=== PATIENT | male | born 1945 | race Caucasian/White ===

== ENCOUNTER 2022-11-19 11:39 | Outpatient (OUT) | payer MEDICARE, SELFPAY ==
[2022-11-19 12:16] LABS: Basophils Absolute Auto 0.1 10^3/uL (0.0-0.1); Basophils Percent Auto 0.8 % (0.2-2.0); Eosinophils Absolute Auto 0.8 10^3/uL (0.0-0.7); Eosinophils Percent Auto 12.2 % (0.9-7.0); Hemoglobin 13.9 g/dL (14.0-18.0); Immature Granulocytes Abs Auto 0.03 10^3/uL (0.00-0.03); Immature Granulocytes Pct Auto 0.5 % (0.0-0.5); Lymphocytes Absolute Auto 1.7 10^3/uL (1.2-3.8); Lymphocytes Percent Auto 25.5 % (20.5-60.0); Mean Corpuscular HGB Conc 33.9 g/dL (29.9-35.2); Mean Corpuscular Hemoglobin 32.2 pg (25.9-34.0); Mean Corpuscular Volume 94.9 fL (80.0-94.0); Mean Platelet Volume 9.2 fL (9.5-13.5); Monocytes Absolute Auto 0.6 10^3/uL (0.3-0.8); Neutrophils Absolute Auto 3.5 10^3/uL (1.4-6.5); Platelet Count 194 10^3/uL (150-450); Red Blood Count 4.32 10^6/uL (4.70-6.10); White Blood Count 6.7 10^3/uL (4.0-11.0)
[2022-11-19 13:27] LABS: Estimated Average Glucose 103 mg/dL; Glycohemoglobin A1C 5.2 % (4.5-6.2)
[2022-11-19 13:34] LABS: Alanine Aminotransferase 17 U/L (16-63); Albumin Globulin Ratio 1.1; Albumin Level 3.7 g/dL (3.4-5.0); Alkaline Phosphatase 42 U/L (46-116); Anion Gap 8.2; Aspartate Amino Transferase 15 U/L (15-37); BUN Creatinine Ratio 18.3; Bilirubin Total 0.7 mg/dL (0.2-1.0); Calcium 9.9 mg/dL (8.5-10.1); Carbon Dioxide 32.7 mmol/L (21.0-32.0); Chloride 106 mmol/L (98-107); Chol HDL Ratio 3.3; Cholesterol 164 mg/dL (<=200); Estimated GFR (African America >60 (>=60); Estimated GFR (Non-African Ame >60 (>=60); Free T3 2.34 pg/mL (2.18-3.98); Globulin 3.3 g/dL; Glucose 100 mg/dL (74-106); HDL Cholesterol 50 mg/dL (40-60); Potassium 3.9 mmol/L (3.5-5.1); Sodium 143 mmol/L (136-145); Thyroid Stimulating Hormone 0.999 uIU/mL (0.358-3.740); Triglycerides 90 mg/dL (<=150)
== END 2022-11-19 11:40 | disposition home or self-care (01) ==
PROVIDERS: PCP Family Medicine; Visit Provider Family Medicine
DX: J44.9 Chronic obstructive pulmonary disease, unspecified (principal); I10 Essential (primary) hypertension; E78.00 Pure hypercholesterolemia, unspecified; E78.5 Hyperlipidemia, unspecified; R73.09 Other abnormal glucose
CPT/HCPCS: 36415; 80053; 80061; 83036; 84436; 84443; 84481; 85025

== ENCOUNTER 2023-03-24 08:38 | Outpatient (OUT) | payer MEDICARE, SELFPAY ==
--- NOTE | 2023-03-24 08:41 | CT_ITS ---
[address] [address] Patient Name: JM BARROW MRN: [id number] date: 1945 Sex: M Assigned Patient Location: CT Current Patient Location: CT Accession/Order Number: [id number] Exam Date: 03/24/2023 08:47 Report Date: 03/24/2023 10:02 At the request of: ARLINE OROSCO Procedure: CT chest wo con EXAMINATION: CT chest wo con HISTORY: Bronchiectasis With Exacerbation J47.1 COMPARISON: CT chest 03/18/2022 TECHNIQUE: Multi-planar CT images were obtained without and/or with IV contrast as indicated by examination type. Axial, Coronal, and Sagittal images. Dose reduction techniques were achieved by using automated exposure control and/or adjustment of mA and/or kV according to patient size and/or use of iterative reconstruction technique. FINDINGS: LUNGS: Mild to moderate emphysematous changes and borderline bronchiectasis. A few calcified nodules, largest is left upper lobe, 6 mm. No acute infiltrates. PLEURA: No mass, effusion, or pneumothorax. VASCULATURE: No abnormality. MARISA: No mass or adenopathy. MEDIASTINUM: No mass or adenopathy. CARDIAC: No enlargement, pericardial thickening, or significant calcification. AORTA: No aneurysm or dissection. CHEST WALL: No mass or axillary adenopathy. BONES: Stable kyphosis and mild anterior wedging of several midthoracic vertebral bodies. No acute fractures. LIMITED ABDOMEN: Stable small right hepatic lobe cyst. Limited images of the upper abdomen. OTHER: Negative. CT/CT chest wo con IMPRESSION: 1. Slight progression of chronic emphysematous changes. No acute infiltrates. 2. Stable nodules favoring chronic granulomatous disease. Electronically authenticated by: BANDAR CHAMBERS Date: 03/24/2023 10:02
--- NOTE | 2023-03-24 08:42 | US_ITS ---
The [address] [address] Patient Name: JM BARROW MRN: [id number] date: 1945 Sex: M Assigned Patient Location: CT Current Patient Location: CT Accession/Order Number: [id number] Exam Date: 03/24/2023 08:45 Report Date: 03/24/2023 10:08 At the request of: ARLINE OROSCO Procedure: US abdominal aortic aneurysm EXAM: US abdominal aortic aneurysm HISTORY: . Abdominal Aortic Aneurysm I71.40 . COMPARISON: None. TECHNIQUE: Bermudez scale and color imaging was performed FINDINGS: Scanning of the aorta demonstrates the proximal aorta to measure 1.4 x 1.6 cm, mid aorta 1.1 x 1.3 cm, and the distal aorta 3.5 x 3.5 cm. There is color flow throughout the aorta. Right iliac measures 1 cm and left iliac 0.8 cm. US/US abdominal aortic aneurysm IMPRESSION: 1. Slight dilatation of the distal abdominal aorta which measures 3.5 x 3.5 cm. 2. Early atherosclerotic changes of the abdominal aorta. Electronically authenticated by: SKINNY ELDER Date: 03/24/2023 10:08
== END 2023-03-24 08:39 | disposition home or self-care (01) ==
LOC: CT 08:39
PROVIDERS: PCP Family Medicine; Visit Provider Family Medicine
DX: J47.1 Bronchiectasis with (acute) exacerbation (principal); I71.40 Abdominal aortic aneurysm, without rupture, unspecified
CPT/HCPCS: 71250; 76775

== ENCOUNTER 2023-03-31 11:09 | Outpatient (REF) | payer MEDICARE, SELFPAY | END 2023-03-31 11:10 | disposition home or self-care (01) | LOC: LAB 11:09 | PROVIDERS: PCP Family Medicine; Visit Provider Family Medicine | DX: K62.5 Hemorrhage of anus and rectum (principal); Z12.12 Encounter for screening for malignant neoplasm of rectum | CPT/HCPCS: 87045; 87046; 87427; 87493 ==

== ENCOUNTER 2023-04-25 16:46 | Outpatient (OUT) | payer MEDICARE, SELFPAY ==
[2023-04-25 17:10] LABS: Anion Gap 13.8; BUN Creatinine Ratio 25.9; Calcium 9.5 mg/dL (8.5-10.1); Carbon Dioxide 30.2 mmol/L (21.0-32.0); Chloride 104 mmol/L (98-107); Estimated GFR (African America >60 (>=60); Estimated GFR (Non-African Ame >60 (>=60); Glucose 120 mg/dL (74-106); Magnesium 1.9 mg/dL (1.8-2.4); Sodium 144 mmol/L (136-145)
== END 2023-04-25 16:47 | disposition home or self-care (01) ==
LOC: LAB 16:48
PROVIDERS: PCP Family Medicine; Visit Provider Family Medicine
DX: R25.2 Cramp and spasm (principal); I10 Essential (primary) hypertension
CPT/HCPCS: 36415; 80048; 83735

== ENCOUNTER 2023-05-16 12:49 | Emergency (ER) | payer MEDICARE, SELFPAY ==
[2023-05-16 13:02] VITALS: BP 98/64; PULSE 81; RESP 24; TEMP 36.7; O2SAT 100; BMI 25.1
--- OUTSIDE RECORDS SUMMARY | 2023-05-16 13:06 | XMS_ITS | CCD ---
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 Name Role Phone PHYSICIAN, DEFAULT Unavailable Unavailable PHYSICIAN, DEFAULT Unavailable Unavailable Arline Orosco MD Primary Care Provider [phone] Dawna Patrick Unavailable [phone] Arline Orosco MD Primary Care Provider [phone] Dawna Patrick Unavailable Arline Orosco MD Primary Care Provider [phone] Dawna Patrick Unavailable Jose Francisco Broussard MD Unavailable [place] SOMMERSDRILL PRESS OPERATOR, Helen Unavailable Etta PROCTOR, Umer Unavailable Arline Orosco MD Primary Care Provider [phone] LEROY SHAW Admitting Unavailable YAMILALEROY VELIZ Consulting Unavailable LEROY SHAW Attending Unavailable KWESI ., DR NUNN Primary Care Unavailable HOY ., DR NUNN Consulting Unavailable HOY ., DR NUNN Attending Unavailable HOY ., DR NUNN Admitting Unavailable HOY ., DR NUNN Primary Care Unavailable JESSICA ., DR ACKERMAN Consulting Unavailable RICHY ROUSSEAU Consulting Unavailable KWESI ., DR NUNN Primary Care Unavailable MEGAN, DR DONTE Rocha Attending Unavailable ENGELER, DR DONTE Rocha Admitting Unavailable MEGAN, DR DONTE Rocha Consulting Unavailable KWESI ., DR NUNN Primary Care Unavailable TWANY ., DR NUNN Consulting Unavailable HOY ., DR NUNN Admitting Unavailable HOY ., DR NUNN Attending Unavailable HOY ., DR NUNN Primary Care Unavailable HOY ., DR NUNN Consulting Unavailable HOY ., DR NUNN Attending Unavailable HOY ., DR NUNN Admitting Unavailable YAMILA, LEROY Consulting Unavailable YAMILA, LEROY Attending Unavailable YAMILA, LEROY Admitting Unavailable HOY ., DR NUNN Primary Care Unavailable HOY ., DR NUNN Consulting Unavailable HOY ., DR NUNN Attending Unavailable HOY ., DR NUNN Primary Care Unavailable HOY ., DR NUNN Admitting Unavailable WEST, DR SKINNY Hoyt Consulting Unavailable HOY ., DR NUNN Consulting Unavailable HOY ., DR NUNN Attending Unavailable HOY ., DR NUNN Primary Care Unavailable HOY ., DR NUNN Admitting Unavailable WEST, DR SKINNY Hoyt Consulting Unavailable HOY ., DR NUNN Consulting Unavailable HOY ., DR NUNN Attending Unavailable HOY ., DR NUNN Primary Care Unavailable HOY ., DR NUNN Admitting Unavailable RYLEE LOPEZ Attending Unavailable JOHN, RYLEE Admitting Unavailable RYLEE LOPEZ Consulting Unavailable HOY ., DR NUNN Primary Care Unavailable JOHN, RYLEE Consulting Unavailable DIAB ., SAGE Attending Unavailable DIAB ., SAGE Admitting Unavailable HOY ., DR NUNN Primary Care Unavailable RONDA ALBRIGHT Consulting Unavailable DIAB ., SAGE Consulting Unavailable ARLINE OROSCO Primary Care Unavailable DONTE GUZMAN Referring Unavaila ble Arline Orosco Unavailable Unavailable Unavailable MD Arline Orosco Primary Care Provider [phone] MD Clarence Gregory Attending Provider Baldo Gifford Referring Unavailable Dr. Arline Orosco Primary Care Unavail able Baldo Gifford Attending Unavailable Baldo Gifford Referring Unavailable Dr. Arline Orosco Primary Care Unavail able Baldo Gifford Attending Unavailable Etta RN, Umer Unavailable Arline Orosco Primary Care Unavailable Clarence Gregory Admitting Unavailable Clarence Gregory Attending Unavailable Baldo Gifford Attending Unavail able Arline Orosco Primary Care Unavailable Baldo Gifford Admitting Unavail able BARB KIRAN Referring Unavailable ARLINE OROSCO Primary Care Unavailable Ace GUZMAN Attending Unavailable ARLINE OROSCO Primary Care Unavailable MANNY MEZA Attending Unavailable Ace GUZMAN Referring Unavailable HOY, ARLINE M Primary Care Unavailable HOY, ARLINE M Primary Care Unavailable HOY, ARLINE M Primary Care Unavailable JAMES ROBB Referring Unavailable HOY, ARLINE M Primary Care Unavailable HOY, ARLINE M Primary Care Unavailable JOSE FRANCISCO BROUSSARD Attending Unavailable HOY, ARLINE M Primary Care Unavailable JOSE FRANCISCO BROUSSARD Attending Unavailable HOY, ARLINE M Primary Care Unavailable Ace GUZMAN Referring Unavailable HOY, ARLINE M Primary Care Unavailable Ace GUZMAN Referring Unavailable HOY, ARLINE M Primary Care Unavailable Ace GUZMAN Attending Unavailable HOY, ARLINE M Primary Care Unavailable Ace GUZMAN Referring Unavailable HOY, ARLINE M Primary Care Unavailable JOSE FRANCISCO BROUSSARD Attending Unavailable HOY, ARLINE M Primary Care Unavailable HOY, ARLINE M Primary Care Unavailable BARB KIRAN Attending Unavailable Ace GUZMAN Referring Unavailable HOY, ARLINE M Primary Care Unavailable JOSE FRANCISCO BROUSSARD Referring Unavailable HOY, ARLINE M Primary Care Unavailable Ace GUZMAN Attending Unavailable HOY, ARLINE M Primary Care Unavailable HOY, ARLINE M Primary Care Unavailable LOLA ALLEN Attending Unavaila ble HOY, ARLINE M Primary Care Unavailable Ace GUZMAN Attending Unavailable HOY, ARLINE M Primary Care Unavailable JOSE FRANCISCO BROUSSARD Referring Unavailable HOY, ARLINE M Primary Care Unavailable JOSE FRANCISCO BROUSSARD Attending Unavailable HOY, ARLINE M Primary Care Unavailable JOSE FRANCISCO BROUSSARD Referring Unavailable HOY, ARLINE M Primary Care Unavailable HOY, ARLINE M Primary Care Unavailable MANNY MEZA Referring Unavailable HOY, ARLINE M Primary Care Unavailable JAMES ROBB Attending Unavailable HOY, ARLINE M Primary Care Unavailable HOY, ARLINE M Primary Care Unavailable JOSE FRANCISCO BROUSSARD Referring Unavailable HOY, ARLINE M Primary Care Unavailable JOSE FRANCISCO BROUSSARD Attending Unavailable Allergies Allergy Classification Reported Allergen(s) Allergy Type Date of Onset Reaction(s) Facility (20 sources) Chlorhexidine; Translations: [CHLORHEXIDINE] Drug Allergy 4 Rash [facility] (20 sources) hibaclens [Other] Propensity to adverse reactions 2 Rash [facility] Work Phone: (1 source) Chlorhexidine Drug Allergy 4 [facility] Repository (3 sources) OTHER; Translations: [OTHER] Propensity to adverse reactions (disorder) 2 [facility] Other [place] [facility] (1 source) Chlorhexidine Drug Allergy 3 [facility] Repository Medications Current Medications Medication Drug Class(es) Dates Sig (Normalized) Sig (Original) aspirin 81 mg delayed release oral tablet (20 sources) Platelet Aggregation Inhibitor, Nonsteroidal Anti-inflammatory Drug Start: 09-14-2018 Aspirin (Kimberly Low Dose Aspirin) 81 mg Tablet,Delayed Release (Dr/Ec) Active 81 MG PO Daily September 14, 2018 12:00am Comment on above: Take 81 mg by mouth once daily. Calcium Carb And Citrate-Vitd3 (1 source) Start: 09-14-2018 take 1 tablet by mouth once daily Calcium Carb And Citrate-Vitd3 Active 1 TAB PO Daily September 14, 2018 12:00am cetirizine hydrochloride 10 mg oral capsule (20 sources) Histamine-1 Receptor Antagonist Start: 09-14-2018 take 1 capsule by mouth once daily Cetirizine (Zyrtec) 10 mg Capsule Active 1 CAP PO Daily September 14, 2018 12:00am take 1 tablet by mouth at bedtim e ZyrTEC Allergy 10 MG Oral Tablet TAKE 1 TABLET AT BEDTIME. Quantity: 0 Refills: 0 Ordered: 01-Sep-2022 DO Active Comment on above: Take by mouth. cholecalciferol 0.05 mg oral capsule (10 sources) Vitamin D Start: 09-15-19 take 1 capsule by mouth once daily Cholecalciferol (Vitamin D3) (Vitamin D3) 2,000 unit Capsule Active 2000 UNIT PO Daily September 14, 2018 12:00am take 1 tablet by mouth once lenard y Vitamin D3 50 MCG (2000 UT) Oral Tablet Take 1 tablet daily Quantity: 0 Refills: 0 Ordered: 01-Sep-2022 DO Active 1 ml denosumab 60 mg/ml prefilled syringe (20 sources) RANK Ligand Inhibitor Start: 09-14-2018 Denosuma b (Prolia) 60 mg/mL Syringe Active 60 MG SUBCUT EVERY 6 MONTHS September 14, 2018 12:00am inject 60 mg by subc utaneous injection once denosumab (PROLIA) 60 mg/mL Inject 60 mg subcutaneously one time only. 0 Active Comment on above: Inject 60 mg subcuta neously one time only. docusate sodium 100 mg oral capsule (20 sources) Start: 09-14-2018 take 1 capsule by mouth twice daily Docusate Sodium (Colace) 100 mg Capsule Active 100 MG PO Twice daily September 14, 2018 12:00am Docusate Sodium 100 mg tab Take 2 tablets by mouth. 0 Active Docusate Sodium 100 MG TABS TAKE 1 TABLET DAILY DIRECTED AT BEDTIME Quantity: 0 Refills: 0 Ordered: 01-Sep-2022 DO Active Comment on above: Take 2 tablets by mo [facility]. doxazosin 2 mg oral tablet (20 sources) alpha-Adrenergic Gabi Start: 09-14-2018 take 1 tablet by mouth once daily Doxazosin (Cardura) 2 mg Tablet Active 2 MG PO Daily September 14, 2018 12:00am doxazosin mesyla te (CARDURA ORAL) Take 6 mg by mouth. 0 Active take 3 tablets by mouth once kandy ly Cardura 2 MG Oral Tablet TAKE 3 TABLET Daily Quantity: 0 Refills: 0 Ordered: 01-Sep-2022 DO Active doxazosin mesyla te (CARDURA ORAL) Take 0.5 mg by mouth. 0 Active Comment on above: Take 0.5 mg by mouth . Take 6 mg by mouth. escitalopram 20 mg oral tablet (20 sources) Serotonin Reuptake Inhibitor Start: 9 take 10 mg by mouth once daily Escitalopram Oxalate (Lexapro) 20 mg Tablet Active 10 MG PO Daily September 14, 2018 12:00am take 1 tablet by mouth once lenard y escitalopram oxalate (LEXAPRO) 20 mg tablet Take 20 mg by mouth once daily. 0 Active Comment on above: Take 20 mg by mouth once daily. 30 actuat fluticasone furoate 0.1 mg/actuat / vilanterol 0.025 mg/actuat dry powder inhaler (20 sources) Corticosteroid, beta2-Adrenergic Agonist Start: 2018 Fluticasone Furoate-Vilanterol (Breo Ellipta) 100-25 mcg/dose Blister With Device Active 1 INH INHALATION Daily September 14, 2018 12:00am Comment on above: Inhale 1 Inhalation as instructed once daily. hydroCHLOROthiazide 25 mg oral tablet (16 sources) Thiazide Diuretic Start: 2018 End: 2022 take 25 mg by mouth once daily Hydrochlorothiazide Active 25 MG PO Daily September 14, 2018 12:00am Comment on above: Take 25 mg by mouth once daily. 1.5 ml leuprolide acetate 30 mg/ml prefilled syringe (20 sources) Gonadotropin Releasing Hormone Receptor Agonist Start: 2018 Leuprolide Acetate (6 Month) (Lupron Depot (6 Month)) 45 mg Syringe Kit Active 45 MG IM EVERY 6 MONTHS September 14, 2018 12:00am inject 45 mg by intr amuscular injection once leuprolide, 6 month, (LUPRON DEPOT, 6 MONTH,) sykt IM syringe kit Inject 45 mg intramuscularly one time only. 0 Active Lupron SOLN 1 in jection every 6 months Quantity: 0 Refills: 0 Ordered: 01-Sep-2022 DO Active Comment on above: Inject 45 mg intramu scularly one time only. Multivitamin (Multiple Vitamins) Tablet (1 source) Start: 09-15-19 take 1 tablet by mouth once daily Multivitamin (Multiple Vitamins) Tablet Active 1 TAB PO Daily September 14, 2018 12:00am simethicone 125 mg oral tablet (20 sources) Start: 09-15-19 take 125 mg by mouth once daily Simethicone Active 125 MG PO Daily September 14, 2018 12:00am Simethicone 125 mg cap Take by mouth. 0 Active Comment on above: Take by mouth. tamsulosin hydrochloride 0.4 mg oral capsule (20 sources) alpha-Adrenergic Gabi Start: 09-14-2018 take 1 capsule by mouth once daily Tamsulosin (Flomax) 0.4 mg Capsule Active 0.4 MG PO Daily September 14, 2018 12:00am take 2 capsules by m outh once daily at bedtime Tamsulosin HCl - 0.4 MG Oral Capsule JAYCEE E 2 CAPSULE Daily At Bedtime Quantity: 180 Refills: 0 Ordered: 01-Sep-2022 DO Active Comment on above: Take 0.4 mg by mouth once daily. 2 daily traMADol hydrochloride 50 mg oral tablet (1 source) Opioid Agonist Start: 10-02-2018 Tramadol Active 50 MG PO every 6 to 8 hours 01 12October 02, 2018 12:00am traZODone hydrochloride 50 mg oral tablet (20 sources) Serotonin Reuptake Inhibitor Start: 09-14-2018 take 50 mg by mouth once daily Trazodone Active 50 MG PO Daily September 14, 2018 12:00am Comment on above: Take 50 mg by mouth daily at bedtime. vitamin e 90 mg oral capsule (20 sources) Start: 09-14-2018 take 200 [IU] by mouth once daily Vitamin E Active 200 UNIT PO Daily September 14, 2018 12:00am take 1 capsule by mouth once kandy ly Vitamin E, dl, acetate, (VITAMIN E) 400 unit capsule Take 400 Units by mouth once daily. 0 Active take 1 tablet by mouth once lenard y Vitamin E 400 UNIT Oral Tablet TAKE 1 TABLET DAILY. Quantity: 0 Refills: 0 Ordered: 01-Sep-2022 DO Active take 1 capsule by mouth once kandy ly Vitamin E, dl, acetate, (VITAMIN E) 400 unit capsule Take 400 Units by mouth once daily. 0 Active Comment on above: Take 400 Units by [facility] once daily. Completed/Discontinued Medications Medication Drug Class(es) Dates Sig (Normalized) Sig (Original) Acetaminophen / HYDROcodone (7 sources) Opioid Agonist Vicodin TABS JAYCEE E 1 TO 2 TABLETS EVERY 4 TO 6 HOURS NEEDED FOR PAIN. Quantity: 0 Refills: 0 Ordered: 01-Sep-2022 DO Active acetylcholine 10% solution - [facility] (1 source) Start: 03-27-2023 End: 03-27-2023 acetylcholine 10% solution - [facility] [id number] actuat albuterol 0.09 mg/actuat metered dose inhaler (9 sources) beta2-Adrenergi c Agonist take 2 puff(s) by mouth every four hours as needed Albuterol Sulfate HFA 108 (90 Base) MCG/ACT Inhalation Aerosol Solution INHALE 2 PUFFS BY MOUTH EVERY 4 HOURS NEEDED Quantity: 1 Refills: 0 Ordered: 01-Sep-2022 DO Active ascorbic acid 500 mg oral tablet (20 sources) Vitamin C take 1 tablet by mouth once daily ascorbic acid, vitamin C, (VITAMIN C) 500 mg tablet Take 500 mg by mouth once daily. 0 Active Comment on above: Take 500 mg by mouth once daily. bisacodyl 5 mg delayed release oral tablet (9 sources) Stimulant Laxative take 1 tablet by mouth once daily Dulcolax [place] Laxative 5 MG Oral Tablet Delayed Release TAKE 1-2 TABLET DAILY AT BEDTIME NEEDED. Quantity: 0 Refills: 0 Ordered: 01-Sep-2022 DO Active calcium carbonate 625 mg / cholecalciferol 125 unt oral tablet (20 sources) Vitamin D take 1 tablet by mouth once daily calcium-cholecalcife rol, D3, (OSCAL+D 250) 250 mg-3.125 mcg (125 unit) per tablet Take 1 tablet by mouth once daily. 0 Active Comment on above: Take 1 tablet by shon th once daily. Calcium Citrate (9 sources) Calcium Citrate + D TABS Take 1 tablet daily Quantity: 0 Refills: 0 Ordered: 01-Sep-2022 DO Active chlorthalidone 25 mg oral tablet (16 sources) Thiazide-like Diuretic Start: 10-11-2022 take 0.5 tablet by mouth once daily Chlorthalidone 25 MG Oral Tablet take 1/2 tablet daily Quantity: 45 Refills: 3 Ordered: 11-Oct-2022 Baldo Gifford MD Start : 11-Oct-2022 Active new dose Start: 09-01-2022 take 1 tablet by shon th once daily Chlorthalidone 25 MG Oral Tablet TAKE 1 TABLET DAILY. Quantity: 90 Refills: 3 Ordered: 01-Sep-2022 Baldo Gifford MD Start : 01-Sep-2022 Active Comment on above: Take 25 mg by mouth once daily. cholecalciferol 5000 unt / folic acid 1 mg oral tablet (14 sources) Vitamin D vitamin D3-folic acid 125 mcg (5,000 unit)-1 mg tab Take by mouth. 0 Active Comment on above: Take by mouth. cloNIDine hydrochloride 0.1 mg oral tablet (8 sources) Central alpha-2 Adrenergic Agonist End: 11-25-19 take 1 tablet by mouth twice daily as needed cloNIDine HCl (CATAPRES) 0.1 mg tablet Take 0.1 mg by mouth twice daily. Prn systolic >160 0 11/24/2022 Discontinued Comment on above: Take 0.1 mg by mouth twice daily. Prn systolic >160 enzalutamide 40 mg oral tablet (17 sources) Androgen Receptor Inhibitor Start: 06-22-19 23 take 4 tablets by mouth once daily enzalutamide (XTANDI) 40 mg tablet Take 4 tablets (160 mg) by mouth once daily. 60 tablet 0 06/22/2022 Active Start: 06-20-2022 End: 06-20-2022 take 2 tablets by mouth once daily enzalutamide (XTANDI) 80 mg tablet Take 2 tablets (160 mg) by mouth once daily. 60 tablet 3 06/20/2022 Active Comment on above: Take 2 tablets (160 mg) by mouth once daily. Take 4 tablets (160 mg) by mouth once daily. irbesartan 300 mg oral tablet (18 sources) Angiotensin 2 Receptor Gabi Start: 3 End: 3 take 1 tablet by mouth once daily irbesartan (AVAPRO) 300 mg tablet Take 300 mg by mouth once daily. 0 08/01/2022 11/24/2022 Discontinued take 1 tablet by shon th once daily at bedtime irbesartan (AVAPRO) 75 mg tablet Take 75 mg by mouth daily at bedtime. 0 Active Comment on above: Take 300 mg by mouth once daily. Take 75 mg by mouth daily at bedtime. iv contrast (will be provided with radiology test) (1 source) Start: 06-07-19 End: 06-08-19 iv contrast (will be provided with radiology test) MRI Prostate Inject, intravenously, once for 1 dose. No IV access, insert saline lock prior to the beginning of sedation, infusion, injection of imaging exam. Discontinue saline lock post exam. If Pt. has a central line or IVAD, may access for administration according to line specific nursing protocol. Once exam is complete flush line and de-access according to line specific nursing protocol in the MR contrast administration guidelines link. 1 Each 0 06/07/2022 06/08/2022 Comment on above: MRI Prostate Inject, intravenously, once for 1 dose. No IV access, insert saline lock prior to the beginning of sedation, infusion, injection of imaging exam. Discontinue saline lock post exam. If Pt. has a central line or IVAD, may access for administration according to line specific nursing protocol. Once exam is complete flush line and de-access according to line specific nursing protocol in the MR contrast administration guidelines link. levoFLOXacin 500 mg oral tablet (3 sources) Quinolone Antimicrobial Start: 05-24-19 take 1 tablet by mouth once daily levoFLOXacin (LEVAQUIN) 500 mg tablet Take 500 mg by mouth once daily. 0 05/24/2022 Active Comment on above: Take 500 mg by mouth once daily. 24 hr metoprolol succinate 25 mg extended release oral tablet (10 sources) beta-Adrenergic Gabi End: 09-24-19 23 take 1 tablet by mouth once daily metoprolol succinate ER (TOPROL XL) 25 mg 24 hr tablet Take 25 mg by mouth once daily. 0 Active Comment on above: Take 25 mg by mouth once daily. Multi Vitamin TABS (9 sources) Multi Vitamin TA BS TAKE 1 TABLET DAILY. Quantity: 0 Refills: 0 Ordered: 01-Sep-2022 DO Active MULTI-VITAMIN ORAL (20 sources) MULTI-VITAMIN OR AL Take by mouth. 0 Active Comment on above: Take by mouth. naproxen sodium 220 mg oral tablet (20 sources) Nonsteroidal Anti-inflammatory Drug End: 09-24-19 23 take 1 tablet by mouth twice daily as needed Aleve 220 MG Oral Tablet TAKE 1 TABLET TWICE DAILY NEEDED. Quantity: 0 Refills: 0 Ordered: 01-Sep-2022 DO Active Comment on above: Take 220 mg by mouth twice daily with meals. oxybutynin chloride 5 mg oral tablet (20 sources) Cholinergic Muscarinic Antagonist take 1 tablet by mouth twice daily oxybutynin (DITROPAN) 5 mg tablet Take 5 mg by mouth twice daily. 0 Active take 1 tablet by mouth twice kandy ly oxybutynin XL (DITROPAN XL) 5 mg 24 hr tablet Take 5 mg by mouth twice daily. 0 Active Comment on above: Take 5 mg by mouth t wice daily. pantoprazole 40 mg delayed release oral tablet (20 sources) Proton Pump Inhibitor Start: 2 take 1 tablet by mouth once daily pantoprazole DR (PROTONIX) 40 mg tablet Take 40 mg by mouth once daily. 0 04/30/2022 Active Comment on above: Take 40 mg by mouth once daily. simvastatin 10 mg oral tablet (5 sources) HMG-CoA Reductase Inhibitor take 1 tablet by mouth once daily at bedtime simvastatin (ZOCOR) 10 mg tablet Take 10 mg by mouth daily at bedtime. 0 Active Comment on above: Take 10 mg by mouth daily at bedtime. 24 hr tolterodine tartrate 4 mg extended release oral capsule (4 sources) Cholinergic Muscarinic Antagonist Start: 9 tolterodine ER (DETROL LA) 4 mg 24 hr capsule 4 mg. 0 09/14/2018 Active Start: 09-14-2018 take 1 capsule by [facility] once daily Tolterodine (Detrol La) 4 mg Capsule,Extended Release 24hr Active 4 MG PO Daily September 14, 2018 12:00am Comment on above: 4 mg. Problems Active Problems Problem Classification Problem Date Documented Da te Episodic/Chronic Blindness and vision defects (6 sources) Diplopia; Translations: [Diplopia] Onset: 07-31-2022 Episodic Calculus of urinary tract (1 source) Personal history of urinary calculi; Translations: [PERSONAL HISTORY OF URINARY CALCULI] Onset: 08-04-2022 Episodic Cancer of bladder (1 source) Personal history of malignant neoplasm of bladder; Translations: [PERSONAL HX MALIG NEOPLASM BLADDER] Onset: 08-04-2022 Episodic Cancer of prostate (20 sources) Malignant tumor of prostate; Translations: [Malignant neoplasm of prostate] Onset: 06-02-2011 06-02-2011 Chronic Cardiac dysrhythmias (1 source) Bradycardia, unspecified; Translations: [BRADYCARDIA UNSPECIFIED] Onset: 08-02-2022 Episodic Cataract (2 sources) Bilateral pseudophakia; Translations: [Presence of intraocular lens] Chronic Chronic obstructive pulmonary disease and bronchiectasis (20 sources) Chronic obstructive lung disease; Translations: [Chronic obstructive pulmonary disease, unspecified] Onset: 12-11-2017 06-23-2021 Chronic Disorders of lipid metabolism (20 sources) Mixed hyperlipidemia; Translations: [Mixed hyperlipidemia] Onset: 12-12-2019 06-23-2021 Chronic Essential hypertension (20 sources) Hypertensive disorder; Translations: [Essential (primary) hypertension] Onset: 03-28-2022 06-23-2021 Chronic Headache; including migraine (3 sources) Headache; including migraine; Translations: [HEADACHE UNSPECIFIED] Onset: 08-02-2022 Hypertension with complications and secondary hypertension (1 source) Hypertensive urgency; Translations: [HYPERTENSIVE URGENCY] Onset: 08-04-2022 Chronic Mood disorders (1 source) Mood disorders; Translations: [DEPRESSION UNSPECIFIED] Onset: 08-04-2022 Nutritional deficiencies (1 source) Vitamin D deficiency, unspecified; Translations: [VITAMIN D DEFICIENCY UNSPECIFIED] Onset: 03-28-2022 Chronic Other aftercare (1 source) residential (current) use of aspirin; Translations: [STRUCTURAL MANAGER CURRENT USE OF ASPIRIN] Onset: 08-04-2022 Episodic Other aftercare (1 source) Other [facility] (current[facility] drug therapy; Translations: [OTH STRUCTURAL MANAGER CURRENT DRUG THERAPY] Onset: 08-04-2022 Episodic Other bone disease and musculoskeletal deformities (5 sources) Other specified disorders of bone density and structure, unspecified site; Translations: [OT D/O BONE DEN STRUCT UNS SITE] Onset: 05-17-2022 Episodic Other circulatory disease (1 source) Orthostatic hypotension; Translations: [Orthostatic hypotension] Onset: 02-15-2023 Episodic Other circulatory disease (3 sources) Orthostatic hypotension; Translations: [Orthostatic hypotension] 03-27-2023 Episodic Other eye disorders (1 source) Bilateral posterior vitreous detachment; Translations: [Vitreous degeneration, bilateral] Chronic Other eye disorders (1 source) Tear film insufficiency; Translations: [Dry eye syndrome of bilateral lacrimal glands] Episodic Other screening for suspected conditions (not mental disorders or infectious disease) (1 source) Patient encounter status; Translations: [Encounter for screening for other disorder] 12-07-2022 Episodic Other upper respiratory disease (1 source) Nasal congestion; Translations: [NASAL CONGESTION] Onset: 05-20-2022 Episodic Residual codes; unclassified (9 sources) Body mass index 20-24 - normal; Translations: [Body Mass Index between 19-24, adult] Episodic Substance-related disorders (10 sources) Nicotine dependence, cigarettes, uncomplicated; Translations: [Smokes tobacco daily] Onset: 08-04-2022 Chronic Comment on above: 1 PPD; Transient cerebral ischemia (1 source) Transient cerebral ischemic attack, unspecified; Translations: [TRANS CERBRAL ISCHEMIC ATTACK UNS] Onset: 08-02-2022 Chronic Unclassified (4 sources) CONTACT W/AND (SUSP) EXPOS COVID-19; Translations: [CONTACT W/AND (SUSP) EXPOS COVID-19] Onset: 05-20-2022 Unclassified (4 sources) COUGH, UNSPECIFIED; Translations: [COUGH, UNSPECIFIED] Onset: 11-21-2021 Unclassified (1 source) Occlusion and stenosis of bilateral carotid arteries; Translations: [Occlusion and stenosis of bilateral carotid arteries] Onset: 09-02-2022 Past or Other Problems Problem Classification Problem Date Documented Da te Episodic/Chronic Cancer of prostate (20 sources) History of malignant neoplasm of prostate; Translations: [Personal history of malignant neoplasm of prostate] Onset: 12-27-2013 12-27-2013 Episodic Diabetes mellitus without complication (1 source) Other abnormal glucose; Translations: [OTHER ABNORMAL GLUCOSE] Onset: 03-28-2022 Episodic Genitourinary symptoms and ill-defined conditions (20 sources) Martinez hematuria; Translations: [Gross hematuria] Onset: 06-02-2011 06-02-2011 Episodic Nonspecific chest pain (4 sources) Chest pain, unspecified; Translations: [CHEST PAIN UNSPECIFIED] Onset: 03-24-2022 Episodic Other bone disease and musculoskeletal deformities (13 sources) Osteopenia; Translations: [Other specified disorders of bone density and structure, multiple sites] Onset: 09-22-2022 Episodic Other eye disorders (20 sources) Hypertropia of right eye; Translations: [Vertical strabismus, right eye] Onset: 06-23-2021 Episodic Other lower respiratory disease (1 source) Other nonspecific abnormal finding of lung field; Translations: [OTH NONSPECIFIC ABN FIND LNG FIELD] Onset: 03-24-2022 Episodic Unclassified (1 source) CONTACT W/AND (SUSP) EXPOS COVID-19; Translations: [CONTACT W/AND (SUSP) EXPOS COVID-19] Onset: 05-17-2022 Unclassified (1 source) COUGH, UNSPECIFIED; Translations: [COUGH, UNSPECIFIED] Onset: 11-17-2021 Results Test Name Value Interpretation Reference Range Facility NM PET/CT PROSTATE WBon 04-15 MI PET/CT PROSTATE WB * * *Final Report* * * DATE OF EXAM: May 12 2023 3:06PM NRN 0093 - MI PET/CT PROSTATE WB / PROCEDURE REASON: Malignant neoplasm of prostate (HCC) * * * * Physician Interpretation * * * * RESULT: Ga-[id number] PSMA WHOLE BODY PET/CT SCAN HISTORY: Prostate cancer recurrence PREVIOUS COMPARISON PET/CT STUDY: 06/02/2022 OTHER COMPARISON: MRI 08/15/2022, CT abdomen and pelvis 07/09/2013 TECHNIQUE: 10.8 mCi of [id number]. The PET imaging was obtained between skull base through proximal thigh approximately 60 minutes after injection. Non-contrast low-dose CT was also performed for attenuation correction and localization purposes. CT Dose-Length Product (DLP): 212mGy*cm. CT Dose Reduction Employed: Yes RESULTS: HEAD AND NECK: Lymph nodes: No lymphadenopathy with abnormal tracer uptake. Other: Physiologic activity in the salivary and lacrimal glands. No other lesions with abnormal tracer uptake. There is chronic opacification of the right sphenoid sinus, unchanged. CHEST: Lymph nodes: No lymph nodes with abnormal tracer uptake. Lungs and airways: No nodules or masses with abnormal tracer uptake. Centrilobular emphysematous changes are seen, particularly in the upper lung. Cardiovascular structures: No lesions with abnormal tracer uptake. 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 Pleura: No pleural effusion or lesions with abnormal tracer uptake. Other: None. ABDOMEN AND PELVIS: Hepatobiliary and pancreas: Physiologic uptake. No lesions with abnormal tracer uptake. Cholelithiasis is noted. Spleen: Physiologic uptake. No splenomegaly or lesions with abnormal tracer uptake. Adrenal Glands: No lesions with abnormal tracer uptake. Kidneys: Physiologic activity but no lesions with abnormal tracer uptake. There is an approximately 2.5 cm left renal cyst. Retroperitoneum: No lymph nodes or other lesions with abnormal tracer uptake. There is a 3.2 cm infrarenal abdominal aortic aneurysm. Mesentery: No lymph nodes or other lesions with abnormal tracer uptake. GI tract: Physiologic activity but no lesions with abnormal tracer uptake. There are scattered left colonic diverticula. The urinary bladder is somewhat limited in evaluation due to intense excreted tracer activity within the lumen and resultant blooming artifact. Prostate: Regional increased uptake(SUV 13.2; previously 8.8) measuring about 2 cm, slightly to the right of the midline is seen probably involving the central gland of the prostate, likely correlating with the right mid transition zone lesion described in the prior MRI study. Seminal Vesicles bed: No abnormal activity. Lymph nodes: No enlarged or tracer avid lymph node is seen in the retroperitoneal, iliac, obturator, or mesorectal regions. There are some scattered bilateral inguinal lymph nodes, mildly increased in number, maximum 1.2 cm in short axis diameter, but no significant tracer uptake is seen. These lymph nodes have been present since the prior 2014 CT, likely representing benign hyperplastic nodes. BONE AND OTHER FINDINGS: No osseous destructive lesions with abnormal tracer uptake. Scattered degenerative changes, particularly in the spine. IMPRESSION: PSMA positive lesion in the paramedian right central gland region of the prostate, approximately 2 cm in size, mildly increased in size and tracer avidity since the prior PET/CT (today's SUV 13.2; previously 8.8). But no suspicious tracer avid lymph nodes or osseous metastatic lesions are seen. Other stable findings include emphysema, cholelithiasis, colonic diverticulosis, and a 3.2 cm abdominal aortic aneurysm. Every 3 year imaging follow-up for AAA is advised. Transcribe Date/Time: May 13 2023 9:24P Dictated by: PIPO REAGLADO DO This examination was interpreted and the report reviewed and electronically signed by: PIPO REGALADO DO on May 13 2023 10:13PM EST Thank you for allowing us to participate in the care of your patient. Should there be any questions regarding this interpretation, please call [phone]. If you are unable to reach us at the number above, please feel free to contact [facility] at [phone]. [id number] Normal [facility] CNOVSPon 04-10-2023 CNOVSP Visit (SP) Office (H EMASA) JM BARROW ([id number]) 1945 M Date Time Provider Department 04/10/23 3:30 PM JOSE FRANCISCO BROUSSARD During your visit today, we recorded the following information about you: Temperature Pulse Respiration Blood pressure 97.1 degrees 67/minute 18/minute 118/62 Weight Height 81.5 kg 1.778 m Jose Francisco Broussard MD 04/10/2023 10:45 PM Signed PATIENT NAME: Jm Barrow DATE: 04/10/2023 PRIMARY CARE PHYSICIAN: Arline Orosco MD OTHER PHYSICIANS: Dr. Guzman, Dr. Leroy Shaw, Dr. Guzman, Dr. Webb Portions of this encounter note have been copied from my note from 12/26/2022 and has been updated where appropriate, and reflect my current medical decision making from today. CC: This is a 77 year old male with recurrent prostate cancer, seen for scheduled follow-up. INTERIM HISTORY: Since the patient's last visit here he was seen by Dr. Robb at [facility] to discuss possible brachytherapy for his localized prostate cancer recurrence. Prior to considering treatment a repeat PSMA PET scan was recommended, but the patient has not yet had the test. Clinically he feels well with no new complaints. However, his PSA continues to slowly increase. His chronic urinary symptoms are stable on current medications. MEDICATIONS: Current Outpatient Medications Medication Sig simvastatin (ZOCOR) 10 mg tablet Take 10 mg by mouth daily at bedtime. irbesartan (AVAPRO) 75 mg tablet Take 75 mg by mouth daily at bedtime. chlorthalidone (HYGROTON) 25 mg tablet Take 25 mg by mouth once daily. metoprolol succinate ER (TOPROL XL) 25 mg 24 hr tablet Take 25 mg by mouth once daily. pantoprazole DR (PROTONIX) 40 mg tablet Take 40 mg by mouth once daily. fluticasone-vilanterol (BREO ELLIPTA) 100-25 mcg/dose inhaler Inhale 1 Inhalation as instructed once daily. oxybutynin (DITROPAN) 5 mg tablet Take 5 mg by mouth twice daily. escitalopram oxalate (LEXAPRO) 20 mg tablet Take 20 mg by mouth once daily. doxazosin mesylate (CARDURA ORAL) Take 6 mg by mouth. calcium-cholecalciferol, D3, (OSCAL+D 250) 250 mg-3.125 mcg (125 unit) per tablet Take 1 tablet by mouth once daily. ascorbic acid, vitamin C, (VITAMIN C) 500 mg tablet Take 500 mg by mouth once daily. MULTI-VITAMIN ORAL Take by mouth. traZODone (DESYREL) 50 mg tablet Take 50 mg by mouth daily at bedtime. tamsulosin (FLOMAX) 0.4 mg Take 0.4 mg by mouth once daily. 2 daily Vitamin E, dl, acetate, (VITAMIN E) 400 unit capsule Take 400 Units by mouth once daily. Simethicone 125 mg cap Take by mouth. aspirin, enteric coated (ASPIRIN, ENTERIC COATED) 81 mg EC tablet Take 81 mg by mouth once daily. Docusate Sodium 100 mg tab Take 2 tablets by mouth. Cetirizine (ZYRTEC) 10 mg cap Take by mouth. denosumab (PROLIA) 60 mg/mL Inject 60 mg subcutaneously one time only. leuprolide, 6 month, (LUPRON DEPOT, 6 MONTH,) sykt IM syringe kit Inject 45 mg intramuscularly one time only. No current facility-administered medications for this visit. ALLERGIES: ALLERGIES Allergen Reactions Chlorhexidine Rash Hibaclens [Other] Rash PAST MEDICAL HISTORY: PAST MEDICAL HISTORY Diagnosis Date BPH (benign prostatic hyperplasia) Diplopia Hypertension Prostate cancer (HCC) Pseudophakia of both eyes Strabismus Wears glasses PAST SURGICAL HISTORY: PAST SURGICAL HISTORY Procedure Laterality Date APPENDECTOMY COLONOSCOPY 11/18/2019 EYE MUSCLE SURG PROC UNLISTED Right 07/05/2021 07/05/2021 - Lorenzo Archuleta MD - Recess right superior rectus by 4 mm HERNIA REPAIR HX REMOVE CATARACT, INSERT LENS,EX Bilateral 06/2019 Dr. Alfa [place], [place] TONSILLECTOMY HX FAMILY HISTORY: FAMILY HISTORY Problem Relation Age of Onset Colon Cancer Mother GI Mother Diabetes Mother Cancer Father Pancreatic or Liver Diabetes Father SOCIAL HISTORY: Social History Tobacco Use Smoking status: Every Day Packs/day: 1.00 Years: 40.00 Additional pack years: 0.00 Total pack years: 40.00 Types: Cigarettes Passive exposure: Current Smokeless tobacco: Never Vaping Use Vaping Use: Never used Substance Use Topics Alcohol use: No Drug use: Never Comment: not asked COMPLETE REVIEW OF SYSTEMS: CONSTITUTION: Negative for pain, fatigue, weight loss, or appetite loss. EENT: Negative for mouth soreness, antibiotics use, epistaxis, visual problems, neck or facial swelling, fever/chills, bleeding gums, or hearing loss. CV: Negative for edema, calf swelling, palpitations, or chest pain. RESPIRATORY: Negative for cough, SOB, hemoptysis, or wheezing. GI: Negative for nausea/vomiting, heartburn, vomiting blood, dysphasia, diarrhea, blood in stool, constipation, early satiety, PICA, vegetarian, poor nutrition, abdominal fullness, or abdominal pain. NEUROLOGICAL: Negative for numbness/tingling, dizziness, gait (more content not included)... Normal [facility] MICHELAANDRAJM GHOTRA ([id number]) 1945 M Date Time Provider Department 04/10/23 Ace GUZMAN During your visit today, we recorded the following information about you: Neil RomeroKiera 04/10/2023 3:28 PM Signed This form is used for MAIN CAMPUS APPOINTMENTS ONLY. Is this request for a [place] PET scan appointment? Yes: Geophysical Prospecting Surveyor: Kiera Romero Requesting Person Dr guzman: Area Code + Phone/Pager: [phone] Who do we call to schedule this appointment? Other Contact: PSMA pet please message anne browne in [place] Requesting Staff Dr guzman Area Code + Phone/Pager: [phone] PET Orders (A delay in scheduling will result if the orders are not present at time of review): Internal ADDITIONAL ACTION MAY BE REQUIRED IF PATIENTS OON INSURANCE OR SELF PAY COVERAGE HAS NOT BEEN CLEARED FOR REQUESTED APPOINTMENT. Scheduling: EL: As soon as insurance will allow What account will this PET appointment be linked to? P/F Type of PET: Oncology: Are there additional diagnostic CT scans required to be done at time of PET scan? No Is the request for a PET MR ? No What account will diagnostic testing appointment be linked to? P/F Will the patient need anesthesia? NO Send requests to P COORD REVIEW Brenda Hayden 04/11/2023 10:04 AM Signed Authorization number: [id number] Authorization date range: PSMA Primary Insurance: [employer] AND [employer] HMO Diagnosis: Prostate cancer (HCC) [C61] DX Imaging: PET Scan: 06/02/2022 PET Pathology: 02/14/2000 Pelvic lymph node biopsy [place]. Doug Regalado) Metastatic prostate adenocarcinoma involving 1 of 3 lymph nodes (right obturator LN) PROSTATE GLAND, LEFT, LEVELS 1-4 , NEEDLE BIOPSIES ([id number], A-D) - PROSTATIC ADENOCARCINOMA, KITA SCORE 7 (4+3). Comment: Adenocarcinoma involves 60% of the needle biopsy specimens. Perineural invasion is present. 2. PROSTATE GLAND, RIGHT, LEVELS 1-4, NEEDLE BIOPSIES ([id number]; E-H) - PROSTATIC ADENOCARCINOMA, KITA SCORE 7 (4+3) 01/20/2000 TRUS prostate biopsy ([facility]) Prostate adenocarcinoma, Kita composite score 8 Labs: PSA 06/02/2022 PSA 0.50 03/14/2022 PSA 0.48 12/14/2020 PSA 0.20 Clinical Notes Reviewed: 04/10/2023 [facility] Date of last: The patient received primary treatment with external beam radiation therapy which was completed 2000 Lupron (enzalutamide started 06/24/2022 ADT with Lupron started at the time of diagnosis and continued until July 2013. January 2017 the patient developed an increasing PSA and Lupron resumed, currently given every 6 months. 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 or P MI SPECIAL STUDIES Brenda Hayden 04/11/2023 10:04 AM Signed Auth#:[id number] Date Range: 04-11-23 to 07-09-2023 22556/PSMA- piflufolastat (Pylarify) F-18 Ace Montoya INS Contact Number: Intake: online Case/Ref#: [id number] Notes: 04/11/2023 Authorized online via Sherie/Abdi routed to [facility] for scheduling in Mobile per patient's request Allergies As of Date: 04/10/2023 Noted Allergy Reaction CHLORHEXIDINE 05/21/2013 2 - Rash hibaclens [Other] 06/02/2011 2 - Rash Date Reviewed: 04/10/2023 Reviewed by: Vidhi Rico - Fully Assessed Reason for Visit: Nm Pet Request [3590] Prescriptions as of 04/12/2023 - simvastatin (ZOCOR) 10 mg tablet Take 10 mg by mouth daily at bedtime. - irbesartan (AVAPRO) 75 mg tablet Take 75 mg by mouth daily at bedtime. - chlorthalidone (HYGROTON) 25 mg tablet Take 25 mg by mouth once daily. - metoprolol succinate ER (TOPROL XL) 25 mg 24 hr tablet Take 25 mg by mouth once daily. - pantoprazole DR (PROTONIX) 40 mg tablet Take 40 mg by mouth once daily. - fluticasone-vilanterol (BREO ELLIPTA) 100-25 mcg/dose inhaler Inhale 1 Inhalation as instructed once daily. - oxybutynin (DITROPAN) 5 mg tablet Take 5 mg by mouth twice daily. - escitalopram oxalate (LEXAPRO) 20 mg tablet Take 20 mg by mouth once daily. - doxazosin mesylate (CARDURA ORAL) Take 6 mg by mouth. - calcium-cholecalciferol, D3, (OSCAL+D 250) 250 mg-3.125 mcg (125 unit) per tablet Take 1 tablet by mouth once daily. - ascorbic acid, vitamin C, (VITAMIN C) 500 mg tablet Take 500 mg by mouth once daily. - MULTI-VITAMIN ORAL Take by mouth. - tamsulosin (FLOMAX) 0.4 mg Take 0.4 mg by mouth once daily. 2 daily - Vitamin E, (more content not included)... Normal [facility] 04-03-2023 Prostate specific Ag [Mass/Vol] 0.67 ng/mL Normal <2.60 [facility] Comment on above: Order Comment: Speci men Type: BLOOD SPECIMENOrdering Facility: [facility] Address: [address] [address] Result Comment: Anali barboza PSA test methodology used is the Electrochemiluminescence Immunoassay by [employer]. Total PSA values by differing methodologies cannot be interchanged. Performed By: #### 2 857-1 ####[facility] LABCLIA [id number] [place] [address] [place] CNOVon 02-23-2023 CNOV Office Visit (RADTSA ) JM BARROW ([id number]) 1945 M Date Time Provider Department 02/23/23 1:30 PM Ace GUZMAN During your visit today, we recorded the following information about you: Temperature Pulse Respiration Blood pressure 97.4 degrees 64/minute 16/minute 109/68 Weight 83.5 kg Mali Mora LPN 03/01/2023 12:41 PM Signed AUA= 12 Ace Guzman MD 03/01/2023 12:41 PM Signed Radiation Oncology - Follow Up Note PATIENT NAME: Jm Barrow PATIENT DIAGNOSIS: 1. Prostate cancer, node positive, prior pelvic and prostate radiation 2000. With PSA recurrence on ADT with recent rising PSA and PET positive finding of the prostate 2. Bladder cancer, carcinoma in situ diagnosed 2016 status post BCG with development of recurrent low-grade bladder cancer 2021 status post TUR undergoing surveillance. INTERVAL HISTORY: Patient underwent evaluation for possible brachytherapy salvage. Repeat PET was recommended which has not been done as of yet. Patient after considering options including other local ablative options does not want to pursue at this point. Prostate MRI 08/15/2022: IMPRESSION: Region of asymmetric, mildly restricted diffusion in the right mid transition zone, roughly corresponding to the area of abnormal PSMA uptake and possibly a site of recurrence. This was targeted for potential fusion biopsy. No pelvic lymphadenopathy or suspicious osseous lesion. PSMA prostate PET scan 06/02/2022: Head and neck: -No suspicious PSMA expressing neoplastic process. Chest: -No evidence of PSMA expressing neoplastic process Abdomens and Pelvis: - PSMA Avid focus in the prostatic region suspicious for neoplasm. Bones and soft tissues: - No evidence of PSMA expressing neoplastic process PSA HISTORY: PSA Date Value 02/21/2023 0.49 ng/mL 12/19/2022 0.48 ng/mL 11/17/2022 0.49 ng/mL 09/20/2022 0.38 ng/mL 02/03/2014 0.17 ng/mL 11/12/2013 <0.06 07/15/2013 0.23 ng/mL 06/24/2013 0.23 ng/mL PSA. (no units) Date Value 03/14/2022 0.48 12/14/2020 0.20 09/15/2017 0.15 11/10/2015 1.36 PSA 0.19 01/15/2020 PSA 0.16 11/12/2019 PSA 0.14 10/23/2018 PSA 0.18 04/20/2018 PSA 0.15 09/15/2017 Latest Reference Range AND Units 06/02/22 13:12 Testosterone 193 - 824 ng/dL <12 (L) (L): Data is abnormally low ALLERGIES: ALLERGIES Allergen Reactions Chlorhexidine Rash Hibaclens [Other] Rash MEDICATIONS: simvastatin (ZOCOR) 10 mg tablet Take 10 mg by mouth daily at bedtime. irbesartan (AVAPRO) 75 mg tablet Take 75 mg by mouth daily at bedtime. chlorthalidone (HYGROTON) 25 mg tablet Take 25 mg by mouth once daily. metoprolol succinate ER (TOPROL XL) 25 mg 24 hr tablet Take 25 mg by mouth once daily. pantoprazole DR (PROTONIX) 40 mg tablet Take 40 mg by mouth once daily. fluticasone-vilanterol (BREO ELLIPTA) 100-25 mcg/dose inhaler Inhale 1 Inhalation as instructed once daily. oxybutynin (DITROPAN) 5 mg tablet Take 5 mg by mouth twice daily. escitalopram oxalate (LEXAPRO) 20 mg tablet Take 20 mg by mouth once daily. doxazosin mesylate (CARDURA ORAL) Take 6 mg by mouth. calcium-cholecalciferol, D3, (OSCAL+D 250) 250 mg-3.125 mcg (125 unit) per tablet Take 1 tablet by mouth once daily. ascorbic acid, vitamin C, (VITAMIN C) 500 mg tablet Take 500 mg by mouth once daily. MULTI-VITAMIN ORAL Take by mouth. traZODone (DESYREL) 50 mg tablet Take 50 mg by mouth daily at bedtime. tamsulosin (FLOMAX) 0.4 mg Take 0.4 mg by mouth once daily. 2 daily Vitamin E, dl, acetate, (VITAMIN E) 400 unit capsule Take 400 Units by mouth once daily. Simethicone 125 mg cap Take by mouth. aspirin, enteric coated (ASPIRIN, ENTERIC COATED) 81 mg EC tablet Take 81 mg by mouth once daily. Docusate Sodium 100 mg tab Take 2 tablets by mouth. Cetirizine (ZYRTEC) 10 mg cap Take by mouth. denosumab (PROLIA) 60 mg/mL Inject 60 mg subcutaneously one time only. leuprolide, 6 month, (LUPRON DEPOT, 6 MONTH,) sykt IM syringe kit Inject 45 mg intramuscularly one time only. PERTINENT REVIEW OF SYSTEMS: Hematuria: none Dysuria: none Incontinence: none Urgency:mild Catheter use: none Medications to aid urination: Yes Bowel movement frequency: 1-3/day Bowel movement quality: normal Blood per rectum: none lupron restarted 01/29 PHYSICAL EXAM: 02/23/23 1323 BP: 109/68 Pulse: 64 Resp: 16 Temp: 36.3 ?C (97.4 ?F) SpO2: 95% Weight: 83.5 kg (184 lb) KPS: 100 General appearance: Alert and oriented. No acute distress. Skin: Skin color, texture, turgor normal, no suspicious rashes or lesions. ASSESSMENT/PLAN: 1. Bladder cancer. doing well without evidence of recurrence has continued follow-up with Dr. Shaw. 2 Prostate cancer Kita 8, node positive with prior treatment including pelvic radiation as well as androgen ablative therapy, rad (more content not included)... Normal [facility] PSA [facility] 02-21-2023 Prostate specific Ag [Mass/Vol] 0.49 ng/mL Normal <2.60 [facility] Comment on above: Order Comment: Speci men Type: BLOOD SPECIMENOrdering Facility: [facility] Address: [address] [place] [address] Result Comment: Tota l PSA test methodology used is the Electrochemiluminescence Immunoassay by [employer]. Total PSA values by differing methodologies cannot be interchanged. Performed By: #### 2 857-1 ####[facility] LABCLIA [id number] [place] [address] [place] 25([place])D3 [facility] 2022 25-hydroxyvitamin D3 [Mass/Vol] 63.9 ng/mL Normal 31.0-80.0 [facility] Comment on above: Order Comment: Speci men Type: BLOOD SPECIMEN Ordering Facility: [facility] Address: [address] [place] [address] Result Comment: Clas sification of 25 [place] Vitamin D status: Deficiency/Insufficiency: < or = 30 ng/ml. Sufficiency/Optimal Levels: 31-80 ng/mL Toxicity: > 100 ng/mL. Test performed by chemiluminescent immunoassay. Performed By: #### 1 989-3 #### [facility] LAB CLIA [id number] [address] [facility] [place] [id number] CNOVon 02-15-2023 CNOV Office Visit ([facility] ) PERCYJM Dean ([id number]) 1945 M Date Time Provider Department 02/15/23 9:00 AM BARB KIRAN [facility] During your visit today, we recorded the following information about you: Pulse Blood pressure 59/minute 102/59 Barb Kiran MD 02/15/2023 9:59 AM Signed [facility]rology Clinic - February 15, 2023 Reason for visit: Mr. Barrow is a self referral for my opinion regarding neuropathy. My final recommendation will be communicated back to the requesting physician by way of shared medical record or letter. HISTORY OF PRESENT ILLNESS: Patient is a 77 year old, right-handed, White, male with history of BPH, diplopia, HTN, prostate cancer s/p radiation(1999, recurrence in May 2022), pseudophakia, strabismus. History gathered from patient and electronic medical records. He has h/o prostate cancer s/p radiation in 1999(on lupron), found to have recurrence in may /jun 2022; started on xtandi(enzalutamide). He has h/o HTN, maintained on cardura and HCTZ which kept his BP controlled. BP started going up, when he started xtandi(known side effect), this was discontinued after a month. But despite discontinuation of xtandi, BP remain persistently high; cardura dose increased, HCTZ switched to chlorthalidone, added avapro and on PRN metoprolol. He saw cardiology, he is noted to have orthostasis, SBP may drop by 50 to 60 on standing and diastolic BP may drop by 10-15 points. His fire controlman was concerned about autonomic neuropathy; recommending to get autonomic testing and following up with him after. He then called for this appointment. When he looked into it, he reports to have other symptoms that may be related including: - intense 'cold' flashes - do not sweat - has '' bowels - can make bowel movement but feels there is something left - cannot pass completely Denies history of numbness, may have intermittent tingling in the fingers, no sharp or burning pain/nausea or vomiting, (+) sometimes diarrhea, no constipation, (+) bladder cancer with good bladder function, (+) lack or decrease in sweat production, (+) light-headedness, (-) passing out spells. Patient does not have a dietary preference, no EtOH; (+) supplements - vit E, vit D, B12, MVI. No known exposure to heavy metals or toxins, no chemotherapeutic agents; (+) radiation treatment in 1999 for prostate cancer. 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 PAST MEDICAL HISTORY Diagnosis Date BPH (benign prostatic hyperplasia) Diplopia Hypertension Prostate cancer (HCC) Pseudophakia of both eyes Strabismus Wears glasses PAST SURGICAL HISTORY Procedure Laterality Date APPENDECTOMY COLONOSCOPY 11/18/2019 EYE MUSCLE SURG PROC UNLISTED Right 07/05/2021 07/05/2021 - Lorenzo Archuleta MD - Recess right superior rectus by 4 mm HERNIA REPAIR HX REMOVE CATARACT, INSERT LENS,EX Bilateral 06/2019 Dr. Grimm - [place], [place] TONSILLECTOMY HX MEDICATIONS: Current Outpatient Medications Medication Sig Dispense Refill irbesartan (AVAPRO) 75 mg tablet Take 75 mg by mouth daily at bedtime. chlorthalidone (HYGROTON) 25 mg tablet Take 25 mg by mouth once daily. metoprolol succinate ER (TOPROL XL) 25 mg 24 hr tablet Take 25 mg by mouth once daily. pantoprazole DR (PROTONIX) 40 mg tablet Take 40 mg by mouth once daily. fluticasone-vilanterol (BREO ELLIPTA) 100-25 mcg/dose inhaler Inhale 1 Inhalation as instructed once daily. oxybutynin (DITROPAN) 5 mg tablet Take 5 mg by mouth twice daily. escitalopram oxalate (LEXAPRO) 20 mg tablet Take 20 mg by mouth once daily. doxazosin mesylate (CARDURA ORAL) Take 6 mg by mouth. calcium-cholecalciferol, D3, (OSCAL+D 250) 250 mg-3.125 mcg (125 unit) per tablet Take 1 tablet by mouth once daily. ascorbic acid, vitamin C, (VITAMIN C) 500 mg tablet Take 500 mg by mouth once daily. MULTI-VITAMIN ORAL Take by mouth. traZODone (DESYREL) 50 mg tablet Take 50 mg by mouth daily at bedtime. tamsulosin (FLOMAX) 0.4 mg Take 0.4 mg by mouth once daily. 2 daily Vitamin E, dl, acetate, (VITAMIN E) 400 unit capsule Take 400 Units by mouth once daily. Simethicone 125 mg cap Take by mouth. aspirin, enteric coated (ASPIRIN, ENTERIC COATED) 81 mg EC tablet Take 81 mg by mouth once daily. Docusate Sodium 100 mg tab Take 2 tablets by mouth. Cetirizine (ZYRTEC) 10 mg cap Take by mouth. denosumab (PROLIA) 60 mg/mL Inject 60 mg subcutaneously one time only. leuprolide, 6 month, (LUPRON DEPOT, 6 MONTH,) sykt IM syringe kit Inject 45 mg intramuscularly one time only. No current facility-administered medications for this visit. ALLERGY: ALLERGIES Allergen Reactions Chlorhexidine Rash Hibaclens [Other] Rash FAMILY HISTORY Problem Relation Age of Onset Colon Cancer Mother GI Mother Diabetes Mother Cancer Father Pancreatic or Liver Diabetes Father Social History Tobacco Use Smoking (more content not included)... Normal [facility] HbA1c (Bld)on 02-15-2023 Average glucose Estimated from glycated hemoglobin (Bld) [Mass/Vol] 105 mg/dL Normal [facility] Comment on above: Order Comment: Speci men Type: BLOOD SPECIMEN Ordering Facility: [facility] Address: [address] [place] [address] Result Comment: eAG: (Estimated average glucose) is a calculated value from HgbA1c and is patient support representative of the average blood glucose level in the last 2-3 month period. Performed By: #### 5 5454-3 #### [facility] CLIA [id number] [address] [id number] [place] HbA1c (Bld) [Mass fraction] 5.3 % Normal 4.3-5.6 [facility] Comment on above: Order Comment: Speci men Type: BLOOD SPECIMEN Ordering Facility: [facility] Address: [address] [place] [address] Result Comment: [place] Diabetes Association guidelines indicate that patients with HgbA1c in the range 5.7-6.4% are at increased risk for development of diabetes, and intervention by lifestyle modification may be beneficial. HgbA1c greater or equal to 6.5% is considered diagnostic of diabetes. Performed By: #### 5 5454-3 #### [facility] CLIA [id number] [address] [place] [address] IMMUNOFIXATION SCREEN, SERUM on 02-15-2023 MPA RESULT No M protein is identified. Normal No M protein is identified. [facility] Comment on above: Order Comment: Speci men Type: BLOOD SPECIMEN Ordering Facility: [facility] Address: [address] [place] [address] Performed By: #### I FESC #### [facility] CLIA [id number] [address] [place] [address] [place] STAFF REVIEW (MPA) Reviewed by Martin charles MD, Ph.D ([id number]) Normal [facility] Comment on above: Order Comment: Speci men Type: BLOOD SPECIMEN Ordering Facility: [facility] Address: [address] [place] [address] Performed By: #### I FESC #### [facility] CLIA [id number] [address] [place], [place] [id number] [place] IMMUNOGLOBULINS GAMon 2022 IgA [Mass/Vol] 281 mg/dL Normal 70-400 [facility] Comment on above: Order Comment: Speci men Type: BLOOD SPECIMEN Ordering Facility: [facility] Address: [address] [place] [address] Performed By: #### S ERIMM #### [facility] CLIA [id number] [address] [place] [address] [place] IgG [Mass/Vol] 955 mg/dL Normal 700-1600 [facility] Comment on above: Order Comment: Speci men Type: BLOOD SPECIMEN Ordering Facility: [facility] Address: [address] [place] [address] Performed By: #### S ERIMM #### [facility] CLIA [id number] [address] [place] [address] [place] IgM [Mass/Vol] 90 mg/dL Normal 40-230 [facility] Comment on above: Order Comment: Speci men Type: BLOOD SPECIMEN Ordering Facility: [facility] Address: [address] [place] [address] Performed By: #### S ERIMM #### [facility] CLIA [id number] [address] [place] [address] [place] KAPPA/AREVALO,FREE,SERon 2022 Immunoglobulin light chains.kappa.free (S) [Mass/Vol] 41.1 mg/L High 3.3-19.4 [facility] Comment on above: Order Comment: Speci men Type: BLOOD SPECIMEN Ordering Facility: [facility] Address: [address] [place] [address] Result Comment: Rare ly, increased serum free light chains levels may not be detected or accurately quantified due to prozone phenomenon or in high viscosity samples using this immunoturbidimetric assay. Correlation with other laboratory results and clinical findings is recommended. The Omro Free Light Chain was performed using the Binding Site Optilite immunoturbidimetric method. Result obtained with different assay methods or kits cannot be used interchangeably. Performed By: #### K LFRS #### [facility] CLIA [id number] [address] [place] [address] [place] Immunoglobulin light chains.kappa/Immun oglobulin light chains.lambda (S) [Mass ratio] 2.00 High 0.26-1.65 [facility] Comment on above: Order Comment: Speci men Type: BLOOD SPECIMEN Ordering Facility: [facility] Address: [address] [place] [address] Performed By: #### K LFRS #### [facility] CLIA [id number] [address] [place] [address] [place] Immunoglobulin light chains.lambda.free [Mass/Vol] 20.6 mg/L Normal 5.7-26.3 [facility] Comment on above: Order Comment: Speci men Type: BLOOD SPECIMEN Ordering Facility: [facility] Address: [address] [place] [address] Result Comment: Rare ly, increased serum free light chains levels may not be detected or accurately quantified due to prozone phenomenon or in high viscosity samples using this immunoturbidimetric assay. Correlation with other laboratory results and clinical findings is recommended. The Lambda Free Light Chain was performed using the Binding Site Optilite immunoturbidimetric method. Result obtained with different assay methods or kits cannot be used interchangeably. Performed By: #### K LFRS #### [facility] CLIA [id number] [facility] [place] [address] [place] MONOCLONAL PROT UR W/INTERPo n 02-15-2023 STAFF REVIEW ([facility]) Reviewed by Martin Rojo MD, Ph.D ([id number]) Normal [facility] Comment on above: Order Comment: Speci men Type: URINE SPECIMEN Ordering Facility: [facility] Address: [address] [place] [address] Performed By: #### U RMPA #### [facility] CLIA [id number] [address] [place] [address] [place] UMPA RESULT No M protein is identified. Normal No M protein is identified. [facility] Comment on above: Order Comment: Speci men Type: URINE SPECIMEN Ordering Facility: [facility] Address: [address] [place] [address] Performed By: #### U RMPA #### [facility] CLIA [id number] [address] [place] [address] [place] Methylmalonate SerPl-sCncon 02-15-2023 Methylmalonate [Moles/Vol] 0.14 umol/L Normal <=0.40 [facility] Comment on above: Order Comment: Aroldo rahman Type: BLOOD SPECIMEN Ordering Facility: [facility] Address: [address] [place] [address] Result Comment: This test was developed and its performance characteristics determined by [facility] Pathology [facility] Laboratory Medicine [place] ([facility] It has not been cleared or approved by the FDA. -[facility] is regulated under CLIA as qualified to perform high-complexity testing. This test is used for clinical purposes. It should not be regarded as investigational or for research. Performed By: #### 1 3964-2 #### [facility] CLIA [id number] [address] [place] [address] [place] Vit B12 SerPl-mCncon 023 Cobalamin (Vitamin B12) [Mass/Vol] 1889 pg/mL High 232-1245 [facility] Comment on above: Order Comment: Aroldo rahman Type: BLOOD SPECIMEN Ordering Facility: [facility] Address: [address] [place], [place] [address] Performed By: #### 2 132-9 #### [facility] CLIA [id number] [address] [facility] [place] [place] [address] [place] CNOVon 01-04-2023 CNOV Office Visit (GOOD ) JM BARROW ([id number]) 1945 M Date Time Provider Department 01/04/23 1:00 PM JAMES ROBB During your visit today, we recorded the following information about you: Pulse Blood pressure Weight Height 56/minute 168/72 81.6 kg 1.778 m James Robb MD 01/04/2023 1:08 PM Signed PROSTATE CANCER INITIAL VISIT SERVICE DATE: January 04, 2023 PRIMARY CARE PROVIDER: Arline Orosco MD REFERRING PROVIDER: Manny Meza [address] [facility] [address] [facility] [address] Consult requested for an opinion regarding the evaluation and treatment of prostate cancer. My final impression and recommendations will be communicated back to the requesting physician by way of the shared medical record or letter via US mail. I spent 60 minutes in the visit, with more than 50% of the total fjee-vs-tpms time of the visit in counseling / coordination of care. SUBJECTIVE HISTORY OF PRESENT ILLNESS: Mr. Barrow is a 77 year old and presents with spouse. CaP (iPSA = 14, bGS = 4+4=8, by patient's recollection), TxN1Mx s/p EBRT and ADT completed 2000. Multiple episodes of hematuria since and a biochemical recurrence treated with Lupron now wirh PSA elevation on Lupron. PSMA PET shows prostate-only recurrence. Consult re: salvage options. NCCN CRITERIA VALUES Clinical Stage (AJCC 7th Edition) Tx, N1, Mx = stage KHANG [any T, N1, M0, any PSA, any GG] (AJCC 8th ed.) Previous PSA Score(s) (PSA Should Be Within 3 Months of Biopsy) PSA Date Value 12/19/2022 0.48 ng/mL 11/17/2022 0.49 ng/mL 09/20/2022 0.38 ng/mL 07/07/2022 0.20 ng/mL 02/03/2014 0.17 ng/mL 11/12/2013 <0.06 07/15/2013 0.23 ng/mL 06/24/2013 0.23 ng/mL PSA. (no units) Date Value 03/14/2022 0.48 12/14/2020 0.20 09/15/2017 0.15 11/10/2015 1.36 PSA, Percent Free (%) Date Value 04/03/2012 Percent free not reported when Total and/or Free PSA value is below the Date of Biopsy Not Available Type of Biopsy TRUS Random Biopsy Kita/ISUP Group unkn Total # of Biopsy Cores unkn Total # of Positive Biopsy Cores unkn Greatest % Cancer in Any Single Core unkn PSA Density unkn 2017 NCCN Risk Group unkn PERTINENT HISTORY: Urinary frequency (D/N): 6-8/2 Dysuria: No Incontinence: Mild Hematuria: No Baseline Urinary Function: 1- No pads AUA QUESTIONNAIRE (Symptoms Prior to Biopsy): Incomplete Emptyin (less than half the time) Frequency (within 2 hours of previous void): 0 (not at all) Intermittency: 5 (almost always) Urgency (difficulty postponing urination): 0 (not at all) Weak Stream: 3 (about half the time) Strainin (less than 1 time in 5) Nocturia: 2x per night - Total AUA Score: 13 BASELINE ERECTILE FUNCTION: 5- No erections PREVIOUS TREATMENTS: IMRT: July, TESTING TO DATE: PET Scan Results: Head and neck: -No suspicious PSMA expressing neoplastic process. Chest: -No evidence of PSMA expressing neoplastic process Abdomens and Pelvis: - PSMA Avid focus in the prostatic region suspicious for neoplasm. Bones and soft tissues: - No evidence of PSMA expressing neoplastic process GENOMIC TESTING: None PAST MEDICAL HISTORY Diagnosis Date BPH (benign prostatic hyperplasia) Diplopia Hypertension Prostate cancer (HCC) Pseudophakia of both eyes Strabismus Wears glasses PAST SURGICAL HISTORY Procedure Laterality Date APPENDECTOMY COLONOSCOPY 11/18/2019 EYE MUSCLE SURG PROC UNLISTED Right 07/05/2021 07/05/2021 - Lorenzo Archuleta MD - Recess right superior rectus by 4 mm HERNIA REPAIR HX REMOVE CATARACT, INSERT LENS,EX Bilateral 06/2019 Dr. Grimm [place], [place] TONSILLECTOMY HX FAMILY HISTORY Problem Relation Age of Onset Colon Cancer Mother GI Mother Diabetes Mother Cancer Father Pancreatic or Liver Diabetes Father KNOWN FAMILIAL HISTORY: Prostate Cancer in maternal uncles Social History Tobacco Use Smoking status: Every Day Packs/day: 1.00 Years: 40.00 Additional pack years: 0.00 Total pack years: 40.00 Types: Cigarettes Passive exposure: Current Smokeless tobacco: Never Vaping Use Vaping Use: Never used Substance Use Topics Alcohol use: No Drug use: Never Comment: not asked ALLERGIES Allergen Reactions Chlorhexidine Rash Hibaclens [Other] Rash MEDICATIONS: irbesartan (AVAPRO) 75 mg tablet Take 75 mg by mouth daily at bedtime. chlorthalidone (HYGROTON) 25 mg tablet Take 25 mg by mouth once daily. metoprolol succinate ER (TOPROL XL) 25 mg 24 hr tablet Take 25 mg by mouth once daily. pantoprazole DR (PROTONIX) 40 mg tablet Take 40 mg by mouth once daily. fluticasone-vilanterol (BREO ELLIPTA) 100-25 mcg/dose inhaler Inhale 1 Inhalation as instructed once daily. oxybutynin (DITROPAN) 5 mg tablet Take 5 mg by mouth twice daily. escitalopram oxalate (LEXAPRO) 20 mg tablet Take 20 mg by mouth once daily. (more content not included)... Normal [facility] 12-28-2022 CNPN Telephone (HEMASA) JM BARROW ([id number]) 1945 M Date Time Provider Department 12/28/22 UMER DALE During your visit today, we recorded the following information about you: Umer Dale RN 12/28/2022 11:[address] Bobo trinidad w/ Dr Guzman regarding radiation seed implant for pt. Dr Guzman recommends pt see Dr Robb as scheduled. Pt notified and verbalizes understanding. Umer Dale RN Allergies As of Date: 12/28/2022 Noted Allergy Reaction CHLORHEXIDINE 05/21/2013 2 - Rash hibaclens [Other] 06/02/2011 2 - Rash Date Reviewed: 12/26/2022 Reviewed by: Vidhi Rico - Fully Assessed Reason for Visit: Care Coordination [[id number]] Cmt: Radiation Appointment Prescriptions as of 12/28/2022 - irbesartan (AVAPRO) 75 mg tablet Take 75 mg by mouth daily at bedtime. - chlorthalidone (HYGROTON) 25 mg tablet Take 25 mg by mouth once daily. - metoprolol succinate ER (TOPROL XL) 25 mg 24 hr tablet Take 25 mg by mouth once daily. - pantoprazole DR (PROTONIX) 40 mg tablet Take 40 mg by mouth once daily. - fluticasone-vilanterol (BREO ELLIPTA) 100-25 mcg/dose inhaler Inhale 1 Inhalation as instructed once daily. - oxybutynin (DITROPAN) 5 mg tablet Take 5 mg by mouth twice daily. - escitalopram oxalate (LEXAPRO) 20 mg tablet Take 20 mg by mouth once daily. - doxazosin mesylate (CARDURA ORAL) Take 6 mg by mouth. - calcium-cholecalciferol, D3, (OSCAL+D 250) 250 mg-3.125 mcg (125 unit) per tablet Take 1 tablet by mouth once daily. - ascorbic acid, vitamin C, (VITAMIN C) 500 mg tablet Take 500 mg by mouth once daily. - MULTI-VITAMIN ORAL Take by mouth. - traZODone (DESYREL) 50 mg tablet Take 50 mg by mouth daily at bedtime. - tamsulosin (FLOMAX) 0.4 mg Take 0.4 mg by mouth once daily. 2 daily - Vitamin E, dl, acetate, (VITAMIN E) 400 unit capsule Take 400 Units by mouth once daily. - Simethicone 125 mg cap Take by mouth. - aspirin, enteric coated (ASPIRIN, ENTERIC COATED) 81 mg EC tablet Take 81 mg by mouth once daily. - Docusate Sodium 100 mg tab Take 2 tablets by mouth. - Cetirizine (ZYRTEC) 10 mg cap Take by mouth. - denosumab (PROLIA) 60 mg/mL Inject 60 mg subcutaneously one time only. - leuprolide, 6 month, (LUPRON DEPOT, 6 MONTH,) sykt IM syringe kit Inject 45 mg intramuscularly one time only. 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] 06/23/2021 Osteopenia of multiple sites [M85.89] 09/22/2022 Encounter Status:Closed by UMER DALE on 12/28/22 [facility] CNOVSPon 12-26-2022 CNOVSP Visit (SP) Office (H EMASA) JM BARROW ([id number]) 1945 M Date Time Provider Department 12/26/22 3:30 PM JOSE FRANCISCO BROUSSARD During your visit today, we recorded the following information about you: Temperature Pulse Respiration Blood pressure 97.2 degrees 71/minute 16/minute 94/45 Weight Height 80 kg 1.829 m Jose Francisco Broussard MD 12/28/2022 6:06 AM Signed PATIENT NAME: Jm Barrow DATE: 12/26/2022 PRIMARY CARE PHYSICIAN: Arline Orosco MD OTHER PHYSICIANS: Dr. Guzman, Dr. Leroy Shaw, Dr. Guzman, Dr. Higgins Portions of this encounter note have been copied from my note from 09/22/2022 and has been updated where appropriate, and reflect my current medical decision making from today. CC: This is a 76 year old male with recurrent prostate cancer, seen for scheduled follow-up. INTERIM HISTORY: Since the patient's last visit here he was seen at [facility] [place] by Dr. 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 The patient is now considering brachytherapy and has been referred to Dr. Robb to discuss. Otherwise he has had no significant medical changes. His blood pressure remains quite labile, and he is symptomatic with intermittent fatigue and weakness. No unusual pain. No difficulties with urination. MEDICATIONS: Current Outpatient Medications Medication Sig pantoprazole DR (PROTONIX) 40 mg tablet Take 40 mg by mouth once daily. fluticasone-vilanterol (BREO ELLIPTA) 100-25 mcg/dose inhaler Inhale 1 Inhalation as instructed once daily. oxybutynin XL (DITROPAN XL) 5 mg 24 hr tablet Take 5 mg by mouth twice daily. escitalopram oxalate (LEXAPRO) 20 mg tablet Take 20 mg by mouth once daily. doxazosin mesylate (CARDURA ORAL) Take 6 mg by mouth. calcium-cholecalciferol, D3, (OSCAL+D 250) 250 mg-3.125 mcg (125 unit) per tablet Take 1 tablet by mouth once daily. ascorbic acid, vitamin C, (VITAMIN C) 500 mg tablet Take 500 mg by mouth once daily. MULTI-VITAMIN ORAL Take by mouth. traZODone (DESYREL) 50 mg tablet Take 50 mg by mouth daily at bedtime. tamsulosin (FLOMAX) 0.4 mg Take 0.4 mg by mouth once daily. 2 daily Vitamin E, dl, acetate, (VITAMIN E) 400 unit capsule Take 400 Units by mouth once daily. Simethicone 125 mg cap Take by mouth. aspirin, enteric coated (ASPIRIN, ENTERIC COATED) 81 mg EC tablet Take 81 mg by mouth once daily. Docusate Sodium 100 mg tab Take 2 tablets by mouth. Cetirizine (ZYRTEC) 10 mg cap Take by mouth. denosumab (PROLIA) 60 mg/mL Inject 60 mg subcutaneously one time only. leuprolide, 6 month, (LUPRON DEPOT, 6 MONTH,) sykt IM syringe kit Inject 45 mg intramuscularly one time only. No current facility-administered medications for this visit. ALLERGIES: ALLERGIES Allergen Reactions Chlorhexidine Rash Hibaclens [Other] Rash PAST MEDICAL HISTORY: PAST MEDICAL HISTORY Diagnosis Date BPH (benign prostatic hyperplasia) Diplopia Hypertension Prostate cancer (HCC) Pseudophakia of both eyes Strabismus Wears glasses PAST SURGICAL HISTORY: PAST SURGICAL HISTORY Procedure Laterality Date APPENDECTOMY COLONOSCOPY 11/18/2019 EYE MUSCLE SURG PROC UNLISTED Right 07/05/2021 07/05/2021 - Lorenzo Archuleta MD - Recess right superior rectus by 4 mm HERNIA REPAIR HX REMOVE CATARACT, INSERT LENS,EX Bilateral 06/2019 Dr. Grimm [place], [place] TONSILLECTOMY HX FAMILY HISTORY: FAMILY HISTORY Problem Relation Age of Onset Colon Cancer Mother GI Mother Diabetes Mother Cancer Father Pancreatic or Liver Diabetes Father SOCIAL HISTORY: Social History Tobacco Use Smoking status: Every Day Packs/day: 1.00 Years: 40.00 Additional pack years: 0.00 Total pack years: 40.00 Types: Cigarettes Passive exposure: Current Smokeless tobacco: Never Vaping Use Vaping Use: Never used Substance Use Topics Alcohol use: No Drug use: Never Comment: not asked COMPLETE REVIEW OF SYSTEMS: CONSTITUTION: Negative for pain, fatigue, weight loss, or appetite loss. EENT: Negative for mouth soreness, antibiotics use, epistaxis, visual problems, neck or facial swelling, fever/chills, bleeding gums, or hearing loss. CV: Negative for edema, calf swelling, palpitations, or chest pain. RESPIRATORY: Negative for cough, SOB, hemoptysis, or wheezing. GI: Negative for nausea/vomiting, heartburn, vomiting blood, dysphasia, diarrhea, blood in stool, constipation, early satiety, PICA, vegetarian, poor nutrition, abdominal fullness, or abdominal pain. NEUROLOGICAL: Negative for numbness/tingling, dizziness, gait disturbance, headache, speech disturbance, tremor, hemiparesis/sensory loss, or change in mental status. MUSCULOSKELETAL: Negative for joint pain, joint swelling, or proximal muscle weakness. SKIN: Negative for hair loss, bruising, nail changes, rash, itching, pallor, (more content not included)... Normal [facility] PSA SerPl-mCncon 12-19-2022 Prostate specific Ag [Mass/Vol] 0.48 ng/mL Normal <2.60 [facility] Comment on above: Order Comment: Speci men Type: BLOOD SPECIMENOrdering Facility: [facility] Address: [address] [place] [address] Result Comment: Tota l PSA test methodology used is the Electrochemiluminescence Immunoassay by [employer]. Total PSA values by differing methodologies cannot be interchanged. Performed By: #### 2 857-1 ####[facility] [id number] [place] [address] [place] CNOVon 12-07-2022 CNOV Office Visit (UROLMN ) JM BARROW ([id number]) 1945 M Date Time Provider Department 12/07/22 3:00 PM MANNY MEZA During your visit today, we recorded the following information about you: Pulse Blood pressure Weight Height 76/minute 108/63 79.8 kg 1.829 m Ina Christianson MA 12/07/2022 2:59 PM Signed PATIENT PVR READING 0mL Manny Meza MD 12/07/2022 3:33 PM Signed PATIENT: Jm Barrow [id number] REFERRING MD: Ace Guzman NEW PATIENT VISIT 12/06/2022 Chief Complaint HIFU Referral Consultation requested by Dr. Guzman for an opinion regarding eval for focal therapy. My final recommendations will be communicated back to the requesting physician by way of shared Medical record or letter to requesting physician via US mail. 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 To have cystolitholapaxy in December. Currently having obstructive urinary symptoms but at baseline without bothersome urinary symptoms. Per Dr. Guzman note: Prostate cancer Kita 8, node positive with prior treatment including pelvic radiation as well as androgen ablative therapy, radiation completed 2000. Lupron restarted January 2017 due to PSA relapse continues on ADT. Patient has apparent localized castrate resistant recurrence. He underwent trial of enzalutamide however intolerance due to development of hypotension. PSMA PET 06/02/2022 with expression in the prostate 08/15/2022 MRI prostate asymmetric, restrictued diffusion in right mid TZ corresponding to area of abnormality on PSMA PET. 11/17/2022 PSA 0.49 11/24/2022 Met with [facility] Dr. Guzman, discussed brachytherapy vs focal therapy Abdominal surgeries- inguinal hernia repair, benign testicular mass- removed. AUA 10 QOL 2 (at baseline) CARL - since starting lupron unable to maintain erection PVR 0 GUROS: Force of Stream:varies NOCTURIA: 1-2 Day Time Frequency: unsure Hesitancy: no Intermittency: no Incomplete Emptying: no Post void Dribbling: no Urinary Retention Hx: no Double Voiding: no Urgency: no Dysuria: no Hematuria history: no Erectile dysfunction: yes UTI Hx: no Stone Hx: bladder stone, kidney stone HISTORY OF FAMILY CANCER: master of ceremonies on mothers side Past Histories PAST MEDICAL HISTORY Diagnosis Date BPH (benign prostatic hyperplasia) Diplopia Hypertension Prostate cancer (HCC) Pseudophakia of both eyes Strabismus Wears glasses PAST SURGICAL HISTORY Procedure Laterality Date APPENDECTOMY COLONOSCOPY 11/18/2019 EYE MUSCLE SURG PROC UNLISTED Right 07/05/2021 07/05/2021 - Lorenzo Archuleta MD - Recess right superior rectus by 4 mm HERNIA REPAIR HX REMOVE CATARACT, INSERT LENS,EX Bilateral 06/2019 Dr. Grimm [place], [place] TONSILLECTOMY HX Medications Current Outpatient Medications Medication Instructions ascorbic acid (vitamin C) (VITAMIN C) 500 mg, ORAL, DAILY aspirin, enteric coated (ASPIRIN, ENTERIC COATED) 81 mg, ORAL, DAILY calcium-cholecalciferol, D3, (OSCAL+D 250) 250 mg-3.125 mcg (125 unit) per tablet 1 tablet, ORAL, DAILY Cetirizine (ZYRTEC) 10 mg cap ORAL denosumab (PROLIA) 60 mg, SUBCUTANEOUS, ONCE Docusate Sodium 100 mg tab 2 tablets, ORAL doxazosin mesylate (CARDURA ORAL) 6 mg, ORAL escitalopram oxalate (LEXAPRO) 20 mg, ORAL, DAILY fluticasone-vilanterol (BREO ELLIPTA) 100-25 mcg/dose inhaler 1 Inhalation , INHALATION, DAILY LUPRON DEPOT (6 MONTH) 45 mg, INTRAMUSCULAR, ONCE MULTI-VITAMIN ORAL ORAL oxybutynin XL (DITROPAN XL) 5 mg, ORAL, [address] (PROTONIX) 40 mg, ORAL, DAILY Simethicone 125 mg cap ORAL tamsulosin (FLOMAX) 0.4 mg, ORAL, DAILY, 2 daily traZODone (DESYREL) 50 mg, ORAL, AT BEDTIME Vitamin E (dl, acetate) (VITAMIN E) 400 Units, ORAL, DAILY Family History FAMILY HISTORY Problem Relation Age of Onset Colon Cancer Mother GI Mother Diabetes Mother Cancer Father Pancreatic or Liver Diabetes Father Social History Social History Tobacco Use Smoking status: Every Day Packs/day: 1.00 Years: 40.00 Total pack years: 40.00 Types: Cigarettes Passive exposure: Current Smokeless tobacco: Never Vaping Use Vaping Use: Never used Substance Use Topics Alcohol use: No Drug use: Never Comment: not asked Allergies Allergies: Chlorhexidine Rash Hibaclens [Other] Rash Review of Systems REVIEW OF SYSTEMS 1.GENERAL: No weight loss, malaise or fevers. 2.GI: No nausea, vomiting, or diarrhea 3.: See HPI Physical Exam There were no vitals taken for this visit. General: Alert, no acute distress, oriented Lungs: No respiratory di (more content not included)... Normal [facility] URINALYSIS, REFLEX MICROSCOP ICon 12-07-2022 Bacteria LM.HPF (Urine sed) [#/Area] Few Abnormal None Seen [facility] Comment on above: Order Comment: Speci men Type: URINE SPECIMENOrdering Facility: [facility] Address: [address] [place] [address] Performed By: #### L [id number] ####[facility] LABCLIA [id number] [place] [address] [place] Bilirubin Ql (U) Negative Normal Negative [facility] Comment on above: Order Comment: Speci men Type: URINE SPECIMENOrdering Facility: [facility] Address: [address] [address] Performed By: #### L [id number] ####[facility] LABCLIA [id number] [place] [address] [place] Clarity (Unsp spec) Cloudy Abnormal Clear [facility] Comment on above: Order Comment: Speci men Type: URINE SPECIMENOrdering Facility: [facility] Address: [address] [address] Performed By: #### L [id number] ####[facility] LABCLIA [id number] [place] [address] [place] Color (U) Yellow Normal Yellow [facility] Comment on above: Order Comment: Speci men Type: URINE SPECIMENOrdering Facility: [facility] Address: [address] [place] [address] Performed By: #### L [id number] ####[facility] LABCLIA [id number] [place] [address] [place] Epithelial cells LM.HPF (Urine sed) [#/Area] Few Normal [facility] Comment on above: Order Comment: Speci men Type: URINE SPECIMENOrdering Facility: [facility] Address: [address] [place] [address] Performed By: #### L [id number] ####[facility] LABIA [id number] [place] [address] [place] Glucose Test strip (U) [Mass/Vol] Negative Normal Trace, Negative [facility] Comment on above: Order Comment: Speci men Type: URINE SPECIMENOrdering Facility: [facility] Address: [address] [place] [address] Performed By: #### L [id number] ####[facility] LABIA [id number] [place] [address] [place] Hemoglobin Ql (U) Negative Normal Negative, Trace [facility] Comment on above: Order Comment: Speci men Type: URINE SPECIMENOrdering Facility: [facility] Address: [address] [place] [address] Performed By: #### L [id number] ####[facility] LABCLIA [id number] [place] [address] [place] Hyaline casts (Urine sed) [#/Area] 1-3 /LPF Abnormal 0 /LPF [facility] Comment on above: Order Comment: Speci men Type: URINE SPECIMENOrdering Facility: [facility] Address: [facility] [address] [address] Performed By: #### L [id number] ####[facility] LABCLIA [id number] [place] [address] [place] Ketones Ql (U) Negative Normal Negative, Trace [facility] Comment on above: Order Comment: Speci men Type: URINE SPECIMENOrdering Facility: [facility] Address: [address] [place] [address] Performed By: #### L [id number] ####[facility] LABCLIA [id number] [place] [address] [place] Leukocyte esterase Test strip Ql (U) 500 Akil/uL Abnormal Negative, 25 Akil/uL [facility] Comment on above: Order Comment: Speci men Type: URINE SPECIMENOrdering Facility: [facility] Address: [address] [place] [address] Performed By: #### L [id number] ####[facility] LABCLIA [id number] [place] [address] [place] Nitrite Ql (U) Negative Normal Negative [facility] Comment on above: Order Comment: Speci men Type: URINE SPECIMENOrdering Facility: [facility] Address: [address] [place] [address] Performed By: #### L [id number] ####[facility] LABCLIA [id number] [place] [address] [place] pH (U) 6.0 [pH] Normal 5.0-8.0 [facility] Comment on above: Order Comment: Speci men Type: URINE SPECIMENOrdering Facility: [facility] Address: [address] [place] [address] Performed By: #### L [id number] ####[facility] LABCLIA [id number] [place] [address] [place] Protein (U) [Mass/Vol] Trace Normal Trace, Negative [facility] Comment on above: Order Comment: Speci men Type: URINE SPECIMENOrdering Facility: [facility] Address: [address] [place], [place] [address] Performed By: #### L [id number] ####[facility] LABIA [id number] [place] [address] [place] RBC LM.HPF (Urine sed) [#/Area] 3-5 /HPF Abnormal 0-3 /HPF [facility] Comment on above: Order Comment: Speci men Type: URINE SPECIMENOrdering Facility: [facility] Address: [address] [place], [place] [address] Performed By: #### L [id number] ####[facility] [id number] [place] [address] [place] Specific gravity (U) [Rel density] 1.024 Normal 1.005-1.030 [facility] Comment on above: Order Comment: Speci men Type: URINE SPECIMENOrdering Facility: [facility] Address: [address] [place] [address] Performed By: #### L [id number] ####[facility] LABIA [id number] [address] [place] Urobilinogen Ql (U) Negative Normal Negative [facility] Comment on above: Order Comment: Speci men Type: URINE SPECIMENOrdering Facility: [facility] Address: [address] [place], [place] [address] Performed By: #### L [id number] ####[facility] LABIA [id number] [place] [address] [place] WBC LM.HPF (Urine sed) [#/Area] /[HPF] Abnormal 0-5 /HPF [facility] Comment on above: Order Comment: Speci men Type: URINE SPECIMENOrdering Facility: [facility] Address: [address] [place], [place] [address] Performed By: #### L [id number] ####[facility] LABCLIA [id number] [place] [address] [place] Bacteria LM.HPF (Urine sed) [#/Area] Few Abnormal None Seen /HPF [facility] Bilirubin Ql (U) Negative Negative [facility] Clarity (Unsp spec) Cloudy Abnormal Clear [facility] Color (U) Yellow Yellow [facility] Epithelial cells LM.HPF (Urine sed) [#/Area] Few [facility] Glucose Test strip (U) [Mass/Vol] Negative Trace, Negative [facility] Hemoglobin Ql (U) Negative Negative, Trace [facility] Hyaline casts (Urine sed) [#/Area] 1-3 /LPF Abnormal 0 /LPF [facility] Ketones Ql (U) Negative Negative, Trace [facility] Leukocyte esterase Test strip Ql (U) 500 Akil/uL Abnormal Negative, 25 Akil/uL [facility] Nitrite Ql (U) Negative Negative [facility] pH (U) 6.0 [pH] 5.0 - 8.0 [facility] Protein (U) [Mass/Vol] Trace Trace, Negative [facility] RBC LM.HPF (Urine sed) [#/Area] 3-5 /HPF Abnormal 0-3 /HPF [facility] Specific gravity (U) [Rel density] 1.024 1.005 - 1.030 [facility] Urobilinogen Ql (U) Negative Negative [facility] WBC LM.HPF (Urine sed) [#/Area] /[HPF] Abnormal 0-5 /HPF [facility] CNOVon 11-24-2022 CNOV Office Visit (NAVEEDA ) JM BARROW ([id number]) 1945 M Date Time Provider Department 11/24/22 1:30 PM Ace GUZMAN During your visit today, we recorded the following information about you: Temperature Pulse Respiration Blood pressure 97 degrees 63/minute 18/minute 111/70 Weight 80.2 kg G Fox Guzman MD 11/24/2022 2:52 PM Signed Radiation Oncology - Follow Up Note PATIENT NAME: Jm Barrow PATIENT DIAGNOSIS: 1. Prostate cancer, node positive, prior pelvic and prostate radiation 2000. With PSA recurrence on ADT with recent rising PSA and PET positive finding of the prostate 2. Bladder cancer, carcinoma in situ diagnosed 2016 status post BCG with development of recurrent low-grade bladder cancer 2021 status post TUR undergoing surveillance. INTERVAL HISTORY: Doing well. Recently found to have bladder stones and is due to undergo Cystoscopy and lithotripsy in December. Prostate MRI 08/15/2022: IMPRESSION: Region of asymmetric, mildly restricted diffusion in the right mid transition zone, roughly corresponding to the area of abnormal PSMA uptake and possibly a site of recurrence. This was targeted for potential fusion biopsy. No pelvic lymphadenopathy or suspicious osseous lesion. PSMA prostate PET scan 06/02/2022: Head and neck: -No suspicious PSMA expressing neoplastic process. Chest: -No evidence of PSMA expressing neoplastic process Abdomens and Pelvis: - PSMA Avid focus in the prostatic region suspicious for neoplasm. Bones and soft tissues: - No evidence of PSMA expressing neoplastic process PSA HISTORY: PSA Date Value 11/17/2022 0.49 ng/mL 09/20/2022 0.38 ng/mL 07/07/2022 0.20 ng/mL 06/02/2022 0.50 ng/mL 02/03/2014 0.17 ng/mL 11/12/2013 <0.06 07/15/2013 0.23 ng/mL 06/24/2013 0.23 ng/mL PSA. (no units) Date Value 03/14/2022 0.48 12/14/2020 0.20 09/15/2017 0.15 11/10/2015 1.36 PSA 0.19 01/15/2020 PSA 0.16 11/12/2019 PSA 0.14 10/23/2018 PSA 0.18 04/20/2018 PSA 0.15 09/15/2017 Latest Reference Range AND Units 06/02/22 13:12 Testosterone 193 - 824 ng/dL <12 (L) (L): Data is abnormally low ALLERGIES: ALLERGIES Allergen Reactions Chlorhexidine Rash Hibaclens [Other] Rash MEDICATIONS: pantoprazole DR (PROTONIX) 40 mg tablet Take 40 mg by mouth once daily. fluticasone-vilanterol (BREO ELLIPTA) 100-25 mcg/dose inhaler Inhale 1 Inhalation as instructed once daily. oxybutynin XL (DITROPAN XL) 5 mg 24 hr tablet Take 5 mg by mouth twice daily. escitalopram oxalate (LEXAPRO) 20 mg tablet Take 20 mg by mouth once daily. doxazosin mesylate (CARDURA ORAL) Take 6 mg by mouth. calcium-cholecalciferol, D3, (OSCAL+D 250) 250 mg-3.125 mcg (125 unit) per tablet Take 1 tablet by mouth once daily. ascorbic acid, vitamin C, (VITAMIN C) 500 mg tablet Take 500 mg by mouth once daily. MULTI-VITAMIN ORAL Take by mouth. traZODone (DESYREL) 50 mg tablet Take 50 mg by mouth daily at bedtime. tamsulosin (FLOMAX) 0.4 mg Take 0.4 mg by mouth once daily. 2 daily Vitamin E, dl, acetate, (VITAMIN E) 400 unit capsule Take 400 Units by mouth once daily. Simethicone 125 mg cap Take by mouth. aspirin, enteric coated (ASPIRIN, ENTERIC COATED) 81 mg EC tablet Take 81 mg by mouth once daily. Docusate Sodium 100 mg tab Take 2 tablets by mouth. Cetirizine (ZYRTEC) 10 mg cap Take by mouth. denosumab (PROLIA) 60 mg/mL Inject 60 mg subcutaneously one time only. leuprolide, 6 month, (LUPRON DEPOT, 6 MONTH,) sykt IM syringe kit Inject 45 mg intramuscularly one time only. PERTINENT REVIEW OF SYSTEMS: Hematuria: none Dysuria: none Incontinence: none Urgency:mild Catheter use: none Medications to aid urination: Yes Bowel movement frequency: 1-3/day Bowel movement quality: normal Blood per rectum: none lupron restarted 01/29 PHYSICAL EXAM: 11/24/22 1338 11/24/22 1339 BP: 127/71 111/70 BP Position: Sitting Standing Pulse: 69 63 Resp: 18 Temp: 36.1 ?C (97 ?F) TempSrc: Temporal SpO2: 97% Weight: 80.2 kg (176 lb 12.8 oz) KPS: 100 General appearance: Alert and oriented. No acute distress. Skin: Skin color, texture, turgor normal, no suspicious rashes or lesions. ASSESSMENT/PLAN: 1. Bladder cancer. doing well without evidence of recurrence has continued follow-up with Dr. Shaw. 2 Prostate cancer Kita 8, node positive with prior treatment including pelvic radiation as well as androgen ablative therapy, radiation completed 2000. Lupron restarted January 2017 due to PSA relapse continues on ADT Patient has apparent localized castrate resistant recurrence. He underwent trial of enzalutamide however intolerance due to development of hypotension. Currently off of antiandrogen. We discussed potential role of focal therapy given no other sites of disease on PET and rising PSA. Patient does want to pur (more content not included)... Normal [facility] PSA SerPl-ncon 11-17-2022 Prostate specific Ag [Mass/Vol] 0.49 ng/mL Normal <2.60 [facility] Comment on above: Order Comment: Speci men Type: BLOOD SPECIMENOrdering Facility: [facility] Address: [address] [place] [address] Result Comment: Tota l PSA test methodology used is the Electrochemiluminescence Immunoassay by [employer]. Total PSA values by differing methodologies cannot be interchanged. Performed By: #### 2 [id number] ####[facility] LABCLIA [id number] [place] [address] [place] Office Visit (Cardiology)on 10-18-2022 Follow-up visit Diagnoses/Problems Assessed Essential hypertension, benign (401.1) (I10) Current every day smoker (305.1) (F17.200) 1 PPD Chronic obstructive pulmonary disease, unspecified COPD type (496) (J44.9) Body mass index (BMI) of 24.0 to 24.9 in adult (V85.1) (Z68.24) Orders SocHx: Current every day smoker Tobacco Use Screening; Status:Complete; Done: 18Oct2022 You need to quit smoking.; Status:Complete - Retrospective Authorization; Done: 18Oct2022 Patient Instructions Please bring all medicines, vitamins, and herbal supplements with you when you come to the office. Prescriptions will not be filled unless you are compliant with your follow up appointments or have a follow up appointment scheduled as per instruction of your physician. Refills should be requested at the time of your visit. Follow up in 2-3 [facility] Chief Complaint JM BARROW is being seen for a 1 month follow-up of. History of Present Illness Patient returns in follow-up of problems as noted. In the interim his medical therapy was further reduced. Today in the office he has a low normal blood pressure. He insists, though, that he is having high readings at other times. Advised him that this is hard to explain. We performed orthostatics and blood pressure is even lower. Curiously he is not symptomatic. I proposed a further reduction in therapy but he is hesitant and/or reluctant to do so. I finally got him to agree to check his blood pressure only standing. I suggested to him and his that he may actually have autonomic insufficiency and have high readings in his seated and/or supine position but low or very low blood pressure standing. I pointed out to both of them that I am more concerned about the low readings in the high readings and the concept of falling with hip fracture skull fracture, etc. was explained in detail and they can occur. Encouraged him to call me regarding blood pressures extremely high or extremely low and we will provide guidance by phone but otherwise plan to see him in several months. Surgical History Problems History of Appendectomy History of Complete colonoscopy History of Hernia repair History of Prostate surgery History of Testicular surgery Current Meds Medication NameInstruction Albuterol Sulfate HFA 108 (90 Base) MCG/ACT Inhalation Aerosol SolutionINHALE 2 PUFFS BY MOUTH EVERY 4 HOURS NEEDED Aleve 220 MG Oral TabletTAKE 1 TABLET TWICE DAILY NEEDED. Aspirin EC 81 MG TBECTAKE 1 TABLET DAILY. Breo Ellipta 100-25 MCG/INH AEPBUSE 1 INHALATION ONCE DAILY. Calcium Citrate + D TABSTake 1 tablet daily Chlorthalidone 25 MG Oral Tablettake 1/2 tablet daily Ditropan 5 MG TABSTAKE 1 TABLET TWICE DAILY. Docusate Sodium 100 MG TABSTAKE 1 TABLET DAILY DIRECTED AT BEDTIME Dulcolax [place] Laxative 5 MG Oral Tablet Delayed ReleaseTAKE 1-2 TABLET DAILY AT BEDTIME NEEDED. Irbesartan 75 MG Oral TabletTAKE 1 TABLET ONCE DAILY. Lexapro 20 MG Oral TabletTAKE 1 TABLET DAILY. Lupron SOLN1 injection every 6 months Multi Vitamin TABSTAKE 1 TABLET DAILY. Prolia 60 MG/ML Subcutaneous Solution Prefilled Syringe1 injection every 6 months Protonix 40 MG Oral Tablet Delayed ReleaseTAKE 1 TABLET DAILY at bedtime Simethicone 125 MG Oral CapsuleTAKE 1 CAPSULE Daily Tamsulosin HCl - 0.4 MG Oral CapsuleTAKE 2 CAPSULE Daily At Bedtime traZODone HCl - 50 MG Oral TabletTAKE 1 TABLET AT BEDTIME. Vitamin D3 50 MCG (2000 UT) Oral TabletTake 1 tablet daily Vitamin E 400 UNIT Oral TabletTAKE 1 TABLET DAILY. ZyrTEC Allergy 10 MG Oral TabletTAKE 1 TABLET AT BEDTIME. Allergies Medication No Known Drug Allergies Recorded By: Angi Monreal; 09/01/2022 12:53:49 PM Social History Problems Current every day smoker (305.1) (F17.200) 1 PPD Daily caffeine consumption, 6-8 servings a day No alcohol use No illicit drug use Review of Systems Constitutional: not feeling tired. Eyes: no eyesight problems. ENT: no hearing loss and no nosebleeds. Cardiovascular: no intermittent leg claudication and as noted in HPI. Respiratory: no chronic cough and no shortness of breath. Gastrointestinal: no change in bowel habits and no blood in stools. Genitourinary: no urinary frequency and no hematuria. Skin: no skin rashes. Neurological: no seizures and no frequent falls. Psychiatric: no depression and not suicidal. All other systems have been reviewed and are negative for complaint. Vitals Vital Signs Recorded: 18Oct2022 10:13AMRecorded: 18Oct2022 09:54AM Systolic Yuyecak94, RUE, Sitting Diastolic Rnjjqoj78, RUE, Sitting Systolic Khvylkao11, RUE, Standing Diastolic Nlftuvzq75, RUE, Standing Heart Rate Trmqihg00, R Radial Heart Rate Nxcbuloo03, R Radial Heart Rate58, R Radial Yiandvdk95, LUE, Sitting Iifcxvdbo78, LUE, Sitting Height6 ft Jecrky424 lb BMI Nqjojcixyl31.82 kg/m2 BSA Calculated2.05 Tobacco Usea) Yes Patient encouraged to stop using tobacco productsYes Falls Screening (more content not included)... [facility] 023 Fall risk assessment a) No falls within the last year Located within [facility] [employer] [address] DO Work Phone: Tobacco use status [facility] a) Yes Located within [facility] k 600 DO Work Phone: Tobacco Screening. Yes -Russ [facility]-Patti dean 600 DO Work Phone: CNOVSPon 09-22-2022 CNOVSP Visit (SP) Office ( [place]) JM BARROW ([id number]) 1945 M Date Time Provider Department 09/22/22 1:30 PM JOSE FRANCISCO BROUSSARD During your visit today, we recorded the following information about you: Temperature Pulse Respiration Blood pressure 97.4 degrees 79/minute 16/minute 92/49 Weight Height 79 kg 1.829 m Jose Francisco Broussard MD 09/23/2022 7:25 AM Signed PATIENT NAME: Jm Barrow DATE: 09/22/2022 PRIMARY CARE PHYSICIAN: Arline Orosco MD OTHER PHYSICIANS: Dr. Guzman, Dr. Leroy Shaw, Dr. Guzman, Dr. Higgins Portions of this encounter note have been copied from my note from 07/07/2022 and has been updated where appropriate, and reflect my current medical decision making from today. CC: This is a 76 year old male with recurrent prostate cancer, seen for scheduled follow-up. INTERIM HISTORY: Since the patient's last visit here he developed labile hypertension and worsening fatigue, felt to be possible side effects of enzalutamide. The patient subsequently discontinued enzalutamide 07/13/2022. Since then he has felt somewhat better, but blood pressure continues to fluctuate. He currently is on multiple medications managed by Dr. Gifford. Ongoing weakness persists. He has had no other medical changes. He was recently seen by Dr. Guzman for local treatment recommendations, including brachytherapy, cryotherapy, and HIFU. The patient has not yet decided which treatment he prefers. MEDICATIONS: Current Outpatient Medications Medication Sig irbesartan (AVAPRO) 300 mg tablet Take 300 mg by mouth once daily. cloNIDine HCl (CATAPRES) 0.1 mg tablet Take 0.1 mg by mouth twice daily. Prn systolic >160 metoprolol succinate ER (TOPROL XL) 25 mg 24 hr tablet Take 25 mg by mouth once daily. pantoprazole DR (PROTONIX) 40 mg tablet Take 40 mg by mouth once daily. fluticasone-vilanterol (BREO ELLIPTA) 100-25 mcg/dose inhaler Inhale 1 Inhalation as instructed once daily. oxybutynin XL (DITROPAN XL) 5 mg 24 hr tablet Take 5 mg by mouth twice daily. escitalopram oxalate (LEXAPRO) 20 mg tablet Take 20 mg by mouth once daily. doxazosin mesylate (CARDURA ORAL) Take 6 mg by mouth. hydroCHLOROthiazide (HYDRODIURIL, ESIDRIX) 25 mg tablet Take 25 mg by mouth once daily. calcium-cholecalciferol, D3, (OSCAL+D 250) 250 mg-3.125 mcg (125 unit) per tablet Take 1 tablet by mouth once daily. ascorbic acid, vitamin C, (VITAMIN C) 500 mg tablet Take 500 mg by mouth once daily. MULTI-VITAMIN ORAL Take by mouth. traZODone (DESYREL) 50 mg tablet Take 50 mg by mouth daily at bedtime. tamsulosin (FLOMAX) 0.4 mg Take 0.4 mg by mouth once daily. 2 daily Vitamin E, dl, acetate, (VITAMIN E) 400 unit capsule Take 400 Units by mouth once daily. Simethicone 125 mg cap Take by mouth. aspirin, enteric coated (ASPIRIN, ENTERIC COATED) 81 mg EC tablet Take 81 mg by mouth once daily. naproxen sodium (ANAPROX) 220 mg tablet Take 220 mg by mouth twice daily with meals. Docusate Sodium 100 mg tab Take 2 tablets by mouth. Cetirizine (ZYRTEC) 10 mg cap Take by mouth. denosumab (PROLIA) 60 mg/mL Inject 60 mg subcutaneously one time only. leuprolide, 6 month, (LUPRON DEPOT, 6 MONTH,) sykt IM syringe kit Inject 45 mg intramuscularly one time only. No current facility-administered medications for this visit. ALLERGIES: ALLERGIES Allergen Reactions Chlorhexidine Rash Hibaclens [Other] Rash PAST MEDICAL HISTORY: PAST MEDICAL HISTORY Diagnosis Date BPH (benign prostatic hyperplasia) Diplopia Hypertension Prostate cancer (HCC) Pseudophakia of both eyes Strabismus Wears glasses PAST SURGICAL HISTORY: PAST SURGICAL HISTORY Procedure Laterality Date APPENDECTOMY COLONOSCOPY 11/18/2019 EYE MUSCLE SURG PROC UNLISTED Right 07/05/2021 07/05/2021 - Lorenzo Archuleta MD - Recess right superior rectus by 4 mm HERNIA REPAIR HX REMOVE CATARACT, INSERT LENS,EX Bilateral 06/2019 Dr. [place]fa [place], [place] TONSILLECTOMY HX FAMILY HISTORY: FAMILY HISTORY Problem Relation Age of Onset Colon Cancer Mother GI Mother Diabetes Mother Cancer Father Pancreatic or Liver Diabetes Father SOCIAL HISTORY: Social History Tobacco Use Smoking status: Every Day Packs/day: 1.00 Years: 40.00 Pack years: 40.00 Types: Cigarettes Passive exposure: Current Smokeless tobacco: Never Vaping Use Vaping Use: Never used Substance Use Topics Alcohol use: No Drug use: Never Comment: not asked COMPLETE REVIEW OF SYSTEMS: CONSTITUTION: Negative for pain, fatigue, weight loss, or appetite loss. EENT: Negative for mouth soreness, antibiotics use, epistaxis, visual problems, neck or facial swelling, fever/chills, bleeding gums, or hearing loss. CV: Negative for edema, calf swelling, palpitations, or chest pain. RESPIRATORY: Negative for cough, SOB, hemoptysis, or wheezing. GI: Negati (more content not included)... Normal [facility] CBC W Auto Differential pane l (Bld)on 09-20-2022 Basophils (Bld) [#/Vol] 0.06 10*3/uL Normal <0.11 [facility] Comment on above: Order Comment: Speci men Type: BLOOD SPECIMENOrdering Facility: [facility] Address: [address] [address] Performed By: #### 5 7021-8 ####[facility] LABCLIA [id number] [place] [address] Basophils/100 WBC (Bld) 0.9 % Normal [facility] Comment on above: Order Comment: Speci men Type: BLOOD SPECIMENOrdering Facility: [facility] Address: [address] [address] Performed By: #### 5 7021-8 ####[facility] LABCLIA [id number] [place] [address] Differential cell count method Nom (Bld) Auto Normal [facility] Comment on above: Order Comment: Speci men Type: BLOOD SPECIMENOrdering Facility: [facility] Address: [address] [place] [address] Performed By: #### 5 7021-8 ####[facility] LABCLIA [id number] [place] [address] Eosinophils (Bld) [#/Vol] 0.46 10*3/uL High <0.46 [facility] Comment on above: Order Comment: Speci men Type: BLOOD SPECIMENOrdering Facility: [facility] Address: [address] [place] [address] Performed By: #### 5 7021-8 ####[facility] LABCLIA [id number] [place] [address] Eosinophils/100 WBC (Bld) 6.9 % Normal [facility] Comment on above: Order Comment: Speci men Type: BLOOD SPECIMENOrdering Facility: [facility] Address: [address] [place] [address] Performed By: #### 5 7021-8 ####[facility] LABCLIA [id number] [place] [address] Erythrocyte distribution width (RBC) [Ratio] 12.3 % Normal 11.5-15.0 [facility] Comment on above: Order Comment: Speci men Type: BLOOD SPECIMENOrdering Facility: [facility] Address: [address] [place] [address] Performed By: #### 5 7021-8 ####[facility] LABCLIA [id number] [place] [address] Hematocrit (Bld) [Volume fraction] 42.2 % Normal 39.0-51.0 [facility] Comment on above: Order Comment: Speci men Type: BLOOD SPECIMENOrdering Facility: [facility] Address: [address] [place] [address] Performed By: #### 5 7021-8 ####[facility] LABIA [id number] [place] [address] Hemoglobin (Bld) [Mass/Vol] 14.4 g/dL Normal 13.0-17.0 [facility] Comment on above: Order Comment: Speci men Type: BLOOD SPECIMENOrdering Facility: [facility] Address: [address] [place] [address] Performed By: #### 5 7021-8 ####[facility] LABIA [id number] [place] [address] Immature granulocytes (Bld) [#/Vol] 10*3/uL Normal <0.10 [facility] Comment on above: Order Comment: Speci men Type: BLOOD SPECIMENOrdering Facility: [facility] Address: [address] [place] [address] Performed By: #### 5 7021-8 ####[facility] LABIA [id number] [place] [address] Immature granulocytes/100 WBC (Bld) 0.3 % Normal [facility] Comment on above: Order Comment: Speci men Type: BLOOD SPECIMENOrdering Facility: [facility] Address: [address] [place] [address] Performed By: #### 5 7021-8 ####[facility] LABCLIA [id number] [place] [address] Lymphocytes (Bld) [#/Vol] 1.95 10*3/uL Normal 1.00-4.00 [facility] Comment on above: Order Comment: Speci men Type: BLOOD SPECIMENOrdering Facility: [facility] Address: [address] [place] [address] Performed By: #### 5 7021-8 ####[facility] LABCLIA [id number] [place] [address] Lymphocytes/100 WBC (Bld) 29.2 % Normal [facility] Comment on above: Order Comment: Speci men Type: BLOOD SPECIMENOrdering Facility: [facility] Address: [address] [place] [address] Performed By: #### 5 7021-8 ####[facility] LABCLIA [id number] [place] [address] MCH (RBC) [Entitic mass] 31.7 pg Normal 26.0-34.0 [facility] Comment on above: Order Comment: Speci men Type: BLOOD SPECIMENOrdering Facility: [facility] Address: [address] [place] [address] Performed By: #### 5 7021-8 ####[facility] LABCLIA [id number] [place] [address] MCHC (RBC) [Mass/Vol] 34.1 g/dL Normal 30.5-36.0 [facility] Comment on above: Order Comment: Speci men Type: BLOOD SPECIMENOrdering Facility: [facility] Address: [address] [place] [address] Performed By: #### 5 7021-8 ####[facility] LABCLIA [id number] [place] [address] MCV (RBC) [Entitic vol] 93.0 fL Normal 80.0-100.0 [facility] Comment on above: Order Comment: Speci men Type: BLOOD SPECIMENOrdering Facility: [facility] Address: [address] [place] [address] Performed By: #### 5 7021-8 ####[facility] LABIA [id number] [place] [address] Monocytes (Bld) [#/Vol] 0.75 10*3/uL Normal <0.87 [facility] Comment on above: Order Comment: Speci men Type: BLOOD SPECIMENOrdering Facility: [facility] Address: [address] [address] Performed By: #### 5 7021-8 ####[facility] LABCLIA [id number] [place] [address] Monocytes/100 WBC (Bld) 11.2 % Normal [facility] Comment on above: Order Comment: Speci men Type: BLOOD SPECIMENOrdering Facility: [facility] Address: [address] [address] Performed By: #### 5 7021-8 ####[facility] LABCLIA [id number] [place] [address] Neutrophils (Bld) [#/Vol] 3.44 10*3/uL Normal 1.45-7.50 [facility] Comment on above: Order Comment: Speci men Type: BLOOD SPECIMENOrdering Facility: [facility] Address: [address] [address] Performed By: #### 5 7021-8 ####[facility] LABCLIA [id number] [place] [address] Neutrophils/100 WBC (Bld) 51.5 % Normal [facility] Comment on above: Order Comment: Speci men Type: BLOOD SPECIMENOrdering Facility: [facility] Address: [address] [address] Performed By: #### 5 7021-8 ####[facility] LABCLIA [id number] [place] [address] Nucleated RBC (Bld) [#/Vol] 10*3/uL Normal <0.01 [facility] Comment on above: Order Comment: Speci men Type: BLOOD SPECIMENOrdering Facility: [facility] Address: [address] [address] Performed By: #### 5 7021-8 ####[facility] LABCLIA [id number] [place] [address] Nucleated RBC/100 WBC (Bld) [Ratio] 0.0 /100 WBC Normal [facility] Comment on above: Order Comment: Speci men Type: BLOOD SPECIMENOrdering Facility: [facility] Address: [address] [place] [address] Performed By: #### 5 7021-8 ####[facility] LABCLIA [id number] [place] [address] Platelet mean volume (Bld) [Entitic vol] 9.4 fL Normal 9.0-12.7 [facility] Comment on above: Order Comment: Speci men Type: BLOOD SPECIMENOrdering Facility: [facility] Address: [address] [place] [address] Performed By: #### 5 7021-8 ####[facility] LABCLIA [id number] [place] [address] Platelets (Bld) [#/Vol] 236 10*3/uL Normal 150-400 [facility] Comment on above: Order Comment: Speci men Type: BLOOD SPECIMENOrdering Facility: [facility] Address: [address] [place] [address] Performed By: #### 5 7021-8 ####[facility] LABCLIA [id number] [place] [address] RBC (Bld) [#/Vol] 4.54 10*6/uL Normal 4.20-6.00 [facility] Comment on above: Order Comment: Speci men Type: BLOOD SPECIMENOrdering Facility: [facility] Address: [address] [place] [address] Performed By: #### 5 7021-8 ####[facility] LABCLIA [id number] [place] [address] WBC (Bld) [#/Vol] 6.68 10*3/uL Normal 3.70-11.00 [facility] Comment on above: Order Comment: Speci men Type: BLOOD SPECIMENOrdering Facility: [facility] Address: [address] [place] [address] Performed By: #### 5 7021-8 ####[facility] LABCLIA [id number] [place] [address] Comprehensive metabolic 2000 panelon 09-20-2022 Albumin [Mass/Vol] 4.4 g/dL Normal 3.9-4.9 [facility] Comment on above: Order Comment: Speci men Type: BLOOD SPECIMENOrdering Facility: [facility] Address: [address] [place] [address] Performed By: #### 2 4323-8 ####[facility] LABCLIA [id number] [place] [address] ALP [Catalytic activity/Vol] 59 U/L Normal 38-113 [facility] Comment on above: Order Comment: Speci men Type: BLOOD SPECIMENOrdering Facility: [facility] Address: [address] [place] [address] Performed By: #### 2 4323-8 ####[facility] LABCLIA [id number] [place] [address] ALT [Catalytic activity/Vol] 9 U/L Low 10-54 [facility] Comment on above: Order Comment: Speci men Type: BLOOD SPECIMENOrdering Facility: [facility] Address: [address] [place] [address] Performed By: #### 2 4323-8 ####[facility] LABCLIA [id number] [place] [address] Anion gap [Moles/Vol] 6 mmol/L Low 9-18 [facility] Comment on above: Order Comment: Speci men Type: BLOOD SPECIMENOrdering Facility: [facility] Address: [address] [place] [address] Performed By: #### 2 4323-8 ####[facility] LABCLIA [id number] [place] [address] AST [Catalytic activity/Vol] 15 U/L Normal 14-40 [facility] Comment on above: Order Comment: Speci men Type: BLOOD SPECIMENOrdering Facility: [facility] Address: [address] [address] Performed By: #### 2 4323-8 ####[facility] LABCLIA [id number] [place] [address] Bilirubin [Mass/Vol] 0.4 mg/dL Normal 0.2-1.3 [facility] Comment on above: Order Comment: Speci men Type: BLOOD SPECIMENOrdering Facility: [facility] Address: [address] [address] Performed By: #### 2 4323-8 ####[facility] LABCLIA [id number] [place] [address] Calcium [Mass/Vol] 11.0 mg/dL High 8.5-10.2 [facility] Comment on above: Order Comment: Speci men Type: BLOOD SPECIMENOrdering Facility: [facility] Address: [address] [address] Performed By: #### 2 4323-8 ####[facility] LABCLIA [id number] [place] [address] Chloride [Moles/Vol] 99 mmol/L Normal 97-105 [facility] Comment on above: Order Comment: Speci men Type: BLOOD SPECIMENOrdering Facility: [facility] Address: [address] [place] [address] Performed By: #### 2 4323-8 ####[facility] LABCLIA [id number] [place] [address] CO2 [Moles/Vol] 34 mmol/L High 22-30 [facility] Comment on above: Order Comment: Speci men Type: BLOOD SPECIMENOrdering Facility: [facility] Address: [address] [place] [address] Performed By: #### 2 4323-8 ####[facility] LABCLIA [id number] [place] [address] Creatinine [Mass/Vol] 0.94 mg/dL Normal 0.73-1.22 [facility] Comment on above: Order Comment: Aroldo rahman Type: BLOOD SPECIMENOrdering Facility: [facility] Address: [address] [address] Performed By: #### 2 4323-8 ####[facility] LABCLIA [id number] [place] [address] ESTIMATED GLOMERULAR FILTRATION RATE 85 mL/min/1.73m??? Normal >=60 [facility] Comment on above: Order Comment: Aroldo rahman Type: BLOOD SPECIMENOrdering Facility: [facility] Address: [address] [place] [address] Result Comment: Jessica mated Glomerular Filtration Rate (eGFR) is calculated using the 2020 CKD-EPI creatinine equation. This equation utilizes serum creatinine, sex, and age as parameters. The creatinine assay has traceable calibration to isotope dilution-mass spectrometry. Refer to KDIGO guidelines for clinical interpretation. In patients with unstable renal function, e.g. those with acute kidney injury, the eGFR may not accurately reflect actual GFR. Performed By: #### 2 4323-8 ####[facility] LABIA [id number] [place] [address] Glucose [Mass/Vol] 96 mg/dL Normal 74-99 [facility] Comment on above: Order Comment: Aroldo rahman Type: BLOOD SPECIMENOrdering Facility: [facility] Address: [address] [place] [address] Result Comment: The [place] Diabetes Association (ADA) provides guidance for cutoff values for fasting glucose and random glucose. The ADA defines fasting as no caloric intake for at least 8 hours. Fasting plasma glucose results between 100 to 125 mg/dL indicate increased risk for diabetes (prediabetes). Fasting plasma glucose results greater than or equal to 126 mg/dL meet the criteria for diagnosis of diabetes. In the absence of unequivocal hyperglycemia, results should be confirmed by repeat testing. In a patient with classic symptoms of hyperglycemia or hyperglycemic crisis, random plasma glucose results greater than or equal to 200 mg/dL meet the criteria for diagnosis of diabetes. Reference: Standards of Medical Care in Diabetes 2016, [place] [employer] Association. Diabetes Care. 2016.39(Suppl 1). Performed By: #### 2 4323-8 ####[facility] LABCLIA [id number] [place] [address] Potassium [Moles/Vol] 4.1 mmol/L Normal 3.7-5.1 [facility] Comment on above: Order Comment: Speci men Type: BLOOD SPECIMENOrdering Facility: [facility] Address: [address] [address] Performed By: #### 2 4323-8 ####[facility] LABCLIA [id number] [place] [address] Protein [Mass/Vol] 7.2 g/dL Normal 6.3-8.0 [facility] Comment on above: Order Comment: Speci men Type: BLOOD SPECIMENOrdering Facility: [facility] Address: [address] [address] Performed By: #### 2 4323-8 ####[facility] LABCLIA [id number] [place] [address] Sodium [Moles/Vol] 139 mmol/L Normal 136-144 [facility] Comment on above: Order Comment: Speci men Type: BLOOD SPECIMENOrdering Facility: [facility] Address: [address] [address] Performed By: #### 2 4323-8 ####[facility] LABCLIA [id number] [place] [address] Urea nitrogen [Mass/Vol] 26 mg/dL High 9-24 [facility] Comment on above: Order Comment: Speci men Type: BLOOD SPECIMENOrdering Facility: [facility] Address: [address] [address] Performed By: #### 2 4323-8 ####[facility] LABCLIA [id number] [place] [address] PSA SerPl-ncon 09-20-2022 Prostate specific Ag [Mass/Vol] 0.38 ng/mL Normal <2.60 [facility] Comment on above: Order Comment: Speci men Type: BLOOD SPECIMENOrdering Facility: [facility] Address: [address] [place] [address] Result Comment: Tota l PSA test methodology used is the Electrochemiluminescence Immunoassay by [employer]. Total PSA values by differing methodologies cannot be interchanged. Performed By: #### 2 857-1 ####[facility] LABCLIA [id number] [facility] [id number] [address] [place] ang[place] abdomenon CT angio abdomen [facility] [address] [place] [address] [place] [address] CT Scan Report Signed Patient: Jm Barrow JR MR#: [id number] : 1945 Acct:[id number] Age/Sex: 76 / M ADM Date: 09/13/22 Loc: CT Room: Type: [facility] Attending Dr: Baldo iGfford MD Copies to: Baldo Gifford MD Ordering Provider: Baldo Gifford MD Date of Service: 09/13/22 CT/CT angio abdomen: I10 CTA abdomen . CLINICAL DATA: Abdominal aortic aneurysm follow-up. TECHNIQUE: Initial imaging was performed without IV contrast. Intravenous contrast-enhanced CT angiography of the abdomen was then performed. Axial, sagittal, coronal and volume-rendered three- dimensional reconstructions were created and reviewed. This CT exam was performed using one or more of the following dose reduction techniques: Automated exposure control, adjustment of the mA and/or kV according to patient size, or use of iterative reconstruction technique. COMPARISON: None. FINDINGS: Lung Bases: Bilateral basilar atelectasis/scarring. Organs:Subcentimeter low attenuating lesions are seen within the liver, too small for accurate characterization.[Cholelith iasis. Spleen pancreas and adrenal glands all appear unremarkable. Cystic changes involving the kidneys. Abdominal aorta demonstrates fusiform type aneurysmal dilatation of the infrarenal abdominal aorta measuring 3.5 cm in greatest axial dimension with associated moderate calcification. No dissection or rupture is seen. This tapers to the level of the iliac bifurcation. No critical stenosis or occlusion is seen involving the major branch vessels of the abdominal aorta. GI: Stomach is grossly unremarkable. Visualized small bowel and colon demonstrate no acute findings. Partially visualized left colon diverticulosis.[ Peritoneum/Retroperitoneum: No free air, free fluid or lymphadenopathy.[ Abd wall/Bones:Abdominal wall demonstrates no acute findings. Osseous structures demonstrate degenerative change.[ CT/CT angio abdomen IMPRESSION: Fusiform type infrarenal abdominal aortic aneurysm measuring 3.5 cm. No prior imaging is available for direct comparison. No evidence of dissection or rupture. Cholelithiasis. Impression dictated by: Yoel Hagan Jr., D.OAgatha09/13/2022 3:38 PM Dictation Location: [id number] Transcribed By: [facility] 09/13/22 153 Dictated By: Yoel Hagan Jr, DO 09/13/22 153 Signed By: 09/13/22 1538 Normal [facility] Cortisolon 09-13-2022 Cortisol 7.9 ug/dL Normal [facility] Comment on above: Result Comment: Refe rence range: AM 6 - 24 ug/dl PM <10 ug/dl PERFORMED BY: [place] [address] PATHOLOGIST LONG DISTANCE OPERATOR GEORGINA XIAO M.D. Performed By: #### C ORT #### [place] [id number] [facility] No Panel Informationon 09-13 Normal Located within [facility] [address] DO Work Phone: 7.9\S\7.9 Normal Located within [facility] [address] DO Work Phone: Comment on above: Reference range: AM 6 - 24 ug/dl PM <10 ug/dlPERFORMED BY:[address] [place], [place] [id number] MEDICAL DIRECTORGEORGINA XIAO M.D. US carotid doppler BIon 04- US carotid doppler BI [facility] [address] [place] [address] [place], [place] [id number] Ultrasound Report Signed Patient: Jm Barrow JR MR#: [id number] : 1945 Acct:[id number] Age/Sex: 76 / M ADM Date: 09/02/22 Loc: Room: Type: [facility] Attending Dr: Clarence Gregory MD Ordering Provider: Clarence Gregory MD Date of Service: 09/02/22 US/US carotid doppler BI: I65.23 Copies to: Clarence Gregory MD CAROTID DUPLEX INDICATION: Known carotid occlusive disease PROCEDURE: Color-flow duplex scanning is used to interrogate the extracranial carotid arterial system, as well as both vertebral arteries. Both carotid bifurcations show some smooth homogeneous plaque formation. The proximal right internal carotid artery shows a highest peak systolic velocity of 93.2 cm/s with an end-diastolic velocity of 21.7 cm/s . The mid internal carotid artery measures 60 cm/s peak systolic with an end diastolic velocity of 15.7 cm/s . The distal segment measures 94.9 cm/s peak systolic with an end diastolic velocity of 31.8 cm/s . The velocities of the right common carotid artery are 97.5 cm/s peak systolic and 14.9 cm/s end-diastolic and 53 cm/s peak systolic and 10.3 cm/s end diastolic distally. The peak systolic velocity ratio of the internal to the common carotid artery is 0.97 . The external carotid artery measures 124 cm/s peak systolic. The right vertebral artery is patent at 94.4 cm/s peak systolic with antegrade flow. The proximal left internal carotid artery shows a highest peak systolic velocity of 91.1 cm/s with an end-diastolic velocity of 24.5 cm/s . The mid internal carotid artery measures 82.7 cm/s peak systolic with an end diastolic velocity of 23.8 cm/s . The distal segment measures 58 cm/s peak systolic with an end diastolic velocity of 17.2 cm/s . The velocities of the left common carotid artery are 84 cm/s peak systolic and 19.2 cm/s end-diastolic and 69.4 cm/s peak systolic and 13.3 cm/s end diastolic distally. The peak systolic velocity ratio of the internal to the common carotid artery is 1.08 . The external carotid artery measures 110 cm/s peak systolic. The left vertebral artery is patent at 57.6 cm/s peak systolic with antegrade flow. US/US carotid doppler BI IMPRESSION: MILD PLAQUE FORMATION IS NOTED BILATERALLY, WITH LESS THAN 50% STENOSIS OF BOTH EXTRACRANIAL INTERNAL CAROTID ARTERY. BOTH VERTEBRAL ARTERIES ARE PATENT WITH ANTEGRADE FLOW. Impression dictated by: Clarence Gregory M.D.09/03/2022 11:15 AM Dictation Location: [place] [address] Tech: Barb Wesley Transcribed By: KELLY 09/03/22 111 Dictated By: Clarence Gregory MD 09/03/22 1114 Signed By: 09/03/22 111 [facility] Office Visit (Cardiology)on 09-01-2022 Follow-up visit Diagnoses/Problems Assessed Essential hypertension, benign (401.1) (I10) Chronic obstructive pulmonary disease, unspecified COPD type (496) (J44.9) Current every day smoker (305.1) (F17.200) 1 PPD Body mass index (BMI) of 24.0 to 24.9 in adult (V85.1) (Z68.24) Orders Essential hypertension, benign Start: Chlorthalidone 25 MG Oral Tablet; TAKE 1 TABLET DAILY Cortisol-Free, Serum; Status:Active - Retrospective Authorization; Requested for:01Sep2022; CT Angio Abdomen; Status:Hold For - Scheduling,Retrospective Authorization; Requested for:01Sep2022; Patient taking Metformin or Derivatives? : No Radiologist to Determine Optimal Study : Y What are the patient's signs and symptoms? : htn CT Angio Pelvis; Status:Hold For - Scheduling,Retrospective Authorization; Requested for:01Sep2022; Patient taking Metformin or Derivatives? : No Radiologist to Determine Optimal Study : Y What are the patient's signs and symptoms? : htn IO EKG Electrocardiogram- 12 Lead; Status:Complete; Done: 01Sep2022 SocHx: Current every day smoker Stop: Metoprolol Succinate ER 25 MG Oral Tablet Extended Release 24 Hour You need to stop smoking. Though it is not easy, more than half of all adult smokers have quit. We encourage you to write down all the reasons you should quit smoking and set a quit date for yourself. Ask us how we can help. You may also call 3-351-NHFNNOW for free resources and assistance.; Status:Complete - Retrospective Authorization; Done: [id number] Tobacco Use Screening; Status:Complete; Done: [id number] Unlinked Stop: hydroCHLOROthiazide 25 MG Oral Tablet Patient Instructions Please bring all medicines, vitamins, and herbal supplements with you when you come to the office. Prescriptions will not be filled unless you are compliant with your follow up appointments or have a follow up appointment scheduled as per instruction of your physician. Refills should be requested at the time of your visit. Follow up in 1 month Chief Complaint JM BARROW is being seen for self referral for palps. History of Present Illness Patient is self-referred for management of hypertension. 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 He states that every time he is in the doctor's office or under the care of a healthcare provider he has normal readings but there are other times of the day where he has extremely high blood pressure readings. Advised him this is somewhat odd and problematic in regards to evaluation and management I do note, though that he is on an extremely aggressive treatment regimen including Avapro, Cardura, clonidine, metoprolol, tamsulosin, and hydrochlorothiazide. Despite this he claims control is suboptimal. I proposed him that he may actually be on pharmacologic regimen that predisposes him to swings in pressure. Specifically he is on a beta-gabi with obvious manifestations of sick sinus syndrome and bradycardia arrhythmia. It is possible that his low heart rate creates a compensatory vasoconstriction to maintain blood pressure. Additionally I note that he is on hydrochlorothiazide which is relatively ineffectual and I recommended we try something different like chlorthalidone. Advised him also that I am suspicious that his aggressive combination of vasodilators could also predispose him to significant swings in blood pressure with orthostatic blood pressure changes in posture. Because of this we may make additional changes in the future. Lastly educated him and his regarding my perspective on hypertension. Advised him that low blood pressure is an emergency but high blood pressure is something that requires attention to detail and slow eventual accomplishment of control. Timeline could be months or years. They initially are reluctant to accept that but begrudgingly agree In regards to his blood pressure is also worth noting that he has poor control on multiple agents. Secondary causes have never been evaluated. Because of this I will today evaluate his possibility of Rio's disease. In the future we may consider testing renin and/or aldosterone levels. Also the possibility of renal artery stenosis is entertained and a CT angiogram of the renal arteries is recommended. Current Meds Medication NameInstruction Albuterol Sulfate HFA 108 (90 Base) MCG/ACT Inhalation Aerosol SolutionINHALE 2 PUFFS BY MOUTH EVERY 4 HOURS NEEDED Aleve 220 MG Oral TabletTAKE 1 TABLET TWICE DAILY NEEDED. Aspirin EC 81 MG Oral Tablet Delayed ReleaseTAKE 1 TABLET DAILY. Avapro 300 MG Oral TabletTAKE 1 TABLET BY MOUTH EVERY DAY Breo Ellipta 100-25 MCG/INH AEPBUSE 1 INHALATION ONCE DAILY. Calcium Citrate + D TABSTake 1 tablet daily Cardura 2 MG Oral TabletTAKE 3 TABLET Daily cloNIDine HCl - 0.1 MG Oral TabletTAKE 1 TABLET BY MOUTH TWICE DAILY NEEDED FOR BP GREATER THAN systolic 160 Ditropan 5 MG TABSTAKE 1 TABLET TWICE (more content not included)... Normal I-Stand Tobacco Screening.on 023 Adult depression screening assessment No Located within [facility] [employer] [address] DO Work Phone: Fall risk assessment a) No falls within the last year Located within [facility] [employer] [address] DO Work Phone: Tobacco use status [facility] a) Yes Located within [facility] [employer] [address] DO Work Phone: Tobacco Screening. Yes [facility] [employer] [place] [address] DO Work Phone: Ravindra 08-18-2022 [facility] Office Visit (NAVEED[facility] ) JM BARROW ([id number]) 1945 M Date Time Provider Department 08/18/22 1:00 PM Ace GUZMAN During your visit today, we recorded the following information about you: Temperature Pulse Respiration Blood pressure 98 degrees 61/minute 16/minute 90/54 Weight 81.6 kg Mali Mora LPN 08/25/2022 1:52 PM Signed AUA=10 G Fox Guzman MD 08/25/2022 1:52 PM Signed Radiation Oncology - Follow Up Note PATIENT NAME: Jm Barrow PATIENT DIAGNOSIS: Prostate cancer, node positive, prior pelvic and prostate radiation 2000. INTERVAL HISTORY: Since last visit patient underwent prostate MRI. Prostate MRI 08/15/2022: IMPRESSION: Region of asymmetric, mildly restricted diffusion in the right mid transition zone, roughly corresponding to the area of abnormal PSMA uptake and possibly a site of recurrence. This was targeted for potential fusion biopsy. No pelvic lymphadenopathy or suspicious osseous lesion. PSMA prostate PET scan 06/02/2022: Head and neck: -No suspicious PSMA expressing neoplastic process. Chest: -No evidence of PSMA expressing neoplastic process Abdomens and Pelvis: - PSMA Avid focus in the prostatic region suspicious for neoplasm. Bones and soft tissues: - No evidence of PSMA expressing neoplastic process PSA HISTORY: PSA Date Value 07/07/2022 0.20 ng/mL 06/02/2022 0.50 ng/mL 02/03/2014 0.17 ng/mL 11/12/2013 <0.06 07/15/2013 0.23 ng/mL 06/24/2013 0.23 ng/mL PSA. (no units) Date Value 03/14/2022 0.48 12/14/2020 0.20 09/15/2017 0.15 11/10/2015 1.36 PSA 0.19 01/15/2020 PSA 0.16 11/12/2019 PSA 0.14 10/23/2018 PSA 0.18 04/20/2018 PSA 0.15 09/15/2017 Latest Reference Range AND Units 06/02/22 13:12 Testosterone 193 - 824 ng/dL <12 (L) (L): Data is abnormally low ALLERGIES: ALLERGIES Allergen Reactions Chlorhexidine Rash Hibaclens [Other] Rash MEDICATIONS: irbesartan (AVAPRO) 300 mg tablet Take 300 mg by mouth once daily. cloNIDine HCl (CATAPRES) 0.1 mg tablet Take 0.1 mg by mouth twice daily. Prn systolic >160 metoprolol succinate ER (TOPROL XL) 25 mg 24 hr tablet Take 25 mg by mouth once daily. pantoprazole DR (PROTONIX) 40 mg tablet Take 40 mg by mouth once daily. fluticasone-vilanterol (BREO ELLIPTA) 100-25 mcg/dose inhaler Inhale 1 Inhalation as instructed once daily. oxybutynin XL (DITROPAN XL) 5 mg 24 hr tablet Take 5 mg by mouth twice daily. escitalopram oxalate (LEXAPRO) 20 mg tablet Take 20 mg by mouth once daily. doxazosin mesylate (CARDURA ORAL) Take 6 mg by mouth. hydroCHLOROthiazide (HYDRODIURIL, ESIDRIX) 25 mg tablet Take 25 mg by mouth once daily. calcium-cholecalciferol, D3, (OSCAL+D 250) 250 mg-3.125 mcg (125 unit) per tablet Take 1 tablet by mouth once daily. ascorbic acid, vitamin C, (VITAMIN C) 500 mg tablet Take 500 mg by mouth once daily. MULTI-VITAMIN ORAL Take by mouth. traZODone (DESYREL) 50 mg tablet Take 50 mg by mouth daily at bedtime. tamsulosin (FLOMAX) 0.4 mg Take 0.4 mg by mouth once daily. 2 daily Vitamin E, dl, acetate, (VITAMIN E) 400 unit capsule Take 400 Units by mouth once daily. Simethicone 125 mg cap Take by mouth. aspirin, enteric coated (ASPIRIN, ENTERIC COATED) 81 mg EC tablet Take 81 mg by mouth once daily. naproxen sodium (ANAPROX) 220 mg tablet Take 220 mg by mouth twice daily with meals. Docusate Sodium 100 mg tab Take 2 tablets by mouth. Cetirizine (ZYRTEC) 10 mg cap Take by mouth. denosumab (PROLIA) 60 mg/mL Inject 60 mg subcutaneously one time only. leuprolide, 6 month, (LUPRON DEPOT, 6 MONTH,) sykt IM syringe kit Inject 45 mg intramuscularly one time only. tolterodine ER (DETROL LA) 4 mg 24 hr capsule 4 mg. levoFLOXacin (LEVAQUIN) 500 mg tablet Take 500 mg by mouth once daily. enzalutamide (XTANDI) 40 mg tablet Take 4 tablets (160 mg) by mouth once daily. enzalutamide (XTANDI) 80 mg tablet Take 2 tablets (160 mg) by mouth once daily. vitamin D3-folic acid 125 mcg (5,000 unit)-1 mg tab Take by mouth. PERTINENT REVIEW OF SYSTEMS: Hematuria: none Dysuria: none Incontinence: none Urgency:mild Catheter use: none Medications to aid urination: Yes - Total AUA Score: 11 Bowel movement frequency: 1-3/day Bowel movement quality: normal Blood per rectum: none lupron restarted 01/29 PHYSICAL EXAM: 08/18/22 1309 BP: 90/54 Pulse: 61 Resp: 16 Temp: 36.7 ?C (98 ?F) SpO2: 98% Weight: 81.6 kg (179 lb 12.8 oz) KPS: 100 General appearance: Alert and oriented. No acute distress. Skin: Skin color, texture, turgor normal, no suspicious rashes or lesions. ASSESSMENT/PLAN: 1. Bladder cancer. doing well without evidence of recurrence has continued follow-up with his urologist. 2 Prostate cancer Kita 8, node positive with prior treatment including pelvic radiation as well as androgen ablative therapy, (more content not included)... Normal [facility] HNO ID: [id number] Author: RT Alyssia(R) Service: Radiology Author Type: Technologist Type: Allied Health Filed: 08/15/2022 1:43 PM Note Text: Radiology Service Progress Note PATIENT NAME: Jm Barrow DATE OF SERVICE: August 15, 2022 TIME: 1:43 PM PATIENT IDENTITY VERIFICATION COMPLETED USING TWO (2) IDENTIFIERS: Name and Date of confirmed by patient verbally. FALL SCREENING: Has the patient had 2 falls in the last year or 1 fall with injury or currently using an Ambulatory Assistive Device (Walker, Cane, Wheelchair, Crutches, etc.)? No PATIENT GENDER DATA: Male PATIENT RELEVANT IMPLANT DATA REVIEWED: Yes RADIOLOGY DEPARTMENT: MR; Exam(s) Completed: Body: Prostate PERIPHERAL IV DATA: Inpatient: see LDA documentation SIGNED BY: RT Alyssia(R) August 15, 2022 1:43 PM [facility] MRI PROSTATE WO/W IVCONon MRI PROSTATE WO/W IVCON * * *Final Report* * * DATE OF EXAM: Aug 15 2022 1:44PM [facility] 0751 - MRI PROSTATE WO/W IVCON / PROCEDURE REASON: Cancer of prostate w/med recur risk (T2b-c or Kita 7 or PSA 10-20) ([facility]) * * * * Physician Interpretation * * * * EXAMINATION: MRI PELVIS WITHOUT AND WITH IV CONTRAST (MULTIPARAMETRIC PROSTATE MRI) CLINICAL HISTORY: 76 year old with history of prostate cancer biochemical recurrence. Previous biopsy: Positive, 01/20/2000 PSA: 0.2 ng/mL (07/07/2022); 0.5 ng/mL (06/02/2022) Prior therapy: Initial treatment external beam radiation, anti-androgen therapy, with biochemical recurrence TECHNIQUE: Multiparametric MRI of the prostate and pelvis performed on a 3T scanner utilizing phase pelvic coil. Sequences obtained: multiplanar T2-WI with small FOV; Axial DWI with multiple B-values and creation of ADC-maps; DCE T1-weighted images through the prostate obtained before, during and after the administration of intravenous gadolinium; prostate dimensions and volume were obtained using a semi-automated software ([employer]). CONTRAST: IV: 16 cc of Dotarem. COMPARISON: PSMA PET/CT 06/02/2022 RESULT: Prostate: Dimensions: 3.6 x 3.1 x 3.6 cm corresponding to a volume of approximately 16 cc. Post biopsy hemorrhage: Absent Peripheral zone: Diffuse T2/ADC map hypointensity (PI-RADS 2). No focal lesion present. Transition zone: Lesion #1: Location: right mid transition zone Greatest dimension: 1.5-cm (series:5; image:17) T2-WI: T2 hypointense DWI/ADC: 1.5 cm region of mild diffusion restriction in the right mid transition zone, roughly corresponding to the area of abnormal PSMA uptake DCE: Positive Extra-prostatic extension: Absent (no capsule/AFM contact) Neurovascular bundle: Unremarkable. Seminal vesicles: Unremarkable. Adjacent Organ Involvement: Not applicable. Lymph nodes: Stable prominent bilateral inguinal lymph nodes, not tracer avid on recent PSMA PET. Bladder: Unremarkable. Pelvic bones: No suspicious pelvic osseous lesions. Expanded sacral foramina with Tarlov cysts. Other Findings: None. IMPRESSION: Region of asymmetric, mildly restricted diffusion in the right mid transition zone, roughly corresponding to the area of abnormal PSMA uptake and possibly a site of recurrence. This was targeted for potential fusion biopsy. No pelvic lymphadenopathy or suspicious osseous lesion. Number of targets created for MR/US fusion biopsy: Peripheral zone: 0 Transition zone: 1 If present, targets were numbered in order of level of suspicion for clinically significant prostate cancer ([place] score 3 + 4 or higher). PI-RADS v2.1 Assessment Categories: PI-RADS 1: Clinically significant cancer is highly unlikely PI-RADS 2: Clinically significant cancer is unlikely PI-RADS 3: Clinically significant cancer is equivocal PI-RADS 4: Clinically significant cancer is likely PI-RADS 5: Clinically significant cancer is highly likely Programming Director: IVA Transcribe Date/Time: Aug 15 2022 2:35P Dictated by : SARAI AYERS, DO This examination was interpreted and the report reviewed and electronically signed by: CINTIA SOLORZANO MD on Aug 15 2022 5:43PM EST [id number] Normal [facility] NURSING PROGon 08-15-2022 NURSING PROG HNO ID: [id number] Author: Keila Hsu RN Service: PICC Team Author Type: Registered Nurse Type: Nursing Progress Note Filed: 08/15/2022 12:43 PM Note Text: Radiology Service Progress Note DATE OF SERVICE: August 15, 2022 TIME: 12:43 PM PATIENT WEIGHT: 144LBS PATIENT IDENTITY VERIFICATION COMPLETED USING TWO (2) STANDARD IDENTIFIERS: Name and Date of confirmed by patient verbally and Name and Date of confirmed by identification band. FALL SCREENING: Has the patient had 2 falls in the last year or 1 fall with injury or currently using an Ambulatory Assistive Device (Walker, Cane, Wheelchair, Crutches, etc.)? No PATIENT GENDER DATA: Male ALLERGIES: Reviewed and unchanged CONTRAST ALLERGY: No EXAM: MRI - CONTRAST TYPE: GROUP II IV SITE: Ambulatory: A peripheral IV was started in the Right with a Angio cath: 22 gauge. IV SITE APPEARANCE: Clean,Dry and Intact SIGNATURE: Keila Hsu RN PATIENT NAME: Jm Barrow DATE: August 15, 2022 TIME: 12:43 PM Normal [facility] CBC AUTO DIFFon 08-01-2022 BASO # 0.1 103/ul Normal 0.0-0.1 [facility] Comment on above: Performed By: #### C JEMIMA, SORAIDA #### [facility] [address] [place] [address] Dr. Samantha Samuels Basophils/100 WBC (Bld) 1.0 % Normal 0.2-2.0 [facility] Comment on above: Performed By: #### C JEMIMA, CMADM #### [facility] [address] [place] [address] Dr. Samantha Samuels EO # 0.5 103/ul Normal 0.0-0.7 [facility] Comment on above: Performed By: #### C JEMIMA, PHYLLISDM #### [facility] [address] [place] [address] Dr. Samantha Samuels Eosinophils/100 WBC (Bld) 7.9 % Critically high 0.9-7.0 [facility] Comment on above: Performed By: #### C JEMIMA, PHYLLISDM #### [facility] [address] [place] [address] Dr. Samantha Samuels Erythrocyte distribution width (RBC) [Ratio] 12.8 % Normal 11.0-15.0 [facility] Comment on above: Performed By: #### C SORAIDA ONOFRE #### [facility] [address] [place] [address] Dr. Samantha Samuels Hematocrit (Bld) [Volume fraction] 40.1 % Critically low 42.0-54.0 [facility] Comment on above: Performed By: #### C JEMIMA, CMADM #### [facility] [address] [place] [address] Dr. Samantha Samuels Hemoglobin (Bld) [Mass/Vol] 13.9 g/dL Critically low 14.0-18.0 [facility] Comment on above: Performed By: #### C JEMIMA, CMADM #### [facility] [address] [place] [address] Dr. Samantha Samuels IG # 0.01 10e3/ul Normal 0.00-0.03 [facility] Comment on above: Performed By: #### C JEMIMA, CMADM #### [facility] [address] [place] [address] [address] Samantha Samuels IG % 0.2 % Normal 0.0-0.5 [facility] Comment on above: Performed By: #### C MP, CMADM #### [facility] [address] [place] [address] [address] Samantha Samuels LYMPH # 1.8 103/ul Normal 1.2-3.8 [facility] Comment on above: Performed By: #### C JEMIMA, CMADM #### [facility] [address] [place] [address] [address] Samantha Samuels Lymphocytes/100 WBC (Bld) 28.8 % Normal 20.5-60.0 [facility] Comment on above: Performed By: #### C JEMIMA, CMADM #### [facility] [address] [place] [address] Dr. Samantha Samuels MANUAL DIFF REQ NO Normal [facility] Comment on above: Performed By: #### C JEMIMA, CMADM #### [facility] [address] [place] [address] Dr. Samantha Samuels MCH (RBC) [Entitic mass] 32.3 pg Normal 25.9-34.0 [facility] Comment on above: Performed By: #### C JEMIMA, CMADM #### [facility] [address] [place] [address] Dr. Samantha Samuels MCHC (RBC) [Mass/Vol] 34.7 g/dL Normal 29.9-35.2 [facility] Comment on above: Performed By: #### C MP, CMADM #### [facility] [address] [place] [address] [address] Samantha Samuels MCV (RBC) [Entitic vol] 93.0 fL Normal 80.0-94.0 [facility] Comment on above: Performed By: #### C JEMIMA, CMADM #### [facility] [address] [place] [address] [address] Samantha Samuels MONO # 0.6 103/ul Normal 0.3-0.8 [facility] Comment on above: Performed By: #### C JEMIMA, CMADM #### [facility] [address] [place] [address] [address] Samantha Samuels Monocytes/100 WBC (Bld) 9.7 % Normal 1.7-12.0 [facility] Comment on above: Performed By: #### C MP, CMADM #### [facility] [address] [place] [address] [address] Samantha Samuels NEUT # 3.3 103/ul Normal 1.4-6.5 [facility] Comment on above: Performed By: #### C MP, CMADM #### [facility] [address] [place] [address] [address] Samantha Samuels Neutrophils/100 WBC (Bld) 52.4 % Normal 43.0-75.0 [facility] Comment on above: Performed By: #### C MP, CMADM #### [facility] [address] [place] [address] Dr. Samantha Samuels Platelet mean volume (Bld) [Entitic vol] 9.4 fL Critically low 9.5-13.5 [facility] Comment on above: Performed By: #### C JEMIMA, CMADM #### [facility] [address] [place] [address] [address] Samantha Samuels PLT 227 103/ul Normal 150-450 [facility] Comment on above: Performed By: #### C MP, CMADM #### [facility] [address] [place] [address] [address] Samantha Samuels RBC 4.31 106/ul Critically low 4.70-6.10 [facility] Comment on above: Performed By: #### C MP, CMADM #### [facility] [address] [place] [address] [address] Samantha Samuels WBC 6.3 103/ul Normal 4.0-11.0 [facility] Comment on above: Performed By: #### C MP, CMADM #### [facility] [address] [place] [address] [address] Samantha Samuels Covid-19 PCR ([facility])on 07-14 SARS-CoV-2 (COVID-19) RNA DELIA+probe Ql (Unsp spec) Not detected Normal NOT DETECTED [facility] Comment on above: Result Comment: When diagnostic testing is negative, the possibility of a false negative should be considered in the context of a patient's recent exposures and the presence of clinical signs and symptoms consistent with SARS-CoV-2. This test is not yet approved or cleared by the [place] FDA. When there are no FDA-approved or cleared tests available, and other criteria are met, FDA can make tests available under an emergency access mechanism called an Emergency Use Authorization (EUA). The EUA for this test is supported by the [place] of Health and Human Service's declaration that circumstances exist to justify the emergency use of in vitro diagnostics for the detection and/or diagnosis of the virus that causes COVID-19. This EUA will remain in effect for the duration of the COVID-19 declaration justifying emergency of IVDs, unless it is terminated or revoked by the FDA (after which the test may no longer be used). Performed By: #### [facility] #### [facility] [address] [place] [address] Dr. Samantha Samuels PROF 14(COMP METB)on 023 Albumin [Mass/Vol] 3.8 g/dL Normal 3.4-5.0 [facility] Comment on above: Performed By: #### C SORAIDA ONOFRE #### [facility] [address] [place] [address] Dr. Samantha Samuels Albumin/Globulin [Mass ratio] 1.2 {ratio} Normal [facility] Comment on above: Performed By: #### C PHYLLIS ONOFREDM #### [facility] [address] [place] [address] Dr. Samantha Samuels ALP [Catalytic activity/Vol] 73 U/L Normal 46-116 [facility] Comment on above: Performed By: #### C SORAIDA ONOFRE #### [facility] [address] [place] [address] Dr. Samantha Samuels ALT [Catalytic activity/Vol] 16 U/L Normal 16-63 [facility] Comment on above: Performed By: #### C SORAIDA ONOFRE #### [facility] [address] [place] [address] [address] Samantha Samuels Anion gap [Moles/Vol] 9.0 mmol/L Normal [facility] Comment on above: Performed By: #### C JEMIMA, PHYLLISDM #### [facility] [address] [place] [address] [address] Samantha Samuels AST [Catalytic activity/Vol] 18 U/L Normal 15-37 [facility] Comment on above: Performed By: #### C JEMIMA, CMADM #### [facility] [address] [address] [address] Samantha Samuels Bilirubin [Mass/Vol] 0.4 mg/dL Normal 0.2-1.0 [facility] Comment on above: Performed By: #### C JEMIMA, CMADM #### [facility] [address] [place] [address] Dr. Samantha Samuels Calcium [Mass/Vol] 9.5 mg/dL Normal 8.5-10.1 [facility] [place] Comment on above: Performed By: #### C JEMIMA, CMADM #### [facility] [address] [address] [address] Samantha Samuels Chloride [Moles/Vol] 106 mmol/L Normal 98-107 [facility] Comment on above: Performed By: #### C JEMIMA, CMADM #### [facility] [address] [address] [address] Samantha Samuels CO2 [Moles/Vol] 31.1 mmol/L Normal 21.0-32.0 [facility] Comment on above: Performed By: #### C JEMIMA, CMADM #### [facility] [address] [address] [address] Samantha Samuels Creatinine [Mass/Vol] 0.83 mg/dL Normal 0.70-1.30 [facility] Comment on above: Performed By: #### C JEMIMA, CMADM #### [facility] [address] [address] [address] Samantha Samuels EGFR-AF BENINESE >60 Normal >=60 [facility] Comment on above: Performed By: #### C JEMIMA, CMADM #### [facility] [address] [address] [address] Samantha Samuels EGFR-NON AF BENINESE >60 Normal >=60 [facility] Comment on above: Performed By: #### C MP, CMADM #### [facility] [address] [address] [address] Samantha Samuels Globulin (S) [Mass/Vol] 3.2 g/dL Normal [facility] Comment on above: Performed By: #### C MP, CMADM #### [facility] [address] [address] [address] Samantha Samuels Glucose [Mass/Vol] 100 mg/dL Normal 74-106 [facility] [place] Comment on above: Performed By: #### C JEMIMA, CMADM #### [facility] [address] [place] [address] Dr. Samantha Samuels Potassium [Moles/Vol] 4.1 mmol/L Normal 3.5-5.1 [facility] Comment on above: Performed By: #### C JEMIMA, CMADM #### [facility] [address] [address] [address] Samantha Samuels Protein [Mass/Vol] 7.0 g/dL Normal 6.4-8.2 [facility] [place] Comment on above: Performed By: #### C JEMIMA, CMADM #### [facility] [address] [address] [address] Samantha Samuels Sodium [Moles/Vol] 142 mmol/L Normal 136-145 [facility] [place] Comment on above: Performed By: #### C JEMIMA, CMADM #### [facility] [address] [address] [address] Samantha Samuels Urea nitrogen [Mass/Vol] 21.0 mg/dL Critically high 7.0-18.0 [facility] Comment on above: Performed By: #### C JEMIMA, CMADM #### [facility] [address] [address] [address] Samantha Samuels Urea nitrogen/Creatinin e [Mass ratio] 25.3 mg/mg Normal [facility] Comment on above: Performed By: #### C JEMIMA, CMADM #### [facility] [address] [address] [address] Samantha Samuels CARDIAC DAWNA ADMITon 023 CK [Catalytic activity/Vol] 101 U/L Normal 39-308 [facility] Comment on above: Performed By: #### C MP, CMADM #### [facility] [address] [address] [address] Samantha Samuels CK.MB [Mass/Vol] 2.00 ng/mL Normal <=3.60 [facility] Comment on above: Performed By: #### C JEMIMA, CMADM #### [facility] [address] [address] [address] Samantha Samuels HSTROP 5.3 pg/mL Normal 4.0-76.1 [facility] Comment on above: Result Comment: CUT- OFF POINTS HAVE BEEN ESTABLISHED BASED ON THE FOURTH UNIVERSAL DEFINITIONS OF MYOCARDIAL INFARCTION. THE UPPER REFERENCE LIMIT (URL) OF TROPONIN, DEFINED THE 99TH PERCENTILE OF cTnI DISTRIBUTION IN A REFERENCE POPULATION, HAS BEEN CONFIRMED THE DECISION THRESHOLD FOR [place] DIAGNOSIS. Performed By: #### C JEMIMA, CMADM #### [facility] [address] [place] [address] Dr. Samantha Saumels JOSE 54 ng/mL Normal 16-96 [facility] Comment on above: Performed By: #### C JEMIMA, CMADM #### [facility] [address] [place] [address] Dr. Samantha Samuels CBC AUTO DIFFon 07-31-2022 BASO # 0.1 103/ul Normal 0.0-0.1 [facility] Comment on above: Performed By: #### C JEMIMA, CMADM #### [facility] [address] [place] [address] Dr. Samantha Samuels Basophils/100 WBC (Bld) 1.0 % Normal 0.2-2.0 [facility] Comment on above: Performed By: #### C MP, CMADM #### [facility] [address] [place] [address] Dr. Samantha Samuels EO # 0.6 103/ul Normal 0.0-0.7 [facility] Comment on above: Performed By: #### C JEMIMA, PHYLLISDM #### [facility] [address] [place] [address] Dr. Samantha Samuels Eosinophils/100 WBC (Bld) 9.4 % Critically high 0.9-7.0 [facility] Comment on above: Performed By: #### C JEMIMA, PHYLLISDM #### [facility] [address] [place] [address] Dr. Samantha Samuels Erythrocyte distribution width (RBC) [Ratio] 12.7 % Normal 11.0-15.0 [facility] Comment on above: Performed By: #### C JEMIMA, PHYLLISDM #### [facility] [address] [place] [address] Dr. Samantha Samuels Hematocrit (Bld) [Volume fraction] 39.7 % Critically low 42.0-54.0 [facility] Comment on above: Performed By: #### C PHYLLIS ONOFREDM #### [facility] [address] [place] [address] Dr. Samantha Samuels Hemoglobin (Bld) [Mass/Vol] 13.7 g/dL Critically low 14.0-18.0 [facility] Comment on above: Performed By: #### C PHYLLIS ONOFREDM #### [facility] [address] [place] [address] Dr. Samantha Samuels IG # 0.01 10e3/ul Normal 0.00-0.03 [facility] Comment on above: Performed By: #### C PHYLLIS ONOFREDM #### [facility] [address] [place] [address] Dr. Samantha Samuels IG % 0.2 % Normal 0.0-0.5 [facility] Comment on above: Performed By: #### C JEMIMA, PHYLLISDM #### [facility] [address] [place] [address] Dr. Samantha Samuels LYMPH # 2.2 103/ul Normal 1.2-3.8 [facility] Comment on above: Performed By: #### C JEMIMA, PHYLLISDM #### [facility] [address] [place] [address] Dr. Samantha Samuels Lymphocytes/100 WBC (Bld) 36.8 % Normal 20.5-60.0 [facility] Comment on above: Performed By: #### C JEMIMA, PHYLLISDM #### [facility] [address] [place] [address] Dr. Samantha Samuels MANUAL DIFF REQ NO Normal [facility] Comment on above: Performed By: #### C JEMIMA, CMADM #### [facility] [address] [place] [address] Dr. Samantha Samuels MCH (RBC) [Entitic mass] 32.2 pg Normal 25.9-34.0 [facility] Comment on above: Performed By: #### C JEMIMA, PHYLLISDM #### [facility] [address] [place] [address] Dr. Samantha Samuels MCHC (RBC) [Mass/Vol] 34.5 g/dL Normal 29.9-35.2 [facility] Comment on above: Performed By: #### C PHYLLIS ONOFREDM #### [facility] [address] [place] [address] Dr. Samantha Samuels MCV (RBC) [Entitic vol] 93.2 fL Normal 80.0-94.0 [facility] Comment on above: Performed By: #### C JEMIMA, PHYLLISDM #### [facility] [address] [place] [address] Dr. Samantha Samuels MONO # 0.6 103/ul Normal 0.3-0.8 [facility] Comment on above: Performed By: #### C JEMIMA, PHYLLISDM #### [facility] [address] [place] [address] Dr. Samantha Samuels Monocytes/100 WBC (Bld) 10.9 % Normal 1.7-12.0 [facility] Comment on above: Performed By: #### C JEMIMA, CMADM #### [facility] [address] [place] [address] Dr. Samantha Samuels NEUT # 2.5 103/ul Normal 1.4-6.5 [facility] Comment on above: Performed By: #### C JEMIMA, PHYLLISDM #### [facility] [address] [address] [address] Samantha Samuels Neutrophils/100 WBC (Bld) 41.7 % Critically low 43.0-75.0 [facility] Comment on above: Performed By: #### C JEMIMA, CMADM #### [facility] [address] [address] [address] Samantha Samuels Platelet mean volume (Bld) [Entitic vol] 9.3 fL Critically low 9.5-13.5 [facility] Comment on above: Performed By: #### C JEMIMA, CMADM #### [facility] [address] [address] [address] Samantha Samuels PLT 225 103/ul Normal 150-450 [facility] Comment on above: Performed By: #### C JEMIMA, CMADM #### [facility] [address] [place] [address] Dr. Samantha Samuels RBC 4.26 106/ul Critically low 4.70-6.10 [facility] Comment on above: Performed By: #### C JEMIMA, CMADM #### [facility] [address] [address] [address] Samantha Samuels WBC 5.9 103/ul Normal 4.0-11.0 [facility] Comment on above: Performed By: #### C JEMIMA, CMADM #### [facility] [address] [place] [address] HEAD WO CONon 07-31-2022 CT HEAD WO CON EXAM: CT HEAD WO CON COMPARISON: 07/27/2018. CLINICAL INFORMATION: Blurred vision, dizziness, hypertension. TECHNIQUE: Axial noncontrast images were obtained through the brain and reconstructed using brain and bone algorithms with sagittal and coronal reconstructions. Dose reduction techniques were achieved by using automated exposure control and/or adjustment of mA and/or kV according to patient size and/or use of iterative reconstruction technique. FINDINGS: BRAIN: No intracranial hemorrhage. No extra-axial collection. No mass or mass effect. No midline shift. Bermudez-white matter differentiation is preserved. Scattered age-related chronic microvascular ischemic change of the supratentorial white matter again seen. CSF: Ventricles and sulci appropriate for age. Basal cisterns are patent. ORBITS: Prior cataract surgery. No acute abnormality. 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 Paranasal sinuses otherwise clear. Mastoid air cells are clear. BONES: No acute osseous abnormality. SOFT TISSUES: Unremarkable. IMPRESSION: No acute intracranial abnormality. Electronically authenticated by: RONDA ALBRIGHT Date: 2022-07-31 20:08 Normal [facility] PROF 14(COMP METB)on 023 Albumin [Mass/Vol] 3.8 g/dL Normal 3.4-5.0 [facility] Comment on above: Performed By: #### C JEMIMA, CMADM #### [facility] [address] [address] [address] Samantha Samuels Albumin/Globulin [Mass ratio] 1.2 {ratio} Normal [facility] Comment on above: Performed By: #### C JEMIMA, CMADM #### [facility] [address] [address] [address] Samantha Samuels ALP [Catalytic activity/Vol] 61 U/L Normal 46-116 [facility] Comment on above: Performed By: #### C JEMIMA, CMADM #### [facility] [address] [address] [address] Samantha Samuels ALT [Catalytic activity/Vol] 18 U/L Normal 16-63 [facility] Comment on above: Performed By: #### C JEMIMA, CMADM #### [facility] [address] [address] [address] Samantha Samuels Anion gap [Moles/Vol] 8.0 mmol/L Normal [facility] Comment on above: Performed By: #### C JEMIMA, CMADM #### [facility] [address] [address] [address] Samantha Samuels AST [Catalytic activity/Vol] 18 U/L Normal 15-37 [facility] Comment on above: Performed By: #### C JEMIMA, CMADM #### [facility] [address] [address] [address] Samantha Samuels Bilirubin [Mass/Vol] 0.4 mg/dL Normal 0.2-1.0 [facility] Comment on above: Performed By: #### C MP, CMADM #### [facility] [address] [address] [address] Samantha Samuels Calcium [Mass/Vol] 9.3 mg/dL Normal 8.5-10.1 [facility] [place] Comment on above: Performed By: #### C MP, CMADM #### [facility] [address] [address] [address] Samantha Samuels Chloride [Moles/Vol] 105 mmol/L Normal 98-107 [facility] Comment on above: Performed By: #### C MP, CMADM #### [facility] [address] [address] [address] Samantha Samuels CO2 [Moles/Vol] 33.2 mmol/L Critically high 21.0-32.0 [facility] Comment on above: Performed By: #### C MP, CMADM #### [facility] [address] [address] [address] Samantha Samuels Creatinine [Mass/Vol] 0.74 mg/dL Normal 0.70-1.30 [facility] Comment on above: Performed By: #### C MP, CMADM #### [facility] [address] [address] [address] Samantha Samuels EGFR-AF BENINESE >60 Normal >=60 [facility] Comment on above: Performed By: #### C MP, CMADM #### [facility] [address] [address] [address] Samantha Samuels EGFR-NON AF BENINESE >60 Normal >=60 [facility] Comment on above: Performed By: #### C MP, CMADM #### [facility] [address] [address] [address] Samantha Samuels Globulin (S) [Mass/Vol] 3.2 g/dL Normal [facility] Comment on above: Performed By: #### C MP, CMADM #### [facility] [address] [address] [address] Samantha Samuels Glucose [Mass/Vol] 90 mg/dL Normal 74-106 [facility] [place] Comment on above: Performed By: #### C MP, CMADM #### [facility] [address] [place] [address] Dr. Samantha Samuels Potassium [Moles/Vol] 4.2 mmol/L Normal 3.5-5.1 [facility] Comment on above: Performed By: #### C MP, CMADM #### [facility] [address] [place] [address] Dr. Samantha Samuels Protein [Mass/Vol] 7.0 g/dL Normal 6.4-8.2 [facility] Comment on above: Performed By: #### C MP, CMADM #### [facility] [address] [place] [address] Dr. Samantha Samuels Sodium [Moles/Vol] 142 mmol/L Normal 136-145 [facility] Comment on above: Performed By: #### C MP, CMADM #### [facility] [address] [place] [address] Dr. Samantha Samuels Urea nitrogen [Mass/Vol] 18.0 mg/dL Normal 7.0-18.0 [facility] Comment on above: Performed By: #### C MP, CMADM #### [facility] [address] [place] [address] Dr. Samantha Samuels Urea nitrogen/Creatinin e [Mass ratio] 24.3 mg/mg Normal [facility] Comment on above: Performed By: #### C MP, CMADM #### [facility] [address] [place] [address] Dr. Samantha Spangler 07-25-2022 PRATIMA Telephone (HEMASA) JM BARROW ([id number]) 1945 M Date Time Provider Department 07/25/22 KIERA ANGELO During your visit today, we recorded the following information about you: Kiera Angelo RN 07/25/2022 2:05 PM Signed Pt calls stating he can't take the xtandi anymore. States his blood pressure has been elevated and he went to [facility] this past week for that. Pt states he was started on metoprolol and on other med that he can't remember the name of. . Barbara: please get records BRM: please advise HITESH Casillas MD 07/25/2022 2:42 PM Signed Okay to hold enzalutamide for now. When he returns we will discuss other options. Ema Meehan RN 07/25/2022 4:03 PM Signed Patient notified and agreeable to stop enzalutamide will have MRI on 08/15/22 and follow up with Dr. Guzman on 08/18/22. Patient does not follow up with Dr. Broussard until 09/22/22. Would you like to move that appointment up? HITESH Phelan MD 07/25/2022 4:24 PM Signed I will ask Dr. Guzman to touch base with me after the MRI and his appointment. My follow-up depends on scan results and radiation/cryoablation recommendations. Okay to leave my appointment as is for now, and we can change it later if necessary. Thanks, Ema Dale RN 07/28/2022 2:[address]'s recommendations left on pt's personalized voicemail. Advised he call w/ any further questions. Umer Dale RN Allergies As of Date: 07/25/2022 Noted Allergy Reaction CHLORHEXIDINE 05/21/2013 2 - Rash hibaclens [Other] 06/02/2011 2 - Rash Date Reviewed: 07/18/2022 Reviewed by: Lola Allen OD - Fully Assessed Reason for Visit: Care Coordination [4216] Cmt: Medication update Prescriptions as of 07/28/2022 - metoprolol succinate ER (TOPROL XL) 25 mg 24 hr tablet Take 25 mg by mouth once daily. - tolterodine ER (DETROL LA) 4 mg 24 hr capsule 4 mg. - levoFLOXacin (LEVAQUIN) 500 mg tablet Take 500 mg by mouth once daily. - enzalutamide (XTANDI) 40 mg tablet Take 4 tablets (160 mg) by mouth once daily. - pantoprazole DR (PROTONIX) 40 mg tablet Take 40 mg by mouth once daily. - enzalutamide (XTANDI) 80 mg tablet Take 2 tablets (160 mg) by mouth once daily. - fluticasone-vilanterol (BREO ELLIPTA) 100-25 mcg/dose inhaler Inhale 1 Inhalation as instructed once daily. - oxybutynin XL (DITROPAN XL) 5 mg 24 hr tablet Take 5 mg by mouth twice daily. - escitalopram oxalate (LEXAPRO) 20 mg tablet Take 20 mg by mouth once daily. - doxazosin mesylate (CARDURA ORAL) Take 0.5 mg by mouth. - hydroCHLOROthiazide (HYDRODIURIL, ESIDRIX) 25 mg tablet Take 25 mg by mouth once daily. - calcium-cholecalciferol, D3, (OSCAL+D 250) 250 mg-3.125 mcg (125 unit) per tablet Take 1 tablet by mouth once daily. - vitamin D3-folic acid 125 mcg (5,000 unit)-1 mg tab Take by mouth. - ascorbic acid, vitamin C, (VITAMIN C) 500 mg tablet Take 500 mg by mouth once daily. - MULTI-VITAMIN ORAL Take by mouth. - traZODone (DESYREL) 50 mg tablet Take 50 mg by mouth daily at bedtime. - tamsulosin (FLOMAX) 0.4 mg Take 0.4 mg by mouth once daily. 2 daily - Vitamin E, dl, acetate, (VITAMIN E) 400 unit capsule Take 400 Units by mouth once daily. - Simethicone 125 mg cap Take by mouth. - aspirin, enteric coated (ASPIRIN, ENTERIC COATED) 81 mg EC tablet Take 81 mg by mouth once daily. - naproxen sodium (ANAPROX) 220 mg tablet Take 220 mg by mouth twice daily with meals. - Docusate Sodium 100 mg tab Take 2 tablets by mouth. - Cetirizine (ZYRTEC) 10 mg cap Take by mouth. - denosumab (PROLIA) 60 mg/mL Inject 60 mg subcutaneously one time only. - leuprolide, 6 month, (LUPRON DEPOT, 6 MONTH,) sykt IM syringe kit Inject 45 mg intramuscularly one time only. 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 Jm let me know that he plans to stop taking the Xtandi due to a wide range of side effects including: blood pressure issues, aches and pains, bowel issues, and feeling like he is in a fog most of the time. He asked me to pass this information on to Dr. Broussard. Jose Francisco Broussard MD 07/13/2022 12:55 PM Signed Thanks for the update. If you have a chance to get back to him I definitely would recommend he cut the dose in half to see how the side effects are before he stops altogether. Thanks, BRM Umer Dale RN 07/13/2022 1:40 PM Signed Pt notified and verbalizes understanding. Will call us back if his symptoms persist despite reduced dose. Umer Dale RN Allergies As of Date: 07/13/2022 Noted Allergy Reaction CHLORHEXIDINE 05/21/2013 2 - Rash hibaclens [Other] 06/02/2011 2 - Rash Date Reviewed: 07/07/2022 Reviewed by: Deyanira Haskins MA - Fully Assessed Reason for Visit: Medication Problem [65] Prescriptions as of 07/13/2022 - enzalutamide (XTANDI) 40 mg tablet Take 4 tablets (160 mg) by mouth once daily. - pantoprazole DR (PROTONIX) 40 mg tablet Take 40 mg by mouth once daily. - enzalutamide (XTANDI) 80 mg tablet Take 2 tablets (160 mg) by mouth once daily. - fluticasone-vilanterol (BREO ELLIPTA) 100-25 mcg/dose inhaler Inhale 1 Inhalation as instructed once daily. - oxybutynin XL (DITROPAN XL) 5 mg 24 hr tablet Take 5 mg by mouth twice daily. - escitalopram oxalate (LEXAPRO) 20 mg tablet Take 20 mg by mouth once daily. - doxazosin mesylate (CARDURA ORAL) Take 0.5 mg by mouth. - hydroCHLOROthiazide (HYDRODIURIL, ESIDRIX) 25 mg tablet Take 25 mg by mouth once daily. - calcium-cholecalciferol, D3, (OSCAL+D 250) 250 mg-3.125 mcg (125 unit) per tablet Take 1 tablet by mouth once daily. - vitamin D3-folic acid 125 mcg (5,000 unit)-1 mg tab Take by mouth. - ascorbic acid, vitamin C, (VITAMIN C) 500 mg tablet Take 500 mg by mouth once daily. - MULTI-VITAMIN ORAL Take by mouth. - traZODone (DESYREL) 50 mg tablet Take 50 mg by mouth daily at bedtime. - tamsulosin (FLOMAX) 0.4 mg Take 0.4 mg by mouth once daily. 2 daily - Vitamin E, dl, acetate, (VITAMIN E) 400 unit capsule Take 400 Units by mouth once daily. - Simethicone 125 mg cap Take by mouth. - aspirin, enteric coated (ASPIRIN, ENTERIC COATED) 81 mg EC tablet Take 81 mg by mouth once daily. - naproxen sodium (ANAPROX) 220 mg tablet Take 220 mg by mouth twice daily with meals. - Docusate Sodium 100 mg tab Take 2 tablets by mouth. - Cetirizine (ZYRTEC) 10 mg cap Take by mouth. - denosumab (PROLIA) 60 mg/mL Inject 60 mg subcutaneously one time only. - leuprolide, 6 month, (LUPRON DEPOT, 6 MONTH,) sykt IM syringe kit Inject 45 mg intramuscularly one time only. 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] 06/23/2021 Encounter Status:Closed by UMER DALE on 07/13/22 Normal [facility] CBC W Auto Differential pane l (Bld)on 07-07-2022 Basophils (Bld) [#/Vol] 0.03 10*3/uL Normal <0.11 [facility] Comment on above: Order Comment: Speci men Type: BLOOD SPECIMENOrdering Facility: [facility] Address: [address] [place] [address] Performed By: #### 5 7021-8 ####[facility] LABCLIA [id number] [place] [address] Basophils/100 WBC (Bld) 0.4 % Normal [facility] Comment on above: Order Comment: Speci men Type: BLOOD SPECIMENOrdering Facility: [facility] Address: [address] [address] Performed By: #### 5 7021-8 ####[facility] LABCLIA [id number] [place] [address] Differential cell count method Nom (Bld) Auto Normal [facility] Comment on above: Order Comment: Speci men Type: BLOOD SPECIMENOrdering Facility: [facility] Address: [address] [place] [address] Performed By: #### 5 7021-8 ####[facility] LABCLIA [id number] [place] [address] Eosinophils (Bld) [#/Vol] 0.42 10*3/uL Normal <0.46 [facility] Comment on above: Order Comment: Speci men Type: BLOOD SPECIMENOrdering Facility: [facility] Address: [address] [address] Performed By: #### 5 7021-8 ####[facility] LABCLIA [id number] [place] [address] Eosinophils/100 WBC (Bld) 5.9 % Normal [facility] Comment on above: Order Comment: Speci men Type: BLOOD SPECIMENOrdering Facility: [facility] Address: [address] [address] Performed By: #### 5 7021-8 ####[facility] LABCLIA [id number] [place] [address] Erythrocyte distribution width (RBC) [Ratio] 12.8 % Normal 11.5-15.0 [facility] Comment on above: Order Comment: Speci men Type: BLOOD SPECIMENOrdering Facility: [facility] Address: [address] [address] Performed By: #### 5 7021-8 ####[facility] LABCLIA [id number] [place] [address] Hematocrit (Bld) [Volume fraction] 44.0 % Normal 39.0-51.0 [facility] Comment on above: Order Comment: Speci men Type: BLOOD SPECIMENOrdering Facility: [facility] Address: [address] [place] [address] Performed By: #### 5 7021-8 ####[facility] LABCLIA [id number] [place] [address] Hemoglobin (Bld) [Mass/Vol] 14.9 g/dL Normal 13.0-17.0 [facility] Comment on above: Order Comment: Speci men Type: BLOOD SPECIMENOrdering Facility: [facility] Address: [address] [place] [address] Performed By: #### 5 7021-8 ####[facility] LABIA [id number] [place] [address] Immature granulocytes (Bld) [#/Vol] 0.03 10*3/uL Normal <0.10 [facility] Comment on above: Order Comment: Speci men Type: BLOOD SPECIMENOrdering Facility: [facility] Address: [address] [place] [address] Performed By: #### 5 7021-8 ####SUNDAY [facility] LABIA [id number] [place] [address] Immature granulocytes/100 WBC (Bld) 0.4 % Normal [facility] Comment on above: Order Comment: Speci men Type: BLOOD SPECIMENOrdering Facility: [facility] Address: [address] [place] [address] Performed By: #### 5 7021-8 ####[facility] LABIA [id number] [place] [address] Lymphocytes (Bld) [#/Vol] 1.87 10*3/uL Normal 1.00-4.00 [facility] Comment on above: Order Comment: Speci men Type: BLOOD SPECIMENOrdering Facility: [facility] Address: [address] [address] Performed By: #### 5 7021-8 ####[facility] LABCLIA [id number] [place] [address] Lymphocytes/100 WBC (Bld) 26.1 % Normal [facility] Comment on above: Order Comment: Speci men Type: BLOOD SPECIMENOrdering Facility: [facility] Address: [address] [place] [address] Performed By: #### 5 7021-8 ####[facility] LABCLIA [id number] [place] [address] MCH (RBC) [Entitic mass] 31.6 pg Normal 26.0-34.0 [facility] Comment on above: Order Comment: Speci men Type: BLOOD SPECIMENOrdering Facility: [facility] Address: [address] [place] [address] Performed By: #### 5 7021-8 ####[facility] LABIA [id number] [place] [address] MCHC (RBC) [Mass/Vol] 33.9 g/dL Normal 30.5-36.0 [facility] Comment on above: Order Comment: Speci men Type: BLOOD SPECIMENOrdering Facility: [facility] Address: [address] [place] [address] Performed By: #### 5 7021-8 ####[facility] LABCLIA [id number] [place] [address] MCV (RBC) [Entitic vol] 93.4 fL Normal 80.0-100.0 [facility] Comment on above: Order Comment: Speci men Type: BLOOD SPECIMENOrdering Facility: [facility] Address: [address] [place] [address] Performed By: #### 5 7021-8 ####[facility] LABIA [id number] [place] [address] Monocytes (Bld) [#/Vol] 0.73 10*3/uL Normal <0.87 [facility] Comment on above: Order Comment: Speci men Type: BLOOD SPECIMENOrdering Facility: [facility] Address: [address] [address] Performed By: #### 5 7021-8 ####[facility] LABCLIA [id number] [place] [address] Monocytes/100 WBC (Bld) 10.2 % Normal [facility] Comment on above: Order Comment: Speci men Type: BLOOD SPECIMENOrdering Facility: [facility] Address: [address] [address] Performed By: #### 5 7021-8 ####[facility] LABCLIA [id number] [place] [address] Neutrophils (Bld) [#/Vol] 4.09 10*3/uL Normal 1.45-7.50 [facility] Comment on above: Order Comment: Speci men Type: BLOOD SPECIMENOrdering Facility: [facility] Address: [address] [address] Performed By: #### 5 7021-8 ####[facility] LABIA [id number] [place] [address] Neutrophils/100 WBC (Bld) 57.0 % Normal [facility] Comment on above: Order Comment: Speci men Type: BLOOD SPECIMENOrdering Facility: [facility] Address: [address] [address] Performed By: #### 5 7021-8 ####[facility] LABCLIA [id number] [place] [address] Nucleated RBC (Bld) [#/Vol] 10*3/uL Normal <0.01 [facility] Comment on above: Order Comment: Speci men Type: BLOOD SPECIMENOrdering Facility: [facility] Address: [address] [address] Performed By: #### 5 7021-8 ####[facility] LABCLIA [id number] [place] [address] Nucleated RBC/100 WBC (Bld) [Ratio] 0.0 /100 WBC Normal [facility] Comment on above: Order Comment: Speci men Type: BLOOD SPECIMENOrdering Facility: [facility] Address: [address] [place] [address] Performed By: #### 5 7021-8 ####[facility] LABCLIA [id number] [place] [address] Platelet mean volume (Bld) [Entitic vol] 9.3 fL Normal 9.0-12.7 [facility] Comment on above: Order Comment: Speci men Type: BLOOD SPECIMENOrdering Facility: [facility] Address: [address] [place] [address] Performed By: #### 5 7021-8 ####[facility] LABCLIA [id number] [place] [address] Platelets (Bld) [#/Vol] 230 10*3/uL Normal 150-400 [facility] Comment on above: Order Comment: Speci men Type: BLOOD SPECIMENOrdering Facility: [facility] Address: [address] [place] [address] Performed By: #### 5 7021-8 ####[facility] LABCLIA [id number] [place] [address] RBC (Bld) [#/Vol] 4.71 10*6/uL Normal 4.20-6.00 [facility] Comment on above: Order Comment: Speci men Type: BLOOD SPECIMENOrdering Facility: [facility] Address: [address] [place] [address] Performed By: #### 5 7021-8 ####[facility] LABCLIA [id number] [place] [address] WBC (Bld) [#/Vol] 7.17 10*3/uL Normal 3.70-11.00 [facility] Comment on above: Order Comment: Speci men Type: BLOOD SPECIMENOrdering Facility: [facility] Address: [place] [address] Performed By: #### 5 7021-8 ####SUNDAY [facility] LABIA [id number] [place] [address] CNOVSPon 07-07-2022 CNOVSP Visit (SP) Office (H EMASA) JM BARROW ([id number]) 1945 M Date Time Provider Department 07/07/22 3:30 PM JOSE FRANCISCO BROUSSARD During your visit today, we recorded the following information about you: Temperature Pulse Respiration Blood pressure 97 degrees 75/minute 16/minute 110/62 Weight Height 80.4 kg 1.829 m Jose Francisco Broussard MD 07/08/2022 8:58 AM Signed PATIENT NAME: Jm Barrow DATE: 07/07/2022 PRIMARY CARE PHYSICIAN: Arline Orosco MD OTHER PHYSICIANS: Dr. Guzman, Dr. Leroy Shaw, Dr. Guzman Portions of this encounter note have been copied from my note from 06/20/2022 and has been updated where appropriate, and reflect my current medical decision making from today. CC: This is a 76 year old male with recurrent prostate cancer, seen for scheduled follow-up. INTERIM HISTORY: At the patient's initial visit here it was elected to start antiandrogen therapy with enzalutamide. Starting 06/24/2022 the patient has been on enzalutamide 160 mg daily. Shortly after starting the medication his blood pressure increased somewhat, now normalized with BP medication adjustments. He had transient joint aches which have since resolved. On follow-up today he feels well with no particular complaints. No unusual pain or other systemic symptoms. No difficulties with urination. MEDICATIONS: Current Outpatient Medications Medication Sig enzalutamide (XTANDI) 40 mg tablet Take 4 tablets (160 mg) by mouth once daily. pantoprazole DR (PROTONIX) 40 mg tablet Take 40 mg by mouth once daily. enzalutamide (XTANDI) 80 mg tablet Take 2 tablets (160 mg) by mouth once daily. fluticasone-vilanterol (BREO ELLIPTA) 100-25 mcg/dose inhaler Inhale 1 Inhalation as instructed once daily. oxybutynin XL (DITROPAN XL) 5 mg 24 hr tablet Take 5 mg by mouth twice daily. escitalopram oxalate (LEXAPRO) 20 mg tablet Take 20 mg by mouth once daily. doxazosin mesylate (CARDURA ORAL) Take 0.5 mg by mouth. hydroCHLOROthiazide (HYDRODIURIL, ESIDRIX) 25 mg tablet Take 25 mg by mouth once daily. calcium-cholecalciferol, D3, (OSCAL+D 250) 250 mg-3.125 mcg (125 unit) per tablet Take 1 tablet by mouth once daily. vitamin D3-folic acid 125 mcg (5,000 unit)-1 mg tab Take by mouth. ascorbic acid, vitamin C, (VITAMIN C) 500 mg tablet Take 500 mg by mouth once daily. MULTI-VITAMIN ORAL Take by mouth. traZODone (DESYREL) 50 mg tablet Take 50 mg by mouth daily at bedtime. tamsulosin (FLOMAX) 0.4 mg Take 0.4 mg by mouth once daily. 2 daily Vitamin E, dl, acetate, (VITAMIN E) 400 unit capsule Take 400 Units by mouth once daily. Simethicone 125 mg cap Take by mouth. aspirin, enteric coated (ASPIRIN, ENTERIC COATED) 81 mg EC tablet Take 81 mg by mouth once daily. naproxen sodium (ANAPROX) 220 mg tablet Take 220 mg by mouth twice daily with meals. Docusate Sodium 100 mg tab Take 2 tablets by mouth. Cetirizine (ZYRTEC) 10 mg cap Take by mouth. denosumab (PROLIA) 60 mg/mL Inject 60 mg subcutaneously one time only. leuprolide, 6 month, (LUPRON DEPOT, 6 MONTH,) sykt IM syringe kit Inject 45 mg intramuscularly one time only. No current facility-administered medications for this visit. ALLERGIES: ALLERGIES Allergen Reactions Chlorhexidine Rash Hibaclens [Other] Rash PAST MEDICAL HISTORY: PAST MEDICAL HISTORY Diagnosis Date BPH (benign prostatic hyperplasia) Diplopia Hypertension Prostate cancer (HCC) Pseudophakia of both eyes Strabismus Wears glasses PAST SURGICAL HISTORY: PAST SURGICAL HISTORY Procedure Laterality Date APPENDECTOMY COLONOSCOPY 11/18/2019 EYE MUSCLE SURG PROC UNLISTED Right 07/05/2021 07/05/2021 - Lorenzo Archuleta MD - Recess right superior rectus by 4 mm HERNIA REPAIR HX REMOVE CATARACT, INSERT LENS,EX Bilateral 06/2019 Dr. Alfa [place], [place] TONSILLECTOMY HX FAMILY HISTORY: FAMILY HISTORY Problem Relation Age of Onset Colon Cancer Mother GI Mother Diabetes Mother Cancer Father Pancreatic or Liver Diabetes Father SOCIAL HISTORY: Social History Tobacco Use Smoking status: Every Day Packs/day: 1.00 Years: 40.00 Pack years: 40.00 Types: Cigarettes Smokeless tobacco: Never Vaping Use Vaping Use: Never used Substance Use Topics Alcohol use: No Drug use: Never Comment: not asked COMPLETE REVIEW OF SYSTEMS: CONSTITUTION: Negative for pain, fatigue, weight loss, or appetite loss. EENT: Negative for mouth soreness, antibiotics use, epistaxis, visual problems, neck or facial swelling, fever/chills, bleeding gums, or hearing loss. CV: Negative for edema, calf swelling, palpitations, or chest pain. RESPIRATORY: Negative for cough, SOB, hemoptysis, or wheezing. GI: Negative for nausea/vomiting, heartburn, vomiting blood, dysphasia, diarrhea, blood in stool, constipation, early satiety, PICA, vegetarian, poor nutrition, abdominal (more content not included)... Normal [facility] Comprehensive metabolic 2000 panelon 07-07-2022 Albumin [Mass/Vol] 4.4 g/dL Normal 3.9-4.9 [facility] Comment on above: Order Comment: Speci men Type: BLOOD SPECIMENOrdering Facility: [facility] Address: [address] [place] [address] Performed By: #### 2 4323-8 ####[facility] LABCLIA [id number] [place] [address] ALP [Catalytic activity/Vol] 69 U/L Normal 38-113 [facility] Comment on above: Order Comment: Speci men Type: BLOOD SPECIMENOrdering Facility: [facility] Address: [address] [address] Performed By: #### 2 4323-8 ####[facility] LABCLIA [id number] [place] [address] ALT [Catalytic activity/Vol] 13 U/L Normal 10-54 [facility] Comment on above: Order Comment: Speci men Type: BLOOD SPECIMENOrdering Facility: [facility] Address: [address] [address] Performed By: #### 2 4323-8 ####[facility] LABCLIA [id number] [place] [address] Anion gap [Moles/Vol] 7 mmol/L Low 9-18 [facility] Comment on above: Order Comment: Speci men Type: BLOOD SPECIMENOrdering Facility: [facility] Address: [address] [address] Performed By: #### 2 4323-8 ####[facility] LABCLIA [id number] [place] [address] AST [Catalytic activity/Vol] 22 U/L Normal 14-40 [facility] Comment on above: Order Comment: Speci men Type: BLOOD SPECIMENOrdering Facility: [facility] Address: [address] [address] Performed By: #### 2 4323-8 ####[facility] LABCLIA [id number] [place] [address] Bilirubin [Mass/Vol] 0.6 mg/dL Normal 0.2-1.3 [facility] Comment on above: Order Comment: Speci men Type: BLOOD SPECIMENOrdering Facility: [facility] Address: [address] [place] [address] Performed By: #### 2 4323-8 ####[facility] LABCLIA [id number] [place] [address] Calcium [Mass/Vol] 10.0 mg/dL Normal 8.5-10.2 [facility] Comment on above: Order Comment: Speci men Type: BLOOD SPECIMENOrdering Facility: [facility] Address: [address] [place] [address] Performed By: #### 2 4323-8 ####[facility] LABCLIA [id number] [place] [address] Chloride [Moles/Vol] 110 mmol/L High 97-105 [facility] Comment on above: Order Comment: Speci men Type: BLOOD SPECIMENOrdering Facility: [facility] Address: [address] [place] [address] Performed By: #### 2 4323-8 ####[facility] LABCLIA [id number] [place] [address] CO2 [Moles/Vol] 29 mmol/L Normal 22-30 [facility] Comment on above: Order Comment: Speci men Type: BLOOD SPECIMENOrdering Facility: [facility] Address: [address] [place] [address] Performed By: #### 2 4323-8 ####[facility] LABCLIA [id number] [place] [address] Creatinine [Mass/Vol] 1.00 mg/dL Normal 0.73-1.22 [facility] Comment on above: Order Comment: Speci men Type: BLOOD SPECIMENOrdering Facility: [facility] Address: [address] [place] [address] Performed By: #### 2 4323-8 ####[facility] LABCLIA [id number] [place] [address] ESTIMATED GLOMERULAR FILTRATION RATE 79 mL/min/1.73m??? Normal >=60 [facility] Comment on above: Order Comment: Speci men Type: BLOOD SPECIMENOrdering Facility: [facility] Address: [address] [place] [address] Result Comment: Jessica mated Glomerular Filtration Rate (eGFR) is calculated using the 2020 CKD-EPI creatinine equation. This equation utilizes serum creatinine, sex, and age as parameters. The creatinine assay has traceable calibration to isotope dilution-mass spectrometry. Refer to KDIGO guidelines for clinical interpretation. In patients with unstable renal function, e.g. those with acute kidney injury, the eGFR may not accurately reflect actual GFR. Performed By: #### 2 4323-8 ####[facility] LABCLIA [id number] [place] [address] Glucose [Mass/Vol] 125 mg/dL High 74-99 [facility] Comment on above: Order Comment: Speci josiah Type: BLOOD SPECIMENOrdering Facility: [facility] Address: [place] [address] Result Comment: The [place] Diabetes Association (ADA) provides guidance for cutoff values for fasting glucose and random glucose. The ADA defines fasting as no caloric intake for at least 8 hours. Fasting plasma glucose results between 100 to 125 mg/dL indicate increased risk for diabetes (prediabetes). Fasting plasma glucose results greater than or equal to 126 mg/dL meet the criteria for diagnosis of diabetes. In the absence of unequivocal hyperglycemia, results should be confirmed by repeat testing. In a patient with classic symptoms of hyperglycemia or hyperglycemic crisis, random plasma glucose results greater than or equal to 200 mg/dL meet the criteria for diagnosis of diabetes. Reference: Standards of Medical Care in Diabetes 2016, [place] Diabetes Association. Diabetes Care. 2016.39(Suppl 1). Performed By: #### 2 4323-8 ####[facility] LABCLIA [id number] [place] [address] Potassium [Moles/Vol] 4.5 mmol/L Normal 3.7-5.1 [facility] Comment on above: Order Comment: Specvineet rahman Type: BLOOD SPECIMENOrdering Facility: [facility] Address: [place] [address] Performed By: #### 2 4323-8 ####[facility] LABCLIA [id number] [place] [address] Protein [Mass/Vol] 7.2 g/dL Normal 6.3-8.0 [facility] Comment on above: Order Comment: Speci men Type: BLOOD SPECIMENOrdering Facility: [facility] Address: [address] [address] Performed By: #### 2 4323-8 ####[facility] LABCLIA [id number] [place] [address] Sodium [Moles/Vol] 146 mmol/L High 136-144 [facility] Comment on above: Order Comment: Speci men Type: BLOOD SPECIMENOrdering Facility: [facility] Address: [address] [address] Performed By: #### 2 4323-8 ####[facility] LABCLIA [id number] [place] [address] Urea nitrogen [Mass/Vol] 24 mg/dL Normal 9-24 [facility] Comment on above: Order Comment: Speci men Type: BLOOD SPECIMENOrdering Facility: [facility] Address: [address] [address] Performed By: #### 2 4323-8 ####[facility] LABIA [id number] [place] [address] [facility] Prostate specific Ag [Mass/Vol] 0.20 ng/mL Normal <2.60 [facility] Comment on above: Order Comment: Speci men Type: BLOOD SPECIMENOrdering Facility: [facility] Address: [address] [place] [address] Result Comment: Tota l PSA test methodology used is the Electrochemiluminescence Immunoassay by [employer]. Total PSA values by differing methodologies cannot be interchanged. Performed By: #### 2 857-1 ####[facility] LABCLIA [id number] [place] [address] [place] Crys 07-01-2022 PRATIMA Telephone (HEMASA) PUSHPAJM ([id number]) 1945 M Date Time Provider Department 07/01/22 UMER DALE During your visit today, we recorded the following information about you: Umer Dale RN 07/01/2022 10:26 AM Signed ORAL ANTI-CANCER AGENTS FOLLOW-UP PHONE CALL/VISIT Patient identified by name and date of . YES Patient is on cycle 1, week 2, day 1 of Xtandi (enzalutamide) for Prostate Cancer. SYMPTOM ASSESSMENT Headache: Yes x 1. Resolved after taking Tylenol. Visual Changes: No Dizziness: Yes , occasional. Do you have any periods of confusion? No Mood changes: No Mouth or throat pain: No Appetite: Pt describes as decent . Taste changes: No Nausea: No Vomiting: No Heartburn: No. Weight gain/loss: No Episodes of palpitations/chest discomfort/pressure/pain No Shortness of breath: No Cough: Yes; Normal for pt. Reports that he is a smoker. Diarrhea: no Constipation: no Bladder/Urinary Changes: None Pain: No=0 (pain 0 on a scale of 0-10). Fever: No Chills: No Cold sensitivity: No Numbness/weakness: No Edema: No Skin changes: No Itching: No Yellowing of skin or eyes: No Musculoskeletal/joint changes/issues No Bleeding issues: No Activity Level (0-100%): Notes an increase in fatigue. Rates today's fatigue 6-7/10. Do you need to take naps? Yes; Do you wake up feeling rested? Yes Pt verbalizes correct dose and frequency of the above medication. Does the patient need interventions or same day appointment:No ADDITIONAL FOLLOW UP: The next outreach call is due on: Advised pt to call w/ any questions or concerns and was scheduled NA The following lab tests are due: NA Verified patient is aware of next appointment in the cancer center: Yes. Verified patient verbalized how to correctly refill the oral agent prescription. Yes Does the patient have any financial difficulties affording this medication? No Patient verbalizes understanding of when to seek Medical Attention? YES Patient verbalizes understanding of after-hours and weekend phone number? YES Patient verbalized importance of medication compliance in taking the oral agent as prescribed. Patient instructed to call if unable to comply. Umer Dale RN Allergies As of Date: 07/01/2022 Noted Allergy Reaction CHLORHEXIDINE 05/21/2013 2 - Rash hibaclens [Other] 06/02/2011 2 - Rash Date Reviewed: 06/20/2022 Reviewed by: Vidhi Rico - Fully Assessed Reason for Visit: Care Coordination [3491] Cmt: Oral Anti-Cancer Agent Follow Up Prescriptions as of 07/01/2022 - enzalutamide (XTANDI) 40 mg tablet Take 4 tablets (160 mg) by mouth once daily. - pantoprazole DR (PROTONIX) 40 mg tablet Take 40 mg by mouth once daily. - enzalutamide (XTANDI) 80 mg tablet Take 2 tablets (160 mg) by mouth once daily. - fluticasone-vilanterol (BREO ELLIPTA) 100-25 mcg/dose inhaler Inhale 1 Inhalation as instructed once daily. - oxybutynin XL (DITROPAN XL) 5 mg 24 hr tablet Take 5 mg by mouth twice daily. - escitalopram oxalate (LEXAPRO) 20 mg tablet Take 20 mg by mouth once daily. - doxazosin mesylate (CARDURA ORAL) Take 0.5 mg by mouth. - hydroCHLOROthiazide (HYDRODIURIL, ESIDRIX) 25 mg tablet Take 25 mg by mouth once daily. - calcium-cholecalciferol, D3, (OSCAL+D 250) 250 mg-3.125 mcg (125 unit) per tablet Take 1 tablet by mouth once daily. - vitamin D3-folic acid 125 mcg (5,000 unit)-1 mg tab Take by mouth. - ascorbic acid, vitamin C, (VITAMIN C) 500 mg tablet Take 500 mg by mouth once daily. - MULTI-VITAMIN ORAL Take by mouth. - traZODone (DESYREL) 50 mg tablet Take 50 mg by mouth daily at bedtime. - tamsulosin (FLOMAX) 0.4 mg Take 0.4 mg by mouth once daily. 2 daily - Vitamin E, dl, acetate, (VITAMIN E) 400 unit capsule Take 400 Units by mouth once daily. - Simethicone 125 mg cap Take by mouth. - aspirin, enteric coated (ASPIRIN, ENTERIC COATED) 81 mg EC tablet Take 81 mg by mouth once daily. - naproxen sodium (ANAPROX) 220 mg tablet Take 220 mg by mouth twice daily with meals. - Docusate Sodium 100 mg tab Take 2 tablets by mouth. - Cetirizine (ZYRTEC) 10 mg cap Take by mouth. - denosumab (PROLIA) 60 mg/mL Inject 60 mg subcutaneously one time only. - leuprolide, 6 month, (LUPRON DEPOT, 6 MONTH,) sykt IM syringe kit Inject 45 mg intramuscularly one time only. Meds Comments as of 07/06/2021: Patient claims he began eye ointment and oral meds today Problem List As Of Date 07/01/2022 Noted Resolved Gross hematuria [R31.0] 06/02/2011 Prostate cancer [C61] 06/02/2011 History of prostate cancer [Z85.46] 12/27/2013 Hypertension [I10] Pre-operative examination [Z01.818] 06/23/2021 COPD (chronic obstructive pulmonary disease) (H*12/11/2017 Mixed hyperlipidemia [E78.2] 12/12/2019 BPH (benign prostatic hyperplasia) [N40.0] 06/23/2021 Hypertropia of right (more content not included)... Normal [facility] ([id number]) 1945 M Date Time Provider Department 06/27/22 HIEN PATEL During your visit today, we recorded the following information about you: Ondina Patel [facility] 06/27/2022 10:14 AM Signed Jm has decided to move forward with the [facility], he received his 14 day free trial on 06/24/22. I was able to secure a ronda that will cover next month and we will pursue free drug following that. He will complete the application when he comes in for his 07/07/22 appt. Matthias Patel, [facility] Jose Francisco Broussard MD 06/27/2022 11:41 AM Signed Thanks. BRM Allergies As of Date: 06/27/2022 Noted Allergy Reaction CHLORHEXIDINE 05/21/2013 2 - Rash hibaclens [Other] 06/02/2011 2 - Rash Date Reviewed: 06/20/2022 Reviewed by: Vidhi Rico - Fully Assessed Reason for Visit: Medication Update [4636] Cmt: FYI patient deciding to move forward with Xtandi beyond 14 day free trial. Prescriptions as of 06/27/2022 - enzalutamide (XTANDI) 40 mg tablet Take 4 tablets (160 mg) by mouth once daily. - pantoprazole DR (PROTONIX) 40 mg tablet Take 40 mg by mouth once daily. - enzalutamide (XTANDI) 80 mg tablet Take 2 tablets (160 mg) by mouth once daily. - fluticasone-vilanterol (BREO ELLIPTA) 100-25 mcg/dose inhaler Inhale 1 Inhalation as instructed once daily. - oxybutynin XL (DITROPAN XL) 5 mg 24 hr tablet Take 5 mg by mouth twice daily. - escitalopram oxalate (LEXAPRO) 20 mg tablet Take 20 mg by mouth once daily. - doxazosin mesylate (CARDURA ORAL) Take 0.5 mg by mouth. - hydroCHLOROthiazide (HYDRODIURIL, ESIDRIX) 25 mg tablet Take 25 mg by mouth once daily. - calcium-cholecalciferol, D3, (OSCAL+D 250) 250 mg-3.125 mcg (125 unit) per tablet Take 1 tablet by mouth once daily. - vitamin D3-folic acid 125 mcg (5,000 unit)-1 mg tab Take by mouth. - ascorbic acid, vitamin C, (VITAMIN C) 500 mg tablet Take 500 mg by mouth once daily. - MULTI-VITAMIN ORAL Take by mouth. - traZODone (DESYREL) 50 mg tablet Take 50 mg by mouth daily at bedtime. - tamsulosin (FLOMAX) 0.4 mg Take 0.4 mg by mouth once daily. 2 daily - Vitamin E, dl, acetate, (VITAMIN E) 400 unit capsule Take 400 Units by mouth once daily. - Simethicone 125 mg cap Take by mouth. - aspirin, enteric coated (ASPIRIN, ENTERIC COATED) 81 mg EC tablet Take 81 mg by mouth once daily. - naproxen sodium (ANAPROX) 220 mg tablet Take 220 mg by mouth twice daily with meals. - Docusate Sodium 100 mg tab Take 2 tablets by mouth. - Cetirizine (ZYRTEC) 10 mg cap Take by mouth. - denosumab (PROLIA) 60 mg/mL Inject 60 mg subcutaneously one time only. - leuprolide, 6 month, (LUPRON DEPOT, 6 MONTH,) sykt IM syringe kit Inject 45 mg intramuscularly one time only. 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] 06/23/2021 Encounter Status:Closed by HIEN PATEL on 06/27/22 [facility] 06-22-2022 [facility] Telephone ([facility]) JM BARROW ([id number]) 1945 M Date Time Provider Department 06/22/22 HIEN PATEL During your visit today, we recorded the following information about you: Ondina Patel [facility] 06/22/2022 2:53 PM Signed Call placed to Jm to let him know that the prior authorization for his Xtandi 80 mg tablets was approved, but the cost is still over $3000.00 for the first fill and it would go down to apx $600.00 per month there after. I offered to apply for a ronda for coverage, but Jm said based on discussion with Dr Broussard that he was not certain that the addition of Xtandi would make that much of a difference with his numbers. He did not want to take a ronda away from a patient that could possibly benefit more from the medication. I offered him a 15 day free trial and he is agreeable to this and then we can go from there after seeing how he tolerates the Xtandi. I am pending a 15 day script to be sent to the providing pharmacy, if you agreeable with this plan. 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 Can be in person or over the phone. Umer Dale RN Kiera Jimenezkins [facility] 06/22/2022 3:04 PM Signed Patient does not want educatuion on drug he did this for a living he said. Jose Francisco Broussard MD 06/22/2022 3:12 PM Signed Thanks, order signed. BRM Allergies As of Date: 06/22/2022 Noted Allergy Reaction CHLORHEXIDINE 05/21/2013 2 - Rash hibaclens [Other] 06/02/2011 2 - Rash Date Reviewed: 06/20/2022 Reviewed by: Vidhi Rico - Fully Assessed Reason for Visit: Medication Update [1676] Cmt: Xtandi Order(s):Order #: [id number] Prescriptions as of 06/22/2022 - enzalutamide (XTANDI) 40 mg tablet Take 4 tablets (160 mg) by mouth once daily. - pantoprazole DR (PROTONIX) 40 mg tablet Take 40 mg by mouth once daily. - enzalutamide (XTANDI) 80 mg tablet Take 2 tablets (160 mg) by mouth once daily. - fluticasone-vilanterol (BREO ELLIPTA) 100-25 mcg/dose inhaler Inhale 1 Inhalation as instructed once daily. - oxybutynin XL (DITROPAN XL) 5 mg 24 hr tablet Take 5 mg by mouth twice daily. - escitalopram oxalate (LEXAPRO) 20 mg tablet Take 20 mg by mouth once daily. - doxazosin mesylate (CARDURA ORAL) Take 0.5 mg by mouth. - hydroCHLOROthiazide (HYDRODIURIL, ESIDRIX) 25 mg tablet Take 25 mg by mouth once daily. - calcium-cholecalciferol, D3, (OSCAL+D 250) 250 mg-3.125 mcg (125 unit) per tablet Take 1 tablet by mouth once daily. - vitamin D3-folic acid 125 mcg (5,000 unit)-1 mg tab Take by mouth. - ascorbic acid, vitamin C, (VITAMIN C) 500 mg tablet Take 500 mg by mouth once daily. - MULTI-VITAMIN ORAL Take by mouth. - traZODone (DESYREL) 50 mg tablet Take 50 mg by mouth daily at bedtime. - tamsulosin (FLOMAX) 0.4 mg Take 0.4 mg by mouth once daily. 2 daily - Vitamin E, dl, acetate, (VITAMIN E) 400 unit capsule Take 400 Units by mouth once daily. - Simethicone 125 mg cap Take by mouth. - aspirin, enteric coated (ASPIRIN, ENTERIC COATED) 81 mg EC tablet Take 81 mg by mouth once daily. - naproxen sodium (ANAPROX) 220 mg tablet Take 220 mg by mouth twice daily with meals. - Docusate Sodium 100 mg tab Take 2 tablets by mouth. - Cetirizine (ZYRTEC) 10 mg cap Take by mouth. - denosumab (PROLIA) 60 mg/mL Inject 60 mg subcutaneously one time only. - leuprolide, 6 month, (LUPRON DEPOT, 6 MONTH,) sykt IM syringe kit Inject 45 mg intramuscularly one time only. 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 Encounter Status:Closed by HIEN PATEL on 06/22/22 [facility] 06-21-2022 CNP[facility] Telephone ([facility]) JM BARROW ([id number]) 1945 M Date Time Provider Department 06/21/22 NADIRA RIOS [facility] During your visit today, we recorded the following information about you: Nadira Rios [facility] 06/21/2022 1:44 PM Signed Ambulatory Pharmacy Prior Authorization Note Provider Intervention Required?: No- Pharmacy completed on your behalf. Rx Plan: Other: [place] [facility]: Xtandi Cover My Meds Torres: [id number] Determination: Approved Prior Authorization/Case #: [id number] Prior Authorization Expiration: 06/21/2023 Time to PA Submission in CMM: 15 min Time to PA Determination in CMM: Same day Additional Information: $3,107.12 - will need to reach out to patient For questions relating to this submission, please contact [facility] at [phone] Allergies As of Date: 06/21/2022 Noted Allergy Reaction CHLORHEXIDINE 05/21/2013 2 - Rash hibaclens [Other] 06/02/2011 2 - Rash Date Reviewed: 06/20/2022 Reviewed by: Vidhi Rico - Fully Assessed Reason for Visit: Medication Authorization [6729] Cmt: Xtandi Prescriptions as of 06/23/2022 - enzalutamide (XTANDI) 40 mg tablet Take 4 tablets (160 mg) by mouth once daily. - pantoprazole DR (PROTONIX) 40 mg tablet Take 40 mg by mouth once daily. - enzalutamide (XTANDI) 80 mg tablet Take 2 tablets (160 mg) by mouth once daily. - fluticasone-vilanterol (BREO ELLIPTA) 100-25 mcg/dose inhaler Inhale 1 Inhalation as instructed once daily. - oxybutynin XL (DITROPAN XL) 5 mg 24 hr tablet Take 5 mg by mouth twice daily. - escitalopram oxalate (LEXAPRO) 20 mg tablet Take 20 mg by mouth once daily. - doxazosin mesylate (CARDURA ORAL) Take 0.5 mg by mouth. - hydroCHLOROthiazide (HYDRODIURIL, ESIDRIX) 25 mg tablet Take 25 mg by mouth once daily. - calcium-cholecalciferol, D3, (OSCAL+D 250) 250 mg-3.125 mcg (125 unit) per tablet Take 1 tablet by mouth once daily. - vitamin D3-folic acid 125 mcg (5,000 unit)-1 mg tab Take by mouth. - ascorbic acid, vitamin C, (VITAMIN C) 500 mg tablet Take 500 mg by mouth once daily. - MULTI-VITAMIN ORAL Take by mouth. - traZODone (DESYREL) 50 mg tablet Take 50 mg by mouth daily at bedtime. - tamsulosin (FLOMAX) 0.4 mg Take 0.4 mg by mouth once daily. 2 daily - Vitamin E, dl, acetate, (VITAMIN E) 400 unit capsule Take 400 Units by mouth once daily. - Simethicone 125 mg cap Take by mouth. - aspirin, enteric coated (ASPIRIN, ENTERIC COATED) 81 mg EC tablet Take 81 mg by mouth once daily. - naproxen sodium (ANAPROX) 220 mg tablet Take 220 mg by mouth twice daily with meals. - Docusate Sodium 100 mg tab Take 2 tablets by mouth. - Cetirizine (ZYRTEC) 10 mg cap Take by mouth. - denosumab (PROLIA) 60 mg/mL Inject 60 mg subcutaneously one time only. - leuprolide, 6 month, (LUPRON DEPOT, 6 MONTH,) sykt IM syringe kit Inject 45 mg intramuscularly one time only. 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 Guzman, Dr. Leroy Shaw, Dr. Gumzan HPI: This is a 76 year old male referred for evaluation and treatment of recently diagnosed recurrent prostate cancer. Fatigue LUTS beter eith Ditopan and Flomax Hip pain MEDICATIONS: Current Outpatient Medications Medication Sig fluticasone-vilanterol (BREO ELLIPTA) 100-25 mcg/dose inhaler Inhale 1 Inhalation as instructed once daily. oxybutynin XL (DITROPAN XL) 5 mg 24 hr tablet Take 5 mg by mouth twice daily. escitalopram oxalate (LEXAPRO) 20 mg tablet Take 20 mg by mouth once daily. doxazosin mesylate (CARDURA ORAL) Take 0.5 mg by mouth. hydroCHLOROthiazide (HYDRODIURIL, ESIDRIX) 25 mg tablet Take 25 mg by mouth once daily. calcium-cholecalciferol, D3, (OSCAL+D 250) 250 mg-3.125 mcg (125 unit) per tablet Take 1 tablet by mouth once daily. vitamin D3-folic acid 125 mcg (5,000 unit)-1 mg tab Take by mouth. ascorbic acid, vitamin C, (VITAMIN C) 500 mg tablet Take 500 mg by mouth once daily. MULTI-VITAMIN ORAL Take by mouth. traZODone (DESYREL) 50 mg tablet Take 50 mg by mouth daily at bedtime. tamsulosin (FLOMAX) 0.4 mg Take 0.4 mg by mouth once daily. 2 daily Vitamin E, dl, acetate, (VITAMIN E) 400 unit capsule Take 400 Units by mouth once daily. Simethicone 125 mg cap Take by mouth. aspirin, enteric coated (ASPIRIN, ENTERIC COATED) 81 mg EC tablet Take 81 mg by mouth once daily. naproxen sodium (ANAPROX) 220 mg tablet Take 220 mg by mouth twice daily with meals. Docusate Sodium 100 mg tab Take 2 tablets by mouth. Cetirizine (ZYRTEC) 10 mg cap Take by mouth. denosumab (PROLIA) 60 mg/mL Inject 60 mg subcutaneously one time only. leuprolide, 6 month, (LUPRON DEPOT, 6 MONTH,) sykt IM syringe kit Inject 45 mg intramuscularly one time only. No current facility-administered medications for this visit. ALLERGIES: ALLERGIES Allergen Reactions Chlorhexidine Rash Hibaclens [Other] Rash PAST MEDICAL HISTORY: PAST MEDICAL HISTORY Diagnosis Date BPH (benign prostatic hyperplasia) Diplopia Hypertension Prostate cancer (HCC) Pseudophakia of both eyes Strabismus Wears glasses PAST SURGICAL HISTORY: PAST SURGICAL HISTORY Procedure Laterality Date APPENDECTOMY COLONOSCOPY 11/18/2019 EYE MUSCLE SURG PROC UNLISTED Right 07/05/2021 07/05/2021 - Lorenzo Archuleta MD - Recess right superior rectus by 4 mm HERNIA REPAIR HX REMOVE CATARACT, INSERT LENS,EX Bilateral 06/2019 Dr. Grimm - [place], [place] TONSILLECTOMY HX FAMILY HISTORY: FAMILY HISTORY Problem Relation Age of Onset Colon Cancer Mother GI Mother Diabetes Mother Cancer Father Pancreatic or Liver Diabetes Father SOCIAL HISTORY: Social History Tobacco Use Smoking status: Every Day Packs/day: 1.00 Years: 40.00 Pack years: 40.00 Types: Cigarettes Smokeless tobacco: Never Vaping Use Vaping Use: Never used Substance Use Topics Alcohol use: No Drug use: Never Comment: not asked COMPLETE REVIEW OF SYSTEMS: CONSTITUTION: Negative for pain, fatigue, weight loss, or appetite loss. EENT: Negative for mouth soreness, antibiotics use, epistaxis, visual problems, neck or facial swelling, fever/chills, bleeding gums, or hearing loss. CV: Negative for edema, calf swelling, palpitations, or chest pain. RESPIRATORY: Negative for cough, SOB, hemoptysis, or wheezing. GI: Negative for nausea/vomiting, heartburn, vomiting blood, dysphasia, diarrhea, blood in stool, constipation, early satiety, PICA, vegetarian, poor nutrition, abdominal fullness, or abdominal pain. NEUROLOGICAL: Negative for numbness/tingling, dizziness, gait disturbance, headache, speech disturbance, tremor, hemiparesis/sensory loss, or change in mental status. MUSCULOSKELETAL: Negative for joint pain, joint swelling, or proximal muscle weakness. SKIN: Negative for hair loss, bruising, nail changes, rash, itching, pallor, or jaundice. ENDO/URO: Negative for hot flashes, cold or heat intolerance, urinary frequency, urinary hesitancy, menorrhagia, or hematuria. PSYCH: Negative for anxiety, depression, or other. PHYSICAL EXAM: BP 143/88 Pulse 70 Temp 36.1 ?C (97 ?F) (Temporal) Resp 16 Wt 80.9 kg (178 lb 6.4 oz) SpO2 98% BMI 24.20 kg/m? GENERAL EXAM: Well developed/well nourished; in no acute distress. SKIN: Negative for lesions, rashes, or ulcers on the upper and lower extremities and face. N (more content not included)... Normal [facility] CNOVon 06-07-2022 CNOV Office Visit (RADTSA ) JM BARROW ([id number]) 1945 M Date Time Provider Department 06/07/22 1:30 PM Ace UGZMAN During your visit today, we recorded the following information about you: Temperature Pulse Respiration Blood pressure 97.6 degrees 57/minute 18/minute 169/89 Weight 82.1 kg G Fox Guzman MD 06/10/2022 10:00 AM Signed Radiation Oncology - Follow Up Note PATIENT NAME: Jm Barrow PATIENT DIAGNOSIS: Prostate cancer, node positive, prior pelvic and prostate radiation 2000. INTERVAL HISTORY: Patient is here today after further work-up including PSMA prostate PET scan. PSMA prostate PET scan 06/02/2022: Head and neck: -No suspicious PSMA expressing neoplastic process. Chest: -No evidence of PSMA expressing neoplastic process Abdomens and Pelvis: - PSMA Avid focus in the prostatic region suspicious for neoplasm. Bones and soft tissues: - No evidence of PSMA expressing neoplastic process PSA HISTORY: PSA Date Value 06/02/2022 0.50 ng/mL 02/03/2014 0.17 ng/mL 11/12/2013 <0.06 07/15/2013 0.23 ng/mL 06/24/2013 0.23 ng/mL PSA. (no units) Date Value 03/14/2022 0.48 12/14/2020 0.20 09/15/2017 0.15 11/10/2015 1.36 PSA 0.19 01/15/2020 PSA 0.16 11/12/2019 PSA 0.14 10/23/2018 PSA 0.18 04/20/2018 PSA 0.15 09/15/2017 Latest Reference Range AND Units 06/02/22 13:12 Testosterone 193 - 824 ng/dL <12 (L) (L): Data is abnormally low ALLERGIES: ALLERGIES Allergen Reactions Chlorhexidine Rash Hibaclens [Other] Rash MEDICATIONS: fluticasone-vilanterol (BREO ELLIPTA) 100-25 mcg/dose inhaler Inhale 1 Inhalation as instructed once daily. oxybutynin XL (DITROPAN XL) 5 mg 24 hr tablet Take 5 mg by mouth twice daily. escitalopram oxalate (LEXAPRO) 20 mg tablet Take 20 mg by mouth once daily. doxazosin mesylate (CARDURA ORAL) Take 0.5 mg by mouth. hydroCHLOROthiazide (HYDRODIURIL, ESIDRIX) 25 mg tablet Take 25 mg by mouth once daily. calcium-cholecalciferol, D3, (OSCAL+D 250) 250 mg-3.125 mcg (125 unit) per tablet Take 1 tablet by mouth once daily. vitamin D3-folic acid 125 mcg (5,000 unit)-1 mg tab Take by mouth. ascorbic acid, vitamin C, (VITAMIN C) 500 mg tablet Take 500 mg by mouth once daily. MULTI-VITAMIN ORAL Take by mouth. traZODone (DESYREL) 50 mg tablet Take 50 mg by mouth daily at bedtime. tamsulosin (FLOMAX) 0.4 mg Take 0.4 mg by mouth once daily. 2 daily Vitamin E, dl, acetate, (VITAMIN E) 400 unit capsule Take 400 Units by mouth once daily. Simethicone 125 mg cap Take by mouth. aspirin, enteric coated (ASPIRIN, ENTERIC COATED) 81 mg EC tablet Take 81 mg by mouth once daily. naproxen sodium (ANAPROX) 220 mg tablet Take 220 mg by mouth twice daily with meals. Docusate Sodium 100 mg tab Take 2 tablets by mouth. Cetirizine (ZYRTEC) 10 mg cap Take by mouth. denosumab (PROLIA) 60 mg/mL Inject 60 mg subcutaneously one time only. leuprolide, 6 month, (LUPRON DEPOT, 6 MONTH,) sykt IM syringe kit Inject 45 mg intramuscularly one time only. PERTINENT REVIEW OF SYSTEMS: Hematuria: none Dysuria: none Incontinence: none Urgency:mild Catheter use: none Medications to aid urination: Yes - Total AUA Score: 11 Bowel movement frequency: 1-3/day Bowel movement quality: normal Blood per rectum: none lupron restarted 01/29 PHYSICAL EXAM: 06/07/22 1321 BP: 169/89 Pulse: (!) 57 Resp: 18 Temp: 36.4 ?C (97.6 ?F) SpO2: 99% Weight: 82.1 kg (181 lb) KPS: 100 General appearance: Alert and oriented. No acute distress. Skin: Skin color, texture, turgor normal, no suspicious rashes or lesions. ASSESSMENT/PLAN: 1. Bladder cancer. doing well without evidence of recurrence has continued follow-up with his urologist. 2 Prostate cancer [place] 8, node positive with prior treatment including pelvic radiation as well as androgen ablative therapy, radiation completed 2000. Lupron restarted January 2017 due to PSA relapse continues on ADT PSA increasing. Restaging with PSMA PET shows no evidence of metastatic disease. Abnormal area of uptake within the prostate was described. I reviewed this is fairly midline, raising the question of potential misregistration/urethral uptake. Recommend further characterization with MRI. 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 See after MRI. Signed by: Ace Guzman MD cc: Arline Orosco MD [address] [place] [phone] Portions of the above note extracted and edited from previous visit as well as active information included in the EMR. Allergies As of Date: 06/07/2022 Noted Allergy Reaction CHLORHEXIDINE 05/21/2013 2 - Rash hibaclens [Other] 06/02/2011 2 - Rash Date Reviewed: 03/22/2022 Reviewed by: Mali Mora LPN - (more content not included)... Normal [facility] NM PET/CT PROSTATE WBon 05-15 NM PET/CT PROSTATE WB * * *Final Report* * * DATE OF EXAM: Jun 02 2022 3:09PM NRN 0093 - NM PET/CT PROSTATE WB / PROCEDURE REASON: multiple diagnoses * * * * Physician Interpretation * * * * RESULT: [id number] WHOLE BODY PET/CT SCAN HISTORY: 76-year-old man prostate cancer, rising PSA COMPARISON: CT 09/11/2015 TECHNIQUE: 10.8 mCi of [id number]. The PET imaging was obtained between SKULL BASE THRU PROXIMAL THIGHS approximately 60 minutes after injection. Non-contrast spiral CT was also performed for attenuation correction. CT Dose-Length Product (DLP): 218mGy*cm CT Dose Reduction Employed: Yes RESULTS: HEAD AND NECK: Lymph nodes: No avid, PSMA expressing lymph nodes. Other: Physiologic uptake in the salivary glands, lacrimal glands, tonsillar tissues, larynx. CHEST: Lymphnodes: No suspicious avid PSMA expressing lymph nodes. Lungs and airways: No avid lung nodules. Cardiovascular structures: No lesions with abnormal tracer uptake. Pleura: No pleural effusion or lesions with abnormal tracer uptake. ABDOMEN AND PELVIS: Physiologic uptake in the liver, spleen, stomach, loops of bowel, GI tract, kidneys, urinary bladder. Hepatobiliary and pancreas: Physiologic uptake. No PSMA-avid lesions. No PSMA-avid lesions. Spleen: Physiologic uptake. No splenomegaly or PSMA-avid lesions. Adrenal Glands: No PSMA-avid lesions. Kidneys: Physiologic activity but no PSMA-avid lesions. Mesentery and retroperitoneum: No PSMA-avid lymph nodes or other lesions. GI tract: Physiologic activity but no PSMA-avid abnormalities. Pelvis: Prostate bed: Focal uptake slightly to the right of midline (max SUV 8.8). Seminal Vesicles bed: No avid focus Lymph nodes: No avid PSMA expressing lymph nodes, in the iliac, presacral, perirectal or inguinal regions. Right: * Common iliac: No PSMA-avid nodes. * External iliac: No PSMA-avid nodes. * Internal iliac: No PSMA-avid nodes. * Obturator: No PSMA-avid nodes. Left: * Common iliac: No PSMA-avid nodes. * External iliac: No PSMA-avid nodes. * Internal iliac: No PSMA-avid nodes. * Obturator: No PSMA-avid nodes. Pre-sacral: No PSMA-avid nodes. Jo Ann-rectal: No PSMA-avid nodes. Other findings: Mildly aneurysmal abdominal aorta measuring about 3.4 cm. Bladder calcifications. BONE AND OTHER FINDINGS: No PSMA-avid osseous destructive lesions. , likely related to degenerative changes. IMPRESSION: Head and neck: -No suspicious PSMA expressing neoplastic process. Chest: -No evidence of PSMA expressing neoplastic process Abdomens and Pelvis: - PSMA Avid focus in the prostatic region suspicious for neoplasm. Bones and soft tissues: - No evidence of PSMA expressing neoplastic process Transcribe Date/Time: Jun 02 2022 6:08P Dictated by: TOMY SMILEY MD This examination was interpreted and the report reviewed and electronically signed by: TOMY SMILEY MD on Jun 03 2022 8:05AM EST Thank you for allowing us to participate in the care of your patient. Should there be any questions regarding this interpretation, please call [phone]. If you are unable to reach us at the number above, please feel free to contact [facility] at [phone]. [id number] Normal [facility] PSA SerPl-ncon 06-02-2022 Prostate specific Ag [Mass/Vol] 0.50 ng/mL Normal <2.60 [facility] Comment on above: Order Comment: Speci men Type: BLOOD SPECIMENOrdering Facility: [facility] Address: [address] [place] [address] Result Comment: Tota l PSA test methodology used is the Electrochemiluminescence Immunoassay by [employer]. Total PSA values by differing methodologies cannot be interchanged. Performed By: #### 2 [id number] ####[facility] LABIA [id number] [address] [place] [facility] Testost SerPl-mCncon 023 Testosterone [Mass/Vol] ng/dL Low [id number] [facility] Comment on above: Order Comment: Speci men Type: BLOOD SPECIMENOrdering Facility: [facility] Address: [address] [place] [address] Result Comment: A te stosterone level in the 193-320 ng/dL range with associated clinical symptoms is considered low and may indicate hypogonadism (from NEJM 2010 363:123-135). Results >320 ng/dL are considered normal. Result rechecked. Performed By: #### 2 986-8 ####[facility] LABCLIA [id number] [place] [address] [place] CALCIUMon 05-17-2022 Calcium [Mass/Vol] 9.4 mg/dL Normal 8.5-10.1 [facility] Comment on above: Performed By: #### C JEMIMA, SORAIDA #### [facility] [address] [place] [address] Dr. Samantha Samuels [facility]on SARS-CoV-2 (COVID-19) RNA DELIA+probe Ql (Unsp spec) Not detected Normal NOT DETECTED [facility] Comment on above: Result Comment: This test is not yet approved or cleared by the [place] FDA. When there are no FDA-approved or cleared tests available, and other criteria are met, FDA can make tests available under an emergency access mechanism called an Emergency Use Authorization (EUA). The EUA for this test is supported by the [place] of Health and Human Service's (HHS's) declaration that circumstances exist to justify the emergency use of in vitro diagnostics for the detection and/or diagnosis of the virus that causes COVID-19. This EUA will remain in effect (meaning this test can be used) for the duration of the COVID-19 declaration justifying emergency of IVDs, unless it is terminated or revoked by FDA (after which the test may no longer be used). When diagnostic testing is negative, the possibility of a false negative should be considered in the context of a patient's recent exposures and the presence of clinical signs and symptoms consistent with SARS-CoV-2. Performed By: #### C SORAIDA ONOFRE #### [facility] [address] [place] [address] Dr. Samantha Samuels INFLUENZA A AND B AGon 05-17 INFLUANEGH SEE BELOW Normal [facility] Comment on above: Result Comment: Nega tive for Flu A protein angiten. Infection due to Flu A cannot be ruled out. Flu A angiten in the sample may be below the detection limit of the test. Performed By: #### C JEMIMA, SORAIDA #### [facility] [address] [place] [id number] [address] Samantha Samuels INFLUBNEGH SEE BELOW Normal [facility] Comment on above: Result Comment: Nega tive for Flu B protein antigen. Infection due to Flu B cannot be ruled out. Flu B antigen in the sample may be below the detection limit of the test. Performed By: #### C MP, CMADM #### [facility] [address] [place] [address] Dr. Samantha Samuels INFLUENZA A AG Negative Normal NEGATIVE SEE COMMENT [facility] Comment on above: Performed By: #### C MP, CMADM #### [facility] [address] [place] [address] Dr. Samantha Samuels INFLUENZA B AG Negative Normal NEGATIVE SEE COMMENT [facility] Comment on above: Performed By: #### C MP, CMADM #### [facility] [address] [place] [address] Dr. Samantha Samuels NM STRESS/REST MULTIon 03-24 NM STRESS/REST MULTI Patient: JM BARROW Exam Date: 03/24/2022 : 1945 Gender:M Ordering : DR ARLINE OROSCO . Admission #: [id number] Family : Order #: [id number] CLICK HERE TO VIEW EXAM RADIOLOGY REPORT PROCEDURE: RADIONUCLIDE IMAGING STRESS/REST MULTI COMPARISON: NM STRESS/REST MULTI, 08/03/2016. INDICATIONS: Chest pain TECHNIQUE: Exam Description: Stress/Rest one day protocol gated SPECT Rest Imagin.0 mCi Tc-99m Cardiolite IV on 03/24/2022 Stress Imaging 31.3 mCi Tc-99m Cardiolite IV on 03/24/2022 Exercise Protocol: Ar Heart Rate (bpm): Rest: 62 Max: 125 PMHR: 85 Blood Pressure: Rest: 166/84 Max: 212/100 Exercise Time: Minutes: 7 Seconds: 30 Stage Reached: Stage: 2 Mets 7.1 Symptoms: Rest and peak stress ECG findings were normal and the exercise portion of the study was normal per attending physician Dr. Olivera . For more details please see separate cardiac stress test report. FINDINGS: QUALITY OF STUDY: Good. PERFUSION DEFECT: LOCATION: Basal inferoseptal. Mid-anterior. Mid-inferoseptal. Apical anterior. [place]. SIZE: Large (5 or more segments). SEVERITY: Moderate. TYPE: Persistent. WALL MOTION: Normal. LV SIZE: Normal. 111 mL. TID / TCD: None; 0.9 LVEF: Normal. Calculated EF 62%. SUMMARY: Myocardial perfusion imaging study is NORMAL. CONCLUSION: 1. Moderate fixed defect anterior wall, apex and inferior wall 2. No reversible ischemia Dictated by: Skinny Villar MD on 03/24/2022 at 12:42 Approved by: Skinny Villar MD on 03/24/2022 at 13:00 Normal [facility] [address] LUNG CANCER SCREENINGon 1 05-21-2021 CT LUNG CANCER SCREENING EXAMINATION: CT LUNG CANCER SCREENING HISTORY: Tobacco dependence caused by cigarettes COMPARISON: 01/29/2020 TECHNIQUE: Axial, Coronal, and Sagittal images were created without the administration of IV contrast material. Dose reduction techniques were achieved by using automated exposure control and/or adjustment of mA and/or kV according to patient size and/or use of iterative reconstruction technique. FINDINGS: LUNGS: Mild diffuse centrilobular emphysema with an upper lobe predominance. Moderate diffuse peribronchial thickening with mild bronchiectasis. Scattered subcentimeter noncalcified solid and semisolid nodules the largest solid nodule measures 6 mm in the left upper lobe axial image 24, stable from the prior exam no new significant pulmonary nodule or mass PLEURA: No mass, effusion, or pneumothorax. VASCULATURE: No abnormality. MARISA: No mass or pathologic adenopathy. MEDIASTINUM: No mass or pathologic adenopathy. CARDIAC: No enlargement, pericardial thickening, or significant calcification. AORTA: No aortic aneurysm. Moderate atherosclerosis. CHEST WALL: No mass or axillary adenopathy BONES: No bone lesion or fracture. LIMITED ABDOMEN: Mild colonic diverticulosis. 9 mm hypodensity right hepatic lobe, nonspecific OTHER: Negative. IMPRESSION: LUNG SCREENING: Lung-RADS Category 2- Benign Appearance or Behavior. Nodules with a very low likelihood of becoming a clinically active cancer due to size or lack of growth. 2. Continue annual screening with LDCT in 12 months. Electronically authenticated by: SKINYN VILLAR Date: 2022-03-21 07:45 Normal [facility] INSULINon 03-19-2022 Insulin 5.9 uIU/mL Normal 2.6-24.9 [facility] Comment on above: Performed By: #### C MP, CMADM #### [facility] [address] [place] [address] Dr. Samantha Samuels CBC AUTO DIFFon 03-18-2022 BASO # 0.1 103/ul Normal 0.0-0.1 [facility] Comment on above: Performed By: #### C JEMIMA, SORAIDA #### [facility] [address] [place] [address] Dr. Samantha Samuels Basophils/100 WBC (Bld) 1.0 % Normal 0.2-2.0 [facility] Comment on above: Performed By: #### C JEMIMA, CMADM #### [facility] [address] [place] [address] Dr. Samantha Samuels EO # 0.7 103/ul Normal 0.0-0.7 [facility] Comment on above: Performed By: #### C JEMIMA, PHYLLISDM #### [facility] [address] [place] [address] Dr. Samantha Samuels Eosinophils/100 WBC (Bld) 9.8 % Critically high 0.9-7.0 [facility] Comment on above: Performed By: #### C JEMIMA, PHYLLISDM #### [facility] [address] [place] [address] Dr. Samantha Samuels Erythrocyte distribution width (RBC) [Ratio] 12.7 % Normal 11.0-15.0 [facility] Comment on above: Performed By: #### C SORAIDA ONOFRE #### [facility] [address] [place] [address] Dr. Samantha Samuels Hematocrit (Bld) [Volume fraction] 41.7 % Critically low 42.0-54.0 [facility] Comment on above: Performed By: #### C JEMIMA, CMADM #### [facility] [address] [place] [address] Dr. Samantha Samuels Hemoglobin (Bld) [Mass/Vol] 14.2 g/dL Normal 14.0-18.0 [facility] Comment on above: Performed By: #### C JEMIMA, CMADM #### [facility] [address] [place] [address] Dr. Samantha Samuels IG # 0.01 10e3/ul Normal 0.00-0.03 [facility] Comment on above: Performed By: #### C JEMIMA, CMADM #### [facility] [address] [address] [address] Samantha Samuels IG % 0.1 % Normal 0.0-0.5 [facility] Comment on above: Performed By: #### C JEMIMA, PHYLLISDM #### [facility] [address] [address] [address] Samantha Samuels LYMPH # 1.7 103/ul Normal 1.2-3.8 [facility] Comment on above: Performed By: #### C JEMIMA, PHYLLISDM #### [facility] [address] [address] [address] Samantha Samuels Lymphocytes/100 WBC (Bld) 24.7 % Normal 20.5-60.0 [facility] Comment on above: Performed By: #### C JEMIMA, PHYLLISDM #### [facility] [address] [place] [address] Dr. Samantha Samuels MANUAL DIFF REQ NO Normal [facility] Comment on above: Performed By: #### C JEMIMA, PHYLLISDM #### [facility] [address] [place] [address] Dr. Samantha Samuels MCH (RBC) [Entitic mass] 31.7 pg Normal 25.9-34.0 [facility] Comment on above: Performed By: #### C JEMIMA, PHYLLISDM #### [facility] [address] [address] [address] Samantha Samuels MCHC (RBC) [Mass/Vol] 34.1 g/dL Normal 29.9-35.2 [facility] Comment on above: Performed By: #### C JEMIMA, CMADM #### [facility] [address] [address] [address] Samantha Samuels MCV (RBC) [Entitic vol] 93.1 fL Normal 80.0-94.0 [facility] Comment on above: Performed By: #### C JEMIMA, CMADM #### [facility] [address] [address] [address] Samantha Samuels MONO # 0.6 103/ul Normal 0.3-0.8 [facility] Comment on above: Performed By: #### C JEMIMA, PHYLLISDM #### [facility] [address] [address] [address] Samantha Samuels Monocytes/100 WBC (Bld) 8.6 % Normal 1.7-12.0 [facility] Comment on above: Performed By: #### C MP, CMADM #### [facility] [address] [address] [address] Samantha Samuels NEUT # 3.7 103/ul Normal 1.4-6.5 [facility] Comment on above: Performed By: #### C MP, CMADM #### [facility] [address] [address] [address] Samantha Samuels Neutrophils/100 WBC (Bld) 55.8 % Normal 43.0-75.0 [facility] Comment on above: Performed By: #### C MP, CMADM #### [facility] [address] [address] [address] Samantha Samuels Platelet mean volume (Bld) [Entitic vol] 8.8 fL Critically low 9.5-13.5 [facility] Comment on above: Performed By: #### C MP, CMADM #### [facility] [address] [address] [address] Samantha Samuels PLT 228 103/ul Normal 150-450 [facility] Comment on above: Performed By: #### C MP, CMADM #### [facility] [address] [address] [address] Samantha Samuels RBC 4.48 106/ul Critically low 4.70-6.10 [facility] Comment on above: Performed By: #### C MP, CMADM #### [facility] [address] [address] [address] Samantha Samuels WBC 6.7 103/ul Normal 4.0-11.0 [facility] Comment on above: Performed By: #### C MP, CMADM #### [facility] [address] [address] [address] Samantha Samuels GLYCOHEMOGLOBIN A1Con 2021 ADA RECOMMENDATION SEE BELOW Normal [facility] Comment on above: Result Comment: ADA RECOMMENDED LIMIT 4.0 - 6.0 ADA THERAPEUTIC TARGET < 7.0 ACTION SUGGESTED > 7.0 Performed By: #### A 1C #### [facility] [address] [address] [address] Samantha Samuels Glucose [Mass/Vol] 103 mg/dL Normal [facility] Comment on above: Performed By: #### A 1C #### [facility] [address] [address] [address] Samantha Samuels HbA1c (Bld) [Mass fraction] 5.2 % Normal 4.5-6.2 [facility] Comment on above: Performed By: #### A 1C #### [facility] [address] [place] [address] Dr. Samantha Samuels LIPID PROFILEon 03-18-2022 CHOL-HDL RATIO NORM SEE BELOW Normal [facility] Comment on above: Result Comment: 3.3 - 4.4 LOW RISK 4.4 - 7.1 AVERAGE RISK 7.1 - 11.0 MODERATE RISK >11.0 HIGH RISK Performed By: #### L IPID, URIC, CMP #### [facility] [address] [place] [address] Dr. Samantha Samuels Cholesterol [Mass/Vol] 189 mg/dL Normal <=200 [facility] Comment on above: Performed By: #### L IPID, URIC, CMP #### [facility] [address] [place] [address] Dr. Samantha Samuels Cholesterol in HDL [Mass/Vol] 54 mg/dL Normal 40-60 [facility] Comment on above: Performed By: #### L IPID, URIC, CMP #### [facility] [address] [place] [address] Dr. Samantha Samuels Cholesterol in LDL [Mass/Vol] 121.2 mg/dL Normal [facility] Comment on above: Performed By: #### L IPID, URIC, CMP #### [facility] [address] [place] [address] Dr. Samantha Samuels Cholesterol.total/ Cholesterol in HDL [Mass ratio] 3.5 {ratio} Normal [facility] Comment on above: Performed By: #### L IPID, URIC, CMP #### [facility] [address] [address] [address] Samantha Samuels HDL NORMAL > or = 60 mg/dl - LO W CARDIOVASCULAR RISK <40 mg/dl - HIGH CARDIOVASCULAR RISK Normal [facility] Comment on above: Performed By: #### L IPID, URIC, CMP #### [facility] [address] [address] [address] Samantha Samuels LDL CALC NORMAL SEE BELOW Normal [facility] Comment on above: Result Comment: <100 mg/dl OPTIMAL 100 - 129 mg/dl NEAR OR ABOVE OPTIMAL 130 - 159 mg/dl BORDERLINE HIGH 160 - 189 mg/dl HIGH >190 mg/dl VERY HIGH Performed By: #### L IPID, URIC, CMP #### [facility] [address] [address] [address] Samantha Samuels Triglyceride [Mass/Vol] 69 mg/dL Normal <=150 [facility] Comment on above: Performed By: #### L IPID, URIC, CMP #### [facility] [address] [address] [address] Samantha Samuels VLDL CALC 13.8 mg/dL Normal [facility] Comment on above: Performed By: #### L IPID, URIC, CMP #### [facility] [address] [address] [address] Samantha Samuels PROF 14(COMP METB)on 022 Albumin [Mass/Vol] 3.9 g/dL Normal 3.4-5.0 [facility] Comment on above: Performed By: #### L IPID, URIC, CMP #### [facility] [address] [address] [address] Samantha Samuels Albumin/Globulin [Mass ratio] 1.0 {ratio} Normal [facility] Comment on above: Performed By: #### L IPID, URIC, CMP #### [facility] [address] [address] [address] Samantha Samuels ALP [Catalytic activity/Vol] 45 U/L Critically low 46-116 [facility] Comment on above: Performed By: #### L IPID, URIC, CMP #### [facility] [address] [address] [address] Samantha Samuels ALT [Catalytic activity/Vol] 16 U/L Normal 16-63 [facility] Comment on above: Performed By: #### L IPID, URIC, CMP #### [facility] [address] [address] [address] Samantha Samuels Anion gap [Moles/Vol] 6.2 mmol/L Normal [facility] Comment on above: Performed By: #### L IPID, URIC, CMP #### [facility] [address] [address] [address] Samantha Samuels AST [Catalytic activity/Vol] 16 U/L Normal 15-37 [facility] Comment on above: Performed By: #### L IPID, URIC, CMP #### [facility] [address] [place] [address] Dr. Samantha Samuels Bilirubin [Mass/Vol] 0.5 mg/dL Normal 0.2-1.0 [facility] Comment on above: Performed By: #### L IPID, URIC, CMP #### [facility] [address] [address] [address] Samantha Samuels Calcium [Mass/Vol] 9.4 mg/dL Normal 8.5-10.1 [facility] Comment on above: Performed By: #### L IPID, URIC, CMP #### [facility] [address] [address] [address] Samantha Samuels Chloride [Moles/Vol] 106 mmol/L Normal 98-107 [facility] Comment on above: Performed By: #### L IPID, URIC, CMP #### [facility] [address] [address] [address] Samantha Samuels CO2 [Moles/Vol] 32.2 mmol/L Critically high 21.0-32.0 [facility] Comment on above: Performed By: #### L IPID, URIC, CMP #### [facility] [address] [address] [address] Samantha Samuels Creatinine [Mass/Vol] 0.82 mg/dL Normal 0.70-1.30 [facility] Comment on above: Performed By: #### L IPID, URIC, CMP #### [facility] [address] [address] [address] Samantha Samuels EGFR-AF BENINESE >60 Normal >=60 [facility] Comment on above: Result Comment: Prev iously reported as: (blank) On 03/18/2022 10:54 By KD3 Performed By: #### L IPID, URIC, CMP #### [facility] [address] [place] [address] Dr. Samantha Samuels EGFR-NON AF BENINESE >60 Normal >=60 [facility] Comment on above: Result Comment: Prev iously reported as: (blank) On 03/18/2022 10:54 By KD3 Performed By: #### L IPID, URIC, CMP #### [facility] [address] [place] [address] Dr. Samantha Samuels Globulin (S) [Mass/Vol] 3.8 g/dL Normal [facility] Comment on above: Performed By: #### L IPID, URIC, CMP #### [facility] [address] [address] [address] Samantha Samuels Glucose [Mass/Vol] 101 mg/dL Normal 74-106 [facility] Comment on above: Performed By: #### L IPID, URIC, CMP #### [facility] [address] [address] [address] Samantha Samuels Potassium [Moles/Vol] 4.4 mmol/L Normal 3.5-5.1 [facility] Comment on above: Performed By: #### L IPID, URIC, CMP #### [facility] [address] [address] [address] Samantha Samuels Protein [Mass/Vol] 7.7 g/dL Normal 6.4-8.2 [facility] Comment on above: Performed By: #### L IPID, URIC, CMP #### [facility] [address] [address] [address] Samantha Samuels Sodium [Moles/Vol] 140 mmol/L Normal 136-145 [facility] Comment on above: Performed By: #### L IPID, URIC, CMP #### [facility] [address] [place] [address] Dr. Samantha Samuels Urea nitrogen [Mass/Vol] 17.0 mg/dL Normal 7.0-18.0 [facility] Comment on above: Performed By: #### L IPID, URIC, CMP #### [facility] [address] [place] [address] Dr. Samantha Samuels Urea nitrogen/Creatinin e [Mass ratio] 20.7 mg/mg Normal [facility] Comment on above: Performed By: #### L IPID, URIC, CMP #### [facility] [address] [place] [address] Dr. Samantha Samuels URIC ACID SERUMon 03-18-2022 Urate [Mass/Vol] 4.5 mg/dL Normal 3.5-7.2 [facility] Comment on above: Performed By: #### L IPID, URIC, CMP #### [facility] [address] [place] [address] Dr. Samantha Samuels VITAMIN D 25 OHon 03-18-2022 VIT D 25-OH 73.5 ng/mL Normal [facility] Comment on above: Performed By: #### C SORAIDA ONOFRE #### [facility] [address] [place] [address] Dr. Samantha Samuels VIT D RANGES SEE BELOW Normal [facility] Comment on above: Result Comment: <20 ng/mL Vit D deficient 20 - <30 ng/mL Vit D insufficient 30 - 100 ng/mL Vit D sufficient >100 ng/mL Potential Toxicity Performed By: #### C SORAIDA ONOFRE #### [facility] [address] [place] [address] Dr. Samantha Samuels CALCIUMon 11-18-2021 Calcium [Mass/Vol] 10.3 mg/dL Critically high 8.5-10.1 [facility] Comment on above: Performed By: #### C A #### [facility] [address] [place] [address] Dr. Samantha Samuels Covid-19 PCR ([facility])on SARS-CoV-2 (COVID-19) RNA DELIA+probe Ql (Unsp spec) Not detected Normal NOT DETECTED [facility] Comment on above: Result Comment: This test is not yet approved or cleared by the [place] FDA. When there are no FDA-approved or cleared tests available, and other criteria are met, FDA can make tests available under an emergency access mechanism called an Emergency Use Authorization (EUA). The EUA for this test is supported by the [place] of Health and Human Service's (HHS's) declaration that circumstances exist to justify the emergency use of in vitro diagnostics for the detection and/or diagnosis of the virus that causes COVID-19. This EUA will remain in effect (meaning this test can be used) for the duration of the COVID-19 declaration justifying emergency of IVDs, unless it is terminated or revoked by FDA (after which the test may no longer be used). When diagnostic testing is negative, the possibility of a false negative should be considered in the context of a patient's recent exposures and the presence of clinical signs and symptoms consistent with SARS-CoV-2. Performed By: #### C VDTB #### [facility] [address] [place] [address] Dr. Samantha Samuels SYMPTOMATIC COVID-19 ANTIGEN on 11-17-2021 EUA Statement SEE BELOW Normal [facility] Comment on above: Result Comment: This test has not been FDA cleared or approved, but has been authorized by the FDA under an Emergency Use Authorization (EUA) for use by authorized laboratories certified under CLIA that meet the requirements to perform moderate or high complexity testing. This test has been authorized only for the detection of proteins from SARS-CoV-2, not for any other viruses or pathogens. The emergency use of this test is authorized for the duration of the declaration that circumstances exist justifying the authorization of emergency use of in vitro diagnostic tests for detection and/or diagnosis of Covid-19 under section 564(b)(1) of the Act, 21 U.S.C. 360bbb-3(b)(1), unless the declaration is terminated or authorization is revoked sooner. Performed By: #### C VDAGS #### [facility] [address] [place] [address] Dr. Samantha Samuels SARS-CoV-2 (COVID-19) RNA DELIA+probe Ql (Unsp spec) Negative Normal NEGATIVE [facility] Comment on above: Performed By: #### C VDAGS #### [facility] [address] [address] [address] Samantha Samuels Covid-19 PCR ([facility])on 08-14 SARS-CoV-2 (COVID-19) RNA DELIA+probe Ql (Unsp spec) Not detected Normal NOT DETECTED [facility] Comment on above: Result Comment: This test is not yet approved or cleared by the [place] FDA. When there are no FDA-approved or cleared tests available, and other criteria are met, FDA can make tests available under an emergency access mechanism called an Emergency Use Authorization (EUA). The EUA for this test is supported by the [place] of Health and Human Service's (HHS's) declaration that circumstances exist to justify the emergency use of in vitro diagnostics for the detection and/or diagnosis of the virus that causes COVID-19. This EUA will remain in effect (meaning this test can be used) for the duration of the COVID-19 declaration justifying emergency of IVDs, unless it is terminated or revoked by FDA (after which the test may no longer be used). When diagnostic testing is negative, the possibility of a false negative should be considered in the context of a patient's recent exposures and the presence of clinical signs and symptoms consistent with SARS-CoV-2. Performed By: #### C JEMIMA, CMADM #### [facility] [address] [place] [address] Dr. Samantha Samuels INFLUENZA A AND B AGon 09-07 INFLUANEGH SEE BELOW Normal [facility] Comment on above: Result Comment: Nega tive for Flu A protein angiten. Infection due to Flu A cannot be ruled out. Flu A angiten in the sample may be below the detection limit of the test. Performed By: #### C JEMIMA, CMADM #### [facility] [address] [place] [address] Dr. Samantha Samuels INFLUBNEG SEE BELOW Normal [facility] Comment on above: Result Comment: Nega tive for Flu B protein antigen. Infection due to Flu B cannot be ruled out. Flu B antigen in the sample may be below the detection limit of the test. Performed By: #### C MP, CMADM #### [facility] [address] [id number] Dr. Samantha Samuels INFLUENZA A AG Negative Normal NEGATIVE SEE COMMENT [facility] Comment on above: Performed By: #### C MP, CMADM #### [facility] [address] [address] [address] Samantha Samuels INFLUENZA B AG Negative Normal NEGATIVE SEE COMMENT [facility] Comment on above: Performed By: #### C MP, CMADM #### [facility] [address] [address] [address] Samantha Samuels INTERNAL CONTROLS Within Normal Limits Normal Wi thin Normal Limits [facility] Comment on above: Performed By: #### C MP, CMADM #### [facility] [address] [address] [address] Samantha Samuels Vital Signs Date Time Vital Sign Value Performing Clinician Facility 02-23-2023 13:23-0400 Body temperature 97.39 [degF] CALVIN Guzman MD Work Phone: [facility] 02-23-2023 13:23-0400 Body weight 83.46 kg CALVIN Guzman MD Work Phone: [facility] 02-23-2023 13:23-0400 Diastolic blood pressure 68 mm[Hg] CALVIN Guzman MD Work Phone: [facility] 02-23-2023 13:23-0400 Heart rate 64 /min CALVIN Guzman MD Work Phone: [facility] 02-23-2023 13:23-0400 Respiratory rate 16 /min CALVIN Guzman MD Work Phone: [facility] 02-23-2023 13:23-0400 SaO2% (BldA) [Mass fraction] 95 % CALVIN Guzman MD Work Phone: [facility] 02-23-2023 13:23-0400 Systolic blood pressure 109 mm[Hg] CALVIN Guzman MD Work Phone: [facility] 12-07-2022 14:01-0400 Body height 182.9 cm Manny Meza MD Work Phone: [facility] 12-07-2022 14:01-0400 Body weight 79.83 kg Manny Meza MD Work Phone: [facility] 12-07-2022 14:01-0400 Diastolic blood pressure 63 mm[Hg] Manny Meza MD Work Phone: [facility] 12-07-2022 14:01-0400 Heart rate 76 /min Manny Meza MD Work Phone: [facility] 12-07-2022 14:01-0400 Systolic blood pressure 108 mm[Hg] Manny Meza MD Work Phone: [facility] 11-24-2022 13:39-0400 Diastolic blood pressure 70 mm[Hg] CALVIN Guzman MD Work Phone: [facility] 11-24-2022 13:39-0400 Heart rate 63 /min CALVIN Guzman MD Work Phone: [facility] 11-24-2022 13:39-0400 Systolic blood pressure 111 mm[Hg] CALVIN Guzman MD Work Phone: [facility] 11-24-2022 13:38-0400 Body temperature 97 [degF] CALVIN Guzman MD Work Phone: [facility] 11-24-2022 13:38-0400 Body weight 80.2 kg CALVIN Guzman MD Work Phone: [facility] 11-24-2022 13:38-0400 Respiratory rate 18 /min CALVIN Guzman MD Work Phone: [facility] 11-24-2022 13:38-0400 SaO2% (BldA) [Mass fraction] 97 % CALVIN Guzman MD Work Phone: [facility] 10-18-2022 10:13-0400 Diastolic blood pressure 50 mm[Hg] Arline M Hoy Work Phone: Located within [facility] 600 DO Work Phone: 10-18-2022 10:13-0400 Diastolic blood pressure 48 mm[Hg] Arline M Hoy Work Phone: Located within [facility] 600 DO Work Phone: 10-18-2022 10:13-0400 Systolic blood pressure 82 mm[Hg] Arline M Hoy Work Phone: Located within [facility] 600 DO Work Phone: 10-18-2022 10:13-0400 Systolic blood pressure 72 mm[Hg] Arline M Hoy Work Phone: Located within [facility] 600 DO Work Phone: 10-18-2022 [id number] 58 1 Arline M Hoy Work Phone: Located within [facility] 600 DO Work Phone: Comment on above: [employer] 10-18-2022 [id number] 56 1 Arline M Hoy Work Phone: Located within [facility] 600 DO Work Phone: Comment on above: [facility] 10-18-2022 09:54-0400 Body height 182.88 cm Arline M Hoy Work Phone: Located within [facility] 600 DO Work Phone: 10-18-2022 09:54-0400 Body mass index (BMI) [Ratio] 24.82 kg/m2 Arline M Hoy Work Phone: Located within [facility] 600 DO Work Phone: 10-18-2022 09:54-0400 Body surface area Derived from formula 2.05 m2 Arline M Hoy Work Phone: Located within [facility] 600 DO Work Phone: 10-18-2022 09:54-0400 Body weight 83.01 kg Arline Nj Hoy Work Phone: Located within [facility] 600 DO Work Phone: 10-18-2022 09:54-0400 Diastolic blood pressure 60 mm[Hg] Arline Nj Hoy Work Phone: Located within [facility] 600 DO Work Phone: 10-18-2022 09:54-0400 Heart rate 58 /min Arline Celm Hoy Work Phone: Located within [facility] 600 DO Work Phone: 10-18-2022 09:54-0400 Systolic blood pressure 90 mm[Hg] Arline Clem Hoy Work Phone: [facility] [place] 600 DO Work Phone: 09-22-2022 12:52-0400 Body height 182.9 cm Jose Francisco Broussard MD Work Phone: [facility] 09-22-2022 12:52-0400 Body temperature 97.39 [degF] Jose Francisco Broussard MD Work Phone: [facility] 09-22-2022 12:52-0400 Body weight 79.02 kg Jose Francisco Broussard MD Work Phone: [facility] 09-22-2022 12:52-0400 Diastolic blood pressure 49 mm[Hg] Jose Francisco Broussard MD Work Phone: [facility] 09-22-2022 12:52-0400 Heart rate 79 /min Jose Francisco Broussard MD Work Phone: [facility] 09-22-2022 12:52-0400 Respiratory rate 16 /min Jose Francisco Broussard MD Work Phone: [facility] 09-22-2022 12:52-0400 SaO2% (BldA) [Mass fraction] 94 % Jose Francisco Broussard MD Work Phone: [facility] 09-22-2022 12:52-0400 Systolic blood pressure 92 mm[Hg] Jose Francisco Broussard MD Work Phone: [facility] 09-01-2022 12:55-0400 Body height 182.88 cm Arline M Hoy Work Phone: Located within [facility] 250 DO Work Phone: 09-01-2022 12:55-0400 Body mass index (BMI) [Ratio] 24.82 kg/m2 Arline M Hoy Work Phone: Located within [facility] 250 DO Work Phone: 09-01-2022 12:55-0400 Body surface area Derived from formula 2.05 m2 Arline M Hoy Work Phone: Located within [facility] 250 DO Work Phone: 09-01-2022 12:55-0400 Body weight 83.01 kg Arline M Hoy Work Phone: Located within [facility] 250 DO Work Phone: 09-01-2022 12:55-0400 Diastolic blood pressure 62 mm[Hg] Arline M Hoy Work Phone: Located within [facility] 250 DO Work Phone: 09-01-2022 12:55-0400 Heart rate 42 /min Arline M Hoy Work Phone: Located within [facility] 250 DO Work Phone: 09-01-2022 12:55-0400 Systolic blood pressure 108 mm[Hg] Arline M Hoy Work Phone: Located within [facility] 250 DO Work Phone: 06-20-2022 16:04-0500 Body temperature 97 [degF] Jose Francisco Broussard MD Work Phone: [facility] 06-20-2022 16:04-0500 Body weight 80.92 kg Jose Francisco Broussard MD Work Phone: [facility] 06-20-2022 16:04-0500 Diastolic blood pressure 88 mm[Hg] Jose Francisco Broussard MD Work Phone: [facility] 06-20-2022 16:04-0500 Heart rate 70 /min Jose Francisco Broussard MD Work Phone: [facility] 06-20-2022 16:04-0500 Respiratory rate 16 /min Jose Francisco Broussard MD Work Phone: [facility] 06-20-2022 16:04-0500 SaO2% (BldA) [Mass fraction] 98 % Jose Francisco Broussard MD Work Phone: [facility] 06-20-2022 16:04-0500 Systolic blood pressure 143 mm[Hg] Jose Francisco Broussard MD Work Phone: [facility] 06-07-2022 13:21-0500 Body temperature 97.59 [degF] CALVIN Guzman MD Work Phone: [facility] 06-07-2022 13:21-0500 Body weight 82.1 kg CALVIN Guzman MD Work Phone: [facility] 06-07-2022 13:21-0500 Diastolic blood pressure 89 mm[Hg] CALVIN Guzman MD Work Phone: [facility] 06-07-2022 13:21-0500 Heart rate 57 /min CALVIN Guzman MD Work Phone: [facility] 06-07-2022 13:21-0500 Respiratory rate 18 /min CALVIN Guzman MD Work Phone: [facility] 06-07-2022 13:21-0500 SaO2% (BldA) [Mass fraction] 99 % CALVIN Guzman MD Work Phone: [facility] 06-07-2022 13:21-0500 Systolic blood pressure 169 mm[Hg] CALVIN Guzman MD Work Phone: [facility] 03-22-2022 13:09-0500 Body temperature 97.39 [degF] CALVIN Guzman MD Work Phone: [facility] 03-22-2022 13:09-0500 Body weight 81.65 kg CALVIN Guzman MD Work Phone: [facility] 03-22-2022 13:09-0500 Diastolic blood pressure 64 mm[Hg] CALVIN Guzman MD Work Phone: [facility] 03-22-2022 13:09-0500 Heart rate 56 /min CALVIN Guzman MD Work Phone: [facility] 03-22-2022 13:09-0500 Respiratory rate 18 /min CALVIN Guzman MD Work Phone: [facility] 03-22-2022 13:09-0500 SaO2% (BldA) [Mass fraction] 97 % CALVIN Guzman MD Work Phone: [facility] 03-22-2022 13:09-0500 Systolic blood pressure 125 mm[Hg] CALVIN Guzman MD Work Phone: [facility] Encounters Encounter Date Encounter Type Care Provider Facility Start: 05-12-2023 End: 05-12-2023 ambulatory JAMES ROBB Facility:[facility] Start: 04-10-2023 End: 04-10-2023 ambulatory JOSE FRANCISCO BROUSSARD Facility:[facility] Start: 04-10-2023 Telephone encounter Ace Guzman MD Work Phone: [facility] Comment on above: Nm Pet Request Start: 04-03-2023 End: 04-03-2023 ambulatory JOSE FRANCISCO BROUSSARD Facility:[facility] Start: 03-27-2023 End: 03-27-2023 ambulatory Skin Biopsy Work Phone: Neurology Start: 03-27-2023 End: 03-27-2023 Patient encounter procedure Skin Biopsy Work Phone: [facility] Start: 03-27-2023 End: 03-27-2023 ambulatory ARLINE OROSCO Neurology Start: 03-27-2023 End: 03-27-2023 Patient encounter procedure Autonomic 1 Neur Main Work Phone: [facility] Start: 02-23-2023 End: 02-24-2023 ambulatory Ace FOX GUZMAN Facility:[facility] Start: 02-23-2023 End: 02-24-2023 Patient encounter procedure Ace Guzman MD Work Phone: Radiation Oncology Comment on above: History of prostate cancer (Primary Dx); Prostate cancer (HCC) Start: 02-21-2023 End: 02-21-2023 ambulatory Ace GUZMAN Facility:[facility] Start: 02-15-2023 End: 02-16-2023 ambulatory BARB KIRAN Facility:[facility] Start: 01-04-2023 End: 01-05-2023 ambulatory ARLINE OROSCO Facility:[facility] Start: 12-28-2022 Telephone encounter Umer gentile RN Work Phone: Hematology/Oncology Comment on above: Care Coordination (R adiation Appointment) Start: 12-26-2022 End: 12-27-2022 ambulatory ARLINE OROSCO Facility:[facility] Start: 12-26-2022 End: 12-27-2022 ambulatory [facility] [facility] Work Phone: Hematology/Oncology Comment on above: Osteopenia of multip le sites (Primary Dx); Prostate cancer (HCC) Start: 12-19-2022 End: 12-19-2022 ambulatory ARLINE OROSCO Facility:[facility] Start: 12-07-2022 End: 12-07-2022 Patient encounter procedure Manny Meza MD Work Phone: Urology Comment on above: Malignant neoplasm o f prostate (HCC) Start: 12-07-2022 End: 12-08-2022 ambulatory Manny Meza MD Work Phone: Urology Start: 11-24-2022 End: 11-24-2022 ambulatory Ace GUZMAN Facility:[facility] Start: 11-24-2022 End: 11-24-2022 Patient encounter procedure Ace Guzman MD Work Phone: Radiation Oncology Comment on above: Malignant neoplasm o f prostate (HCC) (Primary Dx) Start: 11-17-2022 End: 11-17-2022 ambulatory Ace GUZMAN Facility:[facility] Start: 10-18-2022 Office outpatient vi sit 25 minutes Arline Orosco Work Phone: [facility] 600 DO Work Phone: Start: 10-18-2022 ambulatory Baldo Gifford Facilit y: Start: 10-11-2022 AUDIT Arline Orosco Work Phone: [facility] 250 DO Work Phone: Start: 09-22-2022 End: 09-22-2022 ambulatory JOSE FRANCISCO BROUSSARD Facility:[facility] Start: 09-22-2022 End: 09-22-2022 ambulatory Jose Francisco Broussard MD Work Phone: Hematology/Oncology Comment on above: Prostate cancer (HCC ) (Primary Dx); Osteopenia of multiple sites; Primary hypertension Start: 09-22-2022 End: 09-22-2022 Patient encounter procedure Jose Francisco Broussard MD Work Phone: [facility] Start: 09-20-2022 End: 09-20-2022 ambulatory ARLINE OROSCO Facility:[facility] Start: 09-19-2022 Chart Update Arline Orosco Work Phone: Located within [facility] 250 DO Work Phone: Start: 09-13-2022 End: 09-13-2022 ambulatory Baldo Gifford Facility:[facility] Start: 09-02-2022 End: 09-02-2022 ambulatory Arline Orosco Facility:[facility] Start: 09-02-2022 End: 09-02-2022 ambulatory MD Arline Orosco Work Phone: [facility] Work Phone: Start: 09-02-2022 End: 09-02-2022 Patient encounter procedure MD Arline Orosco Work Phone: [facility] [place] Work Phone: Start: 09-01-2022 Office consultation new/estab patient 80 min Arline Orosco Work Phone: -[facility] 250 DO Work Phone: Start: 09-01-2022 ambulatory Baldo Gifford Facilit y: Start: 08-18-2022 End: 08-18-2022 ambulatory ARLINE OROSCO Facility:[facility] Start: 08-15-2022 ambulatory ARLINE OROSCO Facility: [facility] Start: 08-15-2022 End: 08-15-2022 Subsequent hospital visit by physician [address] [place] [id number] (I-Stat/3t) Work Phone: Radiology Comment on above: Cancer of prostate w /med recur risk (T2b-c or [place] 7 or PSA 10-20) (HCC) [C61] Start: 08-02-2022 End: 08-02-[address] ARLINE OROSCO . Facility:[facility] Start: 07-31-2022 End: 08-01-2022 ambulatory RYLEE LOPEZ Facility:[facility] Start: 07-25-2022 Telephone encounter Kiera Angelo RN Work Phone: Hematology/Oncology Comment on above: Care Coordination (M edication update) Start: 07-21-2022 End: 07-22-2022 ambulatory RYLEE LOPEZ Facility:[facility] Start: 07-18-2022 End: 07-18-2022 ambulatory ARLINE OROSCO Facility:[facility] Start: 07-18-2022 End: 07-18-2022 Patient encounter procedure Lola Allen OD Work Phone: Ophthalmology Comment on above: Hypertropia of right eye (Primary Dx); Pseudophakia of both eyes; Myopia with astigmatism and presbyopia, bilateral; PVD (posterior vitreous detachment), both eyes; Dry eye syndrome, bilateral Start: 07-13-2022 Telephone encounter Darlene Young [facility] Comment on above: Medication Problem Start: 07-07-2022 End: 07-08-2022 ambulatory JOSE FRANCISCO BROUSSARD Facility:[facility] Start: 07-07-2022 End: 07-07-2022 ambulatory Lab/[place] Work Phone: Hematology/Oncology Comment on above: Prostate cancer (HCC ) (Primary Dx) Start: 06-27-2022 Telephone encounter Hien Beny Riley [facility] Work Phone: Hematology/Oncology Comment on above: Medication Update (F HUNGARIAN patient deciding to move forward with Xtandi beyond 14 day free trial.) Start: 06-22-2022 Telephone encounter Hien Beny Perezmario [facility] Work Phone: [facility] Comment on above: Medication Update (X tandi) Start: 06-21-2022 Telephone encounter Nadira chapa [facility] Work Phone: [facility] Comment on above: Medication Authoriza tion (Xtandi) Start: 06-20-2022 End: 06-20-2022 ambulatory Jose Francisco Broussard MD Work Phone: Hematology/Oncology Comment on above: Prostate cancer (HCC ) (Primary Dx) Start: 06-20-2022 End: 06-20-2022 Patient encounter procedure Jose Francisco Broussard MD Work Phone: [facility] Start: 06-16-2022 Chart abstracting Jose Francisco lynne MD Work Phone: Hematology/Oncology Start: 06-07-2022 End: 06-07-2022 ambulatory Ace GUZMAN Facility:[facility] Start: 06-07-2022 End: 06-07-2022 Patient encounter procedure Ace Guzman MD Work Phone: Radiation Oncology Comment on above: Cancer of prostate w /med recur risk (T2b-c or [place] 7 or PSA 10-20) (HCC) (Primary Dx) Start: 06-02-2022 End: 06-02-2022 ambulatory Ace GUZMAN Facility:[facility] Start: 05-17-2022 End: 05-18-[address] ARLINE OROSCO . Facility:[facility] Start: 04-19-2022 Telephone encounter Ace Guzman MD Work Phone: [facility] Comment on above: Nm Pet Request Start: 03-24-2022 End: 03-25-[address] ARLINE OROSCO . Facility:[facility] Start: 03-22-2022 End: 03-22-2022 Patient encounter procedure Ace Guzman MD Work Phone: Radiation Oncology Comment on above: History of prostate cancer (Primary Dx); Cancer of prostate w/med recur risk (T2b-c or [place] 7 or PSA 10-20) ([facility]) Start: 03-18-2022 End: 03-19-[address] ARLINE OROSCO . Facility:[facility] Start: 03-14-2022 End: 03-15-[address] ARLINE OROSCO . Facility:[facility] Start: 11-18-2021 End: 11-19-2021 ambulatory LEROY SHAW Facility:[facility] Start: 11-17-2021 End: 11-17-[address] ARLINE OROSCO . Facility:[facility] Start: 09-07-2021 End: 09-07-[address] ARLINE OROSCO . Facility:[facility] Start: 08-23-2021 End: 08-23-2021 Patient encounter procedure Lola Faulkner Tiffany OD Work Phone: Ophthalmology Comment on above: Hypertropia of right eye (Primary Dx); Diplopia; Pseudophakia of both eyes; Monocular diplopia of right eye Start: 06-23-2021 Preprocedural examination done Lola Allen OD Work Phone: [facility] Work Phone: Start: 02-28-2017 End: 03-01-2017 Ambulatory DEFAULT PHYSICIAN Facility:[facility] Procedures Date Procedure Procedure Detail Performing Clinician Start: 12-07-2022 Urnls dip stick/tabl et reagent auto microscopy Bulk Order Provider Start: 08-15-2022 Mri pelvis w/o & w/contrast material Ace Guzman MD Work Phone: Start: 03-14-2022 PSA screening LEROY CORRIGAN Comment on above: Performed By: #### C MP, CMADM #### [facility] [address] [place] [address] Dr. Samantha Samuels Start: 11-18-2021 PSA screening LEROY CORRIGAN Comment on above: Performed By: #### C MP, CMADM #### [facility] [address] [place] [address] Dr. Samantha Samuels Start: 03-15-2021 Adult depression screening assessment Lolayuri Allen OD Work Phone: Start: 11-18-2019 Colonoscopy Lola Tamia goodman OD Work Phone: Start: 08-27-2018 Lipid 1996 panel - S beverly or Plasma NA Megan GUTIERREZ Work Phone: Appendectomy Arline Orosco Work Phone: Hernia repair Arline Orosco Work Phone: Procedure on prostate Alejandro Orosco Work Phone: Scrotum and testicle operation Arline M Kwesi Work Phone: Total colonoscopy Arline Orosco Work Phone: Plan of Treatment Date Care Activity Detail Author Start: 02-15-2026 Diabetes Screening Diabetes Screenin g [facility] Start: 02-06-2026 Urine microalbumin profile [facility] Start: 09-20-2025 DIABETES SCREEN DIABETES SCREEN [facility] Start: 07-07-2025 DIABETES SCREEN DIABETES SCREEN [facility] Start: 06-23-2024 DIABETES SCREEN DIABETES SCREEN [facility] Start: 04-10-2024 BP Controlled (<130/80) BP Controlle d (<130/80) [facility] Start: 02-24-2024 BP Controlled (<130/80) BP Controlle d (<130/80) [facility] Start: 12-27-2023 BP CONTROLLED (<130/80) BP CONTROLLE D (<130/80) [facility] Start: 12-08-2023 BP CONTROLLED (<130/80) BP CONTROLLE D (<130/80) [facility] Start: 11-25-2023 BP CONTROLLED (<130/80) BP CONTROLLE D (<130/80) [facility] Start: 09-23-2023 BP CONTROLLED (<130/80) BP CONTROLLE D (<130/80) [facility] Start: 08-28-2023 Lipid 1996 panel - S beverly or Plasma Lipid Screening [facility] Start: 08-28-2023 LIPID SCREEN LIPID SCREEN [facility] Start: 07-07-2023 BP CONTROLLED (<130/80) BP CONTROLLE D (<130/80) [facility] Start: 05-26-2023 End: 03-24-2024 NM PET/CT PROSTATE WHOLE BODY IMAGING NM PET/CT PROSTATE WHOLE BODY IMAGING Radiology Routine Prostate cancer (HCC) Expected: 05/26/2023, Expires: 03/24/2024 [facility] Work Phone: Comment on above: Expected: 05/26/2023 , Expires: 03/24/2024 Start: 03-22-2023 BP CONTROLLED (<130/80) BP CONTROLLE D (<130/80) [facility] Start: 03-22-2023 End: 05-22-2023 Prostate specific Ag [Mass/volume] in Serum or Plasma PSA/PROSTSPECAG DIAG Lab Routine History of prostate cancer Expected: 03/22/2023, Expires: 05/22/2023 [facility] Work Phone: Comment on above: Expected: 03/22/2023 , Expires: 05/22/2023 Start: 02-08-2023 FUV, Provider: Baldo Gifford, Status: Pen, Time: 9:30 AM FUV, Provider: Baldo Gifford, Status: Terry, Time: 9:30 AM -[facility] DO Work Phone: Start: 01-13-2023 Influenza vaccination C [facility] Start: 12-28-2022 End: 02-27-2023 CBC W Auto Differential panel - Blood CBC + DIFF Lab Routine Osteopenia of multiple sites Prostate cancer (HCC) Expected: 12/28/2022 (Approximate), Expires: 02/27/2023 [facility] Work Phone: Comment on above: Expected: 12/28/2022 (Approximate), Expires: 02/27/2023 Start: 12-28-2022 End: 02-27-2023 Comprehensive metabolic 2000 panel - Serum or Plasma COMP METABOLIC PANEL Lab Routine Osteopenia of multiple sites Prostate cancer (HCC) Expected: 12/28/2022 (Approximate), Expires: 02/27/2023 [facility] Work Phone: Comment on above: Expected: 12/28/2022 (Approximate), Expires: 02/27/2023 Start: 12-28-2022 End: 02-27-2023 Prostate specific Ag [Mass/volume] in Serum or Plasma PSA/PROSTSPECAG DIAG Lab Routine Osteopenia of multiple sites Prostate cancer (HCC) Expected: 12/28/2022 (Approximate), Expires: 02/27/2023 [facility] Work Phone: Comment on above: Expected: 12/28/2022 (Approximate), Expires: 02/27/2023 Start: 10-18-2022 FUV, Provider: Baldo Gifford, Status: Pen, Time: 9:20 AM FUV, Provider: Baldo Gifford, Status: Terry, Time: 9:20 AM Located within [facility] 250 DO Work Phone: Start: 10-06-2022 FUV, Provider: Baldo Gifford, Status: Terry, Time: 3:10 PM FUV, Provider: Baldo Gifford, Status: Pen, Time: 3:10 PM Located within [facility] 250 DO Work Phone: Start: 09-02-2022 Doppler ultrasonogra phy of bilateral carotid arteries US carotid doppler BI [facility] Start: 09-02-2022 US.doppler Carotid arteries - bilateral [facility] Start: 06-23-2022 BP CONTROLLED (<130/80) BP CONTROLLE D (<130/80) [facility] Start: 05-22-2022 End: 04-21-2023 NM PET/CT PROSTATE WHOLE BODY IMAGING NM PET/CT PROSTATE WHOLE BODY IMAGING Radiology Routine History of prostate cancer Cancer of prostate w/med recur risk (T2b-c or [place] 7 or PSA 10-20) ([facility]) Expected: 05/22/2022, Expires: 04/21/2023 [facility] Work Phone: Comment on above: Expected: 05/22/2022 , Expires: 04/21/2023 Start: 05-22-2022 End: 07-22-2022 Prostate specific Ag [Mass/volume] in Serum or Plasma PSA/PROSTSPECAG DIAG Lab Routine Cancer of prostate w/med recur risk (T2b-c or [place] 7 or PSA 10-20) ([facility]) Expected: 05/22/2022, Expires: 07/22/2022 [facility] Work Phone: Comment on above: Expected: 05/22/2022 , Expires: 07/22/2022 Start: 05-22-2022 End: 07-22-2022 Testosterone [Mass/volume] in Serum or Plasma TESTOSTERONE TOTAL Lab Routine Cancer of prostate w/med recur risk (T2b-c or [place] 7 or PSA 10-20) ([facility]) Expected: 05/22/2022, Expires: 07/22/2022 [facility] Work Phone: Comment on above: Expected: 05/22/2022 , Expires: 07/22/2022 Start: 05-15-2022 ADVANCE DIRECTIVE DISCUSSION ADVANCE DIRECTIVE DISCUSSION [facility] Start: 05-15-2022 DEPRESSION ASSESSMENT DEPRESSION ASS ESSMENT [facility] Start: 03-15-2022 Adult depression screening assessment DEPRESSION SCREENING [facility] Start: 05-15-2021 ADVANCE DIRECTIVE DISCUSSION ADVANCE DIRECTIVE DISCUSSION [facility] Start: 05-15-2021 DEPRESSION ASSESSMENT DEPRESSION ASS ESSMENT [facility] Start: 11-17-2020 Colonoscopy COLONOSCOPY [facility] Start: 11-17-2020 COLORECTAL CANCER SCREENING COLORECTAL CANCER SCREENING [facility] Start: 2007 RSV Vaccine (1 - 1-d ose 60+ series) RSV Vaccine (1 - 1-dose 60+ series) [facility] Start: 12-29-2002 Influenza vaccination LUNG CANCER SC REENING [facility] Start: 12-29-1997 Influenza vaccination LUNG CANCER [facility] Start: 12-29-1992 COLOGUARD (FIT-DNA) COLOGUARD (FIT-D NA) [facility] Start: 12-29-[address] COLONOGRAPHY [facility] Start: 12-29-1992 FECAL OCCULT BLOOD FECAL OCCULT BLOO D [facility] Start: 12-29-1992 [facility] Start: 12-29-1977 Zoledronic acid therapy ALPHA- 1 ANTITRYPSIN DEFICIENCY SCREENING [facility] Start: 12-29-1965 ANNUAL PCP TEAM FABRIC INSPECTOR AZAR DISEASE VISIT ANNUAL PCP TEAM CHRONIC DISEASE VISIT [facility] Start: 12-29-1965 BP CONTROLLED (<130/80) BP CONTROLLE D (<130/80) [facility] Start: 12-29-1965 HEPATITIS C SCREENING HEPATITIS C [facility] Start: 12-29-1965 SPIROMETRY SPIROMETRY [facility] Start: 12-29-1952 COVID-19 VACCINE (1) COVID-19 VACCIN E (1) [facility] Start: 07-01-1948 COVID-19 VACCINE (#1) COVID-19 VACCI NE (#1) [facility] Start: 1947 ABDOMINAL AORTIC ANE URYSM SCREENING ABDOMINAL AORTIC ANEURYSM SCREENING [facility] End: 07-07-2023 Mri pelvis w/o & w/contrast material MRI PROSTATE WO/W IVCON Radiology Routine Cancer of prostate w/med recur risk (T2b-c or Kita 7 or PSA 10-20) (HCC) 1 Occurrences starting 06/07/2022 until 07/07/2023 [facility] Work Phone: Comment on above: 1 Occurrences starti ng 06/07/2022 until 07/07/2023 [facility] Immunizations Immunization Date Immunization Notes Care Provider Roque colon 02-12-2022 influenza nasal, unspecified formulation CALVIN Guzman MD Work Phone: [facility] 02-12-2022 influenza virus vaccine, unspecified formulation Arline Orosco Work Phone: [facility] 250 DO Work Phone: 02-18-2021 Fluzone High-Dose Quadrivalent 0.7 ML Intramuscular Suspension Prefilled Syringe Arline Orosco Work Phone: [facility] 02-12-2021 seasonal influenza, intradermal, preservative free CALVIN Guzman MD Work Phone: [facility] 02-04-2020 influenza nasal, unspecified formulation CALVIN Guzman MD Work Phone: [facility] 02-04-2020 influenza virus vaccine, unspecified formulation Arline Orosco Work Phone: [facility] 250 DO Work Phone: 01-26-2020 influenza, high-dose , quadrivalent vaccine (FLUZONE HIGH DOSE QUADRIVALENT) Lola Loudenslager OD Work Phone: [facility] 01-14-2020 influenza, high dose seasonal, preservative-free Arline Orosco Work Phone: [facility] 02-01-2019 AS03 adjuvant CALVIN Guzman MD Work Phone: [facility] 02-01-2019 Seasonal trivalent influenza vaccine, adjuvanted, preservative free Lola Loudenslager OD Work Phone: [facility] 01-10-2019 zoster vaccine recombinant Lola Loudenslager OD Work Phone: [facility] 10-14-2018 zoster vaccine recombinant Lola Loudenslager OD Work Phone: [facility] 01-29-2018 AS03 adjuvant CALVIN Guzman MD Work Phone: [facility] 01-29-2018 Seasonal trivalent influenza vaccine, adjuvanted, preservative free Lola Loudenslager OD Work Phone: [facility] 02-10-2017 influenza, high dose seasonal, preservative-free Lola Loudenslager OD Work Phone: [facility] 02-10-2017 pneumococcal conjuga te vaccine, 13 valent Lola Loudenslager OD Work Phone: [facility] 03-04-2016 influenza, seasonal, injectable, preservative free CALVIN Guzman MD Work Phone: [facility] 03-04-2016 seasonal influenza, intradermal, preservative free Lola Loudenslager OD Work Phone: [facility] 02-07-2016 influenza, high dose seasonal, preservative-free Lola Loudenslager OD Work Phone: [facility] 02-07-2016 tetanus toxoid, redu mara diphtheria toxoid, and acellular pertussis vaccine, adsorbed Lola Loudenslager OD Work Phone: [facility] 04-16-2014 influenza, high dose seasonal, preservative-free Lola Loudenslager OD Work Phone: [facility] 04-16-2014 pneumococcal polysaccharide vaccine, 23 valent Lola Loudenslager OD Work Phone: [facility] 03-07-2014 pneumococcal polysaccharide vaccine, 23 valent Lola Loudenslager OD Work Phone: [facility] 02-27-2014 influenza, seasonal, injectable, preservative free CALVIN Guzman MD Work Phone: [facility] 02-27-2014 seasonal influenza, intradermal, preservative free Lola Loudenslager OD Work Phone: [facility] 02-20-2013 pneumococcal polysaccharide vaccine, 23 valent Lola Loudenslager OD Work Phone: [facility] Payers Date Payer Category Payer Self-pay [id number] 2018 Unknown 2018 Unknown [employer] S [employer] BLUE SHIELD AN[employer]M MEDIBLUE HMO [id number] 2018-Present [phone] [address] [place] [address] O [id number] 1959 Unknown [id number] 1947 Unknown [id number] 1947 Unknown [id number] [id number] 1947 Unknown [id number] [id number] 1947 Unknown [id number] [id number] 1947 Unknown [id number] [id number] 1947 Unknown [id number] [id number] 1947 Unknown [id number] [id number] 1947 Unknown [id number] [id number] 1947 Unknown [id number] [id number] 1947 Unknown [id number] [id number] 1947 Unknown [id number] [id number] 1947 Unknown [id number] [id number] 1947 Unknown [id number] [id number] Medicare Medicare-OP No Part B [id number] Unknown Abdi BC/BS [id number] Unknown [id number] Unknown [id number] Unknown [id number] Social History Date Type Detail Facility Start: 04-03-2012 End: 07-07-2022 Tobacco smoking status TNIS Smokes tobacco daily [facility] History of tobacco use Cigarette Smoker C [facility] Start: 04-03-2012 End: 09-22-2022 Cigarettes smoked current (pack per day) - Reported 1 [facility] Comment on above: 1 PPD; Start: 04-03-2012 End: 07-07-2022 Tobacco use and exposure Smokeless tobacco non-user [facility] Start: 08-23-2021 End: 04-10-2023 Alcohol intake Current non-drinker of alcohol (finding) [facility] Start: 1945 Sex Assigned At Male C [facility] Start: 03-12-2022 End: 03-22-2022 Exposure to SARS-CoV-2 (event) Not sure [facility] History of tobacco use Passive smoker [facility] Start: 10-01-2018 Tobacco smoking stat us NHIS Smoker (finding) [facility] Start: 09-22-2022 End: 11-24-2022 Tobacco use panel [facility] Adult Depression Screening Assessment 1 [facility] Start: 06-10-2019 Gender identity Identifies as male gender (finding) [facility] Start: 06-10-2019 Sexual orientation Heterosexual (ravinder aguilar) [facility] Clinical Notes 06-23-2021 to 05-12-2023 Telephone Encounter - Brenda Hayden - 04/11/2023 9:47 AM ESTTelephone Encounter - Brenda Hayden - 04/11/2023 9:34 AM ESTTelephone Encounter - Kiera Williamson - 04/10/2023 3:27 PM EST Note Date & Type Note Facility 05-12-2023 Note HNO ID: [id number] Author: Umer Browne RT(R) Service: ? Author Type: Technologist Type: Progress Notes Filed: 05/12/2023 2:47 PM Note Text: RADIOLOGY SERVICE PROGRESS NOTE SERVICE DATE: 05/12/2023 SERVICE TIME: 2:47 PM PATIENT IDENTITY VERIFICATION COMPLETED USING TWO (2) STANDARD IDENTIFIERS: Name and Date of confirmed by patient verbally POST EXAM PIV STATUS: Discontinued PROCEDURE TYPE: NM INJECT: PET/CT BODY SCAN. 10.8 mCi [id number]. No other medications given.. ADMINISTRATION TIME: 1321 PATIENT DISCHARGED TO: Ambulatory patient, left [place] department area. A Diagnostic radioactive procedure has taken place, with no further precautions necessary other than routine body substance precautions. More information regarding radiation safety can be found using this link: [email or web address] SIGNATURE: RT Radha(R) PATIENT NAME: Jm Barrow DATE: May 12, 2023 TIME: 2:47 PM PAGER/CONTACT #: [facility] 05-12-2023 Note HNO ID: [id number] Author: Tiffany Riddle RN Service: ? Author Type: Registered Nurse Type: Progress Notes Filed: 05/12/2023 1:22 PM Note Text: Radiology Service Progress Note DATE OF SERVICE: May 12, 2023 TIME: 1:21 PM PATIENT IDENTITY VERIFICATION COMPLETED USING TWO (2) STANDARD IDENTIFIERS: Name and Date of confirmed by patient verbally. FALL SCREENING: Has the patient had 2 falls in the last year or 1 fall with injury or currently using an Ambulatory Assistive Device (Walker, Cane, Wheelchair, Crutches, etc.)? No PATIENT GENDER DATA: Male EXAM: CT -CONTRAST INDUCED NEPHROPATHY RISK FACTORS: Not applicable CREATININE: Creatinine Date Value Ref Range Status 09/20/2022 0.94 0.73 - 1.22 mg/dL Final 07/07/2022 1.00 0.73 - 1.22 mg/dL Final 06/23/2021 0.85 0.73 - 1.22 mg/dL Final Estimated Glomerular Filtration Rate Date Value Ref Range Status 09/20/2022 85 >=60 mL/min/1.73m? Final Comment: Estimated Glomerular Filtration Rate (eGFR) is calculated using the 2020 CKD-EPI creatinine equation. This equation utilizes serum creatinine, sex, and age as parameters. The creatinine assay has traceable calibration to isotope dilution-mass spectrometry. Refer to KDIGO guidelines for clinical interpretation. In patients with unstable renal function, e.g. those with acute kidney injury, the eGFR may not accurately reflect actual GFR. eGFR- Date Value Ref Range Status 06/23/2021 >60 Final P.O.C.T. RESULTS: N/A May 12, 2023 TREATMENT: N/A IV SITE: Ambulatory: A peripheral IV was started in the Right antecubital site with a Angio cath: 22 gauge. IV SITE APPEARANCE: Clean,Dry and Intact SIGNATURE: Tiffany Riddle RN PATIENT NAME: Jm Barrow DATE: May 12, 2023 TIME: 1:21 PM [facility] 04-11-2023 Miscellaneous Notes Auth#:[id number] Date Range: 04-11-23 to 07-09-2023 22252/PSMA- piflufolastat (Pylarify) F-18 Ace Montoya INS Contact Number: Intake: online Case/Ref#: [id number] Notes: 04/11/2023 Authorized online via Sherie/Abdi routed to Stephany for scheduling in Mobile per patient's request Authorization number: PSMA Authorization date range: PSMA Primary Insurance: [employer] CROSS [employer] BLUE SHIELD/[employer] HMO Diagnosis: Prostate cancer (HCC) [C61] DX Imaging: PET Scan: 06/02/2022 PET Pathology: 02/14/2000 Pelvic lymph node biopsy [place], [place]. Doug Regalado) Metastatic prostate adenocarcinoma involving 1 of 3 lymph nodes (right obturator LN) PROSTATE GLAND, LEFT, LEVELS 1-4 , NEEDLE BIOPSIES ([id number], A-D) - PROSTATIC ADENOCARCINOMA, KITA SCORE 7 (4+3). Comment: Adenocarcinoma involves 60% of the needle biopsy specimens. Perineural invasion is present. 2. PROSTATE GLAND, RIGHT, LEVELS 1-4, NEEDLE BIOPSIES ([id number]; E-H) - PROSTATIC ADENOCARCINOMA, KITA SCORE 7 (4+3) 01/20/2000 TRUS prostate biopsy ([facility]) Prostate adenocarcinoma, Kita composite score 8 Labs: PSA 06/02/2022 PSA 0.50 03/14/2022 PSA 0.48 12/14/2020 PSA 0.20 Clinical Notes Reviewed: 04/10/2023 [facility] Date of last: The patient received primary treatment with external beam radiation therapy which was completed 2000 Lupron (enzalutamide started 06/24/2022 ADT with Lupron started at the time of diagnosis and continued until July 2013. January 2017 the patient developed an increasing PSA and Lupron resumed, currently given every 6 months. 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: EL: As soon as insurance will allow ROUTE TO SCHEDULERS POOL P PET CAR SHAKEOUT OPERATOR or P [place] SPECIAL STUDIES This form is used for MAIN CAMPUS APPOINTMENTS ONLY. Is this request for a [place] PET scan appointment? Yes: Geophysical Prospecting Surveyor: Kiera Trejo [facility] Requesting Person Dr guzman: Area Code + Phone/Pager: [phone] Who do we call to schedule this appointment? Other Contact: PSMA pet please message anne browne in [place] Requesting Staff Dr guzman Area Code + Phone/Pager: [phone] PET Orders (A delay in scheduling will result if the orders are not present at time of review): Internal ADDITIONAL ACTION MAY BE REQUIRED IF PATIENTS OON INSURANCE OR SELF PAY COVERAGE HAS NOT BEEN CLEARED FOR REQUESTED APPOINTMENT. Scheduling: EL: As soon as insurance will allow What account will this PET appointment be linked to? P/F Type of PET: Oncology: Are there additional diagnostic CT scans required to be done at time of PET scan? No Is the request for a PET MR ? No What account will diagnostic testing appointment be linked to? P/F Will the patient need anesthesia? NO Send requests to P COORD REVIEW MC documented in this encounter [facility] 04-10-2023 Note HNO ID: [id number] Author: Jose Francisco Broussard MD Service: ? Author Type: Physician Type: Progress Notes Filed: 04/10/2023 10:45 PM Note Text: PATIENT NAME: Jm Barrow DATE: 04/10/2023 PRIMARY CARE PHYSICIAN: Arline Orosco MD OTHER PHYSICIANS: Dr. Guzman, Dr. Leroy Shaw, Dr. Guzman, Dr. Webb Portions of this encounter note have been copied from my note from 12/26/2022 and has been updated where appropriate, and reflect my current medical decision making from today. CC: This is a 77 year old male with recurrent prostate cancer, seen for scheduled follow-up. INTERIM HISTORY: Since the patient's last visit here he was seen by Dr. Robb at [facility] to discuss possible brachytherapy for his localized prostate cancer recurrence. Prior to considering treatment a repeat PSMA PET scan was recommended, but the patient has not yet had the test. Clinically he feels well with no new complaints. However, his PSA continues to slowly increase. His chronic urinary symptoms are stable on current medications. MEDICATIONS: Current Outpatient Medications Medication Sig simvastatin (ZOCOR) 10 mg tablet Take 10 mg by mouth daily at bedtime. irbesartan (AVAPRO) 75 mg tablet Take 75 mg by mouth daily at bedtime. chlorthalidone (HYGROTON) 25 mg tablet Take 25 mg by mouth once daily. metoprolol succinate ER (TOPROL XL) 25 mg 24 hr tablet Take 25 mg by mouth once daily. pantoprazole DR (PROTONIX) 40 mg tablet Take 40 mg by mouth once daily. fluticasone-vilanterol (BREO ELLIPTA) 100-25 mcg/dose inhaler Inhale 1 Inhalation as instructed once daily. oxybutynin (DITROPAN) 5 mg tablet Take 5 mg by mouth twice daily. escitalopram oxalate (LEXAPRO) 20 mg tablet Take 20 mg by mouth once daily. doxazosin mesylate (CARDURA ORAL) Take 6 mg by mouth. calcium-cholecalciferol, D3, (OSCAL+D 250) 250 mg-3.125 mcg (125 unit) per tablet Take 1 tablet by mouth once daily. ascorbic acid, vitamin C, (VITAMIN C) 500 mg tablet Take 500 mg by mouth once daily. MULTI-VITAMIN ORAL Take by mouth. traZODone (DESYREL) 50 mg tablet Take 50 mg by mouth daily at bedtime. tamsulosin (FLOMAX) 0.4 mg Take 0.4 mg by mouth once daily. 2 daily Vitamin E, dl, acetate, (VITAMIN E) 400 unit capsule Take 400 Units by mouth once daily. Simethicone 125 mg cap Take by mouth. aspirin, enteric coated (ASPIRIN, ENTERIC COATED) 81 mg EC tablet Take 81 mg by mouth once daily. Docusate Sodium 100 mg tab Take 2 tablets by mouth. Cetirizine (ZYRTEC) 10 mg cap Take by mouth. denosumab (PROLIA) 60 mg/mL Inject 60 mg subcutaneously one time only. leuprolide, 6 month, (LUPRON DEPOT, 6 MONTH,) sykt IM syringe kit Inject 45 mg intramuscularly one time only. No current facility-administered medications for this visit. ALLERGIES: ALLERGIES Allergen Reactions Chlorhexidine Rash Hibaclens [Other] Rash PAST MEDICAL HISTORY: PAST MEDICAL HISTORY Diagnosis Date BPH (benign prostatic hyperplasia) Diplopia Hypertension Prostate cancer (HCC) Pseudophakia of both eyes Strabismus Wears glasses PAST SURGICAL HISTORY: PAST SURGICAL HISTORY Procedure Laterality Date APPENDECTOMY COLONOSCOPY 11/18/2019 EYE MUSCLE SURG PROC UNLISTED Right 07/05/2021 07/05/2021 - Lorenzo Archuleta MD - Recess right superior rectus by 4 mm HERNIA REPAIR HX REMOVE CATARACT, INSERT LENS,EX Bilateral 06/2019 Dr. [place], [place] TONSILLECTOMY HX FAMILY HISTORY: FAMILY HISTORY Problem Relation Age of Onset Colon Cancer Mother GI Mother Diabetes Mother Cancer Father Pancreatic or Liver Diabetes Father SOCIAL HISTORY: Social History Tobacco Use Smoking status: Every Day Packs/day: 1.00 Years: 40.00 Additional pack years: 0.00 Total pack years: 40.00 Types: Cigarettes Passive exposure: Current Smokeless tobacco: Never Vaping Use Vaping Use: Never used Substance Use Topics Alcohol use: No Drug use: Never Comment: not asked COMPLETE REVIEW OF SYSTEMS: CONSTITUTION: Negative for pain, fatigue, weight loss, or appetite loss. EENT: Negative for mouth soreness, antibiotics use, epistaxis, visual problems, neck or facial swelling, fever/chills, bleeding gums, or hearing loss. CV: Negative for edema, calf swelling, palpitations, or chest pain. RESPIRATORY: Negative for cough, SOB, hemoptysis, or wheezing. GI: Negative for nausea/vomiting, heartburn, vomiting blood, dysphasia, diarrhea, blood in stool, constipation, early satiety, PICA, vegetarian, poor nutrition, abdominal fullness, or abdominal pain. NEUROLOGICAL: Negative for numbness/tingling, dizziness, gait disturbance, headache, speech disturbance, tremor, hemiparesis/sensory loss, or change in mental status. MUSCULOSKELETAL: Negative for joint pain, joint swelling, or proximal muscle weakness. SKIN: Negative for hair loss, bruising, nail changes, rash, itching, pallor, or jaundice. ENDO/URO: Negati (more content not included)... [facility] 03-27-2023 Note HNO ID: [id number] Author: Skye Murphy PA-C Service: ? Author Type: Physician Cloth Cutting Inspector Type: Progress Notes Filed: 03/27/2023 3:12 PM Note Text: Skin Biopsy Procedure Note Skin Biopsy Accession Number: [id number] Biopsy Date: 03/27/2023 Referring physician: Barb Kiran MD UNIVERSAL PROTOCOL / SAFETY CHECKLIST Procedure to be Performed: skin biopsy Sign In: A Moment of CARE was completed. Personnel directly involved with the procedure wore the appropriate PPE (Personal Protective Equipment). Patient/Surrogate Stated/Verified: PATIENT VERIFIED(optional for EMERGENT procedures): Patient name, Date of , Relevant allergies, and The intended procedure Time Out Communication: Intended patient and procedure match the source documents. Consent documented and matches the intended procedure. Sign Out: SIGN OUT (optional for EMERGENT procedures): All specimen containers correctly labeled. JUSTINO Mosley PA-C Sign in Pt ID verified with patient. Yes, by name and date. Is patient allergic to lidocaine, epinephrine, or bandage adhesive: No Is patient on anticoagulant medicine or blood thinners: No Does patient have a history of surgery on legs or feet: No Procedure verified with the patient: Yes, left leg biopsies, 2 sites. History 77 year old male with symptoms of high blood pressure for 8 months is referred for skin biopsy to evaluate for possible small fiber neuropathy. Written aftercare was given and explained: Yes Patient verbally agrees to proceed with the procedure. Sign in completed: Yes Procedure Note Procedure confirmed with provider and product support engineer. Yes, left leg 2 skin biopsies. The procedure was discussed with the patient, including the risks, benefits, instruments and personnel involved in this procedure. All of the patient?s questions were answered. Informed consent discussed and signed: Yes Audible time-out documented: Yes Procedure Start Time: 15:03 Procedure: After the patient was placed in a lateral position the following biopsy sites were identified: left distal leg and left distal thigh. These sites were cleansed with Chloroprep and injected with 0.5cc 1% Lidocaine. Two skin biopsies were obtained using a 3mm biopsy punch and removed with the forceps and surgical blade technique. Bleeding was minimal and hemostasis was obtained by pressure. Sterile dressing was applied to each biopsy site. Audible sign out completed: All specimens labeled, no equipment issues. Procedure End Time: 15:10 Patient tolerated procedure well, without complications. Patient was discharged home. Specimens were labeled and sent to [facility] Cutaneous Nerve Laboratory. Procedure was performed by: Skye Murphy PA-C Assistance in supply/equipment preparation performed by: JUSTINO Mosley Sign out is complete. [facility] 03-27-2023 Note HNO ID: [id number] Author: Martha White Service: ? Author Type: ? Type: Progress Notes Filed: 03/27/2023 3:01 PM Note Text: UNIVERSAL PROTOCOL / SAFETY CHECKLIST Procedure to be Performed: ANS with TILT Sign In: A Moment of CARE was completed. Personnel directly involved with the procedure wore the appropriate PPE (Personal Protective Equipment). Patient/Surrogate Stated/Verified: PATIENT VERIFIED(optional for EMERGENT procedures): Patient name, Date of , Relevant allergies, and The intended procedure Time Out Communication: Intended patient and procedure match the source documents. Consent documented and matches the intended procedure. No medications required for procedure. Sign Out: SIGN OUT (optional for EMERGENT procedures): Post-procedure follow-up management communicated and Plan of Care Visit completed when applicable. Martha Betancurchuyitatianbunny [facility] 03-27-2023 Note HNO ID: [id number] Author: Martha White Service: ? Author Type: ? Type: Progress Notes Filed: 03/27/2023 3:00 PM Note Text: UNIVERSAL PROTOCOL / SAFETY CHECKLIST Procedure to be Performed: QSART Sign In: A Moment of CARE was completed. Personnel directly involved with the procedure wore the appropriate PPE (Personal Protective Equipment). Patient/Surrogate Stated/Verified: PATIENT VERIFIED(optional for EMERGENT procedures): Patient name, Date of , Relevant allergies, and The intended procedure Time Out Communication: Intended patient and procedure match the source documents. Consent documented and matches the intended procedure. Medications required for procedure verified. Sign Out: SIGN OUT (optional for EMERGENT procedures): Post-procedure follow-up management communicated and Plan of Care Visit completed when applicable. [facility] 03-27-2023 History of Presen t illness Narrative Skin Biopsy Procedure Note Skin Biopsy Accession Number: [id number] Biopsy Date: 03/27/2023 Referring physician: Barb Kiran MD UNIVERSAL PROTOCOL / SAFETY CHECKLIST Procedure to be Performed: skin biopsy Sign In: A Moment of CARE was completed. Personnel directly involved with the procedure wore the appropriate PPE (Personal Protective Equipment). Patient/Surrogate Stated/Verified: PATIENT VERIFIED(optional for EMERGENT procedures): Patient name, Date of , Relevant allergies, and The intended procedure Time Out Communication: Intended patient and procedure match the source documents. Consent documented and matches the intended procedure. Sign Out: SIGN OUT (optional for EMERGENT procedures): All specimen containers correctly labeled. JUSTINO Mosley PA-C Sign in Pt ID verified with patient. Yes, by name and date. Is patient allergic to lidocaine, epinephrine, or bandage adhesive: No Is patient on anticoagulant medicine or blood thinners: No Does patient have a history of surgery on legs or feet: No Procedure verified with the patient: Yes, left leg biopsies, 2 sites. History 77 year old male with symptoms of high blood pressure for 8 months is referred for skin biopsy to evaluate for possible small fiber neuropathy. Written aftercare was given and explained: Yes Patient verbally agrees to proceed with the procedure. Sign in completed: Yes Procedure Note Procedure confirmed with provider and product support engineer. Yes, left leg 2 skin biopsies. The procedure was discussed with the patient, including the risks, benefits, instruments and personnel involved in this procedure. All of the patient s questions were answered. Informed consent discussed and signed: Yes Audible time-out documented: Yes Procedure Start Time: 15:03 Procedure: After the patient was placed in a lateral position the following biopsy sites were identified: left distal leg and left distal thigh. These sites were cleansed with Chloroprep and injected with 0.5cc 1% Lidocaine. Two skin biopsies were obtained using a 3mm biopsy punch and removed with the forceps and surgical blade technique. Bleeding was minimal and hemostasis was obtained by pressure. Sterile dressing was applied to each biopsy site. Audible sign out completed: All specimens labeled, no equipment issues. Procedure End Time: 15:10 Patient tolerated procedure well, without complications. Patient was discharged home. Specimens were labeled and sent to [facility] Cutaneous Nerve Laboratory. Procedure was performed by: Skye Murphy PA-C Assistance in supply/equipment preparation performed by: JUSTINO Mosley Sign out is complete. documented in this encounter [facility] 03-27-2023 History of Presen t illness Narrative UNIVERSAL PROTOCOL / SAFETY CHECKLIST Procedure to be Performed: ANS with TILT Sign In: A Moment of CARE was completed. Personnel directly involved with the procedure wore the appropriate PPE (Personal Protective Equipment). Patient/Surrogate Stated/Verified: PATIENT VERIFIED(optional for EMERGENT procedures): Patient name, Date of , Relevant allergies, and The intended procedure Time Out Communication: Intended patient and procedure match the source documents. Consent documented and matches the intended procedure. No medications required for procedure. Sign Out: SIGN OUT (optional for EMERGENT procedures): Post-procedure follow-up management communicated and Plan of Care Visit completed when applicable. Martha White documented in this encounter [facility] 03-27-2023 History of Presen t illness Narrative UNIVERSAL PROTOCOL / SAFETY CHECKLIST Procedure to be Performed: QSART Sign In: A Moment of CARE was completed. Personnel directly involved with the procedure wore the appropriate PPE (Personal Protective Equipment). Patient/Surrogate Stated/Verified: PATIENT VERIFIED(optional for EMERGENT procedures): Patient name, Date of , Relevant allergies, and The intended procedure Time Out Communication: Intended patient and procedure match the source documents. Consent documented and matches the intended procedure. Medications required for procedure verified. Sign Out: SIGN OUT (optional for EMERGENT procedures): Post-procedure follow-up management communicated and Plan of Care Visit completed when applicable. Martha White documented in this encounter [facility] 02-23-2023 Note HNO ID: [id number] Author: Ace Guzman MD Service: ? Author Type: Physician Type: Progress Notes Filed: 03/01/2023 12:41 PM Note Text: Radiation Oncology - Follow Up Note PATIENT NAME: Jm Barrow PATIENT DIAGNOSIS: 1. Prostate cancer, node positive, prior pelvic and prostate radiation 2000. With PSA recurrence on ADT with recent rising PSA and PET positive finding of the prostate 2. Bladder cancer, carcinoma in situ diagnosed 2016 status post BCG with development of recurrent low-grade bladder cancer 2021 status post TUR undergoing surveillance. INTERVAL HISTORY: Patient underwent evaluation for possible brachytherapy salvage. Repeat PET was recommended which has not been done as of yet. Patient after considering options including other local ablative options does not want to pursue at this point. Prostate MRI 08/15/2022: IMPRESSION: Region of asymmetric, mildly restricted diffusion in the right mid transition zone, roughly corresponding to the area of abnormal PSMA uptake and possibly a site of recurrence. This was targeted for potential fusion biopsy. No pelvic lymphadenopathy or suspicious osseous lesion. PSMA prostate PET scan 06/02/2022: Head and neck: -No suspicious PSMA expressing neoplastic process. Chest: -No evidence of PSMA expressing neoplastic process Abdomens and Pelvis: - PSMA Avid focus in the prostatic region suspicious for neoplasm. Bones and soft tissues: - No evidence of PSMA expressing neoplastic process PSA HISTORY: PSA Date Value 02/21/2023 0.49 ng/mL 12/19/2022 0.48 ng/mL 11/17/2022 0.49 ng/mL 09/20/2022 0.38 ng/mL 02/03/2014 0.17 ng/mL 11/12/2013 <0.06 07/15/2013 0.23 ng/mL 06/24/2013 0.23 ng/mL PSA. (no units) Date Value 03/14/2022 0.48 12/14/2020 0.20 09/15/2017 0.15 11/10/2015 1.36 PSA 0.19 01/15/2020 PSA 0.16 11/12/2019 PSA 0.14 10/23/2018 PSA 0.18 04/20/2018 PSA 0.15 09/15/2017 Latest Reference Range AND Units 06/02/22 13:12 Testosterone 193 - 824 ng/dL <12 (L) (L): Data is abnormally low ALLERGIES: ALLERGIES Allergen Reactions Chlorhexidine Rash Hibaclens [Other] Rash MEDICATIONS: simvastatin (ZOCOR) 10 mg tablet Take 10 mg by mouth daily at bedtime. irbesartan (AVAPRO) 75 mg tablet Take 75 mg by mouth daily at bedtime. chlorthalidone (HYGROTON) 25 mg tablet Take 25 mg by mouth once daily. metoprolol succinate ER (TOPROL XL) 25 mg 24 hr tablet Take 25 mg by mouth once daily. pantoprazole DR (PROTONIX) 40 mg tablet Take 40 mg by mouth once daily. fluticasone-vilanterol (BREO ELLIPTA) 100-25 mcg/dose inhaler Inhale 1 Inhalation as instructed once daily. oxybutynin (DITROPAN) 5 mg tablet Take 5 mg by mouth twice daily. escitalopram oxalate (LEXAPRO) 20 mg tablet Take 20 mg by mouth once daily. doxazosin mesylate (CARDURA ORAL) Take 6 mg by mouth. calcium-cholecalciferol, D3, (OSCAL+D 250) 250 mg-3.125 mcg (125 unit) per tablet Take 1 tablet by mouth once daily. ascorbic acid, vitamin C, (VITAMIN C) 500 mg tablet Take 500 mg by mouth once daily. MULTI-VITAMIN ORAL Take by mouth. traZODone (DESYREL) 50 mg tablet Take 50 mg by mouth daily at bedtime. tamsulosin (FLOMAX) 0.4 mg Take 0.4 mg by mouth once daily. 2 daily Vitamin E, dl, acetate, (VITAMIN E) 400 unit capsule Take 400 Units by mouth once daily. Simethicone 125 mg cap Take by mouth. aspirin, enteric coated (ASPIRIN, ENTERIC COATED) 81 mg EC tablet Take 81 mg by mouth once daily. Docusate Sodium 100 mg tab Take 2 tablets by mouth. Cetirizine (ZYRTEC) 10 mg cap Take by mouth. denosumab (PROLIA) 60 mg/mL Inject 60 mg subcutaneously one time only. leuprolide, 6 month, (LUPRON DEPOT, 6 MONTH,) sykt IM syringe kit Inject 45 mg intramuscularly one time only. PERTINENT REVIEW OF SYSTEMS: Hematuria: none Dysuria: none Incontinence: none Urgency:mild Catheter use: none Medications to aid urination: Yes Bowel movement frequency: 1-3/day Bowel movement quality: normal Blood per rectum: none lupron restarted 01/29 PHYSICAL EXAM: 02/23/23 1323 BP: 109/68 Pulse: 64 Resp: 16 Temp: 36.3 ?C (97.4 ?F) SpO2: 95% Weight: 83.5 kg (184 lb) KPS: 100 General appearance: Alert and oriented. No acute distress. Skin: Skin color, texture, turgor normal, no suspicious rashes or lesions. ASSESSMENT/PLAN: 1. Bladder cancer. doing well without evidence of recurrence has continued follow-up with Dr. Shaw. 2 Prostate cancer [place] 8, node positive with prior treatment including pelvic radiation as well as androgen ablative therapy, radiation completed 2000. Lupron restarted January 2017 due to PSA relapse continues on ADT Patient has apparent localized castrate resistant recurrence. He underwent trial of enzalutamide however intolerance due to development of hypotension. Currently off of antiandrogen. Patient at this point does not want to pursue local ablative salvage yuri (more content not included)... [facility] 02-23-2023 History of Presen t illness Narrative Images from the original note were not included. Radiation Oncology - Follow Up Note PATIENT NAME: Jm Barrow PATIENT DIAGNOSIS: 1. Prostate cancer, node positive, prior pelvic and prostate radiation 2000. With PSA recurrence on ADT with recent rising PSA and PET positive finding of the prostate 2. Bladder cancer, carcinoma in situ diagnosed 2016 status post BCG with development of recurrent low-grade bladder cancer 2021 status post TUR undergoing surveillance. INTERVAL HISTORY: Patient underwent evaluation for possible brachytherapy salvage. Repeat PET was recommended which has not been done as of yet. Patient after considering options including other local ablative options does not want to pursue at this point. Prostate MRI 08/15/2022: IMPRESSION: Region of asymmetric, mildly restricted diffusion in the right mid transition zone, roughly corresponding to the area of abnormal PSMA uptake and possibly a site of recurrence. This was targeted for potential fusion biopsy. No pelvic lymphadenopathy or suspicious osseous lesion. PSMA prostate PET scan 06/02/2022: Head and neck: -No suspicious PSMA expressing neoplastic process. Chest: -No evidence of PSMA expressing neoplastic process Abdomens and Pelvis: - PSMA Avid focus in the prostatic region suspicious for neoplasm. Bones and soft tissues: - No evidence of PSMA expressing neoplastic process PSA HISTORY: PSA Date Value 02/21/2023 0.49 ng/mL 12/19/2022 0.48 ng/mL 11/17/2022 0.49 ng/mL 09/20/2022 0.38 ng/mL 02/03/2014 0.17 ng/mL 11/12/2013 <0.06 07/15/2013 0.23 ng/mL 06/24/2013 0.23 ng/mL PSA. (no units) Date Value 03/14/2022 0.48 12/14/2020 0.20 09/15/2017 0.15 11/10/2015 1.36 PSA 0.19 01/15/2020 PSA 0.16 11/12/2019 PSA 0.14 10/23/2018 PSA 0.18 04/20/2018 PSA 0.15 09/15/2017 Latest Reference Range & Units 06/02/22 13:12 Testosterone 193 - 824 ng/dL <12 (L) (L): Data is abnormally low ALLERGIES: ALLERGIES Allergen Reactions Chlorhexidine Rash Hibaclens [Other] Rash MEDICATIONS: simvastatin (ZOCOR) 10 mg tablet Take 10 mg by mouth daily at bedtime. irbesartan (AVAPRO) 75 mg tablet Take 75 mg by mouth daily at bedtime. chlorthalidone (HYGROTON) 25 mg tablet Take 25 mg by mouth once daily. metoprolol succinate ER (TOPROL XL) 25 mg 24 hr tablet Take 25 mg by mouth once daily. pantoprazole DR (PROTONIX) 40 mg tablet Take 40 mg by mouth once daily. fluticasone-vilanterol (BREO ELLIPTA) 100-25 mcg/dose inhaler Inhale 1 Inhalation as instructed once daily. oxybutynin (DITROPAN) 5 mg tablet Take 5 mg by mouth twice daily. escitalopram oxalate (LEXAPRO) 20 mg tablet Take 20 mg by mouth once daily. doxazosin mesylate (CARDURA ORAL) Take 6 mg by mouth. calcium-cholecalciferol, D3, (OSCAL+D 250) 250 mg-3.125 mcg (125 unit) per tablet Take 1 tablet by mouth once daily. ascorbic acid, vitamin C, (VITAMIN C) 500 mg tablet Take 500 mg by mouth once daily. MULTI-VITAMIN ORAL Take by mouth. traZODone (DESYREL) 50 mg tablet Take 50 mg by mouth daily at bedtime. tamsulosin (FLOMAX) 0.4 mg Take 0.4 mg by mouth once daily. 2 daily Vitamin E, dl, acetate, (VITAMIN E) 400 unit capsule Take 400 Units by mouth once daily. Simethicone 125 mg cap Take by mouth. aspirin, enteric coated (ASPIRIN, ENTERIC COATED) 81 mg EC tablet Take 81 mg by mouth once daily. Docusate Sodium 100 mg tab Take 2 tablets by mouth. Cetirizine (ZYRTEC) 10 mg cap Take by mouth. denosumab (PROLIA) 60 mg/mL Inject 60 mg subcutaneously one time only. leuprolide, 6 month, (LUPRON DEPOT, 6 MONTH,) sykt IM syringe kit Inject 45 mg intramuscularly one time only. PERTINENT REVIEW OF SYSTEMS: Hematuria: none Dysuria: none Incontinence: none Urgency:mild Catheter use: none Medications to aid urination: Yes Bowel movement frequency: 1-3/day Bowel movement quality: normal Blood per rectum: none lupron restarted 01/29 PHYSICAL EXAM: 02/23/23 1323 BP: 109/68 Pulse: 64 Resp: 16 Temp: 36.3 C (97.4 F) SpO2: 95% Weight: 83.5 kg (184 lb) KPS: 100 General appearance: Alert and oriented. No acute distress. Skin: Skin color, texture, turgor normal, no suspicious rashes or lesions. ASSESSMENT/PLAN: 1. Bladder cancer. doing well without evidence of recurrence has continued follow-up with Dr. Shaw. 2 Prostate cancer [place] 8, node positive with prior treatment including pelvic radiation as well as androgen ablative therapy, radiation completed 2000. Lupron restarted January 2017 due to PSA relapse continues on ADT Patient has apparent localized castrate resistant recurrence. He underwent trial of enzalutamide however intolerance due to development of hypotension. Currently off of antiandrogen. Patient at this point does not want to pursue local ablative salvage treatment. I did discuss with him and would be reasonable to repeat his PSMA PET which has been ordered. This may give us further insight. Fortunately his PSA has been fairly slow spreading to rise. We will plan to see patient back after his PET scan for further discussion. Signed by: Ace Guzman MD cc: Arline Orosco MD [address] [place] [phone] [address] Broussard. Portions of the above note extracted and edited from previous visit as well as active information included in the EMR. documented in this encounter [facility] 02-23-2023 Nurse Note AUA= 12 documented in this encounter [facility] 02-15-2023 Note HNO ID: [id number] Author: Barb Kiran MD Service: ? Author Type: Physician Type: Progress Notes Filed: 02/15/2023 9:59 AM Note Text: Neurology Clinic - February 15, 2023 Reason for visit: Mr. Barrow is a self referral for my opinion regarding neuropathy. My final recommendation will be communicated back to the requesting physician by way of shared medical record or letter. HISTORY OF PRESENT ILLNESS: Patient is a 77 year old, right-handed, White, male with history of BPH, diplopia, HTN, prostate cancer s/p radiation(1999, recurrence in May 2022), pseudophakia, strabismus. History gathered from patient and electronic medical records. He has h/o prostate cancer s/p radiation in 1999(on lupron), found to have recurrence in may /jun 2022; started on xtandi(enzalutamide). He has h/o HTN, maintained on cardura and HCTZ which kept his BP controlled. BP started going up, when he started xtandi(known side effect), this was discontinued after a month. But despite discontinuation of xtandi, BP remain persistently high; cardura dose increased, HCTZ switched to chlorthalidone, added avapro and on PRN metoprolol. He saw cardiology, he is noted to have orthostasis, SBP may drop by 50 to 60 on standing and diastolic BP may drop by 10-15 points. His fire controlman was concerned about autonomic neuropathy; recommending to get autonomic testing and following up with him after. He then called for this appointment. When he looked into it, he reports to have other symptoms that may be related including: - intense 'cold' flashes - do not sweat - has '' bowels - can make bowel movement but feels there is something left - cannot pass completely Denies history of numbness, may have intermittent tingling in the fingers, no sharp or burning pain/nausea or vomiting, (+) sometimes diarrhea, no constipation, (+) bladder cancer with good bladder function, (+) lack or decrease in sweat production, (+) light-headedness, (-) passing out spells. Patient does not have a dietary preference, no EtOH; (+) supplements - vit E, vit D, B12, MVI. No known exposure to heavy metals or toxins, no chemotherapeutic agents; (+) radiation treatment in 1999 for prostate cancer. 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 PAST MEDICAL HISTORY Diagnosis Date BPH (benign prostatic hyperplasia) Diplopia Hypertension Prostate cancer (HCC) Pseudophakia of both eyes Strabismus Wears glasses PAST SURGICAL HISTORY Procedure Laterality Date APPENDECTOMY COLONOSCOPY 11/18/2019 EYE MUSCLE SURG PROC UNLISTED Right 07/05/2021 07/05/2021 - Lorenzo Archuleta MD - Recess right superior rectus by 4 mm HERNIA REPAIR HX REMOVE CATARACT, INSERT LENS,EX Bilateral 06/2019 Dr. Grimm - [place], [place] TONSILLECTOMY HX MEDICATIONS: Current Outpatient Medications Medication Sig Dispense Refill irbesartan (AVAPRO) 75 mg tablet Take 75 mg by mouth daily at bedtime. chlorthalidone (HYGROTON) 25 mg tablet Take 25 mg by mouth once daily. metoprolol succinate ER (TOPROL XL) 25 mg 24 hr tablet Take 25 mg by mouth once daily. pantoprazole DR (PROTONIX) 40 mg tablet Take 40 mg by mouth once daily. fluticasone-vilanterol (BREO ELLIPTA) 100-25 mcg/dose inhaler Inhale 1 Inhalation as instructed once daily. oxybutynin (DITROPAN) 5 mg tablet Take 5 mg by mouth twice daily. escitalopram oxalate (LEXAPRO) 20 mg tablet Take 20 mg by mouth once daily. doxazosin mesylate (CARDURA ORAL) Take 6 mg by mouth. calcium-cholecalciferol, D3, (OSCAL+D 250) 250 mg-3.125 mcg (125 unit) per tablet Take 1 tablet by mouth once daily. ascorbic acid, vitamin C, (VITAMIN C) 500 mg tablet Take 500 mg by mouth once daily. MULTI-VITAMIN ORAL Take by mouth. traZODone (DESYREL) 50 mg tablet Take 50 mg by mouth daily at bedtime. tamsulosin (FLOMAX) 0.4 mg Take 0.4 mg by mouth once daily. 2 daily Vitamin E, dl, acetate, (VITAMIN E) 400 unit capsule Take 400 Units by mouth once daily. Simethicone 125 mg cap Take by mouth. aspirin, enteric coated (ASPIRIN, ENTERIC COATED) 81 mg EC tablet Take 81 mg by mouth once daily. Docusate Sodium 100 mg tab Take 2 tablets by mouth. Cetirizine (ZYRTEC) 10 mg cap Take by mouth. denosumab (PROLIA) 60 mg/mL Inject 60 mg subcutaneously one time only. leuprolide, 6 month, (LUPRON DEPOT, 6 MONTH,) sykt IM syringe kit Inject 45 mg intramuscularly one time only. No current facility-administered medications for this visit. ALLERGY: ALLERGIES Allergen Reactions Chlorhexidine Rash Hibaclens [Other] Rash FAMILY HISTORY Problem Relation Age of Onset Colon Cancer Mother GI Mother Diabetes Mother Cancer Father Pancreatic or Liver Diabetes Father Social History Tobacco Use Smoking status: Every Day Packs/day: 1.00 Years: 40.00 Additional pack years: 0.00 Total pack years: 40.00 Types: Cigarettes Passive exposure: Current Smokeless tobacco: Never Vaping Use Vaping Use: Never used Substa (more content not included)... [facility] 01-04-2023 Note HNO ID: [id number] Author: James Robb MD Service: ? Author Type: Physician Type: Progress Notes Filed: 01/04/2023 1:08 PM Note Text: PROSTATE CANCER INITIAL VISIT SERVICE DATE: January 04, 2023 PRIMARY CARE PROVIDER: Arline Orosco MD REFERRING PROVIDER: Manny Meza [id number] [facility] [address] [facility] [id number] Consult requested for an opinion regarding the evaluation and treatment of prostate cancer. My final impression and recommendations will be communicated back to the requesting physician by way of the shared medical record or letter via US mail. I spent 60 minutes in the visit, with more than 50% of the total [id number] time of the visit in counseling / coordination of care. SUBJECTIVE HISTORY OF PRESENT ILLNESS: Mr. Barrow is a 77 year old and presents with spouse. CaP (iPSA = 14, bGS = 4+4=8, by patient's recollection), [id number] s/p EBRT and ADT completed 2000. Multiple episodes of hematuria since and a biochemical recurrence treated with Lupron now wirh PSA elevation on Lupron. PSMA PET shows prostate-only recurrence. Consult re: salvage options. NCCN CRITERIA VALUES Clinical Stage (AJCC 7th Edition) Tx, N1, Mx = stage KHANG [any T, N1, M0, any PSA, any GG] (AJCC 8th ed.) Previous PSA Score(s) (PSA Should Be Within 3 Months of Biopsy) PSA Date Value 12/19/2022 0.48 ng/mL 11/17/2022 0.49 ng/mL 09/20/2022 0.38 ng/mL 07/07/2022 0.20 ng/mL 02/03/2014 0.17 ng/mL 11/12/2013 <0.06 07/15/2013 0.23 ng/mL 06/24/2013 0.23 ng/mL PSA. (no units) Date Value 03/14/2022 0.48 12/14/2020 0.20 09/15/2017 0.15 11/10/2015 1.36 PSA, Percent Free (%) Date Value 04/03/2012 Percent free not reported when Total and/or Free PSA value is below the Date of Biopsy Not Available Type of Biopsy TRUS Random Biopsy [place]/ISUP Group unkn Total # of Biopsy Cores unkn Total # of Positive Biopsy Cores unkn Greatest % Cancer in Any Single Core unkn PSA Density unkn 2017 NCCN Risk Group unkn PERTINENT HISTORY: Urinary frequency (D/N): 6-8/2 Dysuria: No Incontinence: Mild Hematuria: No Baseline Urinary Function: 1- No pads AUA QUESTIONNAIRE (Symptoms Prior to Biopsy): Incomplete Emptyin (less than half the time) Frequency (within 2 hours of previous void): 0 (not at all) Intermittency: 5 (almost always) Urgency (difficulty postponing urination): 0 (not at all) Weak Stream: 3 (about half the time) Strainin (less than 1 time in 5) Nocturia: 2x per night - Total AUA Score: 13 BASELINE ERECTILE FUNCTION: 5- No erections PREVIOUS TREATMENTS: IMRT: July, TESTING TO DATE: PET Scan Results: Head and neck: -No suspicious PSMA expressing neoplastic process. Chest: -No evidence of PSMA expressing neoplastic process Abdomens and Pelvis: - PSMA Avid focus in the prostatic region suspicious for neoplasm. Bones and soft tissues: - No evidence of PSMA expressing neoplastic process GENOMIC TESTING: None PAST MEDICAL HISTORY Diagnosis Date BPH (benign prostatic hyperplasia) Diplopia Hypertension Prostate cancer (HCC) Pseudophakia of both eyes Strabismus Wears glasses PAST SURGICAL HISTORY Procedure Laterality Date APPENDECTOMY COLONOSCOPY 11/18/2019 EYE MUSCLE SURG PROC UNLISTED Right 07/05/2021 07/05/2021 - Lorenzo Archuleta MD - Recess right superior rectus by 4 mm HERNIA REPAIR HX REMOVE CATARACT, INSERT LENS,EX Bilateral 06/2019 Dr. Grimm - [place], [place] TONSILLECTOMY HX FAMILY HISTORY Problem Relation Age of Onset Colon Cancer Mother GI Mother Diabetes Mother Cancer Father Pancreatic or Liver Diabetes Father KNOWN FAMILIAL HISTORY: Prostate Cancer in maternal uncles Social History Tobacco Use Smoking status: Every Day Packs/day: 1.00 Years: 40.00 Additional pack years: 0.00 Total pack years: 40.00 Types: Cigarettes Passive exposure: Current Smokeless tobacco: Never Vaping Use Vaping Use: Never used Substance Use Topics Alcohol use: No Drug use: Never Comment: not asked ALLERGIES Allergen Reactions Chlorhexidine Rash Hibaclens [Other] Rash MEDICATIONS: irbesartan (AVAPRO) 75 mg tablet Take 75 mg by mouth daily at bedtime. chlorthalidone (HYGROTON) 25 mg tablet Take 25 mg by mouth once daily. metoprolol succinate ER (TOPROL XL) 25 mg 24 hr tablet Take 25 mg by mouth once daily. pantoprazole DR (PROTONIX) 40 mg tablet Take 40 mg by mouth once daily. fluticasone-vilanterol (BREO ELLIPTA) 100-25 mcg/dose inhaler Inhale 1 Inhalation as instructed once daily. oxybutynin (DITROPAN) 5 mg tablet Take 5 mg by mouth twice daily. escitalopram oxalate (LEXAPRO) 20 mg tablet Take 20 mg by mouth once daily. doxazosin mesylate (CARDURA ORAL) Take 6 mg by mouth. calcium-cholecalciferol, D3, (OSCAL+D 250) 250 mg-3.125 mcg (125 unit) per tablet Take 1 tablet by mouth once daily. ascorbic acid, vitamin C, (VITAMIN C) 500 mg tablet Take 500 mg by mouth once d (more content not included)... [facility] 12-28-[address] Broussard spoke w/ Dr Guzman regarding radiation seed implant for pt. Dr Guzman recommends pt see Dr Robb as scheduled. Pt notified and verbalizes understanding. Umer Dale RN documented in this encounter [facility] 12-26-2022 Note HNO ID: [id number] Author: Jose Francisco Broussard MD Service: ? Author Type: Physician Type: Progress Notes Filed: 12/28/2022 6:06 AM Note Text: PATIENT NAME: Jm Barrow DATE: 12/26/2022 PRIMARY CARE PHYSICIAN: Arline Orosco MD OTHER PHYSICIANS: Dr. Guzman, Dr. Leroy Shaw, Dr. Guzman, Dr. Higgins Portions of this encounter note have been copied from my note from 09/22/2022 and has been updated where appropriate, and reflect my current medical decision making from today. CC: This is a 76 year old male with recurrent prostate cancer, seen for scheduled follow-up. INTERIM HISTORY: Since the patient's last visit here he was seen at [facility] by Dr. 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 The patient is now considering brachytherapy and has been referred to Dr. Robb to discuss. Otherwise he has had no significant medical changes. His blood pressure remains quite labile, and he is symptomatic with intermittent fatigue and weakness. No unusual pain. No difficulties with urination. MEDICATIONS: Current Outpatient Medications Medication Sig pantoprazole DR (PROTONIX) 40 mg tablet Take 40 mg by mouth once daily. fluticasone-vilanterol (BREO ELLIPTA) 100-25 mcg/dose inhaler Inhale 1 Inhalation as instructed once daily. oxybutynin XL (DITROPAN XL) 5 mg 24 hr tablet Take 5 mg by mouth twice daily. escitalopram oxalate (LEXAPRO) 20 mg tablet Take 20 mg by mouth once daily. doxazosin mesylate (CARDURA ORAL) Take 6 mg by mouth. calcium-cholecalciferol, D3, (OSCAL+D 250) 250 mg-3.125 mcg (125 unit) per tablet Take 1 tablet by mouth once daily. ascorbic acid, vitamin C, (VITAMIN C) 500 mg tablet Take 500 mg by mouth once daily. MULTI-VITAMIN ORAL Take by mouth. traZODone (DESYREL) 50 mg tablet Take 50 mg by mouth daily at bedtime. tamsulosin (FLOMAX) 0.4 mg Take 0.4 mg by mouth once daily. 2 daily Vitamin E, dl, acetate, (VITAMIN E) 400 unit capsule Take 400 Units by mouth once daily. Simethicone 125 mg cap Take by mouth. aspirin, enteric coated (ASPIRIN, ENTERIC COATED) 81 mg EC tablet Take 81 mg by mouth once daily. Docusate Sodium 100 mg tab Take 2 tablets by mouth. Cetirizine (ZYRTEC) 10 mg cap Take by mouth. denosumab (PROLIA) 60 mg/mL Inject 60 mg subcutaneously one time only. leuprolide, 6 month, (LUPRON DEPOT, 6 MONTH,) sykt IM syringe kit Inject 45 mg intramuscularly one time only. No current facility-administered medications for this visit. ALLERGIES: ALLERGIES Allergen Reactions Chlorhexidine Rash Hibaclens [Other] Rash PAST MEDICAL HISTORY: PAST MEDICAL HISTORY Diagnosis Date BPH (benign prostatic hyperplasia) Diplopia Hypertension Prostate cancer (HCC) Pseudophakia of both eyes Strabismus Wears glasses PAST SURGICAL HISTORY: PAST SURGICAL HISTORY Procedure Laterality Date APPENDECTOMY COLONOSCOPY 11/18/2019 EYE MUSCLE SURG PROC UNLISTED Right 07/05/2021 07/05/2021 - Lorenzo Archuleta MD - Recess right superior rectus by 4 mm HERNIA REPAIR HX REMOVE CATARACT, INSERT LENS,EX Bilateral 06/2019 Dr. Grimm [place], [place] TONSILLECTOMY HX FAMILY HISTORY: FAMILY HISTORY Problem Relation Age of Onset Colon Cancer Mother GI Mother Diabetes Mother Cancer Father Pancreatic or Liver Diabetes Father SOCIAL HISTORY: Social History Tobacco Use Smoking status: Every Day Packs/day: 1.00 Years: 40.00 Additional pack years: 0.00 Total pack years: 40.00 Types: Cigarettes Passive exposure: Current Smokeless tobacco: Never Vaping Use Vaping Use: Never used Substance Use Topics Alcohol use: No Drug use: Never Comment: not asked COMPLETE REVIEW OF SYSTEMS: CONSTITUTION: Negative for pain, fatigue, weight loss, or appetite loss. EENT: Negative for mouth soreness, antibiotics use, epistaxis, visual problems, neck or facial swelling, fever/chills, bleeding gums, or hearing loss. CV: Negative for edema, calf swelling, palpitations, or chest pain. RESPIRATORY: Negative for cough, SOB, hemoptysis, or wheezing. GI: Negative for nausea/vomiting, heartburn, vomiting blood, dysphasia, diarrhea, blood in stool, constipation, early satiety, PICA, vegetarian, poor nutrition, abdominal fullness, or abdominal pain. NEUROLOGICAL: Negative for numbness/tingling, dizziness, gait disturbance, headache, speech disturbance, tremor, hemiparesis/sensory loss, or change in mental status. MUSCULOSKELETAL: Negative for joint pain, joint swelling, or proximal muscle weakness. SKIN: Negative for hair loss, bruising, nail changes, rash, itching, pallor, or jaundice. ENDO/URO: Negative for hot flashes, cold or heat intolerance, urinary frequency, urinary hesitancy, menorrhagia, or hematuria. PSYCH: Negative for anxiety, depression, or other. PHYSICAL EXAM: BP (!) 94/45 Pulse 71 Temp 36.2 ?C (97.2 ?F) (Temporal) Resp 16 Ht 182.9 cm (6' 0 (more content not included)... [facility] 12-07-2022 Note HNO ID: [id number] Author: Manny Meza MD Service: ? Author Type: Physician Type: Progress Notes Filed: 12/07/2022 3:33 PM Note Text: PATIENT: Jm Barrow [id number] REFERRING MD: Ace Guzamn NEW PATIENT VISIT 12/06/2022 Chief Complaint HIFU Referral Consultation requested by Dr. Guzman for an opinion regarding eval for focal therapy. My final recommendations will be communicated back to the requesting physician by way of shared Medical record or letter to requesting physician via US mail. 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 To have cystolitholapaxy in December. Currently having obstructive urinary symptoms but at baseline without bothersome urinary symptoms. Per Dr. Guzman note: Prostate cancer [place] 8, node positive with prior treatment including pelvic radiation as well as androgen ablative therapy, radiation completed 2000. Lupron restarted January 2017 due to PSA relapse continues on ADT. Patient has apparent localized castrate resistant recurrence. He underwent trial of enzalutamide however intolerance due to development of hypotension. PSMA PET 06/02/2022 with expression in the prostate 08/15/2022 MRI prostate asymmetric, restrictued diffusion in right mid TZ corresponding to area of abnormality on PSMA PET. 11/17/2022 PSA 0.49 11/24/2022 Met with [facility] Dr. Guzman, discussed brachytherapy vs focal therapy Abdominal surgeries- inguinal hernia repair, benign testicular mass- removed. AUA 10 QOL 2 (at baseline) CARL - since starting lupron unable to maintain erection PVR 0 GUROS: Force of Stream:varies NOCTURIA: 1-2 Day Time Frequency: unsure Hesitancy: no Intermittency: no Incomplete Emptying: no Post void Dribbling: no Urinary Retention Hx: no Double Voiding: no Urgency: no Dysuria: no Hematuria history: no Erectile dysfunction: yes UTI Hx: no Stone Hx: bladder stone, kidney stone HISTORY OF FAMILY CANCER: master of ceremonies on mothers side Past Histories PAST MEDICAL HISTORY Diagnosis Date BPH (benign prostatic hyperplasia) Diplopia Hypertension Prostate cancer (HCC) Pseudophakia of both eyes Strabismus Wears glasses PAST SURGICAL HISTORY Procedure Laterality Date APPENDECTOMY COLONOSCOPY 11/18/2019 EYE MUSCLE SURG PROC UNLISTED Right 07/05/2021 07/05/2021 - Lorenzo Archuleta MD - Recess right superior rectus by 4 mm HERNIA REPAIR HX REMOVE CATARACT, INSERT LENS,EX Bilateral 06/2019 Dr. Grimm - [place], [place] TONSILLECTOMY HX Medications Current Outpatient Medications Medication Instructions ascorbic acid (vitamin C) (VITAMIN C) 500 mg, ORAL, DAILY aspirin, enteric coated (ASPIRIN, ENTERIC COATED) 81 mg, ORAL, DAILY calcium-cholecalciferol, D3, (OSCAL+D 250) 250 mg-3.125 mcg (125 unit) per tablet 1 tablet, ORAL, DAILY Cetirizine (ZYRTEC) 10 mg cap ORAL denosumab (PROLIA) 60 mg, SUBCUTANEOUS, ONCE Docusate Sodium 100 mg tab 2 tablets, ORAL doxazosin mesylate (CARDURA ORAL) 6 mg, ORAL escitalopram oxalate (LEXAPRO) 20 mg, ORAL, DAILY fluticasone-vilanterol (BREO ELLIPTA) 100-25 mcg/dose inhaler 1 Inhalation , INHALATION, DAILY LUPRON DEPOT (6 MONTH) 45 mg, INTRAMUSCULAR, ONCE MULTI-VITAMIN ORAL ORAL oxybutynin XL (DITROPAN XL) 5 mg, ORAL, [address] (PROTONIX) 40 mg, ORAL, DAILY Simethicone 125 mg cap ORAL tamsulosin (FLOMAX) 0.4 mg, ORAL, DAILY, 2 daily traZODone (DESYREL) 50 mg, ORAL, AT BEDTIME Vitamin E (dl, acetate) (VITAMIN E) 400 Units, ORAL, DAILY Family History FAMILY HISTORY Problem Relation Age of Onset Colon Cancer Mother GI Mother Diabetes Mother Cancer Father Pancreatic or Liver Diabetes Father Social History Social History Tobacco Use Smoking status: Every Day Packs/day: 1.00 Years: 40.00 Total pack years: 40.00 Types: Cigarettes Passive exposure: Current Smokeless tobacco: Never Vaping Use Vaping Use: Never used Substance Use Topics Alcohol use: No Drug use: Never Comment: not asked Allergies Allergies: Chlorhexidine Rash Hibaclens [Other] Rash Review of Systems REVIEW OF SYSTEMS 1.GENERAL: No weight loss, malaise or fevers. 2.GI: No nausea, vomiting, or diarrhea 3.: See HPI Physical Exam There were no vitals taken for this visit. General: Alert, no acute distress, oriented Lungs: No respiratory distress or pursed lip breathing Psych: Affect and mood normal Abdomen: Estimated body mass index is 23.97 kg/m? as calculated from the following: Height as of 09/22/22: 182.9 cm (6' 0.01 ). Weight as of 11/24/22: 80.2 kg (176 lb 12.8 oz). Labs and Pathology PSA Date Value 11/17/2022 0.49 ng/mL 09/20/2022 0.38 ng/ (more content not included)... [facility] 12-07-2022 History of Presen t illness Narrative PATIENT: Jm Barrow [id number] REFERRING MD: Ace Guzman NEW PATIENT VISIT 12/06/2022 Chief Complaint HIFU Referral Consultation requested by Dr. Guzman for an opinion regarding eval for focal therapy. My final recommendations will be communicated back to the requesting physician by way of shared Medical record or letter to requesting physician via US mail. History of Present Illness Jm Barrow is a very pleasant 76 year old male who presents with a history of [place] 8 prostate cancer, node positive- s/p abdominal exploration, pelvic and prostate radiation 2000, CIS bladder cancer 2017 s/p BCG and 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 To have cystolitholapaxy in December. Currently having obstructive urinary symptoms but at baseline without bothersome urinary symptoms. Per Dr. Guzman note: Prostate cancer [place] 8, node positive with prior treatment including pelvic radiation as well as androgen ablative therapy, radiation completed 2000. Lupron restarted January 2017 due to PSA relapse continues on ADT. Patient has apparent localized castrate resistant recurrence. He underwent trial of enzalutamide however intolerance due to development of hypotension. PSMA PET 06/02/2022 with expression in the prostate 08/15/2022 MRI prostate asymmetric, restrictued diffusion in right mid TZ corresponding to area of abnormality on PSMA PET. 11/17/2022 PSA 0.49 11/24/2022 Met with [facility] Dr. Guzman, discussed brachytherapy vs focal therapy Abdominal surgeries- inguinal hernia repair, benign testicular mass- removed. AUA 10 QOL 2 (at baseline) CARL - since starting lupron unable to maintain erection PVR 0 GUROS: Force of Stream:varies NOCTURIA: 1-2 Day Time Frequency: unsure Hesitancy: no Intermittency: no Incomplete Emptying: no Post void Dribbling: no Urinary Retention Hx: no Double Voiding: no Urgency: no Dysuria: no Hematuria history: no Erectile dysfunction: yes UTI Hx: no Stone Hx: bladder stone, kidney stone HISTORY OF FAMILY CANCER: master of ceremonies on mothers side Past Histories PAST MEDICAL HISTORY Diagnosis Date BPH (benign prostatic hyperplasia) Diplopia Hypertension Prostate cancer (HCC) Pseudophakia of both eyes Strabismus Wears glasses PAST SURGICAL HISTORY Procedure Laterality Date APPENDECTOMY COLONOSCOPY 11/18/2019 EYE MUSCLE SURG PROC UNLISTED Right 07/05/2021 07/05/2021 - Lorenzo Archuleta MD - Recess right superior rectus by 4 mm HERNIA REPAIR HX REMOVE CATARACT, INSERT LENS,EX Bilateral 06/2019 Dr. Grimm - [place], [place] TONSILLECTOMY HX Medications Current Outpatient Medications Medication Instructions ascorbic acid (vitamin C) (VITAMIN C) 500 mg, ORAL, DAILY aspirin, enteric coated (ASPIRIN, ENTERIC COATED) 81 mg, ORAL, DAILY calcium-cholecalciferol, D3, (OSCAL+D 250) 250 mg-3.125 mcg (125 unit) per tablet 1 tablet, ORAL, DAILY Cetirizine (ZYRTEC) 10 mg cap ORAL denosumab (PROLIA) 60 mg, SUBCUTANEOUS, ONCE Docusate Sodium 100 mg tab 2 tablets, ORAL doxazosin mesylate (CARDURA ORAL) 6 mg, ORAL escitalopram oxalate (LEXAPRO) 20 mg, ORAL, DAILY fluticasone-vilanterol (BREO ELLIPTA) 100-25 mcg/dose inhaler 1 Inhalation , INHALATION, DAILY LUPRON DEPOT (6 MONTH) 45 mg, INTRAMUSCULAR, ONCE MULTI-VITAMIN ORAL ORAL oxybutynin XL (DITROPAN XL) 5 mg, ORAL, [address] (PROTONIX) 40 mg, ORAL, DAILY Simethicone 125 mg cap ORAL tamsulosin (FLOMAX) 0.4 mg, ORAL, DAILY, 2 daily traZODone (DESYREL) 50 mg, ORAL, AT BEDTIME Vitamin E (dl, acetate) (VITAMIN E) 400 Units, ORAL, DAILY Family History FAMILY HISTORY Problem Relation Age of Onset Colon Cancer Mother GI Mother Diabetes Mother Cancer Father Pancreatic or Liver Diabetes Father Social History Social History Tobacco Use Smoking status: Every Day Packs/day: 1.00 Years: 40.00 Total pack years: 40.00 Types: Cigarettes Passive exposure: Current Smokeless tobacco: Never Vaping Use Vaping Use: Never used Substance Use Topics Alcohol use: No Drug use: Never Comment: not asked Allergies Allergies: Chlorhexidine Rash Hibaclens [Other] Rash Review of Systems REVIEW OF SYSTEMS 1.GENERAL: No weight loss, malaise or fevers. 2.GI: No nausea, vomiting, or diarrhea 3.: See HPI Physical Exam There were no vitals taken for this visit. General: Alert, no acute distress, oriented Lungs: No respiratory distress or pursed lip breathing Psych: Affect and mood normal Abdomen: Estimated body mass index is 23.97 kg/m as calculated from the following: Height as of 09/22/22: 182.9 cm (6' 0.01 ). Weight as of 11/24/22: 80.2 kg (176 lb 12.8 oz). Labs and Pathology PSA Date Value 11/17/2022 0.49 ng/mL 09/20/2022 0.38 ng/mL 07/07/2022 0.20 ng/mL 06/02/2022 0.50 ng/mL 02/03/2014 0.17 ng/mL 11/12/2013 <0.06 07/15/2013 0.23 ng/mL 06/24/2013 0.23 ng/mL 03/28/2013 0.08 ng/mL 11/27/2012 <0.03 ng/mL 07/24/2012 <0.03 ng/mL 04/03/2012 <0.03 ng/mL PSA. (no units) Date Value 03/14/2022 0.48 12/14/2020 0.20 09/15/2017 0.15 11/10/2015 1.36 PSA, Percent Free (%) Date Value 04/03/2012 Percent free not reported when Total and/or Free PSA value is below the Imaging: MRI Prosate 08/15/22: 16cc IMPRESSION: Region of asymmetric, mildly restricted diffusion in the right mid transition zone, roughly corresponding to the area of abnormal PSMA uptake and possibly a site of recurrence. This was targeted for potential fusion biopsy. No pelvic lymphadenopathy or suspicious osseous lesion. PSMA prostate PET scan 06/02/2022: Head and neck: -No suspicious PSMA expressing neoplastic process. Chest: -No evidence of PSMA expressing neoplastic process Abdomens and Pelvis: - PSMA Avid focus in the prostatic region suspicious for neoplasm. 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 With rising PSA, PET PSMA shows evidence of local recurrence, no biopsy. Currently we are not offering HIFU as salvage treatment after EBRT. The patient would be interested in explore the option of brachytherapy. Plan: I recommend a consultation with Dr King. Manny Meza MD Urolog[facility] Staff [facility] Manny Meza MD Urologic Staff [facility] Medical Decision Making: Problems: Moderate: New problem with uncertain prognosis Data: Unique test result(s) reviewed: 1 Unique test(s) ordered: 1 Risk: Moderate: Moderate risk from testing/treatment Medical Decision Making Level: 4 - Moderate documented in this encounter [facility] 12-07-2022 Nurse Note Summary: BLADDER S CAN PATIENT PVR READING 0mL documented in this encounter [facility] 12-07-2022 Note Patient Outreach (UR OLMN) JM BARROW ([id number]) 1945 M Date Time Provider Department 12/07/22 MANNY MEZA UROARLENEN During your visit today, we recorded the following information about you: Allergies As of Date: 12/07/2022 Noted Allergy Reaction CHLORHEXIDINE 05/21/2013 2 - Rash hibaclens [Other] 06/02/2011 2 - Rash Date Reviewed: 12/07/2022 Reviewed by: Ina Christianson MA - Fully Assessed Visit Diagnosis:Screening for genitourinary condition [Z13.89] Order(s):URINALYSIS, REFLEX MICROSCOPIC [[id number]] Order #: [id number]. #:[id number] Prescriptions as of 12/12/2022 - pantoprazole DR (PROTONIX) 40 mg tablet Take 40 mg by mouth once daily. - fluticasone-vilanterol (BREO ELLIPTA) 100-25 mcg/dose inhaler Inhale 1 Inhalation as instructed once daily. - oxybutynin XL (DITROPAN XL) 5 mg 24 hr tablet Take 5 mg by mouth twice daily. - escitalopram oxalate (LEXAPRO) 20 mg tablet Take 20 mg by mouth once daily. - doxazosin mesylate (CARDURA ORAL) Take 6 mg by mouth. - calcium-cholecalciferol, D3, (OSCAL+D 250) 250 mg-3.125 mcg (125 unit) per tablet Take 1 tablet by mouth once daily. - ascorbic acid, vitamin C, (VITAMIN C) 500 mg tablet Take 500 mg by mouth once daily. - MULTI-VITAMIN ORAL Take by mouth. - traZODone (DESYREL) 50 mg tablet Take 50 mg by mouth daily at bedtime. - tamsulosin (FLOMAX) 0.4 mg Take 0.4 mg by mouth once daily. 2 daily - Vitamin E, dl, acetate, (VITAMIN E) 400 unit capsule Take 400 Units by mouth once daily. - Simethicone 125 mg cap Take by mouth. - aspirin, enteric coated (ASPIRIN, ENTERIC COATED) 81 mg EC tablet Take 81 mg by mouth once daily. - Docusate Sodium 100 mg tab Take 2 tablets by mouth. - Cetirizine (ZYRTEC) 10 mg cap Take by mouth. - denosumab (PROLIA) 60 mg/mL Inject 60 mg subcutaneously one time only. - leuprolide, 6 month, (LUPRON DEPOT, 6 MONTH,) sykt IM syringe kit Inject 45 mg intramuscularly one time only. 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 Author Type: Physician Type: Progress Notes Filed: 11/24/2022 2:52 PM Note Text: Radiation Oncology - Follow Up Note PATIENT NAME: Jm Barrow PATIENT DIAGNOSIS: 1. Prostate cancer, node positive, prior pelvic and prostate radiation 2000. With PSA recurrence on ADT with recent rising PSA and PET positive finding of the prostate 2. Bladder cancer, carcinoma in situ diagnosed 2016 status post BCG with development of recurrent low-grade bladder cancer 2021 status post TUR undergoing surveillance. INTERVAL HISTORY: Doing well. Recently found to have bladder stones and is due to undergo Cystoscopy and lithotripsy in December. Prostate MRI 08/15/2022: IMPRESSION: Region of asymmetric, mildly restricted diffusion in the right mid transition zone, roughly corresponding to the area of abnormal PSMA uptake and possibly a site of recurrence. This was targeted for potential fusion biopsy. No pelvic lymphadenopathy or suspicious osseous lesion. PSMA prostate PET scan 06/02/2022: Head and neck: -No suspicious PSMA expressing neoplastic process. Chest: -No evidence of PSMA expressing neoplastic process Abdomens and Pelvis: - PSMA Avid focus in the prostatic region suspicious for neoplasm. Bones and soft tissues: - No evidence of PSMA expressing neoplastic process PSA HISTORY: PSA Date Value 11/17/2022 0.49 ng/mL 09/20/2022 0.38 ng/mL 07/07/2022 0.20 ng/mL 06/02/2022 0.50 ng/mL 02/03/2014 0.17 ng/mL 11/12/2013 <0.06 07/15/2013 0.23 ng/mL 06/24/2013 0.23 ng/mL PSA. (no units) Date Value 03/14/2022 0.48 12/14/2020 0.20 09/15/2017 0.15 11/10/2015 1.36 PSA 0.19 01/15/2020 PSA 0.16 11/12/2019 PSA 0.14 10/23/2018 PSA 0.18 04/20/2018 PSA 0.15 09/15/2017 Latest Reference Range AND Units 06/02/22 13:12 Testosterone 193 - 824 ng/dL <12 (L) (L): Data is abnormally low ALLERGIES: ALLERGIES Allergen Reactions Chlorhexidine Rash Hibaclens [Other] Rash MEDICATIONS: pantoprazole DR (PROTONIX) 40 mg tablet Take 40 mg by mouth once daily. fluticasone-vilanterol (BREO ELLIPTA) 100-25 mcg/dose inhaler Inhale 1 Inhalation as instructed once daily. oxybutynin XL (DITROPAN XL) 5 mg 24 hr tablet Take 5 mg by mouth twice daily. escitalopram oxalate (LEXAPRO) 20 mg tablet Take 20 mg by mouth once daily. doxazosin mesylate (CARDURA ORAL) Take 6 mg by mouth. calcium-cholecalciferol, D3, (OSCAL+D 250) 250 mg-3.125 mcg (125 unit) per tablet Take 1 tablet by mouth once daily. ascorbic acid, vitamin C, (VITAMIN C) 500 mg tablet Take 500 mg by mouth once daily. MULTI-VITAMIN ORAL Take by mouth. traZODone (DESYREL) 50 mg tablet Take 50 mg by mouth daily at bedtime. tamsulosin (FLOMAX) 0.4 mg Take 0.4 mg by mouth once daily. 2 daily Vitamin E, dl, acetate, (VITAMIN E) 400 unit capsule Take 400 Units by mouth once daily. Simethicone 125 mg cap Take by mouth. aspirin, enteric coated (ASPIRIN, ENTERIC COATED) 81 mg EC tablet Take 81 mg by mouth once daily. Docusate Sodium 100 mg tab Take 2 tablets by mouth. Cetirizine (ZYRTEC) 10 mg cap Take by mouth. denosumab (PROLIA) 60 mg/mL Inject 60 mg subcutaneously one time only. leuprolide, 6 month, (LUPRON DEPOT, 6 MONTH,) sykt IM syringe kit Inject 45 mg intramuscularly one time only. PERTINENT REVIEW OF SYSTEMS: Hematuria: none Dysuria: none Incontinence: none Urgency:mild Catheter use: none Medications to aid urination: Yes Bowel movement frequency: 1-3/day Bowel movement quality: normal Blood per rectum: none lupron restarted 01/29 PHYSICAL EXAM: 11/24/22 1338 11/24/22 1339 BP: 127/71 111/70 BP Position: Sitting Standing Pulse: 69 63 Resp: 18 Temp: 36.1 ?C (97 ?F) TempSrc: Temporal SpO2: 97% Weight: 80.2 kg (176 lb 12.8 oz) KPS: 100 General appearance: Alert and oriented. No acute distress. Skin: Skin color, texture, turgor normal, no suspicious rashes or lesions. ASSESSMENT/PLAN: 1. Bladder cancer. doing well without evidence of recurrence has continued follow-up with Dr. Shaw. 2 Prostate cancer [place] 8, node positive with prior treatment including pelvic radiation as well as androgen ablative therapy, radiation completed 2000. Lupron restarted January 2017 due to PSA relapse continues on ADT Patient has apparent localized castrate resistant recurrence. He underwent trial of enzalutamide however intolerance due to development of hypotension. Currently off of antiandrogen. We discussed potential role of focal therapy given no other sites of disease on PET and rising PSA. Patient does want to pursue opinion we discussed both brachytherapy and brachytherapy options. He wants to pursue brachytherapy options to see if this is feasible for him. We will set him up for consult regarding this. I am not sure how well he is a candidate for HIFU it is likely he would be candidate for br (more content not included)... [facility] 11-24-2022 History of Presen t illness Narrative Images from the original note were not included. Radiation Oncology - Follow Up Note PATIENT NAME: Jm Barrow PATIENT DIAGNOSIS: 1. Prostate cancer, node positive, prior pelvic and prostate radiation 2000. With PSA recurrence on ADT with recent rising PSA and PET positive finding of the prostate 2. Bladder cancer, carcinoma in situ diagnosed 2016 status post BCG with development of recurrent low-grade bladder cancer 2021 status post TUR undergoing surveillance. INTERVAL HISTORY: Doing well. Recently found to have bladder stones and is due to undergo Cystoscopy and lithotripsy in December. Prostate MRI 08/15/2022: IMPRESSION: Region of asymmetric, mildly restricted diffusion in the right mid transition zone, roughly corresponding to the area of abnormal PSMA uptake and possibly a site of recurrence. This was targeted for potential fusion biopsy. No pelvic lymphadenopathy or suspicious osseous lesion. PSMA prostate PET scan 06/02/2022: Head and neck: -No suspicious PSMA expressing neoplastic process. Chest: -No evidence of PSMA expressing neoplastic process Abdomens and Pelvis: - PSMA Avid focus in the prostatic region suspicious for neoplasm. Bones and soft tissues: - No evidence of PSMA expressing neoplastic process PSA HISTORY: PSA Date Value 11/17/2022 0.49 ng/mL 09/20/2022 0.38 ng/mL 07/07/2022 0.20 ng/mL 06/02/2022 0.50 ng/mL 02/03/2014 0.17 ng/mL 11/12/2013 <0.06 07/15/2013 0.23 ng/mL 06/24/2013 0.23 ng/mL PSA. (no units) Date Value 03/14/2022 0.48 12/14/2020 0.20 09/15/2017 0.15 11/10/2015 1.36 PSA 0.19 01/15/2020 PSA 0.16 11/12/2019 PSA 0.14 10/23/2018 PSA 0.18 04/20/2018 PSA 0.15 09/15/2017 Latest Reference Range & Units 06/02/22 13:12 Testosterone 193 - 824 ng/dL <12 (L) (L): Data is abnormally low ALLERGIES: ALLERGIES Allergen Reactions Chlorhexidine Rash Hibaclens [Other] Rash MEDICATIONS: pantoprazole DR (PROTONIX) 40 mg tablet Take 40 mg by mouth once daily. fluticasone-vilanterol (BREO ELLIPTA) 100-25 mcg/dose inhaler Inhale 1 Inhalation as instructed once daily. oxybutynin XL (DITROPAN XL) 5 mg 24 hr tablet Take 5 mg by mouth twice daily. escitalopram oxalate (LEXAPRO) 20 mg tablet Take 20 mg by mouth once daily. doxazosin mesylate (CARDURA ORAL) Take 6 mg by mouth. calcium-cholecalciferol, D3, (OSCAL+D 250) 250 mg-3.125 mcg (125 unit) per tablet Take 1 tablet by mouth once daily. ascorbic acid, vitamin C, (VITAMIN C) 500 mg tablet Take 500 mg by mouth once daily. MULTI-VITAMIN ORAL Take by mouth. traZODone (DESYREL) 50 mg tablet Take 50 mg by mouth daily at bedtime. tamsulosin (FLOMAX) 0.4 mg Take 0.4 mg by mouth once daily. 2 daily Vitamin E, dl, acetate, (VITAMIN E) 400 unit capsule Take 400 Units by mouth once daily. Simethicone 125 mg cap Take by mouth. aspirin, enteric coated (ASPIRIN, ENTERIC COATED) 81 mg EC tablet Take 81 mg by mouth once daily. Docusate Sodium 100 mg tab Take 2 tablets by mouth. Cetirizine (ZYRTEC) 10 mg cap Take by mouth. denosumab (PROLIA) 60 mg/mL Inject 60 mg subcutaneously one time only. leuprolide, 6 month, (LUPRON DEPOT, 6 MONTH,) sykt IM syringe kit Inject 45 mg intramuscularly one time only. PERTINENT REVIEW OF SYSTEMS: Hematuria: none Dysuria: none Incontinence: none Urgency:mild Catheter use: none Medications to aid urination: Yes Bowel movement frequency: 1-3/day Bowel movement quality: normal Blood per rectum: none lupron restarted 01/29 PHYSICAL EXAM: 11/24/22 1338 11/24/22 1339 BP: 127/71 111/70 BP Position: Sitting Standing Pulse: 69 63 Resp: 18 Temp: 36.1 C (97 F) TempSrc: Temporal SpO2: 97% Weight: 80.2 kg (176 lb 12.8 oz) KPS: 100 General appearance: Alert and oriented. No acute distress. Skin: Skin color, texture, turgor normal, no suspicious rashes or lesions. ASSESSMENT/PLAN: 1. Bladder cancer. doing well without evidence of recurrence has continued follow-up with Dr. Shaw. 2 Prostate cancer Kita 8, node positive with prior treatment including pelvic radiation as well as androgen ablative therapy, radiation completed 2000. Lupron restarted January 2017 due to PSA relapse continues on ADT Patient has apparent localized castrate resistant recurrence. He underwent trial of enzalutamide however intolerance due to development of hypotension. Currently off of antiandrogen. We discussed potential role of focal therapy given no other sites of disease on PET and rising PSA. Patient does want to pursue opinion we discussed both brachytherapy and brachytherapy options. He wants to pursue brachytherapy options to see if this is feasible for him. We will set him up for consult regarding this. I am not sure how well he is a candidate for HIFU it is likely he would be candidate for brachytherapy. Signed by: Ace Guzman MD cc: Arline Orosco MD [address] [place] [id number] [address] Broussard. Portions of the above note extracted and edited from previous visit as well as active information included in the EMR. documented in this encounter [facility] 09-22-2022 Note HNO ID: [id number] Author: Jose Francisco Broussard MD Service: ? Author Type: Physician Type: Progress Notes Filed: 09/23/2022 7:25 AM Note Text: PATIENT NAME: Jm Barrow DATE: 09/22/2022 PRIMARY CARE PHYSICIAN: Arline Orosco MD OTHER PHYSICIANS: Dr. Guzman, Dr. Leroy Shaw, Dr. Guzman, Dr. Higgins Portions of this encounter note have been copied from my note from 07/07/2022 and has been updated where appropriate, and reflect my current medical decision making from today. CC: This is a 76 year old male with recurrent prostate cancer, seen for scheduled follow-up. INTERIM HISTORY: Since the patient's last visit here he developed labile hypertension and worsening fatigue, felt to be possible side effects of enzalutamide. The patient subsequently discontinued enzalutamide 07/13/2022. Since then he has felt somewhat better, but blood pressure continues to fluctuate. He currently is on multiple medications managed by Dr. Gifford. Ongoing weakness persists. He has had no other medical changes. He was recently seen by Dr. Guzman for local treatment recommendations, including brachytherapy, cryotherapy, and HIFU. The patient has not yet decided which treatment he prefers. MEDICATIONS: Current Outpatient Medications Medication Sig irbesartan (AVAPRO) 300 mg tablet Take 300 mg by mouth once daily. cloNIDine HCl (CATAPRES) 0.1 mg tablet Take 0.1 mg by mouth twice daily. Prn systolic >160 metoprolol succinate ER (TOPROL XL) 25 mg 24 hr tablet Take 25 mg by mouth once daily. pantoprazole DR (PROTONIX) 40 mg tablet Take 40 mg by mouth once daily. fluticasone-vilanterol (BREO ELLIPTA) 100-25 mcg/dose inhaler Inhale 1 Inhalation as instructed once daily. oxybutynin XL (DITROPAN XL) 5 mg 24 hr tablet Take 5 mg by mouth twice daily. escitalopram oxalate (LEXAPRO) 20 mg tablet Take 20 mg by mouth once daily. doxazosin mesylate (CARDURA ORAL) Take 6 mg by mouth. hydroCHLOROthiazide (HYDRODIURIL, ESIDRIX) 25 mg tablet Take 25 mg by mouth once daily. calcium-cholecalciferol, D3, (OSCAL+D 250) 250 mg-3.125 mcg (125 unit) per tablet Take 1 tablet by mouth once daily. ascorbic acid, vitamin C, (VITAMIN C) 500 mg tablet Take 500 mg by mouth once daily. MULTI-VITAMIN ORAL Take by mouth. traZODone (DESYREL) 50 mg tablet Take 50 mg by mouth daily at bedtime. tamsulosin (FLOMAX) 0.4 mg Take 0.4 mg by mouth once daily. 2 daily Vitamin E, dl, acetate, (VITAMIN E) 400 unit capsule Take 400 Units by mouth once daily. Simethicone 125 mg cap Take by mouth. aspirin, enteric coated (ASPIRIN, ENTERIC COATED) 81 mg EC tablet Take 81 mg by mouth once daily. naproxen sodium (ANAPROX) 220 mg tablet Take 220 mg by mouth twice daily with meals. Docusate Sodium 100 mg tab Take 2 tablets by mouth. Cetirizine (ZYRTEC) 10 mg cap Take by mouth. denosumab (PROLIA) 60 mg/mL Inject 60 mg subcutaneously one time only. leuprolide, 6 month, (LUPRON DEPOT, 6 MONTH,) sykt IM syringe kit Inject 45 mg intramuscularly one time only. No current facility-administered medications for this visit. ALLERGIES: ALLERGIES Allergen Reactions Chlorhexidine Rash Hibaclens [Other] Rash PAST MEDICAL HISTORY: PAST MEDICAL HISTORY Diagnosis Date BPH (benign prostatic hyperplasia) Diplopia Hypertension Prostate cancer (HCC) Pseudophakia of both eyes Strabismus Wears glasses PAST SURGICAL HISTORY: PAST SURGICAL HISTORY Procedure Laterality Date APPENDECTOMY COLONOSCOPY 11/18/2019 EYE MUSCLE SURG PROC UNLISTED Right 07/05/2021 07/05/2021 - Lorenzo Archuleta MD - Recess right superior rectus by 4 mm HERNIA REPAIR HX REMOVE CATARACT, INSERT LENS,EX Bilateral 06/2019 Dr. Grimm [facility], [place] TONSILLECTOMY HX FAMILY HISTORY: FAMILY HISTORY Problem Relation Age of Onset Colon Cancer Mother GI Mother Diabetes Mother Cancer Father Pancreatic or Liver Diabetes Father SOCIAL HISTORY: Social History Tobacco Use Smoking status: Every Day Packs/day: 1.00 Years: 40.00 Pack years: 40.00 Types: Cigarettes Passive exposure: Current Smokeless tobacco: Never Vaping Use Vaping Use: Never used Substance Use Topics Alcohol use: No Drug use: Never Comment: not asked COMPLETE REVIEW OF SYSTEMS: CONSTITUTION: Negative for pain, fatigue, weight loss, or appetite loss. EENT: Negative for mouth soreness, antibiotics use, epistaxis, visual problems, neck or facial swelling, fever/chills, bleeding gums, or hearing loss. CV: Negative for edema, calf swelling, palpitations, or chest pain. RESPIRATORY: Negative for cough, SOB, hemoptysis, or wheezing. GI: Negative for nausea/vomiting, heartburn, vomiting blood, dysphasia, diarrhea, blood in stool, constipation, early satiety, PICA, vegetarian, poor nutrition, abdominal fullness, or abdominal pain. NEUROLOGICAL: Negative for numbness/tingling, dizziness, gait disturbance, headache, speech disturbance, tremo (more content not included)... [facility] 09-22-2022 History of Presen t illness Narrative PATIENT NAME: Jm Barrow DATE: 09/22/2022 PRIMARY CARE PHYSICIAN: Arline Orosco MD OTHER PHYSICIANS: Dr. Guzman, Dr. Leroy Shaw, Dr. Guzman, Dr. Higgins Portions of this encounter note have been copied from my note from 07/07/2022 and has been updated where appropriate, and reflect my current medical decision making from today. CC: This is a 76 year old male with recurrent prostate cancer, seen for scheduled follow-up. INTERIM HISTORY: Since the patient's last visit here he developed labile hypertension and worsening fatigue, felt to be possible side effects of enzalutamide. The patient subsequently discontinued enzalutamide 07/13/2022. Since then he has felt somewhat better, but blood pressure continues to fluctuate. He currently is on multiple medications managed by Dr. Gifford. Ongoing weakness persists. He has had no other medical changes. He was recently seen by Dr. Guzman for local treatment recommendations, including brachytherapy, cryotherapy, and HIFU. The patient has not yet decided which treatment he prefers. MEDICATIONS: Current Outpatient Medications Medication Sig irbesartan (AVAPRO) 300 mg tablet Take 300 mg by mouth once daily. cloNIDine HCl (CATAPRES) 0.1 mg tablet Take 0.1 mg by mouth twice daily. Prn systolic >160 metoprolol succinate ER (TOPROL XL) 25 mg 24 hr tablet Take 25 mg by mouth once daily. pantoprazole DR (PROTONIX) 40 mg tablet Take 40 mg by mouth once daily. fluticasone-vilanterol (BREO ELLIPTA) 100-25 mcg/dose inhaler Inhale 1 Inhalation as instructed once daily. oxybutynin XL (DITROPAN XL) 5 mg 24 hr tablet Take 5 mg by mouth twice daily. escitalopram oxalate (LEXAPRO) 20 mg tablet Take 20 mg by mouth once daily. doxazosin mesylate (CARDURA ORAL) Take 6 mg by mouth. hydroCHLOROthiazide (HYDRODIURIL, ESIDRIX) 25 mg tablet Take 25 mg by mouth once daily. calcium-cholecalciferol, D3, (OSCAL+D 250) 250 mg-3.125 mcg (125 unit) per tablet Take 1 tablet by mouth once daily. ascorbic acid, vitamin C, (VITAMIN C) 500 mg tablet Take 500 mg by mouth once daily. MULTI-VITAMIN ORAL Take by mouth. traZODone (DESYREL) 50 mg tablet Take 50 mg by mouth daily at bedtime. tamsulosin (FLOMAX) 0.4 mg Take 0.4 mg by mouth once daily. 2 daily Vitamin E, dl, acetate, (VITAMIN E) 400 unit capsule Take 400 Units by mouth once daily. Simethicone 125 mg cap Take by mouth. aspirin, enteric coated (ASPIRIN, ENTERIC COATED) 81 mg EC tablet Take 81 mg by mouth once daily. naproxen sodium (ANAPROX) 220 mg tablet Take 220 mg by mouth twice daily with meals. Docusate Sodium 100 mg tab Take 2 tablets by mouth. Cetirizine (ZYRTEC) 10 mg cap Take by mouth. denosumab (PROLIA) 60 mg/mL Inject 60 mg subcutaneously one time only. leuprolide, 6 month, (LUPRON DEPOT, 6 MONTH,) sykt IM syringe kit Inject 45 mg intramuscularly one time only. No current facility-administered medications for this visit. ALLERGIES: ALLERGIES Allergen Reactions Chlorhexidine Rash Hibaclens [Other] Rash PAST MEDICAL HISTORY: PAST MEDICAL HISTORY Diagnosis Date BPH (benign prostatic hyperplasia) Diplopia Hypertension Prostate cancer (HCC) Pseudophakia of both eyes Strabismus Wears glasses PAST SURGICAL HISTORY: PAST SURGICAL HISTORY Procedure Laterality Date APPENDECTOMY COLONOSCOPY 11/18/2019 EYE MUSCLE SURG PROC UNLISTED Right 07/05/2021 07/05/2021 - Lorenzo Archuleta MD - Recess right superior rectus by 4 mm HERNIA REPAIR HX REMOVE CATARACT, INSERT LENS,EX Bilateral 06/2019 Dr. Grimm [place], [place] TONSILLECTOMY HX FAMILY HISTORY: FAMILY HISTORY Problem Relation Age of Onset Colon Cancer Mother GI Mother Diabetes Mother Cancer Father Pancreatic or Liver Diabetes Father SOCIAL HISTORY: Social History Tobacco Use Smoking status: Every Day Packs/day: 1.00 Years: 40.00 Pack years: 40.00 Types: Cigarettes Passive exposure: Current Smokeless tobacco: Never Vaping Use Vaping Use: Never used Substance Use Topics Alcohol use: No Drug use: Never Comment: not asked COMPLETE REVIEW OF SYSTEMS: CONSTITUTION: Negative for pain, fatigue, weight loss, or appetite loss. EENT: Negative for mouth soreness, antibiotics use, epistaxis, visual problems, neck or facial swelling, fever/chills, bleeding gums, or hearing loss. CV: Negative for edema, calf swelling, palpitations, or chest pain. RESPIRATORY: Negative for cough, SOB, hemoptysis, or wheezing. GI: Negative for nausea/vomiting, heartburn, vomiting blood, dysphasia, diarrhea, blood in stool, constipation, early satiety, PICA, vegetarian, poor nutrition, abdominal fullness, or abdominal pain. NEUROLOGICAL: Negative for numbness/tingling, dizziness, gait disturbance, headache, speech disturbance, tremor, hemiparesis/sensory loss, or change in mental status. MUSCULOSKELETAL: Negative for joint pain, joint swelling, or proximal muscle weakness. SKIN: Negative for hair loss, bruising, nail changes, rash, itching, pallor, or jaundice. ENDO/URO: Negative for hot flashes, cold or heat intolerance, urinary frequency, urinary hesitancy, menorrhagia, or hematuria. PSYCH: Negative for anxiety, depression, or other. PHYSICAL EXAM: BP (!) 92/49 Pulse 79 Temp 36.3 C (97.4 F) (Temporal) Resp 16 Ht 182.9 cm (6' 0.01 ) Wt 79 kg (174 lb 3.2 oz) SpO2 94% BMI 23.62 kg/m GENERAL EXAM: Well developed/well nourished; in no acute distress. SKIN: Negative for lesions, rashes, or ulcers on the upper and lower extremities and face. Negative for palpations/nodules, purpura, and ecchymosis. EENT: Negative for conjunctiva, mucosal pallor, JVD, LAP, thyromegaly, and glossitis. Supple & PERRL. EXTREMITIES: Negative for cyanosis, clubbing, and crepitus. LUNGS: Negative to auscultation, respiratory effort, and percussion. CARDIOVASCULAR: Regular rate. Negative for murmurs/S3S4/abnormal sounds, edema, and carotid bruits. ABDOMEN: Negative for masses, hernia, and spleen/liver abnormalities. RECTAL: Not done PSYCHIATRIC: Negative for mood/affect changes, recent & remote memory changes, and judgement and insight. NEUROLOGICAL: Alert, oriented x person, place, time. Cranial nerves 2-12 intact. Sensory for pain, light touch, vibration intact on all 4 extremities. Reflexes symmetric for biceps/brachioradial/patella/ach illes. MUSCULOSKELETAL: Negative examination of joints, bones, muscles/tendons of all four extremities for inspection, percussion, and palpation. Negative for misallignment, asymmetry, crepitation, tenderness, mass, effusions. Range of motion normal. Negative for joint instability, laxity, dislocation. Gait steady. Negative for swelling, erythema, tenderness, soft tissue swelling, and atrophy. PATHOLOGY: 02/14/2000 Pelvic [place] node [place] Doug Regalado) Metastatic prostate adenocarcinoma involving 1 of 3 lymph nodes (right obturator LN) 01/20/2000 TRUS prostate biopsy ([facility]) Prostate adenocarcinoma, Kita composite score 8 LABS: Hemoglobin (g/dL) Date Value 09/20/2022 14.4 06/24/2013 14.1 Hematocrit (%) Date Value 09/20/2022 42.2 06/24/2013 39.9 WBC (k/uL) Date Value 09/20/2022 6.68 06/24/2013 7.37 Platelet Count (k/uL) Date Value 09/20/2022 236 06/24/2013 226 PSA 12/14/2020 0.20 03/14/2022 0.48 06/02/2022 0.50 07/07/2022 0.20 09/20/2022 0.38 RADIOLOGY/OTHER STUDIES: 08/15/2022 MRI prostate IMPRESSION: Region of asymmetric, mildly restricted diffusion in the right mid transition zone, roughly corresponding to the area of abnormal PSMA uptake and possibly a site of recurrence. This was targeted for potential fusion biopsy. No pelvic lymphadenopathy or suspicious osseous lesion. 06/02/2022 PSMA PET scan IMPRESSION: Head and neck: -No suspicious PSMA expressing neoplastic process. Chest: -No evidence of PSMA expressing neoplastic process Abdomens and Pelvis: - PSMA Avid focus in the prostatic region suspicious for neoplasm. Bones and soft tissues: - No evidence of PSMA expressing neoplastic process 01/15/2022 Bone density DEXA ([facility]) Osteopenia in bilateral femoral necks ASSESSMENT/PLAN: 1. Prostate cancer (HCC) - ICD9: 185, ICD10: C61 Prostate cancer diagnosed January 2000 (prostate biopsy 01/20/2000). Initial staging revealed evidence of lymph node involvement (pelvic lymph node biopsy 02/14/2000). Initial stage T3b, N1, M0; Kita 8. The patient received primary treatment with external beam radiation therapy which was completed 2000. ADT with Lupron started at the time of diagnosis and continued until July 2013. January 2017 the patient developed an increasing PSA and Lupron resumed, currently given every 6 months. Due to continued PSA increase the patient underwent a PSMA PET scan on 06/02/2022, which revealed uptake in the prostatic region, otherwise no evidence of metastases. When seen 06/20/2022 it was elected to add enzalutamide to the Lupron (enzalutamide started 06/24/2022). However, enzalutamide was poorly tolerated (hypertension, arthralgias, change in bowel habits) and was discontinued 07/13/2022. Prostate MRI 08/15/2022 revealed uptake in the right mid transition zone suspicious for recurrence. The patient was seen by Dr. Guzman 08/18/2022 to discuss local treatment options (brachytherapy, cryotherapy, HIFU) but he is undecided as to whether to proceed. Currently the patient still does not feel well (weakness, labile hypertension) which he assumes are ongoing side effects of enzalutamide. Options for management were discussed at length with the patient and his . I encouraged him to decide on which local treatment he is comfortable with, and follow-up with Dr. Guzman as scheduled. We discussed adding a different antiandrogen (e.g. Casodex) but for fear of side effects the patient elected to hold off. I will see him back in 3 months at which time he will receive his next Lupron injection. If the PSA continues to increase we will then discuss other systemic therapy options. 2. History of bladder cancer Superficial bladder cancer diagnosed Jun 2016. Status post TURBT. Status post intravesicular BCG and intravesicular gemcitabine. Most recent cystoscopy 04/19/2022 negative. Continue management per urology (Dr. Shaw). 3. 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 On Prolia 60 mg SQ every 6 months since 2019, last given May 2022 ([facility]). At the patient's request we will give Prolia at our center. Next injection on return visit in December when the patient is scheduled to receive Lupron. Will monitor bone density DEXA every 2 to 3 years. Jose Francisco Broussard MD CC: Dr. Leroy Shaw, [facility] documented in this encounter [facility] 08-25-2022 Nurse Note AUA=21 documented in this encounter [facility] 08-18-2022 Note HNO ID: [id number] Author: Ace Guzman MD Service: ? Author Type: Physician Type: Progress Notes Filed: 08/25/2022 1:52 PM Note Text: Radiation Oncology - Follow Up Note PATIENT NAME: Jm Barrow PATIENT DIAGNOSIS: Prostate cancer, node positive, prior pelvic and prostate radiation 2000. INTERVAL HISTORY: Since last visit patient underwent prostate MRI. Prostate MRI 08/15/2022: IMPRESSION: Region of asymmetric, mildly restricted diffusion in the right mid transition zone, roughly corresponding to the area of abnormal PSMA uptake and possibly a site of recurrence. This was targeted for potential fusion biopsy. No pelvic lymphadenopathy or suspicious osseous lesion. PSMA prostate PET scan 06/02/2022: Head and neck: -No suspicious PSMA expressing neoplastic process. Chest: -No evidence of PSMA expressing neoplastic process Abdomens and Pelvis: - PSMA Avid focus in the prostatic region suspicious for neoplasm. Bones and soft tissues: - No evidence of PSMA expressing neoplastic process PSA HISTORY: PSA Date Value 07/07/2022 0.20 ng/mL 06/02/2022 0.50 ng/mL 02/03/2014 0.17 ng/mL 11/12/2013 <0.06 07/15/2013 0.23 ng/mL 06/24/2013 0.23 ng/mL PSA. (no units) Date Value 03/14/2022 0.48 12/14/2020 0.20 09/15/2017 0.15 11/10/2015 1.36 PSA 0.19 01/15/2020 PSA 0.16 11/12/2019 PSA 0.14 10/23/2018 PSA 0.18 04/20/2018 PSA 0.15 09/15/2017 Latest Reference Range AND Units 06/02/22 13:12 Testosterone 193 - 824 ng/dL <12 (L) (L): Data is abnormally low ALLERGIES: ALLERGIES Allergen Reactions Chlorhexidine Rash Hibaclens [Other] Rash MEDICATIONS: irbesartan (AVAPRO) 300 mg tablet Take 300 mg by mouth once daily. cloNIDine HCl (CATAPRES) 0.1 mg tablet Take 0.1 mg by mouth twice daily. Prn systolic >160 metoprolol succinate ER (TOPROL XL) 25 mg 24 hr tablet Take 25 mg by mouth once daily. pantoprazole DR (PROTONIX) 40 mg tablet Take 40 mg by mouth once daily. fluticasone-vilanterol (BREO ELLIPTA) 100-25 mcg/dose inhaler Inhale 1 Inhalation as instructed once daily. oxybutynin XL (DITROPAN XL) 5 mg 24 hr tablet Take 5 mg by mouth twice daily. escitalopram oxalate (LEXAPRO) 20 mg tablet Take 20 mg by mouth once daily. doxazosin mesylate (CARDURA ORAL) Take 6 mg by mouth. hydroCHLOROthiazide (HYDRODIURIL, ESIDRIX) 25 mg tablet Take 25 mg by mouth once daily. calcium-cholecalciferol, D3, (OSCAL+D 250) 250 mg-3.125 mcg (125 unit) per tablet Take 1 tablet by mouth once daily. ascorbic acid, vitamin C, (VITAMIN C) 500 mg tablet Take 500 mg by mouth once daily. MULTI-VITAMIN ORAL Take by mouth. traZODone (DESYREL) 50 mg tablet Take 50 mg by mouth daily at bedtime. tamsulosin (FLOMAX) 0.4 mg Take 0.4 mg by mouth once daily. 2 daily Vitamin E, dl, acetate, (VITAMIN E) 400 unit capsule Take 400 Units by mouth once daily. Simethicone 125 mg cap Take by mouth. aspirin, enteric coated (ASPIRIN, ENTERIC COATED) 81 mg EC tablet Take 81 mg by mouth once daily. naproxen sodium (ANAPROX) 220 mg tablet Take 220 mg by mouth twice daily with meals. Docusate Sodium 100 mg tab Take 2 tablets by mouth. Cetirizine (ZYRTEC) 10 mg cap Take by mouth. denosumab (PROLIA) 60 mg/mL Inject 60 mg subcutaneously one time only. leuprolide, 6 month, (LUPRON DEPOT, 6 MONTH,) sykt IM syringe kit Inject 45 mg intramuscularly one time only. tolterodine ER (DETROL LA) 4 mg 24 hr capsule 4 mg. levoFLOXacin (LEVAQUIN) 500 mg tablet Take 500 mg by mouth once daily. enzalutamide (XTANDI) 40 mg tablet Take 4 tablets (160 mg) by mouth once daily. enzalutamide (XTANDI) 80 mg tablet Take 2 tablets (160 mg) by mouth once daily. vitamin D3-folic acid 125 mcg (5,000 unit)-1 mg tab Take by mouth. PERTINENT REVIEW OF SYSTEMS: Hematuria: none Dysuria: none Incontinence: none Urgency:mild Catheter use: none Medications to aid urination: Yes - Total AUA Score: 11 Bowel movement frequency: 1-3/day Bowel movement quality: normal Blood per rectum: none lupron restarted 01/29 PHYSICAL EXAM: 08/18/22 1309 BP: 90/54 Pulse: 61 Resp: 16 Temp: 36.7 ?C (98 ?F) SpO2: 98% Weight: 81.6 kg (179 lb 12.8 oz) KPS: 100 General appearance: Alert and oriented. No acute distress. Skin: Skin color, texture, turgor normal, no suspicious rashes or lesions. ASSESSMENT/PLAN: 1. Bladder cancer. doing well without evidence of recurrence has continued follow-up with his urologist. 2 Prostate cancer Kita 8, node positive with prior treatment including pelvic radiation as well as androgen ablative therapy, radiation completed 2000. Lupron restarted January 2017 due to PSA relapse continues on ADT Patient has an apparent localized castrate resistant recurrence. Discussed consideration of repeat biopsy of the area identified by MRI and PET. Discussed with patient options of management including continued ADT and surveillance versus addin (more content not included)... [facility] 08-15-2022 Miscellaneous Notes Radiology Service Progress Note PATIENT NAME: Jm Barrow DATE OF SERVICE: August 15, 2022 TIME: 1:43 PM PATIENT IDENTITY VERIFICATION COMPLETED USING TWO (2) IDENTIFIERS: Name and Date of confirmed by patient verbally. FALL SCREENING: Has the patient had 2 falls in the last year or 1 fall with injury or currently using an Ambulatory Assistive Device (Walker, Cane, Wheelchair, Crutches, etc.)? No PATIENT GENDER DATA: Male PATIENT RELEVANT IMPLANT DATA REVIEWED: Yes RADIOLOGY DEPARTMENT: MR; Exam(s) Completed: Body: Prostate PERIPHERAL IV DATA: Inpatient: see LDA documentation SIGNED BY: RT Alyssia(Jose) August 15, 2022 1:43 PM documented in this encounter [facility] 08-15-2022 Nurse Note Radiology Service Progress Note DATE OF SERVICE: August 15, 2022 TIME: 12:43 PM PATIENT WEIGHT: 144LBS PATIENT IDENTITY VERIFICATION COMPLETED USING TWO (2) STANDARD IDENTIFIERS: Name and Date of confirmed by patient verbally and Name and Date of confirmed by identification band. FALL SCREENING: Has the patient had 2 falls in the last year or 1 fall with injury or currently using an Ambulatory Assistive Device (Walker, Cane, Wheelchair, Crutches, etc.)? No PATIENT GENDER DATA: Male ALLERGIES: Reviewed and unchanged CONTRAST ALLERGY: No EXAM: MRI - CONTRAST TYPE: GROUP II IV SITE: Ambulatory: A peripheral IV was started in the Right with a Angio cath: 22 gauge. IV SITE APPEARANCE: Clean,Dry and Intact SIGNATURE: Keila Hsu RN PATIENT NAME: Jm Barrow DATE: August 15, 2022 TIME: 12:43 PM documented in this encounter [facility] 07-25-2022 Miscellaneous Notes I will ask Dr. Guzman to touch base with me after the MRI and his appointment. My follow-up depends on scan results and radiation/cryoablation recommendations. Okay to leave my appointment as is for now, and we can change it later if necessary. Ema Meehan Patient notified and agreeable to stop enzalutamide will have MRI on 08/15/22 and follow up with Dr. Guzman on 08/18/22. Patient does not follow up with Dr. Broussard until 09/22/22. Would you like to move that appointment up? Ronny Grimm RN Okay to hold enzalutamide for now. When he returns we will discuss other options. Ema Meehan Pt calls stating he can't take the xtandi anymore. States his blood pressure has been elevated and he went to [place] [facility] this past week for that. Pt states he was started on metoprolol and on other med that he can't remember the name of. . Barbara: please get records BRM: please advise Kiera Angelo RN documented in this encounter [facility] 07-18-2022 Note HNO ID: [id number] Author: Lola Allen OD Service: ? Author Type: DIESEL TRAILER MECHANIC Type: Progress Notes Filed: 07/18/2022 1:52 PM Note Text: ASSESSMENT/PLAN: 1. 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 Pseudophakia of both eyes - ICD9: V43.1, ICD10: Z96.1 Rx spec refinement to facilitate near Maintain habitual prism, 3. PVD (posterior vitreous detachment), both eyes - ICD9: 379.21, ICD10: H43.813 Not acute Monitor 4. Dry eye syndrome, bilateral - ICD9: 375.15, ICD10: H04.123 Artificial tears frequently Both eyes I have confirmed and edited as necessary the relevant ophthalmic history, ROS, and the exam findings as obtained by others. I have seen and examined this patient. I also have reviewed and agree with the assessment and plan as stated above and agree with all of its relevant components. Lola Allen, OD July 18, 2022 1:49 PM [facility] 07-18-2022 History of Presen t illness Narrative ASSESSMENT/PLAN: 1. 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 Pseudophakia of both eyes - ICD9: V43.1, ICD10: Z96.1 Rx spec refinement to facilitate near Maintain habitual prism, 3. PVD (posterior vitreous detachment), both eyes - ICD9: 379.21, ICD10: H43.813 Not acute Monitor 4. Dry eye syndrome, bilateral - ICD9: 375.15, ICD10: H04.123 Artificial tears frequently Both eyes I have confirmed and edited as necessary the relevant ophthalmic history, ROS, and the exam findings as obtained by others. I have seen and examined this patient. I also have reviewed and agree with the assessment and plan as stated above and agree with all of its relevant components. Lola Allen, OD July 18, 2022 1:49 PM documented in this encounter [facility] 07-13-2022 Miscellaneous Notes Pt notified and verbalizes understanding. Will call us back if his symptoms persist despite reduced dose. Umer Dale RN Thanks for the update. If you have a chance to get back to him I definitely would recommend he cut the dose in half to see how the side effects are before he stops altogether. Thanks, BRM I spoke with Jm today with the goal of obtaining some financial info for the Xtandi Free Drug program. Jm let me know that he plans to stop taking the Xtandi due to a wide range of side effects including: blood pressure issues, aches and pains, bowel issues, and feeling like he is in a fog most of the time. He asked me to pass this information on to Dr. Broussard. documented in this encounter [facility] 07-07-2022 Note HNO ID: [id number] Author: Jose Francisco Broussard MD Service: ? Author Type: Physician Type: Progress Notes Filed: 07/08/2022 8:58 AM Note Text: PATIENT NAME: Jm Barrow DATE: 07/07/2022 PRIMARY CARE PHYSICIAN: Arline Orosco MD OTHER PHYSICIANS: Dr. Guzman, Dr. Leroy Shaw, Dr. Guzman Portions of this encounter note have been copied from my note from 06/20/2022 and has been updated where appropriate, and reflect my current medical decision making from today. CC: This is a 76 year old male with recurrent prostate cancer, seen for scheduled follow-up. INTERIM HISTORY: At the patient's initial visit here it was elected to start antiandrogen therapy with enzalutamide. Starting 06/24/2022 the patient has been on enzalutamide 160 mg daily. Shortly after starting the medication his blood pressure increased somewhat, now normalized with BP medication adjustments. He had transient joint aches which have since resolved. On follow-up today he feels well with no particular complaints. No unusual pain or other systemic symptoms. No difficulties with urination. MEDICATIONS: Current Outpatient Medications Medication Sig enzalutamide (XTANDI) 40 mg tablet Take 4 tablets (160 mg) by mouth once daily. pantoprazole DR (PROTONIX) 40 mg tablet Take 40 mg by mouth once daily. enzalutamide (XTANDI) 80 mg tablet Take 2 tablets (160 mg) by mouth once daily. fluticasone-vilanterol (BREO ELLIPTA) 100-25 mcg/dose inhaler Inhale 1 Inhalation as instructed once daily. oxybutynin XL (DITROPAN XL) 5 mg 24 hr tablet Take 5 mg by mouth twice daily. escitalopram oxalate (LEXAPRO) 20 mg tablet Take 20 mg by mouth once daily. doxazosin mesylate (CARDURA ORAL) Take 0.5 mg by mouth. hydroCHLOROthiazide (HYDRODIURIL, ESIDRIX) 25 mg tablet Take 25 mg by mouth once daily. calcium-cholecalciferol, D3, (OSCAL+D 250) 250 mg-3.125 mcg (125 unit) per tablet Take 1 tablet by mouth once daily. vitamin D3-folic acid 125 mcg (5,000 unit)-1 mg tab Take by mouth. ascorbic acid, vitamin C, (VITAMIN C) 500 mg tablet Take 500 mg by mouth once daily. MULTI-VITAMIN ORAL Take by mouth. traZODone (DESYREL) 50 mg tablet Take 50 mg by mouth daily at bedtime. tamsulosin (FLOMAX) 0.4 mg Take 0.4 mg by mouth once daily. 2 daily Vitamin E, dl, acetate, (VITAMIN E) 400 unit capsule Take 400 Units by mouth once daily. Simethicone 125 mg cap Take by mouth. aspirin, enteric coated (ASPIRIN, ENTERIC COATED) 81 mg EC tablet Take 81 mg by mouth once daily. naproxen sodium (ANAPROX) 220 mg tablet Take 220 mg by mouth twice daily with meals. Docusate Sodium 100 mg tab Take 2 tablets by mouth. Cetirizine (ZYRTEC) 10 mg cap Take by mouth. denosumab (PROLIA) 60 mg/mL Inject 60 mg subcutaneously one time only. leuprolide, 6 month, (LUPRON DEPOT, 6 MONTH,) sykt IM syringe kit Inject 45 mg intramuscularly one time only. No current facility-administered medications for this visit. ALLERGIES: ALLERGIES Allergen Reactions Chlorhexidine Rash Hibaclens [Other] Rash PAST MEDICAL HISTORY: PAST MEDICAL HISTORY Diagnosis Date BPH (benign prostatic hyperplasia) Diplopia Hypertension Prostate cancer (HCC) Pseudophakia of both eyes Strabismus Wears glasses PAST SURGICAL HISTORY: PAST SURGICAL HISTORY Procedure Laterality Date APPENDECTOMY COLONOSCOPY 11/18/2019 EYE MUSCLE SURG PROC UNLISTED Right 07/05/2021 07/05/2021 - Lorenzo Archuleta MD - Recess right superior rectus by 4 mm HERNIA REPAIR HX REMOVE CATARACT, INSERT LENS,EX Bilateral 06/2019 Dr. Grimm [place], [place] TONSILLECTOMY HX FAMILY HISTORY: FAMILY HISTORY Problem Relation Age of Onset Colon Cancer Mother GI Mother Diabetes Mother Cancer Father Pancreatic or Liver Diabetes Father SOCIAL HISTORY: Social History Tobacco Use Smoking status: Every Day Packs/day: 1.00 Years: 40.00 Pack years: 40.00 Types: Cigarettes Smokeless tobacco: Never Vaping Use Vaping Use: Never used Substance Use Topics Alcohol use: No Drug use: Never Comment: not asked COMPLETE REVIEW OF SYSTEMS: CONSTITUTION: Negative for pain, fatigue, weight loss, or appetite loss. EENT: Negative for mouth soreness, antibiotics use, epistaxis, visual problems, neck or facial swelling, fever/chills, bleeding gums, or hearing loss. CV: Negative for edema, calf swelling, palpitations, or chest pain. RESPIRATORY: Negative for cough, SOB, hemoptysis, or wheezing. GI: Negative for nausea/vomiting, heartburn, vomiting blood, dysphasia, diarrhea, blood in stool, constipation, early satiety, PICA, vegetarian, poor nutrition, abdominal fullness, or abdominal pain. NEUROLOGICAL: Negative for numbness/tingling, dizziness, gait disturbance, headache, speech disturbance, tremor, hemiparesis/sensory loss, or change in mental status. MUSCULOSKELETAL: Negative for joint pain, joint swelling, or proximal muscle weakness. SKIN: Negative (more content not included)... [facility] 06-27-2022 Miscellaneous Notes Thanks. GARRETT Jm has decided to move forward with the Xtandi, he received his 14 day free trial on 06/24/22. I was able to secure a ronda that will cover next month and we will pursue free drug following that. He will complete the application when he comes in for his 07/07/22 appt. Matthias Patel rPh documented in this encounter [facility] 06-22-2022 Miscellaneous Notes Thanks, order signed. 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 Clerical: Please call and offer pt an education appointment. Can be in person or over the phone. Umer Dale RN Call placed to Jm to let him know that the prior authorization for his Xtandi 80 mg tablets was approved, but the cost is still over $3000.00 for the first fill and it would go down to apx $600.00 per month there after. I offered to apply for a ronda for coverage, but Jm said based on discussion with Dr Broussard that he was not certain that the addition of Xtandi would make that much of a difference with his numbers. He did not want to take a ronda away from a patient that could possibly benefit more from the medication. I offered him a 15 day free trial and he is agreeable to this and then we can go from there after seeing how he tolerates the Xtandi. I am pending a 15 day script to be sent to the providing pharmacy, if you agreeable with this plan. 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 Rx Plan: Other: [facility]: Xtandi Cover My Meds Torres: [id number] Determination: Approved Prior Authorization/Case #: [id number] Prior Authorization Expiration: 06/21/2023 Time to PA Submission in CMM: 15 min Time to PA Determination in CMM: Same day Additional Information: $3,107.12 - will need to reach out to patient For questions relating to this submission, please contact [facility] at [phone] documented in this encounter [facility] 06-20-2022 Note HNO ID: [id number] Author: Jose Francisco Broussard MD Service: ? Author Type: Physician Type: Progress Notes Filed: 06/22/2022 8:03 AM Note Text: PATIENT NAME: Jm Barrow DATE: 06/20/2022 PRIMARY CARE PHYSICIAN: Arline Orosco MD OTHER PHYSICIANS: Dr. Guzman, Dr. Leroy Shaw, Dr. Guzman HPI: This is a 76 year old male referred for evaluation and treatment of recently diagnosed recurrent prostate cancer. Fatigue LUTS beter eith Ditopan and Flomax Hip pain MEDICATIONS: Current Outpatient Medications Medication Sig fluticasone-vilanterol (BREO ELLIPTA) 100-25 mcg/dose inhaler Inhale 1 Inhalation as instructed once daily. oxybutynin XL (DITROPAN XL) 5 mg 24 hr tablet Take 5 mg by mouth twice daily. escitalopram oxalate (LEXAPRO) 20 mg tablet Take 20 mg by mouth once daily. doxazosin mesylate (CARDURA ORAL) Take 0.5 mg by mouth. hydroCHLOROthiazide (HYDRODIURIL, ESIDRIX) 25 mg tablet Take 25 mg by mouth once daily. calcium-cholecalciferol, D3, (OSCAL+D 250) 250 mg-3.125 mcg (125 unit) per tablet Take 1 tablet by mouth once daily. vitamin D3-folic acid 125 mcg (5,000 unit)-1 mg tab Take by mouth. ascorbic acid, vitamin C, (VITAMIN C) 500 mg tablet Take 500 mg by mouth once daily. MULTI-VITAMIN ORAL Take by mouth. traZODone (DESYREL) 50 mg tablet Take 50 mg by mouth daily at bedtime. tamsulosin (FLOMAX) 0.4 mg Take 0.4 mg by mouth once daily. 2 daily Vitamin E, dl, acetate, (VITAMIN E) 400 unit capsule Take 400 Units by mouth once daily. Simethicone 125 mg cap Take by mouth. aspirin, enteric coated (ASPIRIN, ENTERIC COATED) 81 mg EC tablet Take 81 mg by mouth once daily. naproxen sodium (ANAPROX) 220 mg tablet Take 220 mg by mouth twice daily with meals. Docusate Sodium 100 mg tab Take 2 tablets by mouth. Cetirizine (ZYRTEC) 10 mg cap Take by mouth. denosumab (PROLIA) 60 mg/mL Inject 60 mg subcutaneously one time only. leuprolide, 6 month, (LUPRON DEPOT, 6 MONTH,) sykt IM syringe kit Inject 45 mg intramuscularly one time only. No current facility-administered medications for this visit. ALLERGIES: ALLERGIES Allergen Reactions Chlorhexidine Rash Hibaclens [Other] Rash PAST MEDICAL HISTORY: PAST MEDICAL HISTORY Diagnosis Date BPH (benign prostatic hyperplasia) Diplopia Hypertension Prostate cancer (HCC) Pseudophakia of both eyes Strabismus Wears glasses PAST SURGICAL HISTORY: PAST SURGICAL HISTORY Procedure Laterality Date APPENDECTOMY COLONOSCOPY 11/18/2019 EYE MUSCLE SURG PROC UNLISTED Right 07/05/2021 07/05/2021 - Lorenzo Archuleta MD - Recess right superior rectus by 4 mm HERNIA REPAIR HX REMOVE CATARACT, INSERT LENS,EX Bilateral 06/2019 Dr. Grimm [facility], [place] TONSILLECTOMY HX FAMILY HISTORY: FAMILY HISTORY Problem Relation Age of Onset Colon Cancer Mother GI Mother Diabetes Mother Cancer Father Pancreatic or Liver Diabetes Father SOCIAL HISTORY: Social History Tobacco Use Smoking status: Every Day Packs/day: 1.00 Years: 40.00 Pack years: 40.00 Types: Cigarettes Smokeless tobacco: Never Vaping Use Vaping Use: Never used Substance Use Topics Alcohol use: No Drug use: Never Comment: not asked COMPLETE REVIEW OF SYSTEMS: CONSTITUTION: Negative for pain, fatigue, weight loss, or appetite loss. EENT: Negative for mouth soreness, antibiotics use, epistaxis, visual problems, neck or facial swelling, fever/chills, bleeding gums, or hearing loss. CV: Negative for edema, calf swelling, palpitations, or chest pain. RESPIRATORY: Negative for cough, SOB, hemoptysis, or wheezing. GI: Negative for nausea/vomiting, heartburn, vomiting blood, dysphasia, diarrhea, blood in stool, constipation, early satiety, PICA, vegetarian, poor nutrition, abdominal fullness, or abdominal pain. NEUROLOGICAL: Negative for numbness/tingling, dizziness, gait disturbance, headache, speech disturbance, tremor, hemiparesis/sensory loss, or change in mental status. MUSCULOSKELETAL: Negative for joint pain, joint swelling, or proximal muscle weakness. SKIN: Negative for hair loss, bruising, nail changes, rash, itching, pallor, or jaundice. ENDO/URO: Negative for hot flashes, cold or heat intolerance, urinary frequency, urinary hesitancy, menorrhagia, or hematuria. PSYCH: Negative for anxiety, depression, or other. PHYSICAL EXAM: BP 143/88 Pulse 70 Temp 36.1 ?C (97 ?F) (Temporal) Resp 16 Wt 80.9 kg (178 lb 6.4 oz) SpO2 98% BMI 24.20 kg/m? GENERAL EXAM: Well developed/well nourished; in no acute distress. SKIN: Negative for lesions, rashes, or ulcers on the upper and lower extremities and face. Negative for palpations/nodules, purpura, and ecchymosis. EENT: Negative for conjunctiva, mucosal pallor, JVD, LAP, thyromegaly, and glossitis. Supple AND PERRL. EXTREMITIES: Negative for cyanosis, clubbing, and crepitus. LUNGS: Negative to auscultation, respiratory effort, and percussi (more content not included)... [facility] 06-20-2022 History of Presen t illness Narrative PATIENT NAME: Jm Barrow DATE: 06/20/2022 PRIMARY CARE PHYSICIAN: Arline Orosco MD OTHER PHYSICIANS: Dr. Guzman, Dr. Leroy Shaw, Dr. Guzman HPI: This is a 76 year old male referred for evaluation and treatment of recently diagnosed recurrent prostate cancer. Fatigue LUTS beter eith Ditopan and Flomax Hip pain MEDICATIONS: Current Outpatient Medications Medication Sig fluticasone-vilanterol (BREO ELLIPTA) 100-25 mcg/dose inhaler Inhale 1 Inhalation as instructed once daily. oxybutynin XL (DITROPAN XL) 5 mg 24 hr tablet Take 5 mg by mouth twice daily. escitalopram oxalate (LEXAPRO) 20 mg tablet Take 20 mg by mouth once daily. doxazosin mesylate (CARDURA ORAL) Take 0.5 mg by mouth. hydroCHLOROthiazide (HYDRODIURIL, ESIDRIX) 25 mg tablet Take 25 mg by mouth once daily. calcium-cholecalciferol, D3, (OSCAL+D 250) 250 mg-3.125 mcg (125 unit) per tablet Take 1 tablet by mouth once daily. vitamin D3-folic acid 125 mcg (5,000 unit)-1 mg tab Take by mouth. ascorbic acid, vitamin C, (VITAMIN C) 500 mg tablet Take 500 mg by mouth once daily. MULTI-VITAMIN ORAL Take by mouth. traZODone (DESYREL) 50 mg tablet Take 50 mg by mouth daily at bedtime. tamsulosin (FLOMAX) 0.4 mg Take 0.4 mg by mouth once daily. 2 daily Vitamin E, dl, acetate, (VITAMIN E) 400 unit capsule Take 400 Units by mouth once daily. Simethicone 125 mg cap Take by mouth. aspirin, enteric coated (ASPIRIN, ENTERIC COATED) 81 mg EC tablet Take 81 mg by mouth once daily. naproxen sodium (ANAPROX) 220 mg tablet Take 220 mg by mouth twice daily with meals. Docusate Sodium 100 mg tab Take 2 tablets by mouth. Cetirizine (ZYRTEC) 10 mg cap Take by mouth. denosumab (PROLIA) 60 mg/mL Inject 60 mg subcutaneously one time only. leuprolide, 6 month, (LUPRON DEPOT, 6 MONTH,) sykt IM syringe kit Inject 45 mg intramuscularly one time only. No current facility-administered medications for this visit. ALLERGIES: ALLERGIES Allergen Reactions Chlorhexidine Rash Hibaclens [Other] Rash PAST MEDICAL HISTORY: PAST MEDICAL HISTORY Diagnosis Date BPH (benign prostatic hyperplasia) Diplopia Hypertension Prostate cancer (HCC) Pseudophakia of both eyes Strabismus Wears glasses PAST SURGICAL HISTORY: PAST SURGICAL HISTORY Procedure Laterality Date APPENDECTOMY COLONOSCOPY 11/18/2019 EYE MUSCLE SURG PROC UNLISTED Right 07/05/2021 07/05/2021 - Lorenzo Archuleta MD - Recess right superior rectus by 4 mm HERNIA REPAIR HX REMOVE CATARACT, INSERT LENS,EX Bilateral 06/2019 Dr. Grimm [place], [place] TONSILLECTOMY HX FAMILY HISTORY: FAMILY HISTORY Problem Relation Age of Onset Colon Cancer Mother GI Mother Diabetes Mother Cancer Father Pancreatic or Liver Diabetes Father SOCIAL HISTORY: Social History Tobacco Use Smoking status: Every Day Packs/day: 1.00 Years: 40.00 Pack years: 40.00 Types: Cigarettes Smokeless tobacco: Never Vaping Use Vaping Use: Never used Substance Use Topics Alcohol use: No Drug use: Never Comment: not asked COMPLETE REVIEW OF SYSTEMS: CONSTITUTION: Negative for pain, fatigue, weight loss, or appetite loss. EENT: Negative for mouth soreness, antibiotics use, epistaxis, visual problems, neck or facial swelling, fever/chills, bleeding gums, or hearing loss. CV: Negative for edema, calf swelling, palpitations, or chest pain. RESPIRATORY: Negative for cough, SOB, hemoptysis, or wheezing. GI: Negative for nausea/vomiting, heartburn, vomiting blood, dysphasia, diarrhea, blood in stool, constipation, early satiety, PICA, vegetarian, poor nutrition, abdominal fullness, or abdominal pain. NEUROLOGICAL: Negative for numbness/tingling, dizziness, gait disturbance, headache, speech disturbance, tremor, hemiparesis/sensory loss, or change in mental status. MUSCULOSKELETAL: Negative for joint pain, joint swelling, or proximal muscle weakness. SKIN: Negative for hair loss, bruising, nail changes, rash, itching, pallor, or jaundice. ENDO/URO: Negative for hot flashes, cold or heat intolerance, urinary frequency, urinary hesitancy, menorrhagia, or hematuria. PSYCH: Negative for anxiety, depression, or other. PHYSICAL EXAM: BP 143/88 Pulse 70 Temp 36.1 C (97 F) (Temporal) Resp 16 Wt 80.9 kg (178 lb 6.4 oz) SpO2 98% BMI 24.20 kg/m GENERAL EXAM: Well developed/well nourished; in no acute distress. SKIN: Negative for lesions, rashes, or ulcers on the upper and lower extremities and face. Negative for palpations/nodules, purpura, and ecchymosis. EENT: Negative for conjunctiva, mucosal pallor, JVD, LAP, thyromegaly, and glossitis. Supple & PERRL. EXTREMITIES: Negative for cyanosis, clubbing, and crepitus. LUNGS: Negative to auscultation, respiratory effort, and percussion. CARDIOVASCULAR: Regular rate. Negative for murmurs/S3S4/abnormal sounds, edema, and carotid bruits. ABDOMEN: Negative for masses, hernia, and spleen/liver abnormalities. RECTAL: Not done PSYCHIATRIC: Negative for mood/affect changes, recent & remote memory changes, and judgement and insight. NEUROLOGICAL: Alert, oriented x person, place, time. Cranial nerves 2-12 intact. Sensory for pain, light touch, vibration intact on all 4 extremities. Reflexes symmetric for biceps/brachioradial/patella/ach illes. MUSCULOSKELETAL: Negative examination of joints, bones, muscles/tendons of all four extremities for inspection, percussion, and palpation. Negative for misallignment, asymmetry, crepitation, tenderness, mass, effusions. Range of motion normal. Negative for joint instability, laxity, dislocation. Gait steady. Negative for swelling, erythema, tenderness, soft tissue swelling, and atrophy. PATHOLOGY: 02/14/2000 Pelvic [place] node biopsy [place] Doug Regalado) Metastatic prostate adenocarcinoma involving 1 of 3 lymph nodes (right obturator LN) 01/20/2000 TRUS prostate biopsy ([facility]) Prostate adenocarcinoma, [place] composite score 8 LABS: Hemoglobin (g/dL) Date Value 06/24/2013 14.1 Hematocrit (%) Date Value 06/24/2013 39.9 WBC (k/uL) Date Value 06/24/2013 7.37 Platelet Count (k/uL) Date Value 06/24/2013 226 PSA 12/14/2020 0.20 03/14/2022 0.48 06/02/2022 0.50 RADIOLOGY/OTHER STUDIES: 06/02/2022 PSMA PET scan IMPRESSION: Head and neck: -No suspicious PSMA expressing neoplastic process. Chest: -No evidence of PSMA expressing neoplastic process Abdomens and Pelvis: - PSMA Avid focus in the prostatic region suspicious for neoplasm. Bones and soft tissues: - No evidence of PSMA expressing neoplastic process 01/15/2022 Bone density DEXA ([facility]) Osteopenia in bilateral femoral necks ASSESSMENT/PLAN: 1. Prostate cancer (HCC) - ICD9: 185, ICD10: C61 Prostate cancer diagnosed January 2000 (prostate biopsy 01/20/2000). Initial staging revealed evidence of lymph node involvement (pelvic lymph node biopsy 02/14/2000). Initial stage T3b, N1, M0; [place] 8. The patient received primary treatment with external beam radiation therapy which was completed 2000. ADT with Lupron started at the time of diagnosis and continued until July 2013. January 2017 the patient developed an increasing PSA and Lupron resumed, currently given every 6 months (last given October 2021 at [facility]). Due to an increasing PSA the patient underwent a PSMA PET scan on 06/02/2022, which revealed uptake in the prostatic region, otherwise no evidence of metastases. Options for further management were discussed at length with the patient and his . Currently he is scheduled to undergo further evaluation with an MRI of the prostate (scheduled for 08/15/2022). Based on these results local therapy options will be discussed. In the meantime the patient will continue as is with Lupron every 6 months. At his request we will arrange to have his injections given at our facility. He will return in 2 weeks to receive his next injection. The role of antiandrogen therapy was discussed, we have elected to start enzalutamide in addition to the Lupron. 2. History of bladder cancer Superficial bladder cancer diagnosed Jun 2016. Status post TURBT. Status post intravesicular BCG and intravesicular gemcitabine. Most recent cystoscopy 04/19/2022 negative. Continue management per urology (Dr. Shaw). 3. Osteopenia History of diminished bone density secondary to androgen deprivation. On Prolia 60 mg SQ every 6 months since 2019, last given May 2022 ([facility]). Will continue as planned. Would monitor bone density DEXA every 2 to 3 years. Jose Francicso Broussard MD CC: Dr. Leroy Shaw documented in this encounter [facility] 06[facility]10-[facility] Evaluation note Diagnosis Cancer of prostate w/med recur risk (T2b-c or Kita 7 or PSA 10-20) (HCC)- Primary Malignant neoplasm of prostate documented in this encounter [facility]01-24-2023 NoteHNO ID: [id number] Author: Ace Guzman MD Service: ? Author Type: Physician Type: Progress Notes Filed: 06/10/2022 10:00 AM Note Text: Radiation Oncology - Follow Up Note PATIENT NAME: Jm Barrow PATIENT DIAGNOSIS: Prostate cancer, node positive, prior pelvic and prostate radiation 2000. INTERVAL HISTORY: Patient is here today after further work-up including PSMA prostate PET scan. PSMA prostate PET scan 06/02/2022: Head and neck: -No suspicious PSMA expressing neoplastic process. Chest: -No evidence of PSMA expressing neoplastic process Abdomens and Pelvis: - PSMA Avid focus in the prostatic region suspicious for neoplasm. Bones and soft tissues: - No evidence of PSMA expressing neoplastic process PSA HISTORY: PSA Date Value 06/02/2022 0.50 ng/mL 02/03/2014 0.17 ng/mL 11/12/2013 <0.06 07/15/2013 0.23 ng/mL 06/24/2013 0.23 ng/mL PSA. (no units) Date Value 03/14/2022 0.48 12/14/2020 0.20 09/15/2017 0.15 11/10/2015 1.36 PSA 0.19 01/15/2020 PSA 0.16 11/12/2019 PSA 0.14 10/23/2018 PSA 0.18 04/20/2018 PSA 0.15 09/15/2017 Latest Reference Range AND Units 06/02/22 13:12 Testosterone 193 - 824 ng/dL <12 (L) (L): Data is abnormally low ALLERGIES: ALLERGIES Allergen Reactions Chlorhexidine Rash Hibaclens [Other] Rash MEDICATIONS: fluticasone-vilanterol (BREO ELLIPTA) 100-25 mcg/dose inhaler Inhale 1 Inhalation as instructed once daily. oxybutynin XL (DITROPAN XL) 5 mg 24 hr tablet Take 5 mg by mouth twice daily. escitalopram oxalate (LEXAPRO) 20 mg tablet Take 20 mg by mouth once daily. doxazosin mesylate (CARDURA ORAL) Take 0.5 mg by mouth. hydroCHLOROthiazide (HYDRODIURIL, ESIDRIX) 25 mg tablet Take 25 mg by mouth once daily. calcium-cholecalciferol, D3, (OSCAL+D 250) 250 mg-3.125 mcg (125 unit) per tablet Take 1 tablet by mouth once daily. vitamin D3-folic acid 125 mcg (5,000 unit)-1 mg tab Take by mouth. ascorbic acid, vitamin C, (VITAMIN C) 500 mg tablet Take 500 mg by mouth once daily. MULTI-VITAMIN ORAL Take by mouth. traZODone (DESYREL) 50 mg tablet Take 50 mg by mouth daily at bedtime. tamsulosin (FLOMAX) 0.4 mg Take 0.4 mg by mouth once daily. 2 daily Vitamin E, dl, acetate, (VITAMIN E) 400 unit capsule Take 400 Units by mouth once daily. Simethicone 125 mg cap Take by mouth. aspirin, enteric coated (ASPIRIN, ENTERIC COATED) 81 mg EC tablet Take 81 mg by mouth once daily. naproxen sodium (ANAPROX) 220 mg tablet Take 220 mg by mouth twice daily with meals. Docusate Sodium 100 mg tab Take 2 tablets by mouth. Cetirizine (ZYRTEC) 10 mg cap Take by mouth. denosumab (PROLIA) 60 mg/mL Inject 60 mg subcutaneously one time only. leuprolide, 6 month, (LUPRON DEPOT, 6 MONTH,) sykt IM syringe kit Inject 45 mg intramuscularly one time only. PERTINENT REVIEW OF SYSTEMS: Hematuria: none Dysuria: none Incontinence: none Urgency:mild Catheter use: none Medications to aid urination: Yes - Total AUA Score: 11 Bowel movement frequency: 1-3/day Bowel movement quality: normal Blood per rectum: none lupron restarted 01/29 PHYSICAL EXAM: 06/07/22 1321 BP: 169/89 Pulse: (!) 57 Resp: 18 Temp: 36.4 ?C (97.6 ?F) SpO2: 99% Weight: 82.1 kg (181 lb) KPS: 100 General appearance: Alert and oriented. No acute distress. Skin: Skin color, texture, turgor normal, no suspicious rashes or lesions. ASSESSMENT/PLAN: 1. Bladder cancer. doing well without evidence of recurrence has continued follow-up with his urologist. 2 Prostate cancer Kita 8, node positive with prior treatment including pelvic radiation as well as androgen ablative therapy, radiation completed 2000. Lupron restarted January 2017 due to PSA relapse continues on ADT PSA increasing. Restaging with PSMA PET shows no evidence of metastatic disease. Abnormal area of uptake within the prostate was described. I reviewed this is fairly midline, raising the question of potential misregistration/urethral uptake. Recommend further characterization with MRI. 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 See after MRI. Signed by: Ace Guzman MD cc: Arline Orosco MD [address] [place] [phone] Portions of the above note extracted and edited from previous visit as well as active information included in the EMR.[facility] 06-07-[facility]22 History of Present illness Narrative* Ace Guzman MD - 06/07/2022 1:22 PM EST Images from the original note were not included. Radiation Oncology - Follow Up Note PATIENT NAME: Jm Barrow PATIENT DIAGNOSIS: Prostate cancer, node positive, prior pelvic and prostate radiation 2000. INTERVAL HISTORY: Patient is here today after further work-up including PSMA prostate PET scan. PSMA prostate PET scan 06/02/2022: Head and neck: -No suspicious PSMA expressing neoplastic process. Chest: -No evidence of PSMA expressing neoplastic process Abdomens and Pelvis: - PSMA Avid focus in the prostatic region suspicious for neoplasm. Bones and soft tissues: - No evidence of PSMA expressing neoplastic process PSA HISTORY: PSA Date Value 06/02/2022 0.50 ng/mL 02/03/2014 0.17 ng/mL 11/12/2013 <0.06 07/15/2013 0.23 ng/mL 06/24/2013 0.23 ng/mL PSA. (no units) Date Value 03/14/2022 0.48 12/14/2020 0.20 09/15/2017 0.15 11/10/2015 1.36 PSA 0.19 01/15/2020 PSA 0.16 11/12/2019 PSA 0.14 10/23/2018 PSA 0.18 04/20/2018 PSA 0.15 09/15/2017 Latest Reference Range & Units 06/02/22 13:12 Testosterone 193 - 824 ng/dL <12 (L) (L): Data is abnormally low ALLERGIES: ALLERGIES Allergen Reactions Chlorhexidine Rash Hibaclens [Other] Rash MEDICATIONS: fluticasone-vilanterol (BREO ELLIPTA) 100-25 mcg/dose inhaler Inhale 1 Inhalation as instructed once daily. oxybutynin XL (DITROPAN XL) 5 mg 24 hr tablet Take 5 mg by mouth twice daily. escitalopram oxalate (LEXAPRO) 20 mg tablet Take 20 mg by mouth once daily. doxazosin mesylate (CARDURA ORAL) Take 0.5 mg by mouth. hydroCHLOROthiazide (HYDRODIURIL, ESIDRIX) 25 mg tablet Take 25 mg by mouth once daily. calcium-cholecalciferol, D3, (OSCAL+D 250) 250 mg-3.125 mcg (125 unit) per tablet Take 1 tablet by mouth once daily. vitamin D3-folic acid 125 mcg (5,000 unit)-1 mg tab Take by mouth. ascorbic acid, vitamin C, (VITAMIN C) 500 mg tablet Take 500 mg by mouth once daily. MULTI-VITAMIN ORAL Take by mouth. traZODone (DESYREL) 50 mg tablet Take 50 mg by mouth daily at bedtime. tamsulosin (FLOMAX) 0.4 mg Take 0.4 mg by mouth once daily. 2 daily Vitamin E, dl, acetate, (VITAMIN E) 400 unit capsule Take 400 Units by mouth once daily. Simethicone 125 mg cap Take by mouth. aspirin, enteric coated (ASPIRIN, ENTERIC COATED) 81 mg EC tablet Take 81 mg by mouth once daily. naproxen sodium (ANAPROX) 220 mg tablet Take 220 mg by mouth twice daily with meals. Docusate Sodium 100 mg tab Take 2 tablets by mouth. Cetirizine (ZYRTEC) 10 mg cap Take by mouth. denosumab (PROLIA) 60 mg/mL Inject 60 mg subcutaneously one time only. leuprolide, 6 month, (LUPRON DEPOT, 6 MONTH,) sykt IM syringe kit Inject 45 mg intramuscularly one time only. PERTINENT REVIEW OF SYSTEMS: Hematuria: none Dysuria: none Incontinence: none Urgency:mild Catheter use: none Medications to aid urination: Yes - Total AUA Score: 11 Bowel movement frequency: 1-3/day Bowel movement quality: normal Blood per rectum: none lupron restarted 01/29 PHYSICAL EXAM: 06/07/22 1321 BP: 169/89 Pulse: (!) 57 Resp: 18 Temp: 36.4 C (97.6 F) SpO2: 99% Weight: 82.1 kg (181 lb) KPS: 100 General appearance: Alert and oriented. No acute distress. Skin: Skin color, texture, turgor normal, no suspicious rashes or lesions. ASSESSMENT/PLAN: 1. Bladder cancer. doing well without evidence of recurrence has continued follow-up with his urologist. 2 Prostate cancer [place] 8, node positive with prior treatment including pelvic radiation as well as androgen ablative therapy, radiation completed 2000. Lupron restarted January 2017 due to PSA relapse continues on ADT PSA increasing. Restaging with PSMA PET shows no evidence of metastatic disease. Abnormal area of uptake within theprostate was described. I reviewed this is fairly midline, raising the question of potential misregistration/urethral uptake. Recommend further characterization with MRI. 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 See after MRI. Signed by: Ace Guzman MD cc: Arline Orosco MD [address] [place] [phone] Portions of the above note extracted and edited from previous visit as well as active information included in the EMR. [facility] NoteHNO ID: [id number] Author: Lorraine Bermudez RN Service: ? Author Type: Registered Nurse Type: Progress Notes Filed: 06/02/2022 1:41 PM Note Text: Radiology Service Progress Note DATE OF SERVICE: June 02, 2022 TIME: 1:40 PM PATIENT WEIGHT: 179 LBS PATIENT IDENTITY VERIFICATION COMPLETED USING TWO (2) STANDARD IDENTIFIERS: Name and Date of confirmed by patient verbally. FALL SCREENING: Has the patient had 2 falls in the last year or 1 fall with injury or currently using an Ambulatory Assistive Device (Walker, Cane, Wheelchair, Crutches, etc.)? No PATIENT GENDER DATA: Male ALLERGIES: Reviewed and unchanged EXAM: CT -CONTRAST INDUCED NEPHROPATHY RISK FACTORS: Not applicable CREATININE: Creatinine Date Value Ref Range Status 06/23/2021 0.85 0.73 - 1.22 mg/dL Final 07/09/2013 0.78 0.70 - 1.40 mg/dL Final Creatinine, Whole Blood (iSTAT) Date Value Ref Range Status 07/15/2013 0.70 0.70 - 1.40 mg/dL Final eGFR-All Other Races Date Value Ref Range Status 06/23/2021 >60 . Final Comment: eGFR (Estimated GFR) Units of measure: mL/min/1.73 meters squared eGFR is derived from the reexpressed MDRD Study equation using the following parameters: serum creatinine, age, gender and race. The creatinine assay has been calibrated to be traceable to IDMS. An eGFR <60 mL/min/1.73m2 for >3 months is consistent with chronic kidney disease. Refer to KDOQI guidelines for clinical interpretation. In patients with unstable renal function, e.g. those with acute kidney injury, the eGFR may not accurately reflect actual GFR. Note: On 07/10/2021, the eGFR calculation will be updated to the NKF-ASN Task Force recommended 2020 CKD-EPI creatinine equation which does not include a race variable. For more information or to access a 2020 CKD-EPI calculator, visit the National Kidney Foundation website at kidney.org/professionals/kdoqi/gfr_calculator. eGFR- Date Value Ref Range Status 06/23/2021 >60 Final P.O.C.T. RESULTS: N/A June 02, 2022 TREATMENT: N/A IV SITE: Ambulatory: A peripheral IV was started in the Left antecubital site with a Angio cath: 22 gauge. IV SITE APPEARANCE: Clean,Dry and Intact SIGNATURE: Lorraine Bermudez RN PATIENT NAME: Jm Barrow DATE: June 02, 2022 TIME: 1:[address] [facility]01-19-2023 NoteHNO ID: [id number] Author: RT Radha(R) Service: ? Author Type: Technologist Type: Progress Notes Filed: 06/02/2022 1:33 PM Note Text: RADIOLOGY SERVICE PROGRESS NOTE SERVICE DATE: 06/02/2022 SERVICE TIME: 1:33 PM PATIENT IDENTITY VERIFICATION COMPLETED USING TWO (2) STANDARD IDENTIFIERS: Name and Date of confirmed by patient verbally POST EXAM PIV STATUS: Discontinued PROCEDURE TYPE: NM INJECT: PET/CT BODY SCAN. 10.8 mCi F18 FDG. No other medications given.. ADMINISTRATION TIME: 1327 PATIENT DISCHARGED TO: Ambulatory patient, left NM department area. A Diagnostic radioactive procedure has taken place, with no further precautions necessary other than routine body substance precautions. More information regarding radiation safety can be found using this link: [email or web address] SIGNATURE: RT Radha(R) PATIENT NAME: Jm Barrow DATE: June 02, 2022 TIME: 1:33 PM PAGER/CONTACT #:[facility]12-07-2022 Miscellaneous Notes* Telephone Encounter - Lena Dowd RN - 04/20/2022 8:11 AM EST Will submit for Abdi approval closer to May 2022. submitted 05-06-22 * Telephone Encounter - Lena Dowd RN - 04/19/2022 12:48 PM EST Auth#: [id number] Date Range: 05/06/2022 to 08/03/2022 99664/PSMA- piflufolastat F [id number] NPI: Donte Montes [id number] Member ID : Abdi Aragon [id number] INS Contact Number: [facility] [phone] Intake: Sophia started case Case/Ref#: [id number] Notes: faxed 11 pages clinical to Clinical Review Nurse at [phone]. Sophia stated case not meeting criteria and needed Peer to Peer. Email to RCM/ Dr Simon Barrow [id number] PET/CT Prostate scan needs Peer to Peer at [phone] case [id number] email to Dr Megan Aguirre RN, Jm Barrow [id number] PET/CT Prostate scan needs Peer to Peer at [phone] case [id number]. Did you get approval? On epic referral [facility] documented approval: Authorization #: [id number] Valid From: 05/06/2022 to 08/03/2022 * Telephone Encounter - Lena Dowd RN - 04/19/2022 12:42 PM EST Authorization number: [facility] [id number] Authorization date range: PSMA 05/06/2022 to 08/03/2022 1-dos Primary Insurance: [employer] [id number] Diagnosis: History of prostate cancer [Z85.46] Cancer of prostate w/med recur risk (T2b-c or [place] 7 or PSA 10-20) (HCC) [C61] DX Imaging: CT/CTA: 01-30-[address] [facility] [address] Pathology: Prostate cancer 2000 Labs: 03-14-22 PSA 0.48 12-14-20 PSA 0.20 09-15-17 PSA 0.15 Clinical Notes Reviewed: 03-22-22 Rad Onc Date of last: pelvic radiation as well as androgen ablative therapy, radiation completed 2000. 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 Is this request for a [place] PET scan appointment? Yes: Geophysical Prospecting Surveyor: Maral Dominique Requesting Person (Last Name, First Name): Rasta Dominique Area Code + Phone/Pager: [phone] Who do we call to schedule this appointment? Other Contact: PSMA PET in [place] (IN May), route to Anne Browne to schedule. Requesting Staff Jud Guzman Area Code + Phone/Pager: [phone] PET Orders (A delay in scheduling will result if the orders are not present at time of review): Internal ADDITIONAL ACTION MAY BE REQUIRED IF PATIENTS OON INSURANCE OR SELF PAY COVERAGE HAS NOT BEEN CLEARED FOR REQUESTED APPOINTMENT. Scheduling: Specific date/time (Requests should be greater then 10 buisness days): DUE May 2022 What account will this PET appointment be linked to? P/F Type of PET: Oncology: Are there additional diagnostic CT scans required to be done at time of PET scan? No Is the request for a PET MR ? No What account will diagnostic testing appointment be linked to? P/F Will the patient need anesthesia? NO Send requests to P [facility] REVIEW [facility] documented [facility] Evaluation note* Diagnosis History of prostate cancer- Primary Personal history of malignant neoplasm of prostate Cancer of prostate w/med recur risk (T2b-c or [place] 7 or PSA 10-20) (HCC) Malignant neoplasm of prostate [facility] Nurse Note* Mali Mora LPN - 03/22/2022 1:12 PM EST AUA= 11 documented in this encounterV[facility]11-[facility]-2022 History of Present illness Narrative* Ace Guzman MD - 03/22/2022 1:07 PM EST Images from the original note were not included. Radiation Oncology - Follow Up Note PATIENT NAME: Jm Barrow PATIENT DIAGNOSIS: Prostate cancer, node positive, prior pelvic and prostate radiation 2000. INTERVAL HISTORY: Doing well. Denies new problems or concerns. PSA HISTORY: PSA Date Value 02/03/2014 0.17 ng/mL 11/12/2013 <0.06 07/15/2013 0.23 ng/mL 06/24/2013 0.23 ng/mL PSA. (no units) Date Value 03/14/2022 0.48 12/14/2020 0.20 09/15/2017 0.15 11/10/2015 1.36 PSA 0.19 01/15/2020 PSA 0.16 11/12/2019 PSA 0.14 10/23/2018 PSA 0.18 04/20/2018 PSA 0.15 09/15/2017 ALLERGIES: ALLERGIES Allergen Reactions Chlorhexidine Rash Hibaclens [Other] Rash MEDICATIONS: fluticasone-vilanterol (BREO ELLIPTA) 100-25 mcg/dose inhaler Inhale 1 Inhalation as instructed once daily. oxybutynin XL (DITROPAN XL) 5 mg 24 hr tablet Take 5 mg by mouth twice daily. escitalopram oxalate (LEXAPRO) 20 mg tablet Take 20 mg by mouth once daily. doxazosin mesylate (CARDURA ORAL) Take 0.5 mg by mouth. hydroCHLOROthiazide (HYDRODIURIL, ESIDRIX) 25 mg tablet Take 25 mg by mouth once daily. calcium-cholecalciferol, D3, (OSCAL+D 250) 250 mg-3.125 mcg (125 unit) per tablet Take 1 tablet by mouth once daily. ascorbic acid, vitamin C, (VITAMIN C) 500 mg tablet Take 500 mg by mouth once daily. MULTI-VITAMIN ORAL Take by mouth. traZODone (DESYREL) 50 mg tablet Take 50 mg by mouth daily at bedtime. tamsulosin (FLOMAX) 0.4 mg Take 0.4 mg by mouth once daily. 2 daily Vitamin E, dl, acetate, (VITAMIN E) 400 unit capsule Take 400 Units by mouth once daily. Simethicone 125 mg cap Take by mouth. aspirin, enteric coated (ASPIRIN, ENTERIC COATED) 81 mg EC tablet Take 81 mg by mouth once daily. naproxen sodium (ANAPROX) 220 mg tablet Take 220 mg by mouth twice daily with meals. Docusate Sodium 100 mg tab Take 2 tablets by mouth. Cetirizine (ZYRTEC) 10 mg cap Take by mouth. denosumab (PROLIA) 60 mg/mL Inject 60 mg subcutaneously one time only. leuprolide, 6 month, (LUPRON DEPOT, 6 MONTH,) sykt IM syringe kit Inject 45 mg intramuscularly one time only. vitamin D3-folic acid 125 mcg (5,000 unit)-1 mg tab Take by mouth. PERTINENT REVIEW OF SYSTEMS: Hematuria: none Dysuria: none Incontinence: none Urgency:mild Catheter use: none Medications to aid urination: Yes - Total AUA Score: 11 Bowel movement frequency: 1-3/day Bowel movement quality: normal Blood per rectum: none lupron restarted 01/29 PHYSICAL EXAM: 03/22/22 1309 BP: 125/64 Pulse: (!) 56 Resp: 18 Temp: 36.3 C (97.4 F) SpO2: 97% Weight: 81.6 kg (180 lb) KPS: 100 General appearance: Alert and oriented. No acute distress. Abdomen: Normal abdominal exam, Abdomen soft, non-tender. No masses, organomegaly. Rectal exam def Extremities: No deformities, edema, skin discoloration, clubbing or cyanosis. Lymph Nodes: No cervical lymphadenopathy, No supraclavicular lymphadenopathy, No axillary lymphadenopathy. Skin: Skin color, texture, turgor normal, no suspicious rashes or lesions. ASSESSMENT/PLAN: 1. Bladder cancer. doing well without evidence of recurrence has continued follow-up with his urologist. 2 Prostate cancer Kita 8, node positive with prior treatment including pelvic radiation as well as androgen ablative therapy, radiation completed 2000. Lupron restarted January 2017 due to PSA relapse continues on ADT PSA increasing. Recent value shows shortening of doubling time. Given continued rise concern is forcomponent of androgen resistant disease. Recommend further imaging at this time with PSMA PET. We will plan to see patient back after PET scan. Signed by: Ace Guzman MD cc: Arline Orosco MD [address] [place] [phone] Portions of the above note extracted and edited from previous visit as well as active information included in the EMR. documented in this encounter[facility]04-11-2022 History of Present illness Narrative* Lola Allen, OD - 08/23/2021 3:06 PM EDT ASSESSMENT/PLAN: 1. 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 Diplopia - ICD9: 368.2, ICD10: H53.2 3. Pseudophakia of both eyes - ICD9: V43.1, ICD10: Z96.1 4. Monocular diplopia of right eye - ICD9: 368.2, ICD10: H53.2 Refine spec Rx per pt request Specs from K[facility] are OFF x ~90 degrees of AXIS Refraction made very difficult by constant Monocular Diplopia OD Return to clinic if further problems with new prism specs I have confirmed and edited as necessary the relevant ophthalmic history, ROS, and the exam findings as obtained by others. I have seen and examined this patient. I also have reviewed and agree with the assessment and plan as stated above and agree with all of its relevant components. Lola Allen, NORTH August 23, 2021 3:06 PM documented in this encounterV[facility]02-09-2022 History of Past illness Narrative* Problem Noted Date Resolved Date BPH (benign prostatic hyperplasia) 06/23/2021 documented as of this encounter (statuses as of 08/23/2021) [address] History of Past illness Narrative* Problem Noted Date Resolved Date BPH (benign prostatic hyperplasia) 06/23/2021 documented as of this encounter (statuses as of 03/28/2022) [address]-[address] History of Past illness Narrative* Problem Noted Date Resolved Date BPH (benign prostatic hyperplasia) 06/23/2021 documented as of this encounter (statuses as of 05/31/2022) [address] History of Past illness Narrative* Problem Noted Date Resolved Date BPH (benign prostatic hyperplasia) 06/23/2021 documented as of this encounter (statuses as of 06/10/2022) [address]-[address]22 History of Past illness Narrative* Problem Noted Date Resolved Date BPH (benign prostatic hyperplasia) 06/23/2021 documented as of this encounter (statuses as of 06/16/2022) [address] History of Past illness Narrative* Problem Noted Date Resolved Date BPH (benign prostatic hyperplasia) 06/23/2021 documented as of this encounter (statuses as of 06/22/2022) [place] [id number] History of Past illness Narrative* Problem Noted Date Resolved Date BPH (benign prostatic hyperplasia) 06/23/2021 documented as of this encounter (statuses as of 06/22/2022) [address] History of Past illness Narrative* Problem Noted Date Resolved Date BPH (benign prostatic hyperplasia) 06/23/2021 documented as of this encounter (statuses as of 06/23/2022) [address] History of Past illness Narrative* Problem Noted Date Resolved Date BPH (benign prostatic hyperplasia) 06/23/2021 documented as of this encounter (statuses as of 06/27/2022) [address] History of Past illness Narrative* Problem Noted Date Resolved Date BPH (benign prostatic hyperplasia) 06/23/2021 documented as of this encounter (statuses as of 07/07/2022) [address] History of Past illness Narrative* Problem Noted Date Resolved Date BPH (benign prostatic hyperplasia) 06/23/2021 documented as of this encounter (statuses as of 07/13/2022) [address] History of Past illness Narrative* Problem Noted Date Resolved Date BPH (benign prostatic hyperplasia) 06/23/2021 documented as of this encounter (statuses as of 07/18/2022) [address] History of Past illness Narrative* Problem Noted Date Resolved Date BPH (benign prostatic hyperplasia) 06/23/2021 documented as of this encounter (statuses as of 07/26/2022) [address] History of Past illness Narrative* Problem Noted Date Resolved Date BPH (benign prostatic hyperplasia) 06/23/2021 documented as of this encounter (statuses as of 08/16/2022) [address] History of Past illness Narrative* Problem Noted Date Resolved Date BPH (benign prostatic hyperplasia) 06/23/2021 documented as of this encounter (statuses as of 09/23/2022) [address] History of Past illness Narrative* Problem Noted Date Diagnosed Date Resolved Date BPH (benign prostatic hyperplasia) 06/23/2021 documented as of this encounter (statuses as of 11/25/2022) [address] History of Past illness Narrative* Problem Noted Date Diagnosed Date Resolved Date BPH (benign prostatic hyperplasia) 06/23/2021 documented as of this encounter (statuses as of 12/08/2022) [address] History of Past illness Narrative* Problem Noted Date Diagnosed Date Resolved Date BPH (benign prostatic hyperplasia) 06/23/2021 documented as of this encounter (statuses as of 12/12/2022) [address] History of Past illness Narrative* Problem Noted Date Diagnosed Date Resolved Date BPH (benign prostatic hyperplasia) 06/23/2021 documented as of this encounter (statuses as of 12/27/2022) [address] History of Past illness Narrative* Problem Noted Date Diagnosed Date Resolved Date BPH (benign prostatic hyperplasia) 06/23/2021 documented as of this encounter (statuses as of 12/29/2022) [address] History of Past illness Narrative* Problem Noted Date Diagnosed Date Resolved Date BPH (benign prostatic hyperplasia) 06/23/2021 documented as of this encounter (statuses as of 03/01/2023) [address] History of Past illness Narrative* Problem Noted Date Diagnosed Date Resolved Date BPH (benign prostatic hyperplasia) 06/23/2021 documented as of this encounter (statuses as of 03/28/2023) [address] History of Past illness Narrative* Problem Noted Date Diagnosed Date Resolved Date BPH (benign prostatic hyperplasia) 06/23/2021 documented as of this encounter (statuses as of 03/28/2023) [address] History of Past illness Narrative* Problem Noted Date Diagnosed Date Resolved Date BPH (benign prostatic hyperplasia) 06/23/2021 documented as of this encounter (statuses as of 04/12/2023) [facility] Diagnosis 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 Lens replaced by other means Monocular diplopia of right eye [facility] Diagnosis Prostate cancer (HCC)- Primary Malignant neoplasm of prostate [facility] Diagnosis Prostate cancer (HCC)- Primary Malignant neoplasm of prostate documented in this encounter [facility] note* Diagnosis 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 Lens replaced by other means Myopia with astigmatism and presbyopia, bilateral PVD (posterior vitreous detachment), both eyes Vitreous degeneration Dry eye syndrome, bilateral [facility]* Diagnosis Cancer of prostate w/med recur risk (T2b-c or [place] 7 or PSA 10-20) (HCC) Malignant neoplasm of prostate [facility] noteNo assessment information [facility]Fire[facility] Work Phone: Evaluation note* Diagnosis Prostate cancer (HCC)- Primary Malignant neoplasm of prostate Osteopenia of multiple sites Primary hypertension Unspecified essential hypertension [facility] Diagnosis Malignant neoplasm of prostate (HCC)- Primary Malignant neoplasm of prostate [facility] Diagnosis Malignant neoplasm of prostate (HCC) Malignant neoplasm of prostate [facility]* Diagnosis Screening for genitourinary condition Screening for other and unspecified genitourinary condition [facility] Diagnosis Osteopenia of multiple sites- Primary Prostate cancer (HCC) Malignant neoplasm of prostate [facility] Diagnosis History of prostate cancer- Primary Personal history of malignant neoplasm of prostate Prostate cancer (HCC) Malignant neoplasm of prostate [facility] Diagnosis Orthostatic hypotension- Primary [facility] Diagnosis Orthostatic hypotension- Primary [facility] Patient returns in follow- up of problems as noted. In the interim his medical therapy was further re duced. Today in the office he has a low normal blood pressure. He insists, though, that he is having high readings at other times. Advised him that this is hard to explain. We performed orthostatics and blood pressure is even lower. Curiously he is not symptomatic. I proposed a further reduction in therapy but he is hesitant and/or reluctant to do so. * I finally got him to agree to check his blood pressure only standing. I suggested to him and his that he may actually have autonomic insufficiency and have high readings in his seated and/or supine position but low or very low blood pressure standing. I pointed out to both of them that I am more concerned about the low readings in the high readings and the concept of falling with hip fracture skull fracture, etc. was explained in detail and they can occur. * Encouraged him to call me regarding blood pressures extremely high or extremely low and we will provide guidance by phone but otherwise plan to see him in several months. -[facility] [address] DO Work Phone: [facility] for referral (narrative)* Diagnostic Procedure Only (Routine) - Pending Review Specialty Diagnoses / Procedures Referred By Contac t Referred To Contact MOLECULAR & FUNCTIONAL IMAGING Diagnoses History of prostate cancer Cancer of prostate w/med recur risk (T2b-c or [place] 7 or PSA 10-20) (HCC) Procedures NM PET/CT PROSTATE WHOLE BODY IMAGING PET IMAGING CT ATTENUATION SKULL BASE MID-THIGH Ace Guzman MD [address] [place] [address] [place] [address] Molecular & Functional Imaging [address] [place] [address] Referral ID Status Reason Start Date Expiration Date Visits Requested Visits Authorized [id number] Pending Review Auto-Generat ed Referral 05/22/2022 04/21/2023 1 1 [facility] for referral (narrative)* Diagnostic Procedure Only (Routine) - Authorized Specialty Diagnoses / Procedures Referred By Theodoreac t Referred To Contact MOLECULAR & FUNCTIONAL IMAGING Diagnoses Prostate cancer (HCC) Procedures NM PET/CT PROSTATE WHOLE BODY IMAGING PET IMAGING CT ATTENUATION SKULL BASE MID-THIGH Ace Guzman MD [address] [place] [address] [place] [address] Molecular & Functional Imaging [address] [place] [address] Referral ID Status Reason Start Date Expiration Date Visits Requested Visits Authorized [id number] Authorized Auto-Generat ed Referral 05/26/2023 03/24/2024 1 1 T [facility] Summary Purpose Family History No Family History Records FoundUnknown Family Member Name Dates Details Family history of hyperlipid emia: Mother, Father(V18.19, Z83.438) Status:Active Family history of coronary a rtery disease: Mother, Father(V17.3, Z82.49) Status:Active Family history of diabetes m ellitus: Mother(V18.0, Z83.3) Status:Active No pertinent family history: Sibling(V49.89, Z78.9) Status:Active Unknown Family Member Name Dates Details Family history of hyperlipid emia: Mother, Father(V18.19, Z83.438) Status:Active Family history of coronary a rtery disease: Mother, Father(V17.3, Z82.49) Status:Active Family history of diabetes m ellitus: Mother(V18.0, Z83.3) Status:Active No pertinent family history: Sibling(V49.89, Z78.9) Status:Active Unknown Family Member Name Dates Details Family history of hyperlipid emia: Mother, Father(V18.19, Z83.438) Status:Active Family history of coronary a rtery disease: Mother, Father(V17.3, Z82.49) Status:Active Family history of diabetes m ellitus: Mother(V18.0, Z83.3) Status:Active No pertinent family history: Sibling(V49.89, Z78.9) Status:Active Unknown Family Member Name Dates Details Family history of hyperlipid emia: Mother, Father(V18.19, Z83.438) Status:Active Family history of coronary a rtery disease: Mother, Father(V17.3, Z82.49) Status:Active Family history of diabetes m ellitus: Mother(V18.0, Z83.3) Status:Active No pertinent family history: Sibling(V49.89, Z78.9) Status:Active Unknown Family Member Name Dates Details Family history of hyperlipid emia: Mother, Father(V18.19, Z83.438) Status:Active Family history of coronary a rtery disease: Mother, Father(V17.3, Z82.49) Status:Active Family history of diabetes m ellitus: Mother(V18.0, Z83.3) Status:Active No pertinent family history: Sibling(V49.89, Z78.9) Status:Active Advance Directives No Advanced Directives Records FoundDocuments on File Type Date 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 Advance Directive(s) 06/24/2021 8:42 AM Advance Directive(s) 11/08/2019 9:14 AM Advance Directive Response Recorded Date/ Time Advance Directives No September 12, 2018 6:07pm Reason for Referral Specialty Diagnoses / Procedures Referred By Contac t Referred To Contact Oncology Diagnoses Cancer of prostate w/med recur risk (T2b-c or [place] 7 or PSA 10-20) (HCC) Procedures CONSULT TO ONCOLOGY OFFICE/OUTPATIENT [facility] 60-74 MINUTES Ace Guzman MD [facility] [place] [address] Referral ID Status Reason Start Date Expiration Date Visits Requested Visits Authorized [id number] Pending Review PCP Requested Referral 06/07/2022 06/07/2023 1 1 Specialty Diagnoses / Procedures Referred By Contac t Referred To Contact MR IMAGING Diagnoses Cancer of prostate w/med recur risk (T2b-c or [place] 7 or PSA 10-20) (HCC) Procedures MRI PROSTATE WO/W IVCON MRI PELVIS W/O & W/CONTRAST MATERIAL Ace Guzman MD [facility] [place] [address] Mr Imaging Referral ID Status Reason Start Date Expiration Date Visits Requested Visits Authorized [id number] Authorized Auto-Generat ed Referral 06/07/2022 07/07/2023 1 1 Referral ID Status Reason Start Date Expiration Date V isits Requested Visits Authorized [id number] Closed Auto-Generate d Referral 06/07/2022 07/07/2023 1 1 Specialty Diagnoses / Procedures Referred By Contac t Referred To Contact Urology Diagnoses Malignant neoplasm of prostate (HCC) Procedures CONSULT TO UROLOGY OFFICE/OUTPATIENT [facility] 60-74 MINUTES Ace Guzman MD [address] [place] [address] Referral ID Status Reason Start Date Expiration Date Visits Requested Visits Authorized [id number] Pending Review PCP Requested Referral 11/24/2022 11/24/2023 1 1 Specialty Diagnoses / Procedures Referred By Contac t Referred To Contact Radiation Oncology Diagnoses Malignant neoplasm of prostate (HCC) Procedures RAD/ONC CONSULT OFFICE/OUTPATIENT [facility] 60-74 MINUTES Manny Meza MD [address] [place] [address] Referral ID Status Reason Start Date Expiration Date Visits Requested Visits Authorized [id number] Pending Review PCP Requested Referral 12/07/2022 12/07/2023 1 1 Medications Administered Section Inactive Administered Medications - up to 3 most recent administrations Medication Order MAR Action Action Date Dose Rate Site leuprolide acetate (6 month) 45 mg IM syringe kit (LUPRON) 45 mg, INTRAMUSCULAR, ONCE, 1 dose, On Jossy 07/07/22 at 1600, Hazardous Chemotherapy Drug: Use appropriate PPE. Given 07/07/2022 3:53 PM EST 45 mg Buttocks, Right Inactive Administered Medications - up to 3 most recent administrations Medication Order MAR Action Action Date Dose Rate Site denosumab 60 mg injection (PROLIA) 60 mg, SUBCUTANEOUS, ONCE, 1 dose, On Mon12/26/22 at 1630, Allow To Come To Room Temperature Before Administration. REFRIGERATE Given 12/26/2022 4:23 PM EDT 60 mg Arm, Left leuprolide acetate (6 month) 45 mg IM syringe kit (LUPRON) 45 mg, INTRAMUSCULAR, ONCE, 1 dose, On Mon12/26/22 at 1630, Hazardous Chemotherapy Drug: Use appropriate PPE. Given 12/26/2022 4:23 PM EDT 45 mg Buttocks, Right Inactive Administered Medications - up to 3 most recent administrations Medication Order MAR Action Action Date Dose Rate Site acetylcholine 10% solution - [facility] compounding 20 mL, IRRIGATION, ONCE, 1 dose, On Mon03/27/23 at 1330, Protect from Light. Refrigerate, AMB MED ORDERS Given 03/27/2023 1:15 PM EST 20 mL Left Chief Complaint and Reason for Visit Chief Complaint i65.23 Chief Complaint JM BARROW is being seen for a 1 month follow-up of.JM PUSHPA is being seen for a 1 month follow-up of. Additional Source Comments (unrecognized sect ion and content) No Status Records FoundNo Status Records FoundNo Status Records FoundNo Status Records FoundNo Status Records FoundNo Status Records FoundNo Status Records FoundNo Status Records Found INFORMATION SOURCE (unrecogn ized section and content) DATE CREATED AUTHOR 11/07/2017 [facility] DATE CREATED AUTHOR AUTHOR'S ORGANIZ ATION 08/04/2022 [facility] DATE CREATED AUTHOR AUTHOR'S ORGANIZ ATION 08/18/2022 [facility] DATE CREATED AUTHOR AUTHOR'S ORGANIZ ATION 10/25/2022 [facility] DATE CREATED AUTHOR AUTHOR'S ORGANIZ ATION 10/25/2022 [facility] DATE CREATED AUTHOR AUTHOR'S ORGANIZ ATION 01/07/2023 [facility] DATE CREATED AUTHOR AUTHOR'S ORGANIZ ATION 02/19/2023 [facility] DATE CREATED AUTHOR AUTHOR'S ORGANIZ ATION 05/15/2023 [facility] Source Comments (unrecognize d section and content) In the event this informatio n is protected by the Federal Confidentiality of Alcohol and Drug Abuse Patient Records regulations: The Federal rules restrict any use of the information to criminally investigate or prosecute any alcohol or drug abuse patient.[facility] the event this information is protected by the Federal Confidentiality of Alcohol and Drug Abuse Patient Records regulations: The Federal rules restrict any use of the information to criminally investigate or prosecute any alcohol or drug abuse patient.[facility] AdministrationIn the event this information is protected by the Federal Confidentiality of Alcohol and Drug Abuse Patient Records regulations: The Federal rules restrict any use of the information to criminally investigate or prosecute any alcohol or drug abuse patient.[facility] AdministrationIn the event this information is protected by the Federal Confidentiality of Alcohol and Drug Abuse Patient Records regulations: The Federal rules restrict any use of the information to criminally investigate or prosecute any alcohol or drug abuse patient.[facility] AdministrationIn the event this information is protected by the Federal Confidentiality of Alcohol and Drug Abuse Patient Records regulations: The Federal rules restrict any use of the information to criminally investigate or prosecute any alcohol or drug abuse patient.[facility] AdministrationIn the event this information is protected by the Federal Confidentiality of Alcohol and Drug Abuse Patient Records regulations: The Federal rules restrict any use of the information to criminally investigate or prosecute any alcohol or drug abuse patient.[facility] AdministrationIn the event this information is protected by the Federal Confidentiality of Alcohol and Drug Abuse Patient Records regulations: The Federal rules restrict any use of the information to criminally investigate or prosecute any alcohol or drug abuse patient.[facility] AdministrationIn the event this information is protected by the Federal Confidentiality of Alcohol and Drug Abuse Patient Records regulations: The Federal rules restrict any use of the information to criminally investigate or prosecute any alcohol or drug abuse patient.[facility] AdministrationIn the event this information is protected by the Federal Confidentiality of Alcohol and Drug Abuse Patient Records regulations: The Federal rules restrict any use of the information to criminally investigate or prosecute any alcohol or drug abuse patient.[facility] AdministrationIn the event this information is protected by the Federal Confidentiality of Alcohol and Drug Abuse Patient Records regulations: The Federal rules restrict any use of the information to criminally investigate or prosecute any alcohol or drug abuse patient.[facility] AdministrationIn the event this information is protected by the Federal Confidentiality of Alcohol and Drug Abuse Patient Records regulations: The Federal rules restrict any use of the information to criminally investigate or prosecute any alcohol or drug abuse patient.[facility] Administration[facility] the event this information is protected by the Federal Confidentiality of Alcohol and Drug Abuse Patient Records regulations: The Federal rules restrict any use of the information to criminally investigate or prosecute any alcohol or drug abuse patient.[facility] Administration[facility] the event this information is protected by the Federal Confidentiality of Alcohol and Drug Abuse Patient Records regulations: The Federal rules restrict any use of the information to criminally investigate or prosecute any alcohol or drug abuse patient.[facility] AdministrationIn the event this information is protected by the Federal Confidentiality of Alcohol and Drug Abuse Patient Records regulations: The Federal rules restrict any use of the information to criminally investigate or prosecute any alcohol or drug abuse patient.[facility] AdministrationIn the event this information is protected by the Federal Confidentiality of Alcohol and Drug Abuse Patient Records regulations: The Federal rules restrict any use of the information to criminally investigate or prosecute any alcohol or drug abuse patient.[facility] AdministrationIn the event this information is protected by the Federal Confidentiality of Alcohol and Drug Abuse Patient Records regulations: The Federal rules restrict any use of the information to criminally investigate or prosecute any alcohol or drug abuse patient.[facility] AdministrationIn the event this information is protected by the Federal Confidentiality of Alcohol and Drug Abuse Patient Records regulations: The Federal rules restrict any use of the information to criminally investigate or prosecute any alcohol or drug abuse patient.[facility] AdministrationIn the event this information is protected by the Federal Confidentiality of Alcohol and Drug Abuse Patient Records regulations: The Federal rules restrict any use of the information to criminally investigate or prosecute any alcohol or drug abuse patient.[facility] AdministrationIn the event this information is protected by the Federal Confidentiality of Alcohol and Drug Abuse Patient Records regulations: The Federal rules restrict any use of the information to criminally investigate or prosecute any alcohol or drug abuse patient.[facility] AdministrationIn the event this information is protected by the Federal Confidentiality of Alcohol and Drug Abuse Patient Records regulations: The Federal rules restrict any use of the information to criminally investigate or prosecute any alcohol or drug abuse patient.[facility] AdministrationIn the event this information is protected by the Federal Confidentiality of Alcohol and Drug Abuse Patient Records regulations: The Federal rules restrict any use of the information to criminally investigate or prosecute any alcohol or drug abuse patient.[facility] AdministrationIn the event this information is protected by the Federal Confidentiality of Alcohol and Drug Abuse Patient Records regulations: The Federal rules restrict any use of the information to criminally investigate or prosecute any alcohol or drug abuse patient.[facility] AdministrationIn the event this information is protected by the Federal Confidentiality of Alcohol and Drug Abuse Patient Records regulations: The Federal rules restrict any use of the information to criminally investigate or prosecute any alcohol or drug abuse patient.[facility] AdministrationIn the event this information is protected by the Federal Confidentiality of Alcohol and Drug Abuse Patient Records regulations: The Federal rules restrict any use of the information to criminally investigate or prosecute any alcohol or drug abuse patient.[facility] AdministrationIn the event this information is protected by the Federal Confidentiality of Alcohol and Drug Abuse Patient Records regulations: The Federal rules restrict any use of the information to criminally investigate or prosecute any alcohol or drug abuse patient.[facility] Reason for Visit (unrecogniz ed section and content) Reason Comments Refraction Reason Comments Prostate Cancer Reason Comments Nm Pet Request Reason Comments Consult Prostate Cancer Specialty Diagnoses / Procedures Referred By Tori t Referred To Contact Oncology Diagnoses Cancer of prostate w/med recur risk (T2b-c or [place] 7 or PSA 10-20) (HCC) Procedures CONSULT TO ONCOLOGY OFFICE/OUTPATIENT NEW HIGH MDM 60-74 MINUTES Ace Guzman MD [address] [place] [address] [place] [address] Referral ID Status Reason Start Date Expiration Date Visits Requested Visits Authorized [id number] Pending Review PCP Requested Referral 06/07/2022 06/07/2023 1 1 Reason Comments Medication Update Xtandi Reason Comments Medication Authorization Xtandi Reason Comments Medication Update FYI patient deciding to move forward with Xtandi beyond 14 day free trial. Specialty Diagnoses / Procedures Referred By Contac t Referred To Contact Diagnoses Prostate cancer (HCC) Procedures LEUPROLIDE ACETATE SUSPNSION Jose Francisco Broussard MD [address] [place] [address] [place] [address] Christiano Treat [address] [place] [address] Referral ID Status Reason Start Date Expiration Date V isits Requested Visits Authorized [id number] Authorized 07/07/2022 07/07/2023 4 4 Reason Comments Medication Problem Reason Comments Yearly Exam Reason Comments Care Coordination Medication update Specialty Diagnoses / Procedures [facility] To Contact [facility] IMAGING Diagnoses Cancer of prostate w/med recur risk (T2b-c or Kita 7 or PSA 10-20) (HCC) Procedures MRI PROSTATE WO/W IVCON MRI PELVIS W/O & W/CONTRAST MATERIAL Ace Guzman MD [address] [place] [address] [place] [address] Mr Imaging Referral ID Status Reason Start Date Expiration Date V isits Requested Visits Authorized [id number] Closed Auto-Generate d Referral 06/07/2022 07/07/2023 1 1 Reason Comments Prostate Cancer 2 month follow up Reason Comments Prostate Cancer Follow up Reason Comments Consult Specialty Diagnoses / Procedures Referred By Contac t Referred To Contact Urology Diagnoses Malignant neoplasm of prostate (HCC) Procedures CONSULT TO UROLOGY OFFICE/OUTPATIENT NEW HIGH MDM 60-74 MINUTES Ace Guzman MD [address] [place] [address] [place] [address] Referral ID Status Reason Start Date Expiration Date Visits Requested Visits Authorized [id number] Pending Review PCP Requested Referral 11/24/2022 11/24/2023 1 1 Reason Comments Care Coordination Radiation Appointmen t Care Teams (unrecognized sec tion and content) 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 Relationship Specialty Start Date End Date Arline Orosco MD PCP - General Family Practice 06/02/11 Dawna Patrick Urology 02/10/14 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 Relationship Specialty Start Date End Date Arline Orosco MD PCP - General Family Medicine 06/02/11 Dawna Patrick Urology 02/10/14 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 Relationship Specialty Start Date End Date Arline Orosco MD PCP - General Family Medicine 06/02/11 Dawna Patrick Urology 02/10/14 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 Relationship Specialty Start Date End Date Arline Orosco MD PCP - General Family Medicine 06/02/11 Dawna Patrick Urology 02/10/14 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 Relationship Specialty Start Date End Date Arline Orosco MD PCP - General Family Medicine 06/02/11 Dawna Patrick Urology 02/10/14 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 Relationship Specialty Start Date End Date Arline Orosco MD PCP - General Family Medicine 06/02/11 Dawna Patrick Urology 02/10/14 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 Relationship Specialty Start Date End Date Arline Orosco MD PCP - General Family Medicine 06/02/11 Dawna Patrick Urology 02/10/14 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 Relationship Specialty Start Date End Date Arline Orosco MD PCP - General Family Medicine 06/02/11 Dawna Patrick Urology 02/10/14 Jose Francisco Broussard MD [address] [facility] [place] [address] Physician Hematology/Oncology 06/27/22 Helen Slade, MEAT SPECIALIST.DRILL PRESS OPERATOR [address] [facility] [place] [address] Nurse Practitioner Hematology/Oncology 06/27/22 Umer Dale, RN [address] [facility] [place] [address] Specialty Outside Medical Sales Representative Hematology/Oncology 06/27/22 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 Relationship Specialty Start Date End Date Arline Orosco MD PCP - General Family Medicine 06/02/11 Dawna Patrick Urology 02/10/14 Jose Francisco Broussard MD [address] [facility] [place] [address] Physician Hematology/Oncology 06/27/22 Helen Slade, MEAT SPECIALIST.DRILL PRESS OPERATOR [address] [facility] [place] [address] Nurse Practitioner Hematology/Oncology 06/27/22 Umer Dale, RN [address] [facility] [place] [address] Specialty Outside Medical Sales Representative Hematology/Oncology 06/27/22 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 Relationship Specialty Start Date End Date Arline Orosco MD PCP - General Family Medicine 06/02/11 Dawna Patrick Urology 02/10/14 Jose Francisco Broussard MD [address] [facility] [place] [address] Physician Hematology/Oncology 06/27/22 Helen Slade, MEAT SPECIALIST.DRILL PRESS OPERATOR [address] [facility] [place] [address] Nurse Practitioner Hematology/Oncology 06/27/22 Umer Dale, HITESH [address] [facility] [place] [address] Specialty Outside Medical Sales Representative Hematology/Oncology 06/27/22 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 Relationship Specialty Start Date End Date Arline Orosco MD PCP - General Family Medicine 06/02/11 Dawna Patrick Urology 02/10/14 Jose Francisco Broussard MD [address] [facility] [place] [address] Physician Hematology/Oncology 06/27/22 Helen Slade, MEAT SPECIALIST.DRILL PRESS OPERATOR [address] [facility] [place] [address] Nurse Practitioner Hematology/Oncology 06/27/22 Umer Dale, HITESH [address] [facility] [place] [address] Specialty Outside Medical Sales Representative Hematology/Oncology 06/27/22 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 Relationship Specialty Start Date End Date Arline Orosco MD PCP - General Family Medicine 06/02/11 Dawna Patrick Urology 02/10/14 Jose Francisco Broussard MD [address] [facility] [place] [address] Physician Hematology/Oncology 06/27/22 Helen Slade, CAMILLE.DRILL PRESS OPERATOR [address] [facility] [place] [address] Nurse Practitioner Hematology/Oncology 06/27/22 Umer Dale, HITESH [address] [facility] [place] [address] Specialty Outside Medical Sales Representative Hematology/Oncology 06/27/22 Team Status: Active Member Role Status Carola Orosco MD Primary Care Provider Active Team Status: Inactive Member Role Status Carola Orosco MD Primary Care Provider Active Clarence Gregory MD Attending Provider Active 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 Relationship Specialty Start Date End Date Arline Orosco MD PCP - General Family Medicine 06/02/11 Dawna Patrick Urology 02/10/14 Jose Francisco Broussard MD [address] [facility] [place] [address] Physician Hematology/Oncology 06/27/22 Helen Slade, MEAT SPECIALIST.DRILL PRESS OPERATOR [address] [facility] [place] [address] Nurse Practitioner Hematology/Oncology 06/27/22 Umer Dale, HITESH [address] [place] [address] Specialty Outside Medical Sales Representative Hematology/Oncology 06/27/22 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 Relationship Specialty Start Date End Date Arline [place]rosco MD PCP - General Family Medicine 06/02/11 Dawna Patrick Urology 02/10/14 Jose Francisco Broussard MD [address] [facility] [place] [address] Physician Hematology/Oncology 06/27/22 Helen Slade, CAMILLE.DRILL PRESS OPERATOR [address] [facility] [place] [address] Nurse Practitioner Hematology/Oncology 06/27/22 Umer Dale, HITESH [address] [facility] [place] [address] Specialty Outside Medical Sales Representative Hematology/Oncology 06/27/22 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 Relationship Specialty Start Date End Date Arline [place]rosco MD PCP - General Family Medicine 06/02/11 Dawna Patrick Urology 02/10/14 Jose Francisco Broussard MD [address] [facility] [place] [address] Physician Hematology/Oncology 06/27/22 Helen Slade, CAMILLE.DRILL PRESS OPERATOR [address] [facility] [place] [address] Nurse Practitioner Hematology/Oncology 06/27/22 Umer Dale, HITESH [address] [facility] [place] [address] Specialty Outside Medical Sales Representative Hematology/Oncology 06/27/22 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 Relationship Specialty Start Date End Date Arline [place] MD PCP - General Family Medicine 06/02/11 Dawna Patrick Urology 02/10/14 Jose Francisco Broussard MD [address] [facility] [place] [address] Physician Hematology/Oncology 06/27/22 Helen Slade APRN.DRILL PRESS OPERATOR [address] [facility] [place] [address] Nurse Practitioner Hematology/Oncology 06/27/22 Umer Dale, HITESH [address] [facility] [place] [address] Specialty Outside Medical Sales Representative Hematology/Oncology 06/27/22 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 Relationship Specialty Start Date End Date Arline [place]rosco MD PCP - General Family Medicine 06/02/11 Dawna Patrick Urology 02/10/14 Jose Francisco Broussard MD [address] [place] [address] Physician Hematology/Oncology 06/27/22 Helen Slade APRN.DRILL PRESS OPERATOR [address] [facility] [place] [address] Nurse Practitioner Hematology/Oncology 06/27/22 Umer Dale, RN [address] [facility] [place] [address] Specialty Outside Medical Sales Representative Hematology/Oncology 06/27/22 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 Relationship Specialty Start Date End Date Arline [place] MD PCP - General Family Medicine 06/02/11 Dawna Patrick Urology 02/10/14 Jose Francisco Broussard MD [address] [facility] [place] [address] Physician Hematology/Oncology 06/27/22 Helen Slade, MEAT SPECIALIST.DRILL PRESS OPERATOR [address] [facility] [place] [address] Nurse Practitioner Hematology/Oncology 06/27/22 Umer Dale, RN [address] [facility] [place] [address] Specialty Outside Medical Sales Representative Hematology/Oncology 06/27/22 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 Relationship Specialty Start Date End Date Arline [place] MD PCP - General Family Medicine 06/02/11 Dawna Patrick Urology 02/10/14 Jose Francisco Broussard MD [address] [facility] [place] [address] Physician Hematology/Oncology 06/27/22 Helen Slade, MEAT SPECIALIST.DRILL PRESS OPERATOR [address] [facility] [place] [address] Nurse Practitioner Hematology/Oncology 06/27/22 Umer Dale, HITESH [address] [facility] [place] [address] Specialty Outside Medical Sales Representative Hematology/Oncology 06/27/22 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 Relationship Specialty Start Date End Date Arline [place] MD PCP - General Family Medicine 06/02/11 Dawna Patrick Urology 02/10/14 Jose Francisco Broussard MD [address] [facility] [place] [address] Physician Hematology/Oncology 06/27/22 Helen Slade, MEAT SPECIALIST.DRILL PRESS OPERATOR [address] [facility] [place] [address] Nurse Practitioner Hematology/Oncology 06/27/22 Umer Dale, HITESH [address] [facility] [place] [address] Specialty Outside Medical Sales Representative Hematology/Oncology 06/27/22 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 Relationship Specialty Start Date End Date Arline [place] MD PCP - General Family Medicine 06/02/11 Dawna Patrick Urology 02/10/14 Jose Francisco Broussard MD [address] [place] [address] [place] [address] Physician Hematology/Oncology 06/27/22 Helen Slade APRN.DRILL PRESS OPERATOR [address] [facility] [place] [address] Nurse Practitioner Hematology/Oncology 06/27/22 Umer Dale, HITESH [address] [place] [address] [place] [address] Specialty Outside Medical Sales Representative Hematology/Oncology 06/27/22 Goals (unrecognized section and content) Goals may be documented in a n alternate section FOR RECORDS PERTAINING TO PATIENTS WHO ARE OR HAVE BEEN ENROLLED IN A CHEMICAL DEPENDENCY/SUBSTANCEABUSE PROGRAM, SOME INFORMATION MAY BE OMITTED. This clinical summary was aggregated from multiple sources. Caution should be exercised in using it in the provision of clinical care. This summary normalizes information from multiple sources, and as a consequence, information in this document may materially change the coding, format and clinical context of patient data. In addition, data may be omitted in some cases. CLINICAL DECISIONS SHOULD BE BASED ON THE PRIMARY CLINICAL RECORDS. [employer] provides no warranty or guarantee of the accuracy or completeness of information in this document.
--- NOTE | 2023-05-16 13:21 | XR_ITS ---
[facility] [place] [id number] Patient Name: JM BARROW MRN: [id number] date: 1945 Sex: M Assigned Patient Location: ER Current Patient Location: ER Accession/Order Number: [id number] Exam Date: 05/16/2023 13:33 Report Date: 05/16/2023 13:47 At the request of: RAVI ROWE Procedure: XR chest 1V EXAM: XR chest 1V HISTORY: cough COMPARISON: CT chest study dated 03/24/2023 TECHNIQUE: AP view of the chest was obtained with portable technique at 1:30 PM. FINDINGS: Heart and mediastinal contours are unremarkable in appearance. Generalized COPD. No acute infiltrate or consolidations are seen. No obvious pneumothorax. Mild degenerative changes in the dorsal spine with mild convexity of the upper dorsal spine to the left. XR/XR chest 1V IMPRESSION: COPD. No acute infiltrate or consolidation seen. Electronically authenticated by: PATRICK GREER Date: 05/16/2023 13:47
--- NOTE | 2023-05-16 13:22 | ED.URI1 ---
Documented by User: Mally Greenberg 05/16/23 15:36 HPI - URI/Sore Throat General Chief Complaint: Upper Respiratory Infection Stated Complaint: COUGH Time Seen by Provider: 05/16/23 13:21 Source: patient Limitations: no limitations History of Present Illness HPI Narrative: 77 year old male presents to the ED for cough, congestion, fatigue. Onset was 05/11/23. He may have been exposed to Covid-19 on 05/08/23 at a family gathering. Denies fever, SOB, emesis, diarrhea. He completed a course of Levaquin for URI on 05/07/23. Denies pain. His is also ill. He has hx COPD. Related Data Allergies Allergy/AdvReac Type Severity Reaction Status Date / Time No Known Drug Allergies Allergy Verified 05/16/23 13:06 Review of Systems ROS Constitutional Reports: fatigue; Denies: fever or chills Ears, nose, mouth, and throat Denies: throat pain or neck pain Cardiovascular Denies: chest pain Respiratory Reports: shortness of breath, cough and wheezing; Denies: stridor Musculoskeletal Reports: muscle cramps Integumentary/Breast Denies: rash Neurological Denies: headache PFSH PFSH Social History Smoking status: Heavy tobacco smoker Exam Constitutional Vital Signs, click to edit/add: Last Vital Signs Temp 98.1 F 05/16/23 13:02 Pulse 81 05/16/23 13:02 Resp 24 05/16/23 13:02 BP 98/64 05/16/23 13:02 Pulse Ox 100 05/16/23 13:02 O2 Del Method Room Air 05/16/23 13:02 Common normals: no apparent distress and oriented x3 General appearance: cooperative HENMT Nose: external nose normal Mouth: oral and palatal mucosa normal, lip normal and tongue normal Eye Common normals: conjunctivae normal and no scleral icterus Neck & C-Spine Common normals: supple Chest Common normals: inspection of chest normal Chest: symmetrical chest wall rise Respiratory Common normals: normal respiratory effort and no use of accessory muscles Effort & inspection: able to speak in complete sentences and symmetric chest movement Auscultation: clear to auscultation bilaterally Cardio Common normals: regular rate and regular rhythm Neuro Common normals: oriented x3 Sensorium/orientation: awake and alert Course Vital Signs Vital signs: Vital Signs Temperature 98.1 F 05/16/23 13:02 Pulse Rate 81 05/16/23 13:02 Respiratory Rate 24 05/16/23 13:02 Blood Pressure 98/64 05/16/23 13:02 Pulse Oximetry 100 05/16/23 13:02 Oxygen Delivery Method Room Air 05/16/23 13:02 Temperature 98.1 F 05/16/23 13:02 Pulse Rate 81 05/16/23 13:02 Respiratory Rate 24 05/16/23 13:02 Blood Pressure 98/64 05/16/23 13:02 Pulse Oximetry 100 05/16/23 13:02 Oxygen Delivery Method Room Air 05/16/23 13:02 MDM - URI/Sore Throat MDM Narrative Medical decision making narrative: Chest x-ray showed COPD with no acute infiltrate or consolidation. Covid-19 and influenza screens were negative. Follow up with pcp for a recheck, further evaluation and treatment. Return precautions were discussed. Differential Diagnosis Differential diagnosis: Likely upper respiratory infection, viral infection, influenza and other (Covid-19, COPD exacerbation.) Medical Records Attestation: I reviewed the patient's medical records. Lab Data Attestation: I reviewed the patient's lab results. Labs: Lab Results 05/16/23 Range/Units 13:29 SARS-CoV-2 (PCR) Negative (NEGATIVE) Influenza Type A Ag Negative Influenza Type B Ag Negative Imaging Data Chest x-ray: Attestation: I have reviewed the pertinent imaging results. Radiologist's impression: Procedure: XR chest 1V EXAM: XR chest 1V HISTORY: cough COMPARISON: CT chest study dated 03/24/2023 TECHNIQUE: AP view of the chest was obtained with portable technique at 1:30 PM. FINDINGS: Heart and mediastinal contours are unremarkable in appearance. Generalized COPD. No acute infiltrate or consolidations are seen. No obvious pneumothorax. Mild degenerative changes in the dorsal spine with mild convexity of the upper dorsal spine to the left. XR/XR chest 1V IMPRESSION: COPD. No acute infiltrate or consolidation seen. Electronically authenticated by: PATRICK GREER Date: 05/16/2023 13:47 Discharge Plan Discharge Chief Complaint: Upper Respiratory Infection Clinical Impression: Upper respiratory infection, viral Patient Disposition: Home, Self-Care Time of Disposition Decision: 14:39 Condition: Good Mode of Transportation: Private Vehicle Instructions: Upper Respiratory Infection (ED), COPD (Chronic Obstructive Pulmonary Disease) (ED) Additional Instructions: Return to the ER if your condition worsens. Stand Alone Forms: Portal Instructions Referrals: Graeme Read MD [Primary Care Provider] - As soon as possible Discharge Date/Time: 05/16/23 15:08 Documented by User: Clarence Marcus MD 05/16/23 20:00 HPI - URI/Sore Throat General Chief Complaint: Upper Respiratory Infection Stated Complaint: COUGH Time Seen by Provider: 05/16/23 13:21 Related Data Allergies Allergy/AdvReac Type Severity Reaction Status Date / Time No Known Drug Allergies Allergy Verified 05/16/23 13:06 PFSH PFSH Social History Smoking status: Heavy tobacco smoker Exam Constitutional Vital Signs, click to edit/add: Last Vital Signs Temp 98.1 F 05/16/23 13:02 Pulse 81 05/16/23 13:02 Resp 24 05/16/23 13:02 BP 98/64 05/16/23 13:02 Pulse Ox 100 05/16/23 13:02 O2 Del Method Room Air 05/16/23 13:02 Course Vital Signs Vital signs: Vital Signs Temperature 98.1 F 05/16/23 13:02 Pulse Rate 81 05/16/23 13:02 Respiratory Rate 24 05/16/23 13:02 Blood Pressure 98/64 05/16/23 13:02 Pulse Oximetry 100 05/16/23 13:02 Oxygen Delivery Method Room Air 05/16/23 13:02 Temperature 98.1 F 05/16/23 13:02 Pulse Rate 81 05/16/23 13:02 Respiratory Rate 24 05/16/23 13:02 Blood Pressure 98/64 05/16/23 13:02 Pulse Oximetry 100 05/16/23 13:02 Oxygen Delivery Method Room Air 05/16/23 13:02 MDM - URI/Sore Throat MDM Narrative Medical decision making narrative: Chest x-ray showed COPD with no acute infiltrate or consolidation. Covid-19 and influenza screens were negative. Follow up with pcp for a recheck, further evaluation and treatment. Return precautions were discussed. I, Dr Marcus, have reviewed the above progress note and course of action in the ER; agree with the above. I have personally seen and evaluated this patient, gone over history and physical, and discussed disposition and treatment plan with the patient. Lab Data Labs: Lab Results 05/16/23 Range/Units 13:29 SARS-CoV-2 (PCR) Negative (NEGATIVE) Influenza Type A Ag Negative Influenza Type B Ag Negative Discharge Plan Discharge Chief Complaint: Upper Respiratory Infection Clinical Impression: Upper respiratory infection, viral Patient Disposition: Home, Self-Care Time of Disposition Decision: 14:39 Condition: Good Mode of Transportation: Private Vehicle Instructions: Upper Respiratory Infection (ED), COPD (Chronic Obstructive Pulmonary Disease) (ED) Additional Instructions: Return to the ER if your condition worsens. Stand Alone Forms: Portal Instructions Referrals: Graeme Read MD [Primary Care Provider] - As soon as possible Discharge Date/Time: 05/16/23 15:08
[2023-05-16 13:57] LABS: Influenza Virus A Antigen Negative; Influenza Virus B Antigen Negative; Internal Control Within Normal Limits; SARS-CoV-2 Ag NEGATIVE (NEGATIVE)
[2023-05-17 15:09] LABS: SARS-CoV-2 NAA DETECTED (NOT DETECTE)
== END 2023-05-16 15:08 | disposition home or self-care (01) ==
PROVIDERS: Nurse Practitioner Family; Emergency Provider Emergency Medicine; PCP Family Medicine
DX: J06.9 Acute upper respiratory infection, unspecified (principal); R53.83 Other fatigue; F17.200 Nicotine dependence, unspecified, uncomplicated; J44.9 Chronic obstructive pulmonary disease, unspecified
CPT/HCPCS: 71045; 87635; 87804; 87811; 99284

== ENCOUNTER 2023-06-21 14:38 | Outpatient (OUT) | payer MEDICARE, SELFPAY ==
--- NOTE | 2023-06-21 14:47 | XR_ITS ---
The [address] [address] Patient Name: JM BARROW MRN: [id number] date: 1945 Sex: M Assigned Patient Location: LAB Current Patient Location: LAB Accession/Order Number: [id number] Exam Date: 06/21/2023 14:51 Report Date: 06/21/2023 15:10 At the request of: ARLINE [place] Procedure: XR chest 2V EXAM: XR chest 2V HISTORY: Cough R05.9 ; technologist notes state cough and congestion for one week. COMPARISON: Chest radiograph dated 05/16/[address] chest dated 03/24/2023. TECHNIQUE: PA and lateral views of the chest performed. FINDINGS: The trachea is unremarkable. The heart size is within normal limits. Stable moderate atheromatous calcification along the aortic arch. There is no consolidation or infiltrate, pleural effusion or pulmonary vascular congestion. There is no pneumothorax. The bony structures are osteopenic. Stable anterior wedging of several mid thoracic vertebral bodies with resultant moderate kyphosis. Stable discogenic degenerative changes at numerous levels along the spine. XR/XR chest 2V IMPRESSION: There is no acute cardiopulmonary process. Electronically authenticated by: RENAE PRITCHARD Date: 06/21/2023 15:10
== END 2023-06-21 14:39 | disposition home or self-care (01) ==
LOC: LAB 14:42
PROVIDERS: PCP Family Medicine; Visit Provider Family Medicine
DX: R05.9 Cough, unspecified (principal)
CPT/HCPCS: 71046

== ENCOUNTER 2023-06-22 16:12 | Outpatient (REF) | payer MEDICARE, SELFPAY ==
--- OUTSIDE RECORDS SUMMARY | 2023-06-22 16:17 | XMS_ITS | CCD ---
Author Name Unknown Address [address] [place] [address] Organization [facility] Care Team Providers Care Manager Convention Name Role Phone PHYSICIAN, DEFAULT Unavailable Unavailable PHYSICIAN, DEFAULT Unavailable Unavailable Arline Orosco MD Primary Care Provider [phone] Dawna Patrick Unavailable Arline Orosco MD Primary Care Provider [phone] Dawna Patrick Unavailable [phone] Arline Orosco MD Primary Care Provider [phone] Dawna Patrick Unavailable Jose Francisco Broussard MD Unavailable [place] CARRILLONAgathaMATHEMATICAL PHYSICIST, Helen Unavailable Etta PROCTOR, Umer Unavailable [phone] Arline Orosco MD Primary Care Provider [phone] LEROY SHAW Admitting Unavailable LEROY SHAW Consulting Unavailable LEROY SHAW Attending Unavailable KWESI ., DR NUNN Primary Care Unavailable HOY ., DR NUNN Consulting Unavailable HOY ., DR NUNN Attending Unavailable HOY ., DR NUNN Admitting Unavailable HOY ., DR NUNN Primary Care Unavailable DR MEKA HOLT Consulting Unavailable RICHY ROUSSEAU Consulting Unavailable KWESI .DR NUNN Primary Care Unavailable MEGAN, DR DONTE Rocha Attending Unavailable MEGAN, DR DONTE Rocha Admitting Unavailable MEGAN, DR DONTE Rocha Consulting Unavailable KWESI ., DR NUNN Primary Care Unavailable KWESI ., DR NUNN Consulting Unavailable HOY ., DR NUNN Admitting Unavailable HOAlisson ., DR NUNN Attending Unavailable HOY ., [...] Primary Care Unavailable HOY ., DR NUNN Admalexia Unavailable WEST, DR SKINNY Hoyt Consulting Unavailable [...] Unavailable MD Arline Orosco Primary Care Provider [phone] MD Clarence Gregory Attending Provider [phone] Baldo Gifford Referring Unavailable Dr. Arline Orosco Primary Care Unavail able Baldo Gifford Attending Unavailable Baldo Gifford Referring Unavailable Dr. Arline Orosco Primary Care Unavail able Baldo Gifford Attending Unavailable Etta RN, Umer Unavailable [phone] Arline Orosco Primary Care Unavailable Clarence Gregory Admitting Unavailable Clarence Gregory Attending Unavailable Baldo Gifford Attending Unavail able Arline Orosco Primary Care Unavailable Baldo Gifford Admitting Unavail able BARB KIRAN Referring Unavailable ARLINE OROSCO Primary Care Unavailable Ace GUZMAN Referring Unavailable ARLINE OROSCO Primary Care Unavailable Ace GUZMAN Attending Unavailable HOY, ARLINE M Primary Care Unavailable HOY, ARLINE M Primary Care Unavailable JOSE FRANCISCO BROUSSARD Attending Unavailable HOY, ARILNE M Primary Care Unavailable JAMES ROBB Referring Unavailable HOY, ARLINE M Primary Care Unavailable Ace GUZMAN Attending Unavailable HOY, ARLINE M Primary Care Unavailable HOY, ARLINE M Primary Care Unavailable JOSE FRANCISCO BROUSSARD Referring Unavailable HOY, ARLINE M Primary Care Unavailable LOLA ALLEN Attending Unavaila ble HOY, ARLINE M Primary Care Unavailable HOY, ARLINE M Primary Care Unavailable JOSE FRANCISCO BROUSSARD Attending Unavailable HOY, ARLINE M Primary Care Unavailable Ace GUZMAN Referring Unavailable MANNY MEZA Attending Unavailable Ace GUZMAN Referring Unavailable HOY, ARLINE M Primary Care Unavailable HOY, ARLINE M Primary Care Unavailable HOY, ARLINE M Primary Care Unavailable BARB KIRAN Attending Unavailable HOY, ARLINE M Primary Care Unavailable JAMES ROBB Attending Unavailable HOY, ARLINE M Primary Care Unavailable HOY, ARLINE M Primary Care Unavailable Ace GUZMAN Attending Unavailable JOSE FRANCISCO BROUSSARD Attending Unavailable HOY, [...] Care Unavailable JOSE FRANCISCO BROUSSARD Attending Unavailable Ace GUZMAN Attending Unavailable HOY, ARLINE M Primary Care Unavailable MANNY MEZA Referring Unavailable HOY, ARLINE M Primary Care Unavailable JAMES ROBB Attending Unavailable JOSE FRANCISCO BROUSSARD Referring Unavailable HOY, ARLINE M Primary Care Unavailable Allergies Allergy Classification Reported Allergen(s) Allergy Type Date of Onset Reaction(s) Facility (20 sources) Chlorhexidine; Translations: [CHLORHEXIDINE] Drug Allergy 4 Rash [facility] (20 sources) hibaclens [Other] Propensity to adverse reactions 2 Rash [facility] Work Phone: (1 source) Chlorhexidine Drug Allergy 4 [facility] Repository (3 sources) OTHER; Translations: [OTHER] Propensity to adverse reactions (disorder) 2 [facility] Other [place] Repository (1 source) Chlorhexidine Drug Allergy 3 [facility] Repository Medications Current Medications Medication Drug [...] on above: Take 2 tablets by mo [facility]. doxazosin 2 mg oral tablet (20 sources) [...] (Multiple Vitamins) Tablet (1 source) Start: 09-15-19 19 take 1 tablet by mouth once daily Multivitamin (Multiple Vitamins) Tablet Active 1 TAB PO Daily September 14, 2018 12:00am simethicone 125 mg oral tablet (20 sources) Start: 09-15-19 19 take 125 mg by mouth once daily [...] Comment on above: Take 400 Units by [facility] once daily. Completed/Discontinued Medications Medication Drug Class(es) Dates Sig (Normalized) Sig (Original) Acetaminophen / HYDROcodone (7 sources) Opioid Agonist Vicodin TABS JAYCEE E 1 TO 2 TABLETS EVERY 4 TO 6 HOURS NEEDED FOR PAIN. Quantity: 0 Refills: 0 Ordered: 01-Sep-2022 DO Active acetylcholine 10% solution - [facility] (1 source) Start: 03-27-2023 End: 03-27-2023 acetylcholine 10% solution - [facility] [id number] actuat albuterol 0.09 mg/actuat metered dose [...] 1 tablet by mouth once daily Dulcolax [place]mond Laxative 5 MG Oral Tablet Delayed Release [...] (17 sources) Androgen Receptor Inhibitor Start: 06-22-19 take 4 tablets by mouth once daily [...] tablet (10 sources) beta-Adrenergic Gabi End: 09-24-19 take 1 tablet by mouth once daily [...] (20 sources) Nonsteroidal Anti-inflammatory Drug End: 09-24-19 take 1 tablet by mouth twice daily [...] capsule (4 sources) Cholinergic Muscarinic Antagonist Start: tolterodine ER (DETROL LA) 4 mg 24 hr capsule 4 mg. 0 09/14/2018 Active Start: 09-14-2018 take 1 capsule by [facility] once daily Tolterodine (Detrol La) 4 [...] Onset: 03-28-2022 Chronic Other aftercare (1 source) long term care administrator (current) use of aspirin; Translations: [GROUP HOME CURRENT USE OF ASPIRIN] Onset: 08-04-2022 Episodic Other aftercare (1 source) Other usp (current) drug therapy; Translations: [OTH GROUP HOME CURRENT DRUG THERAPY] Onset: 08-04-2022 Episodic Other bone disease and musculoskeletal deformities (5 sources) Other specified disorders of bone density and structure, unspecified site; Translations: [OTH D/O BONE DEN STRUCT UNS SITE] Onset: [...] Test Name Value Interpretation Reference Range Facility [facility] 05-17-2023 CNOV Office Visit (NAVEEDA ) JM BARROW ([id number]) 1945 M Date Time Provider Department 05/17/23 10:30 AM Ace GUZMAN During your visit today, we recorded the following information about you: Temperature Respiration Blood pressure Weight 96.5 degrees 16/minute 122/73 81.5 kg Ace Guzman MD 05/17/2023 12:58 PM Signed Radiation Oncology - Follow Up [...] TUR undergoing surveillance. INTERVAL HISTORY: Doing well. His blood pressure issues have resolved after discontinuing some medicines. Denies any other new problems. Denies any change in bladder function. Has occasional urge related incontinence but generally good function. No dysuria or hematuria. RADIOLOGY: PSMA PET scan 05/12/2023: PSMA positive lesion in the paramedian right [...] year imaging follow-up for AAA is advised. Prostate MRI 08/15/2022: IMPRESSION: Region of asymmetric, [...] neoplastic process PSA HISTORY: PSA Date Value 04/03/2023 0.67 ng/mL 02/21/2023 0.49 ng/mL 12/19/2022 0.48 ng/mL 11/17/2022 0.49 ng/mL 02/03/2014 0.17 ng/mL 11/12/2013 <0.06 07/15/2013 [...] Take 25 mg by mouth once daily. fluticasone-vilanterol (BREO ELLIPTA) 100-25 mcg/dose inhaler Inhale 1 Inhalation as instructed once daily. calcium-cholecalciferol, D3, (OSCAL+D 250) 250 mg-3.125 mcg (125 unit) per tablet Take 1 tablet by mouth once daily. ascorbic acid, vitamin C, (VITAMIN C) 500 mg tablet Take 500 mg by mouth once daily. MULTI-VITAMIN ORAL Take by mouth. tamsulosin (FLOMAX) 0.4 mg Take 0.4 mg [...] Inject 45 mg intramuscularly one time only. pantoprazole DR (PROTONIX) 40 mg tablet Take 40 mg by mouth once daily. oxybutynin (DITROPAN) 5 mg tablet Take 5 mg by mouth twice daily. escitalopram oxalate (LEXAPRO) 20 mg tablet Take 20 mg by mouth once daily. doxazosin mesylate (CARDURA ORAL) Take 6 mg by mouth. PERTINENT REVIEW OF SYSTEMS: Hematuria: none Dysuria: none Incontinence: none Urgency:mild Catheter use: none Medications to aid urination: Yes Bowel movement frequency: 1-3/day Bowel movement quality: normal Blood per rectum: none lupron restarted 01/29 PHYSICAL EXAM: 05/17/23 1024 BP: 122/73 Resp: 16 Temp: (!) 35.8 ?C (96.5 ?F) SpO2: 97% Weight: 81.5 kg (179 lb 10.8 oz) KPS: 100 General appeara (more content not included)... Normal [facility] PET/CT PROSTATE WBon 12-2 TN PET/CT PROSTATE WB * * *Final Report* * * DATE OF EXAM: May 12 2023 3:06PM NRN 0093 - TN PET/CT PROSTATE WB / PROCEDURE REASON: Malignant neoplasm of prostate (HCC) * * * * Physician Interpretation * * * * RESULT: Ga-[id number] PSMA WHOLE BODY PET/CT SCAN HISTORY: Prostate cancer recurrence PREVIOUS COMPARISON PET/CT STUDY: 06/02/2022 OTHER COMPARISON: MRI 08/15/2022, CT abdomen and pelvis 07/09/2013 TECHNIQUE: 10.8 mCi of [id number]. The PET imaging was obtained between skull [...] May 13 2023 9:24P Dictated by: PIPO REGALADO DO This examination was interpreted and the report reviewed and electronically signed by: PIPO REGALADO DO on May 13 2023 10:13PM EST Thank you for allowing us to participate in the care of your patient. Should there be any questions regarding this interpretation, please call [phone]. If you are unable to reach us at the number above, please feel free to contact [facility]iology at [phone]. [id number] Normal [facility] CNOVSPon 04-10-2023 CNOVSP Visit (SP) Office (H EMASA) JM BARROW ([id number]) 1945 M Date Time Provider Department 04/10/23 [...] he was seen by Dr. Robb at [facility] to discuss possible brachytherapy for his localized [...] CATARACT, INSERT LENS,EX Bilateral 06/2019 Dr. Alfa Flann[place], [place] TONSILLECTOMY HX FAMILY HISTORY: FAMILY HISTORY Problem [...] dizziness, gait (more content not included)... Normal [facility] 04-10-2023 CNPN Telephone (TOMMYAP) JM BARROW ([id number]) 1945 M Date Time Provider Department 04/10/23 Ace GUZMAN During your visit today, we recorded the following information about you: Kiera Williamson 04/10/2023 3:28 PM Signed This form is used for MAIN CAMPUS APPOINTMENTS ONLY. Is this request for a Main [place] PET scan appointment? Yes: Technology Applications Teacher: Kiera Trejo Sec Requesting Person Dr guzman: Area Code + Phone/Pager: [phone] Who do we call to schedule this appointment? Other Contact: PSMA pet please message anne browne in [place] Requesting Staff Dr guzman Area Code + Phone/Pager: [phone] PET Orders (A delay in scheduling will [...] NO Send requests to P COORD REVIEW Bernda Berrios 04/11/2023 10:04 AM Signed Authorization number: PSMA Authorization date range: PSMA Primary Insurance: [employer] Diagnosis: Prostate cancer (HCC) [C61] DX Imaging: PET Scan: 06/02/2022 PET Pathology: 02/14/2000 Pelvic lymph node biopsy ([facility], Dr. Doug Regalado) Metastatic prostate adenocarcinoma involving 1 of 3 lymph nodes (right obturator LN) PROSTATE GLAND, LEFT, LEVELS 1-4 , NEEDLE BIOPSIES ([id number], A-D) - PROSTATIC ADENOCARCINOMA, KITA SCORE 7 (4+3). Comment: Adenocarcinoma involves 60% of the needle biopsy specimens. Perineural invasion is present. 2. PROSTATE GLAND, RIGHT, LEVELS 1-4, NEEDLE BIOPSIES ([id number]; E-H) - PROSTATIC ADENOCARCINOMA, KITA SCORE 7 (4+3) 01/20/2000 TRUS prostate biopsy ([facility]) Prostate adenocarcinoma, [place] composite score 8 Labs: PSA 06/02/2022 PSA [...] Radiologist Reviewed: N/A Initial/Subsequent: Subsequent Treatment Strategy: 3 PET Protocol: PSMA Diagnostic Imaging Requested: No Is this a Pretreatment and/or an initial Pet scan: No - Schedule as requested Comments for Simulation Software Engineer: EL: As soon as insurance will allow ROUTE TO SCHEDULERS POOL P PET CRATER AND PACKER [facility] or P [place] SPECIAL STUDIES Brenda Berrios 04/11/2023 10:04 AM Signed Auth#:[id number] Date Range: 04-11-23 to 07-09-2023 65885/PSMA- piflufolastat (Pylarify) F-18 Ace Montoya INS Contact Number: Intake: online Case/Ref#: [id number] Notes: 04/11/2023 Authorized online via [employer] routed to [place] and [place] for scheduling in [place] per patient's request Allergies As of Date: 04/10/2023 Noted Allergy Reaction CHLORHEXIDINE 05/21/2013 2 - Rash hibaclens [Other] 06/02/2011 2 - Rash Date Reviewed: 04/10/2023 Reviewed by: Vidhi Rico - Fully Assessed Reason for Visit: Nm Pet Request [[id number]] Prescriptions as of 04/12/2023 - simvastatin (ZOCOR) [...] Vitamin E, (more content not included)... Normal [facility] PSA [facility]Pl-[facility] 04-03-2023 Prostate specific Ag [Mass/Vol] 0.67 ng/mL Normal <2.60 [facility] Comment on above: Order Comment: Speci men Type: BLOOD SPECIMENOrdering Facility: [facility] Address: [address] [place] [address] Result Comment: Tota l PSA test methodology used is the Electrochemiluminescence Immunoassay by [employer]. Total PSA values by differing methodologies cannot be interchanged. Performed By: #### 2 857-1 ####[facility] [id number] [place] [address] [place] CNOVon 02-23-2023 CNOV Office Visit (HUGO ) JM BARROW ([id number]) 1945 M Date Time Provider Department 02/23/23 1:30 PM Ace GUZMAN During your visit today, we recorded the following information about you: Temperature Pulse Respiration Blood pressure 97.4 degrees 64/minute 16/minute 109/68 Weight 83.5 kg Mali MoraPHYLLIS 03/01/2023 12:41 PM Signed AUA= 12 Ace [...] follow-up with Dr. Shaw. 2 Prostate cancer [place] 8, node positive with prior treatment including pelvic radiation as well as androgen ablative therapy, rad (more content not included)... Normal [facility] PSA [facility] 02-21-2023 Prostate specific Ag [Mass/Vol] 0.49 ng/mL Normal <2.60 [facility] Comment on above: Order Comment: Speci men Type: BLOOD SPECIMENOrdering Facility: [facility] Address: [address] [place] [address] Result Comment: Tota l PSA test methodology used is the Electrochemiluminescence Immunoassay by [employer]. Total PSA values by differing methodologies cannot be interchanged. Performed By: #### 2 857-1 ####[facility] [id number] [address] OF [facility] 25(OH)D3 [facility] 2022 25-hydroxyvitamin D3 [Mass/Vol] 63.9 ng/mL Normal 31.0-80.0 [facility] Comment on above: Order Comment: Speci men Type: BLOOD SPECIMEN [facility] Address: [address] [place] [address] Result Comment: Clas sification of 25 [place] Vitamin D status: Deficiency/Insufficiency: < or = 30 ng/ml. Sufficiency/Optimal Levels: 31-80 ng/mL Toxicity: > 100 ng/mL. Test performed by chemiluminescent immunoassay. Performed By: #### 1 989-3 #### [facility] CLIA [id number] [address] STATES OF [facility] CNOVon 02-15-2023 CNOV Office Visit ([facility] ) JM BARROW ([id number]) 1945 M Date Time Provider Department 02/15/23 9:00 AM BARB KIRAN [facility] During your visit today, we [...] BP may drop by 10-15 points. His able bodied seaman was concerned about autonomic neuropathy; recommending to [...] INSERT LENS,EX Bilateral 06/2019 Dr. Grimm - [place], [place] TONSILLECTOMY HX MEDICATIONS: Current Outpatient Medications [...] Use Smoking (more content not included)... Normal [facility] HbA1c (Bld)on 02-15-2023 Average glucose Estimated from glycated hemoglobin (Bld) [Mass/Vol] 105 mg/dL Normal [facility] Comment on above: Order Comment: [facility] Type: BLOOD SPECIMEN [facility] Address: [address] [place] [address] Result Comment: eAG: (Estimated average glucose) is a calculated value from HgbA1c and is traveling representative of the average blood glucose level in the last 2-3 month period. Performed By: #### 5 5454-3 #### [facility] CLIA [id number] [address] [facility] [address] [id number] [address] [place] HbA1c (Bld) [Mass fraction] 5.3 % Normal 4.3-5.6 [facility] Comment on above: Order Comment: [facility] Type: BLOOD SPECIMEN [facility] Address: [address], [place] [address] Result Comment: Amer ican Diabetes Association guidelines indicate that patients with HgbA1c in the range 5.7-6.4% are at increased risk for development of diabetes, and intervention by lifestyle modification may be beneficial. HgbA1c greater or equal to 6.5% is considered diagnostic of diabetes. Performed By: #### 5 5454-3 #### [facility] CLIA [id number] [address] IMMUNOFIXATION SCREEN, SERUM on 02-15-2023 MPA RESULT No M protein is identified. Normal No M protein is identified. [facility] Comment on above: Order Comment: Speci men Type: BLOOD SPECIMEN [facility] Address: [address] [place] [address] Performed By: #### I FESC #### [facility] CLIA [id number] [address] OF [facility] STAFF REVIEW (MPA) Reviewed by Martin charles MD, Ph.D ([id number]) [facility] Comment on above: Order Comment: Speci men Type: BLOOD SPECIMEN [facility] Address: [address] [place] [address] Performed By: #### I FESC #### [facility] CLIA [id number] [facility] [place] IMMUNOGLOBULINS GAMon 2022 IgA [Mass/Vol] 281 mg/dL Normal 70-400 [facility] Comment on above: Order Comment: Speci men Type: BLOOD SPECIMEN [facility] Address: [address] [place] [address] Performed By: #### S ERIMM #### [facility] CLIA [id number] [facility] [address] [place] IgG [Mass/Vol] 955 mg/dL Normal 700-1600 [facility] Comment on above: Order Comment: Speci men Type: BLOOD SPECIMEN [facility] Address: [address] [place] [address] Performed By: #### S ERIMM #### [facility] CLIA [id number] [facility] [place] [address] [place] IgM [Mass/Vol] 90 mg/dL Normal 40-230 [facility] Comment on above: Order Comment: Speci men Type: BLOOD SPECIMEN [facility] Address: [address] [place] [address] Performed By: #### S ERIMM #### [facility] CLIA [id number] [facility] [place] [address] [place] KAPPA/AREVALO,FREE,SERon 2022 Immunoglobulin light chains.kappa.free (S) [Mass/Vol] 41.1 mg/L High 3.3-19.4 [facility] Comment on above: Order Comment: [facility] Type: BLOOD SPECIMEN [facility] Address: [address] [place] [address] Result Comment: Rare ly, increased serum free light chains levels may not be detected or accurately quantified due to prozone phenomenon or in high viscosity samples using this immunoturbidimetric assay. Correlation with other laboratory results and clinical findings is recommended. The [place] Free Light Chain was performed using the Binding Site Optilite immunoturbidimetric method. Result obtained with different assay methods or kits cannot be used interchangeably. Performed By: #### K LFRS #### [facility] CLIA [id number] [address] [place] [address] [place] Immunoglobulin light chains.kappa/Immun oglobulin light chains.lambda (S) [Mass ratio] 2.00 High 0.26-1.65 [facility] Comment on above: Order Comment: Speci men Type: BLOOD SPECIMEN [facility] Address: [address] [place] [address] Performed By: #### K LFRS #### [facility] CLIA [id number] [address] [place] [address] [place] Immunoglobulin light chains.lambda.free [Mass/Vol] 20.6 mg/L Normal 5.7-26.3 [facility] Comment on above: Order Comment: Speci men Type: BLOOD SPECIMEN [facility] Address: [address] [place] [address] Result Comment: Rare ly, increased serum free [...] interchangeably. Performed By: #### K LFRS #### [facility] CLIA [id number] [address] [place] [address] [place] MONOCLONAL PROT UR W/INTERPo n 02-15-2023 STAFF REVIEW (RUST) Reviewed by Martin Rojo MD, Ph.D ([id number]) Normal [facility] Comment on above: Order Comment: Speci men Type: URINE SPECIMEN [facility] Address: [address] [place] [address] Performed By: #### U RMPA #### [facility] CLIA [id number] [address] [place] [address] [place] UMPA RESULT No M protein is identified. Normal No M protein is identified. [facility] Comment on above: Order Comment: Speci men Type: URINE SPECIMEN [facility] Address: [address] [place] [address] Performed By: #### U RMPA #### [facility] CLIA [id number] [address] [place] [address] [place] Methylmalonate SerPl-sCncon 02-15-2023 Methylmalonate [Moles/Vol] 0.14 umol/L Normal <=0.40 [facility] Comment on above: Order Comment: Speci men Type: BLOOD SPECIMEN [facility] Address: [address] [place] [address] Result Comment: This test was developed and its performance characteristics determined by [facility] [place] [facility] It has not been cleared or approved by the FDA. -[facility] is regulated under CLIA as qualified to perform high-complexity testing. This test is used for clinical purposes. It should not be regarded as investigational or for research. Performed By: #### 1 3964-2 #### [facility] CLIA [id number] [address] [facility] [facility] [id number] OF [facility] Vit B12 [facility] Cobalamin (Vitamin B12) [Mass/Vol] 1889 pg/mL High 232-1245 [facility] Comment on above: Order Comment: Speci men Type: BLOOD SPECIMEN [facility] Address: [address] [place] [address] Performed By: #### 2 132-9 #### [facility] CLIA [id number] [address] [facility] [place], [place] [id number] [place] [address] OF [facility] CNOVon 01-04-2023 CNOV Office Visit ([place] ) JM BARROW ([id number]) 1945 M Date Time Provider Department 01/04/23 1:00 PM JAMES ROBB During your visit today, we recorded the following information about you: Pulse Blood pressure Weight Height 56/minute 168/72 81.6 kg 1.778 m James Robb MD 01/04/2023 1:08 PM Signed PROSTATE CANCER INITIAL VISIT SERVICE DATE: January 04, 2023 PRIMARY CARE PROVIDER: Arline Orosco MD REFERRING PROVIDER: Manny Meza [address] [facility] [address] [place] [id number] Consult requested for an opinion regarding the evaluation and treatment of prostate cancer. My final impression and recommendations will be communicated back to the requesting physician by way of the shared medical record or letter via US mail. I spent 60 minutes in the visit, with more than 50% of the total iizl-do-gwtg time of the visit in counseling / [...] Available Type of Biopsy TRUS Random Biopsy [place]/[facility] unkn Total # of Biopsy Cores [...] CATARACT, INSERT LENS,EX Bilateral 06/2019 Dr. Grimm [place], [place] TONSILLECTOMY HX FAMILY HISTORY Problem Relation [...] once daily. (more content not included)... Normal [facility] 12-28-2022 CNPN Telephone (HEMASA) PERCYJM Dean ([id number]) 1945 M Date Time Provider Department 12/28/22 [...] Fully Assessed Reason for Visit: Care Coordination [2091] Cmt: Radiation Appointment Prescriptions as of 12/28/2022 [...] Encounter Status:Closed by UMER DALE on 12/28/22 [facility] CNOVSPon 12-26-2022 CNOVSP Visit (SP) Office (H EMASA) JM BARROW ([id number]) 1945 M Date Time Provider Department 12/26/22 [...] last visit here he was seen at [facility] by Dr. Meza to evaluate for HIFU, [...] CATARACT, INSERT LENS,EX Bilateral 06/2019 Dr. Alfa [place], [place] TONSILLECTOMY HX FAMILY HISTORY: FAMILY HISTORY Problem [...] itching, pallor, (more content not included)... Normal [facility] PSA SerPl-ncon 12-19-2022 Prostate specific Ag [Mass/Vol] 0.48 ng/mL Normal <2.60 [facility] Comment on above: Order Comment: Speci men Type: BLOOD SPECIMENOrdering Facility: [facility] Address: [address] [place] [address] Result Comment: Anali barboza PSA test methodology used is the Electrochemiluminescence Immunoassay by [employer]. Total PSA values by differing methodologies cannot be interchanged. Performed By: #### 2 857-1 ####[facility] LABCLIA [id number] [address] [place] CNOVon 12-07-2022 CNOV Office Visit (UROLMN ) JM BARROW ([id number]) 1945 M Date Time Provider Department 12/07/22 3:00 PM MANNY MEZA During your visit today, we recorded the following information about you: Pulse Blood pressure Weight Height 76/minute 108/63 79.8 kg 1.829 m Ina Christianson MA 12/07/2022 2:59 PM Signed PATIENT PVR READING 0mL Manny Meza MD 12/07/2022 3:33 PM Signed PATIENT: Jm Barrow [id number] REFERRING MD: Ace Guzman NEW PATIENT VISIT [...] male who presents with a history of [place] 8 prostate cancer, node positive- s/p abdominal exploration, pelvic and prostate radiation 2000, 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 To have cystolitholapaxy in December. Currently having obstructive urinary symptoms but at baseline without bothersome urinary symptoms. Per Dr. 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 11/17/2022 PSA 0.49 11/24/2022 Met with [facility] Dr. 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 Grimm [place], [place] TONSILLECTOMY HX Medications Current Outpatient Medications [...] respiratory di (more content not included)... Normal [facility] URINALYSIS, REFLEX MICROSCOP ICon 12-07-2022 Bacteria LM.HPF (Urine sed) [#/Area] Few Abnormal None Seen [facility] Comment on above: Order Comment: Speci men Type: URINE SPECIMENOrdering Facility: [facility] Address: [address] [place] [address] Performed By: #### L [id number] ####[facility] LABCLIA [id number] [place] [address] [place] Bilirubin Ql (U) Negative Normal Negative [facility] Comment on above: Order Comment: Speci men Type: URINE SPECIMENOrdering Facility: [facility] Address: [address] [place] [address] Performed By: #### L [id number] ####[facility] LABCLIA [id number] [place] [address] [place] Clarity (Unsp spec) Cloudy Abnormal Clear [facility] Comment on above: Order Comment: Speci men Type: URINE SPECIMENOrdering Facility: [facility] Address: [address] [place] [address] Performed By: #### L [id number] ####[facility] LABCLIA [id number] [place] [address] [place] Color (U) Yellow Normal Yellow [facility] Comment on above: Order Comment: Speci men Type: URINE SPECIMENOrdering Facility: [facility] Address: [address] [place] [address] Performed By: #### L [id number] ####[facility] LABCLIA [id number] [place] [address] [place] Epithelial cells LM.HPF (Urine sed) [#/Area] Few Normal [facility] Comment on above: Order Comment: Speci men Type: URINE SPECIMENOrdering Facility: [facility] Address: [address] [place] [address] Performed By: #### L [id number] ####[facility] LABCLIA [id number] [place] [address] [place] Glucose Test strip (U) [Mass/Vol] Negative Normal Trace, Negative [facility] Comment on above: Order Comment: Speci men Type: URINE SPECIMENOrdering Facility: [facility] Address: [address] [place] [address] Performed By: #### L [id number] ####[facility] LABCLIA [id number] [place] [address] [place] Hemoglobin Ql (U) Negative Normal Negative, Trace [facility] Comment on above: Order Comment: Speci men Type: URINE SPECIMENOrdering Facility: [facility] Address: [address] [place] [address] Performed By: #### L [id number] ####[facility] LABCLIA [id number] [place] [address] [place] Hyaline casts (Urine sed) [#/Area] 1-3 /LPF Abnormal 0 /LPF [facility] Comment on above: Order Comment: Speci men Type: URINE SPECIMENOrdering Facility: [facility] Address: [address] [place] [address] Performed By: #### L [id number] ####[facility] LABCLIA [id number] [place] [address] [place] Ketones Ql (U) Negative Normal Negative, Trace [facility] Comment on above: Order Comment: Speci men Type: URINE SPECIMENOrdering Facility: [facility] Address: [address] [address] Performed By: #### L [id number] ####[facility] LABIA [id number] [place] [address] [place] [facility] Leukocyte esterase Test strip Ql (U) 500 Akil/uL Abnormal Negative, 25 Akil/uL [facility] Comment on above: Order Comment: Speci men Type: URINE SPECIMENOrdering Facility: [facility] Address: [address] [place] [address] Performed By: #### L [id number] ####[facility] LABIA [id number] [place] [address] [place] Nitrite Ql (U) Negative Normal Negative [facility] Comment on above: Order Comment: Speci men Type: URINE SPECIMENOrdering Facility: [facility] Address: [address] [place] [address] Performed By: #### L [id number] ####[facility] LABIA [id number] [place] [address] [place] pH (U) 6.0 [pH] Normal 5.0-8.0 [facility] Comment on above: Order Comment: Speci men Type: URINE SPECIMENOrdering Facility: [facility] Address: [address] [place] [address] Performed By: #### L [id number] ####[facility] LABIA [id number] [place] [address] [place] Protein (U) [Mass/Vol] Trace Normal Trace, Negative [facility] Comment on above: Order Comment: Speci men Type: URINE SPECIMENOrdering Facility: [facility] Address: [address] [place] [address] Performed By: #### L [id number] ####[facility] LABIA [id number] [place] [address] [place] RBC LM.HPF (Urine sed) [#/Area] 3-5 /HPF Abnormal 0-3 /HPF [facility] Comment on above: Order Comment: Speci men Type: URINE SPECIMENOrdering Facility: [facility] Address: [address] [place] [address] Performed By: #### L [id number] ####[facility] LABCLIA [id number] [address] [place] Specific gravity (U) [Rel density] 1.024 Normal 1.005-1.030 [facility] Comment on above: Order Comment: Speci men Type: URINE SPECIMENOrdering Facility: [facility] Address: [address] [place] [address] Performed By: #### L [id number] ####[facility] LABCLIA [id number] [address] [place] Urobilinogen Ql (U) Negative Normal Negative [facility] Comment on above: Order Comment: Speci men Type: URINE SPECIMENOrdering Facility: [facility] Address: [address] [place] [address] Performed By: #### L [id number] ####[facility] LABCLIA [id number] [place] [address] [place] WBC LM.HPF (Urine sed) [#/Area] /[HPF] Abnormal 0-5 /HPF [facility] Comment on above: Order Comment: Speci men Type: URINE SPECIMENOrdering Facility: [facility] Address: [address] [place] [address] Performed By: #### L [id number] ####[facility] LABCLIA [id number] [place] [address] [place] Bacteria LM.HPF (Urine sed) [#/Area] Few Abnormal None Seen /HPF [facility] Bilirubin Ql (U) Negative Negative [facility] Clarity (Unsp spec) Cloudy Abnormal Clear [facility] Color (U) Yellow Yellow [facility] Epithelial cells LM.HPF (Urine sed) [#/Area] Few [facility] Glucose Test strip (U) [Mass/Vol] Negative Trace, Negative [facility] Hemoglobin Ql (U) Negative Negative, Trace [facility] Hyaline casts (Urine sed) [#/Area] 1-3 /LPF Abnormal 0 /LPF [facility] Ketones Ql (U) Negative Negative, Trace [facility] Leukocyte esterase Test strip Ql (U) 500 Akil/uL Abnormal Negative, 25 Akil/uL [facility] Nitrite Ql (U) Negative Negative [facility] pH (U) 6.0 [pH] 5.0 - 8.0 [facility] Protein (U) [Mass/Vol] Trace Trace, Negative [facility] RBC LM.HPF (Urine sed) [#/Area] 3-5 /HPF Abnormal 0-3 /HPF [facility] Specific gravity (U) [Rel density] 1.024 1.005 - 1.030 [facility] Urobilinogen Ql (U) Negative Negative [facility] WBC LM.HPF (Urine sed) [#/Area] /[HPF] Abnormal 0-5 /HPF [facility] CNOVon 11-24-2022 CNOV Office Visit (RADTSA ) PUSHPAJM ([id number]) 1945 M Date Time Provider Department 11/24/22 [...] 2. 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 Normal [facility] PSA SerPl-mCncon 11-17-2022 Prostate specific Ag [Mass/Vol] 0.49 ng/mL Normal <2.60 [facility] Comment on above: Order Comment: Speci men Type: BLOOD SPECIMENOrdering Facility: [facility] Address: [address] [id number] Result Comment: Tota l PSA test methodology used is the Electrochemiluminescence Immunoassay by [employer]. Total PSA values by differing methodologies cannot be interchanged. Performed By: #### 2 857-1 ####[facility] LABCLIA [id number] [facility] [id number] [place] [address] [place] Office Visit (Cardiology)on 10-18-2022 Follow-up visit Diagnoses/Problems Assessed Essential hypertension, benign (401.1) (I10) Current every day smoker (305.1) (F17.200) 1 PPD Chronic obstructive pulmonary disease, unspecified COPD type (496) (J44.9) Body mass index (BMI) of 24.0 to 24.9 in adult (V85.1) (Z68.24) Orders SocHx: Current every day smoker Tobacco Use Screening; Status:Complete; Done: [id number] You need to quit smoking.; Status:Complete - Retrospective Authorization; Done: [id number] Patient Instructions Please bring all medicines, vitamins, and herbal supplements with you when you come to the office. Prescriptions will not be filled unless you are compliant with your follow up appointments or have a follow up appointment scheduled as per instruction of your physician. Refills should be requested at the time of your visit. Follow up in 2-3 [facility] Chief Complaint JM BARROW is being [...] 1 TABLET DAILY DIRECTED AT BEDTIME Dulcolax [place] Laxative 5 MG Oral Tablet Delayed ReleaseTAKE [...] Medication No Known Drug Allergies Recorded By: nAgi Monreal; 09/01/2022 12:53:49 PM Social History Problems [...] Signs Recorded: 18Oct2022 10:13AMRecorded: 18Oct2022 09:54AM Systolic Epxptrk24, RUE, Sitting Diastolic Rbcvfyh09, RUE, Sitting Systolic Ctrujscg23, RUE, Standing Diastolic Iaredfem36, RUE, Standing Heart Rate Keczhqf00, R Radial Heart Rate Kdhcbydj90, R Radial Heart Rate58, R Radial Bklmwnpn46, LUE, Sitting Icpukjorm44, LUE, Sitting Height6 ft Fobfcf241 lb BMI Ejvvolwcbb61.82 kg/m2 BSA Calculated2.05 Tobacco Usea) Yes Patient encouraged to stop using tobacco productsYes Falls Screening (more content not included)... Normal [employer] Tobacco Screening.on 023 Fall risk assessment a) No falls within the last year [facility] Alekto DO Work Phone: Tobacco use status [facility] a) Yes [facility] [employer] [facility] [employer] Work Phone: Tobacco Screening. Yes [facility] [employer] DO Work Phone: CNOVSPon 09-22-2022 CNOVSP Visit (SP) Office (H EMASA) JM BARROW ([id number]) 1945 M Date Time Provider Department 09/22/22 [...] CATARACT, INSERT LENS,EX Bilateral 06/2019 Dr. Grimm [facility], [place] TONSILLECTOMY HX FAMILY HISTORY: FAMILY HISTORY Problem [...] GI: Negati (more content not included)... Normal [facility] CBC W Auto Differential pane l (Bld)on 09-20-2022 Basophils (Bld) [#/Vol] 0.06 10*3/uL Normal <0.11 [facility] Comment on above: Order Comment: Speci men Type: BLOOD SPECIMENOrdering Facility: [facility] Address: [address] [address] Performed By: #### 5 7021-8 ####[facility] LABCLIA [id number] [place] [address] Basophils/100 WBC (Bld) 0.9 % Normal [facility] Comment on above: Order Comment: Speci men Type: BLOOD SPECIMENOrdering Facility: [facility] Address: [address] [address] Performed By: #### 5 7021-8 ####[facility] LABCLIA [id number] [place] [address] Differential cell count method Nom (Bld) Auto Normal [facility] Comment on above: Order Comment: Isabeli men Type: BLOOD SPECIMENOrdering Facility: [facility] Address: [address] [address] Performed By: #### 5 7021-8 ####[facility] LABCLIA [id number] [place] [address] Eosinophils (Bld) [#/Vol] 0.46 10*3/uL High <0.46 [facility] Comment on above: Order Comment: Speci men Type: BLOOD SPECIMENOrdering Facility: [facility] Address: [address] [place] [address] Performed By: #### 5 7021-8 ####[facility] LABCLIA [id number] [place] [address] Eosinophils/100 WBC (Bld) 6.9 % Normal [facility] Comment on above: Order Comment: Speci men Type: BLOOD SPECIMENOrdering Facility: [facility] Address: [address] [place] [address] Performed By: #### 5 7021-8 ####[facility] LABCLIA [id number] [place] [address] Erythrocyte distribution width (RBC) [Ratio] 12.3 % Normal 11.5-15.0 [facility] Comment on above: Order Comment: Speci men Type: BLOOD SPECIMENOrdering Facility: [facility] Address: [address] [place] [address] Performed By: #### 5 7021-8 ####[facility] LABCLIA [id number] [place] [address] Hematocrit (Bld) [Volume fraction] 42.2 % Normal 39.0-51.0 [facility] Comment on above: Order Comment: Speci men Type: BLOOD SPECIMENOrdering Facility: [facility] Address: [address] [place] [address] Performed By: #### 5 7021-8 ####[facility] LABCLIA [id number] [place] [address] Hemoglobin (Bld) [Mass/Vol] 14.4 g/dL Normal 13.0-17.0 [facility] Comment on above: Order Comment: Speci men Type: BLOOD SPECIMENOrdering Facility: [facility] Address: [address] [address] Performed By: #### 5 7021-8 ####[facility] LABCLIA [id number] [place] [address] Immature granulocytes (Bld) [#/Vol] 10*3/uL Normal <0.10 [facility] Comment on above: Order Comment: Speci men Type: BLOOD SPECIMENOrdering Facility: [facility] Address: [address] [address] Performed By: #### 5 7021-8 ####[facility] LABCLIA [id number] [place] [address] Immature granulocytes/100 WBC (Bld) 0.3 % Normal [facility] Comment on above: Order Comment: Speci men Type: BLOOD SPECIMENOrdering Facility: [facility] Address: [address] [place] [address] Performed By: #### 5 7021-8 ####[facility] LABCLIA [id number] [place] [address] Lymphocytes (Bld) [#/Vol] 1.95 10*3/uL Normal 1.00-4.00 [facility] Comment on above: Order Comment: Speci men Type: BLOOD SPECIMENOrdering Facility: [facility] Address: [address] [place] [address] Performed By: #### 5 7021-8 ####[facility] LABCLIA [id number] [place] [address] Lymphocytes/100 WBC (Bld) 29.2 % Normal [facility] Comment on above: Order Comment: Speci men Type: BLOOD SPECIMENOrdering Facility: [facility] Address: [address] [place] [address] Performed By: #### 5 7021-8 ####[facility] LABCLIA [id number] [place] [address] MCH (RBC) [Entitic mass] 31.7 pg Normal 26.0-34.0 [facility] Comment on above: Order Comment: Speci men Type: BLOOD SPECIMENOrdering Facility: [facility] Address: [address] [place] [address] Performed By: #### 5 7021-8 ####[facility] LABCLIA [id number] [place] [address] MCHC (RBC) [Mass/Vol] 34.1 g/dL Normal 30.5-36.0 [facility] Comment on above: Order Comment: Speci men Type: BLOOD SPECIMENOrdering Facility: [facility] Address: [address] [place] [address] Performed By: #### 5 7021-8 ####[facility] LABIA [id number] [place] [address] MCV (RBC) [Entitic vol] 93.0 fL Normal 80.0-100.0 [facility] Comment on above: Order Comment: Speci men Type: BLOOD SPECIMENOrdering Facility: [facility] Address: [address] [place] [address] Performed By: #### 5 7021-8 ####[facility] LABCLIA [id number] [place] [address] Monocytes (Bld) [#/Vol] 0.75 10*3/uL Normal <0.87 [facility] Comment on above: Order Comment: Speci men Type: BLOOD SPECIMENOrdering Facility: [facility] Address: [address] [place] [address] Performed By: #### 5 7021-8 ####[facility] LABIA [id number] [place] [address] Monocytes/100 WBC (Bld) 11.2 % Normal [facility] Comment on above: Order Comment: Speci men Type: BLOOD SPECIMENOrdering Facility: [facility] Address: [address] [place], [place] [phone] Performed By: #### 5 7021-8 ####[facility] LABCLIA [id number] [place] [address] Neutrophils (Bld) [#/Vol] 3.44 10*3/uL Normal 1.45-7.50 [facility] Comment on above: Order Comment: Speci men Type: BLOOD SPECIMENOrdering Facility: [facility] Address: [address] [place] [address] Performed By: #### 5 7021-8 ####[facility] LABCLIA [id number] [place] [address] Neutrophils/100 WBC (Bld) 51.5 % Normal [facility] Comment on above: Order Comment: Speci men Type: BLOOD SPECIMENOrdering Facility: [facility] Address: [address] [place] [address] Performed By: #### 5 7021-8 ####[facility] LABCLIA [id number] [place] [address] Nucleated RBC (Bld) [#/Vol] 10*3/uL Normal <0.01 [facility] Comment on above: Order Comment: Speci men Type: BLOOD SPECIMENOrdering Facility: [facility] Address: [address] [place] [address] Performed By: #### 5 7021-8 ####[facility] LABCLIA [id number] [place] [address] Nucleated RBC/100 WBC (Bld) [Ratio] 0.0 /100 WBC Normal [facility] Comment on above: Order Comment: Speci men Type: BLOOD SPECIMENOrdering Facility: [facility] Address: [address] [place] [address] Performed By: #### 5 7021-8 ####[facility] LABCLIA [id number] [place] [address] Platelet mean volume (Bld) [Entitic vol] 9.4 fL Normal 9.0-12.7 [facility] Comment on above: Order Comment: Speci men Type: BLOOD SPECIMENOrdering Facility: [facility] Address: [address] [place] [address] Performed By: #### 5 7021-8 ####[facility] LABCLIA [id number] [place] [address] Platelets (Bld) [#/Vol] 236 10*3/uL Normal 150-400 [facility] Comment on above: Order Comment: Speci men Type: BLOOD SPECIMENOrdering Facility: [facility] Address: [address] [place] [address] Performed By: #### 5 7021-8 ####[facility] LABIA [id number] [place] [address] RBC (Bld) [#/Vol] 4.54 10*6/uL Normal 4.20-6.00 [facility] Comment on above: Order Comment: Speci men Type: BLOOD SPECIMENOrdering Facility: [facility] Address: [address] [place] [address] Performed By: #### 5 7021-8 ####[facility] LABIA [id number] [place] [address] WBC (Bld) [#/Vol] 6.68 10*3/uL Normal 3.70-11.00 [facility] Comment on above: Order Comment: Speci men Type: BLOOD SPECIMENOrdering Facility: [facility] Address: [address] [place] [address] Performed By: #### 5 7021-8 ####[facility] LABIA [id number] [place] [address] Comprehensive metabolic 2000 panelon 09-20-2022 Albumin [Mass/Vol] 4.4 g/dL Normal 3.9-4.9 [facility] [place] Comment on above: Order Comment: Speci men Type: BLOOD SPECIMENOrdering Facility: [facility] Address: [address] [address] Performed By: #### 2 4323-8 ####[facility] LABCLIA [id number] [place] [address] ALP [Catalytic activity/Vol] 59 U/L Normal 38-113 [facility] Comment on above: Order Comment: Speci men Type: BLOOD SPECIMENOrdering Facility: [facility] Address: [address] [address] Performed By: #### 2 4323-8 ####[facility] LABCLIA [id number] [place] [address] ALT [Catalytic activity/Vol] 9 U/L Low 10-54 [facility] Comment on above: Order Comment: Speci men Type: BLOOD SPECIMENOrdering Facility: [facility] Address: [address] [place] [address] Performed By: #### 2 4323-8 ####[facility] LABCLIA [id number] [place] [address] Anion gap [Moles/Vol] 6 mmol/L Low 9-18 [facility] Comment on above: Order Comment: Speci men Type: BLOOD SPECIMENOrdering Facility: [facility] Address: [address] [place] [address] Performed By: #### 2 4323-8 ####[facility] LABCLIA [id number] [place] [address] AST [Catalytic activity/Vol] 15 U/L Normal 14-40 [facility] Comment on above: Order Comment: Speci men Type: BLOOD SPECIMENOrdering Facility: [facility] Address: [address] [place] [address] Performed By: #### 2 4323-8 ####[facility] LABCLIA [id number] [place] [address] Bilirubin [Mass/Vol] 0.4 mg/dL Normal 0.2-1.3 [facility] Comment on above: Order Comment: Speci men Type: BLOOD SPECIMENOrdering Facility: [facility] Address: [address] [address] Performed By: #### 2 4323-8 ####[facility] LABCLIA [id number] [place] [address] Calcium [Mass/Vol] 11.0 mg/dL High 8.5-10.2 [facility] [place] Comment on above: Order Comment: Speci men Type: BLOOD SPECIMENOrdering Facility: [facility] Address: [address] [place] [address] Performed By: #### 2 4323-8 ####[facility] LABCLIA [id number] [place] [address] Chloride [Moles/Vol] 99 mmol/L Normal 97-105 [facility] Comment on above: Order Comment: Speci men Type: BLOOD SPECIMENOrdering Facility: [facility] Address: [address] [place] [address] Performed By: #### 2 4323-8 ####[facility] LABCLIA [id number] [place] [address] CO2 [Moles/Vol] 34 mmol/L High 22-30 [facility] Comment on above: Order Comment: Speci men Type: BLOOD SPECIMENOrdering Facility: [facility] Address: [address] [place] [address] Performed By: #### 2 4323-8 ####[facility] LABCLIA [id number] [place] [address] Creatinine [Mass/Vol] 0.94 mg/dL Normal 0.73-1.22 [facility] Comment on above: Order Comment: Speci men Type: BLOOD SPECIMENOrdering Facility: [facility] Address: [address] [place] [address] Performed By: #### 2 4323-8 ####[facility] LABCLIA [id number] [place] [address] ESTIMATED GLOMERULAR FILTRATION RATE 85 mL/min/1.73m??? Normal >=60 [facility] Comment on above: Order Comment: Aroldo rahman Type: BLOOD SPECIMENOrdering Facility: [facility] Address: [address] [place] [address] Result Comment: Jessica mated Glomerular Filtration Rate [...] actual GFR. Performed By: #### 2 4323-8 ####[facility] LABCLIA [id number] [place] [address] Glucose [Mass/Vol] 96 mg/dL Normal 74-99 [facility] [place] Comment on above: Order Comment: Aroldo rahman Type: BLOOD SPECIMENOrdering Facility: [facility] Address: [address] [place] [address] Result Comment: The [place] Diabetes Association (ADA) provides guidance for cutoff [...] Standards of Medical Care in Diabetes 2016, [place] [employer] Association. Diabetes Care. 2016.39(Suppl 1). Performed By: #### 2 4323-8 ####[facility] LABCLIA [id number] [place] [address] Potassium [Moles/Vol] 4.1 mmol/L Normal 3.7-5.1 [facility] Comment on above: Order Comment: Speci men Type: BLOOD SPECIMENOrdering Facility: [facility] Address: [address] [place] [address] Performed By: #### 2 4323-8 ####[facility] LABCLIA [id number] [place] [address] Protein [Mass/Vol] 7.2 g/dL Normal 6.3-8.0 [facility] [place] Comment on above: Order Comment: Speci men Type: BLOOD SPECIMENOrdering Facility: [facility] Address: [address] [place] [address] Performed By: #### 2 4323-8 ####[facility] LABCLIA [id number] [place] [address] Sodium [Moles/Vol] 139 mmol/L Normal 136-144 [facility] Comment on above: Order Comment: Speci men Type: BLOOD SPECIMENOrdering Facility: [facility] Address: [address] [place] [address] Performed By: #### 2 4323-8 ####[facility] LABCLIA [id number] [place] [address] Urea nitrogen [Mass/Vol] 26 mg/dL High 9-24 [facility] Comment on above: Order Comment: Speci men Type: BLOOD SPECIMENOrdering Facility: [facility] Address: [address] [place] [address] Performed By: #### 2 4323-8 ####[facility] LABCLIA [id number] [place] [address] PSA [facility] 09-20-2022 Prostate specific Ag [Mass/Vol] 0.38 ng/mL Normal <2.60 [facility] Comment on above: Order Comment: Speci men Type: BLOOD SPECIMENOrdering Facility: [facility] Address: [address] [place] [address] Result Comment: Tota l PSA test methodology used is the Electrochemiluminescence Immunoassay by [employer]. Total PSA values by differing methodologies cannot be interchanged. Performed By: #### 2 857-1 ####[facility] LABCLIA [id number] [facility] [id number] [place], [place] [id number] [place] angio abdomenon [address] angio abdomen [facility] [address] [place] [address] [place] [address] CT Scan Report Signed Patient: Jm Barrow JR MR#: [id number] : 1945 Acct:[id number] Age/Sex: 76 / M ADM Date: 09/13/22 Loc: CT Room: Type: [facility] Attending Dr: Baldo Gifford MD Copies to: Baldo Gifford MD Ordering [...] Cholelithiasis. Impression dictated by: Yoel Hagan Jr., Edd09/13/2022 3:38 PM Dictation Location: [place] [address] Transcribed By: [facility] 09/13/22 1538 Dictated By: Yoel Hagan Jr, DO 09/13/22 1532 Signed By: 09/13/22 1538 Normal [facility] Cortisolon 09-13-2022 Cortisol 7.9 ug/dL Normal [facility] Comment on above: Result Comment: Refe rence range: AM 6 - 24 ug/dl PM <10 ug/dl PERFORMED BY: [address] [address] PATHOLOGIST [employer] GEORGINA XIAO M.D. Performed By: #### C ORT #### [address] No Panel Informationon 09-13 Normal -[facility] [address] DO Work Phone: 7.9\S\7.9 Normal [facility] [address] DO Work Phone: Comment on above: Reference range: AM 6 - 24 ug/dl PM <10 ug/dlPERFORMED BY:[address] [place], [place] [id number] MEDICAL DIRECTORGEORGINA XIAO M.D. US carotid doppler BIon 08-14 US carotid doppler [facility] [address] [place] [address] [place] [address] Ultrasound Report Signed Patient: Jm Barrow JR MR#: [id number] : 1945 Acct:[id number] Age/Sex: 76 / M ADM Date: 09/02/22 Loc: Room: Type: [facility] Attending Dr: Clarence Gregory MD Ordering Provider: [...] Clarence Gregory M.D.09/03/2022 11:15 AM Dictation Location: [facility]04 Tech: Barb Wesley Transcribed By: KELLY 09/03/22 111 Dictated By: Clarence Gregory MD 09/03/221113 Signed By: 09/03/221114 [facility] Office Visit (Cardiology)on 09-01-2022 Follow-up [...] Abdomen; Status:Hold For - Scheduling,Retrospective Authorization; Requested for:[id number]; Patient taking Metformin or Derivatives? : No Radiologist to Determine Optimal Study : Y What are the patient's signs and symptoms? : htn CT Angio Pelvis; Status:Hold For - Scheduling,Retrospective Authorization; Requested for:[id number]; Patient taking Metformin or Derivatives? : No [...] we can help. You may also call [phone] for free resources and assistance.; Status:Complete - Retrospective Authorization; Done: 01Sep2022 Tobacco Use Screening; Status:Complete; Done: 01Sep2022 Unlinked Stop: hydroCHLOROthiazide 25 MG Oral Tablet [...] I will today evaluate his possibility of [place]'s disease. In the future we may consider [...] TABLET TWICE (more content not included)... Normal [employer] Tobacco Screening.on 023 Adult depression screening assessment No [facility] [employer] 250 DO Work Phone: Fall risk assessment a) No falls within the last year [facility] [employer] 250 DO Work Phone: Tobacco use status CP a) Yes [facility] [employer] 250 DO Work Phone: Tobacco Screening. Yes [facility] [employer] 250 DO Work Phone: CNOVon 08-18-2022 CNOV Office Visit (RADTSA ) PUSHPAJM ([id number]) 1945 M Date Time Provider Department 08/18/22 1:00 PM Ace GUZMAN During your visit today, we recorded the following information about you: Temperature Pulse Respiration Blood pressure 98 degrees 61/minute 16/minute 90/54 Weight 81.6 kg Mali Mora LPN 08/25/2022 1:52 PM Signed AUA=10 Ace Guzman MD 08/25/2022 1:52 PM Signed Radiation [...] follow-up with his urologist. 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 Normal [facility] HEALTHon 08-15-2022 [facility] HNO ID: [id number] Author: RT Alyssia(R) Service: Radiology Author Type: [...] RT Alyssia(R) August 15, 2022 1:43 PM Normal [facility] MRI PROSTATE WO/W IVCONon MRI PROSTATE WO/W IVCON * * *Final Report* * * DATE OF EXAM: Aug 15 2022 1:44PM [facility] 0751 - MRI PROSTATE WO/W IVCON / PROCEDURE REASON: Cancer of prostate w/med recur risk (T2b-c or [place]ita 7 or PSA 10-20) (HCC) * * * * Physician Interpretation [...] volume were obtained using a semi-automated software ([employer]). CONTRAST: IV: 16 cc of Dotarem. COMPARISON: [...] of suspicion for clinically significant prostate cancer ([place] score 3 + 4 or higher). PI-RADS v2.1 Assessment Categories: PI-RADS 1: Clinically significant cancer is highly unlikely PI-RADS 2: Clinically significant cancer is unlikely PI-RADS 3: Clinically significant cancer is equivocal PI-RADS 4: Clinically significant cancer is likely PI-RADS 5: Clinically significant cancer is highly likely [employer] Machine Tender: IVA Transcribe Date/Time: Aug 15 2022 2:35P Dictated by : SARAI AYERS DO This examination was interpreted and the report reviewed and electronically signed by: CINTIA SOLORZANO MD on Aug 15 2022 5:43PM EST [id number] Normal [facility] NURSING PROGon 08-15-2022 NURSING PROG HNO ID: [id number] Author: Keila Hsu RN Service: PICC Team [...] DATE: August 15, 2022 TIME: 12:43 PM [facility] CBC AUTO DIFFon 08-01-2022 BASO # 0.1 103/ul Normal 0.0-0.1 [facility] Comment on above: Performed By: #### C SORAIDA ONOFRE #### [facility] [address] [address] [address] Samantha Samuels Basophils/100 WBC (Bld) 1.0 % Normal 0.2-2.0 [facility] Comment on above: Performed By: #### C SORAIDA ONOFRE #### [facility] [address] [place] [address] Dr. Samantha Samuels EO # 0.5 103/ul Normal 0.0-0.7 [facility] Comment on above: Performed By: #### C JEMIMA, CMADM #### [facility] [address] [place] [address] Dr. Samantha Samuels Eosinophils/100 WBC (Bld) 7.9 % Critically high 0.9-7.0 [facility] Comment on above: Performed By: #### C JEMIMA, CMADM #### [facility] [address] [place] [address] Dr. Samantha Samuels Erythrocyte distribution width (RBC) [Ratio] 12.8 % Normal 11.0-15.0 [facility] Comment on above: Performed By: #### C JEMIMA, CMADM #### [facility] [address] [place] [address] Dr. Samantha Samuels Hematocrit (Bld) [Volume fraction] 40.1 % Critically low 42.0-54.0 [facility] Comment on above: Performed By: #### C JEMIMA, PHYLLISDM #### [facility] [address] [place] [address] Dr. Samantha Samuels Hemoglobin (Bld) [Mass/Vol] 13.9 g/dL Critically low 14.0-18.0 [facility] Comment on above: Performed By: #### C JEMIMA, CMADM #### [facility] [address] [place] [address] Dr. Samantha Samuels IG # 0.01 10e3/ul Normal 0.00-0.03 [facility] Comment on above: Performed By: #### C JEMIMA, CMADM #### [facility] [address] [place] [address] Dr. Samantha Samuels IG % 0.2 % Normal 0.0-0.5 [facility] Comment on above: Performed By: #### C JEMIMA, CMADM #### [facility] [address] [place] [address] Dr. Samantha Samuels LYMPH # 1.8 103/ul Normal 1.2-3.8 [facility] Comment on above: Performed By: #### C MP, CMADM #### [facility] [address] [address] [address] Samantha Samuels Lymphocytes/100 WBC (Bld) 28.8 % Normal 20.5-60.0 [facility] Comment on above: Performed By: #### C MP, CMADM #### [facility] [address] [address] [address] Samantha Samuels MANUAL DIFF REQ NO Normal [facility] Comment on above: Performed By: #### C MP, CMADM #### [facility] [address] [place] [address] Dr. Samantha Samuels MCH (RBC) [Entitic mass] 32.3 pg Normal 25.9-34.0 [facility] Comment on above: Performed By: #### C MP, CMADM #### [facility] [address] [place] [address] Dr. Samantha Samuels MCHC (RBC) [Mass/Vol] 34.7 g/dL Normal 29.9-35.2 [facility] Comment on above: Performed By: #### C MP, CMADM #### [facility] [address] [place] [address] Dr. Samantha Samuels MCV (RBC) [Entitic vol] 93.0 fL Normal 80.0-94.0 [facility] Comment on above: Performed By: #### C MP, CMADM #### [facility] [address] [place] [address] Dr. Samantha Samuels MONO # 0.6 103/ul Normal 0.3-0.8 [facility] Comment on above: Performed By: #### C MP, CMADM #### [facility] [address] [place] [address] Dr. Samantha Samuels Monocytes/100 WBC (Bld) 9.7 % Normal 1.7-12.0 [facility] Comment on above: Performed By: #### C MP, CMADM #### [facility] [address] [place] [address] Dr. Samantha Samuels NEUT # 3.3 103/ul Normal 1.4-6.5 [facility] Comment on above: Performed By: #### C JEMIMA, CMADM #### [facility] [address] [place] [address] Dr. Samantha Samuels Neutrophils/100 WBC (Bld) 52.4 % Normal 43.0-75.0 [facility] Comment on above: Performed By: #### C JEMIMA, CMADM #### [facility] [address] [place] [address] Dr. Samantha Samuels Platelet mean volume (Bld) [Entitic vol] 9.4 fL Critically low 9.5-13.5 [facility] Comment on above: Performed By: #### C JEMIMA, CMADM #### [facility] [address] [place] [address] Dr. Samantha Samuels PLT 227 103/ul Normal 150-450 [facility] Comment on above: Performed By: #### C JEMIMA, CMADM #### [facility] [address] [place] [address] Dr. Samantha Samuels RBC 4.31 106/ul Critically low 4.70-6.10 [facility] Comment on above: Performed By: #### C JEMIMA, CMADM #### [facility] [address] [place] [address] Dr. Samantha Samuels WBC 6.3 103/ul Normal 4.0-11.0 [facility] Comment on above: Performed By: #### C JEMIMA, CMADM #### [facility] [address] [place] [address] Dr. Samantha Samuels Covid-19 PCR ([facility])on 07-14 SARS-CoV-2 (COVID-19) RNA DELIA+probe Ql (Unsp spec) Not detected Normal NOT DETECTED [facility] Comment on above: Result Comment: When diagnostic [...] for this test is supported by the Metal Furnace Operator of Health and Human Service's declaration that [...] longer be used). Performed By: #### [facility] #### [facility] [address] [place] [address] Dr. Samantha Samuels PROF 14(COMP METB)on 023 Albumin [Mass/Vol] 3.8 g/dL Normal 3.4-5.0 [facility] Comment on above: Performed By: #### C JEMIMA, CMADM #### [facility] [address] [place] [address] Dr. Samantha Samuels Albumin/Globulin [Mass ratio] 1.2 {ratio} Normal [facility] Comment on above: Performed By: #### C JEMIMA, CMADM #### [facility] [address] [place] [address] Dr. Samantha Samuels ALP [Catalytic activity/Vol] 73 U/L Normal 46-116 [facility] Comment on above: Performed By: #### C JEMIMA, CMADM #### [facility] [address] [place] [address] Dr. Samantha Samuels ALT [Catalytic activity/Vol] 16 U/L Normal 16-63 [facility] Comment on above: Performed By: #### C JEMIMA, CMADM #### [facility] [address] [place] [address] Dr. Samantha Samuels Anion gap [Moles/Vol] 9.0 mmol/L Normal [facility] Comment on above: Performed By: #### C MP, CMADM #### [facility] [address] [place] [address] Dr. Samantha Samuels AST [Catalytic activity/Vol] 18 U/L Normal 15-37 [facility] Comment on above: Performed By: #### C MP, CMADM #### [facility] [address] [address] [address] Samantha Samuels Bilirubin [Mass/Vol] 0.4 mg/dL Normal 0.2-1.0 [facility] Comment on above: Performed By: #### C MP, CMADM #### [facility] [address] [place] [address] Dr. Samantha Samuels Calcium [Mass/Vol] 9.5 mg/dL Normal 8.5-10.1 [facility] Comment on above: Performed By: #### C MP, CMADM #### [facility] [address] [address] [address] Samantha Samuels Chloride [Moles/Vol] 106 mmol/L Normal 98-107 [facility] Comment on above: Performed By: #### C MP, CMADM #### [facility] [address] [place] [address] Dr. Samantha Samuels CO2 [Moles/Vol] 31.1 mmol/L Normal 21.0-32.0 [facility] Comment on above: Performed By: #### C MP, CMADM #### [facility] [address] [place] [address] Dr. Samantha Samuels Creatinine [Mass/Vol] 0.83 mg/dL Normal 0.70-1.30 [facility] Comment on above: Performed By: #### C MP, CMADM #### [facility] [address] [place] [address] Dr. Samantha Samuels EGFR-AF [place] >60 Normal >=60 [facility] Comment on above: Performed By: #### C MP, CMADM #### [facility] [address] [place] [address] Dr. Samantha Samuels EGFR-NON AF [place] >60 Normal >=60 [facility] Comment on above: Performed By: #### C MP, CMADM #### [facility] [address] [place] [address] Dr. Samantha Samuels Globulin (S) [Mass/Vol] 3.2 g/dL Normal [facility] Comment on above: Performed By: #### C MP, CMADM #### [facility] [address] [address] [address] Samantha Samuels Glucose [Mass/Vol] 100 mg/dL Normal 74-106 [facility] Comment on above: Performed By: #### C MP, CMADM #### [facility] [address] [address] [address] Samantha Samuels Potassium [Moles/Vol] 4.1 mmol/L Normal 3.5-5.1 [facility] Comment on above: Performed By: #### C MP, CMADM #### [facility] [address] [address] [address] Samantha Samuels Protein [Mass/Vol] 7.0 g/dL Normal 6.4-8.2 [facility] Comment on above: Performed By: #### C JEMIMA, CMADM #### [facility] [address] [address] [address] Samantha Samuels Sodium [Moles/Vol] 142 mmol/L Normal 136-145 [facility] Comment on above: Performed By: #### C JEMIMA, CMADM #### [facility] [address] [address] [address] Samantha Samuels Urea nitrogen [Mass/Vol] 21.0 mg/dL Critically high 7.0-18.0 [facility] Comment on above: Performed By: #### C JEMIMA, CMADM #### [facility] [address] [address] [address] Samantha Samuels Urea nitrogen/Creatinin e [Mass ratio] 25.3 mg/mg Normal [facility] Comment on above: Performed By: #### C JEMIMA, CMADM #### [facility] [address] [address] [address] Samantha Samuels CARDIAC DAWNA ADMITon 023 CK [Catalytic activity/Vol] 101 U/L Normal 39-308 [facility] Comment on above: Performed By: #### C JEMIMA, CMADM #### [facility] [address] [address] [address] Samantha Samuels CK.MB [Mass/Vol] 2.00 ng/mL Normal <=3.60 [facility] Comment on above: Performed By: #### C PHYLLIS ONOFREDM #### [facility] [address] [place] [address] Dr. Samantha Samuels HSTROP 5.3 pg/mL Normal 4.0-76.1 [facility] Comment on above: Result Comment: CUT- OFF POINTS HAVE BEEN ESTABLISHED BASED ON THE FOURTH UNIVERSAL DEFINITIONS OF MYOCARDIAL INFARCTION. THE UPPER REFERENCE LIMIT (URL) OF TROPONIN, DEFINED THE 99TH PERCENTILE OF cTnI DISTRIBUTION IN A REFERENCE POPULATION, HAS BEEN CONFIRMED THE DECISION THRESHOLD FOR LA DIAGNOSIS. Performed By: #### C SORAIDA ONOFRE #### [facility] [address] [place] [address] Dr. Samantha Samuels JOSE 54 ng/mL Normal 16-96 [facility] Comment on above: Performed By: #### C SORAIDA ONOFRE #### [facility] [address] [place] [address] Dr. Samantha Samuels CBC AUTO DIFFon 07-31-2022 BASO # 0.1 103/ul Normal 0.0-0.1 [facility] Comment on above: Performed By: #### C SORAIDA ONOFRE #### [facility] [address] [place] [address] Dr. Samantha Samuels Basophils/100 WBC (Bld) 1.0 % Normal 0.2-2.0 [facility] Comment on above: Performed By: #### C PHYLLIS ONOFREDM #### [facility] [address] [place] [address] Dr. Samantha Samuels EO # 0.6 103/ul Normal 0.0-0.7 [facility] Comment on above: Performed By: #### C PHYLLIS ONOFREDM #### [facility] [address] [place] [address] Dr. Samantha Samuels Eosinophils/100 WBC (Bld) 9.4 % Critically high 0.9-7.0 [facility] Comment on above: Performed By: #### C PHYLLIS ONOFREDM #### [facility] [address] [place] [address] Dr. Samantha Samuels Erythrocyte distribution width (RBC) [Ratio] 12.7 % Normal 11.0-15.0 [facility] Comment on above: Performed By: #### C SORAIDA ONOFRE #### [facility] [address] [place] [address] Dr. Samantha Samuels Hematocrit (Bld) [Volume fraction] 39.7 % Critically low 42.0-54.0 [facility] Comment on above: Performed By: #### C JEMIMA, SORAIDA #### [facility] [address] [place] [address] Dr. Samantha Samuels Hemoglobin (Bld) [Mass/Vol] 13.7 g/dL Critically low 14.0-18.0 [facility] Comment on above: Performed By: #### C SORAIDA ONOFRE #### [facility] [address] [place] [address] Dr. Samantha Samuels IG # 0.01 10e3/ul Normal 0.00-0.03 [facility] Comment on above: Performed By: #### C PHYLLIS ONOFREDM #### [facility] [address] [place] [address] Dr. Samantha Samuels IG % 0.2 % Normal 0.0-0.5 [facility] Comment on above: Performed By: #### C PHYLLIS ONOFREDM #### [facility] [address] [place] [address] Dr. Samantha Samuels LYMPH # 2.2 103/ul Normal 1.2-3.8 [facility] Comment on above: Performed By: #### C PHYLLIS ONOFREDM #### [facility] [address] [place] [address] Dr. Samantha Samuels Lymphocytes/100 WBC (Bld) 36.8 % Normal 20.5-60.0 [facility] Comment on above: Performed By: #### C PHYLLIS ONOFREDM #### [facility] [address] [place] [address] Dr. Samantha Samuels MANUAL DIFF REQ NO Normal [facility] Comment on above: Performed By: #### C SORAIDA ONOFRE #### [facility] [address] [address] [address] Samantha Samuels MCH (RBC) [Entitic mass] 32.2 pg Normal 25.9-34.0 [facility] Comment on above: Performed By: #### C MP, CMADM #### [facility] [address] [place] [address] Dr. Samantha Samuels MCHC (RBC) [Mass/Vol] 34.5 g/dL Normal 29.9-35.2 [facility] Comment on above: Performed By: #### C MP, CMADM #### [facility] [address] [place] [address] Dr. Samantha Samuels MCV (RBC) [Entitic vol] 93.2 fL Normal 80.0-94.0 [facility] Comment on above: Performed By: #### C MP, CMADM #### [facility] [address] [place] [address] Dr. Samantha Samuels MONO # 0.6 103/ul Normal 0.3-0.8 [facility] Comment on above: Performed By: #### C MP, CMADM #### [facility] [address] [place] [address] Dr. Samantha Samuels Monocytes/100 WBC (Bld) 10.9 % Normal 1.7-12.0 [facility] Comment on above: Performed By: #### C MP, CMADM #### [facility] [address] [place] [address] Dr. Samantha Samuels NEUT # 2.5 103/ul Normal 1.4-6.5 [facility] Comment on above: Performed By: #### C MP, CMADM #### [facility] [address] [place] [address] Dr. Samantha Samuels Neutrophils/100 WBC (Bld) 41.7 % Critically low 43.0-75.0 [facility] Comment on above: Performed By: #### C MP, CMADM #### [facility] [address] [place] [address] Dr. Samantha Samuels Platelet mean volume (Bld) [Entitic vol] 9.3 fL Critically low 9.5-13.5 [facility] Comment on above: Performed By: #### C MP, CMADM #### [facility] [address], [place] [address] Dr. Samantha Samuels PLT 225 103/ul Normal 150-450 [facility] Comment on above: Performed By: #### C MP, CMADM #### [facility] [address], [place] [address] Dr. Samantha Samuels RBC 4.26 106/ul Critically low 4.70-6.10 [facility] Comment on above: Performed By: #### C JEMIMA, CMADM #### [facility] [address], [place] [address] Dr. Samantha Samuels WBC 5.9 103/ul Normal 4.0-11.0 [facility] Comment on above: Performed By: #### C JEMIMA, CMADM #### [facility] [address], [place] [address] HEAD WO CONon [...] RONDA ALBRIGHT Date: 2022-07-31 20:08 Normal [facility] PROF 14(COMP METB)on 023 Albumin [Mass/Vol] 3.8 g/dL Normal 3.4-5.0 [facility] Comment on above: Performed By: #### C JEMIMA, CMADM #### [facility] [address] [place] [address] Dr. Samantha Smauels Albumin/Globulin [Mass ratio] 1.2 {ratio} Normal [facility] Comment on above: Performed By: #### C JEMIMA, CMADM #### [facility] [address] [address] [address] Samantha Samuels ALP [Catalytic activity/Vol] 61 U/L Normal 46-116 [facility] Comment on above: Performed By: #### C JEMIMA, CMADM #### [facility] [address] [place] [address] Dr. Samantha Samuels ALT [Catalytic activity/Vol] 18 U/L Normal 16-63 [facility] Comment on above: Performed By: #### C JEMIMA, CMADM #### [facility] [address] [place] [address] Dr. Samantha Samuels Anion gap [Moles/Vol] 8.0 mmol/L Normal [facility] Comment on above: Performed By: #### C JEMIMA, CMADM #### [facility] [address] [place] [address] Dr. Samantha Samuels AST [Catalytic activity/Vol] 18 U/L Normal 15-37 [facility] Comment on above: Performed By: #### C JEMIMA, CMADM #### [facility] [address] [place] [address] Dr. Samantha Samuels Bilirubin [Mass/Vol] 0.4 mg/dL Normal 0.2-1.0 [facility] Comment on above: Performed By: #### C JEMIMA, CMADM #### [facility] [address] [place] [address] Dr. Samantha Samuels Calcium [Mass/Vol] 9.3 mg/dL Normal 8.5-10.1 [facility] Comment on above: Performed By: #### C JEMIMA, CMADM #### [facility] [address] [place] [address] Dr. Samantha Samuels Chloride [Moles/Vol] 105 mmol/L Normal 98-107 [facility] Comment on above: Performed By: #### C JEMIMA, CMADM #### [facility] [address] [address] [address] Samantha Samuels CO2 [Moles/Vol] 33.2 mmol/L Critically high 21.0-32.0 [facility] Comment on above: Performed By: #### C MP, CMADM #### [facility] [address] [address] [address] Samantha Samuels Creatinine [Mass/Vol] 0.74 mg/dL Normal 0.70-1.30 [facility] Comment on above: Performed By: #### C JEMIMA, CMADM #### [facility] [address] [place] [address] Dr. Samantha Samuels EGFR-AF COLOMBIAN >60 Normal >=60 [facility] Comment on above: Performed By: #### C JEMIMA, CMADM #### [facility] [address] [address] [address] Samantha Samuels EGFR-NON AF COLOMBIAN >60 Normal >=60 [facility] Comment on above: Performed By: #### C JEMIMA, CMADM #### [facility] [address] [place] [address] Dr. Samantha Samuels Globulin (S) [Mass/Vol] 3.2 g/dL Normal [facility] Comment on above: Performed By: #### C JEMIMA, CMADM #### [facility] [address] [address] [address] Samantha Samuels Glucose [Mass/Vol] 90 mg/dL Normal 74-106 [facility] Comment on above: Performed By: #### C JEMIMA, CMADM #### [facility] [address] [address] [address] Samantha Samuels Potassium [Moles/Vol] 4.2 mmol/L Normal 3.5-5.1 [facility] Comment on above: Performed By: #### C JEMIMA, CMADM #### [facility] [address] [address] [address] Samantha Samuels Protein [Mass/Vol] 7.0 g/dL Normal 6.4-8.2 [facility] Comment on above: Performed By: #### C MP, CMADM #### [facility] [address] [place] [address] Dr. Samantha Samuels Sodium [Moles/Vol] 142 mmol/L Normal 136-145 [facility] Comment on above: Performed By: #### C MP, CMADM #### [facility] [address] [place] [address] Dr. Samantha Samuels Urea nitrogen [Mass/Vol] 18.0 mg/dL Normal 7.0-18.0 [facility] Comment on above: Performed By: #### C JEMIMA, CMADM #### [facility] [address] [place] [address] Dr. Samantha Samuels Urea nitrogen/Creatinin e [Mass ratio] 24.3 mg/mg Normal [facility] Comment on above: Performed By: #### C JEMIMA, PHYLLISDM #### [facility] [address] [place] [address] Dr. Samantha Spangler 07-25-2022 ELSAN Telephone (HEMASA) JM BARROW ([id number]) 1945 M Date Time Provider Department 07/25/22 KIERA ANGELO During your visit today, we recorded the following information about you: Kiera Angelo RN 07/25/2022 2:05 PM Signed Pt calls stating he can't take the xtandi anymore. States his blood pressure has been elevated and he went to [facility] this past week for that. Pt states he was started on metoprolol and on other med that he can't remember the name of. . Barbara: please get records BRM: please advise Kiera HITESH Eckert MD 07/25/2022 2:42 PM Signed Okay to hold enzalutamide for now. When he returns we will discuss other options. Thanks, Ema Grimm RN 07/25/2022 4:03 PM Signed Patient notified [...] we can change it later if necessary. ThanksEma RN 07/28/2022 2:[address]'s recommendations left on pt's personalized voicemail. Advised he call w/ any further questions. Umer Dale RN Allergies As of Date: 07/25/2022 Noted Allergy Reaction CHLORHEXIDINE 05/21/2013 2 - Rash hibaclens [Other] 06/02/2011 2 - Rash Date Reviewed: 07/18/2022 Reviewed by: Lola Allen OD - Fully Assessed Reason for Visit: Care Coordination [9011] Cmt: Medication update Prescriptions as of 07/28/2022 [...] right eye [H50.21] 06/23/2021 Encounter Status:Closed by ALFARINA on 07/25/22 [facility] CNPNon 07-13-2022 CNPN Telephone ([facility] ) JM BARROW ([id number]) 1945 M Date Time Provider Department 07/13/22 DARLENE YOUNG During your visit today, we recorded the following information about you: Darlene Young [facility] 07/13/2022 12:42 PM Signed I spoke with [...] effects are before he stops altogether. Thanks, GARRETT Dale RN 07/13/2022 1:40 PM Signed Pt [...] Status:Closed by UMER DALE on 07/13/22 Normal [facility] CBC W Auto Differential pane l (Bld)on 07-07-2022 Basophils (Bld) [#/Vol] 0.03 10*3/uL Normal <0.11 [facility] Comment on above: Order Comment: Speci men Type: BLOOD SPECIMENOrdering Facility: [facility] Address: [address] [place] [address] Performed By: #### 5 7021-8 ####[facility] LABCLIA [id number] [place] [address] Basophils/100 WBC (Bld) 0.4 % Normal [facility] Comment on above: Order Comment: Speci men Type: BLOOD SPECIMENOrdering Facility: [facility] Address: [address] [place] [address] Performed By: #### 5 7021-8 ####[facility] LABCLIA [id number] [place] [address] Differential cell count method Nom (Bld) Auto Normal [facility] Comment on above: Order Comment: Speci men Type: BLOOD SPECIMENOrdering Facility: [facility] Address: [address] [place] [address] Performed By: #### 5 7021-8 ####[facility] LABCLIA [id number] [place] [address] Eosinophils (Bld) [#/Vol] 0.42 10*3/uL Normal <0.46 [facility] Comment on above: Order Comment: Speci men Type: BLOOD SPECIMENOrdering Facility: [facility] Address: [address] [place] [address] Performed By: #### 5 7021-8 ####[facility] LABCLIA [id number] [place] [address] Eosinophils/100 WBC (Bld) 5.9 % Normal [facility] Comment on above: Order Comment: Speci men Type: BLOOD SPECIMENOrdering Facility: [facility] Address: [address] [place] [address] Performed By: #### 5 7021-8 ####[facility] LABCLIA [id number] [place] [address] Erythrocyte distribution width (RBC) [Ratio] 12.8 % Normal 11.5-15.0 [facility] Comment on above: Order Comment: Speci men Type: BLOOD SPECIMENOrdering Facility: [facility] Address: [address] [place] [address] Performed By: #### 5 7021-8 ####[facility] LABCLIA [id number] [place] [address] Hematocrit (Bld) [Volume fraction] 44.0 % Normal 39.0-51.0 [facility] Comment on above: Order Comment: Speci men Type: BLOOD SPECIMENOrdering Facility: [facility] Address: [address] [place] [address] Performed By: #### 5 7021-8 ####[facility] LABCLIA [id number] [place] [address] Hemoglobin (Bld) [Mass/Vol] 14.9 g/dL Normal 13.0-17.0 [facility] Comment on above: Order Comment: Speci men Type: BLOOD SPECIMENOrdering Facility: [facility] Address: [address] [place] [address] Performed By: #### 5 7021-8 ####[facility] LABCLIA [id number] [place] [address] Immature granulocytes (Bld) [#/Vol] 0.03 10*3/uL Normal <0.10 [facility] Comment on above: Order Comment: Speci men Type: BLOOD SPECIMENOrdering Facility: [facility] Address: [address] [address] Performed By: #### 5 7021-8 ####[facility] LABCLIA [id number] [place] [address] Immature granulocytes/100 WBC (Bld) 0.4 % Normal [facility] Comment on above: Order Comment: Speci men Type: BLOOD SPECIMENOrdering Facility: [facility] Address: [address] [address] Performed By: #### 5 7021-8 ####[facility] LABCLIA [id number] [place] [address] Lymphocytes (Bld) [#/Vol] 1.87 10*3/uL Normal 1.00-4.00 [facility] Comment on above: Order Comment: Speci men Type: BLOOD SPECIMENOrdering Facility: [facility] Address: [address] [address] Performed By: #### 5 7021-8 ####[facility] LABCLIA [id number] [place] [address] Lymphocytes/100 WBC (Bld) 26.1 % Normal [facility] Comment on above: Order Comment: Speci men Type: BLOOD SPECIMENOrdering Facility: [facility] Address: [address] [address] Performed By: #### 5 7021-8 ####[facility] LABCLIA [id number] [place] [address] MCH (RBC) [Entitic mass] 31.6 pg Normal 26.0-34.0 [facility] Comment on above: Order Comment: Speci men Type: BLOOD SPECIMENOrdering Facility: [facility] Address: [address] [place] [address] Performed By: #### 5 7021-8 ####[facility] LABCLIA [id number] [place] [address] MCHC (RBC) [Mass/Vol] 33.9 g/dL Normal 30.5-36.0 [facility] Comment on above: Order Comment: Speci men Type: BLOOD SPECIMENOrdering Facility: [facility] Address: [address] [place] [address] Performed By: #### 5 7021-8 ####[facility] LABIA [id number] [place] [address] MCV (RBC) [Entitic vol] 93.4 fL Normal 80.0-100.0 [facility] Comment on above: Order Comment: Speci men Type: BLOOD SPECIMENOrdering Facility: [facility] Address: [address] [place] [address] Performed By: #### 5 7021-8 ####[facility] LABCLIA [id number] [place] [address] Monocytes (Bld) [#/Vol] 0.73 10*3/uL Normal <0.87 [facility] Comment on above: Order Comment: Speci men Type: BLOOD SPECIMENOrdering Facility: [facility] Address: [address] [place] [address] Performed By: #### 5 7021-8 ####[facility] LABIA [id number] [place] [address] Monocytes/100 WBC (Bld) 10.2 % Normal [facility] Comment on above: Order Comment: Speci men Type: BLOOD SPECIMENOrdering Facility: [facility] Address: [address] [address] Performed By: #### 5 7021-8 ####[facility] LABCLIA [id number] [place] [address] Neutrophils (Bld) [#/Vol] 4.09 10*3/uL Normal 1.45-7.50 [facility] Comment on above: Order Comment: Speci men Type: BLOOD SPECIMENOrdering Facility: [facility] Address: [address] [address] Performed By: #### 5 7021-8 ####[facility] LABCLIA [id number] [place] [address] Neutrophils/100 WBC (Bld) 57.0 % Normal [facility] Comment on above: Order Comment: Speci men Type: BLOOD SPECIMENOrdering Facility: [facility] Address: [address] [place] [address] Performed By: #### 5 7021-8 ####[facility] LABCLIA [id number] [place] [address] Nucleated RBC (Bld) [#/Vol] 10*3/uL Normal <0.01 [facility] Comment on above: Order Comment: Speci men Type: BLOOD SPECIMENOrdering Facility: [facility] Address: [address] [place] [address] Performed By: #### 5 7021-8 ####[facility] LABCLIA [id number] [place] [address] Nucleated RBC/100 WBC (Bld) [Ratio] 0.0 /100 WBC Normal [facility] Comment on above: Order Comment: Speci men Type: BLOOD SPECIMENOrdering Facility: [facility] Address: [address] [place] [address] Performed By: #### 5 7021-8 ####[facility] LABCLIA [id number] [place] [address] Platelet mean volume (Bld) [Entitic vol] 9.3 fL Normal 9.0-12.7 [facility] Comment on above: Order Comment: Speci men Type: BLOOD SPECIMENOrdering Facility: [facility] Address: [address] [place] [address] Performed By: #### 5 7021-8 ####[facility] LABIA [id number] [place] [address] Platelets (Bld) [#/Vol] 230 10*3/uL Normal 150-400 [facility] Comment on above: Order Comment: Speci men Type: BLOOD SPECIMENOrdering Facility: [facility] Address: [address] [place] [address] Performed By: #### 5 7021-8 ####[facility] LABIA [id number] [place] [address] RBC (Bld) [#/Vol] 4.71 10*6/uL Normal 4.20-6.00 [facility] Comment on above: Order Comment: Speci men Type: BLOOD SPECIMENOrdering Facility: [facility] Address: [address] [place] [address] Performed By: #### 5 7021-8 ####[facility] LABIA [id number] [place] [address] WBC (Bld) [#/Vol] 7.17 10*3/uL Normal 3.70-11.00 [facility] Comment on above: Order Comment: Speci men Type: BLOOD SPECIMENOrdering Facility: [facility] Address: [address] [place] [address] Performed By: #### 5 7021-8 ####[facility] LABIA [id number] [place] [address] CNOVSPon 07-07-2022 CNOVSP Visit (SP) Office ([facility]) JM BARROW ([id number]) 1945 M Date Time Provider Department 07/07/22 3:30 PM JOSE FRANCISCO BROUSSARD During your visit today, we recorded the following information about you: Temperature Pulse Respiration Blood pressure 97 degrees 75/minute 16/minute 110/62 Weight Height 80.4 kg 1.829 m Jose Francisco Broussard MD 07/08/2022 8:58 AM Signed PATIENT NAME: Jm Barrow DATE: 07/07/2022 PRIMARY CARE PHYSICIAN: rAline Orosco MD OTHER PHYSICIANS: Dr. Guzman, Dr. [...] CATARACT, INSERT LENS,EX Bilateral 06/2019 Dr. Alfa Flannery, [place] TONSILLECTOMY HX FAMILY HISTORY: FAMILY HISTORY Problem [...] nutrition, abdominal (more content not included)... Normal [facility] Comprehensive metabolic 2000 panelon 07-07-2022 Albumin [Mass/Vol] 4.4 g/dL Normal 3.9-4.9 [facility] [place] Comment on above: Order Comment: Speci men Type: BLOOD SPECIMENOrdering Facility: [facility] Address: [address] [place] [address] Performed By: #### 2 4323-8 ####[facility] LABCLIA [id number] [place] [address] ALP [Catalytic activity/Vol] 69 U/L Normal 38-113 [facility] Comment on above: Order Comment: Speci men Type: BLOOD SPECIMENOrdering Facility: [facility] Address: [address] [address] Performed By: #### 2 4323-8 ####[facility] LABCLIA [id number] [place] [address] ALT [Catalytic activity/Vol] 13 U/L Normal 10-54 [facility] Comment on above: Order Comment: Speci men Type: BLOOD SPECIMENOrdering Facility: [facility] Address: [address] [address] Performed By: #### 2 4323-8 ####[facility] LABCLIA [id number] [place] [address] Anion gap [Moles/Vol] 7 mmol/L Low 9-18 [facility] Comment on above: Order Comment: Speci men Type: BLOOD SPECIMENOrdering Facility: [facility] Address: [address] [address] Performed By: #### 2 4323-8 ####[facility] LABCLIA [id number] [place] [address] AST [Catalytic activity/Vol] 22 U/L Normal 14-40 [facility] Comment on above: Order Comment: Speci men Type: BLOOD SPECIMENOrdering Facility: [facility] Address: [address] [place] [address] Performed By: #### 2 4323-8 ####[facility] LABCLIA [id number] [place] [address] Bilirubin [Mass/Vol] 0.6 mg/dL Normal 0.2-1.3 [facility] Comment on above: Order Comment: Speci men Type: BLOOD SPECIMENOrdering Facility: [facility] Address: [address] [place] [address] Performed By: #### 2 4323-8 ####[facility] LABCLIA [id number] [place] [address] Calcium [Mass/Vol] 10.0 mg/dL Normal 8.5-10.2 [facility] [place] Comment on above: Order Comment: Speci men Type: BLOOD SPECIMENOrdering Facility: [facility] Address: [address] [place] [address] Performed By: #### 2 4323-8 ####[facility] LABCLIA [id number] [place] [address] Chloride [Moles/Vol] 110 mmol/L High 97-105 [facility] Comment on above: Order Comment: Speci men Type: BLOOD SPECIMENOrdering Facility: [facility] Address: [address] [place] [address] Performed By: #### 2 4323-8 ####[facility] LABCLIA [id number] [place] [address] CO2 [Moles/Vol] 29 mmol/L Normal 22-30 [facility] Comment on above: Order Comment: Speci men Type: BLOOD SPECIMENOrdering Facility: [facility] Address: [address] [place] [address] Performed By: #### 2 4323-8 ####[facility] LABCLIA [id number] [place] [address] Creatinine [Mass/Vol] 1.00 mg/dL Normal 0.73-1.22 [facility] Comment on above: Order Comment: Speci men Type: BLOOD SPECIMENOrdering Facility: [facility] Address: [address] [place] [address] Performed By: #### 2 4323-8 ####[facility] LABCLIA [id number] [place] [address] ESTIMATED GLOMERULAR FILTRATION RATE 79 mL/min/1.73m??? Normal >=60 [facility] Comment on above: Order Comment: Speci men Type: BLOOD SPECIMENOrdering Facility: [facility] Address: [address] [place] [address] Result Comment: Jessica mated Glomerular Filtration Rate [...] actual GFR. Performed By: #### 2 4323-8 ####[facility] LABCLIA [id number] [place] [address] Glucose [Mass/Vol] 125 mg/dL High 74-99 [facility] [place] Comment on above: Order Comment: Speci men Type: BLOOD SPECIMENOrdering Facility: [facility] Address: [address] [place] [address] Result Comment: The [place] (ADA) provides guidance for cutoff [...] Standards of Medical Care in Diabetes 2016, [place] [employer]. Diabetes Care. 2016.39(Suppl 1). Performed By: #### 2 4323-8 ####[facility] LABCLIA [id number] [place] [address] Potassium [Moles/Vol] 4.5 mmol/L Normal 3.7-5.1 [facility] Comment on above: Order Comment: Speci men Type: BLOOD SPECIMENOrdering Facility: [facility] Address: [address] [place] [address] Performed By: #### 2 4323-8 ####[facility] LABCLIA [id number] [place] [address] Protein [Mass/Vol] 7.2 g/dL Normal 6.3-8.0 [facility] [place] Comment on above: Order Comment: Speci men Type: BLOOD SPECIMENOrdering Facility: [facility] Address: [address] [place] [address] Performed By: #### 2 4323-8 ####[facility] LABCLIA [id number] [place] [address] Sodium [Moles/Vol] 146 mmol/L High 136-144 [facility] [place] Comment on above: Order Comment: Speci men Type: BLOOD SPECIMENOrdering Facility: [facility] Address: [address] [place] [address] Performed By: #### 2 4323-8 ####[facility] LABCLIA [id number] [place] [address] Urea nitrogen [Mass/Vol] 24 mg/dL Normal 9-24 [facility] Comment on above: Order Comment: Speci men Type: BLOOD SPECIMENOrdering Facility: [facility] Address: [address] [place] [address] Performed By: #### 2 4323-8 ####[facility] LABIA [id number] [place] [address] [facility] Prostate specific Ag [Mass/Vol] 0.20 ng/mL Normal <2.60 [facility] Comment on above: Order Comment: Speci men Type: BLOOD SPECIMENOrdering Facility: [facility] Address: [address] [place] [id number] Result Comment: Tota l PSA test methodology used is the Electrochemiluminescence Immunoassay by [employer]. Total PSA values by differing methodologies cannot be interchanged. Performed By: #### 2 857-1 ####[facility] LABCLIA [id number] [address] [place] Crys 07-01-2022 PRATIMA Telephone (EVE) JM BARROW ([id number]) 1945 M Date Time Provider Department 07/01/22 [...] Fully Assessed Reason for Visit: Care Coordination [3495] Cmt: Oral Anti-Cancer Agent Follow Up Prescriptions [...] of right (more content not included)... Normal [facility] CNPNon 06-27-2022 CNPN Telephone (HEMASA) JM BARROW ([id number]) 1945 M Date Time Provider Department 06/27/22 HIEN PATEL During your visit today, we recorded the following information about you: Ondina Patel RPh 06/27/2022 10:14 AM Signed Jm has decided to move forward with the Xtandi, he received his 14 day free trial on 06/24/22. I was able to secure a ronda that will cover next month and we will pursue free drug following that. He will complete the application when he comes in for his 07/07/22 appt. Mathtias Patel [facility] Jose Francisco Broussard MD 06/27/2022 11:41 AM Signed Thanks. BRM Allergies As of Date: 06/27/2022 Noted Allergy Reaction CHLORHEXIDINE 05/21/2013 2 - Rash hibaclens [Other] 06/02/2011 2 - Rash Date Reviewed: 06/20/2022 Reviewed by: Vidhi Rico - Fully Assessed Reason for Visit: Medication Update [1671] Cmt: FYI patient deciding to move forward [...] Encounter Status:Closed by HIEN PATEL on 06/27/22 [facility] 06-22-2022 [facility] Telephone (SDOPRX) JM BARROW ([id number]) 1945 M Date Time Provider Department 06/22/22 HIEN PATEL SDOPRX During your visit today, we recorded the following information about you: Ondina Patel [facility] 06/22/2022 2:53 PM Signed Call placed to [...] please sign order Thank you Matthias Patel, [facility] Umer Dale RN 06/22/2022 2:55 PM Signed Clerical: Please call and offer pt an education appointment. Can be in person or over the phone. Umer Dale RN Kiera Trejo Sec 06/22/2022 3:04 PM Signed Patient does not [...] Fully Assessed Reason for Visit: Medication Update [2146] Cmt: Xtandi Order(s):Order #: [id number] Prescriptions as of 06/22/2022 - enzalutamide (XTANDI) [...] Encounter Status:Closed by HIEN PATEL on 06/22/22 [facility] Crys 06-21-2022 CNPN Telephone ([facility]) JM BARROW ([id number]) 1945 M Date Time Provider Department 06/21/22 NADIRA RIOS [facility] During your visit today, we recorded the following information about you: Nadira Rios [facility] 06/21/2022 1:44 PM Signed Ambulatory Pharmacy Prior Authorization Note Provider Intervention Required?: No- Pharmacy completed on your behalf. Rx Plan: Other: [facility]: Xtandi Cover My Meds Torres: [id number] Determination: Approved Prior Authorization/Case #: [id number] Prior Authorization Expiration: 06/21/2023 Time to PA Submission in CMM: 15 min Time to PA Determination in CMM: Same day Additional Information: $3,107.12 - will need to reach out to patient For questions relating to this submission, please contact [facility] at [phone] Allergies As of Date: 06/21/2022 Noted Allergy Reaction CHLORHEXIDINE 05/21/2013 2 - Rash hibaclens [Other] 06/02/2011 2 - Rash Date Reviewed: 06/20/2022 Reviewed by: Vidhi Rico - Fully Assessed Reason for Visit: Medication Authorization [6949] Cmt: Xtandi Prescriptions as of 06/23/2022 - [...] Encounter Status:Closed by NADIRA RIOS on 06/23/22 [facility] CNOVSPon 06-20-2022 CNOVSP Visit (SP) Office ( E[facility]) PERCYJM Dean ([id number]) 1945 M Date Time Provider Department 06/20/22 [...] CATARACT, INSERT LENS,EX Bilateral 06/2019 Dr. Grimm [facility] [place] TONSILLECTOMY HX FAMILY HISTORY: FAMILY HISTORY Problem [...] face. N (more content not included)... Normal [facility] CNOVon 06-07-2022 CNOV Office Visit (RADTSA ) JM BARROW ([id number]) 1945 M Date Time Provider Department 06/07/22 1:30 PM Ace GUZMAN During your visit [...] follow-up with his urologist. 2 Prostate cancer [place] 8, node positive with prior treatment including [...] Ace Guzman MD cc: Arline Orosco MD [address] [place] [phone] Portions of the above note extracted and edited from previous visit as well as active information included in the EMR. Allergies As of Date: 06/07/2022 Noted Allergy Reaction CHLORHEXIDINE 05/21/2013 2 - Rash hibaclens [Other] 06/02/2011 2 - Rash Date Reviewed: 03/22/2022 Reviewed by: Mali Mora LPN - (more content not included)... Normal [facility] NM PET/CT PROSTATE WBon 05-15 NM PET/CT PROSTATE WB * * *Final Report* * * DATE OF EXAM: Jun 02 2022 3:09PM NRN 0093 - NM PET/CT PROSTATE WB / PROCEDURE REASON: multiple diagnoses * * * * Physician Interpretation * * * * RESULT: [id number] WHOLE BODY PET/CT SCAN HISTORY: 76-year-old man prostate cancer, rising PSA COMPARISON: CT 09/11/2015 TECHNIQUE: 10.8 mCi of [id number]. The PET imaging was obtained between SKULL [...] any questions regarding this interpretation, please call [phone]. If you are unable to reach us at the number above, please feel free to contact [facility] at [phone]. [id number] Normal [facility] PSA SerPl-mCncon 06-02-2022 Prostate specific Ag [Mass/Vol] 0.50 ng/mL Normal <2.60 [facility] Comment on above: Order Comment: Speci men Type: BLOOD SPECIMENOrdering Facility: [facility] Address: [address] [place] [address] Result Comment: Tota l PSA test methodology used is the Electrochemiluminescence Immunoassay by [employer]. Total PSA values by differing methodologies cannot be interchanged. Performed By: #### 2 857-1 ####[facility] LABCLIA [id number] [place] [address] [place] Testost SerPl-mCncon 023 Testosterone [Mass/Vol] ng/dL Low 193-824 [facility] Comment on above: Order Comment: Speci men Type: BLOOD SPECIMENOrdering Facility: [facility] Address: [address] [place] [address] Result Comment: A te stosterone level in the 193-320 ng/dL range with associated clinical symptoms is considered low and may indicate hypogonadism (from NEJ 2010 363:123-135). Results >320 ng/dL are considered normal. Result rechecked. Performed By: #### 2 986-8 ####[facility] LABCLIA [id number] [place] [address] [place] CALCIUMon 05-17-2022 Calcium [Mass/Vol] 9.4 mg/dL Normal 8.5-10.1 [facility] Comment on above: Performed By: #### C SORAIDA ONOFRE #### [facility] [address] [place] [address] Dr. Samantha Samuels Covid-19 [facility]on SARS-CoV-2 (COVID-19) RNA DELIA+probe Ql (Unsp spec) Not detected Normal NOT DETECTED [facility] Comment on above: Result Comment: This test is not yet approved or cleared by the [place] FDA. When there are no FDA-approved or cleared tests available, and other criteria are met, FDA can make tests available under an emergency access mechanism called an Emergency Use Authorization (EUA). The EUA for this test is supported by the [place] of Health and Human Service's (HHS's) declaration [...] Performed By: #### C JEMIMA, CMADM #### [facility] [address] [place] [address] Dr. Samantha Samuels INFLUENZA A AND B AGon 05-17 [facility] SEE BELOW Normal [facility] Comment on above: Result Comment: Nega tive for Flu A protein angiten. Infection due to Flu A cannot be ruled out. Flu A angiten in the sample may be below the detection limit of the test. Performed By: #### C JEMIMA, PHYLLISDM #### [facility] [address] [place] [address] Dr. Samantha Samuels INFLUBNEGH SEE BELOW Normal [facility] Comment on above: Result Comment: Nega tive for Flu B protein antigen. Infection due to Flu B cannot be ruled out. Flu B antigen in the sample may be below the detection limit of the test. Performed By: #### C JEMIMA, CMADM #### [facility] [address] [place] [address] Dr. Samantha Samuels INFLUENZA A AG Negative Normal NEGATIVE SEE COMMENT [facility] Comment on above: Performed By: #### C JEMIMA, CMADM #### [facility] [address] [place] [address] Dr. Samantha Samuels INFLUENZA B AG Negative Normal NEGATIVE SEE COMMENT [facility] Comment on above: Performed By: #### C , [facility] #### [facility] [address] [place] [address] [place], [place] [id number] Dr. Samantha Samuels NM STRESS/REST MULTIon 03-24 NM STRESS/REST MULTI Patient: JM BARROW Exam Date: 03/24/2022 : 1945 Gender:M Ordering : DR ARLINE OROSCO . Admission #: [id number] Family : Order #: [id number] CLICK HERE TO VIEW EXAM RADIOLOGY REPORT [...] LOCATION: Basal inferoseptal. Mid-anterior. Mid-inferoseptal. Apical anterior. [place]. SIZE: Large (5 or more segments). SEVERITY: [...] MD on 03/24/2022 at 13:00 Normal [facility] CT LUNG CANCER SCREENINGon 1 05-21-2021 CT [...] LDCT in 12 months. Electronically authenticated by: SKINNY VILLAR Date: 2022-03-21 07:45 Normal [facility] INSULINon 03-19-2022 Insulin 5.9 uIU/mL Normal 2.6-24.9 [facility] Comment on above: Performed By: #### C SORAIDA ONOFRE #### [facility] [address] [place] [address] Dr. Samantha Samuels CBC AUTO DIFFon 03-18-2022 BASO # 0.1 103/ul Normal 0.0-0.1 [facility] Comment on above: Performed By: #### C SORAIDA ONOFRE #### [facility] [address] [place] [address] Dr. Samantha Samuels Basophils/100 WBC (Bld) 1.0 % Normal 0.2-2.0 [facility] Comment on above: Performed By: #### C SORAIDA ONOFRE #### [facility] [address] [place] [address] Dr. Samantha Samuels EO # 0.7 103/ul Normal 0.0-0.7 [facility] Comment on above: Performed By: #### C JEMIMA, CMADM #### [facility] [address] [place] [address] Dr. Samantha Samuels Eosinophils/100 WBC (Bld) 9.8 % Critically high 0.9-7.0 [facility] Comment on above: Performed By: #### C JEMIMA, CMADM #### [facility] [address] [place] [address] Dr. Samantha Samuels Erythrocyte distribution width (RBC) [Ratio] 12.7 % Normal 11.0-15.0 [facility] Comment on above: Performed By: #### C JEMIMA, CMADM #### [facility] [address] [place] [address] Dr. Samantha Samuels Hematocrit (Bld) [Volume fraction] 41.7 % Critically low 42.0-54.0 [facility] Comment on above: Performed By: #### C PHYLLIS ONOFREDM #### [facility] [address] [place] [address] Dr. Samantha Samuels Hemoglobin (Bld) [Mass/Vol] 14.2 g/dL Normal 14.0-18.0 [facility] Comment on above: Performed By: #### C JEMIMA, CMADM #### [facility] [address] [place] [address] Dr. Samantha Samuels IG # 0.01 10e3/ul Normal 0.00-0.03 [facility] Comment on above: Performed By: #### C JEMIMA, CMADM #### [facility] [address] [place] [address] Dr. Samantha Samuels IG % 0.1 % Normal 0.0-0.5 [facility] Comment on above: Performed By: #### C JEMIMA, CMADM #### [facility] [address] [place] [address] Dr. Samantha Samuels LYMPH # 1.7 103/ul Normal 1.2-3.8 [facility] Comment on above: Performed By: #### C MP, CMADM #### [facility] [address] [address] [address] Samantha Samuels Lymphocytes/100 WBC (Bld) 24.7 % Normal 20.5-60.0 [facility] Comment on above: Performed By: #### C MP, CMADM #### [facility] [address] [address] [address] Samantha Samuels MANUAL DIFF REQ NO Normal [facility] Comment on above: Performed By: #### C MP, CMADM #### [facility] [address] [place] [address] Dr. Samantha Samuels MCH (RBC) [Entitic mass] 31.7 pg Normal 25.9-34.0 [facility] Comment on above: Performed By: #### C MP, CMADM #### [facility] [address] [place] [address] Dr. Samantha Samuels MCHC (RBC) [Mass/Vol] 34.1 g/dL Normal 29.9-35.2 [facility] Comment on above: Performed By: #### C MP, CMADM #### [facility] [address] [address] [address] Samantha Samuels MCV (RBC) [Entitic vol] 93.1 fL Normal 80.0-94.0 [facility] Comment on above: Performed By: #### C MP, CMADM #### [facility] [address] [address] [address] Samantha Samuels MONO # 0.6 103/ul Normal 0.3-0.8 [facility] Comment on above: Performed By: #### C MP, CMADM #### [facility] [address] [address] [address] Samantha Samuels Monocytes/100 WBC (Bld) 8.6 % Normal 1.7-12.0 [facility] Comment on above: Performed By: #### C MP, CMADM #### [facility] [address] [address] [address] Samantha Samuels NEUT # 3.7 103/ul Normal 1.4-6.5 [facility] Comment on above: Performed By: #### C JEMIMA, PHYLLISDM #### [facility] [address] [place] [address] Dr. Samantha Samuels Neutrophils/100 WBC (Bld) 55.8 % Normal 43.0-75.0 [facility] Comment on above: Performed By: #### C JEMIMA, PHYLLISDM #### [facility] [address] [place] [address] Dr. Samantha Samuels Platelet mean volume (Bld) [Entitic vol] 8.8 fL Critically low 9.5-13.5 [facility] Comment on above: Performed By: #### C SORAIDA ONOFRE #### [facility] [address] [place] [address] Dr. Samantha Samuels PLT 228 103/ul Normal 150-450 [facility] Comment on above: Performed By: #### C SORAIDA ONOFRE #### [facility] [address] [place] [address] Dr. Samantha Samuesl RBC 4.48 106/ul Critically low 4.70-6.10 [facility] Comment on above: Performed By: #### C SORAIDA ONOFRE #### [facility] [address] [place] [address] Dr. Samantha Samuels WBC 6.7 103/ul Normal 4.0-11.0 [facility] Comment on above: Performed By: #### C SORAIDA ONOFRE #### [facility] [address] [place] [address] Dr. Samantha Samuels GLYCOHEMOGLOBIN A1Con 2021 ADA RECOMMENDATION SEE BELOW Normal [facility] Comment on above: Result Comment: ADA RECOMMENDED LIMIT 4.0 - 6.0 ADA THERAPEUTIC TARGET < 7.0 ACTION SUGGESTED > 7.0 Performed By: #### A 1C #### [facility] [address] [place] [address] Dr. Samantha Samuels Glucose [Mass/Vol] 103 mg/dL Normal [facility] Comment on above: Performed By: #### A 1C #### [facility] [address] [place] [address] Dr. Samantha Samuels HbA1c (Bld) [Mass fraction] 5.2 % Normal 4.5-6.2 [facility] Comment on above: Performed By: #### A 1C #### [facility] [address] [place] [address] Dr. Samantha Samuels LIPID PROFILEon 03-18-2022 CHOL-HDL RATIO NORM SEE BELOW Normal [facility] Comment on above: Result Comment: 3.3 - 4.4 LOW RISK 4.4 - 7.1 AVERAGE RISK 7.1 - 11.0 MODERATE RISK >11.0 HIGH RISK Performed By: #### L IPID, URIC, CMP #### [facility] [address] [address] [address] Samantha Samuels Cholesterol [Mass/Vol] 189 mg/dL Normal <=200 [facility] Comment on above: Performed By: #### L IPID, URIC, CMP #### [facility] [address] [address] [address] Samantha Samuels Cholesterol in HDL [Mass/Vol] 54 mg/dL Normal 40-60 [facility] Comment on above: Performed By: #### L IPID, URIC, CMP #### [facility] [address] [address] [address] Samantha Samuels Cholesterol in LDL [Mass/Vol] 121.2 mg/dL Normal [facility] Comment on above: Performed By: #### L IPID, URIC, CMP #### [facility] [address] [place] [address] Dr. Samantha Samuels Cholesterol.total/ Cholesterol in HDL [Mass ratio] 3.5 {ratio} Normal [facility] Comment on above: Performed By: #### L IPID, URIC, CMP #### [facility] [address] [address] [address] Samantha Samuels HDL NORMAL > or = 60 mg/dl - LO W CARDIOVASCULAR RISK <40 mg/dl - HIGH CARDIOVASCULAR RISK Normal [facility] Comment on above: Performed By: #### L IPID, URIC, CMP #### [facility] [address] [place] [address] Dr. Samantha Samuels LDL CALC NORMAL SEE BELOW Normal [facility] Comment on above: Result Comment: <100 mg/dl OPTIMAL 100 - 129 mg/dl NEAR OR ABOVE OPTIMAL 130 - 159 mg/dl BORDERLINE HIGH 160 - 189 mg/dl HIGH >190 mg/dl VERY HIGH Performed By: #### L IPID, URIC, CMP #### [facility] [address] [address] [address] Samantha Samuels Triglyceride [Mass/Vol] 69 mg/dL Normal <=150 [facility] Comment on above: Performed By: #### L IPID, URIC, CMP #### [facility] [address] [address] [address] Samantha Samuels VLDL CALC 13.8 mg/dL Normal [facility] Comment on above: Performed By: #### L IPID, URIC, CMP #### [facility] [address] [place] [address] Dr. Samantha Samuels PROF 14(COMP METB)on 022 Albumin [Mass/Vol] 3.9 g/dL Normal 3.4-5.0 [facility] Comment on above: Performed By: #### L IPID, URIC, CMP #### [facility] [address] [address] [address] Samantha Samuels Albumin/Globulin [Mass ratio] 1.0 {ratio} Normal [facility] Comment on above: Performed By: #### L IPID, URIC, CMP #### [facility] [address] [address] [address] Samantha Samuels ALP [Catalytic activity/Vol] 45 U/L Critically low 46-116 [facility] Comment on above: Performed By: #### L IPID, URIC, CMP #### [facility] [address] [address] [address] Samantha Samuels ALT [Catalytic activity/Vol] 16 U/L Normal 16-63 [facility] Comment on above: Performed By: #### L IPID, URIC, CMP #### [facility] [address] [address] [address] Samantha Samuels Anion gap [Moles/Vol] 6.2 mmol/L Normal [facility] Comment on above: Performed By: #### L IPID, URIC, CMP #### [facility] [address] [place] [address] Dr. Samantha Samuels AST [Catalytic activity/Vol] 16 U/L Normal 15-37 [facility] Comment on above: Performed By: #### L IPID, URIC, CMP #### [facility] [address] [place] [address] Dr. Samantha Samuels Bilirubin [Mass/Vol] 0.5 mg/dL Normal 0.2-1.0 [facility] Comment on above: Performed By: #### L IPID, URIC, CMP #### [facility] [address] [place] [address] Dr. Samantha Samuels Calcium [Mass/Vol] 9.4 mg/dL Normal 8.5-10.1 [facility] Comment on above: Performed By: #### L IPID, URIC, CMP #### [facility] [address] [place] [address] Dr. Samantha Samuels Chloride [Moles/Vol] 106 mmol/L Normal 98-107 [facility] Comment on above: Performed By: #### L IPID, URIC, CMP #### [facility] [address] [place] [address] Dr. Samantha Samuels CO2 [Moles/Vol] 32.2 mmol/L Critically high 21.0-32.0 [facility] Comment on above: Performed By: #### L IPID, URIC, CMP #### [facility] [address] [place] [address] Dr. Samantha Samuels Creatinine [Mass/Vol] 0.82 mg/dL Normal 0.70-1.30 [facility] Comment on above: Performed By: #### L IPID, URIC, CMP #### [facility] [address] [place] [address] Dr. Samantha Samuels EGFR-AF COLOMBIAN >60 Normal >=60 [facility] Comment on above: Result Comment: Prev iously reported as: (blank) On 03/18/2022 10:54 By KD3 Performed By: #### L IPID, URIC, CMP #### [facility] [address] [place] [address] Dr. Samantha Samuels EGFR-NON AF COLOMBIAN >60 Normal >=60 [facility] Comment on above: Result Comment: Prev iously reported as: (blank) On 03/18/2022 10:54 By KD3 Performed By: #### L IPID, URIC, CMP #### [facility] [address] [place] [address] Dr. Samantha Samuels Globulin (S) [Mass/Vol] 3.8 g/dL Normal [facility] Comment on above: Performed By: #### L IPID, URIC, CMP #### [facility] [address] [place] [id number] Dr. Samantha Samuels Glucose [Mass/Vol] 101 mg/dL Normal 74-106 [facility] Comment on above: Performed By: #### L IPID, URIC, CMP #### [facility] [address] [place] [address] Dr. Samantha Samuels Potassium [Moles/Vol] 4.4 mmol/L Normal 3.5-5.1 [facility] Comment on above: Performed By: #### L IPID, URIC, CMP #### [facility] [address] [place] [address] Dr. Samantha Samuels Protein [Mass/Vol] 7.7 g/dL Normal 6.4-8.2 [facility] Comment on above: Performed By: #### L IPID, URIC, CMP #### [facility] [address] [place] [address] Dr. Samantha Samuels Sodium [Moles/Vol] 140 mmol/L Normal 136-145 [facility] Comment on above: Performed By: #### L IPID, URIC, CMP #### [facility] [address] [place] [address] Dr. Samantha Samuels Urea nitrogen [Mass/Vol] 17.0 mg/dL Normal 7.0-18.0 [facility] Comment on above: Performed By: #### L IPID, URIC, CMP #### [facility] [address] [place] [address] Dr. Samantha Samuels Urea nitrogen/Creatinin e [Mass ratio] 20.7 mg/mg Normal [facility] Comment on above: Performed By: #### L IPID, URIC, CMP #### [facility] [address] [place] [address] Dr. Samantha Samuels URIC ACID SERUMon 03-18-2022 Urate [Mass/Vol] 4.5 mg/dL Normal 3.5-7.2 [facility] Comment on above: Performed By: #### L IPID, URIC, CMP #### [facility] [address] [place] [address] Dr. Samantha Samuels VITAMIN D 25 OHon 03-18-2022 VIT D 25-OH 73.5 ng/mL Normal [facility] Comment on above: Performed By: #### C JEMIMA, CMADM #### [facility] [address] [place] [address] Dr. Samantha Samuels VIT D RANGES SEE BELOW Normal [facility] Comment on above: Result Comment: <20 ng/mL Vit D deficient 20 - <30 ng/mL Vit D insufficient 30 - 100 ng/mL Vit D sufficient >100 ng/mL Potential Toxicity Performed By: #### C JEMIMA, CMADM #### [facility] [address] [place] [address] Dr. Samantha Samuels CALCIUMon 11-18-2021 Calcium [Mass/Vol] 10.3 mg/dL Critically high 8.5-10.1 [facility] Comment on above: Performed By: #### C A #### [facility] [address] [place] [address] Dr. Samantha Samuels Covid-19 PCR (CVDTB)on SARS-CoV-2 (COVID-19) RNA DELIA+probe Ql (Unsp spec) Not detected Normal NOT DETECTED [facility] Comment on above: Result Comment: This test is not yet approved or cleared by the [place] FDA. When there are no FDA-approved or cleared tests available, and other criteria are met, FDA can make tests available under an emergency access mechanism called an Emergency Use Authorization (EUA). The EUA for this test is supported by the [employer] Operator of Health and Human Service's (HHS's) declaration [...] consistent with SARS-CoV-2. Performed By: #### C VDTBH #### [facility] [address] [place] [address] Dr. Saamntha Samuels SYMPTOMATIC COVID-19 ANTIGEN on 11-17-2021 EUA Statement SEE BELOW Normal [facility] Comment on above: Result Comment: This [...] sooner. Performed By: #### C VDAGS #### [facility] [address] [place] [id number] [address] Samantha Samuels SARS-CoV-2 (COVID-19) RNA DELIA+probe Ql (Unsp spec) Negative Normal NEGATIVE [facility] Comment on above: Performed By: #### C VDAGS #### [facility] [address], [place] [address] Dr. Samantha Samuels Covid-19 PCR (CVDTB)on 08-14 SARS-CoV-2 (COVID-19) RNA DELIA+probe Ql (Unsp spec) Not detected Normal NOT DETECTED [facility] Comment on above: Result Comment: This test is not yet approved or cleared by the [place] FDA. When there are no FDA-approved or cleared tests available, and other criteria are met, FDA can make tests available under an emergency access mechanism called an Emergency Use Authorization (EUA). The EUA for this test is supported by the [employer] Operator of Health and Human Service's (HHS's) declaration [...] Performed By: #### C JEMIMA, CMADM #### [facility] [address] [place] [address] Dr. Samantha Samuels INFLUENZA A AND B AGon 09-07 INFLUANEGH SEE BELOW Normal [facility] Comment on above: Result Comment: Nega tive for Flu A protein angiten. Infection due to Flu A cannot be ruled out. Flu A angiten in the sample may be below the detection limit of the test. Performed By: #### C JEMIMA, PHYLLISDM #### [facility] [address] [place] [address] Dr. Samantha Samuels INFLUBNEG SEE BELOW Normal [facility] Comment on above: Result Comment: Nega tive for Flu B protein antigen. Infection due to Flu B cannot be ruled out. Flu B antigen in the sample may be below the detection limit of the test. Performed By: #### C JEMIMA, CMADM #### [facility] [address] [place] [address] Dr. Samantha Samuels INFLUENZA A AG Negative Normal NEGATIVE SEE COMMENT [facility] Comment on above: Performed By: #### C PHYLLIS ONOFREDM #### [facility] [address], [place] [address] Dr. Samantha Samuels INFLUENZA B AG Negative Normal NEGATIVE SEE COMMENT [facility] Comment on above: Performed By: #### C MP, CMADM #### [facility] [address], [place] [address] Dr. Samantha Samuels INTERNAL CONTROLS Within Normal Limits Normal Wi thin Normal Limits [facility] Comment on above: Performed By: #### C MP, CMADM #### [facility] [address], [place] [address] Dr. Samantha Samuels Vital Signs Date Time Vital Sign Value Performing Clinician Facility 02-23-2023 13:23-0400 Body temperature 97.39 [degF] CALVIN Guzman MD Work Phone: [facility] 02-23-2023 13:23-0400 Body weight 83.46 kg CALVIN Guzman MD Work Phone: [facility] 02-23-2023 13:23-0400 Diastolic blood pressure 68 mm[Hg] CALVIN Guzman MD Work Phone: [facility] 02-23-2023 13:23-0400 Heart rate 64 /min CALVIN Guzman MD Work Phone: [facility] 02-23-2023 13:23-0400 Respiratory rate 16 /min CALVIN Guzman MD Work Phone: [facility] 02-23-2023 13:23-0400 SaO2% (BldA) [Mass fraction] 95 % CALVIN Guzman MD Work Phone: [facility] 02-23-2023 13:23-0400 Systolic blood pressure 109 mm[Hg] CALVIN Guzman MD Work Phone: [facility] 12-07-2022 14:01-0400 Body height 182.9 cm Manny Meza MD Work Phone: [facility] 12-07-2022 14:01-0400 Body weight 79.83 kg Manny Meza MD Work Phone: [facility] 12-07-2022 14:01-0400 Diastolic blood pressure 63 mm[Hg] Manny Meza MD Work Phone: [facility] 12-07-2022 14:01-0400 Heart rate 76 /min Manny Meza MD Work Phone: [facility] 12-07-2022 14:01-0400 Systolic blood pressure 108 mm[Hg] Manny Meza MD Work Phone: [facility] 11-24-2022 13:39-0400 Diastolic blood pressure 70 mm[Hg] CALVIN Guzman MD Work Phone: [facility] 11-24-2022 13:39-0400 Heart rate 63 /min CALVIN Guzman MD Work Phone: [facility] 11-24-2022 13:39-0400 Systolic blood pressure 111 mm[Hg] CALVIN Guzman MD Work Phone: [facility] 11-24-2022 13:38-0400 Body temperature 97 [degF] CALVIN Guzman MD Work Phone: [facility] 11-24-2022 13:38-0400 Body weight 80.2 kg CALVIN Guzamn MD Work Phone: [facility] 11-24-2022 13:38-0400 Respiratory rate 18 /min CALVIN Guzman MD Work Phone: [facility] 11-24-2022 13:38-0400 SaO2% (BldA) [Mass fraction] 97 % CALVIN Guzman MD Work Phone: [facility] 10-18-2022 10:13-0400 Diastolic blood pressure 50 mm[Hg] [facility] Work Phone: 10-18-2022 10:13-0400 Diastolic blood pressure 48 mm[Hg] Arline Orosco Work Phone: [facility] 600 DO Work Phone: 10-18-2022 10:130400 Systolic blood pressure 82 mm[Hg] Arline M Hoy Work Phone: [facility] 600 DO Work Phone: 10-18-2022 10:13-0400 Systolic blood pressure 72 mm[Hg] Arline M Hoy Work Phone: [facility] 600 DO Work Phone: 10-18-2022 10:130400 58 1 Arline M Hoy Work Phone: [facility] 600 DO Work Phone: Comment on above: [employer] 10-18-2022 10:130400 56 1 Arline M Hoy Work Phone: [facility] 600 DO Work Phone: Comment on above: [facility] 10-18-2022 09:54-0400 Body height 182.88 cm Arline M Hoy Work Phone: [facility] 600 DO Work Phone: 10-18-2022 09:54-0400 Body mass index (BMI) [Ratio] 24.82 kg/m2 Arline M Hoy Work Phone: [facility] 600 DO Work Phone: 10-18-2022 09:54-0400 Body surface area Derived from formula 2.05 m2 Arline M Hoy Work Phone: [facility] 600 DO Work Phone: 10-18-2022 09:54-0400 Body weight 83.01 kg Arline M Hoy Work Phone: [facility] 600 DO Work Phone: 10-18-2022 09:54-0400 Diastolic blood pressure 60 mm[Hg] Arline M Hoy Work Phone: [facility] 600 DO Work Phone: 10-18-2022 09:54-0400 Heart rate 58 /min Arline Garciay Work Phone: [facility] 600 DO Work Phone: 10-18-2022 09:54-0400 Systolic blood pressure 90 mm[Hg] Arline Garciay Work Phone: [facility] 600 DO Work Phone: 09-22-2022 12:52-0400 Body height 182.9 cm Jose Francisco Broussard MD Work Phone: [facility] 09-22-2022 12:52-0400 Body temperature 97.39 [degF] Jose Francisco Broussard MD Work Phone: [facility] 09-22-2022 12:52-0400 Body weight 79.02 kg Jose Francisco Broussard MD Work Phone: [facility] 09-22-2022 12:52-0400 Diastolic blood pressure 49 mm[Hg] Jose Francisco Broussard MD Work Phone: [facility] 09-22-2022 12:52-0400 Heart rate 79 /min Jose Francisco Broussard MD Work Phone: [facility] 09-22-2022 12:52-0400 Respiratory rate 16 /min Jose Francisco Broussard MD Work Phone: [facility] 09-22-2022 12:52-0400 SaO2% (BldA) [Mass fraction] 94 % Jose Francisco Broussard MD Work Phone: [facility] 09-22-2022 12:52-0400 Systolic blood pressure 92 mm[Hg] Jose Francisco Broussard MD Work Phone: [facility] 09-01-2022 12:55-0400 Body height 182.88 cm Arline Garciay Work Phone: [facility] 250 DO Work Phone: 09-01-2022 12:55-0400 Body mass index (BMI) [Ratio] 24.82 kg/m2 Arline Nj Hoy Work Phone: [facility] 250 DO Work Phone: 09-01-2022 12:55-0400 Body surface area Derived from formula 2.05 m2 Arline Nj Hoy Work Phone: [facility] 250 DO Work Phone: 09-01-2022 12:55-0400 Body weight 83.01 kg Arline Nj Hoy Work Phone: [facility] 250 DO Work Phone: 09-01-2022 12:55-0400 Diastolic blood pressure 62 mm[Hg] Arline Nj Hoy Work Phone: [facility] 250 DO Work Phone: 09-01-2022 12:55-0400 Heart rate 42 /min Arline Nj Hoy Work Phone: [facility] 250 DO Work Phone: 09-01-2022 12:55-0400 Systolic blood pressure 108 mm[Hg] Arline Nj Hoy Work Phone: [facility] 250 DO Work Phone: 06-20-2022 16:04-0500 Body temperature 97 [degF] Jose Francisco Broussard MD Work Phone: [facility] 06-20-2022 16:04-0500 Body weight 80.92 kg Jose Francisco Broussard MD Work Phone: [facility] 06-20-2022 16:04-0500 Diastolic blood pressure 88 mm[Hg] Jose Francisco Broussard MD Work Phone: [facility] 06-20-2022 16:04-0500 Heart rate 70 /min Jose Francisco Broussard MD Work Phone: [facility] 06-20-2022 16:04-0500 Respiratory rate 16 /min Jose Francisco Broussard MD Work Phone: [facility] 06-20-2022 16:04-0500 SaO2% (BldA) [Mass fraction] 98 % Jose Francisco Broussard MD Work Phone: [facility] 06-20-2022 16:04-0500 Systolic blood pressure 143 mm[Hg] Jose Francisco Broussard MD Work Phone: [facility] 06-07-2022 13:21-0500 Body temperature 97.59 [degF] CALVIN Guzman MD Work Phone: [facility] 06-07-2022 13:21-0500 Body weight 82.1 kg CALVIN Guzman MD Work Phone: [facility] 06-07-2022 13:21-0500 Diastolic blood pressure 89 mm[Hg] CALVIN Guzman MD Work Phone: [facility] 06-07-2022 13:21-0500 Heart rate 57 /min CALVIN Guzman MD Work Phone: [facility] 06-07-2022 13:21-0500 Respiratory rate 18 /min CALVIN Guzman MD Work Phone: [facility] 06-07-2022 13:21-0500 SaO2% (BldA) [Mass fraction] 99 % CALVIN Guzman MD Work Phone: [facility] 06-07-2022 13:21-0500 Systolic blood pressure 169 mm[Hg] CALVIN Guzman MD Work Phone: [facility] 03-22-2022 13:09-0500 Body temperature 97.39 [degF] CALVIN Guzman MD Work Phone: [facility] 03-22-2022 13:09-0500 Body weight 81.65 kg CALVIN Guzman MD Work Phone: [facility] 03-22-2022 13:09-0500 Diastolic blood pressure 64 mm[Hg] CALVIN Guzman MD Work Phone: [facility] 03-22-2022 13:09-0500 Heart rate 56 /min CALVIN Guzman MD Work Phone: [facility] 03-22-2022 13:09-0500 Respiratory rate 18 /min CALVIN Guzman MD Work Phone: [facility] 03-22-2022 13:09-0500 SaO2% (BldA) [Mass fraction] 97 % CALVIN Guzman MD Work Phone: [facility] 03-22-2022 13:09-0500 Systolic blood pressure 125 mm[Hg] CALVIN Guzman MD Work Phone: [facility] Encounters Encounter Date Encounter Type Care Provider Facility Start: 05-24-2023 End: 05-24-2023 ambulatory JAMES ROBB Facility:[place] Start: 05-22-2023 End: 05-22-2023 ambulatory BARB KIRAN Facility:[place] Start: 05-17-2023 End: 05-17-2023 ambulatory Ace GUZMAN Facility:[place] Start: 05-12-2023 End: 05-12-2023 ambulatory JAMES ROBB Facility:[place] Start: 04-10-2023 End: 04-10-2023 ambulatory JOSE FRANCISCO BROUSSARD Facility:[place] Start: 04-10-2023 Telephone encounter Ace Guzman MD Work Phone: [facility] Comment on above: Nm Pet Request Start: 04-03-2023 End: 04-03-2023 ambulatory JOSE FRANCISCO BROUSSARD Facility:[place] Start: 03-27-2023 End: 03-27-2023 ambulatory Skin Biopsy Work Phone: Neurology Start: 03-27-2023 End: 03-27-2023 Patient encounter procedure Skin Biopsy Work Phone: [facility] Start: 03-27-2023 End: 03-27-2023 ambulatory ARLINE OROSCO Neurology Start: 03-27-2023 End: 03-27-2023 Patient encounter procedure Autonomic 1 Neur Main Work Phone: [facility] Start: 02-23-2023 End: 02-24-2023 ambulatory Ace FOX ENGHOMA Facility:[place] Start: 02-23-2023 End: 02-24-2023 Patient encounter procedure Ace Guzman MD Work Phone: Radiation Oncology Comment on above: History of prostate cancer (Primary Dx); Prostate cancer (HCC) Start: 02-21-2023 End: 02-21-2023 ambulatory Ace RODRIGUEZHOMA Facility:[place] Start: 02-15-2023 End: 02-16-2023 ambulatory BARB KIRAN Facility:[facility] Start: 01-04-2023 End: 01-05-2023 ambulatory ARLINE KWESI Facility:[place] Start: 12-28-2022 Telephone encounter Umer gentile RN Work Phone: Hematology/Oncology Comment on above: Care Coordination (R adiation Appointment) Start: 12-26-2022 End: 12-27-2022 ambulatory JOSE FRANCISCO BROUSSARD Facility:[place] Start: 12-26-2022 End: 12-27-2022 ambulatory [facility] Work Phone: Hematology/Oncology Comment on above: Osteopenia of multip le sites (Primary Dx); Prostate cancer (HCC) Start: 12-19-2022 End: 12-19-2022 ambulatory ARLINE M TWANAlisson Facility:[place] Start: 12-07-2022 End: 12-07-2022 Patient encounter procedure Manny Meza MD Work Phone: Urology Comment on above: Malignant neoplasm o f prostate (HCC) Start: 12-07-2022 End: 12-08-2022 ambulatory Manny Meza MD Work Phone: Urology Start: 11-24-2022 End: 11-24-2022 ambulatory Ace GUZMAN Facility:[place] Start: 11-24-2022 End: 11-24-2022 Patient encounter procedure Ace Guzman MD Work Phone: Radiation Oncology Comment on above: Malignant neoplasm o f prostate (HCC) (Primary Dx) Start: 11-17-2022 End: 11-17-2022 ambulatory Ace GUZMAN Facility:[place] Start: 10-18-2022 Office outpatient vi sit 25 minutes Arline Orosco Work Phone: [facility] 600 DO Work Phone: Start: 10-18-2022 ambulatory Baldo Gifford Facilit y: Start: 10-11-2022 AUDIT Arline Orosco Work Phone: [facility] 250 DO Work Phone: Start: 09-22-2022 End: 09-22-2022 ambulatory JOSE FRANCISCO BROUSSARD Facility:[place] Start: 09-22-2022 End: 09-22-2022 ambulatory Jose Francisco Broussard MD Work Phone: Hematology/Oncology Comment on above: Prostate cancer (HCC ) (Primary Dx); Osteopenia of multiple sites; Primary hypertension Start: 09-22-2022 End: 09-22-2022 Patient encounter procedure Jose Francisco Broussard MD Work Phone: [facility] Start: 09-20-2022 End: 09-20-2022 ambulatory ARLINE OROSCO Facility:[place] Start: 09-19-2022 Chart Update Arline Orosco Work Phone: [facility] 250 DO Work Phone: Start: 09-13-2022 End: 09-13-2022 ambulatory Baldo Gifford Facility:[facility] Start: 09-02-2022 End: 09-02-2022 ambulatory Arline Orosco Facility:[facility] Start: 09-02-2022 End: 09-02-2022 ambulatory MD Arline Orosco Work Phone: [facility] Work Phone: Start: 09-02-2022 End: 09-02-2022 Patient encounter procedure MD Arline Orosco Work Phone: [facility] [place] Work Phone: Start: 09-01-2022 Office consultation new/estab patient 80 min Arline Orosco Work Phone: -[facility] 250 DO Work Phone: Start: 09-01-2022 ambulatory Baldo Gifford Facilit y: Start: 08-18-2022 End: 08-18-2022 ambulatory Ace GUZMAN Facility:[place] Start: 08-15-2022 ambulatory ARLINE OROSCO Facility: [facility] Start: 08-15-2022 End: 08-15-2022 Subsequent hospital visit by physician [place] [id number] (I-Stat/3t) Work Phone: Radiology Comment on above: Cancer of prostate w /med recur risk (T2b-c or [place] 7 or PSA 10-20) (HCC) [C61] Start: 08-02-2022 End: 08-02-[address] ARLINE OROSCO . Facility:[facility] Start: 07-31-2022 End: 08-01-2022 ambulatory RYLEE LOPEZ Facility:[facility] Start: 07-25-2022 Telephone encounter Kiera Angelo RN Work Phone: Hematology/Oncology Comment on above: Care Coordination (M edication update) Start: 07-21-2022 End: 07-22-2022 ambulatory RYLEE LOPEZ Facility:[facility] Start: 07-18-2022 End: 07-18-2022 ambulatory LOLA ALLEN Facility:[facility] Start: 07-18-2022 End: 07-18-2022 Patient encounter procedure Lola Allen OD Work Phone: Ophthalmology Comment on above: Hypertropia of right eye (Primary Dx); Pseudophakia of both eyes; Myopia with astigmatism and presbyopia, bilateral; PVD (posterior vitreous detachment), both eyes; Dry eye syndrome, bilateral Start: 07-13-2022 Telephone encounter Darlene Young [facility] Comment on above: Medication Problem Start: 07-07-2022 End: 07-08-2022 ambulatory JOSE FRANCISCO BROUSSARD Facility:[place] Start: 07-07-2022 End: 07-07-2022 ambulatory [facility] Work Phone: Hematology/Oncology Comment on above: Prostate cancer (HCC ) (Primary Dx) Start: 06-27-2022 [facility] Comment on above: Medication Update (F MACEDONIAN patient deciding to move forward with Xtandi beyond 14 day free trial.) Start: 06-22-2022 Telephone encounter Hien Swan [facility] Work Phone: [facility] Comment on above: Medication Update (X tandi) Start: 06-21-2022 Telephone encounter Nadira chapa [facility] Work Phone: [facility] Comment on above: Medication Authoriza tion (Xtandi) Start: 06-20-2022 End: 06-20-2022 ambulatory Jose Francisco Broussard MD Work Phone: Hematology/Oncology Comment on above: Prostate cancer (HCC ) (Primary Dx) Start: 06-20-2022 End: 06-20-2022 Patient encounter procedure Jose Francisco Broussard MD Work Phone: [facility] Start: 06-16-2022 Chart abstracting Jose Francisco lynne MD Work Phone: Hematology/Oncology Start: 06-07-2022 End: 06-07-2022 ambulatory ARLINE OROSCO Facility:[place] Start: 06-07-2022 End: 06-07-2022 Patient encounter procedure Ace Guzman MD Work Phone: Radiation Oncology Comment on above: Cancer of prostate w /med recur risk (T2b-c or [place] 7 or PSA 10-20) (HCC) (Primary Dx) Start: 06-02-2022 End: 06-02-2022 ambulatory ARLINE Nj Alisson Facility:[place] Start: 05-17-2022 End: 05-18-[address] ARLINE OROSCO . Facility:[facility] Start: 04-19-2022 Telephone encounter Ace Guzman MD Work Phone: [facility] Comment on above: Nm Pet Request Start: 03-24-2022 End: 03-25-[address] ARLINE OROSCO . Facility:[facility] Start: 03-22-2022 End: 03-22-2022 Patient encounter procedure Ace Guzman MD Work Phone: Radiation Oncology Comment on above: History of prostate cancer (Primary Dx); Cancer of prostate w/med recur risk (T2b-c or [place] 7 or PSA 10-20) ([facility]) Start: 03-18-2022 End: 03-19-[address] ARLINE OROSCO . Facility:[facility] Start: 03-14-2022 End: 03-15-[address] ARLINE OROSCO . Facility:[facility] Start: 11-18-2021 End: 11-19-2021 ambulatory LEROY SHAW Facility:[facility] Start: 11-17-2021 End: 11-17-[address] ARLINE OROSCO . Facility:[facility] Start: 09-07-2021 End: 09-07-[address] ARLINE OROSCO . Facility:[facility] Start: 08-23-2021 End: 08-23-2021 Patient encounter procedure Lola Allen OD Work Phone: Ophthalmology Comment on above: Hypertropia of right eye (Primary Dx); Diplopia; Pseudophakia of both eyes; Monocular diplopia of right eye Start: 06-23-2021 Preprocedural examination done Lola Allen OD Work Phone: [facility] Work Phone: Start: 02-28-2017 End: 03-01-2017 Ambulatory DEFAULT PHYSICIAN Facility:[facility] Procedures Date Procedure Procedure Detail Performing Clinician Start: 12-07-2022 Urnls dip stick/tabl et reagent auto microscopy Bulk Order Provider Start: 08-15-2022 Mri pelvis w/o & w/contrast material Ace Guzman MD Work Phone: Start: 03-14-2022 PSA screening LEROY CORRIGAN Comment on above: Performed By: #### C MP, CMADM #### [facility] [address] [address] [address] Samantha Samuels Start: 11-18-2021 PSA screening LEROY CORRIGAN Comment on above: Performed By: #### C MP, CMADM #### [facility] [address] [address] [address] Samantha Samuels Start: 03-15-2021 Adult depression screening assessment Lola Allen OD Work Phone: Start: 11-18-2019 Colonoscopy Lola Tamia goodman OD Work Phone: Start: 08-27-2018 Lipid 1996 panel - S beverly or Plasma NA Megan GUTIERREZ Work Phone: Appendectomy Arline Orosco Work Phone: Hernia repair Arline Orosco Work Phone: Procedure on prostate Alejandro s Clem Orosco Work Phone: Scrotum and testicle operation Arline M Kwesi Work Phone: Total colonoscopy Arline M Kwesi Work Phone: Plan of Treatment Date Care Activity Detail Author Start: 02-15-2026 Diabetes Screening Diabetes Screenin g [facility] Start: 02-06-2026 Urine microalbumin profile [facility] Start: 09-20-2025 DIABETES SCREEN DIABETES SCREEN [facility] Start: 07-07-2025 DIABETES SCREEN DIABETES SCREEN [facility] Start: 06-23-2024 DIABETES SCREEN DIABETES SCREEN [facility] Start: 04-10-2024 BP Controlled (<130/80) BP Controlle d (<130/80) [facility] Start: 02-24-2024 BP Controlled (<130/80) BP Controlle d (<130/80) [facility] Start: 12-27-2023 BP CONTROLLED (<130/80) BP CONTROLLE D (<130/80) [facility] Start: 12-08-2023 BP CONTROLLED (<130/80) BP CONTROLLE D (<130/80) [facility] Start: 11-25-2023 BP CONTROLLED (<130/80) BP CONTROLLE D (<130/80) [facility] Start: 09-23-2023 BP CONTROLLED (<130/80) BP CONTROLLE D (<130/80) [facility] Start: 08-28-2023 Lipid 1996 panel - S beverly or Plasma Lipid Screening [facility] Start: 08-28-2023 LIPID SCREEN LIPID SCREEN [facility] Start: 07-07-2023 BP CONTROLLED (<130/80) BP CONTROLLE D (<130/80) [facility] Start: 05-26-2023 End: 03-24-2024 NM PET/CT PROSTATE WHOLE BODY IMAGING NM PET/CT PROSTATE WHOLE BODY IMAGING Radiology Routine Prostate cancer (HCC) Expected: 05/26/2023, Expires: 03/24/2024 [facility] Work Phone: Comment on above: Expected: 05/26/2023 , Expires: 03/24/2024 Start: 03-22-2023 BP CONTROLLED (<130/80) BP CONTROLLE D (<130/80) [facility] Start: 03-22-2023 End: 05-22-2023 Prostate specific Ag [Mass/volume] in Serum or Plasma PSA/PROSTSPECAG DIAG Lab Routine History of prostate cancer Expected: 03/22/2023, Expires: 05/22/2023 [facility] Work Phone: Comment on above: Expected: 03/22/2023 , Expires: 05/22/2023 Start: 02-08-2023 FUV, Provider: Baldo Gifford, Status: Terry, Time: 9:30 AM FUV, Provider: Baldo Gifford, Status: Terry, Time: 9:30 AM -[facility] 600 DO Work Phone: Start: 01-13-2023 Influenza vaccination C [facility] Start: 12-28-2022 End: 02-27-2023 CBC W Auto Differential panel - Blood CBC + DIFF Lab Routine Osteopenia of multiple sites Prostate cancer (HCC) Expected: 12/28/2022 (Approximate), Expires: 02/27/2023 [facility] Work Phone: Comment on above: Expected: 12/28/2022 (Approximate), Expires: 02/27/2023 Start: 12-28-2022 End: 02-27-2023 Comprehensive metabolic 2000 panel - Serum or Plasma COMP METABOLIC PANEL Lab Routine Osteopenia of multiple sites Prostate cancer (HCC) Expected: 12/28/2022 (Approximate), Expires: 02/27/2023 [facility] Work Phone: Comment on above: Expected: 12/28/2022 (Approximate), Expires: 02/27/2023 Start: 12-28-2022 End: 02-27-2023 Prostate specific Ag [Mass/volume] in Serum or Plasma PSA/PROSTSPECAG DIAG Lab Routine Osteopenia of multiple sites Prostate cancer (HCC) Expected: 12/28/2022 (Approximate), Expires: 02/27/2023 [facility] Work Phone: Comment on above: Expected: 12/28/2022 (Approximate), Expires: 02/27/2023 Start: 10-18-2022 FUV, Provider: Baldo Gifford, Status: Pen, Time: 9:20 AM FUV, Provider: Baldo Gifford, Status: Pen, Time: 9:20 AM [facility] 250 DO Work Phone: Start: 10-06-2022 FUV, Provider: Baldo Gifford, Status: Pen, Time: 3:10 PM FUV, Provider: Baldo Gifford, Status: Pen, Time: 3:10 PM [facility] 250 DO Work Phone: Start: 09-02-2022 Doppler ultrasonogra phy of bilateral carotid arteries US carotid doppler BI [facility] Start: 09-02-2022 US.doppler Carotid arteries - bilateral [facility] Start: 06-23-2022 BP CONTROLLED (<130/80) BP CONTROLLE D (<130/80) [facility] Start: 05-22-2022 End: 04-21-2023 NM PET/CT PROSTATE WHOLE BODY IMAGING NM PET/CT PROSTATE WHOLE BODY IMAGING Radiology Routine History of prostate cancer Cancer of prostate w/med recur risk (T2b-c or Kita 7 or PSA 10-20) ([facility]) Expected: 05/22/2022, Expires: 04/21/2023 [facility] Work Phone: Comment on above: Expected: 05/22/2022 , Expires: 04/21/2023 Start: 05-22-2022 End: 07-22-2022 Prostate specific Ag [Mass/volume] in Serum or Plasma PSA/PROSTSPECAG DIAG Lab Routine Cancer of prostate w/med recur risk (T2b-c or Kita 7 or PSA 10-20) ([facility]) Expected: 05/22/2022, Expires: 07/22/2022 [facility] Work Phone: Comment on above: Expected: 05/22/2022 , Expires: 07/22/2022 Start: 05-22-2022 End: 07-22-2022 Testosterone [Mass/volume] in Serum or Plasma TESTOSTERONE TOTAL Lab Routine Cancer of prostate w/med recur risk (T2b-c or [place] 7 or PSA 10-20) ([facility]) Expected: 05/22/2022, Expires: 07/22/2022 [facility] Work Phone: Comment on above: Expected: 05/22/2022 , Expires: 07/22/2022 Start: 05-15-2022 ADVANCE DIRECTIVE DISCUSSION ADVANCE DIRECTIVE DISCUSSION [facility] Start: 05-15-2022 DEPRESSION ASSESSMENT [facility] Start: 03-15-2022 Adult depression screening assessment DEPRESSION SCREENING [facility] Start: 05-15-2021 ADVANCE DIRECTIVE DISCUSSION ADVANCE DIRECTIVE DISCUSSION [facility] Start: 05-15-2021 DEPRESSION ASSESSMENT DEPRESSION ASS ESSMENT [facility] Start: 11-17-2020 Colonoscopy COLONOSCOPY [facility] Start: 11-17-2020 COLORECTAL CANCER SCREENING COLORECTAL CANCER SCREENING [facility] Start: 2007 RSV Vaccine (1 - 1-d ose 60+ series) RSV Vaccine (1 - 1-dose 60+ series) [facility] Start: 12-29-2002 Influenza vaccination LUNG CANCER [facility] Start: 12-29-1997 Influenza vaccination LUNG CANCER [facility] Start: 12-29-1992 COLOGUARD (FIT-DNA) COLOGUARD (FIT-D NA) [facility] Start: 12-29-[address] COLONOGRAPHY [facility] Start: 12-29-1992 FECAL OCCULT BLOOD FECAL OCCULT BLOO D [facility] Start: 12-29-1992 SIGMOIDOSCOPY SIGMOIDOSCOPY [facility] Start: 12-29-1977 Zoledronic acid therapy ALPHA- 1 ANTITRYPSIN DEFICIENCY SCREENING [facility] Start: 12-29-1965 ANNUAL PCP TEAM 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 AZAR DISEASE VISIT ANNUAL PCP TEAM CHRONIC DISEASE VISIT [facility] Start: 12-29-1965 BP CONTROLLED (<130/80) BP CONTROLLE D (<130/80) [facility] Start: 12-29-1965 HEPATITIS C SCREENING HEPATITIS C SC REENING [facility] Start: 12-29-1965 SPIROMETRY SPIROMETRY [facility] Start: 12-29-1952 COVID-19 VACCINE (1) COVID-19 VACCIN E (1) [facility] Start: 07-01-1948 COVID-19 VACCINE (#1) COVID-19 VACCI NE (#1) [facility] Start: 1945 ABDOMINAL AORTIC ANE URYSM SCREENING ABDOMINAL AORTIC ANEURYSM SCREENING [facility] End: 07-07-2023 Mri pelvis w/o & w/contrast material MRI PROSTATE WO/W IVCON Radiology Routine Cancer of prostate w/med recur risk (T2b-c or Kita 7 or PSA 10-20) (HCC) 1 Occurrences starting 06/07/2022 until 07/07/2023 [facility] Work Phone: Comment on above: 1 Occurrences starti ng 06/07/2022 until 07/07/2023 [facility] Immunizations Immunization Date Immunization Notes Care Provider Rqoue colon 02-12-2022 influenza nasal, unspecified formulation CALVIN Guzman MD Work Phone: [facility] 02-12-2022 influenza virus vaccine, unspecified formulation Arline Orosco Work Phone: [facility] 250 DO Work Phone: 02-18-2021 Fluzone High-Dose Quadrivalent 0.7 ML Intramuscular Suspension Prefilled Syringe Arline Orosco Work Phone: [facility] 02-12-2021 seasonal influenza, intradermal, preservative free CALVIN Guzman MD Work Phone: [facility] 02-04-2020 influenza nasal, unspecified formulation CALVIN Guzman MD Work Phone: [facility] 02-04-2020 influenza virus vaccine, unspecified formulation Arline Orosco Work Phone: [facility] 250 DO Work Phone: 01-26-2020 influenza, high-dose , quadrivalent vaccine (FLUZONE HIGH DOSE QUADRIVALENT) Lola Allen OD Work Phone: [facility] 01-14-2020 influenza, high dose seasonal, preservative-free Arline Orosco Work Phone: [facility] 02-01-2019 AS03 adjuvant CALVIN Guzman MD Work Phone: [facility] 02-01-2019 Seasonal trivalent influenza vaccine, adjuvanted, preservative free Lola Loudlager OD Work Phone: [facility] 01-10-2019 zoster vaccine recombinant Lola Loudenslager OD Work Phone: [facility] 10-14-2018 zoster vaccine recombinant Lola Loudenslager OD Work Phone: [facility] 01-29-2018 AS03 adjuvant CALVIN Guzman MD Work Phone: [facility] 01-29-2018 Seasonal trivalent influenza vaccine, adjuvanted, preservative free Lola Loudenslager OD Work Phone: [facility] 02-10-2017 influenza, high dose seasonal, preservative-free Lola Loudenslager OD Work Phone: [facility] 02-10-2017 pneumococcal conjuga te vaccine, 13 valent Lola Loudenslager OD Work Phone: [facility] 03-04-2016 influenza, seasonal, injectable, preservative free CALVIN Guzman MD Work Phone: [facility] 03-04-2016 seasonal influenza, intradermal, preservative free Lola Loudenslager OD Work Phone: [facility] 02-07-2016 influenza, high dose seasonal, preservative-free Lola Loudenslager OD Work Phone: [facility] 02-07-2016 tetanus toxoid, redu mara diphtheria toxoid, and acellular pertussis vaccine, adsorbed Lola Loudenslager OD Work Phone: [facility] 04-16-2014 influenza, high dose seasonal, preservative-free Lola Loudenslager OD Work Phone: [facility] 04-16-2014 pneumococcal polysaccharide vaccine, 23 valent Lola Loudenslager OD Work Phone: [facility] 03-07-2014 pneumococcal polysaccharide vaccine, 23 valent Lola Loudenslager OD Work Phone: [facility] 02-27-2014 influenza, seasonal, injectable, preservative free CALVIN Guzman MD Work Phone: [facility] 02-27-2014 seasonal influenza, intradermal, preservative free Lola Loudenslager OD Work Phone: [facility] 02-20-2013 pneumococcal polysaccharide vaccine, 23 valent Lola Loudenslager OD Work Phone: [facility] Payers Date Payer Category Payer Self-pay [id number] 2018 Unknown 2018 Unknown [employer] S AND BLUE SHIELD [employer] HMO [id number] 2018-Present [phone] [address] [place] [address] O [id number] 1959 Unknown [id number] 1947 Unknown [id number] 1947 Unknown [id number] [id number] 1947 Unknown [id number] [id number] 1947 Unknown [id number] [id number] 1947 Unknown [id number] [id number] 1947 Unknown [id number] 2.16.840.1.531517.3.579.2.593 1947 Unknown [id number] [id number] 1947 Unknown [id number] 2.16.840.1.083111.3.579.2.593 1947 Unknown [id number] 2.16.840.1.465443.3.579.2.593 1947 Unknown [id number] 2.16.840.1.772828.3.579.2.593 1947 Unknown [id number] [id number] 1947 Unknown [id number] [id number] 1945 Unknown [id number] [id number] Medicare Medicare-OP No Part B [id number] Unknown Abdi BC/BS [id number] Unknown [id number] Unknown [id number] [id number] Unknown [id number] [id number] Social History Date Type Detail Facility Start: 04-03-2012 End: 07-07-2022 Tobacco smoking status PRIS Smokes tobacco daily [facility] History of tobacco use Cigarette Smoker [facility] Start: 04-03-2012 End: 09-22-2022 Cigarettes smoked current (pack per day) - Reported 1 [facility] Comment on above: 1 PPD; Start: 04-03-2012 End: 07-07-2022 Tobacco use and exposure Smokeless tobacco non-user [facility] Start: 08-23-2021 End: 04-10-2023 Alcohol intake Current non-drinker of alcohol (finding) [facility] Start: 1945 Sex Assigned At Male [facility] Start: 03-12-2022 End: 03-22-2022 Exposure to SARS-CoV-2 (event) Not sure [facility] History of tobacco use Passive smoker [facility] Start: 10-01-2018 Tobacco smoking stat us PRIS Smoker (finding) [facility] Start: 09-22-2022 End: 11-24-2022 Tobacco use panel [facility] Adult Depression Screening Assessment 1 [facility] Start: 06-10-2019 Gender identity Identifies as male gender (finding) [facility] Start: 06-10-2019 Sexual orientation Heterosexual (ravinder aguilar) [facility] Clinical Notes 06-23-2021 to 05-24-2023 Telephone Encounter - Brenda Hayden - 04/11/2023 9:47 AM ESTTelephone Encounter - Brenda Hayden - 04/11/2023 9:34 AM ESTTelephone Encounter - Kiera Williamson - 04/10/2023 3:27 PM EST Note Date & Type Note Facility 05-24-2023 Note HNO ID: [id number] Author: JAMES ROBB MD Service: ? Author Type: Physician Type: Progress Notes Filed: 05/24/2023 08:14 Note Text: PATIENT NAME: Jm Barrow [facility] CLINICAL NOTE Radiation Oncology PATIENT NAME: Jm Barrow CLINIC NO.: [id number] ATTENDING PHYSICIAN: James Robb M.D. DATE OF SERVICE: May 24, 2023 I spent 15 minutes in the visit, with more than 50% of the total [id number] time of the visit in counseling / coordination of care. This appointment was done virtually with the consent of the patient. The appointment was conducted while I was at [facility]. 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 Multiple episodes of hematuria since and a biochemical recurrence treated with Lupron now with PSA elevation on Lupron. PSMA PET shows prostate-only recurrence: PSMA PET from 05/12/2023 - PSMA positive lesion in the paramedian right [...] year imaging follow-up for AAA is advised. Physical exam of the prostate was deferred. ASSESSMENT: local recurrence s/p EBRT. Risks, benefits, and alternatives discussed and he wishes to consult his local physicians about the options as well. The risk of urethritis and fistula was discussed as being greater than a de garrett treatment. PLAN: He will return a decision after discussing with his local physicians. James Robb M.D. This note has been electronically signed. May 24, 2023 cc: Dr. Megan Orosco MD [address] [facility] [id number] [facility] 05-22-2023 Note HNO ID: [id number] Author: BARB KIRAN MD Service: ? Author Type: Physician Type: Progress Notes Filed: 05/22/2023 14:10 Note Text: Neurology Follow-Up(virtual) - May 22, 2023 Jm Barrow is following up for neuropathy. He was last seen on 02/15/23. Notes from previous visits are as follows: 02/15/23: He has h/o prostate cancer s/p radiation [...] BP may drop by 10-15 points. His able bodied seaman was concerned about autonomic neuropathy; recommending to [...] prostate cancer. 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 Interval history: Cardio autonomic test(mar 2023) showed mild orthostatic hypotension, QSART(mar 2023) is normal; skin biopsy(mar 2023) was compatible with small fiber neuropathy. Blood work (feb 2023) was overall unremarkable except for isolated elevated kappa free light chains without M-protein. He mentions that he was asked to stop some of his medications for the autonomic study(escitalopram, trazdone, oxybutin) and has not restarted as he was feeling better. BP is better and he is feeling better; his physicians are aware he has been off these medications and has been advised to continue to be off them. Current Outpatient Medications Medication Sig Dispense Refill simvastatin (ZOCOR) 10 mg tablet Take 10 mg by mouth daily at bedtime. irbesartan (AVAPRO) 75 mg tablet Take 75 mg by mouth daily at bedtime. chlorthalidone (HYGROTON) 25 mg tablet Take 25 mg by mouth once daily. metoprolol succinate ER (TOPROL XL) 25 mg 24 hr tablet Take 25 mg by mouth once daily. fluticasone-vilanterol (BREO ELLIPTA) 100-25 mcg/dose inhaler Inhale 1 Inhalation as instructed once daily. calcium-cholecalciferol, D3, (OSCAL+D 250) 250 mg-3.125 mcg (125 unit) per tablet Take 1 tablet by mouth once daily. ascorbic acid, vitamin C, (VITAMIN C) 500 mg tablet Take 500 mg by mouth once daily. MULTI-VITAMIN ORAL Take by mouth. tamsulosin (FLOMAX) 0.4 mg Take 0.4 mg [...] No current facility-administered medications for this visit. Family and social history reviewed, unchanged. REVIEW OF SYSTEMS: per HPI General: no wt. loss/gain, change in appetite, fever, malaise HEENT: no headache, problems with vision, hearing Cardiac: no chest pain, palpitation Respiratory: no shortness of breath, cough, cold GI: no change in bowel habits, abdominal pain : no incontinence, frequency, urgency Musculoskeletal: no joint/muscle pain, no swelling DIAGNOSTIC TESTS: Skin biopsy - 04/04/23 There is a reduction of the epidermal fiber densities at both sites. This would be consistent with a small fiber sensory neuropathy QSART - 03/27/23 QSART responses at the left proximal leg and distal leg are low but the responses at the left forearm and foot are normal. 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 This process is atypical in that it is non-length dependent. Neuroautonomic testing with tilt - 04/13/23 Hea (more content not included)... [facility] 05-17-2023 Note HNO ID: [id number] Author: Ace Guzman MD Service: ? Author Type: Physician Type: Progress Notes Filed: 05/17/2023 12:58 PM Note Text: Radiation Oncology - Follow [...] TUR undergoing surveillance. INTERVAL HISTORY: Doing well. His blood pressure issues have resolved after discontinuing some medicines. Denies any other new problems. Denies any change in bladder function. Has occasional urge related incontinence but generally good function. No dysuria or hematuria. RADIOLOGY: PSMA PET scan 05/12/2023: PSMA positive lesion in the paramedian right [...] year imaging follow-up for AAA is advised. Prostate MRI 08/15/2022: IMPRESSION: Region of asymmetric, [...] neoplastic process PSA HISTORY: PSA Date Value 04/03/2023 0.67 ng/mL 02/21/2023 0.49 ng/mL 12/19/2022 0.48 ng/mL 11/17/2022 0.49 ng/mL 02/03/2014 0.17 ng/mL 11/12/2013 <0.06 07/15/2013 [...] Take 25 mg by mouth once daily. fluticasone-vilanterol (BREO ELLIPTA) 100-25 mcg/dose inhaler Inhale 1 Inhalation as instructed once daily. calcium-cholecalciferol, D3, (OSCAL+D 250) 250 mg-3.125 mcg (125 unit) per tablet Take 1 tablet by mouth once daily. ascorbic acid, vitamin C, (VITAMIN C) 500 mg tablet Take 500 mg by mouth once daily. MULTI-VITAMIN ORAL Take by mouth. tamsulosin (FLOMAX) 0.4 mg Take 0.4 mg [...] Inject 45 mg intramuscularly one time only. pantoprazole DR (PROTONIX) 40 mg tablet Take 40 mg by mouth once daily. oxybutynin (DITROPAN) 5 mg tablet Take 5 mg by mouth twice daily. escitalopram oxalate (LEXAPRO) 20 mg tablet Take 20 mg by mouth once daily. doxazosin mesylate (CARDURA ORAL) Take 6 mg by mouth. PERTINENT REVIEW OF SYSTEMS: Hematuria: none Dysuria: none Incontinence: none Urgency:mild Catheter use: none Medications to aid urination: Yes Bowel movement frequency: 1-3/day Bowel movement quality: normal Blood per rectum: none lupron restarted 01/29 PHYSICAL EXAM: 05/17/23 1024 BP: 122/73 Resp: 16 Temp: (!) 35.8 ?C (96.5 ?F) SpO2: 97% Weight: 81.5 kg (179 lb 10.8 oz) KPS: 100 General appearance: Alert and oriented. No acute distress. Skin: Skin color, texture, turgor normal, no suspicious rashes or lesions. ASSESSMENT/PLAN: 1. Bladder cancer. doing well without evidence of recurrence has continued follow-up with Dr. Shaw. 2 Prostate cancer Kita 8, (more content not included)... [facility] 05-12-2023 Note HNO ID: [id number] Author: Umer Browne, RT(R) Service: ? Author Type: Technologist Type: Progress Notes Filed: 05/12/2023 2:47 PM Note Text: RADIOLOGY SERVICE PROGRESS NOTE SERVICE DATE: 05/12/2023 SERVICE TIME: 2:47 PM PATIENT IDENTITY VERIFICATION COMPLETED USING TWO (2) STANDARD IDENTIFIERS: Name and Date of confirmed by patient verbally POST EXAM PIV STATUS: Discontinued PROCEDURE TYPE: NM INJECT: PET/CT BODY SCAN. 10.8 mCi [id number]. No other medications given.. ADMINISTRATION TIME: 1321 PATIENT DISCHARGED TO: Ambulatory patient, left NM department area. A Diagnostic radioactive procedure has taken place, with no further precautions necessary other than routine body substance precautions. More information regarding radiation safety can be found using this link: [email or web address] SIGNATURE: RT Radha(R) PATIENT NAME: Jm Barrow DATE: May 12, 2023 TIME: 2:47 PM PAGER/CONTACT #: [facility] 05-12-2023 Note HNO ID: [id number] Author: Tiffany Riddle RN Service: ? Author [...] DATE: May 12, 2023 TIME: 1:21 PM [facility] 04-11-2023 Miscellaneous Notes Auth#:[id number] Date Range: 04-11-23 to 07-09-2023 59987/PSMA- piflufolastat (Pylarify) F-18 Ace Montoya INS Contact Number: Intake: online Case/Ref#: [id number] Notes: 04/11/2023 Authorized online via Sherie/Abdi routed to [place] jos[place] luis Dur[facility] for scheduling in [place] per patient's request Authorization number: PSMA Authorization date range: PSMA Primary Insurance: [employer] SHIELD/[employer] HMO Diagnosis: Prostate cancer (HCC) [C61] DX Imaging: PET Scan: 06/02/2022 PET Pathology: 02/14/2000 Pelvic lymph node biopsy ([facility], Dr. Doug Regalado) Metastatic prostate adenocarcinoma involving 1 of 3 lymph nodes (right obturator LN) PROSTATE GLAND, LEFT, LEVELS 1-4 , NEEDLE BIOPSIES ([id number], A-D) - PROSTATIC ADENOCARCINOMA, KITA SCORE 7 (4+3). Comment: Adenocarcinoma involves 60% of the needle biopsy specimens. Perineural invasion is present. 2. PROSTATE GLAND, RIGHT, LEVELS 1-4, NEEDLE BIOPSIES ([id number]; E-H) - PROSTATIC ADENOCARCINOMA, KITA SCORE 7 (4+3) 01/20/2000 TRUS prostate biopsy ([facility]) Prostate adenocarcinoma, Kita composite score 8 Labs: [...] No - Schedule as requested Comments for Simulation Software Engineer: EL: As soon as insurance will allow ROUTE TO SCHEDULERS POOL P PET CRATER AND PACKER or P [place] [facility] This form is used for MAIN CAMPUS APPOINTMENTS ONLY. Is this request for a [facility] [place] PET scan appointment? Yes: Technology Applications Teacher: Kiera Trejo [facility] Requesting Person Dr guzman: Area Code + Phone/Pager: [phone] Who do we call to schedule this appointment? Other Contact: PSMA pet please message anne browne in [place] Requesting Staff Dr guzman Area Code + Phone/Pager: [phone] PET Orders (A delay in scheduling will [...] patient need anesthesia? NO Send requests to [facility] documented in this encounter [facility] 04-10-2023 Note HNO ID: [id number] Author: Jose Francisco Broussard MD Service: ? [...] he was seen by Dr. Robb at [facility] to discuss possible brachytherapy for his localized [...] CATARACT, INSERT LENS,EX Bilateral 06/2019 Dr. Grimm [place], [place] TONSILLECTOMY HX FAMILY HISTORY: FAMILY HISTORY Problem [...] jaundice. ENDO/URO: Negati (more content not included)... [facility] 03-27-2023 Note HNO ID: [id number] Author: Skye Murphy PA-C Service: ? Author Type: Physician Electric Organ Assembler Type: Progress Notes Filed: 03/27/2023 3:12 PM Note Text: Skin Biopsy Procedure Note Skin Biopsy Accession Number: [id number] Biopsy Date: 03/27/2023 Referring physician: Barb Kiran [...] Procedure Note Procedure confirmed with provider and it support consultant. Yes, left leg 2 skin biopsies. The [...] labeled and sent to [facility] Cutaneous Nerve Laboratory. Procedure was performed by: Skye Murphy PA-C Assistance in supply/equipment preparation performed by: JUSTINO Mosley Sign out is complete. [facility] 03-27-2023 Note HNO ID: [id number] Author: Martha White Service: ? Author Type: [...] Care Visit completed when applicable. Martha White [facility] 03-27-2023 Note HNO ID: [id number] Author: ChristopherMartha Service: ? Author Type: ? Type: Progress [...] of Care Visit completed when applicable. [facility] 03-27-2023 History of Presen t illness Narrative Skin Biopsy Procedure Note Skin Biopsy Accession Number: [id number] Biopsy Date: 03/27/2023 Referring physician: Barb Kiran [...] Procedure Note Procedure confirmed with provider and it support consultant. Yes, left leg 2 skin biopsies. The [...] labeled and sent to [facility] Cutaneous Nerve Laboratory. Procedure was performed by: Skye Murphy PA-C Assistance in supply/equipment preparation performed by: JUSTINO Mosley Sign out is complete. documented in this encounter [facility] 03-27-2023 History of Presen t illness [...] applicable. Martha White documented in this encounter [facility] 03-27-2023 History of Presen t illness [...] applicable. Martha White documented in this encounter [facility] 02-23-2023 Note HNO ID: [id number] Author: Ace Guzman MD Service: ? Author [...] ablative salvage yuri (more content not included)... [facility] 02-23-2023 History of Presen t illness Narrative [...] Ace Guzman MD cc: Arline Orosco MD [address] [place] [phone] [address] Broussard. Portions of the above note extracted and edited from previous visit as well as active information included in the EMR. documented in this encounter [facility] 02-23-2023 Nurse Note AUA= 12 documented in this encounter [facility] 02-15-2023 Note HNO ID: [id number] Author: Barb Kiran MD Service: ? Author [...] BP may drop by 10-15 points. His able bodied seaman was concerned about autonomic neuropathy; recommending to [...] INSERT LENS,EX Bilateral 06/2019 Dr. Grimm - [place], [place] TONSILLECTOMY HX MEDICATIONS: Current Outpatient Medications Medication [...] Never used Substa (more content not included)... [facility] 01-04-2023 Note HNO ID: [id number] Author: James Robb MD Service: ? Author Type: Physician Type: Progress Notes Filed: 01/04/2023 1:08 PM Note Text: PROSTATE CANCER INITIAL VISIT SERVICE DATE: January 04, 2023 PRIMARY CARE PROVIDER: Arline Orosco MD REFERRING PROVIDER: Manny Meza [address] [facility] [facility] [address] Consult requested for an opinion regarding the evaluation and treatment of prostate cancer. My final impression and recommendations will be communicated back to the requesting physician by way of the shared medical record or letter via US mail. I spent 60 minutes in the visit, with more than 50% of the total [id number]-[id number] time of the visit in counseling / [...] 7th Edition) Tx, N1, Mx = stage HKANG [any T, N1, M0, any PSA, any [...] Available Type of Biopsy TRUS Random Biopsy [place]/ISUP Group unkn Total # of Biopsy Cores [...] INSERT LENS,EX Bilateral 06/2019 Dr. Grimm - [place], [place] TONSILLECTOMY HX FAMILY HISTORY Problem Relation [...] mouth once d (more content not included)... [facility] 12-28-[address] Broussard spoke w/ Dr Guzman regarding radiation seed implant for pt. Dr Guzman recommends pt see Dr Robb as scheduled. Pt notified and verbalizes understanding. Umer Dale RN documented in this encounter [facility] 12-26-2022 Note HNO ID: [id number] Author: Jose Francisco Broussard MD Service: ? Author Type: Physician Type: Progress Notes Filed: 12/28/2022 6:06 AM Note Text: PATIENT NAME: Jm Barrow DATE: 12/26/2022 PRIMARY CARE PHYSICIAN: Arline Oorsco MD OTHER PHYSICIANS: Dr. Guzman, Dr. Leroy [...] last visit here he was seen at [facility] by Dr. Meza to evaluate for HIFU, [...] CATARACT, INSERT LENS,EX Bilateral 06/2019 Dr. Alfa [place], [place] TONSILLECTOMY HX FAMILY HISTORY: FAMILY HISTORY Problem [...] cm (6' 0 (more content not included)... [facility] 12-07-2022 Note HNO ID: [id number] Author: Manny Meza MD Service: ? Author Type: Physician Type: Progress Notes Filed: 12/07/2022 3:33 PM Note Text: PATIENT: Jm Barrow [id number] REFERRING MD: Ace Guzman NEW PATIENT VISIT [...] symptoms. Per Dr. 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 11/17/2022 PSA 0.49 11/24/2022 Met with [facility] Dr. 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 Grimm - [place], [place] TONSILLECTOMY HX Medications Current Outpatient Medications [...] 09/20/2022 0.38 ng/ (more content not included)... 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 To have cystolitholapaxy in December. Currently having obstructive urinary symptoms but at baseline without bothersome urinary symptoms. Per Dr. 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 11/17/2022 PSA 0.49 11/24/2022 Met with [facility] Dr. 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 Grimm - [place], [place] TONSILLECTOMY HX Medications Current Outpatient Medications [...] Urologic Staff Center Urologic Oncology [facility] Manny Meza MD Urologic Staff [facility] Medical Decision Making: Problems: Moderate: New problem with uncertain prognosis Data: Unique test result(s) reviewed: 1 Unique test(s) ordered: 1 Risk: Moderate: Moderate risk from testing/treatment Medical Decision Making Level: 4 - Moderate documented in this encounter [facility] 12-07-2022 Nurse Note Summary: BLADDER S CAN PATIENT PVR READING 0mL documented in this encounter [facility] 12-07-2022 Note Patient Outreach (UR OLMN) JM BARROW ([id number]) 1945 M Date Time Provider Department 12/07/22 MANNY MEZA During your visit today, we recorded the following information about you: Allergies As of Date: 12/07/2022 Noted Allergy Reaction CHLORHEXIDINE 05/21/2013 2 - Rash hibaclens [Other] 06/02/2011 2 - Rash Date Reviewed: 12/07/2022 Reviewed by: Ina Christianson MA - Fully Assessed Visit Diagnosis:Screening for genitourinary condition [Z13.89] Order(s):URINALYSIS, REFLEX MICROSCOPIC [CXI1108] Order #: [id number]. #:[id number] Prescriptions as of 12/12/2022 - pantoprazole DR [...] multiple sites [M85.89] 09/22/2022 Encounter Status:Closed by BeneChill on 12/12/22 [facility] 11-24-2022 Note HNO ID: [id number] Author: Ace Guzman MD Service: ? Author [...] 2. 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 Shaw. 2 Prostate cancer [place] 8, node positive with prior treatment including [...] candidate for br (more content not included)... [facility] 11-24-2022 History of Presen t illness Narrative [...] Ace Guzman MD cc: Arline Orosco MD [address] [place] [phone] [address] Broussard. Portions of the above note extracted and edited from previous visit as well as active information included in the EMR. documented in this encounter [facility] 09-22-2022 Note HNO ID: [id number] Author: Jose Francisco Broussard MD Service: ? [...] INSERT LENS,EX Bilateral 06/2019 Dr. Grimm - [place], [place] TONSILLECTOMY HX FAMILY HISTORY: FAMILY HISTORY [...] speech disturbance, tremo (more content not included)... [facility] 09-22-2022 History of Presen t illness Narrative [...] CATARACT, INSERT LENS,EX Bilateral 06/2019 Dr. Grimm [facility], [place] TONSILLECTOMY HX FAMILY HISTORY: FAMILY HISTORY Problem [...] PATHOLOGY: 02/14/2000 Pelvic lymph node biopsy ([facility], Dr. Doug Regalado) Metastatic prostate adenocarcinoma involving 1 of 3 lymph nodes (right obturator LN) 01/20/2000 TRUS prostate biopsy ([facility]) Prostate adenocarcinoma, [place] composite score 8 LABS: [...] expressing neoplastic process 01/15/2022 Bone density DEXA ([facility]) Osteopenia in bilateral femoral necks ASSESSMENT/PLAN: 1. Prostate cancer (HCC) - ICD9: 185, ICD10: C61 Prostate cancer diagnosed January 2000 (prostate biopsy 01/20/2000). Initial staging revealed evidence of lymph node involvement (pelvic lymph node biopsy 02/14/2000). Initial stage T3b, N1, M0; [place] 8. The patient received primary treatment with [...] [facility] documented in this encounter [facility] 08-25-2022 Nurse Note AUA=21 documented in this encounter [facility] 08-18-2022 Note HNO ID: [id number] Author: Ace Guzman MD Service: ? Author [...] surveillance versus addin (more content not included)... [facility] 08-15-2022 Miscellaneous Notes Radiology Service Progress Note [...] 2022 1:43 PM documented in this encounter [facility] 08-15-2022 Nurse Note Radiology Service Progress Note [...] TIME: 12:43 PM documented in this encounter [facility] 07-25-2022 Miscellaneous Notes I will ask Dr. Guzman to touch base with me after the MRI and his appointment. My follow-up depends on scan results and radiation/cryoablation recommendations. Okay to leave my appointment as is for now, and we can change it later if necessary. Zoran, B Patient notified and agreeable to stop enzalutamide will have MRI on 08/15/22 and follow up with Dr. Guzman on 08/18/22. Patient does not follow up with Dr. Broussard until 09/22/22. Would you like to move that appointment up? Ronny Grimm RN Okay to hold enzalutamide for now. When he returns we will discuss other options. Zoran, B Pt calls stating he can't take the xtandi anymore. States his blood pressure has been elevated and he went to [facility] this past week for that. Pt states he was started on metoprolol and on other med that he can't remember the name of. . Barbara: please get records BRM: please advise Kiera Angelo RN documented in this encounter [facility] 07-18-2022 Note HNO ID: [id number] Author: Lola Allen OD Service: ? Author Type: SPEECH COACH Type: Progress Notes Filed: 07/18/2022 1:52 PM [...] Allen, OD July 18, 2022 1:49 PM [facility] 07-18-2022 History of Presen t illness Narrative [...] of its relevant components. Lola Allen, NORTH July 18, 2022 1:49 PM documented in this encounter [facility] 07-13-2022 Miscellaneous Notes Pt notified and verbalizes understanding. Will call us back if his symptoms persist despite reduced dose. Umer Dale, RN Thanks for the update. If you have a chance to get back to him I definitely would recommend he cut the dose in half to see how the side effects are before he stops altogether. Thanks, GARRETT I spoke with Jm today with the [...] to Dr. Broussard. documented in this encounter [facility] 07-07-2022 Note HNO ID: [id number] Author: Jose Francisco Broussard MD Service: ? [...] CATARACT, INSERT LENS,EX Bilateral 06/2019 Dr. Grimm [facility], [place] TONSILLECTOMY HX FAMILY HISTORY: FAMILY HISTORY Problem [...] weakness. SKIN: Negative (more content not included)... [facility] 06-27-2022 Miscellaneous Notes Thanks. GARRETT Jm has decided to move forward with the Xtandi, he received his 14 day free trial on 06/24/22. I was able to secure a ronda that will cover next month and we will pursue free drug following that. He will complete the application when he comes in for his 07/07/22 appt. Matthias Patel rPh documented in this encounter [facility] 06-22-2022 Miscellaneous Notes Thanks, order signed. BRM [...] BRM: please sign order Thank you Matthias Patel rPh documented in this encounter [facility] 06-21-2022 Miscellaneous Notes Ambulatory Pharmacy Prior Authorization Note Provider Intervention Required?: No- Pharmacy completed on your behalf. Rx Plan: Other: [facility]: Xtandi Cover My Meds Torres: [id number] Determination: Approved Prior Authorization/Case #: [id number] Prior Authorization Expiration: 06/21/2023 Time to PA Submission in CMM: 15 min Time to PA Determination in CMM: Same day Additional Information: $3,107.12 - will need to reach out to patient For questions relating to this submission, please contact [facility] at [phone] documented in this encounter [facility] 06-20-2022 Note HNO ID: [id number] Author: Jose Francisco Broussard MD Service: ? [...] CATARACT, INSERT LENS,EX Bilateral 06/2019 Dr. Grimm [facility], [place] TONSILLECTOMY HX FAMILY HISTORY: FAMILY HISTORY Problem [...] effort, and percussi (more content not included)... [facility] 06-20-2022 History of Presen t illness Narrative [...] CATARACT, INSERT LENS,EX Bilateral 06/2019 Dr. Alfa [place], [place] TONSILLECTOMY HX FAMILY HISTORY: FAMILY HISTORY Problem [...] PATHOLOGY: 02/14/2000 Pelvic lymph node biopsy ([facility], Dr. Doug Regalado) Metastatic prostate adenocarcinoma involving 1 of 3 lymph nodes (right obturator LN) 01/20/2000 TRUS prostate biopsy ([facility]) Prostate adenocarcinoma, [place] composite score 8 LABS: Hemoglobin (g/dL) Date [...] expressing neoplastic process 01/15/2022 Bone density DEXA ([facility]) Osteopenia in bilateral femoral necks ASSESSMENT/PLAN: 1. Prostate cancer (HCC) - ICD9: 185, ICD10: C61 Prostate cancer diagnosed January 2000 (prostate biopsy 01/20/2000). Initial staging revealed evidence of lymph node involvement (pelvic lymph node biopsy 02/14/2000). Initial stage T3b, N1, M0; [place] 8. The patient received primary treatment with external beam radiation therapy which was completed 2000. ADT with Lupron started at the time of diagnosis and continued until July 2013. January 2017 the patient developed an increasing PSA and Lupron resumed, currently given every 6 months (last given October [address] [facility]). Due to an increasing PSA the patient [...] months since 2019, last given May 2022 ([facility]). Will continue as planned. Would monitor bone density DEXA every 2 to 3 years. Jose Francisco Broussard MD CC: Dr. Leroy Shaw documented in this encounter [facility] 06-10-2022 Evaluation note Diagnosis Cancer of prostate w/med recur risk (T2b-c or [place] 7 or PSA 10-20) (HCC)- Primary Malignant neoplasm of prostate documented in this encounter [facility]01-24-2023 NoteHNO ID: [id number] Author: Ace Guzman MD Service: ? Author [...] follow-up with his urologist. 2 Prostate cancer [place] 8, node positive with prior treatment including [...] Ace Guzman MD cc: Arline Orosco MD [address] [place] [address] Portions of the above note extracted and edited from previous visit as well as active information included in the EMR.[facility] 06-07-2022 History of Present illness Narrative* Ace [...] Ace Guzman MD cc: Arline Orosco MD [address] [place] [phone] Portions of the above note extracted and edited from previous visit as well as active information included in the EMR. [facility] NoteHNO ID: [id number] Author: Lorraine Bermudez RN Service: ? Author [...] Barrow DATE: June 02, 2022 TIME: 1:40 [facility]01-19-2023 NoteHNO ID: [id number] Author: RT Radha(R) Service: ? Author Type: [...] 1327 PATIENT DISCHARGED TO: Ambulatory patient, left [place] department area. A Diagnostic radioactive procedure has taken place, with no further precautions necessary other than routine body substance precautions. More information regarding radiation safety can be found using this link: [email or web address] SIGNATURE: Umer Browne, RT(R) PATIENT NAME: Jm Barrow DATE: June 02, 2022 TIME: 1:33 PM PAGER/CONTACT #:[facility]12-07-2022 Miscellaneous Notes* Telephone Encounter - Lena Dowd RN - 04/20/2022 8:11 AM EST Will submit for Abdi approval closer to May 2022. submitted 05-06-22 * Telephone Encounter - Lena Dowd RN - 04/19/2022 12:48 PM EST Auth#: [id number] Date Range: 05/06/2022 to 08/03/2022 21673/[facility]- piflufolastat F [id number] NPI: Donte Montes [id number] Member ID : Abdi Aragon [id number] INS Contact Number: AIM [phone] Intake: Sophia started case Case/Ref#: [id number] Notes: faxed 11 pages clinical to Clinical Review Nurse at [phone]. Sophia stated case not meeting criteria and needed Peer to Peer. Email to [facility]/ Dr Simon Barrow [id number] PET/CT Prostate scan needs Peer to Peer at [phone] case [id number] email to Dr Megan Aguirre RN, Jm Barrow [id number] PET/CT Prostate scan needs Peer to Peer at [phone] case [id number]. Did you get approval? On epic referral [facility] documented approval: Authorization #: [id number] Valid From: 05/06/2022 to 08/03/2022 * Telephone Encounter - Lena Dowd RN - 04/19/2022 12:42 PM EST Authorization number: [id number] [id number] Authorization date range: [facility] 05/06/2022 to 08/03/2022 1-dos Primary Insurance: Abdi Aragon [id number] Diagnosis: History of prostate cancer [Z85.46] Cancer of prostate w/med recur risk (T2b-c or [place] 7 or PSA 10-20) (HCC) [C61] DX Imaging: CT/CTA: 01-30-[address] Pathology: Prostate cancer 2000 Labs: 03-14-22 [...] No - Schedule as requested Comments for Simulation Software Engineer: May 2022 ROUTE TO SCHEDULERS POOL P PET CRATER [facility] or P [facility] * Telephone Encounter - Maral Dominique - 04/19/2022 11:49 AM EST This form is used for MAIN CAMPUS APPOINTMENTS ONLY. Is this request for a Main [place] PET scan appointment? Yes: Technology Applications Teacher: Maral Dominique Requesting Person (Last Name, First Name): Rasta Dominique Area Code + Phone/Pager: [phone] Who do we call to schedule this appointment? Other Contact: [facility] PET in [place] ([place] May), route to Anne Browne to schedule. Requesting Staff Jud Guzman Area Code + Phone/Pager: [phone] PET Orders (A delay in scheduling will [...] NO Send requests to P COORD REVIEW [facility]* Diagnosis History of prostate cancer- Primary Personal history of malignant neoplasm of prostate Cancer of prostate w/med recur risk (T2b-c or [place] 7 or PSA 10-20) (HCC) Malignant neoplasm of prostate documented in this encounter [facility]11-08-2022 Nurse Note* Mali Mora LPN - 03/22/2022 1:12 PM EST AUA= 11 [facility] History of Present illness Narrative* Ace Guzman [...] follow-up with his urologist. 2 Prostate cancer [place] 8, node positive with prior treatment including [...] Ace Guzman MD cc: Arline Orosco MD [address] [place] [phone] Portions of the above note extracted and edited from previous visit as well as active information included in the EMR. [facility] History of Present illness Narrative* Lola S Tiffany, OD - 08/23/2021 3:06 PM EDT ASSESSMENT/PLAN: [...] 23, 2021 3:06 PM [facility] History of Past illness Narrative* Problem Noted Date Resolved Date BPH (benign prostatic hyperplasia) 06/23/2021 documented as of this encounter (statuses as of 08/23/2021) [address]09-2022 History of Past illness Narrative* Problem Noted Date Resolved Date BPH (benign prostatic hyperplasia) 06/23/2021 documented as of this encounter (statuses as of 03/28/2022) [address]09-2022 History of Past illness Narrative* Problem Noted Date Resolved Date BPH (benign prostatic hyperplasia) 06/23/2021 documented as of this encounter (statuses as of 05/31/2022) [address]09-2022 History of Past illness Narrative* Problem Noted Date Resolved Date BPH (benign prostatic hyperplasia) 06/23/2021 documented as of this encounter (statuses as of 06/10/2022) [address]09-2022 History of Past illness Narrative* Problem Noted Date Resolved Date BPH (benign prostatic hyperplasia) 06/23/2021 documented as of this encounter (statuses as of 06/16/2022) [address]09-2022 History of Past illness Narrative* Problem Noted Date Resolved Date BPH (benign prostatic hyperplasia) 06/23/2021 documented as of this encounter (statuses as of 06/22/2022) [address]09-2022 History of Past illness Narrative* Problem Noted Date Resolved Date BPH (benign prostatic hyperplasia) 06/23/2021 documented as of this encounter (statuses as of 06/22/2022) [address]-2022 History of Past illness Narrative* Problem Noted Date Resolved Date BPH (benign prostatic hyperplasia) 06/23/2021 documented as of this encounter (statuses as of 06/23/2022) [address]09-2022 History of Past illness Narrative* Problem Noted Date Resolved Date BPH (benign prostatic hyperplasia) 06/23/2021 documented as of this encounter (statuses as of 06/27/2022) [address]09-2022 History of Past illness Narrative* Problem Noted Date Resolved Date BPH (benign prostatic hyperplasia) 06/23/2021 documented as of this encounter (statuses as of 07/07/2022) [address]09-2022 History of Past illness Narrative* Problem Noted Date Resolved Date BPH (benign prostatic hyperplasia) 06/23/2021 documented as of this encounter (statuses as of 07/13/2022) [address]09-2022 History of Past illness Narrative* Problem Noted Date Resolved Date BPH (benign prostatic hyperplasia) 06/23/2021 documented as of this encounter (statuses as of 07/18/2022) [address]09-2022 History of Past illness Narrative* Problem Noted Date Resolved Date BPH (benign prostatic hyperplasia) 06/23/2021 documented as of this encounter (statuses as of 07/26/2022) [address]09-[address]22 History of Past illness Narrative* Problem Noted Date Resolved Date BPH (benign prostatic hyperplasia) 06/23/2021 documented as of this encounter (statuses as of 08/16/2022) [address]09-[address]22 History of Past illness Narrative* Problem Noted Date Resolved Date BPH (benign prostatic hyperplasia) 06/23/2021 documented as of this encounter (statuses as of 09/23/2022) [address]09-[address]22 History of Past illness Narrative* Problem Noted Date Diagnosed Date Resolved Date BPH (benign prostatic hyperplasia) 06/23/2021 documented as of this encounter (statuses as of 11/25/2022) [address]22 History of Past illness Narrative* Problem Noted Date Diagnosed Date Resolved Date BPH (benign prostatic hyperplasia) 06/23/2021 documented as of this encounter (statuses as of 12/08/2022) [address] [address] History of Past illness Narrative* Problem Noted Date Diagnosed Date Resolved Date BPH (benign prostatic hyperplasia) 06/23/2021 documented as of this encounter (statuses as of 12/12/2022) [address]22 History of Past illness Narrative* Problem Noted Date Diagnosed Date Resolved Date BPH (benign prostatic hyperplasia) 06/23/2021 documented as of this encounter (statuses as of 12/27/2022) [address]22 History of Past illness Narrative* Problem Noted Date Diagnosed Date Resolved Date BPH (benign prostatic hyperplasia) 06/23/2021 documented as of this encounter (statuses as of 12/29/2022) [address]22 History of Past illness Narrative* Problem Noted Date Diagnosed Date Resolved Date BPH (benign prostatic hyperplasia) 06/23/2021 documented as of this encounter (statuses as of 03/01/2023) [address]22 History of Past illness Narrative* Problem Noted Date Diagnosed Date Resolved Date BPH (benign prostatic hyperplasia) 06/23/2021 documented as of this encounter (statuses as of 03/28/2023) [address]22 History of Past illness Narrative* Problem Noted Date Diagnosed Date Resolved Date BPH (benign prostatic hyperplasia) 06/23/2021 documented as of this encounter (statuses as of 03/28/2023) [address]22 History of Past illness Narrative* Problem Noted Date Diagnosed Date Resolved Date BPH (benign prostatic hyperplasia) 06/23/2021 documented as of this encounter (statuses as of 04/12/2023) [facility] Diagnosis 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 Lens replaced by other means Monocular diplopia of right eye [facility] Diagnosis Prostate cancer (HCC)- Primary Malignant neoplasm of prostate [facility] Diagnosis Prostate cancer (HCC)- Primary Malignant neoplasm of prostate [facility] Diagnosis 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 Lens replaced by other means Myopia with astigmatism and presbyopia, bilateral PVD (posterior vitreous detachment), both eyes Vitreous degeneration Dry eye syndrome, bilateral documented in this encounter [facility]* Diagnosis Cancer of prostate w/med recur risk (T2b-c or [place] 7 or PSA 10-20) (HCC) Malignant neoplasm of prostate documented in this encounter [facility] noteNo assessment information availableSt[facility] Work Phone: Evaluation note* Diagnosis Prostate cancer (HCC)- Primary Malignant neoplasm of prostate Osteopenia of multiple sites Primary hypertension Unspecified essential hypertension [facility] Diagnosis Malignant neoplasm of prostate (HCC)- Primary Malignant neoplasm of prostate [facility] Diagnosis Malignant neoplasm of prostate (HCC) Malignant neoplasm of prostate [facility] Diagnosis Screening for genitourinary condition Screening for other and unspecified genitourinary condition [facility] Diagnosis Osteopenia of multiple sites- Primary Prostate cancer (HCC) Malignant neoplasm of prostate documented in this encounter [facility] Diagnosis History of prostate cancer- Primary Personal history of malignant neoplasm of prostate Prostate cancer (HCC) Malignant neoplasm of prostate [facility] Diagnosis Orthostatic hypotension- Primary [facility] Diagnosis Orthostatic hypotension- Primary [facility] Patient returns in [...] plan to see him in several months. [facility] DO Work Phone: [facility] for referral (narrative)* Diagnostic Procedure Only (Routine) - Pending Review Specialty Diagnoses / Procedures Referred By Tori millan Referred To Contact MOLECULAR & FUNCTIONAL IMAGING Diagnoses History of prostate cancer Cancer of prostate w/med recur risk (T2b-c or [place] 7 or PSA 10-20) (HCC) Procedures NM PET/CT PROSTATE WHOLE BODY IMAGING PET IMAGING CT ATTENUATION SKULL BASE MID-THIGH Ace Guzman MD [address] [place] [address] [place] [address] Molecular & Functional Imaging [address] [place] [address] Referral ID Status Reason Start Date Expiration Date Visits Requested Visits Authorized [id number] Pending Review Auto-Generat ed Referral 05/22/2022 04/21/2023 [address] [facility] for referral (narrative)* Diagnostic Procedure Only (Routine) - Authorized Specialty Diagnoses / Procedures Referred By Tori millan Referred To Contact MOLECULAR & FUNCTIONAL IMAGING Diagnoses Prostate cancer (HCC) Procedures NM PET/CT PROSTATE WHOLE BODY IMAGING PET IMAGING CT ATTENUATION SKULL BASE MID-THIGH Ace Guzman MD [address] [place] [address] [place] [address] Molecular & Functional Imaging [address] [place] [address] Referral ID Status Reason Start Date Expiration Date Visits Requested Visits Authorized [id number] Authorized Auto-Generat ed Referral 05/26/2023 03/24/2024 1 1 [facility] Summary Purpose Family History No Family History [...] FoundDocuments on File 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 Date 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 Advance Directive(s) 06/24/2021 8:42 AM Advance Directive(s) 11/08/2019 9:14 AM Advance Directive Response Recorded Date/ Time Advance Directives No September 12, 2018 6:07pm Reason for Referral Specialty Diagnoses / Procedures Referred By Contac t Referred To Contact Oncology Diagnoses Cancer of prostate w/med recur risk (T2b-c or [place] 7 or PSA 10-20) (HCC) Procedures CONSULT TO ONCOLOGY OFFICE/OUTPATIENT NEW HIGH MDM 60-74 MINUTES Ace Guzman MD [address] [place] [address] [place] [address] Referral ID Status Reason Start Date Expiration Date Visits Requested Visits Authorized [id number] Pending Review PCP Requested Referral 06/07/2022 06/07/2023 1 1 Specialty Diagnoses / Procedures Referred By Contac t Referred To Contact MR IMAGING Diagnoses Cancer of prostate w/med recur risk (T2b-c or [place] 7 or PSA 10-20) (HCC) Procedures MRI PROSTATE WO/W IVCON MRI PELVIS W/O & W/CONTRAST MATERIAL Ace Guzman MD [address] [place] [address] [place] [address] Mr Imaging Referral ID Status Reason Start Date Expiration Date Visits Requested Visits Authorized [id number] Authorized Auto-Generat ed Referral 06/07/2022 07/07/2023 1 1 Referral ID Status Reason Start Date Expiration Date V isits Requested Visits Authorized [id number] Closed Auto-Generate d Referral 06/07/2022 07/07/2023 1 1 Specialty Diagnoses / Procedures Referred By Contac t Referred To Contact Urology Diagnoses Malignant neoplasm of prostate (HCC) Procedures CONSULT TO UROLOGY OFFICE/OUTPATIENT [facility] MDM 60-74 MINUTES Ace Guzman MD [address] [place], [place] [address] [address] Referral ID Status Reason Start Date Expiration Date Visits Requested Visits Authorized [id number] Pending Review PCP Requested Referral 11/24/2022 11/24/2023 1 1 Specialty Diagnoses / Procedures Referred By Contac t Referred To Contact Radiation Oncology Diagnoses Malignant neoplasm of prostate (HCC) Procedures RAD/ONC CONSULT OFFICE/OUTPATIENT NEW HIGH MDM 60-74 MINUTES Manny Meza MD [address] [facility] [address] [place] [address] Referral ID Status Reason Start Date Expiration Date Visits Requested Visits Authorized [id number] Pending Review PCP Requested Referral 12/07/2022 12/07/2023 [...] 60 mg, SUBCUTANEOUS, ONCE, 1 dose, On 12/26/22 at 1630, Allow To Come To Room Temperature Before Administration. REFRIGERATE Given 12/26/2022 4:23 PM EDT 60 mg Arm, Left leuprolide acetate (6 month) 45 mg IM syringe kit (LUPRON) 45 mg, INTRAMUSCULAR, ONCE, 1 dose, On 12/26/22 at 1630, Hazardous Chemotherapy Drug: Use appropriate PPE. Given 12/26/2022 4:23 PM EDT 45 mg Buttocks, Right Inactive Administered Medications - up to 3 most recent administrations Medication Order MAR Action Action Date Dose Rate Site acetylcholine 10% solution - [facility] compounding 20 mL, IRRIGATION, ONCE, 1 dose, On 03/27/23 at 1330, Protect from Light. Refrigerate, AMB MED ORDERS Given 03/27/2023 1:15 PM EST 20 mL Left Chief Complaint and Reason for Visit Chief Complaint i65.23 Chief Complaint JM BARROW is being seen for a 1 month follow-up of.JM ABERNATHYHEIDYDianne is being seen for a 1 month follow-up of. Additional Source Comments (unrecognized sect ion and content) No Status Records FoundNo Status Records FoundNo Status Records FoundNo Status Records FoundNo Status Records FoundNo Status Records FoundNo Status Records FoundNo Status Records Found INFORMATION SOURCE (unrecogn ized section and content) DATE CREATED AUTHOR 11/07/2017 [facility] DATE CREATED AUTHOR AUTHOR'S ORGANIZ ATION 08/04/2022 [facility] DATE CREATED AUTHOR AUTHOR'S ORGANIZ ATION 08/18/2022 [facility] DATE CREATED AUTHOR AUTHOR'S ORGANIZ ATION 10/25/2022 [facility] DATE CREATED AUTHOR AUTHOR'S ORGANIZ ATION 10/25/2022 [facility] DATE CREATED AUTHOR AUTHOR'S ORGANIZ ATION 01/07/2023 [facility] DATE CREATED AUTHOR AUTHOR'S ORGANIZ ATION 02/19/2023 [facility] DATE CREATED AUTHOR AUTHOR'S ORGANIZ ATION 05/25/2023 [facility] Source Comments (unrecognize d section and content) In the event this informatio n is protected by the Federal Confidentiality of Alcohol and Drug Abuse Patient Records regulations: The Federal rules restrict any use of the information to criminally investigate or prosecute any alcohol or drug abuse patient.[facility] the event this information is protected by the Federal Confidentiality of Alcohol and Drug Abuse Patient Records regulations: The Federal rules restrict any use of the information to criminally investigate or prosecute any alcohol or drug abuse patient.[facility] the event this information is protected by the Federal Confidentiality of Alcohol and Drug Abuse Patient Records regulations: The Federal rules restrict any use of the information to criminally investigate or prosecute any alcohol or drug abuse patient.[facility] the event this information is protected by the Federal Confidentiality of Alcohol and Drug Abuse Patient Records regulations: The Federal rules restrict any use of the information to criminally investigate or prosecute any alcohol or drug abuse patient.[facility] the event this information is protected by the Federal Confidentiality of Alcohol and Drug Abuse Patient Records regulations: The Federal rules restrict any use of the information to criminally investigate or prosecute any alcohol or drug abuse patient.[facility] the event this information is protected by the Federal Confidentiality of Alcohol and Drug Abuse Patient Records regulations: The Federal rules restrict any use of the information to criminally investigate or prosecute any alcohol or drug abuse patient.[facility]In the event this information is protected by the Federal Confidentiality of Alcohol and Drug Abuse Patient Records regulations: The Federal rules restrict any use of the information to criminally investigate or prosecute any alcohol or drug abuse patient.[facility] the event this information is protected by the Federal Confidentiality of Alcohol and Drug Abuse Patient Records regulations: The Federal rules restrict any use of the information to criminally investigate or prosecute any alcohol or drug abuse patient.[facility] the event this information is protected by the Federal Confidentiality of Alcohol and Drug Abuse Patient Records regulations: The Federal rules restrict any use of the information to criminally investigate or prosecute any alcohol or drug abuse patient.[facility] the event this information is protected by the Federal Confidentiality of Alcohol and Drug Abuse Patient Records regulations: The Federal rules restrict any use of the information to criminally investigate or prosecute any alcohol or drug abuse patient.[facility] HospitalIn the event this information is protected by the Federal Confidentiality of Alcohol and Drug Abuse Patient Records regulations: The Federal rules restrict any use of the information to criminally investigate or prosecute any alcohol or drug abuse patient.[facility]In the event this information is protected by the Federal Confidentiality of Alcohol and Drug Abuse Patient Records regulations: The Federal rules restrict any use of the information to criminally investigate or prosecute any alcohol or drug abuse patient.[facility]In the event this information is protected by the Federal Confidentiality of Alcohol and Drug Abuse Patient Records regulations: The Federal rules restrict any use of the information to criminally investigate or prosecute any alcohol or drug abuse patient.[facility] HospitalIn the event this information is protected by the Federal Confidentiality of Alcohol and Drug Abuse Patient Records regulations: The Federal rules restrict any use of the information to criminally investigate or prosecute any alcohol or drug abuse patient.[facility] the event this information is protected by the Federal Confidentiality of Alcohol and Drug Abuse Patient Records regulations: The Federal rules restrict any use of the information to criminally investigate or prosecute any alcohol or drug abuse patient.[facility] HospitalIn the event this information is protected by the Federal Confidentiality of Alcohol and Drug Abuse Patient Records regulations: The Federal rules restrict any use of the information to criminally investigate or prosecute any alcohol or drug abuse patient.[facility] HospitalIn the event this information is protected by the Federal Confidentiality of Alcohol and Drug Abuse Patient Records regulations: The Federal rules restrict any use of the information to criminally investigate or prosecute any alcohol or drug abuse patient.[facility] HospitalIn the event this information is protected by the Federal Confidentiality of Alcohol and Drug Abuse Patient Records regulations: The Federal rules restrict any use of the information to criminally investigate or prosecute any alcohol or drug abuse patient.[facility] HospitalIn the event this information is protected by the Federal Confidentiality of Alcohol and Drug Abuse Patient Records regulations: The Federal rules restrict any use of the information to criminally investigate or prosecute any alcohol or drug abuse patient.[facility] the event this information is protected by the Federal Confidentiality of Alcohol and Drug Abuse Patient Records regulations: The Federal rules restrict any use of the information to criminally investigate or prosecute any alcohol or drug abuse patient.[facility] HospitalIn the event this information is protected by the Federal Confidentiality of Alcohol and Drug Abuse Patient Records regulations: The Federal rules restrict any use of the information to criminally investigate or prosecute any alcohol or drug abuse patient.[facility] HospitalIn the event this information is protected by the Federal Confidentiality of Alcohol and Drug Abuse Patient Records regulations: The Federal rules restrict any use of the information to criminally investigate or prosecute any alcohol or drug abuse patient.[facility] the event this information is protected by the Federal Confidentiality of Alcohol and Drug Abuse Patient Records regulations: The Federal rules restrict any use of the information to criminally investigate or prosecute any alcohol or drug abuse patient.[facility] HospitalIn the event this information is protected by the Federal Confidentiality of Alcohol and Drug Abuse Patient Records regulations: The Federal rules restrict any use of the information to criminally investigate or prosecute any alcohol or drug abuse patient.[facility] HospitalIn the event this information is protected by the Federal Confidentiality of Alcohol and Drug Abuse Patient Records regulations: The Federal rules restrict any use of the information to criminally investigate or prosecute any alcohol or drug abuse patient.[facility] Reason for Visit (unrecogniz ed section and content) Reason Comments Refraction Reason Comments Prostate Cancer Reason Comments Nm Pet Request Reason Comments Consult Prostate Cancer Specialty Diagnoses / Procedures Referred By Contac t Referred To Contact Oncology Diagnoses Cancer of prostate w/med recur risk (T2b-c or [place] 7 or PSA 10-20) (HCC) Procedures CONSULT TO ONCOLOGY OFFICE/OUTPATIENT NEW HIGH MDM 60-74 MINUTES Ace Guzman MD [address] [place] [address] [place] [address] Referral ID Status Reason Start Date Expiration Date Visits Requested Visits Authorized [id number] Pending Review PCP Requested Referral 06/07/2022 06/07/2023 1 1 Reason Comments Medication Update Xtandi Reason Comments Medication Authorization Xtandi Reason Comments Medication Update FYI patient deciding to move forward with Xtandi beyond 14 day free trial. Specialty Diagnoses / Procedures Referred By Contac t Referred To Contact Diagnoses Prostate cancer (HCC) Procedures LEUPROLIDE ACETATE SUSPNSION Jose Francisco Broussard MD [address] [place] [address] [place] [address] Christiano Treat [address] [place] [address] Referral ID Status Reason Start Date Expiration Date V isits Requested Visits Authorized [id number] Authorized 07/07/2022 07/07/2023 4 4 Reason Comments Medication Problem Reason Comments Yearly Exam Reason Comments Care Coordination Medication update Specialty Diagnoses / Procedures Referred By Contac t Referred To Contact MR IMAGING Diagnoses Cancer of prostate w/med recur risk (T2b-c or [place] 7 or PSA 10-20) (HCC) Procedures MRI PROSTATE WO/W IVCON MRI PELVIS W/O & W/CONTRAST MATERIAL Ace Guzman MD [address] [place] [address] [place] [address] Mr Imaging Referral ID Status Reason Start Date Expiration Date V isits Requested Visits Authorized [id number] Closed Auto-Generate d Referral 06/07/2022 07/07/2023 1 1 Reason Comments Prostate Cancer 2 month follow up Reason Comments Prostate Cancer Follow up Reason Comments Consult Specialty Diagnoses / Procedures Referred By Contac t Referred To Contact Urology Diagnoses Malignant neoplasm of prostate (HCC) Procedures CONSULT TO UROLOGY OFFICE/OUTPATIENT NEW HIGH MDM 60-74 MINUTES Ace Guzman MD [address] [place] [address] [place] [address] Referral ID Status Reason Start Date Expiration Date Visits Requested Visits Authorized [id number] Pending Review PCP Requested Referral 11/24/2022 11/24/2023 1 1 Reason Comments Care Coordination Radiation Appointmen t Care Teams (unrecognized sec tion and content) Manager Convention Relationship Specialty Start Date End Date Arline Orosco MD PCP - General Family Practice 06/02/11 Dawna Patrick Urology 02/10/14 Manager Convention Relationship Specialty Start Date End Date Arline Orosco MD PCP - General Family Medicine 06/02/11 Dawna Patrick Urology 02/10/14 Manager Convention Relationship Specialty Start Date End Date Arline Orosco MD PCP - General Family Medicine 06/02/11 aDwna Patrick Urology 02/10/14 Manager Convention Relationship Specialty Start Date End Date Arline Orosco MD PCP - General Family Medicine 06/02/11 Dawna Patrick Urology 02/10/14 Manager Convention Relationship Specialty Start Date End Date Arline Orosco MD PCP - General Family Medicine 06/02/11 Dawna Patrick Urology 02/10/14 Manager Convention Relationship Specialty Start Date End Date Arline Orosco MD PCP - General Family Medicine 06/02/11 Dawna Patrick Urology 02/10/14 Manager Convention Relationship Specialty Start Date End Date Arline Orosco MD PCP - General Family Medicine 06/02/11 Dawna Patrick Urology 02/10/14 Manager Convention Relationship Specialty Start Date End Date Arline Orosco MD PCP - General Family Medicine 06/02/11 Dawna Patrick Urology 02/10/14 Jose Francisco Broussard MD [address] [place] [address] Physician Hematology/Oncology 06/27/22 Helen Slade, GRAPPLE SKIDDER OPERATOR.MATHEMATICAL PHYSICIST [address] [facility] [address] [place] [address] Nurse Practitioner Hematology/Oncology 06/27/22 Umer Dale, HITESH [address] [place] [address] Specialty Television Servicer Hematology/Oncology 06/27/22 Manager Convention Relationship Specialty Start Date End Date Arline Orosco MD PCP - General Family Medicine 06/02/11 Dawna Patrick Urology 02/10/14 Jose Francisco Broussard MD [address] [facility] [place] [address] Physician Hematology/Oncology 06/27/22 Helen Slade, GRAPPLE SKIDDER OPERATOR.MATHEMATICAL PHYSICIST [address] [facility] [place] [address] Nurse Practitioner Hematology/Oncology 06/27/22 Umer Dale, RN [address] [place] [address] Specialty Television Servicer Hematology/Oncology 06/27/22 Manager Convention Relationship Specialty Start Date End Date Arline [place]rosco MD PCP - General Family Medicine 06/02/11 Dawna Patrick Urology 02/10/14 Jose Francisco Broussard MD [address] [facility] [place] [address] Physician Hematology/Oncology 06/27/22 Helen Slade, GRAPPLE SKIDDER OPERATOR.MATHEMATICAL PHYSICIST [address] [facility] [place] [place] [address] Nurse Practitioner Hematology/Oncology 06/27/22 Umer Dale, RN [address] [place] [address] [place] [address] Specialty Television Servicer Hematology/Oncology 06/27/22 Manager Convention Relationship Specialty Start Date End Date Arline [place]rosco MD PCP - General Family Medicine 06/02/11 Dawna Patrick Urology 02/10/14 Jose Francisco Broussard MD [address] [facility] [place] [address] Physician Hematology/Oncology 06/27/22 Helen Slade, GRAPPLE SKIDDER OPERATOR.MATHEMATICAL PHYSICIST [address] [facility] [place] [place] [address] Nurse Practitioner Hematology/Oncology 06/27/22 Umer Dale, RN [address] [facility] [place] [address] Specialty Television Servicer Hematology/Oncology 06/27/22 Manager Convention Relationship Specialty Start Date End Date Arline Orosco MD PCP - General Family Medicine 06/02/11 Dawna Patrick Urology 02/10/14 Jose Francisco Broussard MD [address] [facility] [place] [address] Physician Hematology/Oncology 06/27/22 Helen Slade, GRAPPLE SKIDDER OPERATOR.MATHEMATICAL PHYSICIST [address] [facility] [place] [address] Nurse Practitioner Hematology/Oncology 06/27/22 Umer Dale, HITESH [address] [facility] [place] [address] Specialty Television Servicer Hematology/Oncology 06/27/22 Team Status: Active Member Role Status Dates Arline Orosco MD Primary Care Provider Active Team Status: Inactive Member Role Status Dates Arline Orosco MD Primary Care Provider Active Clarence Gregory MD Attending Provider Active Manager Convention Relationship Specialty Start Date End Date Arline Orosco MD PCP - General Family Medicine 06/02/11 Dawna Patrick Urology 02/10/14 Jose Francisco Broussard MD [address] [facility] [place] [address] Physician Hematology/Oncology 06/27/22 Helen Slade, GRAPPLE SKIDDER OPERATOR.MATHEMATICAL PHYSICIST [address] [facility] [place] [address] Nurse Practitioner Hematology/Oncology 06/27/22 Umer Dale, RN [address] [facility] [place] [address] Specialty Television Servicer Hematology/Oncology 06/27/22 Manager Convention Relationship Specialty Start Date End Date Arline Orosco MD PCP - General Family Medicine 06/02/11 Dawna Patrick Urology 02/10/14 Jose Francisco Broussard MD [address] [place] [address] Physician Hematology/Oncology 06/27/22 Helen Slade, CAMILLE.MATHEMATICAL PHYSICIST [address] [place] [address] Nurse Practitioner Hematology/Oncology 06/27/22 Umer Dale RN [address] [place] [address] Specialty Television Servicer Hematology/Oncology 06/27/22 Manager Convention Relationship Specialty Start Date End Date Arline Orosco MD PCP - General Family Medicine 06/02/11 Dawna Patrick Urology 02/10/14 Jose Francisco Broussard MD [address] [place] [address] Physician Hematology/Oncology 06/27/22 Helen Slade, CAMILLE.MATHEMATICAL PHYSICIST [address] [place] [address] Nurse Practitioner Hematology/Oncology 06/27/22 Umer Dale RN [address] [place] [address] Specialty Television Servicer Hematology/Oncology 06/27/22 Manager Convention Relationship Specialty Start Date End Date Arline Orosco MD PCP - General Family Medicine 06/02/11 Dawna Patrick Urology 02/10/14 Jose Francisco Broussard MD [address] [place] [address] Physician Hematology/Oncology 06/27/22 Helen Slade APRN.MATHEMATICAL PHYSICIST [address] [place] [address] Nurse Practitioner Hematology/Oncology 06/27/22 Umer Dale, HITESH [address] [place] [address] Specialty Television Servicer Hematology/Oncology 06/27/22 Manager Convention Relationship Specialty Start Date End Date Arline Orosco MD PCP - General Family Medicine 06/02/11 Dawna Patrick Urology 02/10/14 Jose Francisco Broussard MD [address] [place] [address] Physician Hematology/Oncology 06/27/22 Helen Slade, CAMILLE.MATHEMATICAL PHYSICIST [address] [place] [address] Nurse Practitioner Hematology/Oncology 06/27/22 Umer Dale, HITESH [address] [place] [address] Specialty Television Servicer Hematology/Oncology 06/27/22 Manager Convention Relationship Specialty Start Date End Date Arline Orosco MD PCP - General Family Medicine 06/02/11 Dawna Patrick Urology 02/10/14 Jose Francisco Broussard MD [address] [place] [address] Physician Hematology/Oncology 06/27/22 Helen Slade APRN.MATHEMATICAL PHYSICIST [address] [place] [address] Nurse Practitioner Hematology/Oncology 06/27/22 Umer Dale RN [address] [place] [address] Specialty Television Servicer Hematology/Oncology 06/27/22 Manager Convention Relationship Specialty Start Date End Date Arline Orosco MD PCP - General Family Medicine 06/02/11 Dawna Patrick Urology 02/10/14 Jose Francisco Broussard MD [address] [place] [address] Physician Hematology/Oncology 06/27/22 Helen Slade APRN.MATHEMATICAL PHYSICIST [address] [place] [address] Nurse Practitioner Hematology/Oncology 06/27/22 Umer Dale, HITESH [address] [place] [address] Specialty Television Servicer Hematology/Oncology 06/27/22 Manager Convention Relationship Specialty Start Date End Date Arline Orosco MD PCP - General Family Medicine 06/02/11 Dawna Patrick Urology 02/10/14 Jose Francisco Broussard MD [address] [place] [address] Physician Hematology/Oncology 06/27/22 Helen Slade APRN.MATHEMATICAL PHYSICIST [address] [place] [address] Nurse Practitioner Hematology/Oncology 06/27/22 Umer Dale RN [address] [place] [address] Specialty Television Servicer Hematology/Oncology 06/27/22 Manager Convention Relationship Specialty Start Date End Date Arline Orosco MD PCP - General Family Medicine 06/02/11 Dawna Patrick Urology 02/10/14 Jose Francisco Broussard MD [address] [place] [address] Physician Hematology/Oncology 06/27/22 Helen Slade, [place].MATHEMATICAL PHYSICIST [address] [place] [address] Nurse Practitioner Hematology/Oncology 06/27/22 Umer Dale, RN [address] [place] [address] Specialty Television Servicer Hematology/Oncology 06/27/22 Goals (unrecognized section and content) [...] BE BASED ON THE PRIMARY CLINICAL RECORDS. [facility] [employer] provides no warranty or guarantee of the accuracy or completeness of information in this document.
== END 2023-06-22 16:13 | disposition home or self-care (01) ==
LOC: LAB 16:12
PROVIDERS: PCP Family Medicine; Visit Provider Family Medicine
DX: R05.9 Cough, unspecified (principal)
CPT/HCPCS: 87070; 87106

== ENCOUNTER 2023-07-20 11:33 | Outpatient (OUT) | payer MEDICARE, SELFPAY ==
--- OUTSIDE RECORDS SUMMARY | 2023-07-20 11:54 | XMS_ITS | CCD ---
Author Name Unknown Address [address] [place] [address] Organization [facility] Care Team Providers Care Certified Medication Aide Name Role Phone PHYSICIAN, DEFAULT Unavailable Unavailable PHYSICIAN, DEFAULT Unavailable Unavailable Arline Orosco MD Primary Care Provider [phone] Dawna Patrick Unavailable Arline Orosco MD Primary Care Provider [phone] Dawna Patrick Unavailable Arline Orosco MD Primary Care Provider [phone] Dawna Patrick Unavailable [phone] GUTIERREZ, Jose Francisco Garcia Unavailable [place] CHIANG, Helen Unavailable Etta RN, Umer Unavailable Arline Orosco MD Primary Care Provider [phone] LEROY SHAW Admitting Unavailable LEROY SHAW Consulting Unavailable LEROY SHAW Attending Unavailable KWESI ., DR NUNN Primary Care Unavailable HOY ., DR NUNN Consulting Unavailable HOY ., DR NUNN Attending Unavailable HOAlisson ., DR NUNN Admitting Unavailable KWESI ., DR NUNN Primary Care Unavailable JESSICA [...] Unavailable MD Arline Orosco Primary Care Provider [phone] MD Clarence Gregory Attending Provider Baldo Gifford Referring Unavailable Dr. Arline Orosco Primary Care Unavail able Baldo Gifford Attending Unavailable Baldo Gifford Referring Unavailable Dr. Arline Orosco Primary Care Unavail able Baldo Gifford Attending Unavailable Etta PROCTOR, Umer Unavailable Arline Orosco Primary Care Unavailable Clarence Gregory Admitting Unavailable Clarence Gregory Attending Unavailable Baldo Gifford Attending Unavail able Arline Orosco Primary Care Unavailable Baldo Gifford Admitting Unavail able BARB KIRAN Referring Unavailable ARLINE OROSCO Primary Care Unavailable HOY, ARLINE M Primary Care Unavailable HOY, ARLINE M Primary Care Unavailable JOSE FRANCISCO BROUSSARD Attending Unavailable Ace GUZMAN Attending Unavailable HOY, ARLINE M Primary Care Unavailable MANNY MEZA Attending Unavailable Ace GUZMAN Referring Unavailable HOY, ARLINE M Primary Care Unavailable JAMES ROBB Attending Unavailable HOY, ARLINE M Primary Care Unavailable HOY, ARLINE M Primary Care Unavailable HOY, ARLINE M Primary Care Unavailable HOY, ARLINE M Primary Care Unavailable BARB KIRAN Attending Unavailable JOSE FRANCISCO BROUSSARD Attending Unavailable HOY, ARLINE M Primary Care Unavailable MANNY MEZA Referring Unavailable HOY, ARLINE M Primary Care Unavailable JAMES ROBB Attending Unavailable HOY, ARLINE M Primary Care Unavailable HOY, ARLINE M Primary Care Unavailable JOSE FRANCISCO BROUSSARD Referring Unavailable HOY, ARLINE M Primary Care Unavailable HOY, ARLINE M Primary Care Unavailable Ace GUZMAN Attending Unavailable JOSE FRANCISCO BROUSSARD Referring Unavailable JOSE FRANCISCO BROUSSARD Attending Unavailable HOY, [...] Ace GUZMAN Attending Unavailable JOSE FRANCISCO BROUSSARD Referring Unavailable HOY, ARLINE M Primary Care Unavailable JOSE FRANCISCO BROUSSARD Referring Unavailable HOY, ARLINE M Primary Care Unavailable JOSE FRANCISCO BROUSSARD Attending Unavailable JAMES ROBB Referring Unavailable HOY, ARLINE M Primary Care Unavailable Ace GUZMAN Attending Unavailable HOY, ARLINE M Primary Care Unavailable BARB KIRAN Attending Unavailable HOY, ARLINE M Primary Care Unavailable Ace GUZMAN Referring Unavailable HOY, ARLINE M Primary Care Unavailable HOY, ARLINE M Primary Care Unavailable Ace GUZMAN Referring Unavailable HOY, RALINE M Primary Care Unavailable BALDO GIFFORD Attending Unavailable HOY, ARLINE CURTIS Primary Care Unavailable Arline Orosco MD Primary Care Provider [phone] ARLINE OROSCO Referring Unavailable ARLINE OROSCO Primary Care Unavailable LEROY SHAW Admitting Unavailable LEROY SHAW Attending Unavailable ARLINE OROSCO Primary Care Unavailable Allergies Allergy Classification Reported Allergen(s) Allergy Type Date of Onset Reaction(s) Facility (20 sources) Chlorhexidine; Translations: [CHLORHEXIDINE] Drug Allergy 4 [facility] (20 sources) hibaclens [Other] Propensity to adverse reactions 2 [facility] Work Phone: (1 source) Chlorhexidine Drug Allergy 4 [facility] (3 sources) OTHER; Translations: [OTHER] Propensity to adverse reactions (disorder) 2 [facility] Other [place] [facility] (1 source) Chlorhexidine Drug Allergy 3 [facility] Repository (2 sources) Chlorhexidine; Translations: [CHLORHEXIDINE GLUCONATE] Drug Allergy 6 [facility] Medications Current Medications Medication Drug Class(es) Dates Sig (Normalized) Sig (Original) [id number] 200 actuat albuterol 0.09 mg/actuat metered dose inhaler (10 sources) beta2-Adrenergic Agonist Start: 05-28-2016 PROAIR HFA 90 mcg/actuation inhaler Inhale 2 puffs in the morning and 2 puffs at noon and 2 puffs in the evening and 2 puffs before bedtime. INHALE 2 PUFFS BY MOUTH FOUR TIMES A DAY IF NEEDED. 0 05/28/2016 Active take 2 puff(s) by [facility] every four hours as needed Albuterol Sulfate HFA 108 (90 Base) MCG/ ACT Inhalation Aerosol Solution INHALE 2 PUFFS BY MOUTH EVERY 4 HOURS NEEDED Quantity: 1 Refills: 0 Ordered: 01-Sep-2022 DO Active aspirin 81 mg delayed release oral tablet [...] TAB PO Daily September 14, 2018 12:00am CALCIUM CITRATE/VITAMIN D3 (CALCIUM CITRATE + ORAL) (1 source) take 1 tablet by mouth once daily CALCIUM CITRATE/VITAMIN D3 (CALCIUM CITRATE + ORAL) Take 1 tablet by mouth daily. 0 Active cetirizine hydrochloride 10 mg oral capsule (20 sources) Histamine-1 Receptor Antagonist Start: 09-14-2018 take 1 capsule by mouth once daily Cetirizine (Zyrtec) 10 mg Capsule Active 1 CAP PO Daily September 14, 2018 12:00am take 1 tablet by mouth in the mo rning cetirizine (ZyrTEC) 10 mg tablet Take 1 tablet (10 mg total) by mouth in the morning. 0 Active Comment on above: Take by [...] syringe (20 sources) RANK Ligand Inhibitor Start: 11-19-2020 End: 11-04-2023 denosumab (PROLIA) injection 60 mg Start: 09-14-2018 Denosumab (Pro jose) 60 mg/mL Syringe Active 60 MG SUBCUT [...] PO Twice daily September 14, 2018 12:00am DOCUSATE CALCIUM (STOOL SOFTENER ORAL) Take 1 capsule by mouth as needed. 0 Active Docusate Sodium 100 mg tab Take 2 tablets by mouth. 0 Active Docusate Sodium 100 MG TABS TAKE 1 TABLET DAILY DIRECTED AT BEDTIME Quantity: 0 Refills: 0 Ordered: 01-Sep-2022 DO Active Comment on above: Take 2 tablets by mo ut. doxazosin 2 mg oral tablet (20 sources) [...] inhaler (20 sources) Corticosteroid, beta2-Adrenergic Agonist Start: 09-14-2018 Fluticasone Furoate-Vilanterol (Breo Ellipta) 100-25 mcg/dose Blister With Device Active 1 INH INHALATION Daily September 14, 2018 12:00am Start: 08-07-2017 take 1 puff(s) by in halation once daily BREO ELLIPTA 100-25 mcg/dose blister with device Inhale 1 puff once daily. 0 08/07/2017 Active Comment on above: Inhale 1 Inhalation as [...] 45 mg intramu scularly one time only. losartan potassium 50 mg oral tablet (1 source) Angiotensin 2 Receptor Gabi take 2 tablets by mouth in the morning losartan (COZAAR) 50 mg tablet Take 2 tablets (100 mg total) by mouth in the morning. 0 Active metoprolol tartrate 25 mg oral tablet (13 sources) beta-Adrenergic Gabi take 1 tablet by mouth in the morning, then take 1 tablet by mouth at bedtime metoprolol tartrate (LOPRESSOR) 25 mg tablet Take 1 tablet (25 mg total) by mouth in the morning and 1 tablet (25 mg total) before bedtime. 0 Active End: 09-23-2022 take 1 tablet by mouth once daily metoprolol succinate ER (TOPROL XL) 25 mg 24 hr tablet Take 25 mg by mouth once daily. 0 Active Comment on above: Take 25 mg by mouth once daily. Multivitamin (Multiple Vitamins) Tablet (1 source) Start: 9 take 1 tablet by mouth once daily Multivitamin (Multiple Vitamins) Tablet Active 1 TAB PO Daily September 14, 2018 12:00am Multivitamin preparation (1 source) take 1 tablet by mouth once daily MULTIVITAMIN (MULTIPLE VITAMINS ORAL) Take 1 tablet by mouth daily. 0 Active naproxen sodium 220 mg oral tablet (20 sources) Nonsteroidal Anti-inflammatory Drug take 1 tablet by mouth every twelve hours as needed for pain naproxen sodium (ALEVE) 220 mg tablet Take 1 tablet (220 mg total) by mouth every 12 (twelve) hours as needed for pain. 0 Active End: 09-23-2022 take 1 tablet by mouth twice daily as needed Aleve 220 MG Oral Tablet TAKE 1 TABLET TWICE DAILY NEEDED. Quantity: 0 Refills: 0 Ordered: 01-Sep-2022 DO Active Comment on above: Take 220 mg by mouth twice daily with meals. simethicone 125 mg oral tablet (20 sources) Start: 09-14-2018 take 125 mg by mouth once daily Simethicone Active 125 MG PO Daily September 14, 2018 12:00am Simethicone 125 mg cap Take by mouth. 0 Active Comment on above: Take by mouth. tamsulosin hydrochloride 0.4 mg oral capsule (20 sources) alpha-Adrenergic Gabi Start: 3 take 2 capsules by mouth once daily tamsulosin (FLOMAX) 0.4 mg capsule TAKE 2 CAPSULES BY MOUTH EVERY DAY 180 capsule 3 03/21/2023 Active Start: 09-14-2018 take 1 capsule by mo uth once daily Tamsulosin (Flomax) 0.4 mg Capsule Active 0.4 MG PO Daily September 14, 2018 12:00am take 2 capsules by m outh once daily at bedtime Tamsulosin HCl - 0.4 MG Oral Capsule TAKE 2 CAPSULE Daily At Bedtime Quantity: 180 [...] tablet (20 sources) Serotonin Reuptake Inhibitor Start: 07-25-2016 take 50 mg by mouth once daily [...] Comment on above: Take 400 Units by [facility] once daily. Completed/Discontinued Medications Medication Drug Class(es) Dates Sig (Normalized) Sig (Original) Acetaminophen / HYDROcodone (7 sources) Opioid Agonist Vicodin TABS JAYCEE E 1 TO 2 TABLETS EVERY 4 TO 6 HOURS NEEDED FOR PAIN. Quantity: 0 Refills: 0 Ordered: 01-Sep-2022 DO Active acetylcholine 10% solution - [facility] (1 source) Start: 03-27-2023 End: 03-27-2023 acetylcholine 10% solution - [facility] ascorbic acid 500 mg oral tablet (20 sources) Vitamin C take 1 tablet by mouth once daily ascorbic acid, vitamin C, (VITAMIN C) 500 mg tablet Take 500 mg by mouth once daily. 0 Active Comment on above: Take 500 mg by mouth once daily. bicalutamide 50 mg oral tablet (2 sources) Androgen Receptor Inhibitor Start: 06-26-2023 take 1 tablet by mouth once daily bicalutamide (CASODEX) 50 mg tablet Take 1 tablet by mouth once daily. 30 tablet 3 06/26/2023 Active Comment on above: Take 1 tablet by [facility] once daily. bisacodyl 5 mg delayed release oral tablet (9 sources) Stimulant Laxative take 1 tablet by mouth once daily Dulcolax [place] Laxative 5 MG Oral Tablet Delayed Release [...] Comment on above: Take 1 tablet by [facility] once daily. Calcium Citrate (9 sources) Calcium Citrate + D TABS Take 1 tablet daily Quantity: 0 Refills: 0 Ordered: 01-Sep-2022 DO Active chlorthalidone 25 mg oral tablet (18 sources) Thiazide-like Diuretic Start: 10-11-2022 take 0.5 [...] once daily. irbesartan 300 mg oral tablet (20 sources) Angiotensin 2 Receptor Gabi Start: 3 [...] Take 500 mg by mouth once daily. Multi Vitamin TABS (9 sources) Multi Vitamin TA BS TAKE 1 TABLET DAILY. Quantity: 0 Refills: 0 Ordered: 01-Sep-2022 DO Active MULTI-VITAMIN ORAL (20 sources) MULTI-VITAMIN OR AL Take by mouth. 0 Active Comment on above: Take by mouth. oxybutynin chloride 5 mg oral tablet (20 [...] once daily. simvastatin 10 mg oral tablet (7 sources) HMG-CoA Reductase Inhibitor take 1 tablet [...] Active Start: 09-14-2018 take 1 capsule by [facility] once daily Tolterodine (Detrol La) 4 mg Capsule,Extended Release 24hr Active 4 MG PO Daily September 14, 2018 12:00am Comment on above: 4 mg. Problems Active Problems Problem Classification Problem Date Documented Date Episodic/Chronic Blindness and vision defects (6 sources) Diplopia; Translations: [Diplopia] Onset: 07-31-2022 Episodic Cancer of bladder (2 sources) Malignant tumor of urinary bladder; Translations: [Malignant neoplasm of bladder, unspecified] Onset: 10-06-2016 07-04-2023 Chronic Cancer of bladder (1 source) Personal history of malignant neoplasm of bladder; Translations: [PERSONAL HX MALIG NEOPLASM BLADDER] Onset: 08-04-2022 Episodic Cancer of prostate (20 sources) Malignant tumor of prostate; Translations: [Malignant neoplasm of prostate] Onset: 06-02-2011 Resolved: 07-21-2020 06-02-2011 Chronic Cardiac dysrhythmias (1 source) Bradycardia, unspecified; Translations: [BRADYCARDIA UNSPECIFIED] Onset: 08-02-2022 Episodic Cataract (2 sources) Bilateral pseudophakia; Translations: [Presence of intraocular lens] Chronic Chronic obstructive pulmonary disease and bronchiectasis (20 sources) Chronic obstructive lung disease; Translations: [Chronic obstructive pulmonary disease, unspecified] Onset: 12-11-2017 06-23-2021 Chronic Conduction disorders (3 sources) Atrioventricular block, first degree; Translations: [First degree atrioventricular block] Onset: 06-08-2023 Chronic Disorders of lipid metabolism (20 sources) Mixed hyperlipidemia; Translations: [Mixed hyperlipidemia] Onset: 09-20-2016 06-23-2021 Chronic Essential hypertension (20 sources) Hypertensive disorder; Translations: [Essential (primary) hypertension] Onset: 09-20-2016 06-23-2021 Chronic Headache; including migraine (3 sources) Headache; including migraine; Translations: [HEADACHE UNSPECIFIED] Onset: 08-02-2022 Hypertension with complications and secondary hypertension (1 source) Hypertensive urgency; Translations: [HYPERTENSIVE URGENCY] Onset: 08-04-2022 Chronic Mood disorders (1 source) Mood disorders; Translations: [DEPRESSION UNSPECIFIED] Onset: 08-04-2022 Nutritional deficiencies (1 source) Vitamin D deficiency, unspecified; Translations: [VITAMIN D DEFICIENCY UNSPECIFIED] Onset: 03-28-2022 Chronic Osteoarthritis (1 source) Arthritis; Translations: [Unspecified osteoarthritis, unspecified site] Onset: 09-20-2016 09-20-2016 Chronic Other aftercare (1 source) prison (current) use of aspirin; Translations: [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 CURRENT USE OF ASPIRIN] Onset: 08-04-2022 Episodic Other aftercare (1 source) 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; Translations: [OTH HALF-WAY CURRENT DRUG THERAPY] Onset: 08-04-2022 Episodic Other bone disease and musculoskeletal deformities (5 sources) Other specified disorders of bone density and structure, unspecified site; Translations: [OTH D/O BONE DEN STRUCT UNS SITE] Onset: 05-17-2022 Episodic Other circulatory disease (1 source) Orthostatic hypotension; Translations: [Orthostatic hypotension] Onset: 02-15-2023 Episodic Other circulatory disease (3 sources) Orthostatic hypotension; Translations: [Orthostatic hypotension] 03-27-2023 Episodic Other ear and sense organ disorders (1 source) Hearing loss; Translations: [Unspecified hearing loss, unspecified ear] Onset: 09-20-2016 08-01-2022 Chronic Other eye disorders (1 source) Bilateral posterior vitreous detachment; Translations: [Vitreous degeneration, bilateral] Chronic Other eye disorders (1 source) Tear film insufficiency; Translations: [Dry eye syndrome of bilateral lacrimal glands] Episodic Other screening for suspected conditions (not mental disorders or infectious disease) (2 sources) Computed tomography result abnormal; Translations: [Abnormal findings on diagnostic imaging of other specified body structures] Onset: 05-17-2016 Resolved: 09-20-2016 08-01-2022 Chronic Other upper respiratory disease (1 source) Nasal congestion; Translations: [NASAL CONGESTION] Onset: 05-20-2022 Episodic Residual codes; unclassified (9 sources) Body mass index 20-24 - normal; Translations: [Body Mass Index between 19-24, adult] Episodic Substance-related disorders (13 sources) Nicotine dependence, cigarettes, uncomplicated; Translations: [Smokes tobacco daily] Onset: 05-17-2016 Chronic Comment on above: 1 PPD; Transient [...] stenosis of bilateral carotid arteries] Onset: 09-02-2022 Unclassified (1 source) Malignant neoplasm of urinary bladder, unspecified site ([facility]) [C67.9] Onset: 07-04-2023 Past or Other Problems Problem Classification Problem Date Documented Da te Episodic/Chronic Calculus of urinary tract (3 sources) Personal history of urinary calculi; Translations: [Kidney stone] Onset: 05-17-2016 02-13-2018 Episodic Cancer of prostate (20 sources) History of malignant neoplasm of prostate; Translations: [Personal history of malignant neoplasm of prostate] Onset: 12-27-2013 Resolved: 10-23-2018 12-27-2013 Episodic Diabetes mellitus without complication (1 source) Other abnormal glucose; Translations: [OTHER ABNORMAL GLUCOSE] Onset: 03-28-2022 Episodic Genitourinary symptoms and ill-defined conditions (20 sources) Martinez hematuria; Translations: [Gross hematuria] Onset: 06-02-2011 06-02-2011 Episodic Nonspecific chest pain (4 sources) Chest pain, unspecified; Translations: [CHEST PAIN UNSPECIFIED] Onset: 03-24-2022 Episodic Other bone disease and musculoskeletal deformities (18 sources) Osteopenia; Translations: [Other specified disorders of bone density and structure, multiple sites] Onset: 09-20-2016 Episodic Other diseases of bladder and urethra (1 source) Urethral stricture; Translations: [Unspecified urethral stricture, male, unspecified site] Onset: 05-17-2016 08-01-2022 Episodic Other diseases of kidney and ureters (1 source) Cyst of kidney; Translations: [Cyst of kidney, acquired] Onset: 05-17-2016 08-23-2017 Episodic Other eye disorders (20 sources) Hypertropia of right eye; Translations: [Vertical strabismus, right eye] Onset: 06-23-2021 Episodic Other lower respiratory disease (1 source) Other nonspecific abnormal finding of lung field; Translations: [OTH NONSPECIFIC ABN FIND LNG FIELD] Onset: 03-24-2022 Episodic Other male genital disorders (1 source) Atrophy of testis; Translations: [Atrophy of testis] Onset: 05-17-2016 05-17-2016 Episodic Other screening for suspected conditions (not mental disorders or infectious disease) (2 sources) Patient encounter status; Translations: [Encounter for screening for other disorder] Onset: 05-17-2016 12-07-2022 Episodic Residual codes; unclassified (1 source) At risk of disease; Translations: [Other specified personal risk factors, not elsewhere classified] Onset: 02-22-2017 02-22-2017 Episodic Unclassified (1 source) CONTACT W/AND (SUSP) EXPOS COVID-19; Translations: [CONTACT W/AND (SUSP) EXPOS COVID-19] Onset: 05-17-2022 Unclassified (1 source) COUGH, UNSPECIFIED; Translations: [COUGH, UNSPECIFIED] Onset: 11-17-2021 Results Test Name Value Interpretation Reference Range Facility Cytologyon 07-04-2023 Cytology Normal [facility] Comment on above: Result Comment: [facility] [address] [place] [address] Cytology Consultation Patient Name:JM BARROW JR.:1945 (Age: 77)Gender:MTaken:4Reported:07/05/2023 16:40Physician(s):Leroy Shaw M.D. ([phone])Copy To: Rec. #:[id number]: #[id number] Final Cytologic Diagnosis Voided urine: Negative for high-grade urothelial cell carcinoma. 07/05/2023 Interpretation performed at [facility], [address] [place], [place] [id number], License number: [id number].Electronically Signed Out By Tony Sanchez MD Clinical History Malignant neoplasm of urinary bladder ([facility]) C67.9. Cancer Gross Description Received was 30mL of cloudy yellow fluid unfixed labeled as [place], Voided urine . 15mL used for Cytology. See UroVysion report. 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 Interpretation See Note This test result does not rule out the possibility that the patient may have a low-grade (i.e. grade 1 or 2) non-invasive papillary urothelial carcinoma. Some patients with low grade non-invasive papillary urothelial carcinoma do not have abnormalities with this FISH test. ADDITIONAL INFORMATION Fluorescence in situ hybridization (FISH) with centromere probes for chromosomes 3 (D3Z1), 7(D7Z1), 17(D17Z1), and a locus specific probe for 9p21 ([employer] [place], [place]). This test has been modified from the oil field pumper's instructions. Its performance characteristics were determined by [facility] in a manner consistent with CLIA requirements. This test has not been cleared or approved by the U.S. Food and Drug Administration. Reason for Referral Evaluate for urothelial carcinoma. Specimen Varies Source Urine, NOS Released By Curtis Evans M.D. Test Performed by: [address] [address] Structural [employer] Tr[employer] Worker: Baldo Hwakins M.D. Ph.D.; CLIA# [id number] Performed By: #### 3 0896-5 #### [facility] ([id number]) [address] [place] [address] CNOVSPon 06-26-2023 CNOVSP Visit (SP) Office ( [facility]) MICHELAJM FINK ([id number]) 1945 M Date Time Provider Department 06/26/23 10:30 AM JOSE FRANCISCO BROUSSARD During your visit today, we recorded the following information about you: Temperature Pulse Respiration Blood pressure 97.5 degrees 85/minute 18/minute 99/54 Weight Height 81.1 kg 1.778 m Jose Francisco Broussard MD 06/26/2023 8:10 PM Signed PATIENT NAME: Jm Barrow DATE: 06/26/2023 PRIMARY CARE PHYSICIAN: Arline Orosco MD OTHER PHYSICIANS: Dr. Guzman, Dr. Leroy Shaw, Dr. Guzman, Dr. Gifford, Dr. James Robb Portions of this encounter note have been copied from my note from 04/10/2023 and has been updated where appropriate, and reflect my current medical decision making from today. CC: This is a 77 year old male with recurrent prostate cancer, seen for scheduled follow-up. INTERIM HISTORY: Since the patient's last visit here he underwent a repeat [facility] PET scan, which once again revealed revealed evidence of recurrent disease in the prostate gland, but no evidence of distant metastases. Once again he conferred with [facility] urology, but is reluctant to consider brachytherapy at this time. Clinically he feels well. He has had no urinary symptoms. No unusual pain or other systemic complaints. MEDICATIONS: Current Outpatient Medications Medication Sig simvastatin [...] INSERT LENS,EX Bilateral 06/2019 Dr. Alfa Flannery, [place] TONSILLECTOMY HX FAMILY HISTORY: FAMILY HISTORY Problem [...] hot flashes, cold or heat intolerance, urinary (more content not included)... Normal [facility] CBC W Auto Differential pane l (Bld)on 06-23-2023 Basophils (Bld) [#/Vol] 0.06 10*3/uL Normal <0.11 [facility] Comment on above: Order Comment: Speci men Type: BLOOD SPECIMENOrdering Facility: [facility] Address: [address] [place] [address] Performed By: #### 5 7021-8 ####[facility] [id number] [place] [address] Basophils/100 WBC (Bld) 0.9 % Normal [facility] Comment on above: Order Comment: Speci men Type: BLOOD SPECIMENOrdering Facility: [facility] Address: [address] [place] [address] Performed By: #### 5 7021-8 ####[facility] [id number] [place] [address] Differential cell count method Nom (Bld) Auto Normal [facility] Comment on above: Order Comment: Speci men Type: BLOOD SPECIMENOrdering Facility: [facility] Address: [address] [place] [address] Performed By: #### 5 7021-8 ####[facility]CL[facility] [id number] [place] [address] Eosinophils (Bld) [#/Vol] 0.54 10*3/uL High <0.46 [facility] Comment on above: Order Comment: Speci men Type: BLOOD SPECIMENOrdering Facility: [facility] Address: [address] [place] [address] Performed By: #### 5 7021-8 ####[facility] [id number] [place] [address] Eosinophils/100 WBC (Bld) 8.2 % Normal [facility] Comment on above: Order Comment: Speci men Type: BLOOD SPECIMENOrdering Facility: [facility] Address: [address] [place] [address] Performed By: #### 5 7021-8 ####[facility] LABCLIA [id number] [place] [address] Erythrocyte distribution width (RBC) [Ratio] 12.6 % Normal 11.5-15.0 [facility] Comment on above: Order Comment: Speci men Type: BLOOD SPECIMENOrdering Facility: [facility] Address: [address] [place] [address] Performed By: #### 5 7021-8 ####[facility] LABCLIA [id number] [place] [address] Hematocrit (Bld) [Volume fraction] 44.4 % Normal 39.0-51.0 [facility] Comment on above: Order Comment: Speci men Type: BLOOD SPECIMENOrdering Facility: [facility] Address: [address] [place] [address] Performed By: #### 5 7021-8 ####[facility] LABIA [id number] [place] [address] Hemoglobin (Bld) [Mass/Vol] 14.9 g/dL Normal 13.0-17.0 [facility] Comment on above: Order Comment: Speci men Type: BLOOD SPECIMENOrdering Facility: [facility] Address: [address] [place] [address] Performed By: #### 5 7021-8 ####[facility] LABIA [id number] [place] [address] Immature granulocytes (Bld) [#/Vol] 10*3/uL Normal <0.10 [facility] Comment on above: Order Comment: Speci men Type: BLOOD SPECIMENOrdering Facility: [facility] Address: [address] [place] [address] Performed By: #### 5 7021-8 ####[facility] LABIA [id number] [place] [address] Immature granulocytes/100 WBC (Bld) 0.2 % Normal [facility] Comment on above: Order Comment: Speci men Type: BLOOD SPECIMENOrdering Facility: [facility] Address: [address] [place] [address] Performed By: #### 5 7021-8 ####[facility] LABIA [id number] [place] [address] Lymphocytes (Bld) [#/Vol] 1.81 10*3/uL Normal 1.00-4.00 [facility] Comment on above: Order Comment: Speci men Type: BLOOD SPECIMENOrdering Facility: [facility] Address: [address] [place] [address] Performed By: #### 5 7021-8 ####[facility] LABCLIA [id number] [place] [address] Lymphocytes/100 WBC (Bld) 27.5 % Normal [facility] Comment on above: Order Comment: Speci men Type: BLOOD SPECIMENOrdering Facility: [facility] Address: [address] [place] [address] Performed By: #### 5 7021-8 ####[facility] LABCLIA [id number] [place] [address] MCH (RBC) [Entitic mass] 30.8 pg Normal 26.0-34.0 [facility] Comment on above: Order Comment: Speci men Type: BLOOD SPECIMENOrdering Facility: [facility] Address: [address] [place] [address] Performed By: #### 5 7021-8 ####[facility] LABIA [id number] [place] [address] MCHC (RBC) [Mass/Vol] 33.6 g/dL Normal 30.5-36.0 [facility] Comment on above: Order Comment: Speci men Type: BLOOD SPECIMENOrdering Facility: [facility] Address: [address] [place] [address] Performed By: #### 5 7021-8 ####[facility] LABCLIA [id number] [place] [address] MCV (RBC) [Entitic vol] 91.9 fL Normal 80.0-100.0 [facility] Comment on above: Order Comment: Speci men Type: BLOOD SPECIMENOrdering Facility: [facility] Address: [address] [place] [address] Performed By: #### 5 7021-8 ####[facility] LABIA [id number] [place] [address] Monocytes (Bld) [#/Vol] 0.50 10*3/uL Normal <0.87 [facility] Comment on above: Order Comment: Speci men Type: BLOOD SPECIMENOrdering Facility: [facility] Address: [address] [place] [address] Performed By: #### 5 7021-8 ####[facility] LABCLIA [id number] [place] [address] Monocytes/100 WBC (Bld) 7.6 % Normal [facility] Comment on above: Order Comment: Speci men Type: BLOOD SPECIMENOrdering Facility: [facility] Address: [address] [place] [address] Performed By: #### 5 7021-8 ####[facility] LABCLIA [id number] [place] [address] Neutrophils (Bld) [#/Vol] 3.66 10*3/uL Normal 1.45-7.50 [facility] Comment on above: Order Comment: Speci men Type: BLOOD SPECIMENOrdering Facility: [facility] Address: [address] [place] [address] Performed By: #### 5 7021-8 ####[facility] LABCLIA [id number] [place] [address] Neutrophils/100 WBC (Bld) 55.6 % Normal [facility] Comment on above: Order Comment: Speci men Type: BLOOD SPECIMENOrdering Facility: [facility] Address: [address] [place] [address] Performed By: #### 5 7021-8 ####[facility] LABCLIA [id number] [place] [address] Nucleated RBC (Bld) [#/Vol] 10*3/uL Normal <0.01 [facility] Comment on above: Order Comment: Speci men Type: BLOOD SPECIMENOrdering Facility: [facility] Address: [address] [place] [address] Performed By: #### 5 7021-8 ####[facility] LABCLIA [id number] [place] [address] Nucleated RBC/100 WBC (Bld) [Ratio] 0.0 /100 WBC Normal [facility] Comment on above: Order Comment: Speci men Type: BLOOD SPECIMENOrdering Facility: [facility] Address: [address] [place] [address] Performed By: #### 5 7021-8 ####[facility] LABCLIA [id number] [place] [address] Platelet mean volume (Bld) [Entitic vol] 9.5 fL Normal 9.0-12.7 [facility] Comment on above: Order Comment: Speci men Type: BLOOD SPECIMENOrdering Facility: [facility] Address: [address] [place] [address] Performed By: #### 5 7021-8 ####[facility] LABCLIA [id number] [place] [address] Platelets (Bld) [#/Vol] 222 10*3/uL Normal 150-400 [facility] Comment on above: Order Comment: Speci men Type: BLOOD SPECIMENOrdering Facility: [facility] Address: [address] [place] [address] Performed By: #### 5 7021-8 ####[facility] LABCLIA [id number] [place] [address] RBC (Bld) [#/Vol] 4.83 10*6/uL Normal 4.20-6.00 [facility] Comment on above: Order Comment: Speci men Type: BLOOD SPECIMENOrdering Facility: [facility] Address: [address] [place] [address] Performed By: #### 5 7021-8 ####[facility] LABCLIA [id number] [place] [address] WBC (Bld) [#/Vol] 6.58 10*3/uL Normal 3.70-11.00 [facility] Comment on above: Order Comment: Speci men Type: BLOOD SPECIMENOrdering Facility: [facility] Address: [address] [place] [address] Performed By: #### 5 7021-8 ####[facility] LABCLIA [id number] [place] [address] Comprehensive metabolic 2000 panelon 06-23-2023 Albumin [Mass/Vol] 4.2 g/dL Normal 3.9-4.9 [facility] Comment on above: Order Comment: Speci men Type: BLOOD SPECIMENOrdering Facility: [facility] Address: [address] [place] [address] Performed By: #### 2 4323-8 ####[facility] LABCLIA [id number] [place] [address] ALP [Catalytic activity/Vol] 58 U/L Normal 38-113 [facility] Comment on above: Order Comment: Speci men Type: BLOOD SPECIMENOrdering Facility: [facility] Address: [address] [place] [address] Performed By: #### 2 4323-8 ####[facility] LABCLIA [id number] [place] [address] ALT [Catalytic activity/Vol] 10 U/L Normal 10-54 [facility] Comment on above: Order Comment: Speci men Type: BLOOD SPECIMENOrdering Facility: [facility] Address: [address] [place] [address] Performed By: #### 2 4323-8 ####[facility] LABCLIA [id number] [place] [address] Anion gap [Moles/Vol] 11 mmol/L Normal 9-18 [facility] Comment on above: Order Comment: Speci men Type: BLOOD SPECIMENOrdering Facility: [facility] Address: [address] [place] [address] Performed By: #### 2 4323-8 ####[facility] LABCLIA [id number] [place] [address] AST [Catalytic activity/Vol] 17 U/L Normal 14-40 [facility] Comment on above: Order Comment: Speci men Type: BLOOD SPECIMENOrdering Facility: [facility] Address: [address] [place] [address] Performed By: #### 2 4323-8 ####[facility] LABCLIA [id number] [place] [address] Bilirubin [Mass/Vol] 0.7 mg/dL Normal 0.2-1.3 [facility] Comment on above: Order Comment: Speci men Type: BLOOD SPECIMENOrdering Facility: [facility] Address: [address] [place] [address] Performed By: #### 2 4323-8 ####[facility] LABCLIA [id number] [place] [address] Calcium [Mass/Vol] 11.2 mg/dL High 8.5-10.2 [facility] Comment on above: Order Comment: Speci men Type: BLOOD SPECIMENOrdering Facility: [facility] Address: [address] [place] [address] Performed By: #### 2 4323-8 ####[facility] LABCLIA [id number] [place] [address] Chloride [Moles/Vol] 101 mmol/L Normal 97-105 [facility] Comment on above: Order Comment: Speci men Type: BLOOD SPECIMENOrdering Facility: [facility] Address: [address] [place] [address] Performed By: #### 2 4323-8 ####[facility] LABCLIA [id number] [place] [address] CO2 [Moles/Vol] 31 mmol/L High 22-30 [facility] Comment on above: Order Comment: Speci men Type: BLOOD SPECIMENOrdering Facility: [facility] Address: [address] [place] [address] Performed By: #### 2 4323-8 ####[facility] LABCLIA [id number] [place] [address] Creatinine [Mass/Vol] 1.06 mg/dL Normal 0.73-1.22 [facility] Comment on above: Order Comment: Speci men Type: BLOOD SPECIMENOrdering Facility: [facility] Address: [address] [place] [address] Performed By: #### 2 4323-8 ####[facility] LABCLIA [id number] [place] [address] Creatinine and Glomerular filtration rate.predicted panel (S/P/Bld) 73 mL/min/1.73m??? Normal >=60 [facility] Comment on above: Order Comment: Speci men Type: BLOOD SPECIMENOrdering Facility: [facility] Address: [address] [place] [address] Result Comment: Jessica mated Glomerular Filtration Rate [...] actual GFR. Performed By: #### 2 4323-8 ####[facility] LABCLIA [id number] [place] [address] Glucose [Mass/Vol] 99 mg/dL Normal 74-99 [facility] Comment on above: Order Comment: Speci men Type: BLOOD SPECIMENOrdering Facility: [facility] Address: [address] [place] [address] Result Comment: The [place] Diabetes Association (ADA) provides guidance for cutoff [...] Standards of Medical Care in Diabetes 2016, [place] [employer] Association. Diabetes Care. 2016.39(Suppl 1). Performed By: #### 2 4323-8 ####[facility] LABCLIA [id number] [place] [address] Potassium [Moles/Vol] 3.5 mmol/L Low 3.7-5.1 [facility] Comment on above: Order Comment: Speci men Type: BLOOD SPECIMENOrdering Facility: [facility] Address: [address] [place] [address] Performed By: #### 2 4323-8 ####[facility] LABCLIA [id number] [place] [address] Protein [Mass/Vol] 7.2 g/dL Normal 6.3-8.0 [facility] Comment on above: Order Comment: Speci men Type: BLOOD SPECIMENOrdering Facility: [facility] Address: [address] [place] [address] Performed By: #### 2 4323-8 ####[facility] LABCLIA [id number] [place] [address] Sodium [Moles/Vol] 143 mmol/L Normal 136-144 [facility] Comment on above: Order Comment: Speci men Type: BLOOD SPECIMENOrdering Facility: [facility] Address: [address] [place] [address] Performed By: #### 2 4323-8 ####[facility] LABCLIA [id number] [place] [address] Urea nitrogen [Mass/Vol] 26 mg/dL High 9-24 [facility] Comment on above: Order Comment: Speci men Type: BLOOD SPECIMENOrdering Facility: [facility] Address: [address] [place] [address] Performed By: #### 2 4323-8 ####[facility] LABCLIA [id number] [place] [address] PSA SerPl-mCncon 06-23-2023 Prostate specific Ag [Mass/Vol] 0.84 ng/mL Normal <2.60 [facility] Comment on above: Order Comment: Speci men Type: BLOOD SPECIMENOrdering Facility: [facility] Address: [address] [place] [address] Result Comment: Tota l PSA test methodology used is the Electrochemiluminescence Immunoassay by [employer]. Total PSA values by differing methodologies cannot be interchanged. Performed By: #### 2 857-1 ####[facility] LABCLIA [id number] [place] [address] [place] CNOVon 05-17-2023 CNOV Office Visit (RADTSA ) PUSHPAJM Boyer ([id number]) 1945 M Date Time Provider Department 05/17/23 [...] General appeara (more content not included)... Normal [facility] PET/CT PROSTATE WBon 12-2 [place] PET/CT PROSTATE WB * * *Final Report* * * DATE OF EXAM: May 12 2023 3:06PM NRN 0093 - [place] PET/CT PROSTATE WB / PROCEDURE REASON: Malignant neoplasm of prostate (HCC) * * * * Physician Interpretation * * * * RESULT: Ga-68 PSMA WHOLE BODY PET/CT SCAN HISTORY: Prostate cancer recurrence PREVIOUS COMPARISON PET/CT STUDY: 06/02/2022 OTHER COMPARISON: MRI 08/15/2022, CT abdomen and pelvis 07/09/2013 TECHNIQUE: 10.8 mCi of [id number]. The PET imaging was obtained between skull [...] nodes have been present since the prior 2013 CT, likely representing benign hyperplastic nodes. BONE [...] any questions regarding this interpretation, please call [phone]. If you are unable to reach us at the number above, please feel free to contact [facility] eRadiology at [phone]. [id number] Normal [facility] CNOVSPon 04-10-2023 CNOVSP Visit (SP) Office (H EMASA) JM BARROW ([id number]) 1945 M Date Time Provider Department 04/10/23 [...] he was seen by Dr. Robb at [facility] to discuss possible brachytherapy for [...] CATARACT, INSERT LENS,EX Bilateral 06/[address] [facility], [place] TONSILLECTOMY HX FAMILY HISTORY: FAMILY HISTORY Problem [...] dizziness, gait (more content not included)... Normal [facility] JM BARROW ([id number]) 1945 M Date Time Provider Department 04/10/23 [facility] During your visit today, we recorded the following information about you: Kiera Williamson 04/10/2023 3:28 PM Signed This form is used for MAIN CAMPUS APPOINTMENTS ONLY. Is this request for a [place] PET scan appointment? Yes: Inspection Supervisor: Kiera Romero Requesting Person Dr guzman: Area Code + Phone/Pager: [phone] Who do we call to schedule this appointment? Other Contact: PSMA pet please message anne browne in [place] Requesting Staff Dr guzman Area Code + Phone/Pager: [phone] PET Orders (A delay in scheduling will [...] Send requests to P COORD REVIEW Brenda Berrios 04/11/2023 10:04 AM Signed Authorization number: PSMA Authorization date range: PSMA Primary Insurance: [employer] Diagnosis: Prostate cancer (HCC) [C61] DX Imaging: PET Scan: 06/02/2022 PET Pathology: 02/14/2000 Pelvic lymph node biopsy ([facility], Dr. Doug Regalado) Metastatic prostate adenocarcinoma involving 1 of 3 lymph nodes (right obturator LN) PROSTATE GLAND, LEFT, LEVELS 1-4 , NEEDLE BIOPSIES ([id number], A-D) - PROSTATIC ADENOCARCINOMA, KITA SCORE 7 (4+3). Comment: Adenocarcinoma involves 60% of the needle biopsy specimens. Perineural invasion is present. 2. PROSTATE GLAND, RIGHT, LEVELS 1-4, NEEDLE BIOPSIES ([id number]; E-H) - PROSTATIC ADENOCARCINOMA, KITA SCORE 7 (4+3) 01/20/2000 TRUS prostate biopsy (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 or P [place] SPECIAL STUDIES Brenda Berrios 04/11/2023 10:04 AM Signed Auth#:[id number] Date Range: 04-11-23 to 07-09-2023 33545/PSMA- piflufolastat (Pylarify) F-18 Ace Montoya INS Contact Number: Intake: online Case/Ref#: [id number] Notes: 04/11/2023 Authorized online via [employer] routed to [place] and [place] for scheduling in [place] per patient's request Allergies As of Date: 04/10/2023 Noted Allergy Reaction CHLORHEXIDINE 05/21/2013 2 - Rash hibaclens [Other] 06/02/2011 2 - Rash Date Reviewed: 04/10/2023 Reviewed by: Vidhi Rico - Fully Assessed Reason for Visit: Nm Pet Request [1088] Prescriptions as of 04/12/2023 - simvastatin (ZOCOR) [...] Vitamin E, (more content not included)... Normal [facility] PSA SerPl-mCncon 04-03-2023 Prostate specific Ag [Mass/Vol] 0.67 ng/mL Normal <2.60 [facility] Comment on above: Order Comment: Speci men Type: BLOOD SPECIMENOrdering Facility: [facility] Address: [address] [place] [address] Result Comment: Tota l PSA test methodology used is the Electrochemiluminescence Immunoassay by [employer]. Total PSA values by differing methodologies cannot be interchanged. Performed By: #### 2 857-1 ####[facility] LABCLIA [id number] [facility] [id number] [address] [place] CNOVon 02-23-2023 CNOV Office Visit (RADTSA ) PERCYJM Dean ([id number]) 1945 M Date Time Provider Department 02/23/23 [...] follow-up with Dr. Shaw. 2 Prostate cancer Corona 8, node positive with prior treatment including pelvic radiation as well as androgen ablative therapy, rad (more content not included)... Normal [facility] PSA [facility] 02-21-2023 Prostate specific Ag [Mass/Vol] 0.49 ng/mL Normal <2.60 [facility] Comment on above: Order Comment: Speci men Type: BLOOD SPECIMENOrdering Facility: [facility] Address: [address] [place] [address] Result Comment: Tota l PSA test methodology used is the Electrochemiluminescence Immunoassay by [employer]. Total PSA values by differing methodologies cannot be interchanged. Performed By: #### 2 857-1 ####[facility] LABCLIA [id number] [place] [address] [place] 25(OH)D3 [facility] 2022 25-hydroxyvitamin D3 [Mass/Vol] 63.9 ng/mL Normal 31.0-80.0 [facility] Comment on above: Order Comment: Speci men Type: BLOOD SPECIMEN Ordering Facility: [facility] Address: [address] [place] [address] Result Comment: Clas sification of 25 [place] Vitamin D status: Deficiency/Insufficiency: < or = 30 ng/ml. Sufficiency/Optimal Levels: 31-80 ng/mL Toxicity: > 100 ng/mL. Test performed by chemiluminescent immunoassay. Performed By: #### 1 989-3 #### [facility] CLIA [id number] [address] [place] [address] [place] CNOVon 02-15-2023 CNOV Office Visit ([facility] ) JM BARROW ([id number]) 1945 M Date Time Provider Department 02/15/23 9:00 [facility] During your visit today, we recorded [...] BP may drop by 10-15 points. His steamblaster was concerned about autonomic neuropathy; recommending to [...] INSERT LENS,EX Bilateral 06/2019 Dr. Grimm - [place], [place] TONSILLECTOMY HX MEDICATIONS: Current Outpatient Medications Medication [...] Use Smoking (more content not included)... Normal [facility] HbA1c (Bld)on 02-15-2023 Average glucose Estimated from glycated hemoglobin (Bld) [Mass/Vol] 105 mg/dL Normal [facility] Comment on above: Order Comment: Aroldo rahman Type: BLOOD SPECIMEN Ordering Facility: [facility] Address: [address] [place] [address] Result Comment: eAG: (Estimated average glucose) is a calculated value from HgbA1c and is manufacturers representative of the average blood glucose level in the last 2-3 month period. Performed By: #### 5 5454-3 #### [facility] CLIA [id number] [address] [place] [address] [place] HbA1c (Bld) [Mass fraction] 5.3 % Normal 4.3-5.6 [facility] Comment on above: Order Comment: Aroldo rahman Type: BLOOD SPECIMEN Ordering Facility: [facility] Address: [address] [place] [address] Result Comment: Amer [place] Diabetes Association guidelines indicate that patients with HgbA1c in the range 5.7-6.4% are at increased risk for development of diabetes, and intervention by lifestyle modification may be beneficial. HgbA1c greater or equal to 6.5% is considered diagnostic of diabetes. Performed By: #### 5 5454-3 #### [facility] CLIA [id number] [address] [place] [address] [place] IMMUNOFIXATION SCREEN, SERUM on 02-15-2023 MPA RESULT No M protein is identified. Normal No M protein is identified. [facility] Comment on above: Order Comment: Speci men Type: BLOOD SPECIMEN Ordering Facility: [facility] Address: [address] [place] [address] Performed By: #### I FESC #### [facility] CLIA [id number] [address] [place] STAFF REVIEW (MPA) Reviewed by Martin charles MD, Ph.D ([id number]) [facility] Comment on above: Order Comment: Speci men Type: BLOOD SPECIMEN Ordering Facility: [facility] Address: [address] [place] [address] Performed By: #### I FES #### [facility] CLIA [id number] [address] [place] [address] [place] IMMUNOGLOBULINS GAMon 2022 IgA [Mass/Vol] 281 mg/dL Normal 70-400 [facility] Comment on above: Order Comment: Speci men Type: BLOOD SPECIMEN Ordering Facility: [facility] Address: [address] [place] [address] Performed By: #### S ERIMM #### [facility] CLIA [id number] [address] [place] [address] [place] IgG [Mass/Vol] 955 mg/dL Normal 700-1600 [facility] Comment on above: Order Comment: Speci men Type: BLOOD SPECIMEN Ordering Facility: [facility] Address: [address] [place] [address] Performed By: #### S ERIMM #### [facility] CLIA [id number] [address] [place] [address] [place] IgM [Mass/Vol] 90 mg/dL Normal 40-230 [facility] Comment on above: Order Comment: Speci men Type: BLOOD SPECIMEN Ordering Facility: [facility] Address: [address] [place] [address] Performed By: #### S ERIMM #### [facility] CLIA [id number] [address] [place] [address] [place] KAPPA/AREVALO,FREE,SERon 2022 Immunoglobulin light chains.kappa.free (S) [Mass/Vol] 41.1 mg/L High 3.3-19.4 [facility] Comment on above: Order Comment: Aroldo josiah Type: BLOOD SPECIMEN Ordering Facility: [facility] Address: [address] [place] [address] Result Comment: Rare ly, increased serum free light chains levels may not be detected or accurately quantified due to prozone phenomenon or in high viscosity samples using this immunoturbidimetric assay. Correlation with other laboratory results and clinical findings is recommended. The [place] Free Light Chain was performed using the Binding Site Optilite immunoturbidimetric method. Result obtained with different assay methods or kits cannot be used interchangeably. Performed By: #### K LFRS #### [facility] CLIA [id number] [address] [place] [address] [place] Immunoglobulin light chains.kappa/Immun oglobulin light chains.lambda (S) [Mass ratio] 2.00 High 0.26-1.65 [facility] Comment on above: Order Comment: [facility] Type: BLOOD SPECIMEN Ordering Facility: [facility] Address: [address] [place] [address] Performed By: #### K LFRS #### [facility] CLIA [id number] [address] [place] [address] [place] Immunoglobulin light chains.lambda.free [Mass/Vol] 20.6 mg/L Normal 5.7-26.3 [facility] Comment on above: Order Comment: [facility] Type: BLOOD SPECIMEN Ordering Facility: [facility] Address: [address] [place] [address] Result Comment: Rare ly, increased serum free [...] interchangeably. Performed By: #### K LFRS #### [facility] CLIA [id number] [address] [place] [address] [place] MONOCLONAL PROT UR W/INTERPo n 02-15-2023 STAFF REVIEW ([facility]) Reviewed by Martin Rojo MD, Ph.D ([id number]) Normal [facility] Comment on above: Order Comment: Speci men Type: URINE SPECIMEN Ordering Facility: [facility] Address: [address] [place] [address] Performed By: #### U RMPA #### [facility] CLIA [id number] [address] [place] [address] [place] UMPA RESULT No M protein is identified. Normal No M protein is identified. [facility] Comment on above: Order Comment: Speci men Type: URINE SPECIMEN Ordering Facility: [facility] Address: [address] [place] [address] Performed By: #### U RMPA #### [facility] CLIA [id number] [address] [place] [address] [place] Methylmalonate SerPl-sCncon 02-15-2023 Methylmalonate [Moles/Vol] 0.14 umol/L Normal <=0.40 [facility] Comment on above: Order Comment: Speci men Type: BLOOD SPECIMEN Ordering Facility: [facility] Address: [address] [place] [address] Result Comment: This test was developed and its performance characteristics determined by [facility]'s [facility] Pathology [facility] [place] ([facility]). It has not been cleared or approved by the FDA. [facility] is regulated under CLIA as qualified to perform high-complexity testing. This test is used for clinical purposes. It should not be regarded as investigational or for research. Performed By: #### 1 3964-2 #### [facility] CLIA [id number] [address] [place] [address] [place] Vit B12 SerPl-mCncon 023 Cobalamin (Vitamin B12) [Mass/Vol] 1889 pg/mL High 232-1245 [facility] Comment on above: Order Comment: Speci men Type: BLOOD SPECIMEN Ordering Facility: [facility] Address: [address], [place] [address] Performed By: #### 2 132-9 #### [facility] CLIA [id number] [address] [facility] CNOVon 01-04-2023 CNOV Office Visit (URMN ) JM BARROW ([id number]) 1945 M Date Time Provider Department 01/04/23 1:00 PM JAMES ROBB During your visit today, we recorded the following information about you: Pulse Blood pressure Weight Height 56/minute 168/72 81.6 kg 1.778 m James Robb MD 01/04/2023 1:08 PM Signed PROSTATE CANCER INITIAL VISIT SERVICE DATE: January 04, 2023 PRIMARY CARE PROVIDER: Arline Orosco MD REFERRING PROVIDER: Manny Meza [address]10 [facility] [address] Consult requested for an opinion regarding the evaluation and treatment of prostate cancer. My final impression and recommendations will be communicated back to the requesting physician by way of the shared medical record or letter via US mail. I spent 60 minutes in the visit, with more than 50% of the total kwhl-id-mxsf time of the visit in counseling / [...] Available Type of Biopsy TRUS Random Biopsy Corona/ISUP Group unkn Total # of Biopsy Cores [...] INSERT LENS,EX Bilateral 06/2019 Dr. Alfa [place], [place] TONSILLECTOMY HX FAMILY HISTORY Problem Relation Age [...] once daily. (more content not included)... Normal [facility] Crys 12-28-2022 ELSAN Telephone (Cloneless) JM BARROW ([id number]) 1945 M Date Time Provider Department 12/28/22 UMER DALE During your visit today, we recorded the following information about you: Umer Dale RN 12/28/2022 11:[address] Broussard spoke w/ Dr Guzman regarding [...] Reason for Visit: Care Coordination [3491] Cmt: Radiation Appointment Prescriptions as of 12/28/2022 [...] Encounter Status:Closed by UMER DALE on 12/28/22 [facility]SP[facility] ([facility]) JM BARROW ([id number]) 1945 M Date Time Provider Department 12/26/22 [...] last visit here he was seen at [facility] [place] by Dr. Meza to evaluate for HIFU, [...] CATARACT, INSERT LENS,EX Bilateral 06/[address] [facility], [place] TONSILLECTOMY HX FAMILY HISTORY: FAMILY HISTORY Problem [...] itching, pallor, (more content not included)... Normal [facility] PSA SerPl-mCncon 12-19-2022 Prostate specific Ag [Mass/Vol] 0.48 ng/mL Normal <2.60 [facility] Comment on above: Order Comment: Speci men Type: BLOOD SPECIMENOrdering Facility: [facility] Address: [address] [id number] Result Comment: Tota l PSA test methodology used is the Electrochemiluminescence Immunoassay by [employer]. Total PSA values by differing methodologies cannot be interchanged. Performed By: #### 2 857-1 ####[facility] [id number] [facility] [id number] OF [facility] CNOVon 12-07-2022 CNOV Office Visit (UROLMN ) JM BARROW ([id number]) 1945 M Date Time Provider Department 12/07/22 3:00 PM MANNY MEZA UROVERNON During your visit today, we recorded the following information about you: Pulse Blood pressure Weight Height 76/minute 108/63 79.8 kg 1.829 m Ina Christianson MA 12/07/2022 2:59 PM Signed PATIENT PVR READING 0mL Manny Meza MD 12/07/2022 3:33 PM Signed PATIENT: Shashi Pushpa [id number] REFERRING MD: Ace Guzman NEW PATIENT VISIT [...] symptoms. Per Dr. Guzman note: Prostate cancer Corona 8, node positive with prior treatment including [...] PET. 11/17/2022 PSA 0.49 11/24/[address] [facility] [address] 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 Grimm - [place], [place] TONSILLECTOMY HX Medications Current Outpatient Medications [...] respiratory di (more content not included)... Normal [facility] URINALYSIS, REFLEX MICROSCOP ICon 12-07-2022 Bacteria LM.HPF (Urine sed) [#/Area] Few Abnormal None Seen [facility] Comment on above: Order Comment: Speci men Type: URINE SPECIMENOrdering Facility: [facility] Address: [address] [address] Performed By: #### L [id number] ####[facility] [id number] [place] [address] [place] Bilirubin Ql (U) Negative Normal Negative [facility] Comment on above: Order Comment: Speci men Type: URINE SPECIMENOrdering Facility: [facility] Address: [address] [place] [address] Performed By: #### L [id number] ####[facility] [id number] [place] [address] [place] Clarity (Unsp spec) Cloudy Abnormal Clear [facility] Comment on above: Order Comment: Speci men Type: URINE SPECIMENOrdering Facility: [facility] Address: [address] [place] [address] Performed By: #### L [id number] ####[facility] [id number] [place] [address] [place] [facility] Color (U) Yellow Normal Yellow [facility] Comment on above: Order Comment: Speci men Type: URINE SPECIMENOrdering Facility: [facility] Address: [address] [place] [address] Performed By: #### L [id number] ####[facility] [id number] [place] [address] [place] Epithelial cells LM.HPF (Urine sed) [#/Area] Few Normal [facility] Comment on above: Order Comment: Speci men Type: URINE SPECIMENOrdering Facility: [facility] Address: [address] [place], [place] [address] Performed By: #### L [id number] ####[facility] [id number] [place] [address] [place] Glucose Test strip (U) [Mass/Vol] Negative Normal Trace, Negative [facility] Comment on above: Order Comment: Speci men Type: URINE SPECIMENOrdering Facility: [facility] Address: [address] [place] [address] Performed By: #### L [id number] ####[facility] [id number] [place] [address] [place] Hemoglobin Ql (U) Negative Normal Negative, Trace [facility] Comment on above: Order Comment: Speci men Type: URINE SPECIMENOrdering Facility: [facility] Address: [address] [place] [address] Performed By: #### L [id number] ####[facility] [id number] [place] [address] [place] Hyaline casts (Urine sed) [#/Area] 1-3 /LPF Abnormal 0 /LPF [facility] Comment on above: Order Comment: Speci men Type: URINE SPECIMENOrdering Facility: [facility] Address: [address] [place] [address] Performed By: #### L [id number] ####[facility] [id number] [place] [address] [place] Ketones Ql (U) Negative Normal Negative, Trace [facility] Comment on above: Order Comment: Speci men Type: URINE SPECIMENOrdering Facility: [facility] Address: [address] [place], [place] [id number] Performed By: #### L [id number] ####[facility] [id number] [place] [address] [place] Leukocyte esterase Test strip Ql (U) 500 Akil/uL Abnormal Negative, 25 Akil/uL [facility] Comment on above: Order Comment: Speci men Type: URINE SPECIMENOrdering Facility: [facility] Address: [address] Performed By: #### L [id number] ####[facility] [id number] [place] [address] [place] Nitrite Ql (U) Negative Normal Negative [facility] Comment on above: Order Comment: Speci men Type: URINE SPECIMENOrdering Facility: [facility] Address: [address] [place] [address] Performed By: #### L [id number] ####[facility] [id number] [place] [address] [place] pH (U) 6.0 [pH] Normal 5.0-8.0 [facility] Comment on above: Order Comment: Speci men Type: URINE SPECIMENOrdering Facility: [facility] Address: [address] [place] [address] Performed By: #### L [id number] ####[facility] [id number] [place] [address] [place] Protein (U) [Mass/Vol] Trace Normal Trace, Negative [facility] Comment on above: Order Comment: Speci men Type: URINE SPECIMENOrdering Facility: [facility] Address: [address] [place] [address] Performed By: #### L [id number] ####[facility] [id number] [place] [address] [place] RBC LM.HPF (Urine sed) [#/Area] 3-5 /HPF Abnormal 0-3 /HPF [facility] Comment on above: Order Comment: Speci men Type: URINE SPECIMENOrdering Facility: [facility] Address: [address] [place] [address] Performed By: #### L [id number] ####[facility] [id number] [place] [address] [place] Specific gravity (U) [Rel density] 1.024 Normal 1.005-1.030 [facility] Comment on above: Order Comment: Speci men Type: URINE SPECIMENOrdering Facility: [facility] Address: [address] [address] Performed By: #### L [id number] ####[facility] [id number] [address] Urobilinogen Ql (U) Negative Normal Negative [facility] Comment on above: Order Comment: Speci men Type: URINE SPECIMENOrdering Facility: [facility] Address: [address] [place] [address] Performed By: #### L [id number] ####[facility] [id number] [address] [place] WBC LM.HPF (Urine sed) [#/Area] /[HPF] Abnormal 0-5 /HPF [facility] Comment on above: Order Comment: Speci men Type: URINE SPECIMENOrdering Facility: [facility] Address: [address] [place] [address] Performed By: #### L [id number] ####[facility] [id number] [address] [place] Bacteria LM.HPF (Urine sed) [#/Area] Few Abnormal None Seen /HPF [facility] Bilirubin Ql (U) Negative Negative [facility] Clarity (Unsp spec) Cloudy Abnormal Clear [facility] Color (U) Yellow Yellow [facility] Epithelial cells LM.HPF (Urine sed) [#/Area] Few [facility] Glucose Test strip (U) [Mass/Vol] Negative Trace, Negative [facility] Hemoglobin Ql (U) Negative Negative, Trace [facility] Hyaline casts (Urine sed) [#/Area] 1-3 /LPF Abnormal 0 /LPF [facility] Ketones Ql (U) Negative Negative, Trace [facility] Leukocyte esterase Test strip Ql (U) 500 Akil/uL Abnormal Negative, 25 Akil/uL [facility] Nitrite Ql (U) Negative Negative [facility] pH (U) 6.0 [pH] 5.0 - 8.0 [facility] Protein (U) [Mass/Vol] Trace Trace, Negative [facility] RBC LM.HPF (Urine sed) [#/Area] 3-5 /HPF Abnormal 0-3 /HPF [facility] Specific gravity (U) [Rel density] 1.024 1.005 - 1.030 [facility] Urobilinogen Ql (U) Negative Negative [facility] WBC LM.HPF (Urine sed) [#/Area] /[HPF] Abnormal 0-5 /HPF [facility] CNOVon 11-24-2022 CNOV Office Visit (RADTSA ) JM BARROW ([id number]) 1945 M Date Time Provider Department 11/24/22 1:30 PM Ace GUZMAN During your visit today, we recorded the following information about you: Temperature Pulse Respiration Blood pressure 97 degrees 63/minute 18/minute 111/70 Weight 80.2 kg Ace Guzman MD 11/24/2022 2:52 PM Signed Radiation [...] to pur (more content not included)... Normal [facility] Prostate specific Ag [Mass/Vol] 0.49 ng/mL Normal <2.60 [facility] Comment on above: Order Comment: Speci men Type: BLOOD SPECIMENOrdering Facility: [facility] Address: [address] [place] [phone] Result Comment: Anali barboza PSA test methodology used is the Electrochemiluminescence Immunoassay by [employer]. Total PSA values by differing methodologies cannot be interchanged. Performed By: #### 2 857-1 ####[facility] [id number] [facility] [id number] [address] [place] Office Visit (Cardiology)on 10-18-2022 [...] of your visit. Follow up in 2-3 [facility] Chief Complaint JM BARROW is being seen [...] 1 TABLET DAILY DIRECTED AT BEDTIME Dulcolax Hotchkiss Laxative 5 MG Oral Tablet Delayed ReleaseTAKE [...] Signs Recorded: 18Oct2022 10:13AMRecorded: 18Oct2022 09:54AM Systolic Gvtuupp84, RUE, Sitting Diastolic Grxvbcb66, RUE, Sitting Systolic Jallrlns71, RUE, Standing Diastolic Llkctsfb47, RUE, Standing Heart Rate Fgbjmsy03, R Radial Heart Rate Yncyczmf66, R Radial Heart Rate58, R Radial Swlrruui99, LUE, Sitting Qtmcoeloj02, LUE, Sitting Height6 ft Riwmnb741 lb BMI Lnskvwlsqj98.82 kg/m2 BSA Calculated2.05 Tobacco Usea) Yes Patient encouraged to stop using tobacco productsYes Falls Screening (more content not included)... Normal [employer] Tobacco Screening.on 023 Fall risk assessment a) No falls within the last year [facility] PollitoIngles DO Work Phone: Tobacco use status CP a) Yes [facility] PollitoIngles DO Work Phone: Tobacco Screening. Yes [facility] [employer] 600 DO Work Phone: CNOVSPon 09-22-2022 OVS Visit (SP) Office ([facility]) SUEJM GHOTRA ([id number]) 1945 M Date Time Provider Department 09/22/22 [...] CATARACT, INSERT LENS,EX Bilateral 06/[address] [facility], [place] TONSILLECTOMY HX FAMILY HISTORY: FAMILY HISTORY Problem [...] GI: Negati (more content not included)... Normal [facility] CBC W Auto Differential pane l (Bld)on 09-20-2022 Basophils (Bld) [#/Vol] 0.06 10*3/uL Normal <0.11 [facility] Comment on above: Order Comment: Speci men Type: BLOOD SPECIMENOrdering Facility: [facility] Address: [address] [place] [address] Performed By: #### 5 7021-8 ####[facility] [id number] [place] [address] Basophils/100 WBC (Bld) 0.9 % Normal [facility] Comment on above: Order Comment: Speci men Type: BLOOD SPECIMENOrdering Facility: [facility] Address: [address] [place] [address] Performed By: #### 5 7021-8 ####[facility] [id number] [place] [address] Differential cell count method Nom (Bld) Auto Normal [facility] Comment on above: Order Comment: Speci men Type: BLOOD SPECIMENOrdering Facility: [facility] Address: [address] [place] [address] Performed By: #### 5 7021-8 ####[facility] [id number] [place] [address] Eosinophils (Bld) [#/Vol] 0.46 10*3/uL High <0.46 [facility] Comment on above: Order Comment: Speci men Type: BLOOD SPECIMENOrdering Facility: [facility] Address: [address] [place] [address] Performed By: #### 5 7021-8 ####[facility] [id number] [place] [address] Eosinophils/100 WBC (Bld) 6.9 % Normal [facility] Comment on above: Order Comment: Speci men Type: BLOOD SPECIMENOrdering Facility: [facility] Address: [address] [address] Performed By: #### 5 7021-8 ####[facility] [id number] [place] [address] Erythrocyte distribution width (RBC) [Ratio] 12.3 % Normal 11.5-15.0 [facility] Comment on above: Order Comment: Speci men Type: BLOOD SPECIMENOrdering Facility: [facility] Address: [address] [address] Performed By: #### 5 7021-8 ####[facility] [id number] [place] [address] Hematocrit (Bld) [Volume fraction] 42.2 % Normal 39.0-51.0 [facility] Comment on above: Order Comment: Speci men Type: BLOOD SPECIMENOrdering Facility: [facility] Address: [address] [address] Performed By: #### 5 7021-8 ####[facility]IA [id number] [place] [address] Hemoglobin (Bld) [Mass/Vol] 14.4 g/dL Normal 13.0-17.0 [facility] Comment on above: Order Comment: Speci men Type: BLOOD SPECIMENOrdering Facility: [facility] Address: [address] [address] Performed By: #### 5 7021-8 ####[facility] [id number] [place] [address] Immature granulocytes (Bld) [#/Vol] 10*3/uL Normal <0.10 [facility] Comment on above: Order Comment: Speci men Type: BLOOD SPECIMENOrdering Facility: [facility] Address: [address] [address] Performed By: #### 5 7021-8 ####[facility]IA [id number] [place] [address] Immature granulocytes/100 WBC (Bld) 0.3 % Normal [facility] Comment on above: Order Comment: Speci men Type: BLOOD SPECIMENOrdering Facility: [facility] Address: [address] [place] [address] Performed By: #### 5 7021-8 ####[facility] [id number] [place] [address] Lymphocytes (Bld) [#/Vol] 1.95 10*3/uL Normal 1.00-4.00 [facility] Comment on above: Order Comment: Speci men Type: BLOOD SPECIMENOrdering Facility: [facility] Address: [address] [place] [address] Performed By: #### 5 7021-8 ####[facility] [id number] [place] [address] Lymphocytes/100 WBC (Bld) 29.2 % Normal [facility] Comment on above: Order Comment: Speci men Type: BLOOD SPECIMENOrdering Facility: [facility] Address: [address] [place] [address] Performed By: #### 5 7021-8 ####[facility]CLIA [id number] [place] [address] MCH (RBC) [Entitic mass] 31.7 pg Normal 26.0-34.0 [facility] Comment on above: Order Comment: Speci men Type: BLOOD SPECIMENOrdering Facility: [facility] Address: [address] [place] [address] Performed By: #### 5 7021-8 ####[facility] [id number] [place] [address] MCHC (RBC) [Mass/Vol] 34.1 g/dL Normal 30.5-36.0 [facility] Comment on above: Order Comment: Speci men Type: BLOOD SPECIMENOrdering Facility: [facility] Address: [address] [place] [address] Performed By: #### 5 7021-8 ####[facility]IA [id number] [place] [address] MCV (RBC) [Entitic vol] 93.0 fL Normal 80.0-100.0 [facility] Comment on above: Order Comment: Speci men Type: BLOOD SPECIMENOrdering Facility: [facility] Address: [address] [place] [address] Performed By: #### 5 7021-8 ####[facility] [id number] [place] [address] Monocytes (Bld) [#/Vol] 0.75 10*3/uL Normal <0.87 [facility] Comment on above: Order Comment: Speci men Type: BLOOD SPECIMENOrdering Facility: [facility] Address: [address] [address] Performed By: #### 5 7021-8 ####[facility]IA [id number] [place] [address] Monocytes/100 WBC (Bld) 11.2 % Normal [facility] Comment on above: Order Comment: Speci men Type: BLOOD SPECIMENOrdering Facility: [facility] Address: [address] [place] [address] Performed By: #### 5 7021-8 ####[facility]IA [id number] [place] [address] Neutrophils (Bld) [#/Vol] 3.44 10*3/uL Normal 1.45-7.50 [facility] [facility] Comment on above: Order Comment: Speci men Type: BLOOD SPECIMENOrdering Facility: [facility] Address: [address] [place] [address] Performed By: #### 5 7021-8 ####[facility] LABCLIA [id number] [place] [address] Neutrophils/100 WBC (Bld) 51.5 % Normal [facility] Comment on above: Order Comment: Speci men Type: BLOOD SPECIMENOrdering Facility: [facility] Address: [address] [place] [address] Performed By: #### 5 7021-8 ####[facility]NMART[facility] LABCLIA [id number] [place] [address] Nucleated RBC (Bld) [#/Vol] 10*3/uL Normal <0.01 [facility] Comment on above: Order Comment: Speci men Type: BLOOD SPECIMENOrdering Facility: [facility] Address: [address] [place] [address] Performed By: #### 5 7021-8 ####[facility]NMARTI [facility] LABIA [id number] [place] [address] Nucleated RBC/100 WBC (Bld) [Ratio] 0.0 /100 WBC Normal [facility] Comment on above: Order Comment: Speci men Type: BLOOD SPECIMENOrdering Facility: [facility] Address: [address] [place] [address] Performed By: #### 5 7021-8 ####[facility] LABCLIA [id number] [place] [address] Platelet mean volume (Bld) [Entitic vol] 9.4 fL Normal 9.0-12.7 [facility] Comment on above: Order Comment: Speci men Type: BLOOD SPECIMENOrdering Facility: [facility] Address: [address] [place] [address] Performed By: #### 5 7021-8 ####[facility] LABIA [id number] [place] [address] Platelets (Bld) [#/Vol] 236 10*3/uL Normal 150-400 [facility] Comment on above: Order Comment: Speci men Type: BLOOD SPECIMENOrdering Facility: [facility] Address: [address] [address] Performed By: #### 5 7021-8 ####[facility] LABCLIA [id number] [place] [address] RBC (Bld) [#/Vol] 4.54 10*6/uL Normal 4.20-6.00 [facility] Comment on above: Order Comment: Speci men Type: BLOOD SPECIMENOrdering Facility: [facility] Address: [address] [address] Performed By: #### 5 7021-8 ####[facility] LABIA [id number] [place] [address] WBC (Bld) [#/Vol] 6.68 10*3/uL Normal 3.70-11.00 [facility] Comment on above: Order Comment: Speci men Type: BLOOD SPECIMENOrdering Facility: [facility] Address: [address] [place] [address] Performed By: #### 5 7021-8 ####[facility] LABIA [id number] [place] [address] Comprehensive metabolic 2000 panelon 09-20-2022 Albumin [Mass/Vol] 4.4 g/dL Normal 3.9-4.9 [facility] Comment on above: Order Comment: Speci men Type: BLOOD SPECIMENOrdering Facility: [facility] Address: [address] [place] [address] Performed By: #### 2 4323-8 ####[facility] LABCLIA [id number] [place] [address] ALP [Catalytic activity/Vol] 59 U/L Normal 38-113 [facility] Comment on above: Order Comment: Speci men Type: BLOOD SPECIMENOrdering Facility: [facility] Address: [address] [place] [address] Performed By: #### 2 4323-8 ####[facility] LABCLIA [id number] [place] [address] ALT [Catalytic activity/Vol] 9 U/L Low 10-54 [facility] Comment on above: Order Comment: Speci men Type: BLOOD SPECIMENOrdering Facility: [facility] Address: [address] [address] Performed By: #### 2 4323-8 ####[facility] LABCLIA [id number] [place] [address] Anion gap [Moles/Vol] 6 mmol/L Low 9-18 [facility] Comment on above: Order Comment: Speci men Type: BLOOD SPECIMENOrdering Facility: [facility] Address: [address] [place] [address] Performed By: #### 2 4323-8 ####[facility] LABCLIA [id number] [place] [address] AST [Catalytic activity/Vol] 15 U/L Normal 14-40 [facility] Comment on above: Order Comment: Speci men Type: BLOOD SPECIMENOrdering Facility: [facility] Address: [address] [place] [address] Performed By: #### 2 4323-8 ####[facility] LABCLIA [id number] [place] [address] Bilirubin [Mass/Vol] 0.4 mg/dL Normal 0.2-1.3 [facility] Comment on above: Order Comment: Speci men Type: BLOOD SPECIMENOrdering Facility: [facility] Address: [address] [address] Performed By: #### 2 4323-8 ####[facility] LABCLIA [id number] [place] [address] Calcium [Mass/Vol] 11.0 mg/dL High 8.5-10.2 [facility] Comment on above: Order Comment: Speci men Type: BLOOD SPECIMENOrdering Facility: [facility] Address: [address] [address] Performed By: #### 2 4323-8 ####[facility] LABCLIA [id number] [place] [address] Chloride [Moles/Vol] 99 mmol/L Normal 97-105 [facility] Comment on above: Order Comment: Speci men Type: BLOOD SPECIMENOrdering Facility: [facility] Address: [address] [place] [address] Performed By: #### 2 4323-8 ####[facility] LABCLIA [id number] [place] [address] CO2 [Moles/Vol] 34 mmol/L High 22-30 [facility] Comment on above: Order Comment: Speci men Type: BLOOD SPECIMENOrdering Facility: [facility] Address: [address] [place] [address] Performed By: #### 2 4323-8 ####[facility] LABCLIA [id number] [place] [address] Creatinine [Mass/Vol] 0.94 mg/dL Normal 0.73-1.22 [facility] Comment on above: Order Comment: Speci men Type: BLOOD SPECIMENOrdering Facility: [facility] Address: [address] [place] [address] Performed By: #### 2 4323-8 ####[facility] LABCLIA [id number] [place] [address] ESTIMATED GLOMERULAR FILTRATION RATE 85 mL/min/1.73m??? Normal >=60 [facility] Comment on above: Order Comment: Speci men Type: BLOOD SPECIMENOrdering Facility: [facility] Address: [address] [place] [address] Result Comment: Jessica mated Glomerular Filtration Rate [...] actual GFR. Performed By: #### 2 4323-8 ####[facility] LABIA [id number] [place] [address] Glucose [Mass/Vol] 96 mg/dL Normal 74-99 [facility] Comment on above: Order Comment: Speci men Type: BLOOD SPECIMENOrdering Facility: [facility] Address: [address] [place] [address] Result Comment: The [place] [employer] (ADA) provides guidance for cutoff [...] Standards of Medical Care in Diabetes 2016, [place] [employer]. Diabetes Care. 2016.39(Suppl 1). Performed By: #### 2 4323-8 ####[facility] LABCLIA [id number] [place] [address] Potassium [Moles/Vol] 4.1 mmol/L Normal 3.7-5.1 [facility] Comment on above: Order Comment: Speci men Type: BLOOD SPECIMENOrdering Facility: [facility] Address: [address] [address] Performed By: #### 2 4323-8 ####[facility] LABCLIA [id number] [place] [address] Protein [Mass/Vol] 7.2 g/dL Normal 6.3-8.0 [facility] Comment on above: Order Comment: Isabeli men Type: BLOOD SPECIMENOrdering Facility: [facility] Address: [address] [place] [address] Performed By: #### 2 4323-8 ####[facility] LABCLIA [id number] [place] [address] Sodium [Moles/Vol] 139 mmol/L Normal 136-144 [facility] Comment on above: Order Comment: Speci men Type: BLOOD SPECIMENOrdering Facility: [facility] Address: [address] [place] [address] Performed By: #### 2 4323-8 ####[facility] LABCLIA [id number] [place] [id number] Urea nitrogen [Mass/Vol] 26 mg/dL High 9-24 [facility] Comment on above: Order Comment: Speci men Type: BLOOD SPECIMENOrdering Facility: [facility] Address: [address] [place] [address] Performed By: #### 2 4323-8 ####[facility] LABCLIA [id number] [place] [id number] [facility] Prostate specific Ag [Mass/Vol] 0.38 ng/mL Normal <2.60 [facility] Comment on above: Order Comment: Speci men Type: BLOOD SPECIMENOrdering Facility: [facility] Address: [address] [place] [address] Result Comment: Tota l PSA test methodology used is the Electrochemiluminescence Immunoassay by [employer]. Total PSA values by differing methodologies cannot be interchanged. Performed By: #### 2 857-1 ####[facility] LABCLIA [id number] [facility] [id number] [place] [address] [place] [address] angio abdomenon [address] angio abdomen [facility] [address] [place] [address] CT Scan Report Signed Patient: Jm Barrow JR MR#: [id number] : 1945 Acct:[id number] Age/Sex: 76 / M ADM Date: 09/13/22 Loc: CT Room: Type: [facility] Attending Dr: Baldo Gifford MD Copies to: [...] Hagan Jr., D.OAgatha09/13/2022 3:38 PM Dictation Location: [place] [address] Transcribed By: [facility] 09/13/22 1538 Dictated By: Yoel Hagan Jr, DO 09/13/22 153 Signed By: 09/13/22 1538 [facility] Cortisolon 09-13-2022 Cortisol 7.9 ug/dL [facility] Comment on above: Result Comment: Refe rence range: AM 6 - 24 ug/dl PM <10 ug/dl PERFORMED BY: [place] [id number] PATHOLOGIST LABOR AND DELIVERY REGISTERED NURSE GEORGINA XIAO M.D. Performed By: #### C ORT #### [place] [id number] [facility] No Panel Informationon 09-13 Normal -[facility] [address] DO Work Phone: 7.9\S\7.9 Normal -[facility] [address] DO Work Phone: Comment on above: Reference range: AM 6 - 24 ug/dl PM <10 ug/dlPERFORMED BY:[address] [id number] MEDICAL DIRECTORGEORGINA XIAO M.D. US carotid doppler BIon 08-14 US carotid doppler [facility] [place] [address] [place], [place] [id number] Ultrasound Report Signed Patient: Jm Barrow JR MR#: [id number] : 1945 Acct:[id number] Age/Sex: 76 / M ADM Date: 09/02/22 Loc: Room: Type: [facility] Attending Dr: Clarence Gregory MD Ordering Provider: [...] Clarence Gregory M.D.09/03/2022 11:15 AM Dictation Location: [facility] Tech: Barb Olson Transcribed By: KELLY 09/03/22 1115 Dictated By: Clarence Gregory MD 09/03/22 1114 Signed By: 09/03/22 1115 [facility] Office Visit (Cardiology)on 09-01-2022 Follow-up visit Diagnoses/Problems [...] Abdomen; Status:Hold For - Scheduling,Retrospective Authorization; Requested for:[id number]; Patient taking Metformin or Derivatives? : No Radiologist to Determine Optimal Study : Y What are the patient's signs and symptoms? : htn CT Angio Pelvis; Status:Hold For - Scheduling,Retrospective Authorization; Requested for:[id number]; Patient taking Metformin or Derivatives? : No [...] we can help. You may also call 4-166-LAATSolulinkNOW for free resources and assistance.; Status:Complete - [...] I will today evaluate his possibility of Leighann's disease. In the future we may consider [...] TABLET TWICE (more content not included)... Normal [employer] Tobacco Screening.on 023 Adult depression screening assessment No -[facility] [address] DO Work Phone: Fall risk assessment a) No falls within the last year [facility] [address] DO Work Phone: Tobacco use status CPHS a) Yes [facility] [address] DO Work Phone: Tobacco Screening. Yes [facility] [address] DO Work Phone: CNOVon 08-18-2022 CNOV Office Visit (RADTSA ) JM BARROW ([id number]) 1945 M Date Time Provider Department 08/18/22 [...] ablative therapy, (more content not included)... Normal [facility] 08-15-2022 [facility] HNO ID: [id number] Author: Tabatha Hernandez, RT(R) Service: Radiology Author Type: Technologist Type: Allied [...] Body: Prostate PERIPHERAL IV DATA: Inpatient: see [facility] documentation SIGNED BY: RT Alyssia(R) August 15, 2022 1:43 PM [facility] MRI PROSTATE WO/W IVCONon MRI PROSTATE WO/W IVCON * * *Final Report* * * DATE OF EXAM: Aug 15 2022 1:44PM [facility] 0751 - MRI PROSTATE WO/W IVCON / PROCEDURE REASON: Cancer of prostate w/med recur risk (T2b-c or Corona 7 or PSA 10-20) ([facility]) * * * * Physician Interpretation * [...] volume were obtained using a semi-automated software (Odojo). CONTRAST: IV: 16 cc of Dotarem. COMPARISON: [...] of suspicion for clinically significant prostate cancer (Corona score 3 + 4 or higher). PI-RADS v2.1 Assessment Categories: PI-RADS 1: Clinically significant cancer is highly unlikely PI-RADS 2: Clinically significant cancer is unlikely PI-RADS 3: Clinically significant cancer is equivocal PI-RADS 4: Clinically significant cancer is likely PI-RADS 5: Clinically significant cancer is highly likely Portfolio Manager: IVA Transcribe Date/Time: Aug 15 2022 2:35P Dictated by : SARAI AYERS, DO This examination was interpreted and the report reviewed and electronically signed by: CINTIA SOLORZANO MD on Aug 15 2022 5:43PM EST [id number] Normal [facility] NURSING PROGon 08-15-2022 NURSING PROG HNO ID: [id number] Author: Keila Hsu RN Service: PICC Team [...] August 15, 2022 TIME: 12:43 PM Normal [facility] CBC AUTO DIFFon 08-01-2022 BASO # 0.1 103/ul Normal 0.0-0.1 [facility] Comment on above: Performed By: #### C PHYLLIS ONOFREDM #### [facility] [address] [place] [address] Dr. Samantha Samuels Basophils/100 WBC (Bld) 1.0 % Normal 0.2-2.0 [facility] Comment on above: Performed By: #### C JEMIMA CMADM #### [facility] [address] [place] [address] Dr. Samantha Samuels EO # 0.5 103/ul Normal 0.0-0.7 [facility] Comment on above: Performed By: #### C JEMIMA CMADM #### [facility] [address] [place] [address] Dr. Samantha Samuels Eosinophils/100 WBC (Bld) 7.9 % Critically high 0.9-7.0 [facility] Comment on above: Performed By: #### C JEMIMA, CMADM #### [facility] [address] [place] [address] Dr. Samantha Samuels Erythrocyte distribution width (RBC) [Ratio] 12.8 % Normal 11.0-15.0 [facility] Comment on above: Performed By: #### C SORAIDA ONOFRE #### [facility] [address] [place] [address] Dr. Samantha Samuels Hematocrit (Bld) [Volume fraction] 40.1 % Critically low 42.0-54.0 [facility] Comment on above: Performed By: #### C JEMIMA, PHYLLISDM #### [facility] [address] [place] [address] Dr. Samantha Samuels Hemoglobin (Bld) [Mass/Vol] 13.9 g/dL Critically low 14.0-18.0 [facility] Comment on above: Performed By: #### C SORAIDA ONOFRE #### [facility] [address] [place] [address] Dr. Samantha Samuels IG # 0.01 10e3/ul Normal 0.00-0.03 [facility] Comment on above: Performed By: #### C PHYLLIS ONOFREDM #### [facility] [address] [place] [address] Dr. Samantha Samuels IG % 0.2 % Normal 0.0-0.5 [facility] Comment on above: Performed By: #### C PHYLLIS ONOFREDM #### [facility] [address] [place] [address] Dr. Samantha Samuels LYMPH # 1.8 103/ul Normal 1.2-3.8 [facility] Comment on above: Performed By: #### C SORAIDA ONOFRE #### [facility] [address] [place] [address] Dr. Samantha Samuels Lymphocytes/100 WBC (Bld) 28.8 % Normal 20.5-60.0 [facility] Comment on above: Performed By: #### C JEMIMA, SORAIDA #### [facility] [address] [place] [address] Dr. Samantha Samuels MANUAL DIFF REQ NO Normal [facility] Comment on above: Performed By: #### C SORAIDA ONOFRE #### [facility] [address] [place] [address] Dr. Samantha Samuels MCH (RBC) [Entitic mass] 32.3 pg Normal 25.9-34.0 [facility] Comment on above: Performed By: #### C JEMIMA, CMADM #### [facility] [address] [place] [address] Dr. Samantha Samuels MCHC (RBC) [Mass/Vol] 34.7 g/dL Normal 29.9-35.2 [facility] Comment on above: Performed By: #### C JEMIMA, CMADM #### [facility] [address] [place] [address] Dr. Samantha Samuels MCV (RBC) [Entitic vol] 93.0 fL Normal 80.0-94.0 [facility] Comment on above: Performed By: #### C JEMIMA, CMADM #### [facility] [address] [place] [address] Dr. Samantha Samuels MONO # 0.6 103/ul Normal 0.3-0.8 [facility] Comment on above: Performed By: #### C JEMIMA, CMADM #### [facility] [address] [place] [address] Dr. Samantha Samuels Monocytes/100 WBC (Bld) 9.7 % Normal 1.7-12.0 [facility] Comment on above: Performed By: #### C JEMIMA, CMADM #### [facility] [address] [place] [address] Dr. Samantha Samuels NEUT # 3.3 103/ul Normal 1.4-6.5 [facility] Comment on above: Performed By: #### C JEMIMA, CMADM #### [facility] [address] [place] [address] Dr. Samantha Samuels Neutrophils/100 WBC (Bld) 52.4 % Normal 43.0-75.0 [facility] Comment on above: Performed By: #### C JEMIMA, CMADM #### [facility] [address] [place] [address] Dr. Samantha Samuels Platelet mean volume (Bld) [Entitic vol] 9.4 fL Critically low 9.5-13.5 [facility] Comment on above: Performed By: #### C MP, CMADM #### [facility] [address] [place], [place] [address] Dr. Samantha Samuels PLT 227 103/ul Normal 150-450 [facility] Comment on above: Performed By: #### C MP, CMADM #### [facility] [address] [place], [place] [address] Dr. Samantha Samuels RBC 4.31 106/ul Critically low 4.70-6.10 [facility] Comment on above: Performed By: #### C MP, CMADM #### [facility] [address] [place], [place] [address] Dr. Samantha Samuels WBC 6.3 103/ul Normal 4.0-11.0 [facility] Comment on above: Performed By: #### C MP, CMADM #### [facility] [address] [place] [address] Dr. Samantha Samuels Covid-19 PCR ([facility]on 07-14 SARS-CoV-2 (COVID-19) RNA DELIA+probe Ql (Unsp spec) Not detected Normal NOT DETECTED [facility] Comment on above: Result Comment: When [...] for this test is supported by the [place] of Health and Human Service's declaration that [...] longer be used). Performed By: #### C VDTBH #### [facility] [address] [place] [address] Dr. Samantha Samuels PROF 14(COMP METB)on 023 Albumin [Mass/Vol] 3.8 g/dL Normal 3.4-5.0 [facility] Comment on above: Performed By: #### C JEMIMA, SORAIDA #### [facility] [address] [place] [address] [address] Samantha Samuels Albumin/Globulin [Mass ratio] 1.2 {ratio} Normal [facility] Comment on above: Performed By: #### C JEMIMA, PHYLLISDM #### [facility] [address] [place] [address] [address] Samantha Samuels ALP [Catalytic activity/Vol] 73 U/L Normal 46-116 [facility] Comment on above: Performed By: #### C JEMIMA, SORAIDA #### [facility] [address] [place] [address] [address] Samantha Samuels ALT [Catalytic activity/Vol] 16 U/L Normal 16-63 [facility] Comment on above: Performed By: #### C JEMIMA, SORAIDA #### [facility] [address] [place] [address] [address] Samantha Samuels Anion gap [Moles/Vol] 9.0 mmol/L Normal [facility] Comment on above: Performed By: #### C JEMIMA, SORAIDA #### [facility] [address] [place] [address] [address] Samantha Samuels AST [Catalytic activity/Vol] 18 U/L Normal 15-37 [facility] Comment on above: Performed By: #### C JEMIMA, PHYLLISDM #### [facility] [address] [place] [address] [address] Samantha Samuels Bilirubin [Mass/Vol] 0.4 mg/dL Normal 0.2-1.0 [facility] Comment on above: Performed By: #### C JEMIMA, SORAIDA #### [facility] [address] [place] [address] [address] Samantha Samuels Calcium [Mass/Vol] 9.5 mg/dL Normal 8.5-10.1 [facility] Comment on above: Performed By: #### C JEMIMA, SORAIDA #### [facility] [address] [place] [address] [address] Samantha Samuels Chloride [Moles/Vol] 106 mmol/L Normal 98-107 [facility] Comment on above: Performed By: #### C JEMIMA, CMADM #### [facility] [address] [place] [address] [address] Samantha Samuels CO2 [Moles/Vol] 31.1 mmol/L Normal 21.0-32.0 [facility] Comment on above: Performed By: #### C JEMIMA, CMADM #### [facility] [address] [place] [address] [address] Samantha Samuels Creatinine [Mass/Vol] 0.83 mg/dL Normal 0.70-1.30 [facility] Comment on above: Performed By: #### C JEMIMA, CMADM #### [facility] [address] [place] [address] [address] Samantha Samuels EGFR-AF MONEGASQUE >60 Normal >=60 [facility] Comment on above: Performed By: #### C JEMIMA, CMADM #### [facility] [address] [place] [address] [address] Samantha Samuels EGFR-NON AF MONEGASQUE >60 Normal >=60 [facility] Comment on above: Performed By: #### C JEMIMA, CMADM #### [facility] [address] [place] [address] [address] Samantha Samuels Globulin (S) [Mass/Vol] 3.2 g/dL Normal [facility] Comment on above: Performed By: #### C JEMIMA, CMADM #### [facility] [address] [place] [address] [address] Samantha Samuels Glucose [Mass/Vol] 100 mg/dL Normal 74-106 [facility] Comment on above: Performed By: #### C JEMIMA, CMADM #### [facility] [address] [place] [address] [address] Samantha Samuels Potassium [Moles/Vol] 4.1 mmol/L Normal 3.5-5.1 [facility] Comment on above: Performed By: #### C JEMIMA, CMADM #### [facility] [address] [place] [address] [address] Samantha Samuels Protein [Mass/Vol] 7.0 g/dL Normal 6.4-8.2 [facility] Comment on above: Performed By: #### C JEMIMA, CMADM #### [facility] [address] [place] [address] Dr. Samantha Samuels Sodium [Moles/Vol] 142 mmol/L Normal 136-145 [facility] Comment on above: Performed By: #### C JEMIMA, CMADM #### [facility] [address] [place] [address] Dr. Samantha Samuels Urea nitrogen [Mass/Vol] 21.0 mg/dL Critically high 7.0-18.0 [facility] Comment on above: Performed By: #### C JEMIMA, CMADM #### [facility] [address] [place] [address] Dr. Samantha Samuels Urea nitrogen/Creatinin e [Mass ratio] 25.3 mg/mg Normal [facility] Comment on above: Performed By: #### C JEMIMA, CMADM #### [facility] [address] [place] [address] Dr. Samantha Samuels CARDIAC DAWNA ADMITon 023 CK [Catalytic activity/Vol] 101 U/L Normal 39-308 [facility] Comment on above: Performed By: #### C JEMIMA, CMADM #### [facility] [address] [place] [address] Dr. Samantha Samuels CK.MB [Mass/Vol] 2.00 ng/mL Normal <=3.60 [facility] Comment on above: Performed By: #### C JEMIMA, CMADM #### [facility] [address] [place] [address] Dr. Samantha Samuels HSTROP 5.3 pg/mL Normal 4.0-76.1 [facility] Comment on above: Result Comment: CUT- OFF POINTS HAVE BEEN ESTABLISHED BASED ON THE FOURTH UNIVERSAL DEFINITIONS OF MYOCARDIAL INFARCTION. THE UPPER REFERENCE LIMIT (URL) OF TROPONIN, DEFINED THE 99TH PERCENTILE OF cTnI DISTRIBUTION IN A REFERENCE POPULATION, HAS BEEN CONFIRMED THE DECISION THRESHOLD FOR [place] DIAGNOSIS. Performed By: #### C JEMIMA, CMADM #### [facility] [address] [address] [address] Samantha Samuels JOSE 54 ng/mL Normal 16-96 [facility] Comment on above: Performed By: #### C MP, CMADM #### [facility] [address] [address] [address] Samantha Samuels CBC AUTO DIFFon 07-31-2022 BASO # 0.1 103/ul Normal 0.0-0.1 [facility] Comment on above: Performed By: #### C MP, CMADM #### [facility] [address] [address] [address] Samantha Samuels Basophils/100 WBC (Bld) 1.0 % Normal 0.2-2.0 [facility] Comment on above: Performed By: #### C MP, CMADM #### [facility] [address] [place] [address] Dr. Samantha Samuels EO # 0.6 103/ul Normal 0.0-0.7 [facility] Comment on above: Performed By: #### C MP, CMADM #### [facility] [address] [address] [address] Samantha Samuels Eosinophils/100 WBC (Bld) 9.4 % Critically high 0.9-7.0 [facility] Comment on above: Performed By: #### C MP, CMADM #### [facility] [address] [address] [address] Samantha Samuels Erythrocyte distribution width (RBC) [Ratio] 12.7 % Normal 11.0-15.0 [facility] Comment on above: Performed By: #### C MP, CMADM #### [facility] [address] [place] [address] Dr. Samantha Samuels Hematocrit (Bld) [Volume fraction] 39.7 % Critically low 42.0-54.0 [facility] Comment on above: Performed By: #### C MP, CMADM #### [facility] [address] [address] [address] Samantha Samuels Hemoglobin (Bld) [Mass/Vol] 13.7 g/dL Critically low 14.0-18.0 [facility] Comment on above: Performed By: #### C MP, CMADM #### [facility] [address] [place] [address] Dr. Samantha Samuels IG # 0.01 10e3/ul Normal 0.00-0.03 [facility] Comment on above: Performed By: #### C MP, CMADM #### [facility] [address] [place] [address] Dr. Samantha Samuels IG % 0.2 % Normal 0.0-0.5 [facility] Comment on above: Performed By: #### C MP, CMADM #### [facility] [address] [place] [address] Dr. Samantha Samuels LYMPH # 2.2 103/ul Normal 1.2-3.8 [facility] Comment on above: Performed By: #### C MP, CMADM #### [facility] [address] [place] [address] Dr. Samantha Samuels Lymphocytes/100 WBC (Bld) 36.8 % Normal 20.5-60.0 [facility] Comment on above: Performed By: #### C MP, CMADM #### [facility] [address] [place] [address] Dr. Samantha Samuels MANUAL DIFF REQ NO Normal [facility] Comment on above: Performed By: #### C MP, CMADM #### [facility] [address] [place] [address] Dr. Samantha Samuels MCH (RBC) [Entitic mass] 32.2 pg Normal 25.9-34.0 [facility] Comment on above: Performed By: #### C MP, CMADM #### [facility] [address] [place] [address] Dr. Samantha Samuels MCHC (RBC) [Mass/Vol] 34.5 g/dL Normal 29.9-35.2 [facility] Comment on above: Performed By: #### C MP, CMADM #### [facility] [address] [place] [address] Dr. Samantha Samuels MCV (RBC) [Entitic vol] 93.2 fL Normal 80.0-94.0 [facility] Comment on above: Performed By: #### C JEMIMA, PHYLLISDM #### [facility] [address] [address] [address] Samantha Samuels MONO # 0.6 103/ul Normal 0.3-0.8 [facility] Comment on above: Performed By: #### C JEMIMA, PHYLLISDM #### [facility] [address] [address] [address] Samantha Samuels Monocytes/100 WBC (Bld) 10.9 % Normal 1.7-12.0 [facility] Comment on above: Performed By: #### C JEMIMA, PHYLLISDM #### [facility] [address] [place] [address] Dr. Samantha Samuels NEUT # 2.5 103/ul Normal 1.4-6.5 [facility] Comment on above: Performed By: #### C PHYLLIS ONOFREDM #### [facility] [address] [place] [address] Dr. Samantha Samuels Neutrophils/100 WBC (Bld) 41.7 % Critically low 43.0-75.0 [facility] Comment on above: Performed By: #### C JEMIMA, SORAIDA #### [facility] [address] [place] [address] Dr. Samantha Samuels Platelet mean volume (Bld) [Entitic vol] 9.3 fL Critically low 9.5-13.5 [facility] Comment on above: Performed By: #### C JEMIMA, PHYLLISDM #### [facility] [address] [place] [address] Dr. Samantha Samuels PLT 225 103/ul Normal 150-450 [facility] Comment on above: Performed By: #### C JEMIMA, PHYLLISDM #### [facility] [address] [place] [address] Dr. Samantha Samuels RBC 4.26 106/ul Critically low 4.70-6.10 [facility] Comment on above: Performed By: #### C JEMIMA, PHYLLISDM #### [facility] [address] [address] [address] Samantha Samuels WBC 5.9 103/ul Normal 4.0-11.0 [facility] Comment on above: Performed By: #### C SORAIDA ONOFRE #### [facility] [address] [place] [address] HEAD WO CONon [...] RONDA ALBRIGHT Date: 2022-07-31 20:08 Normal [facility] PROF 14(COMP METB)on 023 Albumin [Mass/Vol] 3.8 g/dL Normal 3.4-5.0 [facility] Comment on above: Performed By: #### C SORAIDA ONOFRE #### [facility] [address] [place] [address] Dr. Samantha Samuels Albumin/Globulin [Mass ratio] 1.2 {ratio} Normal [facility] Comment on above: Performed By: #### C SORAIDA ONOFRE #### [facility] [address] [place] [address] Dr. Samantha Samuels ALP [Catalytic activity/Vol] 61 U/L Normal 46-116 [facility] Comment on above: Performed By: #### C JEMIMA CMADM #### [facility] [address] [address] [address] Samantha Samuels ALT [Catalytic activity/Vol] 18 U/L Normal 16-63 [facility] Comment on above: Performed By: #### C MP, CMADM #### [facility] [address] [address] [address] Samantha Samuels Anion gap [Moles/Vol] 8.0 mmol/L Normal [facility] Comment on above: Performed By: #### C MP, CMADM #### [facility] [address] [address] [address] Samantha Samuels AST [Catalytic activity/Vol] 18 U/L Normal 15-37 [facility] Comment on above: Performed By: #### C MP, CMADM #### [facility] [address] [place] [address] Dr. Samantha Samuels Bilirubin [Mass/Vol] 0.4 mg/dL Normal 0.2-1.0 [facility] Comment on above: Performed By: #### C JEMIMA, CMADM #### [facility] [address] [place] [address] Dr. Samantha Samuels Calcium [Mass/Vol] 9.3 mg/dL Normal 8.5-10.1 [facility] Comment on above: Performed By: #### C JEMIMA, CMADM #### [facility] [address] [address] [address] Samantha Samuels Chloride [Moles/Vol] 105 mmol/L Normal 98-107 [facility] Comment on above: Performed By: #### C MP, CMADM #### [facility] [address] [address] [address] Samantha Samuels CO2 [Moles/Vol] 33.2 mmol/L Critically high 21.0-32.0 [facility] Comment on above: Performed By: #### C MP, CMADM #### [facility] [address] [address] [address] Samantha Samuels Creatinine [Mass/Vol] 0.74 mg/dL Normal 0.70-1.30 [facility] Comment on above: Performed By: #### C MP, CMADM #### [facility] [address] [address] [address] Samantha Samuels EGFR-AF MONEGASQUE >60 Normal >=60 [facility] Comment on above: Performed By: #### C MP, CMADM #### [facility] [address] [address] [address] Samantha Samuels EGFR-NON AF MONEGASQUE >60 Normal >=60 [facility] Comment on above: Performed By: #### C MP, CMADM #### [facility] [address] [address] [address] Samantha Samuels Globulin (S) [Mass/Vol] 3.2 g/dL Normal [facility] Comment on above: Performed By: #### C MP, CMADM #### [facility] [address] [address] [address] Samantha Samuels Glucose [Mass/Vol] 90 mg/dL Normal 74-106 [facility] Comment on above: Performed By: #### C MP, CMADM #### [facility] [address] [address] [address] Samantha Samuels Potassium [Moles/Vol] 4.2 mmol/L Normal 3.5-5.1 [facility] Comment on above: Performed By: #### C MP, CMADM #### [facility] [address] [address] [address] Samantha Samuels Protein [Mass/Vol] 7.0 g/dL Normal 6.4-8.2 [facility] Comment on above: Performed By: #### C MP, CMADM #### [facility] [address] [address] [address] Samantha Samuels Sodium [Moles/Vol] 142 mmol/L Normal 136-145 [facility] Comment on above: Performed By: #### C MP, CMADM #### [facility] [address] [address] [address] Samantha Samuels Urea nitrogen [Mass/Vol] 18.0 mg/dL Normal 7.0-18.0 [facility] Comment on above: Performed By: #### C MP, CMADM #### [facility] [address] [place], [place] [address] Dr. Samantha Samuels Urea nitrogen/Creatinin e [Mass ratio] 24.3 mg/mg Normal [facility] Comment on above: Performed By: #### C MP, CMADM #### [facility] [address] [place], [place] [address] Dr. Samantha Spangler 07-25-2022 CNPN Telephone (HEMASA) JM BARROW ([id number]) 1945 M Date Time Provider Department 07/25/22 KIERA ANGELO During your visit today, we recorded the following information about you: Kiera Angelo RN 07/25/2022 2:05 PM Signed Pt calls stating he can't take the xtandi anymore. States his blood pressure has been elevated and he went to [facility] this past week for that. Pt states he was started on metoprolol and on other med that he can't remember the name of. . Barbara: please get records BRM: please advise HITESH Casillas MD 07/25/2022 2:42 PM Signed Okay to hold enzalutamide for now. When he returns we will discuss other options. Thanks, B Ronny Grimm RN 07/25/2022 4:03 PM Signed Patient [...] Ema Dale RN 07/28/2022 2:59 PM Signed 's recommendations left on pt's personalized voicemail. Advised he call w/ any further questions. Umer Dale RN Allergies As of Date: 07/25/2022 Noted Allergy Reaction CHLORHEXIDINE 05/21/2013 2 - Rash hibaclens [Other] 06/02/2011 2 - Rash Date Reviewed: 07/18/2022 Reviewed by: Lola Allen OD - Fully Assessed Reason for Visit: Care Coordination [3492] Cmt: Medication update Prescriptions as of 07/28/2022 [...] Encounter Status:Closed by RINA GRIMM on 07/25/22 [facility] Crys 07-13-2022 PRATIMA Telephone ([place]) PERCYJM Dean ([id number]) 1945 M Date Time Provider Department 07/13/22 DARLENE YOUNG During your visit today, we recorded the following information about you: Darlene Young, [facility] 07/13/2022 12:42 PM Signed I spoke with [...] Status:Closed by UMER DALE on 07/13/22 Normal [facility] CBC W Auto Differential pane l (Bld)on 07-07-2022 Basophils (Bld) [#/Vol] 0.03 10*3/uL Normal <0.11 [facility] Comment on above: Order Comment: Speci men Type: BLOOD SPECIMENOrdering Facility: [facility] Address: [address] [place] [address] Performed By: #### 5 7021-8 ####[facility] [id number] [place] [address] Basophils/100 WBC (Bld) 0.4 % Normal [facility] Comment on above: Order Comment: Speci men Type: BLOOD SPECIMENOrdering Facility: [facility] Address: [address] [place] [address] Performed By: #### 5 7021-8 ####[facility] [id number] [place] [address] Differential cell count method Nom (Bld) Auto Normal [facility] Comment on above: Order Comment: Speci men Type: BLOOD SPECIMENOrdering Facility: [facility] Address: [address] [place] [address] Performed By: #### 5 7021-8 ####[facility] [id number] [place] [address] Eosinophils (Bld) [#/Vol] 0.42 10*3/uL Normal <0.46 [facility] Comment on above: Order Comment: Speci men Type: BLOOD SPECIMENOrdering Facility: [facility] Address: [address] [place] [address] Performed By: #### 5 7021-8 ####[facility] [id number] [place] [address] Eosinophils/100 WBC (Bld) 5.9 % Normal [facility] Comment on above: Order Comment: Speci men Type: BLOOD SPECIMENOrdering Facility: [facility] Address: [address] [place] [address] Performed By: #### 5 7021-8 ####[facility] [id number] [place] [address] Erythrocyte distribution width (RBC) [Ratio] 12.8 % Normal 11.5-15.0 [facility] Comment on above: Order Comment: Speci men Type: BLOOD SPECIMENOrdering Facility: [facility] Address: [address] [place] [address] Performed By: #### 5 7021-8 ####[facility] [id number] [place] [address] Hematocrit (Bld) [Volume fraction] 44.0 % Normal 39.0-51.0 [facility] Comment on above: Order Comment: Speci men Type: BLOOD SPECIMENOrdering Facility: [facility] Address: [address] [place] [address] Performed By: #### 5 7021-8 ####[facility] [id number] [place] [address] Hemoglobin (Bld) [Mass/Vol] 14.9 g/dL Normal 13.0-17.0 [facility] Comment on above: Order Comment: Speci men Type: BLOOD SPECIMENOrdering Facility: [facility] Address: [address] [place] [address] Performed By: #### 5 7021-8 ####[facility] [id number] [place] [address] Immature granulocytes (Bld) [#/Vol] 0.03 10*3/uL Normal <0.10 [facility] Comment on above: Order Comment: Speci men Type: BLOOD SPECIMENOrdering Facility: [facility] Address: [address] [address] Performed By: #### 5 7021-8 ####[facility] [id number] [place] [address] Immature granulocytes/100 WBC (Bld) 0.4 % Normal [facility] Comment on above: Order Comment: Speci men Type: BLOOD SPECIMENOrdering Facility: [facility] Address: [address] [place] [address] Performed By: #### 5 7021-8 ####[facility] [id number] [place] [address] Lymphocytes (Bld) [#/Vol] 1.87 10*3/uL Normal 1.00-4.00 [facility] Comment on above: Order Comment: Speci men Type: BLOOD SPECIMENOrdering Facility: [facility] Address: [address] [place] [address] Performed By: #### 5 7021-8 ####[facility] [id number] [place] [address] Lymphocytes/100 WBC (Bld) 26.1 % Normal [facility] Comment on above: Order Comment: Speci men Type: BLOOD SPECIMENOrdering Facility: [facility] Address: [address] [place] [address] Performed By: #### 5 7021-8 ####[facility]CL[facility] [id number] [place] [address] MCH (RBC) [Entitic mass] 31.6 pg Normal 26.0-34.0 [facility] Comment on above: Order Comment: Speci men Type: BLOOD SPECIMENOrdering Facility: [facility] Address: [address] [place] [address] Performed By: #### 5 7021-8 ####[facility] [id number] [place] [address] MCHC (RBC) [Mass/Vol] 33.9 g/dL Normal 30.5-36.0 [facility] Comment on above: Order Comment: Speci men Type: BLOOD SPECIMENOrdering Facility: [facility] Address: [address] [place] [address] Performed By: #### 5 7021-8 ####[facility] [id number] [place] [address] MCV (RBC) [Entitic vol] 93.4 fL Normal 80.0-100.0 [facility] Comment on above: Order Comment: Speci men Type: BLOOD SPECIMENOrdering Facility: [facility] Address: [address] [place] [address] Performed By: #### 5 7021-8 ####[facility]CL[facility] [id number] [place] [address] Monocytes (Bld) [#/Vol] 0.73 10*3/uL Normal <0.87 [facility] Comment on above: Order Comment: Speci men Type: BLOOD SPECIMENOrdering Facility: [facility] Address: [address] [place] [address] Performed By: #### 5 7021-8 ####[facility] [id number] [place] [address] Monocytes/100 WBC (Bld) 10.2 % Normal [facility] Comment on above: Order Comment: Speci men Type: BLOOD SPECIMENOrdering Facility: [facility] Address: [address] [place] [address] Performed By: #### 5 7021-8 ####[facility] LABIA [id number] [place] [address] Neutrophils (Bld) [#/Vol] 4.09 10*3/uL Normal 1.45-7.50 [facility] Comment on above: Order Comment: Speci men Type: BLOOD SPECIMENOrdering Facility: [facility] Address: [address] [place] [address] Performed By: #### 5 7021-8 ####[facility] [id number] [place] [address] Neutrophils/100 WBC (Bld) 57.0 % Normal [facility] Comment on above: Order Comment: Speci men Type: BLOOD SPECIMENOrdering Facility: [facility] Address: [address] [place] [address] Performed By: #### 5 7021-8 ####[facility]CLIA [id number] [place] [address] Nucleated RBC (Bld) [#/Vol] 10*3/uL Normal <0.01 [facility] Comment on above: Order Comment: Speci men Type: BLOOD SPECIMENOrdering Facility: [facility] Address: [address] [place] [address] Performed By: #### 5 7021-8 ####[facility]CLIA [id number] [place] [address] Nucleated RBC/100 WBC (Bld) [Ratio] 0.0 /100 WBC Normal [facility] Comment on above: Order Comment: Speci men Type: BLOOD SPECIMENOrdering Facility: [facility] Address: [address] [place] [address] Performed By: #### 5 7021-8 ####[facility]CLIA [id number] [place] [address] Platelet mean volume (Bld) [Entitic vol] 9.3 fL Normal 9.0-12.7 [facility] Comment on above: Order Comment: Speci men Type: BLOOD SPECIMENOrdering Facility: [facility] Address: [address] [place], [place] [id number] Performed By: #### 5 7021-8 ####[facility]CLIA [id number] [place] [address] Platelets (Bld) [#/Vol] 230 10*3/uL Normal 150-400 [facility] Comment on above: Order Comment: Speci men Type: BLOOD SPECIMENOrdering Facility: [facility] Address: [address] [place] [address] Performed By: #### 5 7021-8 ####[facility] LABIA [id number] [place] [address] RBC (Bld) [#/Vol] 4.71 10*6/uL Normal 4.20-6.00 [facility] Comment on above: Order Comment: Speci men Type: BLOOD SPECIMENOrdering Facility: [facility] Address: [address] [place] [address] Performed By: #### 5 7021-8 ####[facility] [id number] [place] [address] WBC (Bld) [#/Vol] 7.17 10*3/uL Normal 3.70-11.00 [facility] Comment on above: Order Comment: Speci men Type: BLOOD SPECIMENOrdering Facility: [facility] Address: [address] [place] [address] Performed By: #### 5 7021-8 ####[facility] [id number] [place] [address] CNOVSPon 07-07-2022 OVS Visit (SP) Office ([facility]) JM BARROW ([id number]) 1945 M Date Time Provider Department 07/07/22 [...] CATARACT, INSERT LENS,EX Bilateral 06/2019 Dr. Grimm [place], [place] TONSILLECTOMY HX FAMILY HISTORY: FAMILY HISTORY [...] nutrition, abdominal (more content not included)... Normal [facility] Comprehensive metabolic 2000 panelon 07-07-2022 Albumin [Mass/Vol] 4.4 g/dL Normal 3.9-4.9 [facility] Comment on above: Order Comment: Speci men Type: BLOOD SPECIMENOrdering Facility: [facility] Address: [address] [place] [address] Performed By: #### 2 432-8 ####[facility]CLIA [id number] [place] [address] ALP [Catalytic activity/Vol] 69 U/L Normal 38-113 [facility] Comment on above: Order Comment: Speci men Type: BLOOD SPECIMENOrdering Facility: [facility] Address: [address] [address] Performed By: #### 2 432-8 ####[facility]CLIA [id number] [place] [address] ALT [Catalytic activity/Vol] 13 U/L Normal 10-54 [facility] Comment on above: Order Comment: Speci men Type: BLOOD SPECIMENOrdering Facility: [facility] Address: [address] [address] Performed By: #### 2 432-8 ####[facility]CLIA [id number] [place] [address] Anion gap [Moles/Vol] 7 mmol/L Low 9-18 [facility] Comment on above: Order Comment: Speci men Type: BLOOD SPECIMENOrdering Facility: [facility] Address: [address] [address] Performed By: #### 2 4323-8 ####[facility]CLIA [id number] [place] [address] AST [Catalytic activity/Vol] 22 U/L Normal 14-40 [facility] Comment on above: Order Comment: Speci men Type: BLOOD SPECIMENOrdering Facility: [facility] Address: [address] [place] [address] Performed By: #### 2 4323-8 ####[facility]CLIA [id number] [place] [address] Bilirubin [Mass/Vol] 0.6 mg/dL Normal 0.2-1.3 [facility] Comment on above: Order Comment: Speci men Type: BLOOD SPECIMENOrdering Facility: [facility] Address: [address] [place] [address] Performed By: #### 2 4323-8 ####[facility]CLIA [id number] [place] [address] Calcium [Mass/Vol] 10.0 mg/dL Normal 8.5-10.2 [facility] Comment on above: Order Comment: Speci men Type: BLOOD SPECIMENOrdering Facility: [facility] Address: [address] [place] [address] Performed By: #### 2 4323-8 ####[facility]CLIA [id number] [place] [address] Chloride [Moles/Vol] 110 mmol/L High 97-105 [facility] Comment on above: Order Comment: Speci men Type: BLOOD SPECIMENOrdering Facility: [facility] Address: [address] [place] [address] Performed By: #### 2 4323-8 ####[facility]CLIA [id number] [place] [address] CO2 [Moles/Vol] 29 mmol/L Normal 22-30 [facility] Comment on above: Order Comment: Speci men Type: BLOOD SPECIMENOrdering Facility: [facility] Address: [address] [place] [address] Performed By: #### 2 4323-8 ####[facility]CLIA [id number] [place] [address] Creatinine [Mass/Vol] 1.00 mg/dL Normal 0.73-1.22 [facility] Comment on above: Order Comment: Speci men Type: BLOOD SPECIMENOrdering Facility: [facility] Address: [address] [place] [address] Performed By: #### 2 4323-8 ####[facility] LABCLIA [id number] [place] [address] ESTIMATED GLOMERULAR FILTRATION RATE 79 mL/min/1.73m??? Normal >=60 [facility] Comment on above: Order Comment: Speci men Type: BLOOD SPECIMENOrdering Facility: [facility] Address: [address] [place] [address] Result Comment: Jessica mated Glomerular Filtration Rate [...] actual GFR. Performed By: #### 2 4323-8 ####[facility] LABCLIA [id number] [place] [address] Glucose [Mass/Vol] 125 mg/dL High 74-99 [facility] Comment on above: Order Comment: Speci men Type: BLOOD SPECIMENOrdering Facility: [facility] Address: [address] [address] Result Comment: The [place] Diabetes Association (ADA) provides guidance for cutoff [...] Standards of Medical Care in Diabetes 2016, [place] [employer]. Diabetes Care. 2016.39(Suppl 1). Performed By: #### 2 4323-8 ####[facility] LABCLIA [id number] [place] [address] Potassium [Moles/Vol] 4.5 mmol/L Normal 3.7-5.1 [facility] Comment on above: Order Comment: Speci men Type: BLOOD SPECIMENOrdering Facility: [facility] Address: [address] [place] [address] Performed By: #### 2 4323-8 ####[facility] LABCLIA [id number] [place] [address] Protein [Mass/Vol] 7.2 g/dL Normal 6.3-8.0 [facility] Comment on above: Order Comment: Speci men Type: BLOOD SPECIMENOrdering Facility: [facility] Address: [address] [address] Performed By: #### 2 4323-8 ####[facility] LABCLIA [id number] [place] [address] Sodium [Moles/Vol] 146 mmol/L High 136-144 [facility] Comment on above: Order Comment: Speci men Type: BLOOD SPECIMENOrdering Facility: [facility] Address: [address] [address] Performed By: #### 2 4323-8 ####[facility] LABCLIA [id number] [place] [address] Urea nitrogen [Mass/Vol] 24 mg/dL Normal 9-24 [facility] Comment on above: Order Comment: Speci men Type: BLOOD SPECIMENOrdering Facility: [facility] Address: [address] [address] Performed By: #### 2 4323-8 ####[facility] LABCLIA [id number] [place] [address] Prostate specific Ag [Mass/Vol] 0.20 ng/mL Normal <2.60 [facility] Comment on above: Order Comment: Speci men Type: BLOOD SPECIMENOrdering Facility: [facility] Address: [address] [address] Result Comment: Tota l PSA test methodology used is the Electrochemiluminescence Immunoassay by [employer]. Total PSA values by differing methodologies cannot be interchanged. Performed By: #### 2 857-1 ####[facility] LABCLIA [id number] [facility] [address] [place] CNPNuha 07-01-2022 ELSAN Telephone (HEMASA) JM BARROW ([id number]) 1945 M Date Time Provider Department 07/01/22 [...] of right (more content not included)... Normal [facility] CALCIUMon 05-17-2022 Calcium [Mass/Vol] 9.4 mg/dL Normal 8.5-10.1 [facility] Comment on above: Performed By: #### C JEMIMA, SORAIDA #### [facility] [address] [place] [address] Dr. Samantha Samuels Covid-19 PCR ([facility])on SARS-CoV-2 (COVID-19) RNA DELIA+probe Ql (Unsp spec) Not detected Normal NOT DETECTED [facility] Comment on above: Result Comment: This test is not yet approved or cleared by the [place] FDA. When there are no FDA-approved or cleared tests available, and other criteria are met, FDA can make tests available under an emergency access mechanism called an Emergency Use Authorization (EUA). The EUA for this test is supported by the [place] of Health and Human Service's (HHS's) declaration [...] Performed By: #### C JEMIMA, CMADM #### [facility] [address] [place] [address] [address] [address] Samantha Samuels INFLUENZA A AND B AGon 05-17 INFLUANEGH SEE BELOW Normal [facility] Comment on above: Result Comment: Nega tive for Flu A protein angiten. Infection due to Flu A cannot be ruled out. Flu A angiten in the sample may be below the detection limit of the test. Performed By: #### C JEMIMA, SORAIDA #### [facility] [address] [place] [address] Dr. Samantha Samuels [facility] SEE BELOW Normal [facility] Comment on above: Result Comment: Nega tive for Flu B protein antigen. Infection due to Flu B cannot be ruled out. Flu B antigen in the sample may be below the detection limit of the test. Performed By: #### C MP, CMADM #### [facility] [address] [address] [address] Samantha Samuels INFLUENZA A AG Negative Normal NEGATIVE SEE COMMENT [facility] Comment on above: Performed By: #### C MP, CMADM #### [facility] [address] [address] [address] Samantha Samuels INFLUENZA B AG Negative Normal NEGATIVE SEE COMMENT [facility] Comment on above: Performed By: #### C MP, CMADM #### [facility] [address] [place] [address] Dr. Samantha Samuels NM STRESS/REST MULTIon 03-24 NM STRESS/REST MULTI Patient: JM BARROW Exam Date: 03/24/2022 : 1945 Gender:M Ordering : DR ARLINE OROSCO . Admission #: [id number] Family : Order #: [id number] CLICK HERE TO VIEW EXAM RADIOLOGY REPORT [...] LOCATION: Basal inferoseptal. Mid-anterior. Mid-inferoseptal. Apical anterior. [place]. SIZE: Large (5 or more segments). SEVERITY: [...] Villar MD on 03/24/2022 at 13:00 [address] [facility] CT LUNG CANCER SCREENINGon 1 05-21-2021 [...] by: SKINNY VILLAR Date: 2022-03-21 07:45 Normal [facility] INSULINon 03-19-2022 Insulin 5.9 uIU/mL Normal 2.6-24.9 [facility] Comment on above: Performed By: #### C JEMIMA, SORAIDA #### [facility] [address] [place] [address] Dr. Samantha Samuels CBC AUTO DIFFon 03-18-2022 BASO # 0.1 103/ul Normal 0.0-0.1 [facility] Comment on above: Performed By: #### C MP, CMADM #### [facility] [address] [place] [address] Dr. Samantha Samuels Basophils/100 WBC (Bld) 1.0 % Normal 0.2-2.0 [facility] Comment on above: Performed By: #### C MP, CMADM #### [facility] [address] [place] [address] Dr. Samantha Samuels EO # 0.7 103/ul Normal 0.0-0.7 [facility] Comment on above: Performed By: #### C MP, CMADM #### [facility] [address] [place] [address] Dr. Samantha Samuels Eosinophils/100 WBC (Bld) 9.8 % Critically high 0.9-7.0 [facility] Comment on above: Performed By: #### C MP, CMADM #### [facility] [address] [place] [address] Dr. Samantha Samuels Erythrocyte distribution width (RBC) [Ratio] 12.7 % Normal 11.0-15.0 [facility] Comment on above: Performed By: #### C MP, CMADM #### [facility] [address] [place] [address] Dr. Samantha Samuels Hematocrit (Bld) [Volume fraction] 41.7 % Critically low 42.0-54.0 [facility] Comment on above: Performed By: #### C MP, CMADM #### [facility] [address] [place] [address] Dr. Samantha Samuels Hemoglobin (Bld) [Mass/Vol] 14.2 g/dL Normal 14.0-18.0 [facility] Comment on above: Performed By: #### C MP, CMADM #### [facility] [address] [place] [address] Dr. Samantha Samuels IG # 0.01 10e3/ul Normal 0.00-0.03 [facility] Comment on above: Performed By: #### C JEMIMA, CMADM #### [facility] [address] [place] [address] Dr. Samantha Samuels IG % 0.1 % Normal 0.0-0.5 [facility] Comment on above: Performed By: #### C JEMIMA, CMADM #### [facility] [address] [place] [address] Dr. Samantha Samuels LYMPH # 1.7 103/ul Normal 1.2-3.8 [facility] Comment on above: Performed By: #### C JEMIMA, PHYLLISDM #### [facility] [address] [place] [address] Dr. Samantha Samuels Lymphocytes/100 WBC (Bld) 24.7 % Normal 20.5-60.0 [facility] Comment on above: Performed By: #### C JEMIMA, PHYLLISDM #### [facility] [address] [place] [address] Dr. Samantha Samuels MANUAL DIFF REQ NO Normal [facility] Comment on above: Performed By: #### C PHYLLIS ONOFREDM #### [facility] [address] [place] [address] Dr. Samantha Samuels MCH (RBC) [Entitic mass] 31.7 pg Normal 25.9-34.0 [facility] Comment on above: Performed By: #### C JEMIMA, PHYLLISDM #### [facility] [address] [place] [address] Dr. Samantha Samuels MCHC (RBC) [Mass/Vol] 34.1 g/dL Normal 29.9-35.2 [facility] Comment on above: Performed By: #### C JEMIMA, PHYLLISDM #### [facility] [address] [place] [address] Dr. Samantha Samuels MCV (RBC) [Entitic vol] 93.1 fL Normal 80.0-94.0 [facility] Comment on above: Performed By: #### C JEMIMA, PHYLLISDM #### [facility] [address] [place] [address] Dr. Samantha Samuels MONO # 0.6 103/ul Normal 0.3-0.8 [facility] Comment on above: Performed By: #### C JEMIMA, CMADM #### [facility] [address] [address] [address] Samantha Samuels Monocytes/100 WBC (Bld) 8.6 % Normal 1.7-12.0 [facility] Comment on above: Performed By: #### C JEMIMA, CMADM #### [facility] [address] [address] [address] Samantha Samuels NEUT # 3.7 103/ul Normal 1.4-6.5 [facility] Comment on above: Performed By: #### C JEMIMA, CMADM #### [facility] [address] [address] [address] Samantha Samuels Neutrophils/100 WBC (Bld) 55.8 % Normal 43.0-75.0 [facility] Comment on above: Performed By: #### C JEMIMA, CMADM #### [facility] [address] [address] [address] Samantha Samuels Platelet mean volume (Bld) [Entitic vol] 8.8 fL Critically low 9.5-13.5 [facility] Comment on above: Performed By: #### C JEMIMA, PHYLLISDM #### [facility] [address] [address] [address] Samantha Samuels PLT 228 103/ul Normal 150-450 [facility] Comment on above: Performed By: #### C JEMIMA, CMADM #### [facility] [address] [address] [address] Samantha Samuels RBC 4.48 106/ul Critically low 4.70-6.10 [facility] Comment on above: Performed By: #### C JEMIMA, CMADM #### [facility] [address] [address] [address] Samantha Samuels WBC 6.7 103/ul Normal 4.0-11.0 [facility] Comment on above: Performed By: #### C JEMIMA, CMADM #### [facility] [address] [address] [address] Samantha Samuels GLYCOHEMOGLOBIN A1Con 2021 ADA RECOMMENDATION SEE BELOW Normal [facility] Comment on above: Result Comment: ADA RECOMMENDED LIMIT 4.0 - 6.0 ADA THERAPEUTIC TARGET < 7.0 ACTION SUGGESTED > 7.0 Performed By: #### A 1C #### [facility] [address] [address] [address] Samantha Samuels Glucose [Mass/Vol] 103 mg/dL Normal [facility] Comment on above: Performed By: #### A 1C #### [facility] [address] [place] [address] Dr. Samantha Samuels HbA1c (Bld) [Mass fraction] 5.2 % Normal 4.5-6.2 [facility] Comment on above: Performed By: #### A 1C #### [facility] [address] [place] [address] Dr. Samantha Samuels LIPID PROFILEon 03-18-2022 CHOL-HDL RATIO NORM SEE BELOW Normal [facility] Comment on above: Result Comment: 3.3 - 4.4 LOW RISK 4.4 - 7.1 AVERAGE RISK 7.1 - 11.0 MODERATE RISK >11.0 HIGH RISK Performed By: #### L IPID, URIC, CMP #### [facility] [address] [place] [address] Dr. Samantha Samuels Cholesterol [Mass/Vol] 189 mg/dL Normal <=200 [facility] Comment on above: Performed By: #### L IPID, URIC, CMP #### [facility] [address] [place] [address] Dr. Samantha Samuels Cholesterol in HDL [Mass/Vol] 54 mg/dL Normal 40-60 [facility] Comment on above: Performed By: #### L IPID, URIC, CMP #### [facility] [address] [place] [address] Dr. Samantha Samuels Cholesterol in LDL [Mass/Vol] 121.2 mg/dL Normal [facility] Comment on above: Performed By: #### L IPID, URIC, CMP #### [facility] [address] [address] [address] Samantha Samuels Cholesterol.total/ Cholesterol in HDL [Mass ratio] 3.5 {ratio} Normal [facility] Comment on above: Performed By: #### L IPID, URIC, CMP #### [facility] [address] [place] [address] Dr. Samantha Samuels HDL NORMAL > or = 60 mg/dl - LO W CARDIOVASCULAR RISK <40 mg/dl - HIGH CARDIOVASCULAR RISK Normal [facility] Comment on above: Performed By: #### L IPID, URIC, CMP #### [facility] [address] [place] [address] Dr. Samantha Samuels LDL CALC NORMAL SEE BELOW Normal [facility] Comment on above: Result Comment: <100 mg/dl OPTIMAL 100 - 129 mg/dl NEAR OR ABOVE OPTIMAL 130 - 159 mg/dl BORDERLINE HIGH 160 - 189 mg/dl HIGH >190 mg/dl VERY HIGH Performed By: #### L IPID, URIC, CMP #### [facility] [address] [place] [address] Dr. Samantha Samuels Triglyceride [Mass/Vol] 69 mg/dL Normal <=150 [facility] Comment on above: Performed By: #### L IPID, URIC, CMP #### [facility] [address] [place] [address] Dr. Samantha Samuels VLDL CALC 13.8 mg/dL Normal [facility] Comment on above: Performed By: #### L IPID, URIC, CMP #### [facility] [address] [place] [address] Dr. Samantha Samuels PROF 14(COMP METB)on 022 Albumin [Mass/Vol] 3.9 g/dL Normal 3.4-5.0 [facility] Comment on above: Performed By: #### L IPID, URIC, CMP #### [facility] [address] [place] [address] Dr. Samantha Samuels Albumin/Globulin [Mass ratio] 1.0 {ratio} Normal [facility] Comment on above: Performed By: #### L IPID, URIC, CMP #### [facility] [address] [place] [address] Dr. Samantha Samuels ALP [Catalytic activity/Vol] 45 U/L Critically low 46-116 [facility] Comment on above: Performed By: #### L IPID, URIC, CMP #### [facility] [address] [address] [address] Samantha Samuels ALT [Catalytic activity/Vol] 16 U/L Normal 16-63 [facility] Comment on above: Performed By: #### L IPID, URIC, CMP #### [facility] [address] [address] [address] Samantha Samuels Anion gap [Moles/Vol] 6.2 mmol/L Normal [facility] Comment on above: Performed By: #### L IPID, URIC, CMP #### [facility] [address] [place] [address] Dr. Samantha Samuels AST [Catalytic activity/Vol] 16 U/L Normal 15-37 [facility] Comment on above: Performed By: #### L IPID, URIC, CMP #### [facility] [address] [place] [address] Dr. Samantha Samuels Bilirubin [Mass/Vol] 0.5 mg/dL Normal 0.2-1.0 [facility] Comment on above: Performed By: #### L IPID, URIC, CMP #### [facility] [address] [place] [address] Dr. Samantha Samuels Calcium [Mass/Vol] 9.4 mg/dL Normal 8.5-10.1 [facility] Comment on above: Performed By: #### L IPID, URIC, CMP #### [facility] [address] [place] [address] Dr. Samantha Samuels Chloride [Moles/Vol] 106 mmol/L Normal 98-107 [facility] Comment on above: Performed By: #### L IPID, URIC, CMP #### [facility] [address] [place] [address] Dr. Samantha Samuels CO2 [Moles/Vol] 32.2 mmol/L Critically high 21.0-32.0 [facility] Comment on above: Performed By: #### L IPID, URIC, CMP #### [facility] [address] [address] [address] Samantha Samuels Creatinine [Mass/Vol] 0.82 mg/dL Normal 0.70-1.30 [facility] Comment on above: Performed By: #### L IPID, URIC, CMP #### [facility] [address] [place] [address] Dr. Samantha Samuels EGFR-AF MONEGASQUE >60 Normal >=60 [facility] Comment on above: Result Comment: Prev iously reported as: (blank) On 03/18/2022 10:54 By KD3 Performed By: #### L IPID, URIC, CMP #### [facility] [address] [place] [address] Dr. Samantha Samuels EGFR-NON AF MONEGASQUE >60 Normal >=60 [facility] Comment on above: Result Comment: Prev iously reported as: (blank) On 03/18/2022 10:54 By KD3 Performed By: #### L IPID, URIC, CMP #### [facility] [address] [place] [address] Dr. Samantha Samuels Globulin (S) [Mass/Vol] 3.8 g/dL Normal [facility] Comment on above: Performed By: #### L IPID, URIC, CMP #### [facility] [address] [place] [address] Dr. Samantha Samuels Glucose [Mass/Vol] 101 mg/dL Normal 74-106 [facility] Comment on above: Performed By: #### L IPID, URIC, CMP #### [facility] [address] [address] [address] Samantha Samuels Potassium [Moles/Vol] 4.4 mmol/L Normal 3.5-5.1 [facility] Comment on above: Performed By: #### L IPID, URIC, CMP #### [facility] [address] [place] [address] Dr. Samantha Samuels Protein [Mass/Vol] 7.7 g/dL Normal 6.4-8.2 [facility] Comment on above: Performed By: #### L IPID, URIC, CMP #### [facility] [address] [address] [address] Samantha Samuels Sodium [Moles/Vol] 140 mmol/L Normal 136-145 [facility] Comment on above: Performed By: #### L IPID, URIC, CMP #### [facility] [address] [place] [address] Dr. Samantha Samuels Urea nitrogen [Mass/Vol] 17.0 mg/dL Normal 7.0-18.0 [facility] Comment on above: Performed By: #### L IPID, URIC, CMP #### [facility] [address] [place] [address] Dr. Samantha Samuels Urea nitrogen/Creatinin e [Mass ratio] 20.7 mg/mg Normal [facility] Comment on above: Performed By: #### L IPID, URIC, CMP #### [facility] [address] [place] [address] Dr. Samantha Samuels URIC ACID SERUMon 03-18-2022 Urate [Mass/Vol] 4.5 mg/dL Normal 3.5-7.2 [facility] Comment on above: Performed By: #### L IPID, URIC, CMP #### [facility] [address] [place] [address] Dr. Samantha Samuels VITAMIN D 25 OHon 03-18-2022 VIT D 25-OH 73.5 ng/mL Normal [facility] Comment on above: Performed By: #### C SORAIDA ONOFRE #### [facility] [address] [place] [address] Dr. Samantha Samuels VIT D RANGES SEE BELOW Normal [facility] Comment on above: Result Comment: <20 ng/mL Vit D deficient 20 - <30 ng/mL Vit D insufficient 30 - 100 ng/mL Vit D sufficient >100 ng/mL Potential Toxicity Performed By: #### C SORAIDA ONOFRE #### [facility] [address] [place] [address] Dr. Samantha Samuels CALCIUMon 11-18-2021 Calcium [Mass/Vol] 10.3 mg/dL Critically high 8.5-10.1 [facility] Comment on above: Performed By: #### C A #### [facility] [address] [place], [place] [address] Dr. Samantha Samuels [facility]on SARS-CoV-2 (COVID-19) RNA DELIA+probe Ql (Unsp spec) Not detected Normal NOT DETECTED [facility] Comment on above: Result Comment: This test is not yet approved or cleared by the [place] FDA. When there are no FDA-approved or cleared tests available, and other criteria are met, FDA can make tests available under an emergency access mechanism called an Emergency Use Authorization (EUA). The EUA for this test is supported by the [place] of Health and Human Service's (HHS's) declaration [...] SARS-CoV-2. Performed By: #### C VDTB #### [facility] [address] [place], [place] [address] Dr. Samantha Samuels SYMPTOMATIC COVID-19 ANTIGEN on 11-17-2021 EUA Statement SEE BELOW Normal [facility] Comment on above: Result Comment: This [...] is revoked sooner. Performed By: #### C YESICAAGS #### [facility] [address] [place] [address] Dr. Samantha Samuels SARS-CoV-2 (COVID-19) RNA DELIA+probe Ql (Unsp spec) Negative Normal NEGATIVE [facility] Comment on above: Performed By: #### C VDAGS #### [facility] [address] [address] [address] Samantha Samuels [facility]on 08-14 SARS-CoV-2 (COVID-19) RNA DELIA+probe Ql (Unsp spec) Not detected Normal NOT DETECTED [facility] Comment on above: Result Comment: This test is not yet approved or cleared by the [place] FDA. When there are no FDA-approved or cleared tests available, and other criteria are met, FDA can make tests available under an emergency access mechanism called an Emergency Use Authorization (EUA). The EUA for this test is supported by the [place] of Health and Human Service's (HHS's) declaration [...] Performed By: #### C JEMIMA, CMADM #### [facility] [address] [place] [address] Dr. Samantha Samuels INFLUENZA A AND B AGon 09-07 INFLUANEGH SEE BELOW Normal [facility] Comment on above: Result Comment: Nega tive for Flu A protein angiten. Infection due to Flu A cannot be ruled out. Flu A angiten in the sample may be below the detection limit of the test. Performed By: #### C JEMIMA, CMADM #### [facility] [address] [address] [address] Samantha Samuels [facility] SEE BELOW Normal [facility] Comment on above: Result Comment: Nega tive for Flu B protein antigen. Infection due to Flu B cannot be ruled out. Flu B antigen in the sample may be below the detection limit of the test. Performed By: #### C MP, CMADM #### [facility] [address] [address] [address] Samantha Samuels INFLUENZA A AG Negative Normal NEGATIVE SEE COMMENT [facility] Comment on above: Performed By: #### C MP, CMADM #### [facility] [address] [address] [address] Samantha Samuels INFLUENZA B AG Negative Normal NEGATIVE SEE COMMENT [facility] Comment on above: Performed By: #### C MP, CMADM #### [facility] [address] [address] [address] Samantha Samuels INTERNAL CONTROLS Within Normal Limits Normal Wi thin Normal Limits [facility] Comment on above: Performed By: #### C MP, CMADM #### [facility] [address] [address] [address] Samantha Samuels Vital Signs Date Time Vital Sign Value Performing Clinician Facility 06-26-2023 10:16-0500 Body height 177.8 cm Jose Francisco Broussard MD Work Phone: [facility] 06-26-2023 10:16-0500 Body temperature 97.5 [degF] Jose Francisco Broussard MD Work Phone: [facility] 06-26-2023 10:16-0500 Body weight 81.1 kg Jose Francisco Broussard MD Work Phone: [facility] 06-26-2023 10:16-0500 Diastolic blood pressure 54 mm[Hg] Jose Francisco Broussard MD Work Phone: [facility] 06-26-2023 10:16-0500 Heart rate 85 /min Jose Francisco Broussard MD Work Phone: [facility] 06-26-2023 10:16-0500 Respiratory rate 18 /min Jose Francisco Broussard MD Work Phone: [facility] 06-26-2023 10:16-0500 SaO2% (BldA) [Mass fraction] 97 % Jose Francisco Broussard MD Work Phone: [facility] 06-26-2023 10:16-0500 Systolic blood pressure 99 mm[Hg] Jose Francisco Broussard MD Work Phone: [facility] 02-23-2023 13:23-0400 Body temperature 97.39 [degF] CALVIN Guzman MD Work Phone: [facility] 02-23-2023 13:23-0400 Body weight 83.46 kg CALVIN Guzman MD Work Phone: [facility] 02-23-2023 13:23-0400 Diastolic blood pressure 68 mm[Hg] CALVIN Guzman MD Work Phone: [facility] 02-23-2023 13:23-0400 Heart rate 64 /min CALVIN Guzman MD Work Phone: [facility] 02-23-2023 13:23-0400 Respiratory rate 16 /min CALVIN Guzman MD Work Phone: [facility] 02-23-2023 13:23-0400 SaO2% (BldA) [Mass fraction] 95 % CALVIN Guzman MD Work Phone: [facility] 02-23-2023 13:23-0400 Systolic blood pressure 109 mm[Hg] CALVIN Guzman MD Work Phone: [facility] 12-07-2022 14:01-0400 Body height 182.9 cm Manny Meza MD Work Phone: [facility] 12-07-2022 14:01-0400 Body weight 79.83 kg Manny Meza MD Work Phone: [facility] 12-07-2022 14:01-0400 Diastolic blood pressure 63 mm[Hg] Manny Meza MD Work Phone: [facility] 12-07-2022 14:01-0400 Heart rate 76 /min Manny Meza MD Work Phone: [facility] 12-07-2022 14:01-0400 Systolic blood pressure 108 mm[Hg] Manny Meza MD Work Phone: [facility] 11-24-2022 13:39-0400 Diastolic blood pressure 70 mm[Hg] CALVIN Guzman MD Work Phone: [facility] 11-24-2022 13:39-0400 Heart rate 63 /min CALVIN Guzman MD Work Phone: [facility] 11-24-2022 13:39-0400 Systolic blood pressure 111 mm[Hg] CALVIN Guzman MD Work Phone: [facility] 11-24-2022 13:38-0400 Body temperature 97 [degF] NA Megan GUTIERREZ Work Phone: [facility] 11-24-2022 13:38-0400 Body weight 80.2 kg CALVIN Guzman MD Work Phone: [facility] 11-24-2022 13:38-0400 Respiratory rate 18 /min CALVIN Guzman MD Work Phone: [facility] 11-24-2022 13:38-0400 SaO2% (BldA) [Mass fraction] 97 % CALVIN Guzman MD Work Phone: [facility] 10-18-2022 10:13-0400 Diastolic blood pressure 50 mm[Hg] Arline M Hoy Work Phone: [facility] [employer] 600 DO Work Phone: 10-18-2022 10:13-0400 Diastolic blood pressure 48 mm[Hg] Arline M Hoy Work Phone: [facility] 600 DO Work Phone: 10-18-2022 10:13-0400 Systolic blood pressure 82 mm[Hg] Arline M Hoy Work Phone: [facility] 600 DO Work Phone: 10-18-2022 10:13-0400 Systolic blood pressure 72 mm[Hg] Arline M Hoy Work Phone: [facility] 600 DO Work Phone: 10-18-2022 [id number] 58 1 Arline M Hoy Work Phone: [facility] 600 DO Work Phone: Comment on above: [employer] 10-18-2022 [id number] 56 1 Arline M Hoy Work Phone: [facility] 600 DO Work Phone: Comment on above: [employer] 10-18-2022 09:54-0400 Body height 182.88 cm Arline M Hoy Work Phone: [facility] 600 DO Work Phone: 10-18-2022 09:54-0400 Body mass index (BMI) [Ratio] 24.82 kg/m2 Arline M Hoy Work Phone: [facility] 600 DO Work Phone: 10-18-2022 09:54-0400 Body surface area Derived from formula 2.05 m2 Arline M Hoy Work Phone: [facility] 600 DO Work Phone: 10-18-2022 09:54-0400 Body weight 83.01 kg Arline M Hoy Work Phone: [facility] 600 DO Work Phone: 10-18-2022 09:54-0400 Diastolic blood pressure 60 mm[Hg] Arline M Hoy Work Phone: [facility] 600 DO Work Phone: 10-18-2022 09:54-0400 Heart rate 58 /min Arline Orosco Work Phone: [facility] 600 DO Work Phone: 10-18-2022 09:54-0400 Systolic blood pressure 90 mm[Hg] Arline Orosco Work Phone: [facility] 600 DO Work Phone: 09-22-2022 12:52-0400 Body height 182.9 cm Jose Francisco Broussard MD Work Phone: [facility] 09-22-2022 12:52-0400 Body temperature 97.39 [degF] Jose Francisco Broussard MD Work Phone: [facility] 09-22-2022 12:52-0400 Body weight 79.02 kg Jose Francisco Broussard MD Work Phone: [facility] 09-22-2022 12:52-0400 Diastolic blood pressure 49 mm[Hg] Jose Francisco Broussard MD Work Phone: [facility] 09-22-2022 12:52-0400 Heart rate 79 /min Jose Francisco Broussard MD Work Phone: [facility] 09-22-2022 12:52-0400 Respiratory rate 16 /min Jose Francisco Broussard MD Work Phone: [facility] 09-22-2022 12:52-0400 SaO2% (BldA) [Mass fraction] 94 % Jose Francisco Broussard MD Work Phone: [facility] 09-22-2022 12:52-0400 Systolic blood pressure 92 mm[Hg] Jose Francisco Broussard MD Work Phone: [facility] 09-01-2022 12:55-0400 Body height 182.88 cm Arline Orosco Work Phone: [facility] 250 DO Work Phone: 09-01-2022 12:55-0400 Body mass index (BMI) [Ratio] 24.82 kg/m2 Arline Orosco Work Phone: [facility] 250 DO Work Phone: 09-01-2022 12:55-0400 Body surface area Derived from formula 2.05 m2 Arline Nj Hoy Work Phone: [facility] 250 DO Work Phone: 09-01-2022 12:55-0400 Body weight 83.01 kg Arline Nj Hoy Work Phone: [facility] 250 DO Work Phone: 09-01-2022 12:55-0400 Diastolic blood pressure 62 mm[Hg] Arline Clem Hoy Work Phone: [facility] 250 DO Work Phone: 09-01-2022 12:55-0400 Heart rate 42 /min Arline Clem Hoy Work Phone: [facility] 250 DO Work Phone: 09-01-2022 12:55-0400 Systolic blood pressure 108 mm[Hg] Arline Clem Hoy Work Phone: [facility] 250 DO Work Phone: 06-20-2022 16:04-0500 Body temperature 97 [degF] Jose Francisco Broussard MD Work Phone: [facility] 06-20-2022 16:04-0500 Body weight 80.92 kg Jose Francisco Broussard MD Work Phone: [facility] 06-20-2022 16:04-0500 Diastolic blood pressure 88 mm[Hg] Jose Francisco Broussard MD Work Phone: [facility] 06-20-2022 16:04-0500 Heart rate 70 /min Jose Francisco Broussard MD Work Phone: [facility] 06-20-2022 16:04-0500 Respiratory rate 16 /min Jose Francisco Broussard MD Work Phone: [facility] 06-20-2022 16:04-0500 SaO2% (BldA) [Mass fraction] 98 % Jose Francisco Broussard MD Work Phone: [facility] 06-20-2022 16:04-0500 Systolic blood pressure 143 mm[Hg] Jose Francisco Broussard MD Work Phone: [facility] 06-07-2022 13:21-0500 Body temperature 97.59 [degF] CALVIN Guzman MD Work Phone: [facility] 06-07-2022 13:21-0500 Body weight 82.1 kg CALVIN Guzman MD Work Phone: [facility] 06-07-2022 13:21-0500 Diastolic blood pressure 89 mm[Hg] CALVIN Guzman MD Work Phone: [facility] 06-07-2022 13:21-0500 Heart rate 57 /min CALVIN Guzmna MD Work Phone: [facility] 06-07-2022 13:21-0500 Respiratory rate 18 /min CALVIN Guzman MD Work Phone: [facility] 06-07-2022 13:21-0500 SaO2% (BldA) [Mass fraction] 99 % CALVIN Guzman MD Work Phone: [facility] 06-07-2022 13:21-0500 Systolic blood pressure 169 mm[Hg] CALVIN Guzman MD Work Phone: [facility] 03-22-2022 13:09-0500 Body temperature 97.39 [degF] CALVIN Guzman MD Work Phone: [facility] 03-22-2022 13:09-0500 Body weight 81.65 kg CALVIN Guzman MD Work Phone: [facility] 03-22-2022 13:09-0500 Diastolic blood pressure 64 mm[Hg] CALVIN Guzman MD Work Phone: [facility] 03-22-2022 13:09-0500 Heart rate 56 /min CALVIN Guzman MD Work Phone: [facility] 03-22-2022 13:09-0500 Respiratory rate 18 /min CALVIN Guzman MD Work Phone: [facility] 03-22-2022 13:09-0500 SaO2% (BldA) [Mass fraction] 97 % CALVIN Guzman MD Work Phone: [facility] 03-22-2022 13:09-0500 Systolic blood pressure 125 mm[Hg] CALVIN Guzman MD Work Phone: [facility] Encounters Encounter Date Encounter Type Care Provider Facility Start: 07-04-2023 End: 07-04-2023 Evaluation and management of inpatient LEROY SHAW [facility] Start: 07-03-2023 End: 07-03-2023 ambulatory [facility] Pat Phone Call Provider 1 [facility] - Pre Ad[facility] Start: 07-03-2023 End: 07-03-2023 ambulatory ARLINE OROSCO [facility] Start: 06-28-2023 End: 06-28-2023 ambulatory [facility] Start: 06-26-2023 End: 06-26-2023 ambulatory JOSE FRANCISCO BROUSSARD Facility:[facility] Start: 06-26-2023 End: 06-26-2023 ambulatory [facility] Work Phone: Hematology/Oncology Comment on above: Prostate cancer (HCC ) (Primary Dx); Osteopenia of multiple sites Start: 06-26-2023 End: 06-26-2023 Patient encounter procedure Jose Francisco Broussard MD Work Phone: [facility] Start: 06-23-2023 End: 06-23-2023 ambulatory ARLINE OROSCO Facility:[facility] Start: 05-24-2023 End: 05-24-2023 ambulatory JAMES ROBB Facility:[facility] Start: 05-22-2023 End: 05-22-2023 ambulatory BARB KIRAN Facility:[facility] Start: 05-17-2023 End: 05-17-2023 ambulatory Ace GUZMAN Facility:[facility] Start: 05-12-2023 End: 05-12-2023 ambulatory JAMES ROBB Facility:[facility] Start: 04-10-2023 End: 04-10-2023 ambulatory JOSE FRANCISCO BROUSSARD Facility:[facility] Start: 04-10-2023 Telephone encounter Ace Guzman MD Work Phone: [facility] Comment on above: Nm Pet Request Start: 04-03-2023 End: 04-03-2023 ambulatory JOSE FRANCISCO BROUSSARD Facility:[facility] Start: 03-27-2023 End: 03-27-2023 ambulatory Skin Biopsy Work Phone: Neurology Start: 03-27-2023 End: 03-27-2023 Patient encounter procedure Skin Biopsy Work Phone: [facility] Start: 03-27-2023 End: 03-27-2023 ambulatory ARLINE M [facility] Start: 03-27-2023 End: 03-27-2023 Patient encounter procedure Autonomic 1 Neur Main Work Phone: [facility] Start: 02-23-2023 End: 02-24-2023 ambulatory ARLINE OROSCO Facility:[facility] Start: 02-23-2023 End: 02-24-2023 Patient encounter procedure Ace Guzman MD Work Phone: Radiation Oncology Comment on above: History of prostate cancer (Primary Dx); Prostate cancer (HCC) Start: 02-21-2023 End: 02-21-2023 ambulatory ARLINE OROSCO Facility:[facility] Start: 02-15-2023 End: 02-16-2023 ambulatory BARB KIRAN Facility:[facility] Start: 01-04-2023 End: 01-05-2023 ambulatory ARLINE OROSCO Facility:[facility] Start: 12-28-2022 Telephone encounter Umer gentile RN Work Phone: Hematology/Oncology Comment on above: Care Coordination (R adiation Appointment) Start: 12-26-2022 End: 12-27-2022 ambulatory JOSE FRANCISCO BROUSSARD Facility:[facility] Start: 12-26-2022 End: 12-27-2022 ambulatory [facility] [place] Work Phone: Hematology/Oncology Comment on above: Osteopenia of multip le sites (Primary Dx); Prostate cancer (HCC) Start: 12-19-2022 End: 12-19-2022 ambulatory ARLINE OROSCO Facility:[facility] Start: 12-07-2022 End: 12-07-2022 Patient encounter procedure Manny Meza MD Work Phone: Urology Comment on above: Malignant neoplasm o f prostate (HCC) Start: 12-07-2022 End: 12-08-2022 ambulatory Manny Meza MD Work Phone: Urology Start: 11-24-2022 End: 11-24-2022 ambulatory Ace GUZMAN Facility:[facility] Start: 11-24-2022 End: 11-24-2022 Patient encounter procedure Ace Guzman MD Work Phone: Radiation Oncology Comment on above: Malignant neoplasm o f prostate (HCC) (Primary Dx) Start: 11-17-2022 End: 11-17-2022 ambulatory Ace GUZMAN Facility:[facility] Start: 10-18-2022 Office outpatient vi sit 25 minutes Arline Orosco Work Phone: [facility] 600 DO Work Phone: Start: 10-18-2022 ambulatory Baldo Doss y: Start: 10-11-2022 AUDIT Arline Orosco Work Phone: [facility] 250 DO Work Phone: Start: 09-22-2022 End: 09-22-2022 ambulatory JOSE FRANCISCO BROUSSARD Facility:[facility] Start: 09-22-2022 End: 09-22-2022 ambulatory Jose Francisco Broussard MD Work Phone: Hematology/Oncology Comment on above: Prostate cancer (HCC ) (Primary Dx); Osteopenia of multiple sites; Primary hypertension Start: 09-22-2022 End: 09-22-2022 Patient encounter procedure Jose Francisco Broussard MD Work Phone: [facility] Start: 09-20-2022 End: 09-20-2022 ambulatory ARLINE OROSCO Facility:[facility] Start: 09-19-2022 Chart Update Arline Orosco Work Phone: [facility] 250 DO Work Phone: Start: 09-13-2022 End: 09-13-2022 ambulatory Baldo Gifford Facility:[facility] Start: 09-02-2022 End: 09-02-2022 ambulatory Arline Orosco Facility:[facility] Start: 09-02-2022 End: 09-02-2022 ambulatory MD Arline Orosco Work Phone: [facility] Work Phone: Start: 09-02-2022 End: 09-02-2022 Patient encounter procedure MD Arline Orosco Work Phone: [facility]-Ultrasound [facility] [place] Work Phone: Start: 09-01-2022 Office consultation new/estab patient 80 min Arline Orosco Work Phone: [facility] 250 DO Work Phone: Start: 09-01-2022 ambulatory Baldo Gifford Facilit y: Start: 08-18-2022 End: 08-18-2022 ambulatory ARLINE OROSCO Facility:[facility] Start: 08-15-2022 ambulatory ARLINE OROSCO Facility: [facility] Start: 08-15-2022 End: 08-15-2022 Subsequent hospital visit by physician [facility] 2 (I-Stat/3t) Work Phone: Radiology Comment on above: Cancer of prostate w /med recur risk (T2b-c or Corona 7 or PSA 10-20) (HCC) [C61] Start: 08-02-2022 End: 08-02-[address] ARLINE OROSCO . Facility: Start: 07-31-2022 End: 08-01-2022 ambulatory RYLEE LOPEZ Facility: Start: 07-25-2022 Telephone encounter Kiera Angelo RN Work Phone: Hematology/Oncology Comment on above: Care Coordination (M edication update) Start: 07-21-2022 End: 07-22-2022 ambulatory RYLEE JOHN Facility: Start: 07-18-2022 End: 07-18-2022 ambulatory ARLINE OROSCO Facility:[facility] Start: 07-18-2022 End: 07-18-2022 Patient encounter procedure Lola Faulkner Tiffany OD Work Phone: Ophthalmology Comment on above: Hypertropia of right eye (Primary Dx); Pseudophakia of both eyes; Myopia with astigmatism and presbyopia, bilateral; PVD (posterior vitreous detachment), both eyes; Dry eye syndrome, bilateral Start: 07-13-2022 Telephone encounter Darlene Young [facility] Comment on above: Medication Problem Start: 07-07-2022 End: 07-08-2022 ambulatory ARLINE OROSCO Facility:[facility] Start: 07-07-2022 End: 07-07-2022 ambulatory [facility] Work Phone: Hematology/Oncology Comment on above: Prostate cancer (HCC ) (Primary Dx) Start: 06-27-2022 Telephone encounter Hien Brunner [facility] Work Phone: Hematology/Oncology Comment on above: Medication Update (F [place] patient deciding to move forward with Xtandi beyond 14 day free trial.) Start: 06-22-2022 Telephone encounter Hien Brunner [facility] Work Phone: [facility] Comment on above: Medication Update (X tandi) Start: 06-21-2022 Telephone encounter Nadira chapa [facility] Work Phone: [facility] Comment on above: Medication Authoriza tion (Xtandi) Start: 06-20-2022 End: 06-20-2022 ambulatory Jose Francisco Broussard MD Work Phone: Hematology/Oncology Comment on above: Prostate cancer (HCC ) (Primary Dx) Start: 06-20-2022 End: 06-20-2022 Patient encounter procedure Jose Francisco Broussard MD Work Phone: [facility] Start: 06-16-2022 Chart abstracting Jose Francisco lynne MD Work Phone: Hematology/Oncology Start: 06-07-2022 End: 06-07-2022 Patient encounter procedure Ace Guzman MD Work Phone: Radiation Oncology Comment on above: Cancer of prostate w /med recur risk (T2b-c or Kita 7 or PSA 10-20) (HCC) (Primary Dx) Start: 05-17-2022 End: 05-18-[address] ARLINE OROSCO . Facility:[facility] Start: 04-19-2022 Telephone encounter Ace Guzman MD Work Phone: [facility] Comment on above: Nm Pet Request Start: 03-24-2022 End: 03-25-[address] ARLINE OROSCO . Facility:[facility] Start: 03-22-2022 End: 03-22-2022 Patient encounter procedure Ace Guzman MD Work Phone: Radiation Oncology Comment on above: History of prostate cancer (Primary Dx); Cancer of prostate w/med recur risk (T2b-c or Corona 7 or PSA 10-20) (HCC) Start: 03-18-2022 End: 03-19-[address] ARLINE [...] examination done Lola Allen OD Work Phone: [facility] Work Phone: Start: 02-28-2017 End: 03-01-2017 Ambulatory DEFAULT PHYSICIAN Facility:[facility] Procedures Date Procedure Procedure Detail Performing Clinician Start: 12-07-2022 Urnls dip stick/tabl et reagent auto microscopy Bulk Order Provider Start: 08-15-2022 Mri pelvis w/o & w/contrast material G Fox Guzman MD Work Phone: Start: 03-14-2022 PSA screening LEROY S SHEKHAR Comment on above: Performed By: #### C MP, CMADM #### [facility] [address] [address] [address] Samantha Samuels Start: 11-18-2021 PSA screening LEROY Kaushik CORRIGAN Comment on above: Performed By: #### C MP, CMADM #### [facility] [address] [address] [address] Samantha Samuels Start: 03-15-2021 Adult depression screening assessment Lola Allen OD Work Phone: Start: 11-18-2019 Colonoscopy Lola goodman OD Work Phone: Start: 08-27-2018 Lipid 1996 panel - S beverly or Plasma CALVIN Guzman MD Work Phone: Appendectomy Arline Orosco Work Phone: Hernia repair Arline M Kwesi Work Phone: Procedure on prostate Dougla s M Kwesi Work Phone: Scrotum and testicle operation Arline M Josey Work Phone: Total colonoscopy Arline M Kwesi Work Phone: Plan of Treatment Date Care Activity Detail Author Start: 06-23-2026 Diabetes Screening Diabetes Screentrevor peck [facility] Start: 10-04-2026 Diabetes Screening Diabetes Screenin g [facility] Start: 02-06-2026 DTaP,Tdap and Td Vac cines (2 - Td or Tdap) DTaP,Tdap and Td Vaccines (2 - Td or Tdap) [facility] Start: 02-06-2026 Urine microalbumin profile [facility] Start: 09-20-2025 DIABETES SCREEN DIABETES SCREEN [facility] Start: 07-07-2025 DIABETES SCREEN DIABETES SCREEN [facility] Start: 07-04-2024 Tobacco Screening Tobacco Screening [facility] Start: 06-26-2024 BP Controlled (<130/80) BP Controlle d (<130/80) [facility] Start: 06-23-2024 DIABETES SCREEN DIABETES SCREEN [facility] Start: 04-10-2024 BP Controlled (<130/80) BP Controlle d (<130/80) [facility] Start: 02-24-2024 BP Controlled (<130/80) BP Controlle d (<130/80) [facility] Start: 01-18-2024 Adult BMI Screening Adult BMI Screen ing [facility] Start: 12-27-2023 BP CONTROLLED (<130/80) BP CONTROLLE D (<130/80) [facility] Start: 12-08-2023 BP CONTROLLED (<130/80) BP CONTROLLE D (<130/80) [facility] Start: 11-25-2023 BP CONTROLLED (<130/80) BP CONTROLLE D (<130/80) [facility] Start: 09-23-2023 BP CONTROLLED (<130/80) BP CONTROLLE D (<130/80) [facility] Start: 08-28-2023 Lipid 1996 panel - S beverly or Plasma Lipid Screening [facility] Start: 08-28-2023 Lipid panel Lipid Screening [facility] Start: 08-28-2023 LIPID SCREEN LIPID SCREEN [facility] Start: 07-07-2023 BP CONTROLLED (<130/80) BP CONTROLLE D (<130/80) [facility] Start: 05-26-2023 End: 03-24-2024 NM PET/CT PROSTATE WHOLE BODY IMAGING NM PET/CT PROSTATE WHOLE BODY IMAGING Radiology Routine Prostate cancer (HCC) Expected: 05/26/2023, Expires: 03/24/2024 [facility] Work Phone: Comment on above: Expected: 05/26/2023 , Expires: 03/24/2024 Start: 05-15-2023 Advance Directive Discussion Advance Directive Discussion [facility] Start: 05-15-2023 Depression Assessment Depression Ass essment [facility] Start: 03-22-2023 BP CONTROLLED (<130/80) BP CONTROLLE D (<130/80) [facility] Start: 03-22-2023 End: 05-22-2023 Prostate specific Ag [Mass/volume] in Serum or Plasma PSA/PROSTSPECAG DIAG Lab Routine History of prostate cancer Expected: 03/22/2023, Expires: 05/22/2023 [facility] Work Phone: Comment on above: Expected: 03/22/2023 , Expires: 05/22/2023 Start: 02-08-2023 FUV, Provider: Baldo Gifford, Status: Pen, Time: 9:30 AM FUV, Provider: Baldo Gifford, Status: Terry, Time: 9:30 AM -[facility] 600 DO Work Phone: Start: 01-13-2023 Influenza vaccination C [facility] Start: 12-28-2022 End: 02-27-2023 CBC W Auto Differential panel - Blood CBC + DIFF Lab Routine Osteopenia of multiple sites Prostate cancer (HCC) Expected: 12/28/2022 (Approximate), Expires: 02/27/2023 [facility] Work Phone: Comment on above: Expected: 12/28/2022 (Approximate), Expires: 02/27/2023 Start: 12-28-2022 End: 02-27-2023 Comprehensive metabolic 2000 panel - Serum or Plasma COMP METABOLIC PANEL Lab Routine Osteopenia of multiple sites Prostate cancer (HCC) Expected: 12/28/2022 (Approximate), Expires: 02/27/2023 [facility] Work Phone: Comment on above: Expected: 12/28/2022 (Approximate), Expires: 02/27/2023 Start: 12-28-2022 End: 02-27-2023 Prostate specific Ag [Mass/volume] in Serum or Plasma PSA/PROSTSPECAG DIAG Lab Routine Osteopenia of multiple sites Prostate cancer (HCC) Expected: 12/28/2022 (Approximate), Expires: 02/27/2023 [facility] Work Phone: Comment on above: Expected: 12/28/2022 (Approximate), Expires: 02/27/2023 Start: 10-18-2022 FUV, Provider: Baldo Gifford, Status: Pen, Time: 9:20 AM FUV, Provider: Baldo Gifford, Status: Pen, Time: 9:20 AM -[facility] 250 DO Work Phone: Start: 10-06-2022 FUV, Provider: Baldo Gifford, Status: Pen, Time: 3:10 PM FUV, Provider: Baldo Gifford, Status: Pen, Time: 3:10 PM [facility] 250 DO Work Phone: Start: 09-02-2022 Doppler ultrasonogra phy of bilateral carotid arteries US carotid doppler BI [facility] Start: 09-02-2022 US.doppler Carotid arteries - bilateral [facility] Start: 06-23-2022 BP CONTROLLED (<130/80) BP CONTROLLE D (<130/80) [facility] Start: 05-22-2022 End: 04-21-2023 NM PET/CT PROSTATE WHOLE BODY IMAGING NM PET/CT PROSTATE WHOLE BODY IMAGING Radiology Routine History of prostate cancer Cancer of prostate w/med recur risk (T2b-c or Kita 7 or PSA 10-20) (HCC) Expected: 05/22/2022, Expires: 04/21/2023 [facility] Work Phone: Comment on above: Expected: 05/22/2022 , Expires: 04/21/2023 Start: 05-22-2022 End: 07-22-2022 Prostate specific Ag [Mass/volume] in Serum or Plasma PSA/PROSTSPECAG DIAG Lab Routine Cancer of prostate w/med recur risk (T2b-c or Kita 7 or PSA 10-20) (HCC) Expected: 05/22/2022, Expires: 07/22/2022 [facility] Work Phone: Comment on above: Expected: 05/22/2022 , Expires: 07/22/2022 Start: 05-22-2022 End: 07-22-2022 Testosterone [Mass/volume] in Serum or Plasma TESTOSTERONE TOTAL Lab Routine Cancer of prostate w/med recur risk (T2b-c or Kita 7 or PSA 10-20) (HCC) Expected: 05/22/2022, Expires: 07/22/2022 [facility] Work Phone: Comment on above: Expected: 05/22/2022 , Expires: 07/22/2022 Start: 05-15-2022 ADVANCE DIRECTIVE DISCUSSION ADVANCE DIRECTIVE DISCUSSION [facility] Start: 05-15-2022 [facility]MENT [facility] Start: 03-15-2022 Adult depression screening assessment DEPRESSION SCREENING [facility] Start: 05-15-2021 ADVANCE DIRECTIVE DISCUSSION ADVANCE DIRECTIVE DISCUSSION [facility] Start: 05-15-2021 DEPRESSION ASSESSMENT DEPRESSION ASS ESSMENT [facility] Start: 11-17-2020 Colonoscopy COLONOSCOPY [facility] Start: 11-17-2020 COLORECTAL CANCER SCREENING COLORECTAL CANCER SCREENING [facility] Start: 11-17-2020 Screening for malign ant neoplasm of colon [facility] Start: 12-29-2012 Fall Risk Screening Fall Risk Screen [facility] Start: 2007 RSV Vaccine (1 - 1-d ose 60+ series) RSV Vaccine (1 - 1-dose 60+ series) [facility] Start: 12-29-2002 Influenza vaccination LUNG CANCER [facility] Start: 12-29-1997 Influenza vaccination LUNG CANCER [facility] Start: 12-29-1997 Screening for malign ant neoplasm of lung Lung Cancer Screening [facility] Start: 12-29-1992 COLOGUARD (FIT-DNA) COLOGUARD (FIT-D NA) [facility] Start: 12-29-[address] COLONOGRAPHY [facility] Start: 12-29-1992 FECAL OCCULT BLOOD FECAL OCCULT BLOO D [facility] Start: 12-29-1992 Screening for malign ant neoplasm of colon [facility] Start: 12-29-1992 SIGMOIDOSCOPY SIGMOIDOSCOPY [facility] Start: 12-29-1977 Zoledronic acid therapy ALPHA- 1 ANTITRYPSIN DEFICIENCY SCREENING [facility] Start: 12-29-1965 ANNUAL PCP TEAM DIRECTOR PLANS AZAR DISEASE VISIT ANNUAL PCP TEAM CHRONIC DISEASE VISIT [facility] Start: 12-29-1965 BP CONTROLLED (<130/80) BP CONTROLLE D (<130/80) [facility] Start: 12-29-1965 HEPATITIS C SCREENING HEPATITIS C [facility] Start: 12-29-1965 Hepatitis C screening Hepatitis C [facility] Start: 12-29-1965 SPIROMETRY SPIROMETRY [facility] Start: 1959 Depression Screening Depression Scre ening [facility] Start: 12-29-1952 COVID-19 VACCINE (1) COVID-19 VACCIN E (1) [facility] Start: 07-01-1948 COVID-19 VACCINE (#1) COVID-19 VACCI NE (#1) [facility] Start: 1945 ABDOMINAL AORTIC ANE URYSM SCREENING ABDOMINAL AORTIC ANEURYSM SCREENING [facility] Start: 1945 Medicare Annual Well ness Visit Medicare Annual Wellness Visit [facility] Start: 1945 Tobacco Counseling Tobacco Counselin g [facility] End: 07-07-2023 Mri pelvis w/o & w/contrast material MRI PROSTATE WO/W IVCON Radiology Routine Cancer of prostate w/med recur risk (T2b-c or Corona 7 or PSA 10-20) (HCC) 1 Occurrences starting 06/07/2022 until 07/07/2023 [facility] Work Phone: Comment on above: 1 Occurrences starti ng 06/07/2022 until 07/07/[address] [facility] Immunizations Immunization Date Immunization Notes Care Provider Roque colon 02-12-2022 influenza nasal, unspecified formulation NA Engeler MD Work Phone: [facility] 02-12-2022 influenza virus vaccine, unspecified formulation Arline Orosco Work Phone: [facility] 250 DO Work Phone: 02-18-2021 Fluzone High-Dose Quadrivalent 0.7 ML Intramuscular Suspension Prefilled Syringe Arline Orosco Work Phone: [facility] 02-12-2021 seasonal influenza, intradermal, preservative free CALVIN Guzman MD Work Phone: [facility] 02-04-2020 influenza nasal, unspecified formulation CALVIN Guzman MD Work Phone: [facility] 02-04-2020 influenza virus vaccine, unspecified formulation Arline Orosco Work Phone: [facility] 250 DO Work Phone: 01-26-2020 influenza, high-dose , quadrivalent vaccine (FLUZONE HIGH DOSE QUADRIVALENT) Lola Loudenslager OD Work Phone: [facility] 01-14-2020 influenza, high dose seasonal, preservative-free Arline Orosco Work Phone: [facility] 02-01-2019 AS03 adjuvant CALVIN Guzman MD Work Phone: [facility] 02-01-2019 Seasonal trivalent influenza vaccine, adjuvanted, preservative free Lola Loudenslager OD Work Phone: [facility] 01-10-2019 zoster vaccine recombinant Lola Loudenslager OD Work Phone: [facility] 10-14-2018 zoster vaccine recombinant Lola Loudenslager OD Work Phone: [facility] 01-29-2018 AS03 adjuvant CALVIN Guzman MD Work Phone: [facility] 01-29-2018 Seasonal trivalent influenza vaccine, adjuvanted, preservative free Lola Loudenslager OD Work Phone: [facility] 02-10-2017 influenza, high dose seasonal, preservative-free Lola Loudenslager OD Work Phone: [facility] 02-10-2017 pneumococcal conjuga te vaccine, 13 valent Lola Loudenslager OD Work Phone: [facility] 03-04-2016 influenza, seasonal, injectable, preservative free CALIVN Guzman MD Work Phone: [facility] 03-04-2016 seasonal influenza, intradermal, preservative free Lola Loudenslager OD Work Phone: [facility] 02-07-2016 influenza, high dose seasonal, preservative-free Lola Loudenslager OD Work Phone: [facility] 02-07-2016 tetanus toxoid, redu mara diphtheria toxoid, and acellular pertussis vaccine, adsorbed Lola Loudenslager OD Work Phone: [facility] 04-16-2014 influenza, high dose seasonal, preservative-free Lola Loudenslager OD Work Phone: [facility] 04-16-2014 pneumococcal polysaccharide vaccine, 23 valent Lola Loudenslager OD Work Phone: [facility] 03-07-2014 pneumococcal polysaccharide vaccine, 23 valent Lola Loudenslager OD Work Phone: [facility] 02-27-2014 influenza, seasonal, injectable, preservative free CALVIN Guzman MD Work Phone: [facility] 02-27-2014 seasonal influenza, intradermal, preservative free Lola Loudenslager OD Work Phone: [facility] 02-20-2013 pneumococcal polysaccharide vaccine, 23 valent Lola Loudenslager OD Work Phone: [facility] Payers Date Payer Category Payer Self-pay [id number] 2018 Unknown 2018 Unknown ANTHEM BLUE CROS S AND BLUE SHIELD ANTHEM MEDIBLUE HMO [id number] 2018-Present [phone] [id number] [place] [address] O [id number] 2016 Medicare [id number] 1959 Unknown [id number] 1947 Unknown [id number] [id number] 1947 Unknown [id number] 2.16.840.1.425290.3.579.2.593 1947 Unknown [id number] 2.16.840.1.617699.3.579.2.593 1947 Unknown [id number] 2.16.840.1.866771.3.579.2.593 1947 Unknown [id number] 2.16.840.1.981398.3.579.2.593 1947 Unknown [id number] 2.16.840.1.069054.3.579.2.593 1947 Unknown [id number] 2.16.840.1.954149.3.579.2.593 1947 Unknown [id number] 2.16.840.1.965148.3.579.2.593 1947 Unknown [id number] 2.16.840.1.304393.3.579.2.593 1947 Unknown [id number] 2.16.840.1.686513.3.579.2.593 1947 Unknown [id number] 2.16.840.1.414052.3.579.2.593 1947 Unknown [id number] 2.16.840.1.906119.3.579.2.356 1947 Unknown [id number] 2.16.840.1.753635.3.579.2.356 1947 Unknown [id number] 2.16.840.1.530628.3.579.2.1244 1947 Unknown [id number] 2.16.840.1.758569.3.579.2.1286 1947 Unknown [id number] 2.16.840.1.424673.3.579.2.1286 Unknown Abdi BC/CARLOS A [id number] Unknown [id number] Unknown [id number] 2.16.840.1.292940.3.579.2.531 Unknown [id number] 2..[id number] Social History Date Type Detail Facility Start: 04-03-2012 End: 06-28-2022 Tobacco smoking status WIIS Smokes tobacco daily [facility] History of tobacco use Cigarette Smoker [facility] Start: 04-03-2012 End: 05-26-2020 Cigarettes smoked current (pack per day) - Reported 1 [facility] Comment on above: 1 PPD; Start: 04-03-2012 End: 06-28-2022 Tobacco use and exposure Smokeless tobacco non-user [facility] Start: 08-23-2021 End: 01-17-2023 Alcohol intake Current non-drinker of alcohol (finding) [facility] Start: 1945 Sex Assigned At Male [facility] Start: 03-12-2022 End: 03-22-2022 Exposure to SARS-CoV-2 (event) Not sure [facility] History of tobacco use Passive smoker [facility] Start: 10-01-2018 Tobacco smoking stat us NHIS Smoker (finding) [facility] Start: 05-26-2020 End: 11-24-2022 Tobacco use panel [facility] Adult Depression Screening Assessment 1 [facility] Start: 07-31-2018 Gender identity Identifies as male gender (finding) [facility] Start: 07-31-2018 Sexual orientation Heterosexual (ravinder aguilar) [facility] Start: 06-28-2022 Tobacco Comment 1 ppd for 42 y rs not interested [employer] Medical Equipment Procedure Code Equipment Code Equipment Origin al Text Equipment Identifier Dates Lens Iol Ultrase rt 16.0d - [id number] - [id number] Start: 06-13-2019 Lens Iol Ultrase rt 17.0d - [id number] - [id number] Start: 07-09-2019 Clinical Notes 06-23-2021 to 07-03-2023 Perioperative Nursing Note - Randee Akbar RN - 07/03/2023 3:40 PM ESTPerioperative Nursing Note - Randee Akbar RN - 07/03/2023 3:40 PM Jose Francisco Sullivan MD - 06/26/2023 5:34 AM EST Note Date & Type Note Facility 07-03-2023 Miscellaneous Notes Preoperative Education Checklist- General Surgery date: 07/04/23 Surgery time: 0800 Arrival time: 0700 1. Bring a photo ID and your insurance card with you the day of surgery. You will check in at the main lobby at the registration desk near the [facility]. 2. If you have a Living Will/Durable Power of Ice Scraper for Health Care that is not on file here, please bring a copy the day of surgery. 3. Please shower/tub bath the night before surgery or morning of. 4. NO powder, lotion, perfume/cologne, aftershave, make-up, nail kosovan, deodorant, or hair products after you have bathed. 5. Avoid ALL Aspirin and non-steroidal anti-inflammatory drugs (Ibuprofen, Advil, Aleve, Excedrin, Meloxicam, etc.) for 7 days prior to surgery OR as instructed by your surgeon. Tylenol IS ALLOWED. If you are on Ticlid, Xarelto, Eliquis, Pradaxa, Plavix, or Coumadin, please check with your prescribing doctor for instructions for when to stop them. 6. Refrain from smoking or any type of tobacco use for at least 8 hours prior to arrival for your surgery. Pre-Surgery Instructions: Medication Instructions aspirin 81 mg Check with prescribing doctor for instructions BREO ELLIPTA 100-25 mcg/dose blister with device Check with prescribing doctor for instructions CALCIUM CITRATE/VITAMIN D3 (CALCIUM CITRATE + ORAL) Check with prescribing doctor for instructions cetirizine (ZyrTEC) 10 mg tablet Check with prescribing doctor for instructions chlorthalidone (HYGROTON) 25 mg tablet Check with prescribing doctor for instructions DOCUSATE CALCIUM (STOOL SOFTENER ORAL) Check with prescribing doctor for instructions doxazosin (CARDURA) 2 mg tablet Check with prescribing doctor for instructions ESCITALOPRAM OXALATE (LEXAPRO ORAL) Check with prescribing doctor for instructions losartan (COZAAR) 50 mg tablet Check with prescribing doctor for instructions metoprolol tartrate (LOPRESSOR) 25 mg tablet Check with prescribing doctor for instructions MULTIVITAMIN (MULTIPLE VITAMINS ORAL) Check with prescribing doctor for instructions naproxen sodium (ALEVE) 220 mg tablet Check with prescribing doctor for instructions oxybutynin (DITROPAN) 5 mg tablet Check with prescribing doctor for instructions pantoprazole (PROTONIX) 40 mg EC tablet Check with prescribing doctor for instructions PROAIR HFA 90 mcg/actuation inhaler Check with prescribing doctor for instructions tamsulosin (FLOMAX) 0.4 mg capsule Check with prescribing doctor for instructions traZODone (DESYREL) 50 mg tablet Check with prescribing doctor for instructions documented in this encounter [facility] 07-03-2023 Nurse Note Preoperative Education Checklist- General Surgery date: 07/04/23 Surgery time: 0800 Arrival time: 0700 1. Bring a photo ID and your insurance card with you the day of surgery. You will check in at the main lobby at the registration desk near the [facility]. 2. If you have a Living Will/Durable Power of Ice Scraper for Health Care that is not on file here, please bring a copy the day of surgery. 3. Please shower/tub bath the night before surgery or morning of. 4. NO powder, lotion, perfume/cologne, aftershave, make-up, nail kosovan, deodorant, or hair products after you have bathed. 5. Avoid ALL Aspirin and non-steroidal anti-inflammatory drugs (Ibuprofen, Advil, Aleve, Excedrin, Meloxicam, etc.) for 7 days prior to surgery OR as instructed by your surgeon. Tylenol IS ALLOWED. If you are on Ticlid, Xarelto, Eliquis, Pradaxa, Plavix, or Coumadin, please check with your prescribing doctor for instructions for when to stop them. 6. Refrain from smoking or any type of tobacco use for at least 8 hours prior to arrival for your surgery. Pre-Surgery Instructions: Medication Instructions aspirin 81 mg Check with prescribing doctor for instructions BREO ELLIPTA 100-25 mcg/dose blister with device Check with prescribing doctor for instructions CALCIUM CITRATE/VITAMIN D3 (CALCIUM CITRATE + ORAL) Check with prescribing doctor for instructions cetirizine (ZyrTEC) 10 mg tablet Check with prescribing doctor for instructions chlorthalidone (HYGROTON) 25 mg tablet Check with prescribing doctor for instructions DOCUSATE CALCIUM (STOOL SOFTENER ORAL) Check with prescribing doctor for instructions doxazosin (CARDURA) 2 mg tablet Check with prescribing doctor for instructions ESCITALOPRAM OXALATE (LEXAPRO ORAL) Check with prescribing doctor for instructions losartan (COZAAR) 50 mg tablet Check with prescribing doctor for instructions metoprolol tartrate (LOPRESSOR) 25 mg tablet Check with prescribing doctor for instructions MULTIVITAMIN (MULTIPLE VITAMINS ORAL) Check with prescribing doctor for instructions naproxen sodium (ALEVE) 220 mg tablet Check with prescribing doctor for instructions oxybutynin (DITROPAN) 5 mg tablet Check with prescribing doctor for instructions pantoprazole (PROTONIX) 40 mg EC tablet Check with prescribing doctor for instructions PROAIR HFA 90 mcg/actuation inhaler Check with prescribing doctor for instructions tamsulosin (FLOMAX) 0.4 mg capsule Check with prescribing doctor for instructions traZODone (DESYREL) 50 mg tablet Check with prescribing doctor for instructions [facility] 06-26-2023 Note HNO ID: [id number] Author: JOSE FRANCISCO BROUSSARD MD Service: ? Author Type: Physician Type: Progress Notes Filed: 06/26/2023 20:10 Note Text: PATIENT NAME: Jm Barrow DATE: 06/26/2023 PRIMARY CARE PHYSICIAN: Arline Orosco MD OTHER PHYSICIANS: Dr. Guzman, Dr. Leroy Shaw, Dr. Guzman, Dr. Gifford, Dr. James Robb Portions of this encounter note have been copied from my note from 04/10/2023 and has been updated where appropriate, and reflect my current medical decision making from today. CC: This is a 77 year old male with recurrent prostate cancer, seen for scheduled follow-up. INTERIM HISTORY: Since the patient's last visit here he underwent a repeat PSMA PET scan, which once again revealed revealed evidence of recurrent disease in the prostate gland, but no evidence of distant metastases. Once again he conferred with [facility] urology, but is reluctant to consider brachytherapy at this time. Clinically he feels well. He has had no urinary symptoms. No unusual pain or other systemic complaints. MEDICATIONS: Current Outpatient Medications Medication Sig simvastatin [...] CATARACT, INSERT LENS,EX Bilateral 06/[address] [facility], [place] TONSILLECTOMY HX FAMILY HISTORY: FAMILY HISTORY Problem [...] anxiety, depression, or other. PHYSICAL EXAM: BP 99/54 Pulse 85 Temp 36.4 ?C (97.5 ?F) (Temporal) Resp 18 Ht 177.8 cm (5' 10 ) Wt 81.1 kg (178 lb 12.7 oz) SpO2 97% BMI 25.65 kg/m? GENERAL EXAM: Well developed/well nour (more content not included)... [facility] 06-26-2023 History of Presen t illness Narrative PATIENT NAME: Jm Barrow DATE: 06/26/2023 PRIMARY CARE PHYSICIAN: Arline Orosco MD OTHER PHYSICIANS: Dr. Guzman, Dr. Leroy Shaw, Dr. Guzman, Dr. Gifford, Dr. James Robb Portions of this encounter note have been copied from my note from 04/10/2023 and has been updated where appropriate, and reflect my current medical decision making from today. CC: This is a 77 year old male with recurrent prostate cancer, seen for scheduled follow-up. INTERIM HISTORY: Since the patient's last visit here he underwent a repeat PSMA PET scan, which once again revealed revealed evidence of recurrent disease in the prostate gland, but no evidence of distant metastases. Once again he conferred with [facility] urology, but is reluctant to consider brachytherapy at this time. Clinically he feels well. He has had no urinary symptoms. No unusual pain or other systemic complaints. MEDICATIONS: Current Outpatient Medications Medication Sig simvastatin [...] CATARACT, INSERT LENS,EX Bilateral 06/[address] [facility], [place] TONSILLECTOMY HX FAMILY HISTORY: FAMILY HISTORY Problem [...] anxiety, depression, or other. PHYSICAL EXAM: BP 99/54 Pulse 85 Temp 36.4 C (97.5 F) (Temporal) Resp 18 Ht 177.8 cm (5' 10 ) Wt 81.1 kg (178 lb 12.7 oz) SpO2 97% BMI 25.65 kg/m GENERAL EXAM: Well developed/well nourished; in [...] atrophy. PATHOLOGY: 02/14/2000 Pelvic lymph node biopsy ([facility], Dr. Doug Regalado) Metastatic prostate adenocarcinoma involving 1 of 3 lymph nodes (right obturator LN) 01/20/2000 TRUS prostate biopsy ([facility]) Prostate adenocarcinoma, Corona composite score 8 LABS: Hemoglobin (g/dL) Date Value 06/23/2023 14.9 06/24/2013 14.1 Hematocrit (%) Date Value 06/23/2023 44.4 06/24/2013 39.9 WBC (k/uL) Date Value 06/23/2023 6.58 06/24/2013 7.37 Platelet Count (k/uL) Date Value 06/23/2023 222 06/24/2013 226 PSA 12/14/2020 0.20 03/14/2022 0.48 06/02/2022 0.50 07/07/2022 0.20 09/20/2022 0.38 11/17/2022 0.49 12/19/2022 0.48 02/21/2023 0.49 04/03/2023 0.67 06/23/2023 0.84 RADIOLOGY/OTHER STUDIES: 05/13/2023 PSMA PET scan IMPRESSION: PSMA positive lesion in the paramedian [...] year imaging follow-up for AAA is advised. 08/15/2022 MRI prostate IMPRESSION: Region of asymmetric, [...] expressing neoplastic process 01/15/2022 Bone density DEXA ([employer]) Osteopenia in bilateral femoral necks ASSESSMENT/PLAN: 1. Prostate cancer (HCC) - ICD9: 185, ICD10: C61 Prostate cancer diagnosed January 2000 (prostate biopsy 01/20/2000). Initial staging revealed evidence of lymph node involvement (pelvic lymph node biopsy 02/14/2000). Initial stage T3b, N1, M0; Corona 8. The patient received primary treatment with [...] in bowel habits) and was discontinued 07/13/2022. The patient has since continued with single agent Lupron every 6 months. Prostate MRI 08/15/2022 revealed uptake in the right mid transition zone suspicious for local recurrence. Local treatment options including brachytherapy, cryotherapy, and HIFU were considered. The patient was seen at [facility] Main [place] by Dr. 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 He was seen by Dr. Robb to discuss brachytherapy, but the patient is reluctant to consider. Follow-up PSMA PET scan 05/13/2023 once again revealed evidence of disease in the prostate, but no distant metastasis. PSA has slowly increased, most recently 0.84. Options for management were discussed at length with the patient and his . He continues to be reluctant to consider brachytherapy. However, he would like more aggressive systemic treatment. After much discussion we have elected to add Casodex 50 mg daily to Lupron. He will receive Lupron today as scheduled. Return in 2 months with labs. 2. History of bladder cancer Superficial bladder cancer diagnosed Jun 2016. Status post TURBT. Status post intravesicular BCG and intravesicular gemcitabine. Continue management per urology (Dr. Shaw). 3. 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 On Prolia 60 mg SQ every 6 months since 2019, previously given at [facility]. Since December 2022 he has been receiving at our facility. He will receive an injection today. Will monitor bone density DEXA every 2 to 3 years. Jose Francisco Broussard MD CC: Dr. Leroy Shaw, [facility] Urology documented in this encounter [facility] 05-24-2023 Note HNO ID: [id number] Author: JAMES ROBB MD Service: ? Author Type: Physician Type: Progress Notes Filed: 05/24/2023 08:14 Note Text: PATIENT NAME: Jm Barrow [facility] CLINICAL NOTE Radiation Oncology PATIENT NAME: Jm Barrow CLINIC NO.: [id number] ATTENDING PHYSICIAN: James Robb M.D. DATE OF SERVICE: May 24, 2023 I spent 15 minutes in the visit, with more than 50% of the total [id number] time of the visit in counseling / coordination of care. This appointment was done virtually with the consent of the patient. The appointment was conducted while I was at [facility]. HPI: Jm Barrow is a gentleman [...] 24, 2023 cc: Dr. Megan Orosco MD [facility] [id number] [facility] 05-22-2023 Note HNO ID: [id number] Author: BARB KIRAN MD Service: ? Author [...] BP may drop by 10-15 points. His steamblaster was concerned about autonomic neuropathy; recommending to [...] - 04/13/23 Hea (more content not included)... [facility] 05-17-2023 Note HNO ID: [id number] Author: Ace Guzman MD Service: ? Author [...] follow-up with Dr. Shaw. 2 Prostate cancer Corona 8, (more content not included)... [facility] 05-12-2023 Note HNO ID: [id number] Author: Umer Browne RT(R) Service: ? Author Type: Technologist Type: Progress Notes Filed: 05/12/2023 2:47 PM Note Text: RADIOLOGY SERVICE PROGRESS NOTE SERVICE DATE: 05/12/2023 SERVICE TIME: 2:47 PM PATIENT IDENTITY VERIFICATION COMPLETED USING TWO (2) STANDARD IDENTIFIERS: Name and Date of confirmed by patient verbally POST EXAM PIV STATUS: Discontinued PROCEDURE TYPE: NM INJECT: PET/CT BODY SCAN. 10.8 mCi [id number]. No other medications given.. ADMINISTRATION TIME: 1321 PATIENT DISCHARGED TO: Ambulatory patient, left [place] department area. A Diagnostic radioactive procedure has taken place, with no further precautions necessary other than routine body substance precautions. More information regarding radiation safety can be found using this link: [email or web address] SIGNATURE: RT Radha(R) PATIENT NAME: Jm Barrow DATE: May 12, 2023 TIME: 2:47 PM PAGER/CONTACT #: [facility] 05-12-2023 Note HNO ID: [id number] Author: Tiffany Riddle RN Service: ? Author [...] DATE: May 12, 2023 TIME: 1:21 PM [facility] 04-11-2023 Miscellaneous Notes Auth#:[id number] Date Range: 04-11-23 to 07-09-2023 91430/PSMA- piflufolastat (Sheela) Khadijah GUTIERREZ Ace Montoya INS Contact Number: Intake: online Case/Ref#: [id number] Notes: 04/11/2023 Authorized online via Sherie/Abdi routed to [place] josé luis Durán for scheduling in [place] per patient's request Authorization number: PSMA Authorization date range: PSMA Primary Insurance: [employer] Diagnosis: Prostate cancer (HCC) [C61] DX Imaging: PET Scan: 06/02/2022 PET Pathology: 02/14/2000 Pelvic lymph node biopsy ([facility], Dr. Doug Regalado) Metastatic prostate adenocarcinoma involving 1 of 3 lymph nodes (right obturator LN) PROSTATE GLAND, LEFT, LEVELS 1-4 , NEEDLE BIOPSIES ([id number], A-D) - PROSTATIC ADENOCARCINOMA, KITA SCORE 7 (4+3). Comment: Adenocarcinoma involves 60% of the needle biopsy specimens. Perineural invasion is present. 2. PROSTATE GLAND, RIGHT, LEVELS 1-4, NEEDLE BIOPSIES ([id number]; E-H) - PROSTATIC ADENOCARCINOMA, KITA SCORE 7 (4+3) 01/20/2000 TRUS prostate biopsy ([facility]) Prostate adenocarcinoma, Corona composite score 8 Labs: PSA 06/02/2022 PSA [...] No - Schedule as requested Comments for Building Carpenter: EL: As soon as insurance will allow ROUTE TO SCHEDULERS POOL P PET STATISTICAL MACHINE MECHANIC or P NM SPECIAL STUDIES [facility] This form is used for MAIN CAMPUS APPOINTMENTS ONLY. Is this request for a [place] PET scan appointment? Yes: Inspection Supervisor: Kiera Romero Requesting Person Dr guzman: Area Code + Phone/Pager: [phone] Who do we call to schedule this appointment? Other Contact: [facility] pet please message anne browne in [place] Requesting Staff Dr guzman Area Code + Phone/Pager: [phone] PET Orders (A delay in scheduling will [...] COORD REVIEW MC documented in this encounter [facility] 04-10-2023 Note HNO ID: [id number] Author: Jose Francisco Broussard MD Service: ? [...] he was seen by Dr. Robb at [facility] to discuss possible brachytherapy for [...] INSERT LENS,EX Bilateral 06/2019 Dr. Alfa [place], [place] TONSILLECTOMY HX FAMILY HISTORY: FAMILY HISTORY Problem [...] jaundice. ENDO/URO: Negati (more content not included)... [facility] 03-27-2023 Note HNO ID: [id number] Author: Skye Murphy PA-C Service: ? Author Type: Physician Signwriter Type: Progress Notes Filed: 03/27/2023 3:12 PM Note Text: Skin Biopsy Procedure Note Skin Biopsy Accession Number: [id number] Biopsy Date: 03/27/2023 Referring physician: Barb Kiran [...] Procedure Note Procedure confirmed with provider and ground crewman mission support. Yes, left leg 2 skin biopsies. The [...] home. Specimens were labeled and sent to [facility] Cutaneous Nerve Laboratory. Procedure was performed by: Skye Murphy PA-C Assistance in supply/equipment preparation performed by: JUSTINO Mosley Sign out is complete. [facility] 03-27-2023 Note HNO ID: [id number] Author: Martha White Service: ? Author Type: [...] Care Visit completed when applicable. Martha White [facility] 03-27-2023 Note HNO ID: [id number] Author: Martha White Service: ? Author Type: [...] Care Visit completed when applicable. Martha White [facility] 03-27-2023 History of Presen t illness Narrative Skin Biopsy Procedure Note Skin Biopsy Accession Number: [id number] Biopsy Date: 03/27/2023 Referring physician: Barb Kiran [...] Procedure Note Procedure confirmed with provider and ground crewman mission support. Yes, left leg 2 skin biopsies. The [...] home. Specimens were labeled and sent to [facility] Cutaneous Nerve Laboratory. Procedure was performed by: Skye Murphy PA-C Assistance in supply/equipment preparation performed by: JUSTINO Mosley Sign out is complete. documented in this encounter [facility] 03-27-2023 History of Presen [...] applicable. Martha White documented in this encounter [facility] 03-27-2023 History of Presen [...] applicable. Martha White documented in this encounter [facility] 02-23-2023 Note HNO ID: [id number] Author: Ace Guzman MD Service: ? Author [...] ablative salvage yuri (more content not included)... [facility] 02-23-2023 History of Presen t illness [...] follow-up with Dr. Shaw. 2 Prostate cancer Corona 8, node positive with prior treatment including [...] Ace Guzman MD cc: Arline Orosco MD [address] [place] [phone] [address] Broussard. Portions of the above note extracted and edited from previous visit as well as active information included in the EMR. documented in this encounter [facility] 02-23-2023 Nurse Note AUA= 12 documented in this encounter [facility] 02-15-2023 Note HNO ID: [id number] Author: Barb Kiran MD Service: ? Author [...] BP may drop by 10-15 points. His steamblaster was concerned about autonomic neuropathy; recommending to [...] SURG PROC UNLISTED Right 07/05/2021 07/05/2021 - Lorenoz Archuleta MD - Recess right superior rectus by 4 mm HERNIA REPAIR HX REMOVE CATARACT, INSERT LENS,EX Bilateral 06/[address] [facility], [place] TONSILLECTOMY HX MEDICATIONS: Current Outpatient Medications Medication [...] Never used Substa (more content not included)... [facility] 01-04-2023 Note HNO ID: [id number] Author: James Robb MD Service: ? Author Type: Physician Type: Progress Notes Filed: 01/04/2023 1:08 PM Note Text: PROSTATE CANCER INITIAL VISIT SERVICE DATE: January 04, 2023 PRIMARY CARE PROVIDER: Arline Orosco MD REFERRING PROVIDER: Manny Meza [facility] [address] Consult requested for an opinion regarding the evaluation and treatment of prostate cancer. My final impression and recommendations will be communicated back to the requesting physician by way of the shared medical record or letter via US mail. I spent 60 minutes in the visit, with more than 50% of the total bqns-jc-mzmm time of the visit in counseling / [...] Available Type of Biopsy TRUS Random Biopsy Corona/ISUP Group unkn Total # of Biopsy Cores [...] CATARACT, INSERT LENS,EX Bilateral 06/2019 Dr. Grimm [place], [place] TONSILLECTOMY HX FAMILY HISTORY Problem Relation [...] mouth once d (more content not included)... [facility] 12-28-[address] Broussard spoke w/ Dr Guzman regarding radiation seed implant for pt. Dr Guzman recommends pt see Dr Robb as scheduled. Pt notified and verbalizes understanding. Umer Dale, RN documented in this encounter [facility] 12-26-2022 Note HNO ID: [id number] Author: Jose Francisco Broussard MD Service: ? [...] last visit here he was seen at [facility] [place] by Dr. Meza to evaluate for HIFU, [...] CATARACT, INSERT LENS,EX Bilateral 06/2019 Dr. Grimm [place], [place] TONSILLECTOMY HX FAMILY HISTORY: FAMILY HISTORY [...] cm (6' 0 (more content not included)... [facility] 12-07-2022 Note HNO ID: [id number] Author: Manny Meza MD Service: ? Author Type: Physician Type: Progress Notes Filed: 12/07/2022 3:33 PM Note Text: PATIENT: Jm Barrow [id number] REFERRING MD: Ace Guzman NEW PATIENT VISIT [...] symptoms. Per Dr. Guzman note: Prostate cancer Corona 8, node positive with prior treatment including [...] PET. 11/17/2022 PSA 0.49 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 Grimm - [place], [place] TONSILLECTOMY HX Medications Current Outpatient Medications [...] 09/20/2022 0.38 ng/ (more content not included)... [facility] 12-07-2022 History of Presen t illness Narrative PATIENT: Jm Barrow [id number] REFERRING MD: Ace Guzman NEW PATIENT VISIT [...] symptoms. Per Dr. Guzman note: Prostate cancer Corona 8, node positive with prior treatment including [...] PET. 11/17/2022 PSA 0.49 11/24/[address] 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 Alfa [place], [place] TONSILLECTOMY HX Medications Current Outpatient Medications Medication [...] Urologic Staff Center Urologic Oncology [facility] Manny Meza MD Urologic Staff [facility] Medical Decision Making: Problems: Moderate: New problem with uncertain prognosis Data: Unique test result(s) reviewed: 1 Unique test(s) ordered: 1 Risk: Moderate: Moderate risk from testing/treatment Medical Decision Making Level: 4 - Moderate documented in this encounter [facility] 12-07-2022 Nurse Note Summary: BLADDER S CAN PATIENT PVR READING 0mL documented in this encounter [facility] 12-07-2022 Note Patient Outreach (UR OLMN) JM BARROW ([id number]) 1945 M Date Time Provider Department 12/07/22 MANNY MEZA During your visit today, we recorded the following information about you: Allergies As of Date: 12/07/2022 Noted Allergy Reaction CHLORHEXIDINE 05/21/2013 2 - Rash hibaclens [Other] 06/02/2011 2 - Rash Date Reviewed: 12/07/2022 Reviewed by: Ina Christianson MA - Fully Assessed Visit Diagnosis:Screening for genitourinary condition [Z13.89] Order(s):URINALYSIS, REFLEX MICROSCOPIC [[id number]] Order #: [id number]. #:[id number] Prescriptions as of 12/12/2022 - pantoprazole DR [...] multiple sites [M85.89] 09/22/2022 Encounter Status:Closed by Weave, PRODUSER on 12/12/22 [facility] 11-24-2022 Note HNO ID: [id number] Author: Ace Guzman MD Service: ? Author [...] 0.15 09/15/2017 Latest Reference Range AND Units 1/19/23 13:12 Testosterone 193 - 824 ng/dL <12 [...] follow-up with Dr. Shaw. 2 Prostate cancer Corona 8, node positive with prior treatment including [...] candidate for br (more content not included)... [facility] 11-24-2022 History of Presen t illness [...] Ace Guzman MD cc: Arline Orosco MD [address] [place] [phone] [address] Broussard. Portions of the above note extracted and edited from previous visit as well as active information included in the EMR. documented in this encounter [facility] 09-22-2022 Note HNO ID: [id number] Author: Jose Francisco Broussard MD Service: ? [...] CATARACT, INSERT LENS,EX Bilateral 06/[address] [facility], [place] TONSILLECTOMY HX FAMILY HISTORY: FAMILY HISTORY Problem [...] speech disturbance, tremo (more content not included)... [facility] 09-22-2022 History of Presen t illness [...] INSERT LENS,EX Bilateral 06/2019 Dr. Alfa [place], [place] TONSILLECTOMY HX FAMILY HISTORY: FAMILY HISTORY Problem [...] atrophy. PATHOLOGY: 02/14/2000 Pelvic lymph node biopsy ([facility], Dr. Doug Regalado) Metastatic prostate adenocarcinoma involving 1 of 3 lymph nodes (right obturator LN) 01/20/2000 TRUS prostate biopsy ([facility]) Prostate adenocarcinoma, Corona composite score 8 LABS: Hemoglobin (g/dL) Date [...] expressing neoplastic process 01/15/2022 Bone density DEXA ([facility]) Osteopenia in bilateral femoral necks ASSESSMENT/PLAN: 1. Prostate cancer (HCC) - ICD9: 185, ICD10: C61 Prostate cancer diagnosed January 2000 (prostate biopsy 01/20/2000). Initial staging revealed evidence of lymph node involvement (pelvic lymph node biopsy 02/14/2000). Initial stage T3b, N1, M0; Corona 8. The patient received primary treatment with [...] [facility] documented in this encounter [facility] 08-25-2022 Nurse Note AUA=21 documented in this encounter [facility] 08-18-2022 Note HNO ID: [id number] Author: Ace Guzman MD Service: ? Author [...] follow-up with his urologist. 2 Prostate cancer Corona 8, node positive with prior treatment including [...] surveillance versus addin (more content not included)... [facility] 08-15-2022 Miscellaneous Notes Radiology Service Progress [...] RT Alyssia(R) August 15, 2022 1:43 PM documented in this encounter [facility] 08-15-2022 Nurse Note Radiology Service Progress Note [...] TIME: 12:43 PM documented in this encounter [facility] 07-25-2022 Miscellaneous Notes I will ask Dr. [...] has been elevated and he went to [facility] this past week for that. Pt states he was started on metoprolol and on other med that he can't remember the name of. . Barbara: please get records BRM: please advise Kiera Angelo RN documented in this encounter [facility] 07-18-2022 Note HNO ID: [id number] Author: Lola Allen, OD Service: ? Author Type: HOME HEALTH CNA Type: Progress Notes Filed: 07/18/2022 1:52 PM [...] Allen, OD July 18, 2022 1:49 PM [facility] 07-18-2022 History of Presen t illness [...] 2022 1:49 PM documented in this encounter [facility] 07-13-2022 Miscellaneous Notes Pt notified and verbalizes [...] to Dr. Broussard. documented in this encounter [facility] 07-07-2022 Note HNO ID: [id number] Author: Jose Francisco Broussard MD Service: ? [...] INSERT LENS,EX Bilateral 06/2019 Dr. Alfa [place], [place] TONSILLECTOMY HX FAMILY HISTORY: FAMILY HISTORY Problem [...] weakness. SKIN: Negative (more content not included)... [facility] 06-27-2022 Miscellaneous Notes Thanks. BRM Jm has decided to move forward with the Xtandi, he received his 14 day free trial on 06/24/22. I was able to secure a ronda that will cover next month and we will pursue free drug following that. He will complete the application when he comes in for his 07/07/22 appt. Matthias Pa rPh documented in this encounter [facility] 06-22-2022 Miscellaneous Notes Thanks, order signed. 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 Clerical: Please call and offer pt an education appointment. Can be in person or over the phone. Umer Dale, RN Call placed to Jm to let [...] BRM: please sign order Thank you Matthias Pa rPh documented in this encounter [facility] 06-21-2022 Miscellaneous Notes Ambulatory Pharmacy Prior Authorization Note Provider Intervention Required?: No- Pharmacy completed on your behalf. Rx Plan: Other: [address] Drug: Xtandi Cover My Meds Torres: [id number] Determination: Approved Prior Authorization/Case #: [id number] Prior Authorization Expiration: 06/21/2023 Time to PA Submission in CMM: 15 min Time to PA Determination in CMM: Same day Additional Information: $3,107.12 - will need to reach out to patient For questions relating to this submission, please contact [facility] at [phone] documented in this encounter [facility] 06-20-2022 History of Presen [...] CATARACT, INSERT LENS,EX Bilateral 06/2019 Dr. Grimm [place], [place] TONSILLECTOMY HX FAMILY HISTORY: FAMILY HISTORY Problem [...] atrophy. PATHOLOGY: 02/14/2000 Pelvic lymph node biopsy ([facility], Dr. Doug Regalado) Metastatic prostate adenocarcinoma involving 1 of 3 lymph nodes (right obturator LN) 01/20/2000 TRUS prostate biopsy ([facility]) Prostate adenocarcinoma, Kita composite score 8 LABS: [...] expressing neoplastic process 01/15/2022 Bone density DEXA ([place] [facility]) Osteopenia in bilateral femoral necks ASSESSMENT/PLAN: 1. Prostate cancer (HCC) - ICD9: 185, ICD10: C61 Prostate cancer diagnosed January 2000 (prostate biopsy 01/20/2000). Initial staging revealed evidence of lymph node involvement (pelvic lymph node biopsy 02/14/2000). Initial stage T3b, N1, M0; Corona 8. The patient received primary treatment with [...] Dr. Leroy Shaw documented in this encounter [facility] 06-10-2022 Evaluation note Diagnosis Cancer of prostate w/med recur risk (T2b-c or Kita 7 or PSA 10-20) (HCC)- Primary Malignant neoplasm of prostate documented in this encounter [facility]01-24-2023 History of Present illness Narrative* G Fox Guzman MD - 06/07/2022 1:22 PM EST [...] Ace Guzman MD cc: Arline Orosco MD [address] [place] [phone] Portions of the above note extracted and edited from previous visit as well as active information included in the EMR. [facility] Miscellaneous Notes* Telephone Encounter - Lena Dowd RN - 04/20/2022 8:11 AM EST Will submit for [address] approval closer to May 2022. submitted 05-06-22 * Telephone Encounter - Lena Dowd RN - 04/19/2022 12:48 PM EST Auth#: [id number] Date Range: 05/06/2022 to 08/03/2022 52262/PSMA- piflufolastat F [id number] NPI: Donte Montes [id number] Member ID : [address] SrinivasaShaggy [id number] INS Contact Number: [facility] [phone] Intake: Sophia started case Case/Ref#: [id number] Notes: faxed 11 pages clinical to Clinical Review Nurse at [phone]. Sophia stated case not meeting criteria and needed Peer to Peer. Email to [facility]/ Dr Simon Barrow [id number] PET/CT Prostate scan needs Peer to Peer at [phone] case [id number] email to Dr Megan Aguirre RN, Jm Barrow [id number] PET/CT Prostate scan needs Peer to Peer at [phone] case [id number]. Did you get approval? On epic referral [facility] documented approval: Authorization #: [id number] Valid From: 05/06/2022 to 08/03/2022 * Telephone Encounter - Lean Dowd RN - 04/19/2022 12:42 PM EST Authorization number: [id number] [id number] Authorization date range: PSMA 05/06/2022 to 08/03/2022 1-dos Primary Insurance: Abdi Aragon [id number] Diagnosis: History of prostate cancer [Z85.46] Cancer of prostate w/med recur risk (T2b-c or Kita 7 or PSA 10-20) (HCC) [C61] DX Imaging: CT/CTA: 01-30-[address] Pathology: Prostate cancer 2000 Labs: 03-14-22 PSA 0.48 8-- PSA 0.20 09-15-17 PSA 0.15 Clinical Notes [...] No - Schedule as requested Comments for Building Carpenter: May 2022 ROUTE TO SCHEDULERS POOL P PET 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 Is this request for a [place] PET scan appointment? Yes: Inspection Supervisor: Maral Dominique Requesting Person (Last Name, First Name): Rasta Dominique Area Code + Phone/Pager: [phone] Who do we call to schedule this appointment? Other Contact: [facility] PET in [place] ([place]), route to Anne [place]ne to schedule. Requesting Staff Jud Guzman Area Code + Phone/Pager: [phone] PET Orders (A delay in scheduling will [...] need anesthesia? NO [facility] requests [facility]* Diagnosis History of prostate cancer- Primary Personal history of malignant neoplasm of prostate Cancer of prostate w/med recur risk (T2b-c or Kita 7 or PSA 10-20) (HCC) Malignant neoplasm of prostate documented in this encounter [facility]11-08-2022 Nurse Note* Mali Mora LPN - 03/22/2022 1:12 PM EST AUA= 11 [facility] History of Present illness Narrative* G Fox Guzman MD - 03/22/2022 1:07 PM EST [...] follow-up with his urologist. 2 Prostate cancer Corona 8, node positive with prior treatment including [...] Ace Guzman MD cc: Arline Orosco MD [address] [place] [phone] Portions of the above note extracted and edited from previous visit as well as active information included in the EMR. [facility] History of Present illness Narrative* Lola Allen, OD - 08/23/2021 3:06 PM EDT ASSESSMENT/PLAN: 1. 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 Diplopia - ICD9: 368.2, ICD10: H53.2 3. Pseudophakia of both eyes - ICD9: V43.1, ICD10: Z96.1 4. Monocular diplopia of right eye - ICD9: 368.2, ICD10: H53.2 Refine spec Rx per pt request Specs from [place] are OFF x ~90 degrees of AXIS [...] with all of its relevant components. Lola Allen OD August 23, 2021 3:06 PM [facility] History of Past illness Narrative* Problem Noted Date Resolved Date BPH (benign prostatic hyperplasia) 06/23/2021 documented as of this encounter (statuses as of 08/23/2021) [address]09-2022 History of Past illness Narrative* Problem Noted Date Resolved Date BPH (benign prostatic hyperplasia) 06/23/2021 documented as of this encounter (statuses as of 03/28/2022) [address]09-2022 History of Past illness Narrative* Problem Noted Date Resolved Date BPH (benign prostatic hyperplasia) 06/23/2021 documented as of this encounter (statuses as of 05/31/2022) [address]09-2022 History of Past illness Narrative* Problem Noted Date Resolved Date BPH (benign prostatic hyperplasia) 06/23/2021 documented as of this encounter (statuses as of 06/10/2022) [address]09-2022 History of Past illness Narrative* Problem Noted Date Resolved Date BPH (benign prostatic hyperplasia) 06/23/2021 documented as of this encounter (statuses as of 06/16/2022) [address]09-2022 History of Past illness Narrative* Problem Noted Date Resolved Date BPH (benign prostatic hyperplasia) 06/23/2021 documented as of this encounter (statuses as of 06/22/2022) [address]09-2022 History of Past illness Narrative* Problem Noted Date Resolved Date BPH (benign prostatic hyperplasia) 06/23/2021 documented as of this encounter (statuses as of 06/22/2022) [address]09-2022 History of Past illness Narrative* Problem Noted Date Resolved Date BPH (benign prostatic hyperplasia) 06/23/2021 documented as of this encounter (statuses as of 06/23/2022) [address]09-2022 History of Past illness Narrative* Problem Noted Date Resolved Date BPH (benign prostatic hyperplasia) 06/23/2021 documented as of this encounter (statuses as of 06/27/2022) [address]09-2022 History of Past illness Narrative* Problem Noted Date Resolved Date BPH (benign prostatic hyperplasia) 06/23/2021 documented as of this encounter (statuses as of 07/07/2022) [address]09-2022 History of Past illness Narrative* Problem Noted Date Resolved Date BPH (benign prostatic hyperplasia) 06/23/2021 documented as of this encounter (statuses as of 07/13/2022) [address]09-2022 History of Past illness Narrative* Problem Noted Date Resolved Date BPH (benign prostatic hyperplasia) 06/23/2021 documented as of this encounter (statuses as of 07/18/2022) [address]09-2022 History of Past illness Narrative* Problem Noted Date Resolved Date BPH (benign prostatic hyperplasia) 06/23/2021 documented as of this encounter (statuses as of 07/26/2022) [address]09-2022 History of Past illness Narrative* Problem Noted Date Resolved Date BPH (benign prostatic hyperplasia) 06/23/2021 documented as of this encounter (statuses as of 08/16/2022) [address]09-2022 History of Past illness Narrative* Problem Noted Date Resolved Date BPH (benign prostatic hyperplasia) 06/23/2021 documented as of this encounter (statuses as of 09/23/2022) [address]09-2022 History of Past illness Narrative* Problem Noted Date Diagnosed Date Resolved Date BPH (benign prostatic hyperplasia) 06/23/2021 documented as of this encounter (statuses as of 11/25/2022) [address]09-2022 History of Past illness Narrative* Problem Noted Date Diagnosed Date Resolved Date BPH (benign prostatic hyperplasia) 06/23/2021 documented as of this encounter (statuses as of 12/08/2022) [address]09-2022 History of Past illness Narrative* Problem Noted Date Diagnosed Date Resolved Date BPH (benign prostatic hyperplasia) 06/23/2021 documented as of this encounter (statuses as of 12/12/2022) [address]09-2022 History of Past illness Narrative* Problem Noted Date Diagnosed Date Resolved Date BPH (benign prostatic hyperplasia) 06/23/2021 documented as of this encounter (statuses as of 12/27/2022) [address]09-2022 History of Past illness Narrative* Problem Noted Date Diagnosed Date Resolved Date BPH (benign prostatic hyperplasia) 06/23/2021 documented as of this encounter (statuses as of 12/29/2022) [address]09-2022 History of Past illness Narrative* Problem Noted Date Diagnosed Date Resolved Date BPH (benign prostatic hyperplasia) 06/23/2021 documented as of this encounter (statuses as of 03/01/2023) [address] [address] History of Past illness Narrative* Problem Noted Date Diagnosed Date Resolved Date BPH (benign prostatic hyperplasia) 06/23/2021 documented as of this encounter (statuses as of 03/28/2023) [address]22 History of Past illness Narrative* Problem Noted Date Diagnosed Date Resolved Date BPH (benign prostatic hyperplasia) 06/23/2021 documented as of this encounter (statuses as of 03/28/2023) [address]22 History of Past illness Narrative* Problem Noted Date Diagnosed Date Resolved Date BPH (benign prostatic hyperplasia) 06/23/2021 documented as of this encounter (statuses as of 04/12/2023) [address]22 History of Past illness Narrative* Problem Noted Date Diagnosed Date Resolved Date BPH (benign prostatic hyperplasia) 06/23/2021 documented as of this encounter (statuses as of 06/26/2023) [address]22 History of Past illness Narrative* Problem Noted Date Diagnosed Date Resolved Date BPH (benign prostatic hyperplasia) 06/23/2021 documented as of this encounter (statuses as of 06/27/2023) [facility] note* Diagnosis 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 Lens replaced by other means Monocular diplopia of right eye [facility] Diagnosis Prostate cancer (HCC)- Primary Malignant neoplasm of prostate [facility]* Diagnosis Prostate cancer (HCC)- Primary Malignant neoplasm of prostate [facility]* Diagnosis 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 Lens replaced by other means Myopia with astigmatism and presbyopia, bilateral PVD (posterior vitreous detachment), both eyes Vitreous degeneration Dry eye syndrome, bilateral [facility] Diagnosis Cancer of prostate w/med recur risk (T2b-c or Kita 7 or PSA 10-20) (HCC) Malignant neoplasm of prostate documented [facility] this [facility] noteNo assessment information availablePark[facility] Work Phone: Evaluation note* Diagnosis Prostate cancer (HCC)- Primary Malignant neoplasm of prostate Osteopenia of multiple sites Primary hypertension Unspecified essential hypertension [facility]* Diagnosis Malignant neoplasm of prostate (HCC)- Primary Malignant neoplasm of prostate [facility] Diagnosis Malignant neoplasm of prostate (HCC) Malignant neoplasm of prostate [facility]* Diagnosis Screening for genitourinary condition Screening for other and unspecified genitourinary condition documented [facility]* Diagnosis Osteopenia of multiple sites- Primary Prostate cancer (HCC) Malignant neoplasm of prostate [facility]* Diagnosis History of prostate cancer- Primary Personal history of malignant neoplasm of prostate Prostate cancer (HCC) Malignant neoplasm of prostate [facility] Diagnosis Orthostatic hypotension- Primary [facility] Diagnosis Orthostatic hypotension- Primary [facility] Prostate cancer (HCC)- Primary Malignant neoplasm of prostate Osteopenia of multiple sites [facility] Diagnosis Prostate cancer (HCC)- Primary Malignant neoplasm of prostate Osteopenia of multiple sites [facility] Patient returns [...] plan to see him in several months. -[facility] [address] DO Work Phone: InstructionsNot on filedocumented in this encounter [facility] for referral (narrative)* Diagnostic Procedure Only (Routine) - Pending Review Specialty Diagnoses / Procedures Referred By Tori millan Referred To Contact MOLECULAR & FUNCTIONAL IMAGING Diagnoses History of prostate cancer Cancer of prostate w/med recur risk (T2b-c or Corona 7 or PSA 10-20) (HCC) Procedures NM PET/CT PROSTATE WHOLE BODY IMAGING PET IMAGING CT ATTENUATION SKULL BASE MID-THIGH Ace Guzman MD [facility] [place] [address] Molecular & Functional Imaging [address] [place] [address] Referral ID Status Reason Start Date Expiration Date Visits Requested Visits Authorized [id number] Pending Review Auto-Generat ed Referral 05/22/2022 04/21/2023 1 1 [facility] for referral (narrative)* Diagnostic Procedure Only (Routine) - Authorized Specialty Diagnoses / Procedures Referred By Tori Referred To Contact MOLECULAR & FUNCTIONAL IMAGING Diagnoses Prostate cancer (HCC) Procedures NM PET/CT PROSTATE WHOLE BODY IMAGING PET IMAGING CT ATTENUATION SKULL BASE MID-THIGH Ace Guzman MD [facility] [place] [address] Molecular & Functional Imaging [address] [place] [address] Referral ID Status Reason Start Date Expiration Date Visits Requested Visits Authorized [id number] Authorized Auto-Generat ed Referral 05/26/2023 03/24/2024 1 1 [facility] Summary Purpose Family History No Family History [...] FoundDocuments on File Type Date Recorded 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 Advance Directive(s) 06/24/2021 8:42 AM Advance Directive(s) 11/08/2019 9:14 AM Advance Directive Response Recorded Date/ Time Advance Directives No September 12, 2018 6:07pm Reason for Referral Specialty Diagnoses / Procedures Referred By Tori t Referred To Contact Oncology Diagnoses Cancer of prostate w/med recur risk (T2b-c or Corona 7 or PSA 10-20) (HCC) Procedures CONSULT TO ONCOLOGY OFFICE/OUTPATIENT NEW HIGH MDM 60-74 MINUTES Ace Guzman MD [address] [place] [address] [place] [address] Referral ID Status Reason Start Date Expiration Date Visits Requested Visits Authorized [id number] Pending Review PCP Requested Referral 06/07/2022 06/07/2023 1 1 Specialty Diagnoses / Procedures Referred By Tori Referred To Contact MR IMAGING Diagnoses Cancer of prostate w/med recur risk (T2b-c or Corona 7 or PSA 10-20) (HCC) Procedures MRI PROSTATE WO/W IVCON MRI PELVIS W/O & W/CONTRAST MATERIAL Ace Guzman MD [address] [place] [address] [place] [address] Mr Imaging Referral ID Status Reason Start Date Expiration Date Visits Requested Visits Authorized [id number] Authorized Auto-Generat ed Referral 06/07/2022 07/07/2023 1 1 Referral ID Status Reason Start Date Expiration Date V isits Requested Visits Authorized [id number] Closed Auto-Generate d Referral 06/07/2022 07/07/2023 1 1 Specialty Diagnoses / Procedures [facility] Referred To Contact Urology Diagnoses Malignant neoplasm of prostate (HCC) Procedures CONSULT TO UROLOGY OFFICE/OUTPATIENT NEW HIGH MDM 60-74 MINUTES Ace Guzman MD [address] [place] [address] [place] [address] Referral ID Status Reason Start Date Expiration Date Visits Requested Visits Authorized [id number] Pending Review PCP Requested Referral 11/24/2022 11/24/2023 1 1 Specialty Diagnoses / Procedures Referred By Tori millan Referred To Contact Radiation Oncology Diagnoses Malignant neoplasm of prostate (HCC) Procedures RAD/ONC CONSULT OFFICE/OUTPATIENT NEW HIGH MDM 60-74 MINUTES Manny Meza MD [address] [place] [address] Referral ID Status Reason Start Date Expiration Date Visits Requested Visits Authorized [id number] Pending Review PCP Requested Referral 12/07/2022 12/07/2023 [...] Visit Chief Complaint i65.23 Chief Complaint JM PUSHPA is being seen for a 1 month follow-up of.JM BARROW is being seen for a 1 month follow-up of. Additional Source Comments (unrecognized sect ion and content) No Status Records FoundNo Status Records FoundNo Status Records FoundNo Status Records FoundNo Status Records FoundNo Status Records FoundNo Status Records FoundNo Status Records FoundNo Status Records FoundNo Status Records Found INFORMATION SOURCE (unrecogn ized section and content) DATE CREATED AUTHOR 11/07/2017 [facility] DATE CREATED AUTHOR AUTHOR'S ORGANIZ ATION 08/04/2022 [facility] DATE CREATED AUTHOR AUTHOR'S ORGANIZ ATION 08/18/2022 [facility] DATE CREATED AUTHOR AUTHOR'S ORGANIZ ATION 10/25/2022 [facility] DATE CREATED AUTHOR AUTHOR'S ORGANIZ ATION 10/25/2022 [facility] DATE CREATED AUTHOR AUTHOR'S ORGANIZ ATION 01/07/2023 [facility] DATE CREATED AUTHOR AUTHOR'S ORGANIZ ATION 02/19/2023 [facility] DATE CREATED AUTHOR AUTHOR'S ORGANIZ ATION 06/27/2023 [facility] DATE CREATED AUTHOR AUTHOR'S ORGANIZ ATION 06/30/2023 [facility] DATE CREATED AUTHOR AUTHOR'S ORGANIZ ATION 07/13/2023 [facility] Source Comments (unrecognize d section and content) In the event this informatio n is protected by the Federal Confidentiality of Alcohol and Drug Abuse Patient Records regulations: The Federal rules restrict any use of the information to criminally investigate or prosecute any alcohol or drug abuse patient.[facility] the event this information is protected by the Federal Confidentiality of Alcohol and Drug Abuse Patient Records regulations: The Federal rules restrict any use of the information to criminally investigate or prosecute any alcohol or drug abuse patient.[facility] Center[facility] the event this information is protected by the Federal Confidentiality of Alcohol and Drug Abuse Patient Records regulations: The Federal rules restrict any use of the information to criminally investigate or prosecute any alcohol or drug abuse patient.[facility] CenterIn the event this information is protected by the Federal Confidentiality of Alcohol and Drug Abuse Patient Records regulations: The Federal rules restrict any use of the information to criminally investigate or prosecute any alcohol or drug abuse patient.[facility] CenterIn the event this information is protected by the Federal Confidentiality of Alcohol and Drug Abuse Patient Records regulations: The Federal rules restrict any use of the information to criminally investigate or prosecute any alcohol or drug abuse patient.[facility] CenterIn the event this information is protected by the Federal Confidentiality of Alcohol and Drug Abuse Patient Records regulations: The Federal rules restrict any use of the information to criminally investigate or prosecute any alcohol or drug abuse patient.[facility] CenterIn the event this information is protected by the Federal Confidentiality of Alcohol and Drug Abuse Patient Records regulations: The Federal rules restrict any use of the information to criminally investigate or prosecute any alcohol or drug abuse patient.[facility] CenterIn the event this information is protected by the Federal Confidentiality of Alcohol and Drug Abuse Patient Records regulations: The Federal rules restrict any use of the information to criminally investigate or prosecute any alcohol or drug abuse patient.[facility] CenterIn the event this information is protected by the Federal Confidentiality of Alcohol and Drug Abuse Patient Records regulations: The Federal rules restrict any use of the information to criminally investigate or prosecute any alcohol or drug abuse patient.[facility] Center[facility] the event this information is protected by the Federal Confidentiality of Alcohol and Drug Abuse Patient Records regulations: The Federal rules restrict any use of the information to criminally investigate or prosecute any alcohol or drug abuse patient.[facility] CenterIn the event this information is protected by the Federal Confidentiality of Alcohol and Drug Abuse Patient Records regulations: The Federal rules restrict any use of the information to criminally investigate or prosecute any alcohol or drug abuse patient.[facility] CenterIn the event this information is protected by the Federal Confidentiality of Alcohol and Drug Abuse Patient Records regulations: The Federal rules restrict any use of the information to criminally investigate or prosecute any alcohol or drug abuse patient.[facility] CenterIn the event this information is protected by the Federal Confidentiality of Alcohol and Drug Abuse Patient Records regulations: The Federal rules restrict any use of the information to criminally investigate or prosecute any alcohol or drug abuse patient.[facility] CenterIn the event this information is protected by the Federal Confidentiality of Alcohol and Drug Abuse Patient Records regulations: The Federal rules restrict any use of the information to criminally investigate or prosecute any alcohol or drug abuse patient.[facility] CenterIn the event this information is protected by the Federal Confidentiality of Alcohol and Drug Abuse Patient Records regulations: The Federal rules restrict any use of the information to criminally investigate or prosecute any alcohol or drug abuse patient.[facility] CenterIn the event this information is protected by the Federal Confidentiality of Alcohol and Drug Abuse Patient Records regulations: The Federal rules restrict any use of the information to criminally investigate or prosecute any alcohol or drug abuse patient.[facility] CenterIn the event this information is protected by the Federal Confidentiality of Alcohol and Drug Abuse Patient Records regulations: The Federal rules restrict any use of the information to criminally investigate or prosecute any alcohol or drug abuse patient.[facility] CenterIn the event this information is protected by the Federal Confidentiality of Alcohol and Drug Abuse Patient Records regulations: The Federal rules restrict any use of the information to criminally investigate or prosecute any alcohol or drug abuse patient.[facility] CenterIn the event this information is protected by the Federal Confidentiality of Alcohol and Drug Abuse Patient Records regulations: The Federal rules restrict any use of the information to criminally investigate or prosecute any alcohol or drug abuse patient.[facility] CenterIn the event this information is protected by the Federal Confidentiality of Alcohol and Drug Abuse Patient Records regulations: The Federal rules restrict any use of the information to criminally investigate or prosecute any alcohol or drug abuse patient.[facility] CenterIn the event this information is protected by the Federal Confidentiality of Alcohol and Drug Abuse Patient Records regulations: The Federal rules restrict any use of the information to criminally investigate or prosecute any alcohol or drug abuse patient.[facility] CenterIn the event this information is protected by the Federal Confidentiality of Alcohol and Drug Abuse Patient Records regulations: The Federal rules restrict any use of the information to criminally investigate or prosecute any alcohol or drug abuse patient.[facility] CenterIn the event this information is protected by the Federal Confidentiality of Alcohol and Drug Abuse Patient Records regulations: The Federal rules restrict any use of the information to criminally investigate or prosecute any alcohol or drug abuse patient.[facility] CenterIn the event this information is protected by the Federal Confidentiality of Alcohol and Drug Abuse Patient Records regulations: The Federal rules restrict any use of the information to criminally investigate or prosecute any alcohol or drug abuse patient.[facility] CenterIn the event this information is protected by the Federal Confidentiality of Alcohol and Drug Abuse Patient Records regulations: The Federal rules restrict any use of the information to criminally investigate or prosecute any alcohol or drug abuse patient.[facility] CenterIn the event this information is protected by the Federal Confidentiality of Alcohol and Drug Abuse Patient Records regulations: The Federal rules restrict any use of the information to criminally investigate or prosecute any alcohol or drug abuse patient.[facility] CenterIn the event this information is protected by the Federal Confidentiality of Alcohol and Drug Abuse Patient Records regulations: The Federal rules restrict any use of the information to criminally investigate or prosecute any alcohol or drug abuse patient.[facility] Reason for Visit (unrecogniz ed section and content) Reason Comments Refraction Reason Comments Prostate Cancer Reason Comments Nm Pet Request Reason Comments Consult Prostate Cancer Specialty Diagnoses / Procedures Referred By Contac t Referred To Contact Oncology Diagnoses Cancer of prostate w/med recur risk (T2b-c or Corona 7 or PSA 10-20) (HCC) Procedures CONSULT TO ONCOLOGY OFFICE/OUTPATIENT NEW HIGH MDM 60-74 MINUTES Ace Guzman MD [address] [place] [address] [place] [address] Referral ID Status Reason Start Date Expiration Date Visits Requested Visits Authorized [id number] Pending Review PCP Requested Referral 06/07/2022 06/07/2023 1 1 Reason Comments Medication Update Xtandi Reason Comments Medication Authorization Xtandi Reason Comments Medication Update FYI patient deciding to move forward with Xtandi beyond 14 day free trial. Specialty Diagnoses / Procedures Referred By Contac t Referred To Contact Diagnoses Prostate cancer (HCC) Procedures LEUPROLIDE ACETATE SUSPNSION Jose Francisco Broussard MD [address] [place] [address] [place] [address] Christiano Treat Ernesto [address] [place] [address] Referral ID Status Reason Start Date Expiration Date V isits Requested Visits Authorized [id number] Authorized 07/07/2022 07/07/2023 4 4 Reason Comments Medication Problem Reason Comments Yearly Exam Reason Comments Care Coordination Medication update Specialty Diagnoses / Procedures Referred By Contac t Referred To Contact MR IMAGING Diagnoses Cancer of prostate w/med recur risk (T2b-c or Kita 7 or PSA 10-20) (HCC) Procedures MRI PROSTATE WO/W IVCON MRI PELVIS W/O & W/CONTRAST MATERIAL Ace Guzman MD [address] [place] [address] [place] [address] Mr Imaging Referral ID Status Reason Start Date Expiration Date V isits Requested Visits Authorized [id number] Closed Auto-Generate d Referral 06/07/2022 07/07/2023 1 1 Reason Comments Prostate Cancer 2 month follow up Reason Comments Prostate Cancer Follow up Reason Comments Consult Specialty Diagnoses / Procedures Referred By Contac t Referred To Contact Urology Diagnoses Malignant neoplasm of prostate (HCC) Procedures CONSULT TO UROLOGY OFFICE/OUTPATIENT NEW HIGH MDM 60-74 MINUTES Ace Guzman MD [address] [place] [address] [place] [address] Referral ID Status Reason Start Date Expiration Date Visits Requested Visits Authorized [id number] Pending Review PCP Requested Referral 11/24/2022 11/24/2023 1 1 Reason Comments Care Coordination Radiation Appointmen t Referral ID Status Reason Start Date Expiration Date V isits Requested Visits Authorized [id number] Authorized 07/07/2022 07/07/2024 6 9 Reason Comments Prostate Cancer Specialty Diagnoses / Procedures Referred By Contac t Referred To Contact Diagnoses Prostate cancer (HCC) Procedures LEUPROLIDE ACETATE SUSPNSION Jose Francisco Broussard MD [address] [place] [address] [place] [address] Chritsiano Treat Ernesto [address] [place] [address] Care Teams (unrecognized sec tion and content) Certified Medication Aide Relationship Specialty Start Date End Date Arline [place] MD PCP - General Family Practice 06/02/11 Dawna Patrick [facility] 02/10/14 Certified Medication Aide Relationship Specialty Start Date End Date Arline Orosco MD PCP - General Family Medicine 06/02/11 Dawna Patrick Urology 02/10/14 Certified Medication Aide Relationship Specialty Start Date End Date Arline [place]rosco MD PCP - General Family Medicine 06/02/11 Dawna Patrick Urology 02/10/14 Certified Medication Aide Relationship Specialty Start Date End Date Arline [place]rosc[place] MD PCP - General Family Medicine 06/02/11 Dawna Patrick Urology 02/10/14 Certified Medication Aide Relationship Specialty Start Date End Date Arline [place]rosc[place] MD PCP - General Family Medicine 06/02/11 Dawna Patrick Urology 02/10/14 Certified Medication Aide Relationship Specialty Start Date End Date Arline [place]rosco MD PCP - General Family Medicine 06/02/11 Dawna Patrick Urology 02/10/14 Certified Medication Aide Relationship Specialty Start Date End Date Arline [place]rosco MD PCP - General Family Medicine 06/02/11 Dawna Patrick Urology 02/10/14 Certified Medication Aide Relationship Specialty Start Date End Date Arline [place]rosco MD PCP - General Family Medicine 06/02/11 Dawna Patrick Urology 02/10/14 Jose Francisco Broussard MD [address] [address] Physician Hematology/Oncology 06/27/22 Helen Slade, [place].SURFACE LAY OUT TECHNICIAN [address] [address] Nurse Practitioner Hematology/Oncology 06/27/22 Umer Dale, RN [address] [place] [address] Specialty Fabric Stretcher Hematology/Oncology 06/27/22 Certified Medication Aide Relationship Specialty Start Date End Date Arline [place] MD PCP - General Family Medicine 06/02/11 Dawna Patrick Urology 02/10/14 Jose Francisco Broussard MD [address] [address] Physician Hematology/Oncology 06/27/22 Helen Slade, GRAPHICS SOFTWARE ENGINEER.SURFACE LAY OUT TECHNICIAN [address] [address] Nurse Practitioner Hematology/Oncology 06/27/22 Umer Dale, RN [address] [place], [place] [id number] Specialty Fabric Stretcher Hematology/Oncology 06/27/22 Certified Medication Aide Relationship Specialty Start Date End Date Arline [place] MD PCP - General Family Medicine 06/02/11 Dawna Patrick Urology 02/10/14 Jose Francisco Broussard MD [address] [address] Physician Hematology/Oncology 06/27/22 Helen Slade, GRAPHICS SOFTWARE ENGINEER.SURFACE LAY OUT TECHNICIAN [address] [address] Nurse Practitioner Hematology/Oncology 06/27/22 Umer Dale, HITESH [address] [address] Specialty Fabric Stretcher Hematology/Oncology 06/27/22 Certified Medication Aide Relationship Specialty Start Date End Date Arline [place] MD PCP - General Family Medicine 06/02/11 Dawna Patrick Urology 02/10/14 Jose Francisco Broussard MD [address] [address] Physician Hematology/Oncology 06/27/22 Helen Slade, GRAPHICS SOFTWARE ENGINEER.SURFACE LAY OUT TECHNICIAN [address] [address] Nurse Practitioner Hematology/Oncology 06/27/22 Umer Dale, RN [address] [address] Specialty Fabric Stretcher Hematology/Oncology 06/27/22 Certified Medication Aide Relationship Specialty Start Date End Date Arline [place] MD PCP - General Family Medicine 06/02/11 Dawna Patrick Urology 02/10/14 Jose Francisco Broussard MD [address] [address] Physician Hematology/Oncology 06/27/22 Helen Slade, GRAPHICS SOFTWARE ENGINEER.SURFACE LAY OUT TECHNICIAN [address] [address] Nurse Practitioner Hematology/Oncology 06/27/22 Umer Dale, RN [address] [address] Specialty Fabric Stretcher Hematology/Oncology 06/27/22 Team Status: Active Member Role Status Carola Orosco MD Primary Care Provider Active Team Status: Inactive Member Role Status Carola Orosco MD Primary Care Provider Active Clarence Gregory MD Attending Provider Active Certified Medication Aide Relationship Specialty Start Date End Date Arline Orosco MD PCP - General Family Medicine 06/02/11 Dawna Patrick Urology 02/10/14 Jose Francisco Broussard MD [address] [address] Physician Hematology/Oncology 06/27/22 Helen Slade, GRAPHICS SOFTWARE ENGINEER.SURFACE LAY OUT TECHNICIAN [address] [address] Nurse Practitioner Hematology/Oncology 06/27/22 Umer Dale, HITESH [address] [facility] [place] [place] [address] Specialty Fabric Stretcher Hematology/Oncology 06/27/22 Certified Medication Aide Relationship Specialty Start Date End Date Arline Orosco MD PCP - General Family Medicine 06/02/11 Dawna Patrick Urology 02/10/14 Jose Francisco Broussard MD [address] [facility] [place] [place] [address] Physician Hematology/Oncology 06/27/22 Helen Slade, [place].SURFACE LAY OUT TECHNICIAN [address] [facility] [place] [place] [address] Nurse Practitioner Hematology/Oncology 06/27/22 Umer Dale RN [address] [facility] [place] [place] [address] Specialty Fabric Stretcher Hematology/Oncology 06/27/22 Certified Medication Aide Relationship Specialty Start Date End Date Arline Orosco MD PCP - General Family Medicine 06/02/11 Dawna Patrick Urology 02/10/14 Jose Farncisco Broussard MD [address] [facility] [place] [place] [address] Physician Hematology/Oncology 06/27/22 Helen Slade, [place].SURFACE LAY OUT TECHNICIAN [address] [address] Nurse Practitioner Hematology/Oncology 06/27/22 Umer Dale, HITESH [address] [address] Specialty Fabric Stretcher Hematology/Oncology 06/27/22 Certified Medication Aide Relationship Specialty Start Date End Date Arline Orosco MD PCP - General Family Medicine 06/02/11 Dawna Patrick Urology 02/10/14 Jose Francisco Broussard MD [address] [place] [address] [place] [address] Physician Hematology/Oncology 06/27/22 Helen Slade APRN.SURFACE LAY OUT TECHNICIAN [address] [address] Nurse Practitioner Hematology/Oncology 06/27/22 Umer Dale, HITESH [address] [address] Specialty Fabric Stretcher Hematology/Oncology 06/27/22 Certified Medication Aide Relationship Specialty Start Date End Date Arline Orosco MD PCP - General Family Medicine 06/02/11 Dawna Patrick Urology 02/10/14 Jose Francisco Broussard MD [address] [place] [address] [place] [address] Physician Hematology/Oncology 06/27/22 Helen Slade, GRAPHICS SOFTWARE ENGINEER.SURFACE LAY OUT TECHNICIAN [address] [address] Nurse Practitioner Hematology/Oncology 06/27/22 Umer Dale, RN [address] [address] Specialty Fabric Stretcher Hematology/Oncology 06/27/22 Certified Medication Aide Relationship Specialty Start Date End Date Arline Orosco MD PCP - General Family Medicine 06/02/11 Dawna Patrick Urology 02/10/14 Jose Francisoc Broussard MD [address] [place] [address] [place] [address] Physician Hematology/Oncology 06/27/22 Helen Slade, GRAPHICS SOFTWARE ENGINEER.SURFACE LAY OUT TECHNICIAN [address] [address] Nurse Practitioner Hematology/Oncology 06/27/22 Umer Dale, HITESH [address] [address] Specialty Fabric Stretcher Hematology/Oncology 06/27/22 Certified Medication Aide Relationship Specialty Start Date End Date Arline Orosco MD PCP - General Family Medicine 06/02/11 Dawna Patrick Urology 02/10/14 Jose Francisco Broussard MD [address] [place] [address] [place] [address] Physician Hematology/Oncology 06/27/22 Helen Slade APRN.SURFACE LAY OUT TECHNICIAN [address] [place] [address] Nurse Practitioner Hematology/Oncology 06/27/22 Umer Dale, HITESH [address] [place] [address] Specialty Fabric Stretcher Hematology/Oncology 06/27/22 Certified Medication Aide Relationship Specialty Start Date End Date Arline Orosco MD PCP - General Family Medicine 06/02/11 Dawna Patrick Urology 02/10/14 Jose Francisco Broussard MD [address] [place] [address] [place] [address] Physician Hematology/Oncology 06/27/22 Helen Slade, GRAPHICS SOFTWARE ENGINEER.SURFACE LAY OUT TECHNICIAN [address] [place] [address] [place] [address] Nurse Practitioner Hematology/Oncology 06/27/22 Umer Dale, HITESH [address] [place] [address] Specialty Fabric Stretcher Hematology/Oncology 06/27/22 Certified Medication Aide Relationship Specialty Start Date End Date Arline Orosco MD PCP - General Family Medicine 06/02/11 Dawna Patrick Urology 02/10/14 Jose Francisco Broussard MD [address] [place] [address] [place] [address] Physician Hematology/Oncology 06/27/22 Helen Slade, GRAPHICS SOFTWARE ENGINEER.SURFACE LAY OUT TECHNICIAN [address] [place] [address] [place] [address] Nurse Practitioner Hematology/Oncology 06/27/22 Umer Dale, HITESH [address] [address] Specialty Fabric Stretcher Hematology/Oncology 06/27/22 Certified Medication Aide Relationship Specialty Start Date End Date Arline Orosco MD PCP - General Family Medicine 06/02/11 Dawna Patrick Urology 02/10/14 Jose Francisco Broussard MD [address] [place] [address] [place] [address] Physician Hematology/Oncology 06/27/22 Helen Slade, GRAPHICS SOFTWARE ENGINEER.SURFACE LAY OUT TECHNICIAN [address] [place] [address] [place] [address] Nurse Practitioner Hematology/Oncology 06/27/22 Umer Dale, HITESH [address] [address] Specialty Fabric Stretcher Hematology/Oncology 06/27/22 Certified Medication Aide Relationship Specialty Start Date End Date Arline Orosco MD [address] [place] [id number] PCP - General 06/05/13 Goals (unrecognized section and content) Goals may be documented in a n alternate sectionNot on filedocumented as of this encounter Inactive Administered Medications - up to 3 most recent administrations Administered Medications (un recognized section and content) Medication Order MAR Action Action Date Dose Rate Site denosumab 60 mg injection (PROLIA) 60 mg, SUBCUTANEOUS, ONCE, 1 dose, On Mon06/26/23 at 1100, Allow To Come To Room Temperature Before Administration. REFRIGERATE Given 06/26/2023 10:47 AM EST 60 mg Arm, Right leuprolide acetate (6 month) 45 mg IM syringe kit (LUPRON) 45 mg, INTRAMUSCULAR, ONCE, 1 dose, On Mon06/26/23 at 1100, Hazardous Chemotherapy Drug: Use appropriate PPE. Given 06/26/2023 10:47 AM EST 45 mg Buttocks, Right FOR RECORDS PERTAINING TO PATIENTS WHO ARE [...] BE BASED ON THE PRIMARY CLINICAL RECORDS. [email or web address] provides no warranty or guarantee of the accuracy or completeness of information in this document.
[2023-07-20 12:02] LABS: Basophils Absolute Auto 0.1 10^3/uL (0.0-0.1); Basophils Percent Auto 0.7 % (0.2-2.0); Eosinophils Absolute Auto 0.5 10^3/uL (0.0-0.7); Hematocrit 43.8 % (42.0-54.0); Hemoglobin 14.7 g/dL (14.0-18.0); Immature Granulocytes Abs Auto 0.01 10^3/uL (0.00-0.03); Immature Granulocytes Pct Auto 0.1 % (0.0-0.5); Lymphocytes Percent Auto 29.1 % (20.5-60.0); Mean Corpuscular HGB Conc 33.6 g/dL (29.9-35.2); Mean Corpuscular Hemoglobin 31.3 pg (25.9-34.0); Mean Corpuscular Volume 93.4 fL (80.0-94.0); Mean Platelet Volume 9.4 fL (9.5-13.5); Monocytes Absolute Auto 0.8 10^3/uL (0.3-0.8); Monocytes Percent Auto 11.4 % (1.7-12.0); Neutrophils Absolute Auto 3.4 10^3/uL (1.4-6.5); Neutrophils Percent Auto 50.7 % (43.0-75.0); Platelet Count 223 10^3/uL (150-450); Red Blood Count 4.69 10^6/uL (4.70-6.10); Red Cell Distribution Width 12.7 % (11.0-15.0); White Blood Count 6.7 10^3/uL (4.0-11.0)
[2023-07-20 13:08] LABS: Estimated Average Glucose 111 mg/dL; Glycohemoglobin A1C 5.5 % (4.5-6.2)
[2023-07-20 13:23] LABS: Albumin Level 3.9 g/dL (3.4-5.0); Alkaline Phosphatase 62 U/L (46-116); Anion Gap 13.9; Aspartate Amino Transferase 16 U/L (15-37); BUN Creatinine Ratio 23.5; Bilirubin Total 0.9 mg/dL (0.2-1.0); Calcium 9.7 mg/dL (8.5-10.1); Chloride 102 mmol/L (98-107); Chol HDL Ratio 2.9; Cholesterol 156 mg/dL (<=200); Estimated GFR (African America >60 (>=60); Estimated GFR (Non-African Ame >60 (>=60); Free T3 2.68 pg/mL (2.18-3.98); Globulin 3.8 g/dL; Glucose 103 mg/dL (74-106); HDL Cholesterol 53 mg/dL (40-60); Potassium 3.9 mmol/L (3.5-5.1); Sodium 141 mmol/L (136-145); Thyroid Stimulating Hormone 1.415 uIU/mL (0.358-3.740); Total Protein 7.7 g/dL (6.4-8.2); Triglycerides 95 mg/dL (<=150)
[2023-07-20 13:37] LABS: Alanine Aminotransferase 16 U/L (16-63)
== END 2023-07-20 11:34 | disposition home or self-care (01) ==
LOC: LAB 11:35
PROVIDERS: PCP Family Medicine; Visit Provider Family Medicine
DX: R73.9 Hyperglycemia, unspecified (principal); I10 Essential (primary) hypertension; C67.9 Malignant neoplasm of bladder, unspecified; E78.5 Hyperlipidemia, unspecified; E55.9 Vitamin D deficiency, unspecified
CPT/HCPCS: 36415; 80053; 80061; 82306; 83036; 84436; 84443; 84481; 85025

== ENCOUNTER 2023-11-21 10:39 | Outpatient (OUT) | payer MEDICARE, SELFPAY ==
[2023-11-21 11:29] LABS: Basophils Absolute Auto 0.1 10^3/uL (0.0-0.1); Basophils Percent Auto 0.6 % (0.2-2.0); Eosinophils Absolute Auto 0.3 10^3/uL (0.0-0.7); Eosinophils Percent Auto 3.2 % (0.9-7.0); Hematocrit 41.3 % (42.0-54.0); Hemoglobin 14.3 g/dL (14.0-18.0); Immature Granulocytes Abs Auto 0.04 10^3/uL (0.00-0.03); Immature Granulocytes Pct Auto 0.4 % (0.0-0.5); Lymphocytes Percent Auto 21.5 % (20.5-60.0); Mean Corpuscular HGB Conc 34.6 g/dL (29.9-35.2); Mean Corpuscular Hemoglobin 32.4 pg (25.9-34.0); Mean Corpuscular Volume 93.7 fL (80.0-94.0); Mean Platelet Volume 9.6 fL (9.5-13.5); Monocytes Absolute Auto 0.7 10^3/uL (0.3-0.8); Monocytes Percent Auto 7.6 % (1.7-12.0); Neutrophils Absolute Auto 6.3 10^3/uL (1.4-6.5); Neutrophils Percent Auto 66.7 % (43.0-75.0); Platelet Count 205 10^3/uL (150-450); Red Blood Count 4.41 10^6/uL (4.70-6.10); Red Cell Distribution Width 11.9 % (11.0-15.0); White Blood Count 9.4 10^3/uL (4.0-11.0)
[2023-11-21 11:59] LABS: Alanine Aminotransferase 15 U/L (16-63); Albumin Globulin Ratio 1.2; Alkaline Phosphatase 49 U/L (46-116); Aspartate Amino Transferase 17 U/L (15-37); BUN Creatinine Ratio 23.1; Calcium 10.1 mg/dL (8.5-10.1); Carbon Dioxide 30.4 mmol/L (21.0-32.0); Chloride 103 mmol/L (98-107); Estimated GFR (African America >60 (>=60); Estimated GFR (Non-African Ame >60 (>=60); Globulin 3.3 g/dL; Glucose 100 mg/dL (74-106); Potassium 4.4 mmol/L (3.5-5.1); Sodium 139 mmol/L (136-145); Thyroid Stimulating Hormone 1.051 uIU/mL (0.358-3.740); Total Protein 7.3 g/dL (6.4-8.2)
[2023-11-21 12:17] LABS: Free T4 1.06 ng/dL (0.76-1.46)
== END 2023-11-21 10:40 | disposition home or self-care (01) ==
LOC: LAB 10:40
PROVIDERS: PCP Family Medicine; Visit Provider Family Medicine
DX: R53.83 Other fatigue (principal)
CPT/HCPCS: 36415; 80053; 84439; 84443; 85025

== ENCOUNTER 2023-12-26 12:12 | Outpatient (OUT) | payer MEDICARE, SELFPAY ==
--- NOTE | 2023-12-26 12:29 | XR_ITS ---
The [address] [address] Patient Name: JM BARROW MRN: [id number] date: 1945 Sex: M Assigned Patient Location: [facility] Current Patient Location: Accession/Order Number: [id number] Exam Date: 12/26/2023 12:32 Report Date: 12/28/2023 06:59 At the request of: BRANDON CARTY Procedure: XR pelvis min 3V PROCEDURE: XR pelvis min 3V, XR hip RT min 2V HISTORY: Prostate Cancer, Pain Of Right Hip COMPARISON: None. FINDINGS: BONES:No fracture, acute abnormality, or significant arthropathy. SOFT TISSUES:No visible soft tissue swelling. EFFUSION:None visible. OTHER: Negative. XR/XR pelvis min 3V IMPRESSION: 1. No acute bone abnormality or significant degenerative joint disease. 2. No bone lesion. Electronically authenticated by: BANDAR CHAMBERS Date: 12/28/2023 06:59
--- NOTE | 2023-12-26 12:29 | XR_ITS ---
The [address] [address] Patient Name: JM BARROW MRN: [id number] date: 1945 Sex: M Assigned Patient Location: [facility] Current Patient Location: Accession/Order Number: [id number] Exam Date: 12/26/2023 12:32 Report Date: 12/28/2023 06:59 At the request of: BRANDON CARTY Procedure: XR hip RT min 2V PROCEDURE: XR pelvis min 3V, XR hip RT min 2V HISTORY: Prostate Cancer, Pain Of Right Hip COMPARISON: None. FINDINGS: BONES:No fracture, acute abnormality, or significant arthropathy. SOFT TISSUES:No visible soft tissue swelling. EFFUSION:None visible. OTHER: Negative. XR/XR hip RT min 2V IMPRESSION: 1. No acute bone abnormality or significant degenerative joint disease. 2. No bone lesion. Electronically authenticated by: BANDAR CHAMBERS Date: 12/28/2023 06:59
== END 2023-12-26 12:13 | disposition home or self-care (01) ==
LOC: RAD 12:16
PROVIDERS: PCP Family Medicine; Visit Provider Physician Assistant Medical
DX: M25.551 Pain in right hip (principal); C61 Malignant neoplasm of prostate
CPT/HCPCS: 72190; 73502

== ENCOUNTER 2024-04-18 11:16 | Outpatient (OUT) | payer MEDICARE, SELFPAY ==
[2024-04-18 12:23] LABS: Anion Gap 10.5; BUN Creatinine Ratio 18.8; Calcium 9.6 mg/dL (8.5-10.1); Carbon Dioxide 31.7 mmol/L (21.0-32.0); Chloride 106 mmol/L (98-107); Estimated GFR (African America >60 (>=60 mL/min/1.73m^2); Estimated GFR (Non-African Ame >60 (>=60 mL/min/1.73m^2); Glucose 91 mg/dL (74-106); Potassium 4.2 mmol/L (3.5-5.1); Sodium 144 mmol/L (136-145)
[2024-04-19 10:11] LABS: PTH, Intact 44 pg/mL (15-65)
[2024-04-19 13:09] LABS: Calcium, Ionized, Serum 5.1 mg/dL (4.5-5.6)
== END 2024-04-18 11:17 | disposition home or self-care (01) ==
LOC: LAB 11:19
PROVIDERS: PCP Family Medicine; Visit Provider Family Medicine
DX: E83.52 Hypercalcemia (principal)
CPT/HCPCS: 36415; 80048; 82330; 83970

== ENCOUNTER 2024-05-15 14:06 | Inpatient (IN) | payer MEDICARE, SELFPAY ==
[2024-05-15] VITALS (11 sets, daily range): BP systolic 97–160; BP diastolic 53–77; PULSE 60–78; TEMP 36.6–36.8; O2SAT 91–95; BMI 25.1; BMI 22.8
--- OUTSIDE RECORDS SUMMARY | 2024-05-15 14:17 | XMS_ITS | CCD ---
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 PHOTOGRAPHER.FONDANT MACHINE OPERATOR, Christiano Unavailable [phone] Etta PROCTOR, Umer Unavailable Arline Orosco MD Primary Care Provider [phone] YAMILALEROY VELIZ Admitting Unavailable YAMILALEROY VELIZ Consulting Unavailable LEROY SHAW Attending Unavailable KWESI ., DR NUNN Primary Care Unavailable HOY ., DR NUNN Consulting Unavailable HOY ., DR NUNN Attending Unavailable HOY ., DR NUNN Admitting Unavailable HOY ., DR NUNN Primary Care Unavailable HAY .DR ACKERMAN Consulting Unavailable RICHY ROUSSEAU Consulting Unavailable KWESI ., DR NUNN Primary Care Unavailable MEGAN, DR DONTE Rocha Attending Unavailable MEGAN, DR DONTE Rocha Admitting Unavailable MEGAN, DR DONTE Rocha Consulting Unavailable TWANY ., DR NUNN Primary Care Unavailable HOY [...] DR NUNN Consulting Unavailable HOY ., DR UNNN Attending Unavailable HOY ., DR NUNN Primary Care Unavailable HOY ., DR NUNN Admitting Unavailable RYLEE LOPEZ Attending Unavailable JOHN, RYLEE Admitting Unavailable BONNIE LOPEZYL Consulting Unavailable HOY ., DR NUNN Primary Care Unavailable JOHN, RYLEE Consulting Unavailable DIAB ., SAGE Attending Unavailable DIAB ., SAGE Admitting Unavailable HOY ., DR NUNN Primary Care Unavailable RONDA ALBRIGHT Consulting Unavailable DIAB ., SAGE Consulting Unavailable ARLINE OROSCO Primary Care Unavailable DONTE GUZMAN Referring Unavaila ble Arline Orosco Unavailable Unavailable Unavailable MD Arline Orosco Primary Care Provider [phone] MD Clarence Gregory Attending Provider Baldo Gifford Referring Unavailable Dr. Arline Orosco Primary Care Unavail able Baldo Gifford Attending Unavailable Baldo Gifford Referring Unavailable Dr. Arline Orosco Primary Care Unavail able Baldo Gifford Attending Unavailable Etta RN, Umer Unavailable UI, BARB C Referring Unavailable ARLINE OROSCO Primary Care Unavailable Arline Orosco MD Primary Care Provider [phone] Arline Orosco MD Primary Care Provider [phone] BALDO GIFFORD Attending Unavailable ARLINE OROSCO Primary Care Unavailable MD Arline Orosco Primary Care Provider [phone] MD Clarence Gregory Attending Provider Hoy, Arline M Primary Care Unavailable Clarence Gregory Attending Unavailable Clarence Gregory Admitting Unavailable YAMILA, LEROY G Attending Unavailable HOY, ARLINE M Referring Unavailable HOY, ARLINE M Primary Care Unavailable HOY, ARLINE M Referring Unavailable HOY, ARLINE M Primary Care Unavailable YAMILA, LEROY G Admitting Unavailable YAMILA, LEROY G Attending Unavailable YAMILA, LEROY G Referring Unavailable HOY, ARLINE M Primary Care Unavailable HOY, ARLINE M Referring Unavailable HOY, ARLINE M Primary Care Unavailable HOY, ARLINE M Referring Unavailable HOY, ARLINE M Primary Care Unavailable YAMILA, LEROY G Admitting Unavailable YAMILA, LEROY G Attending Unavailable HOY, ARLINE M Primary Care Unavailable Ace GUZMAN Attending Unavailable HOY, ARLINE M Primary Care Unavailable HOY, ARLINE M Primary Care Unavailable JOSE FRANCISCO BROUSSARD Referring Unavailable ISADORA CARTY Attending Unavailable JOSE FRANCISCO BROUSSARD Attending Unavailable JOSE FRANCISCO BROUSSARD Referring Unavailable HOY, ARLINE M Primary Care Unavailable JAMES ROBB Referring Unavailable HOY, ARLINE M Primary Care Unavailable JOSE FRANCISCO BROUSSARD Referring Unavailable HOY, ARLINE M Primary Care Unavailable HOY, ARLINE M Primary Care Unavailable JOSE FRANCISCO BROUSSARD Referring Unavailable JOSE FRANCISCO BROUSSARD Attending Unavailable JOSE FRANCISCO BROUSSARD Referring Unavailable HOY, ARLINE M Primary Care Unavailable JOSE FRANCISCO BROUSSARD Referring Unavailable HOY, ARLINE M Primary Care Unavailable LOLA ALLEN S Referring Unavaila ble LOUDLOLA ORTIZ S Attending Unavaila ble HOY, ARLINE M Primary Care Unavailable Ace GUZMAN Attending Unavailable HOY, ARLINE M Primary Care Unavailable JOSE FRANCISCO BROUSSARD Referring Unavailable JOSE FRANCISCO BROUSSARD Attending Unavailable HOY, ARLINE M Primary Care Unavailable JAMES ROBB Attending Unavailable HOY, ARLINE M Primary Care Unavailable HOY, ARLINE M Primary Care Unavailable BARB KIRAN Attending Unavailable HOY, ARLINE M Primary Care Unavailable JOSE FRANCISCO BROUSSARD Attending Unavailable JOSE FRANCISCO BROUSSARD Referring Unavailable HOY, ARLINE M Primary Care Unavailable HOY, ARLINE M Primary Care Unavailable Ace GUZMAN Attending Unavailable HOY, ARLINE M Primary Care Unavailable HOY, ARLINE M Primary Care Unavailable HOY, ARLINE M Primary Care Unavailable HOY, ARLINE M Primary Care Unavailable ARLINE OROSCO Primary Care Unavailable ARLINE OROSCO Primary Care Unavailable ARLINE OROSCO Primary Care Unavailable Arline Orosco MD Primary Care Provider [phone] ONEIL CASTRO Attending Unavailable Allergies Allergy Classification Reported Allergen(s) Allergy Type Date of Onset Reaction(s) Facility (20 sources) Chlorhexidine; Translations: [CHLORHEXIDINE] Drug Allergy 4 [facility] (20 sources) hibaclens [Other] Propensity to adverse reactions 2 [facility] Work Phone: (1 source) Chlorhexidine Drug Allergy 4 [facility] Repository (3 sources) OTHER; Translations: [OTHER] Propensity to adverse reactions (disorder) 2 [facility] Other [place] [facility] (3 sources) Chlorhexidine; Translations: [CHLORHEXIDINE GLUCONATE] Drug Allergy 6 [facility] (1 source) Chlorhexidine Drug Allergy 4 [facility] Repository Medications Current Medications Medication Drug Class(es) Dates Sig (Normalized) Sig (Original) acyclovir 0.05 mg/mg topical ointment (14 sources) Herpesvirus Nucleoside Analog DNA Polymerase Inhibitor, Herpes Simplex Virus Nucleoside Analog DNA Polymerase Inhibitor, Herpes Zoster Virus Nucleoside Analog DNA Polymerase Inhibitor Start: 04-10-2023 acyclovir (ZOVIRAX) 5 % ointment APPLY EXTERNALLY EVERY 3 HOURS *6 TIMES A DAY* NEEDED 04/10/2023 Active Comment on above: APPLY EXTERNALLY RICKEY RY 3 HOURS *6 TIMES A DAY* NEEDED [id number] actuat albuterol 0.09 mg/actuat metered dose inhaler (20 sources) beta2-Adrenergic Agonist Start: 07-10-2023 take 2 puff(s) by mouth four times daily albuterol HFA 90 mcg/act inhaler INHALE 2 PUFFS BY MOUTH 4 TIMES A DAY 07/10/2023 Active Start: 07-10-2023 take 2 puff(s) by mo uth four times daily albuterol HFA (PROVENTIL HFA, VENTOLIN HFA) 90 mcg/actuation inhaler INHALE 2 PUFFS BY MOUTH 4 TIMES A DAY 07/10/2023 Active Start: 05-28-2016 PROAIR HFA 90 mcg/actuation inhaler Inhale 2 puffs in the morning and 2 puffs at noon and 2 puffs in the evening and 2 puffs before bedtime. INHALE 2 PUFFS BY MOUTH FOUR TIMES A DAY IF NEEDED. 0 05/28/2016 Active take 2 puff(s) by mo ut every four hours as needed Albuterol Sulfate HFA 108 (90 Base) MCG/ACT Inhalation Aerosol Solution INHALE 2 PUFFS BY MOUTH EVERY 4 HOURS NEEDED Quantity: 1 Refills: 0 Ordered: 01-Sep-2022 DO Active Comment on above: INHALE 2 PUFFS BY MO UT 4 TIMES A DAY ascorbic acid 500 mg chewable tablet (20 sources) Vitamin C take 1 tablet by mouth in the morning ascorbic acid (Vitamin C) 500 MG tablet Take 500 mg by mouth in the morning. Active take 1 tablet by mouth once lenard y ascorbic acid, vitamin C, (VITAMIN C) 500 mg tablet Take 500 mg by mouth once daily. Active Comment on above: Take 500 mg by mouth once daily. aspirin 81 mg delayed release oral tablet (20 sources) Platelet Aggregation Inhibitor, Nonsteroidal Anti-inflammatory Drug Start: Aspirin (Kimberly Low Dose Aspirin) 81 mg Tablet,Delayed Release (Dr/Ec) Active 81 MG PO Daily September 14, 2018 12:00am Comment on above: Take 81 mg by mouth once daily. betamethasone 0.5 mg/ml / clotrimazole 10 mg/ml topical cream (14 sources) Azole Antifungal, Corticosteroid Start: clotrimazole-betame thasone (LOTRISONE) cream APPLY 1 APPLICATION EXTERNALLY TWICE A DAY 05/26/2023 Active Comment on above: APPLY 1 APPLICATION EXTERNALLY TWICE A DAY bicalutamide 50 mg oral tablet (20 sources) Androgen Receptor Inhibitor Start: End: take 1 tablet by mouth once daily bicalutamide (Casodex) 50 MG chemo tablet Take 50 mg by mouth Daily. 11/14/2023 Active Comment on above: Take 1 tablet by shon th once daily. take 1 tablet by shon th every day Calcium Carb And Citrate-Vitd3 (2 sources) Start: 05-03-2 019 take 1 tablet by mouth once daily Calcium Carb And Citrate-Vitd3 Active 1 TAB PO Daily September 14, 2018 12:00am calcium carbonate 625 mg / cholecalciferol 125 unt oral tablet (20 sources) Vitamin D take 1 tablet by mouth in the morning Calcium Carb-Cholecalcifero l 250-3.125 MG-MCG tablet Take 1 tablet by mouth in the morning. Active take 1 tablet by mouth once lenard y calcium-cholecalciferol, D3, (OSCAL+D 250) 250 mg-3.125 mcg (125 unit) per tablet Take 1 tablet by mouth once daily. Active Comment on above: Take 1 tablet by shon th once daily. CALCIUM CITRATE/VITAMIN D3 (CALCIUM CITRATE + ORAL) (1 source) take 1 tablet by mouth once daily CALCIUM CITRATE/VITAMIN D3 (CALCIUM CITRATE + ORAL) Take 1 tablet by mouth daily. 0 Active cetirizine hydrochloride 10 mg oral capsule (20 sources) Histamine-1 Receptor Antagonist Start: 9 take 1 capsule by mouth once daily Cetirizine (Zyrtec) 10 mg Capsule Active 1 CAP PO Daily September 14, 2018 12:00am take 1 tablet by mouth in the mo rning cetirizine (ZyrTEC) 10 mg tablet Take 1 tablet (10 mg total) by mouth in the morning. 0 Active Comment on above: Take by mouth. chlorthalidone 25 mg oral tablet (20 sources) Thiazide-like Diuretic Start: 3 take 0.5 tablet by mouth once daily Chlorthalidone 25 MG Oral Tablet take 1/2 tablet daily Quantity: 45 Refills: 3 Ordered: 11-Oct-2022 Baldo Gifford MD Start : 11-Oct-2022 Active new dose Start: 09-01-2022 End: 12-20-2023 Chlorthalidone Active 25 MG PO November 14, 2023 12:00am Comment on above: Take 25 mg by mouth once daily. cholecalciferol 0.05 mg oral capsule (20 sources) Vitamin D Start: 09-14-2018 Cholecalciferol, Vitamin D3, 50 mcg (2,000 unit) cap 2,000 Units. 09/14/2018 Active Start: 09-14-2018 End: 11-14-2023 take 1 capsule by mouth once daily Cholecalciferol (Vitamin D3) (Vitamin D3) 2,000 unit Capsule Discontinued 2000 UNIT PO Daily September 14, 2018 12:00am November 14, 2023 2:15pm take 1 tablet by shon th once daily Vitamin D3 50 MCG (1999) Oral Tablet Take 1 tablet daily Quantity: 0 Refills: 0 Ordered: 01-Sep-2022 DO Active Comment on above: 2,000 Units. ciclopirox 0.0077 mg/mg topical gel (17 sources) Start: 03-08-2023 Ciclopirox 0.77 % gel Indications: Tinea pedis of both feet APPLY TO BOTH FEET AND TOE WEBBING TWICE A DAY 90 g 2 03/08/2023 Active Comment on above: APPLY TO BOTH FEET A ND TOE WEBBING TWICE A DAY cloNIDine hydrochloride 0.1 mg oral tablet (9 sources) Central alpha-2 Adrenergic Agonist Start: 11-14-2023 Clonidine Hcl Active 0.1 MG PO November 14, 2023 12:00am End: 11-24-2022 take 1 tablet by mouth twice daily as needed cloNIDine HCl (CATAPRES) 0.1 mg tablet Take 0.1 mg by mouth twice daily. Prn systolic >160 0 11/24/2022 Discontinued Comment on above: Take 0.1 mg by mouth twice daily. Prn systolic >160 docusate sodium 100 mg oral capsule (20 sources) Start: 09-14-2018 take 1 capsule by mouth twice daily Docusate Sodium (Colace) 100 mg Capsule Active 100 MG PO Twice daily September 14, 2018 12:00am docusate sodium (Colace) 100 MG tablet Take 2 tablets by mouth Active DOCUSATE CALCIUM (STOOL SOFTENER ORAL) Take 1 capsule by mouth as needed. 0 Active Docusate Sodium 100 MG TABS TAKE 1 TABLET DAILY DIRECTED AT BEDTIME Quantity: 0 Refills: 0 Ordered: 01-Sep-2022 DO Active Comment on above: Take 2 tablets by mo uth. doxazosin 2 mg oral tablet (20 sources) alpha-Adrenergic Gabi Start: 06-07-2023 take 3 tablets by mouth once doxazosin (CARDURA) 2 mg tablet Take 3 tablets by mouth every afternoon. 06/07/2023 Active Start: 09-14-2018 take 1 tablet by shon th once daily Doxazosin (Cardura) 2 mg Tablet Active 2 MG PO Daily September 14, 2018 12:00am End: 05-17-2023 doxazosin mesylate (CARDURA ORAL) Take 6 mg by mouth. 05/17/2023 Discontinued (Course of therapy completed) doxazosin mesyla te (CARDURA ORAL) Take 6 mg by mouth. 0 Active doxazosin mesyla te (CARDURA ORAL) Take 0.5 mg by mouth. 0 Active Comment on above: Take 0.5 mg by mouth . Take 6 mg by mouth. Take 3 tablets by mo ut every afternoon. 30 actuat fluticasone furoate 0.1 mg/actuat / [...] Inhale 1 Inhalation as instructed once daily. irbesartan 75 mg oral tablet (20 sources) Angiotensin 2 Receptor Gabi Start: 11-14-2023 Irbesartan Active 75 MG PO November 14, 2023 12:00am Start: 08-01-2022 End: 11-24-2022 take 1 tablet by mouth once daily irbesartan (AVAPRO) 300 mg tablet Take 300 mg by mouth once daily. 0 08/01/2022 11/24/2022 Discontinued Comment on above: Take 300 mg by mouth once daily. Take 75 mg by mouth daily at bedtime. 24 hr metoprolol succinate 25 mg extended release oral tablet (20 sources) beta-Adrenergic Gabi Start: 11-14-2023 End: 09-23-2022 Metoprolol Succinate Active 25 MG PO November 14, 2023 12:00am take 1 tablet by shon th once daily metoprolol succinate XL (Toprol-XL) 25 MG 24 hr tablet Take 50 mg by mouth Daily Active take 1 tablet by shon th once daily metoprolol succinate ER (TOPROL XL) 25 mg 24 hr tablet Take 25 mg by mouth once daily. Active End: 08-17-2023 metoprolol tartrate, short a cting, (LOPRESSOR) 25 mg tablet Take 25 mg by mouth. 0 08/17/2023 Discontinued Comment on above: Take 25 mg by mouth once daily. Take 25 mg by mouth. metroNIDAZOLE 500 mg oral tablet (2 sources) Nitroimidazole Antimicrobial Start: 10-20-19 take 1 tablet by mouth in the morning, then take 1 tablet by mouth in the evening, then take 1 tablet by mouth at bedtime metroNIDAZOLE (Flagyl) 500 MG tablet Take 500 mg by mouth in the morning and 500 mg in the evening and 500 mg before bedtime. 10/20/2023 Active MULTI-VITAMIN ORAL (20 sources) MULTI-VITAMIN OR AL Take by mouth. Active MULTI-VITAMIN OR AL Take by mouth. 0 Active Comment on above: Take by mouth. Multiple Vitamin (Multi-Vitamin) tablet (2 sources) take 1 tablet by mouth in the morning Multiple Vitamin (Multi-Vitamin) tablet Take 1 tablet by mouth in the morning. Active Multivitamin (Multiple Vitamins) Tablet (2 sources) Start: 09-14-2018 take 1 tablet by mouth once daily Multivitamin (Multiple Vitamins) Tablet Active 1 TAB PO Daily September 14, 2018 12:00am Multivitamin preparation (1 source) take 1 tablet by mouth once daily MULTIVITAMIN (MULTIPLE VITAMINS ORAL) Take 1 tablet by mouth daily. 0 Active multivitamin tablet (14 sources) take 1 tablet by mouth once daily multivitamin tablet Take 1 tablet by mouth once daily. Active take 1 tablet by mouth once lenard y multivitamin tablet Take 1 tablet by mouth once daily. 0 Active Comment on above: Take 1 tablet by shon once daily. mupirocin 0.02 mg/mg topical ointment (16 sources) RNA Synthetase Inhibitor Antibacterial Start: 04-09-2023 mupirocin (Bactroban) 2 % ointment APPLY 1 APPLICATION TOPICALLY TWICE A DAY FOR 5 DAYS 03/15/2024 Active Comment on above: Apply to affected ar ea two times a day. APPLY TO AFFECTED AREA naproxen sodium 220 mg oral tablet (20 sources) Nonsteroidal Anti-inflammatory Drug naproxen sodium ( Aleve) 220 MG tablet Take 220 mg by mouth every 12 (twelve) hours if needed Active End: 09-23-2022 take 1 tablet by mouth twice daily at mealtime naproxen sodium (ANAPROX) 220 mg tablet Take 220 mg by mouth twice daily with meals. 09/23/2022 Discontinued take 1 tablet by shon every twelve hours as needed for pain naproxen sodium (ALEVE) 220 mg tablet Take 1 tablet (220 mg total) by mouth every 12 (twelve) hours as needed for pain. 0 Active Comment on above: Take 220 mg by mouth twice daily with meals. simethicone 125 mg oral tablet (20 sources) Start: 09-14-2018 take 125 mg by mouth once daily Simethicone Active 125 MG PO Daily September 14, 2018 12:00am simethicone (Myl icon,Gas-X) 125 MG capsule Take by mouth Active Comment on above: Take by mouth. simvastatin 10 mg oral tablet (20 sources) HMG-CoA Reductase Inhibitor Start: 4 Simvastatin Active 10 MG PO November 14, 2023 12:00am Comment on above: Take 10 mg by mouth daily at bedtime. tamsulosin hydrochloride 0.4 mg oral capsule (20 sources) alpha-Adrenergic Gabi Start: 3 take 2 capsules by mouth once daily tamsulosin (FLOMAX) 0.4 mg capsule TAKE 2 CAPSULES BY MOUTH EVERY DAY 180 capsule 3 03/21/2023 Active Start: 09-14-2018 take 1 capsule by mo [facility] once daily Tamsulosin (Flomax) 0.4 mg Capsule Active 0.4 MG PO Daily September 14, 2018 12:00am take 1 capsule by [facility] every twenty-four hours in the morning tamsulosin (Flomax) 0.4 MG 24 hr capsule Take 0.4 mg by mouth in the morning. Active take 2 capsules by [facility] once daily at bedtime Tamsulosin HCl - 0.4 MG Oral Capsule TAKE 2 CAPSULE Daily At Bedtime Quantity: 180 Refills: 0 Ordered: 01-Sep-2022 DO Active Comment on above: Take 0.4 mg by mouth once daily. 2 daily tiZANidine 4 mg oral tablet (15 sources) Central alpha-2 Adrenergic Agonist Start: 3 take 1 tablet by mouth every eight hours as needed tiZANidine (ZANAFLEX) 4 mg tablet Take 4 mg by mouth three times a day as needed. 04/20/2023 Active Comment on above: Take 4 mg by mouth t hree times a day as needed. traZODone hydrochloride 50 mg oral tablet (20 sources) Serotonin Reuptake Inhibitor Start: 7 End: 3 traZODone (DESYREL) 50 mg tablet Daily 07/25/2016 Active Comment on above: Take 50 mg by mouth daily at bedtime. Daily vitamin e 180 mg oral tablet (20 sources) Start: 9 vitamin E acid succinate (VITAMIN E SUCCINATE) 268 mg (400 unit) tab Vitamin E Active 200 UNIT PO Daily September 14, 2018 12:00am 09/14/2018 Active Start: 09-14-2018 take 200 [IU] by mouth once [place] Vitamin E Active 200 UNIT PO Daily September 14, 2018 12:00am Vitamin E (Vitam in E/D-Alpha Natural) 268 MG (400 UNIT) capsule Take 400 Units by mouth in the morning. Active take 1 capsule by mouth once [place]andy [place] Vitamin E, dl, acetate, (VITAMIN E) 400 unit capsule Take 400 Units by mouth once daily. Active take 1 capsule by mouth once kandy ly Vitamin E, dl, acetate, (VITAMIN E) 400 unit capsule Take 400 Units by mouth once daily. 0 Active Comment on above: Take 400 Units by [facility] once daily. Vitamin E Active 200 UNIT PO Daily September 14, 2018 12:00am Completed/Discontinued Medications Medication Drug Class(es) Dates Sig (Normalized) Sig (Original) Acetaminophen / HYDROcodone (7 sources) Opioid Agonist Vicodin TABS JAYCEE E 1 TO 2 TABLETS EVERY 4 TO 6 HOURS NEEDED FOR PAIN. Quantity: 0 Refills: 0 Ordered: 01-Sep-2022 DO Active acetylcholine 10% solution - [facility] (1 source) Start: 03-27-2023 End: 03-27-2023 acetylcholine 10% solution - [facility] bisacodyl 5 mg delayed release oral tablet (9 sources) Stimulant Laxative take 1 tablet by mouth once daily Dulcolax [place] Laxative 5 MG Oral Tablet Delayed Release TAKE 1-2 TABLET DAILY AT BEDTIME NEEDED. Quantity: 0 Refills: 0 Ordered: 01-Sep-2022 DO Active Calcium Citrate (9 sources) Calcium Citrate + D TABS Take 1 tablet daily Quantity: 0 Refills: 0 Ordered: 01-Sep-2022 DO Active cholecalciferol 5000 unt / folic acid 1 mg oral tablet (15 sources) Vitamin D End: 08-25-2022 vitamin D3-folic acid 125 mcg (5,000 unit)-1 mg tab Take by mouth. 08/25/2022 Discontinued (Discontinued by Patient) vitamin D3-folic acid 125 mcg (5,000 unit)-1 mg tab Take by mouth. 0 Active Comment on above: Take by mouth. 1 ml denosumab 60 mg/ml prefilled syringe (20 sources) RANK Ligand Inhibitor Start: 12-20-2023 End: 12-20-2023 denosumab 60 mg injection (PROLIA) Start: 11-19-2020 End: 11-04-2023 denosumab (PROLIA) injection 60 mg Start: 09-14-2018 Denosumab (Pro jose) 60 mg/mL Syringe Active 60 MG SUBCUT EVERY 6 MONTHS September 14, 2018 12:00am inject 60 mg by subc utaneous injection once denosumab (PROLIA) 60 mg/mL Inject 60 mg subcutaneously one time only. Active Comment on above: Inject 60 mg subcuta neously one time only. enzalutamide 40 mg oral tablet (17 sources) [...] tablets (160 mg) by mouth once daily. escitalopram 20 mg oral tablet (20 sources) Serotonin Reuptake Inhibitor Start: 9 End: 4 take 10 mg by mouth once daily Escitalopram Oxalate (Lexapro) 20 mg Tablet Discontinued 10 MG PO Daily September 14, 2018 12:00am November 14, 2023 2:15pm End: 05-17-2023 take 1 tablet by mouth once daily escitalopram (Lexapro) 20 MG tablet Take 20 mg by mouth Daily Active Comment on above: Take 20 mg by mouth once daily. hydroCHLOROthiazide 25 mg oral tablet (20 sources) Thiazide Diuretic Start: 019 End: take 25 mg by mouth once daily Hydrochlorothiazide Discontinued 25 MG PO Daily September 14, 2018 12:00am November 14, 2023 2:15pm HYDROCHLOROTHIAZ MARY ORAL Take by mouth. Active Comment on above: Take 25 mg by mouth once daily. iv contrast (will be provided with radiology test) (1 source) Start: 06-07-2022 End: 06-08-2022 iv contrast (will be provided with radiology [...] in the MR contrast administration guidelines link. 1.5 ml leuprolide acetate 30 mg/ml prefilled syringe (20 sources) Gonadotropin Releasing Hormone Receptor Agonist Start: 09-14-2018 End: 12-20-2023 leuprolide acetate (6 month) 45 mg IM syringe kit (LUPRON) inject 45 mg by intr amuscular injection once leuprolide, 6 month, (LUPRON DEPOT, 6 MONTH,) sykt IM syringe kit Inject 45 mg intramuscularly one time only. Active Lupron SOLN 1 in jection every 6 months Quantity: 0 Refills: 0 Ordered: 01-Sep-2022 DO Active Comment on above: Inject 45 mg intramu scularly one time only. levoFLOXacin 500 mg oral tablet (3 sources) Quinolone Antimicrobial Start: 05-24-19 23 take 1 tablet by mouth once daily levoFLOXacin (LEVAQUIN) 500 mg tablet Take 500 mg by mouth once daily. 0 05/24/2022 Active Comment on above: Take 500 mg by mouth once daily. losartan potassium 50 mg oral tablet (5 sources) Angiotensin 2 Receptor Gabi End: 08-18-19 losartan (COZAAR) 50 mg tablet Take 75 mg by mouth. 0 08/18/2023 Discontinued (Discontinued by Patient) take 2 tablets by mouth in the m orning losartan (COZAAR) 50 mg tablet Take 2 tablets (100 mg total) by mouth in the morning. 0 Active Comment on above: Take 75 mg by mouth. Multi Vitamin TABS (9 sources) Multi Vitamin TA BS TAKE 1 TABLET DAILY. Quantity: 0 Refills: 0 Ordered: 01-Sep-2022 DO Active oxybutynin chloride 5 mg oral tablet (20 sources) Cholinergic Muscarinic Antagonist End: take 1 tablet by mouth twice daily oxybutynin (DITROPAN) 5 mg tablet Take 5 mg by mouth twice daily. 05/17/2023 Discontinued take 1 tablet by mouth twice kandy ly oxybutynin XL (DITROPAN XL) 5 mg 24 hr tablet Take 5 mg by mouth twice daily. 0 Active Comment on above: Take 5 mg by mouth t wice daily. pantoprazole 40 mg delayed release oral tablet (20 sources) Proton Pump Inhibitor Start: 04-30-20 End: 05-17-19 take 1 tablet by mouth once daily pantoprazole DR (PROTONIX) 40 mg tablet Take 40 mg by mouth once daily. 04/30/2022 05/17/2023 Discontinued Comment on above: Take 40 mg by mouth once daily. potassium chloride 10 meq extended release oral capsule (10 sources) Start: 06-28-19 End: 12-20-19 take 1 capsule by mouth twice daily at mealtime potassium chloride SR (MICRO-K) 10 mEq CR capsule TAKE 1 CAPSULE BY MOUTH TWICE A DAY WITH FOOD FOR 30 DAYS 0 06/28/2023 12/20/2023 Discontinued Comment on above: TAKE 1 CAPSULE BY [facility] TWICE A DAY WITH FOOD FOR 30 DAYS 24 hr tolterodine tartrate 4 mg extended release oral capsule (9 sources) Cholinergic Muscarinic Antagonist Start: 09-15-19 tolterodine ER (DETROL LA) 4 mg 24 hr capsule 4 mg. 0 09/14/2018 Active Start: 09-14-2018 End: 11-14-2023 take 1 capsule by mouth once daily Tolterodine (Detrol La) 4 mg Capsule,Extended Release 24hr Discontinued 4 MG PO Daily September 14, 2018 12:00am November 14, 2023 2:15pm Comment on above: 4 mg. Daily traMADol hydrochloride 50 mg oral tablet (2 sources) Opioid Agonist Start: 10-02-2018 End: 11-14-2023 Tramadol Discontinued 50 MG PO every 6 to 8 hours 01 12October 02, 2018 12:00am November 14, 2023 2:15pm Problems Active Problems Problem Classification Problem Date Documented Date Episodic/Chronic Aortic; peripheral; and visceral artery aneurysms (4 sources) Abdominal aortic aneurysm; Translations: [Abdominal aortic aneurysm (AAA)] Onset: 04-26-2024 11-14-2023 Chronic Blindness and vision defects (6 sources) Diplopia; [...] Translations: [BRADYCARDIA UNSPECIFIED] Onset: 08-02-2022 Episodic Cataract (3 sources) Bilateral pseudophakia; Translations: [Presence of intraocular lens] Chronic Chronic obstructive pulmonary disease and bronchiectasis (20 sources) Chronic obstructive lung disease; Translations: [Chronic obstructive pulmonary disease, unspecified] Onset: 12-11-2017 06-23-2021 Chronic Conduction disorders (5 sources) First degree atrioventricular block; Translations: [Atrioventricular block, first degree] Onset: 06-08-2023 08-02-2021 Chronic Disorders of lipid metabolism (20 sources) [...] Mood disorders; Translations: [DEPRESSION UNSPECIFIED] Onset: 08-04-2022 Mycoses (2 sources) Onychomycosis; Translations: [Tinea unguium] 05-01-2024 Episodic Nutritional deficiencies (1 source) Vitamin D deficiency, unspecified; Translations: [VITAMIN D DEFICIENCY UNSPECIFIED] Onset: 03-28-2022 Chronic Occlusion or stenosis of precerebral arteries (5 sources) Bilateral stenosis of carotid arteries; Translations: [Occlusion and stenosis of bilateral carotid arteries] Onset: 11-14-2023 11-14-2023 Chronic Osteoarthritis (3 sources) Arthritis; Translations: [Unspecified osteoarthritis, unspecified site] Onset: 09-20-2016 09-20-2016 Chronic Other aftercare (1 source) intermediate frame tender (current) use of aspirin; Translations: [[facility] CURRENT USE OF ASPIRIN] Onset: 08-04-2022 Episodic Other aftercare (1 source) Other joint terminal attack controller (current) drug therapy; Translations: [[facility] CURRENT DRUG THERAPY] Onset: 08-04-2022 Episodic Other [...] Episodic Other ear and sense organ disorders (3 sources) Hearing loss; Translations: [Unspecified hearing loss, unspecified ear] Onset: 09-20-2016 08-01-2022 Chronic Other eye disorders (2 sources) Bilateral posterior vitreous detachment; Translations: [Vitreous degeneration, bilateral] Chronic Other eye disorders (1 source) Tear film insufficiency; Translations: [Dry eye syndrome of bilateral lacrimal glands] Episodic Other non-traumatic joint disorders (1 source) Pain in right hip joint; Translations: [Pain in right hip] 12-20-2023 Episodic Other non-traumatic joint disorders (1 source) Pain in right hip; Translations: [Pain in right hip] Onset: 01-10-2024 Episodic Other nutritional; endocrine; and metabolic disorders (1 source) Hypercalcemia; Translations: [Hypercalcemia] 12-20-2023 Chronic Other screening for suspected conditions (not mental disorders or infectious disease) (4 sources) Computed tomography result abnormal; Translations: [Abnormal findings on diagnostic imaging of other specified body structures] Onset: 05-17-2016 Resolved: 09-20-2016 08-01-2022 Chronic Other skin disorders (2 sources) Callosity; Translations: [Corns and callosities] 05-01-2024 Episodic Other upper respiratory disease (1 source) Nasal congestion; Translations: [NASAL CONGESTION] Onset: 05-20-2022 Episodic Peripheral and visceral atherosclerosis (4 sources) Peripheral vascular disease, unspecified; Translations: [Peripheral vascular disease, unspecified] Onset: 04-26-2024 05-01-2024 Chronic Residual codes; unclassified (9 sources) Body mass index 20-24 - normal; Translations: [Body Mass Index between 19-24, adult] Episodic Substance-related disorders (17 sources) Nicotine dependence, cigarettes, uncomplicated; Translations: [Smokes tobacco daily] Onset: 05-17-2016 08-01-2022 Chronic Comment on above: 1 PPD; Transient cerebral ischemia (1 source) Transient cerebral ischemic attack, unspecified; Translations: [TRANS CERBRAL ISCHEMIC ATTACK UNS] Onset: 08-02-2022 Chronic Unclassified (4 sources) CONTACT W/AND (SUSP) EXPOS COVID-19; Translations: [CONTACT W/AND (SUSP) EXPOS COVID-19] Onset: 05-20-2022 Unclassified (4 sources) COUGH, UNSPECIFIED; Translations: [COUGH, UNSPECIFIED] Onset: 11-21-2021 Unclassified (1 source) Malignant neoplasm of urinary bladder, unspecified site (CMS-HCC) [C67.9] Onset: 12-19-2023 Varicose veins of lower extremity (2 sources) Varicose veins of lower extremity; Translations: [Asymptomatic varicose veins of bilateral lower extremities] 05-01-2024 Episodic Past or Other Problems Problem Classification Problem Date Documented Da te Episodic/Chronic Calculus of urinary tract (5 sources) Personal history of urinary calculi; Translations: [...] Translations: [Gross hematuria] Onset: 06-02-2011 06-02-2011 Episodic Hyperplasia of prostate (11 sources) Benign prostatic hyperplasia; Translations: [Benign prostatic hyperplasia without lower urinary tract symptoms] Resolved: 06-23-2021 06-23-2021 Chronic Nonspecific chest pain (4 sources) Chest pain, unspecified; Translations: [CHEST PAIN UNSPECIFIED] Onset: 03-24-2022 Episodic Other bone disease and musculoskeletal deformities (20 sources) Osteopenia; Translations: [Other specified disorders of bone density and structure, multiple sites] Onset: 09-20-2016 Episodic Other bone disease and musculoskeletal deformities (1 source) Other specified disorders of bone density and structure, multiple sites; Translations: [Other specified disorders of bone density [...] conditions (not mental disorders or infectious disease) (5 sources) Patient encounter status; Translations: [Encounter for screening for other disorder] Onset: 05-17-2016 12-07-2022 Episodic Residual codes; unclassified (3 sources) At risk of disease; Translations: [Other specified personal risk factors, not elsewhere classified] Onset: 02-22-2017 02-22-2017 Episodic Unclassified (1 source) CONTACT W/AND (SUSP) EXPOS COVID-19; Translations: [CONTACT W/AND (SUSP) EXPOS COVID-19] Onset: 05-17-2022 Unclassified (1 source) COUGH, UNSPECIFIED; Translations: [COUGH, UNSPECIFIED] Onset: 11-17-2021 Results Test Name Value Interpretation Reference Range Facility CNOVon 02-15-2024 CNOV Office Visit ([facility] ) JM BARROW ([id number]) 1945 M Date Time Provider Department 02/15/24 2:00 PM Ace GUZMAN During your visit today, we recorded the following information about you: Temperature Pulse Respiration Blood pressure 97.8 degrees 51/minute 16/minute 131/77 Weight 78.4 kg Ace Guzman MD 02/22/2024 1:19 PM Signed Radiation Oncology - Follow Up [...] TUR undergoing surveillance. INTERVAL HISTORY: Doing well. Denies new problems. No hematuria. Occasional slower flow. No dysuria. Denies any skeletal related pain or discomfort other than arthritic. RADIOLOGY: [facility]MA PET scan 05/12/2023: PSMA positive [...] neoplastic process PSA HISTORY: PSA Date Value 02/12/2024 0.97 ng/mL 12/14/2023 0.92 ng/mL 10/16/2023 0.94 ng/mL 08/15/2023 0.72 ng/mL 02/03/2014 0.17 ng/mL 11/12/2013 <0.06 07/15/2013 [...] Reactions Chlorhexidine Rash Hibaclens [Other] Rash MEDICATIONS: bicalutamide (CASODEX) 50 mg tablet take 1 tablet by mouth every day acyclovir (ZOVIRAX) 5 % ointment APPLY EXTERNALLY EVERY 3 HOURS *6 TIMES A DAY* NEEDED albuterol HFA (PROVENTIL HFA, VENTOLIN HFA) 90 mcg/actuation inhaler INHALE 2 PUFFS BY MOUTH 4 TIMES A DAY Cholecalciferol, Vitamin D3, 50 mcg (2,000 unit) cap 2,000 Units. Ciclopirox (LOPROX) 0.77 % gel APPLY TO BOTH FEET AND TOE WEBBING TWICE A DAY clotrimazole-betamethasone (LOTRISONE) cream APPLY 1 APPLICATION EXTERNALLY TWICE A DAY doxazosin (CARDURA) 2 mg tablet Take 3 tablets by mouth every afternoon. multivitamin tablet Take 1 tablet by mouth once daily. mupirocin (BACTROBAN) 2 % ointment Apply to affected area two times a day. APPLY TO AFFECTED AREA tiZANidine (ZANAFLEX) 4 mg tablet Take 4 mg by mouth three times a day as needed. traZODone (DESYREL) 50 mg tablet Daily vitamin E acid succinate (VITAMIN E SUCCINATE) 268 mg (400 unit) tab Vitamin E Active 200 UNIT PO Daily September 14, 2018 12:00am simvastatin (ZOCOR) 10 mg tablet Take 10 mg by mouth daily at bedtime. irbesartan (AVAPRO) 75 mg tablet Take 75 mg by mouth daily at bedtime. metoprolol succinate ER (TOPROL XL) 25 mg [...] denosumab (PROLIA) 60 mg/mL Inject 60 mg subcutan (more content not included)... Normal [facility] CNOVSPon 02-15-2024 CNOVSP Visit (SP) Office ([place] [facility]) JM BARROW ([id number]) 1945 M Date Time Provider Department 02/15/24 2:15 PM JOSE FRANCISCO BROUSSARD During your visit today, we recorded the following information about you: Temperature Pulse Respiration Blood pressure 97.8 degrees 51/minute 16/minute 131/77 Weight Height 78.4 kg 1.778 m Jose Francisco Broussard MD 02/16/2024 5:43 AM Signed PATIENT NAME: Jm Barrow DATE: 02/15/2024 PRIMARY CARE PHYSICIAN: Arline Orosco MD OTHER PHYSICIANS: Dr. Guzman, Dr. Leroy Shaw, Dr. Guzman, Dr. Gifford, Dr. James Robb Portions of this encounter note have been copied from the note from 12/20/2023 and has been updated where appropriate, and reflect my current medical decision making from today. CC: This is a 78 year old male with recurrent prostate cancer, seen for scheduled follow-up. INTERIM HISTORY: At the patient's last visit here he complained of right hip pain. X-ray was unremarkable, and repeat bone density exam showed improvement. The pain has improved and he has had no further problems. Overall he feels fairly well today with no new complaints. He remains on treatment with Lupron plus bicalutamide, and is tolerating it well. MEDICATIONS: Current Outpatient Medications Medication Sig bicalutamide (CASODEX) 50 mg tablet take 1 tablet by mouth every day acyclovir (ZOVIRAX) 5 % ointment APPLY EXTERNALLY EVERY 3 HOURS *6 TIMES A DAY* NEEDED albuterol HFA (PROVENTIL HFA, VENTOLIN HFA) 90 mcg/actuation inhaler INHALE 2 PUFFS BY MOUTH 4 TIMES A DAY Cholecalciferol, Vitamin D3, 50 mcg (2,000 unit) cap 2,000 Units. Ciclopirox (LOPROX) 0.77 % gel APPLY TO BOTH FEET AND TOE WEBBING TWICE A DAY clotrimazole-betamethasone (LOTRISONE) cream APPLY 1 APPLICATION EXTERNALLY TWICE A DAY doxazosin (CARDURA) 2 mg tablet Take 3 tablets by mouth every afternoon. multivitamin tablet Take 1 tablet by mouth once daily. mupirocin (BACTROBAN) 2 % ointment Apply to affected area two times a day. APPLY TO AFFECTED AREA tiZANidine (ZANAFLEX) 4 mg tablet Take 4 mg by mouth three times a day as needed. traZODone (DESYREL) 50 mg tablet Daily vitamin E acid succinate (VITAMIN E SUCCINATE) 268 mg (400 unit) tab Vitamin E Active 200 UNIT PO Daily September 14, 2018 12:00am simvastatin (ZOCOR) 10 mg tablet Take 10 mg by mouth daily at bedtime. irbesartan (AVAPRO) 75 mg tablet Take 75 mg by mouth daily at bedtime. metoprolol succinate ER (TOPROL XL) 25 mg [...] INSERT LENS,EX Bilateral 06/2019 Dr. Alfa [place], [place] TONSILLECTOMY HX FAMILY HISTORY: FAMILY HISTORY Problem Relation Age of Onset Colon Cancer Mother GI Mother Diabetes Mother Cancer Father Pancreatic or Liver Diabetes Father SOCIAL HISTORY: Social History Tobacco Use Smoking status: Every Day Current packs/day: 1.00 Average packs/day: 1 pack/day for 40.0 years (40.0 ttl pk-yrs) Types: Cigarettes Passive exposure: Current Smokeless tobacco: Never Vaping Use Vaping status: Never Used Substance Use Topics Alcohol use: No Drug use: Never Comment: not asked COMPLETE REVIEW OF SYSTEMS: CONSTITUTION: Negative for pain, fatigue, weight loss, or appetite loss. EENT: Negative for mouth soreness, antibiotics use, ep (more content not included)... Normal [facility] JM BARR[facility] ([id number]) 1945 M Date Time Provider Department 02/15/24 Ace GUZMAN During your visit today, we recorded the following information about you: Lam Mills 02/15/2024 2:46 PM Signed This form is used for MAIN CAMPUS APPOINTMENTS ONLY. Is this request for a [facility] [place] PET scan appointment? Yes: [place] Tile Sorter: Lam Mills Requesting Person (Last Name, First Name): Fox Guzman Area Code + Phone/Pager: [phone] Who do we call to schedule this appointment? Other Contact: PSMA PET to be done in [place]. Route to [facility] [place] for scheduling Requesting Staff Fox Guzman Area Code + Phone/Pager: [phone] PET Orders (A delay in scheduling will [...] NO Send requests to P COORD REVIEW Lam Marcos 02/15/2024 2:48 PM Signed Please disregard this encounter. Patient does not need scan until May. Will resend closer to date requested. Allergies As of Date: 02/15/2024 Noted Allergy Reaction CHLORHEXIDINE 05/21/2013 2 - Rash hibaclens [Other] 06/02/2011 2 - Rash Date Reviewed: 02/15/2024 Reviewed by: Amina Means MA - Fully Assessed Prescriptions as of 02/15/2024 - HYDROCHLOROTHIAZIDE ORAL Take by mouth. - bicalutamide (CASODEX) 50 mg tablet take 1 tablet by mouth every day - acyclovir (ZOVIRAX) 5 % ointment APPLY EXTERNALLY EVERY 3 HOURS *6 TIMES A DAY* NEEDED - albuterol HFA (PROVENTIL HFA, VENTOLIN HFA) 90 mcg/actuation inhaler INHALE 2 PUFFS BY MOUTH 4 TIMES A DAY - Cholecalciferol, Vitamin D3, 50 mcg (2,000 unit) cap 2,000 Units. - Ciclopirox (LOPROX) 0.77 % gel APPLY TO BOTH FEET AND TOE WEBBING TWICE A DAY - clotrimazole-betamethasone (LOTRISONE) cream APPLY 1 APPLICATION EXTERNALLY TWICE A DAY - doxazosin (CARDURA) 2 mg tablet Take 3 tablets by mouth every afternoon. - multivitamin tablet Take 1 tablet by mouth once daily. - mupirocin (BACTROBAN) 2 % ointment Apply to affected area two times a day. APPLY TO AFFECTED AREA - tiZANidine (ZANAFLEX) 4 mg tablet Take 4 mg by mouth three times a day as needed. - traZODone (DESYREL) 50 mg tablet Daily - vitamin E acid succinate (VITAMIN E SUCCINATE) 268 mg (400 unit) tab Vitamin E Active 200 UNIT PO Daily September 14, 2018 12:00am - simvastatin (ZOCOR) 10 mg tablet Take 10 mg by mouth daily at bedtime. - irbesartan (AVAPRO) 75 mg tablet Take 75 mg by mouth daily at bedtime. - metoprolol succinate ER (TOPROL XL) 25 mg 24 hr tablet Take 25 mg by mouth once daily. - fluticasone-vilanterol (BREO ELLIPTA) 100-25 mcg/dose inhaler Inhale 1 Inhalation as instructed once daily. 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] 06/23/2021 Osteopenia of multiple sites [M85.89] 09/22/2022 Encounter Status:Closed by LAM MILLS on 02/15/24 Normal [facility] CBC W Auto Differential pane l (Bld)on 02-12-2024 Basophils (Bld) [#/Vol] 10*3/uL Normal <0.11 [facility] Comment on above: Order Comment: Speci men Type: BLOOD SPECIMEN Ordering Facility: [facility] Address: [address] [place] [address] Performed By: #### 2 4321-2 #### [facility] CLIA [id number] [address] [place] [address] Basophils/100 WBC (Bld) 0.3 % Normal [facility] Comment on above: Order Comment: Speci men Type: BLOOD SPECIMEN Ordering Facility: [facility] Address: [address] [place] [address] Performed By: #### 2 4321-2 #### [facility] CLIA [id number] [address] [place] [address] Differential cell count method Nom (Bld) Auto Normal [facility] Comment on above: Order Comment: Speci men Type: BLOOD SPECIMEN Ordering Facility: [facility] Address: [facility] [place] [address] Performed By: #### 2 4321-2 #### [facility] CLIA [id number] [address] [place] [address] Eosinophils (Bld) [#/Vol] 0.41 10*3/uL Normal <0.46 [facility] Comment on above: Order Comment: Speci men Type: BLOOD SPECIMEN Ordering Facility: [facility] Address: [address] [place] [address] Performed By: #### 2 4321-2 #### [facility] CLIA [id number] [address] [place] [address] Eosinophils/100 WBC (Bld) 6.5 % Normal [facility] Comment on above: Order Comment: Speci men Type: BLOOD SPECIMEN Ordering Facility: [facility] Address: [address] [place] [address] Performed By: #### 2 4321-2 #### [facility] CLIA [id number] [address] [place] [address] Erythrocyte distribution width (RBC) [Ratio] 12.2 % Normal 11.5-15.0 [facility] Comment on above: Order Comment: Speci men Type: BLOOD SPECIMEN Ordering Facility: [facility] Address: [address] [place] [address] Performed By: #### 2 4321-2 #### [facility] CLIA [id number] [address] [place] [address] Hematocrit (Bld) [Volume fraction] 40.1 % Normal 39.0-51.0 [facility] Comment on above: Order Comment: Speci men Type: BLOOD SPECIMEN Ordering Facility: [facility] Address: [address] [place] [address] Performed By: #### 2 4321-2 #### [facility] CLIA [id number] [address] [place] [address] Hemoglobin (Bld) [Mass/Vol] 13.9 g/dL Normal 13.0-17.0 [facility] Comment on above: Order Comment: Speci men Type: BLOOD SPECIMEN Ordering Facility: [facility] Address: [address] [place] [address] Performed By: #### 2 4321-2 #### [facility] CLIA [id number] [address] [place] [address] Immature granulocytes (Bld) [#/Vol] 10*3/uL Normal <0.10 [facility] Comment on above: Order Comment: Speci men Type: BLOOD SPECIMEN Ordering Facility: [facility] Address: [address] [place] [address] Performed By: #### 2 4321-2 #### [facility] CLIA [id number] [address] [place] [address] Immature granulocytes/100 WBC (Bld) 0.3 % Normal [facility] Comment on above: Order Comment: Speci men Type: BLOOD SPECIMEN Ordering Facility: [facility] Address: [address] [place] [address] Performed By: #### 2 4321-2 #### [facility] CLIA [id number] [address] [place] [address] Lymphocytes (Bld) [#/Vol] 1.68 10*3/uL Normal 1.00-4.00 [facility] Comment on above: Order Comment: Speci men Type: BLOOD SPECIMEN Ordering Facility: [facility] Address: [address] [place] [address] Performed By: #### 2 4321-2 #### [facility] CLIA [id number] [address] [place] [address] Lymphocytes/100 WBC (Bld) 26.8 % Normal [facility] Comment on above: Order Comment: Speci men Type: BLOOD SPECIMEN Ordering Facility: [facility] Address: [address] [place] [address] Performed By: #### 2 4321-2 #### [facility] CLIA [id number] [address] [place] [address] MCH (RBC) [Entitic mass] 31.7 pg Normal 26.0-34.0 [facility] Comment on above: Order Comment: Speci men Type: BLOOD SPECIMEN Ordering Facility: [facility] Address: [address] [place] [address] Performed By: #### 2 4321-2 #### [facility] CLIA [id number] [address] [place] [address] MCHC (RBC) [Mass/Vol] 34.7 g/dL Normal 30.5-36.0 [facility] Comment on above: Order Comment: Speci men Type: BLOOD SPECIMEN Ordering Facility: [facility] Address: [address] [place] [address] Performed By: #### 2 4321-2 #### [facility] CLIA [id number] [address] [place] [address] MCV (RBC) [Entitic vol] 91.6 fL Normal 80.0-100.0 [facility] Comment on above: Order Comment: Speci men Type: BLOOD SPECIMEN Ordering Facility: [facility] Address: [address] [place], [place] [address] Performed By: #### 2 4321-2 #### [facility] CLIA [id number] [address] [place] [address] Monocytes (Bld) [#/Vol] 0.62 10*3/uL Normal <0.87 [facility] Comment on above: Order Comment: Speci men Type: BLOOD SPECIMEN Ordering Facility: [facility] Address: [address] [place] [address] Performed By: #### 2 4321-2 #### [facility] CLIA [id number] [address] [place] [address] Monocytes/100 WBC (Bld) 9.9 % Normal [facility] Comment on above: Order Comment: Speci men Type: BLOOD SPECIMEN Ordering Facility: [facility] Address: [address] [place] [address] Performed By: #### 2 4321-2 #### [facility] CLIA [id number] [address] [place] [address] Neutrophils (Bld) [#/Vol] 3.51 10*3/uL Normal 1.45-7.50 [facility] Comment on above: Order Comment: Speci men Type: BLOOD SPECIMEN Ordering Facility: [facility] Address: [address] [place] [address] Performed By: #### 2 4321-2 #### [facility] CLIA [id number] [address] [place] [address] Neutrophils/100 WBC (Bld) 56.2 % Normal [facility] Comment on above: Order Comment: Speci men Type: BLOOD SPECIMEN Ordering Facility: [facility] Address: [address] [place] [address] Performed By: #### 2 4321-2 #### [facility] CLIA [id number] [address] [place] [address] Nucleated RBC (Bld) [#/Vol] 10*3/uL Normal <0.01 [facility] Comment on above: Order Comment: Speci men Type: BLOOD SPECIMEN Ordering Facility: [facility] Address: [address] [place] [address] Performed By: #### 2 4321-2 #### [facility] CLIA [id number] [address] [place] [address] Nucleated RBC/100 WBC (Bld) [Ratio] 0.0 /100 WBC Normal [facility] Comment on above: Order Comment: Speci men Type: BLOOD SPECIMEN Ordering Facility: [facility] Address: [address] [place] [address] Performed By: #### 2 4321-2 #### [facility] CLIA [id number] [address] [place] [address] Platelet mean volume (Bld) [Entitic vol] 9.2 fL Normal 9.0-12.7 [facility] Comment on above: Order Comment: Speci men Type: BLOOD SPECIMEN Ordering Facility: [facility] Address: [address] [place] [address] Performed By: #### 2 4321-2 #### [facility] CLIA [id number] [address] [place] [address] Platelets (Bld) [#/Vol] 185 10*3/uL Normal 150-400 [facility] Comment on above: Order Comment: Speci men Type: BLOOD SPECIMEN Ordering Facility: [facility] Address: [address] [place] [address] Performed By: #### 2 4321-2 #### [facility] CLIA [id number] [address] [place] [address] RBC (Bld) [#/Vol] 4.38 10*6/uL Normal 4.20-6.00 [facility] Comment on above: Order Comment: Speci men Type: BLOOD SPECIMEN Ordering Facility: [facility] Address: [address] [place] [address] Performed By: #### 2 4321-2 #### [facility] CLIA [id number] [address] [place] [address] WBC (Bld) [#/Vol] 6.26 10*3/uL Normal 3.70-11.00 [facility] Comment on above: Order Comment: Speci men Type: BLOOD SPECIMEN Ordering Facility: [facility] Address: [address] [place] [address] Performed By: #### 2 4321-2 #### [facility] CLIA [id number] [address] [place] [address] Comprehensive metabolic 2000 panelon 02-12-2024 Albumin [Mass/Vol] 4.4 g/dL Normal 3.9-4.9 [facility] Comment on above: Order Comment: Speci men Type: BLOOD SPECIMENOrdering Facility: [facility] Address: [address] [place] [address] Performed By: #### 2 4323-8 ####[facility] LABCLIA [id number] [place] [address] ALP [Catalytic activity/Vol] 52 U/L Normal 38-113 [facility] Comment on above: Order Comment: Speci men Type: BLOOD SPECIMENOrdering Facility: [facility] Address: [address] [place] [address] Performed By: #### 2 4323-8 ####[facility] LABCLIA [id number] [place] [address] ALT [Catalytic activity/Vol] 9 U/L Low 10-54 [facility] Comment on above: Order Comment: Speci men Type: BLOOD SPECIMENOrdering Facility: [facility] Address: [address] [place] [address] Performed By: #### 2 4323-8 ####[facility] LABCLIA [id number] [place] [address] Anion gap [Moles/Vol] 10 mmol/L Normal 8-15 [facility] Comment on above: Order Comment: Speci men Type: BLOOD SPECIMENOrdering Facility: [facility] Address: [address] [place] [address] Performed By: #### 2 4323-8 ####[facility] LABCLIA [id number] [place] [address] AST [Catalytic activity/Vol] 15 U/L Normal 14-40 [facility] Comment on above: Order Comment: Speci men Type: BLOOD SPECIMENOrdering Facility: [facility] Address: [address] [place] [address] Performed By: #### 2 4323-8 ####[facility] LABCLIA [id number] [place] [address] Bilirubin [Mass/Vol] 0.8 mg/dL Normal 0.2-1.3 [facility] Comment on above: Order Comment: Speci men Type: BLOOD SPECIMENOrdering Facility: [facility] Address: [address] [place], [place] [address] Performed By: #### 2 4323-8 ####[facility] LABCLIA [id number] [place] [address] Calcium [Mass/Vol] 10.4 mg/dL High 8.5-10.2 [facility] Comment on above: Order Comment: Speci men Type: BLOOD SPECIMENOrdering Facility: [facility] Address: [address] [place] [address] Performed By: #### 2 4323-8 ####[facility] LABCLIA [id number] [place] [address] Chloride [Moles/Vol] 106 mmol/L Normal 98-107 [facility] Comment on above: Order Comment: Speci men Type: BLOOD SPECIMENOrdering Facility: [facility] Address: [address] [place] [address] Performed By: #### 2 4323-8 ####[facility] LABCLIA [id number] [place] [address] CO2 [Moles/Vol] 28 mmol/L Normal 22-30 [facility] Comment on above: Order Comment: Speci men Type: BLOOD SPECIMENOrdering Facility: [facility] Address: [address] [place] [address] Performed By: #### 2 4323-8 ####[facility] LABCLIA [id number] [place] [address] Creatinine [Mass/Vol] 1.04 mg/dL Normal 0.73-1.22 [facility] Comment on above: Order Comment: Speci men Type: BLOOD SPECIMENOrdering Facility: [facility] Address: [address] [place] [address] Performed By: #### 2 4323-8 ####[facility] LABCLIA [id number] [place] [address] Creatinine and Glomerular filtration rate.predicted panel (S/P/Bld) 74 mL/min/1.73m??? Normal >=60 [facility] Comment on above: Order Comment: Speci men Type: BLOOD SPECIMENOrdering Facility: [facility] Address: [address] [place] [address] Result Comment: Jessica mated Glomerular Filtration Rate [...] actual GFR. Performed By: #### 2 4323-8 ####[facility] LABCLIA [id number] [place] [address] Glucose [Mass/Vol] 102 mg/dL High 74-99 [facility] Comment on above: Order Comment: Aroldo rahman Type: BLOOD SPECIMENOrdering Facility: [facility] Address: [address] [place] [address] Result Comment: The [place] Diabetes Association (ADA) provides guidance for cutoff [...] Standards of Medical Care in Diabetes 2016, [place] [employer]. Diabetes Care. 2016.39(Suppl 1). Performed By: #### 2 4323-8 ####[facility] LABCLIA [id number] [place] [address] Potassium [Moles/Vol] 4.3 mmol/L Normal 3.7-5.1 [facility] Comment on above: Order Comment: Aroldo rahman Type: BLOOD SPECIMENOrdering Facility: [facility] Address: [address] [place] [address] Performed By: #### 2 4323-8 ####[facility] LABCLIA [id number] [place] [address] Protein [Mass/Vol] 7.3 g/dL Normal 6.3-8.0 [facility] Comment on above: Order Comment: Aroldo rahman Type: BLOOD SPECIMENOrdering Facility: [facility] Address: [address] [place] [address] Performed By: #### 2 4323-8 ####[facility] LABCLIA [id number] [place] [address] Sodium [Moles/Vol] 144 mmol/L Normal 136-144 [facility] Comment on above: Order Comment: Speci men Type: BLOOD SPECIMENOrdering Facility: [facility] Address: [address] [place] [address] Performed By: #### 2 4323-8 ####[facility] LABCLIA [id number] [place] [address] Urea nitrogen [Mass/Vol] 19 mg/dL Normal 9-24 [facility] Comment on above: Order Comment: Speci men Type: BLOOD SPECIMENOrdering Facility: [facility] Address: [address] [place] [address] Performed By: #### 2 4323-8 ####[facility] LABCLIA [id number] [place] [address] PSA SerPl-mCncon 02-12-2024 Prostate specific Ag [Mass/Vol] 0.97 ng/mL Normal <2.60 [facility] Comment on above: Order Comment: Speci men Type: BLOOD SPECIMENOrdering Facility: [facility] Address: [address] [place] [address] Result Comment: Tota l PSA test methodology used is the Electrochemiluminescence Immunoassay by [employer]. Total PSA values by differing methodologies cannot be interchanged. Performed By: #### 2 857-1 ####[facility] LABCLIA [id number] [facility] [id number] [place] [address] [place] PTH RELATED PEPTIDEon 2023 PTH RELATED PEPTIDE 2.9 pmol/L High 0.0-2.3 [facility] Comment on above: Order Comment: Speci men Type: BLOOD SPECIMENOrdering Facility: [facility] Address: [address] [place] [address] Result Comment: INTE RPRETIVE INFORMATION: Parathyroid Hormone-Related Peptide This test was developed and its performance characteristics determined by [facility]. It has not been cleared or approved by the US Food and Drug Administration. This test was performed in a CLIA certified laboratory and is intended for clinical purposes. Performed By: [facility] [address] [place] [address] Blending Operator: Adi Neal MD, PhD CLIA Number: [id number] Performed By: #### P THPEP ####[facility] [id number] [place] [address] PTH-Intact SerPl-OSS Healthon 09-3 Parathyrin.intact [Mass/Vol] 51 pg/mL Normal 15-65 [facility] Comment on above: Order Comment: Speci men Type: BLOOD SPECIMEN [facility] Address: [address] [place], [place] [address] Performed By: #### 2 4321-2 #### [facility] CLIA [id number] [address] [place], [place] [address] DEXA SCAN CENTRAL SKELETALon 01-10-2024 DEXA SCAN CENTRAL SKELETAL DEXA SCAN CENTRAL SKELETAL CLINICAL INFORMATION: Osteopenia of multiple sites; Pain of right hip. TECHNIQUE: Dual X-ray Absorptiometry (DXA) was performed. COMPARISON: 01/16/2020 FINDINGS: LUMBAR SPINE (L1-L4): BMD is 1.378 gm/cm2. Increase of 10.4% since prior. T-score is 1.1. LEFT FEMORAL NECK: BMD is 0.902 gm/cm2. T-score is -1.3. LEFT TOTAL FEMUR: BMD is 0.976 gm/cm2. T-score is -0.9. RIGHT FEMORAL NECK: BMD is 0.880 gm/cm2. T-score is -1.5. RIGHT TOTAL FEMUR: BMD is 0.928 gm/cm2. T-score is -1.2. Total mean increase of 2.5% since prior The estimated 10-year probability for a major osteoporotic fracture (utilizing FRAX) is 9.9% and for a hip fracture is 4.1%. IMPRESSION: The exam is considered to be osteopenic by the National Osteoporosis Foundation guidelines. Recommend consideration for initiation of therapy. WHO CLASSIFICATION: Normal: T-score -1.0 or above Osteopenia: T-score -1.1 to < 2.5 Osteoporosis: T-score -2.5 or lower Secondary causes of bone loss should be evaluated if clinically indicated since the etiology of low BMD cannot be determined by BMD measurement alone. The current National Osteoporosis Foundation guide recommends treating patients with FRAX ten year risk scores of greater than or equal to 3% for hip fracture or greater than or equal to 20% for major osteoporotic fracture, to reduce their fracture risk. Finalized by Ellis Bernardo MD on 01/10/2024 9:25 PM Normal [facility] CNOVSPon 12-20-2023 CNOVSP Visit (SP) Office (H EMASA) JM BARROW ([id number]) 1945 M Date Time Provider Department 12/20/23 2:00 PM MACHELLE ISADORA PRADO During your visit today, we recorded the following information about you: Temperature Pulse Respiration Blood pressure 97.2 degrees 69/minute 16/minute 135/74 Weight 80.2 kg Isadora Carty PA-C 12/20/2023 2:30 PM Signed PATIENT NAME: Jm Barrow DATE: 12/20/2023 PRIMARY CARE PHYSICIAN: Arline Orosco MD OTHER PHYSICIANS: Dr. Guzman, Dr. Leroy Shaw, Dr. Guzman, Dr. Gifford, Dr. James Robb Portions of this encounter note have been copied from Dr. Broussard's note from 08/17/2023 and has been updated where appropriate, and reflect my current medical decision making from today. CC: This is a 77 year old male with recurrent prostate cancer, seen for scheduled follow-up. INTERIM HISTORY: Jm returns for follow up. He remains on bicalutamide 50 mg daily and is tolerating it. He does report new right hip/posterior pelvic bone pain that started about 6 weeks ago. It bothers his 10-12 times a day and aleve helps some. Otherwise denies any urinary symptoms or other complaints. MEDICATIONS: Current Outpatient Medications Medication Sig bicalutamide (CASODEX) 50 mg tablet take 1 tablet by mouth every day acyclovir (ZOVIRAX) 5 % ointment APPLY EXTERNALLY EVERY 3 HOURS *6 TIMES A DAY* NEEDED albuterol HFA (PROVENTIL HFA, VENTOLIN HFA) 90 mcg/actuation inhaler INHALE 2 PUFFS BY MOUTH 4 TIMES A DAY Cholecalciferol, Vitamin D3, 50 mcg (2,000 unit) cap 2,000 Units. Ciclopirox (LOPROX) 0.77 % gel APPLY TO BOTH FEET AND TOE WEBBING TWICE A DAY clotrimazole-betamethasone (LOTRISONE) cream APPLY 1 APPLICATION EXTERNALLY TWICE A DAY doxazosin (CARDURA) 2 mg tablet Take 3 tablets by mouth every afternoon. multivitamin tablet Take 1 tablet by mouth once daily. mupirocin (BACTROBAN) 2 % ointment Apply to affected area two times a day. APPLY TO AFFECTED AREA potassium chloride SR (MICRO-K) 10 mEq CR capsule TAKE 1 CAPSULE BY MOUTH TWICE A DAY WITH FOOD FOR 30 DAYS tiZANidine (ZANAFLEX) 4 mg tablet Take 4 mg by mouth three times a day as needed. traZODone (DESYREL) 50 mg tablet Daily vitamin E acid succinate (VITAMIN E SUCCINATE) 268 mg (400 unit) tab Vitamin E Active 200 UNIT PO Daily September 14, 2018 12:00am simvastatin (ZOCOR) 10 mg tablet Take 10 [...] Rash PAST MEDICAL HISTORY: PAST MEDICAL HISTORY No date: BPH (benign prostatic hyperplasia) No date: Diplopia No date: Hypertension No date: Prostate cancer (HCC) No date: Pseudophakia of both eyes No date: Strabismus No date: Wears glasses PAST SURGICAL HISTORY: PAST SURGICAL HISTORY No date: APPENDECTOMY 11/18/2019: COLONOSCOPY 07/05/2021: EYE MUSCLE SURG PROC UNLISTED; Right Comment: 07/05/2021 - Lorenzo Archuleta MD - Recess right superior rectus by 4 mm No date: HERNIA REPAIR HX 06/2019: REMOVE CATARACT, INSERT LENS,EX; Bilateral Comment: Dr. Grimm [place], [place] No date: TONSILLECTOMY HX FAMILY HISTORY: FAMILY HISTORY Problem [...] used Substance Use Topics Alcohol use: No Dr (more content not included)... Normal [facility] Cytologyon 12-19-2023 Cytology Normal [facility] Comment on above: Result Comment: [facility] [address] [place] [address] Cytology Consultation Patient Name:JM BARROW JR.:1945 (Age: 77)Gender:MTaken:12/19/2023eported:12/20/2023 13:07Physician(s):Leroy Shaw M.D. ([phone])Copy To: Rec. #:[id number]: #[id number] Final Cytologic Diagnosis Voided urine: Atypical urothelial cells present. [facility]/12/20/2023 Interpretation performed at [facility], [address] [place] [address], License number: [id number].Electronically Signed Out By Deandre Willett MD Clinical History History of urothelial cell carcinoma. Gross Description Received was 60 mL of yellow fluid labeled as Pushpa, 47, the order states that this is a urine specimen .Preservative added. 30 mL used for Cytology. See [facility] report. Source of Specimen Voided urine Non [employer] Fee Code(s): 1; 27862 Reference Lab Test IDon 08-0 UROVYSION FOR BLADDER CANCER SEE COMMENTS 12/26/2023 10:28 AM Normal [facility] Comment on above: Result Comment: NOTE Test [...] specific probe for 9p21 ([employer] [place], [place]). This test has been modified from the heel lift gouger's instructions. Its performance characteristics were determined by [facility] in a manner consistent with CLIA requirements. This test has not been cleared or approved by the U.S. Food and Drug Administration. Reason for Referral Evaluate for urothelial carcinoma. Specimen Varies Source Urine, NOS Released By Chong Booth M.D., Ph.D. Test Performed by: [place] [id number] Pattern Scratcher: Mely Amezquita Ph.D.; CLIA# [id number] Performed By: #### 3 0896-5 #### [facility] ([id number]) [address] [place] [address] Basic metabolic 2000 panelOr dered By: Agustin Acevedo on 12-14-2023 Anion gap [Moles/Vol] 10 mmol/L 8 - 15 mmol/L [facility] Calcium [Mass/Vol] 11.3 mg/dL High 8.5 - 10. 2 mg/dL [facility] Chloride [Moles/Vol] 104 mmol/L 98 - 107 mmol/L [facility] CO2 [Moles/Vol] 29 mmol/L 22 - 30 mmol/L [facility] Creatinine [Mass/Vol] 1.13 mg/dL 0.73 - 1.22 mg/dL [facility] GFR/1.73 sq M.predicted among non-blacks MDRD (S/P/Bld) [Vol rate/Area] 68 mL/min/{1.73_m2} - PINF [facility] Comment on above: Estimated Glomerular Filtration Rate (eGFR) is calculated using the 2020 CKD-EPI creatinine equation. This equation utilizes serum creatinine, sex, and age as parameters. The creatinine assay has traceable calibration to isotope dilution-mass spectrometry. Refer to KDIGO guidelines for clinical interpretation. In patients with unstable renal function, e.g. those with acute kidney injury, the eGFR may not accurately reflect actual GFR. Glucose [Mass/Vol] 144 mg/dL High 74 - 99 mg/dL [facility] Comment on above: The [place] Diab[employer] s Association (ADA) provides guidance for cutoff values [...] Standards of Medical Care in Diabetes 2016, [place] [employer]. Diabetes Care. 2016.39(Suppl 1). Interpretation and review of laboratory results Abnormal [facility] Potassium [Moles/Vol] 3.9 mmol/L 3.7 - 5.1 mmol/L [facility] Sodium [Moles/Vol] 143 mmol/L 136 - 144 mmol/L [facility] Urea nitrogen [Mass/Vol] 27 mg/dL High 9 - 24 mg/dL [facility] Basic metabolic 2000 panelon 12-14-2023 Anion gap [Moles/Vol] 10 mmol/L Normal 8-15 [facility] Comment on above: Order Comment: Speci men Type: BLOOD SPECIMENOrdering Facility: [facility] Address: [address] [place], [place] [address] Performed By: #### 2 4321-2 ####[facility] LABCLIA [id number] [place] [address] Calcium [Mass/Vol] 11.3 mg/dL High 8.5-10.2 [facility] Comment on above: Order Comment: Speci men Type: BLOOD SPECIMENOrdering Facility: [facility] Address: [facility] [place] [id number] Performed By: #### 2 4321-2 ####[facility] LABCLIA [id number] [place] [address] Chloride [Moles/Vol] 104 mmol/L Normal 98-107 [facility] Comment on above: Order Comment: Speci men Type: BLOOD SPECIMENOrdering Facility: [facility] Address: [address] [place] [address] Performed By: #### 2 4321-2 ####[facility] LABCLIA [id number] [place] [address] CO2 [Moles/Vol] 29 mmol/L Normal 22-30 [facility] Comment on above: Order Comment: Speci men Type: BLOOD SPECIMENOrdering Facility: [facility] Address: [address] [place] [address] Performed By: #### 2 4321-2 ####[facility] LABCLIA [id number] [place] [address] Creatinine [Mass/Vol] 1.13 mg/dL Normal 0.73-1.22 [facility] Comment on above: Order Comment: Speci men Type: BLOOD SPECIMENOrdering Facility: [facility] Address: [address] [place] [address] Performed By: #### 2 4321-2 ####[facility] LABCLIA [id number] [place] [address] Creatinine and Glomerular filtration rate.predicted panel (S/P/Bld) 68 mL/min/1.73m??? Normal >=60 [facility] Comment on above: Order Comment: Speci men Type: BLOOD SPECIMENOrdering Facility: [facility] Address: [address] [place] [address] Result Comment: Jessica mated Glomerular Filtration Rate [...] reflect actual GFR. Performed By: #### 2 4321-2 ####[facility] LABCLIA [id number] [place] [address] Glucose [Mass/Vol] 144 mg/dL High 74-99 [facility] Comment on above: Order Comment: Speci men Type: BLOOD SPECIMENOrdering Facility: [facility] Address: [address] [place], [place] [address] Result Comment: The [place] Diabetes Association (ADA) provides guidance for cutoff [...] Standards of Medical Care in Diabetes 2016, [place] Diabetes Association. Diabetes Care. 2016.39(Suppl 1). Performed By: #### 2 4321-2 ####[facility] LABCLIA [id number] [place] [address] Potassium [Moles/Vol] 3.9 mmol/L Normal 3.7-5.1 [facility] Comment on above: Order Comment: Speci men Type: BLOOD SPECIMENOrdering Facility: [facility] Address: [address] [place], [place] [address] Performed By: #### 2 4321-2 ####[facility] LABCLIA [id number] [place] [address] Sodium [Moles/Vol] 143 mmol/L Normal 136-144 [facility] Comment on above: Order Comment: Speci men Type: BLOOD SPECIMENOrdering Facility: [facility] Address: [address] [place] [address] Performed By: #### 2 4321-2 ####[facility] LABCLIA [id number] [place] [address] Urea nitrogen [Mass/Vol] 27 mg/dL High 9-24 [facility] Comment on above: Order Comment: Speci men Type: BLOOD SPECIMENOrdering Facility: [facility] Address: [address] [place] [address] Performed By: #### 2 4321-2 ####[facility] LABCLIA [id number] [place] [address] CBC W Auto Differential pane l (Bld)on 12-14-2023 Basophils (Bld) [#/Vol] 0.04 10*3/uL [facility] Basophils/100 WBC (Bld) 0.6 % [facility] Differential cell count method Nom (Bld) Auto [facility] Eosinophils (Bld) [#/Vol] 0.45 10*3/uL [facility] Eosinophils/100 WBC (Bld) 7.1 % [facility] Erythrocyte distribution width (RBC) [Ratio] 12.0 % 11.5 - 15.0 % [facility] Hematocrit (Bld) [Volume fraction] 39.6 % 39.0 - 51.0 % [facility] Hemoglobin (Bld) [Mass/Vol] 14.0 g/dL 13.0 - 17.0 g/dL [facility] Immature granulocytes (Bld) [#/Vol] [facility] Immature granulocytes/100 WBC (Bld) 0.3 % [facility] Lymphocytes (Bld) [#/Vol] 1.87 10*3/uL [facility] Lymphocytes/100 WBC (Bld) 29.5 % [facility] MCH (RBC) [Entitic mass] 32.7 pg 26.0 - 34.0 pg [facility] MCHC (RBC) [Mass/Vol] 35.4 g/dL 30.5 - 36.0 g/dL [facility] MCV (RBC) [Entitic vol] 92.5 fL 80.0 - 100.0 fL [facility] Monocytes (Bld) [#/Vol] 0.66 10*3/uL [facility] Monocytes/100 WBC (Bld) 10.4 % [facility] Neutrophils (Bld) [#/Vol] 3.30 10*3/uL [facility] Neutrophils/100 WBC (Bld) 52.1 % [facility] Nucleated RBC (Bld) [#/Vol] [facility] Nucleated RBC/100 WBC (Bld) [Ratio] 0.0 % /100 WBC [facility] Platelet mean volume (Bld) [Entitic vol] 9.1 fL 9.0 - 12.7 fL [facility] Platelets (Bld) [#/Vol] 195 10*3/uL [facility] RBC (Bld) [#/Vol] 4.28 10*6/uL 4.20 - 6.0 0 m/uL [facility] WBC (Bld) [#/Vol] 6.34 10*3/uL [facility] Basophils (Bld) [#/Vol] 0.04 10*3/uL Normal <0.11 [facility] Comment on above: Order Comment: Speci men Type: BLOOD SPECIMENOrdering Facility: [facility] Address: [address] [place] [address] Performed By: #### 5 7021-8 ####[facility] LABCLIA [id number] [place] [address] Basophils/100 WBC (Bld) 0.6 % Normal [facility] Comment on above: Order Comment: Speci men Type: BLOOD SPECIMENOrdering Facility: [facility] Address: [address] [place] [address] Performed By: #### 5 7021-8 ####[facility] LABCLIA [id number] [place] [address] Differential cell count method Nom (Bld) Auto Normal [facility] Comment on above: Order Comment: Speci men Type: BLOOD SPECIMENOrdering Facility: [facility] Address: [address] [place] [address] Performed By: #### 5 7021-8 ####[facility] LABIA [id number] [place] [address] Eosinophils (Bld) [#/Vol] 0.45 10*3/uL Normal <0.46 [facility] Comment on above: Order Comment: Speci men Type: BLOOD SPECIMENOrdering Facility: [facility] Address: [address] [place] [address] Performed By: #### 5 7021-8 ####[facility] LABCLIA [id number] [place] [address] Eosinophils/100 WBC (Bld) 7.1 % Normal [facility] Comment on above: Order Comment: Speci men Type: BLOOD SPECIMENOrdering Facility: [facility] Address: [address] [place] [address] Performed By: #### 5 7021-8 ####[facility] LABCLIA [id number] [place] [address] Erythrocyte distribution width (RBC) [Ratio] 12.0 % Normal 11.5-15.0 [facility] Comment on above: Order Comment: Speci men Type: BLOOD SPECIMENOrdering Facility: [facility] Address: [address] [place] [address] Performed By: #### 5 7021-8 ####[facility] LABCLIA [id number] [place] [address] Hematocrit (Bld) [Volume fraction] 39.6 % Normal 39.0-51.0 [facility] Comment on above: Order Comment: Speci men Type: BLOOD SPECIMENOrdering Facility: [facility] Address: [address] [place] [address] Performed By: #### 5 7021-8 ####[facility] LABCLIA [id number] [place] [address] Hemoglobin (Bld) [Mass/Vol] 14.0 g/dL Normal 13.0-17.0 [facility] Comment on above: Order Comment: Speci men Type: BLOOD SPECIMENOrdering Facility: [facility] Address: [address] [place] [address] Performed By: #### 5 7021-8 ####[facility] LABCLIA [id number] [place] [address] Immature granulocytes (Bld) [#/Vol] 10*3/uL Normal <0.10 [facility] Comment on above: Order Comment: Speci men Type: BLOOD SPECIMENOrdering Facility: [facility] Address: [address] [place] [address] Performed By: #### 5 7021-8 ####[facility] LABCLIA [id number] [place] [address] Immature granulocytes/100 WBC (Bld) 0.3 % Normal [facility] Comment on above: Order Comment: Speci men Type: BLOOD SPECIMENOrdering Facility: [facility] Address: [address] [place] [address] Performed By: #### 5 7021-8 ####[facility] LABCLIA [id number] [place] [address] Lymphocytes (Bld) [#/Vol] 1.87 10*3/uL Normal 1.00-4.00 [facility] Comment on above: Order Comment: Speci men Type: BLOOD SPECIMENOrdering Facility: [facility] Address: [address] [place] [address] Performed By: #### 5 7021-8 ####[facility] LABCLIA [id number] [place] [address] Lymphocytes/100 WBC (Bld) 29.5 % Normal [facility] Comment on above: Order Comment: Speci men Type: BLOOD SPECIMENOrdering Facility: [facility] Address: [address] [place] [address] Performed By: #### 5 7021-8 ####[facility] LABCLIA [id number] [place] [address] MCH (RBC) [Entitic mass] 32.7 pg Normal 26.0-34.0 [facility] Comment on above: Order Comment: Speci men Type: BLOOD SPECIMENOrdering Facility: [facility] Address: [address] [place] [address] Performed By: #### 5 7021-8 ####[facility] LABCLIA [id number] [place] [address] MCHC (RBC) [Mass/Vol] 35.4 g/dL Normal 30.5-36.0 [facility] Comment on above: Order Comment: Speci men Type: BLOOD SPECIMENOrdering Facility: [facility] Address: [address] [place] [address] Performed By: #### 5 7021-8 ####[facility] LABCLIA [id number] [place] [address] MCV (RBC) [Entitic vol] 92.5 fL Normal 80.0-100.0 [facility] Comment on above: Order Comment: Speci men Type: BLOOD SPECIMENOrdering Facility: [facility] Address: [address] [place] [address] Performed By: #### 5 7021-8 ####[facility] LABIA [id number] [place] [address] Monocytes (Bld) [#/Vol] 0.66 10*3/uL Normal <0.87 [facility] Comment on above: Order Comment: Speci men Type: BLOOD SPECIMENOrdering Facility: [facility] Address: [address] [place] [address] Performed By: #### 5 7021-8 ####[facility] LABCLIA [id number] [place] [address] Monocytes/100 WBC (Bld) 10.4 % Normal [facility] Comment on above: Order Comment: Speci men Type: BLOOD SPECIMENOrdering Facility: [facility] Address: [address] [place] [address] Performed By: #### 5 7021-8 ####[facility] LABIA [id number] [place] [address] Neutrophils (Bld) [#/Vol] 3.30 10*3/uL Normal 1.45-7.50 [facility] Comment on above: Order Comment: Speci men Type: BLOOD SPECIMENOrdering Facility: [facility] Address: [address] [place] [address] Performed By: #### 5 7021-8 ####[facility] LABCLIA [id number] [place] [address] Neutrophils/100 WBC (Bld) 52.1 % Normal [facility] Comment on above: Order Comment: Speci men Type: BLOOD SPECIMENOrdering Facility: [facility] Address: [address] [place] [address] Performed By: #### 5 7021-8 ####[facility] LABCLIA [id number] [place] [address] Nucleated RBC (Bld) [#/Vol] 10*3/uL Normal <0.01 [facility] Comment on above: Order Comment: Speci men Type: BLOOD SPECIMENOrdering Facility: [facility] Address: [address] [place] [address] Performed By: #### 5 7021-8 ####[facility] LABCLIA [id number] [place] [address] Nucleated RBC/100 WBC (Bld) [Ratio] 0.0 /100 WBC Normal [facility] Comment on above: Order Comment: Speci men Type: BLOOD SPECIMENOrdering Facility: [facility] Address: [address] [place] [address] Performed By: #### 5 7021-8 ####[facility] LABCLIA [id number] [place] [address] Platelet mean volume (Bld) [Entitic vol] 9.1 fL Normal 9.0-12.7 [facility] Comment on above: Order Comment: Speci men Type: BLOOD SPECIMENOrdering Facility: [facility] Address: [address] [place] [address] Performed By: #### 5 7021-8 ####[facility] LABCLIA [id number] [place] [address] Platelets (Bld) [#/Vol] 195 10*3/uL Normal 150-400 [facility] Comment on above: Order Comment: Speci men Type: BLOOD SPECIMENOrdering Facility: [facility] Address: [address] [place] [address] Performed By: #### 5 7021-8 ####[facility] LABCLIA [id number] [place] [address] RBC (Bld) [#/Vol] 4.28 10*6/uL Normal 4.20-6.00 [facility] Comment on above: Order Comment: Speci men Type: BLOOD SPECIMENOrdering Facility: [facility] Address: [address] [place] [address] Performed By: #### 5 7021-8 ####[facility] LABCLIA [id number] [place] [address] WBC (Bld) [#/Vol] 6.34 10*3/uL Normal 3.70-11.00 [facility] Comment on above: Order Comment: Speci men Type: BLOOD SPECIMENOrdering Facility: [facility] Address: [address] [place] [address] Performed By: #### 5 7021-8 ####[facility] LABIA [id number] [place] [address] [facility] Prostate specific Ag [Mass/Vol] 0.92 ng/mL Normal <2.60 [facility] Comment on above: Order Comment: Speci men Type: BLOOD SPECIMENOrdering Facility: [facility] Address: [address] [place] [address] Result Comment: Tota l PSA test methodology used is the Electrochemiluminescence Immunoassay by [employer]. Total PSA values by differing methodologies cannot be interchanged. Performed By: #### 2 857-1 ####[facility] LABCLIA [id number] [facility] [place] [id number] [place] CNPNon 12-13-2023 CNPN Telephone (HEMASA) JM BARROW ([id number]) 1945 M Date Time Provider Department 12/13/23 UMER DALE During your visit today, we recorded the following information about you: Umer Dale RN 12/13/2023 1:41 PM Signed Pt sees Isadora next week for follow up. Would like to have his labs drawn before next week's appointment. Orders pended. Umer Dale RN Allergies As of Date: 12/13/2023 Noted Allergy Reaction CHLORHEXIDINE 05/21/2013 2 - Rash hibaclens [Other] 06/02/2011 2 - Rash Date Reviewed: 12/13/2023 Reviewed by: Isadora Carty PA-C - Fully Assessed Reason for Visit: Care Coordination [3491] Cmt: Labs Primary Visit Diagnosis:Prostate cancer (HCC) [C61] Order(s):COMPLETE BLOOD COUNT AND DIFFERENTIAL [SQCBCDIF] Order #: [id number] FUTURE BASIC METABOLIC PANEL [SQBMP] Order #: [id number] FUTURE PROSTATE-SPECIFIC ANTIGEN DIAGNOSTIC [SQPSA] Order #: [id number] FUTURE Prescriptions as of 12/15/2023 - bicalutamide (CASODEX) 50 mg tablet take 1 tablet by mouth every day - acyclovir (ZOVIRAX) 5 % ointment APPLY EXTERNALLY EVERY 3 HOURS *6 TIMES A DAY* NEEDED - albuterol HFA (PROVENTIL HFA, VENTOLIN HFA) 90 mcg/actuation inhaler INHALE 2 PUFFS BY MOUTH 4 TIMES A DAY - Cholecalciferol, Vitamin D3, 50 mcg (2,000 unit) cap 2,000 Units. - Ciclopirox (LOPROX) 0.77 % gel APPLY TO BOTH FEET AND TOE WEBBING TWICE A DAY - clotrimazole-betamethasone (LOTRISONE) cream APPLY 1 APPLICATION EXTERNALLY TWICE A DAY - doxazosin (CARDURA) 2 mg tablet Take 3 tablets by mouth every afternoon. - multivitamin tablet Take 1 tablet by mouth once daily. - mupirocin (BACTROBAN) 2 % ointment Apply to affected area two times a day. APPLY TO AFFECTED AREA - potassium chloride SR (MICRO-K) 10 mEq CR capsule TAKE 1 CAPSULE BY MOUTH TWICE A DAY WITH FOOD FOR 30 DAYS - tiZANidine (ZANAFLEX) 4 mg tablet Take 4 mg by mouth three times a day as needed. - traZODone (DESYREL) 50 mg tablet Daily - vitamin E acid succinate (VITAMIN E SUCCINATE) 268 mg (400 unit) tab Vitamin E Active 200 UNIT PO Daily September 14, 2018 12:00am - simvastatin (ZOCOR) 10 mg tablet Take 10 mg by mouth daily at bedtime. - irbesartan (AVAPRO) 75 mg tablet Take 75 mg by mouth daily at bedtime. - chlorthalidone (HYGROTON) 25 mg tablet Take 25 mg by mouth once daily. - metoprolol succinate ER (TOPROL XL) 25 mg 24 hr tablet Take 25 mg by mouth once daily. - fluticasone-vilanterol (BREO ELLIPTA) 100-25 mcg/dose inhaler Inhale 1 Inhalation as instructed once daily. 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] 06/23/2021 Osteopenia of multiple sites [M85.89] 09/22/2022 Encounter Status:Closed by UMER DALE on 12/15/23 Normal [facility] US carotid doppler BIon 07-0 US carotid doppler [facility] [address] [place] [address] Ultrasound Report Signed Patient: Jm Barrow JR MR#: [id number] : 1945 Acct:[id number] Age/Sex: 77 / M ADM Date: 11/14/23 Loc: [facility] Room: Type: [facility] Attending Dr: Clarence Gregory MD Ordering Provider: Clarence Gregory MD Date of Service: 11/14/23 US/US carotid doppler BI: I65.23 Copies to: Clarence Gregory MD CAROTID DUPLEX INDICATION: Known carotid occlusive disease PROCEDURE: Color-flow duplex scanning is used to interrogate the extracranial carotid arterial system, as well as both vertebral arteries. Both carotid bifurcations show some smooth homogeneous plaque formation. The proximal right internal carotid artery shows a highest peak systolic velocity of 62.7 cm/s with an end-diastolic velocity of 23.6 cm/s . The mid internal carotid artery measures 102 cm/s peak systolic with an end diastolic velocity of 27.3 cm/s . The distal segment measures 107 cm/s peak systolic with an end diastolic velocity of 35.4 cm/s . The velocities of the right common carotid artery are 94.8 cm/s peak systolic and 14.3 cm/s end-diastolic and 58.4 cm/s peak systolic and 14.5 cm/s end diastolic distally. The peak systolic velocity ratio of the internal to the common carotid artery is 1.13 . The external carotid artery measures 139 cm/s peak systolic. The right vertebral artery is patent at 79 cm/s peak systolic with antegrade flow. The proximal left internal carotid artery shows a highest peak systolic velocity of 85.1 cm/s with an end-diastolic velocity of 30.2 cm/s . The mid internal carotid artery measures 87.8 cm/s peak systolic with an end diastolic velocity of 32.9 cm/s . The distal segment measures 66.4 cm/s peak systolic with an end diastolic velocity of 27.4 cm/s . The velocities of the left common carotid artery are 111 cm/s peak systolic and 26.7 cm/s end-diastolic and 69.3 cm/s peak systolic and 20.6 cm/s end diastolic distally. The peak systolic velocity ratio of the internal to the common carotid artery is 0.79 . The external carotid artery measures 69.8 cm/s peak systolic. The left vertebral artery is patent at 57.4 cm/s peak systolic with antegrade flow. US/US carotid doppler BI IMPRESSION: MILD PLAQUE FORMATION IS NOTED BILATERALLY, WITH LESS THAN 50% STENOSIS OF BOTH EXTRACRANIAL INTERNAL CAROTID ARTERY. BOTH VERTEBRAL ARTERIES ARE PATENT WITH ANTEGRADE FLOW. Impression dictated by: Clarence Gregory M.D.11/14/2023 3:23 PM Dictation Location: [place] [address] Tech: Florence Prinec Transcribed By: KELLY 11/14/23 152 Dictated By: Clarence Gregory MD 11/14/23 152 Signed By: 11/14/23 1523 Normal [facility] Crys 10-17-2023 PRATIMA Telephone (EVE) JM BARROW ([id number]) 1945 M Date Time Provider Department 10/17/23 DANIEL BENÍTEZ During your visit today, we recorded the following information about you: Daniel Benítez RN 10/17/2023 11:05 AM Signed ----- Message from Jose Francisco Broussard MD sent at 10/17/2023 8:09 AM EDT ----- Please inform the patient that his PSA has increased slightly. My preference would be to continue as is with bicalutamide/Lupron. If the patient has concerns he could change to a different hormone pill (abiraterone/prednisone) but I am concerned he will have side effects similar to enzalutamide. If in agreement I will see him back as scheduled with repeat labs. Daniel Benítez RN 10/17/2023 11:06 AM Signed Pt informed of BR message and agreeable to continue with current treatment/plans of care. Pt denies any questions, needs or concerns at this time. Appointment verified. Daniel Benítez RN Allergies As of Date: 10/17/2023 Noted Allergy Reaction CHLORHEXIDINE 05/21/2013 2 - Rash hibaclens [Other] 06/02/2011 2 - Rash Date Reviewed: 08/17/2023 Reviewed by: Deyanira Haskins MA - Fully Assessed Reason for Visit: Results [95] Prescriptions as of 10/17/2023 - bicalutamide (CASODEX) 50 mg tablet take 1 tablet by mouth every day - acyclovir (ZOVIRAX) 5 % ointment APPLY EXTERNALLY EVERY 3 HOURS *6 TIMES A DAY* NEEDED - albuterol HFA (PROVENTIL HFA, VENTOLIN HFA) 90 mcg/actuation inhaler INHALE 2 PUFFS BY MOUTH 4 TIMES A DAY - Cholecalciferol, Vitamin D3, 50 mcg (2,000 unit) cap 2,000 Units. - Ciclopirox (LOPROX) 0.77 % gel APPLY TO BOTH FEET AND TOE WEBBING TWICE A DAY - clotrimazole-betamethasone (LOTRISONE) cream APPLY 1 APPLICATION EXTERNALLY TWICE A DAY - doxazosin (CARDURA) 2 mg tablet Take 3 tablets by mouth every afternoon. - multivitamin tablet Take 1 tablet by mouth once daily. - mupirocin (BACTROBAN) 2 % ointment Apply to affected area two times a day. APPLY TO AFFECTED AREA - potassium chloride SR (MICRO-K) 10 mEq CR capsule TAKE 1 CAPSULE BY MOUTH TWICE A DAY WITH FOOD FOR 30 DAYS - tiZANidine (ZANAFLEX) 4 mg tablet Take 4 mg by mouth three times a day as needed. - traZODone (DESYREL) 50 mg tablet Daily - vitamin E acid succinate (VITAMIN E SUCCINATE) 268 mg (400 unit) tab Vitamin E Active 200 UNIT PO Daily September 14, 2018 12:00am - simvastatin (ZOCOR) 10 mg tablet Take 10 mg by mouth daily at bedtime. - irbesartan (AVAPRO) 75 mg tablet Take 75 mg by mouth daily at bedtime. - chlorthalidone (HYGROTON) 25 mg tablet Take 25 mg by mouth once daily. - metoprolol succinate ER (TOPROL XL) 25 mg 24 hr tablet Take 25 mg by mouth once daily. - fluticasone-vilanterol (BREO ELLIPTA) 100-25 mcg/dose inhaler Inhale 1 Inhalation as instructed once daily. 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] 06/23/2021 Osteopenia of multiple sites [M85.89] 09/22/2022 Encounter Status:Closed by DANIEL BENÍTEZ on 10/17/23 Normal [facility] Basic metabolic 2000 panelon 10-16-2023 Anion gap [Moles/Vol] 12 mmol/L Normal 9-18 [facility] Comment on above: Order Comment: Speci men Type: BLOOD SPECIMEN [facility] Address: [address] [place] [address] Performed By: #### 2 4321-2 #### [facility] CLIA [id number] [address] [place] [address] Calcium [Mass/Vol] 11.3 mg/dL High 8.5-10.2 [facility] Comment on above: Order Comment: Speci men Type: BLOOD SPECIMEN [facility] Facility: [facility] Address: [address] [place] [address] Performed By: #### 2 4321-2 #### [facility] CLIA [id number] [address] [place] [address] Chloride [Moles/Vol] 104 mmol/L Normal 97-105 [facility] Comment on above: Order Comment: Speci men Type: BLOOD SPECIMEN [facility] Facility: [facility] Address: [address] [place] [address] Performed By: #### 2 4321-2 #### [facility] CLIA [id number] [address] [place] [address] CO2 [Moles/Vol] 30 mmol/L Normal 22-30 [facility] Comment on above: Order Comment: Speci men Type: BLOOD SPECIMEN [facility] Facility: [facility] Address: [address] [place] [address] Performed By: #### 2 4321-2 #### [facility] CLIA [id number] [address] [place] [address] Creatinine [Mass/Vol] 1.12 mg/dL Normal 0.73-1.22 [facility] Comment on above: Order Comment: Speci men Type: BLOOD SPECIMEN [facility] Address: [address] [place] [address] Performed By: #### 2 4321-2 #### [facility] CLIA [id number] [address] [place] [address] Creatinine and Glomerular filtration rate.predicted panel (S/P/Bld) 69 mL/min/1.73m??? Normal >=60 [facility] Comment on above: Order Comment: Speci men Type: BLOOD SPECIMEN [facility] Address: [address] [place] [address] Result Comment: Jessica mated Glomerular Filtration Rate [...] reflect actual GFR. Performed By: #### 2 4321-2 #### [facility] CLIA [id number] [address] [place] [address] Glucose [Mass/Vol] 127 mg/dL High 74-99 [facility] Comment on above: Order Comment: Speci men Type: BLOOD SPECIMEN [facility] Facility: [facility] Address: [address], [place] [address] Result Comment: The [place] [employer] (ADA) provides guidance for cutoff [...] Standards of Medical Care in Diabetes 2016, [place] [employer]. Diabetes Care. 2016.39(Suppl 1). Performed By: #### 2 4321-2 #### [facility] CLIA [id number] [address] [place] [address] Potassium [Moles/Vol] 3.4 mmol/L Low 3.7-5.1 [facility] Comment on above: Order Comment: Speci men Type: BLOOD SPECIMEN [facility] Facility: [facility] Address: [address] [place] [address] Performed By: #### 2 4321-2 #### [facility] CLIA [id number] [address] [place] [address] Sodium [Moles/Vol] 146 mmol/L High 136-144 [facility] Comment on above: Order Comment: Speci men Type: BLOOD SPECIMEN [facility] Facility: [facility] Address: [address] [place] [address] Performed By: #### 2 4321-2 #### [facility] CLIA [id number] [address] [place] [address] Urea nitrogen [Mass/Vol] 33 mg/dL High 9-24 [facility] Comment on above: Order Comment: Speci men Type: BLOOD SPECIMEN [facility] Facility: [facility] Address: [address] [place] [id number] Performed By: #### 2 4321-2 #### [facility] CLIA [id number] [address] [place] [address] [place] [address] CBC W Auto Differential pane l (Bld)on 10-16-2023 Basophils (Bld) [#/Vol] 10*3/uL Normal <0.11 [facility] Comment on above: Order Comment: Speci men Type: BLOOD SPECIMEN [facility] Facility: [facility] Address: [address] [place] [address] Performed By: #### 2 4321-2 #### [facility] CLIA [id number] [address] [place] [address] Basophils/100 WBC (Bld) 0.1 % Normal [facility] Comment on above: Order Comment: Speci men Type: BLOOD SPECIMEN [facility] Facility: [facility] Address: [address] [place] [address] Performed By: #### 2 4321-2 #### [facility] CLIA [id number] [address] [place] [address] 88357 Differential cell count method Nom (Bld) Auto Normal [facility] Comment on above: Order Comment: Speci men Type: BLOOD SPECIMEN [facility] Facility: [facility] Address: [address] [place] [address] Performed By: #### 2 4321-2 #### [facility] CLIA [id number] [address] [place] [address] Eosinophils (Bld) [#/Vol] 0.04 10*3/uL Normal <0.46 [facility] Comment on above: Order Comment: Speci men Type: BLOOD SPECIMEN Ordering Facility: [facility] Address: [address] [place] [address] Performed By: #### 2 4321-2 #### [facility] CLIA [id number] [address] [place] [address]134 Eosinophils/100 WBC (Bld) 0.4 % Normal [facility] Comment on above: Order Comment: Speci men Type: BLOOD SPECIMEN [facility]ing Facility: [facility] Address: [address] [place] [address] Performed By: #### 2 4321-2 #### [facility] CLIA [id number] [address] [place] [address] Erythrocyte distribution width (RBC) [Ratio] 12.4 % Normal 11.5-15.0 [facility] Comment on above: Order Comment: Speci men Type: BLOOD SPECIMEN [facility]ing Facility: [facility] Address: [address] [place] [address] Performed By: #### 2 4321-2 #### [facility] CLIA [id number] [address] [place] [address]35 Hematocrit (Bld) [Volume fraction] 43.2 % Normal 39.0-51.0 [facility] Comment on above: Order Comment: Speci men Type: BLOOD SPECIMEN [facility]ing Facility: [facility] Address: [address] [place] [address] Performed By: #### 2 4321-2 #### [facility] CLIA [id number] [address] [place] [address]35 Hemoglobin (Bld) [Mass/Vol] 15.0 g/dL Normal 13.0-17.0 [facility] Comment on above: Order Comment: Speci men Type: BLOOD SPECIMEN Ordering Facility: [facility] Address: [address] [place] [address] Performed By: #### 2 4321-2 #### [facility] CLIA [id number] [address] [place] [address]116 Immature granulocytes (Bld) [#/Vol] 0.06 10*3/uL Normal <0.10 [facility] Comment on above: Order Comment: Speci men Type: BLOOD SPECIMEN Ordering Facility: [facility] Address: [address] [place] [address] Performed By: #### 2 4321-2 #### [facility] CLIA [id number] [address] [place] [address] 25453 Immature granulocytes/100 WBC (Bld) 0.6 % Normal [facility] Comment on above: Order Comment: Speci men Type: BLOOD SPECIMEN Ordering Facility: [facility] Address: [address] [place] [address] Performed By: #### 2 4321-2 #### [facility] CLIA [id number] [address] [place] [address] 18343 Lymphocytes (Bld) [#/Vol] 2.48 10*3/uL Normal 1.00-4.00 [facility] Comment on above: Order Comment: Speci men Type: BLOOD SPECIMEN Ordering Facility: [facility] Address: [address] [place] [address] Performed By: #### 2 4321-2 #### [facility] CLIA [id number] [address] [place] [address]888 Lymphocytes/100 WBC (Bld) 25.3 % Normal [facility] Comment on above: Order Comment: Speci men Type: BLOOD SPECIMEN Ordering Facility: [facility] Address: [address] [place] [address] Performed By: #### 2 4321-2 #### [facility] CLIA [id number] [address] [place] [address] 28732 MCH (RBC) [Entitic mass] 31.6 pg Normal 26.0-34.0 [facility] Comment on above: Order Comment: Speci men Type: BLOOD SPECIMEN Ordering Facility: [facility] Address: [address] [place] [address] Performed By: #### 2 4321-2 #### [facility] CLIA [id number] [address] [place] [address] MCHC (RBC) [Mass/Vol] 34.7 g/dL Normal 30.5-36.0 [facility] Comment on above: Order Comment: Speci men Type: BLOOD SPECIMEN [facility] [facility] Address: [address] [place], [place] [address] Performed By: #### 2 4321-2 #### [facility] CLIA [id number] [address] [place] [address] 99977 MCV (RBC) [Entitic vol] 90.9 fL Normal 80.0-100.0 [facility] Comment on above: Order Comment: Speci men Type: BLOOD SPECIMEN Ordering Facility: [facility] Address: [address] [place] [address] Performed By: #### 2 4321-2 #### [facility] CLIA [id number] [address] [place] [address] 55040 Monocytes (Bld) [#/Vol] 0.70 10*3/uL Normal <0.87 [facility] Comment on above: Order Comment: Speci men Type: BLOOD SPECIMEN Ordering Facility: [facility] Address: [address] [place] [address] Performed By: #### 2 4321-2 #### [facility] CLIA [id number] [address] [place] [address] 23618 Monocytes/100 WBC (Bld) 7.1 % Normal [facility] Comment on above: Order Comment: Speci men Type: BLOOD SPECIMEN Ordering Facility: [facility] Address: [address] [place] [address] Performed By: #### 2 4321-2 #### [facility] CLIA [id number] [address] [place] [address] 96748 Neutrophils (Bld) [#/Vol] 6.53 10*3/uL Normal 1.45-7.50 [facility] Comment on above: Order Comment: Speci men Type: BLOOD SPECIMEN Ordering Facility: [facility] Address: [address] [place] [address] Performed By: #### 2 4321-2 #### [facility] CLIA [id number] [address] [place] [address] 69620 Neutrophils/100 WBC (Bld) 66.5 % Normal [facility] Comment on above: Order Comment: Speci men Type: BLOOD SPECIMEN Ordering Facility: [facility] Address: [address] [place] [address] Performed By: #### 2 4321-2 #### [facility] CLIA [id number] [address] [place] [address] Nucleated RBC (Bld) [#/Vol] 10*3/uL Normal <0.01 [facility] Comment on above: Order Comment: Speci men Type: BLOOD SPECIMEN Ordering Facility: [facility] Address: [address] [place] [address] Performed By: #### 2 4321-2 #### [facility] CLIA [id number] [address] [place] [address] Nucleated RBC/100 WBC (Bld) [Ratio] 0.0 /100 WBC Normal [facility] Comment on above: Order Comment: Speci men Type: BLOOD SPECIMEN Ordering Facility: [facility] Address: [address] [place] [address] Performed By: #### 2 4321-2 #### [facility] CLIA [id number] [address] [place] [address] 83367 Platelet mean volume (Bld) [Entitic vol] 9.3 fL Normal 9.0-12.7 [facility] Comment on above: Order Comment: Speci men Type: BLOOD SPECIMEN Ordering Facility: [facility] Address: [address] [place] [address] Performed By: #### 2 4321-2 #### [facility] CLIA [id number] [address] [place] [address] Platelets (Bld) [#/Vol] 197 10*3/uL Normal 150-400 [facility] Comment on above: Order Comment: Speci men Type: BLOOD SPECIMEN Ordering Facility: [facility] Address: [address] [place] [address] Performed By: #### 2 4321-2 #### [facility] CLIA [id number] [address] [place] [address] 91797 RBC (Bld) [#/Vol] 4.75 10*6/uL Normal 4.20-6.00 [facility] Comment on above: Order Comment: Speci men Type: BLOOD SPECIMEN Ordering Facility: [facility] Address: [address] [place], [place] [address] Performed By: #### 2 4321-2 #### [facility] [place] [id number] [address] [place] [address]150 WBC (Bld) [#/Vol] 9.82 10*3/uL Normal 3.70-11.00 [facility] Comment on above: Order Comment: Speci men Type: BLOOD SPECIMEN Ordering Facility: [facility] Address: [address] [place] [address] Performed By: #### 2 4321-2 #### [facility] CLIA [id number] [address] [place] [address]69 PSA SerPl-ncon 10-16-2023 Prostate specific Ag [Mass/Vol] 0.94 ng/mL Normal <2.60 [facility] Comment on above: Order Comment: Speci men Type: BLOOD SPECIMENOrdering Facility: [facility] Address: [address] [place] [address] Result Comment: Tota l PSA test methodology used is the Electrochemiluminescence Immunoassay by [employer]. Total PSA values by differing methodologies cannot be interchanged. Performed By: #### 2 857-1 ####[facility] [id number] [place] [address] [place] CNOVon 08-17-2023 CNOV Office Visit (NAVEEDA ) JM BARROW ([id number]) 1945 M Date Time Provider Department 08/17/23 11:30 AM Ace GUZMAN During your visit today, we recorded the following information about you: Brenda Aguirre RN 08/24/2023 11:58 AM Signed AUA 12 HITESH Ramon G Phillip, MD 08/24/2023 11:58 AM Signed Radiation Oncology - Follow Up [...] TUR undergoing surveillance. INTERVAL HISTORY: Doing well. Has decided not to pursue brachytherapy. He is continuing ADT with medical oncology/Dr. Broussard. He denies any problems although the occasional blood pressure issues. No dysuria or hematuria. No obstructive issues. RADIOLOGY: PSMA PET scan 05/12/2023: PSMA positive [...] neoplastic process PSA HISTORY: PSA Date Value 08/15/2023 0.72 ng/mL 06/23/2023 0.84 ng/mL 04/03/2023 0.67 ng/mL 02/21/2023 0.49 ng/mL 02/03/2014 0.17 ng/mL 11/12/2013 <0.06 [...] Reactions Chlorhexidine Rash Hibaclens [Other] Rash MEDICATIONS: acyclovir (ZOVIRAX) 5 % ointment APPLY EXTERNALLY EVERY 3 HOURS *6 TIMES A DAY* NEEDED albuterol HFA (PROVENTIL HFA, VENTOLIN HFA) 90 mcg/actuation inhaler INHALE 2 PUFFS BY MOUTH 4 TIMES A DAY Cholecalciferol, Vitamin D3, 50 mcg (2,000 unit) cap 2,000 Units. Ciclopirox (LOPROX) 0.77 % gel APPLY TO BOTH FEET AND TOE WEBBING TWICE A DAY clotrimazole-betamethasone (LOTRISONE) cream APPLY 1 APPLICATION EXTERNALLY TWICE A DAY doxazosin (CARDURA) 2 mg tablet Take 3 tablets by mouth every afternoon. multivitamin tablet Take 1 tablet by mouth once daily. mupirocin (BACTROBAN) 2 % ointment Apply to affected area two times a day. APPLY TO AFFECTED AREA potassium chloride SR (MICRO-K) 10 mEq CR capsule TAKE 1 CAPSULE BY MOUTH TWICE A DAY WITH FOOD FOR 30 DAYS tiZANidine (ZANAFLEX) 4 mg tablet Take 4 mg by mouth three times a day as needed. traZODone (DESYREL) 50 mg tablet Daily vitamin E acid succinate (VITAMIN E SUCCINATE) 268 mg (400 unit) tab Vitamin E Active 200 UNIT PO Daily September 14, 2018 12:00am bicalutamide (CASODEX) 50 mg tablet Take 1 tablet by mouth once daily. simvastatin (ZOCOR) 10 mg tablet Take 10 [...] cap Take by mouth. aspirin, enteric coated (more content not included)... Normal [facility] CNOVSPon 08-17-2023 OVS Visit (SP) Office (H EMASA) SUEJM GHOTRA ([id number]) 1945 M Date Time Provider Department 08/17/23 10:30 AM JOSE FRANCISCO BROUSSARD During your visit today, we recorded the following information about you: Temperature Pulse Respiration Blood pressure 97.9 degrees 71/minute 16/minute 118/66 Weight Height 83.6 kg 1.778 m Jose Francisco Broussard MD 08/18/2023 7:07 AM Signed PATIENT NAME: Jm Barrow DATE: 08/17/2023 PRIMARY CARE PHYSICIAN: Arline Orosco MD OTHER PHYSICIANS: Dr. Guzman, Dr. Leroy Shaw, Dr. Guzman, Dr. Gifford, Dr. James Robb Portions of this encounter note have been copied from my note from 06/26/2023 and has been updated where appropriate, and reflect my current medical decision making from today. CC: This is a 77 year old male with recurrent prostate cancer, seen for scheduled follow-up. INTERIM HISTORY: At the patient's last visit here he was prescribed bicalutamide 50 mg daily which he is tolerating. He has had no apparent adverse effects. On follow-up today he feels well with no particular complaints. He has had no urinary symptoms. No unusual pain or other systemic complaints. MEDICATIONS: Current Outpatient Medications Medication Sig acyclovir (ZOVIRAX) 5 % ointment APPLY EXTERNALLY EVERY 3 HOURS *6 TIMES A DAY* NEEDED albuterol HFA (PROVENTIL HFA, VENTOLIN HFA) 90 mcg/actuation inhaler INHALE 2 PUFFS BY MOUTH 4 TIMES A DAY Cholecalciferol, Vitamin D3, 50 mcg (2,000 unit) cap 2,000 Units. Ciclopirox (LOPROX) 0.77 % gel APPLY TO BOTH FEET AND TOE WEBBING TWICE A DAY clotrimazole-betamethasone (LOTRISONE) cream APPLY 1 APPLICATION EXTERNALLY TWICE A DAY doxazosin (CARDURA) 2 mg tablet Take 3 tablets by mouth every afternoon. losartan (COZAAR) 50 mg tablet Take 75 mg by mouth. metoprolol tartrate, short acting, (LOPRESSOR) 25 mg tablet Take 25 mg by mouth. multivitamin tablet Take 1 tablet by mouth once daily. mupirocin (BACTROBAN) 2 % ointment Apply to affected area two times a day. APPLY TO AFFECTED AREA potassium chloride SR (MICRO-K) 10 mEq CR capsule TAKE 1 CAPSULE BY MOUTH TWICE A DAY WITH FOOD FOR 30 DAYS tiZANidine (ZANAFLEX) 4 mg tablet Take 4 mg by mouth three times a day as needed. tolterodine ER (DETROL LA) 4 mg 24 hr capsule Daily traZODone (DESYREL) 50 mg tablet Daily vitamin E acid succinate (VITAMIN E SUCCINATE) 268 mg (400 unit) tab Vitamin E Active 200 UNIT PO Daily September 14, 2018 12:00am bicalutamide (CASODEX) 50 mg tablet Take 1 tablet by mouth once daily. simvastatin (ZOCOR) 10 mg tablet Take 10 [...] CATARACT, INSERT LENS,EX Bilateral 06/2019 Dr. Grimm [facility], [place] TONSILLECTOMY HX FAMILY HISTORY: FAMILY HISTORY Problem Relation Age of Onset Colon Cancer Mother GI Mother Diabetes Mother Cancer Father Pancreatic or Liver Diabetes Father SOCIAL HISTORY: Social History Tobacco Use Smoking status: Every Day Packs/day: 1.00 Years: 40.00 Additional pack years: 0.00 Total pack years: 40.00 Types: Cigarettes Passive exposur (more content not included)... Normal [facility] metabolic 2000 panelon 08-15-2023 Anion gap [Moles/Vol] 11 mmol/L Normal 9-18 [facility] Comment on above: Order Comment: Speci men Type: BLOOD SPECIMEN Ordering Facility: [facility] Address: [address] [place] [address] Performed By: #### 2 4321-2 #### [facility] CLIA [id number] [address] [place] [address] Calcium [Mass/Vol] 11.3 mg/dL High 8.5-10.2 [facility] Comment on above: Order Comment: Speci men Type: BLOOD SPECIMEN Ordering Facility: [facility] Address: [address] [place] [address] Performed By: #### 2 4321-2 #### [facility] CLIA [id number] [address] [place] [address]92 Chloride [Moles/Vol] 105 mmol/L Normal 97-105 [facility] Comment on above: Order Comment: Speci men Type: BLOOD SPECIMEN Ordering Facility: [facility] Address: [address] [place] [address] Performed By: #### 2 4321-2 #### [facility] CLIA [id number] [address] [place] [address] 16060 CO2 [Moles/Vol] 30 mmol/L Normal 22-30 [facility] Comment on above: Order Comment: Speci men Type: BLOOD SPECIMEN Ordering Facility: [facility] Address: [address] [place] [address] Performed By: #### 2 4321-2 #### [facility] CLIA [id number] [address] [place] [address]133 Creatinine [Mass/Vol] 1.02 mg/dL Normal 0.73-1.22 [facility] Comment on above: Order Comment: Speci men Type: BLOOD SPECIMEN Ordering Facility: [facility] Address: [address] [place] [address] Performed By: #### 2 4321-2 #### [facility] CLIA [id number] [address] [place] [address] Creatinine and Glomerular filtration rate.predicted panel (S/P/Bld) 77 mL/min/1.73m??? Normal >=60 [facility] Comment on above: Order Comment: Specvineet rahman Type: BLOOD SPECIMEN Ordering Facility: [facility] Address: [address] [place] [address] Result Comment: Jessica mated Glomerular Filtration Rate [...] reflect actual GFR. Performed By: #### 2 4321-2 #### [facility] CLIA [id number] [address] [place] [address]709 Glucose [Mass/Vol] 103 mg/dL High 74-99 [facility] Comment on above: Order Comment: Speci josiah Type: BLOOD SPECIMEN Ordering Facility: [facility] Address: [address] [place] [address] Result Comment: The [place] [employer] (ADA) provides guidance for cutoff [...] Standards of Medical Care in Diabetes 2016, [place] [employer]. Diabetes Care. 2016.39(Suppl 1). Performed By: #### 2 4321-2 #### [facility] CLIA [id number] [address] [place] [address] 15492 Potassium [Moles/Vol] 4.5 mmol/L Normal 3.7-5.1 [facility] Comment on above: Order Comment: Speci men Type: BLOOD SPECIMEN Ordering Facility: [facility] Address: [address] [place], [place] [address] Performed By: #### 2 4321-2 #### [facility] CLIA [id number] [address] [place] [address] Sodium [Moles/Vol] 146 mmol/L High 136-144 [facility] Comment on above: Order Comment: Speci men Type: BLOOD SPECIMEN Ordering Facility: [facility] Address: [address] [place] [address] Performed By: #### 2 4321-2 #### [facility] CLIA [id number] [address] [place] [address] 14982 Urea nitrogen [Mass/Vol] 25 mg/dL High 9-24 [facility] Comment on above: Order Comment: Speci men Type: BLOOD SPECIMEN Ordering Facility: [facility] Address: [address] [place] [address] Performed By: #### 2 4321-2 #### [facility] CLIA [id number] [address] [place] [address] 38111 CBC W Auto Differential pane l (Bld)on 08-15-2023 Basophils (Bld) [#/Vol] 0.05 10*3/uL Normal <0.11 [facility] Comment on above: Order Comment: Speci men Type: BLOOD SPECIMENOrdering Facility: [facility] Address: [address] [place] [address] Performed By: #### 5 7021-8 ####[facility] LAB[facility]IA [id number] [place] [address] Basophils/100 WBC (Bld) 0.5 % Normal [facility] Comment on above: Order Comment: Speci men Type: BLOOD SPECIMENOrdering Facility: [facility] Address: [address] [place] [address] Performed By: #### 5 7021-8 ####[facility] LAB[facility]IA [id number] [place] [address] Differential cell count method Nom (Bld) Auto Normal [facility] Comment on above: Order Comment: Speci men Type: BLOOD SPECIMENOrdering Facility: [facility] Address: [address] [place] [address] Performed By: #### 5 7021-8 ####[facility] LABCLIA [id number] [place] [address] Eosinophils (Bld) [#/Vol] 0.59 10*3/uL High <0.46 [facility] Comment on above: Order Comment: Speci men Type: BLOOD SPECIMENOrdering Facility: [facility] Address: [address] [place] [address] Performed By: #### 5 7021-8 ####[facility]CLIA [id number] [place] [address] Eosinophils/100 WBC (Bld) 6.3 % Normal [facility] Comment on above: Order Comment: Speci men Type: BLOOD SPECIMENOrdering Facility: [facility] Address: [address] [place] [address] Performed By: #### 5 7021-8 ####[facility]IA [id number] [place] [address] Erythrocyte distribution width (RBC) [Ratio] 12.6 % Normal 11.5-15.0 [facility] Comment on above: Order Comment: Speci men Type: BLOOD SPECIMENOrdering Facility: [facility] Address: [address] [place] [address] Performed By: #### 5 7021-8 ####[facility]IA [id number] [place] [address] Hematocrit (Bld) [Volume fraction] 43.1 % Normal 39.0-51.0 [facility] Comment on above: Order Comment: Speci men Type: BLOOD SPECIMENOrdering Facility: [facility] Address: [address] [place] [address] Performed By: #### 5 7021-8 ####[facility] LAB[facility]IA [id number] [place] [address] Hemoglobin (Bld) [Mass/Vol] 14.8 g/dL Normal 13.0-17.0 [facility] Comment on above: Order Comment: Speci men Type: BLOOD SPECIMENOrdering Facility: [facility] Address: [address] [place] [address] Performed By: #### 5 7021-8 ####[facility]IA [id number] [place] [address] Immature granulocytes (Bld) [#/Vol] 0.03 10*3/uL Normal <0.10 [facility] Comment on above: Order Comment: Speci men Type: BLOOD SPECIMENOrdering Facility: [facility] Address: [address] [place] [address] Performed By: #### 5 7021-8 ####[facility]IA [id number] [place] [address] Immature granulocytes/100 WBC (Bld) 0.3 % Normal [facility] Comment on above: Order Comment: Speci men Type: BLOOD SPECIMENOrdering Facility: [facility] Address: [address] [place] [address] Performed By: #### 5 7021-8 ####[facility]CLIA [id number] [place] [address] Lymphocytes (Bld) [#/Vol] 2.33 10*3/uL Normal 1.00-4.00 [facility] Comment on above: Order Comment: Speci men Type: BLOOD SPECIMENOrdering Facility: [facility] Address: [address] [place] [address] Performed By: #### 5 7021-8 ####[facility]CLIA [id number] [place] [address] Lymphocytes/100 WBC (Bld) 24.9 % Normal [facility] Comment on above: Order Comment: Speci men Type: BLOOD SPECIMENOrdering Facility: [facility] Address: [address] [place] [address] Performed By: #### 5 7021-8 ####[facility] LABCLIA [id number] [place] [address] MCH (RBC) [Entitic mass] 31.4 pg Normal 26.0-34.0 [facility] Comment on above: Order Comment: Speci men Type: BLOOD SPECIMENOrdering Facility: [facility] Address: [address] [place] [address] Performed By: #### 5 7021-8 ####[facility] LABCLIA [id number] [place] [address] MCHC (RBC) [Mass/Vol] 34.3 g/dL Normal 30.5-36.0 [facility] Comment on above: Order Comment: Speci men Type: BLOOD SPECIMENOrdering Facility: [facility] Address: [address] [place] [address] Performed By: #### 5 7021-8 ####[facility] LABCLIA [id number] [place] [address] MCV (RBC) [Entitic vol] 91.5 fL Normal 80.0-100.0 [facility] Comment on above: Order Comment: Speci men Type: BLOOD SPECIMENOrdering Facility: [facility] Address: [address] [place] [address] Performed By: #### 5 7021-8 ####[facility] LABCLIA [id number] [place] [address] Monocytes (Bld) [#/Vol] 0.90 10*3/uL High <0.87 [facility] Comment on above: Order Comment: Speci men Type: BLOOD SPECIMENOrdering Facility: [facility] Address: [address] [place] [address] Performed By: #### 5 7021-8 ####[facility]CLIA [id number] [place] [address] Monocytes/100 WBC (Bld) 9.6 % Normal [facility] Comment on above: Order Comment: Speci men Type: BLOOD SPECIMENOrdering Facility: [facility] Address: [address] [place] [address] Performed By: #### 5 7021-8 ####[facility]CLIA [id number] [place] [address] Neutrophils (Bld) [#/Vol] 5.45 10*3/uL Normal 1.45-7.50 [facility] Comment on above: Order Comment: Speci men Type: BLOOD SPECIMENOrdering Facility: [facility] Address: [address] [place] [address] Performed By: #### 5 7021-8 ####[facility]CLIA [id number] [place] [address] Neutrophils/100 WBC (Bld) 58.4 % Normal [facility] Comment on above: Order Comment: Speci men Type: BLOOD SPECIMENOrdering Facility: [facility] Address: [address] [place] [address] Performed By: #### 5 7021-8 ####[facility] LABCLIA [id number] [place] [address] Nucleated RBC (Bld) [#/Vol] 10*3/uL Normal <0.01 [facility] Comment on above: Order Comment: Speci men Type: BLOOD SPECIMENOrdering Facility: [facility] Address: [address] [place] [address] Performed By: #### 5 7021-8 ####[facility]CLIA [id number] [place] [address] Nucleated RBC/100 WBC (Bld) [Ratio] 0.0 /100 WBC Normal [facility] Comment on above: Order Comment: Speci men Type: BLOOD SPECIMENOrdering Facility: [facility] Address: [address] [place] [address] Performed By: #### 5 7021-8 ####[facility] LABCLIA [id number] [place] [address] Platelet mean volume (Bld) [Entitic vol] 9.2 fL Normal 9.0-12.7 [facility] Comment on above: Order Comment: Speci men Type: BLOOD SPECIMENOrdering Facility: [facility] Address: [address] [place] [address] Performed By: #### 5 7021-8 ####[facility]CLIA [id number] [place] [address] Platelets (Bld) [#/Vol] 204 10*3/uL Normal 150-400 [facility] Comment on above: Order Comment: Speci men Type: BLOOD SPECIMENOrdering Facility: [facility] Address: [address] [place] [address] Performed By: #### 5 7021-8 ####[facility]CLIA [id number] [place] [address] RBC (Bld) [#/Vol] 4.71 10*6/uL Normal 4.20-6.00 [facility] Comment on above: Order Comment: Speci men Type: BLOOD SPECIMENOrdering Facility: [facility] Address: [address] [place] [address] Performed By: #### 5 7021-8 ####[facility]CLIA [id number] [place] [address] WBC (Bld) [#/Vol] 9.35 10*3/uL Normal 3.70-11.00 [facility] Comment on above: Order Comment: Speci men Type: BLOOD SPECIMENOrdering Facility: [facility] Address: [address] [place] [address] Performed By: #### 5 7021-8 ####[facility]CLIA [id number] [place] [address] PSA SerPl-mCncon 08-15-2023 Prostate specific Ag [Mass/Vol] 0.72 ng/mL Normal <2.60 [facility] Comment on above: Order Comment: Speci men Type: BLOOD SPECIMENOrdering Facility: [facility] Address: [address] [place] [address] Result Comment: Tota l PSA test methodology used is the Electrochemiluminescence Immunoassay by [employer]. Total PSA values by differing methodologies cannot be interchanged. Performed By: #### 2 857-1 ####[facility]IA [id number] [address] [place] CNPNuha 08-07-2023 CNPN Telephone (HEMASA) JM BARROW ([id number]) 1945 M Date Time Provider Department 08/07/23 JOSE FRANCISCO BROUSSARD During your visit today, we recorded the following information about you: Deyanira Haskins MA 08/07/2023 11:51 AM Signed Patient has an appointment on 08/15/23 for labs then follow up on 08/17/23, please place lab orders. Deyanira Haskins MA Allergies As of Date: 08/07/2023 Noted Allergy Reaction CHLORHEXIDINE 05/21/2013 2 - Rash hibaclens [Other] 06/02/2011 2 - Rash Date Reviewed: 07/21/2023 Reviewed by: Sarika Dixon, OA - Fully Assessed Reason for Visit: Lab Orders [4188] Primary Visit Diagnosis:Prostate cancer (HCC) [C61] Order(s):CBC + DIFF [SQCBCDIF] Order #: [id number] FUTURE BASIC METABOLIC PNL [SQBMP] Order #: [id number] FUTURE PSA/PROSTSPECAG DIAG [SQPSA] Order #: [id number] FUTURE Prescriptions as of 08/07/2023 - acyclovir (ZOVIRAX) 5 % ointment APPLY EXTERNALLY EVERY 3 HOURS *6 TIMES A DAY* NEEDED - albuterol HFA (PROVENTIL HFA, VENTOLIN HFA) 90 mcg/actuation inhaler INHALE 2 PUFFS BY MOUTH 4 TIMES A DAY - Cholecalciferol, Vitamin D3, 50 mcg (2,000 unit) cap 2,000 Units. - Ciclopirox (LOPROX) 0.77 % gel APPLY TO BOTH FEET AND TOE WEBBING TWICE A DAY - clotrimazole-betamethasone (LOTRISONE) cream APPLY 1 APPLICATION EXTERNALLY TWICE A DAY - doxazosin (CARDURA) 2 mg tablet Take 3 tablets by mouth every afternoon. - losartan (COZAAR) 50 mg tablet Take 75 mg by mouth. - metoprolol tartrate, short acting, (LOPRESSOR) 25 mg tablet Take 25 mg by mouth. - multivitamin tablet Take 1 tablet by mouth once daily. - mupirocin (BACTROBAN) 2 % ointment Apply to affected area two times a day. APPLY TO AFFECTED AREA - potassium chloride SR (MICRO-K) 10 mEq CR capsule TAKE 1 CAPSULE BY MOUTH TWICE A DAY WITH FOOD FOR 30 DAYS - tiZANidine (ZANAFLEX) 4 mg tablet Take 4 mg by mouth three times a day as needed. - tolterodine ER (DETROL LA) 4 mg 24 hr capsule Daily - traZODone (DESYREL) 50 mg tablet Daily - vitamin E acid succinate (VITAMIN E SUCCINATE) 268 mg (400 unit) tab Vitamin E Active 200 UNIT PO Daily September 14, 2018 12:00am - bicalutamide (CASODEX) 50 mg tablet Take 1 tablet by mouth once daily. - simvastatin (ZOCOR) 10 mg tablet Take 10 mg by mouth daily at bedtime. - irbesartan (AVAPRO) 75 mg tablet Take 75 mg by mouth daily at bedtime. - chlorthalidone (HYGROTON) 25 mg tablet Take 25 mg by mouth once daily. - metoprolol succinate ER (TOPROL XL) 25 mg 24 hr tablet Take 25 mg by mouth once daily. - fluticasone-vilanterol (BREO ELLIPTA) 100-25 mcg/dose inhaler Inhale 1 Inhalation as instructed once daily. 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 ([phone])Copy To: Rec. #:[id number]: #[id number] Final Cytologic Diagnosis Voided urine: Negative for high-grade urothelial cell carcinoma. /07/05/2023 Interpretation performed at [facility], [address] [place] [address], License number: [id number].Electronically Signed Out By Tony Sanchez MD Clinical History Malignant neoplasm of urinary bladder ([facility]) C67.9. Cancer Gross Description Received was 30mL of cloudy yellow fluid unfixed labeled as [place], Voided urine . 15mL used for Cytology. See [facility] report. Source of Specimen Voided urine Non [employer] Fee Code(s): 1; 98720 Reference Lab Test IDon 06-16 UROVYSION FOR BLADDER CANCER SEE COMMENTS 07/12/2023 01:08 PM Normal [facility] Comment on above: Result Comment: NOTE Test [...] specific probe for 9p21 ([employer] [place], [place]). This test has been modified from the heel lift gouger's instructions. Its performance characteristics were determined by [facility] in a manner consistent with CLIA requirements. This test has not been cleared or approved by the U.S. Food and Drug Administration. Reason for Referral Evaluate for urothelial carcinoma. Specimen Varies Source Urine, NOS Released By Willard Evans M.D. Test Performed by: [place] [address] Pattern Scratcher: Baldo Hawkins M.D. Ph.D.; CLIA# [id number] Performed By: #### 3 0896-5 #### [facility] ([id number]) [address] [place] [address] CNOVSPon 06-26-2023 CNOVSP Visit (SP) Office (H EMASA) JM BARROW ([id number]) 1945 M Date Time Provider Department 06/26/23 [...] distant metastases. Once again he conferred with [facility] urology, but is reluctant to consider brachytherapy [...] intolerance, urinary (more content not included)... Normal [facility] CBC W Auto Differential pane l (Bld)on 06-23-2023 Basophils (Bld) [#/Vol] 0.06 10*3/uL Normal <0.11 [facility] Comment on above: Order Comment: Speci men Type: BLOOD SPECIMENOrdering Facility: [facility] Address: [address] [place] [address] Performed By: #### 5 7021-8 ####[facility] LABCLIA [id number] [place] [address] Basophils/100 WBC (Bld) 0.9 % Normal [facility] Comment on above: Order Comment: Speci men Type: BLOOD SPECIMENOrdering Facility: [facility] Address: [address] [place] [address] Performed By: #### 5 7021-8 ####[facility] LABCLIA [id number] [place] [address] Differential cell count method Nom (Bld) Auto Normal [facility] Comment on above: Order Comment: Speci men Type: BLOOD SPECIMENOrdering Facility: [facility] Address: [address] [place] [address] Performed By: #### 5 7021-8 ####[facility] LABCLIA [id number] [place] [address] Eosinophils (Bld) [#/Vol] 0.54 10*3/uL High <0.46 [facility] Comment on above: Order Comment: Speci men Type: BLOOD SPECIMENOrdering Facility: [facility] Address: [address] [place] [address] Performed By: #### 5 7021-8 ####[facility] LABCLIA [id number] [place] [address] Eosinophils/100 WBC (Bld) 8.2 % Normal [facility] Comment on above: Order Comment: Speci men Type: BLOOD SPECIMENOrdering Facility: [facility] Address: [address] [place] [address] Performed By: #### 5 7021-8 ####[facility] LABCLIA [id number] [place] [address] Erythrocyte distribution width (RBC) [Ratio] 12.6 % Normal 11.5-15.0 [facility] Comment on above: Order Comment: Speci men Type: BLOOD SPECIMENOrdering Facility: [facility] Address: [address] [place] [address] Performed By: #### 5 7021-8 ####[facility] LABCLIA [id number] [place] [address] Hematocrit (Bld) [Volume fraction] 44.4 % Normal 39.0-51.0 [facility] Comment on above: Order Comment: Speci men Type: BLOOD SPECIMENOrdering Facility: [facility] Address: [address] [place] [address] Performed By: #### 5 7021-8 ####[facility] LABIA [id number] [place] [address] Hemoglobin (Bld) [Mass/Vol] 14.9 g/dL Normal 13.0-17.0 [facility] Comment on above: Order Comment: Speci men Type: BLOOD SPECIMENOrdering Facility: [facility] Address: [address] [place] [address] Performed By: #### 5 7021-8 ####[facility] LABIA [id number] [place] [address] Immature granulocytes (Bld) [#/Vol] 10*3/uL Normal <0.10 [facility] Comment on above: Order Comment: Speci men Type: BLOOD SPECIMENOrdering Facility: [facility] Address: [address] [place] [address] Performed By: #### 5 7021-8 ####[facility] LABIA [id number] [place] [address] Immature granulocytes/100 WBC (Bld) 0.2 % Normal [facility] Comment on above: Order Comment: Speci men Type: BLOOD SPECIMENOrdering Facility: [facility] Address: [address] [place] [address] Performed By: #### 5 7021-8 ####[facility] LABCLIA [id number] [place] [address] Lymphocytes (Bld) [#/Vol] 1.81 10*3/uL Normal 1.00-4.00 [facility] Comment on above: Order Comment: Speci men Type: BLOOD SPECIMENOrdering Facility: [facility] Address: [address] [place] [address] Performed By: #### 5 7021-8 ####[facility] LABCLIA [id number] [place] [address] Lymphocytes/100 WBC (Bld) 27.5 % Normal [facility] Comment on above: Order Comment: Speci men Type: BLOOD SPECIMENOrdering Facility: [facility] Address: [address] [place] [address] Performed By: #### 5 7021-8 ####[facility] LABCLIA [id number] [place] [address] MCH (RBC) [Entitic mass] 30.8 pg Normal 26.0-34.0 [facility] Comment on above: Order Comment: Speci men Type: BLOOD SPECIMENOrdering Facility: [facility] Address: [address] [place] [address] Performed By: #### 5 7021-8 ####[facility] LABCLIA [id number] [place] [address] MCHC (RBC) [Mass/Vol] 33.6 g/dL Normal 30.5-36.0 [facility] Comment on above: Order Comment: Speci men Type: BLOOD SPECIMENOrdering Facility: [facility] Address: [address] [place] [address] Performed By: #### 5 7021-8 ####[facility] LABCLIA [id number] [place] [address] MCV (RBC) [Entitic vol] 91.9 fL Normal 80.0-100.0 [facility] Comment on above: Order Comment: Speci men Type: BLOOD SPECIMENOrdering Facility: [facility] Address: [address] [place] [address] Performed By: #### 5 7021-8 ####[facility] LABCLIA [id number] [place] [address] Monocytes (Bld) [#/Vol] 0.50 10*3/uL Normal <0.87 [facility] Comment on above: Order Comment: Speci men Type: BLOOD SPECIMENOrdering Facility: [facility] Address: [address] [place] [address] Performed By: #### 5 7021-8 ####[facility] LABCLIA [id number] [place] [address] Monocytes/100 WBC (Bld) 7.6 % Normal [facility] Comment on above: Order Comment: Speci men Type: BLOOD SPECIMENOrdering Facility: [facility] Address: [address] [place] [address] Performed By: #### 5 7021-8 ####[facility] LABCLIA [id number] [place] [address] Neutrophils (Bld) [#/Vol] 3.66 10*3/uL Normal 1.45-7.50 [facility] Comment on above: Order Comment: Speci men Type: BLOOD SPECIMENOrdering Facility: [facility] Address: [address] [place] [address] Performed By: #### 5 7021-8 ####[facility] LABCLIA [id number] [place] [address] Neutrophils/100 WBC (Bld) 55.6 % Normal [facility] Comment on above: Order Comment: Speci men Type: BLOOD SPECIMENOrdering Facility: [facility] Address: [address] [place] [address] Performed By: #### 5 7021-8 ####[facility] LABCLIA [id number] [place] [address] Nucleated RBC (Bld) [#/Vol] 10*3/uL Normal <0.01 [facility] Comment on above: Order Comment: Speci men Type: BLOOD SPECIMENOrdering Facility: [facility] Address: [address] [place] [address] Performed By: #### 5 7021-8 ####[facility] LABCLIA [id number] [place] [address] Nucleated RBC/100 WBC (Bld) [Ratio] 0.0 /100 WBC Normal [facility] Comment on above: Order Comment: Speci men Type: BLOOD SPECIMENOrdering Facility: [facility] Address: [address] [place] [address] Performed By: #### 5 7021-8 ####[facility] LABCLIA [id number] [place] [address] Platelet mean volume (Bld) [Entitic vol] 9.5 fL Normal 9.0-12.7 [facility] Comment on above: Order Comment: Speci men Type: BLOOD SPECIMENOrdering Facility: [facility] Address: [address] [place] [address] Performed By: #### 5 7021-8 ####[facility] LABCLIA [id number] [place] [address] Platelets (Bld) [#/Vol] 222 10*3/uL Normal 150-400 [facility] Comment on above: Order Comment: Speci men Type: BLOOD SPECIMENOrdering Facility: [facility] Address: [address] [place] [address] Performed By: #### 5 7021-8 ####[facility] LABCLIA [id number] [place] [address] RBC (Bld) [#/Vol] 4.83 10*6/uL Normal 4.20-6.00 [facility] Comment on above: Order Comment: Speci men Type: BLOOD SPECIMENOrdering Facility: [facility] Address: [address] [place] [address] Performed By: #### 5 7021-8 ####[facility] LABCLIA [id number] [place] [address] WBC (Bld) [#/Vol] 6.58 10*3/uL Normal 3.70-11.00 [facility] Comment on above: Order Comment: Speci men Type: BLOOD SPECIMENOrdering Facility: [facility] Address: [address] [place] [address] Performed By: #### 5 7021-8 ####[facility] LABCLIA [id number] [place] [address] Comprehensive metabolic 2000 panelon 06-23-2023 Albumin [Mass/Vol] 4.2 g/dL Normal 3.9-4.9 [facility] Comment on above: Order Comment: Speci men Type: BLOOD SPECIMEN [facility] Address: [address] [place] [address] Performed By: #### 2 4321-2 #### [facility] CLIA [id number] [address] [place] [address] ALP [Catalytic activity/Vol] 58 U/L Normal 38-113 [facility] Comment on above: Order Comment: Speci men Type: BLOOD SPECIMEN [facility] Address: [address] [place] [address] Performed By: #### 2 4321-2 #### [facility] CLIA [id number] [place] [address] ALT [Catalytic activity/Vol] 10 U/L Normal 10-54 [facility] Comment on above: Order Comment: Speci men Type: BLOOD SPECIMEN [facility] Address: [address] [place], [place] [address] Performed By: #### 2 4321-2 #### [facility] CLIA [id number] [place] [address] Anion gap [Moles/Vol] 11 mmol/L Normal 9-18 [facility] Comment on above: Order Comment: Speci men Type: BLOOD SPECIMEN [facility]: [facility] Address: [address] [place] [address] Performed By: #### 2 4321-2 #### [facility] CLIA [id number] [address] [place] [address] AST [Catalytic activity/Vol] 17 U/L Normal 14-40 [facility] Comment on above: Order Comment: Speci men Type: BLOOD SPECIMEN [facility]: [facility] Address: [address] [place] [address] Performed By: #### 2 4321-2 #### [facility] CLIA [id number] [address] [place] [address] Bilirubin [Mass/Vol] 0.7 mg/dL Normal 0.2-1.3 [facility] Comment on above: Order Comment: Speci men Type: BLOOD SPECIMEN [facility] Address: [address] [place] [address] Performed By: #### 2 4321-2 #### [facility] CLIA [id number] [address] [place] [address] Calcium [Mass/Vol] 11.2 mg/dL High 8.5-10.2 [facility] Comment on above: Order Comment: Speci men Type: BLOOD SPECIMEN [facility]: [facility] Address: [address] [place] [address] Performed By: #### 2 4321-2 #### [facility] CLIA [id number] [address] [place] [address] Chloride [Moles/Vol] 101 mmol/L Normal 97-105 [facility] Comment on above: Order Comment: Speci men Type: BLOOD SPECIMEN [facility] Address: [address] [place] [address] Performed By: #### 2 4321-2 #### [facility] CLIA [id number] [address] [place] [address] CO2 [Moles/Vol] 31 mmol/L High 22-30 [facility] Comment on above: Order Comment: Speci men Type: BLOOD SPECIMEN [facility] Address: [address] [place] [address] Performed By: #### 2 4321-2 #### [facility] CLIA [id number] [address] [place] [address] Creatinine [Mass/Vol] 1.06 mg/dL Normal 0.73-1.22 [facility] Comment on above: Order Comment: Speci men Type: BLOOD SPECIMEN [facility] Address: [address] [place] [address] Performed By: #### 2 4321-2 #### [facility] CLIA [id number] [address] [place] [address] Creatinine and Glomerular filtration rate.predicted panel (S/P/Bld) 73 mL/min/1.73m??? Normal >=60 [facility] Comment on above: Order Comment: Speci men Type: BLOOD SPECIMEN [facility] Address: [address] [place] [address] Result Comment: Jessica mated Glomerular Filtration Rate [...] reflect actual GFR. Performed By: #### 2 4321-2 #### [facility] CLIA [id number] [address] [place] [address] Glucose [Mass/Vol] 99 mg/dL Normal 74-99 [facility] Comment on above: Order Comment: Speci men Type: BLOOD SPECIMEN [facility] Address: [address], [place] [address] Result Comment: The [place] [employer] (ADA) provides guidance for cutoff [...] Standards of Medical Care in Diabetes 2016, [place] [employer]. Diabetes Care. 2016.39(Suppl 1). Performed By: #### 2 4321-2 #### [facility] CLIA [id number] [address] [place] [address] Potassium [Moles/Vol] 3.5 mmol/L Low 3.7-5.1 [facility] Comment on above: Order Comment: Speci men Type: BLOOD SPECIMEN [facility] Facility: [facility] Address: [address] [place] [address] Performed By: #### 2 4321-2 #### [facility] CLIA [id number] [address] [place] [address] Protein [Mass/Vol] 7.2 g/dL Normal 6.3-8.0 [facility] Comment on above: Order Comment: Speci men Type: BLOOD SPECIMEN [facility] Address: [address] [place] [address] Performed By: #### 2 4321-2 #### [facility] CLIA [id number] [address] [place] [address] Sodium [Moles/Vol] 143 mmol/L Normal 136-144 [facility] Comment on above: Order Comment: Speci men Type: BLOOD SPECIMEN [facility] Facility[facility] Address: [address] [place] [address] Performed By: #### 2 4321-2 #### [facility] CLIA [id number] [address] [place], [place] [address] Urea nitrogen [Mass/Vol] 26 mg/dL High 9-24 [facility] Comment on above: Order Comment: Speci men Type: BLOOD SPECIMEN [facility] Address: [address] [place] [address] Performed By: #### 2 4321-2 #### [facility] CLIA [id number] [address] [place], [place] [address] PSA SerPl-mCncon 06-23-2023 Prostate specific Ag [Mass/Vol] 0.84 ng/mL Normal <2.60 [facility] Comment on above: Order Comment: Speci men Type: BLOOD SPECIMENOrdering Facility: [facility] Address: [address] [place] [address] Result Comment: Tota l PSA test methodology used is the Electrochemiluminescence Immunoassay by [employer]. Total PSA values by differing methodologies cannot be interchanged. Performed By: #### 2 857-1 ####[facility] LABCLIA [id number] [address] OF [facility] CNOVon 05-17-2023 CNOV Office Visit (RADTSA ) PERCYJM Dean ([id number]) 1945 M Date Time Provider Department 05/17/23 [...] General appeara (more content not included)... 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 If you are unable to reach us at the number above, please feel free to contact [facility] eRadiology at [phone]. DIVISION OF RADIOLOGY * * *Final Report* * * DATE [...] and pelvis 07/09/2013 TECHNIQUE: 10.8 mCi of 14D-TXVLfG-CTPD. The PET imaging was obtained between skull [...] Scattered degenerative changes, particularly in the spine. DIVISION OF RADIOLOGY Provider, [facility] - 05/13/2023 * * *Final Report* * * DATE [...] and pelvis 07/09/2013 TECHNIQUE: 10.8 mCi of 10W-QSRSmN-GKUH. The PET imaging was obtained between skull [...] Scattered degenerative changes, particularly in the spine. 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 If you are unable to reach us at the number above, please feel free to contact [facility] eRadiology at [phone]. [facility] PET+CT Guidance for localiza tion of tumor of Whole body-- W 18F-FDG IVOrdered By: Ccf Provider on 05-13-2023 [facility] PET/CT PROSTATE WBon 04-15 [place] PET/CT PROSTATE WB * * *Final Report* * * DATE OF EXAM: May 12 2023 3:06PM NRN 0093 - [place] PET/CT PROSTATE WB / PROCEDURE REASON: Malignant neoplasm of prostate (HCC) * * * * Physician Interpretation * * * * RESULT: Ga-68 PSMA WHOLE BODY PET/CT SCAN HISTORY: Prostate cancer recurrence PREVIOUS COMPARISON PET/CT STUDY: 06/02/2022 OTHER COMPARISON: MRI 08/15/2022, CT abdomen and pelvis 07/09/2013 TECHNIQUE: 10.8 mCi of 40A-WDWAgG-PQQS. The PET imaging was obtained between skull [...] any questions regarding this interpretation, please call [phone]. If you are unable to reach us at the number above, please feel free to contact [facility] eRadiology at [phone]. [id number] Normal [facility] PET+CT Guidance for localiza tion of tumor of Whole body-- W 18F-FDG Marisol 05-12-2023 Radiology Study observation (narrative) [facility] CNOVSPon 04-10-2023 CNOVSP Visit (SP) Office (H EMASA) JM BARROW ([id number]) 1945 M Date Time Provider Department 11/27/23 3:30 PM JOSE FRANCISCO BROUSSARD During your [...] he was seen by Dr. Robb at [facility] to discuss possible brachytherapy for his localized [...] CATARACT, INSERT LENS,EX Bilateral 06/2019 Dr. Grimm [facility], [place] TONSILLECTOMY HX FAMILY HISTORY: FAMILY [...] dizziness, gait (more content not included)... Normal [facility] ([id number]) 1945 M Date Time Provider Department 04/10/23 Ace GUZMAN During your visit today, we recorded the following information about you: Teresa Williamson 04/10/2023 3:28 PM Signed This form is used for MAIN CAMPUS APPOINTMENTS ONLY. Is this request for a [facility] [place] PET scan appointment? Yes: Glost Tile Sorter: Teresa Romero Requesting Person Dr guzman: Area Code + Phone/Pager: [phone] Who do we call to schedule this appointment? Other Contact: PSMA pet please message anne browne in [place] Requesting Staff Dr guzman Area Code + Phone/Pager: [phone] PET Orders (A delay in scheduling will [...] NO Send requests to P [facility] REVIEW BRYCE Brenda Hayden 04/11/2023 10:04 AM Signed Authorization number: PSMA Authorization date range: PSMA Primary Insurance: [employer] Diagnosis: Prostate cancer (HCC) [C61] DX Imaging: PET Scan: 06/02/2022 PET Pathology: 02/14/2000 Pelvic lymph node biopsy ([facility] [place], Dr. Doug Regalado) Metastatic prostate adenocarcinoma involving 1 of 3 lymph nodes (right obturator LN) PROSTATE GLAND, LEFT, LEVELS 1-4 , NEEDLE BIOPSIES ([id number], A-D) - PROSTATIC ADENOCARCINOMA, KITA SCORE 7 (4+3). Comment: Adenocarcinoma involves 60% of the needle biopsy specimens. Perineural invasion is present. 2. PROSTATE GLAND, RIGHT, LEVELS 1-4, NEEDLE BIOPSIES ([id number]; E-H) - PROSTATIC ADENOCARCINOMA, KITA SCORE 7 (4+3) 01/20/2000 TRUS prostate biopsy ([facility]) Prostate adenocarcinoma, [place] composite score 8 Labs: PSA 06/02/2022 PSA [...] No - Schedule as requested Comments for Segmental Paver Installer: EL: As soon as insurance will allow ROUTE TO SCHEDULERS POOL P PET E BUSINESS SPECIALIST or Aj [place] SPECIAL STUDIES BRYCE Damion Haydena 04/11/2023 10:04 AM Signed Auth#:[id number] Date Range: 04-11-23 to 07-09-2023 10737/PSMA- piflufolastat (Natoarify) F-18 Ace Montoya INS Contact Number: Intake: online Case/Ref#: [id number] Notes: 04/11/2023 Authorized online via Sherie/Abdi routed to [place] and [place] for scheduling in [place] per patient's request Allergies As of Date: 04/10/2023 Noted Allergy Reaction CHLORHEXIDINE 05/21/2013 2 - Rash hibaclens [Other] 06/02/2011 2 - Rash Date Reviewed: 04/10/2023 Reviewed by: Vidhi Rico - Fully Assessed Reason for Visit: Nm Pet Request [[id number]] Prescriptions as of 04/12/2023 - simvastatin (ZOCOR) [...] Vitamin E, (more content not included)... Normal [facility] PSA SerPl-OSS Healthon 04-03-2023 Prostate specific Ag [Mass/Vol] 0.67 ng/mL Normal <2.60 [facility] Comment on above: Order Comment: Speci men Type: BLOOD SPECIMENOrdering Facility: [facility] Address: [address] [place] [address] Result Comment: Tota l PSA test methodology used is the Electrochemiluminescence Immunoassay by [employer]. Total PSA values by differing methodologies cannot be interchanged. Performed By: #### 2 857-1 ####[facility] [id number] [place] [address] [place] 25(OH)D3 [facility] Healthon 2022 25-hydroxyvitamin D3 [Mass/Vol] 63.9 ng/mL Normal 31.0-80.0 [facility] Comment on above: Order Comment: Speci men Type: BLOOD SPECIMEN Ordering Facility: [facility] Address: [address] [place] [address] Result Comment: Clas sification of 25 [place] Vitamin D status: Deficiency/Insufficiency: < or = 30 ng/ml. Sufficiency/Optimal Levels: 31-80 ng/mL Toxicity: > 100 ng/mL. Test performed by chemiluminescent immunoassay. Performed By: #### 1 989-3 #### [facility] CLIA [id number] [address] [place] [address] [place] HbA1c (Bld)on 02-15-2023 Average glucose Estimated from glycated hemoglobin (Bld) [Mass/Vol] 105 mg/dL Normal [facility] Comment on above: Order Comment: Speci men Type: BLOOD SPECIMEN [facility]ing Facility: [facility] Address: [address] [place] [address] Result Comment: eAG: (Estimated average glucose) is a calculated value from HgbA1c and is marketing sales representative of the average blood glucose level in the last 2-3 month period. Performed By: #### 5 5454-3 #### [facility] CLIA [id number] [address] [place] [address] [place] HbA1c (Bld) [Mass fraction] 5.3 % Normal 4.3-5.6 [facility] Comment on above: Order Comment: Speci men Type: BLOOD SPECIMEN [facility]ing Facility: [facility] Address: [address] [place] [address] Result Comment: Amer [place] Diabetes Association guidelines indicate that patients with HgbA1c in the range 5.7-6.4% are at increased risk for development of diabetes, and intervention by lifestyle modification may be beneficial. HgbA1c greater or equal to 6.5% is considered diagnostic of diabetes. Performed By: #### 5 5454-3 #### [facility] CLIA [id number] [address] [place] [address] IMMUNOFIXATION SCREEN, SERUM on 02-15-2023 MPA RESULT No M protein is identified. Normal No M protein is identified. [facility] Comment on above: Order Comment: Speci men Type: BLOOD SPECIMEN [facility]ing Facility: [facility] Address: [address] [place] [address] Performed By: #### I FESC #### [facility] CLIA [id number] [address] [place] [address] [place] STAFF REVIEW (MPA) Reviewed by Martin charles MD, Ph.D ([id number]) [facility] Comment on above: Order Comment: Speci men Type: BLOOD SPECIMEN [facility]ing Facility: [facility] Address: [address] [place] [address] Performed By: #### I FES #### [facility] CLIA [id number] [address] [place] [address] [place] IMMUNOGLOBULINS GAMon 2022 IgA [Mass/Vol] 281 mg/dL Normal 70-400 [facility] Comment on above: Order Comment: Speci men Type: BLOOD SPECIMEN [facility]ing Facility: [facility] Address: [address] [place] [address] Performed By: #### S ERIMM #### [facility] CLIA [id number] [facility] [place] [address] [place] IgG [Mass/Vol] 955 mg/dL Normal 700-1600 [facility] Comment on above: Order Comment: Speci men Type: BLOOD SPECIMEN Ordering Facility: [facility] Address: [address] [place] [address] Performed By: #### S ERIMM #### [facility] CLIA [id number] [address] [place] [address] [place] IgM [Mass/Vol] 90 mg/dL Normal 40-230 [facility] Comment on above: Order Comment: Speci men Type: BLOOD SPECIMEN [facility]ing Facility: [facility] Address: [address] [place] [address] Performed By: #### S ERIMM #### [facility] CLIA [id number] [address] [place] [address] [place] KAPPA/AREVALO,FREE,SERon 2022 Immunoglobulin light chains.kappa.free (S) [Mass/Vol] 41.1 mg/L High 3.3-19.4 [facility] Comment on above: Order Comment: Speci men Type: BLOOD SPECIMEN [facility]ing Facility: [facility] Address: [address] [place] [address] Result Comment: Rare ly, increased serum free light chains levels may not be detected or accurately quantified due to prozone phenomenon or in high viscosity samples using this immunoturbidimetric assay. Correlation with other laboratory results and clinical findings is recommended. The [place] Free Light Chain was performed using the Binding Site Optilite immunoturbidimetric method. Result obtained with different assay methods or kits cannot be used interchangeably. Performed By: #### K LFRS #### [facility] CLIA [id number] [address] [place] [address] [place] Immunoglobulin light chains.kappa/Immun oglobulin light chains.lambda (S) [Mass ratio] 2.00 High 0.26-1.65 [facility] Comment on above: Order Comment: Speci men Type: BLOOD SPECIMEN [facility]ing Facility: [facility] Address: [address] [place] [address] Performed By: #### K LFRS #### [facility] CLIA [id number] [address] [place] [id number] [address] [place] Immunoglobulin light chains.lambda.free [Mass/Vol] 20.6 mg/L Normal 5.7-26.3 [facility] Comment on above: Order Comment: Speci men Type: BLOOD SPECIMEN [facility]ing Facility: [facility] Address: [address] [place] [address] Result Comment: Rare ly, increased serum free [...] interchangeably. Performed By: #### K LFRS #### [facility] CLIA [id number] [address] [place] [address] [place] MONOCLONAL PROT UR W/INTERPo n 02-15-2023 STAFF REVIEW ([facility]) Reviewed by Martin Rojo MD, Ph.D ([id number]) Normal [facility] Comment on above: Order Comment: Speci men Type: URINE SPECIMEN [facility]ing Facility: [facility] Address: [address] [place] [address] Performed By: #### U RMPA #### [facility] CLIA [id number] [address] [place] [address] [place] UMPA RESULT No M protein is identified. Normal No M protein is identified. [facility] Comment on above: Order Comment: Speci men Type: URINE SPECIMEN [facility] Address: [address] [place] [address] Performed By: #### U RMPA #### [facility] CLIA [id number] [address] [place] [address] [place] Methylmalonate SerPl-sCncon 02-15-2023 Methylmalonate [Moles/Vol] 0.14 umol/L Normal <=0.40 [facility] Comment on above: Order Comment: Speci men Type: BLOOD SPECIMEN [facility] Facility[facility] Address: [address] [place] [address] Result Comment: This test was developed and its performance characteristics determined by [facility]'s [facility] [place] (RT-PLMI). It has not been cleared or approved by the FDA. -[facility] is regulated under CLIA as qualified to perform high-complexity testing. This test is used for clinical purposes. It should not be regarded as investigational or for research. Performed By: #### 1 3964-2 #### [facility] CLIA [id number] [address] [facility] [address] [id number] [address] [place] Vit B12 [facility] 023 Cobalamin (Vitamin B12) [Mass/Vol] 1889 pg/mL High 232-1245 [facility] Comment on above: Order Comment: Speci men Type: BLOOD SPECIMEN [facility]ing Facility[facility] Address: [address] [place] [address] Performed By: #### 2 132-9 #### [facility] CLIA [id number] [address] [facility] [place] [address] [place] URINALYSIS, REFLEX MICROSCOP ICon 12-07-2022 Bacteria LM.HPF (Urine sed) [#/Area] Few Abnormal None Seen /HPF [facility] Bilirubin Ql (U) Negative Negative [facility] Clarity (Unsp spec) Cloudy Abnormal Clear [facility] Color (U) Yellow Yellow [facility] Epithelial cells LM.HPF (Urine sed) [#/Area] [...] [facility] Nitrite Ql (U) Negative Negative [facility] pH (U) 6.0 [pH] 5.0 - 8.0 [facility] Protein (U) [Mass/Vol] Trace Trace, Negative [facility] RBC LM.HPF (Urine sed) [#/Area] 3-5 /HPF Abnormal 0-3 /HPF [facility] Specific gravity (U) [Rel density] 1.024 1.005 - 1.030 [facility] Urobilinogen Ql (U) Negative Negative [facility] WBC LM.HPF (Urine sed) [#/Area] /[HPF] Abnormal 0-5 /HPF [facility] Office Visit (Cardiology)on 10-18-2022 Follow-up visit Diagnoses/Problems [...] of your visit. Follow up in 2-3 [facility] Chief Complaint JM BARROW is being [...] 1 TABLET DAILY DIRECTED AT BEDTIME Dulcolax [place] Laxative 5 MG Oral Tablet Delayed ReleaseTAKE [...] Signs Recorded: 18Oct2022 10:13AMRecorded: 18Oct2022 09:54AM Systolic Qlhgfiu79, RUE, Sitting Diastolic Eoifjyi64, RUE, Sitting Systolic Gneczyiy86, RUE, Standing Diastolic Heaxrgje65, RUE, Standing Heart Rate Rcshpfx81, R Radial Heart Rate Zzptrilu04, R Radial Heart Rate58, R Radial Wyqxvaoa74, LUE, Sitting Mymrbmdhb18, LUE, Sitting Height6 ft Wbccqc882 lb BMI Gwcuyliakk22.82 kg/m2 BSA Calculated2.05 Tobacco Usea) Yes Patient encouraged to stop using tobacco productsYes Falls Screening (more content not included)... Normal [employer] Tobacco Screening.on 023 Fall risk assessment a) No falls within the last year [facility] [employer]ent k 600 DO Work Phone: Tobacco use status CPHS a) Yes [facility] Modern [facility]outiqueSaint [facility] CenterGreenLink Networks k 600 DO Work Phone: [phone] Tobacco Screening. Yes [facility] Centerwal k 600 DO Work Phone: No Panel Informationon 09-[address] [facility] Heart-Deep [employer] [place] 250 DO Work Phone: 7.9\S\7.[address] [facility] Heart-[employer] [place] 250 DO Work Phone: Comment on above: Reference range: AM 6 - 24 ug/dl PM <10 ug/dlPERFORMED BY:[place] [id number], [place] [id number] MEDICAL DIRECTORGEORGINA XIAO M.D. Office Visit (Cardiology)on 09-01-2022 Follow-up visit Diagnoses/Problems [...] Abdomen; Status:Hold For - Scheduling,Retrospective Authorization; Requested for:[id number]; Patient taking Metformin or Derivatives? : No Radiologist to Determine Optimal Study : Y What are the patient's signs and symptoms? : htn CT Angio Pelvis; Status:Hold For - Scheduling,Retrospective Authorization; Requested for:[id number]; Patient taking Metformin or Derivatives? : No [...] we can help. You may also call [phone] SolutionsNOW for free resources and assistance.; Status:Complete - [...] I will today evaluate his possibility of Benedict's disease. In the future we may consider [...] TABLET TWICE (more content not included)... Normal [employer] Tobacco Screening.on 023 Adult depression screening assessment No -[facility] Heart-[place] 250 DO Work Phone: Fall risk assessment a) No falls within the last year [facility] Heart-Rj hollis 250 DO Work Phone: Tobacco use status CPHS a) Yes [facility] HeartFawn hollis 250 DO Work Phone: Tobacco Screening. Yes [facility] Heart-[place] 250 DO Work Phone: ALLIED HEALTHon 08-15-2022 ALLIED [facility]ALTH HNO ID: [id number] Author: RT Alyssia(R) Service: Radiology Author Type: [...] RT Alyssia(R) August 15, 2022 1:43 PM [facility] MRI PROSTATE WO/W IVCONon MRI PROSTATE WO/W IVCON * * *Final Report* * * DATE OF EXAM: Aug 15 2022 1:44PM [facility] 0751 - MRI PROSTATE WO/W IVCON / PROCEDURE REASON: Cancer of prostate w/med recur risk (T2b-c or Kita 7 or PSA 10-20) ([facility]) * * * * Physician [...] volume were obtained using a semi-automated software (YaKlass). CONTRAST: IV: 16 cc of Dotarem. COMPARISON: [...] of suspicion for clinically significant prostate cancer ([place] score 3 + 4 or higher). PI-RADS v2.1 Assessment Categories: PI-RADS 1: Clinically significant cancer is highly unlikely PI-RADS 2: Clinically significant cancer is unlikely PI-RADS 3: Clinically significant cancer is equivocal PI-RADS 4: Clinically significant cancer is likely PI-RADS 5: Clinically significant cancer is highly likely Equity Sales Assistant: IVA Transcribe Date/Time: Aug 15 2022 2:35P Dictated by : SARAI AYERS DO This examination was interpreted and the report reviewed and electronically signed by: CINTIA SOLORZANO MD on Aug 15 2022 5:43PM EST [id number] Normal [facility] NURSING PROGon 08-15-2022 NURSING PROG HNO ID: [id number] Author: Keila Hsu RN Service: PICC Team [...] DATE: August 15, 2022 TIME: 12:43 PM [facility] CBC AUTO DIFFon 08-01-2022 BASO # 0.1 103/ul Normal 0.0-0.1 [facility] Comment on above: Performed By: #### C SORAIDA ONOFRE #### [facility] [address] [place] [address] Dr. Samantha Samuels Basophils/100 WBC (Bld) 1.0 % Normal 0.2-2.0 [facility] Comment on above: Performed By: #### C SORAIDA ONOFRE #### [facility] [address] [place] [address] Dr. Samantha Samuels EO # 0.5 103/ul Normal 0.0-0.7 [facility] Comment on above: Performed By: #### C SORAIDA ONOFRE #### [facility] [address] [place] [address] Dr. Samantha Samuels Eosinophils/100 WBC (Bld) 7.9 % Critically high 0.9-7.0 [facility] Comment on above: Performed By: #### C PHYLLIS ONOFREDM #### [facility] [address] [place] [address] Dr. Samantha Samuels Erythrocyte distribution width (RBC) [Ratio] 12.8 % Normal 11.0-15.0 [facility] Comment on above: Performed By: #### C SORAIDA ONOFRE #### [facility] [address] [place] [address] Dr. Samantha Samuels Hematocrit (Bld) [Volume fraction] 40.1 % Critically low 42.0-54.0 [facility] Comment on above: Performed By: #### C SORAIDA ONOFRE #### [facility] [address] [place] [address] Dr. Samantha Samuels Hemoglobin (Bld) [Mass/Vol] 13.9 g/dL Critically low 14.0-18.0 [facility] Comment on above: Performed By: #### C PHYLLIS ONOFREDM #### [facility] [address] [place] [address] Dr. Samantha Samuels IG # 0.01 10e3/ul Normal 0.00-0.03 [facility] Comment on above: Performed By: #### C PHYLLIS ONOFREDM #### [facility] [address] [place] [address] Dr. Samantha Samuels IG % 0.2 % Normal 0.0-0.5 [facility] Comment on above: Performed By: #### C JEMIMA, PHYLLISDM #### [facility] [address] [place] [address] Dr. Samantha Samuels LYMPH # 1.8 103/ul Normal 1.2-3.8 [facility] Comment on above: Performed By: #### C SORAIDA ONOFRE #### [facility] [address] [place] [address] [address] Samantha Samuels Lymphocytes/100 WBC (Bld) 28.8 % Normal 20.5-60.0 [facility] Comment on above: Performed By: #### C MP, CMADM #### [facility] [address] [place] [address] Dr. Samantha Samuels MANUAL DIFF REQ NO Normal [facility] Comment on above: Performed By: #### C MP, CMADM #### [facility] [address] [place] [address] Dr. Samantha Samuels MCH (RBC) [Entitic mass] 32.3 pg Normal 25.9-34.0 [facility] Comment on above: Performed By: #### C MP, CMADM #### [facility] [address] [place] [address] Dr. Samantha Samuels MCHC (RBC) [Mass/Vol] 34.7 g/dL Normal 29.9-35.2 [facility] Comment on above: Performed By: #### C MP, CMADM #### [facility] [address] [place] [address] Dr. Samantha Samuels MCV (RBC) [Entitic vol] 93.0 fL Normal 80.0-94.0 [facility] Comment on above: Performed By: #### C MP, CMADM #### [facility] [address] [place] [address] Dr. Samantha Samuels MONO # 0.6 103/ul Normal 0.3-0.8 [facility] Comment on above: Performed By: #### C MP, CMADM #### [facility] [address] [place] [address] Dr. Samantha Samuels Monocytes/100 WBC (Bld) 9.7 % Normal 1.7-12.0 [facility] Comment on above: Performed By: #### C MP, CMADM #### [facility] [address] [place] [address] Dr. Samantha Samuels NEUT # 3.3 103/ul Normal 1.4-6.5 [facility] Comment on above: Performed By: #### C MP, CMADM #### [facility] [address] [address] [address] Samantha Samuels Neutrophils/100 WBC (Bld) 52.4 % Normal 43.0-75.0 [facility] Comment on above: Performed By: #### C MP, CMADM #### [facility] [address] [address] [address] Samantha Samuels Platelet mean volume (Bld) [Entitic vol] 9.4 fL Critically low 9.5-13.5 [facility] Comment on above: Performed By: #### C MP, CMADM #### [facility] [address] [place] [address] [address] Samantha Samuels PLT 227 103/ul Normal 150-450 [facility] Comment on above: Performed By: #### C MP, CMADM #### [facility] [address] [address] [address] Samantha Samuels RBC 4.31 106/ul Critically low 4.70-6.10 [facility] Comment on above: Performed By: #### C MP, CMADM #### [facility] [address] [address] [address] Samantha Samuels WBC 6.3 103/ul Normal 4.0-11.0 [facility] Comment on above: Performed By: #### C MP, CMADM #### [facility] [address] [address] [address] Samantha Samuels Covid-[facility]on [facility]-14 SARS-CoV-2 (COVID-19) RNA DELIA+probe Ql (Unsp spec) Not detected Normal NOT DETECTED [facility] Comment on above: Result Comment: When [...] for this test is supported by the [place] of Health and Human Service's declaration that [...] longer be used). Performed By: #### C [facility] #### [facility] [address] [place] [address] Dr. Samantha Samuels PROF 14(COMP METB)on 023 Albumin [Mass/Vol] 3.8 g/dL Normal 3.4-5.0 [facility] Comment on above: Performed By: #### C PHYLLIS ONOFREDM #### [facility] [address] [place] [address] Dr. Samantha Samuels Albumin/Globulin [Mass ratio] 1.2 {ratio} Normal [facility] Comment on above: Performed By: #### C JEMIMA CMADM #### [facility] [address] [place] [address] Dr. Samantha Samuels ALP [Catalytic activity/Vol] 73 U/L Normal 46-116 [facility] Comment on above: Performed By: #### C JEMIMA, CMADM #### [facility] [address] [place] [address] Dr. Samantha Samuels ALT [Catalytic activity/Vol] 16 U/L Normal 16-63 [facility] Comment on above: Performed By: #### C JEMIMA, CMADM #### [facility] [address] [place] [address] Dr. Samantha Samuels Anion gap [Moles/Vol] 9.0 mmol/L Normal [facility] Comment on above: Performed By: #### C JEMIMA, CMADM #### [facility] [address] [place] [address] Dr. Samantha Samuels AST [Catalytic activity/Vol] 18 U/L Normal 15-37 [facility] Comment on above: Performed By: #### C JEMIMA, CMADM #### [facility] [address] [address] [address] Samantha Samuels Bilirubin [Mass/Vol] 0.4 mg/dL Normal 0.2-1.0 [facility] Comment on above: Performed By: #### C JEMIMA, CMADM #### [facility] [address] [place] [address] Dr. Samantha Samuels Calcium [Mass/Vol] 9.5 mg/dL Normal 8.5-10.1 [facility] Comment on above: Performed By: #### C MP, CMADM #### [facility] [address] [place] [address] Dr. Samantha Samuels Chloride [Moles/Vol] 106 mmol/L Normal 98-107 [facility] Comment on above: Performed By: #### C JEMIMA, CMADM #### [facility] [address] [place] [address] Dr. Samantha Samuels CO2 [Moles/Vol] 31.1 mmol/L Normal 21.0-32.0 [facility] Comment on above: Performed By: #### C JEMIMA, CMADM #### [facility] [address] [place] [address] Dr. Samantha Samuels Creatinine [Mass/Vol] 0.83 mg/dL Normal 0.70-1.30 [facility] Comment on above: Performed By: #### C JEMIMA, CMADM #### [facility] [address] [place] [address] Dr. Samantha Samuels EGFR-AF KAZAKH >60 Normal >=60 [facility] Comment on above: Performed By: #### C JEMIMA, CMADM #### [facility] [address] [place] [address] Dr. Samantha Samuels EGFR-NON AF KAZAKH >60 Normal >=60 [facility] Comment on above: Performed By: #### C JEMIMA, CMADM #### [facility] [address] [place] [address] Dr. Samantha Samuels Globulin (S) [Mass/Vol] 3.2 g/dL Normal [facility] Comment on above: Performed By: #### C JEMIMA, CMADM #### [facility] [address] [address] [address] Samantha Samuels Glucose [Mass/Vol] 100 mg/dL Normal 74-106 [facility] Comment on above: Performed By: #### C JEMIMA, PHYLLISDM #### [facility] [address] [address] [address] Samantha Samuels Potassium [Moles/Vol] 4.1 mmol/L Normal 3.5-5.1 [facility] Comment on above: Performed By: #### C JEMIMA, CMADM #### [facility] [address] [place] [address] Dr. Samantha Samuels Protein [Mass/Vol] 7.0 g/dL Normal 6.4-8.2 [facility] Comment on above: Performed By: #### C JEMIMA, CMADM #### [facility] [address] [address] [address] Samantha Samuels Sodium [Moles/Vol] 142 mmol/L Normal 136-145 [facility] Comment on above: Performed By: #### C JEMIMA, CMADM #### [facility] [address] [address] [address] Samantha Samuels Urea nitrogen [Mass/Vol] 21.0 mg/dL Critically high 7.0-18.0 [facility] Comment on above: Performed By: #### C JEMIMA, CMADM #### [facility] [address] [address] [address] Samantha Samuels Urea nitrogen/Creatinin e [Mass ratio] 25.3 mg/mg Normal [facility] Comment on above: Performed By: #### C JEMIMA, CMADM #### [facility] [address] [address] [address] Samantha Samuels CARDIAC DAWNA ADMITon 023 CK [Catalytic activity/Vol] 101 U/L Normal 39-308 [facility] Comment on above: Performed By: #### C JEMIMA, CMADM #### [facility] [address] [address] [address] Samantha Samuels CK.MB [Mass/Vol] 2.00 ng/mL Normal <=3.60 [facility] Comment on above: Performed By: #### C MP, CMADM #### [facility] [address] [address] [address] Samantha Samuels HSTROP 5.3 pg/mL Normal 4.0-76.1 [facility] Comment on above: Result Comment: CUT- OFF POINTS HAVE BEEN ESTABLISHED BASED ON THE FOURTH UNIVERSAL DEFINITIONS OF MYOCARDIAL INFARCTION. THE UPPER REFERENCE LIMIT (URL) OF TROPONIN, DEFINED THE 99TH PERCENTILE OF cTnI DISTRIBUTION IN A REFERENCE POPULATION, HAS BEEN CONFIRMED THE DECISION THRESHOLD FOR VA DIAGNOSIS. Performed By: #### C MP, CMADM #### [facility] [address] [address] [address] Samantha Samuels JOSE 54 ng/mL Normal 16-96 [facility] Comment on above: Performed By: #### C JEMIMA, CMADM #### [facility] [address] [address] [address] Samantha Samuels CBC AUTO DIFFon 07-31-2022 BASO # 0.1 103/ul Normal 0.0-0.1 [facility] Comment on above: Performed By: #### C JEMIMA, CMADM #### [facility] [address] [address] [address] Samantha Samuels Basophils/100 WBC (Bld) 1.0 % Normal 0.2-2.0 [facility] Comment on above: Performed By: #### C JEMIMA, CMADM #### [facility] [address] [address] [address] Samantha Samuels EO # 0.6 103/ul Normal 0.0-0.7 [facility] Comment on above: Performed By: #### C JEMIMA, CMADM #### [facility] [address] [address] [address] Samantha Samuels Eosinophils/100 WBC (Bld) 9.4 % Critically high 0.9-7.0 [facility] Comment on above: Performed By: #### C MP, CMADM #### [facility] [address] [address] [address] Samantha Samuels Erythrocyte distribution width (RBC) [Ratio] 12.7 % Normal 11.0-15.0 [facility] Comment on above: Performed By: #### C JEMIMA, PHYLLISDM #### [facility] [address] [place] [address] Dr. Samantha Samuels Hematocrit (Bld) [Volume fraction] 39.7 % Critically low 42.0-54.0 [facility] Comment on above: Performed By: #### C JEMIMA, PHYLLISDM #### [facility] [address] [place] [address] Dr. Samantha Samuels Hemoglobin (Bld) [Mass/Vol] 13.7 g/dL Critically low 14.0-18.0 [facility] Comment on above: Performed By: #### C SORAIDA ONOFRE #### [facility] [address] [place] [address] Dr. Samantha Samuels IG # 0.01 10e3/ul Normal 0.00-0.03 [facility] Comment on above: Performed By: #### C SORAIDA ONOFRE #### [facility] [address] [place] [address] Dr. Samantha Samuels IG % 0.2 % Normal 0.0-0.5 [facility] Comment on above: Performed By: #### C SORAIDA ONOFRE #### [facility] [address] [place] [address] Dr. Samantha Samuels LYMPH # 2.2 103/ul Normal 1.2-3.8 [facility] Comment on above: Performed By: #### C SORAIDA ONOFRE #### [facility] [address] [place] [address] Dr. Samantha Samuels Lymphocytes/100 WBC (Bld) 36.8 % Normal 20.5-60.0 [facility] Comment on above: Performed By: #### C SORAIDA ONOFRE #### [facility] [address] [place] [address] Dr. Samantha Samuels MANUAL DIFF REQ NO Normal [facility] Comment on above: Performed By: #### C PHYLLIS ONOFREDM #### [facility] [address] [place] [address] Dr. Samantha Samuels MCH (RBC) [Entitic mass] 32.2 pg Normal 25.9-34.0 [facility] Comment on above: Performed By: #### C JEMIMA, CMADM #### [facility] [address] [place] [address] Dr. Samantha Samuels MCHC (RBC) [Mass/Vol] 34.5 g/dL Normal 29.9-35.2 [facility] Comment on above: Performed By: #### C MP, CMADM #### [facility] [address] [place] [address] Dr. Samantha Samuels MCV (RBC) [Entitic vol] 93.2 fL Normal 80.0-94.0 [facility] Comment on above: Performed By: #### C JEMIMA, PHYLLISDM #### [facility] [address] [place] [address] Dr. Samantha Samuels MONO # 0.6 103/ul Normal 0.3-0.8 [facility] Comment on above: Performed By: #### C JEMIMA, PHYLLISDM #### [facility] [address] [place] [address] Dr. Samantha Samuels Monocytes/100 WBC (Bld) 10.9 % Normal 1.7-12.0 [facility] Comment on above: Performed By: #### C JEMIMA, PHYLLISDM #### [facility] [address] [place] [address] Dr. Samantha Samuels NEUT # 2.5 103/ul Normal 1.4-6.5 [facility] Comment on above: Performed By: #### C JEMIMA, CMADM #### [facility] [address] [place] [address] Dr. Samantha Samuels Neutrophils/100 WBC (Bld) 41.7 % Critically low 43.0-75.0 [facility] Comment on above: Performed By: #### C JEMIMA, CMADM #### [facility] [address] [place] [address] Dr. Samantha Samuels Platelet mean volume (Bld) [Entitic vol] 9.3 fL Critically low 9.5-13.5 [facility] Comment on above: Performed By: #### C JEMIMA, CMADM #### [facility] [address] [place], [place] [address] Dr. Samantha Samuels PLT 225 103/ul Normal 150-450 [facility] Comment on above: Performed By: #### C JEMIMA, PHYLLISDM #### [facility] [address] [place], [place] [address] Dr. Samantha Samuels RBC 4.26 106/ul Critically low 4.70-6.10 [facility] Comment on above: Performed By: #### C JEMIMA, PHYLLISDM #### [facility] [address] [place], [place] [address] Dr. Samantha Samuels WBC 5.9 103/ul Normal 4.0-11.0 [facility] Comment on above: Performed By: #### C JEMIMA, PHYLLISDM #### [facility] [address] [place], [place] [address] HEAD WO CONon [...] RONDA ALBRIGHT Date: 2022-07-31 20:08 Normal [facility] PROF 14(COMP METB)on 023 Albumin [Mass/Vol] 3.8 g/dL Normal 3.4-5.0 [facility] Comment on above: Performed By: #### C MP, CMADM #### [facility] [address] [address] [address] Samantha Samuels Albumin/Globulin [Mass ratio] 1.2 {ratio} Normal [facility] Comment on above: Performed By: #### C MP, CMADM #### [facility] [address] [address] [address] Samantha Samuels ALP [Catalytic activity/Vol] 61 U/L Normal 46-116 [facility] Comment on above: Performed By: #### C MP, CMADM #### [facility] [address] [address] [address] Samantha Samuels ALT [Catalytic activity/Vol] 18 U/L Normal 16-63 [facility] Comment on above: Performed By: #### C MP, CMADM #### [facility] [address] [address] [address] Samantha Samuels Anion gap [Moles/Vol] 8.0 mmol/L Normal [facility] Comment on above: Performed By: #### C MP, CMADM #### [facility] [address] [address] [address] Samantha Samuels AST [Catalytic activity/Vol] 18 U/L Normal 15-37 [facility] Comment on above: Performed By: #### C MP, CMADM #### [facility] [address] [address] [address] Samantha Samuels Bilirubin [Mass/Vol] 0.4 mg/dL Normal 0.2-1.0 [facility] Comment on above: Performed By: #### C MP, CMADM #### [facility] [address] [address] [address] Samantha Samuels Calcium [Mass/Vol] 9.3 mg/dL Normal 8.5-10.1 [facility] Comment on above: Performed By: #### C MP, CMADM #### [facility] [address] [address] [address] Samantha Samuels Chloride [Moles/Vol] 105 mmol/L Normal 98-107 [facility] Comment on above: Performed By: #### C MP, CMADM #### [facility] [address] [address] [address] Samantha Samuels CO2 [Moles/Vol] 33.2 mmol/L Critically high 21.0-32.0 [facility] Comment on above: Performed By: #### C MP, CMADM #### [facility] [address] [address] [address] Samantha Samuels Creatinine [Mass/Vol] 0.74 mg/dL Normal 0.70-1.30 [facility] Comment on above: Performed By: #### C MP, CMADM #### [facility] [address] [address] [address] Samantha Samuels EGFR-AF KAZAKH >60 Normal >=60 [facility] Comment on above: Performed By: #### C MP, CMADM #### [facility] [address] [address] [address] Samantha Samuels EGFR-NON AF KAZAKH >60 Normal >=60 [facility] Comment on above: Performed By: #### C MP, CMADM #### [facility] [address] [address] [address] Samantha Samuels Globulin (S) [Mass/Vol] 3.2 g/dL Normal [facility] Comment on above: Performed By: #### C MP, CMADM #### [facility] [address] [address] [address] Samantha Samuels Glucose [Mass/Vol] 90 mg/dL Normal 74-106 [facility] Comment on above: Performed By: #### C MP, CMADM #### [facility] [address] [address] [address] Samantha Samuels Potassium [Moles/Vol] 4.2 mmol/L Normal 3.5-5.1 [facility] Comment on above: Performed By: #### C MP, CMADM #### [facility] [address] [address] [address] Samantha Samuels Protein [Mass/Vol] 7.0 g/dL Normal 6.4-8.2 [facility] Comment on above: Performed By: #### C MP, CMADM #### [facility] [address] [address] [address] Samantha Samuels Sodium [Moles/Vol] 142 mmol/L Normal 136-145 [facility] Comment on above: Performed By: #### C MP, CMADM #### [facility] [address] [address] [address] Samantha Samuels Urea nitrogen [Mass/Vol] 18.0 mg/dL Normal 7.0-18.0 [facility] Comment on above: Performed By: #### C MP, CMADM #### [facility] [address] [address] [address] Samantha Samuels Urea nitrogen/Creatinin e [Mass ratio] 24.3 mg/mg Normal [facility] Comment on above: Performed By: #### C MP, CMADM #### [facility] [address] [address] [address] Samantha Samuels PET+CT Guidance for localiza tion of tumor of Whole body-- W 18F-FDG Marisol 06-03-2022 IMPRESSION: Head and neck: -No suspicious PSMA [...] any questions regarding this interpretation, please call [phone]. If you are unable to reach us at the number above, please feel free to contact [facility] at [phone]. DIVISION OF RADIOLOGY * * *Final Report* * * DATE OF EXAM: Jun 02 2022 3:09PM NRN [id number] - NM PET/CT PROSTATE WB / PROCEDURE REASON: multiple diagnoses * * * * Physician Interpretation * * * * RESULT: [id number] WHOLE BODY PET/CT SCAN HISTORY: 76-year-old man prostate cancer, rising PSA COMPARISON: CT 09/11/2015 TECHNIQUE: 10.8 mCi of [id number]. The PET imaging was obtained between SKULL [...] lesions. , likely related to degenerative changes. DIVISION OF RADIOLOGY Provider, [facility] - 06/03/2022 * * *Final Report* * * DATE OF EXAM: Jun 02 2022 3:09PM NRN [id number] - NM PET/CT PROSTATE WB / PROCEDURE REASON: multiple diagnoses * * * * Physician Interpretation * * * * RESULT: [id number] WHOLE BODY PET/CT SCAN HISTORY: 76-year-old man prostate cancer, rising PSA COMPARISON: CT 09/11/2015 TECHNIQUE: 10.8 mCi of [id number]. The PET imaging was obtained between SKULL [...] lesions. , likely related to degenerative changes. IMPRESSION IMPRESSION: Head and neck: -No suspicious PSMA [...] any questions regarding this interpretation, please call [phone]. If you are unable to reach us at the number above, please feel free to contact [facility] at [phone]. [facility] PET+CT Guidance for localiza tion of tumor of Whole body-- W 18F-FDG IVOrdered By: [facility] Provider on 06-03-2022 [facility] PSA/PROSTSPECAG DIAGon 06-03 Prostate specific Ag [Mass/Vol] 0.50 ng/mL NINF - 2.60 ng/mL [facility] Comment on above: Total PSA test metho dology used is the Electrochemiluminescence Immunoassay by [employer]. Total PSA values by differing methodologies cannot be interchanged. Prostate specific Ag [Mass/V ol]on 06-03-2022 Interpretation and review of laboratory results Normal [facility] TESTOSTERONE TOTALon 023 Testosterone [Mass/Vol] ng/dL Low 193 - 824 ng/dL [facility] Comment on above: A testosterone level in the 193-320 ng/dL range with associated clinical symptoms is considered low and may indicate hypogonadism (from NEJM 2010 363:123-135). Results >320 ng/dL are considered normal. Result rechecked. Testosterone [Mass/Vol]on Interpretation and review of laboratory results Abnormal [facility] PET+CT Guidance for localiza tion of tumor of Whole body-- W 18F-FDG Marisol 06-02-2022 Radiology Study observation (narrative) [facility] CALCIUMon 05-17-2022 Calcium [Mass/Vol] 9.4 mg/dL Normal 8.5-10.1 [facility] Comment on above: Performed By: #### C SORAIDA ONOFRE #### [facility] [address] [place] [address] Dr. Samantha Samuels Covid-19 PCR ([facility])on SARS-CoV-2 (COVID-19) RNA DELIA+probe Ql (Unsp spec) Not detected Normal NOT DETECTED [facility] Comment on above: Result Comment: This test is not yet approved or cleared by the [place] FDA. When there are no FDA-approved or cleared tests available, and other criteria are met, FDA can make tests available under an emergency access mechanism called an Emergency Use Authorization (EUA). The EUA for this test is supported by the [employer] of Health and Human Service's (HHS's) declaration [...] with SARS-CoV-2. Performed By: #### C JEMIMA, SORAIDA #### [facility] [address] [place] [address] Dr. Samantha Samuels INFLUENZA A AND B AGon 05-17 INFLUANEGH SEE BELOW Normal [facility] Comment on above: Result Comment: Nega tive for Flu A protein angiten. Infection due to Flu A cannot be ruled out. Flu A angiten in the sample may be below the detection limit of the test. Performed By: #### C MP, CMADM #### [facility] [address] [place] [address] Dr. Samantha Samuels [facility] SEE BELOW Normal [facility] Comment on above: Result Comment: Nega tive for Flu B protein antigen. Infection due to Flu B cannot be ruled out. Flu B antigen in the sample may be below the detection limit of the test. Performed By: #### C MP, CMADM #### [facility] [address] [place] [address] Dr. Samantha Samuels INFLUENZA A AG Negative Normal NEGATIVE SEE COMMENT [facility] Comment on above: Performed By: #### C MP, CMADM #### [facility] [address] [place] [address] Dr. Samantha Samuels INFLUENZA B AG Negative Normal NEGATIVE SEE COMMENT [facility] Comment on above: Performed By: #### C JEMIMA, CMADM #### [facility] [address] [place] [address] Dr. Samantha Samuels NM STRESS/REST MULTIon 03-24 NM STRESS/REST MULTI Patient: JM BARROW Exam Date: 03/24/2022 : 1945 Gender:M Ordering : DR ARLINE OROSCO . Admission #: [id number] Family : Order #: [id number] CLICK HERE TO VIEW EXAM RADIOLOGY REPORT [...] study was normal per attending physician Dr. Samsa . For more details please see separate cardiac stress test report. FINDINGS: QUALITY OF STUDY: Good. PERFUSION DEFECT: LOCATION: Basal inferoseptal. Mid-anterior. Mid-inferoseptal. Apical anterior. Anderson. SIZE: Large (5 or more segments). SEVERITY: [...] Villar MD on 03/24/2022 at 13:00 [address] [facility] CT LUNG CANCER SCREENINGon 1 05-21-2021 [...] by: SKINNY VILLAR Date: 2022-03-21 07:45 Normal [facility] INSULINon 03-19-2022 Insulin 5.9 uIU/mL Normal 2.6-24.9 [facility] Comment on above: Performed By: #### C JEMIMA, CMADM #### [facility] [address] [place] [address] Dr. Samantha Samuels CBC AUTO DIFFon 03-18-2022 BASO # 0.1 103/ul Normal 0.0-0.1 [facility] Comment on above: Performed By: #### C MP, CMADM #### [facility] [address] [place] [address] Dr. Samantha Samuels Basophils/100 WBC (Bld) 1.0 % Normal 0.2-2.0 [facility] Comment on above: Performed By: #### C JEMIMA, CMADM #### [facility] [address] [place] [address] Dr. Samantha Samuels EO # 0.7 103/ul Normal 0.0-0.7 [facility] Comment on above: Performed By: #### C JEMIMA, CMADM #### [facility] [address] [place] [address] Dr. Samantha Samuels Eosinophils/100 WBC (Bld) 9.8 % Critically high 0.9-7.0 [facility] Comment on above: Performed By: #### C JEMIMA, CMADM #### [facility] [address] [place] [address] Dr. Samantha Samuels Erythrocyte distribution width (RBC) [Ratio] 12.7 % Normal 11.0-15.0 [facility] Comment on above: Performed By: #### C JEMIMA, CMADM #### [facility] [address] [place] [address] Dr. Samantha Samuels Hematocrit (Bld) [Volume fraction] 41.7 % Critically low 42.0-54.0 [facility] Comment on above: Performed By: #### C JEMIMA, CMADM #### [facility] [address] [place] [address] Dr. Samantha Samuels Hemoglobin (Bld) [Mass/Vol] 14.2 g/dL Normal 14.0-18.0 [facility] Comment on above: Performed By: #### C MP, CMADM #### [facility] [address] [address] [address] Samantha Samuels IG # 0.01 10e3/ul Normal 0.00-0.03 [facility] Comment on above: Performed By: #### C MP, CMADM #### [facility] [address] [address] [address] Samantha Samuels IG % 0.1 % Normal 0.0-0.5 [facility] Comment on above: Performed By: #### C MP, CMADM #### [facility] [address] [address] [address] Samantha Samuels LYMPH # 1.7 103/ul Normal 1.2-3.8 [facility] Comment on above: Performed By: #### C MP, CMADM #### [facility] [address] [address] [address] Samantha Samuels Lymphocytes/100 WBC (Bld) 24.7 % Normal 20.5-60.0 [facility] Comment on above: Performed By: #### C MP, CMADM #### [facility] [address] [address] [address] Samantha Samuels MANUAL DIFF REQ NO Normal [facility] Comment on above: Performed By: #### C MP, CMADM #### [facility] [address] [address] [address] Samantha Samuels MCH (RBC) [Entitic mass] 31.7 pg Normal 25.9-34.0 [facility] Comment on above: Performed By: #### C MP, CMADM #### [facility] [address] [address] [address] Samantha Samuels MCHC (RBC) [Mass/Vol] 34.1 g/dL Normal 29.9-35.2 [facility] Comment on above: Performed By: #### C MP, CMADM #### [facility] [address] [address] [address] Samantha Samuels MCV (RBC) [Entitic vol] 93.1 fL Normal 80.0-94.0 [facility] Comment on above: Performed By: #### C MP, CMADM #### [facility] [address] [address] [address] Samantha Samuels MONO # 0.6 103/ul Normal 0.3-0.8 [facility] Comment on above: Performed By: #### C MP, CMADM #### [facility] [address] [address] [address] Samantha Samuels Monocytes/100 WBC (Bld) 8.6 % Normal 1.7-12.0 [facility] Comment on above: Performed By: #### C MP, CMADM #### [facility] [address] [place] [address] Dr. Samantha Samuels NEUT # 3.7 103/ul Normal 1.4-6.5 [facility] Comment on above: Performed By: #### C JEMIMA, CMADM #### [facility] [address] [place] [address] Dr. Samantha Samuels Neutrophils/100 WBC (Bld) 55.8 % Normal 43.0-75.0 [facility] Comment on above: Performed By: #### C JEMIMA, CMADM #### [facility] [address] [place] [address] Dr. Samantha Samuels Platelet mean volume (Bld) [Entitic vol] 8.8 fL Critically low 9.5-13.5 [facility] Comment on above: Performed By: #### C JEMIMA, CMADM #### [facility] [address] [place] [address] Dr. Samantha Samuels PLT 228 103/ul Normal 150-450 [facility] Comment on above: Performed By: #### C JEMIMA, CMADM #### [facility] [address] [place] [address] Dr. Samantha Samuels RBC 4.48 106/ul Critically low 4.70-6.10 [facility] Comment on above: Performed By: #### C JEMIMA, CMADM #### [facility] [address] [place] [address] Dr. Samantha Samuels WBC 6.7 103/ul Normal 4.0-11.0 [facility] Comment on above: Performed By: #### C MP, CMADM #### [facility] [address] [place] [address] Dr. Samantha Samuels GLYCOHEMOGLOBIN A1Con 2021 ADA RECOMMENDATION SEE BELOW Normal [facility] Comment on above: Result Comment: ADA RECOMMENDED LIMIT 4.0 - 6.0 ADA THERAPEUTIC TARGET < 7.0 ACTION SUGGESTED > 7.0 Performed By: #### A 1C #### [facility] [address] [place] [address] Dr. Samantha Samuels Glucose [Mass/Vol] 103 mg/dL Normal [facility] Comment on above: Performed By: #### A 1C #### [facility] [address] [place] [address] Dr. Samantha Samuels HbA1c (Bld) [Mass fraction] 5.2 % Normal 4.5-6.2 [facility] Comment on above: Performed By: #### A 1C #### [facility] [address] [place] [address] Dr. Samantha Samuels LIPID PROFILEon 03-18-2022 CHOL-HDL RATIO NORM SEE BELOW Normal [facility] Comment on above: Result Comment: 3.3 - 4.4 LOW RISK 4.4 - 7.1 AVERAGE RISK 7.1 - 11.0 MODERATE RISK >11.0 HIGH RISK Performed By: #### L IPID, URIC, CMP #### [facility] [address] [place] [address] Dr. Samantha Samuels Cholesterol [Mass/Vol] 189 mg/dL Normal <=200 [facility] Comment on above: Performed By: #### L IPID, URIC, CMP #### [facility] [address] [place] [address] Dr. Samantha Samuels Cholesterol in HDL [Mass/Vol] 54 mg/dL Normal 40-60 [facility] Comment on above: Performed By: #### L IPID, URIC, CMP #### [facility] [address] [place] [address] Dr. Samantha Samuels Cholesterol in LDL [Mass/Vol] 121.2 mg/dL Normal [facility] Comment on above: Performed By: #### L IPID, URIC, CMP #### [facility] [address] [address] [address] Samantha Samuels Cholesterol.total/ Cholesterol in HDL [Mass ratio] 3.5 {ratio} Normal [facility] Comment on above: Performed By: #### L IPID, URIC, CMP #### [facility] [address] [address] [address] Samantha Samuels HDL NORMAL > or = 60 mg/dl - LO W CARDIOVASCULAR RISK <40 mg/dl - HIGH CARDIOVASCULAR RISK Normal [facility] Comment on above: Performed By: #### L IPID, URIC, CMP #### [facility] [address] [address] [address] Samantha Samuels LDL CALC NORMAL SEE BELOW Normal [facility] Comment on above: Result Comment: <100 mg/dl OPTIMAL 100 - 129 mg/dl NEAR OR ABOVE OPTIMAL 130 - 159 mg/dl BORDERLINE HIGH 160 - 189 mg/dl HIGH >190 mg/dl VERY HIGH Performed By: #### L IPID, URIC, CMP #### [facility] [address] [address] [address] Samantha Samuels Triglyceride [Mass/Vol] 69 mg/dL Normal <=150 [facility] Comment on above: Performed By: #### L IPID, URIC, CMP #### [facility] [address] [address] [address] Samantha Samuels VLDL CALC 13.8 mg/dL Normal [facility] Comment on above: Performed By: #### L IPID, URIC, CMP #### [facility] [address] [address] [address] Samantha Samuels PROF 14(COMP METB)on 022 Albumin [Mass/Vol] 3.9 g/dL Normal 3.4-5.0 [facility] Comment on above: Performed By: #### L IPID, URIC, CMP #### [facility] [address] [address] [address] Samantha Samuels Albumin/Globulin [Mass ratio] 1.0 {ratio} Normal [facility] Comment on above: Performed By: #### L IPID, URIC, CMP #### [facility] [address] [address] [address] Samantha Samuels ALP [Catalytic activity/Vol] 45 U/L Critically low 46-116 [facility] Comment on above: Performed By: #### L IPID, URIC, CMP #### [facility] [address] [place] [address] Dr. Samantha Samuels ALT [Catalytic activity/Vol] 16 U/L Normal 16-63 [facility] Comment on above: Performed By: #### L IPID, URIC, CMP #### [facility] [address] [place] [address] Dr. Samantha Samuels Anion gap [Moles/Vol] 6.2 mmol/L Normal [facility] Comment on above: Performed By: #### L IPID, URIC, CMP #### [facility] [address] [place] [address] Dr. Samantha Samuels AST [Catalytic activity/Vol] 16 U/L Normal 15-37 [facility] Comment on above: Performed By: #### L IPID, URIC, CMP #### [facility] [address] [place] [address] Dr. Samantha Samuels Bilirubin [Mass/Vol] 0.5 mg/dL Normal 0.2-1.0 [facility] Comment on above: Performed By: #### L IPID, URIC, CMP #### [facility] [address] [place] [address] Dr. Samantha Samuels Calcium [Mass/Vol] 9.4 mg/dL Normal 8.5-10.1 [facility] Comment on above: Performed By: #### L IPID, URIC, CMP #### [facility] [address] [place] [address] Dr. Samantha Samuels Chloride [Moles/Vol] 106 mmol/L Normal 98-107 [facility] Comment on above: Performed By: #### L IPID, URIC, CMP #### [facility] [address] [place] [address] Dr. Samantha Samuels CO2 [Moles/Vol] 32.2 mmol/L Critically high 21.0-32.0 [facility] Comment on above: Performed By: #### L IPID, URIC, CMP #### [facility] [address] [place] [address] Dr. Samantha Samuels Creatinine [Mass/Vol] 0.82 mg/dL Normal 0.70-1.30 [facility] Comment on above: Performed By: #### L IPID, URIC, CMP #### [facility] [address] [place] [address] Dr. Samantha Samuels EGFR-AF KAZAKH >60 Normal >=60 [facility] Comment on above: Result Comment: Prev iously reported as: (blank) On 03/18/2022 10:54 By KD3 Performed By: #### L IPID, URIC, CMP #### [facility] [address] [place] [address] Dr. Samantha Samuels EGFR-NON AF KAZAKH >60 Normal >=60 [facility] Comment on above: Result Comment: Prev iously reported as: (blank) On 03/18/2022 10:54 By KD3 Performed By: #### L IPID, URIC, CMP #### [facility] [address] [place] [address] Dr. Samantha Samuels Globulin (S) [Mass/Vol] 3.8 g/dL Normal [facility] Comment on above: Performed By: #### L IPID, URIC, CMP #### [facility] [address] [place] [address] Dr. Samantha Samuels Glucose [Mass/Vol] 101 mg/dL Normal 74-106 [facility] Comment on above: Performed By: #### L IPID, URIC, CMP #### [facility] [address] [place] [address] Dr. Samantha Samuels Potassium [Moles/Vol] 4.4 mmol/L Normal 3.5-5.1 [facility] Comment on above: Performed By: #### L IPID, URIC, CMP #### [facility] [address] [place] [address] Dr. Samantha Samuels Protein [Mass/Vol] 7.7 g/dL Normal 6.4-8.2 [facility] Comment on above: Performed By: #### L IPID, URIC, CMP #### [facility] [address] [place] [address] Dr. Samantha Samuels Sodium [Moles/Vol] 140 mmol/L Normal 136-145 [facility] Comment on above: Performed By: #### L IPID, URIC, CMP #### [facility] [address] [place] [address] Dr. Samantha Samuels Urea nitrogen [Mass/Vol] 17.0 mg/dL Normal 7.0-18.0 [facility] Comment on above: Performed By: #### L IPID, URIC, CMP #### [facility] [address] [place] [address] Dr. Samantha Samuels Urea nitrogen/Creatinin e [Mass ratio] 20.7 mg/mg Normal [facility] Comment on above: Performed By: #### L IPID, URIC, CMP #### [facility] [address] [place] [address] Dr. Samantha Samuels URIC ACID SERUMon 03-18-2022 Urate [Mass/Vol] 4.5 mg/dL Normal 3.5-7.2 [facility] Comment on above: Performed By: #### L IPID, URIC, CMP #### [facility] [address] [place] [address] Dr. Samantha Samuels VITAMIN D 25 OHon 03-18-2022 VIT D 25-OH 73.5 ng/mL Normal [facility] Comment on above: Performed By: #### C SORAIDA ONOFRE #### [facility] [address] [place] [address] Dr. Samantha Samuels VIT D RANGES SEE BELOW Normal [facility] Comment on above: Result Comment: <20 ng/mL Vit D deficient 20 - <30 ng/mL Vit D insufficient 30 - 100 ng/mL Vit D sufficient >100 ng/mL Potential Toxicity Performed By: #### C SORAIDA ONOFRE #### [facility] [address] [place] [address] Dr. Samantha Samuels CALCIUMon 11-18-2021 Calcium [Mass/Vol] 10.3 mg/dL Critically high 8.5-10.1 [facility] Comment on above: Performed By: #### C A #### [facility] [address] [address] [address] Samantha Samuels Covid-19 PCR ([facility])on SARS-CoV-2 (COVID-19) RNA DELIA+probe Ql (Unsp spec) Not detected Normal NOT DETECTED [facility] Comment on above: Result Comment: This test is not yet approved or cleared by the [place] FDA. When there are no FDA-approved or cleared tests available, and other criteria are met, FDA can make tests available under an emergency access mechanism called an Emergency Use Authorization (EUA). The EUA for this test is supported by the [place] of Health and Human Service's (HHS's) declaration [...] SARS-CoV-2. Performed By: #### C VDTB #### [facility] [address] [address] [address] Samantha Samuels SYMPTOMATIC COVID-19 ANTIGEN on 11-17-2021 EUA Statement SEE BELOW Normal [facility] Comment on above: Result Comment: This [...] sooner. Performed By: #### C VDAGS #### [facility] [address] [place] [address] Dr. Samantha Samuels SARS-CoV-2 (COVID-19) RNA DELIA+probe Ql (Unsp spec) Negative Normal NEGATIVE [facility] Comment on above: Performed By: #### C VDAGS #### [facility] [address] [address] [address] Samantha Samuels [facility]14 SARS-CoV-2 (COVID-19) RNA DELIA+probe Ql (Unsp spec) Not detected Normal NOT DETECTED [facility] Comment on above: Result Comment: This test is not yet approved or cleared by the [place] FDA. When there are no FDA-approved or cleared tests available, and other criteria are met, FDA can make tests available under an emergency access mechanism called an Emergency Use Authorization (EUA). The EUA for this test is supported by the [place] of Health and Human Service's (HHS's) declaration [...] consistent with SARS-CoV-2. Performed By: #### C MP, CMADM #### [facility] [address] [place] [address] Dr. Samantha Samuels INFLUENZA A AND B AGon 09-07 INFLUANEGH SEE BELOW Normal [facility] Comment on above: Result Comment: Nega tive for Flu A protein angiten. Infection due to Flu A cannot be ruled out. Flu A angiten in the sample may be below the detection limit of the test. Performed By: #### C MP, CMADM #### [facility] [address] [place] [address] Dr. Samantha [facility] BEL[facility] Normal [facility] Comment on above: Result Comment: Nega tive for Flu B protein antigen. Infection due to Flu B cannot be ruled out. Flu B antigen in the sample may be below the detection limit of the test. Performed By: #### C MP, CMADM #### [facility] [address] [place] [address] Dr. Samantha Samuels INFLUENZA A AG Negative Normal NEGATIVE SEE COMMENT [facility] Comment on above: Performed By: #### C MP, CMADM #### [facility] [address] [place] [address] Dr. Samantha Samuels INFLUENZA B AG Negative Normal NEGATIVE SEE COMMENT [facility] Comment on above: Performed By: #### C MP, CMADM #### [facility] [address] [place] [address] Dr. Samantha Samuels INTERNAL CONTROLS Within Normal Limits Normal Wi thin Normal Limits [facility] Comment on above: Performed By: #### C MP, CMADM #### [facility] [address] [place] [address] Dr. Samantha Samuels Vital Signs Date Time Vital Sign Value Performing Clinician Facility 02-15-2024 14:30-0400 Body height 177.8 cm Jose Francisco Broussard MD Work Phone: [facility] 02-15-2024 14:30-0400 Body mass index (BMI) [Ratio] 24.8 kg/m2 Jose Francisco Broussard MD Work Phone: [facility] 02-15-2024 14:30-0400 Body temperature 97.81 [degF] Jose Francisco Broussard MD Work Phone: [facility] 02-15-2024 14:30-0400 Body weight 78.4 kg Jose Francisco Broussard MD Work Phone: [facility] 02-15-2024 14:30-0400 Diastolic blood pressure 77 mm[Hg] Jose Francisco Broussard MD Work Phone: [facility] 02-15-2024 14:30-0400 Heart rate 51 /min Jose Francisco Broussard MD Work Phone: [facility] 02-15-2024 14:30-0400 Respiratory rate 16 /min Jose Francisco Broussard MD Work Phone: [facility] 02-15-2024 14:30-0400 SaO2% (BldA) [Mass fraction] 98 % Jose Francisco Broussard MD Work Phone: [facility] 02-15-2024 14:30-0400 Systolic blood pressure 131 mm[Hg] Jose Francisco Broussard MD Work Phone: [facility] 02-15-2024 14:06-0400 Body mass index (BMI) [Ratio] 24.8 kg/m2 CALVIN Guzman MD Work Phone: [facility] 02-15-2024 14:06-0400 Body temperature 97.81 [degF] CALVIN Guzman MD Work Phone: [facility] 02-15-2024 14:06-0400 Body weight 78.4 kg CALVIN Guzman MD Work Phone: [facility] 02-15-2024 14:06-0400 Diastolic blood pressure 77 mm[Hg] CALVIN Guzman MD Work Phone: [facility] 02-15-2024 14:06-0400 Heart rate 51 /min CALVIN Guzman MD Work Phone: [facility] 02-15-2024 14:06-0400 Respiratory rate 16 /min CALVIN Guzman MD Work Phone: [facility] 02-15-2024 14:06-0400 SaO2% (BldA) [Mass fraction] 98 % CALVIN Guzman MD Work Phone: [facility] 02-15-2024 14:06-0400 Systolic blood pressure 131 mm[Hg] CALVIN Guzman MD Work Phone: [facility] 12-20-2023 13:48-0400 Body mass index (BMI) [Ratio] 25.37 kg/m2 Isadora Machelle PA-C Work Phone: [facility] 12-20-2023 13:48-0400 Body temperature 97.2 [degF] Isadora Machelle PA-C Work Phone: [facility] 12-20-2023 13:48-0400 Body weight 80.2 kg Isadora Machelle PA-C Work Phone: [facility] 12-20-2023 13:48-0400 Diastolic blood pressure 74 mm[Hg] Isadora Machelle PA-C Work Phone: [facility] 12-20-2023 13:48-0400 Heart rate 69 /min Isadora Machelle PA-C Work Phone: [facility] 12-20-2023 13:48-0400 Respiratory rate 16 /min Isadora Machelle PA-C Work Phone: [facility] 12-20-2023 13:48-0400 SaO2% (BldA) [Mass fraction] 96 % Isadora Machelle PA-C Work Phone: [facility] 12-20-2023 13:48-0400 Systolic blood pressure 135 mm[Hg] Isadora Machelle PA-C Work Phone: [facility] 11-14-2023 14:20-0400 Body height 182.88 cm MD Arline Orosco Work Phone: [facility] 11-14-2023 14:20-0400 Body mass index (BMI) [Ratio] 24.4 kg/m2 MD Arline Orosco Work Phone: [facility] 11-14-2023 14:20-0400 Body temperature 97.6 [degF] MD Arline Orosco Work Phone: [facility] 11-14-2023 14:20-0400 Body weight 81.64 kg MD Arline Orosco Work Phone: [facility] 11-14-2023 14:20-0400 Diastolic blood pressure 62 mm[Hg] MD Arline Orosco Work Phone: [facility] 11-14-2023 14:20-0400 Heart rate 74 /min MD Arline Orosco Work Phone: [facility] 11-14-2023 14:20-0400 Respiratory rate 16 /min MD Arline Orosco Work Phone: [facility] 11-14-2023 14:20-0400 SaO2% (BldA) [Mass fraction] 98 % MD Arline Orosco Work Phone: [facility] 11-14-2023 14:20-0400 Systolic blood pressure 106 mm[Hg] MD Arline Orosco Work Phone: [facility] 08-17-2023 10:20-0400 Body height 177.8 cm Jose Francisco Broussard MD Work Phone: [facility] 08-17-2023 10:20-0400 Body temperature 97.9 [degF] Jose Francisco Broussard MD Work Phone: [facility] 08-17-2023 10:20-0400 Body weight 83.6 kg Jose Francisco Broussard MD Work Phone: [facility] 08-17-2023 10:20-0400 Diastolic blood pressure 66 mm[Hg] Jose Francisco Broussard MD Work Phone: [facility] 08-17-2023 10:20-0400 Heart rate 71 /min Jose Francisco Broussard MD Work Phone: [facility] 08-17-2023 10:20-0400 Respiratory rate 16 /min Jose Francisco Broussard MD Work Phone: [facility] 08-17-2023 10:20-0400 SaO2% (BldA) [Mass fraction] 97 % Jose Francisco Broussard MD Work Phone: [facility] 04-04-2024 10:20-0400 Systolic blood pressure 118 mm[Hg] Jose Francisco Broussard MD Work Phone: [facility] 06-26-2023 10:16-0500 Body height 177.8 cm Jose Francisco Broussard MD Work Phone: [facility] 06-26-2023 10:16-0500 Body temperature 97.5 [degF] Jose Francisco Broussard MD Work Phone: [facility] 06-26-2023 10:16-0500 Body weight 81.1 kg Jose Francisco Broussard MD Work Phone: [facility] 06-26-2023 10:16-0500 Diastolic blood pressure 54 mm[Hg] Jose Francisco Broussard MD Work Phone: [facility] 06-26-2023 10:16-0500 Heart rate 85 /min Jose Francisco Broussard MD Work Phone: [facility] 06-26-2023 10:16-0500 Respiratory rate 18 /min Jose Francisco Broussard MD Work Phone: [facility] 06-26-2023 10:16-0500 SaO2% (BldA) [Mass fraction] 97 % Jose Francisco Broussard MD Work Phone: [facility] 06-26-2023 10:16-0500 Systolic blood pressure 99 mm[Hg] Jose Francisco Broussard MD Work Phone: [facility] 02-23-2023 13:23-0400 Body temperature 97.39 [degF] CALVIN Guzman MD Work Phone: [facility] 02-23-2023 13:23-0400 Body weight 83.46 kg CALVIN Guzman MD Work Phone: [facility] 02-23-2023 13:23-0400 Diastolic blood pressure 68 mm[Hg] CALVIN Guzman MD Work Phone: [facility] 02-23-2023 13:23-0400 Heart rate 64 /min CALVIN Guzman MD Work Phone: [facility] 02-23-2023 13:23-0400 Respiratory rate 16 /min CALVIN Guzman MD Work Phone: [facility] 02-23-2023 13:23-0400 SaO2% (BldA) [Mass fraction] 95 % CALVIN Guzman MD Work Phone: [facility] 02-23-2023 13:23-0400 Systolic blood pressure 109 mm[Hg] CALVIN Guzman MD Work Phone: [facility] 12-07-2022 14:01-0400 Body height 182.9 cm Manny Meza MD Work Phone: [facility] 12-07-2022 14:01-0400 Body weight 79.83 kg Manny Meza MD Work Phone: [facility] 12-07-2022 14:01-0400 Diastolic blood pressure 63 mm[Hg] Manny Meza MD Work Phone: [facility] 12-07-2022 14:01-0400 Heart rate 76 /min Manny Meza MD Work Phone: [facility] 12-07-2022 14:01-0400 Systolic blood pressure 108 mm[Hg] Manny Meza MD Work Phone: [facility] 11-24-2022 13:39-0400 Diastolic blood pressure 70 mm[Hg] CALVIN Guzman MD Work Phone: [facility] 11-24-2022 13:39-0400 Heart rate 63 /min CALVIN Guzman MD Work Phone: [facility] 11-24-2022 13:39-0400 Systolic blood pressure 111 mm[Hg] CALVIN Guzman MD Work Phone: [facility] 11-24-2022 13:38-0400 Body temperature 97 [degF] CALVIN Guzman MD Work Phone: [facility] 11-24-2022 13:38-0400 Body weight 80.2 kg CALVIN Guzman MD Work Phone: [facility] 11-24-2022 13:38-0400 Respiratory rate 18 /min CALVIN Guzman MD Work Phone: [facility] 11-24-2022 13:38-0400 SaO2% (BldA) [Mass fraction] 97 % CALVIN Guzman MD Work Phone: [facility] 10-18-2022 10:13-0400 Diastolic blood pressure 50 mm[Hg] Arline M Hoy Work Phone: [facility] 600 DO Work Phone: 10-18-2022 10:13-0400 Diastolic blood pressure 48 mm[Hg] Arline M Hoy Work Phone: [facility] 600 DO Work Phone: 10-18-2022 10:13-0400 Systolic blood pressure 82 mm[Hg] Arline M Hoy Work Phone: [facility] 600 DO Work Phone: 10-18-2022 10:13-0400 Systolic blood pressure 72 mm[Hg] Arline M Hoy Work Phone: [facility] 600 DO Work Phone: 10-18-2022 [id number] 58 1 Arline M Hoy Work Phone: [facility] 600 DO Work Phone: Comment on above: [employer] 10-18-2022 [id number] 56 1 Arline M Hoy Work Phone: [facility] 600 DO Work Phone: Comment on above: [employer] 10-18-2022 09:54-0400 Body height 182.88 cm Arline M Hoy Work Phone: [facility] 600 DO Work Phone: 10-18-2022 09:54-0400 Body mass index (BMI) [Ratio] 24.82 kg/m2 Arline Garciay Work Phone: [facility] 600 DO Work Phone: 10-18-2022 09:54-0400 Body surface area Derived from formula 2.05 m2 Arline Garciay Work Phone: [facility] 600 DO Work Phone: 10-18-2022 09:54-0400 Body weight 83.01 kg Arline Garciay Work Phone: [facility] 600 DO Work Phone: 10-18-2022 09:54-0400 Diastolic blood pressure 60 mm[Hg] Arline Orosco Work Phone: [facility] 600 DO Work Phone: 10-18-2022 09:54-0400 Heart rate 58 /min Arline Garciay Work Phone: [facility] 600 DO Work Phone: 10-18-2022 09:54-0400 Systolic blood pressure 90 mm[Hg] Arline Orosco Work Phone: [facility] 600 DO Work Phone: 09-22-2022 12:52-0400 Body height 182.9 cm Jose Francisco Broussard MD Work Phone: [facility] 09-22-2022 12:52-0400 Body temperature 97.39 [degF] Jose Francisco Broussard MD Work Phone: [facility] 09-22-2022 12:52-0400 Body weight 79.02 kg Jose Francisco Broussard MD Work Phone: [facility] 09-22-2022 12:52-0400 Diastolic blood pressure 49 mm[Hg] Jose Francisco Broussard MD Work Phone: [facility] 09-22-2022 12:52-0400 Heart rate 79 /min Jose Francisco Broussard MD Work Phone: [facility] 09-22-2022 12:52-0400 Respiratory rate 16 /min Jose Francisco Broussard MD Work Phone: [facility] 09-22-2022 12:52-0400 SaO2% (BldA) [Mass fraction] 94 % Jose Francisco Broussard MD Work Phone: [facility] 09-22-2022 12:52-0400 Systolic blood pressure 92 mm[Hg] Jose Francisco Broussard MD Work Phone: [facility] 09-01-2022 12:55-0400 Body height 182.88 cm Arline M Hoy Work Phone: [facility] 250 DO Work Phone: 09-01-2022 12:55-0400 Body mass index (BMI) [Ratio] 24.82 kg/m2 Arline M Hoy Work Phone: [facility] 250 DO Work Phone: 09-01-2022 12:55-0400 Body surface area Derived from formula 2.05 m2 Arline M Hoy Work Phone: [facility] 250 DO Work Phone: 09-01-2022 12:55-0400 Body weight 83.01 kg Arline M Hoy Work Phone: [facility] 250 DO Work Phone: 09-01-2022 12:55-0400 Diastolic blood pressure 62 mm[Hg] Arline M Hoy Work Phone: [facility] 250 DO Work Phone: 09-01-2022 12:55-0400 Heart rate 42 /min Arline M Hoy Work Phone: [facility] 250 DO Work Phone: 09-01-2022 12:55-0400 Systolic blood pressure 108 mm[Hg] Arline M Hoy Work Phone: [facility] 250 DO Work Phone: 06-20-2022 16:04-0500 Body temperature 97 [degF] Jose Francisco Broussard MD Work Phone: [facility] 06-20-2022 16:04-0500 Body weight 80.92 kg Jose Francisco Broussard MD Work Phone: [facility] 06-20-2022 16:04-0500 Diastolic blood pressure 88 mm[Hg] Jose Francisco Broussard MD Work Phone: [facility] 06-20-2022 16:04-0500 Heart rate 70 /min Jose Francisco Broussard MD Work Phone: [facility] 06-20-2022 16:04-0500 Respiratory rate 16 /min Jose Francisco Broussard MD Work Phone: [facility] 06-20-2022 16:04-0500 SaO2% (BldA) [Mass fraction] 98 % Jose Francisco Broussard MD Work Phone: [facility] 06-20-2022 16:04-0500 Systolic blood pressure 143 mm[Hg] Jose Francisco Broussard MD Work Phone: [facility] 06-07-2022 13:21-0500 Body temperature 97.59 [degF] CALVIN Guzman MD Work Phone: [facility] 06-07-2022 13:21-0500 Body weight 82.1 kg CALVIN Guzman MD Work Phone: [facility] 06-07-2022 13:21-0500 Diastolic blood pressure 89 mm[Hg] CALVIN Guzman MD Work Phone: [facility] 06-07-2022 13:21-0500 Heart rate 57 /min CALVIN Guzman MD Work Phone: [facility] 06-07-2022 13:21-0500 Respiratory rate 18 /min CALVIN Guzman MD Work Phone: [facility] 06-07-2022 13:21-0500 SaO2% (BldA) [Mass fraction] 99 % CALVIN Guzman MD Work Phone: [facility] 06-07-2022 13:21-0500 Systolic blood pressure 169 mm[Hg] CALVIN Guzman MD Work Phone: [facility] 03-22-2022 13:09-0500 Body temperature 97.39 [degF] CALVIN Guzman MD Work Phone: [facility] 03-22-2022 13:09-0500 Body weight 81.65 kg CALVIN Guzman MD Work Phone: [facility] 03-22-2022 13:09-0500 Diastolic blood pressure 64 mm[Hg] CALVIN Guzman MD Work Phone: [facility] 03-22-2022 13:09-0500 Heart rate 56 /min CALVIN Guzman MD Work Phone: [facility] 03-22-2022 13:09-0500 Respiratory rate 18 /min CALVIN Guzman MD Work Phone: [facility] 03-22-2022 13:09-0500 SaO2% (BldA) [Mass fraction] 97 % CALVIN Guzman MD Work Phone: [facility] 03-22-2022 13:09-0500 Systolic blood pressure 125 mm[Hg] CALVIN Guzman MD Work Phone: [facility] Encounters Encounter Date Encounter Type Care Provider Facility Start: 04-26-2024 End: 04-26-2024 Bamboo flowsheet Oneil Castro DPM Work Phone: [facility] Start: 04-26-2024 End: 04-26-2024 Bamboo flowsheet Oneil Castro DPM Work Phone: [facility] Start: 04-26-2024 End: 04-26-2024 Office outpatient visit 15 minutes Oneil Castro DPM Work Phone: [facility] Comment on above: Onychomycosis (Prima ry Dx); Peripheral arterial disease (CMS/HCC); Corns and callosities; 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 Start: 04-26-2024 End: 04-26-2024 ambulatory ONEIL CASTRO Not Available Start: 04-09-2024 End: 04-09-2024 Refill Jose Francisco Broussard MD Work Phone: Hematology/Oncology Comment on above: Refill Request Start: 02-19-2024 End: 02-20-2024 ambulatory Jose Francisco Broussard MD Work Phone: Hematology/Oncology Comment on above: PTH Related Peptide Start: 02-15-2024 End: 02-15-2024 ambulatory Jose Francisco Broussard MD Work Phone: Hematology/Oncology Comment on above: Prostate cancer (HCC ) (Primary Dx); Osteopenia of multiple sites Start: 02-15-2024 End: 02-15-2024 Patient encounter procedure Jose Francisco Broussard MD Work Phone: Hematology/Oncology Comment on above: Malignant neoplasm o f prostate (HCC) (Primary Dx) Start: 02-15-2024 End: 02-15-2024 Telephone encounter Ace Guzman MD Work Phone: Cancer [facility] Start: 02-12-2024 End: 02-12-2024 ambulatory ARLINE OROSCO Facility:[facility] Start: 01-10-2024 End: 01-10-2024 ambulatory [facility] Start: 12-20-2023 End: 12-20-2023 ambulatory Lab/[facility] Work Phone: Hematology/Oncology Comment on above: Prostate cancer (HCC ) (Primary Dx); Osteopenia of multiple sites Start: 12-20-2023 End: 12-20-2023 Office outpatient visit 25 minutes Isadora Carty PA-C Work Phone: Hematology/Oncology Comment on above: Prostate cancer (HCC ) (Primary Dx); Pain of right hip; Osteopenia of multiple sites; Encounter for screening for osteoporosis; Hypercalcemia Start: 12-19-2023 End: 12-19-2023 Evaluation and management of inpatient [facility] Start: 12-18-2023 End: 12-18-2023 ambulatory [facility] Start: 12-14-2023 End: 12-14-2023 ambulatory [facility] Facility:[facility] Start: 12-13-2023 Telephone encounter Umer gentile RN Work Phone: Hematology/Oncology Comment on above: Care Coordination (L abs) Start: 12-05-2023 End: 12-05-2023 ambulatory [facility] Start: 11-14-2023 End: 11-14-2023 ambulatory MD Arline Orosco Work Phone: [facility] Work Phone: Start: 11-14-2023 End: 11-14-2023 Patient encounter procedure MD Arline Orosco Work Phone: [facility] Vascular Surgery Work Phone: Start: 10-17-2023 Telephone encounter Daniel Alonzo Hematology/Oncology Comment on above: Results Start: 10-16-2023 End: 10-16-2023 ambulatory [facility] Facility:[facility] Start: 08-30-2023 Refill Jose Francisco Broussard MD Work Phone: Hematology/Oncology Comment on above: Refill Request Start: 08-17-2023 End: 08-17-2023 ambulatory Jose Francisco Broussard MD Work Phone: Hematology/Oncology Comment on above: Prostate cancer (HCC ) (Primary Dx); Osteopenia of multiple sites Start: 08-17-2023 End: 08-17-2023 Patient encounter procedure Jose Francisco Broussard MD Work Phone: RAHWAY Comment on above: Prostate cancer (HCC ) (Primary Dx) Start: 08-15-2023 End: 08-15-2023 ambulatory [facility] Facility:[facility] Start: 08-07-2023 Telephone encounter Jose Francisco au MD Work Phone: Hematology/Oncology Comment on above: Lab Orders Start: 07-21-2023 End: 07-21-2023 ambulatory LOLA ALLEN Facility:[facility] Start: 07-21-2023 End: 07-21-2023 Patient encounter procedure Lola Allen OD Work Phone: Ophthalmology Comment on above: Hypertropia of right eye (Primary Dx); Pseudophakia of both eyes; PVD (posterior vitreous detachment), both eyes Start: 07-04-2023 End: 07-04-2023 Evaluation and management of inpatient LEROY SHAW [facility] Start: 07-03-2023 End: 07-03-2023 ambulatory [facility] Pat Phone Call Provider 1 [facility] - Pre Admit Start: 07-03-2023 End: 07-03-2023 ambulatory ARLINE OROSCO [facility] Start: 06-28-2023 End: 06-28-2023 ambulatory [facility] Start: 06-26-2023 End: 06-26-2023 ambulatory Lab/[facility] Ern[facility] Work Phone: Hematology/Oncology Comment on above: Prostate cancer (HCC ) (Primary Dx); Osteopenia of multiple sites Start: 06-26-2023 End: 06-26-2023 Patient encounter procedure Jose Francisco Broussard MD Work Phone: [place] Start: 06-23-2023 End: 06-23-2023 ambulatory ARLINE OROSCO Facility:[facility] Start: 05-24-2023 End: 05-24-2023 ambulatory JAMES ROBB Facility:[facility] Start: 05-22-2023 End: 05-22-2023 ambulatory BARB KIRAN Facility:[facility] Start: 05-17-2023 End: 05-17-2023 ambulatory Ace GUZMAN Facility:[facility] Start: 05-12-2023 End: 05-12-2023 ambulatory JAMES P HAMILTONEZARIN Facility:[facility] Start: 05-12-2023 End: 05-12-2023 Subsequent hospital visit by physician Arrival Time Radiology Work Phone: Radiology Pet CT Comment on above: Malignant neoplasm o f prostate (HCC) [C61] Start: 04-10-2023 End: 04-10-2023 ambulatory JOSE FRANCISCO BROUSSARD Facility:[facility] Start: 04-10-2023 Telephone encounter Ace Guzman MD Work Phone: [facility] Comment on above: Nm Pet Request Start: 04-03-2023 End: 04-03-2023 ambulatory JOSE FRANCISCO BROUSSARD Facility:[facility] Start: 03-27-2023 End: 03-27-2023 ambulatory ARLINE OROSCO Neurology Start: 03-27-2023 End: 03-27-2023 Patient encounter procedure Skin Biopsy Work Phone: [facility] Start: 03-27-2023 End: 03-27-2023 ambulatory ARLINE OROSCO Neurology Start: 03-27-2023 End: 03-27-2023 Patient encounter procedure Autonomic 1 Neur Main Work Phone: [facility] Start: 02-23-2023 End: 02-24-2023 Patient encounter procedure Ace Guzman MD Work Phone: Radiation Oncology Comment on above: History of prostate cancer (Primary Dx); Prostate cancer (HCC) Start: 02-15-2023 End: 02-16-2023 [facility] Start: 12-28-2022 Telephone encounter Umer gentile RN Work Phone: Hematology/Oncology Comment on above: Care Coordination (R adiation Appointment) Start: 12-26-2022 End: 12-27-2022 ambulatory Lab/[facility] Orozco Work Phone: Hematology/Oncology Comment on above: Osteopenia of multip le sites (Primary Dx); Prostate cancer (HCC) Start: 12-07-2022 End: 12-07-2022 Patient encounter procedure Manny Meza MD Work Phone: Urology Comment on above: Malignant neoplasm o f prostate (HCC) Start: 12-07-2022 ambulatory Manny Meza MD Work Phone: Urology Start: 11-24-2022 End: 11-24-2022 Patient encounter procedure Ace Guzman MD Work Phone: Radiation Oncology Comment on above: Malignant neoplasm o f prostate (HCC) (Primary Dx) Start: 10-18-2022 Office outpatient vi sit 25 minutes Arline Orosco Work Phone: [facility] 600 DO Work Phone: Start: 10-18-2022 ambulatory Baldo Doss y: Start: 10-11-2022 AUDIT Arline Orosco Work Phone: [facility] 250 DO Work Phone: Start: 09-22-2022 End: 09-22-2022 ambulatory Jose Francisco Broussard MD Work Phone: Hematology/Oncology Comment on above: Prostate cancer (HCC ) (Primary Dx); Osteopenia of multiple sites; Primary hypertension Start: 09-22-2022 End: 09-22-2022 Patient encounter procedure Jose Francisco Broussard MD Work Phone: [place] Start: 09-19-2022 Chart Update Arline Orosco Work Phone: [facility] 250 DO Work Phone: Start: 09-02-2022 End: 09-02-2022 ambulatory MD Arlnie Orosco Work Phone: [facility] Work Phone: Start: 09-02-2022 End: 09-02-2022 Patient encounter procedure MD Arline Orosco Work Phone: [facility]-Ultrasound Main [place] Work Phone: Start: 09-01-2022 Office consultation new/estab patient 80 min Arline Orosco Work Phone: [facility] 250 DO Work Phone: Start: 09-01-2022 ambulatory Baldo Doss y: Start: 08-15-2022 ambulatory ARLINE OROSCO Facility: [facility] Start: 08-15-2022 End: 08-15-2022 Subsequent hospital visit by physician [facility] 2 (I-Stat/3t) Work Phone: Radiology Comment on above: Cancer of prostate w /med recur risk (T2b-c or [place] 7 or PSA 10-20) (HCC) [C61] Start: 08-02-2022 End: 08-02-[address] ARLINE OROSCO . Facility:[facility] Start: 07-31-2022 End: 08-01-2022 ambulatory RYLEE LOPEZ Facility:[facility] Start: 07-25-2022 Telephone encounter Teresa Angelo RN Work Phone: Hematology/Oncology Comment on above: Care Coordination (M edication update) Start: 07-21-2022 End: 07-22-2022 ambulatory RYLEE LOPEZ Facility:[facility] Start: 07-18-2022 End: 07-18-2022 Patient encounter procedure Lola Allen OD Work Phone: Ophthalmology Comment on above: Hypertropia of right eye (Primary Dx); Pseudophakia of both eyes; Myopia with astigmatism and presbyopia, bilateral; PVD (posterior vitreous detachment), both eyes; Dry eye syndrome, bilateral Start: 07-13-2022 Telephone encounter Darlene Waterman [facility] Comment on above: Medication Problem Start: 07-07-2022 End: 07-07-2022 ambulatory Lab/[facility] Ernesto Work Phone: Hematology/Oncology Comment on above: Prostate cancer (HCC ) (Primary Dx) Start: 06-27-2022 Telephone encounter Hien Brunner [facility] Work Phone: Hematology/Oncology Comment on above: Medication Update (F KHMER patient deciding to move forward with Xtandi beyond 14 day free trial.) Start: 06-22-2022 Telephone encounter Hien Brunner [facility] Work Phone: [facility] Comment on above: Medication Update (X tandi) Start: 06-21-2022 Telephone encounter Nadira chapa [facility] Work Phone: [facility] Comment on above: Medication Authoriza tion (Xtandi) Start: 06-20-2022 End: 06-20-2022 ambulatory Jose Francisco Broussard MD Work Phone: Hematology/Oncology Comment on above: Prostate cancer (HCC ) (Primary Dx) Start: 06-20-2022 End: 06-20-2022 Patient encounter procedure Jose Francisco Broussard MD Work Phone: [facility]HW[facility] Start: 06-16-2022 Chart abstracting Jose Francisco lnyne MD Work Phone: Hematology/Oncology Start: 06-07-2022 End: 06-07-2022 Patient encounter procedure Ace Guzman MD Work Phone: Radiation Oncology Comment on above: Cancer of prostate w /med recur risk (T2b-c or [place] 7 or PSA 10-20) (HCC) (Primary Dx) Start: 06-02-2022 End: 06-02-2022 Subsequent hospital visit by physician Arrival Time Radiology Work Phone: Radiology Pet CT Comment on above: History of prostate cancer [Z85.46] Start: 05-17-2022 End: 05-18-[address] ARLINE OROSCO . Facility:[facility] Start: 04-19-2022 Telephone encounter Ace Guzman MD Work Phone: Cancer [facility] Comment on above: Nm Pet Request Start: 03-24-2022 End: 03-25-[address] ARLINE OROSCO . Facility:[facility] Start: 03-22-2022 End: 03-22-2022 Patient encounter procedure Ace Guzman MD Work Phone: Radiation Oncology Comment on above: History of prostate cancer (Primary Dx); Cancer of prostate w/med recur risk (T2b-c or [place] 7 or PSA 10-20) (HCC) Start: 03-18-2022 End: 03-19-[address] ARLINE OROSCO . Facility:[facility] Start: 03-14-2022 End: 03-15-[address] ARLINE OROSCO . Facility:[facility] Start: 11-18-2021 End: 11-19-2021 ambulatory LEROY SHAW Facility: Start: 11-17-2021 End: 11-17-[address] ARLINE OROSCO . Facility:[facility] Start: 09-07-2021 End: 09-07-[address] ARLINE OROSCO . Facility:[facility] Start: 08-23-2021 End: 08-23-2021 Patient encounter procedure Lola Faulkner Tiffany OD Work Phone: Ophthalmology Comment on above: Hypertropia of right eye (Primary Dx); Diplopia; Pseudophakia of both eyes; Monocular diplopia of right eye Start: 06-23-2021 Preprocedural examination done Lola Allen OD Work Phone: [facility] Work Phone: Start: 02-28-2017 End: 03-01-2017 Ambulatory DEFAULT PHYSICIAN Facility:[facility] Procedures Date Procedure Procedure Detail Performing Clinician Start: 12-05-2023 Follow-up visit Follow-up LEROY SHAW Start: 11-14-2023 Doppler ultrasonogra phy of bilateral carotid arteries MD Arline Orosco Work Phone: Start: 05-12-[address] atten uation skull base mid-thigh James Robb MD Work Phone: Start: 12-07-2022 Urnls dip stick/tabl et reagent auto microscopy Bulk Order Provider Start: 08-15-2022 Mri pelvis w/o & w/c ontrast material Ace Guzman MD Work Phone: Start: 06-02-[address] atten uation skull base mid-thigh Ace Guzman MD Work Phone: Start: 06-02-2022 Assay of prostate sp ecific antigen total Ace Guzman MD Work Phone: Start: 03-14-2022 PSA screening LEROY CORRIGAN Comment on above: Performed By: #### C MP, CMADM #### [facility] [address] [address] [address] Samantha Samuels Start: 11-18-2021 PSA screening LEROY CORRIGAN Comment on above: Performed By: #### C MP, CMADM #### [facility] [address] [address] [address] Samantha Samuels Start: 03-15-2021 Adult depression scr eening assessment Lola Allen OD Work Phone: Start: 11-18-2019 Colonoscopy Lola goodman OD Work Phone: Start: 08-27-2018 Lipid 1996 panel - S beverly or Plasma NA Megan GUTIERREZ Work Phone: Appendectomy Arline Orosco Work Phone: Hernia repair Arline Orosco Work Phone: Procedure on prostate Alejandro Orosco Work Phone: Scrotum and testicle operation Arline Orosco Work Phone: Total colonoscopy Arline Orosco Work Phone: Plan of Treatment Date Care Activity Detail Author Start: 02-11-2027 Diabetes Screening Diabetes Screenin [facility] Start: 12-13-2026 Diabetes Screening Diabetes Screenin [facility] Start: 10-15-2026 Diabetes Screening Diabetes Screenin g [facility] Start: 08-14-2026 Diabetes Screening Diabetes Screenin g [facility] Start: 06-23-2026 Diabetes Screening Diabetes Screenin g [facility] Start: 02-15-2026 Diabetes Screening Diabetes Screenin g [facility] Start: 02-06-2026 DTaP,Tdap and Td Vaccines (2 - Td or Tdap) DTaP,Tdap and Td Vaccines (2 - Td or Tdap) [facility] Start: 02-06-2026 Urine microalbumin profile [facility] Start: 09-20-2025 DIABETES SCREEN DIABETES SCREEN [facility] Start: 07-07-2025 DIABETES SCREEN DIABETES SCREEN [facility] Start: 08-16-2024 BP Controlled (<130/80) BP Con trolled (<130/80) [facility] Start: 07-25-2024 End: 07-25-2024 Patient encounter procedure 07/25/2024 11:00 AM EDT Office Visit [facility] [address] [place] [id number] Oneil Castro, DPClem [address] [place] [address] [facility] Start: 07-22-2024 End: 07-22-2024 Patient encounter procedure 07/22/2024 1:00 PM EDT Office Visit [facility] [address] [place] [address] Lola Allen S, OD [address] [place] [address] Annual Full Eye Exam Ophthalmology Comment on above: Annual Full Eye Exam Start: 07-04-2024 Tobacco Screening Tobacco Screening [facility] Start: 06-26-2024 BP Controlled (<130/80) BP Con trolled (<130/80) [facility] Start: 06-23-2024 DIABETES SCREEN DIABETES SCREEN [facility] Start: 06-20-2024 End: 06-20-2024 ambulatory Hematology/Oncology Comment on above: 4mth f/u lupron and prolia Start: 06-13-2024 End: 06-13-2024 Patient encounter procedure 06/13/2024 11:00 AM EST Office Visit [facility] [address] [place] [address] [place] [address] 4mth f/u [facility] Comment on above: 4mth f/u Start: 05-17-2024 End: 03-16-2025 PET+CT Guidance for localization of tumor of Whole body-- W 18F-FDG IV NM PET/CT PROSTATE WHOLE BODY IMAGING Radiology Routine Malignant neoplasm of prostate (HCC) Expected: 05/17/2024, Expires: 03/16/2025 [facility] Work Phone: Comment on above: Expected: 05/17/2024 , Expires: 03/16/2025 Start: 04-26-2024 End: 04-26-2024 Patient encounter procedure 04/26/2024 10:30 AM EST Office Visit [facility] [address] [place] [address] Oneil Castro DPM [address] [place] [address] Arrived [facility] Comment on above: Arrived Start: 04-10-2024 BP Controlled (<130/80) BP Con trolled (<130/80) [facility] Start: 02-24-2024 BP Controlled (<130/80) BP Con trolled (<130/80) [facility] Start: 02-15-2024 End: 02-15-2024 Follow-up encounter 02/15/2024 2:15 PM EDT Visit (SP) Office Hematology/Oncology [address] [place] [address] Jose Francisco Broussard MD [address] [place] [address] 8 week follow up Hematology/Oncology Comment on above: 8 week follow up Start: 02-15-2024 End: 02-15-2024 Patient encounter procedure Radiation Oncology Comment on above: 6 month rv Start: 02-12-2024 End: 02-12-2024 Patient encounter procedure 02/12/2024 10:30 AM EDT Office Visit [facility] [address] [place] [address] labs a couple of days prior to follow up [facility] Comment on above: labs a couple of day s prior to follow up Start: 01-18-2024 Adult BMI Screening Adult BMI Screen [facility] Start: 01-14-2024 Covid-19 Vaccine ( season) Covid-19 Vaccine ( season) [facility] Start: 01-14-2024 Covid-19 Vaccine ( season) Covid-19 Vaccine () [facility] Start: 01-14-2024 Influenza vaccination [facility] Start: 12-27-2023 BP CONTROLLED (<130/80) BP CON TROLLED (<130/80) [facility] Start: 12-20-2023 End: 03-20-2024 CBC W Auto Differential panel - Blood COMPLETE BLOOD COUNT AND DIFFERENTIAL Lab Routine Prostate cancer (HCC) Expected: 12/20/2023, Expires: 03/20/2024 [facility] Comment on above: Expected: 12/20/2023 , Expires: 03/20/2024 Start: 12-20-2023 End: 03-20-2024 Comprehensive metabolic 2000 panel - Serum or Plasma COMPREHENSIVE METABOLIC PANEL Lab Routine Prostate cancer ([facility]) Expected: 12/20/2023, Expires: 03/20/2024 [facility] Work Phone: Comment on above: Expected: 12/20/2023 , Expires: 03/20/2024 Start: 12-20-2023 End: 12-20-2023 Follow-up encounter Hematology/Oncology Comment on above: 4 month follow up la b Lupron + Xgeva Start: 12-20-2023 End: 03-20-2024 Parathyrin related protein [Moles/volume] in Serum or Plasma PTH RELATED PEPTIDE Lab Routine Prostate cancer ([facility]) Pain of right hip Osteopenia of multiple sites Encounter for screening for osteoporosis Hypercalcemia Expected: 12/20/2023, Expires: 03/20/2024 [facility] Comment on above: Expected: 12/20/2023 , Expires: 03/20/2024 Start: 12-20-2023 End: 03-20-2024 Parathyrin.intact [Mass/volume] in Serum or Plasma PTH INTACT Lab Routine Prostate cancer ([facility]) Pain of right hip Osteopenia of multiple sites Encounter for screening for osteoporosis Hypercalcemia Expected: 12/20/2023, Expires: 03/20/2024 [facility] Comment on above: Expected: 12/20/2023 , Expires: 03/20/2024 Start: 12-20-2023 End: 03-20-2024 Prostate specific Ag [Mass/volume] in Serum or Plasma PROSTATE-SPECIFIC ANTIGEN DIAGNOSTIC Lab Routine Prostate cancer (HCC) Expected: 12/20/2023, Expires: 03/20/2024 [facility] Comment on above: Expected: 12/20/2023 , Expires: 03/20/2024 Start: 12-14-2023 End: 12-14-2023 Follow-up encounter Hematology/Oncology Comment on above: 4 month follow up la b Lupron + Xgeva Start: 12-14-2023 End: 12-14-2023 Patient encounter procedure 12/14/2023 10:15 AM EDT Office Visit [facility] [address] [place] [address] [place] [address] 4 month follow up lab Lupron + Xgeva [facility] Comment on above: 4 month follow up la b Lupron + Xgeva Start: 12-13-2023 End: 03-13-2024 Prostate specific Ag [Mass/volume] in Serum or Plasma PROSTATE-SPECIFIC ANTIGEN DIAGNOSTIC Lab Routine Prostate cancer (HCC) Expected: 12/13/2023, Expires: 03/13/2024 [facility] Work Phone: Comment on above: Expected: 12/13/2023 , Expires: 03/13/2024 Start: 12-08-2023 BP CONTROLLED (<130/80) BP CON TROLLED (<130/80) [facility] Start: 11-25-2023 BP CONTROLLED (<130/80) BP CON TROLLED (<130/80) [facility] Start: 10-18-2023 End: 01-17-2024 Basic metabolic 2000 panel - Serum or Plasma BASIC METABOLIC PNL Lab Routine Prostate cancer (HCC) Expected: 10/18/2023 (Approximate), Expires: 01/17/2024 [facility] Work Phone: Comment on above: Expected: 10/18/2023 (Approximate), Expires: 01/17/2024 Start: 10-18-2023 End: 01-17-2024 CBC W Auto Differential panel - Blood CBC + DIFF Lab Routine Prostate cancer (HCC) Expected: 10/18/2023 (Approximate), Expires: 01/17/2024 [facility] Work Phone: Comment on above: Expected: 10/18/2023 (Approximate), Expires: 01/17/2024 Start: 10-18-2023 End: 01-17-2024 Prostate specific Ag [Mass/volume] in Serum or Plasma PSA/PROSTSPECAG DIAG Lab Routine Prostate cancer (HCC) Expected: 10/18/2023 (Approximate), Expires: 01/17/2024 [facility] Work Phone: Comment on above: Expected: 10/18/2023 (Approximate), Expires: 01/17/2024 Start: 09-23-2023 BP CONTROLLED (<130/80) BP CON TROLLED (<130/80) [facility] Start: 08-28-2023 Lipid 1996 panel - S beverly or Plasma Lipid Screening [facility] Start: 08-28-2023 Lipid panel Lipid Screening [facility] Start: 08-28-2023 LIPID SCREEN LIPID SCREEN [facility] Start: 08-15-2023 End: 11-14-2023 Basic metabolic 2000 panel - Serum or Plasma BASIC METABOLIC PNL Lab Routine Prostate cancer (HCC) Expected: 08/15/2023, Expires: 11/14/2023 [facility] Work Phone: Comment on above: Expected: 08/15/2023 , Expires: 11/14/2023 Start: 08-15-2023 End: 11-14-2023 CBC W Auto Differential panel - Blood CBC + DIFF Lab Routine Prostate cancer (HCC) Expected: 08/15/2023, Expires: 11/14/2023 [facility] Work Phone: Comment on above: Expected: 08/15/2023 , Expires: 11/14/2023 Start: 08-15-2023 End: 11-14-2023 Prostate specific Ag [Mass/volume] in Serum or Plasma PSA/PROSTSPECAG DIAG Lab Routine Prostate cancer (HCC) Expected: 08/15/2023, Expires: 11/14/2023 [facility] Work Phone: Comment on above: Expected: 08/15/2023 , Expires: 11/14/2023 Start: 07-07-2023 BP CONTROLLED (<130/80) BP CON TROLLED (<130/80) [facility] Start: 05-26-2023 End: 03-24-2024 NM PET/CT PROSTATE WHOLE BODY IMAGING NM PET/CT PROSTATE WHOLE BODY IMAGING Radiology Routine Prostate cancer (HCC) Expected: 05/26/2023, Expires: 03/24/2024 [facility] Work Phone: Comment on above: Expected: 05/26/2023 , Expires: 03/24/2024 Start: 05-15-2023 Advance Directive Discussion Advance Directive Discussion [facility] Start: 05-15-2023 Behavioral Health Screening Behavioral Health Screening [facility] Start: 05-15-2023 Depression Assessment Depression Ass essment [facility] Start: 03-22-2023 BP CONTROLLED (<130/80) BP CON TROLLED (<130/80) [facility] Start: 03-22-2023 End: 05-22-2023 Prostate specific Ag [Mass/volume] in Serum or Plasma PSA/PROSTSPECAG DIAG Lab Routine History of prostate cancer Expected: 03/22/2023, Expires: 05/22/2023 [facility] Work Phone: Comment on above: Expected: 03/22/2023 , Expires: 05/22/2023 Start: 02-08-2023 FUV, Provider: Baldo Gifford, Status: Pen, Time: 9:30 AM FUV, Provider: Baldo Gifford, Status: Terry, Time: 9:30 AM -[facility] 600 DO Work Phone: Start: 01-13-2023 Covid-19 Vaccine () Covid-19 Vaccine ( season) [facility] Start: 01-13-2023 Influenza vaccination C [facility] Start: 12-29-2022 RSV Vaccine (1 - 1-d ose 75+ series) RSV Vaccine (1 - 1-dose 75+ series) [facility] Start: 12-28-2022 End: 02-27-2023 CBC W Auto Differential panel - Blood CBC + DIFF Lab Routine Osteopenia of multiple sites Prostate cancer (HCC) Expected: 12/28/2022 (Approximate), Expires: 02/27/2023 [facility] Work Phone: Comment on above: Expected: 12/28/2022 (Approximate), Expires: 02/27/2023 Start: 12-28-2022 End: 02-27-2023 Comprehensive metabolic 2000 panel - Serum or Plasma COMP METABOLIC PANEL Lab Routine Osteopenia of multiple sites Prostate cancer (HCC) Expected: 12/28/2022 (Approximate), Expires: 02/27/2023 [facility] Work Phone: Comment on above: Expected: 12/28/2022 (Approximate), Expires: 02/27/2023 Start: 12-28-2022 End: 02-27-2023 Prostate specific Ag [Mass/volume] in Serum or Plasma PSA/PROSTSPECAG DIAG Lab Routine Osteopenia of multiple sites Prostate cancer (HCC) Expected: 12/28/2022 (Approximate), Expires: 02/27/2023 [facility] Work Phone: Comment on above: Expected: 12/28/2022 (Approximate), Expires: 02/27/2023 Start: 10-18-2022 FUV, Provider: Baldo Gifford, Status: Pen, Time: 9:20 AM FUV, Provider: Balod Gifford, Status: Pen, Time: 9:[address] [facility] 250 DO Work Phone: Start: 10-06-2022 FUV, Provider: Baldo Gifford, Status: Pen, Time: 3:10 PM FUV, Provider: Baldo Gifford, Status: Pen, Time: 3:[address] [facility] 250 DO Work Phone: Start: 09-02-2022 Doppler ultrasonogra phy of bilateral carotid arteries US carotid doppler BI [facility] Start: 09-02-2022 US.doppler Carotid arteries - bilateral [facility] Start: 06-23-2022 BP CONTROLLED (<130/80) BP CON TROLLED (<130/80) [facility] Start: 05-22-2022 End: 04-21-2023 NM PET/CT PROSTATE WHOLE BODY IMAGING NM PET/CT PROSTATE WHOLE BODY IMAGING Radiology Routine History of prostate cancer Cancer of prostate w/med recur risk (T2b-c or [place] 7 or PSA 10-20) ([facility]) Expected: 05/22/2022, Expires: 04/21/2023 [facility] Work Phone: Comment on above: Expected: 05/22/2022 , Expires: 04/21/2023 Start: 05-22-2022 End: 07-22-2022 Prostate specific Ag [Mass/volume] in Serum or Plasma PSA/PROSTSPECAG DIAG Lab Routine Cancer of prostate w/med recur risk (T2b-c or [place] 7 or PSA 10-20) ([facility]) Expected: 05/22/2022, Expires: 07/22/2022 [facility] Work Phone: Comment on above: Expected: 05/22/2022 , Expires: 07/22/2022 Start: 05-22-2022 End: 07-22-2022 Testosterone [Mass/volume] in Serum or Plasma TESTOSTERONE TOTAL Lab Routine Cancer of prostate w/med recur risk (T2b-c or [place] 7 or PSA 10-20) (HCC) Expected: 05/22/2022, Expires: 07/22/2022 [facility] Work Phone: Comment on above: Expected: 05/22/2022 , Expires: 07/22/2022 Start: 05-15-2022 ADVANCE DIRECTIVE DISCUSSION ADVANCE DIRECTIVE DISCUSSION [facility] Start: 05-15-2022 DEPRESSION ASSESSMENT DEPRESSION ASS ESSMENT [facility] Start: 03-15-2022 Adult depression screening assessment DEPRESSION SCREENING [facility] Start: 05-15-2021 ADVANCE DIRECTIVE DISCUSSION ADVANCE DIRECTIVE DISCUSSION [facility] Start: 05-15-2021 DEPRESSION ASSESSMENT DEPRESSION ASS ESSMENT [facility] Start: 11-17-2020 Colonoscopy COLONOSCOPY [facility] Start: 11-17-2020 COLORECTAL CANCER SCREENING COLORECTAL CANCER SCREENING [facility] Start: 11-17-2020 Screening for malign ant neoplasm of colon [facility] Start: 12-29-2012 Fall Risk Screening Fall Risk Screen ing [facility] Start: 2007 RSV Vaccine (1 - 1-d ose 60+ series) RSV Vaccine (1 - 1-dose 60+ series) [facility] Start: 12-29-2002 Influenza vaccination LUNG CANCER [facility] Start: 12-29-1997 Influenza vaccination LUNG CANCER [facility] Start: 12-29-1997 Screening for malign ant neoplasm of lung Lung Cancer Screening [facility] Start: 12-29-1992 COLOGUARD (FIT-DNA) COLOGUARD (FIT-D NA) [facility] Start: 12-29-[address] COLONOGRAPHY [facility] Start: 12-29-1992 FECAL OCCULT BLOOD FECAL OCCULT BLOO D [facility] Start: 12-29-1992 Screening for malign ant neoplasm of colon [facility] Start: 12-29-1992 SIGMOIDOSCOPY SIGMOIDOSCOPY [facility] Start: 12-29-1977 Zoledronic acid therapy ALPHA- 1 ANTITRYPSIN DEFICIENCY SCREENING [facility] Start: 12-29-1965 ANNUAL PCP TEAM EDITORIAL ASSISTANT AZAR DISEASE VISIT ANNUAL PCP TEAM CHRONIC DISEASE VISIT [facility] Start: 12-29-1965 Anxiety Screening Anxiety Screening [facility] Start: 12-29-1965 BP CONTROLLED (<130/80) BP CON TROLLED (<130/80) [facility] Start: 12-29-1965 Depression Screening Depression Scre ing [facility] Start: 12-29-1965 HEPATITIS C SCREENING HEPATITIS C [facility] Start: 12-29-1965 Hepatitis C screening Hepatitis C [facility] Start: 12-29-1965 SPIROMETRY SPIROMETRY [facility] Start: 1959 Depression Screening Depression Scre ening [facility] Start: 12-29-1952 COVID-19 VACCINE (1) COVID-19 VACCIN E (1) [facility] Start: 07-01-1948 COVID-19 VACCINE (#1) COVID-19 VACCI NE (#1) [facility] Start: 1945 ABDOMINAL AORTIC ANEURYSM SCREENING ABDOMINAL AORTIC ANEURYSM SCREENING [facility] Start: 1945 Medicare Annual Well ness Visit Medicare Annual Wellness Visit [facility] Start: 1945 Tobacco Counseling Tobacco Counselin g [facility] End: 01-18-2025 DXA Skeletal system.axial Views for bone density DXA-AXIAL SKELETON Radiology Routine Prostate cancer (HCC) Pain of right hip Osteopenia of multiple sites 1 Occurrences starting 12/20/2023 until 01/18/2025 [facility] Comment on above: 1 Occurrences starti ng 12/20/2023 until 01/18/2025 End: 07-07-2023 Mri pelvis w/o & w/contrast material MRI PROSTATE WO/W IVCON Radiology Routine Cancer of prostate w/med recur risk (T2b-c or [place] 7 or PSA 10-20) (HCC) 1 Occurrences starting 06/07/2022 until 07/07/2023 [facility] Work Phone: Comment on above: 1 Occurrences starti ng 06/07/2022 until 07/07/2023 Prostate specific Ag [Mass/volume] in Serum or Plasma PROSTATE-SPECIFIC ANTIGEN DIAGNOSTIC Lab Routine Prostate cancer (HCC) 12/14/2023 12:57 PM EDT [facility] End: 01-18-2025 XR Hip - right AP and Lateral XR HIP 2V AP/LAT RIGHT (AK,FL,ME,UN) Radiology Routine Prostate cancer (HCC) Pain of right hip 1 Occurrences starting 12/20/2023 until 01/18/2025 [facility] Comment on above: 1 Occurrences starti ng 12/20/2023 until 01/18/2025 End: 01-18-2025 XR Pelvis Inlet and Outlet XR PELVIS 2V INLET/OUTLET Radiology Routine Prostate cancer (HCC) Pain of right hip 1 Occurrences starting 12/20/2023 until 01/18/2025 [facility] Comment on above: 1 Occurrences starti ng 12/20/2023 until 01/18/2025 [facility] Immunizations Immunization Date Immunization Notes Care Provider Fa cili 02-12-2022 influenza nasal, unspecified formulation CALVIN Guzman MD Work Phone: [facility] 02-12-2022 influenza virus vaccine, unspecified formulation Arline Orosco Work Phone: [facility] 250 DO Work Phone: 02-18-2021 Fluzone High-Dose Quadrivalent 0.7 ML Intramuscular Suspension Prefilled Syringe Arline Orosco Work Phone: [facility] 02-12-2021 seasonal influenza, intradermal, preservative free CALVIN Guzman MD Work Phone: [facility] 02-04-2020 influenza nasal, unspecified formulation CALVIN Guzman MD Work Phone: [facility] 02-04-2020 influenza virus vaccine, unspecified formulation Arline Orosco Work Phone: [facility] 250 DO Work Phone: 01-26-2020 influenza, high-dose , quadrivalent vaccine (FLUZONE HIGH DOSE QUADRIVALENT) Lola Kochlager OD Work Phone: [facility] 01-14-2020 influenza, high dose seasonal, preservative-free Arline Orosco Work Phone: [facility] 02-01-2019 AS03 adjuvant CALVIN Guzman MD Work Phone: [facility] 02-01-2019 Seasonal trivalent influenza vaccine, adjuvanted, preservative free Lola Loudenslager OD Work Phone: [facility] 01-10-2019 zoster vaccine recombinant Lola Loudenslager OD Work Phone: [facility] 10-14-2018 zoster vaccine recombinant Lola Loudenslager OD Work Phone: [facility] 01-29-2018 AS03 adjuvant CALVIN Guzman MD Work Phone: [facility] 01-29-2018 Seasonal trivalent influenza vaccine, adjuvanted, preservative free Lola Loudenslager OD Work Phone: [facility] 02-10-2017 influenza, high dose seasonal, preservative-free Lola Loudenslager OD Work Phone: [facility] 02-10-2017 pneumococcal conjuga te vaccine, 13 valent Lola Loudenslager OD Work Phone: [facility] 03-04-2016 influenza, seasonal, injectable, preservative free CALVIN Guzman MD Work Phone: [facility] 03-04-2016 seasonal influenza, intradermal, preservative free Lola Loudenslager OD Work Phone: [facility] 02-07-2016 influenza, high dose seasonal, preservative-free Lola Loudenslager OD Work Phone: [facility] 02-07-2016 tetanus toxoid, redu mara diphtheria toxoid, and acellular pertussis vaccine, adsorbed Lola Loudenslager OD Work Phone: [facility] 04-16-2014 influenza, high dose seasonal, preservative-free Lola Loudenslager OD Work Phone: [facility] 04-16-2014 pneumococcal polysaccharide vaccine, 23 valent Lola Loudenslager OD Work Phone: [facility] 03-07-2014 pneumococcal polysaccharide vaccine, 23 valent Lola Loudenslager OD Work Phone: [facility] 02-27-2014 influenza, seasonal, injectable, preservative free CALVIN Guzman MD Work Phone: [facility] 02-27-2014 seasonal influenza, intradermal, preservative free Lola Loudenslager OD Work Phone: [facility] 02-20-2013 pneumococcal polysaccharide vaccine, 23 valent Lola Loudenslager OD Work Phone: [facility] Payers Date Payer Category Payer Self-pay [id number] 2021 Medicare (Managed Care) [place] [employer] ADVANTAGE [id number] 2018 Unknown 2018 Unknown ANTHEM BLUE CROS S AND BLUE SHIELD ANTHEM MEDIBLUE HMO [id number] 2018-Present [phone] [address] [id number] 2016 Medicare [id number] 1959 Unknown [id number] 1947 Unknown [id number] 2.16.840.1.214468.3.579. 2.593 1947 Unknown [id number] 2.16840.1.892113.3.579. 2.593 1947 Unknown [id number] 2.16.840.1.306075.3.579. 2.593 1947 Unknown [id number] 2.16.840.1.477547.3.579. 2.593 1947 Unknown [id number] 2.16.840.1.882631.3.579. 2.593 1947 Unknown [id number] 2.16.840.1.057181.3.579. 2.593 1947 Unknown [id number] 2.16.840.1.143573.3.579. 2.593 1947 Unknown [id number] 2.16.840.1.503686.3.579. 2.593 1947 Unknown [id number] 2.16.840.1.552853.3.579. 2.593 1947 Unknown [id number] 2.16.840.1.355074.3.579. 2.593 1947 Unknown [id number] 2.16.840.1.862233.3.579. 2.593 1947 Unknown [id number] 2.16.840.1.579438.3.579. 2.356 1947 Unknown [id number] 2.16.840.1.873900.3.579. 2.356 1947 Unknown [id number] 2.16.840.1.515632.3.579. 2.1244 1947 Unknown [id number] 2.16.840.1.190417.3.579. 2.1286 1947 Unknown [id number] 2.16.840.1.920703.3.579. 2.1286 1947 Unknown [id number] 2.16.840.1.219419.3.579. 2.1286 1947 Unknown [id number] 2.16.840.1.152616.3.579. 2.1286 1947 Unknown [id number] 2.16.840.1.901359.3.579. 2.1286 1947 Unknown [id number] 2.16.840.1.882968.3.579. 2.1286 1947 Unknown [id number] 2.16.840.1.843102.3.579. 2.1259 Medicare Medicare [id number] Unknown [place] BC/BS [id number] Unknown [id number] Unknown [id number] 2.16.840.1.638202.3.579. 2.531 Social History Date Type Detail Facility Start: 04-03-2012 End: 04-26-2024 Tobacco smoking status MSIS Smokes tobacco daily [facility] History of tobacco use Cigarette Smoker [facility] Start: 04-03-2012 End: 04-26-2024 Cigarettes smoked current (pack per day) - Reported 1 [facility] Comment on above: 1 PPD; Start: 04-03-2012 End: 04-26-2024 Tobacco use and exposure Smokeless tobacco non-user [facility] Start: 08-23-2021 End: 02-15-2024 Alcohol intake Current non-drinker of alcohol (finding) [facility] Start: 1945 Sex Assigned At Male [facility] Start: 03-12-2022 End: 03-22-2022 Exposure to SARS-CoV-2 (event) Not sure [facility] History of tobacco use Passive smoker [facility] Start: 10-01-2018 Tobacco smoking stat [facility] Smoker (finding) [facility] Start: 11-24-2022 End: 04-26-2024 Tobacco use panel [facility] Adult Depression Screening Assessment 1 [facility] Start: 07-31-2018 Gender identity Identifies as male gender (finding) [facility] Start: 07-31-2018 Sexual orientation Heterosexual (fin ding) [facility] Start: 06-28-2022 Tobacco Comment 1 ppd for 42 y rs not interested [facility] Tobacco smoking consumption unknown [facility] Start: 1945 Sex assigned at Not on file [facility] Start: 04-26-2024 Alcoholic beverage intake Lifetime non-drinker (finding) [facility] Medical Equipment Procedure Code Equipment Code Equipment Origin al Text Equipment Identifier Dates Lens Iol Ultrase rt 16.0d - [id number] - [id number] Start: 06-13-2019 Lens Iol Ultrase rt 17.0d - [id number] - [id number] Start: 07-09-2019 Clinical Notes 06-23-2021 to 04-26-2024 Oneil Castro, DP - 04/26/2024 10:30 AM ESTTelephone Encounter - Christiano Cardenas APRN.FONDANT MACHINE OPERATOR - 04/09/2024 11:24 AM ESTTelephone Encounter - Christiano Cardenas APRN.[facility] - 04/09/2024 11:24 AM EST Note Date & Type Note Facility 04-26-2024 History of Present illness Narrative Reason for Appointment Established Patient: Annual Foot Examination History of Present Illness Established patient presents for Annual Foot Examination. Patient states he just comes in to have his feet check every year. No diabetes or neuropathy. Patient states no pain to feet or toenails. Review of Systems General: Chills no. Fatigue no. Fever no. Night sweats no. Endocrine: Weakness no. Diabetes no. Hyperpigmentation no. Cardiovascular: Shortness of breath yes. Chest pain no. Gastrointestinal: Constipation yes. Diarrhea no. Nausea no. Vomiting no. Hematology: Easy bruising no. Anemia no. Bleeding problems no. Musculoskeletal: Leg cramps no. Bone/joint symptoms yes. Peripheral Vascular: Edema no. Rest pain yes. Varicose veins no. Raynaud's no. Skin: Rash no. Skin lesion(s) no. Nail changes no. Ulceration no. Neurologic: Dizziness no. Headache no. Tingling/Numbness no. Gait abnormality no. Examination General Examination: GENERAL EXAMINATIONalert, well hydrated, in no distress , awake, aware of surroundings. Vascular: DORSALIS PEDIS PULSE: palpable, bilaterally. POSTERIOR TIBIAL PULSE: barely palpable, bilaterally. TEMPERATURE GRADIENT: warm to cool. EDEMA: none. VARICOSITIES: present, bilaterally. CAPILLARY FILLING TIME(sec): less than 2 seconds bilaterally. Dermatologic: SKIN FINDINGS: Skin is thin, shiny, atrophic or dry to the bilateral lower extremity. Absent pedal hair to the bilateral lower extremity. Hyperpigmentation to the bilateral lower extremity. HYPERKERATOSIS: Callus to the right medial hallux - very thin. NAIL PATHOLOGY: Nails 1-5 bilaterally intact. DERMATOLOGY: Hyperpigmented brown/chadwick lesion to the left lateral third toe is resolved. NEW CC: closed healing well, non ifnfected surgical wound to left dorsal medial fourth toe, being treated by Dr. 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 Nail Pathology: Left Foot: 1 (great toe) Long, Thick, Crumbly, Deformed, Discolored, Brittle, Dystrophic. 2 Long, Thick, Crumbly, Deformed, Discolored, Brittle, Dystrophic. 3 Long, Thick, Crumbly, Deformed, Discolored, Brittle, Dystrophic. 4 Long, Thick, Crumbly, Deformed, Discolored, Brittle, Dystrophic. 5 Long, Thick, Crumbly, Deformed, Discolored, Brittle, Dystrophic. Nail Pathology: Right Foot: 1 (great toe) Long, Thick, Crumbly, Deformed, Discolored, Brittle, Dystrophic. 2 Long, non-dystrophic. 3 Long, non-dystrophic. 4 Long, non-dystrophic. 5 Long, non-dystrophic. Ankle / Foot: MUSCLE STRENGTH: 5/5. Orthopedic: ORTHOPEDIC: Intact ortho exam to the bilateral lower extremity. Neurologic: NEUROLOGIC: Epicritic sensations intact to the bilateral lower extremity. 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 Patient seen today for followup examination. 2. No debridement of mycotic toenails was performed. Patient can perform these at home he was not have insurance coverage for nail reduction by blackjack dealer. 3. Patient should wash and dry bilateral foot twice a day and apply topical Tolcylen twice a day to all ten toenails until full resolution of onychomycosis. Patient may continue to apply Ciclopirox to toenails once a day. Patient should continue until full nail resolution of onychomycoses is appreciated. 4. Patient was advised to continue Nystatin Powder, to apply to bilateral foot webspaces twice a day, post bathing, to assist with moisture and fungus control. 5. Patient should self debride toenails with emery board, not using same surface twice, to avoid recontamination. 6. Reappoint 10-12 weeks. documented in this encounter [facility] 04-09-2024 Telephone encounter Note The following approved medication requests have been transmitted electronically. Requested Prescriptions Signed Prescriptions Disp Refills bicalutamide (CASODEX) 50 mg tablet 90 tablet 1 Sig: TAKE 1 TABLET BY MOUTH EVERY DAY Authorizing Provider: CHRISTIANO CARDENAS APRN.FONDANT MACHINE OPERATOR [facility] 04-09-2024 Miscellaneous Notes The following approved medication requests have been transmitted electronically. Requested Prescriptions Signed Prescriptions Disp Refills bicalutamide (CASODEX) 50 mg tablet 90 tablet 1 Sig: TAKE 1 TABLET BY MOUTH EVERY DAY Authorizing Provider: CHRISTIANO CARDENAS APRN.FONDANT MACHINE OPERATOR documented in this encounter [facility] 02-15-2024 Telephone encounter Note Please disregard this encounter. Patient does not need scan until May. Will resend closer to date requested. [facility] 02-15-2024 Miscellaneous Notes Please disregard this encounter. Patient does not need scan until May. Will resend closer to date requested. This form is used for MAIN CAMPUS APPOINTMENTS ONLY. Is this request for a [facility] [place] PET scan appointment? 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 Other Contact: [facility] PET to be done in [place]. Route to [facility] for scheduling Requesting Staff Fox Guzman Area Code + Phone/Pager: [phone] PET Orders (A delay in scheduling will [...] need anesthesia? NO Send requests to [facility] documented in this encounter [facility] 02-15-2024 Telephone encounter Note This form is used for MAIN CAMPUS APPOINTMENTS ONLY. Is this request for a [facility] [place] PET scan appointment? Yes: [employer] Tile Sorter: [place] Requesting Person (Last Name, First Name): Fox Guzman Area Code + Phone/Pager: [phone] Who do we call to schedule this appointment? Other Contact: [facility] PET to be done in [place]. Route to [facility] for scheduling Requesting Staff Fox Guzman Area Code + Phone/Pager: [phone] PET Orders (A delay in scheduling will [...] need anesthesia? NO Send requests to [facility] 02-15-2024 Nurse Note AUA=19 [facility] 02-15-2024 Nurse Note AUA=19 documented in this encounter [facility] 02-15-2024 History of Present illness Narrative Images from the original note [...] TUR undergoing surveillance. INTERVAL HISTORY: Doing well. Denies new problems. No hematuria. Occasional slower flow. No dysuria. Denies any skeletal related pain or discomfort other than arthritic. RADIOLOGY: [facility] PET scan 05/12/2023: [facility] positive [...] neoplastic process PSA HISTORY: PSA Date Value 02/12/2024 0.97 ng/mL 12/14/2023 0.92 ng/mL 10/16/2023 0.94 ng/mL 08/15/2023 0.72 ng/mL 02/03/2014 0.17 ng/mL 11/12/2013 <0.06 07/15/2013 [...] Reactions Chlorhexidine Rash Hibaclens [Other] Rash MEDICATIONS: bicalutamide (CASODEX) 50 mg tablet take 1 tablet by mouth every day acyclovir (ZOVIRAX) 5 % ointment APPLY EXTERNALLY EVERY 3 HOURS *6 TIMES A DAY* NEEDED albuterol HFA (PROVENTIL HFA, VENTOLIN HFA) 90 mcg/actuation inhaler INHALE 2 PUFFS BY MOUTH 4 TIMES A DAY Cholecalciferol, Vitamin D3, 50 mcg (2,000 unit) cap 2,000 Units. Ciclopirox (LOPROX) 0.77 % gel APPLY TO BOTH FEET AND TOE WEBBING TWICE A DAY clotrimazole-betamethasone (LOTRISONE) cream APPLY 1 APPLICATION EXTERNALLY TWICE A DAY doxazosin (CARDURA) 2 mg tablet Take 3 tablets by mouth every afternoon. multivitamin tablet Take 1 tablet by mouth once daily. mupirocin (BACTROBAN) 2 % ointment Apply to affected area two times a day. APPLY TO AFFECTED AREA tiZANidine (ZANAFLEX) 4 mg tablet Take 4 mg by mouth three times a day as needed. traZODone (DESYREL) 50 mg tablet Daily vitamin E acid succinate (VITAMIN E SUCCINATE) 268 mg (400 unit) tab Vitamin E Active 200 UNIT PO Daily September 14, 2018 12:00am simvastatin (ZOCOR) 10 mg tablet Take 10 mg by mouth daily at bedtime. irbesartan (AVAPRO) 75 mg tablet Take 75 mg by mouth daily at bedtime. metoprolol succinate ER (TOPROL XL) 25 mg [...] rectum: none lupron restarted 01/29 PHYSICAL EXAM: 02/15/24 1406 BP: 131/77 Pulse: (!) 51 Resp: 16 Temp: 36.6 C (97.8 F) TempSrc: Temporal SpO2: 98% Weight: 78.4 kg (172 lb 13.5 oz) KPS: 100 General appearance: Alert and oriented. No acute distress. Skin: Skin color, texture, turgor normal, no suspicious rashes or lesions. ASSESSMENT/PLAN: 1. Bladder cancer. Has continued follow-up with Dr. Shaw. 2 Prostate cancer [place] 8, node positive with prior treatment including pelvic radiation as well as androgen ablative therapy, radiation completed 2000. Lupron restarted January 2017 due to PSA relapse continues on ADT Restaging showing likely localized only recurrence. Option not to pursue local salvage options. PSA fairly stable although slowly increasing. Plan to continue surveillance and ADT. Seeing Dr. Broussard/medical oncology regarding hormonal treatment. Signed by: Ace Guzman MD cc: [place] [address] [place] [id number] [address] Broussard. Portions of the above note extracted and edited from previous visit as well as active information included in the EMR. documented in this encounter [facility] 02-15-2024 Note HNO ID: [id number] Author: Ace GUZMAN MD Service: ? Author Type: Physician Type: Progress Notes Filed: 02/22/2024 13:19 Note Text: Radiation Oncology - Follow Up [...] TUR undergoing surveillance. INTERVAL HISTORY: Doing well. Denies new problems. No hematuria. Occasional slower flow. No dysuria. Denies any skeletal related pain or discomfort other than arthritic. RADIOLOGY: PSMA PET scan 05/12/2023: PSMA positive [...] neoplastic process PSA HISTORY: PSA Date Value 02/12/2024 0.97 ng/mL 12/14/2023 0.92 ng/mL 10/16/2023 0.94 ng/mL 08/15/2023 0.72 ng/mL 02/03/2014 0.17 ng/mL 11/12/2013 <0.06 07/15/2013 [...] Reactions Chlorhexidine Rash Hibaclens [Other] Rash MEDICATIONS: bicalutamide (CASODEX) 50 mg tablet take 1 tablet by mouth every day acyclovir (ZOVIRAX) 5 % ointment APPLY EXTERNALLY EVERY 3 HOURS *6 TIMES A DAY* NEEDED albuterol HFA (PROVENTIL HFA, VENTOLIN HFA) 90 mcg/actuation inhaler INHALE 2 PUFFS BY MOUTH 4 TIMES A DAY Cholecalciferol, Vitamin D3, 50 mcg (2,000 unit) cap 2,000 Units. Ciclopirox (LOPROX) 0.77 % gel APPLY TO BOTH FEET AND TOE WEBBING TWICE A DAY clotrimazole-betamethasone (LOTRISONE) cream APPLY 1 APPLICATION EXTERNALLY TWICE A DAY doxazosin (CARDURA) 2 mg tablet Take 3 tablets by mouth every afternoon. multivitamin tablet Take 1 tablet by mouth once daily. mupirocin (BACTROBAN) 2 % ointment Apply to affected area two times a day. APPLY TO AFFECTED AREA tiZANidine (ZANAFLEX) 4 mg tablet Take 4 mg by mouth three times a day as needed. traZODone (DESYREL) 50 mg tablet Daily vitamin E acid succinate (VITAMIN E SUCCINATE) 268 mg (400 unit) tab Vitamin E Active 200 UNIT PO Daily September 14, 2018 12:00am simvastatin (ZOCOR) 10 mg tablet Take 10 mg by mouth daily at bedtime. irbesartan (AVAPRO) 75 mg tablet Take 75 mg by mouth daily at bedtime. metoprolol succinate ER (TOPROL XL) 25 mg [...] Medications to aid urination: Yes Bowel movement f (more content not included)... [facility] 02-14-2024 Note HNO ID: [id number] Author: JOSE FRANCISCO BROUSSARD MD Service: ? Author Type: Physician Type: Progress Notes Filed: 02/16/2024 05:43 Note Text: PATIENT NAME: Jm Barrow DATE: 02/15/2024 PRIMARY CARE PHYSICIAN: Arline Orosco MD OTHER PHYSICIANS: Dr. Guzman, Dr. Leroy Shaw, Dr. Guzman, Dr. Gifford, Dr. James Robb Portions of this encounter note have been copied from the note from 12/20/2023 and has been updated where appropriate, and reflect my current medical decision making from today. CC: This is a 78 year old male with recurrent prostate cancer, seen for scheduled follow-up. INTERIM HISTORY: At the patient's last visit here he complained of right hip pain. X-ray was unremarkable, and repeat bone density exam showed improvement. The pain has improved and he has had no further problems. Overall he feels fairly well today with no new complaints. He remains on treatment with Lupron plus bicalutamide, and is tolerating it well. MEDICATIONS: Current Outpatient Medications Medication Sig bicalutamide (CASODEX) 50 mg tablet take 1 tablet by mouth every day acyclovir (ZOVIRAX) 5 % ointment APPLY EXTERNALLY EVERY 3 HOURS *6 TIMES A DAY* NEEDED albuterol HFA (PROVENTIL HFA, VENTOLIN HFA) 90 mcg/actuation inhaler INHALE 2 PUFFS BY MOUTH 4 TIMES A DAY Cholecalciferol, Vitamin D3, 50 mcg (2,000 unit) cap 2,000 Units. Ciclopirox (LOPROX) 0.77 % gel APPLY TO BOTH FEET AND TOE WEBBING TWICE A DAY clotrimazole-betamethasone (LOTRISONE) cream APPLY 1 APPLICATION EXTERNALLY TWICE A DAY doxazosin (CARDURA) 2 mg tablet Take 3 tablets by mouth every afternoon. multivitamin tablet Take 1 tablet by mouth once daily. mupirocin (BACTROBAN) 2 % ointment Apply to affected area two times a day. APPLY TO AFFECTED AREA tiZANidine (ZANAFLEX) 4 mg tablet Take 4 mg by mouth three times a day as needed. traZODone (DESYREL) 50 mg tablet Daily vitamin E acid succinate (VITAMIN E SUCCINATE) 268 mg (400 unit) tab Vitamin E Active 200 UNIT PO Daily May 3rd, 2019 12:00am simvastatin (ZOCOR) 10 mg tablet Take 10 mg by mouth daily at bedtime. irbesartan (AVAPRO) 75 mg tablet Take 75 mg by mouth daily at bedtime. metoprolol succinate ER (TOPROL XL) 25 mg [...] CATARACT, INSERT LENS,EX Bilateral 06/2019 Dr. Grimm [facility], [place] TONSILLECTOMY HX FAMILY HISTORY: FAMILY HISTORY Problem Relation Age of Onset Colon Cancer Mother GI Mother Diabetes Mother Cancer Father Pancreatic or Liver Diabetes Father SOCIAL HISTORY: Social History Tobacco Use Smoking status: Every Day Current packs/day: 1.00 Average packs/day: 1 pack/day for 40.0 years (40.0 ttl pk-yrs) Types: Cigarettes Passive exposure: Current Smokeless tobacco: Never Vaping Use Vaping status: Never Used Substance Use Topics Alcohol use: No Drug [...] for nausea/vomiting, heartburn, vomiting blood, dysphasia, diarrhea, bl (more content not included)... [facility] 02-14-2024 History of Present illness Narrative PATIENT NAME: Jm Barrow DATE: 02/15/2024 PRIMARY CARE PHYSICIAN: Arline Orosco MD OTHER PHYSICIANS: Dr. Guzman, Dr. Leroy Shaw, Dr. Guzman, Dr. Gifford, Dr. James Robb Portions of this encounter note have been copied from the note from 12/20/2023 and has been updated where appropriate, and reflect my current medical decision making from today. CC: This is a 78 year old male with recurrent prostate cancer, seen for scheduled follow-up. INTERIM HISTORY: At the patient's last visit here he complained of right hip pain. X-ray was unremarkable, and repeat bone density exam showed improvement. The pain has improved and he has had no further problems. Overall he feels fairly well today with no new complaints. He remains on treatment with Lupron plus bicalutamide, and is tolerating it well. MEDICATIONS: Current Outpatient Medications Medication Sig bicalutamide (CASODEX) 50 mg tablet take 1 tablet by mouth every day acyclovir (ZOVIRAX) 5 % ointment APPLY EXTERNALLY EVERY 3 HOURS *6 TIMES A DAY* NEEDED albuterol HFA (PROVENTIL HFA, VENTOLIN HFA) 90 mcg/actuation inhaler INHALE 2 PUFFS BY MOUTH 4 TIMES A DAY Cholecalciferol, Vitamin D3, 50 mcg (2,000 unit) cap 2,000 Units. Ciclopirox (LOPROX) 0.77 % gel APPLY TO BOTH FEET AND TOE WEBBING TWICE A DAY clotrimazole-betamethasone (LOTRISONE) cream APPLY 1 APPLICATION EXTERNALLY TWICE A DAY doxazosin (CARDURA) 2 mg tablet Take 3 tablets by mouth every afternoon. multivitamin tablet Take 1 tablet by mouth once daily. mupirocin (BACTROBAN) 2 % ointment Apply to affected area two times a day. APPLY TO AFFECTED AREA tiZANidine (ZANAFLEX) 4 mg tablet Take 4 mg by mouth three times a day as needed. traZODone (DESYREL) 50 mg tablet Daily vitamin E acid succinate (VITAMIN E SUCCINATE) 268 mg (400 unit) tab Vitamin E Active 200 UNIT PO Daily September 14, 2018 12:00am simvastatin (ZOCOR) 10 mg tablet Take 10 mg by mouth daily at bedtime. irbesartan (AVAPRO) 75 mg tablet Take 75 mg by mouth daily at bedtime. metoprolol succinate ER (TOPROL XL) 25 mg [...] CATARACT, INSERT LENS,EX Bilateral 06/2019 Dr. Grimm [facility], [place] TONSILLECTOMY HX FAMILY HISTORY: FAMILY HISTORY Problem Relation Age of Onset Colon Cancer Mother GI Mother Diabetes Mother Cancer Father Pancreatic or Liver Diabetes Father SOCIAL HISTORY: Social History Tobacco Use Smoking status: Every Day Current packs/day: 1.00 Average packs/day: 1 pack/day for 40.0 years (40.0 ttl pk-yrs) Types: Cigarettes Passive exposure: Current Smokeless tobacco: Never Vaping Use Vaping status: Never Used Substance Use Topics Alcohol use: No Drug [...] loss, or change in mental status. MUSCULOSKELETAL: +pain in right hip SKIN: Negative for hair loss, bruising, nail changes, rash, itching, pallor, or jaundice. ENDO/URO: Negative for hot flashes, cold or heat intolerance, urinary frequency, urinary hesitancy, menorrhagia, or hematuria. PSYCH: Negative for anxiety, depression, or other. PHYSICAL EXAM: BP 131/77 Pulse (!) 51 Temp 36.6 C (97.8 F) (Temporal) Resp 16 Ht 177.8 cm (5' 10 ) Wt 78.4 kg (172 lb 13.5 oz) SpO2 98% BMI 24.80 kg/m General: Alert and oriented, no distress, pleasant and cooperative. Heart: Regular, normal S1 and S2, no murmurs, rubs, or gallops Lungs: Clear to auscultation bilaterally Abdomen: Benign Extremities: Feet/ankles without edema, posterior tibial pulses full and symmetrical Musc: tender over posterior iliac crest of right pelvis/hip PATHOLOGY: 02/14/2000 Pelvic lymph node biopsy ([facility], [place]. Doug Regalado) Metastatic prostate adenocarcinoma involving 1 of 3 lymph nodes (right obturator LN) 01/20/2000 TRUS prostate biopsy ([facility] [place]) Prostate adenocarcinoma, [place] composite score 8 LABS: Hemoglobin (g/dL) Date Value 02/12/2024 13.9 06/24/2013 14.1 Hematocrit (%) Date Value 02/12/2024 40.1 06/24/2013 39.9 WBC (k/uL) Date Value 02/12/2024 6.26 06/24/2013 7.37 Platelet Count (k/uL) Date Value 02/12/2024 185 06/24/2013 226 PSA 12/14/2020 0.20 03/14/2022 0.48 06/02/2022 0.50 07/07/2022 0.20 09/20/2022 0.38 11/17/2022 0.49 12/19/2022 0.48 02/21/2023 0.49 04/03/2023 0.67 06/23/2023 0.84 08/15/2023 0.72 10/16/2023 0.394 12/14/2023 0.92 02/12/2024 0.97 RADIOLOGY/OTHER STUDIES: 01/10/2024 Bone density DEXA ([facility]) Osteopenia. Max T-score -1.5 right femoral neck. 05/13/2023 PSMA PET scan IMPRESSION: PSMA positive [...] expressing neoplastic process 01/15/2022 Bone density DEXA ([facility]) Osteopenia in bilateral femoral necks ASSESSMENT/PLAN: 1. Prostate cancer (HCC) - ICD9: 185, ICD10: C61 Prostate cancer diagnosed January 2000 (prostate biopsy 01/20/2000). Initial staging revealed evidence of lymph node involvement (pelvic lymph node biopsy 02/14/2000). Initial stage T3b, N1, M0; [place] 8. The patient received primary treatment with [...] change in bowel habits) and was discontinued after 3 weeks. Lupron continued. Prostate MRI 08/15/2022 revealed uptake in the right mid transition zone suspicious for local recurrence. Local treatment options including brachytherapy, cryotherapy, and HIFU were considered. The patient was seen at [facility] by Dr. 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 He was seen by Dr. Robb to discuss brachytherapy, but the patient declined. Follow-up PSMA PET scan 05/13/2023 once again revealed evidence of disease in the prostate, but no distant metastasis. PSA continued to slowly increase. Bicalutamide started June 2023, and Lupron continued. Currently the patient is clinically stable but PSA remains elevated. He will undergo repeat PSMA PET scan and follow-up with radiation oncology. I will see him back in 4 months for follow-up, at which time he will receive his next Lupron and Prolia. 2. History of bladder cancer Superficial bladder cancer diagnosed Jun 2016. Status post TURBT. Status post intravesicular BCG and intravesicular gemcitabine. Continue management per urology (Dr. Shaw). 3. 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 On Prolia 60 mg SQ every 6 months since 2019, previously given at [facility]. Since December 2022 he has been receiving at our facility. Most recent bone density exam December 2023 improved. Will continue Prolia every 6 months, next injection due June 2024. 4. Hypercalcemia The patient has a long history of mild hypercalcemia. PTH January 2024 within normal limits. Difficult to know whether the patient's elevated calcium is related to his underlying prostate cancer or a separate disorder. Will follow labs closely and consider referral to endocrinology for further evaluation if labs worsen. Jose Francisco Broussard MD documented in this encounter [facility] 12-20-2023 Instructions Isadora Carty PA-C - 12/20/2023 2:12 PM EDT BONE MINERAL DENSITY PATIENT INSTRUCTIONS ========= Bone mineral density testing measures the amount of calcium in certain parts of your bones. This information determines how strong your bones are. The test is used to detect osteoporosis, a disease in which the bone's mineral content and density are low, increasing a person's risk of fractures. The lumbar spine (lower back) and the hip are the skeletal sites usually examined. For the test, remember that: 1. You cannot take this test if you are . 2. Eat a normal diet on the day of the test. 3. Take your medications as you normally would. 4. DO NOT take calcium supplements (such as Tums) for 24 hours before the test. 5. On the day of the test, leave valuables (jewelry or credit cards) at home. 6. The test should be performed prior to oral, rectal or IV contrast studies, or at least 7 days after any of these studies. For the test, you may be asked to wear a hospital gown. You will lie on your back, on a padded table, in a comfortable position. Generally, you can resume your usual activities immediately. documented in this encounter [facility] 12-20-2023 History of Present illness Narrative PATIENT NAME: Jm Barrow DATE: 12/20/2023 PRIMARY CARE PHYSICIAN: Arline Orosco MD OTHER PHYSICIANS: Dr. Guzman, Dr. Leroy Shaw, Dr. Guzman, Dr. Gifford, Dr. James Robb Portions of this encounter note have been copied from Dr. Broussard's note from 08/17/2023 and has been updated where appropriate, and reflect my current medical decision making from today. CC: This is a 77 year old male with recurrent prostate cancer, seen for scheduled follow-up. INTERIM HISTORY: Jm returns for follow up. He remains on bicalutamide 50 mg daily and is tolerating it. He does report new right hip/posterior pelvic bone pain that started about 6 weeks ago. It bothers his 10-12 times a day and aleve helps some. Otherwise denies any urinary symptoms or other complaints. MEDICATIONS: Current Outpatient Medications Medication Sig bicalutamide (CASODEX) 50 mg tablet take 1 tablet by mouth every day acyclovir (ZOVIRAX) 5 % ointment APPLY EXTERNALLY EVERY 3 HOURS *6 TIMES A DAY* NEEDED albuterol HFA (PROVENTIL HFA, VENTOLIN HFA) 90 mcg/actuation inhaler INHALE 2 PUFFS BY MOUTH 4 TIMES A DAY Cholecalciferol, Vitamin D3, 50 mcg (2,000 unit) cap 2,000 Units. Ciclopirox (LOPROX) 0.77 % gel APPLY TO BOTH FEET AND TOE WEBBING TWICE A DAY clotrimazole-betamethasone (LOTRISONE) cream APPLY 1 APPLICATION EXTERNALLY TWICE A DAY doxazosin (CARDURA) 2 mg tablet Take 3 tablets by mouth every afternoon. multivitamin tablet Take 1 tablet by mouth once daily. mupirocin (BACTROBAN) 2 % ointment Apply to affected area two times a day. APPLY TO AFFECTED AREA potassium chloride SR (MICRO-K) 10 mEq CR capsule TAKE 1 CAPSULE BY MOUTH TWICE A DAY WITH FOOD FOR 30 DAYS tiZANidine (ZANAFLEX) 4 mg tablet Take 4 mg by mouth three times a day as needed. traZODone (DESYREL) 50 mg tablet Daily vitamin E acid succinate (VITAMIN E SUCCINATE) 268 mg (400 unit) tab Vitamin E Active 200 UNIT PO Daily September 14, 2018 12:00am simvastatin (ZOCOR) 10 mg tablet Take 10 [...] Rash PAST MEDICAL HISTORY: PAST MEDICAL HISTORY No date: BPH (benign prostatic hyperplasia) No date: Diplopia No date: Hypertension No date: Prostate cancer (HCC) No date: Pseudophakia of both eyes No date: Strabismus No date: Wears glasses PAST SURGICAL HISTORY: PAST SURGICAL HISTORY No date: APPENDECTOMY 11/18/2019: COLONOSCOPY 07/05/2021: EYE MUSCLE SURG PROC UNLISTED; Right Comment: 07/05/2021 - Lorenzo Archuleta MD - Recess right superior rectus by 4 mm No date: HERNIA REPAIR HX 06/2019: REMOVE CATARACT, INSERT LENS,EX; Bilateral Comment: Dr. Grimm [facility], [place] No date: TONSILLECTOMY HX FAMILY HISTORY: FAMILY HISTORY Problem [...] loss, or change in mental status. MUSCULOSKELETAL: +pain in right hip SKIN: Negative for hair loss, bruising, nail changes, rash, itching, pallor, or jaundice. ENDO/URO: Negative for hot flashes, cold or heat intolerance, urinary frequency, urinary hesitancy, menorrhagia, or hematuria. PSYCH: Negative for anxiety, depression, or other. PHYSICAL EXAM: BP 135/74 Pulse 69 Temp 36.2 C (97.2 F) (Temporal) Resp 16 Wt 80.2 kg (176 lb 12.9 oz) SpO2 96% BMI 25.37 kg/m General: Alert and oriented, no distress, pleasant and cooperative. Heart: Regular, normal S1 and S2, no murmurs, rubs, or gallops Lungs: Clear to auscultation bilaterally Abdomen: Benign Extremities: Feet/ankles without edema, posterior tibial pulses full and symmetrical Musc: tender over posterior iliac crest of right pelvis/hip PATHOLOGY: 02/14/2000 Pelvic lymph node biopsy ([facility] [place], [place]. Doug Regalado) Metastatic prostate adenocarcinoma involving 1 of 3 lymph nodes (right obturator LN) 01/20/2000 TRUS prostate biopsy ([facility] [place]) Prostate adenocarcinoma, [place] composite score 8 LABS: Hemoglobin (g/dL) Date Value 12/14/2023 14.0 06/24/2013 14.1 Hematocrit (%) Date Value 12/14/2023 39.6 06/24/2013 39.9 WBC (k/uL) Date Value 12/14/2023 6.34 06/24/2013 7.37 Platelet Count (k/uL) Date Value 12/14/2023 195 06/24/2013 226 PSA 12/14/2020 0.20 03/14/2022 0.48 06/02/2022 0.50 07/07/2022 0.20 09/20/2022 0.38 11/17/2022 0.49 12/19/2022 0.48 02/21/2023 0.49 04/03/2023 0.67 06/23/2023 0.84 08/15/2023 0.72 10/16/2023 0.394 12/14/2023 0.92 RADIOLOGY/OTHER STUDIES: 05/13/2023 PSMA PET scan IMPRESSION: [...] expressing neoplastic process 01/15/2022 Bone density DEXA ([facility]) Osteopenia in bilateral femoral necks ASSESSMENT/PLAN: 1. Prostate cancer (HCC) - ICD9: 185, ICD10: C61 Prostate cancer diagnosed January 2000 (prostate biopsy 01/20/2000). Initial staging revealed evidence of lymph node involvement (pelvic lymph node biopsy 02/14/2000). Initial stage T3b, N1, M0; [place] 8. The patient received primary treatment with [...] change in bowel habits) and was discontinued after 3 weeks. Lupron continued. Prostate MRI 08/15/2022 revealed uptake in the right mid transition zone suspicious for local recurrence. Local treatment options including brachytherapy, cryotherapy, and HIFU were considered. The patient was seen at [facility] [place] by Dr. 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 He was seen by Dr. Robb to discuss brachytherapy, but the patient is reluctant to consider. Follow-up PSMA PET scan 05/13/2023 once again revealed evidence of disease in the prostate, but no distant metastasis. PSA continued to slowly increase. When seen 06/26/2023 it was elected to start bicalutamide 50 mg daily. Subsequent PSA initially decreased but it is now increasing again. At this time the patient is having new right hip/pelvic pain for the last 6 weeks. I will order a plain film of the area. If the pain persists, we will need to consider repeating the PSMA PET scan. He will continue bicalutamide and Lupron for now and return n 2 months for labs and follow up. He will also receive his Prolia today as well. 2. History of bladder cancer Superficial bladder cancer diagnosed Jun 2016. Status post TURBT. Status post intravesicular BCG and intravesicular gemcitabine. Continue management per urology (Dr. Shaw). 3. 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 On Prolia 60 mg SQ every 6 months since 2019, previously given at [facility]. Since December 2022 he has been receiving at our facility. He will receive and injection today and his next injection will be due June 2024. Will repeat bone density DEXA before his next visit. 4. Hypercalcemia Since September 2022 the patient's calcium has been slowly increasing. Unlikely related to prostate cancer. Will check PTH studies to be complete. Isadora Carty PA-C CC: Dr. Leroy Shaw, [facility] I spent a total of 30 minutes on the date of the service which included preparing to see the patient, [id number] patient care, completing clinical documentation, performing a medically appropriate examination, counseling and educating the patient/family/caregiver, ordering medications, tests, or procedures, independently interpreting results (not separately reported), communicating results to the patient/family/caregiver, and care coordination (not separately reported). documented in this encounter [facility] 12-20-2023 Note HNO ID: [id number] Author: ISADORA CARTY PA-C Service: ? Author Type: Physician Silver Solderer Type: Progress Notes Filed: 12/20/2023 14:30 Note Text: PATIENT NAME: Jm Barrow DATE: 12/20/2023 PRIMARY CARE PHYSICIAN: Arline Orosco MD OTHER PHYSICIANS: Dr. Guzman, Dr. Leroy Shaw, Dr. Guzman, Dr. Gifford, Dr. James Robb Portions of this encounter note have been copied from Dr. Broussard's note from 08/17/2023 and has been updated where appropriate, and reflect my current medical decision making from today. CC: This is a 77 year old male with recurrent prostate cancer, seen for scheduled follow-up. INTERIM HISTORY: Jm returns for follow up. He remains on bicalutamide 50 mg daily and is tolerating it. He does report new right hip/posterior pelvic bone pain that started about 6 weeks ago. It bothers his 10-12 times a day and aleve helps some. Otherwise denies any urinary symptoms or other complaints. MEDICATIONS: Current Outpatient Medications Medication Sig bicalutamide (CASODEX) 50 mg tablet take 1 tablet by mouth every day acyclovir (ZOVIRAX) 5 % ointment APPLY EXTERNALLY EVERY 3 HOURS *6 TIMES A DAY* NEEDED albuterol HFA (PROVENTIL HFA, VENTOLIN HFA) 90 mcg/actuation inhaler INHALE 2 PUFFS BY MOUTH 4 TIMES A DAY Cholecalciferol, Vitamin D3, 50 mcg (2,000 unit) cap 2,000 Units. Ciclopirox (LOPROX) 0.77 % gel APPLY TO BOTH FEET AND TOE WEBBING TWICE A DAY clotrimazole-betamethasone (LOTRISONE) cream APPLY 1 APPLICATION EXTERNALLY TWICE A DAY doxazosin (CARDURA) 2 mg tablet Take 3 tablets by mouth every afternoon. multivitamin tablet Take 1 tablet by mouth once daily. mupirocin (BACTROBAN) 2 % ointment Apply to affected area two times a day. APPLY TO AFFECTED AREA potassium chloride SR (MICRO-K) 10 mEq CR capsule TAKE 1 CAPSULE BY MOUTH TWICE A DAY WITH FOOD FOR 30 DAYS tiZANidine (ZANAFLEX) 4 mg tablet Take 4 mg by mouth three times a day as needed. traZODone (DESYREL) 50 mg tablet Daily vitamin E acid succinate (VITAMIN E SUCCINATE) 268 mg (400 unit) tab Vitamin E Active 200 UNIT PO Daily September 14, 2018 12:00am simvastatin (ZOCOR) 10 mg tablet Take 10 [...] Rash PAST MEDICAL HISTORY: PAST MEDICAL HISTORY No date: BPH (benign prostatic hyperplasia) No date: Diplopia No date: Hypertension No date: Prostate cancer (HCC) No date: Pseudophakia of both eyes No date: Strabismus No date: Wears glasses PAST SURGICAL HISTORY: PAST SURGICAL HISTORY No date: APPENDECTOMY 11/18/2019: COLONOSCOPY 07/05/2021: EYE MUSCLE SURG PROC UNLISTED; Right Comment: 07/05/2021 - Lorenzo Archuleta MD - Recess right superior rectus by 4 mm No date: HERNIA REPAIR HX 06/2019: REMOVE CATARACT, INSERT LENS,EX; Bilateral Comment: Dr. Grimm - [place], [place] No date: TONSILLECTOMY HX FAMILY HISTORY: FAMILY HISTORY Problem [...] swelling, fever/chills, bleeding gums, or hearing loss. (more content not included)... [facility] 12-13-2023 Telephone encounter Note Pt sees Isadora next week for follow up. Would like to have his labs drawn before next week's appointment. Orders pended. Umer Dale RN [facility] 12-13-2023 Miscellaneous Notes Pt sees Isadora next week for follow up. Would like to have his labs drawn before next week's appointment. Orders pended. Umer Dale RN documented in this encounter [facility] 10-17-2023 Telephone encounter Note Pt informed of BRM message and agreeable to continue with current treatment/plans of care. Pt denies any questions, needs or concerns at this time. Appointment verified. Daniel Benítez, RN [facility] 10-17-2023 Telephone encounter Note ----- Message from Jose Francisco Broussard MD sent at 10/17/2023 8:09 AM EDT ----- Please inform the patient that his PSA has increased slightly. My preference would be to continue as is with bicalutamide/Lupron. If the patient has concerns he could change to a different hormone pill (abiraterone/prednisone) but I am concerned he will have side effects similar to enzalutamide. If in agreement I will see him back as scheduled with repeat labs. [facility] 10-17-2023 Miscellaneous Notes Pt informed of BR message and agreeable to continue with current treatment/plans of care. Pt denies any questions, needs or concerns at this time. Appointment verified. Daniel Benítez RN ----- Message from Jose Francisco Broussard MD sent at 10/17/2023 8:09 AM EDT ----- Please inform the patient that his PSA has increased slightly. My preference would be to continue as is with bicalutamide/Lupron. If the patient has concerns he could change to a different hormone pill (abiraterone/prednisone) but I am concerned he will have side effects similar to enzalutamide. If in agreement I will see him back as scheduled with repeat labs. documented in this encounter [facility] 08-17-2023 History of Present illness Narrative Images from the original note [...] TUR undergoing surveillance. INTERVAL HISTORY: Doing well. Has decided not to pursue brachytherapy. He is continuing ADT with medical oncology/Dr. Broussard. He denies any problems although the occasional blood pressure issues. No dysuria or hematuria. No obstructive issues. RADIOLOGY: PSMA PET scan 05/12/2023: PSMA positive [...] neoplastic process PSA HISTORY: PSA Date Value 08/15/2023 0.72 ng/mL 06/23/2023 0.84 ng/mL 04/03/2023 0.67 ng/mL 02/21/2023 0.49 ng/mL 02/03/2014 0.17 ng/mL 11/12/2013 <0.06 [...] Reactions Chlorhexidine Rash Hibaclens [Other] Rash MEDICATIONS: acyclovir (ZOVIRAX) 5 % ointment APPLY EXTERNALLY EVERY 3 HOURS *6 TIMES A DAY* NEEDED albuterol HFA (PROVENTIL HFA, VENTOLIN HFA) 90 mcg/actuation inhaler INHALE 2 PUFFS BY MOUTH 4 TIMES A DAY Cholecalciferol, Vitamin D3, 50 mcg (2,000 unit) cap 2,000 Units. Ciclopirox (LOPROX) 0.77 % gel APPLY TO BOTH FEET AND TOE WEBBING TWICE A DAY clotrimazole-betamethasone (LOTRISONE) cream APPLY 1 APPLICATION EXTERNALLY TWICE A DAY doxazosin (CARDURA) 2 mg tablet Take 3 tablets by mouth every afternoon. multivitamin tablet Take 1 tablet by mouth once daily. mupirocin (BACTROBAN) 2 % ointment Apply to affected area two times a day. APPLY TO AFFECTED AREA potassium chloride SR (MICRO-K) 10 mEq CR capsule TAKE 1 CAPSULE BY MOUTH TWICE A DAY WITH FOOD FOR 30 DAYS tiZANidine (ZANAFLEX) 4 mg tablet Take 4 mg by mouth three times a day as needed. traZODone (DESYREL) 50 mg tablet Daily vitamin E acid succinate (VITAMIN E SUCCINATE) 268 mg (400 unit) tab Vitamin E Active 200 UNIT PO Daily September 14, 2018 12:00am bicalutamide (CASODEX) 50 mg tablet Take 1 tablet by mouth once daily. simvastatin (ZOCOR) 10 mg tablet Take 10 [...] rectum: none lupron restarted 01/29 PHYSICAL EXAM: 08/17/23 10:20 Weight 83.6 kg (184 lb 4.9 oz) Height 177.8 cm (5' 10 ) BSA 2.03 BMI 26.44 Temp 36.6 C (97.9 F) Pulse 71 Resp 16 BP 118/66 SpO2 97 % KPS: 100 General appearance: Alert and oriented. No acute distress. Skin: Skin color, texture, turgor normal, no suspicious rashes or lesions. ASSESSMENT/PLAN: 1. Bladder cancer. doing well without evidence of recurrence has continued follow-up with Dr. Shaw. 2 Prostate cancer [place] 8, node positive with prior treatment including pelvic radiation as well as androgen ablative therapy, radiation completed 2000. Lupron restarted January 2017 due to PSA relapse continues on ADT Patient has localized recurrence. He has decided not to pursue local salvage treatment at this point. We did discuss this again at length given his local only presentation and concerns for developing androgen independence. He continues close follow-up with Dr. Broussard. I will plan to see patient back in 6 months. Signed by: Ace Guzman MD cc: Arline Orosco MD [address] [place] [address] [address] Broussard[address] Portions of the above note extracted and edited from previous visit as well as active information included in the EMR. documented in this encounter [facility] 08-17-2023 Note HNO ID: [id number] Author: Ace GUZMAN MD Service: ? Author Type: Physician Type: Progress Notes Filed: 08/24/2023 11:58 Note Text: Radiation Oncology - Follow Up [...] TUR undergoing surveillance. INTERVAL HISTORY: Doing well. Has decided not to pursue brachytherapy. He is continuing ADT with medical oncology/Dr. Broussard. He denies any problems although the occasional blood pressure issues. No dysuria or hematuria. No obstructive issues. RADIOLOGY: PSMA PET scan 05/12/2023: PSMA positive [...] neoplastic process PSA HISTORY: PSA Date Value 08/15/2023 0.72 ng/mL 06/23/2023 0.84 ng/mL 04/03/2023 0.67 ng/mL 02/21/2023 0.49 ng/mL 02/03/2014 0.17 ng/mL 11/12/2013 <0.06 [...] Reactions Chlorhexidine Rash Hibaclens [Other] Rash MEDICATIONS: acyclovir (ZOVIRAX) 5 % ointment APPLY EXTERNALLY EVERY 3 HOURS *6 TIMES A DAY* NEEDED albuterol HFA (PROVENTIL HFA, VENTOLIN HFA) 90 mcg/actuation inhaler INHALE 2 PUFFS BY MOUTH 4 TIMES A DAY Cholecalciferol, Vitamin D3, 50 mcg (2,000 unit) cap 2,000 Units. Ciclopirox (LOPROX) 0.77 % gel APPLY TO BOTH FEET AND TOE WEBBING TWICE A DAY clotrimazole-betamethasone (LOTRISONE) cream APPLY 1 APPLICATION EXTERNALLY TWICE A DAY doxazosin (CARDURA) 2 mg tablet Take 3 tablets by mouth every afternoon. multivitamin tablet Take 1 tablet by mouth once daily. mupirocin (BACTROBAN) 2 % ointment Apply to affected area two times a day. APPLY TO AFFECTED AREA potassium chloride SR (MICRO-K) 10 mEq CR capsule TAKE 1 CAPSULE BY MOUTH TWICE A DAY WITH FOOD FOR 30 DAYS tiZANidine (ZANAFLEX) 4 mg tablet Take 4 mg by mouth three times a day as needed. traZODone (DESYREL) 50 mg tablet Daily vitamin E acid succinate (VITAMIN E SUCCINATE) 268 mg (400 unit) tab Vitamin E Active 200 UNIT PO Daily September 14, 2018 12:00am bicalutamide (CASODEX) 50 mg tablet Take 1 tablet by mouth once daily. simvastatin (ZOCOR) 10 mg tablet Take 10 [...] subcutaneously one time only. leuprolide, 6 month, (LUP (more content not included)... [facility] 08-17-2023 Nurse Note AUA 12 Brenda Aguirre RN documented in this encounter [facility] 08-17-2023 Note HNO ID: [id number] Author: JOSE FRANCISCO BROUSSARD MD Service: ? Author Type: Physician Type: Progress Notes Filed: 08/18/2023 07:07 Note Text: PATIENT NAME: Jm Barrow DATE: 08/17/2023 PRIMARY CARE PHYSICIAN: Arline Orosco MD OTHER PHYSICIANS: Dr. Guzman, Dr. Leroy Shaw, Dr. Guzman, Dr. Gifford, Dr. James Robb Portions of this encounter note have been copied from my note from 06/26/2023 and has been updated where appropriate, and reflect my current medical decision making from today. CC: This is a 77 year old male with recurrent prostate cancer, seen for scheduled follow-up. INTERIM HISTORY: At the patient's last visit here he was prescribed bicalutamide 50 mg daily which he is tolerating. He has had no apparent adverse effects. On follow-up today he feels well with no particular complaints. He has had no urinary symptoms. No unusual pain or other systemic complaints. MEDICATIONS: Current Outpatient Medications Medication Sig acyclovir (ZOVIRAX) 5 % ointment APPLY EXTERNALLY EVERY 3 HOURS *6 TIMES A DAY* NEEDED albuterol HFA (PROVENTIL HFA, VENTOLIN HFA) 90 mcg/actuation inhaler INHALE 2 PUFFS BY MOUTH 4 TIMES A DAY Cholecalciferol, Vitamin D3, 50 mcg (2,000 unit) cap 2,000 Units. Ciclopirox (LOPROX) 0.77 % gel APPLY TO BOTH FEET AND TOE WEBBING TWICE A DAY clotrimazole-betamethasone (LOTRISONE) cream APPLY 1 APPLICATION EXTERNALLY TWICE A DAY doxazosin (CARDURA) 2 mg tablet Take 3 tablets by mouth every afternoon. losartan (COZAAR) 50 mg tablet Take 75 mg by mouth. metoprolol tartrate, short acting, (LOPRESSOR) 25 mg tablet Take 25 mg by mouth. multivitamin tablet Take 1 tablet by mouth once daily. mupirocin (BACTROBAN) 2 % ointment Apply to affected area two times a day. APPLY TO AFFECTED AREA potassium chloride SR (MICRO-K) 10 mEq CR capsule TAKE 1 CAPSULE BY MOUTH TWICE A DAY WITH FOOD FOR 30 DAYS tiZANidine (ZANAFLEX) 4 mg tablet Take 4 mg by mouth three times a day as needed. tolterodine ER (DETROL LA) 4 mg 24 hr capsule Daily traZODone (DESYREL) 50 mg tablet Daily vitamin E acid succinate (VITAMIN E SUCCINATE) 268 mg (400 unit) tab Vitamin E Active 200 UNIT PO Daily September 14, 2018 12:00am bicalutamide (CASODEX) 50 mg tablet Take 1 tablet by mouth once daily. simvastatin (ZOCOR) 10 mg tablet Take 10 [...] EENT: Negative for mouth soreness, antibiotics use, epistaxi (more content not included)... [facility] 08-17-2023 History of Present illness Narrative PATIENT NAME: Jm Barrow DATE: 08/17/2023 PRIMARY CARE PHYSICIAN: Arline Orosco MD OTHER PHYSICIANS: Dr. Guzman, Dr. Leroy Shaw, Dr. Guzman, Dr. Gifford, Dr. James Robb Portions of this encounter note have been copied from my note from 06/26/2023 and has been updated where appropriate, and reflect my current medical decision making from today. CC: This is a 77 year old male with recurrent prostate cancer, seen for scheduled follow-up. INTERIM HISTORY: At the patient's last visit here he was prescribed bicalutamide 50 mg daily which he is tolerating. He has had no apparent adverse effects. On follow-up today he feels well with no particular complaints. He has had no urinary symptoms. No unusual pain or other systemic complaints. MEDICATIONS: Current Outpatient Medications Medication Sig acyclovir (ZOVIRAX) 5 % ointment APPLY EXTERNALLY EVERY 3 HOURS *6 TIMES A DAY* NEEDED albuterol HFA (PROVENTIL HFA, VENTOLIN HFA) 90 mcg/actuation inhaler INHALE 2 PUFFS BY MOUTH 4 TIMES A DAY Cholecalciferol, Vitamin D3, 50 mcg (2,000 unit) cap 2,000 Units. Ciclopirox (LOPROX) 0.77 % gel APPLY TO BOTH FEET AND TOE WEBBING TWICE A DAY clotrimazole-betamethasone (LOTRISONE) cream APPLY 1 APPLICATION EXTERNALLY TWICE A DAY doxazosin (CARDURA) 2 mg tablet Take 3 tablets by mouth every afternoon. losartan (COZAAR) 50 mg tablet Take 75 mg by mouth. metoprolol tartrate, short acting, (LOPRESSOR) 25 mg tablet Take 25 mg by mouth. multivitamin tablet Take 1 tablet by mouth once daily. mupirocin (BACTROBAN) 2 % ointment Apply to affected area two times a day. APPLY TO AFFECTED AREA potassium chloride SR (MICRO-K) 10 mEq CR capsule TAKE 1 CAPSULE BY MOUTH TWICE A DAY WITH FOOD FOR 30 DAYS tiZANidine (ZANAFLEX) 4 mg tablet Take 4 mg by mouth three times a day as needed. tolterodine ER (DETROL LA) 4 mg 24 hr capsule Daily traZODone (DESYREL) 50 mg tablet Daily vitamin E acid succinate (VITAMIN E SUCCINATE) 268 mg (400 unit) tab Vitamin E Active 200 UNIT PO Daily September 14, 2018 12:00am bicalutamide (CASODEX) 50 mg tablet Take 1 tablet by mouth once daily. simvastatin (ZOCOR) 10 mg tablet Take 10 [...] CATARACT, INSERT LENS,EX Bilateral 06/2019 Dr. Grimm [facility], [place] TONSILLECTOMY HX FAMILY HISTORY: FAMILY [...] anxiety, depression, or other. PHYSICAL EXAM: BP 118/66 Pulse 71 Temp 36.6 C (97.9 F) (Temporal) Resp 16 Ht 177.8 cm (5' 10 ) Wt 83.6 kg (184 lb 4.9 oz) SpO2 97% BMI 26.44 kg/m GENERAL EXAM: Well developed/well nourished; in [...] atrophy. PATHOLOGY: 02/14/2000 Pelvic lymph node biopsy ([facility], [place]. Doug Regalado) Metastatic prostate adenocarcinoma involving 1 of 3 lymph nodes (right obturator LN) 01/20/2000 TRUS prostate biopsy ([facility]) Prostate adenocarcinoma, [place] composite score 8 LABS: Hemoglobin (g/dL) Date Value 08/15/2023 14.8 06/24/2013 14.1 Hematocrit (%) Date Value 08/15/2023 43.1 06/24/2013 39.9 WBC (k/uL) Date Value 08/15/2023 9.35 06/24/2013 7.37 Platelet Count (k/uL) Date Value 08/15/2023 204 06/24/2013 226 PSA 12/14/2020 0.20 03/14/2022 0.48 06/02/2022 0.50 07/07/2022 0.20 09/20/2022 0.38 11/17/2022 0.49 12/19/2022 0.48 02/21/2023 0.49 04/03/2023 0.67 06/23/2023 0.84 08/15/2023 0.72 RADIOLOGY/OTHER STUDIES: 05/13/2023 PSMA PET scan IMPRESSION: [...] expressing neoplastic process 01/15/2022 Bone density DEXA ([place] [facility]) Osteopenia in bilateral femoral necks ASSESSMENT/PLAN: 1. [...] change in bowel habits) and was discontinued after 3 weeks. Lupron continued. Prostate MRI 08/15/2022 revealed uptake in the right mid transition zone suspicious for local recurrence. Local treatment options including brachytherapy, cryotherapy, and HIFU were considered. The patient was seen at [facility] [place] by Dr. 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 He was seen by Dr. Robb to discuss brachytherapy, but the patient is reluctant to consider. Follow-up PSMA PET scan 05/13/2023 once again revealed evidence of disease in the prostate, but no distant metastasis. PSA continued to slowly increase. When seen 06/26/2023 it was elected to start bicalutamide 50 mg daily. Subsequent PSA has decreased. At this time the patient is clinically stable and minimally symptomatic. For now he will continue as is with bicalutamide plus Lupron. Repeat labs in 2 months. I will see him back in 4 months for follow-up, at which time he will receive his next Lupron and Prolia. 2. History of bladder cancer Superficial bladder cancer diagnosed Jun 2016. Status post TURBT. Status post intravesicular BCG and intravesicular gemcitabine. Continue management per urology (Dr. Shaw). 3. 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 On Prolia 60 mg SQ every 6 months since 2019, previously given at [facility]. Since December 2022 he has been receiving at our facility. Next injection due December 2023. Will monitor bone density DEXA every 2 to 3 years. 4. Hypercalcemia Since September 2022 the patient's calcium has been slowly increasing. Unlikely related to prostate cancer. Will request that the patient discontinue oral calcium supplements. Evaluate as indicated if calcium worsens. Jose Francisco Broussard MD CC: Dr. Leroy Shaw, [facility] documented in this encounter [facility] 08-07-2023 Miscellaneous Notes Patient has an appointment on 08/15/23 for labs then follow up on 08/17/23, please place lab orders. Deyanira Haskins MA documented in this encounter [facility] 07-21-2023 Note HNO ID: [id number] Author: LOLA ALLEN OD Service: ? Author Type: CISO Type: Progress Notes Filed: 07/21/2023 14:42 Note Text: ASSESSMENT/PLAN: 1. 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 Pseudophakia of both eyes - ICD9: V43.1, ICD10: Z96.1 Stable monitor 3. PVD (posterior vitreous detachment), both eyes - ICD9: 379.21, ICD10: H43.813 Posterior vitreous detachment Both eyes with Carrillo rings. Not acute Trio of peripheral floaters OS ?? Opercula No visible retinal breaks July 21, 2023 2:38 PM [facility] 07-21-2023 History of Present illness Narrative ASSESSMENT/PLAN: 1. 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 Pseudophakia of both eyes - ICD9: V43.1, ICD10: Z96.1 Stable monitor 3. PVD (posterior vitreous detachment), both eyes - ICD9: 379.21, ICD10: H43.813 Posterior vitreous detachment Both eyes with Carrillo rings. Not acute Trio of peripheral floaters OS ?? Opercula No visible retinal breaks July 21, 2023 2:38 PM documented in this encounter [facility] 07-03-2023 Miscellaneous Notes Preoperative Education Checklist- General Surgery date: 07/04/23 Surgery time: 0800 Arrival time: 0700 1. Bring a photo ID and your insurance card with you the day of surgery. You will check in at the main lobby at the registration desk near the [facility]. 2. If you have a Living Will/Durable Power of Tomb [employer] for Health Care that is not on file here, please bring a copy the day of surgery. 3. Please shower/tub bath the night before surgery or morning of. 4. NO powder, lotion, perfume/cologne, aftershave, make-up, nail wallisian, deodorant, or hair products after you have [...] doctor for instructions documented in this encounter [facility] 07-03-2023 Nurse Note Preoperative Education Checklist- General Surgery date: 07/04/23 Surgery time: 0800 Arrival time: 0700 1. Bring a photo ID and your insurance card with you the day of surgery. You will check in at the main lobby at the registration desk near the [facility]. 2. If you have a Living Will/Durable Power of Tomb Maker Helper for Health Care that is not on file here, please bring a copy the day of surgery. 3. Please shower/tub bath the night before surgery or morning of. 4. NO powder, lotion, perfume/cologne, aftershave, make-up, nail wallisian, deodorant, or hair products after you have [...] tablet Check with prescribing doctor for instructions [facility] 06-26-2023 Note HNO ID: [id number] Author: JOSE FRANCISCO BROUSSARD MD Service: ? [...] distant metastases. Once again he conferred with [facility] urology, but is reluctant to consider brachytherapy [...] INSERT LENS,EX Bilateral 06/2019 Dr. Grimm - [place], [place] TONSILLECTOMY HX FAMILY HISTORY: FAMILY HISTORY [...] Well developed/well nour (more content not included)... [facility] 06-26-2023 History of Present illness Narrative PATIENT NAME: Jm Barrow DATE: [...] distant metastases. Once again he conferred with [facility] urology, but is reluctant to consider brachytherapy [...] INSERT LENS,EX Bilateral 06/2019 Dr. Alfa [place], [place] TONSILLECTOMY HX FAMILY HISTORY: FAMILY HISTORY [...] atrophy. PATHOLOGY: 02/14/2000 Pelvic lymph node biopsy ([facility], [place]. Doug Regalado) Metastatic prostate adenocarcinoma involving 1 of 3 lymph nodes (right obturator LN) 01/20/2000 TRUS prostate biopsy ([facility]) Prostate adenocarcinoma, [place] composite score 8 LABS: [...] expressing neoplastic process 01/15/2022 Bone density DEXA ([place] [facility]) Osteopenia in bilateral femoral necks ASSESSMENT/PLAN: 1. [...] were considered. The patient was seen at [facility] by Dr. Meza to evaluate for HIFU, [...] 6 months since 2019, previously given at [facility]. Since December 2022 he has been receiving at our facility. He will receive an injection today. Will monitor bone density DEXA every 2 to 3 years. Jose Francisco Broussard MD CC: Dr. Leroy Shaw, [facility] Urology documented in this encounter [facility] 05-24-2023 Note HNO ID: [id number] Author: JAMES ROBB MD Service: ? Author Type: Physician Type: Progress Notes Filed: 05/24/2023 08:14 Note Text: PATIENT NAME: Jm Barrow [facility] CLINICAL NOTE Radiation Oncology PATIENT NAME: Jm Barrow CLINIC NO.: [id number] ATTENDING PHYSICIAN: James Robb M.D. DATE OF SERVICE: May 24, 2023 I spent 15 minutes in the visit, with more than 50% of the total [id number] time of the visit in counseling / coordination of care. This appointment was done virtually with the consent of the patient. The appointment was conducted while I was at [facility]. HPI: Jm Barrow is a gentleman [...] 2023 cc: Dr. Megan Orosco MD [address] [place] [address] [facility] 05-22-2023 Note HNO ID: [id number] Author: BARB KIRAN MD Service: ? Author [...] BP may drop by 10-15 points. His public health policy analyst was concerned about autonomic neuropathy; recommending to [...] - 04/13/23 Hea (more content not included)... [facility] 05-17-2023 Note HNO ID: [id number] Author: Ace Guzman MD Service: ? Author [...] cancer [place] 8, (more content not included)... [facility] 05-12-2023 History of Present illness Narrative Radiology Service Progress Note DATE OF SERVICE: [...] Value Ref Range Status 09/20/2022 85 >=60 mL/min/1.73m Final Comment: Estimated Glomerular Filtration Rate (eGFR) [...] DATE: May 12, 2023 TIME: 1:21 PM RADIOLOGY SERVICE PROGRESS NOTE SERVICE DATE: 05/12/2023 SERVICE TIME: 2:47 PM PATIENT IDENTITY VERIFICATION COMPLETED USING TWO (2) STANDARD IDENTIFIERS: Name and Date of confirmed by patient verbally POST EXAM PIV STATUS: Discontinued PROCEDURE TYPE: NM INJECT: PET/CT BODY SCAN. 10.8 mCi [id number]. No other medications given.. ADMINISTRATION TIME: 1321 PATIENT DISCHARGED TO: Ambulatory patient, left [place] department area. A Diagnostic radioactive procedure has taken place, with no further precautions necessary other than routine body substance precautions. More information regarding radiation safety can be found using this link: [email or web address]%20N uclear%[email or web address] df SIGNATURE: RT Radha(R) PATIENT NAME: Jm Barrow DATE: May 12, 2023 TIME: 2:47 PM PAGER/CONTACT #: documented in this encounter [facility] 05-12-2023 Note HNO ID: [id number] Author: Umer Browne RT(R) Service: ? Author Type: Technologist Type: Progress Notes Filed: 05/12/2023 2:47 PM Note Text: RADIOLOGY SERVICE PROGRESS NOTE SERVICE DATE: 05/12/2023 SERVICE TIME: 2:47 PM PATIENT IDENTITY VERIFICATION COMPLETED USING TWO (2) STANDARD IDENTIFIERS: Name and Date of confirmed by patient verbally POST EXAM PIV STATUS: Discontinued PROCEDURE TYPE: NM INJECT: PET/CT BODY SCAN. 10.8 mCi [id number]. No other medications given.. ADMINISTRATION TIME: 1321 PATIENT DISCHARGED TO: Ambulatory patient, left [place] department area. A Diagnostic radioactive procedure has taken place, with no further precautions necessary other than routine body substance precautions. More information regarding radiation safety can be found using this link: [email or web address] [email or web address] SIGNATURE: RT Radha(R) PATIENT NAME: Jm Barrow DATE: May 12, 2023 TIME: 2:47 PM PAGER/CONTACT #: [facility] 05-12-2023 Note HNO ID: [id number] Author: Tiffany Riddle RN Service: ? Author [...] DATE: May 12, 2023 TIME: 1:21 PM [facility] 04-11-2023 Miscellaneous Notes Auth#:[id number] Date Range: 04-11-23 to 07-09-2023 60702/PSMA- piflufolastat (Natoarify) Khadijah GUTIERREZ Ace Montoya INS Contact Number: Intake: online Case/Ref#: [id number] Notes: 04/11/2023 Authorized online via Sherie/Abdi routed to [place] and U[place] for scheduling in [place] per patient's request Authorization number: PSMA Authorization date range: PSMA Primary Insurance: [employer] Diagnosis: Prostate cancer (HCC) [C61] DX Imaging: PET Scan: 06/02/2022 PET Pathology: 02/14/2000 Pelvic lymph node biopsy ([facility], [place]. Doug Regalado) Metastatic prostate adenocarcinoma involving 1 of 3 lymph nodes (right obturator LN) PROSTATE GLAND, LEFT, LEVELS 1-4 , NEEDLE BIOPSIES ([id number], A-D) - PROSTATIC ADENOCARCINOMA, KITA SCORE 7 (4+3). Comment: Adenocarcinoma involves 60% of the needle biopsy specimens. Perineural invasion is present. 2. PROSTATE GLAND, RIGHT, LEVELS 1-4, NEEDLE BIOPSIES ([id number]; E-H) - PROSTATIC ADENOCARCINOMA, KITA SCORE 7 (4+3) 01/20/2000 TRUS prostate biopsy ([facility]) Prostate adenocarcinoma, Kita composite score 8 Labs: [...] No - Schedule as requested Comments for Segmental Paver Installer: EL: As soon as insurance will allow ROUTE TO SCHEDULERS POOL P PET E BUSINESS SPECIALIST or P NM SPECIAL STUDIES This form is used for MAIN CAMPUS APPOINTMENTS ONLY. Is this request for a [place] PET scan appointment? Yes: Glost Tile Sorter: Teresa Romero Requesting Person Dr guzman: Area Code + Phone/Pager: [phone] Who do we call to schedule this appointment? Other Contact: PSMA pet please message anne browne in [place] Requesting Staff Dr guzman Area Code + Phone/Pager: [phone] PET Orders (A delay in scheduling will [...] COORD REVIEW [facility] documented in this encounter [facility] 04-10-2023 Note HNO ID: [id number] Author: Jose Francisco Broussard MD Service: ? [...] he was seen by Dr. Robb at [facility] to discuss possible brachytherapy for his localized [...] CATARACT, INSERT LENS,EX Bilateral 06/2019 Dr. Grimm [facility], [place] TONSILLECTOMY HX FAMILY HISTORY: FAMILY [...] jaundice. ENDO/URO: Negati (more content not included)... [facility] 03-27-2023 Note HNO ID: [id number] Author: Skye Murphy PA-C Service: ? Author Type: Physician Silver Solderer Type: Progress Notes Filed: 03/27/2023 3:12 PM Note Text: Skin Biopsy Procedure Note Skin Biopsy Accession Number: [id number] Biopsy Date: 03/27/2023 Referring physician: Barb Kiran [...] Procedure Note Procedure confirmed with provider and computer network support specialist. Yes, left leg 2 skin biopsies. The [...] home. Specimens were labeled and sent to [facility] Cut[facility]. Procedure was performed by: Skye Murphy PA-C Assistance in supply/equipment preparation performed by: JUSTINO Mosley Sign out is complete. [facility] 03-27-2023 History of Present illness Narrative Skin Biopsy Procedure Note Skin Biopsy Accession Number: [id number] Biopsy Date: 03/27/2023 Referring physician: Barb Kiran [...] Procedure Note Procedure confirmed with provider and computer network support specialist. Yes, left leg 2 skin biopsies. The [...] home. Specimens were labeled and sent to [facility] Cut[facility]. Procedure was performed by: Skye Murphy PA-C Assistance in supply/equipment preparation performed by: JUSTINO Mosley Sign out is complete. documented in this encounter [facility] 03-27-2023 Note HNO ID: [id number] Author: Martha White Service: ? Author Type: [...] Care Visit completed when applicable. Martha White [facility] 03-27-2023 History of Present illness Narrative UNIVERSAL PROTOCOL / SAFETY CHECKLIST [...] applicable. Martha White documented in this encounter [facility] 03-27-2023 Note HNO ID: [id number] Author: Martha White Service: ? Author Type: [...] Care Visit completed when applicable. Martha White [facility] 03-27-2023 History of Present illness Narrative UNIVERSAL PROTOCOL / SAFETY CHECKLIST [...] Plan of Care Visit completed when applicable. Mratha White documented in this encounter [facility] 02-23-2023 History of Present illness Narrative Images from the original note [...] follow-up with Dr. Shaw. 2 Prostate cancer Birmingham 8, node positive with prior treatment including [...] Ace Guzman MD cc: Arline Orosco MD [address] [place] [phone] [address] Broussard. Portions of the above note extracted and edited from previous visit as well as active information included in the EMR. documented in this encounter [facility] 02-23-2023 Nurse Note AUA= 12 documented in this encounter [facility] 12-28-[address] Broussard spoke w/ Dr Guzman regarding radiation seed implant for pt. Dr Guzman recommends pt see Dr Robb as scheduled. Pt notified and verbalizes understanding. 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 Grimm [place], [place] TONSILLECTOMY HX Medications Current Outpatient Medications [...] male who presents with a history of [place] 8 prostate cancer, node positive- s/p abdominal [...] Meza MD Urologic Staff Center Urologic Oncology [facility]rological [facility] [place] [facility] Manny Meza MD Urologic Staff [facility] Medical Decision Making: Problems: Moderate: New problem with uncertain prognosis Data: Unique test result(s) reviewed: 1 Unique test(s) ordered: 1 Risk: Moderate: Moderate risk from testing/treatment Medical Decision Making Level: 4 - Moderate documented in this encounter [facility] 12-07-2022 Nurse Note Summary: BLADDER S CAN PATIENT PVR READING 0mL documented in this encounter [facility] 11-24-2022 History of Present illness Narrative Images from the original note [...] Ace Guzman MD cc: [place] [address] [place] [phone] [address] Broussard. Portions of the above note extracted and edited from previous visit as well as active information included in the EMR. documented in this encounter [facility] 09-22-2022 History of Present illness Narrative PATIENT NAME: Jm Barrow DATE: [...] INSERT LENS,EX Bilateral 06/2019 Dr. [place]fa [place], [place] TONSILLECTOMY HX FAMILY HISTORY: FAMILY HISTORY [...] atrophy. PATHOLOGY: 02/14/2000 Pelvic lymph node biopsy ([facility], Dr. Doug Regalado) Metastatic prostate adenocarcinoma involving 1 of 3 lymph nodes (right obturator LN) 01/20/2000 TRUS prostate biopsy ([facility]) Prostate adenocarcinoma, Kita composite score 8 LABS: [...] expressing neoplastic process 01/15/2022 Bone density DEXA ([facility]) Osteopenia in bilateral femoral necks ASSESSMENT/PLAN: 1. [...] [facility] documented in this encounter [facility] 08-25-2022 Nurse Note AUA=21 documented in this encounter [facility] 08-15-2022 Miscellaneous Notes Radiology Service Progress [...] 2022 1:43 PM documented in this encounter [facility] 08-15-2022 Nurse Note Radiology Service Progress [...] TIME: 12:43 PM documented in this encounter [facility] 07-25-2022 Miscellaneous Notes I will ask [...] has been elevated and he went to [facility] this past week for that. Pt states he was started on metoprolol and on other med that he can't remember the name of. . Barbara: please get records BRM: please advise Teresa Angelo RN documented in this encounter [facility] 07-18-2022 History of Present illness Narrative ASSESSMENT/PLAN: 1. Hypertropia of right [...] 2022 1:49 PM documented in this encounter [facility] 07-13-2022 Miscellaneous Notes Pt notified and [...] to Dr. Broussard. documented in this encounter [facility] 06-27-2022 Miscellaneous Notes Thanks. BRClem Jm has decided to move forward with the Xtandi, he received his 14 day free trial on 06/24/22. I was able to secure a ronda that will cover next month and we will pursue free drug following that. He will complete the application when he comes in for his 07/07/22 appt. Matthias Pa [facility] documented in this encounter [facility] 06-22-2022 Miscellaneous Notes Thanks, order signed. [...] Matthias Pa rPh documented in this encounter [facility] 06-21-2022 Miscellaneous Notes Ambulatory Pharmacy Prior Authorization Note Provider Intervention Required?: No- Pharmacy completed on your behalf. Rx Plan: Other: [facility]: Xtandi Cover My Meds Torres: [id number] Determination: Approved Prior Authorization/Case #: [id number] Prior Authorization Expiration: 06/21/2023 Time to PA Submission in CMM: 15 min Time to PA Determination in CMM: Same day Additional Information: $3,107.12 - will need to reach out to patient For questions relating to this submission, please contact [facility] at [phone] documented in this encounter [facility] 06-20-2022 History of Present illness Narrative PATIENT NAME: Jm Barrow DATE: [...] INSERT LENS,EX Bilateral 06/2019 Dr. Grimm [place], [place] TONSILLECTOMY HX FAMILY HISTORY: FAMILY HISTORY [...] atrophy. PATHOLOGY: 02/14/2000 Pelvic lymph node biopsy ([facility], Dr. Doug Regalado) Metastatic prostate adenocarcinoma involving 1 of 3 lymph nodes (right obturator LN) 01/20/2000 TRUS prostate biopsy ([facility]) Prostate adenocarcinoma, [place] composite score 8 LABS: Hemoglobin (g/dL) Date [...] expressing neoplastic process 01/15/2022 Bone density DEXA ([facility]) Osteopenia in bilateral femoral necks ASSESSMENT/PLAN: 1. Prostate cancer (HCC) - ICD9: 185, ICD10: C61 Prostate cancer diagnosed January 2000 (prostate biopsy 01/20/2000). Initial staging revealed evidence of lymph node involvement (pelvic lymph node biopsy 02/14/2000). Initial stage T3b, N1, M0; Birmingham 8. The patient received primary treatment with external beam radiation therapy which was completed 2000. ADT with Lupron started at the time of diagnosis and continued until July 2013. January 2017 the patient developed an increasing PSA and Lupron resumed, currently given every 6 months (last given October 2021 at [facility]). Due to an increasing PSA the patient [...] months since 2019, last given May 2022 ([facility]). Will continue as planned. Would monitor bone density DEXA every 2 to 3 years. Jose Francisco Broussard MD CC: Dr. Leroy Shaw documented in this encounter [facility] 06-10-2022 Evaluation note Diagnosis Cancer of prostate w/med recur risk (T2b-c or Kita 7 or PSA 10-20) ([facility])- Primary Malignant neoplasm of prostate documented in this encounter [facility]01-24-2023 History of Present illness Narrative* G Fox [...] follow-up with his urologist. 2 Prostate cancer [place] 8, node positive with prior treatment including [...] Ace Guzman [place] cc: [place] [address] [place] [phone] Portions of the above note extracted and edited from previous visit as well as active information included in the EMR. [facility] History of Present illness Narrative* Umer Browne RT(R) - 06/02/2022 1:30 PM EST RADIOLOGY SERVICE PROGRESS NOTE SERVICE DATE: 06/02/2022 SERVICE TIME: 1:33 PM PATIENT IDENTITY VERIFICATION COMPLETED USING TWO (2) STANDARD IDENTIFIERS: Name and Date of confirmed by patient verbally POST EXAM PIV STATUS: Discontinued PROCEDURE TYPE: NM INJECT: PET/CT BODY SCAN. 10.8 mCi F18 FDG. No other medications given.. ADMINISTRATION TIME: 1327 PATIENT DISCHARGED TO: Ambulatory patient, left [place] department area. A Diagnostic radioactive procedure has taken place, with no further precautions necessary other than routine body substance precautions. More information regarding radiation safety can be found usingthis link: [email or web address] SIGNATURE: MK Garcia) PATIENT NAME: Jm Barrow DATE: June 02, 2022 TIME: 1:33 PM PAGER/CONTACT #: * Lorraine Bermudez RN - 06/02/2022 1:30 PM EST Radiology Service Progress Note DATE OF SERVICE: [...] Left antecubital site with a Angio cath: 22gauge. IV SITE APPEARANCE: Clean,Dry and Intact SIGNATURE: Lorraine Bermudez RN PATIENT NAME: Jm Barrow DATE: June 02, 2022 TIME: 1:40 PM [facility] Miscellaneous Notes* Telephone Encounter - Lena Dowd RN - 04/20/2022 8:11 AM EST Will submit for [facility] approval closer to May 2022. submitted 05-06-22 * Telephone Encounter - Lena Dowd RN - 04/19/2022 12:48 PM EST Auth#: [id number] Date Range: 05/06/2022 to 08/03/2022 79239/PSMA- piflufolastat F [id number] NPI: Donte Montes [id number] Member ID : Abdi Aragon [id number] INS Contact Number: [facility] [phone] Intake: Sophia started case Case/Ref#: [id number] Notes: faxed 11 pages clinical to Clinical Review Nurse at [phone]. Sophia stated case not meeting criteria and needed Peer to Peer. Email to [facility]/ Dr Simon Barrow [id number] PET/CT Prostate scan needs Peer to Peer at [phone] case [id number] email to Dr Megan Aguirre RN, Jm Barrow [phone] PET/CT Prostate scan needs Peer to Peer at [phone] case [id number]. Did you get approval? On epic referral [facility] documented approval: Authorization #: [id number] Valid From: 05/06/2022 to 08/03/2022 * Telephone Encounter - Lena Dowd RN - 04/19/2022 12:42 PM EST Authorization number: PSMA [id number] Authorization date range: PSMA 05/06/2022 to 08/03/2022 1-dos Primary Insurance: Abdi Aragon [id number] Diagnosis: History of prostate cancer [Z85.46] Cancer of prostate w/med recur risk (T2b-c or Kita 7 or PSA 10-20) (HCC) [C61] DX Imaging: CT/CTA: 01-30-[address] Pathology: Prostate cancer 2000 Labs: 03-14-22 PSA 0.48 8-2-21 PSA 0.20 5--18 PSA 0.15 Clinical Notes Reviewed: 03-22-22 Rad [...] No - Schedule as requested 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 Is this request for a [place] PET scan appointment? Yes: Glost Tile Sorter: Maral Dominique Requesting Person (Last Name, First Name): Rasta Dominique Area Code + Phone/Pager: [phone] Who do we call to schedule this appointment? Other Contact: PSMA PET in [place]), route to Anne Browne to schedule. Requesting Staff Jud Guzman Area Code + Phone/Pager: [phone] PET Orders (A delay in scheduling will [...] need anesthesia? NO Send requests to [facility] note* Diagnosis History of prostate cancer- Primary Personal history of malignant neoplasm of prostate Cancer of prostate w/med recur risk (T2b-c or Kita 7 or PSA 10-20) (HCC) Malignant neoplasm of prostate documented in this encounter [facility]11-08-20[facility] Nurse Note* Mali Mora LPN - 03/22/2022 1:12 PM EST AUA= 11 [facility] History of Present illness Narrative* G Fox [...] follow-up with his urologist. 2 Prostate cancer [place] 8, node positive with prior treatment including [...] Ace Guzman MD cc: Arline Orosco MD [address] [place] [phone] Portions of the above note extracted and edited from previous visit as well as active information included in the EMR. [facility] History of Present illness Narrative* Lola Faulkner Augustgabby, OD - 08/23/2021 3:06 PM EDT ASSESSMENT/PLAN: 1. 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 Diplopia - ICD9: 368.2, ICD10: H53.2 3. Pseudophakia of both eyes - ICD9: V43.1, ICD10: Z96.1 4. Monocular diplopia of right eye - ICD9: 368.2, ICD10: H53.2 Refine spec Rx per pt request [facility] degrees of AXIS [...] 23, 2021 3:06 PM [facility] History of Past illness Narrative* Problem Noted Date Resolved Date BPH (benign prostatic hyperplasia) 06/23/2021 documented as of this encounter (statuses as of 08/23/2021) [address]09-2022 History of Past illness Narrative* Problem Noted Date Resolved Date BPH (benign prostatic hyperplasia) 06/23/2021 documented as of this encounter (statuses as of 03/28/2022) [address]09-2022 History of Past illness Narrative* Problem Noted Date Resolved Date BPH (benign prostatic hyperplasia) 06/23/2021 documented as of this encounter (statuses as of 05/31/2022) [address]09-2022 History of Past illness Narrative* Problem Noted Date Resolved Date BPH (benign prostatic hyperplasia) 06/23/2021 documented as of this encounter (statuses as of 06/10/2022) [address]09-2022 History of Past illness Narrative* Problem Noted Date Resolved Date BPH (benign prostatic hyperplasia) 06/23/2021 documented as of this encounter (statuses as of 06/16/2022) [address]09-2022 History of Past illness Narrative* Problem Noted Date Resolved Date BPH (benign prostatic hyperplasia) 06/23/2021 documented as of this encounter (statuses as of 06/22/2022) [address]09-2022 History of Past illness Narrative* Problem Noted Date Resolved Date BPH (benign prostatic hyperplasia) 06/23/2021 documented as of this encounter (statuses as of 06/22/2022) [address]09-2022 History of Past illness Narrative* Problem Noted Date Resolved Date BPH (benign prostatic hyperplasia) 06/23/2021 documented as of this encounter (statuses as of 06/23/2022) [address]09-2022 History of Past illness Narrative* Problem Noted Date Resolved Date BPH (benign prostatic hyperplasia) 06/23/2021 documented as of this encounter (statuses as of 06/27/2022) [address]09-2022 History of Past illness Narrative* Problem Noted Date Resolved Date BPH (benign prostatic hyperplasia) 06/23/2021 documented as of this encounter (statuses as of 07/07/2022) [address]09-2022 History of Past illness Narrative* Problem Noted Date Resolved Date BPH (benign prostatic hyperplasia) 06/23/2021 documented as of this encounter (statuses as of 07/13/2022) [address]09-2022 History of Past illness Narrative* Problem Noted Date Resolved Date BPH (benign prostatic hyperplasia) 06/23/2021 documented as of this encounter (statuses as of 07/18/2022) [address]09-2022 History of Past illness Narrative* Problem Noted Date Resolved Date BPH (benign prostatic hyperplasia) 06/23/2021 documented as of this encounter (statuses as of 07/26/2022) [address]09-2022 History of Past illness Narrative* Problem Noted Date Resolved Date BPH (benign prostatic hyperplasia) 06/23/2021 documented as of this encounter (statuses as of 08/16/2022) [address]09-2022 History of Past illness Narrative* Problem Noted Date Resolved Date BPH (benign prostatic hyperplasia) 06/23/2021 documented as of this encounter (statuses as of 09/23/2022) [address]09-2022 History of Past illness Narrative* Problem Noted Date Diagnosed Date Resolved Date BPH (benign prostatic hyperplasia) 06/23/2021 documented as of this encounter (statuses as of 11/25/2022) [address]09-2022 History of Past illness Narrative* Problem Noted Date Diagnosed Date Resolved Date BPH (benign prostatic hyperplasia) 06/23/2021 documented as of this encounter (statuses as of 12/08/2022) [address]09-2022 History of Past illness Narrative* Problem Noted Date Diagnosed Date Resolved Date BPH (benign prostatic hyperplasia) 06/23/2021 documented as of this encounter (statuses as of 12/12/2022) [address]09-2022 History of Past illness Narrative* Problem Noted Date Diagnosed Date Resolved Date BPH (benign prostatic hyperplasia) 06/23/2021 documented as of this encounter (statuses as of 12/27/2022) [address]09-2022 History of Past illness Narrative* Problem Noted Date Diagnosed Date Resolved Date BPH (benign prostatic hyperplasia) 06/23/2021 documented as of this encounter (statuses as of 12/29/2022) [address]09-2022 History of Past illness Narrative* Problem Noted Date Diagnosed Date Resolved Date BPH (benign prostatic hyperplasia) 06/23/2021 documented as of this encounter (statuses as of 03/01/2023) [address]09-2022 History of Past illness Narrative* Problem Noted Date Diagnosed Date Resolved Date BPH (benign prostatic hyperplasia) 06/23/2021 documented as of this encounter (statuses as of 03/28/2023) [address]09-2022 History of Past illness Narrative* Problem Noted Date Diagnosed Date Resolved Date BPH (benign prostatic hyperplasia) 06/23/2021 documented as of this encounter (statuses as of 03/28/2023) [address]09-2022 History of Past illness Narrative* Problem Noted Date Diagnosed Date Resolved Date BPH (benign prostatic hyperplasia) 06/23/2021 documented as of this encounter (statuses as of 04/12/2023) [address]09-2022 History of Past illness Narrative* Problem Noted Date Diagnosed Date Resolved Date BPH (benign prostatic hyperplasia) 06/23/2021 documented as of this encounter (statuses as of 06/26/2023) [address]09-2022 History of Past illness Narrative* Problem Noted Date Diagnosed Date Resolved Date BPH (benign prostatic hyperplasia) 06/23/2021 documented as of this encounter (statuses as of 06/27/2023) [address]09-2022 History of Past illness Narrative* Problem Noted Date Diagnosed Date Resolved Date BPH (benign prostatic hyperplasia) 06/23/2021 documented as of this encounter (statuses as of 07/21/2023) [address]09-2022 History of Past illness Narrative* Problem Noted Date Diagnosed Date Resolved Date BPH (benign prostatic hyperplasia) 06/23/2021 documented as of this encounter (statuses as of 08/08/2023) [address]09-2022 History of Past illness Narrative* Problem Noted Date Diagnosed Date Resolved Date BPH (benign prostatic hyperplasia) 06/23/2021 documented as of this encounter (statuses as of 08/18/2023) [facility] of [facility] Narrative* Problem Noted Date Diagnosed Date Resolved Date BPH (benign prostatic hyperplasia) 06/23/2021 documented as of this encounter (statuses as of 08/24/2023) [facility] of Past illness Narrative* Problem Noted Date Diagnosed Date Resolved Date BPH (benign prostatic hyperplasia) 06/23/2021 documented as of this encounter (statuses as of 08/31/2023) [facility]* Diagnosis 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 Lens replaced by other means Monocular diplopia of right eye [facility] Diagnosis Prostate cancer (HCC)- Primary Malignant neoplasm of prostate [facility]* Diagnosis Prostate cancer (HCC)- Primary Malignant neoplasm of prostate [facility] Diagnosis 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 Lens replaced by other means Myopia with astigmatism and presbyopia, bilateral PVD (posterior vitreous detachment), both eyes Vitreous degeneration Dry eye syndrome, bilateral [facility] Diagnosis Cancer of prostate w/med recur risk (T2b-c or Kita 7 or PSA 10-20) (HCC) Malignant neoplasm of prostate [facility] noteNo assessment information availableMet[facility] Work Phone: Evaluation note* Diagnosis Prostate cancer (HCC)- Primary Malignant neoplasm of prostate Osteopenia of multiple sites Primary hypertension Unspecified essential hypertension [facility]* Diagnosis Malignant neoplasm of prostate (HCC)- Primary Malignant neoplasm of prostate [facility]* Diagnosis Malignant neoplasm of prostate (HCC) Malignant neoplasm of prostate [facility]* Diagnosis Screening for genitourinary condition Screening for other and unspecified genitourinary condition documented [facility]* Diagnosis Osteopenia of multiple sites- Primary Prostate cancer (HCC) Malignant neoplasm of prostate [facility]* Diagnosis History of prostate cancer- Primary Personal history of malignant neoplasm of prostate Prostate cancer (HCC) Malignant neoplasm of prostate [facility] Diagnosis Orthostatic hypotension- Primary [facility]* Diagnosis Orthostatic hypotension- Primary [facility]* Diagnosis Prostate cancer (HCC)- Primary Malignant neoplasm of prostate Osteopenia of multiple sites [facility]* Diagnosis Prostate cancer (HCC)- Primary Malignant neoplasm of prostate Osteopenia of multiple sites documented [facility]* Diagnosis 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 Lens replaced by other means PVD (posterior vitreous detachment), both eyes Vitreous degeneration documented [facility]* Diagnosis Prostate cancer (HCC)- Primary Malignant neoplasm of prostate [facility]* Diagnosis Prostate cancer (HCC)- Primary Malignant neoplasm of prostate Osteopenia of multiple sites [facility]* Diagnosis Onset Date Resolution Status AAA (abdominal aortic aneurysm) acute Carotid stenosis, bilateral acute Current smoker acute [facility] Work Phone: Evaluation note* Diagnosis Prostate cancer (HCC)- Primary Malignant neoplasm of prostate documented [facility]* Diagnosis Prostate cancer (HCC)- Primary Malignant neoplasm of prostate Osteopenia of multiple sites [facility]* Diagnosis Prostate cancer (HCC)- Primary Malignant neoplasm of prostate Pain of right hip Osteopenia of multiple sites Encounter for screening for osteoporosis Special screening for osteoporosis Hypercalcemia documented [facility]* Diagnosis Malignant neoplasm of prostate (HCC) Malignant neoplasm of prostate documented [facility]* Diagnosis History of prostate cancer Personal history of malignant neoplasm of prostate Cancer of prostate w/med recur risk (T2b-c or [place] 7 or PSA 10-20) (HCC) Malignant neoplasm of prostate [facility]* Diagnosis Prostate cancer (HCC)- Primary Malignant neoplasm of prostate Osteopenia of multiple sites [facility]* Diagnosis Malignant neoplasm of prostate (HCC)- Primary Malignant neoplasm of prostate [facility]* Diagnosis Onychomycosis- Primary Dermatophytosis of nail Peripheral arterial disease (CMS/HCC) Unspecified peripheral vascular disease Corns and callosities 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 -[place] [id number] DO Work Phone: InstructionsNot on filedocumented in this encounter [facility] ([facility])* Diagnostic Procedure Only (Routine) - Pending Review Specialty Diagnoses / Procedures Referred By Contac t Referred To Contact MOLECULAR & FUNCTIONAL IMAGING Diagnoses History of prostate cancer Cancer of prostate w/med recur risk (T2b-c or Kita 7 or PSA 10-20) ([facility]) Procedures NM PET/CT PROSTATE WHOLE BODY IMAGING PET IMAGING CT ATTENUATION SKULL BASE MID-THIGH Ace Guzman MD [address] [place] [address] [place] [address] Molecular & Functional Imaging [address] [place] [address] Referral ID Status Reason Start Date Expiration Date Visits Requested Visits Authorized [id number] Pending Review Auto-Generat ed Referral 05/22/2022 04/21/2023 1 1 [facility] for referral (narrative)* Diagnostic Procedure Only (Routine) - Authorized Specialty Diagnoses / Procedures Referred By Contac t Referred To Contact MOLECULAR & FUNCTIONAL IMAGING Diagnoses Prostate cancer (HCC) Procedures NM PET/CT PROSTATE WHOLE BODY IMAGING PET IMAGING CT ATTENUATION SKULL BASE MID-THIGH Ace Guzman MD [address] [place] [address] [place] [address] Molecular & Functional Imaging [address] [place] [address] Referral ID Status Reason Start Date Expiration Date Visits Requested Visits Authorized [id number] Authorized Auto-Generat ed Referral 05/26/2023 03/24/2024 1 1 [facility] for referral (narrative)* Diagnostic Procedure Only (Routine) - New Request Specialty Diagnoses / Procedures Referred By Contac t Referred To Contact XR IMAGING Diagnoses Prostate cancer (HCC) Pain of right hip Osteopenia of multiple sites Procedures DXA-AXIAL SKELETON Isadora Carty PA-C [address] [place] [address] [place] [address] Xr Imaging [facility] Referral ID Status Reason Start Date Expiration Date Visits Requested Visits Authorized [id number] New Request Auto-Generat ed Referral 12/20/2023 01/18/2025 1 1 * Diagnostic Procedure Only (Routine) - New Request Specialty Diagnoses / Procedures Referred By Contac t Referred To Contact XR IMAGING Diagnoses Prostate cancer (HCC) Pain of right hip Procedures XR PELVIS 2V INLET/OUTLET RADIOLOGIC EXAMINATION PELVIS 1/2 VIEWS Isadora Carty PA-C [address] [facility] [place] [address] [place] [address] Referral ID Status Reason Start Date Expiration Date Visits Requested Visits Authorized [id number] New Request Auto-Generat ed Referral 12/20/2023 01/18/2025 1 1 * Diagnostic Procedure Only (Routine) - New Request Specialty Diagnoses / Procedures Referred By Contac t Referred To Contact XR IMAGING Diagnoses Prostate cancer (HCC) Pain of right hip Procedures XR HIP 2V AP/LAT RIGHT (AK,FL,ME,UN) RADEX HIP UNILATERAL WITH PELVIS 2-3 VIEWS Isadora Carty PA-C [address] [place] [address] Xr Imaging [place] [address] Referral ID Status Reason Start Date Expiration Date Visits Requested Visits Authorized [id number] New Request Auto-Generat ed Referral 12/20/2023 01/18/2025 1 1 [facility] for referral (narrative)* Diagnostic Procedure Only (Routine) - Closed Specialty Diagnoses / Procedures Referred By Contac t Referred To Contact MOLECULAR & FUNCTIONAL IMAGING Diagnoses Malignant neoplasm of prostate (HCC) Procedures NM PET/CT PROSTATE WHOLE BODY IMAGING PET IMAGING CT ATTENUATION SKULL BASE MID-THIGH James Robb MD [address] [place] [address] Molecular & Functional Imaging [address] [place] [address] Referral ID Status Reason Start Date Expiration Date V isits Requested Visits Authorized [id number] Closed Auto-Generate d Referral 01/04/2023 02/03/2024 1 1 [facility] for referral (narrative)* Diagnostic Procedure Only (Routine) - Closed Specialty Diagnoses / Procedures Referred By Contac t Referred To Contact MOLECULAR & FUNCTIONAL IMAGING Diagnoses History of prostate cancer Cancer of prostate w/med recur risk (T2b-c or [place]ita 7 or PSA 10-20) (HCC) Procedures NM PET/CT PROSTATE WHOLE BODY IMAGING PET IMAGING CT ATTENUATION SKULL BASE MID-THIGH F-18 PSMA Ace De Leon MD [address] [address] [place] [address] Molecular & Functional Imaging [address] [place] [address] Referral ID Status Reason Start Date Expiration Date V isits Requested Visits Authorized [id number] Closed Auto-Generate d Referral 05/06/2022 08/03/2022 1 1 [facility] for referral (narrative)* Diagnostic Procedure Only (Routine) - New Request Specialty Diagnoses / Procedures Referred By Contac t Referred To Contact MOLECULAR & FUNCTIONAL IMAGING Diagnoses Malignant neoplasm of prostate (HCC) Procedures NM PET/CT PROSTATE WHOLE BODY IMAGING PET IMAGING CT ATTENUATION SKULL BASE MID-THIGH Ace Guzman MD [address] [place] [address] [place] [address] Molecular & Functional Imaging [address] [place] [id number] Referral ID Status Reason Start Date Expiration Date Visits Requested Visits Authorized [id number] New Request Auto-Generat ed Referral 05/17/2024 03/16/2025 1 1 T [facility] Summary Purpose Family History Unknown Family Member Name Dates Details Family [...] No pertinent family history: Sibling(V49.89, Z78.9) Status:Active Relationship Condition Age at Onset Recorded Date/T jennifer brother Malignant neoplasm Unknown father Malignant neoplasm Unknown Diabetes mellitus Unknown Unknown Heart disease Unknown mother Heart disease Unknown Malignant neoplasm Unknown Advance Directives Documents on File Type Date Recorded Patient [employer] anation Advance Directive(s) 06/24/2021 8:42 AM Advance Directive(s) 11/08/2019 9:14 AM Advance Directive Response Recorded Date/ Time Advance Directives No September 12, 2018 6:07pm Reason for Referral Specialty Diagnoses / Procedures Referred By Contac t Referred To Contact Oncology Diagnoses Cancer of prostate w/med recur risk (T2b-c or [place] 7 or PSA 10-20) (HCC) Procedures CONSULT TO ONCOLOGY OFFICE/OUTPATIENT NEW HIGH MDM 60-74 MINUTES Ace Guzman MD [address] [place] [address] [place] [address] Referral ID Status Reason Start Date Expiration Date Visits Requested Visits Authorized [id number] Pending Review PCP Requested Referral 06/07/2022 06/07/2023 1 1 Specialty Diagnoses / Procedures Referred By Contac t Referred To Contact MR IMAGING Diagnoses Cancer of prostate w/med recur risk (T2b-c or [place] 7 or PSA 10-20) (HCC) Procedures MRI PROSTATE WO/W IVCON MRI PELVIS W/O & W/CONTRAST MATERIAL Ace Guzman MD [address] [place] [address] [place] [address] Mr Imaging Referral ID Status Reason Start Date Expiration Date Visits Requested Visits Authorized [id number] Authorized Auto-Generat ed Referral 06/07/2022 07/07/2023 1 1 Referral ID Status Reason Start Date Expiration Date V isits Requested Visits Authorized [id number] Closed Auto-Generate d Referral 06/07/2022 07/07/2023 1 1 Specialty Diagnoses / Procedures Referred By Contac t Referred To Contact Urology Diagnoses Malignant neoplasm of prostate (HCC) Procedures CONSULT TO UROLOGY OFFICE/OUTPATIENT NEW [facility] MDM 60-74 MINUTES Ace Guzman MD [address] [facility] [place] [address] Referral ID Status Reason Start Date Expiration Date Visits Requested Visits Authorized [id number] Pending Review PCP Requested Referral 11/24/2022 11/24/2023 1 1 Specialty Diagnoses / Procedures Referred By Contac t Referred To Contact Radiation Oncology Diagnoses Malignant neoplasm of prostate (HCC) Procedures RAD/ONC CONSULT OFFICE/OUTPATIENT NEW [facility] 60-74 MINUTES Manny Meza MD [address] [facility] [address] [place] [address] Referral ID Status Reason Start Date Expiration Date Visits Requested Visits Authorized [id number] Pending Review PCP Requested Referral 12/07/2022 12/07/2023 [...] for Visit Chief Complaint i65.23 Chief Complaint 1 YR F/U; CAROTID DU PLEX I65.23 Reason for Visit AAA (abdominal aorti c aneurysm) Carotid stenosis, bilateral Current smoker Chief Complaint JM PUSHPA is being seen [...] and content) DATE CREATED AUTHOR 11/07/2017 [facility] DATE CREATED AUTHOR AUTHOR'S ORGANIZ ATION 08/04/2022 [facility] DATE CREATED AUTHOR AUTHOR'S ORGANIZ ATION 08/18/2022 [facility] DATE CREATED AUTHOR AUTHOR'S ORGANIZ ATION 10/25/2022 [employer] DATE CREATED AUTHOR AUTHOR'S ORGANIZ ATION 10/25/2022 [facility] DATE CREATED AUTHOR AUTHOR'S ORGANIZ ATION 02/19/2023 [facility] DATE CREATED AUTHOR AUTHOR'S ORGANIZ ATION 10/18/2023 [facility] DATE CREATED AUTHOR AUTHOR'S ORGANIZ ATION 11/29/2023 [facility] DATE CREATED AUTHOR AUTHOR'S ORGANIZ ATION 12/08/2023 [facility] DATE CREATED AUTHOR AUTHOR'S ORGANIZ ATION 01/12/2024 [facility] DATE CREATED AUTHOR AUTHOR'S ORGANIZ ATION 02/24/2024 [facility] DATE CREATED AUTHOR AUTHOR'S ORGANIZ ATION 04/28/2024 [facility] [employer] Comments (unrecognize d section and content) In the event this informatio n is protected by the Federal Confidentiality of Alcohol and Drug Abuse Patient Records regulations: The Federal rules restrict any use of the information to criminally investigate or prosecute any alcohol or drug abuse patient.[facility] Hospital[facility] the event this information is protected by the Federal Confidentiality of Alcohol and Drug Abuse Patient Records regulations: The Federal rules restrict any use of the information to criminally investigate or prosecute any alcohol or drug abuse patient.[facility] HospitalIn the event this information is protected by the Federal Confidentiality of Alcohol and Drug Abuse Patient Records regulations: The Federal rules restrict any use of the information to criminally investigate or prosecute any alcohol or drug abuse patient.[facility] HospitalIn the event this information is protected by the Federal Confidentiality of Alcohol and Drug Abuse Patient Records regulations: The Federal rules restrict any use of the information to criminally investigate or prosecute any alcohol or drug abuse patient.[facility] HospitalIn the event this information is protected by the Federal Confidentiality of Alcohol and Drug Abuse Patient Records regulations: The Federal rules restrict any use of the information to criminally investigate or prosecute any alcohol or drug abuse patient.[facility] HospitalIn the event this information is protected by the Federal Confidentiality of Alcohol and Drug Abuse Patient Records regulations: The Federal rules restrict any use of the information to criminally investigate or prosecute any alcohol or drug abuse patient.[facility] HospitalIn the event this information is protected by the Federal Confidentiality of Alcohol and Drug Abuse Patient Records regulations: The Federal rules restrict any use of the information to criminally investigate or prosecute any alcohol or drug abuse patient.[facility] HospitalIn the event this information is protected by the Federal Confidentiality of Alcohol and Drug Abuse Patient Records regulations: The Federal rules restrict any use of the information to criminally investigate or prosecute any alcohol or drug abuse patient.[facility] HospitalIn the event this information is protected by the Federal Confidentiality of Alcohol and Drug Abuse Patient Records regulations: The Federal rules restrict any use of the information to criminally investigate or prosecute any alcohol or drug abuse patient.[facility] HospitalIn the event this information is protected by the Federal Confidentiality of Alcohol and Drug Abuse Patient Records regulations: The Federal rules restrict any use of the information to criminally investigate or prosecute any alcohol or drug abuse patient.[facility] HospitalIn the event this information is protected by the Federal Confidentiality of Alcohol and Drug Abuse Patient Records regulations: The Federal rules restrict any use of the information to criminally investigate or prosecute any alcohol or drug abuse patient.[facility] HospitalIn the event this information is protected by the Federal Confidentiality of Alcohol and Drug Abuse Patient Records regulations: The Federal rules restrict any use of the information to criminally investigate or prosecute any alcohol or drug abuse patient.[facility] HospitalIn the event this information is protected by the Federal Confidentiality of Alcohol and Drug Abuse Patient Records regulations: The Federal rules restrict any use of the information to criminally investigate or prosecute any alcohol or drug abuse patient.[facility] HospitalIn the event this information is protected by the Federal Confidentiality of Alcohol and Drug Abuse Patient Records regulations: The Federal rules restrict any use of the information to criminally investigate or prosecute any alcohol or drug abuse patient.[facility] HospitalIn the event this information is protected by the Federal Confidentiality of Alcohol and Drug Abuse Patient Records regulations: The Federal rules restrict any use of the information to criminally investigate or prosecute any alcohol or drug abuse patient.[facility] HospitalIn the event this information is protected by the Federal Confidentiality of Alcohol and Drug Abuse Patient Records regulations: The Federal rules restrict any use of the information to criminally investigate or prosecute any alcohol or drug abuse patient.[facility] HospitalIn the event this information is protected by the Federal Confidentiality of Alcohol and Drug Abuse Patient Records regulations: The Federal rules restrict any use of the information to criminally investigate or prosecute any alcohol or drug abuse patient.[facility] HospitalIn the event this information is protected by the Federal Confidentiality of Alcohol and Drug Abuse Patient Records regulations: The Federal rules restrict any use of the information to criminally investigate or prosecute any alcohol or drug abuse patient.[facility] HospitalIn the event this information is protected by the Federal Confidentiality of Alcohol and Drug Abuse Patient Records regulations: The Federal rules restrict any use of the information to criminally investigate or prosecute any alcohol or drug abuse patient.[facility] HospitalIn the event this information is protected by the Federal Confidentiality of Alcohol and Drug Abuse Patient Records regulations: The Federal rules restrict any use of the information to criminally investigate or prosecute any alcohol or drug abuse patient.[facility] HospitalIn the event this information is protected by the Federal Confidentiality of Alcohol and Drug Abuse Patient Records regulations: The Federal rules restrict any use of the information to criminally investigate or prosecute any alcohol or drug abuse patient.[facility] HospitalIn the event this information is protected by the Federal Confidentiality of Alcohol and Drug Abuse Patient Records regulations: The Federal rules restrict any use of the information to criminally investigate or prosecute any alcohol or drug abuse patient.[facility] HospitalIn the event this information is protected by the Federal Confidentiality of Alcohol and Drug Abuse Patient Records regulations: The Federal rules restrict any use of the information to criminally investigate or prosecute any alcohol or drug abuse patient.[facility] HospitalIn the event this information is protected by the Federal Confidentiality of Alcohol and Drug Abuse Patient Records regulations: The Federal rules restrict any use of the information to criminally investigate or prosecute any alcohol or drug abuse patient.[facility] HospitalIn the event this information is protected by the Federal Confidentiality of Alcohol and Drug Abuse Patient Records regulations: The Federal rules restrict any use of the information to criminally investigate or prosecute any alcohol or drug abuse patient.[facility] HospitalIn the event this information is protected by the Federal Confidentiality of Alcohol and Drug Abuse Patient Records regulations: The Federal rules restrict any use of the information to criminally investigate or prosecute any alcohol or drug abuse patient.[facility] HospitalIn the event this information is protected by the Federal Confidentiality of Alcohol and Drug Abuse Patient Records regulations: The Federal rules restrict any use of the information to criminally investigate or prosecute any alcohol or drug abuse patient.[facility] HospitalIn the event this information is protected by the Federal Confidentiality of Alcohol and Drug Abuse Patient Records regulations: The Federal rules restrict any use of the information to criminally investigate or prosecute any alcohol or drug abuse patient.[facility] HospitalIn the event this information is protected by the Federal Confidentiality of Alcohol and Drug Abuse Patient Records regulations: The Federal rules restrict any use of the information to criminally investigate or prosecute any alcohol or drug abuse patient.[facility] HospitalIn the event this information is protected by the Federal Confidentiality of Alcohol and Drug Abuse Patient Records regulations: The Federal rules restrict any use of the information to criminally investigate or prosecute any alcohol or drug abuse patient.[facility] HospitalIn the event this information is protected by the Federal Confidentiality of Alcohol and Drug Abuse Patient Records regulations: The Federal rules restrict any use of the information to criminally investigate or prosecute any alcohol or drug abuse patient.[facility] HospitalIn the event this information is protected by the Federal Confidentiality of Alcohol and Drug Abuse Patient Records regulations: The Federal rules restrict any use of the information to criminally investigate or prosecute any alcohol or drug abuse patient.[facility] HospitalIn the event this information is protected by the Federal Confidentiality of Alcohol and Drug Abuse Patient Records regulations: The Federal rules restrict any use of the information to criminally investigate or prosecute any alcohol or drug abuse patient.[facility] HospitalIn the event this information is protected by the Federal Confidentiality of Alcohol and Drug Abuse Patient Records regulations: The Federal rules restrict any use of the information to criminally investigate or prosecute any alcohol or drug abuse patient.[facility] HospitalIn the event this information is protected by the Federal Confidentiality of Alcohol and Drug Abuse Patient Records regulations: The Federal rules restrict any use of the information to criminally investigate or prosecute any alcohol or drug abuse patient.[facility] HospitalIn the event this information is protected by the Federal Confidentiality of Alcohol and Drug Abuse Patient Records regulations: The Federal rules restrict any use of the information to criminally investigate or prosecute any alcohol or drug abuse patient.[facility] HospitalIn the event this information is protected by the Federal Confidentiality of Alcohol and Drug Abuse Patient Records regulations: The Federal rules restrict any use of the information to criminally investigate or prosecute any alcohol or drug abuse patient.[facility] HospitalIn the event this information is protected by the Federal Confidentiality of Alcohol and Drug Abuse Patient Records regulations: The Federal rules restrict any use of the information to criminally investigate or prosecute any alcohol or drug abuse patient.[facility] HospitalIn the event this information is protected by the Federal Confidentiality of Alcohol and Drug Abuse Patient Records regulations: The Federal rules restrict any use of the information to criminally investigate or prosecute any alcohol or drug abuse patient.[facility] HospitalIn the event this information is protected by the Federal Confidentiality of Alcohol and Drug Abuse Patient Records regulations: The Federal rules restrict any use of the information to criminally investigate or prosecute any alcohol or drug abuse patient.[facility] HospitalIn the event this information is protected by the Federal Confidentiality of Alcohol and Drug Abuse Patient Records regulations: The Federal rules restrict any use of the information to criminally investigate or prosecute any alcohol or drug abuse patient.[facility] HospitalIn the event this information is protected by the Federal Confidentiality of Alcohol and Drug Abuse Patient Records regulations: The Federal rules restrict any use of the information to criminally investigate or prosecute any alcohol or drug abuse patient.[facility] HospitalIn the event this information is protected by the Federal Confidentiality of Alcohol and Drug Abuse Patient Records regulations: The Federal rules restrict any use of the information to criminally investigate or prosecute any alcohol or drug abuse patient.[facility] Reason for Visit (unrecogniz ed section and content) Reason Comments Refraction Reason Comments Prostate Cancer Reason Comments Nm Pet Request Reason Comments Consult Prostate Cancer Specialty Diagnoses / Procedures Referred By Contac Referred To Contact Oncology Diagnoses Cancer of prostate w/med recur risk (T2b-c or [place] 7 or PSA 10-20) (HCC) Procedures CONSULT TO ONCOLOGY OFFICE/OUTPATIENT [facility] 60-74 MINUTES Ace Guzman MD [facility] [place] [address] Referral ID Status Reason Start Date Expiration Date Visits Requested Visits Authorized [id number] Pending Review PCP Requested Referral 06/07/2022 06/07/2023 1 1 Reason Comments Medication Update Xtandi Reason Comments Medication Authorization Xtandi Reason Comments Medication Update FYI patient deciding to move forward with Xtandi beyond 14 day free trial. Specialty Diagnoses / Procedures Referred By Contac Referred To Contact Diagnoses Prostate cancer (HCC) Procedures LEUPROLIDE ACETATE SUSPNSION Jose Francisco Broussard MD [facility] [place] [address] Christiano Treat [address] [place] [address] Referral ID Status Reason Start Date Expiration Date V isits Requested Visits Authorized [id number] Authorized 07/07/2022 07/07/2023 4 4 Reason Comments Medication Problem Reason Comments Yearly Exam Reason Comments Care Coordination Medication update Specialty Diagnoses / Procedures Referred By Contac t Referred To Contact MR IMAGING Diagnoses Cancer of prostate w/med recur risk (T2b-c or [place] 7 or PSA 10-20) (HCC) Procedures MRI PROSTATE WO/W IVCON MRI PELVIS W/O & W/CONTRAST MATERIAL Ace Guzman MD [address] [place] [address] [place] [address] Mr Imaging Referral ID Status Reason Start Date Expiration Date V isits Requested Visits Authorized [id number] Closed Auto-Generate d Referral 06/07/2022 07/07/2023 1 1 Reason Comments Prostate Cancer 2 month follow up Reason Comments Prostate Cancer Follow up Reason Comments Consult Specialty Diagnoses / Procedures Referred By Contac t Referred To Contact Urology Diagnoses Malignant neoplasm of prostate (HCC) Procedures CONSULT TO UROLOGY OFFICE/OUTPATIENT NEW HIGH MDM 60-74 MINUTES Ace Guzman MD [address] [place] [address] [place] [address] Referral ID Status Reason Start Date Expiration Date Visits Requested Visits Authorized [id number] Pending Review PCP Requested Referral 11/24/2022 11/24/2023 1 1 Reason Comments Care Coordination Radiation Appointmen t Referral ID Status Reason Start Date Expiration Date V isits Requested Visits Authorized [id number] Authorized 07/07/2022 07/07/2024 6 9 Reason Comments Prostate Cancer Specialty Diagnoses / Procedures Referred By Contac t Referred To Contact Diagnoses Prostate cancer (HCC) Procedures LEUPROLIDE ACETATE SUSPNSION Jose Francisco Broussard MD [address] [place] [address] [place] [address] Christiano Treat Ern[address] [place] [address] Reason Comments Pseudophakia Reason Comments Lab Orders Reason Comments Refill Request Reason Comments Results Reason Comments Care Coordination Labs Specialty Diagnoses / Procedures Referred By Contac t Referred To Contact Diagnoses Prostate cancer (HCC) Osteopenia of multiple sites Procedures DENOSUMAB INJECTION Jose Francisco Broussard MD [address] [place] [address] [place] [address] Christiano Treat Ernesto [address] [place] [address] Referral ID Status Reason Start Date Expiration Date V isits Requested Visits Authorized [id number] New Request 09/22/2022 12/16/2024 4 4 Reason Comments Prostate Cancer Reason Comments Radiology NM Specialty Diagnoses / Procedures [facility] To Contact MOLECULAR & FUNCTIONAL IMAGING Diagnoses Malignant neoplasm of prostate (HCC) Procedures NM PET/CT PROSTATE WHOLE BODY IMAGING PET IMAGING CT ATTENUATION SKULL BASE MID-THIGH James Robb MD [address] [place] [address] Molecular & Functional Imaging [address] [place] [address] Referral ID Status Reason Start Date Expiration Date V isits Requested Visits Authorized [id number] Closed Auto-Generate d Referral 01/04/2023 02/03/2024 1 1 Specialty Diagnoses / Procedures [facility] Referred To Contact MOLECULAR & FUNCTIONAL IMAGING Diagnoses History of prostate cancer Cancer of prostate w/med recur risk (T2b-c or [place] 7 or PSA 10-20) (HCC) Procedures NM PET/CT PROSTATE WHOLE BODY IMAGING PET IMAGING CT ATTENUATION SKULL BASE MID-THIGH F-18 PSMA Ace De Leon MD [address] [place] [address] [place] [address] Molecular & Functional Imaging [address] [place] [address] Referral ID Status Reason Start Date Expiration Date V isits Requested Visits Authorized [id number] Closed Auto-Generate d Referral 05/06/2022 08/03/2022 1 1 Reason Comments Prostate Cancer 8 week follow up Care Teams (unrecognized sec tion and content) Registered Vascular Technologist (Rvt) Relationship Specialty Start Date End Date Arline Orosco MD PCP - General Family Practice 06/02/11 Dawna Patrick Urology 02/10/14 Registered Vascular Technologist (Rvt) Relationship Specialty Start Date End Date Arline Orosco MD PCP - General Family Medicine 06/02/11 Dawna Patrick Urology 02/10/14 Registered Vascular Technologist (Rvt) Relationship Specialty Start Date End Date Arline Orosco MD PCP - General Family Medicine 06/02/11 Dawna Patrick Urology 02/10/14 Registered Vascular Technologist (Rvt) Relationship Specialty Start Date End Date Arline Orosco MD PCP - General Family Medicine 06/02/11 Dawna Patrick Urology 02/10/14 Registered Vascular Technologist (Rvt) Relationship Specialty Start Date End Date Arline Orosco MD PCP - General Family Medicine 06/02/11 Dawna Patrick Urology 02/10/14 Registered Vascular Technologist (Rvt) Relationship Specialty Start Date End Date Arline Orosco MD PCP - General Family Medicine 06/02/11 Dawna Patrick Urology 02/10/14 Registered Vascular Technologist (Rvt) Relationship Specialty Start Date End Date Arline Orosco MD PCP - General Family Medicine 06/02/11 Dawna Patrick Urology 02/10/14 Registered Vascular Technologist (Rvt) Relationship Specialty Start Date End Date Arline Orosco MD PCP - General Family Medicine 06/02/11 Dawna Patrick Urology 02/10/14 Jose Francisco Broussard MD [address] [facility] [place] [address] Physician Hematology/Oncology 06/27/22 Christiano Cardenas, TELEVISION NEWS PHOTOGRAPHER.FONDANT MACHINE OPERATOR [address] [facility] [place] [place] [address] Nurse Practitioner Hematology/Oncology 06/27/22 Umer Dale, RN [address] [facility] [place] [address] Specialty Bank Teller Hematology/Oncology 06/27/22 Registered Vascular Technologist (Rvt) Relationship Specialty Start Date End Date Arline Orosco MD PCP - General Family Medicine 06/02/11 Dawna Patrick Urology 02/10/14 Jose Francisco Broussard MD [address] [facility] [place] [address] Physician Hematology/Oncology 06/27/22 Christiano Cardenas, TELEVISION NEWS PHOTOGRAPHER.FONDANT MACHINE OPERATOR [address] [facility] [place] [address] Nurse Practitioner Hematology/Oncology 06/27/22 Umer Dale, RN [address] [place] [address] Specialty Bank Teller Hematology/Oncology 06/27/22 Registered Vascular Technologist (Rvt) Relationship Specialty Start Date End Date Arline Orosco MD PCP - General Family Medicine 06/02/11 Dawna Patrick Urology 02/10/14 Jose Francisco Broussard MD [address] [facility] [place] [address] Physician Hematology/Oncology 06/27/22 Christiano Cardenas, TELEVISION NEWS PHOTOGRAPHER.FONDANT MACHINE OPERATOR [address] [facility] [place] [address] Nurse Practitioner Hematology/Oncology 06/27/22 Umer Dale, HITESH [address] [facility] [address] [place], [place] [address] Specialty Bank Teller Hematology/Oncology 06/27/22 Registered Vascular Technologist (Rvt) Relationship Specialty Start Date End Date Arline Orosco MD PCP - General Family Medicine 06/02/11 Dawna Patrick Urology 02/10/14 Jose Francisco Broussard MD [address] [facility] [place] [address] Physician Hematology/Oncology 06/27/22 Christiano Cardenas, TELEVISION NEWS PHOTOGRAPHER.FONDANT MACHINE OPERATOR [address] [facility] [place] [address] Nurse Practitioner Hematology/Oncology 06/27/22 Umer Dale, RN [address] [facility] [place] [address] Specialty Bank Teller Hematology/Oncology 06/27/22 Registered Vascular Technologist (Rvt) Relationship Specialty Start Date End Date Arline Orosco MD PCP - General Family Medicine 06/02/11 Dawna Patrick Urology 02/10/14 Jose Francisco Broussard MD [address] [facility] [place] [address] Physician Hematology/Oncology 06/27/22 Christiano Cardenas, TELEVISION NEWS PHOTOGRAPHER.FONDANT MACHINE OPERATOR [address] [facility] [place] [address] Nurse Practitioner Hematology/Oncology 06/27/22 Umer Dale, RN [address] [facility] [place] [address] Specialty Bank Teller Hematology/Oncology 06/27/22 Team Status: Active Member Role Status Carola Orosco MD Primary Care Provider Active Team Status: Inactive Member Role Status Carola Orosco MD Primary Care Provider Active Clarence Gregory MD Attending Provider Active Registered Vascular Technologist (Rvt) Relationship Specialty Start Date End Date Arline Orosco MD PCP - General Family Medicine 06/02/11 Dawna Patrick Urology 02/10/14 Jose Francisco Broussard MD [address] [facility] [place] [address] Physician Hematology/Oncology 06/27/22 Christiano Cardenas, TELEVISION NEWS PHOTOGRAPHER.FONDANT MACHINE OPERATOR [address] [facility] [place] [address] Nurse Practitioner Hematology/Oncology 06/27/22 Umer Dale, RN [address] [facility] [place] [address] Specialty Bank Teller Hematology/Oncology 06/27/22 Registered Vascular Technologist (Rvt) Relationship Specialty Start Date End Date Arline Orosco MD PCP - General Family Medicine 06/02/11 Dawna Patrick Urology 02/10/14 Jose Francisco Broussard MD [address] [place] [address] Physician Hematology/Oncology 06/27/22 Christiano Cardenas, [place].FONDANT MACHINE OPERATOR [address] [place] [address] Nurse Practitioner Hematology/Oncology 06/27/22 Umer Dale RN [address] [facility] [place] [address] Specialty Bank Teller Hematology/Oncology 06/27/22 Registered Vascular Technologist (Rvt) Relationship Specialty Start Date End Date Arline Orosco MD PCP - General Family Medicine 06/02/11 Dawna Patrick Urology 02/10/14 Jose Francisco Broussard MD [address] [place] [address] Physician Hematology/Oncology 06/27/22 Christiano Cardenas, CAMILLE.FONDANT MACHINE OPERATOR [address] [place] [address] Nurse Practitioner Hematology/Oncology 06/27/22 Umer Dale RN [address] [facility] [place] [address] Specialty Bank Teller Hematology/Oncology 06/27/22 Registered Vascular Technologist (Rvt) Relationship Specialty Start Date End Date Arline Orosco MD PCP - General Family Medicine 06/02/11 Dawna Patrick Urology 02/10/14 Jose Francisco Broussard MD [address] [facility] [place] [address] Physician Hematology/Oncology 06/27/22 Christiano Cardenas, CAMILLE.FONDANT MACHINE OPERATOR [address] [facility] [place] [address] Nurse Practitioner Hematology/Oncology 06/27/22 Umer Dale, RN [address] [facility] [place] [address] Specialty Bank Teller Hematology/Oncology 06/27/22 Registered Vascular Technologist (Rvt) Relationship Specialty Start Date End Date Arline Orosco MD PCP - General Family Medicine 06/02/11 Dawna Patrick Urology 02/10/14 Jose Francisco Broussard MD [address] [facility] [place] [address] Physician Hematology/Oncology 06/27/22 Christiano Cardenas, CAMILLE.FONDANT MACHINE OPERATOR [address] [facility] [place] [address] Nurse Practitioner Hematology/Oncology 06/27/22 Umer Dale RN [address] [facility] [place] [address] Specialty Bank Teller Hematology/Oncology 06/27/22 Registered Vascular Technologist (Rvt) Relationship Specialty Start Date End Date Arline Orosco MD PCP - General Family Medicine 06/02/11 Dawna Patrick Urology 02/10/14 Jose Francisco Broussard MD [address] [facility] [place] [address] Physician Hematology/Oncology 06/27/22 Christiano Cardenas, CAMILLE.FONDANT MACHINE OPERATOR [address] [facility] [place] [address] Nurse Practitioner Hematology/Oncology 06/27/22 Umer Dale RN [address] [facility] [place] [address] Specialty Bank Teller Hematology/Oncology 06/27/22 Registered Vascular Technologist (Rvt) Relationship Specialty Start Date End Date Arline Orosco MD PCP - General Family Medicine 06/02/11 Dawna Patrick Urology 02/10/14 Jose Francisco Broussard MD [address] [facility] [place] [address] Physician Hematology/Oncology 06/27/22 Christiano Cardenas APRN.FONDANT MACHINE OPERATOR [address] [facility] [place] [address] Nurse Practitioner Hematology/Oncology 06/27/22 Umer Dale, HITESH [address] [facility] [place] [address] Specialty Bank Teller Hematology/Oncology 06/27/22 Registered Vascular Technologist (Rvt) Relationship Specialty Start Date End Date Arline Orosco MD PCP - General Family Medicine 06/02/11 Dawna Patrick Urology 02/10/14 Jose Francisco Broussard MD [address] [place] [address] [place] [address] Physician Hematology/Oncology 06/27/22 Christiano Cardenas, CAMILLE.FONDANT MACHINE OPERATOR [address] [facility] [place] [address] Nurse Practitioner Hematology/Oncology 06/27/22 Umer Dale, HITESH [address] [facility] [place] [address] Specialty Bank Teller Hematology/Oncology 06/27/22 Registered Vascular Technologist (Rvt) Relationship Specialty Start Date End Date Arline Orosco MD PCP - General Family Medicine 06/02/11 Dawna Patrick Urology 02/10/14 Jose Francisco Broussard MD [address] [place] [address] [place] [address] Physician Hematology/Oncology 06/27/22 Christiano Cardenas, CAMILLE.FONDANT MACHINE OPERATOR [address] [facility] [place] [address] Nurse Practitioner Hematology/Oncology 06/27/22 Umer Dale, RN [address] [facility] [place] [address] Specialty Bank Teller Hematology/Oncology 06/27/22 Registered Vascular Technologist (Rvt) Relationship Specialty Start Date End Date Arline Orosco MD PCP - General Family Medicine 06/02/11 Dawna Patrick Urology 02/10/14 Jose Francisco Broussard MD [address] [facility] [place] [address] Physician Hematology/Oncology 06/27/22 Christiano Cardenas APRN.FONDANT MACHINE OPERATOR [address] [facility] [place] [address] Nurse Practitioner Hematology/Oncology 06/27/22 Umer Dale, RN [address] [facility] [place] [address] Specialty Bank Teller Hematology/Oncology 06/27/22 Registered Vascular Technologist (Rvt) Relationship Specialty Start Date End Date Arline Orosco MD [address] [place] [address] PCP - General 06/05/13 Registered Vascular Technologist (Rvt) Relationship Specialty Start Date End Date Arline Orosco MD PCP - General Family Medicine 06/02/11 Dawna Patrick Urology 02/10/14 Jose Francisco Broussard MD [address] [facility] [place] [address] Physician Hematology/Oncology 06/27/22 Christiano Cardenas APRN.FONDANT MACHINE OPERATOR [address] [facility] [place] [address] Nurse Practitioner Hematology/Oncology 06/27/22 Umer Dale, HITESH [address] [facility] [place] [address] Specialty Bank Teller Hematology/Oncology 06/27/22 Registered Vascular Technologist (Rvt) Relationship Specialty Start Date End Date Arline Orosco MD PCP - General Family Medicine 06/02/11 Dawna Patrick Urology 02/10/14 Jose Francisco Broussard MD [address] [facility] [place] [address] Physician Hematology/Oncology 06/27/22 Christiano Cardenas, TELEVISION NEWS PHOTOGRAPHER.FONDANT MACHINE OPERATOR [address] [facility] [place] [address] Nurse Practitioner Hematology/Oncology 06/27/22 Umer Dale, HITESH [address] [facility] [place] [address] Specialty Bank Teller Hematology/Oncology 06/27/22 Registered Vascular Technologist (Rvt) Relationship Specialty Start Date End Date Arline Orosco MD PCP - General Family Medicine 06/02/11 Dawna Patrick Urology 02/10/14 Jose Francisco Broussard MD [address] [place] [address] [place] [address] Physician Hematology/Oncology 06/27/22 Christiano Cardenas APRN.FONDANT MACHINE OPERATOR [address] [facility] [place] [address] Nurse Practitioner Hematology/Oncology 06/27/22 Umer Dale, HITESH [address] [facility] [place] [address] Specialty Bank Teller Hematology/Oncology 06/27/22 Registered Vascular Technologist (Rvt) Relationship Specialty Start Date End Date Arline Orosco MD PCP - General Family Medicine 06/02/11 Dawna Patrick Urology 02/10/14 Jose Francisco Broussard MD [address] [place] [address] [place] [address] Physician Hematology/Oncology 06/27/22 Christiano Cardenas, TELEVISION NEWS PHOTOGRAPHER.FONDANT MACHINE OPERATOR [address] [place] [address] [place] [address] Nurse Practitioner Hematology/Oncology 06/27/22 Umer Dale, HITESH [address] [facility] [place] [address] Specialty Bank Teller Hematology/Oncology 06/27/22 Registered Vascular Technologist (Rvt) Relationship Specialty Start Date End Date Arline Orosco MD PCP - General Family Medicine 06/02/11 Dawna Patrick Urology 02/10/14 Jose Francisco Broussard MD [address] [facility] [place] [address] Physician Hematology/Oncology 06/27/22 Christinao Cardenas APRN.FONDANT MACHINE OPERATOR [address] [facility] [place] [address] Nurse Practitioner Hematology/Oncology 06/27/22 Umer Dale, RN [address] [facility] [place] [address] Specialty Bank Teller Hematology/Oncology 06/27/22 Team Status: Inactive Member Role Status Dates Arline Orosco MD Primary Care Provider Active Start: November 14, 2023 End: November 14, 2023 Clarence Gregory MD Attending Provider Active S tart: November 14, 2023 End: November 14, 2023 Registered Vascular Technologist (Rvt) Relationship Specialty Start Date End Date Arline Orosco MD PCP - General Family Medicine 06/02/11 Dawna Patrick Urology 02/10/14 Jose Francisco Broussard MD [address] [facility] [place] [address] Physician Hematology/Oncology 06/27/22 Christiano Cardenas, CAMILLE.FONDANT MACHINE OPERATOR [address] [facility] [place] [address] Nurse Practitioner Hematology/Oncology 06/27/22 Umer Dale, HITESH [address] [facility] [place] [address] Specialty Bank Teller Hematology/Oncology 06/27/22 Registered Vascular Technologist (Rvt) Relationship Specialty Start Date End Date Arline [place] MD PCP - General Family Medicine 06/02/11 Dawna Patrick Urology 02/10/14 Jose Francisco Broussard MD [address] [facility] [place] [address] Physician Hematology/Oncology 06/27/22 Christiano Cardenas APRN.[facility] [address] [facility] [place] [address] Nurse Practitioner Hematology/Oncology 06/27/22 Umer Dale, HITESH [address] [facility] [place] [address] Specialty Bank Teller Hematology/Oncology 06/27/22 Registered Vascular Technologist (Rvt) Relationship Specialty Start Date End Date Arline [place] MD PCP - General Family Medicine 06/02/11 Dawna Patrick Urology 02/10/14 Registered Vascular Technologist (Rvt) Relationship Specialty Start Date End Date Arline [place] MD PCP - General Family Medicine 06/02/11 Dawna Patrick Urology 02/10/14 Jose Francisco Broussard MD [address] [facility] [place] [address] Physician Hematology/Oncology 06/27/22 Christiano Cardenas, TELEVISION NEWS PHOTOGRAPHER.FONDANT MACHINE OPERATOR [address] [facility] [place] [address] Nurse Practitioner Hematology/Oncology 06/27/22 Umer Dale, HITESH [address] [facility] [place] [address] Specialty Bank Teller Hematology/Oncology 06/27/22 Registered Vascular Technologist (Rvt) Relationship Specialty Start Date End Date Arline [place] MD PCP - General Family Medicine 06/02/11 Dawna Patrick Urology 02/10/14 Jose Francisco Broussard MD [address] [facility] [place] [address] Physician Hematology/Oncology 06/27/22 Christiano Cardenas, TELEVISION NEWS PHOTOGRAPHER.FONDANT MACHINE OPERATOR [address] [facility] [place] [address] Nurse Practitioner Hematology/Oncology 06/27/22 Umer Dale, HITESH [address] [facility] [place] [address] Specialty Bank Teller Hematology/Oncology 06/27/22 Registered Vascular Technologist (Rvt) Relationship Specialty Start Date End Date Arline Orosco MD PCP - General Family Medicine 06/02/11 Dawna Patrick Urology 02/10/14 Jose Francisco Broussard MD [address] [place] [address] Physician Hematology/Oncology 06/27/22 Christiano Cardenas, TELEVISION NEWS PHOTOGRAPHER.FONDANT MACHINE OPERATOR [address] [place] [address] Nurse Practitioner Hematology/Oncology 06/27/22 Umer Dale, HITESH [address] [place] [address] Specialty Bank Teller Hematology/Oncology 06/27/22 Registered Vascular Technologist (Rvt) Relationship Specialty Start Date End Date Arline Orosco MD PCP - General Family Medicine 06/02/11 Dawna Patrick Urology 02/10/14 Jose Francisco Broussard MD [address] [place] [address] Physician Hematology/Oncology 06/27/22 Christiano Cardenas, TELEVISION NEWS PHOTOGRAPHER.FONDANT MACHINE OPERATOR [address] [place] [address] Nurse Practitioner Hematology/Oncology 06/27/22 Umer Dale, HITESH [address] [place] [address] Specialty Bank Teller Hematology/Oncology 06/27/22 Registered Vascular Technologist (Rvt) Relationship Specialty Start Date End Date Arline Orosco MD [address] [place] [id number] PCP - General Family Medicine 04/26/24 Registered Vascular Technologist (Rvt) Relationship Specialty Start Date End Date Arline Orosco MD [address] [place] [address] PCP - General Family Medicine 04/26/24 Goals (unrecognized section and content) Goals may be documented in a n alternate sectionNot on filedocumented as of this encounterGoals may be documented in an alternate section Inactive Administered Medications - up to 3 [...] BE BASED ON THE PRIMARY CLINICAL RECORDS. [employer] provides no warranty or guarantee of the accuracy or completeness of information in this document.
--- NOTE | 2024-05-15 15:07 | XR_ITS ---
[address] [address] Patient Name: JM BARROW MRN: [id number] date: 1945 Sex: M Assigned Patient Location: ER Current Patient Location: ER Accession/Order Number: [id number] Exam Date: 05/15/2024 15:15 Report Date: 05/15/2024 16:02 At the request of: DANIEL KEVIN Procedure: XR chest 1V EXAM: XR chest 1V INDICATION: Shortness of breath. COMPARISON: Chest x-ray 05/16/2023. TECHNIQUE: Single frontal view of the chest FINDINGS: Normal cardiomediastinal contours. No acute infiltrative process. No pleural effusion or pneumothorax. No acute osseous abnormality. XR/XR chest 1V IMPRESSION: No acute cardiopulmonary process. Electronically authenticated by: IRENA ESCALERA Date: 05/15/2024 16:02
--- NOTE | 2024-05-15 15:07 | ECG_ITS ---
[facility] Test Date: 2024-05-15 Pat Name: JM BARROW Department: Room: - Gender: Male Top Cutter: : 1945 Requested By: ARLINE OROSCO Order Number: [id number] Reading MD: TANIA MARTELL Measurements Intervals [place] Rate: 66 P: -30 MN: 206 QRS: 268 QRSD: 140 T: 42 QT: 444 QTc: 457 Interpretive Statements 1100 Sinus rhythm 2450 New Right bundle branch block 3524 Possible lateral myocardial infarction, age undetermined 7100 Abnormal right axis deviation 9150 abnormal ECG Electronically Signed On 05-18-2024 8:07:18 EST by TANIA MARTELL
--- NOTE | 2024-05-15 15:09 | ED.GENADUL1 ---
HPI HPI - General Adult General Chief complaint: Shortness of Breath/Dyspnea Stated complaint: FLU LIKE SYMPTOMS Time Seen by Provider: 05/15/24 15:04 Source: patient Mode of arrival: Wheelchair Limitations: no limitations History of Present Illness HPI narrative: Patient is a 78-year-old male with a history of COPD who presents to the emergency department for a 2 to 3-day history of shortness of breath, diarrhea, body aches and generalized weakness. He states his just got out of the hospital for the same. He states she was diagnosed with flu . Patient has not had any fevers, he has had cough and occasional chest discomfort with shortness of breath. No hemoptysis or significant sputum production. He states he has had diarrhea and diffuse bodyaches as well with no abdominal pain. He has had nausea without vomiting. No medications taken prior to arrival. He has no active chest pain in the ER. Related Data Home Medications ?Medication ?Instructions ?Recorded ?Confirmed albuterol sulfate 90 mcg/actuation 2 puff inhalation Q6H 05/15/24 05/15/24 aerosol inhaler bicalutamide 50 mg tablet 50 mg PO DAILY 05/15/24 05/15/24 clonidine HCl 0.1 mg tablet 0.1 mg PO PRN hypertensive 05/15/24 emergency doxazosin 2 mg tablet 6 mg PO DAILY PRN hypertension 05/15/24 05/15/24 fluticasone furoate 100 1 inh inhalation Q24H 05/15/24 05/15/24 mcg-vilanterol 25 mcg/dose inhalation powder (Breo Ellipta) hydrochlorothiazide 25 mg tablet 25 mg PO DAILY 05/15/24 05/15/24 irbesartan 150 mg tablet 150 mg PO DAILY 05/15/24 05/15/24 metoprolol succinate 25 mg 50 mg PO DAILY 05/15/24 05/15/24 tablet,extended release 24 hr mupirocin 2 % topical ointment 1 applic topical BID 05/15/24 05/15/24 simvastatin 10 mg tablet 10 mg PO DAILY 05/15/24 05/15/24 tamsulosin 0.4 mg capsule 0.8 mg PO Q24H 05/15/24 05/15/24 tizanidine 4 mg tablet 4 mg PO PRN muscle spasticity 05/15/24 trazodone 50 mg tablet 75 mg PO DAILY 05/15/24 05/15/24 Allergies Allergy/AdvReac Type Severity Reaction Status Date / Time No Known Drug Allergies Allergy Verified 05/15/24 14:44 Opioid HPI Opioid Management Most Recent Opioid Data: No Data to Display Review of Systems ROS Constitutional Reports: chills; Denies: fever Ears, nose, mouth, and throat Denies: throat pain or nasal congestion Cardiovascular Reports: chest pain Respiratory Reports: shortness of breath and cough; Denies: coughing up blood Gastrointestinal Reports: nausea and diarrhea; Denies: abdominal pain or vomiting Integumentary/Breast Denies: rash Neurological Denies: numbness in extremities or weakness in extremities Hematologic/Lymphatic Denies: easy bruising or easy bleeding PFSH PFS Social History Smoking status: Heavy tobacco smoker Little interest or pleasure in doing things: not at all Feeling down, depressed, or hopeless: not at all Exam Narrative Exam Narrative: Gen.: Awake, alert, in no distress Head: Normocephalic, atraumatic ENT: Moist mucous membranes Respiratory: No respiratory distress, lungs clear bilaterally Cardio: Regular rate and rhythm Gastrointestinal: Abdomen is soft, nondistended and nontender to palpation Extremities: Moves extremities equally Psych: Normal mood and affect Neuro: No focal neuro deficit Skin: Warm, dry, intact Constitutional Vital Signs, click to edit/add: Last Vital Signs Temp 97.9 F 05/15/24 14:39 Pulse 64 05/15/24 17:40 Resp 21 H 05/15/24 15:40 BP 97/53 05/15/24 14:39 Pulse Ox 92 L 05/15/24 17:40 O2 Del Method Room Air 05/15/24 14:39 Course Vital Signs Vital signs: Vital Signs Temperature 97.9 F 05/15/24 14:39 Pulse Rate 60 05/15/24 14:39 Respiratory Rate 20 05/15/24 14:39 Blood Pressure 97/53 05/15/24 14:39 Pulse Oximetry 91 L 05/15/24 14:39 Oxygen Delivery Method Room Air 05/15/24 14:39 Temperature 97.9 F 05/15/24 14:39 Pulse Rate 64 05/15/24 17:40 Respiratory Rate 21 H 05/15/24 15:40 Blood Pressure 97/53 05/15/24 14:39 Pulse Oximetry 92 L 05/15/24 17:40 Oxygen Delivery Method Room Air 05/15/24 14:39 Medical Decision Making MDM Narrative Medical decision making narrative: Patient treated with IV fluids for mild dehydration noted on labs. Chest x-ray is unremarkable and patient is negative for COVID, influenza and RSV. He remains borderline hypoxic in the ER throughout his stay in the emergency department so he was placed on 2 L by nasal cannula. Oxygen levels dropped to 88 to 90% on room air. IV Solu-Medrol given as well. Patient will be admitted for dehydration as well as likely COPD exacerbation secondary to upper respiratory infection. IV Rocephin and azithromycin given for antibiotic coverage. Stable at time of admission. SHARED APC VISIT, PHYSICIAN ATTESTATION: [id number] I performed a substantive part of the MDM during the patient?s E/M visit. I personally evaluated and examined the patient. I personally made or approved the documented management plan and acknowledge its risk of complications. Medical Records Medical records reviewed: Yes I reviewed the patient's medical records Lab Data Lab results reviewed: Yes I reviewed the patient's lab results Labs: Lab Results 05/15/24 05/15/24 Range/Units 14:55 15:26 WBC 9.8 (4.0-11.0) 10^3/uL RBC 4.71 (4.70-6.10) 10^6/uL Hgb 14.9 (14.0-18.0) g/dL Hct 43.5 (42.0-54.0) % MCV 92.4 (80.0-94.0) fL MCH 31.6 (25.9-34.0) pg MCHC 34.3 (29.9-35.2) g/dL RDW 12.1 (11.0-15.0) % Plt Count 178 (150-450) 10^3/uL MPV 9.9 (9.5-13.5) fL Neut % (Auto) 81.6 H (43.0-75.0) % Lymph % (Auto) 7.7 L (20.5-60.0) % [facility] % (Auto) 10.0 (1.7-12.0) % Eos % (Auto) 0.0 L (0.9-7.0) % Baso % (Auto) 0.3 (0.2-2.0) % Neut # (Auto) 8.0 H (1.4-6.5) 10^3/uL Lymph # (Auto) 0.8 L (1.2-3.8) 10^3/uL [facility] # (Auto) 1.0 H (0.3-0.8) 10^3/uL Eos # (Auto) 0.0 (0.0-0.7) 10^3/uL Baso # (Auto) 0.0 (0.0-0.1) 10^3/uL Abs Immat Gran (auto) 0.04 H (0.00-0.03) 10^3/uL Imm/Tot Granulo (auto) 0.4 (0.0-0.5) % PT 10.9 (9.0-11.6) sec INR 1.03 VBG pH 7.359 (7.330-7.430) VBG pCO2 45.8 (40.0-52.0) mmHg Sodium 139 (136-145) mmol/L Potassium 3.6 (3.5-5.1) mmol/L Chloride 99 (98-107) mmol/L Carbon Dioxide 29.3 (21.0-32.0) mmol/L Anion Gap 14.3 BUN 39.0 H (7.0-18.0) mg/dL Creatinine 1.86 H (0.70-1.30) mg/dL Est GFR ( Amer) 43 L (>=60 mL/min/1.73m^2) Est GFR (Non-Af Amer) 35 L (>=60 mL/min/1.73m^2) BUN/Creatinine Ratio 21.0 Glucose 101 (74-106) mg/dL Calcium 9.5 (8.5-10.1) mg/dL Total Bilirubin 0.9 (0.2-1.0) mg/dL AST 28 (15-37) U/L ALT 23 (16-63) U/L Alkaline Phosphatase 51 (46-116) U/L Troponin I High Sens 19.5 (4.0-76.1) pg/mL NT-Pro-B Natriuret Pep 1155.0 (<=1800.0) pg/mL Total Protein 7.5 (6.4-8.2) g/dL Albumin 4.2 (3.4-5.0) g/dL Globulin 3.3 g/dL Albumin/Globulin Ratio 1.3 Influenza Type A Ag Negative Influenza Type B Ag Negative RSV Antigen Not detected (NOT DETECTE) SARS-CoV-2 Ag (CV2AG) Negative (NEGATIVE) Imaging Data Chest x-ray: Attestation: I have reviewed the pertinent imaging results. Radiologist's impression: ITS Impressions Chest X-Ray 05/15/24 15:07 IMPRESSION: No acute cardiopulmonary process. Electronically authenticated by: IRENA ESCALERA Date: 05/15/2024 16:02 ECG Data Attestation: I personally reviewed and interpreted this ECG as follows: (Normal sinus rhythm at a rate of 66, right bundle branch block, no acute ST elevation or ectopy. EKG reviewed by attending physician) Discharge Plan Discharge Chief Complaint: Shortness of Breath/Dyspnea Clinical Impression: Acute infective exacerbation of chronic obstructive airway disease, Flu-like symptoms, Diarrhea, Hypoxia Patient Disposition: Admitted as Observation Time of Disposition Decision: 18:07 Prescriptions / Home Meds: No Action albuterol sulfate 90 mcg/actuation HFA aerosol inhaler 2 puff INHALATION Q6H bicalutamide 50 mg tablet 50 mg PO DAILY clonidine HCl 0.1 mg tablet 0.1 mg PO PRN (Reason: hypertensive emergency) Rx Instructions: Syst. >160 doxazosin 2 mg tablet 6 mg PO DAILY PRN (Reason: hypertension) fluticasone furoate-vilanterol [Breo Ellipta] 100-25 mcg/dose blister with device 1 inh INHALATION Q24H hydrochlorothiazide 25 mg tablet 25 mg PO DAILY irbesartan 150 mg tablet 150 mg PO DAILY metoprolol succinate 25 mg tablet extended release 24 hr 50 mg PO DAILY mupirocin 2 % ointment 1 applic TOPICAL BID simvastatin 10 mg tablet 10 mg PO DAILY tamsulosin 0.4 mg capsule 0.8 mg PO Q24H tizanidine 4 mg tablet 4 mg PO PRN (Reason: muscle spasticity) trazodone 50 mg tablet 75 mg PO DAILY Print Language: Portuguese Referrals: Graeme Read MD [Primary Care Provider] - 1 week
[2024-05-15 16:07] LABS: Basophils Percent Auto 0.3 % (0.2-2.0); Hematocrit 43.5 % (42.0-54.0); Hemoglobin 14.9 g/dL (14.0-18.0); Immature Granulocytes Abs Auto 0.04 10^3/uL (0.00-0.03); Immature Granulocytes Pct Auto 0.4 % (0.0-0.5); Lymphocytes Absolute Auto 0.8 10^3/uL (1.2-3.8); Lymphocytes Percent Auto 7.7 % (20.5-60.0); Mean Corpuscular HGB Conc 34.3 g/dL (29.9-35.2); Mean Corpuscular Hemoglobin 31.6 pg (25.9-34.0); Mean Corpuscular Volume 92.4 fL (80.0-94.0); Mean Platelet Volume 9.9 fL (9.5-13.5); Neutrophils Percent Auto 81.6 % (43.0-75.0); Platelet Count 178 10^3/uL (150-450); Red Blood Count 4.71 10^6/uL (4.70-6.10); Red Cell Distribution Width 12.1 % (11.0-15.0); White Blood Count 9.8 10^3/uL (4.0-11.0)
[2024-05-15 16:17] LABS: PCO2 VBG 45.8 mmHg (40.0-52.0); pH VBG 7.359 (7.330-7.430)
[2024-05-15 16:18] LABS: Influenza Virus A Antigen Negative; Influenza Virus B Antigen Negative; Internal Control Within Normal Limits; Respiratory Syncytial Virus Not Detected (NOT DETECTE); SARS-CoV-2 Ag NEGATIVE (NEGATIVE)
[2024-05-15 16:28] LABS: INR 1.03; Prothrombin Time 10.9 sec (9.0-11.6)
[2024-05-15 16:43] LABS: Alanine Aminotransferase 23 U/L (16-63); Albumin Globulin Ratio 1.3; Albumin Level 4.2 g/dL (3.4-5.0); Alkaline Phosphatase 51 U/L (46-116); Anion Gap 14.3; Aspartate Amino Transferase 28 U/L (15-37); Bilirubin Total 0.9 mg/dL (0.2-1.0); Calcium 9.5 mg/dL (8.5-10.1); Carbon Dioxide 29.3 mmol/L (21.0-32.0); Chloride 99 mmol/L (98-107); Estimated GFR (African America 43 (>=60 mL/min/1.73m^2); Estimated GFR (Non-African Ame 35 (>=60 mL/min/1.73m^2); Globulin 3.3 g/dL; Glucose 101 mg/dL (74-106); Potassium 3.6 mmol/L (3.5-5.1); Sodium 139 mmol/L (136-145); Total Protein 7.5 g/dL (6.4-8.2); Troponin I High Sensitivity 19.5 pg/mL (4.0-76.1)
[2024-05-15] MEDS: METHYLPREDNISOLONE SOD SUCC PF 125 MG/2 ML VIAL IVP (17:26)
[2024-05-15] MEDS: 0.9 % SODIUM CHLORIDE 1,000 ML 1000 ML IV (17:26)
[2024-05-15] MEDS: CEFTRIAXONE 1,000 MG in 0.9 % SODIUM CHLORIDE 50 ML 100 MG IV (18:21)
[2024-05-15 19:06] LABS: C. Difficile PCR NEGATIVE
[2024-05-15] MEDS: AZITHROMYCIN 500 MG in 0.9 % SODIUM CHLORIDE 250 ML 250 MG IV (19:06)
--- OUTSIDE RECORDS SUMMARY | 2024-05-15 19:15 | XMS_ITS | CCD ---
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 Arline Orosco Primary Care Unavail able Baldo Gifford Attending Unavailable Baldo Gifford Referring Unavailable Dr. Arline Orosco Primary Care Unavail able Baldo Gifford Attending Unavailable Etta RN, Umer Unavailable UI, BARB C Referring Unavailable ARLINE OROSCO Primary Care Unavailable Arline Orosco MD Primary Care Provider [phone] Arline Orosco MD Primary Care Provider [phone] BALDO GIFFORD Attending Unavailable ARLINE OROSCO Primary Care Unavailable MD Arline Orosco Primary Care Provider [phone] MD Clarence Gregory Attending Provider [phone] Hoy, Arline M Primary Care Unavailable Clarence [...] Unavailable Arline Orosco MD Primary Care Provider [phone] ONEIL CASTRO Attending Unavailable Allergies Allergy Classification Reported Allergen(s) Allergy Type Date of Onset Reaction(s) Facility (20 sources) Chlorhexidine; Translations: [CHLORHEXIDINE] Drug Allergy 4 [facility] (20 sources) hibaclens [Other] Propensity to adverse reactions 2 [facility] Work Phone: (1 source) Chlorhexidine Drug Allergy 4 [facility] Repository (3 sources) OTHER; Translations: [OTHER] Propensity to adverse reactions (disorder) 2 [facility] Other [place] Repository (3 sources) Chlorhexidine; Translations: [CHLORHEXIDINE GLUCONATE] Drug Allergy 6 [facility] (1 source) Chlorhexidine Drug Allergy 4 [facility] Repository Medications Current Medications Medication Drug [...] 3 HOURS *6 TIMES A DAY* NEEDED [id number] actuat albuterol 0.09 mg/actuat metered dose [...] 1 capsule by mo [facility] once daily Tamsulosin (Flomax) 0.4 mg Capsule Active 0.4 MG PO Daily September 14, 2018 12:00am take 1 capsule by [facility] every twenty-four hours in the morning tamsulosin (Flomax) 0.4 MG 24 hr capsule Take 0.4 mg by mouth in the morning. Active take 2 capsules by [facility] once daily at bedtime Tamsulosin HCl - [...] Comment on above: Take 400 Units by [facility] once daily. 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 Normal [facility] CNOVSPon 02-15-2024 CNOVSP Visit (SP) Office ([place] ME[place]IAS) JM BARROW ([id number]) 1945 M Date Time Provider Department 02/15/24 [...] INSERT LENS,EX Bilateral 06/2019 Dr. Alfa [place], [place] TONSILLECTOMY HX FAMILY HISTORY: FAMILY HISTORY Problem [...] Normal [facility] ([id number]) 1945 M Date Time Provider Department 02/15/24 Ace GUZMAN During your visit today, we recorded the following information about you: Lam Mills 02/15/2024 2:46 PM Signed This form is used for MAIN CAMPUS APPOINTMENTS ONLY. Is this request for a Main [place] PET scan appointment? 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 Other Contact: [facility] PET to be done in [place]. Route to [place] for scheduling Requesting Staff Fox Guzman Area Code + Phone/Pager: [phone] PET Orders (A delay in scheduling will [...] Status:Closed by LAM MILLS on 02/15/24 Normal [facility] CBC W Auto Differential pane l (Bld)on 02-12-2024 Basophils (Bld) [#/Vol] 10*3/uL Normal <0.11 [facility] Comment on above: Order Comment: Speci men Type: BLOOD SPECIMEN Ordering Facility: [facility] Address: [address] [place] [address] Performed By: #### 2 4321-2 #### [facility] CLIA [id number] [address] [place] [address]205 Basophils/100 WBC (Bld) 0.3 % Normal [facility] Comment on above: Order Comment: Speci men Type: BLOOD SPECIMEN Ordering Facility: [facility] Address: [address] [place] [address] Performed By: #### 2 4321-2 #### [facility] CLIA [id number] [address] [place] [address] Differential cell count method Nom (Bld) Auto Normal [facility] Comment on above: Order Comment: Speci men Type: BLOOD SPECIMEN Ordering Facility: [facility] Address: [facility] [place] [address] Performed By: #### 2 4321-2 #### [facility] CLIA [id number] [address] [place] [address] Eosinophils (Bld) [#/Vol] 0.41 10*3/uL Normal <0.46 [facility] Comment on above: Order Comment: Speci men Type: BLOOD SPECIMEN Ordering Facility: [facility] Address: [address] [place] [address] Performed By: #### 2 4321-2 #### [facility] CLIA [id number] [address] [place] [address]453 Eosinophils/100 WBC (Bld) 6.5 % Normal [facility] Comment on above: Order Comment: Speci men Type: BLOOD SPECIMEN Ordering Facility: [facility] Address: [address] [place] [address] Performed By: #### 2 4321-2 #### [facility] CLIA [id number] [address] [place] [address]90 Erythrocyte distribution width (RBC) [Ratio] 12.2 % Normal 11.5-15.0 [facility] Comment on above: Order Comment: Speci men Type: BLOOD SPECIMEN Ordering Facility: [facility] Address: [address] [place] [address] Performed By: #### 2 4321-2 #### [facility] CLIA [id number] [address] [place] [address]116 Hematocrit (Bld) [Volume fraction] 40.1 % Normal 39.0-51.0 [facility] Comment on above: Order Comment: Speci men Type: BLOOD SPECIMEN Ordering Facility: [facility] Address: [address] [place] [address] Performed By: #### 2 4321-2 #### [facility] CLIA [id number] [address] [place] [address]284 Hemoglobin (Bld) [Mass/Vol] 13.9 g/dL Normal 13.0-17.0 [facility] Comment on above: Order Comment: Speci men Type: BLOOD SPECIMEN Ordering Facility: [facility] Address: [address] [place] [address] Performed By: #### 2 4321-2 #### [facility] CLIA [id number] [address] [place] [address] Immature granulocytes (Bld) [#/Vol] 10*3/uL Normal <0.10 [facility] Comment on above: Order Comment: Speci men Type: BLOOD SPECIMEN Ordering Facility: [facility] Address: [address] [place] [address] Performed By: #### 2 4321-2 #### [facility] CLIA [id number] [address] [place] [address] Immature granulocytes/100 WBC (Bld) 0.3 % Normal [facility] Comment on above: Order Comment: Speci men Type: BLOOD SPECIMEN Ordering Facility: [facility] Address: [address] [place] [address] Performed By: #### 2 4321-2 #### [facility] CLIA [id number] [address] [place] [address] 42084 Lymphocytes (Bld) [#/Vol] 1.68 10*3/uL Normal 1.00-4.00 [facility] Comment on above: Order Comment: Speci men Type: BLOOD SPECIMEN Ordering Facility: [facility] Address: [address] [place] [address] Performed By: #### 2 4321-2 #### [facility] CLIA [id number] [address] [place] [address]707 Lymphocytes/100 WBC (Bld) 26.8 % Normal [facility] Comment on above: Order Comment: Speci men Type: BLOOD SPECIMEN Ordering Facility: [facility] Address: [address] [place] [address] Performed By: #### 2 4321-2 #### [facility] CLIA [id number] [address] [place] [address] 14772 MCH (RBC) [Entitic mass] 31.7 pg Normal 26.0-34.0 [facility] Comment on above: Order Comment: Speci men Type: BLOOD SPECIMEN Ordering Facility: [facility] Address: [address] [place] [address] Performed By: #### 2 4321-2 #### [facility] CLIA [id number] [address] [place] [address] MCHC (RBC) [Mass/Vol] 34.7 g/dL Normal 30.5-36.0 [facility] Comment on above: Order Comment: Speci men Type: BLOOD SPECIMEN Ordering Facility: [facility] Address: [address] [place] [address] Performed By: #### 2 4321-2 #### [facility] CLIA [id number] [address] [place] [address] 55963 MCV (RBC) [Entitic vol] 91.6 fL Normal 80.0-100.0 [facility] Comment on above: Order Comment: Speci men Type: BLOOD SPECIMEN Ordering Facility: [facility] Address: [address] [place], [place] [address] Performed By: #### 2 4321-2 #### [facility] CLIA [id number] [address] [place] [address]8589 Monocytes (Bld) [#/Vol] 0.62 10*3/uL Normal <0.87 [facility] Comment on above: Order Comment: Speci men Type: BLOOD SPECIMEN Ordering Facility: [facility] Address: [address] [place] [address] Performed By: #### 2 4321-2 #### [facility] CLIA [id number] [address] [place] [address]226 Monocytes/100 WBC (Bld) 9.9 % Normal [facility] Comment on above: Order Comment: Speci men Type: BLOOD SPECIMEN Ordering Facility: [facility] Address: [address] [place] [address] Performed By: #### 2 4321-2 #### [facility] CLIA [id number] [address] [place] [address]048 Neutrophils (Bld) [#/Vol] 3.51 10*3/uL Normal 1.45-7.50 [facility] Comment on above: Order Comment: Speci men Type: BLOOD SPECIMEN Ordering Facility: [facility] Address: [address] [place] [address] Performed By: #### 2 4321-2 #### [facility] CLIA [id number] [address] [place] [address] Neutrophils/100 WBC (Bld) 56.2 % Normal [facility] Comment on above: Order Comment: Speci men Type: BLOOD SPECIMEN Ordering Facility: [facility] Address: [address] [place] [address] Performed By: #### 2 4321-2 #### [facility] CLIA [id number] [address] [place] [address] Nucleated RBC (Bld) [#/Vol] 10*3/uL Normal <0.01 [facility] Comment on above: Order Comment: Speci men Type: BLOOD SPECIMEN Ordering Facility: [facility] Address: [address] [place] [address] Performed By: #### 2 4321-2 #### [facility] CLIA [id number] [address] [place] [address]76 Nucleated RBC/100 WBC (Bld) [Ratio] 0.0 /100 WBC Normal [facility] Comment on above: Order Comment: Speci men Type: BLOOD SPECIMEN Ordering Facility: [facility] Address: [address] [place] [address] Performed By: #### 2 4321-2 #### [facility] CLIA [id number] [address] [place] [address] Platelet mean volume (Bld) [Entitic vol] 9.2 fL Normal 9.0-12.7 [facility] Comment on above: Order Comment: Speci men Type: BLOOD SPECIMEN Ordering Facility: [facility] Address: [address] [place] [address] Performed By: #### 2 4321-2 #### [facility] CLIA [id number] [address] [place] [address] Platelets (Bld) [#/Vol] 185 10*3/uL Normal 150-400 [facility] Comment on above: Order Comment: Speci men Type: BLOOD SPECIMEN Ordering Facility: [facility] Address: [address] [place] [address] Performed By: #### 2 4321-2 #### [facility] CLIA [id number] [address] [place] [address] RBC (Bld) [#/Vol] 4.38 10*6/uL Normal 4.20-6.00 [facility] Comment on above: Order Comment: Speci men Type: BLOOD SPECIMEN Ordering Facility: [facility] Address: [address] [place] [address] Performed By: #### 2 4321-2 #### [facility] CLIA [id number] [address] [place] [address] 47928 WBC (Bld) [#/Vol] 6.26 10*3/uL Normal 3.70-11.00 [facility] Comment on above: Order Comment: Speci men Type: BLOOD SPECIMEN Ordering Facility: [facility] Address: [address] [place] [address] Performed By: #### 2 4321-2 #### [facility] CLIA [id number] [address] [place] [address] 58563 Comprehensive metabolic 2000 panelon 02-12-2024 Albumin [Mass/Vol] 4.4 g/dL Normal 3.9-4.9 [facility] Comment on above: Order Comment: Speci men Type: BLOOD SPECIMENOrdering Facility: [facility] Address: [address] [place] [address] Performed By: #### 2 4323-8 ####[facility] [id number] [place] [address] ALP [Catalytic activity/Vol] 52 U/L Normal 38-113 [facility] Comment on above: Order Comment: Speci men Type: BLOOD SPECIMENOrdering Facility: [facility] Address: [address] [place] [address] Performed By: #### 2 4323-8 ####[facility] [id number] [place] [address] ALT [Catalytic activity/Vol] 9 U/L Low 10-54 [facility] Comment on above: Order Comment: Speci men Type: BLOOD SPECIMENOrdering Facility: [facility] Address: [address] [place] [address] Performed By: #### 2 4323-8 ####[facility] [id number] [place] [address] Anion gap [Moles/Vol] 10 mmol/L Normal 8-15 [facility] Comment on above: Order Comment: Speci men Type: BLOOD SPECIMENOrdering Facility: [facility] Address: [address] [place] [address] Performed By: #### 2 4323-8 ####[facility] [id number] [place] [address] AST [Catalytic activity/Vol] 15 U/L Normal 14-40 [facility] Comment on above: Order Comment: Speci men Type: BLOOD SPECIMENOrdering Facility: [facility] Address: [address] [place] [address] Performed By: #### 2 4323-8 ####[facility] [id number] [place] [address] Bilirubin [Mass/Vol] 0.8 mg/dL Normal 0.2-1.3 [facility] Comment on above: Order Comment: Speci men Type: BLOOD SPECIMENOrdering Facility: [facility] Address: [address] [place], [place] [address] Performed By: #### 2 4323-8 ####[facility] [id number] [place] [address] Calcium [Mass/Vol] 10.4 mg/dL High 8.5-10.2 [facility] Comment on above: Order Comment: Speci men Type: BLOOD SPECIMENOrdering Facility: [facility] Address: [address] [place] [address] Performed By: #### 2 4323-8 ####[facility] [id number] [place] [address] Chloride [Moles/Vol] 106 mmol/L Normal 98-107 [facility] Comment on above: Order Comment: Speci men Type: BLOOD SPECIMENOrdering Facility: [facility] Address: [address] [place] [address] Performed By: #### 2 4323-8 ####[facility] [id number] [place] [address] CO2 [Moles/Vol] 28 mmol/L Normal 22-30 [facility] Comment on above: Order Comment: Speci men Type: BLOOD SPECIMENOrdering Facility: [facility] Address: [address] [place] [address] Performed By: #### 2 4323-8 ####[facility] [id number] [place] [address] Creatinine [Mass/Vol] 1.04 mg/dL Normal 0.73-1.22 [facility] Comment on above: Order Comment: Speci men Type: BLOOD SPECIMENOrdering Facility: [facility] Address: [address] [place] [address] Performed By: #### 2 4323-8 ####[facility] [id number] [place] [address] Creatinine and Glomerular filtration rate.predicted panel (S/P/Bld) 74 mL/min/1.73m??? Normal >=60 [facility] Comment on above: Order Comment: Speci men Type: BLOOD SPECIMENOrdering Facility: [facility] Address: [address] [place] [address] Result Comment: Jessica mated Glomerular Filtration Rate [...] actual GFR. Performed By: #### 2 4323-8 ####[facility] [id number] [place] [address] Glucose [Mass/Vol] 102 mg/dL High 74-99 [facility] Comment on above: Order Comment: Aroldo rahman Type: BLOOD SPECIMENOrdering Facility: [facility] Address: [address] [place] [address] Result Comment: The [place] [employer] (ADA) provides guidance for [...] Standards of Medical Care in Diabetes 2016, [place] [employer]. Diabetes Care. 2016.39(Suppl 1). Performed By: #### 2 4323-8 ####[facility] [id number] [place] [address] Potassium [Moles/Vol] 4.3 mmol/L Normal 3.7-5.1 [facility] Comment on above: Order Comment: Aroldo rahman Type: BLOOD SPECIMENOrdering Facility: [facility] Address: [address] [place] [address] Performed By: #### 2 4323-8 ####[facility] [id number] [place] [address] Protein [Mass/Vol] 7.3 g/dL Normal 6.3-8.0 [facility] Comment on above: Order Comment: Aroldo rahman Type: BLOOD SPECIMENOrdering Facility: [facility] Address: [address] [place] [address] Performed By: #### 2 4323-8 ####[facility] [id number] [place] [address] Sodium [Moles/Vol] 144 mmol/L Normal 136-144 [facility] Comment on above: Order Comment: Speci men Type: BLOOD SPECIMENOrdering Facility: [facility] Address: [address] [place] [address] Performed By: #### 2 4323-8 ####[facility] [id number] [place] [address] Urea nitrogen [Mass/Vol] 19 mg/dL Normal 9-24 [facility] Comment on above: Order Comment: Speci men Type: BLOOD SPECIMENOrdering Facility: [facility] Address: [address] [place] [address] Performed By: #### 2 4323-8 ####[facility] [id number] [place] [address] PSA SerPl-mCncon 02-12-2024 Prostate specific Ag [Mass/Vol] 0.97 ng/mL Normal <2.60 [facility] Comment on above: Order Comment: Speci men Type: BLOOD SPECIMENOrdering Facility: [facility] Address: [address] [place] [address] Result Comment: Tota l PSA test methodology used is the Electrochemiluminescence Immunoassay by [employer]. Total PSA values by differing methodologies cannot be interchanged. Performed By: #### 2 857-1 ####[facility] [id number] [facility] [id number] [place] [address] [place] PTH RELATED PEPTIDEon 2023 PTH RELATED PEPTIDE 2.9 pmol/L High 0.0-2.3 [facility] Comment on above: Order Comment: Speci men Type: BLOOD SPECIMENOrdering Facility: [facility] Address: [address] [place] [address] Result Comment: INTE RPRETIVE INFORMATION: Parathyroid Hormone-Related Peptide This test was developed and its performance characteristics determined by [facility]. It has not been cleared or approved by the [place] Food and Drug Administration. This test was performed in a CLIA certified laboratory and is intended for clinical purposes. Performed By: [facility] [address] [place] [address] Transportation Maintenance Supervisor: Adi Neal MD, PhD CLIA Number: [id number] Performed By: #### P THPEP ####[facility] [id number] [place] [address] PTH-Intact [facility]Pl[facility] Parathyrin.intact [Mass/Vol] 51 pg/mL Normal 15-65 [facility] Comment on above: Order Comment: Speci men Type: BLOOD SPECIMEN Ordering Facility: [facility] Address: [address] [place], [place] [address] Performed By: #### 2 4321-2 #### [facility] CLIA [id number] [address] [place], [place] [address] DEXA SCAN CENTRAL SKELETALon 01-10-2024 DEXA SCAN [...] Bernardo MD on 01/10/2024 9:25 PM Normal [facility] CNOVSPon 12-20-2023 CNOVSP Visit (SP) Office (H EMASA) JM BARROW ([id number]) 1945 M Date Time Provider Department 12/20/23 2:00 PM MACHELLE ISADORA PRADO During your visit today, we recorded the following information about you: Temperature Pulse Respiration Blood pressure 97.2 degrees 69/minute 16/minute 135/74 Weight 80.2 kg Isadora aCrty PA-C 12/20/2023 2:30 PM Signed PATIENT NAME: [...] CATARACT, INSERT LENS,EX; Bilateral Comment: Dr. Grimm [place], [place] No date: TONSILLECTOMY HX FAMILY HISTORY: [...] No Dr (more content not included)... Normal [facility] Cytologyon 12-19-2023 Cytology Normal [facility] Comment on above: Result Comment: [facility] [address] [place] [address] Cytology Consultation Patient Name:JM BARROW JR.:1945 (Age: 77)Gender:MTaken:12/19/2023eported:12/20/2023 13:07Physician(s):Leroy Shaw M.D. ([phone])Copy To: Rec. #:[id number]: #[id number] Final Cytologic Diagnosis Voided urine: Atypical urothelial cells present. [facility]/12/20/2023 Interpretation performed at [facility], [address] [place] [address], License number: [id number].Electronically Signed Out By Deandre Willett MD Clinical History History of urothelial cell carcinoma. Gross Description Received was 60 mL of yellow fluid labeled as [place], 49, the order states that this is a urine specimen .Preservative added. 30 mL used for Cytology. See [employer] report. 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 This test has been modified from the laborer petroleum refinery's instructions. Its performance characteristics were determined by [facility] in a manner consistent with CLIA requirements. This test has not been cleared or approved by the U.S. Food and Drug Administration. Reason for Referral Evaluate for urothelial carcinoma. Specimen Varies Source Urine, NOS Released By Chong Booth M.D., Ph.D. Test Performed by: [place] [id number] Dovetailer: Mely Amezquita Ph.D.; CLIA# [id number] Performed By: #### 3 0896-5 #### [facility] ([id number]) [address] [place] [address] Basic metabolic 2000 panelOr dered By: Agustin Acevedo on 12-14-2023 Anion gap [Moles/Vol] 10 mmol/L 8 - 15 mmol/L [facility] Calcium [Mass/Vol] 11.3 mg/dL High 8.5 - 10. 2 mg/dL [facility] Chloride [Moles/Vol] 104 mmol/L 98 - 107 mmol/L [facility] CO2 [Moles/Vol] 29 mmol/L 22 - 30 mmol/L [facility] Creatinine [Mass/Vol] 1.13 mg/dL 0.73 - 1.22 mg/dL [facility] GFR/1.73 sq M.predicted among non-blacks MDRD (S/P/Bld) [Vol rate/Area] 68 mL/min/{1.73_m2} - PINF [facility] Comment on above: Estimated Glomerular Filtration [...] 144 mg/dL High 74 - 99 mg/dL [facility] Comment on above: The [place] [employer] (ADA) provides guidance for [...] Standards of Medical Care in Diabetes 2016, [place] [employer]. Diabetes Care. 2016.39(Suppl 1). Interpretation and review of laboratory results Abnormal [facility] Potassium [Moles/Vol] 3.9 mmol/L 3.7 - 5.1 mmol/L [facility] Sodium [Moles/Vol] 143 mmol/L 136 - 144 mmol/L [facility] Urea nitrogen [Mass/Vol] 27 mg/dL High 9 - 24 mg/dL [facility] Basic metabolic 2000 panelon 12-14-2023 Anion gap [Moles/Vol] 10 mmol/L Normal 8-15 [facility] Comment on above: Order Comment: Speci men Type: BLOOD SPECIMENOrdering Facility: [facility] Address: [address] [place], [place] [address] Performed By: #### 2 4321-2 ####[facility] LABCLIA [id number] [place] [address] Calcium [Mass/Vol] 11.3 mg/dL High 8.5-10.2 [facility] Comment on above: Order Comment: Speci men Type: BLOOD SPECIMENOrdering Facility: [facility] Address: [facility] [place] [address] Performed By: #### 2 4321-2 ####[facility] LABCLIA [id number] [place] [address] Chloride [Moles/Vol] 104 mmol/L Normal 98-107 [facility] Comment on above: Order Comment: Speci men Type: BLOOD SPECIMENOrdering Facility: [facility] Address: [address] [place] [address] Performed By: #### 2 4321-2 ####[facility] LABCLIA [id number] [place] [address] CO2 [Moles/Vol] 29 mmol/L Normal 22-30 [facility] Comment on above: Order Comment: Speci men Type: BLOOD SPECIMENOrdering Facility: [facility] Address: [address] [place] [address] Performed By: #### 2 4321-2 ####[facility] LABCLIA [id number] [place] [address] Creatinine [Mass/Vol] 1.13 mg/dL Normal 0.73-1.22 [facility] Comment on above: Order Comment: Speci men Type: BLOOD SPECIMENOrdering Facility: [facility] Address: [address] [place] [address] Performed By: #### 2 4321-2 ####[facility] LABCLIA [id number] [place] [address] Creatinine and Glomerular filtration rate.predicted panel (S/P/Bld) 68 mL/min/1.73m??? Normal >=60 [facility] Comment on above: Order Comment: Speci men Type: BLOOD SPECIMENOrdering Facility: [facility] Address: [address] [place] [address] Result Comment: Jessica mated Glomerular Filtration Rate [...] actual GFR. Performed By: #### 2 4321-2 ####[facility] LABCLIA [id number] [place] [address] Glucose [Mass/Vol] 144 mg/dL High 74-99 [facility] Comment on above: Order Comment: Speci men Type: BLOOD SPECIMENOrdering Facility: [facility] Address: [address] [place], [place] [address] Result Comment: The [place] [employer] (ADA) provides guidance for [...] Standards of Medical Care in Diabetes 2016, [place] [employer]. Diabetes Care. 2016.39(Suppl 1). Performed By: #### 2 4321-2 ####[facility] LABCLIA [id number] [place] [address] Potassium [Moles/Vol] 3.9 mmol/L Normal 3.7-5.1 [facility] Comment on above: Order Comment: Speci men Type: BLOOD SPECIMENOrdering Facility: [facility] Address: [address] [place], [place] [address] Performed By: #### 2 4321-2 ####[facility] LABCLIA [id number] [place] [address] Sodium [Moles/Vol] 143 mmol/L Normal 136-144 [facility] Comment on above: Order Comment: Speci men Type: BLOOD SPECIMENOrdering Facility: [facility] Address: [address] [place] [address] Performed By: #### 2 4321-2 ####[facility] LABCLIA [id number] [place] [address] Urea nitrogen [Mass/Vol] 27 mg/dL High 9-24 [facility] Comment on above: Order Comment: Speci men Type: BLOOD SPECIMENOrdering Facility: [facility] Address: [address] [place] [address] Performed By: #### 2 4321-2 ####[facility] LABCLIA [id number] [place] [address] CBC W Auto Differential pane l (Bld)on 12-14-2023 Basophils (Bld) [#/Vol] 0.04 10*3/uL [facility] Basophils/100 WBC (Bld) 0.6 % [facility] Differential cell count method Nom (Bld) Auto [facility] Eosinophils (Bld) [#/Vol] 0.45 10*3/uL [facility] Eosinophils/100 WBC (Bld) 7.1 % [facility] Erythrocyte distribution width (RBC) [Ratio] 12.0 % 11.5 - 15.0 % [facility] Hematocrit (Bld) [Volume fraction] 39.6 % 39.0 - 51.0 % [facility] Hemoglobin (Bld) [Mass/Vol] 14.0 g/dL 13.0 - 17.0 g/dL [facility] Immature granulocytes (Bld) [#/Vol] [facility] Immature granulocytes/100 WBC (Bld) 0.3 % [facility] Lymphocytes (Bld) [#/Vol] 1.87 10*3/uL [facility] Lymphocytes/100 WBC (Bld) 29.5 % [facility] MCH (RBC) [Entitic mass] 32.7 pg 26.0 - 34.0 pg [facility] MCHC (RBC) [Mass/Vol] 35.4 g/dL 30.5 - 36.0 g/dL [facility] MCV (RBC) [Entitic vol] 92.5 fL 80.0 - 100.0 fL [facility] Monocytes (Bld) [#/Vol] 0.66 10*3/uL [facility] Monocytes/100 WBC (Bld) 10.4 % [facility] Neutrophils (Bld) [#/Vol] 3.30 10*3/uL [facility] Neutrophils/100 WBC (Bld) 52.1 % [facility] Nucleated RBC (Bld) [#/Vol] [facility] Nucleated RBC/100 WBC (Bld) [Ratio] 0.0 % /100 WBC [facility] Platelet mean volume (Bld) [Entitic vol] 9.1 fL 9.0 - 12.7 fL [facility] Platelets (Bld) [#/Vol] 195 10*3/uL [facility] RBC (Bld) [#/Vol] 4.28 10*6/uL 4.20 - 6.0 0 m/uL [facility] WBC (Bld) [#/Vol] 6.34 10*3/uL [facility] Basophils (Bld) [#/Vol] 0.04 10*3/uL Normal <0.11 [facility] Comment on above: Order Comment: Speci men Type: BLOOD SPECIMENOrdering Facility: [facility] Address: [address] [place] [address] Performed By: #### 5 7021-8 ####[facility] LABCLIA [id number] [place] [address] Basophils/100 WBC (Bld) 0.6 % Normal [facility] Comment on above: Order Comment: Speci men Type: BLOOD SPECIMENOrdering Facility: [facility] Address: [address] [place] [address] Performed By: #### 5 7021-8 ####[facility] LABCLIA [id number] [place] [address] Differential cell count method Nom (Bld) Auto Normal [facility] Comment on above: Order Comment: Speci men Type: BLOOD SPECIMENOrdering Facility: [facility] Address: [address] [place] [address] Performed By: #### 5 7021-8 ####[facility] LABIA [id number] [place] [address] Eosinophils (Bld) [#/Vol] 0.45 10*3/uL Normal <0.46 [facility] Comment on above: Order Comment: Speci men Type: BLOOD SPECIMENOrdering Facility: [facility] Address: [address] [place] [address] Performed By: #### 5 7021-8 ####[facility] LABCLIA [id number] [place] [address] Eosinophils/100 WBC (Bld) 7.1 % Normal [facility] Comment on above: Order Comment: Speci men Type: BLOOD SPECIMENOrdering Facility: [facility] Address: [address] [place] [address] Performed By: #### 5 7021-8 ####[facility] LABCLIA [id number] [place] [address] Erythrocyte distribution width (RBC) [Ratio] 12.0 % Normal 11.5-15.0 [facility] Comment on above: Order Comment: Speci men Type: BLOOD SPECIMENOrdering Facility: [facility] Address: [address] [place] [address] Performed By: #### 5 7021-8 ####[facility] LABCLIA [id number] [place] [address] Hematocrit (Bld) [Volume fraction] 39.6 % Normal 39.0-51.0 [facility] Comment on above: Order Comment: Speci men Type: BLOOD SPECIMENOrdering Facility: [facility] Address: [address] [place] [address] Performed By: #### 5 7021-8 ####[facility] LABCLIA [id number] [place] [address] Hemoglobin (Bld) [Mass/Vol] 14.0 g/dL Normal 13.0-17.0 [facility] Comment on above: Order Comment: Speci men Type: BLOOD SPECIMENOrdering Facility: [facility] Address: [address] [place] [address] Performed By: #### 5 7021-8 ####[facility] LABCLIA [id number] [place] [address] Immature granulocytes (Bld) [#/Vol] 10*3/uL Normal <0.10 [facility] Comment on above: Order Comment: Speci men Type: BLOOD SPECIMENOrdering Facility: [facility] Address: [address] [place] [address] Performed By: #### 5 7021-8 ####[facility] LABCLIA [id number] [place] [address] Immature granulocytes/100 WBC (Bld) 0.3 % Normal [facility] Comment on above: Order Comment: Speci men Type: BLOOD SPECIMENOrdering Facility: [facility] Address: [address] [place] [address] Performed By: #### 5 7021-8 ####[facility] LABCLIA [id number] [place] [address] Lymphocytes (Bld) [#/Vol] 1.87 10*3/uL Normal 1.00-4.00 [facility] Comment on above: Order Comment: Speci men Type: BLOOD SPECIMENOrdering Facility: [facility] Address: [address] [place] [address] Performed By: #### 5 7021-8 ####[facility] LABCLIA [id number] [place] [address] Lymphocytes/100 WBC (Bld) 29.5 % Normal [facility] Comment on above: Order Comment: Speci men Type: BLOOD SPECIMENOrdering Facility: [facility] Address: [address] [place] [address] Performed By: #### 5 7021-8 ####[facility] LABCLIA [id number] [place] [address] MCH (RBC) [Entitic mass] 32.7 pg Normal 26.0-34.0 [facility] Comment on above: Order Comment: Speci men Type: BLOOD SPECIMENOrdering Facility: [facility] Address: [address] [place] [address] Performed By: #### 5 7021-8 ####[facility] LABCLIA [id number] [place] [address] MCHC (RBC) [Mass/Vol] 35.4 g/dL Normal 30.5-36.0 [facility] Comment on above: Order Comment: Speci men Type: BLOOD SPECIMENOrdering Facility: [facility] Address: [address] [place] [address] Performed By: #### 5 7021-8 ####[facility] LABCLIA [id number] [place] [address] MCV (RBC) [Entitic vol] 92.5 fL Normal 80.0-100.0 [facility] Comment on above: Order Comment: Speci men Type: BLOOD SPECIMENOrdering Facility: [facility] Address: [address] [place] [address] Performed By: #### 5 7021-8 ####[facility] LABIA [id number] [place] [address] Monocytes (Bld) [#/Vol] 0.66 10*3/uL Normal <0.87 [facility] Comment on above: Order Comment: Speci men Type: BLOOD SPECIMENOrdering Facility: [facility] Address: [address] [place] [address] Performed By: #### 5 7021-8 ####[facility] LABCLIA [id number] [place] [address] Monocytes/100 WBC (Bld) 10.4 % Normal [facility] Comment on above: Order Comment: Speci men Type: BLOOD SPECIMENOrdering Facility: [facility] Address: [address] [place] [address] Performed By: #### 5 7021-8 ####[facility] LABIA [id number] [place] [address] Neutrophils (Bld) [#/Vol] 3.30 10*3/uL Normal 1.45-7.50 [facility] Comment on above: Order Comment: Speci men Type: BLOOD SPECIMENOrdering Facility: [facility] Address: [address] [place] [address] Performed By: #### 5 7021-8 ####[facility] LABCLIA [id number] [place] [address] Neutrophils/100 WBC (Bld) 52.1 % Normal [facility] Comment on above: Order Comment: Speci men Type: BLOOD SPECIMENOrdering Facility: [facility] Address: [address] [place] [address] Performed By: #### 5 7021-8 ####[facility] LABCLIA [id number] [place] [address] Nucleated RBC (Bld) [#/Vol] 10*3/uL Normal <0.01 [facility] Comment on above: Order Comment: Speci men Type: BLOOD SPECIMENOrdering Facility: [facility] Address: [address] [place] [address] Performed By: #### 5 7021-8 ####[facility] LABCLIA [id number] [place] [address] Nucleated RBC/100 WBC (Bld) [Ratio] 0.0 /100 WBC Normal [facility] Comment on above: Order Comment: Speci men Type: BLOOD SPECIMENOrdering Facility: [facility] Address: [address] [place] [address] Performed By: #### 5 7021-8 ####[facility] LABCLIA [id number] [place] [address] Platelet mean volume (Bld) [Entitic vol] 9.1 fL Normal 9.0-12.7 [facility] Comment on above: Order Comment: Speci men Type: BLOOD SPECIMENOrdering Facility: [facility] Address: [address] [place] [address] Performed By: #### 5 7021-8 ####[facility] LABCLIA [id number] [place] [address] Platelets (Bld) [#/Vol] 195 10*3/uL Normal 150-400 [facility] Comment on above: Order Comment: Speci men Type: BLOOD SPECIMENOrdering Facility: [facility] Address: [address] [place] [address] Performed By: #### 5 7021-8 ####[facility] LABCLIA [id number] [place] [address] RBC (Bld) [#/Vol] 4.28 10*6/uL Normal 4.20-6.00 [facility] Comment on above: Order Comment: Speci men Type: BLOOD SPECIMENOrdering Facility: [facility] Address: [address] [place] [address] Performed By: #### 5 7021-8 ####[facility] LABCLIA [id number] [place] [address] WBC (Bld) [#/Vol] 6.34 10*3/uL Normal 3.70-11.00 [facility] Comment on above: Order Comment: Speci men Type: BLOOD SPECIMENOrdering Facility: [facility] Address: [address] [place] [address] Performed By: #### 5 7021-8 ####[facility] LABIA [id number] [place] [address] [facility] Prostate specific Ag [Mass/Vol] 0.92 ng/mL Normal <2.60 [facility] Comment on above: Order Comment: Speci men Type: BLOOD SPECIMENOrdering Facility: [facility] Address: [address] [place] [address] Result Comment: Tota l PSA test methodology used is the Electrochemiluminescence Immunoassay by [employer]. Total PSA values by differing methodologies cannot be interchanged. Performed By: #### 2 857-1 ####[facility] LABCLIA [id number] [facility] [id number] [id number] [place] CNPNon 12-13-2023 CNPN Telephone (HEMASA) JM BARROW ([id number]) 1945 M Date Time Provider Department 12/13/23 [...] BLOOD COUNT AND DIFFERENTIAL [SQCBCDIF] Order #: [id number] FUTURE BASIC METABOLIC PANEL [SQBMP] Order #: [id number] FUTURE PROSTATE-SPECIFIC ANTIGEN DIAGNOSTIC [SQPSA] Order #: [id number] FUTURE Prescriptions as of 12/15/2023 - bicalutamide [...] Status:Closed by UMER DALE on 12/15/23 Normal [facility] US carotid doppler BIon 07-0 US carotid doppler [facility] [address] [place] [address] Ultrasound Report Signed Patient: Jm Barrow JR MR#: [id number] : 1945 Acct:[id number] Age/Sex: 77 / M ADM Date: 11/14/23 Loc: [facility] Room: Type: [facility] Attending Dr: Clarence Gregory MD Ordering [...] Clarence Gregory M.D.11/14/2023 3:23 PM Dictation Location: [place] [address] Tech: Florence Prince Transcribed By: KELLY 11/14/23 152 Dictated By: Clarence Gregory MD 11/14/23 152 Signed By: 11/14/23 1523 Normal [facility] Crys 10-17-2023 PRATIMA Telephone (EVE) JM BARROW ([id number]) 1945 M Date Time Provider Department 10/17/23 [...] Status:Closed by DANIEL BENÍTEZ on 10/17/23 Normal [facility] Basic metabolic 2000 panelon 10-16-2023 Anion gap [Moles/Vol] 12 mmol/L Normal 9-18 [facility] Comment on above: Order Comment: Speci men Type: BLOOD SPECIMEN [facility] Address: [address] [place] [address] Performed By: #### 2 4321-2 #### [facility] CLIA [id number] [address] [place] [address] Calcium [Mass/Vol] 11.3 mg/dL High 8.5-10.2 [facility] Comment on above: Order Comment: Speci men Type: BLOOD SPECIMEN Ordering Facility: [facility] Address: [address] [place] [address] Performed By: #### 2 4321-2 #### [facility] CLIA [id number] [address] [place] [address] Chloride [Moles/Vol] 104 mmol/L Normal 97-105 [facility] Comment on above: Order Comment: Speci men Type: BLOOD SPECIMEN [facility]ing Facility: [facility] Address: [address] [place] [address] Performed By: #### 2 4321-2 #### [facility] CLIA [id number] [address] [place] [address] CO2 [Moles/Vol] 30 mmol/L Normal 22-30 [facility] Comment on above: Order Comment: Speci men Type: BLOOD SPECIMEN [facility]ing [facility]: [facility] Address: [address] [place] [address] Performed By: #### 2 4321-2 #### [facility] CLIA [id number] [address] [place] [address] Creatinine [Mass/Vol] 1.12 mg/dL Normal 0.73-1.22 [facility] Comment on above: Order Comment: Speci men Type: BLOOD SPECIMEN [facility]ing [facility]: [facility] Address: [address] [place] [address] Performed By: #### 2 4321-2 #### [facility] CLIA [id number] [address] [place] [address] Creatinine and Glomerular filtration rate.predicted panel (S/P/Bld) 69 mL/min/1.73m??? Normal >=60 [facility] Comment on above: Order Comment: Speci men Type: BLOOD SPECIMEN Ordering Facility: [facility] Address: [address] [place] [address] Result Comment: Jessica mated Glomerular Filtration Rate [...] GFR. Performed By: #### 2 4321-2 #### [facility] CLIA [id number] [address] [place] [address] Glucose [Mass/Vol] 127 mg/dL High 74-99 [facility] Comment on above: Order Comment: Speci men Type: BLOOD SPECIMEN Ordering Facility: [facility] Address: [address], [place] [address] Result Comment: The [place] [employer] (ADA) provides guidance for [...] Standards of Medical Care in Diabetes 2016, [place] [employer]. Diabetes Care. 2016.39(Suppl 1). Performed By: #### 2 4321-2 #### [facility] CLIA [id number] [address] [place] [address] Potassium [Moles/Vol] 3.4 mmol/L Low 3.7-5.1 [facility] Comment on above: Order Comment: Speci men Type: BLOOD SPECIMEN Ordering Facility: [facility] Address: [address] [place] [address] Performed By: #### 2 4321-2 #### [facility] CLIA [id number] [address] [place] [address] Sodium [Moles/Vol] 146 mmol/L High 136-144 [facility] Comment on above: Order Comment: Speci men Type: BLOOD SPECIMEN Ordering Facility: [facility] Address: [address] [place] [address] Performed By: #### 2 4321-2 #### [facility] CLIA [id number] [address] [place] [address] Urea nitrogen [Mass/Vol] 33 mg/dL High 9-24 [facility] Comment on above: Order Comment: Speci men Type: BLOOD SPECIMEN Ordering Facility: [facility] Address: [address] [place] [id number] Performed By: #### 2 4321-2 #### [facility] CLIA [id number] [address] [place] [address] [place] [address] CBC W Auto Differential pane l (Bld)on 10-16-2023 Basophils (Bld) [#/Vol] 10*3/uL Normal <0.11 [facility] Comment on above: Order Comment: Speci men Type: BLOOD SPECIMEN [facility]ing [facility]: [facility] Address: [address] [place] [address] Performed By: #### 2 4321-2 #### [facility] CLIA [id number] [address] [place] [address] Basophils/100 WBC (Bld) 0.1 % Normal [facility] Comment on above: Order Comment: Speci men Type: BLOOD SPECIMEN [facility]ing Facility: [facility] Address: [address] [place] [address] Performed By: #### 2 4321-2 #### [facility] CLIA [id number] [address] [place] [address] Differential cell count method Nom (Bld) Auto Normal [facility] Comment on above: Order Comment: Speci men Type: BLOOD SPECIMEN Ordering [facility]: [facility] Address: [address] [place] [address] Performed By: #### 2 4321-2 #### [facility] CLIA [id number] [address] [place] [address] Eosinophils (Bld) [#/Vol] 0.04 10*3/uL Normal <0.46 [facility] Comment on above: Order Comment: Speci men Type: BLOOD SPECIMEN Ordering Facility: [facility] Address: [address] [place] [address] Performed By: #### 2 4321-2 #### [facility] CLIA [id number] [address] [place] [address] 32165 Eosinophils/100 WBC (Bld) 0.4 % Normal [facility] Comment on above: Order Comment: Speci men Type: BLOOD SPECIMEN Ordering Facility: [facility] Address: [address] [place] [address] Performed By: #### 2 4321-2 #### [facility] CLIA [id number] [address] [place] [address] Erythrocyte distribution width (RBC) [Ratio] 12.4 % Normal 11.5-15.0 [facility] Comment on above: Order Comment: Speci men Type: BLOOD SPECIMEN Ordering Facility: [facility] Address: [address] [place] [address] Performed By: #### 2 4321-2 #### [facility] CLIA [id number] [address] [place] [address] 72134 Hematocrit (Bld) [Volume fraction] 43.2 % Normal 39.0-51.0 [facility] Comment on above: Order Comment: Speci men Type: BLOOD SPECIMEN Ordering Facility: [facility] Address: [address] [place] [address] Performed By: #### 2 4321-2 #### [facility] CLIA [id number] [address] [place] [address] 46349 Hemoglobin (Bld) [Mass/Vol] 15.0 g/dL Normal 13.0-17.0 [facility] Comment on above: Order Comment: Speci men Type: BLOOD SPECIMEN Ordering Facility: [facility] Address: [address] [place] [address] Performed By: #### 2 4321-2 #### [facility] CLIA [id number] [address] [place] [address] 00409 Immature granulocytes (Bld) [#/Vol] 0.06 10*3/uL Normal <0.10 [facility] Comment on above: Order Comment: Speci men Type: BLOOD SPECIMEN Ordering Facility: [facility] Address: [address] [place] [address] Performed By: #### 2 4321-2 #### [facility] CLIA [id number] [address] [place] [address] 55452 Immature granulocytes/100 WBC (Bld) 0.6 % Normal [facility] Comment on above: Order Comment: Speci men Type: BLOOD SPECIMEN Ordering Facility: [facility] Address: [address] [place] [address] Performed By: #### 2 4321-2 #### [facility] CLIA [id number] [address] [place] [address] 43804 Lymphocytes (Bld) [#/Vol] 2.48 10*3/uL Normal 1.00-4.00 [facility] Comment on above: Order Comment: Speci men Type: BLOOD SPECIMEN Ordering Facility: [facility] Address: [address] [place] [address] Performed By: #### 2 4321-2 #### [facility] CLIA [id number] [address] [place] [address] 92108 Lymphocytes/100 WBC (Bld) 25.3 % Normal [facility] Comment on above: Order Comment: Speci men Type: BLOOD SPECIMEN Ordering Facility: [facility] Address: [address] [place] [address] Performed By: #### 2 4321-2 #### [facility] CLIA [id number] [address] [place] [address] 61835 MCH (RBC) [Entitic mass] 31.6 pg Normal 26.0-34.0 [facility] Comment on above: Order Comment: Speci men Type: BLOOD SPECIMEN Ordering Facility: [facility] Address: [address] [place] [address] Performed By: #### 2 4321-2 #### [facility] CLIA [id number] [address] [place] [address] 05987 MCHC (RBC) [Mass/Vol] 34.7 g/dL Normal 30.5-36.0 [facility] Comment on above: Order Comment: Speci men Type: BLOOD SPECIMEN Ordering Facility: [facility] Address: [address] [place], [place] [address] Performed By: #### 2 4321-2 #### [facility] CLIA [id number] [address] [place] [address] 92923 MCV (RBC) [Entitic vol] 90.9 fL Normal 80.0-100.0 [facility] Comment on above: Order Comment: Speci men Type: BLOOD SPECIMEN Ordering Facility: [facility] Address: [address] [place] [address] Performed By: #### 2 4321-2 #### [facility] CLIA [id number] [address] [place] [address] 83343 Monocytes (Bld) [#/Vol] 0.70 10*3/uL Normal <0.87 [facility] Comment on above: Order Comment: Speci men Type: BLOOD SPECIMEN Ordering Facility: [facility] Address: [address] [place] [address] Performed By: #### 2 4321-2 #### [facility] CLIA [id number] [address] [place] [address] 53341 Monocytes/100 WBC (Bld) 7.1 % Normal [facility] Comment on above: Order Comment: Speci men Type: BLOOD SPECIMEN Ordering Facility: [facility] Address: [address] [place] [address] Performed By: #### 2 4321-2 #### [facility] CLIA [id number] [address] [place] [address] 37187 Neutrophils (Bld) [#/Vol] 6.53 10*3/uL Normal 1.45-7.50 [facility] Comment on above: Order Comment: Speci men Type: BLOOD SPECIMEN Ordering Facility: [facility] Address: [address] [place] [address] Performed By: #### 2 4321-2 #### [facility] CLIA [id number] [address] [place] [address] 55070 Neutrophils/100 WBC (Bld) 66.5 % Normal [facility] Comment on above: Order Comment: Speci men Type: BLOOD SPECIMEN Ordering Facility: [facility] Address: [address] [place] [address] Performed By: #### 2 4321-2 #### [facility] CLIA [id number] [address] [place] [address] Nucleated RBC (Bld) [#/Vol] 10*3/uL Normal <0.01 [facility] Comment on above: Order Comment: Speci men Type: BLOOD SPECIMEN Ordering Facility: [facility] Address: [address] [place] [address] Performed By: #### 2 4321-2 #### [facility] CLIA [id number] [address] [place] [address] Nucleated RBC/100 WBC (Bld) [Ratio] 0.0 /100 WBC Normal [facility] Comment on above: Order Comment: Speci men Type: BLOOD SPECIMEN Ordering Facility: [facility] Address: [address] [place] [address] Performed By: #### 2 4321-2 #### [facility] CLIA [id number] [address] [place] [address] 86223 Platelet mean volume (Bld) [Entitic vol] 9.3 fL Normal 9.0-12.7 [facility] Comment on above: Order Comment: Speci men Type: BLOOD SPECIMEN Ordering Facility: [facility] Address: [address] [place] [address] 9[address]17 Performed By: #### 2 4321-2 #### [facility] CLIA [id number] [address] [place] [address] Platelets (Bld) [#/Vol] 197 10*3/uL Normal 150-400 [facility] Comment on above: Order Comment: Speci men Type: BLOOD SPECIMEN Ordering Facility: [facility] Address: [address] [place] [address]674 Performed By: #### 2 4321-2 #### [facility] CLIA [id number] [address] [place] [address] 76665 RBC (Bld) [#/Vol] 4.75 10*6/uL Normal 4.20-6.00 [facility] Comment on above: Order Comment: Speci men Type: BLOOD SPECIMEN Ordering Facility: [facility] Address: [address] [place], [place] [address] Performed By: #### 2 4321-2 #### [facility] [place] [id number] [address] [place] [address] 18290 WBC (Bld) [#/Vol] 9.82 10*3/uL Normal 3.70-11.00 [facility] Comment on above: Order Comment: Speci men Type: BLOOD SPECIMEN Ordering Facility: [facility] Address: [address] [place] [address] Performed By: #### 2 4321-2 #### [facility] CLIA [id number] [address] [place] [address] 61946 PSA SerPl-ncon 10-16-2023 Prostate specific Ag [Mass/Vol] 0.94 ng/mL Normal <2.60 [facility] Comment on above: Order Comment: Speci men Type: BLOOD SPECIMENOrdering Facility: [facility] Address: [address] [place] [address] Result Comment: Tota l PSA test methodology used is the Electrochemiluminescence Immunoassay by [employer]. Total PSA values by differing methodologies cannot be interchanged. Performed By: #### 2 857-1 ####[facility] [id number] [place] [address] [place] CNOVon 08-17-2023 CNOV Office Visit (NAVEEDA ) JM BARROW ([id number]) 1945 M Date Time Provider Department 08/17/23 [...] enteric coated (more content not included)... Normal [facility] CNOVSPon 08-17-2023 OVS Visit (SP) Office (H EMASA) SUEJM GHOTRA ([id number]) 1945 M Date Time Provider Department 08/17/23 [...] CATARACT, INSERT LENS,EX Bilateral 06/2019 Dr. Grimm [facility], [place] TONSILLECTOMY HX FAMILY HISTORY: FAMILY HISTORY Problem Relation Age of Onset Colon Cancer Mother GI Mother Diabetes Mother Cancer Father Pancreatic or Liver Diabetes Father SOCIAL HISTORY: Social History Tobacco Use Smoking status: Every Day Packs/day: 1.00 Years: 40.00 Additional pack years: 0.00 Total pack years: 40.00 Types: Cigarettes Passive exposur (more content not included)... Normal [facility] metabolic 2000 panelon 08-15-2023 Anion gap [Moles/Vol] 11 mmol/L Normal 9-18 [facility] Comment on above: Order Comment: Speci men Type: BLOOD SPECIMEN Ordering Facility: [facility] Address: [address] [place] [address] Performed By: #### 2 4321-2 #### [facility] CLIA [id number] [address] [place] [address] 66903 Calcium [Mass/Vol] 11.3 mg/dL High 8.5-10.2 [facility] Comment on above: Order Comment: Speci men Type: BLOOD SPECIMEN Ordering Facility: [facility] Address: [address] [place] [address] Performed By: #### 2 4321-2 #### [facility] CLIA [id number] [address] [place] [address] 82758 Chloride [Moles/Vol] 105 mmol/L Normal 97-105 [facility] Comment on above: Order Comment: Speci men Type: BLOOD SPECIMEN Ordering Facility: [facility] Address: [address] [place] [address] Performed By: #### 2 4321-2 #### [facility] CLIA [id number] [address] [place] [address] 11139 CO2 [Moles/Vol] 30 mmol/L Normal 22-30 [facility] Comment on above: Order Comment: Speci men Type: BLOOD SPECIMEN Ordering Facility: [facility] Address: [address] [place] [address] 9[address]70 Performed By: #### 2 4321-2 #### [facility] CLIA [id number] [address] [place] [address] 16668 Creatinine [Mass/Vol] 1.02 mg/dL Normal 0.73-1.22 [facility] Comment on above: Order Comment: Speci men Type: BLOOD SPECIMEN Ordering Facility: [facility] Address: [address] [place] [address] 97367 Performed By: #### 2 4321-2 #### [facility] CLIA [id number] [address] [place] [address] Creatinine and Glomerular filtration rate.predicted panel (S/P/Bld) 77 mL/min/1.73m??? Normal >=60 [facility] Comment on above: Order Comment: Specvineet rahman Type: BLOOD SPECIMEN Ordering Facility: [facility] Address: [address] [place] [address] Result Comment: Jessica mated Glomerular Filtration Rate [...] GFR. Performed By: #### 2 4321-2 #### [facility] CLIA [id number] [address] [place] [address] 18622 Glucose [Mass/Vol] 103 mg/dL High 74-99 [facility] Comment on above: Order Comment: Speci josiah Type: BLOOD SPECIMEN Ordering Facility: [facility] Address: [address] [place] [address] Result Comment: The [place] [employer] (ADA) provides guidance for [...] Standards of Medical Care in Diabetes 2016, [place] [employer]. Diabetes Care. 2016.39(Suppl 1). Performed By: #### 2 4321-2 #### [facility] CLIA [id number] [address] [place] [address] 13511 Potassium [Moles/Vol] 4.5 mmol/L Normal 3.7-5.1 [facility] Comment on above: Order Comment: Speci men Type: BLOOD SPECIMEN Ordering Facility: [facility] Address: [address] [place], [place] [address] Performed By: #### 2 4321-2 #### [facility] CLIA [id number] [address] [place] [address] Sodium [Moles/Vol] 146 mmol/L High 136-144 [facility] Comment on above: Order Comment: Speci men Type: BLOOD SPECIMEN Ordering Facility: [facility] Address: [address] [place] [address] Performed By: #### 2 4321-2 #### [facility] CLIA [id number] [address] [place] [address] 91982 Urea nitrogen [Mass/Vol] 25 mg/dL High 9-24 [facility] Comment on above: Order Comment: Speci men Type: BLOOD SPECIMEN Ordering Facility: [facility] Address: [address] [place] [address]99 Performed By: #### 2 4321-2 #### [facility] CLIA [id number] [address] [place] [address] 15971 CBC W Auto Differential pane l (Bld)on 08-15-2023 Basophils (Bld) [#/Vol] 0.05 10*3/uL Normal <0.11 [facility] Comment on above: Order Comment: Speci men Type: BLOOD SPECIMENOrdering Facility: [facility] Address: [address] [place] [address]303 Performed By: #### 5 7021-8 ####[facility] [id number] [place] [address] Basophils/100 WBC (Bld) 0.5 % Normal [facility] Comment on above: Order Comment: Speci men Type: BLOOD SPECIMENOrdering Facility: [facility] Address: [address] [place] [address]25 Performed By: #### 5 7021-8 ####[facility] [id number] [place] [address] Differential cell count method Nom (Bld) Auto Normal [facility] Comment on above: Order Comment: Speci men Type: BLOOD SPECIMENOrdering Facility: [facility] Address: [address] [place] [address] Performed By: #### 5 7021-8 ####[facility] [id number] [place] [address] Eosinophils (Bld) [#/Vol] 0.59 10*3/uL High <0.46 [facility] Comment on above: Order Comment: Speci men Type: BLOOD SPECIMENOrdering Facility: [facility] Address: [address] [place] [address] Performed By: #### 5 7021-8 ####[facility] [id number] [place] [address] Eosinophils/100 WBC (Bld) 6.3 % Normal [facility] Comment on above: Order Comment: Speci men Type: BLOOD SPECIMENOrdering Facility: [facility] Address: [address] [place] [address] Performed By: #### 5 7021-8 ####[facility] [id number] [place] [address] Erythrocyte distribution width (RBC) [Ratio] 12.6 % Normal 11.5-15.0 [facility] Comment on above: Order Comment: Speci men Type: BLOOD SPECIMENOrdering Facility: [facility] Address: [address] [place] [address] Performed By: #### 5 7021-8 ####[facility] [id number] [place] [address] Hematocrit (Bld) [Volume fraction] 43.1 % Normal 39.0-51.0 [facility] Comment on above: Order Comment: Speci men Type: BLOOD SPECIMENOrdering Facility: [facility] Address: [address] [place] [address] Performed By: #### 5 7021-8 ####[facility] [id number] [place] [address] Hemoglobin (Bld) [Mass/Vol] 14.8 g/dL Normal 13.0-17.0 [facility] Comment on above: Order Comment: Speci men Type: BLOOD SPECIMENOrdering Facility: [facility] Address: [address] [place] [address] Performed By: #### 5 7021-8 ####[facility] [id number] [place] [address] Immature granulocytes (Bld) [#/Vol] 0.03 10*3/uL Normal <0.10 [facility] Comment on above: Order Comment: Speci men Type: BLOOD SPECIMENOrdering Facility: [facility] Address: [address] [place] [address] Performed By: #### 5 7021-8 ####[facility] [id number] [place] [address] Immature granulocytes/100 WBC (Bld) 0.3 % Normal [facility] Comment on above: Order Comment: Speci men Type: BLOOD SPECIMENOrdering Facility: [facility] Address: [address] [place] [address] Performed By: #### 5 7021-8 ####[facility] [id number] [place] [address] Lymphocytes (Bld) [#/Vol] 2.33 10*3/uL Normal 1.00-4.00 [facility] Comment on above: Order Comment: Speci men Type: BLOOD SPECIMENOrdering Facility: [facility] Address: [address] [place] [address] Performed By: #### 5 7021-8 ####[facility]CLIA [id number] [place] [address] Lymphocytes/100 WBC (Bld) 24.9 % Normal [facility] Comment on above: Order Comment: Speci men Type: BLOOD SPECIMENOrdering Facility: [facility] Address: [address] [place] [address] Performed By: #### 5 7021-8 ####[facility]IA [id number] [place] [address] MCH (RBC) [Entitic mass] 31.4 pg Normal 26.0-34.0 [facility] Comment on above: Order Comment: Speci men Type: BLOOD SPECIMENOrdering Facility: [facility] Address: [address] [place] [address] Performed By: #### 5 7021-8 ####[facility] [id number] [place] [address] MCHC (RBC) [Mass/Vol] 34.3 g/dL Normal 30.5-36.0 [facility] Comment on above: Order Comment: Speci men Type: BLOOD SPECIMENOrdering Facility: [facility] Address: [address] [place] [address] Performed By: #### 5 7021-8 ####[facility] [id number] [place] [address] MCV (RBC) [Entitic vol] 91.5 fL Normal 80.0-100.0 [facility] Comment on above: Order Comment: Speci men Type: BLOOD SPECIMENOrdering Facility: [facility] Address: [address] [place] [address] 0[address] Performed By: #### 5 7021-8 ####[facility]IA [id number] [place] [address] Monocytes (Bld) [#/Vol] 0.90 10*3/uL High <0.87 [facility] Comment on above: Order Comment: Speci men Type: BLOOD SPECIMENOrdering Facility: [facility] Address: [address] [place] [address] Performed By: #### 5 7021-8 ####[facility]CLIA [id number] [place] [address] Monocytes/100 WBC (Bld) 9.6 % Normal [facility] Comment on above: Order Comment: Speci men Type: BLOOD SPECIMENOrdering Facility: [facility] Address: [address] [place] [address] Performed By: #### 5 7021-8 ####[facility]CLIA [id number] [place] [address] Neutrophils (Bld) [#/Vol] 5.45 10*3/uL Normal 1.45-7.50 [facility] Comment on above: Order Comment: Speci men Type: BLOOD SPECIMENOrdering Facility: [facility] Address: [address] [place] [address] Performed By: #### 5 7021-8 ####[facility]CLIA [id number] [place] [address] Neutrophils/100 WBC (Bld) 58.4 % Normal [facility] Comment on above: Order Comment: Speci men Type: BLOOD SPECIMENOrdering Facility: [facility] Address: [address] [place] [address] Performed By: #### 5 7021-8 ####[facility]CLIA [id number] [place] [address] Nucleated RBC (Bld) [#/Vol] 10*3/uL Normal <0.01 [facility] Comment on above: Order Comment: Speci men Type: BLOOD SPECIMENOrdering Facility: [facility] Address: [address] [place] [address] Performed By: #### 5 7021-8 ####[facility]CLIA [id number] [place] [address] Nucleated RBC/100 WBC (Bld) [Ratio] 0.0 /100 WBC Normal [facility] Comment on above: Order Comment: Speci men Type: BLOOD SPECIMENOrdering Facility: [facility] Address: [address] [place] [address] Performed By: #### 5 7021-8 ####[facility]CLIA [id number] [place] [address] Platelet mean volume (Bld) [Entitic vol] 9.2 fL Normal 9.0-12.7 [facility] Comment on above: Order Comment: Speci men Type: BLOOD SPECIMENOrdering Facility: [facility] Address: [address] [place] [address] Performed By: #### 5 7021-8 ####[facility]CLIA [id number] [place] [address] Platelets (Bld) [#/Vol] 204 10*3/uL Normal 150-400 [facility] Comment on above: Order Comment: Speci men Type: BLOOD SPECIMENOrdering Facility: [facility] Address: [address] [place] [address] Performed By: #### 5 7021-8 ####[facility]IA [id number] [place] [address] RBC (Bld) [#/Vol] 4.71 10*6/uL Normal 4.20-6.00 [facility] Comment on above: Order Comment: Speci men Type: BLOOD SPECIMENOrdering Facility: [facility] Address: [address] [place] [address] Performed By: #### 5 7021-8 ####[facility]CLIA [id number] [place] [address] WBC (Bld) [#/Vol] 9.35 10*3/uL Normal 3.70-11.00 [facility] Comment on above: Order Comment: Speci men Type: BLOOD SPECIMENOrdering Facility: [facility] Address: [address] [place] [address] Performed By: #### 5 7021-8 ####[facility] LABCLIA [id number] [place] [address] PSA SerPl-mCncon 08-15-2023 Prostate specific Ag [Mass/Vol] 0.72 ng/mL Normal <2.60 [facility] Comment on above: Order Comment: Speci men Type: BLOOD SPECIMENOrdering Facility: [facility] Address: [address] [place] [address] Result Comment: Tota l PSA test methodology used is the Electrochemiluminescence Immunoassay by [employer]. Total PSA values by differing methodologies cannot be interchanged. Performed By: #### 2 857-1 ####[facility] LABCLIA [id number] [address] [place] CNPNuha 08-07-2023 CNPN Telephone (HEMASA) JM BARROW ([id number]) 1945 M Date Time Provider Department 08/07/23 [...] Fully Assessed Reason for Visit: Lab Orders [0988] Primary Visit Diagnosis:Prostate cancer (HCC) [C61] Order(s):CBC + DIFF [SQCBCDIF] Order #: [id number] FUTURE BASIC METABOLIC PNL [SQBMP] Order #: [id number] FUTURE PSA/PROSTSPECAG DIAG [SQPSA] Order #: [id number] FUTURE Prescriptions as of 08/07/2023 - acyclovir [...] by JOSE FRANCISCO BROUSSARD on 08/07/23 Normal [facility] Cytologyon 07-04-2023 Cytology Normal [facility] Comment on above: Result Comment: [facility] [address] [place] [address] Cytology Consultation Patient Name:JM BARROW JR.:1945 (Age: 77)Gender:MTaken:07/04/2023eported:07/05/2023 16:40Physician(s):Leroy Shaw M.D. ([phone])Copy To: Rec. #:[id number]: #[id number] Final Cytologic Diagnosis Voided urine: Negative for high-grade urothelial cell carcinoma. /07/05/2023 Interpretation performed at [facility], [address] [place] [address], License number: [id number].Electronically Signed Out By Tony Sanchez MD Clinical History Malignant neoplasm of urinary bladder ([facility]) C67.9. Cancer Gross Description Received was 30mL of cloudy yellow fluid unfixed labeled as [place], Voided urine . 15mL used for Cytology. See UroVysion report. 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 This test has been modified from the laborer petroleum refinery's instructions. Its performance characteristics were determined by [facility] in a manner consistent with CLIA requirements. This test has not been cleared or approved by the U.S. Food and Drug Administration. Reason for Referral Evaluate for urothelial carcinoma. Specimen Varies Source Urine, NOS Released By Willard Evans M.D. Test Performed by: [place] [address] Dovetailer: Baldo Hawkins M.D. Ph.D.; CLIA# [id number] Performed By: #### 3 0896-5 #### [facility] ([id number]) [address] [place] [address] CNOVSPon 06-26-2023 CNOVSP Visit (SP) Office (H EMASA) JM BARROW ([id number]) 1945 M Date Time Provider Department 06/26/23 [...] distant metastases. Once again he conferred with [facility] urology, but is reluctant to consider [...] INSERT LENS,EX Bilateral 06/2019 Dr. Alfa Flannery, [place] TONSILLECTOMY HX FAMILY HISTORY: FAMILY HISTORY Problem [...] intolerance, urinary (more content not included)... Normal [facility] CBC W Auto Differential pane l (Bld)on 06-23-2023 Basophils (Bld) [#/Vol] 0.06 10*3/uL Normal <0.11 [facility] Comment on above: Order Comment: Speci men Type: BLOOD SPECIMENOrdering Facility: [facility] Address: [address] [place] [address] Performed By: #### 5 7021-8 ####[facility] LABCLIA [id number] [place] [address] Basophils/100 WBC (Bld) 0.9 % Normal [facility] Comment on above: Order Comment: Speci men Type: BLOOD SPECIMENOrdering Facility: [facility] Address: [address] [place] [address] Performed By: #### 5 7021-8 ####[facility] LABCLIA [id number] [place] [address] Differential cell count method Nom (Bld) Auto Normal [facility] Comment on above: Order Comment: Speci men Type: BLOOD SPECIMENOrdering Facility: [facility] Address: [address] [place] [address] Performed By: #### 5 7021-8 ####[facility] LABCLIA [id number] [place] [address] Eosinophils (Bld) [#/Vol] 0.54 10*3/uL High <0.46 [facility] Comment on above: Order Comment: Speci men Type: BLOOD SPECIMENOrdering Facility: [facility] Address: [address] [place] [address] Performed By: #### 5 7021-8 ####[facility] LABCLIA [id number] [place] [address] Eosinophils/100 WBC (Bld) 8.2 % Normal [facility] Comment on above: Order Comment: Speci men Type: BLOOD SPECIMENOrdering Facility: [facility] Address: [address] [place] [address] Performed By: #### 5 7021-8 ####[facility] LABCLIA [id number] [place] [address] Erythrocyte distribution width (RBC) [Ratio] 12.6 % Normal 11.5-15.0 [facility] Comment on above: Order Comment: Speci men Type: BLOOD SPECIMENOrdering Facility: [facility] Address: [address] [place] [address] Performed By: #### 5 7021-8 ####[facility] LABCLIA [id number] [place] [address] Hematocrit (Bld) [Volume fraction] 44.4 % Normal 39.0-51.0 [facility] Comment on above: Order Comment: Speci men Type: BLOOD SPECIMENOrdering Facility: [facility] Address: [address] [place] [address] Performed By: #### 5 7021-8 ####[facility] LABIA [id number] [place] [address] Hemoglobin (Bld) [Mass/Vol] 14.9 g/dL Normal 13.0-17.0 [facility] Comment on above: Order Comment: Speci men Type: BLOOD SPECIMENOrdering Facility: [facility] Address: [address] [place] [address] Performed By: #### 5 7021-8 ####[facility] LABIA [id number] [place] [address] Immature granulocytes (Bld) [#/Vol] 10*3/uL Normal <0.10 [facility] Comment on above: Order Comment: Speci men Type: BLOOD SPECIMENOrdering Facility: [facility] Address: [address] [place] [address] Performed By: #### 5 7021-8 ####[facility] LABIA [id number] [place] [address] Immature granulocytes/100 WBC (Bld) 0.2 % Normal [facility] Comment on above: Order Comment: Speci men Type: BLOOD SPECIMENOrdering Facility: [facility] Address: [address] [place] [address] Performed By: #### 5 7021-8 ####[facility] LABCLIA [id number] [place] [address] Lymphocytes (Bld) [#/Vol] 1.81 10*3/uL Normal 1.00-4.00 [facility] Comment on above: Order Comment: Speci men Type: BLOOD SPECIMENOrdering Facility: [facility] Address: [address] [place] [address] Performed By: #### 5 7021-8 ####[facility] LABCLIA [id number] [place] [address] Lymphocytes/100 WBC (Bld) 27.5 % Normal [facility] Comment on above: Order Comment: Speci men Type: BLOOD SPECIMENOrdering Facility: [facility] Address: [address] [place] [address] Performed By: #### 5 7021-8 ####[facility] LABCLIA [id number] [place] [address] MCH (RBC) [Entitic mass] 30.8 pg Normal 26.0-34.0 [facility] Comment on above: Order Comment: Speci men Type: BLOOD SPECIMENOrdering Facility: [facility] Address: [address] [place] [address] Performed By: #### 5 7021-8 ####[facility] LABCLIA [id number] [place] [address] MCHC (RBC) [Mass/Vol] 33.6 g/dL Normal 30.5-36.0 [facility] Comment on above: Order Comment: Speci men Type: BLOOD SPECIMENOrdering Facility: [facility] Address: [address] [place] [address] Performed By: #### 5 7021-8 ####[facility] LABCLIA [id number] [place] [address] MCV (RBC) [Entitic vol] 91.9 fL Normal 80.0-100.0 [facility] Comment on above: Order Comment: Speci men Type: BLOOD SPECIMENOrdering Facility: [facility] Address: [address] [place] [address] Performed By: #### 5 7021-8 ####[facility] LABCLIA [id number] [place] [address] Monocytes (Bld) [#/Vol] 0.50 10*3/uL Normal <0.87 [facility] Comment on above: Order Comment: Speci men Type: BLOOD SPECIMENOrdering Facility: [facility] Address: [address] [place] [address] Performed By: #### 5 7021-8 ####[facility] LABCLIA [id number] [place] [address] Monocytes/100 WBC (Bld) 7.6 % Normal [facility] Comment on above: Order Comment: Speci men Type: BLOOD SPECIMENOrdering Facility: [facility] Address: [address] [place] [address] Performed By: #### 5 7021-8 ####[facility] LABCLIA [id number] [place] [address] Neutrophils (Bld) [#/Vol] 3.66 10*3/uL Normal 1.45-7.50 [facility] Comment on above: Order Comment: Speci men Type: BLOOD SPECIMENOrdering Facility: [facility] Address: [address] [place] [address] Performed By: #### 5 7021-8 ####[facility] LABCLIA [id number] [place] [address] Neutrophils/100 WBC (Bld) 55.6 % Normal [facility] Comment on above: Order Comment: Speci men Type: BLOOD SPECIMENOrdering Facility: [facility] Address: [address] [place] [address] Performed By: #### 5 7021-8 ####[facility] LABCLIA [id number] [place] [address] Nucleated RBC (Bld) [#/Vol] 10*3/uL Normal <0.01 [facility] Comment on above: Order Comment: Speci men Type: BLOOD SPECIMENOrdering Facility: [facility] Address: [address] [place] [address] Performed By: #### 5 7021-8 ####[facility] LABCLIA [id number] [place] [address] Nucleated RBC/100 WBC (Bld) [Ratio] 0.0 /100 WBC Normal [facility] Comment on above: Order Comment: Speci men Type: BLOOD SPECIMENOrdering Facility: [facility] Address: [address] [place] [address] Performed By: #### 5 7021-8 ####[facility] LABCLIA [id number] [place] [address] Platelet mean volume (Bld) [Entitic vol] 9.5 fL Normal 9.0-12.7 [facility] Comment on above: Order Comment: Speci men Type: BLOOD SPECIMENOrdering Facility: [facility] Address: [address] [place] [address] Performed By: #### 5 7021-8 ####[facility] LABCLIA [id number] [place] [address] Platelets (Bld) [#/Vol] 222 10*3/uL Normal 150-400 [facility] Comment on above: Order Comment: Speci men Type: BLOOD SPECIMENOrdering Facility: [facility] Address: [address] [place] [address] Performed By: #### 5 7021-8 ####[facility] LABCLIA [id number] [place] [address] RBC (Bld) [#/Vol] 4.83 10*6/uL Normal 4.20-6.00 [facility] Comment on above: Order Comment: Speci men Type: BLOOD SPECIMENOrdering Facility: [facility] Address: [address] [place] [address] Performed By: #### 5 7021-8 ####[facility] LABCLIA [id number] [place] [address] WBC (Bld) [#/Vol] 6.58 10*3/uL Normal 3.70-11.00 [facility] Comment on above: Order Comment: Speci men Type: BLOOD SPECIMENOrdering Facility: [facility] Address: [address] [place] [address] Performed By: #### 5 7021-8 ####[facility] LABCLIA [id number] [place] [address] Comprehensive metabolic 2000 panelon 06-23-2023 Albumin [Mass/Vol] 4.2 g/dL Normal 3.9-4.9 [facility] Comment on above: Order Comment: Speci men Type: BLOOD SPECIMEN Ordering Facility: [facility] Address: [address] [place] [address] Performed By: #### 2 4321-2 #### [facility] CLIA [id number] [address] [place] [address] ALP [Catalytic activity/Vol] 58 U/L Normal 38-113 [facility] Comment on above: Order Comment: Speci men Type: BLOOD SPECIMEN Ordering Facility: [facility] Address: [address] [place] [address] Performed By: #### 2 4321-2 #### [facility] CLIA [id number] [address] [place] [address] ALT [Catalytic activity/Vol] 10 U/L Normal 10-54 [facility] Comment on above: Order Comment: Speci men Type: BLOOD SPECIMEN Ordering Facility: [facility] Address: [address] [place], [place] [address] Performed By: #### 2 4321-2 #### [facility] CLIA [id number] [address] [place] [address] Anion gap [Moles/Vol] 11 mmol/L Normal 9-18 [facility] Comment on above: Order Comment: Speci men Type: BLOOD SPECIMEN Ordering Facility: [facility] Address: [address] [place] [address] Performed By: #### 2 4321-2 #### [facility] CLIA [id number] [address] [place] [address] AST [Catalytic activity/Vol] 17 U/L Normal 14-40 [facility] Comment on above: Order Comment: Speci men Type: BLOOD SPECIMEN Ordering Facility: [facility] Address: [address] [place] [address] Performed By: #### 2 4321-2 #### [facility] CLIA [id number] [address] [place] [address] Bilirubin [Mass/Vol] 0.7 mg/dL Normal 0.2-1.3 [facility] Comment on above: Order Comment: Speci men Type: BLOOD SPECIMEN Ordering Facility: [facility] Address: [address] [place] [address] Performed By: #### 2 4321-2 #### [facility] CLIA [id number] [address] [place] [address] Calcium [Mass/Vol] 11.2 mg/dL High 8.5-10.2 [facility] Comment on above: Order Comment: Speci men Type: BLOOD SPECIMEN [facility]ing [facility]: [facility] Address: [address] [place] [address] Performed By: #### 2 4321-2 #### [facility] CLIA [id number] [address] [place] [address] Chloride [Moles/Vol] 101 mmol/L Normal 97-105 [facility] Comment on above: Order Comment: Speci men Type: BLOOD SPECIMEN Ordering [facility]: [facility] Address: [address] [place] [address] Performed By: #### 2 4321-2 #### [facility] CLIA [id number] [address] [place] [address] CO2 [Moles/Vol] 31 mmol/L High 22-30 [facility] Comment on above: Order Comment: Speci men Type: BLOOD SPECIMEN Ordering [facility]: [facility] Address: [address] [place] [address] Performed By: #### 2 4321-2 #### [facility] CLIA [id number] [address] [place] [address] Creatinine [Mass/Vol] 1.06 mg/dL Normal 0.73-1.22 [facility] Comment on above: Order Comment: Speci men Type: BLOOD SPECIMEN Ordering [facility]: [facility] Address: [address] [place] [address] Performed By: #### 2 4321-2 #### [facility] CLIA [id number] [address] [place] [address] Creatinine and Glomerular filtration rate.predicted panel (S/P/Bld) 73 mL/min/1.73m??? Normal >=60 [facility] Comment on above: Order Comment: Speci men Type: BLOOD SPECIMEN Ordering Facility: [facility] Address: [address] [place] [address] Result Comment: Jessica mated Glomerular Filtration Rate [...] GFR. Performed By: #### 2 4321-2 #### [facility] CLIA [id number] [address] [place] [address] Glucose [Mass/Vol] 99 mg/dL Normal 74-99 [facility] Comment on above: Order Comment: Speci men Type: BLOOD SPECIMEN Ordering Facility: [facility] Address: [address], [place] [address] Result Comment: The [place] [employer] (ADA) provides guidance for [...] Standards of Medical Care in Diabetes 2016, [place] [employer]. Diabetes Care. 2016.39(Suppl 1). Performed By: #### 2 4321-2 #### [facility] CLIA [id number] [address] [place] [address] Potassium [Moles/Vol] 3.5 mmol/L Low 3.7-5.1 [facility] Comment on above: Order Comment: Speci men Type: BLOOD SPECIMEN Ordering Facility: [facility] Address: [address] [place] [address] Performed By: #### 2 4321-2 #### [facility] CLIA [id number] [address] [place] [address] Protein [Mass/Vol] 7.2 g/dL Normal 6.3-8.0 [facility] Comment on above: Order Comment: Speci men Type: BLOOD SPECIMEN Ordering Facility: [facility] Address: [address] [place] [address] Performed By: #### 2 4321-2 #### [facility] CLIA [id number] [address] [place] [address] Sodium [Moles/Vol] 143 mmol/L Normal 136-144 [facility] Comment on above: Order Comment: Speci men Type: BLOOD SPECIMEN Ordering Facility: [facility] Address: [address] [place] [address] Performed By: #### 2 4321-2 #### [facility] CLIA [id number] [address] [place], [place] [address] Urea nitrogen [Mass/Vol] 26 mg/dL High 9-24 [facility] Comment on above: Order Comment: Speci men Type: BLOOD SPECIMEN Ordering Facility: [facility] Address: [address] [place] [address] Performed By: #### 2 4321-2 #### [facility] CLIA [id number] [address] [place], [place] [address] PSA SerPl-mCncon 06-23-2023 Prostate specific Ag [Mass/Vol] 0.84 ng/mL Normal <2.60 [facility] Comment on above: Order Comment: Speci men Type: BLOOD SPECIMENOrdering Facility: [facility] Address: [address] [place] [address] Result Comment: Tota l PSA test methodology used is the Electrochemiluminescence Immunoassay by [employer]. Total PSA values by differing methodologies cannot be interchanged. Performed By: #### 2 857-1 ####[facility] LABCLIA [id number] [address] [facility] CNOVon 05-17-2023 CNOV Office Visit (RADTSA ) PERCYJM Dean ([id number]) 1945 M Date Time Provider Department 05/17/23 [...] General appeara (more content not included)... Normal [facility] PET+CT Guidance for localiza tion of [...] any questions regarding this interpretation, please call [phone]. If you are unable to reach us at the number above, please feel free to contact [facility] eRadiology at [phone]. DIVISION OF RADIOLOGY * * *Final Report* [...] and pelvis 07/09/2013 TECHNIQUE: 10.8 mCi of 12X-TURJjU-WDUB. The PET imaging was obtained between skull [...] the spine. DIVISION OF RADIOLOGY Provider, [facility] - 05/13/2023 * * *Final Report* * [...] and pelvis 07/09/2013 TECHNIQUE: 10.8 mCi of 13M-LZIXiF-FJEZ. The PET imaging was obtained between skull [...] any questions regarding this interpretation, please call [phone]. If you are unable to reach us at the number above, please feel free to contact [facility] eRadiology at [phone]. [facility] PET+CT Guidance for localiza tion of tumor of Whole body-- W 18F-FDG IVOrdered By: Ccf Provider on 05-13-2023 [facility] PET/CT PROSTATE WBon 04-15 AR PET/CT PROSTATE WB * * *Final Report* * * DATE OF EXAM: May 12 2023 3:06PM NRN 0093 - AR PET/CT PROSTATE WB / PROCEDURE REASON: Malignant neoplasm of prostate (HCC) * * * * Physician Interpretation * * * * RESULT: Ga-68 PSMA WHOLE BODY PET/CT SCAN HISTORY: Prostate cancer recurrence PREVIOUS COMPARISON PET/CT STUDY: 06/02/2022 OTHER COMPARISON: MRI 08/15/2022, CT abdomen and pelvis 07/09/2013 TECHNIQUE: 10.8 mCi of 10B-SPNImG-AZMC. The PET imaging was obtained between skull [...] any questions regarding this interpretation, please call [phone]. If you are unable to reach us at the number above, please feel free to contact [facility] eRadiology at [phone]. [id number] Normal [facility] PET+CT Guidance for localiza tion of tumor of Whole body-- W 18F-FDG Marisol 05-12-2023 Radiology Study observation (narrative) [facility] CNOVSPon 04-10-2023 CNOVSP Visit (SP) Office (H EMASA) JM BARROW ([id number]) 1945 M Date Time Provider Department 11/27/23 [...] he was seen by Dr. Robb at [facility] to discuss possible brachytherapy for [...] CATARACT, INSERT LENS,EX Bilateral 06/2019 Dr. Grimm [facility], [place] TONSILLECTOMY HX FAMILY HISTORY: FAMILY HISTORY Problem [...] Normal [facility] ([id number]) 1945 M Date Time Provider Department 04/10/23 Ace GUZMAN During your visit today, we recorded the following information about you: Teresa Williamson 04/10/2023 3:28 PM Signed This form is used for MAIN CAMPUS APPOINTMENTS ONLY. Is this request for a [facility] [place] PET scan appointment? Yes: Skin Lifter Bacon: Teresa Romero Requesting Person Dr guzman: Area Code + Phone/Pager: [phone] Who do we call to schedule this appointment? Other Contact: PSMA pet please message [facility] [place] Requesting Staff Dr guzman Area Code + Phone/Pager: [phone] PET Orders (A delay in scheduling will [...] PSMA Authorization date range: PSMA Primary Insurance: [employer]/General Specific Diagnosis: Prostate cancer (HCC) [C61] DX Imaging: PET Scan: 06/02/2022 PET Pathology: 02/14/2000 Pelvic lymph node biopsy ([facility], Dr. Doug Regalado) Metastatic prostate adenocarcinoma involving 1 of 3 lymph nodes (right obturator LN) PROSTATE GLAND, LEFT, LEVELS 1-4 , NEEDLE BIOPSIES ([id number], A-D) - PROSTATIC ADENOCARCINOMA, KITA SCORE 7 (4+3). Comment: Adenocarcinoma involves 60% of the needle biopsy specimens. Perineural invasion is present. 2. 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 or Aj AR SPECIAL STUDIES BRYCE Damion Haydena 04/11/2023 10:04 AM Signed Auth#:[id number] Date Range: 04-11-23 to 07-09-2023 [address]4632/PSMA- piflufolastat ([employer]arify) F-18 Ace Montoya INS Contact Number: Intake: online Case/Ref#: [id number] Notes: 04/11/2023 Authorized online via Sherie/Abdi routed to [place] and Umer for scheduling in [place] per patient's request Allergies As of Date: 04/10/2023 Noted Allergy Reaction CHLORHEXIDINE 05/21/2013 2 - Rash hibaclens [Other] 06/02/2011 2 - Rash Date Reviewed: 04/10/2023 Reviewed by: Vidhi Rico - Fully Assessed Reason for Visit: Nm Pet Request [[id number]] Prescriptions as of 04/12/2023 - simvastatin (ZOCOR) [...] Vitamin E, (more content not included)... Normal [facility] Prostate specific Ag [Mass/Vol] 0.67 ng/mL Normal <2.60 [facility] Comment on above: Order Comment: Speci men Type: BLOOD SPECIMENOrdering Facility: [facility] Address: [address] [place] [address] Result Comment: Tota l PSA test methodology used is the Electrochemiluminescence Immunoassay by [employer]. Total PSA values by differing methodologies cannot be interchanged. Performed By: #### 2 857-1 ####[facility] LAB[facility] [id number] [place] [address] [place] 25([place])D3 [facility] 25-hydroxyvitamin D3 [Mass/Vol] 63.9 ng/mL Normal 31.0-80.0 [facility] Comment on above: Order Comment: Speci men Type: BLOOD SPECIMEN Ordering Facility: [facility] Address: [address] [place] [address] Result Comment: Clas sification of 25 [place] Vitamin D status: Deficiency/Insufficiency: < or = 30 ng/ml. Sufficiency/Optimal Levels: 31-80 ng/mL Toxicity: > 100 ng/mL. Test performed by chemiluminescent immunoassay. Performed By: #### 1 989-3 #### [facility] CLIA [id number] [address] [place] [address] [place] HbA1c (Bld)on 02-15-2023 Average glucose Estimated from glycated hemoglobin (Bld) [Mass/Vol] 105 mg/dL Normal [facility] Comment on above: Order Comment: Speci men Type: BLOOD SPECIMEN Ordering Facility: [facility] Address: [address] [place] [address] Result Comment: eAG: (Estimated average glucose) is a calculated value from HgbA1c and is sales representative wire rope of the average blood glucose level in the last 2-3 month period. Performed By: #### 5 5454-3 #### [facility] CLIA [id number] [address] [place] [address] [place] HbA1c (Bld) [Mass fraction] 5.3 % Normal 4.3-5.6 [facility] Comment on above: Order Comment: Speci men Type: BLOOD SPECIMEN Ordering Facility: [facility] Address: [address] [place] [address] Result Comment: Amer ican Diabetes Association guidelines indicate that patients with HgbA1c in the range 5.7-6.4% are at increased risk for development of diabetes, and intervention by lifestyle modification may be beneficial. HgbA1c greater or equal to 6.5% is considered diagnostic of diabetes. Performed By: #### 5 5454-3 #### [facility] CLIA [id number] [address] [place] [address] IMMUNOFIXATION SCREEN, SERUM on 02-15-2023 MPA RESULT No M protein is identified. Normal No M protein is identified. [facility] Comment on above: Order Comment: Speci men Type: BLOOD SPECIMEN Ordering Facility: [facility] Address: [address] [place] [address] Performed By: #### I FESC #### [facility] CLIA [id number] [address] [place] [address] [place] STAFF REVIEW (MPA) Reviewed by Martin charles MD, Ph.D ([id number]) [facility] Comment on above: Order Comment: Speci men Type: BLOOD SPECIMEN Ordering Facility: [facility] Address: [address] [place] [address] Performed By: #### I FES #### [facility] CLIA [id number] [address] [place] [address] [place] IMMUNOGLOBULINS GAMon 2022 IgA [Mass/Vol] 281 mg/dL Normal 70-400 [facility] Comment on above: Order Comment: Speci men Type: BLOOD SPECIMEN Ordering Facility: [facility] Address: [address] [place] [address] Performed By: #### S ERIMM #### [facility] CLIA [id number] [facility] [place] [address] [place] IgG [Mass/Vol] 955 mg/dL Normal 700-1600 [facility] Comment on above: Order Comment: Speci men Type: BLOOD SPECIMEN Ordering Facility: [facility] Address: [address] [place] [address] Performed By: #### S ERIMM #### [facility] CLIA [id number] [address] [place] [address] [place] IgM [Mass/Vol] 90 mg/dL Normal 40-230 [facility] Comment on above: Order Comment: Speci men Type: BLOOD SPECIMEN Ordering Facility: [facility] Address: [address] [place] [address] Performed By: #### S ERIMM #### [facility] CLIA [id number] [address] [place] [address] [place] KAPPA/AREVALO,FREE,SERon 2022 Immunoglobulin light chains.kappa.free (S) [Mass/Vol] 41.1 mg/L High 3.3-19.4 [facility] Comment on above: Order Comment: Speci men Type: BLOOD SPECIMEN Ordering Facility: [facility] Address: [address] [place] [address] Result Comment: Rare ly, increased serum free light chains levels may not be detected or accurately quantified due to prozone phenomenon or in high viscosity samples using this immunoturbidimetric assay. Correlation with other laboratory results and clinical findings is recommended. The [place] Free Light Chain was performed using the Binding Site Optilite immunoturbidimetric method. Result obtained with different assay methods or kits cannot be used interchangeably. Performed By: #### K LFRS #### [facility] CLIA [id number] [address] [place] [address] [place] Immunoglobulin light chains.kappa/Immun oglobulin light chains.lambda (S) [Mass ratio] 2.00 High 0.26-1.65 [facility] Comment on above: Order Comment: Speci men Type: BLOOD SPECIMEN Ordering Facility: [facility] Address: [address] [place] [address] Performed By: #### K LFRS #### [facility] CLIA [id number] [address] [id number] [address] [place] Immunoglobulin light chains.lambda.free [Mass/Vol] 20.6 mg/L Normal 5.7-26.3 [facility] Comment on above: Order Comment: Speci men Type: BLOOD SPECIMEN Ordering Facility: [facility] Address: [address] [place] [address] Result Comment: Rare ly, increased serum free [...] interchangeably. Performed By: #### K LFRS #### [facility] CLIA [id number] [address] [place] [address] [place] MONOCLONAL PROT UR W/INTERPo n 02-15-2023 STAFF REVIEW ([facility]) Reviewed by Martin Rojo MD, Ph.D ([id number]) Normal [facility] Comment on above: Order Comment: Speci men Type: URINE SPECIMEN Ordering Facility: [facility] Address: [address] [place] [address] Performed By: #### U RMPA #### [facility] CLIA [id number] [address] [place] [address] [place] UMPA RESULT No M protein is identified. Normal No M protein is identified. [facility] Comment on above: Order Comment: Speci men Type: URINE SPECIMEN Ordering Facility: [facility] Address: [address] [place] [address] Performed By: #### U RMPA #### [facility] CLIA [id number] [address] [place] [address] [place] Methylmalonate SerPl-sCncon 02-15-2023 Methylmalonate [Moles/Vol] 0.14 umol/L Normal <=0.40 [facility] Comment on above: Order Comment: Speci men Type: BLOOD SPECIMEN Ordering Facility: [facility] Address: [address] [place] [address] Result Comment: This test was developed and its performance characteristics determined by [facility]'s [facility] (RT-PL[facility]). It has not been cleared or approved by the FDA. -[facility] is regulated under CLIA as qualified to perform high-complexity testing. This test is used for clinical purposes. It should not be regarded as investigational or for research. Performed By: #### 1 3964-2 #### [facility] CLIA [id number] [address] [facility] [id number] [address] [place] Vit B12 [facility] 023 Cobalamin (Vitamin B12) [Mass/Vol] 1889 pg/mL High 232-1245 [facility] Comment on above: Order Comment: Speci men Type: BLOOD SPECIMEN Ordering Facility: [facility] Address: [address] [place] [address] Performed By: #### 2 132-9 #### [facility] CLIA [id number] [address] [facility] [place] [address] [place] URINALYSIS, REFLEX MICROSCOP ICon 12-07-2022 Bacteria LM.HPF (Urine sed) [#/Area] Few Abnormal None Seen /HPF [facility] Bilirubin Ql (U) Negative Negative [facility] Clarity (Unsp spec) Cloudy Abnormal Clear [facility] Color (U) Yellow Yellow [facility] Epithelial cells LM.HPF (Urine sed) [#/Area] [...] sed) [#/Area] 3-5 /HPF Abnormal 0-3 /HPF [facility] Specific gravity (U) [Rel density] 1.024 1.005 - 1.030 [facility] Urobilinogen Ql (U) Negative Negative [facility] WBC LM.HPF (Urine sed) [#/Area] /[HPF] Abnormal 0-5 /HPF [facility] Office Visit (Cardiology)on 10-18-2022 Follow-up visit [...] of your visit. Follow up in 2-3 [facility] Chief Complaint JM BARROW is being [...] 1 TABLET DAILY DIRECTED AT BEDTIME Dulcolax [place] Laxative 5 MG Oral Tablet Delayed ReleaseTAKE [...] Signs Recorded: 18Oct2022 10:13AMRecorded: 18Oct2022 09:54AM Systolic Kajkxxa61, RUE, Sitting Diastolic Afcajvd58, RUE, Sitting Systolic Ufhxzsrk27, RUE, Standing Diastolic Nkzhoktr81, RUE, Standing Heart Rate Eweftju82, R Radial Heart Rate Asqexhrq42, R Radial Heart Rate58, R Radial Vjajqmku06, LUE, Sitting Ndpzqayis50, LUE, Sitting Height6 ft Emjcqn772 lb BMI Kzcqidqwye47.82 kg/m2 BSA Calculated2.05 Tobacco Usea) Yes Patient encouraged to stop using tobacco productsYes Falls Screening (more content not included)... Normal [facility] Tobacco Screening.on 023 Fall risk assessment a) No falls within the last year [facility] [employer] k 600 DO Work Phone: Tobacco use status CPHS a) Yes [facility] al[facility] incNort[facility] CenterShaser k 600 DO Work Phone: [phone] Tobacco Screening. Yes [facility] Centerwal k 600 DO Work Phone: No Panel Informationon 09-13 Normal [facility] [place] [address] DO Work Phone: 7.9\S\7.9 Normal [facility] [place] [address] DO Work Phone: Comment on above: Reference range: AM 6 - 24 ug/dl PM <10 ug/dlPERFORMED BY:[place] [id number] [place], [place] [phone] MEDICAL DIRECTORGEORGINA XIAO M.D. Office Visit (Cardiology)on [...] Abdomen; Status:Hold For - Scheduling,Retrospective Authorization; Requested for:[id number]; Patient taking Metformin or Derivatives? : No Radiologist to Determine Optimal Study : Y What are the patient's signs and symptoms? : htn CT Angio Pelvis; Status:Hold For - Scheduling,Retrospective Authorization; Requested for:[id number]; Patient taking Metformin or Derivatives? : No [...] we can help. You may also call [phone] StyleNOW for free resources and assistance.; Status:Complete - [...] I will today evaluate his possibility of Harrison's disease. In the future we may consider [...] TABLET TWICE (more content not included)... Normal [facility] Tobacco Screening.on 023 Adult depression screening assessment No -[facility] [address] DO Work Phone: Fall risk assessment a) No falls within the last year [facility] Heart-Rj [place]is 250 DO Work Phone: Tobacco use status CPHS a) Yes [facility] HeartFawn hollis 250 DO Work Phone: Tobacco Screening. Yes [facility] [address] DO Work Phone: ALLIED HEALTHon 08-15-2022 ALLIED HEALTH HNO ID: [id number] Author: RT Alyssia(R) Service: Radiology Author Type: [...] RT Alyssia(R) August 15, 2022 1:43 PM [facility] MRI PROSTATE WO/W IVCONon MRI PROSTATE WO/W IVCON * * *Final Report* * * DATE OF EXAM: Aug 15 2022 1:44PM [facility] 0751 - MRI PROSTATE WO/W IVCON / PROCEDURE REASON: Cancer of prostate w/med recur risk (T2b-c or Kita 7 or PSA 10-20) ([facility]) * * * * Physician Interpretation * [...] volume were obtained using a semi-automated software ([employer]). CONTRAST: IV: 16 cc of Dotarem. COMPARISON: [...] of suspicion for clinically significant prostate cancer ([place] score 3 + 4 or higher). PI-RADS v2.1 Assessment Categories: PI-RADS 1: Clinically significant cancer is highly unlikely PI-RADS 2: Clinically significant cancer is unlikely PI-RADS 3: Clinically significant cancer is equivocal PI-RADS 4: Clinically significant cancer is likely PI-RADS 5: Clinically significant cancer is highly likely Senior Telecommunications Engineer: IVA Transcribe Date/Time: Aug 15 2022 2:35P Dictated by : SARAI AYERS DO This examination was interpreted and the report reviewed and electronically signed by: CINTIA SOLORZANO MD on Aug 15 2022 5:43PM EST [id number] Normal [facility] NURSING PROGon 08-15-2022 NURSING PROG HNO ID: [id number] Author: Keila Hsu RN Service: PICC Team [...] DATE: August 15, 2022 TIME: 12:43 PM [facility] CBC AUTO DIFFon 08-01-2022 BASO # 0.1 103/ul Normal 0.0-0.1 [facility] Comment on above: Performed By: #### C SORAIDA ONOFRE #### [facility] [address] [place] [address] Dr. Samantha Samuels Basophils/100 WBC (Bld) 1.0 % Normal 0.2-2.0 [facility] Comment on above: Performed By: #### C SORAIDA ONOFRE #### [facility] [address] [place] [address] Dr. Samantha Samuels EO # 0.5 103/ul Normal 0.0-0.[address] [facility] Comment on above: Performed By: #### C SORAIDA ONOFRE #### [facility] [address] [place] [address] Dr. Samantha Samuels Eosinophils/100 WBC (Bld) 7.9 % Critically high 0.9-7.0 [facility] Comment on above: Performed By: #### C PHYLLIS ONOFREDM #### [facility] [address] [place] [address] Dr. Samantha Samuels Erythrocyte distribution width (RBC) [Ratio] 12.8 % Normal 11.0-15.[address] [facility] Comment on above: Performed By: #### C SORAIDA ONOFRE #### [facility] [address] [place] [address] Dr. Samantha Samuels Hematocrit (Bld) [Volume fraction] 40.1 % Critically low 42.0-54.[address] [facility] Comment on above: Performed By: #### C SORAIDA ONOFRE #### [facility] [address] [place] [address] Dr. Samantha Samuels Hemoglobin (Bld) [Mass/Vol] 13.9 g/dL Critically low 14.0-18.[address] [facility] Comment on above: Performed By: #### C PHYLLIS ONOFREDM #### [facility] [address] [place] [address] Dr. Samantha Samuels IG # 0.01 10e3/ul Normal 0.00-0.[address] [facility] Comment on above: Performed By: #### C PHYLLIS ONOFREDM #### [facility] [address] [place] [address] Dr. Samantha Samuels IG % 0.2 % Normal 0.0-0.[address] [facility] Comment on above: Performed By: #### C JEMIMA, PHYLLISDM #### [facility] [address] [place] [address] Dr. Samantha Samuels LYMPH # 1.8 103/ul Normal 1.2-3.[address] [facility] Comment on above: Performed By: #### C SORAIDA ONOFRE #### [facility] [address] [place] [address] [address] Samantha Samuels Lymphocytes/100 WBC (Bld) 28.8 % Normal 20.5-60.[address] [facility] Comment on above: Performed By: #### C MP, CMADM #### [facility] [address] [place] [address] Dr. Samantha Samuels MANUAL DIFF REQ NO Normal [facility] Comment on above: Performed By: #### C MP, CMADM #### [facility] [address] [place] [address] Dr. Samantha Samuels MCH (RBC) [Entitic mass] 32.3 pg Normal 25.9-34.[address] [facility] Comment on above: Performed By: #### C MP, CMADM #### [facility] [address] [place] [address] Dr. Samantha Samuels MCHC (RBC) [Mass/Vol] 34.7 g/dL Normal 29.9-35.[address] [facility] Comment on above: Performed By: #### C MP, CMADM #### [facility] [address] [place] [address] Dr. Samantha Samuels MCV (RBC) [Entitic vol] 93.0 fL Normal 80.0-94.0 [facility] Comment on above: Performed By: #### C MP, CMADM #### [facility] [address] [place] [address] Dr. Samantha Samuels MONO # 0.6 103/ul Normal 0.3-0.[address] [facility] Comment on above: Performed By: #### C MP, CMADM #### [facility] [address] [place] [address] Dr. Samantha Samuels Monocytes/100 WBC (Bld) 9.7 % Normal 1.7-12.[address] [facility] Comment on above: Performed By: #### C MP, CMADM #### [facility] [address] [place] [address] Dr. Samantha Samuels NEUT # 3.3 103/ul Normal 1.4-6.[address] [facility] Comment on above: Performed By: #### C MP, CMADM #### [facility] [address] [address] [address] Samantha Samuels Neutrophils/100 WBC (Bld) 52.4 % Normal 43.0-75.0 [facility] Comment on above: Performed By: #### C MP, CMADM #### [facility] [address] [address] [address] Samantha Samuels Platelet mean volume (Bld) [Entitic vol] 9.4 fL Critically low 9.5-13.5 [facility] Comment on above: Performed By: #### C MP, CMADM #### [facility] [address] [address] [address] Samantha Samuels PLT 227 103/ul Normal 150-450 [facility] Comment on above: Performed By: #### C MP, CMADM #### [facility] [address] [address] [address] Samantha Samuels RBC 4.31 106/ul Critically low 4.70-6.10 [facility] Comment on above: Performed By: #### C MP, CMADM #### [facility] [address] [address] [address] Samantha Samuels WBC 6.3 103/ul Normal 4.0-11.0 [facility] Comment on above: Performed By: #### C MP, CMADM #### [facility] [address] [address] [address] Samantha Samuels [facility]14 SARS-CoV-2 (COVID-19) RNA DELIA+probe Ql (Unsp spec) Not detected Normal NOT DETECTED [facility] Comment on above: Result Comment: When [...] for this test is supported by the [place] of Health and Human Service's declaration that [...] longer be used). Performed By: #### C [facility] #### [facility] [address] [place] [address] Dr. Samantha Samuels PROF 14(COMP METB)on 023 Albumin [Mass/Vol] 3.8 g/dL Normal 3.4-5.0 [facility] Comment on above: Performed By: #### C PHYLLIS ONOFREDM #### [facility] [address] [place] [address] Dr. Samantha Samuels Albumin/Globulin [Mass ratio] 1.2 {ratio} Normal [facility] Comment on above: Performed By: #### C JEMIMA CMADM #### [facility] [address] [place] [address] Dr. Samantha Samuels ALP [Catalytic activity/Vol] 73 U/L Normal 46-116 [facility] Comment on above: Performed By: #### C JEMIMA, CMADM #### [facility] [address] [place] [address] Dr. Samantha Samuels ALT [Catalytic activity/Vol] 16 U/L Normal 16-63 [facility] Comment on above: Performed By: #### C JEMIMA, CMADM #### [facility] [address] [place] [address] Dr. Samantha Samuels Anion gap [Moles/Vol] 9.0 mmol/L Normal [facility] Comment on above: Performed By: #### C JEMIMA, CMADM #### [facility] [address] [place] [address] Dr. Samantha Samuels AST [Catalytic activity/Vol] 18 U/L Normal 15-37 [facility] Comment on above: Performed By: #### C JEMIMA, CMADM #### [facility] [address] [address] [address] Samantha Samuels Bilirubin [Mass/Vol] 0.4 mg/dL Normal 0.2-1.0 [facility] Comment on above: Performed By: #### C JEMIMA, CMADM #### [facility] [address] [place] [address] Dr. Samantha Samuels Calcium [Mass/Vol] 9.5 mg/dL Normal 8.5-10.1 [facility] Comment on above: Performed By: #### C MP, CMADM #### [facility] [address] [place] [address] Dr. Samantha Samuels Chloride [Moles/Vol] 106 mmol/L Normal 98-[address] [facility] Comment on above: Performed By: #### C JEMIMA, CMADM #### [facility] [address] [place] [address] Dr. Samantha Samuels CO2 [Moles/Vol] 31.1 mmol/L Normal 21.0-32.0 [facility] Comment on above: Performed By: #### C JEMIMA, CMADM #### [facility] [address] [place] [address] Dr. Samantha Samuels Creatinine [Mass/Vol] 0.83 mg/dL Normal 0.70-1.30 [facility] Comment on above: Performed By: #### C JEMIMA, CMADM #### [facility] [address] [place] [address] Dr. Samantha Samuels EGFR-AF MONTENEGRIN >60 Normal >=60 [facility] Comment on above: Performed By: #### C JEMIMA, CMADM #### [facility] [address] [place] [address] Dr. Samantha Samuels EGFR-NON AF MONTENEGRIN >60 Normal >=60 [facility] Comment on above: Performed By: #### C JEMIMA, CMADM #### [facility] [address] [place] [address] Dr. Samantha Samuels Globulin (S) [Mass/Vol] 3.2 g/dL Normal [facility] Comment on above: Performed By: #### C JEMIMA, CMADM #### [facility] [address] [address] [address] Samantha Samuels Glucose [Mass/Vol] 100 mg/dL Normal 74-106 [facility] Comment on above: Performed By: #### C JEMIMA, PHYLLISDM #### [facility] [address] [address] [address] Samantha Samuels Potassium [Moles/Vol] 4.1 mmol/L Normal 3.5-5.[address] [facility] Comment on above: Performed By: #### C JEMIMA, CMADM #### [facility] [address] [address] [address] Samantha Samuels Protein [Mass/Vol] 7.0 g/dL Normal 6.4-8.2 [facility] Comment on above: Performed By: #### C JEMIMA, CMADM #### [facility] [address] [address] [address] Samantha Samuels Sodium [Moles/Vol] 142 mmol/L Normal 136-145 [facility] Comment on above: Performed By: #### C JEMMIA, CMADM #### [facility] [address] [address] [address] Samantha Samuels Urea nitrogen [Mass/Vol] 21.0 mg/dL Critically high 7.0-18.0 [facility] Comment on above: Performed By: #### C JEMIMA, CMADM #### [facility] [address] [address] [address] Samantha Samuels Urea nitrogen/Creatinin e [Mass ratio] 25.3 mg/mg Normal [facility] Comment on above: Performed By: #### C JEMIMA, CMADM #### [facility] [address] [address] [address] Samantha Samuels CARDIAC DAWNA ADMITon 023 CK [Catalytic activity/Vol] 101 U/L Normal 39-[address] [facility] Comment on above: Performed By: #### C JEMIMA, CMADM #### [facility] [address] [address] [address] Samantha Samuels CK.MB [Mass/Vol] 2.00 ng/mL Normal <=3.60 [facility] Comment on above: Performed By: #### C MP, CMADM #### [facility] [address] [address] [address] Samantha Samuels HSTROP 5.3 pg/mL Normal 4.0-76.1 [facility] Comment on above: Result Comment: CUT- OFF POINTS HAVE BEEN ESTABLISHED BASED ON THE FOURTH UNIVERSAL DEFINITIONS OF MYOCARDIAL INFARCTION. THE UPPER REFERENCE LIMIT (URL) OF TROPONIN, DEFINED THE 99TH PERCENTILE OF cTnI DISTRIBUTION IN A REFERENCE POPULATION, HAS BEEN CONFIRMED THE DECISION THRESHOLD FOR SD DIAGNOSIS. Performed By: #### C MP, CMADM #### [facility] [address] [address] [address] Samantha Samuels JOSE 54 ng/mL Normal 16-96 [facility] Comment on above: Performed By: #### C JEMIMA, CMADM #### [facility] [address] [address] [address] Samantha Samuels CBC AUTO DIFFon 07-31-2022 BASO # 0.1 103/ul Normal 0.0-0.1 [facility] Comment on above: Performed By: #### C JEMIMA, CMADM #### [facility] [address] [address] [address] Samantah Samuels Basophils/100 WBC (Bld) 1.0 % Normal 0.2-2.0 [facility] Comment on above: Performed By: #### C JEMIMA, CMADM #### [facility] [address] [address] [address] Samantha Samuels EO # 0.6 103/ul Normal 0.0-0.[address] [facility] Comment on above: Performed By: #### C JEMIMA, CMADM #### [facility] [address] [address] [address] Samantha Samuels Eosinophils/100 WBC (Bld) 9.4 % Critically high 0.9-7.0 [facility] Comment on above: Performed By: #### C MP, CMADM #### [facility] [address] [address] [address] Samantha Samuels Erythrocyte distribution width (RBC) [Ratio] 12.7 % Normal 11.0-15.0 [facility] Comment on above: Performed By: #### C JEMIMA, PHYLLISDM #### [facility] [address] [place] [address] Dr. Samantha Samuels Hematocrit (Bld) [Volume fraction] 39.7 % Critically low 42.0-54.0 [facility] Comment on above: Performed By: #### C JEMIMA, PHYLLISDM #### [facility] [address] [place] [address] Dr. Samantha Samuels Hemoglobin (Bld) [Mass/Vol] 13.7 g/dL Critically low 14.0-18.0 [facility] Comment on above: Performed By: #### C SORAIDA ONOFRE #### [facility] [address] [place] [address] Dr. Samantha Samuels IG # 0.01 10e3/ul Normal 0.00-0.03 [facility] Comment on above: Performed By: #### C SORAIDA ONOFRE #### [facility] [address] [place] [address] Dr. Samantha Samuels IG % 0.2 % Normal 0.0-0.5 [facility] Comment on above: Performed By: #### C SORAIDA ONOFRE #### [facility] [address] [place] [address] Dr. Samantha Samuels LYMPH # 2.2 103/ul Normal 1.2-3.[address] [facility] Comment on above: Performed By: #### C SORAIDA ONOFRE #### [facility] [address] [place] [address] Dr. Samantha Samuels Lymphocytes/100 WBC (Bld) 36.8 % Normal 20.5-60.[address] [facility] Comment on above: Performed By: #### C SORAIDA ONOFRE #### [facility] [address] [place] [address] Dr. Samantha Samuels MANUAL DIFF REQ NO Normal [facility] Comment on above: Performed By: #### C PHYLLIS ONOFREDM #### [facility] [address] [place] [address] Dr. Samantha Samuels MCH (RBC) [Entitic mass] 32.2 pg Normal 25.9-34.[address] [facility] Comment on above: Performed By: #### C JEMIMA, CMADM #### [facility] [address] [place] [address] Dr. Samantha Samuels MCHC (RBC) [Mass/Vol] 34.5 g/dL Normal 29.9-35.[address] [facility] Comment on above: Performed By: #### C MP, CMADM #### [facility] [address] [place] [address] Dr. Samantha Samuels MCV (RBC) [Entitic vol] 93.2 fL Normal 80.0-94.[address] [facility] Comment on above: Performed By: #### C JEMIMA, PHYLLISDM #### [facility] [address] [place] [address] Dr. Samantha Samuels MONO # 0.6 103/ul Normal 0.3-0.[address] [facility] Comment on above: Performed By: #### C JEMIMA, PHYLLISDM #### [facility] [address] [place] [address] Dr. Samantha Samuels Monocytes/100 WBC (Bld) 10.9 % Normal 1.7-12.[address] [facility] Comment on above: Performed By: #### C JEMIMA, PHYLLISDM #### [facility] [address] [place] [address] Dr. Samantha Samuels NEUT # 2.5 103/ul Normal 1.4-6.[address] [facility] Comment on above: Performed By: #### C JEMIMA, CMADM #### [facility] [address] [place] [address] Dr. Samantha Samuels Neutrophils/100 WBC (Bld) 41.7 % Critically low 43.0-75.[address] [facility] Comment on above: Performed By: #### C JEMIMA, CMADM #### [facility] [address] [place] [address] Dr. Samantha Samuels Platelet mean volume (Bld) [Entitic vol] 9.3 fL Critically low 9.5-13.[address] [facility] Comment on above: Performed By: #### C JEMIMA, CMADM #### [facility] [address] [place], [place] [address] Dr. Samantha Samuels PLT 225 103/ul Normal 150-[address] [facility] Comment on above: Performed By: #### C JEMIMA, PHYLLISDM #### [facility] [address] [place], [place] [address] Dr. Samanhta Samuels RBC 4.26 106/ul Critically low 4.70-6.10 [facility] Comment on above: Performed By: #### C JEMIMA, PHYLLISDM #### [facility] [address] [place], [place] [address] Dr. Samantha Samuels WBC 5.9 103/ul Normal 4.0-11.0 [facility] Comment on above: Performed By: #### C JEMIMA, PHYLLISDM #### [facility] [address] [place], [place] [address] HEAD WO CONon [...] RONDA ALBRIGHT Date: 2022-07-31 20:[address] [facility] PROF 14(COMP METB)on 023 Albumin [Mass/Vol] 3.8 g/dL Normal 3.4-5.0 [facility] Comment on above: Performed By: #### C MP, CMADM #### [facility] [address] [address] [address] Samantha Samuels Albumin/Globulin [Mass ratio] 1.2 {ratio} Normal [facility] Comment on above: Performed By: #### C MP, CMADM #### [facility] [address] [address] [address] Samantha Samuels ALP [Catalytic activity/Vol] 61 U/L Normal 46-116 [facility] Comment on above: Performed By: #### C MP, CMADM #### [facility] [address] [address] [address] Samantha Samuels ALT [Catalytic activity/Vol] 18 U/L Normal 16-63 [facility] Comment on above: Performed By: #### C MP, CMADM #### [facility] [address] [address] [address] Samantha Samuels Anion gap [Moles/Vol] 8.0 mmol/L Normal [facility] Comment on above: Performed By: #### C MP, CMADM #### [facility] [address] [address] [address] Samatnha Samuels AST [Catalytic activity/Vol] 18 U/L Normal 15-37 [facility] Comment on above: Performed By: #### C MP, CMADM #### [facility] [address] [address] [address] Samantha Samuels Bilirubin [Mass/Vol] 0.4 mg/dL Normal 0.2-1.0 [facility] Comment on above: Performed By: #### C MP, CMADM #### [facility] [address] [address] [address] Samantha Samuels Calcium [Mass/Vol] 9.3 mg/dL Normal 8.5-10.1 [facility] Comment on above: Performed By: #### C MP, CMADM #### [facility] [address] [address] [address] Samantha Samuels Chloride [Moles/Vol] 105 mmol/L Normal 98-[address] [facility] Comment on above: Performed By: #### C MP, CMADM #### [facility] [address] [address] [address] Samantha Samuels CO2 [Moles/Vol] 33.2 mmol/L Critically high 21.0-32.0 [facility] Comment on above: Performed By: #### C MP, CMADM #### [facility] [address] [address] [address] Samantha Samuels Creatinine [Mass/Vol] 0.74 mg/dL Normal 0.70-1.30 [facility] Comment on above: Performed By: #### C MP, CMADM #### [facility] [address] [address] [address] Samantha Samuels EGFR-AF MONTENEGRIN >60 Normal >=60 [facility] Comment on above: Performed By: #### C MP, CMADM #### [facility] [address] [address] [address] Samantha Samuels EGFR-NON AF MONTENEGRIN >60 Normal >=60 [facility] Comment on above: Performed By: #### C MP, CMADM #### [facility] [address] [address] [address] Samantha Samuels Globulin (S) [Mass/Vol] 3.2 g/dL Normal [facility] Comment on above: Performed By: #### C MP, CMADM #### [facility] [address] [address] [address] Samantha Samuels Glucose [Mass/Vol] 90 mg/dL Normal 74-106 [facility] Comment on above: Performed By: #### C MP, CMADM #### [facility] [address] [address] [address] Samantha Samuels Potassium [Moles/Vol] 4.2 mmol/L Normal 3.5-5.[address] [facility] Comment on above: Performed By: #### C MP, CMADM #### [facility] [address] [address] [address] Samantha Samuels Protein [Mass/Vol] 7.0 g/dL Normal 6.4-8.2 [facility] Comment on above: Performed By: #### C MP, CMADM #### [facility] [address] [address] [address] Samantha Samuels Sodium [Moles/Vol] 142 mmol/L Normal 136-145 [facility] Comment on above: Performed By: #### C MP, CMADM #### [facility] [address] [address] [address] Samantha Samuels Urea nitrogen [Mass/Vol] 18.0 mg/dL Normal 7.0-18.0 [facility] Comment on above: Performed By: #### C MP, CMADM #### [facility] [address] [address] [address] Samantha Samuels Urea nitrogen/Creatinin e [Mass ratio] 24.3 mg/mg Normal [facility] Comment on above: Performed By: #### C MP, CMADM #### [facility] [address] [address] [address] Samantha Samuels PET+CT Guidance for localiza [...] any questions regarding this interpretation, please call [phone]. If you are unable to reach us at the number above, please feel free to contact [facility] at [phone]. DIVISION OF RADIOLOGY * * *Final Report* * * DATE OF EXAM: Jun 02 2022 3:09PM NRN [id number] - NM PET/CT PROSTATE WB / PROCEDURE REASON: multiple diagnoses * * * * Physician Interpretation * * * * RESULT: [id number] WHOLE BODY PET/CT SCAN HISTORY: 76-year-old man prostate cancer, rising PSA COMPARISON: CT 09/11/2015 TECHNIQUE: 10.8 mCi of [id number]. The PET imaging was obtained between SKULL [...] to degenerative changes. DIVISION OF RADIOLOGY Provider, [facility] - 06/03/2022 * * *Final Report* * * DATE OF EXAM: Jun 02 2022 3:09PM NRN [id number] - NM PET/CT PROSTATE WB / PROCEDURE REASON: multiple diagnoses * * * * Physician Interpretation * * * * RESULT: [id number] WHOLE BODY PET/CT SCAN HISTORY: 76-year-old man prostate cancer, rising PSA COMPARISON: CT 09/11/2015 TECHNIQUE: 10.8 mCi of [id number]. The PET imaging was obtained between SKULL [...] any questions regarding this interpretation, please call [phone]. If you are unable to reach us at the number above, please feel free to contact [facility] at [phone]. [facility] PET+CT Guidance for localiza tion of tumor of Whole body-- W 18F-FDG IVOrdered By: [facility] Provider on 06-03-2022 [facility] PSA/PROSTSPECAG DIAGon 06-03 Prostate specific Ag [Mass/Vol] 0.50 ng/mL NINF - 2.60 ng/mL [facility] Comment on above: Total PSA test metho dology used is the Electrochemiluminescence Immunoassay by [employer]. Total PSA values by differing methodologies cannot be interchanged. Prostate specific Ag [Mass/V ol]on 06-03-2022 Interpretation and review of laboratory results Normal [facility] TESTOSTERONE TOTALon 023 Testosterone [Mass/Vol] ng/dL Low 193 - 824 ng/dL [facility] Comment on above: A testosterone level in the 193-320 ng/dL range with associated clinical symptoms is considered low and may indicate hypogonadism (from NEJM 2010 363:123-135). Results >320 ng/dL are considered normal. Result rechecked. Testosterone [Mass/Vol]on Interpretation and review of laboratory results Abnormal [facility] PET+CT Guidance for localiza tion of tumor of Whole body-- W 18F-FDG Marisol 06-02-2022 Radiology Study observation (narrative) [facility] CALCIUMon 05-17-2022 Calcium [Mass/Vol] 9.4 mg/dL Normal 8.5-10.1 [facility] Comment on above: Performed By: #### C SORAIDA ONOFRE #### [facility] [address] [place] [address] Dr. Samantha Samuels Covid-19 PCR ([facility])on SARS-CoV-2 (COVID-19) RNA DELIA+probe Ql (Unsp spec) Not detected Normal NOT DETECTED [facility] Comment on above: Result Comment: This test is not yet approved or cleared by the [place] FDA. When there are no FDA-approved or cleared tests available, and other criteria are met, FDA can make tests available under an emergency access mechanism called an Emergency Use Authorization (EUA). The EUA for this test is supported by the Coding Analyst of Health and Human Service's (HHS's) declaration [...] Performed By: #### C JEMIMA, SORAIDA #### [facility] [address] [place] [address] Dr. Samantha Samuels INFLUENZA A AND B AGon 05-17 INFLUANEGH SEE BELOW Normal [facility] Comment on above: Result Comment: Nega tive for Flu A protein angiten. Infection due to Flu A cannot be ruled out. Flu A angiten in the sample may be below the detection limit of the test. Performed By: #### C MP, CMADM #### [facility] [address] [place] [address] Dr. Samantha Samuels [facility] SEE BELOW Normal [facility] Comment on above: Result Comment: Nega tive for Flu B protein antigen. Infection due to Flu B cannot be ruled out. Flu B antigen in the sample may be below the detection limit of the test. Performed By: #### C MP, CMADM #### [facility] [address] [place] [address] Dr. Samantha Samuels INFLUENZA A AG Negative Normal NEGATIVE SEE COMMENT [facility] Comment on above: Performed By: #### C MP, CMADM #### [facility] [address] [place] [address] Dr. Samantha Samuels INFLUENZA B AG Negative Normal NEGATIVE SEE COMMENT [facility] Comment on above: Performed By: #### C JEMIMA, CMADM #### [facility] [address] [place] [address] Dr. Samantha Samuels NM STRESS/REST MULTIon 03-24 NM STRESS/REST MULTI Patient: JM BARROW Exam Date: 03/24/2022 : 1945 Gender:M Ordering : DR ARLINE OROSCO . Admission #: [id number] Family : Order #: [id number] CLICK HERE TO VIEW EXAM RADIOLOGY REPORT [...] LOCATION: Basal inferoseptal. Mid-anterior. Mid-inferoseptal. Apical anterior. [place]. SIZE: Large (5 or more segments). SEVERITY: [...] MD on 03/24/2022 at 13:00 Normal [facility] CT LUNG CANCER SCREENINGon 1 [...] SKINNY VILLAR Date: 2022-03-21 07:45 Normal [facility] INSULINon 03-19-2022 Insulin 5.9 uIU/mL Normal 2.6-24.[address] [facility] Comment on above: Performed By: #### C JEMIMA, CMADM #### [facility] [address] [place] [address] Dr. Samantha Samuels CBC AUTO DIFFon 03-18-2022 BASO # 0.1 103/ul Normal 0.0-0.[address] [facility] Comment on above: Performed By: #### C MP, CMADM #### [facility] [address] [place] [address] Dr. Samantha Samuels Basophils/100 WBC (Bld) 1.0 % Normal 0.2-2.0 [facility] Comment on above: Performed By: #### C JEMIMA, CMADM #### [facility] [address] [place] [address] Dr. Samantha Samuels EO # 0.7 103/ul Normal 0.0-0.7 [facility] Comment on above: Performed By: #### C JEMIMA, CMADM #### [facility] [address] [place] [address] Dr. Samantha Samuels Eosinophils/100 WBC (Bld) 9.8 % Critically high 0.9-7.0 [facility] Comment on above: Performed By: #### C JEMIMA, CMADM #### [facility] [address] [place] [address] Dr. Samantha Samuels Erythrocyte distribution width (RBC) [Ratio] 12.7 % Normal 11.0-15.0 [facility] Comment on above: Performed By: #### C JEMIMA, CMADM #### [facility] [address] [place] [address] Dr. Samantha Samuels Hematocrit (Bld) [Volume fraction] 41.7 % Critically low 42.0-54.[address] [facility] Comment on above: Performed By: #### C JEMIMA, CMADM #### [facility] [address] [place] [address] Dr. Samantha Samuels Hemoglobin (Bld) [Mass/Vol] 14.2 g/dL Normal 14.0-18.[address] [facility] Comment on above: Performed By: #### C MP, CMADM #### [facility] [address] [address] [address] Samantha Samuels IG # 0.01 10e3/ul Normal 0.00-0.03 [facility] Comment on above: Performed By: #### C MP, CMADM #### [facility] [address] [address] [address] Samantha Samuels IG % 0.1 % Normal 0.0-0.[address] [facility] Comment on above: Performed By: #### C MP, CMADM #### [facility] [address] [address] [address] Samantha Samuels LYMPH # 1.7 103/ul Normal 1.2-3.[address] [facility] Comment on above: Performed By: #### C MP, CMADM #### [facility] [address] [address] [address] Samantha Samuels Lymphocytes/100 WBC (Bld) 24.7 % Normal 20.5-60.0 [facility] Comment on above: Performed By: #### C MP, CMADM #### [facility] [address] [address] [address] Samantha Samuels MANUAL DIFF REQ NO Normal [facility] Comment on above: Performed By: #### C MP, CMADM #### [facility] [address] [address] [address] Samantha Samuels MCH (RBC) [Entitic mass] 31.7 pg Normal 25.9-34.0 [facility] Comment on above: Performed By: #### C MP, CMADM #### [facility] [address] [address] [address] Samantha Samuels MCHC (RBC) [Mass/Vol] 34.1 g/dL Normal 29.9-35.2 [facility] Comment on above: Performed By: #### C MP, CMADM #### [facility] [address] [address] [address] Samantha Samuels MCV (RBC) [Entitic vol] 93.1 fL Normal 80.0-94.0 [facility] Comment on above: Performed By: #### C MP, CMADM #### [facility] [address] [address] [address] Samantha Samuels MONO # 0.6 103/ul Normal 0.3-0.8 [facility] Comment on above: Performed By: #### C MP, CMADM #### [facility] [address] [address] [address] Samantha Samuels Monocytes/100 WBC (Bld) 8.6 % Normal 1.7-12.0 [facility] Comment on above: Performed By: #### C MP, CMADM #### [facility] [address] [place] [address] Dr. Samantha Samuels NEUT # 3.7 103/ul Normal 1.4-6.5 [facility] Comment on above: Performed By: #### C JEMIMA, CMADM #### [facility] [address] [place] [address] Dr. Samantha Samuels Neutrophils/100 WBC (Bld) 55.8 % Normal 43.0-75.0 [facility] Comment on above: Performed By: #### C JEMIMA, CMADM #### [facility] [address] [place] [address] Dr. Samantha Samuels Platelet mean volume (Bld) [Entitic vol] 8.8 fL Critically low 9.5-13.5 [facility] Comment on above: Performed By: #### C JEMIMA, CMADM #### [facility] [address] [place] [address] Dr. Samantha Samuels PLT 228 103/ul Normal 150-[address] [facility] Comment on above: Performed By: #### C JEMIMA, CMADM #### [facility] [address] [place] [address] Dr. Samantha Samuels RBC 4.48 106/ul Critically low 4.70-6.10 [facility] Comment on above: Performed By: #### C JEMIMA, CMADM #### [facility] [address] [place] [address] Dr. Samantha Samuels WBC 6.7 103/ul Normal 4.0-11.0 [facility] Comment on above: Performed By: #### C MP, CMADM #### [facility] [address] [place] [address] Dr. Samantha Samuels GLYCOHEMOGLOBIN A1Con 2021 ADA RECOMMENDATION SEE BELOW Normal [facility] Comment on above: Result Comment: ADA RECOMMENDED LIMIT 4.0 - 6.0 ADA THERAPEUTIC TARGET < 7.0 ACTION SUGGESTED > 7.0 Performed By: #### A 1C #### [facility] [address] [place] [address] Dr. Samantha Samuels Glucose [Mass/Vol] 103 mg/dL Normal [facility] Comment on above: Performed By: #### A 1C #### [facility] [address] [place] [address] Dr. Samantha Samuels HbA1c (Bld) [Mass fraction] 5.2 % Normal 4.5-6.2 [facility] Comment on above: Performed By: #### A 1C #### [facility] [address] [place] [address] Dr. Samantha Samuels LIPID PROFILEon 03-18-2022 CHOL-HDL RATIO NORM SEE BELOW Normal [facility] Comment on above: Result Comment: 3.3 - 4.4 LOW RISK 4.4 - 7.1 AVERAGE RISK 7.1 - 11.0 MODERATE RISK >11.0 HIGH RISK Performed By: #### L IPID, URIC, CMP #### [facility] [address] [place] [address] Dr. Samantha Samuels Cholesterol [Mass/Vol] 189 mg/dL Normal <=[address] [facility] Comment on above: Performed By: #### L IPID, URIC, CMP #### [facility] [address] [place] [address] Dr. Samantha Samuels Cholesterol in HDL [Mass/Vol] 54 mg/dL Normal 40-60 [facility] Comment on above: Performed By: #### L IPID, URIC, CMP #### [facility] [address] [place] [address] Dr. Samantha Samuels Cholesterol in LDL [Mass/Vol] 121.2 mg/dL Normal [facility] Comment on above: Performed By: #### L IPID, URIC, CMP #### [facility] [address] [address] [address] Samantha Samuels Cholesterol.total/ Cholesterol in HDL [Mass ratio] 3.5 {ratio} Normal [facility] Comment on above: Performed By: #### L IPID, URIC, CMP #### [facility] [address] [address] [address] Samantha Samuels HDL NORMAL > or = 60 mg/dl - LO W CARDIOVASCULAR RISK <40 mg/dl - HIGH CARDIOVASCULAR RISK Normal [facility] Comment on above: Performed By: #### L IPID, URIC, CMP #### [facility] [address] [address] [address] Samantha Samuels LDL CALC NORMAL SEE BELOW Normal [facility] Comment on above: Result Comment: <100 mg/dl OPTIMAL 100 - 129 mg/dl NEAR OR ABOVE OPTIMAL 130 - 159 mg/dl BORDERLINE HIGH 160 - 189 mg/dl HIGH >190 mg/dl VERY HIGH Performed By: #### L IPID, URIC, CMP #### [facility] [address] [address] [address] Samantha Samuels Triglyceride [Mass/Vol] 69 mg/dL Normal <=150 [facility] Comment on above: Performed By: #### L IPID, URIC, CMP #### [facility] [address] [address] [address] Samantha Samuels VLDL CALC 13.8 mg/dL Normal [facility] Comment on above: Performed By: #### L IPID, URIC, CMP #### [facility] [address] [address] [address] Samantha Samuels PROF 14(COMP METB)on 022 Albumin [Mass/Vol] 3.9 g/dL Normal 3.4-5.0 [facility] Comment on above: Performed By: #### L IPID, URIC, CMP #### [facility] [address] [address] [address] Samantha Samuels Albumin/Globulin [Mass ratio] 1.0 {ratio} Normal [facility] Comment on above: Performed By: #### L IPID, URIC, CMP #### [facility] [address] [address] [address] Samantha Samuels ALP [Catalytic activity/Vol] 45 U/L Critically low 46-116 [facility] Comment on above: Performed By: #### L IPID, URIC, CMP #### [facility] [address] [place] [address] Dr. Samantha Samuels ALT [Catalytic activity/Vol] 16 U/L Normal 16-63 [facility] Comment on above: Performed By: #### L IPID, URIC, CMP #### [facility] [address] [place] [address] Dr. Samantha Samuels Anion gap [Moles/Vol] 6.2 mmol/L Normal [facility] Comment on above: Performed By: #### L IPID, URIC, CMP #### [facility] [address] [place] [address] Dr. Samantha Samuels AST [Catalytic activity/Vol] 16 U/L Normal 15-37 [facility] Comment on above: Performed By: #### L IPID, URIC, CMP #### [facility] [address] [place] [address] Dr. Samantha Samuels Bilirubin [Mass/Vol] 0.5 mg/dL Normal 0.2-1.0 [facility] Comment on above: Performed By: #### L IPID, URIC, CMP #### [facility] [address] [place] [address] Dr. Samantha Samuels Calcium [Mass/Vol] 9.4 mg/dL Normal 8.5-10.1 [facility] Comment on above: Performed By: #### L IPID, URIC, CMP #### [facility] [address] [place] [address] Dr. Samantha Samuels Chloride [Moles/Vol] 106 mmol/L Normal 98-107 [facility] Comment on above: Performed By: #### L IPID, URIC, CMP #### [facility] [address] [place] [address] Dr. Samantha Samuels CO2 [Moles/Vol] 32.2 mmol/L Critically high 21.0-32.0 [facility] Comment on above: Performed By: #### L IPID, URIC, CMP #### [facility] [address] [place] [address] Dr. Samantha Samuels Creatinine [Mass/Vol] 0.82 mg/dL Normal 0.70-1.30 [facility] Comment on above: Performed By: #### L IPID, URIC, CMP #### [facility] [address] [place] [address] Dr. Samantha Samuels EGFR-AF MONTENEGRIN >60 Normal >=60 [facility] Comment on above: Result Comment: Prev iously reported as: (blank) On 03/18/2022 10:54 By KD3 Performed By: #### L IPID, URIC, CMP #### [facility] [address] [place] [address] Dr. Samantha Samuels EGFR-NON AF MONTENEGRIN >60 Normal >=60 [facility] Comment on above: Result Comment: Prev iously reported as: (blank) On 03/18/2022 10:54 By KD3 Performed By: #### L IPID, URIC, CMP #### [facility] [address] [place] [address] Dr. Samantha Samuels Globulin (S) [Mass/Vol] 3.8 g/dL Normal [facility] Comment on above: Performed By: #### L IPID, URIC, CMP #### [facility] [address] [place] [address] Dr. Samantha Samuels Glucose [Mass/Vol] 101 mg/dL Normal 74-106 [facility] Comment on above: Performed By: #### L IPID, URIC, CMP #### [facility] [address] [place] [address] Dr. Samantha Samuels Potassium [Moles/Vol] 4.4 mmol/L Normal 3.5-5.1 [facility] Comment on above: Performed By: #### L IPID, URIC, CMP #### [facility] [address] [place] [address] Dr. Samantha Samuels Protein [Mass/Vol] 7.7 g/dL Normal 6.4-8.2 [facility] Comment on above: Performed By: #### L IPID, URIC, CMP #### [facility] [address] [place] [address] Dr. Samantha Samuels Sodium [Moles/Vol] 140 mmol/L Normal 136-145 [facility] Comment on above: Performed By: #### L IPID, URIC, CMP #### [facility] [address] [place] [address] Dr. Samantha Samuels Urea nitrogen [Mass/Vol] 17.0 mg/dL Normal 7.0-18.0 [facility] Comment on above: Performed By: #### L IPID, URIC, CMP #### [facility] [address] [place] [address] Dr. Samantha Samuels Urea nitrogen/Creatinin e [Mass ratio] 20.7 mg/mg Normal [facility] Comment on above: Performed By: #### L IPID, URIC, CMP #### [facility] [address] [place] [address] Dr. Samantha Samuels URIC ACID SERUMon 03-18-2022 Urate [Mass/Vol] 4.5 mg/dL Normal 3.5-7.2 [facility] Comment on above: Performed By: #### L IPID, URIC, CMP #### [facility] [address] [place] [address] Dr. Samantha Samuels VITAMIN D 25 OHon 03-18-2022 VIT D 25-OH 73.5 ng/mL Normal [facility] Comment on above: Performed By: #### C SORAIDA ONOFRE #### [facility] [address] [place] [address] Dr. Samantha Samuels VIT D RANGES SEE BELOW Normal [facility] Comment on above: Result Comment: <20 ng/mL Vit D deficient 20 - <30 ng/mL Vit D insufficient 30 - 100 ng/mL Vit D sufficient >100 ng/mL Potential Toxicity Performed By: #### C SORAIDA ONOFRE #### [facility] [address] [place] [address] Dr. Samantha Sameuls CALCIUMon 11-18-2021 Calcium [Mass/Vol] 10.3 mg/dL Critically high 8.5-10.1 [facility] Comment on above: Performed By: #### C A #### [facility] [address] [address] [address] Samantha Samuels Covid-19 PCR ([facility])on SARS-CoV-2 (COVID-19) RNA DELIA+probe Ql (Unsp spec) Not detected Normal NOT DETECTED [facility] Comment on above: Result Comment: This test is not yet approved or cleared by the [place] FDA. When there are no FDA-approved or cleared tests available, and other criteria are met, FDA can make tests available under an emergency access mechanism called an Emergency Use Authorization (EUA). The EUA for this test is supported by the [place] of Health and Human Service's (HHS's) declaration [...] SARS-CoV-2. Performed By: #### C VDTB #### [facility] [address] [address] [address] Samantha Samuels SYMPTOMATIC COVID-19 ANTIGEN on 11-17-2021 EUA Statement SEE BELOW Normal [facility] Comment on above: Result Comment: This test [...] sooner. Performed By: #### C VDAGS #### [facility] [address] [place] [address] Dr. Samantha Samuels SARS-CoV-2 (COVID-19) RNA DELIA+probe Ql (Unsp spec) Negative Normal NEGATIVE [facility] Comment on above: Performed By: #### C VDAGS #### [facility] [address] [address] [address] Samantha [facility]14 SARS-CoV-2 (COVID-19) RNA DELIA+probe Ql (Unsp spec) Not detected Normal NOT DETECTED [facility] Comment on above: Result Comment: This test is not yet approved or cleared by the [place] FDA. When there are no FDA-approved or cleared tests available, and other criteria are met, FDA can make tests available under an emergency access mechanism called an Emergency Use Authorization (EUA). The EUA for this test is supported by the [place] of Health and Human Service's (HHS's) declaration [...] Performed By: #### C MP, CMADM #### [facility] [address] [place] [address] Dr. Samantha Samuels INFLUENZA A AND B AGon 09-07 INFLUANEGH SEE BELOW Normal [facility] Comment on above: Result Comment: Nega tive for Flu A protein angiten. Infection due to Flu A cannot be ruled out. Flu A angiten in the sample may be below the detection limit of the test. Performed By: #### C MP, CMADM #### [facility] [address] [place] [address] Dr. [facility] BEL[facility] Normal [facility] Comment on above: Result Comment: Nega tive for Flu B protein antigen. Infection due to Flu B cannot be ruled out. Flu B antigen in the sample may be below the detection limit of the test. Performed By: #### C MP, CMADM #### [facility] [address] [place] [address] Dr. Samantha Samuels INFLUENZA A AG Negative Normal NEGATIVE SEE COMMENT [facility] Comment on above: Performed By: #### C MP, CMADM #### [facility] [address] [place] [address] Dr. Samantha Samuels INFLUENZA B AG Negative Normal NEGATIVE SEE COMMENT [facility] Comment on above: Performed By: #### C MP, CMADM #### [facility] [address] [place] [address] Dr. Samantha Samuels INTERNAL CONTROLS Within Normal Limits Normal Wi thin Normal Limits [facility] Comment on above: Performed By: #### C MP, CMADM #### [facility] [address] [place] [address] Dr. Samantha Samuels Vital Signs Date Time Vital Sign Value Performing Clinician Facility 02-15-2024 14:30-0400 Body height 177.8 cm Jose Francisco Broussard MD Work Phone: [facility] 02-15-2024 14:30-0400 Body mass index (BMI) [Ratio] 24.8 kg/m2 Jose Francisco Broussard MD Work Phone: [facility] 02-15-2024 14:30-0400 Body temperature 97.81 [degF] Jose Francisco Broussard MD Work Phone: [facility] 02-15-2024 14:30-0400 Body weight 78.4 kg Jose Francisco Broussard MD Work Phone: [facility] 02-15-2024 14:30-0400 Diastolic blood pressure 77 mm[Hg] Jose Francisco Broussard MD Work Phone: [facility] 02-15-2024 14:30-0400 Heart rate 51 /min Jose Francisco Broussard MD Work Phone: [facility] 02-15-2024 14:30-0400 Respiratory rate 16 /min Jose Francisco Broussard MD Work Phone: [facility] 02-15-2024 14:30-0400 SaO2% (BldA) [Mass fraction] 98 % Jose Francisco Broussard MD Work Phone: [facility] 02-15-2024 14:30-0400 Systolic blood pressure 131 mm[Hg] Jose Francisco Broussard MD Work Phone: [facility] 02-15-2024 14:06-0400 Body mass index (BMI) [Ratio] 24.8 kg/m2 CALVIN Guzman MD Work Phone: [facility] 02-15-2024 14:06-0400 Body temperature 97.81 [degF] CALVIN Guzman MD Work Phone: [facility] 02-15-2024 14:06-0400 Body weight 78.4 kg CALVIN Guzman MD Work Phone: [facility] 02-15-2024 14:06-0400 Diastolic blood pressure 77 mm[Hg] CALVIN Guzman MD Work Phone: [facility] 02-15-2024 14:06-0400 Heart rate 51 /min CALVIN Guzman MD Work Phone: [facility] 02-15-2024 14:06-0400 Respiratory rate 16 /min CALVIN Guzman MD Work Phone: [facility] 02-15-2024 14:06-0400 SaO2% (BldA) [Mass fraction] 98 % CALVIN Guzman MD Work Phone: [facility] 02-15-2024 14:06-0400 Systolic blood pressure 131 mm[Hg] CALVIN Guzman MD Work Phone: [facility] 12-20-2023 13:48-0400 Body mass index (BMI) [Ratio] 25.37 kg/m2 Isadora Machelle PA-C Work Phone: [facility] 12-20-2023 13:48-0400 Body temperature 97.2 [degF] Isadora Machelle PA-C Work Phone: [facility] 12-20-2023 13:48-0400 Body weight 80.2 kg Isadora Machelle PA-C Work Phone: [facility] 12-20-2023 13:48-0400 Diastolic blood pressure 74 mm[Hg] Isadora Machelle PA-C Work Phone: [facility] 12-20-2023 13:48-0400 Heart rate 69 /min Isadora Machelle PA-C Work Phone: [facility] 12-20-2023 13:48-0400 Respiratory rate 16 /min Isadora Machelle PA-C Work Phone: [facility] 12-20-2023 13:48-0400 SaO2% (BldA) [Mass fraction] 96 % Isadora Machelle PA-C Work Phone: [facility] 12-20-2023 13:48-0400 Systolic blood pressure 135 mm[Hg] Isadora Machelle PA-C Work Phone: [facility] 11-14-2023 14:20-0400 Body height 182.88 cm MD Arline Orosco Work Phone: [facility] 11-14-2023 14:20-0400 Body mass index (BMI) [Ratio] 24.4 kg/m2 MD Arline Orosco Work Phone: [facility] 11-14-2023 14:20-0400 Body temperature 97.6 [degF] MD Arline Orosco Work Phone: [facility] 11-14-2023 14:20-0400 Body weight 81.64 kg MD Arline Orosco Work Phone: [facility] 11-14-2023 14:20-0400 Diastolic blood pressure 62 mm[Hg] MD Arline Orosco Work Phone: [facility] 11-14-2023 14:20-0400 Heart rate 74 /min MD Arline Orosco Work Phone: [facility] 11-14-2023 14:20-0400 Respiratory rate 16 /min MD Arline Orosco Work Phone: [facility] 11-14-2023 14:20-0400 SaO2% (BldA) [Mass fraction] 98 % MD Arilne Orosco Work Phone: [facility] 11-14-2023 14:20-0400 Systolic blood pressure 106 mm[Hg] MD Arline Orosco Work Phone: [facility] 08-17-2023 10:20-0400 Body height 177.8 cm Jose Francisco Broussard MD Work Phone: [facility] 08-17-2023 10:20-0400 Body temperature 97.9 [degF] Jose Francisco Broussard MD Work Phone: [facility] 08-17-2023 10:20-0400 Body weight 83.6 kg Jose Francisco Broussard MD Work Phone: [facility] 08-17-2023 10:20-0400 Diastolic blood pressure 66 mm[Hg] Jose Francisco Broussard MD Work Phone: [facility] 08-17-2023 10:20-0400 Heart rate 71 /min Jose Francisco Broussard MD Work Phone: [facility] 08-17-2023 10:20-0400 Respiratory rate 16 /min Jose Francisco Broussard MD Work Phone: [facility] 08-17-2023 10:20-0400 SaO2% (BldA) [Mass fraction] 97 % Jose Francisco Broussard MD Work Phone: [facility] 04-04-2024 10:20-0400 Systolic blood pressure 118 mm[Hg] Jose Francisco Broussard MD Work Phone: [facility] 06-26-2023 10:16-0500 Body height 177.8 cm Jose Francisco Broussard MD Work Phone: [facility] 06-26-2023 10:16-0500 Body temperature 97.5 [degF] Jose Francisco Broussard MD Work Phone: [facility] 06-26-2023 10:16-0500 Body weight 81.1 kg Jose Francisco Broussard MD Work Phone: [facility] 06-26-2023 10:16-0500 Diastolic blood pressure 54 mm[Hg] Jose Francisco Broussard MD Work Phone: [facility] 06-26-2023 10:16-0500 Heart rate 85 /min Jose Francisco Broussard MD Work Phone: [facility] 06-26-2023 10:16-0500 Respiratory rate 18 /min Jose Francisco Broussard MD Work Phone: [facility] 06-26-2023 10:16-0500 SaO2% (BldA) [Mass fraction] 97 % Jose Francisco Broussard MD Work Phone: [facility] 06-26-2023 10:16-0500 Systolic blood pressure 99 mm[Hg] Jose Francisco Broussard MD Work Phone: [facility] 02-23-2023 13:23-0400 Body temperature 97.39 [degF] CALVIN Guzman MD Work Phone: [facility] 02-23-2023 13:23-0400 Body weight 83.46 kg CALVIN Guzman MD Work Phone: [facility] 02-23-2023 13:23-0400 Diastolic blood pressure 68 mm[Hg] CALVIN Guzman MD Work Phone: [facility] 02-23-2023 13:23-0400 Heart rate 64 /min CALVIN Guzman MD Work Phone: [facility] 02-23-2023 13:23-0400 Respiratory rate 16 /min CALVIN Guzman MD Work Phone: [facility] 02-23-2023 13:23-0400 SaO2% (BldA) [Mass fraction] 95 % CALVIN Guzman MD Work Phone: [facility] 02-23-2023 13:23-0400 Systolic blood pressure 109 mm[Hg] CALVIN Guzman MD Work Phone: [facility] 12-07-2022 14:01-0400 Body height 182.9 cm Manny Meza MD Work Phone: [facility] 12-07-2022 14:01-0400 Body weight 79.83 kg Manny Meza MD Work Phone: [facility] 12-07-2022 14:01-0400 Diastolic blood pressure 63 mm[Hg] Manny Meza MD Work Phone: [facility] 12-07-2022 14:01-0400 Heart rate 76 /min Manny Meza MD Work Phone: [facility] 12-07-2022 14:01-0400 Systolic blood pressure 108 mm[Hg] Manny Meza MD Work Phone: [facility] 11-24-2022 13:39-0400 Diastolic blood pressure 70 mm[Hg] CALVIN Guzman MD Work Phone: [facility] 11-24-2022 13:39-0400 Heart rate 63 /min CALVIN Guzman MD Work Phone: [facility] 11-24-2022 13:39-0400 Systolic blood pressure 111 mm[Hg] CALVIN Guzman MD Work Phone: [facility] 11-24-2022 13:38-0400 Body temperature 97 [degF] CALVIN Guzman MD Work Phone: [facility] 11-24-2022 13:38-0400 Body weight 80.2 kg CALVIN Guzman MD Work Phone: [facility] 11-24-2022 13:38-0400 Respiratory rate 18 /min CALVIN Guzman MD Work Phone: [facility] 11-24-2022 13:38-0400 SaO2% (BldA) [Mass fraction] 97 % CALVIN Guzman MD Work Phone: [facility] 10-18-2022 10:13-0400 Diastolic blood pressure 50 mm[Hg] Arline M Hoy Work Phone: [facility] [address] DO Work Phone: 10-18-2022 10:13-0400 Diastolic blood pressure 48 mm[Hg] Arline M Hoy Work Phone: [facility] [address] DO Work Phone: 10-18-2022 10:13-0400 Systolic blood pressure 82 mm[Hg] Arline M Hoy Work Phone: [facility] [address] DO Work Phone: 10-18-2022 10:13-0400 Systolic blood pressure 72 mm[Hg] Arline M Hoy Work Phone: [facility] [address] DO Work Phone: 10-18-2022 [id number] 58 1 Arline M Hoy Work Phone: [facility] [address] DO Work Phone: Comment on above: [employer] 10-18-2022 [id number]:130400 56 1 Arline M Hoy Work Phone: [facility] [address] DO Work Phone: Comment on above: [employer] 10-18-2022 09:54-0400 Body height 182.88 cm Arline M Hoy Work Phone: [facility] [address] DO Work Phone: 10-18-2022 09:54-0400 Body mass index (BMI) [Ratio] 24.82 kg/m2 Arline Garciay Work Phone: [facility] [address] DO Work Phone: 10-18-2022 09:54-0400 Body surface area Derived from formula 2.05 m2 Arline Garciay Work Phone: [facility] [address] DO Work Phone: 10-18-2022 09:54-0400 Body weight 83.01 kg Arline Garciay Work Phone: [facility] [address] DO Work Phone: 10-18-2022 09:54-0400 Diastolic blood pressure 60 mm[Hg] Arline Orosco Work Phone: [facility] [address] DO Work Phone: 10-18-2022 09:54-0400 Heart rate 58 /min Arline Garciay Work Phone: [facility] [address] DO Work Phone: 10-18-2022 09:54-0400 Systolic blood pressure 90 mm[Hg] Arline Orsoco Work Phone: [facility] [address] DO Work Phone: 09-22-2022 12:52-0400 Body height 182.9 cm Jose Francisco Broussard MD Work Phone: [facility] 09-22-2022 12:52-0400 Body temperature 97.39 [degF] Jose Francisco Broussard MD Work Phone: [facility] 09-22-2022 12:52-0400 Body weight 79.02 kg Jose Francisco Broussard MD Work Phone: [facility] 09-22-2022 12:52-0400 Diastolic blood pressure 49 mm[Hg] Jose Francisco Broussard MD Work Phone: [facility] 09-22-2022 12:52-0400 Heart rate 79 /min Jose Francisco Broussard MD Work Phone: [facility] 09-22-2022 12:52-0400 Respiratory rate 16 /min Jose Francisco Broussard MD Work Phone: [facility] 09-22-2022 12:52-0400 SaO2% (BldA) [Mass fraction] 94 % Jose Francisco Broussard MD Work Phone: [facility] 09-22-2022 12:52-0400 Systolic blood pressure 92 mm[Hg] Jose Francisco Broussard MD Work Phone: [facility] 09-01-2022 12:55-0400 Body height 182.88 cm Arline M Hoy Work Phone: [facility] [address] DO Work Phone: 09-01-2022 12:55-0400 Body mass index (BMI) [Ratio] 24.82 kg/m2 Arline M Hoy Work Phone: [facility] [address] DO Work Phone: 09-01-2022 12:55-0400 Body surface area Derived from formula 2.05 m2 Arline M Hoy Work Phone: [facility] [address] DO Work Phone: 09-01-2022 12:55-0400 Body weight 83.01 kg Arline M Hoy Work Phone: [facility] [address] DO Work Phone: 09-01-2022 12:55-0400 Diastolic blood pressure 62 mm[Hg] Arline M Hoy Work Phone: [facility] [address] DO Work Phone: 09-01-2022 12:55-0400 Heart rate 42 /min Arline M Hoy Work Phone: [facility] [address] DO Work Phone: 09-01-2022 12:55-0400 Systolic blood pressure 108 mm[Hg] Arline M Hoy Work Phone: [facility] DO Work Phone: 06-20-2022 16:04-0500 Body temperature 97 [degF] Jose Francisco Broussard MD Work Phone: [facility] 06-20-2022 16:04-0500 Body weight 80.92 kg Jose Francisco Broussard MD Work Phone: [facility] 06-20-2022 16:04-0500 Diastolic blood pressure 88 mm[Hg] Jose Francisco Broussard MD Work Phone: [facility] 06-20-2022 16:04-0500 Heart rate 70 /min Jose Francisco Broussard MD Work Phone: [facility] 06-20-2022 16:04-0500 Respiratory rate 16 /min Jose Francisco Broussard MD Work Phone: [facility] 06-20-2022 16:04-0500 SaO2% (BldA) [Mass fraction] 98 % Jose Francisco Broussard MD Work Phone: [facility] 06-20-2022 16:04-0500 Systolic blood pressure 143 mm[Hg] Jose Francisco Broussard MD Work Phone: [facility] 06-07-2022 13:21-0500 Body temperature 97.59 [degF] CALVIN Guzman MD Work Phone: [facility] 06-07-2022 13:21-0500 Body weight 82.1 kg CALVIN Guzman MD Work Phone: [facility] 06-07-2022 13:21-0500 Diastolic blood pressure 89 mm[Hg] CALVIN Guzman MD Work Phone: [facility] 06-07-2022 13:21-0500 Heart rate 57 /min CALVIN Guzman MD Work Phone: [facility] 06-07-2022 13:21-0500 Respiratory rate 18 /min CALVIN Guzman MD Work Phone: [facility] 06-07-2022 13:21-0500 SaO2% (BldA) [Mass fraction] 99 % CALVIN Guzman MD Work Phone: [facility] 06-07-2022 13:21-0500 Systolic blood pressure 169 mm[Hg] CALVIN Guzman MD Work Phone: [facility] 03-22-2022 13:09-0500 Body temperature 97.39 [degF] CALVIN Guzman MD Work Phone: [facility] 03-22-2022 13:09-0500 Body weight 81.65 kg CALVIN Guzman MD Work Phone: [facility] 03-22-2022 13:09-0500 Diastolic blood pressure 64 mm[Hg] CALVIN Guzman MD Work Phone: [facility] 03-22-2022 13:09-0500 Heart rate 56 /min CALVIN Guzman MD Work Phone: [facility] 03-22-2022 13:09-0500 Respiratory rate 18 /min CALVIN Guzman MD Work Phone: [facility] 03-22-2022 13:09-0500 SaO2% (BldA) [Mass fraction] 97 % CALVIN Guzman MD Work Phone: [facility] 03-22-2022 13:09-0500 Systolic blood pressure 125 mm[Hg] CALVIN Guzman MD Work Phone: [facility] Encounters Encounter Date Encounter Type Care Provider Facility Start: 04-26-2024 End: 04-26-2024 Bamboo flowsheet Oneil Castro DPM Work Phone: [facility] Start: 04-26-2024 End: 04-26-2024 Bamboo flowsheet Oneil Castro DPM Work Phone: [facility] Start: 04-26-2024 End: 04-26-2024 Office outpatient visit 15 minutes Oneil Castro DPM Work Phone: [facility] Comment on above: Onychomycosis (Prima ry [...] encounter Ace Guzman MD Work Phone: [facility] Start: 02-12-2024 End: 02-12-2024 ambulatory ARLINE OROSCO Facility:[facility] Start: 01-10-2024 End: 01-10-2024 ambulatory [facility] Start: 12-20-2023 End: 12-20-2023 ambulatory Lab/Port [...] End: 12-19-2023 Evaluation and management of inpatient [facility] Start: 12-18-2023 End: 12-18-2023 ambulatory [facility] Start: 12-14-2023 End: 12-14-2023 ambulatory [facility] Facility:[facility] Start: 12-13-2023 Telephone encounter Umer gentile RN Work Phone: Hematology/Oncology Comment on above: Care Coordination (L abs) Start: 12-05-2023 End: 12-05-[address] [facility] Start: 11-14-2023 End: 11-14-2023 ambulatory MD Arline Orosco Work Phone: [facility] Work Phone: Start: 11-14-2023 End: 11-14-2023 Patient encounter procedure MD Arline Orsoco Work Phone: [facility] Vascular Surgery Work Phone: Start: 10-17-2023 Telephone encounter Daniel Alonzo Hematology/Oncology Comment on above: Results Start: 10-16-2023 End: 10-16-2023 ambulatory [facility] Facility:[facility] Start: 08-30-2023 Refill Jose Francisco Broussard MD Work Phone: Hematology/Oncology Comment on above: Refill Request Start: 08-17-2023 End: 08-17-2023 ambulatory Jose Francisco Broussard MD Work Phone: Hematology/Oncology Comment on above: Prostate cancer (HCC ) (Primary Dx); Osteopenia of multiple sites Start: 08-17-2023 End: 08-17-2023 Patient encounter procedure Jose Francisco Broussard MD Work Phone: [place] Comment on above: Prostate cancer (HCC ) (Primary Dx) Start: 08-15-2023 End: 08-15-2023 ambulatory [facility] Facility:[facility] Start: 08-07-2023 Telephone encounter Jose Francisco au MD Work Phone: Hematology/Oncology Comment on above: Lab Orders Start: 07-21-2023 End: 07-21-2023 ambulatory LOLA ALLEN Facility:[facility] Start: 07-21-2023 End: 07-21-2023 Patient encounter procedure Lola Allen OD Work Phone: Ophthalmology Comment on above: Hypertropia of right eye (Primary Dx); Pseudophakia of both eyes; PVD (posterior vitreous detachment), both eyes Start: 07-04-2023 End: 07-04-2023 Evaluation and management of inpatient LEROY SHAW [facility] Start: 07-03-2023 End: 07-03-2023 ambulatory [facility] Pat Phone Call Provider 1 [facility] - Pre Admit Start: 07-03-2023 End: 07-03-2023 ambulatory ARLINE OROSCO [facility] Start: 06-28-2023 End: 06-28-2023 ambulatory [facility] Ambulatory Start: 06-26-2023 End: 06-26-2023 ambulatory Lab/Port [place] Ernesto Work Phone: Hematology/Oncology Comment on above: Prostate cancer (HCC ) (Primary Dx); Osteopenia of multiple sites Start: 06-26-2023 End: 06-26-2023 Patient encounter procedure Jose Francisco Broussard MD Work Phone: [place] Start: 06-23-2023 End: 06-23-2023 ambulatory ARLINE OROSCO Facility:[facility] Start: 05-24-2023 End: 05-24-2023 ambulatory JAMES ROBB Facility:[facility] Start: 05-22-2023 End: 05-22-2023 ambulatory BARB KIRAN Facility:[facility] Start: 05-17-2023 End: 05-17-2023 ambulatory Ace GUZMAN Facility:[facility] Start: 05-12-2023 End: 05-12-2023 ambulatory JAMES P HAMILTONEZARIN Facility:[facility] Start: 05-12-2023 End: 05-12-2023 Subsequent hospital visit by physician Arrival Time Radiology Work Phone: Radiology Pet [facility] Comment on above: Malignant neoplasm o f prostate (HCC) [C61] Start: 04-10-2023 End: 04-10-2023 ambulatory JOSE FRANCISCO BROUSSARD Facility:[facility] Start: 04-10-2023 Telephone encounter Ace Guzman MD [facility] Comment on above: Nm Pet Request Start: 04-03-2023 End: 04-03-2023 ambulatory JOSE FRANCISCO BROUSSARD Facility:[facility] Start: 03-27-2023 End: 03-27-2023 ambulatory ARLINE OROSCO Neurology Start: 03-27-2023 End: 03-27-2023 Patient encounter procedure Skin Biopsy Work Phone: [facility] Start: 03-27-2023 End: 03-27-2023 ambulatory ARLINE OROSCO Neurology Start: 03-27-2023 End: 03-27-2023 Patient encounter procedure Autonomic 1 Neur Main Work Phone: [facility] Start: 02-23-2023 End: 02-24-2023 Patient encounter procedure Ace Guzman MD Work Phone: Radiation Oncology Comment on above: History of prostate cancer (Primary Dx); Prostate cancer (HCC) Start: 02-15-2023 End: 02-16-2023 [facility] Start: 12-28-2022 Telephone encounter Umer gentile [...] sit 25 minutes Arline Orosco Work Phone: [facility] 600 DO Work Phone: Start: 10-18-2022 ambulatory Baldo Doss y: Start: 10-11-2022 AUDIT Arline Orosco Work Phone: [facility] 250 DO Work Phone: Start: 09-22-2022 End: 09-22-2022 ambulatory Jose Francisco Broussard MD Work Phone: Hematology/Oncology Comment on above: Prostate cancer (HCC ) (Primary Dx); Osteopenia of multiple sites; Primary hypertension Start: 09-22-2022 End: 09-22-2022 Patient encounter procedure Jose Francisco Broussard MD Work Phone: [place] Start: 09-19-2022 Chart Update Arline Orosco Work Phone: [facility] 250 DO Work Phone: Start: 09-02-2022 End: 09-02-2022 ambulatory MD Arline Orosco Work Phone: [facility] Work Phone: Start: 09-02-2022 End: 09-02-2022 Patient encounter procedure MD Arline Orosco Work Phone: [facility]-Ul[facility] [place] Work Phone: Start: 09-01-2022 Office consultation new/estab patient 80 min Arline Orosco Work Phone: [facility] 250 DO Work Phone: Start: 09-01-2022 ambulatory Baldo Doss y: Start: 08-15-2022 ambulatory ARLINE OROSCO Facility: [facility] Start: 08-15-2022 End: 08-15-2022 Subsequent hospital visit by physician [facility] 2 (I-Stat/3t) Work Phone: Radiology Comment [...] bilateral Start: 07-13-2022 Telephone encounter Darlene Waterman [facility] Comment on above: Medication Problem Start: 07-07-2022 End: 07-07-2022 ambulatory Lab/Port [place] Ernesto Work Phone: Hematology/Oncology Comment on above: Prostate cancer (HCC ) (Primary Dx) Start: 06-27-2022 Telephone encounter Hien Brunner [facility] Work Phone: Hematology/Oncology Comment on above: Medication Update (F LAO patient deciding to move forward with Xtandi beyond 14 day free trial.) Start: 06-22-2022 Telephone encounter Hien Brunner [facility] Work Phone: [facility] Comment on above: Medication Update (X tandi) Start: 06-21-2022 Telephone encounter Nadira chapa [facility] Work Phone: [facility] Comment on above: Medication Authoriza tion (Xtandi) Start: 06-20-2022 End: 06-20-2022 ambulatory Jose Francisco Broussard MD Work Phone: Hematology/Oncology Comment on above: Prostate cancer (HCC ) (Primary Dx) Start: 06-20-2022 End: 06-20-2022 Patient encounter procedure Jose Francisco Broussard MD Work Phone: [place] Start: 06-16-2022 Chart abstracting Jose Francisco lynne MD Work Phone: Hematology/Oncology Start: 06-07-2022 End: 06-07-2022 Patient encounter procedure Ace Guzman MD Work Phone: Radiation Oncology Comment on above: Cancer of prostate w /med recur risk (T2b-c or [place] 7 or PSA 10-20) (HCC) (Primary Dx) Start: 06-02-2022 End: 06-02-2022 Subsequent hospital visit by physician Arrival Time Radiology Work Phone: Radiology Pet CT Comment on above: History of prostate cancer [Z85.46] Start: 05-17-2022 End: 05-18-[address] ARLINE OROSCO . Facility:[facility] Start: 04-19-2022 Telephone encounter Ace Guzman MD Work Phone: [facility] Comment on above: Nm Pet Request Start: 03-24-2022 End: 03-25-[address] ARLINE OROSCO . Facility:[facility] Start: 03-22-2022 End: 03-22-2022 Patient encounter procedure Ace Guzman MD Work Phone: Radiation Oncology Comment on above: History of prostate cancer (Primary Dx); Cancer of prostate w/med recur risk (T2b-c or [place] 7 or PSA 10-20) (HCC) Start: 03-18-2022 [...] examination done Lola Allen OD Work Phone: [facility] Work Phone: Start: 02-28-2017 End: 03-01-2017 Ambulatory DEFAULT PHYSICIAN Facility:[facility] Procedures Date Procedure Procedure Detail Performing [...] Performed By: #### C MP, CMADM #### [facility] [address] [address] [address] Samantha Samuels Start: 11-18-2021 PSA screening LEROY CORRIGAN Comment on above: Performed By: #### C MP, CMADM #### [facility] [address] [address] [address] Samantha Samuels Start: 03-15-2021 Adult depression [...] operation Arline Orosco Work Phone: Total colonoscopy Arlnie Orosco Work Phone: Plan of Treatment Date Care Activity Detail Author Start: 02-11-2027 Diabetes Screening Diabetes Screenin [facility] Start: 12-13-2026 Diabetes Screening Diabetes Screenin [facility] Start: 10-15-2026 Diabetes Screening Diabetes Screenin g [facility] Start: 08-14-2026 Diabetes Screening Diabetes Screenin g [facility] Start: 06-23-2026 Diabetes Screening Diabetes Screenin g [facility] Start: 02-15-2026 Diabetes Screening Diabetes Screenin g [facility] Start: 02-06-2026 DTaP,Tdap and Td Vaccines (2 - Td or Tdap) DTaP,Tdap and Td Vaccines (2 - Td or Tdap) [facility] Start: 02-06-2026 Urine microalbumin profile [facility] Start: 09-20-2025 DIABETES SCREEN DIABETES SCREEN [facility] Start: 07-07-2025 DIABETES SCREEN DIABETES SCREEN [facility] Start: 08-16-2024 BP Controlled (<130/80) BP Con trolled (<130/80) [facility] Start: 07-25-2024 End: 07-25-2024 Patient encounter procedure 07/25/2024 11:00 AM EDT Office Visit [facility] [address] [place] [id number] Oneil Castro, DPClem [address] [place] [address] [facility] Start: 07-22-2024 End: 07-22-2024 Patient encounter procedure 07/22/2024 1:00 PM EDT Office Visit [facility] [address] [place] [address] Lola Allen S, OD [address] [place] [address] Annual Full Eye Exam Ophthalmology Comment on above: Annual Full Eye Exam Start: 07-04-2024 Tobacco Screening Tobacco Screening [facility] Start: 06-26-2024 BP Controlled (<130/80) BP Con trolled (<130/80) [facility] Start: 06-23-2024 DIABETES SCREEN DIABETES SCREEN [facility] Start: 06-20-2024 End: 06-20-2024 ambulatory Hematology/Oncology Comment on above: 4mth f/u lupron and prolia Start: 06-13-2024 End: 06-13-2024 Patient encounter procedure 06/13/2024 11:00 AM EST Office Visit [facility] [address] [place] [address] [place] [address] 4mth f/u [facility] Comment on above: 4mth f/u Start: 05-17-2024 End: 03-16-2025 PET+CT Guidance for localization of tumor of Whole body-- W [id number] IV NM PET/CT PROSTATE WHOLE BODY IMAGING Radiology Routine Malignant neoplasm of prostate (HCC) Expected: 05/17/2024, Expires: 03/16/2025 [facility] Work Phone: Comment on above: Expected: 05/17/2024 , Expires: 03/16/2025 Start: 04-26-2024 End: 04-26-2024 Patient encounter procedure 04/26/2024 10:30 AM EST Office Visit [facility] [address] [place] [address] Oneil Castro DPM [address] [place] [address] Arrived [facility] Comment on above: Arrived Start: 04-10-2024 BP Controlled (<130/80) BP Con trolled (<130/80) [facility] Start: 02-24-2024 BP Controlled (<130/80) BP Con trolled (<130/80) [facility] Start: 02-15-2024 End: 02-15-2024 Follow-up encounter 02/15/2024 2:15 PM EDT Visit (SP) Office Hematology/Oncology [address] [place] [address] Jose Francisco Broussard MD [address] [place] [address] 8 week follow up Hematology/Oncology Comment on above: 8 week follow up Start: 02-15-2024 End: 02-15-2024 Patient encounter procedure Radiation Oncology Comment on above: 6 month rv Start: 02-12-2024 End: 02-12-2024 Patient encounter procedure 02/12/2024 10:30 AM EDT Office Visit [facility] [address] [place] [address] labs a couple of days prior to follow up [facility] Comment on above: labs a couple of day s prior to follow up Start: 01-18-2024 Adult BMI Screening Adult BMI Screen [facility] Start: 01-14-2024 Covid-19 Vaccine ( season) Covid-19 Vaccine ( season) [facility] Start: 01-14-2024 Covid-19 Vaccine ( season) Covid-19 Vaccine () [facility] Start: 01-14-2024 Influenza vaccination [facility] Start: 12-27-2023 BP CONTROLLED (<130/80) BP CON TROLLED (<130/80) [facility] Start: 12-20-2023 End: 03-20-2024 CBC W Auto Differential panel - Blood COMPLETE BLOOD COUNT AND DIFFERENTIAL Lab Routine Prostate cancer (HCC) Expected: 12/20/2023, Expires: 03/20/2024 [facility] Comment on above: Expected: 12/20/2023 , Expires: 03/20/2024 Start: 12-20-2023 End: 03-20-2024 Comprehensive metabolic 2000 panel - Serum or Plasma COMPREHENSIVE METABOLIC PANEL Lab Routine Prostate cancer ([facility]) Expected: 12/20/2023, Expires: 03/20/2024 [facility] Work Phone: Comment on above: Expected: 12/20/2023 , Expires: 03/20/2024 Start: 12-20-2023 End: 12-20-2023 Follow-up encounter Hematology/Oncology Comment on above: 4 month follow up la b Lupron + Xgeva Start: 12-20-2023 End: 03-20-2024 Parathyrin related protein [Moles/volume] in Serum or Plasma PTH RELATED PEPTIDE Lab Routine Prostate cancer ([facility]) Pain of right hip Osteopenia of multiple sites Encounter for screening for osteoporosis Hypercalcemia Expected: 12/20/2023, Expires: 03/20/2024 [facility] Comment on above: Expected: 12/20/2023 , Expires: 03/20/2024 Start: 12-20-2023 End: 03-20-2024 Parathyrin.intact [Mass/volume] in Serum or Plasma PTH INTACT Lab Routine Prostate cancer ([facility]) Pain of right hip Osteopenia of multiple sites Encounter for screening for osteoporosis Hypercalcemia Expected: 12/20/2023, Expires: 03/20/2024 [facility] Comment on above: Expected: 12/20/2023 , Expires: 03/20/2024 Start: 12-20-2023 End: 03-20-2024 Prostate specific Ag [Mass/volume] in Serum or Plasma PROSTATE-SPECIFIC ANTIGEN DIAGNOSTIC Lab Routine Prostate cancer (HCC) Expected: 12/20/2023, Expires: 03/20/2024 [facility] Comment on above: Expected: 12/20/2023 , Expires: 03/20/2024 Start: 12-14-2023 End: 12-14-2023 Follow-up encounter Hematology/Oncology Comment on above: 4 month follow up la b Lupron + Xgeva Start: 12-14-2023 End: 12-14-2023 Patient encounter procedure 12/14/2023 10:15 AM EDT Office Visit [facility] [address] [place] [address] [place] [address] 4 month follow up lab Lupron + Xgeva [facility] Comment on above: 4 month follow up la b Lupron + Xgeva Start: 12-13-2023 End: 03-13-2024 Prostate specific Ag [Mass/volume] in Serum or Plasma PROSTATE-SPECIFIC ANTIGEN DIAGNOSTIC Lab Routine Prostate cancer (HCC) Expected: 12/13/2023, Expires: 03/13/2024 [facility] Work Phone: Comment on above: Expected: 12/13/2023 , Expires: 03/13/2024 Start: 12-08-2023 BP CONTROLLED (<130/80) BP CON TROLLED (<130/80) [facility] Start: 11-25-2023 BP CONTROLLED (<130/80) BP CON TROLLED (<130/80) [facility] Start: 10-18-2023 End: 01-17-2024 Basic metabolic 2000 panel - Serum or Plasma BASIC METABOLIC PNL Lab Routine Prostate cancer (HCC) Expected: 10/18/2023 (Approximate), Expires: 01/17/2024 [facility] Work Phone: Comment on above: Expected: 10/18/2023 (Approximate), Expires: 01/17/2024 Start: 10-18-2023 End: 01-17-2024 CBC W Auto Differential panel - Blood CBC + DIFF Lab Routine Prostate cancer (HCC) Expected: 10/18/2023 (Approximate), Expires: 01/17/2024 [facility] Work Phone: Comment on above: Expected: 10/18/2023 (Approximate), Expires: 01/17/2024 Start: 10-18-2023 End: 01-17-2024 Prostate specific Ag [Mass/volume] in Serum or Plasma PSA/PROSTSPECAG DIAG Lab Routine Prostate cancer (HCC) Expected: 10/18/2023 (Approximate), Expires: 01/17/2024 [facility] Work Phone: Comment on above: Expected: 10/18/2023 (Approximate), Expires: 01/17/2024 Start: 09-23-2023 BP CONTROLLED (<130/80) BP CON TROLLED (<130/80) [facility] Start: 08-28-2023 Lipid 1996 panel - S beverly or Plasma Lipid Screening [facility] Start: 08-28-2023 Lipid panel Lipid Screening [facility] Start: 08-28-2023 LIPID SCREEN LIPID SCREEN [facility] Start: 08-15-2023 End: 11-14-2023 Basic metabolic 2000 panel - Serum or Plasma BASIC METABOLIC PNL Lab Routine Prostate cancer (HCC) Expected: 08/15/2023, Expires: 11/14/2023 [facility] Work Phone: Comment on above: Expected: 08/15/2023 , Expires: 11/14/2023 Start: 08-15-2023 End: 11-14-2023 CBC W Auto Differential panel - Blood CBC + DIFF Lab Routine Prostate cancer (HCC) Expected: 08/15/2023, Expires: 11/14/2023 [facility] Work Phone: Comment on above: Expected: 08/15/2023 , Expires: 11/14/2023 Start: 08-15-2023 End: 11-14-2023 Prostate specific Ag [Mass/volume] in Serum or Plasma PSA/PROSTSPECAG DIAG Lab Routine Prostate cancer (HCC) Expected: 08/15/2023, Expires: 11/14/2023 [facility] Work Phone: Comment on above: Expected: 08/15/2023 , Expires: 11/14/2023 Start: 07-07-2023 BP CONTROLLED (<130/80) BP CON TROLLED (<130/80) [facility] Start: 05-26-2023 End: 03-24-2024 NM PET/CT PROSTATE WHOLE BODY IMAGING NM PET/CT PROSTATE WHOLE BODY IMAGING Radiology Routine Prostate cancer (HCC) Expected: 05/26/2023, Expires: 03/24/2024 [facility] Work Phone: Comment on above: Expected: 05/26/2023 , Expires: 03/24/2024 Start: 05-15-2023 Advance Directive Discussion Advance Directive Discussion [facility] Start: 05-15-2023 Behavioral Health Screening Behavioral Health Screening [facility] Start: 05-15-2023 Depression Assessment Depression Ass essment [facility] Start: 03-22-2023 BP CONTROLLED (<130/80) BP CON TROLLED (<130/80) [facility] Start: 03-22-2023 End: 05-22-2023 Prostate specific Ag [Mass/volume] in Serum or Plasma PSA/PROSTSPECAG DIAG Lab Routine History of prostate cancer Expected: 03/22/2023, Expires: 05/22/2023 [facility] Work Phone: Comment on above: Expected: 03/22/2023 , Expires: 05/22/2023 Start: 02-08-2023 FUV, Provider: Baldo Gifford, Status: Pen, Time: 9:30 AM FUV, Provider: Baldo Gifford, Status: Terry, Time: 9:30 AM -[facility] 600 DO Work Phone: Start: 01-13-2023 Covid-19 Vaccine () Covid-19 Vaccine ( season) [facility] Start: 01-13-2023 Influenza vaccination [facility] Start: 12-29-2022 RSV Vaccine (1 - 1-d ose 75+ series) RSV Vaccine (1 - 1-dose 75+ series) [facility] Start: 12-28-2022 End: 02-27-2023 CBC W Auto Differential panel - Blood CBC + DIFF Lab Routine Osteopenia of multiple sites Prostate cancer (HCC) Expected: 12/28/2022 (Approximate), Expires: 02/27/2023 [facility] Work Phone: Comment on above: Expected: 12/28/2022 (Approximate), Expires: 02/27/2023 Start: 12-28-2022 End: 02-27-2023 Comprehensive metabolic 2000 panel - Serum or Plasma COMP METABOLIC PANEL Lab Routine Osteopenia of multiple sites Prostate cancer (HCC) Expected: 12/28/2022 (Approximate), Expires: 02/27/2023 [facility] Work Phone: Comment on above: Expected: 12/28/2022 (Approximate), Expires: 02/27/2023 Start: 12-28-2022 End: 02-27-2023 Prostate specific Ag [Mass/volume] in Serum or Plasma PSA/PROSTSPECAG DIAG Lab Routine Osteopenia of multiple sites Prostate cancer (HCC) Expected: 12/28/2022 (Approximate), Expires: 02/27/2023 [facility] Work Phone: Comment on above: Expected: 12/28/2022 (Approximate), Expires: 02/27/2023 Start: 10-18-2022 FUV, Provider: Baldo Gifford, Status: Pen, Time: 9:20 AM FUV, Provider: Baldo Gifford, Status: Pen, Time: 9:20 AM [facility] 250 DO Work Phone: Start: 10-06-2022 FUV, Provider: Baldo Gifford, Status: Pen, Time: 3:10 PM FUV, Provider: Baldo Gifford, Status: Pen, Time: 3:10 PM [facility] 250 DO Work Phone: Start: 09-02-2022 Doppler ultrasonogra phy of bilateral carotid arteries US carotid doppler BI [facility] Start: 09-02-2022 US.doppler Carotid arteries - bilateral [facility] Start: 06-23-2022 BP CONTROLLED (<130/80) BP CON TROLLED (<130/80) [facility] Start: 05-22-2022 End: 04-21-2023 NM PET/CT PROSTATE WHOLE BODY IMAGING NM PET/CT PROSTATE WHOLE BODY IMAGING Radiology Routine History of prostate cancer Cancer of prostate w/med recur risk (T2b-c or [place] 7 or PSA 10-20) ([facility]) Expected: 05/22/2022, Expires: 04/21/2023 [facility] Work Phone: Comment on above: Expected: 05/22/2022 , Expires: 04/21/2023 Start: 05-22-2022 End: 07-22-2022 Prostate specific Ag [Mass/volume] in Serum or Plasma PSA/PROSTSPECAG DIAG Lab Routine Cancer of prostate w/med recur risk (T2b-c or [place] 7 or PSA 10-20) ([facility]) Expected: 05/22/2022, Expires: 07/22/2022 [facility] Work Phone: Comment on above: Expected: 05/22/2022 , Expires: 07/22/2022 Start: 05-22-2022 End: 07-22-2022 Testosterone [Mass/volume] in Serum or Plasma TESTOSTERONE TOTAL Lab Routine Cancer of prostate w/med recur risk (T2b-c or [place] 7 or PSA 10-20) (HCC) Expected: 05/22/2022, Expires: 07/22/2022 [facility] Work Phone: Comment on above: Expected: 05/22/2022 , Expires: 07/22/2022 Start: 05-15-2022 ADVANCE DIRECTIVE DISCUSSION ADVANCE DIRECTIVE DISCUSSION [facility] Start: 05-15-2022 DEPRESSION ASSESSMENT DEPRESSION ASS ESSMENT [facility] Start: 03-15-2022 Adult depression screening assessment DEPRESSION SCREENING [facility] Start: 05-15-2021 ADVANCE DIRECTIVE DISCUSSION ADVANCE DIRECTIVE DISCUSSION [facility] Start: 05-15-2021 DEPRESSION ASSESSMENT DEPRESSION ASS ESSMENT [facility] Start: 11-17-2020 Colonoscopy COLONOSCOPY [facility] Start: 11-17-2020 COLORECTAL CANCER SCREENING COLORECTAL CANCER SCREENING [facility] Start: 11-17-2020 Screening for malign ant neoplasm of colon [facility] Start: 12-29-2012 Fall Risk Screening Fall Risk Screen ing [facility] Start: 2007 RSV Vaccine (1 - 1-d ose 60+ series) RSV Vaccine (1 - 1-dose 60+ series) [facility] Start: 12-29-2002 Influenza vaccination LUNG CANCER [facility] Start: 12-29-1997 Influenza vaccination LUNG CANCER [facility] Start: 12-29-1997 Screening for malign ant neoplasm of lung Lung Cancer Screening [facility] Start: 12-29-1992 COLOGUARD (FIT-DNA) COLOGUARD (FIT-D NA) [facility] Start: 12-29-[address] COLONOGRAPHY [facility] Start: 12-29-1992 FECAL OCCULT BLOOD FECAL OCCULT BLOO D [facility] Start: 12-29-1992 Screening for malign ant neoplasm of colon [facility] Start: 12-29-1992 SIGMOIDOSCOPY SIGMOIDOSCOPY [facility] Start: 12-29-1977 Zoledronic acid therapy ALPHA- 1 ANTITRYPSIN DEFICIENCY SCREENING [facility] Start: 12-29-1965 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 ANNUAL PCP TEAM CHRONIC DISEASE VISIT [facility] Start: 12-29-1965 Anxiety Screening Anxiety Screening [facility] Start: 12-29-1965 BP CONTROLLED (<130/80) BP CON TROLLED (<130/80) [facility] Start: 12-29-1965 Depression Screening Depression Scre ing [facility] Start: 12-29-1965 HEPATITIS C SCREENING HEPATITIS C [facility] Start: 12-29-1965 Hepatitis C screening Hepatitis [facility] Start: 12-29-1965 SPIROMETRY SPIROMETRY [facility] Start: 1959 Depression Screening Depression Scre ening [facility] Start: 12-29-1952 COVID-19 VACCINE (1) COVID-19 VACCIN E (1) [facility] Start: 07-01-1948 COVID-19 VACCINE (#1) COVID-19 VACCI NE (#1) [facility] Start: 1945 ABDOMINAL AORTIC ANEURYSM SCREENING ABDOMINAL AORTIC ANEURYSM SCREENING [facility] Start: 1945 Medicare Annual Well ness Visit Medicare Annual Wellness Visit [facility] Start: 1945 Tobacco Counseling Tobacco Counselin g [facility] End: 01-18-2025 DXA Skeletal system.axial Views for bone density DXA-AXIAL SKELETON Radiology Routine Prostate cancer (HCC) Pain of right hip Osteopenia of multiple sites 1 Occurrences starting 12/20/2023 until 01/18/2025 [facility] Comment on above: 1 Occurrences starti ng 12/20/2023 until 01/18/2025 End: 07-07-2023 Mri pelvis w/o & w/contrast material MRI PROSTATE WO/W IVCON Radiology Routine Cancer of prostate w/med recur risk (T2b-c or Kita 7 or PSA 10-20) (HCC) 1 Occurrences starting 06/07/2022 until 07/07/2023 [facility] Work Phone: Comment on above: 1 Occurrences starti ng 06/07/2022 until 07/07/2023 Prostate specific Ag [Mass/volume] in Serum or Plasma PROSTATE-SPECIFIC ANTIGEN DIAGNOSTIC Lab Routine Prostate cancer (HCC) 12/14/2023 12:57 PM EDT [facility] End: 01-18-2025 XR Hip - right AP and Lateral XR HIP 2V AP/LAT RIGHT (AK,FL,ME,UN) Radiology Routine Prostate cancer (HCC) Pain of right hip 1 Occurrences starting 12/20/2023 until 01/18/2025 [facility] Comment on above: 1 Occurrences starti ng 12/20/2023 until 01/18/2025 End: 01-18-2025 XR Pelvis Inlet and Outlet XR PELVIS 2V INLET/OUTLET Radiology Routine Prostate cancer (HCC) Pain of right hip 1 Occurrences starting 12/20/2023 until 01/18/2025 [facility] Comment on above: 1 Occurrences starti ng 12/20/2023 until 01/18/2025 [facility] Immunizations Immunization Date Immunization Notes Care Provider Fa cili 02-12-2022 influenza nasal, unspecified formulation CALVIN Guzman MD Work Phone: [facility] 02-12-2022 influenza virus vaccine, unspecified formulation Arline Orosco Work Phone: [facility] 250 DO Work Phone: 02-18-2021 Fluzone High-Dose Quadrivalent 0.7 ML Intramuscular Suspension Prefilled Syringe Arline Orosco Work Phone: [facility] 02-12-2021 seasonal influenza, intradermal, preservative free CALVIN Guzman MD Work Phone: [facility] 02-04-2020 influenza nasal, unspecified formulation CALVIN Guzman MD Work Phone: [facility] 02-04-2020 influenza virus vaccine, unspecified formulation Arline Orosco Work Phone: [facility] 250 DO Work Phone: 01-26-2020 influenza, high-dose , quadrivalent vaccine (FLUZONE HIGH DOSE QUADRIVALENT) Lola Kochlager OD Work Phone: [facility] 01-14-2020 influenza, high dose seasonal, preservative-free Arline Orosco Work Phone: [facility] 02-01-2019 AS03 adjuvant CALVIN Guzman MD Work Phone: [facility] 02-01-2019 Seasonal trivalent influenza vaccine, adjuvanted, preservative free Lola Loudenslager OD Work Phone: [facility] 01-10-2019 zoster vaccine recombinant Lola Loudenslager OD Work Phone: [facility] 10-14-2018 zoster vaccine recombinant Lola Loudenslager OD Work Phone: [facility] 01-29-2018 AS03 adjuvant CALVIN Guzman MD Work Phone: [facility] 01-29-2018 Seasonal trivalent influenza vaccine, adjuvanted, preservative free Lola Loudenslager OD Work Phone: [facility] 02-10-2017 influenza, high dose seasonal, preservative-free Lola Loudenslager OD Work Phone: [facility] 02-10-2017 pneumococcal conjuga te vaccine, 13 valent Lola Loudenslager OD Work Phone: [facility] 03-04-2016 influenza, seasonal, injectable, preservative free CALVIN Guzman MD Work Phone: [facility] 03-04-2016 seasonal influenza, intradermal, preservative free Lola Loudenslager OD Work Phone: [facility] 02-07-2016 influenza, high dose seasonal, preservative-free Lola Loudenslager OD Work Phone: [facility] 02-07-2016 tetanus toxoid, redu mara diphtheria toxoid, and acellular pertussis vaccine, adsorbed Lola Loudenslager OD Work Phone: [facility] 04-16-2014 influenza, high dose seasonal, preservative-free Lola Loudenslager OD Work Phone: [facility] 04-16-2014 pneumococcal polysaccharide vaccine, 23 valent Lola Loudenslager OD Work Phone: [facility] 03-07-2014 pneumococcal polysaccharide vaccine, 23 valent Lola Loudenslager OD Work Phone: [facility] 02-27-2014 influenza, seasonal, injectable, preservative free CALVIN Guzman MD Work Phone: [facility] 02-27-2014 seasonal influenza, intradermal, preservative free Lola Loudenslager OD Work Phone: [facility] 02-20-2013 pneumococcal polysaccharide vaccine, 23 valent Lola Loudenslager OD Work Phone: [facility] Payers Date Payer Category Payer Self-pay [id number] 2021 Medicare (Managed Care) [place] [employer] ADVANTAGE [id number] 2018 Unknown 2018 Unknown ANTHEM BLUE CROS S AND BLUE SHIELD ANTHEM MEDIBLUE HMO [id number] 2018-Present [phone] [address] [id number] 2016 Medicare [id number] 1959 Unknown [id number] 1947 Unknown [id number] 2.16.840.1.677282.3.579. 2.593 1947 Unknown [id number] 2.16840.1.493621.3.579. 2.593 1947 Unknown [id number] 2.16.840.1.738623.3.579. 2.593 1947 Unknown [id number] 2.16.840.1.801829.3.579. 2.593 1947 Unknown [id number] 2.16.840.1.285612.3.579. 2.593 1947 Unknown [id number] 2.16.840.1.386598.3.579. 2.593 1947 Unknown [id number] 2.16.840.1.553975.3.579. 2.593 1947 Unknown [id number] 2.16.840.1.359048.3.579. 2.593 1947 Unknown [id number] 2.16.840.1.143272.3.579. 2.593 1947 Unknown [id number] 2.16.840.1.973825.3.579. 2.593 1947 Unknown [id number] 2.16.840.1.522797.3.579. 2.593 1947 Unknown [id number] 2.16.840.1.809076.3.579. 2.356 1947 Unknown [id number] 2.16.840.1.723285.3.579. 2.356 1947 Unknown [id number] 2.16.840.1.266366.3.579. 2.1244 1947 Unknown [id number] 2.16.840.1.671568.3.579. 2.1286 1947 Unknown [id number] 2.16.840.1.061586.3.579. 2.1286 1947 Unknown [id number] 2.16.840.1.684598.3.579. 2.1286 1947 Unknown [id number] 2.16.840.1.496736.3.579. 2.1286 1947 Unknown [id number] 2.16.840.1.590825.3.579. 2.1286 1947 Unknown [id number] 2.16.840.1.367220.3.579. 2.1286 1947 Unknown [id number] 2.16.840.1.490430.3.579. 2.1259 Medicare Medicare [id number] Unknown [place] BC/BS [id number] Unknown [id number] Unknown [id number] 2.16.840.1.748880.3.579. 2.531 Social History Date Type Detail Facility Start: 04-03-2012 End: 04-26-2024 Tobacco smoking status MSIS Smokes tobacco daily [facility] History of tobacco use Cigarette Smoker [facility] Start: 04-03-2012 End: 04-26-2024 Cigarettes smoked current (pack per day) - Reported 1 [facility] Comment on above: 1 PPD; Start: 04-03-2012 End: 04-26-2024 Tobacco use and exposure Smokeless tobacco non-user [facility] Start: 08-23-2021 End: 02-15-2024 Alcohol intake Current non-drinker of alcohol (finding) [facility] Start: 1945 Sex Assigned At Male [facility] Start: 03-12-2022 End: 03-22-2022 Exposure to SARS-CoV-2 (event) Not sure [facility] History of tobacco use Passive smoker [facility] Start: 10-01-2018 Tobacco smoking stat [facility] Smoker (finding) [facility] Start: 11-24-2022 End: 04-26-2024 Tobacco use panel [facility] Adult Depression Screening Assessment 1 [facility] Start: 07-31-2018 Gender identity Identifies as male gender (finding) [facility] Start: 07-31-2018 Sexual orientation Heterosexual (fin ding) [facility] Start: 06-28-2022 Tobacco Comment 1 ppd for 42 y rs not interested [facility] smoking stat [facility] Tobacco smoking consumption unknown [facility] Start: 1945 Sex assigned at Not on file [facility] Start: 04-26-2024 Alcoholic beverage intake Lifetime non-drinker (finding) [place] [facility] Medical Equipment Procedure Code Equipment Code Equipment Origin al Text Equipment Identifier Dates Lens Iol Ultrase rt 16.0d - [id number] - [id number] Start: 06-13-2019 Lens Iol Ultrase rt 17.0d - [id number] - [id number] Start: 07-09-2019 Clinical Notes 06-23-2021 to 04-26-2024 Oneil Castro, DP - 04/26/2024 10:30 AM ESTTelephone Encounter - Christiano Cardenas APRN.SPORTS EDITOR - 04/09/2024 11:24 AM ESTTelephone Encounter - Christiano Cardenas APRN.[facility] - 04/09/2024 11:24 AM EST Note [...] have insurance coverage for nail reduction by file clerk. 3. Patient should wash and dry bilateral [...] Reappoint 10-12 weeks. documented in this encounter [facility] 04-09-2024 Telephone encounter Note The following approved medication requests have been transmitted electronically. Requested Prescriptions Signed Prescriptions Disp Refills bicalutamide (CASODEX) 50 mg tablet 90 tablet 1 Sig: TAKE 1 TABLET BY MOUTH EVERY DAY Authorizing Provider: CHRISTIANO CARDENAS APRN.SPORTS EDITOR [facility] 04-09-2024 Miscellaneous Notes The following approved medication requests have been transmitted electronically. Requested Prescriptions Signed Prescriptions Disp Refills bicalutamide (CASODEX) 50 mg tablet 90 tablet 1 Sig: TAKE 1 TABLET BY MOUTH EVERY DAY Authorizing Provider: CHRISTIANO CARDENAS APRN.SPORTS EDITOR documented in this encounter [facility] 02-15-2024 Telephone encounter Note Please disregard this encounter. Patient does not need scan until May. Will resend closer to date requested. [facility] 02-15-2024 Miscellaneous Notes Please disregard this encounter. Patient does not need scan until May. Will resend closer to date requested. This form is used for MAIN CAMPUS APPOINTMENTS ONLY. Is this request for a [facility] [place] PET scan appointment? Yes: [facility] [employer] [place]: [place] Requesting Person (Last Name, First Name): Fox Guzman Area Code + Phone/Pager: [phone] Who do we call to schedule this appointment? Other Contact: [facility] PET to be done in [place]. Route to [facility] [place] for scheduling Requesting Staff Fox Guzman Area Code + Phone/Pager: [phone] PET Orders (A delay in scheduling will [...] need anesthesia? NO Send requests to P [facility] documented in this encounter [facility] 02-15-2024 Telephone encounter Note This form is used for MAIN CAMPUS APPOINTMENTS ONLY. Is this request for a [place] PET scan appointment? Yes: [facility] [employer] [place]: [place] Requesting Person (Last Name, First Name): Fox Guzman Area Code + Phone/Pager: [phone] Who do we call to schedule this appointment? Other Contact: [facility] PET to be done in [place]. Route to [facility], [place] for scheduling Requesting Staff Fox Guzman Area Code + Phone/Pager: [phone] PET Orders (A delay in scheduling will [...] need anesthesia? NO Send requests to P [facility] 02-15-2024 Nurse Note AUA=19 [facility] 02-15-2024 Nurse Note AUA=19 documented in this encounter [facility] 02-15-2024 History of Present illness Narrative [...] Ace Guzman MD cc: [place] [address] [place] [id number] [address] Broussard. Portions of the above note extracted and edited from previous visit as well as active information included in the EMR. documented in this encounter [facility] 02-15-2024 Note HNO ID: [id number] Author: Aec GUZMAN MD Service: ? Author Type: Physician [...] Bowel movement f (more content not included)... [facility] 02-14-2024 Note HNO ID: [id number] Author: JOSE FRANCISCO BROUSSARD MD Service: ? [...] CATARACT, INSERT LENS,EX Bilateral 06/2019 Dr. Grimm [facility], [place] TONSILLECTOMY HX FAMILY HISTORY: FAMILY HISTORY Problem [...] dysphasia, diarrhea, bl (more content not included)... [facility] 02-14-2024 History of Present illness Narrative PATIENT [...] CATARACT, INSERT LENS,EX Bilateral 06/2019 Dr. Grimm [facility], [place] TONSILLECTOMY HX FAMILY HISTORY: FAMILY HISTORY Problem [...] pelvis/hip PATHOLOGY: 02/14/2000 Pelvic lymph node biopsy ([facility] [...] 0.97 RADIOLOGY/OTHER STUDIES: 01/10/2024 Bone density DEXA ([facility]) Osteopenia. Max T-score -1.5 right femoral neck. [...] expressing neoplastic process 01/15/2022 Bone density DEXA ([facility]) Osteopenia in bilateral femoral necks ASSESSMENT/PLAN: 1. Prostate cancer (HCC) - ICD9: 185, ICD10: C61 Prostate cancer diagnosed January 2000 (prostate biopsy 01/20/2000). Initial staging revealed evidence of lymph node involvement (pelvic lymph node biopsy 02/14/2000). Initial stage T3b, N1, M0; [place] 8. The patient received primary treatment with [...] were considered. The patient was seen at [facility] by Dr. Meza to evaluate [...] 6 months since 2019, previously given at [facility]. Since December 2022 he has been receiving [...] Francisco Broussard MD documented in this encounter [facility] 12-20-2023 Instructions Isadora Carty PA-C - [...] usual activities immediately. documented in this encounter [facility] 12-20-2023 History of Present illness Narrative [...] CATARACT, INSERT LENS,EX; Bilateral Comment: Dr. Grimm [facility], [place] No date: TONSILLECTOMY HX FAMILY HISTORY: FAMILY [...] pelvis/hip PATHOLOGY: 02/14/2000 Pelvic lymph node biopsy ([facility], Dr. Doug Regalado) Metastatic prostate adenocarcinoma involving 1 of 3 lymph nodes (right obturator LN) 01/20/2000 TRUS prostate biopsy ([facility]) Prostate adenocarcinoma, [place] composite score 8 LABS: Hemoglobin (g/dL) Date [...] expressing neoplastic process 01/15/2022 Bone density DEXA ([facility]) Osteopenia in bilateral femoral necks ASSESSMENT/PLAN: 1. Prostate cancer (HCC) - ICD9: 185, ICD10: C61 Prostate cancer diagnosed January 2000 (prostate biopsy 01/20/2000). Initial staging revealed evidence of lymph node involvement (pelvic lymph node biopsy 02/14/2000). Initial stage T3b, N1, M0; [place] 8. The patient received primary treatment with [...] were considered. The patient was seen at [facility] [place] by Dr. Meza to evaluate for HIFU, [...] 6 months since 2019, previously given at [facility]. Since December 2022 he has been receiving at our facility. He will receive and injection today and his next injection will be due June 2024. Will repeat bone density DEXA before his next visit. 4. Hypercalcemia Since September 2022 the patient's calcium has been slowly increasing. Unlikely related to prostate cancer. Will check PTH studies to be complete. sIadora Carty PA-C CC: Dr. Leroy Shaw, [facility] I spent a total of 30 minutes on the date of the service which included preparing to see the patient, [id number] patient care, completing clinical documentation, performing a medically appropriate examination, counseling and educating the patient/family/caregiver, ordering medications, tests, or procedures, independently interpreting results (not separately reported), communicating results to the patient/family/caregiver, and care coordination (not separately reported). documented in this encounter [facility] 12-20-2023 Note HNO ID: [id number] Author: ISADORA CARTY PA-C Service: ? Author Type: Physician Show Dog Trainer Type: Progress Notes Filed: 12/20/2023 14:30 Note [...] INSERT LENS,EX; Bilateral Comment: Dr. Grimm - [place], [place] No date: TONSILLECTOMY HX FAMILY HISTORY: FAMILY [...] or hearing loss. (more content not included)... [facility] 12-13-2023 Telephone encounter Note Pt sees Isadora next week for follow up. Would like to have his labs drawn before next week's appointment. Orders pended. Umer Dale RN [facility] 12-13-2023 Miscellaneous Notes Pt sees Isadora next week for follow up. Would like to have his labs drawn before next week's appointment. Orders pended. Umer Dale RN documented in this encounter [facility] 10-17-2023 Telephone encounter Note Pt informed of BR[facility] message and agreeable to continue with current treatment/plans of care. Pt denies any questions, needs or concerns at this time. Appointment verified. Daniel Benítez, RN [facility] 10-17-2023 Telephone encounter Note ----- Message [...] him back as scheduled with repeat labs. [facility] 10-17-2023 Miscellaneous Notes Pt informed of [...] with repeat labs. documented in this encounter [facility] 08-17-2023 History of Present illness Narrative [...] follow-up with Dr. Shaw. 2 Prostate cancer [place] 8, node positive with prior treatment including [...] Ace Guzman MD cc: Arline Orosco MD [address] [place] [address] [address] Broussard. Portions of the above note extracted and edited from previous visit as well as active information included in the EMR. documented in this encounter [facility] 08-17-2023 Note HNO ID: [id number] Author: Ace GUZMAN MD Service: ? Author [...] 6 month, (LUP (more content not included)... [facility] 08-17-2023 Nurse Note AUA 12 Brenda Aguirre RN documented in this encounter [facility] 08-17-2023 Note HNO ID: [id number] Author: JOSE FRANCISCO BROUSSARD MD Service: ? [...] INSERT LENS,EX Bilateral 06/2019 Dr. Alfa [place], [place] TONSILLECTOMY HX FAMILY HISTORY: FAMILY HISTORY Problem [...] antibiotics use, epistaxi (more content not included)... [facility] 08-17-2023 History of Present illness Narrative PATIENT [...] CATARACT, INSERT LENS,EX Bilateral 06/2019 Dr. Grimm [facility], [place] TONSILLECTOMY HX FAMILY HISTORY: FAMILY HISTORY Problem [...] expressing neoplastic process 01/15/2022 Bone density DEXA ([place] [facility]) Osteopenia in bilateral femoral necks ASSESSMENT/PLAN: 1. [...] were considered. The patient was seen at [facility] [place] by Dr. Meza to evaluate for HIFU, [...] 6 months since 2019, previously given at [facility]. Since December 2022 he has been receiving [...] Broussard MD CC: [facility] documented in this encounter [facility] 08-07-2023 Miscellaneous Notes Patient has an appointment on 08/15/23 for labs then follow up on 08/17/23, please place lab orders. Deyanira Haskins MA documented in this encounter [facility] 07-21-2023 Note HNO ID: [id number] Author: LOLA ALLEN OD Service: ? Author Type: [employer] SCOUT Type: Progress Notes Filed: 07/21/2023 14:42 Note [...] retinal breaks July 21, 2023 2:38 PM [facility] 07-21-2023 History of Present illness Narrative ASSESSMENT/PLAN: [...] 2023 2:38 PM documented in this encounter [facility] 07-03-2023 Miscellaneous Notes Preoperative Education Checklist- General Surgery date: 07/04/23 Surgery time: 0800 Arrival time: 0700 1. Bring a photo ID and your insurance card with you the day of surgery. You will check in at the main lobby at the registration desk near the [facility]. 2. If you have a Living Will/Durable Power of [employer] for Health Care that is not on file here, please bring a copy the day of surgery. 3. Please shower/tub bath the night before surgery or morning of. 4. NO powder, lotion, perfume/cologne, aftershave, make-up, nail nepalese, deodorant, or hair products after you have [...] doctor for instructions documented in this encounter [facility] 07-03-2023 Nurse Note Preoperative Education Checklist- General Surgery date: 07/04/23 Surgery time: 0800 Arrival time: 0700 1. Bring a photo ID and your insurance card with you the day of surgery. You will check in at the main lobby at the registration desk near the [facility]. 2. If you have a Living Will/Durable Power of [employer] for Health Care that is not on file here, please bring a copy the day of surgery. 3. Please shower/tub bath the night before surgery or morning of. 4. NO powder, lotion, perfume/cologne, aftershave, make-up, nail nepalese, deodorant, or hair products after you have [...] tablet Check with prescribing doctor for instructions [facility] 06-26-2023 Note HNO ID: [id number] Author: JOSE FRANCISCO BROUSSARD MD Service: ? [...] distant metastases. Once again he conferred with [facility] urology, but is reluctant to consider [...] INSERT LENS,EX Bilateral 06/2019 Dr. Grimm - [place], [place] TONSILLECTOMY HX FAMILY HISTORY: FAMILY HISTORY Problem [...] Well developed/well nour (more content not included)... [facility] 06-26-2023 History of Present illness Narrative PATIENT [...] distant metastases. Once again he conferred with [facility] urology, but is reluctant to consider [...] INSERT LENS,EX Bilateral 06/2019 Dr. Alfa [place], [place] TONSILLECTOMY HX FAMILY HISTORY: FAMILY HISTORY Problem [...] expressing neoplastic process 01/15/2022 Bone density DEXA ([place] [facility]) Osteopenia in bilateral femoral necks ASSESSMENT/PLAN: 1. [...] were considered. The patient was seen at [facility] by Dr. Meza to evaluate [...] 6 months since 2019, previously given at [facility]. Since December 2022 he has been receiving at our facility. He will receive an injection today. Will monitor bone density DEXA every 2 to 3 years. Jose Francisco Borussard MD CC: Dr. Leroy Shaw, [facility] Urology documented in this encounter [facility] 05-24-2023 Note HNO ID: [id number] Author: JAMES ROBB MD Service: ? Author Type: Physician Type: Progress Notes Filed: 05/24/2023 08:14 Note Text: PATIENT NAME: Jm Barrow [facility] CLINICAL NOTE Radiation Oncology PATIENT NAME: Jm Barrow CLINIC NO.: [id number] ATTENDING PHYSICIAN: James Robb M.D. DATE OF SERVICE: May 24, 2023 I spent 15 minutes in the visit, with more than 50% of the total [id number] time of the visit in counseling / coordination of care. This appointment was done virtually with the consent of the patient. The appointment was conducted while I was at [facility]. HPI: Jm Barrow is a gentleman [...] 2023 cc: Dr. Megan Orosco MD [address] [place] [phone] [facility] 05-22-2023 Note HNO ID: [id number] Author: BARB KIRAN MD Service: ? Author [...] BP may drop by 10-15 points. His chip separator was concerned about autonomic neuropathy; recommending to [...] - 04/13/23 Hea (more content not included)... [facility] 05-17-2023 Note HNO ID: [id number] Author: Ace Guzman MD Service: ? Author [...] cancer Kita 8, (more content not included)... [facility] 05-12-2023 History of Present illness Narrative Radiology [...] NM INJECT: PET/CT BODY SCAN. 10.8 mCi [id number]. No other medications given.. ADMINISTRATION TIME: 1321 PATIENT DISCHARGED TO: Ambulatory patient, left [place] department area. A Diagnostic radioactive procedure has taken place, with no further precautions necessary other than routine body substance precautions. More information regarding radiation safety can be found using this link: [email or web address] [email or web address]-%20Diagnostic%20N uclear%20Medicine%20Procedures.p df SIGNATURE: RT Radha(R) PATIENT NAME: Jm Barrow DATE: May 12, 2023 TIME: 2:47 PM PAGER/CONTACT #: documented in this encounter [facility] 05-12-2023 Note HNO ID: [id number] Author: Umer Browne RT(R) Service: ? Author Type: Technologist Type: Progress Notes Filed: 05/12/2023 2:47 PM Note Text: RADIOLOGY SERVICE PROGRESS NOTE SERVICE DATE: 05/12/2023 SERVICE TIME: 2:47 PM PATIENT IDENTITY VERIFICATION COMPLETED USING TWO (2) STANDARD IDENTIFIERS: Name and Date of confirmed by patient verbally POST EXAM PIV STATUS: Discontinued PROCEDURE TYPE: NM INJECT: PET/CT BODY SCAN. 10.8 mCi [id number]. No other medications given.. ADMINISTRATION TIME: 1321 PATIENT DISCHARGED TO: Ambulatory patient, left [place] department area. A Diagnostic radioactive procedure has taken place, with no further precautions necessary other than routine body substance precautions. More information regarding radiation safety can be found using this link: [email or web address] 0Protection %[email or web address]-%20Diagnostic%20Nuclear%20Me dicine%20Procedures.pdf SIGNATURE: RT Radha(R) PATIENT NAME: Jm Barrow DATE: May 12, 2023 TIME: 2:47 PM PAGER/CONTACT #: [facility] 05-12-2023 Note HNO ID: [id number] Author: Tiffany Riddle RN Service: ? Author [...] DATE: May 12, 2023 TIME: 1:21 PM [facility] 04-11-2023 Miscellaneous Notes Auth#:[id number] Date Range: 04-11-23 to 07-09-2023 [id number]/PSMA- piflufolastat (Natoarify) Khadijah GUTIERREZ Ace Montoya INS Contact Number: Intake: online Case/Ref#: [id number] Notes: 04/11/2023 Authorized online via Sherie/Abdi routed to [place] and Umer for scheduling in [place] per patient's request Authorization number: PSMA Authorization date range: PSMA Primary Insurance: [employer] Diagnosis: Prostate cancer (HCC) [C61] DX Imaging: PET Scan: 06/02/2022 PET Pathology: 02/14/2000 Pelvic lymph node biopsy ([facility], Dr. Doug Regalado) Metastatic prostate adenocarcinoma involving 1 of 3 lymph nodes (right obturator LN) PROSTATE GLAND, LEFT, LEVELS 1-4 , NEEDLE BIOPSIES ([id number], A-D) - PROSTATIC ADENOCARCINOMA, KITA SCORE 7 (4+3). Comment: Adenocarcinoma involves 60% of the needle biopsy specimens. Perineural invasion is present. 2. PROSTATE GLAND, RIGHT, LEVELS 1-4, NEEDLE BIOPSIES ([id number]; E-H) - PROSTATIC ADENOCARCINOMA, KITA SCORE 7 [...] No - Schedule as requested Comments for Senior Sas Developer: EL: As soon as insurance will allow ROUTE TO SCHEDULERS POOL P PET LINING MECHANIC or P [place] SPECIAL STUDIES This form is used for MAIN CAMPUS APPOINTMENTS ONLY. Is this request for a Main [place] PET scan appointment? Yes: Skin Lifter Bacon: Teresa Romero Requesting Person Dr guzman: Area Code + Phone/Pager: [phone] Who do we call to schedule this appointment? Other Contact: PSMA pet please message anne browne in [place] Requesting Staff Dr guzman Area Code + Phone/Pager: [phone] PET Orders (A delay in scheduling will [...] COORD REVIEW [facility] documented in this encounter [facility] 04-10-2023 Note HNO ID: [id number] Author: Jose Francisco Broussard MD Service: ? [...] he was seen by Dr. Robb at [facility] to discuss possible brachytherapy for [...] CATARACT, INSERT LENS,EX Bilateral 06/2019 Dr. Grimm [facility], [place] TONSILLECTOMY HX FAMILY HISTORY: FAMILY HISTORY Problem [...] jaundice. ENDO/URO: Negati (more content not included)... [facility] 03-27-2023 Note HNO ID: [id number] Author: Skye Murphy PA-C Service: ? Author Type: Physician Show Dog Trainer Type: Progress Notes Filed: 03/27/2023 3:12 PM Note Text: Skin Biopsy Procedure Note Skin Biopsy Accession Number: [id number] Biopsy Date: 03/27/2023 Referring physician: Barb Kiran [...] Procedure Note Procedure confirmed with provider and lab support tech. Yes, left leg 2 skin biopsies. The [...] home. Specimens were labeled and sent to [facility] Cutaneous Nerve Laboratory. Procedure was performed by: Skye Murphy PA-C Assistance in supply/equipment preparation performed by: JUSTINO Mosley Sign out is complete. [facility] 03-27-2023 History of Present illness Narrative Skin Biopsy Procedure Note Skin Biopsy Accession Number: [id number] Biopsy Date: 03/27/2023 Referring physician: Barb Kiran [...] Procedure Note Procedure confirmed with provider and lab support tech. Yes, left leg 2 skin biopsies. The [...] home. Specimens were labeled and sent to [facility] Cutaneous Nerve Laboratory. Procedure was performed by: Skye Murphy PA-C Assistance in supply/equipment preparation performed by: JUSTINO Mosley Sign out is complete. documented in this encounter [facility] 03-27-2023 Note HNO ID: [id number] Author: Martha White Service: ? Author Type: [...] Care Visit completed when applicable. Martha White [facility] 03-27-2023 History of Present illness Narrative UNIVERSAL [...] applicable. Martha White documented in this encounter [facility] 03-27-2023 Note HNO ID: [id number] Author: Martha White Service: ? Author Type: [...] Care Visit completed when applicable. Martha White [facility] 03-27-2023 History of Present illness Narrative UNIVERSAL [...] applicable. Martha White documented in this encounter [facility] 02-23-2023 History of Present illness Narrative [...] follow-up with Dr. Shaw. 2 Prostate cancer [place] 8, node positive with prior treatment including [...] Ace Guzman MD cc: Arline Orosco MD [address] [place] [phone] [address] Broussard. Portions of the above note extracted and edited from previous visit as well as active information included in the EMR. documented in this encounter [facility] 02-23-2023 Nurse Note AUA= 12 documented in this encounter [facility] 12-28-[address] Broussard spoke w/ Dr Guzman regarding radiation seed implant for pt. Dr Guzman recommends pt see Dr Robb as scheduled. Pt notified and verbalizes understanding. 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 Grimm [place], [place] TONSILLECTOMY HX Medications Current Outpatient Medications [...] male who presents with a history of [place] 8 prostate cancer, node positive- s/p abdominal [...] Meza MD [facility] Manny Meza MD Urologic Staff [facility] Medical Decision Making: Problems: Moderate: New problem with uncertain prognosis Data: Unique test result(s) reviewed: 1 Unique test(s) ordered: 1 Risk: Moderate: Moderate risk from testing/treatment Medical Decision Making Level: 4 - Moderate documented in this encounter [facility] 12-07-2022 Nurse Note Summary: BLADDER S CAN PATIENT PVR READING 0mL documented in this encounter [facility] 11-24-2022 History of Present illness Narrative [...] Ace Guzman MD cc: [place] [address] [place] [phone] [address] Broussard. Portions of the above note extracted and edited from previous visit as well as active information included in the EMR. documented in this encounter [facility] 09-22-2022 History of Present illness Narrative [...] INSERT LENS,EX Bilateral 06/2019 Dr. Alfa [place], [place] TONSILLECTOMY HX FAMILY HISTORY: FAMILY HISTORY Problem [...] expressing neoplastic process 01/15/2022 Bone density DEXA ([facility]) Osteopenia in bilateral femoral necks ASSESSMENT/PLAN: 1. [...] [facility] documented in this encounter [facility] 08-25-2022 Nurse Note AUA=21 documented in this encounter [facility] 08-15-2022 Miscellaneous Notes Radiology Service [...] 2022 1:43 PM documented in this encounter [facility] 08-15-2022 Nurse Note Radiology Service Progress [...] TIME: 12:43 PM documented in this encounter [facility] 07-25-2022 Miscellaneous Notes I will ask [...] has been elevated and he went to [facility] this past week for that. Pt states he was started on metoprolol and on other med that he can't remember the name of. . Barbara: please get records BRM: please advise Teresa Angelo RN documented in this encounter [facility] 07-18-2022 History of Present illness Narrative [...] 2022 1:49 PM documented in this encounter [facility] 07-13-2022 Miscellaneous Notes Pt notified and [...] to Dr. Broussard. documented in this encounter [facility] 06-27-2022 Miscellaneous Notes Thanks. BRClem Jm has decided to move forward with the Xtandi, he received his 14 day free trial on 06/24/22. I was able to secure a ronda that will cover next month and we will pursue free drug following that. He will complete the application when he comes in for his 07/07/[address] appt. Matthias Pa [facility] documented in this encounter [facility] 06-22-2022 Miscellaneous Notes Thanks, order signed. 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 Rx Plan: Other: [facility]: Xtandi Cover My Meds Torres: [id number] Determination: Approved Prior Authorization/Case #: [id number] Prior Authorization Expiration: 06/21/2023 Time to PA Submission in CMM: 15 min Time to PA Determination in CMM: Same day Additional Information: $3,107.12 - will need to reach out to patient For questions relating to this submission, please contact [facility] at [phone] documented in this encounter [facility] 06-20-2022 History of Present illness Narrative [...] INSERT LENS,EX Bilateral 06/2019 Dr. Grimm - [place], [place] TONSILLECTOMY HX FAMILY HISTORY: FAMILY HISTORY [...] ([facility]) Prostate adenocarcinoma, [place] composite score 8 LABS: Hemoglobin (g/dL) Date [...] expressing neoplastic process 01/15/2022 Bone density DEXA ([facility]) Osteopenia in bilateral femoral necks ASSESSMENT/PLAN: 1. Prostate cancer (HCC) - ICD9: 185, ICD10: C61 Prostate cancer diagnosed January 2000 (prostate biopsy 01/20/2000). Initial staging revealed evidence of lymph node involvement (pelvic lymph node biopsy 02/14/2000). Initial stage T3b, N1, M0; [place] 8. The patient received primary treatment with external beam radiation therapy which was completed 2000. ADT with Lupron started at the time of diagnosis and continued until July 2013. January 2017 the patient developed an increasing PSA and Lupron resumed, currently given every 6 months (last given October 2021 at [facility]). Due to an increasing PSA [...] months since 2019, last given May 2022 ([facility]). Will continue as planned. Would monitor bone density DEXA every 2 to 3 years. Jose Francisco Broussard MD CC: Dr. Leroy Shaw documented in this encounter [facility] 06-10-2022 Evaluation note Diagnosis Cancer of prostate w/med recur risk (T2b-c or Kita 7 or PSA 10-20) ([facility])- Primary Malignant neoplasm of prostate documented in this encounter [facility]01-24-2023 History of Present illness Narrative* G [...] follow-up with his urologist. 2 Prostate cancer [place] 8, node positive with prior treatment including [...] Ace Guzman MD cc: [place] [address] [place] [phone] Portions of the above note extracted and edited from previous visit as well as active information included in the EMR. [facility] History of Present illness Narrative* Umer [...] 1327 PATIENT DISCHARGED TO: Ambulatory patient, left [place] department area. A Diagnostic radioactive procedure has [...] 2022 TIME: 1:40 PM [facility] Miscellaneous Notes* Telephone Encounter - Lena Dowd RN - 04/20/2022 8:11 AM EST Will submit for [facility] approval closer to May 2022. submitted 05-06-22 * Telephone Encounter - Lena Dowd RN - 04/19/2022 12:48 PM EST Auth#: [id number] Date Range: 05/06/2022 to 08/03/2022 [id number]/PSMA- piflufolastat F [id number] NPI: Donte Montes [id number] Member ID : Abdi Aragon [id number] INS Contact Number: [facility] [phone] Intake: Sophia started case Case/Ref#: [id number] Notes: faxed 11 pages clinical to Clinical Review Nurse at [phone]. Sophia stated case not meeting criteria and needed Peer to Peer. Email to [facility]/ Dr Simon Barrow [id number] PET/CT Prostate scan needs Peer to Peer at [phone] case [id number] email to Dr Megan Aguirre RN, Jm Barrow [id number] PET/CT Prostate scan needs Peer to Peer at [phone] case [id number]. Did you get approval? On epic referral [facility] documented approval: Authorization #: [id number] Valid From: 05/06/2022 to 08/03/2022 * Telephone Encounter - Lena Dowd RN - 04/19/2022 12:42 PM EST Authorization number: PSMA [id number] Authorization date range: PSMA 05/06/2022 to 08/03/2022 1-dos Primary Insurance: Abdi Aragon [id number] Diagnosis: History of prostate cancer [Z85.46] Cancer [...] No - Schedule as requested Comments for Senior Sas Developer: May 2022 ROUTE TO SCHEDULERS POOL P PET LINING MECHANIC MC or P [place] SPECIAL STUDIES MC * Telephone Encounter - Maral Dominique - 04/19/2022 11:49 AM EST This form is used for MAIN CAMPUS APPOINTMENTS ONLY. Is this request for a Main [place] PET scan appointment? Yes: Skin Lifter Bacon: Maral Dominique Requesting Person (Last Name, First Name): Rasta Dominique Area Code + Phone/Pager: [phone] Who do we call to schedule this appointment? Other Contact: [facility]MA PET in [place] ([place]), route to Anne Browne to schedule. Requesting Staff Jud Guzman Area Code + Phone/Pager: [phone] PET Orders (A delay in scheduling will [...] need anesthesia? NO Send requests to [facility] RE[facility] note* Diagnosis History of prostate cancer- Primary Personal history of malignant neoplasm of prostate Cancer of prostate w/med recur risk (T2b-c or Kita 7 or PSA 10-20) (HCC) Malignant neoplasm of prostate documented in this encounter [facility]11-08-2022 Nurse Note* Mali Mora LPN - 03/22/2022 1:12 PM EST AUA= 11 documented [facility] History of Present illness Narrative* G [...] follow-up with his urologist. 2 Prostate cancer [place] 8, node positive with prior treatment including [...] Ace Guzman MD cc: Arline Orosco MD [address] [place] [phone] Portions of the above note extracted and edited from previous visit as well as active information included in the EMR. [facility] History of Present illness Narrative* Lola [...] [facility]90 degrees of AXIS [...] 23, 2021 3:06 PM documented in [facility] History of Past illness Narrative* Problem Noted Date Resolved Date BPH (benign prostatic hyperplasia) 06/23/2021 documented as of this encounter (statuses as of 08/23/2021) [address]09-2022 History of Past illness Narrative* Problem Noted Date Resolved Date BPH (benign prostatic hyperplasia) 06/23/2021 documented as of this encounter (statuses as of 03/28/2022) [address]09-2022 History of Past illness Narrative* Problem Noted Date Resolved Date BPH (benign prostatic hyperplasia) 06/23/2021 documented as of this encounter (statuses as of 05/31/2022) [address]09-2022 History of Past illness Narrative* Problem Noted Date Resolved Date BPH (benign prostatic hyperplasia) 06/23/2021 documented as of this encounter (statuses as of 06/10/2022) [address]09-2022 History of Past illness Narrative* Problem Noted Date Resolved Date BPH (benign prostatic hyperplasia) 06/23/2021 documented as of this encounter (statuses as of 06/16/2022) [address]09-2022 History of Past illness Narrative* Problem Noted Date Resolved Date BPH (benign prostatic hyperplasia) 06/23/2021 documented as of this encounter (statuses as of 06/22/2022) [address]09-2022 History of Past illness Narrative* Problem Noted Date Resolved Date BPH (benign prostatic hyperplasia) 06/23/2021 documented as of this encounter (statuses as of 06/22/2022) [address]09-2022 History of Past illness Narrative* Problem Noted Date Resolved Date BPH (benign prostatic hyperplasia) 06/23/2021 documented as of this encounter (statuses as of 06/23/2022) [address]09-2022 History of Past illness Narrative* Problem Noted Date Resolved Date BPH (benign prostatic hyperplasia) 06/23/2021 documented as of this encounter (statuses as of 06/27/2022) [address]09-2022 History of Past illness Narrative* Problem Noted Date Resolved Date BPH (benign prostatic hyperplasia) 06/23/2021 documented as of this encounter (statuses as of 07/07/2022) [address]09-2022 History of Past illness Narrative* Problem Noted Date Resolved Date BPH (benign prostatic hyperplasia) 06/23/2021 documented as of this encounter (statuses as of 07/13/2022) [address]09-2022 History of Past illness Narrative* Problem Noted Date Resolved Date BPH (benign prostatic hyperplasia) 06/23/2021 documented as of this encounter (statuses as of 07/18/2022) [address]09-2022 History of Past illness Narrative* Problem Noted Date Resolved Date BPH (benign prostatic hyperplasia) 06/23/2021 documented as of this encounter (statuses as of 07/26/2022) [address]09-[address]22 History of Past illness Narrative* Problem Noted Date Resolved Date BPH (benign prostatic hyperplasia) 06/23/2021 documented as of this encounter (statuses as of 08/16/2022) [address]09-2022 History of Past illness Narrative* Problem Noted Date Resolved Date BPH (benign prostatic hyperplasia) 06/23/2021 documented as of this encounter (statuses as of 09/23/2022) [address]09-2022 History of Past illness Narrative* Problem Noted Date Diagnosed Date Resolved Date BPH (benign prostatic hyperplasia) 06/23/2021 documented as of this encounter (statuses as of 11/25/2022) [address]09-[address]22 History of Past illness Narrative* Problem Noted Date Diagnosed Date Resolved Date BPH (benign prostatic hyperplasia) 06/23/2021 documented as of this encounter (statuses as of 12/08/2022) [address]09-2022 History of Past illness Narrative* Problem Noted Date Diagnosed Date Resolved Date BPH (benign prostatic hyperplasia) 06/23/2021 documented as of this encounter (statuses as of 12/12/2022) [address]09-2022 History of Past illness Narrative* Problem Noted Date Diagnosed Date Resolved Date BPH (benign prostatic hyperplasia) 06/23/2021 documented as of this encounter (statuses as of 12/27/2022) [address]09-[address]22 History of Past illness Narrative* Problem Noted Date Diagnosed Date Resolved Date BPH (benign prostatic hyperplasia) 06/23/2021 documented as of this encounter (statuses as of 12/29/2022) [address]09-2022 History of Past illness Narrative* Problem Noted Date Diagnosed Date Resolved Date BPH (benign prostatic hyperplasia) 06/23/2021 documented as of this encounter (statuses as of 03/01/2023) [address]09-[address]22 History of Past illness Narrative* Problem Noted Date Diagnosed Date Resolved Date BPH (benign prostatic hyperplasia) 06/23/2021 documented as of this encounter (statuses as of 03/28/2023) [address]09-2022 History of Past illness Narrative* Problem Noted Date Diagnosed Date Resolved Date BPH (benign prostatic hyperplasia) 06/23/2021 documented as of this encounter (statuses as of 03/28/2023) [address]-2022 History of Past illness Narrative* Problem Noted Date Diagnosed Date Resolved Date BPH (benign prostatic hyperplasia) 06/23/2021 documented as of this encounter (statuses as of 04/12/2023) [address]09-2022 History of Past illness Narrative* Problem Noted Date Diagnosed Date Resolved Date BPH (benign prostatic hyperplasia) 06/23/2021 documented as of this encounter (statuses as of 06/26/2023) [address]09-2022 History of Past illness Narrative* Problem Noted Date Diagnosed Date Resolved Date BPH (benign prostatic hyperplasia) 06/23/2021 documented as of this encounter (statuses as of 06/27/2023) [address]09-2022 History of Past illness Narrative* Problem Noted Date Diagnosed Date Resolved Date BPH (benign prostatic hyperplasia) 06/23/2021 documented as of this encounter (statuses as of 07/21/2023) [address]-2022 History of Past illness Narrative* Problem Noted Date Diagnosed Date Resolved Date BPH (benign prostatic hyperplasia) 06/23/2021 documented as of this encounter (statuses as of 08/08/2023) [address]09-2022 History of Past illness Narrative* Problem Noted Date Diagnosed Date Resolved Date BPH (benign prostatic hyperplasia) 06/23/2021 documented as of this encounter (statuses as of 08/18/2023) [facility]02-09-2022 History of Past illness Narrative* Problem Noted Date Diagnosed Date Resolved Date BPH (benign prostatic hyperplasia) 06/23/2021 documented as of this encounter (statuses as of 08/24/2023) [facility]20[facility] History of Past illness Narrative* Problem Noted Date Diagnosed Date Resolved Date BPH (benign prostatic hyperplasia) 06/23/2021 documented as of this encounter (statuses as of 08/31/2023) [facility] note* Diagnosis 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 Lens replaced by other means Monocular diplopia of right eye [facility] Diagnosis Prostate cancer (HCC)- Primary Malignant neoplasm of prostate [facility] Diagnosis Prostate cancer (HCC)- Primary Malignant neoplasm of prostate [facility] Diagnosis 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 Lens replaced by other means Myopia with astigmatism and presbyopia, bilateral PVD (posterior vitreous detachment), both eyes Vitreous degeneration Dry eye syndrome, bilateral [facility]* Diagnosis Cancer of prostate w/med recur risk (T2b-c or [place] 7 or PSA 10-20) (HCC) Malignant neoplasm of prostate [facility] noteNo assessment information availableA[facility] Work Phone: Evaluation note* Diagnosis Prostate cancer (HCC)- Primary Malignant neoplasm of prostate Osteopenia of multiple sites Primary hypertension Unspecified essential hypertension [facility] Diagnosis Malignant neoplasm of prostate (HCC)- Primary Malignant neoplasm of prostate [facility] Diagnosis Malignant neoplasm of prostate (HCC) Malignant neoplasm of prostate [facility]* Diagnosis Screening for genitourinary condition Screening for other and unspecified genitourinary condition [facility] Diagnosis Osteopenia of multiple sites- Primary Prostate cancer (HCC) Malignant neoplasm of prostate [facility]* Diagnosis History of prostate cancer- Primary Personal history of malignant neoplasm of prostate Prostate cancer (HCC) Malignant neoplasm of prostate [facility] Diagnosis Orthostatic hypotension- Primary [facility] Diagnosis Orthostatic hypotension- Primary [facility] Diagnosis Prostate cancer (HCC)- Primary Malignant neoplasm of prostate Osteopenia of multiple sites [facility] Diagnosis Prostate cancer (HCC)- Primary Malignant neoplasm of prostate Osteopenia of multiple sites [facility]* Diagnosis 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 Lens replaced by other means PVD (posterior vitreous detachment), both eyes Vitreous degeneration [facility]* Diagnosis Prostate cancer (HCC)- Primary Malignant neoplasm of prostate [facility] Diagnosis Prostate cancer (HCC)- Primary Malignant neoplasm of prostate Osteopenia of multiple sites [facility] Diagnosis Onset Date Resolution Status AAA (abdominal aortic aneurysm) acute Carotid stenosis, bilateral acute Current smoker acute [facility] Work Phone: Evaluation note* Diagnosis Prostate cancer (HCC)- Primary Malignant neoplasm of prostate [facility]* Diagnosis Prostate cancer (HCC)- Primary Malignant neoplasm of prostate Osteopenia of multiple sites [facility]* Diagnosis Prostate cancer (HCC)- Primary Malignant neoplasm of prostate Pain of right hip Osteopenia of multiple sites Encounter for screening for osteoporosis Special screening for osteoporosis Hypercalcemia [facility]* Diagnosis Malignant neoplasm of prostate (HCC) Malignant neoplasm of prostate [facility]* Diagnosis History of prostate cancer Personal history of malignant neoplasm of prostate Cancer of prostate w/med recur risk (T2b-c or [place] 7 or PSA 10-20) (HCC) Malignant neoplasm of prostate [facility] Diagnosis Prostate cancer (HCC)- Primary Malignant neoplasm of prostate Osteopenia of multiple sites [facility] Diagnosis Malignant neoplasm of prostate (HCC)- Primary Malignant neoplasm of prostate [facility]* Diagnosis Onychomycosis- Primary Dermatophytosis of [...] plan to see him in several months. -[place] [id number] DO Work Phone: InstructionsNot on filedocumented in this encounter [facility] Diagnostic Procedure Only (Routine) - Pending Review Specialty Diagnoses / Procedures Referred By Contac t Referred To Contact MOLECULAR & FUNCTIONAL IMAGING Diagnoses History of prostate cancer Cancer of prostate w/med recur risk (T2b-c or [place] 7 or PSA 10-20) ([facility]) Procedures NM PET/CT PROSTATE WHOLE BODY IMAGING PET IMAGING CT ATTENUATION SKULL BASE MID-THIGH Ace Guzman MD [address] [place] [address] [place] [address] Molecular & Functional Imaging [address] [place] [address] Referral ID Status Reason Start Date Expiration Date Visits Requested Visits Authorized [id number] Pending Review Auto-Generat ed Referral 05/22/2022 04/21/2023 1 1 [facility] for referral (narrative)* Diagnostic Procedure Only (Routine) - Authorized Specialty Diagnoses / Procedures Referred By Contac t Referred To Contact MOLECULAR & FUNCTIONAL IMAGING Diagnoses Prostate cancer (HCC) Procedures NM PET/CT PROSTATE WHOLE BODY IMAGING PET IMAGING CT ATTENUATION SKULL BASE MID-THIGH Ace Guzman MD [address] [place] [address] [place] [address] Molecular & Functional Imaging [address] [place] [address] Referral ID Status Reason Start Date Expiration Date Visits Requested Visits Authorized [id number] Authorized Auto-Generat ed Referral 05/26/2023 03/24/2024 1 1 [facility] for referral (narrative)* Diagnostic Procedure Only (Routine) - New Request Specialty Diagnoses / Procedures Referred By Contac t Referred To Contact XR IMAGING Diagnoses Prostate cancer (HCC) Pain of right hip Osteopenia of multiple sites Procedures DXA-AXIAL SKELETON Isadora Carty PA-C [address] [place] [address] [place] [address] Xr Imaging [facility] Referral ID Status Reason Start Date Expiration Date Visits Requested Visits Authorized [id number] New Request Auto-Generat ed Referral 12/20/2023 01/18/2025 1 1 * Diagnostic Procedure Only (Routine) - New Request Specialty Diagnoses / Procedures Referred By Contac t Referred To Contact XR IMAGING Diagnoses Prostate cancer (HCC) Pain of right hip Procedures XR PELVIS 2V INLET/OUTLET RADIOLOGIC EXAMINATION PELVIS 1/2 VIEWS Isadora Carty PA-C [address] [place] [address] [place] [address] Referral ID Status Reason Start Date Expiration Date Visits Requested Visits Authorized [id number] New Request Auto-Generat ed Referral 12/20/2023 01/18/2025 1 1 * Diagnostic Procedure Only (Routine) - New Request Specialty Diagnoses / Procedures Referred By Contac t Referred To Contact XR IMAGING Diagnoses Prostate cancer (HCC) Pain of right hip Procedures XR HIP 2V AP/LAT RIGHT (AK,FL,ME,UN) RADEX HIP UNILATERAL WITH PELVIS 2-3 VIEWS Isadora Carty PA-C [address] [place] [address] Xr Imaging [place] [address] Referral ID Status Reason Start Date Expiration Date Visits Requested Visits Authorized [id number] New Request Auto-Generat ed Referral 12/20/2023 01/18/2025 1 1 [facility] for referral (narrative)* Diagnostic Procedure Only (Routine) - Closed Specialty Diagnoses / Procedures Referred By Contac t Referred To Contact MOLECULAR & FUNCTIONAL IMAGING Diagnoses Malignant neoplasm of prostate (HCC) Procedures NM PET/CT PROSTATE WHOLE BODY IMAGING PET IMAGING CT ATTENUATION SKULL BASE MID-THIGH James Robb MD [address] [place] [address] Molecular & Functional Imaging [address] [place] [address] Referral ID Status Reason Start Date Expiration Date V isits Requested Visits Authorized [id number] Closed Auto-Generate d Referral 01/04/2023 02/03/2024 1 1 [facility] for referral (narrative)* Diagnostic Procedure Only (Routine) [...] F-18 PSMA Ace De Leon MD [address] [place] [address] Molecular & Functional Imaging [address] [place] [address] Referral ID Status Reason Start Date Expiration Date V isits Requested Visits Authorized [id number] Closed Auto-Generate d Referral 05/06/2022 08/03/2022 1 1 [facility] for referral (narrative)* Diagnostic Procedure Only (Routine) - New Request Specialty Diagnoses / Procedures Referred By Contac t Referred To Contact MOLECULAR & FUNCTIONAL IMAGING Diagnoses Malignant neoplasm of prostate (HCC) Procedures NM PET/CT PROSTATE WHOLE BODY IMAGING PET IMAGING CT ATTENUATION SKULL BASE MID-THIGH Ace Guzman MD [address] [place] [address] [place] [address] Molecular & Functional Imaging [address] [place] [id number] Referral ID Status Reason Start Date Expiration Date Visits Requested Visits Authorized [id number] New Request Auto-Generat ed Referral 05/17/2024 03/16/2025 1 1 T [facility] Summary Purpose Family History Unknown Family [...] Documents on File Type Date Recorded 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 Advance Directive(s) 06/24/2021 8:42 AM Advance Directive(s) 11/08/2019 9:14 AM Advance Directive Response Recorded Date/ Time Advance Directives No September 12, 2018 6:07pm Reason for Referral Specialty Diagnoses / Procedures Referred By Contac t Referred To Contact Oncology Diagnoses Cancer of prostate w/med recur risk (T2b-c or [place] 7 or PSA 10-20) (HCC) Procedures CONSULT TO ONCOLOGY OFFICE/OUTPATIENT NEW HIGH MDM 60-74 MINUTES Ace Guzman MD [address] [place] [address] [place] [address] Referral ID Status Reason Start Date Expiration Date Visits Requested Visits Authorized [id number] Pending Review PCP Requested Referral 06/07/2022 06/07/2023 1 1 Specialty Diagnoses / Procedures Referred By Contac t Referred To Contact MR IMAGING Diagnoses Cancer of prostate w/med recur risk (T2b-c or [place] 7 or PSA 10-20) (HCC) Procedures MRI PROSTATE WO/W IVCON MRI PELVIS W/O & W/CONTRAST MATERIAL Ace Guzman MD [address] [place] [address] [place] [address] [facility] Referral ID Status Reason Start Date Expiration Date Visits Requested Visits Authorized [id number] Authorized Auto-Generat ed Referral 06/07/2022 07/07/2023 1 1 Referral ID Status Reason Start Date Expiration Date V isits Requested Visits Authorized [id number] Closed Auto-Generate d Referral 06/07/2022 07/07/2023 1 1 Specialty Diagnoses / Procedures Referred By Contac t Referred To Contact Urology Diagnoses Malignant neoplasm of prostate (HCC) Procedures CONSULT TO UROLOGY OFFICE/OUTPATIENT [facility] MDM 60-74 MINUTES Ace Guzman MD [address] [place] [address] Referral ID Status Reason Start Date Expiration Date Visits Requested Visits Authorized [id number] Pending Review PCP Requested Referral 11/24/2022 11/24/2023 1 1 Specialty Diagnoses / Procedures Referred By Contac t Referred To Contact Radiation Oncology Diagnoses Malignant neoplasm of prostate (HCC) Procedures RAD/ONC CONSULT OFFICE/OUTPATIENT [facility] 60-74 MINUTES Manny Meza MD [address] [facility] [address] [place] [address] Referral ID Status Reason Start Date Expiration Date Visits Requested Visits Authorized [id number] Pending Review PCP Requested Referral 12/07/2022 12/07/2023 [...] and content) DATE CREATED AUTHOR 11/07/[address] [facility] DATE CREATED AUTHOR AUTHOR'S ORGANIZ ATION 08/04/2022 [facility] DATE CREATED AUTHOR AUTHOR'S ORGANIZ ATION 08/18/2022 [facility] DATE CREATED AUTHOR AUTHOR'S ORGANIZ ATION 10/25/2022 [facility] DATE CREATED AUTHOR AUTHOR'S ORGANIZ ATION 10/25/2022 [facility] DATE CREATED AUTHOR AUTHOR'S ORGANIZ ATION 02/19/2023 [facility] DATE CREATED AUTHOR AUTHOR'S ORGANIZ ATION 10/18/2023 [facility] DATE CREATED AUTHOR AUTHOR'S ORGANIZ ATION 11/29/2023 [facility] DATE CREATED AUTHOR AUTHOR'S ORGANIZ ATION 12/08/2023 [facility] DATE CREATED AUTHOR AUTHOR'S ORGANIZ ATION 01/12/2024 [facility] DATE CREATED AUTHOR AUTHOR'S ORGANIZ ATION 02/24/2024 [facility] DATE CREATED AUTHOR AUTHOR'S ORGANIZ ATION 04/28/[address] [facility] EPIC Source Comments (unrecognize d section and content) In the event this informatio n is protected by the Federal Confidentiality of Alcohol and Drug Abuse Patient Records regulations: The Federal rules restrict any use of the information to criminally investigate or prosecute any alcohol or drug abuse patient.[facility] the event this information is protected by the Federal Confidentiality of Alcohol and Drug Abuse Patient Records regulations: The Federal rules restrict any use of the information to criminally investigate or prosecute any alcohol or drug abuse patient.[facility] the event this information is protected by the Federal Confidentiality of Alcohol and Drug Abuse Patient Records regulations: The Federal rules restrict any use of the information to criminally investigate or prosecute any alcohol or drug abuse patient.[facility] the event this information is protected by the Federal Confidentiality of Alcohol and Drug Abuse Patient Records regulations: The Federal rules restrict any use of the information to criminally investigate or prosecute any alcohol or drug abuse patient.[facility] the event this information is protected by the Federal Confidentiality of Alcohol and Drug Abuse Patient Records regulations: The Federal rules restrict any use of the information to criminally investigate or prosecute any alcohol or drug abuse patient.[facility] the event this information is protected by the Federal Confidentiality of Alcohol and Drug Abuse Patient Records regulations: The Federal rules restrict any use of the information to criminally investigate or prosecute any alcohol or drug abuse patient.[facility] the event this information is protected by the Federal Confidentiality of Alcohol and Drug Abuse Patient Records regulations: The Federal rules restrict any use of the information to criminally investigate or prosecute any alcohol or drug abuse patient.[facility] the event this information is protected by the Federal Confidentiality of Alcohol and Drug Abuse Patient Records regulations: The Federal rules restrict any use of the information to criminally investigate or prosecute any alcohol or drug abuse patient.[facility] the event this information is protected by the Federal Confidentiality of Alcohol and Drug Abuse Patient Records regulations: The Federal rules restrict any use of the information to criminally investigate or prosecute any alcohol or drug abuse patient.[facility] the event this information is protected by the Federal Confidentiality of Alcohol and Drug Abuse Patient Records regulations: The Federal rules restrict any use of the information to criminally investigate or prosecute any alcohol or drug abuse patient.[facility] the event this information is protected by the Federal Confidentiality of Alcohol and Drug Abuse Patient Records regulations: The Federal rules restrict any use of the information to criminally investigate or prosecute any alcohol or drug abuse patient.[facility] the event this information is protected by the Federal Confidentiality of Alcohol and Drug Abuse Patient Records regulations: The Federal rules restrict any use of the information to criminally investigate or prosecute any alcohol or drug abuse patient.[facility] the event this information is protected by the Federal Confidentiality of Alcohol and Drug Abuse Patient Records regulations: The Federal rules restrict any use of the information to criminally investigate or prosecute any alcohol or drug abuse patient.[facility] the event this information is protected by the Federal Confidentiality of Alcohol and Drug Abuse Patient Records regulations: The Federal rules restrict any use of the information to criminally investigate or prosecute any alcohol or drug abuse patient.[facility] the event this information is protected by the Federal Confidentiality of Alcohol and Drug Abuse Patient Records regulations: The Federal rules restrict any use of the information to criminally investigate or prosecute any alcohol or drug abuse patient.[facility] the event this information is protected by the Federal Confidentiality of Alcohol and Drug Abuse Patient Records regulations: The Federal rules restrict any use of the information to criminally investigate or prosecute any alcohol or drug abuse patient.[facility] the event this information is protected by the Federal Confidentiality of Alcohol and Drug Abuse Patient Records regulations: The Federal rules restrict any use of the information to criminally investigate or prosecute any alcohol or drug abuse patient.[facility] the event this information is protected by the Federal Confidentiality of Alcohol and Drug Abuse Patient Records regulations: The Federal rules restrict any use of the information to criminally investigate or prosecute any alcohol or drug abuse patient.[facility] the event this information is protected by the Federal Confidentiality of Alcohol and Drug Abuse Patient Records regulations: The Federal rules restrict any use of the information to criminally investigate or prosecute any alcohol or drug abuse patient.[facility]In the event this information is protected by the Federal Confidentiality of Alcohol and Drug Abuse Patient Records regulations: The Federal rules restrict any use of the information to criminally investigate or prosecute any alcohol or drug abuse patient.[facility] the event this information is protected by the Federal Confidentiality of Alcohol and Drug Abuse Patient Records regulations: The Federal rules restrict any use of the information to criminally investigate or prosecute any alcohol or drug abuse patient.[facility] the event this information is protected by the Federal Confidentiality of Alcohol and Drug Abuse Patient Records regulations: The Federal rules restrict any use of the information to criminally investigate or prosecute any alcohol or drug abuse patient.[facility] HospitalIn the event this information is protected by the Federal Confidentiality of Alcohol and Drug Abuse Patient Records regulations: The Federal rules restrict any use of the information to criminally investigate or prosecute any alcohol or drug abuse patient.[facility]In the event this information is protected by the Federal Confidentiality of Alcohol and Drug Abuse Patient Records regulations: The Federal rules restrict any use of the information to criminally investigate or prosecute any alcohol or drug abuse patient.[facility] the event this information is protected by the Federal Confidentiality of Alcohol and Drug Abuse Patient Records regulations: The Federal rules restrict any use of the information to criminally investigate or prosecute any alcohol or drug abuse patient.[facility] HospitalIn the event this information is protected by the Federal Confidentiality of Alcohol and Drug Abuse Patient Records regulations: The Federal rules restrict any use of the information to criminally investigate or prosecute any alcohol or drug abuse patient.[facility] HospitalIn the event this information is protected by the Federal Confidentiality of Alcohol and Drug Abuse Patient Records regulations: The Federal rules restrict any use of the information to criminally investigate or prosecute any alcohol or drug abuse patient.[facility] Hospital[facility] the event this information is protected by the Federal Confidentiality of Alcohol and Drug Abuse Patient Records regulations: The Federal rules restrict any use of the information to criminally investigate or prosecute any alcohol or drug abuse patient.[facility] HospitalIn the event this information is protected by the Federal Confidentiality of Alcohol and Drug Abuse Patient Records regulations: The Federal rules restrict any use of the information to criminally investigate or prosecute any alcohol or drug abuse patient.[facility] HospitalIn the event this information is protected by the Federal Confidentiality of Alcohol and Drug Abuse Patient Records regulations: The Federal rules restrict any use of the information to criminally investigate or prosecute any alcohol or drug abuse patient.[facility] HospitalIn the event this information is protected by the Federal Confidentiality of Alcohol and Drug Abuse Patient Records regulations: The Federal rules restrict any use of the information to criminally investigate or prosecute any alcohol or drug abuse patient.[facility] HospitalIn the event this information is protected by the Federal Confidentiality of Alcohol and Drug Abuse Patient Records regulations: The Federal rules restrict any use of the information to criminally investigate or prosecute any alcohol or drug abuse patient.[facility] HospitalIn the event this information is protected by the Federal Confidentiality of Alcohol and Drug Abuse Patient Records regulations: The Federal rules restrict any use of the information to criminally investigate or prosecute any alcohol or drug abuse patient.[facility] HospitalIn the event this information is protected by the Federal Confidentiality of Alcohol and Drug Abuse Patient Records regulations: The Federal rules restrict any use of the information to criminally investigate or prosecute any alcohol or drug abuse patient.[facility] HospitalIn the event this information is protected by the Federal Confidentiality of Alcohol and Drug Abuse Patient Records regulations: The Federal rules restrict any use of the information to criminally investigate or prosecute any alcohol or drug abuse patient.[facility] HospitalIn the event this information is protected by the Federal Confidentiality of Alcohol and Drug Abuse Patient Records regulations: The Federal rules restrict any use of the information to criminally investigate or prosecute any alcohol or drug abuse patient.[facility] HospitalIn the event this information is protected by the Federal Confidentiality of Alcohol and Drug Abuse Patient Records regulations: The Federal rules restrict any use of the information to criminally investigate or prosecute any alcohol or drug abuse patient.[facility] HospitalIn the event this information is protected by the Federal Confidentiality of Alcohol and Drug Abuse Patient Records regulations: The Federal rules restrict any use of the information to criminally investigate or prosecute any alcohol or drug abuse patient.[facility] HospitalIn the event this information is protected by the Federal Confidentiality of Alcohol and Drug Abuse Patient Records regulations: The Federal rules restrict any use of the information to criminally investigate or prosecute any alcohol or drug abuse patient.[facility] HospitalIn the event this information is protected by the Federal Confidentiality of Alcohol and Drug Abuse Patient Records regulations: The Federal rules restrict any use of the information to criminally investigate or prosecute any alcohol or drug abuse patient.[facility] HospitalIn the event this information is protected by the Federal Confidentiality of Alcohol and Drug Abuse Patient Records regulations: The Federal rules restrict any use of the information to criminally investigate or prosecute any alcohol or drug abuse patient.[facility] HospitalIn the event this information is protected by the Federal Confidentiality of Alcohol and Drug Abuse Patient Records regulations: The Federal rules restrict any use of the information to criminally investigate or prosecute any alcohol or drug abuse patient.[facility] HospitalIn the event this information is protected by the Federal Confidentiality of Alcohol and Drug Abuse Patient Records regulations: The Federal rules restrict any use of the information to criminally investigate or prosecute any alcohol or drug abuse patient.[facility] Reason for Visit (unrecogniz ed section and content) Reason Comments Refraction Reason Comments Prostate Cancer Reason Comments Nm Pet Request Reason Comments Consult Prostate Cancer Specialty Diagnoses / Procedures Referred By Contac Referred To Contact Oncology Diagnoses Cancer of prostate w/med recur risk (T2b-c or [place] 7 or PSA 10-20) (HCC) Procedures CONSULT TO ONCOLOGY OFFICE/OUTPATIENT [facility] 60-74 MINUTES Ace Guzman MD [facility] [place] [address] Referral ID Status Reason Start Date Expiration Date Visits Requested Visits Authorized [id number] Pending Review PCP Requested Referral 06/07/2022 06/07/2023 1 1 Reason Comments Medication Update Xtandi Reason Comments Medication Authorization Xtandi Reason Comments Medication Update FYI patient deciding to move forward with Xtandi beyond 14 day free trial. Specialty Diagnoses / Procedures Referred By Contac Referred To Contact Diagnoses Prostate cancer (HCC) Procedures LEUPROLIDE ACETATE SUSPNSION Jose Francisco Broussard MD [facility] [place] [address] Christiano Treat [address] [place] [address] Referral ID Status Reason Start Date Expiration Date V isits Requested Visits Authorized [id number] Authorized 07/07/2022 07/07/2023 4 4 Reason Comments Medication Problem Reason Comments Yearly Exam Reason Comments Care Coordination Medication update Specialty Diagnoses / Procedures Referred By Contac t Referred To Contact MR IMAGING Diagnoses Cancer of prostate w/med recur risk (T2b-c or [place] 7 or PSA 10-20) (HCC) Procedures MRI PROSTATE WO/W IVCON MRI PELVIS W/O & W/CONTRAST MATERIAL Ace Guzman MD [address] [place] [address] [place] [address] Mr Imaging Referral ID Status Reason Start Date Expiration Date V isits Requested Visits Authorized [id number] Closed Auto-Generate d Referral 06/07/2022 07/07/2023 1 1 Reason Comments Prostate Cancer 2 month follow up Reason Comments Prostate Cancer Follow up Reason Comments Consult Specialty Diagnoses / Procedures Referred By Contac t Referred To Contact Urology Diagnoses Malignant neoplasm of prostate (HCC) Procedures CONSULT TO UROLOGY OFFICE/OUTPATIENT NEW HIGH MDM 60-74 MINUTES Ace Guzman MD [address] [place] [address] [place] [address] Referral ID Status Reason Start Date Expiration Date Visits Requested Visits Authorized [id number] Pending Review PCP Requested Referral 11/24/2022 11/24/2023 1 1 Reason Comments Care Coordination Radiation Appointmen t Referral ID Status Reason Start Date Expiration Date V isits Requested Visits Authorized [id number] Authorized 07/07/2022 07/07/2024 6 9 Reason Comments Prostate Cancer Specialty Diagnoses / Procedures Referred By Contac t Referred To Contact Diagnoses Prostate cancer (HCC) Procedures LEUPROLIDE ACETATE SUSPNSION Jose Francisco Broussard MD [address] [place] [address] [place] [address] Christiano Treat [address] [place] [address] Reason Comments Pseudophakia Reason Comments Lab Orders Reason Comments Refill Request Reason Comments Results Reason Comments Care Coordination Labs Specialty Diagnoses / Procedures Referred By Contac t Referred To Contact Diagnoses Prostate cancer (HCC) Osteopenia of multiple sites Procedures DENOSUMAB INJECTION Jose Francisco Broussard MD [address] [place] [address] [place] [address] Christiano Treat Ernesto [address] [place] [address] Referral ID Status Reason Start Date Expiration Date V isits Requested Visits Authorized [id number] New Request 09/22/2022 12/16/2024 4 4 Reason Comments Prostate Cancer Reason Comments Radiology NM Specialty Diagnoses / Procedures [facility] Ref[facility] To Contact MOLECULAR & FUNCTIONAL IMAGING Diagnoses Malignant neoplasm of prostate (HCC) Procedures NM PET/CT PROSTATE WHOLE BODY IMAGING PET IMAGING CT ATTENUATION SKULL BASE MID-THIGH James Robb MD [address] [place] [address] Molecular & Functional Imaging [address] [place] [address] Referral ID Status Reason Start Date Expiration Date V isits Requested Visits Authorized [id number] Closed Auto-Generate d Referral 01/04/2023 02/03/2024 1 1 Specialty Diagnoses / Procedures [facility] Referred To Contact MOLECULAR & FUNCTIONAL IMAGING Diagnoses History of prostate cancer Cancer of prostate w/med recur risk (T2b-c or [place] 7 or PSA 10-20) (HCC) Procedures NM PET/CT PROSTATE WHOLE BODY IMAGING PET IMAGING CT ATTENUATION SKULL BASE MID-THIGH F-18 PSMA Ace De Leon MD [address] [place] [address] [place] [address] Molecular & Functional Imaging [address] [place] [address] Referral ID Status Reason Start Date Expiration Date V isits Requested Visits Authorized [id number] Closed Auto-Generate d Referral 05/06/2022 08/03/2022 1 1 Reason Comments Prostate Cancer 8 week follow up Care Teams (unrecognized sec tion and content) Oncology Technician Relationship Specialty Start Date End Date Arline [place]rosco MD PCP - General Family Practice 06/02/11 Dawna Patrick Urology 02/10/14 Oncology Technician Relationship Specialty Start Date End Date Arline Orosco MD PCP - General Family Medicine 06/02/11 Dawna Patrick Urology 02/10/14 Oncology Technician Relationship Specialty Start Date End Date Arline Orosco MD PCP - General Family Medicine 06/02/11 Dawna Patrick Urology 02/10/14 Oncology Technician Relationship Specialty Start Date End Date Arline Orosco MD PCP - General Family Medicine 06/02/11 Dawna Patrick Urology 02/10/14 Oncology Technician Relationship Specialty Start Date End Date Arline Orosco MD PCP - General Family Medicine 06/02/11 Dawna Patrick Urology 02/10/14 Oncology Technician Relationship Specialty Start Date End Date Arline Orosco MD PCP - General Family Medicine 06/02/11 Dawna Patrick Urology 02/10/14 Oncology Technician Relationship Specialty Start Date End Date Arline Orosco MD PCP - General Family Medicine 06/02/11 Dawna Patrick Urology 02/10/14 Oncology Technician Relationship Specialty Start Date End Date Arline Orosco MD PCP - General Family Medicine 06/02/11 Dawna Patrick Urology 02/10/14 Jose Francisco Broussard MD [address] [facility] [place] [address] Physician Hematology/Oncology 06/27/22 Christiano Cardneas, HAND FRETTED INSTRUMENT MAKER.SPORTS EDITOR [address] [facility] [place] [address] Nurse Practitioner Hematology/Oncology 06/27/22 Umer Dale, RN [address] [facility] [place] [address] Specialty Client Application Support Specialist Hematology/Oncology 06/27/22 Oncology Technician Relationship Specialty Start Date End Date Arline [place]rosco MD PCP - General Family Medicine 06/02/11 Dawna Patrick Urology 02/10/14 Jose Francisco Broussard MD [address] [facility] [place] [address] Physician Hematology/Oncology 06/27/22 Christiano Cardenas, HAND FRETTED INSTRUMENT MAKER.SPORTS EDITOR [address] [facility] [place] [address] Nurse Practitioner Hematology/Oncology 06/27/22 Umer Dale, RN [address] [place] [address] Specialty Client Application Support Specialist Hematology/Oncology 06/27/22 Oncology Technician Relationship Specialty Start Date End Date Arline Orosco MD PCP - General Family Medicine 06/02/11 Dawna Patrick Urology 02/10/14 Jose Francisco Broussard MD [address] [place] [address] Physician Hematology/Oncology 06/27/22 Christiano Cardenas, HAND FRETTED INSTRUMENT MAKER.SPORTS EDITOR [address] [place] [address] Nurse Practitioner Hematology/Oncology 06/27/22 Umer Dale, HITESH [address] [facility] [address] [place], [place] [id number] Specialty Client Application Support Specialist Hematology/Oncology 06/27/22 Oncology Technician Relationship Specialty Start Date End Date Arline [place]rosco MD PCP - General Family Medicine 06/02/11 Dawna Patrick Urology 02/10/14 Jose Francisco Broussard MD [address] [place] [address] Physician Hematology/Oncology 06/27/22 Christiano Cardenas, HAND FRETTED INSTRUMENT MAKER.SPORTS EDITOR [address] [place] [address] Nurse Practitioner Hematology/Oncology 06/27/22 Umre Dale, RN [address] [place] [address] Specialty Client Application Support Specialist Hematology/Oncology 06/27/22 Oncology Technician Relationship Specialty Start Date End Date Arline Orosco MD PCP - General Family Medicine 06/02/11 Dawna Patrick Urology 02/10/14 Jose Francisco Broussard MD [address] [place] [address] Physician Hematology/Oncology 06/27/22 Christiano Cardenas, HAND FRETTED INSTRUMENT MAKER.SPORTS EDITOR [address] [place] [address] Nurse Practitioner Hematology/Oncology 06/27/22 Umer Dale, RN [address] [place] [address] Specialty Client Application Support Specialist Hematology/Oncology 06/27/22 Team Status: Active Member Role Status Carola Orosco MD Primary Care Provider Active Team Status: Inactive Member Role Status Carola [place]rosco MD Primary Care Provider Active Clarence Gregory MD Attending Provider Active Oncology Technician Relationship Specialty Start Date End Date Arline [place]rosco MD PCP - General Family Medicine 06/02/11 Dawna Patrick Urology 02/10/14 Jose Francisco Broussard MD [address] [place] [address] Physician Hematology/Oncology 06/27/22 Christiano Cardenas, HAND FRETTED INSTRUMENT MAKER.SPORTS EDITOR [address] [place] [address] Nurse Practitioner Hematology/Oncology 06/27/22 Umer Dale, RN [address] [place] [address] Specialty Client Application Support Specialist Hematology/Oncology 06/27/22 Oncology Technician Relationship Specialty Start Date End Date Arline [place]rosco MD PCP - General Family Medicine 06/02/11 Dawna Patrick Urology 02/10/14 Jose Francisco Broussard MD [address] [place] [address] Physician Hematology/Oncology 06/27/22 Christiano Cardenas, [place].SPORTS EDITOR [address] [place] [address] Nurse Practitioner Hematology/Oncology 06/27/22 Umer Dale RN [address] [facility] [place] [address] Specialty Client Application Support Specialist Hematology/Oncology 06/27/22 Oncology Technician Relationship Specialty Start Date End Date Arline Orosco MD PCP - General Family Medicine 06/02/11 Dawna Patrick Urology 02/10/14 Jose Francisco Broussard MD [address] [place] [address] Physician Hematology/Oncology 06/27/22 Christiano Cardenas, [place].SPORTS EDITOR [address] [place] [address] Nurse Practitioner Hematology/Oncology 06/27/22 Umer Dale RN [address] [facility] [place] [address] Specialty Client Application Support Specialist Hematology/Oncology 06/27/22 Oncology Technician Relationship Specialty Start Date End Date Arline [place]rosco MD PCP - General Family Medicine 06/02/11 Dawna Patrick Urology 02/10/14 Jose Francisco Broussard MD [address] [facility] [place] [address] Physician Hematology/Oncology 06/27/22 Christiano Cardenas, [place].SPORTS EDITOR [address] [facility] [place] [address] Nurse Practitioner Hematology/Oncology 06/27/22 Umer Dale, RN [address] [facility] [place] [address] Specialty Client Application Support Specialist Hematology/Oncology 06/27/22 Oncology Technician Relationship Specialty Start Date End Date Arline Orosco MD PCP - General Family Medicine 06/02/11 Dawna Patrick Urology 02/10/14 Jose Francisco Broussard MD [address] [facility] [place] [address] Physician Hematology/Oncology 06/27/22 Christiano Cardenas, [place].SPORTS EDITOR [address] [facility] [place] [address] Nurse Practitioner Hematology/Oncology 06/27/22 Umer Dale RN [address] [facility] [place] [address] Specialty Client Application Support Specialist Hematology/Oncology 06/27/22 Oncology Technician Relationship Specialty Start Date End Date Arline Orosco MD PCP - General Family Medicine 06/02/11 Dawna Patrick Urology 02/10/14 Jose Francisco Broussard MD [address] [facility] [place] [address] Physician Hematology/Oncology 06/27/22 Christiano Cardenas, [place].SPORTS EDITOR [address] [facility] [place] [address] Nurse Practitioner Hematology/Oncology 06/27/22 Umer Dale RN [address] [facility] [place] [address] Specialty Client Application Support Specialist Hematology/Oncology 06/27/22 Oncology Technician Relationship Specialty Start Date End Date Arline Orosco MD PCP - General Family Medicine 06/02/11 Dawna Patrick Urology 02/10/14 Jose Francisco Broussard MD [address] [facility] [place] [address] Physician Hematology/Oncology 06/27/22 Christiano Cardenas APRN.SPORTS EDITOR [address] [facility] [place] [address] Nurse Practitioner Hematology/Oncology 06/27/22 Umer Dale, HITESH [address] [place] [address] Specialty Client Application Support Specialist Hematology/Oncology 06/27/22 Oncology Technician Relationship Specialty Start Date End Date Arline Orosco MD PCP - General Family Medicine 06/02/11 Dawna Patrick Urology 02/10/14 Jose Francisco Broussard MD [address] [place] [address] [place] [address] Physician Hematology/Oncology 06/27/22 Christiano Cardenas, [place].SPORTS EDITOR [address] [place] [address] Nurse Practitioner Hematology/Oncology 06/27/22 Umer Dale, HITESH [address] [place] [address] Specialty Client Application Support Specialist Hematology/Oncology 06/27/22 Oncology Technician Relationship Specialty Start Date End Date Arline Orosco MD PCP - General Family Medicine 06/02/11 Dawna Patrick Urology 02/10/14 Jose Francisco Broussard MD [address] [place] [address] [place] [address] Physician Hematology/Oncology 06/27/22 Christiano Cardenas, [place].SPORTS EDITOR [address] [place] [address] Nurse Practitioner Hematology/Oncology 06/27/22 Umer Dale, RN [address] [place] [address] Specialty Client Application Support Specialist Hematology/Oncology 06/27/22 Oncology Technician Relationship Specialty Start Date End Date Arline Orosco MD PCP - General Family Medicine 06/02/11 Dawna Patrick Urology 02/10/14 Jose Francisco Broussard MD [address] [place] [address] Physician Hematology/Oncology 06/27/22 Christiano Cardenas APRN.SPORTS EDITOR [address] [place] [address] Nurse Practitioner Hematology/Oncology 06/27/22 Umer Dale, RN [address] [place] [address] Specialty Client Application Support Specialist Hematology/Oncology 06/27/22 Oncology Technician Relationship Specialty Start Date End Date Arline Orosco MD [address] [place] [address] PCP - General 06/05/13 Oncology Technician Relationship Specialty Start Date End Date Arline Orosco MD PCP - General Family Medicine 06/02/11 Dawna Patrick Urology 02/10/14 Jose Francisco Broussard MD [address] [place] [address] Physician Hematology/Oncology 06/27/22 Christiano Cardenas APRN.SPORTS EDITOR [address] [place] [address] Nurse Practitioner Hematology/Oncology 06/27/22 Umer Dale, HITESH [address] [place] [address] Specialty Client Application Support Specialist Hematology/Oncology 06/27/22 Oncology Technician Relationship Specialty Start Date End Date Arline Orosco MD PCP - General Family Medicine 06/02/11 Dawna Patrick Urology 02/10/14 Jose Francisco Broussard MD [address] [place] [address] Physician Hematology/Oncology 06/27/22 Christiano Cardenas, HAND FRETTED INSTRUMENT MAKER.SPORTS EDITOR [address] [place] [address] Nurse Practitioner Hematology/Oncology 06/27/22 Umer Dale, HITESH [address] [place] [address] Specialty Client Application Support Specialist Hematology/Oncology 06/27/22 Oncology Technician Relationship Specialty Start Date End Date Arline Orosco MD PCP - General Family Medicine 06/02/11 Dawna Patrick Urology 02/10/14 Jose Francisco Broussard MD [address] [place] [address] [place] [address] Physician Hematology/Oncology 06/27/22 Christiano Cardenas APRN.SPORTS EDITOR [address] [place] [address] Nurse Practitioner Hematology/Oncology 06/27/22 Umer Dale, HITESH [address] [place] [address] Specialty Client Application Support Specialist Hematology/Oncology 06/27/22 Oncology Technician Relationship Specialty Start Date End Date Arline Orosco MD PCP - General Family Medicine 06/02/11 Dawna Patrick Urology 02/10/14 Jose Francisco Broussard MD [address] [place] [address] [place] [address] Physician Hematology/Oncology 06/27/22 Christiano Cardenas, HAND FRETTED INSTRUMENT MAKER.SPORTS EDITOR [address] [place] [address] [place] [address] Nurse Practitioner Hematology/Oncology 06/27/22 Umer Dale, HITESH [address] [place] [address] Specialty Client Application Support Specialist Hematology/Oncology 06/27/22 Oncology Technician Relationship Specialty Start Date End Date Arline Orosco MD PCP - General Family Medicine 06/02/11 Dawna Patrick Urology 02/10/14 Jose Francisco Broussard MD [address] [facility] [place] [address] Physician Hematology/Oncology 06/27/22 Christiano Cardenas APRN.SPORTS EDITOR [address] [facility] [place] [address] Nurse Practitioner Hematology/Oncology 06/27/22 Umer Dale, RN [address] [facility] [place] [address] Specialty Client Application Support Specialist Hematology/Oncology 06/27/22 Team Status: Inactive Member Role Status Dates Arline [place]rosco MD Primary Care Provider Active Start: November 14, 2023 End: November 14, 2023 Clarence Gregory MD Attending Provider Active S tart: November 14, 2023 End: November 14, 2023 Oncology Technician Relationship Specialty Start Date End Date Arline [place]rosco MD PCP - General Family Medicine 06/02/11 Dawna Patrick Urology 02/10/14 Jose Francisco Broussard MD [address] [place] [address] Physician Hematology/Oncology 06/27/22 Christiano Cardenas, [place].SPORTS EDITOR [address] [facility] [place] [address] Nurse Practitioner Hematology/Oncology 06/27/22 Umer Dale, HITESH [address] [place] [address] Specialty Client Application Support Specialist Hematology/Oncology 06/27/22 Oncology Technician Relationship Specialty Start Date End Date Arline [place]rosco MD PCP - General Family Medicine 06/02/11 Dawna Patrick Urology 02/10/14 Jose Francisco Broussard MD [address] [place] [address] Physician Hematology/Oncology 06/27/22 Christiano Cardenas APRN.[facility] [address] [facility] [place] [address] Nurse Practitioner Hematology/Oncology 06/27/22 Umer Dale, HITESH [address] [place] [address] Specialty Client Application Support Specialist Hematology/Oncology 06/27/22 Oncology Technician Relationship Specialty Start Date End Date Arline Orosco MD PCP - General Family Medicine 06/02/11 Dawna Patrick Urology 02/10/14 Oncology Technician Relationship Specialty Start Date End Date Arline Orosco MD PCP - General Family Medicine 06/02/11 Dawna Patrick Urology 02/10/14 Jose Francisco Broussard MD [address] [facility] [place] [address] Physician Hematology/Oncology 06/27/22 Christiano Cardenas, HAND FRETTED INSTRUMENT MAKER.SPORTS EDITOR [address] [place] [address] Nurse Practitioner Hematology/Oncology 06/27/22 Umer Dale, HITESH [address] [facility] [place] [address] Specialty Client Application Support Specialist Hematology/Oncology 06/27/22 Oncology Technician Relationship Specialty Start Date End Date Arline Orosco MD PCP - General Family Medicine 06/02/11 Dawna Patrick Urology 02/10/14 Jose Francisco Broussard MD [address] [place] [address] Physician Hematology/Oncology 06/27/22 Christiano Cardenas, HAND FRETTED INSTRUMENT MAKER.SPORTS EDITOR [address] [place] [address] Nurse Practitioner Hematology/Oncology 06/27/22 Umer Dale, HITESH [address] [facility] [place] [address] Specialty Client Application Support Specialist Hematology/Oncology 06/27/22 Oncology Technician Relationship Specialty Start Date End Date Arline Orosco MD PCP - General Family Medicine 06/02/11 Dawna Patrick Urology 02/10/14 Jose Francisco Broussard MD [address] [place] [address] Physician Hematology/Oncology 06/27/22 Christiano Cardenas, HAND FRETTED INSTRUMENT MAKER.SPORTS EDITOR [address] [place] [address] Nurse Practitioner Hematology/Oncology 06/27/22 Umer Dale, HITESH [address] [place] [address] Specialty Client Application Support Specialist Hematology/Oncology 06/27/22 Oncology Technician Relationship Specialty Start Date End Date Arline Orosco MD PCP - General Family Medicine 06/02/11 Dawna Patrick Urology 02/10/14 Jose Francisco Broussard MD [address] [place] [address] Physician Hematology/Oncology 06/27/22 Christiano Cardenas, HAND FRETTED INSTRUMENT MAKER.SPORTS EDITOR [address] [place] [address] Nurse Practitioner Hematology/Oncology 06/27/22 Umer Dale, HITESH [address] [place] [address] Specialty Client Application Support Specialist Hematology/Oncology 06/27/22 Oncology Technician Relationship Specialty Start Date End Date Arline Orosco MD [address] [place] [id number] PCP - General Family Medicine 04/26/24 Oncology Technician Relationship Specialty Start Date End Date Arline Orosco MD [address] [place] [address] PCP - General Family Medicine [...] BE BASED ON THE PRIMARY CLINICAL RECORDS. [employer] provides no warranty or guarantee of the accuracy or completeness of information in this document.
[2024-05-15] MEDS: 0.9 % SODIUM CHLORIDE 1,000 ML 100 ML IV (20:44)
[2024-05-15] MEDS: ATORVASTATIN CALCIUM 10 MG TABLET PO (22:14)
[2024-05-15] MEDS: TRAZODONE HCL 50 MG TABLET 75 MG PO (22:14)
[2024-05-15] MEDS: TAMSULOSIN HCL 0.4 MG CAPSULE 0.8 MG PO (22:14)
[2024-05-15] MEDS: METOPROLOL SUCCINATE 25 MG TAB.ER.24H 50 MG PO (22:14)
[2024-05-16] VITALS (23 sets, daily range): BP systolic 132–173; BP diastolic 68–89; PULSE 61–89; TEMP 36.1–36.8; O2SAT 87–94
[2024-05-16] MEDS: 0.9 % SODIUM CHLORIDE 1,000 ML 100 ML IV ×2 (05:58→15:29)
[2024-05-16 06:29] LABS: Hemoglobin 13.8 g/dL (14.0-18.0); Mean Corpuscular HGB Conc 34.5 g/dL (29.9-35.2); Mean Corpuscular Hemoglobin 31.5 pg (25.9-34.0); Mean Corpuscular Volume 91.3 fL (80.0-94.0); Mean Platelet Volume 9.9 fL (9.5-13.5); Platelet Count 164 10^3/uL (150-450); Red Blood Count 4.38 10^6/uL (4.70-6.10); Red Cell Distribution Width 12.2 % (11.0-15.0); White Blood Count 9.1 10^3/uL (4.0-11.0)
[2024-05-16 06:42] LABS: Alanine Aminotransferase 17 U/L (16-63); Albumin Globulin Ratio 0.9; Albumin Level 3.2 g/dL (3.4-5.0); Alkaline Phosphatase 42 U/L (46-116); Anion Gap 11.2; Aspartate Amino Transferase 25 U/L (15-37); BUN Creatinine Ratio 32.4; Bilirubin Total 0.5 mg/dL (0.2-1.0); Calcium 8.6 mg/dL (8.5-10.1); Carbon Dioxide 27.5 mmol/L (21.0-32.0); Chloride 106 mmol/L (98-107); Estimated GFR (African America >60 (>=60 mL/min/1.73m^2); Estimated GFR (Non-African Ame >60 (>=60 mL/min/1.73m^2); Globulin 3.6 g/dL; Glucose 136 mg/dL (74-106); Magnesium 2.1 mg/dL (1.8-2.4); Potassium 3.7 mmol/L (3.5-5.1); Sodium 141 mmol/L (136-145); Total Protein 6.8 g/dL (6.4-8.2)
[2024-05-16] MEDS: METHYLPREDNISOLONE SOD SUCC PF 40 MG/ML VIAL IVP (07:16)
[2024-05-16 07:19] LABS: Band Neutrophils Absolute 0.2 10^3/uL (0.0-0.3); Segmented Neut Absolute Manual 7.64 10^3/uL (1.4-6.5)
[2024-05-16 07:20] LABS: Lymphocytes Absolute Manual 0.91 10^3/uL (1.20-3.80); Monocytes Absolute Manual 0.36 10^3/uL (0.30-0.80)
[2024-05-16] MEDS: LOSARTAN POTASSIUM 50 MG TABLET PO (09:09)
--- NOTE | 2024-05-16 09:43 | P.HP_ITS ---
HPI H&P: HPI History of Present Illness Chief complaint: FLU LIKE SYMPTOMS HYPOXIA DEHYDRATION Narrative: InfluenzaPatient presented emergency room with increasing cough and shortness of breath. His flu test was negative but his tested positive recently for influenza A. Patient has a history of COPD. Admitted for acute exacerbation of COPD likely secondary to influenza A despite testing When I saw patient on the medical surgical floor, resting comfortably in bed, he does have some mild conversational dyspnea based on his baseline, I am used to seeing him in the office. 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 (ICD- 10) HTN (hypertension) ?I10 - Essential (primary) hypertension (ICD-10) COPD (chronic obstructive pulmonary disease) ?J44.9 - Chronic obstructive pulmonary disease, unspecified (ICD-10) Bladder cancer ?C67.9 - Malignant neoplasm of bladder, unspecified (ICD-10) Prostate CA ?C61 - Malignant neoplasm of prostate (ICD-10) Surgical History (Updated 05/15/24 @ 23:10 by Keila Gale, HITESH) Hx of appendectomy ?Z90.49 - Acquired absence of other specified parts of digestive tract (ICD- 10) Family History (Updated 05/15/24 @ 20:54 by Keila Gale, HITESH) Father Family history of CHF (congestive heart failure) Family history of diabetes mellitus Family history of COPD (chronic obstructive pulmonary disease) Mother Family history of diabetes mellitus Family history of COPD (chronic obstructive pulmonary disease) Family history of cancer Social History (Updated 05/15/24 @ 20:55 by Keila Gale, HITEHS) Within the past year, how often did you have a drink containing alcohol: never Score interpretation: A score less than 4 is consistent with normal alcohol consumption. Smoking status: Current every day smoker Non-prescribed substance use: denies use Highest level of school completed/degree received: Bachelor's degree Are you now , , , , never or living with a partner: Little interest or pleasure in doing things: not at all Feeling down, depressed, or hopeless: not at all Feel stressed/tense/nervous/anxious/difficulty sleeping: not at all Do you think of yourself as: straight/heterosexual Gender Identity: male Meds Home Medications and Allergies Home Medications ?Medication ?Instructions ?Recorded ?Confirmed ?Type albuterol sulfate 90 mcg/actuation 2 puff inhalation Q6H 05/15/24 05/15/24 History aerosol inhaler bicalutamide 50 mg tablet 50 mg PO DAILY 05/15/24 05/15/24 History clonidine HCl 0.1 mg tablet 0.1 mg PO BID PRN hypertensive 05/15/24 05/16/24 History emergency doxazosin 2 mg tablet 6 mg PO DAILY PRN hypertension 05/15/24 05/15/24 History fluticasone furoate 100 1 inh inhalation Q24H 05/15/24 05/15/24 History mcg-vilanterol 25 mcg/dose inhalation powder (Breo Ellipta) hydrochlorothiazide 25 mg tablet 25 mg PO DAILY 05/15/24 05/15/24 History irbesartan 150 mg tablet 150 mg PO DAILY 05/15/24 05/15/24 History metoprolol succinate 25 mg 50 mg PO DAILY 05/15/24 05/15/24 History tablet,extended release 24 hr mupirocin 2 % topical ointment 1 applic topical BID 05/15/24 05/15/24 History simvastatin 10 mg tablet 10 mg PO DAILY 05/15/24 05/15/24 History tamsulosin 0.4 mg capsule 0.8 mg PO Q24H 05/15/24 05/15/24 History tizanidine 4 mg tablet 4 mg PO Q8H PRN muscle spasticity 05/15/24 05/16/24 History trazodone 50 mg tablet 75 mg PO DAILY 05/15/24 05/15/24 History irbesartan 75 mg tablet 75 mg PO .QD 05/16/24 05/16/24 History Allergies Allergy/AdvReac Type Severity Reaction Status Date / Time No Known Drug Allergies Allergy Verified 05/15/24 14:44 Exam Constitutional Vital Signs, click to edit/add: Last Vital Signs Temp 97.9 F 05/16/24 07:28 Pulse 65 05/16/24 08:00 Resp 20 05/16/24 07:28 BP 136/68 05/16/24 07:28 Pulse Ox 90 L 05/16/24 07:30 O2 Del Method Nasal Cannula 05/16/24 07:30 O2 Flow Rate 2 05/16/24 07:30 Documenting provider has reviewed patient's vital signs: yes Common normals: apparent distress (Mild respiratory distress) Respiratory Common normals: abnormal respiratory effort (Mild respiratory distress) Auscultation: rhonchi, wheezes and diminished lung sounds Cardio Common normals: regular rate and regular rhythm Extremity Common normals: normal to inspection and full ROM Results Labs Labs: Short CBC 05/15/24 05/16/24 Range/Units 15:26 05:56 WBC 9.8 9.1 (4.0-11.0) 10^3/uL Hgb 14.9 13.8 L (14.0-18.0) g/dL Hct 43.5 40.0 L (42.0-54.0) % Plt Count 178 164 (150-450) 10^3/uL BMP 05/15/24 05/16/24 15:26 05:56 Sodium 139 141 Potassium 3.6 3.7 Chloride 99 106 Carbon Dioxide 29.3 27.5 BUN 39.0 H 36.0 H Creatinine 1.86 H 1.11 Glucose 101 136 H Calcium 9.5 8.6 Liver Function 05/15/24 05/16/24 Range/Units 15:26 05:56 Total Bilirubin 0.9 0.5 (0.2-1.0) mg/dL AST 28 25 (15-37) U/L ALT 23 17 (16-63) U/L Alkaline Phosphatase 51 42 L (46-116) U/L Albumin 4.2 3.2 L (3.4-5.0) g/dL ABG ABG results: 05/15/24 15:26 VBG pH 7.359 VBG pCO2 45.8 Assessment and Plan Assessment and Plan (1) Hypoxia: (2) Flu-like symptoms: (3) Acute infective exacerbation of chronic obstructive airway disease: Plan Admission findings: Acute hypoxia with O2 sat of 91% on 1 L, leukocytosis with left shift consistent with bacterial process, acute elevation in BUN and creatinine consistent with acute mild dehydration, chest x-ray consistent with left lower lobe pneumonia Acute hypoxia due to left lower lobe pneumonia possibly complicated by acute influenza A as he does have exposure, antibiotics, steroids, aerosol treatments, with current hypoxia requiring at least 1 to 2 L of supplemental oxygen, unable to discharge today Hypertension-continue with home medications BPH-continue with home medications Hypercholesterolemia continue with home medications Low back pain continue with home medications Insomnia-continue with home medications Admission status: Patient initially placed in observational status but became hypoxic overnight, medically necessary treatment will for the left lower lobe pneumonia will span 2 midnights. Inpatient status.
--- NOTE | 2024-05-16 10:00 | CM.NOTE ---
Rounds made with Dr. Read, pt continues to require oxygen and have c/o SOB. Pt does not use oxygen at home, will attempt to wean oxygen today. No discharge.
--- NOTE | 2024-05-16 10:20 | CM.NOTE ---
Important Message From Medicare discussed with pt, pt verbalizes understanding and signs paper. Original given to pt and copy placed on pt's chart.
[2024-05-16] MEDS: IPRATROPIUM/ALBUTEROL SULFATE 3 ML AMPUL.NEB IH ×3 (11:23→22:55)
[2024-05-16] MEDS: OSELTAMIVIR PHOSPHATE 75 MG CAPSULE PO ×2 (12:22→22:21)
[2024-05-16] MEDS: METHYLPREDNISOLONE SOD SUCC PF 125 MG/2 ML VIAL 60 MG IVP ×2 (14:27→22:19)
--- NOTE | 2024-05-16 14:30 | SWNOTE1 ---
Pt is on 2 liters of oxygen and does not wear home oxygen. Pt worked with therapy and PT did recommend home health. SW to speak with pt to see if he is open to this.
--- NOTE | 2024-05-16 15:00 | SWNOTE1 ---
SW met with pt to discuss dc needs. SW advised pt that physical therapy is recommending Home Health for a short time once returns home. Pt voiced he does still walk and exercise and does not use any DME and he drives and is independent. At this time pt voiced he does not feel he needs home health and is refusing. Pt does not wear home oxygen and is on oxygen at this time at hospital. At this time pt voices no discharge needs. SW to follow as needed.
[2024-05-16] MEDS: HYDRALAZINE HCL 20 MG/ML VIAL 10 MG IVP ×2 (15:29→22:32)
[2024-05-16] MEDS: AZITHROMYCIN 500 MG in 0.9 % SODIUM CHLORIDE 250 ML 250 MG IV (22:20)
[2024-05-16] MEDS: CEFTRIAXONE 1,000 MG in 0.9 % SODIUM CHLORIDE 50 ML 100 MG IV (22:20)
[2024-05-16] MEDS: TAMSULOSIN HCL 0.4 MG CAPSULE 0.8 MG PO (22:20)
[2024-05-16] MEDS: METOPROLOL SUCCINATE 25 MG TAB.ER.24H 50 MG PO (22:20)
[2024-05-16] MEDS: ATORVASTATIN CALCIUM 10 MG TABLET PO (22:20)
[2024-05-16] MEDS: TRAZODONE HCL 50 MG TABLET 75 MG PO (22:21)
[2024-05-17] VITALS (18 sets, daily range): BP systolic 138–191; BP diastolic 62–104; PULSE 58–92; TEMP 36.1–36.7; O2SAT 90–96
[2024-05-17] MEDS: 0.9 % SODIUM CHLORIDE 1,000 ML 100 ML IV (02:39)
[2024-05-17] MEDS: METHYLPREDNISOLONE SOD SUCC PF 125 MG/2 ML VIAL 60 MG IVP ×4 (03:06→21:01)
[2024-05-17] MEDS: IPRATROPIUM/ALBUTEROL SULFATE 3 ML AMPUL.NEB IH ×4 (05:22→23:21)
[2024-05-17 07:19] LABS: Basophils Percent Auto 0.1 % (0.2-2.0); Hematocrit 41.8 % (42.0-54.0); Hemoglobin 14.1 g/dL (14.0-18.0); Immature Granulocytes Abs Auto 0.07 10^3/uL (0.00-0.03); Immature Granulocytes Pct Auto 0.6 % (0.0-0.5); Lymphocytes Absolute Auto 0.5 10^3/uL (1.2-3.8); Lymphocytes Percent Auto 4.3 % (20.5-60.0); Mean Corpuscular HGB Conc 33.7 g/dL (29.9-35.2); Mean Corpuscular Hemoglobin 31.3 pg (25.9-34.0); Mean Corpuscular Volume 92.9 fL (80.0-94.0); Mean Platelet Volume 9.9 fL (9.5-13.5); Monocytes Absolute Auto 0.5 10^3/uL (0.3-0.8); Monocytes Percent Auto 4.1 % (1.7-12.0); Neutrophils Absolute Auto 10.6 10^3/uL (1.4-6.5); Neutrophils Percent Auto 90.9 % (43.0-75.0); Platelet Count 182 10^3/uL (150-450); Red Cell Distribution Width 12.3 % (11.0-15.0); White Blood Count 11.7 10^3/uL (4.0-11.0)
[2024-05-17 07:31] LABS: Anion Gap 12.5; BUN Creatinine Ratio 25.5; Calcium 8.8 mg/dL (8.5-10.1); Carbon Dioxide 27.2 mmol/L (21.0-32.0); Chloride 109 mmol/L (98-107); Estimated GFR (African America >60 (>=60 mL/min/1.73m^2); Estimated GFR (Non-African Ame >60 (>=60 mL/min/1.73m^2); Glucose 135 mg/dL (74-106); Potassium 3.7 mmol/L (3.5-5.1); Sodium 145 mmol/L (136-145)
[2024-05-17 07:55] LABS: BOX Test Reference Lab FIRELANDS; BOX Test Sent Out STOOL CULTURE
[2024-05-17 07:57] LABS: BOX Test Reference Lab FIRELANDS; BOX Test Sent Out OVA & PARASITE
[2024-05-17] MEDS: LOSARTAN POTASSIUM 50 MG TABLET PO (09:00)
[2024-05-17] MEDS: OSELTAMIVIR PHOSPHATE 75 MG CAPSULE PO ×2 (09:00→21:02)
--- NOTE | 2024-05-17 09:51 | CM.NOTE ---
Rounds made with Dr. Read. Dr. Read discussed lab results and treatment plan. Plan is to wean O2 and if able, possible discharge later today on po antibiotics.
[2024-05-17] MEDS: HYDRALAZINE HCL 20 MG/ML VIAL 10 MG IVP ×2 (10:24→19:31)
--- NOTE | 2024-05-17 10:43 | P.PN_ITS ---
Progress Note: Subjective Subjective Interval history: Patient feels somewhat better with his cough is still requiring supplemental oxygen, O2 sat 90 to 91% on 2 L Exam Constitutional Vital Signs, click to edit/add: Last Vital Signs Temp 97.5 F L 05/17/24 09:00 Pulse 62 05/17/24 09:00 Resp 18 05/17/24 09:00 BP 191/87 H 05/17/24 10:24 Pulse Ox 93 L 05/17/24 09:00 O2 Del Method Nasal Cannula 05/17/24 09:00 O2 Flow Rate 2 05/17/24 09:00 Documenting provider has reviewed patient's vital signs: yes Common normals: apparent distress (Mild respiratory distress) Respiratory Common normals: abnormal respiratory effort (Mild respiratory distress -0 unchanged) Auscultation: rhonchi (Persisting), wheezes (Persisting) and diminished lung sounds Cardio Common normals: regular rate and regular rhythm Extremity Common normals: normal to inspection and full ROM Progress Note: Objective Labs Labs: Short CBC 05/17/24 Range/Units 06:52 WBC 11.7 H (4.0-11.0) 10^3/uL Hgb 14.1 (14.0-18.0) g/dL Hct 41.8 L (42.0-54.0) % Plt Count 182 (150-450) 10^3/uL BMP 05/17/24 06:52 Sodium 145 Potassium 3.7 Chloride 109 H Carbon Dioxide 27.2 BUN 26.0 H Creatinine 1.02 Glucose 135 H Calcium 8.8 Progress Note: A&P Assessment and Plan (1) Hypoxia: (2) Flu-like symptoms: (3) Acute infective exacerbation of chronic obstructive airway disease: Plan Admission findings: Acute hypoxia with O2 sat of 91% on 1 L, leukocytosis with left shift consistent with bacterial process, acute elevation in BUN and creatinine consistent with acute mild dehydration, chest x-ray consistent with left lower lobe pneumonia Acute hypoxia due to left lower lobe pneumonia possibly complicated by acute influenza A as he does have exposure, antibiotics, steroids, aerosol treatments, with current hypoxia requiring at least 1 to 2 L of supplemental oxygen,-try to wean off of supplemental oxygen was unable to do so, maintain current treatment plan, patient does feel somewhat improved but still significant hypoxia does still have a left shift on his white blood cell count consistent with acute bacterial process Acute diarrhea-he has stool studies pending. It was restarted as an outpatient Hypertension-continue with home medications BPH-continue with home medications Hypercholesterolemia continue with home medications Low back pain continue with home medications Insomnia-continue with home medications Admission status: Patient initially placed in observational status but became hypoxic overnight, medically necessary treatment will for the left lower lobe pneumonia will span 2 midnights. Inpatient status. ?
--- NOTE | 2024-05-17 11:31 | PT.DAILY ---
Physical Therapy Daily Note PT Daily Note/Assess Start: 05/17/24 11:27 Freq: Status: Active Protocol: Document 05/17/24 11:29 MARTHA (Rec: 05/17/24 11:31 MARTHA [id number]) Visit Not Completed Visit Not Completed Visit Not Completed Pt refusing,Other Due to: Other Reason Visit 2x attempts to see pt Not Completed 1) 0931 pt reports BP 186/104 and is told to rest until medicated and rechecked around [id number] 2) 1058 pt declines activity at this time. Told nursing he's not feeling well today and BP is still high Physical Therapy Daily Note/Assessment Time In/Time Out Time In 11:28 Time Out 11:29 Pain In Pain N/A Pain Out Pain N/A GG. Functional Abilities and Goals-Complete for Swing Bed Patients Only [id number]. Self-Care [id number]. Mobility
[2024-05-17] MEDS: LEVOFLOXACIN IN DEXTROSE 5 % 750 MG/150 ML PREMIX 100 MG IV (12:29)
--- NOTE | 2024-05-17 14:03 | PT.DAILY ---
Physical Therapy Daily Note PT Daily Note/Assess Start: 05/17/24 11:27 Freq: Status: Active Protocol: Document 05/17/24 14:00 [id number] (Rec: 05/17/24 14:02 [id number]) Visit Not Completed Visit Not Completed Visit Not Completed Pt refusing Due to: Physical Therapy Daily Note/Assessment Time In/Time Out Time In 01:55 Time Out 01:57 Pain In Pain N/A Pain Out Pain N/A Subjective Subjective Patient states he has been having issues with his BP and just feels wiped out. Would like to hold PT today. Summary Daily Note Summary Spoke with Ginny, patient's nurse prior to attempting treatment. She states his BP is better this afternoon, but he really wiped out and tired. Will attempt again on 05/18/2024. GG. Functional Abilities and Goals-Complete for Swing Bed Patients Only [id number]. Self-Care [id number]. Mobility
[2024-05-17] MEDS: METOPROLOL SUCCINATE 25 MG TAB.ER.24H 50 MG PO (21:02)
[2024-05-17] MEDS: TAMSULOSIN HCL 0.4 MG CAPSULE 0.8 MG PO (21:02)
[2024-05-17] MEDS: ENOXAPARIN SODIUM 30 MG/0.3 ML SYRINGE SUBQ (21:02)
[2024-05-17] MEDS: ATORVASTATIN CALCIUM 10 MG TABLET PO (21:02)
[2024-05-17] MEDS: TRAZODONE HCL 50 MG TABLET 75 MG PO (21:02)
[2024-05-18] MEDS: METHYLPREDNISOLONE SOD SUCC PF 125 MG/2 ML VIAL 60 MG IVP ×2 (03:31→10:43)
[2024-05-18 03:39] VITALS: BP 171/79; PULSE 58; TEMP 36.2; O2SAT 91
[2024-05-18] MEDS: HYDRALAZINE HCL 20 MG/ML VIAL 10 MG IVP (03:46)
[2024-05-18 04:41] VITALS: PULSE 66; O2SAT 90
[2024-05-18] MEDS: IPRATROPIUM/ALBUTEROL SULFATE 3 ML AMPUL.NEB IH ×2 (04:41→10:37)
[2024-05-18 05:52] VITALS: BP 134/68
[2024-05-18 07:01] LABS: Basophils Percent Auto 0.2 % (0.2-2.0); Hematocrit 40.4 % (42.0-54.0); Immature Granulocytes Abs Auto 0.11 10^3/uL (0.00-0.03); Immature Granulocytes Pct Auto 1.1 % (0.0-0.5); Lymphocytes Absolute Auto 0.6 10^3/uL (1.2-3.8); Lymphocytes Percent Auto 5.5 % (20.5-60.0); Mean Corpuscular HGB Conc 34.7 g/dL (29.9-35.2); Mean Corpuscular Hemoglobin 31.6 pg (25.9-34.0); Mean Corpuscular Volume 91.2 fL (80.0-94.0); Mean Platelet Volume 9.7 fL (9.5-13.5); Monocytes Absolute Auto 0.5 10^3/uL (0.3-0.8); Monocytes Percent Auto 4.7 % (1.7-12.0); Neutrophils Absolute Auto 9.2 10^3/uL (1.4-6.5); Neutrophils Percent Auto 88.5 % (43.0-75.0); Platelet Count 172 10^3/uL (150-450); Red Blood Count 4.43 10^6/uL (4.70-6.10); Red Cell Distribution Width 12.4 % (11.0-15.0); White Blood Count 10.4 10^3/uL (4.0-11.0)
[2024-05-18 07:19] LABS: Anion Gap 14.8; BUN Creatinine Ratio 30.7; Calcium 9.1 mg/dL (8.5-10.1); Carbon Dioxide 26.5 mmol/L (21.0-32.0); Chloride 108 mmol/L (98-107); Estimated GFR (African America >60 (>=60 mL/min/1.73m^2); Estimated GFR (Non-African Ame >60 (>=60 mL/min/1.73m^2); Glucose 135 mg/dL (74-106); Potassium 3.3 mmol/L (3.5-5.1); Sodium 146 mmol/L (136-145)
[2024-05-18 07:48] VITALS: BP 162/84; PULSE 71; TEMP 36.3; O2SAT 92
--- NOTE | 2024-05-18 10:08 | PT.DAILY ---
Physical Therapy Daily Note PT Daily Note/Assess Start: 05/17/24 11:27 Freq: Status: Active Protocol: Document 05/18/24 10:00 [id number] (Rec: 05/18/24 10:08 [id number]) Physical Therapy Daily Note/Assessment Time In/Time Out Time In 07:52 Time Out 08:05 Pain In Pain Level 0 Pain Out Pain Level 0 Subjective Subjective Patient states he feels much better today and is agreeable to work with PT. Patient received supine in bed, on room air. Therapeutic Exercise Time Therapeutic Exercise 5 Minutes (minutes) Therapeutic Exercise 0 Units Therapeutic Exercise Treatment Therapeutic Exercise Patient performed supine MAYRA ankle pumps, quad/glut Treatment sets x10 reps each. Seated ther ex for toe/heel rocks, LAQ's, resisted hip ABD/ADD x 10 reps to increase MAYRA LE strength for ADL's. Therapeutic Activity Time Therapeutic Activity 8 Minutes (minutes) Therapeutic Activity 1 Units Therapeutic Activity Treatment Bed Mobility Ability Standby Assistance Chair Transfer Standby Assistance Ability Therapeutic Activity Patient is on room air. Bed mobility: supine to R side Comments lying to sitting EOB with use of R bed rail is SBA. Transfer: sit to stand is SBA. Patient ambulated 40 feet x 1 with SBA. No LOB noted during walking or turns. Patient seated in chair at bedside, CBWR and nursing notified of patient placement and acknowledged information. Patient verbalized some fatigue. Total Physical Therapy Time Total Therapy 13 Minutes Total Physical 1 Therapy Units Summary Daily Note Summary Patient demonstrates improved functional mobility with increased ambulation distance and no LOB. Patient did verbalize some fatigue and would benefit from HH PT upon D/C to address functional deficits.
[2024-05-18 10:35] VITALS: PULSE 62; O2SAT 91
[2024-05-18] MEDS: GUAIFENESIN 200 MG/DEXTROMETHORPHAN 20 MG 10 ML UNIT DOSE CUP PO (10:42)
[2024-05-18] MEDS: LEVOFLOXACIN 750 MG TABLET PO (10:42)
[2024-05-18] MEDS: OSELTAMIVIR PHOSPHATE 75 MG CAPSULE PO (10:43)
[2024-05-18] MEDS: POTASSIUM CHLORIDE 10 MEQ ER TABLET 20 MEQ PO (10:44)
[2024-05-18] MEDS: LOSARTAN POTASSIUM 50 MG TABLET PO (10:45)
--- NOTE | 2024-05-18 10:48 | P.DS_ITS ---
DS: Providers Provider Date of admission: 05/16/24 09:39 Primary care physician: Graeme Read MD Consults: 05/16/24 06:58 Consult to Pharmacy Routine Consulting Provider: Reason for consultation: Please [place] me when Med Rec is Updated Has provider been notified: No Occupational Therapy Eval and Treat Routine Reason for consultation: Only if needed for Rehab Has provider been notified: No Physical Therapy Eval and Treat Routine Reason for consultation: Eval and Treat Has provider been notified: No DS: Diagnosis Discharge Diagnosis (1) Hypoxia: (2) Flu-like symptoms: (3) Acute infective exacerbation of chronic obstructive airway disease: Plan Admission findings: Acute hypoxia with O2 sat of 91% on 1 L, leukocytosis with left shift consistent with bacterial process, acute elevation in BUN and creatinine consistent with acute mild dehydration, chest x-ray consistent with left lower lobe pneumonia Acute hypoxia due to left lower lobe pneumonia possibly complicated by acute influenza A as he does have exposure, antibiotics, steroids, aerosol treatments, with current hypoxia requiring at least 1 to 2 L of supplemental oxygen,-try to wean off of supplemental oxygen was unable to do so, maintain current treatment plan, patient does feel somewhat improved but still significant hypoxia does still have a left shift on his white blood cell count consistent with acute bacterial process Acute diarrhea-he has stool studies pending. It was restarted as an outpatient Hypertension-continue with home medications hyperkalemia -= follow as outpt hypernatremia - follow as outpt BPH-continue with home medications Hypercholesterolemia continue with home medications Low back pain continue with home medications Insomnia-continue with home medications Admission status: Patient initially placed in observational status but became hypoxic overnight, medically necessary treatment will for the left lower lobe pneumonia will span 2 midnights. Inpatient status. ? DS: Summary Hospital Course Hospital Course: Patient withAcute hypoxia with O2 sat of 91% on 1 L, leukocytosis with left shift consistent with bacterial process, acute elevation in BUN and creatinine consistent with acute mild dehydration, chest x-ray consistent with left lower lobe pneumonia. Slow to recover, took a couple days to get him off of supplemental oxygen, over the last 18 hours including sleep he has been able to be off of the supplemental oxygen, so now medically stable for discharge to home. Medication status. I will follow patient up in the office next week. Time Spent with Patient Time attestation: Total time spent providing and/or coordinating discharge services: Exam Constitutional Vital Signs, click to edit/add: Last Vital Signs Temp 97.4 F L 05/18/24 07:48 Pulse 71 05/18/24 07:48 Resp 18 05/18/24 07:48 BP 162/84 H 05/18/24 07:48 Pulse Ox 92 L 05/18/24 07:48 O2 Del Method Room Air 05/18/24 07:48 O2 Flow Rate 0.5 05/17/24 17:01 Documenting provider has reviewed patient's vital signs: yes Common normals: apparent distress (Mild respiratory distress) Respiratory Common normals: normal respiratory effort (No respiratory distress) Auscultation: rhonchi (Almost resolved), wheezes (Resolved but just had aerosol) and diminished lung sounds Cardio Common normals: regular rate and regular rhythm Extremity Common normals: normal to inspection and full ROM DS: Data Data Completed and Pending Labs on day of discharge: Labs from last 24 hours 05/18/24 06:23 WBC 10.4 RBC 4.43 L Hgb 14.0 Hct 40.4 L MCV 91.2 MCH 31.6 MCHC 34.7 RDW 12.4 Plt Count 172 MPV 9.7 Neut % (Auto) 88.5 H Lymph % (Auto) 5.5 L Reeves % (Auto) 4.7 Eos % (Auto) 0.0 L Baso % (Auto) 0.2 Neut # (Auto) 9.2 H Lymph # (Auto) 0.6 L Reeves # (Auto) 0.5 Eos # (Auto) 0.0 Baso # (Auto) 0.0 Abs Immat Gran (auto) 0.11 H Imm/Tot Granulo (auto) 1.1 H Sodium 146 H Potassium 3.3 L Chloride 108 H Carbon Dioxide 26.5 Anion Gap 14.8 BUN 27.0 H Creatinine 0.88 Est GFR ( Amer) >60 Est GFR (Non-Af Amer) >60 BUN/Creatinine Ratio 30.7 Glucose 135 H Calcium 9.1 Discharge Plan Discharge Disposition: Home, Self-Care Discharge Medications: New benzonatate 100 mg Capsule 200 mg PO Q8H PRN (Reason: Cough) Qty: 30 0RF prednisone 10 mg tablet 50 mg PO DAILY Qty: 47 0RF Rx Instructions: 5/day for 3 days. 4/day for 3 days, 3/day for 3 days, 2/day for 3 days, 1/day for 3 days, 1/2 /day for 4 days levofloxacin 750 mg tablet 750 mg PO DAILY 10 Days Qty: 10 0RF Continued albuterol sulfate 90 mcg/actuation HFA aerosol inhaler 2 puff INHALATION Q6H bicalutamide 50 mg tablet 50 mg PO DAILY clonidine HCl 0.1 mg tablet 0.1 mg PO BID PRN (Reason: hypertensive emergency) Rx Instructions: Syst. >160 doxazosin 2 mg tablet 6 mg PO DAILY PRN (Reason: hypertension) fluticasone furoate-vilanterol [Breo Ellipta] 100-25 mcg/dose blister with device 1 inh INHALATION Q24H hydrochlorothiazide 25 mg tablet 25 mg PO DAILY irbesartan 150 mg tablet 150 mg PO DAILY metoprolol succinate 25 mg tablet extended release 24 hr 50 mg PO DAILY mupirocin 2 % ointment 1 applic TOPICAL BID simvastatin 10 mg tablet 10 mg PO DAILY tamsulosin 0.4 mg capsule 0.8 mg PO Q24H tizanidine 4 mg tablet 4 mg PO Q8H PRN (Reason: muscle spasticity) trazodone 50 mg tablet 75 mg PO DAILY irbesartan 75 mg tablet 75 mg PO .QD Activity: increase activity as tolerated Diet: advance to your usual diet Print Language: Omani Patient Instructions: Benzonatate (By mouth), Prednisone (By mouth), Levofloxacin (By mouth), Upper Respiratory Infection (DC), COPD (Chronic Obstructive Pulmonary Disease) (DC), Acute Diarrhea (ED), Hypoxemia (DC) Forms: Portal Instructions Follow Up Appointments: May.23 @ [address] Read [phone] Discharge Date/Time: 05/18/24 14:00
[2024-05-18 11:27] VITALS: BP 156/74; PULSE 66; TEMP 36.6; O2SAT 90
--- NOTE | 2024-05-23 15:12 | CM.DCFOLLOWU ---
Person spoke with:patient How are you feeling? half and half How is your pain? none Did you understand your discharge instructions?yes Do you have any questions about your discharge instructions?no Were you given any prescriptions at discharge? yes Were you able to get your prescriptions filled?yes Do you understand how to take your medications as ordered?yes Do you have any questions about your follow up appointment and do you plan to keep your follow up appointment? no questions follow up today Is there anything else that you would like to discuss? no Questions/Comments/Concerns/Other:none
== END 2024-05-18 14:00 | disposition home or self-care (01) | DRG 194 ==
LOC: ER 19:07 → MS 19:07
PROVIDERS: Physician Assistant; Registered Nurse; Admitting Provider Family Medicine; Emergency Provider Emergency Medicine; PCP Family Medicine; Visit Provider Family Medicine
DX: J18.9 Pneumonia, unspecified organism (principal); E87.1 Hypo-osmolality and hyponatremia; J44.0 Chronic obstructive pulmonary disease with (acute) lower respiratory infection; J44.1 Chronic obstructive pulmonary disease with (acute) exacerbation; J10.1 Influenza due to other identified influenza virus with other respiratory manifestations; R09.02 Hypoxemia; E78.00 Pure hypercholesterolemia, unspecified; E86.0 Dehydration; F17.200 Nicotine dependence, unspecified, uncomplicated; G47.00 Insomnia, unspecified; I10 Essential (primary) hypertension; M54.50 Low back pain, unspecified; N40.0 Benign prostatic hyperplasia without lower urinary tract symptoms; R19.7 Diarrhea, unspecified; Z79.51 Long term (current) use of inhaled steroids; Z79.899 Other long term (current) drug therapy
CPT/HCPCS: 36415; 71045; 80048; 80053; 82800; 83735; 83880; 84484; 85007; 85025; 85027; 85610; 87045; 87046; 87070; 87177; 87209; 87420; 87427; 87493; 87804; 87811; 93005; 94640; 94667; 94668; 94761; 96361; 96365; 96375; 97161; 97165; 97530; 99285; 99406; G0378; J0360; J0456; J0696; J1650; J2919

== ENCOUNTER 2024-06-05 09:28 | Outpatient (OUT) | payer MEDICARE, SELFPAY | END 2024-06-05 09:29 | disposition home or self-care (01) | LOC: PST 09:28 | PROVIDERS: PCP Family Medicine; Visit Provider Surgery | DX: Z01.818 Encounter for other preprocedural examination (principal); K59.00 Constipation, unspecified; R19.4 Change in bowel habit; Z12.11 Encounter for screening for malignant neoplasm of colon ==

== ENCOUNTER 2024-06-12 07:04 | Day surgery (SDC) | payer MEDICARE, SELFPAY ==
--- NOTE | 2024-06-12 | OP_ITS ---
OPERATION DATE: 06/12/2024 PREOPERATIVE DIAGNOSIS: Bowel changes, alternating diarrhea and constipation. POSTOPERATIVE DIAGNOSIS: Redundant colon with mild sigmoid diverticulosis. PROCEDURE: Colonoscopy to cecum. SURGEON: Willard Riddle M.D. ANESTHESIA: Monitored anesthesia care. ESTIMATED BLOOD LOSS: Zero. INDICATIONS AND CONSENT: Patient is a 78-year-old male presents for evaluation of bowel changes. Indications, risks, benefits, alternatives of proceeding with colonoscopy were explained extensively to the patient, including the risks of bleeding, colon perforation or anesthetic complications. All of his questions were answered. Informed consent was obtained. PROCEDURE: Patient brought to the operating room, placed in the left lateral decubitus position. Monitored anesthesia care was provided. Rectal exam was performed which showed no masses or blood. The scope was inserted into the anal canal. Under direct visualization was advanced. With the aid of abdominal compression, it was advanced to the cecum where cecal markings were clearly identified. There was noted to be a good prep. Upon withdrawal of the scope, mucosal surfaces were carefully examined. There were no mass lesions or polyps. No inflammatory changes or ulcerations. There was mild sigmoid diverticulosis without inflammatory changes or scarring. The scope was retroflexed in the anal canal. There was no significant hemorrhoidal disease. The scope was then withdrawn. Patient tolerated procedure well, was sent to recovery room in good condition. Follow up colonoscopy for screening will likely not be required, but if patient remains in good health, could have one in 10 years. CC: Graeme Read M.D. CINDY
--- OUTSIDE RECORDS SUMMARY | 2024-06-12 07:09 | XMS_ITS | CCD ---
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, Christiano Unavailable [phone] Etta PROCTOR, Umer Unavailable Arline Orosco MD Primary Care Provider [phone] VALERIA, LEROY Admitting Unavailable VALERIA LEROY Consulting Unavailable VALERIASHANNAN VELIZOTHY Attending Unavailable KWESI ., DR NUNN Primary Care Unavailable HOY ., DR NUNN Consulting Unavailable HOY ., DR NUNN Attending Unavailable HOY ., DR NUNN Admitting Unavailable HOY ., DR NUNN Primary Care Unavailable HAY .DR ACKERMAN Consulting Unavailable BONNIEAMOLMAICOL BoyerRICHY Consulting Unavailable KWESI ., DR NUNN Primary [...] Unavailable HOY ., DR NUNN Admitting Unavailable VALERIALEROY VELIZ Consulting Unavailable VALERIALEROY VELIZ Attending Unavailable VALERIA, LEROY Admitting Unavailable HOY ., DR NUNN [...] HOY ., DR NUNN Primary Care Unavailable BONNIE LOPEZYL Consulting Unavailable DIAB ., SAGE Attending Unavailable DIAB ., SAGE Admitting Unavailable HOY ., DR NUNN Primary Care Unavailable RONDA ALBRIGHT Consulting Unavailable DIAB ., SAGE Consulting Unavailable ARLINE OROSCO Primary Care Unavailable DONTE GUZMAN Referring Unavaila ble Arline Orosco Unavailable Unavailable Unavailable MD Arline Orosco Primary Care Provider [phone] MD Clarence Gregory Attending Provider Baldo Gifford Referring Unavailable Dr. Arline Orosco Primary Care Unavail able Baldo Gifford Attending Unavailable Baldo Gifford Referring Unavailable Dr. Arline Orosco Primary Care Unavail able Baldo Gifford Attending Unavailable Etta PROCTOR, Umer Unavailable [phone] UI, BARB C Referring Unavailable ARLINE OROSCO Primary Care Unavailable Arline Orosco MD Primary Care Provider [phone] Arline Orosco MD Primary Care Provider [phone] BALDO GIFFORD Attending Unavailable ARLINE OROSCO Primary Care Unavailable MD Arline Orosco Primary Care Provider [phone] MD Clarence Gregory Attending Provider [phone] LEROY SHAW Attending Unavailable HOY, ARLINE M Referring Unavailable HOY, ARLINE M Primary Care Unavailable HOY, ARLINE M Referring Unavailable HOY, ARLINE M Primary Care Unavailable LEROY SHAW Admitting Unavailable LEROY SHAW Attending Unavailable LEROY SHAW Referring Unavailable HOY, ARLINE M Primary Care Unavailable HOY, ARLINE M Referring Unavailable HOY, ARLINE M Primary Care Unavailable HOY, ARLINE M Referring Unavailable HOY, ARLINE M Primary Care Unavailable LEROY SHAW Admitting Unavailable LEROY SHAW Attending Unavailable HOY, ARLINE M Primary Care Unavailable Arline Orosco MD Primary Care Provider [phone] ONEIL CASTRO Attending Unavailable Willard MONDRAGON Attending Unavailable Hoy, Arline Referring Unavailable Clarence Gregory Admitting Unavailable Hoy, Arline M Primary Care Unavailable Clarence Gregory Attending Unavailable Hoy, Arline M Primary Care Unavailable Daniel Mina Attending Unavailable Daniel Mina Admitting Unavailable Arline Orosco MD Primary Care Provider [phone] Daniel Mina PA-C Attending Provider Arline Orosco Primary Care Physician [phone] HOY, ARLINE M Primary Care Unavailable JOSE FRANCISCO BROUSSARD Attending Unavailable JOSE FRANCISCO BROUSSARD Referring Unavailable HOY, ARLINE M Primary Care Unavailable Liv GUZMAN Attending Unavailable HOY, ARLINE M Primary Care Unavailable JOSE FRANCISCO BROUSSARD Referring Unavailable HOY, ARLINE M Primary Care Unavailable HOY, ARLINE M Primary Care Unavailable HOY, ARLINE M Primary Care Unavailable PADDYENSEDWIGE LOLA S Referring Unavaila ble TIFFANY LOLA S Attending Unavaila ble HOY, ARLINE M Primary Care Unavailable JOSE FRANCISCO BROUSSARD Referring Unavailable ISADORA CARTY Attending Unavailable HOY, ARLINE M Primary Care Unavailable HOY, ARLINE M Primary Care Unavailable Liv GUZMAN Attending Unavailable HOY, ARLINE M Primary Care Unavailable JOSE FRANCISCO BROUSSARD Attending Unavailable JOSE FRANCISCO BROUSSARD Referring Unavailable HOY, ARLINE M Primary Care Unavailable HOY, ARLINE M Primary Care Unavailable Liv GUZMAN Referring Unavailable HOY, ARLINE M Primary Care Unavailable JOSE FRANCISCO BROUSSARD Referring Unavailable JOSE FRANCISCO BROUSSARD Attending Unavailable ARLINE OROSCO Primary Care Unavailable JOSE FRANCISCO BROUSSARD Referring Unavailable ARLINE OROSCO Primary Care Unavailable Allergies Allergy Classification Reported Allergen(s) Allergy Type Date of Onset Reaction(s) Facility (20 sources) Chlorhexidine; Translations: [CHLORHEXIDINE] Drug Allergy 4 Rash, Eruption of skin (disorder) [facility] (20 sources) hibaclens [Other] Propensity to adverse reactions 2 Rash [facility] Work Phone: (1 source) Chlorhexidine Drug Allergy 4 [facility] Repository (3 sources) OTHER; Translations: [OTHER] Propensity to adverse reactions (disorder) 2 [facility] Other [place] [facility] (3 sources) Chlorhexidine; Translations: [CHLORHEXIDINE GLUCONATE] Drug Allergy 6 [facility] (1 source) Chlorhexidine; Translations: [chlorhexidine topical] Drug Allergy 4 [facility] Repository (1 source) Chlorhexidine Drug Allergy 4 [facility] Repository Medications Current Medications Medication Drug Class(es) Dates Sig (Normalized) Sig (Original) acyclovir 0.05 mg/mg topical ointment (16 sources) Herpesvirus Nucleoside Analog DNA Polymerase Inhibitor, Herpes Simplex Virus Nucleoside Analog DNA Polymerase Inhibitor, Herpes Zoster Virus Nucleoside Analog DNA Polymerase Inhibitor Start: 04-10-2023 acyclovir (ZOVIRAX) 5 % ointment APPLY EXTERNALLY EVERY 3 HOURS *6 TIMES A DAY* NEEDED 04/10/2023 Active Comment on above: APPLY EXTERNALLY RICKEY RY 3 HOURS *6 TIMES A DAY* NEEDED [id number] actuat albuterol 0.09 mg/actuat metered dose inhaler (20 sources) beta2-Adrenergic Agonist Start: 07-10-2023 take 2 puff(s) by mouth four times daily albuterol HFA (PROVENTIL HFA, VENTOLIN HFA) 90 mcg/actuation inhaler INHALE 2 PUFFS BY MOUTH 4 TIMES A DAY 07/10/2023 Active Start: 07-10-2023 take 2 puff(s) by mo uth four times daily albuterol HFA 90 mcg/act [...] on above: INHALE 2 PUFFS BY MO [facility] 4 TIMES A DAY ascorbic acid 500 mg oral tablet (20 sources) Vitamin C take 1 tablet by mouth once daily ascorbic acid, vitamin C, (VITAMIN C) 500 mg tablet Take 500 mg by mouth once daily. Active [facility] ascorbic acid (Vitamin C) 500 MG tablet Take 500 mg by mouth in the morning. Active Comment on above: Take 500 mg by mouth once daily. aspirin 81 mg chewable tablet (20 sources) Platelet Aggregation Inhibitor, Nonsteroidal Anti-inflammatory Drug Start: 04-23-2024 aspirin 81 mg Chew Tab 81 mg = 1 tab(s), Chewed, Daily, Refills(s) 0 Start Date: 04/23/24 Status: Ordered Start: 09-14-2018 Aspirin (Kimberly Low Dose Aspirin) 81 mg Tablet,Delayed Release (Dr/Ec) Active 81 MG PO Daily September 13, 2018 11:00pm Comment on above: Take 81 mg by mouth once daily. betamethasone 0.5 mg/ml / clotrimazole 10 mg/ml topical cream (16 sources) Azole Antifungal, Corticosteroid Start: 05-26-19 clotrimazole-betame thasone (LOTRISONE) cream APPLY 1 APPLICATION EXTERNALLY TWICE A DAY 05/26/2023 Active Comment on above: APPLY 1 APPLICATION EXTERNALLY TWICE A DAY bicalutamide 50 mg oral tablet (20 sources) Androgen Receptor Inhibitor Start: 04-23-20 take 1 tablet by mouth every twenty-four hours Casodex 50 mg Tab 50 mg = 1 tab(s), Oral, q24hr, Refills(s) 0 Start Date: 04/23/24 Status: Ordered Start: 06-26-2023 End: 04-09-2024 take 1 tablet by mouth once daily bicalutamide (CASODEX) 50 mg tablet TAKE 1 TABLET BY MOUTH EVERY DAY 90 tablet 1 04/09/2024 Active Comment on above: Take 1 tablet by shon th once daily. take 1 tablet by shon th every day Calcium Carb And Citrate-Vitd3 (2 sources) Start: 09-14-2018 take 1 tablet by mouth once daily Calcium Carb And Citrate-Vitd3 Active 1 TAB PO Daily September 14, 2018 12:00am Calcium Carb, Citrate-Vit D3 600 mg calcium- 500 unit Tablet Extended Release (1 source) Start: 09-14-2018 take 1 tablet by mouth once daily Calcium Carb, Citrate-Vit D3 600 mg calcium- 500 unit Tablet Extended Release Active 1 TAB PO Daily September 13, 2018 11:00pm calcium carbonate 625 mg / cholecalciferol 125 unt oral tablet (20 sources) Vitamin D take 1 tablet by mouth once daily calcium-cholecalc iferol, D3, (OSCAL+D 250) 250 mg-3.125 mcg (125 unit) per tablet Take 1 tablet by mouth once daily. Active take 1 tablet by shon th in the morning Calcium Carb-Cholecalciferol 250-3.125 M G-MCG tablet Take 1 tablet by mouth in the morning. Active Comment on above: Take 1 tablet by shon th once daily. CALCIUM CITRATE/VITAMIN D3 (CALCIUM CITRATE + ORAL) (1 source) take 1 tablet by mouth once daily CALCIUM CITRATE/VITAMIN D3 (CALCIUM CITRATE + ORAL) Take 1 tablet by mouth daily. 0 Active cetirizine hydrochloride 10 mg oral tablet (20 sources) Histamine-1 Receptor Antagonist Start: take 1 tablet by mouth once daily cetirizine 10 mg Tab 10 mg = 1 tab(s), Oral, Daily, Refills(s) 0 Start Date: 04/23/24 Status: Ordered Start: 09-14-2018 take 1 capsule by mo uth once daily Cetirizine (Zyrtec) 10 mg Capsule Active 1 CAP PO Daily September 13, 2018 11:00pm take 1 tablet by shon th in the morning cetirizine (ZyrTEC) 10 mg tablet Take 1 tablet (10 mg total) by mouth in the morning. 0 Active Comment on above: Take by mouth. chlorthalidone 25 mg oral tablet (20 sources) Thiazide-like Diuretic Start: take 0.5 tablet by mouth once daily Chlorthalidone 25 MG Oral Tablet take 1/2 tablet daily Quantity: 45 Refills: 3 Ordered: 11-Oct-2022 Baldo Gifford MD Start : 11-Oct-2022 Active new dose Start: 09-01-2022 End: 12-20-2023 Chlorthalidone 25 mg tablet Active 25 MG PO November 13, 2023 11:00pm Comment on above: Take 25 mg by mouth once daily. cholecalciferol 0.05 mg oral capsule (20 sources) Vitamin D Start: 09-14-2018 Cholecalciferol, Vitamin D3, 50 mcg (2,000 unit) cap 2,000 Units. 09/14/2018 Active Start: 09-14-2018 End: 11-14-2023 take 1 capsule by mouth once daily Cholecalciferol (Vitamin D3) (Vitamin D3) 2,000 unit Capsule Discontinued 2000 UNIT PO Daily September 13, 2018 11:00pm November 14, 2023 1:15pm take 1 tablet by shon once daily Vitamin D3 50 MCG (2000 UT) Oral Tablet Take 1 tablet daily Quantity: 0 Refills: 0 Ordered: 01-Sep-2022 DO Active Comment on above: 2,000 Units. ciclopirox 0.0077 mg/mg topical gel (19 sources) Start: 03-08-2023 Ciclopirox (LOPROX) 0.77 % gel APPLY TO BOTH FEET AND TOE WEBBING TWICE A DAY 04/10/2023 Active Comment on above: APPLY TO BOTH FEET A ND TOE WEBBING TWICE A DAY cloNIDine hydrochloride 0.1 mg oral tablet (10 sources) Central alpha-2 Adrenergic Agonist Start: 11-14-2023 Clonidine Hcl 0.1 mg tablet Active 0.1 MG PO November 13, 2023 11:00pm End: 11-24-2022 take 1 tablet by mouth twice daily as needed cloNIDine HCl (CATAPRES) 0.1 mg tablet Take 0.1 mg by mouth twice daily. Prn systolic >160 0 11/24/2022 Discontinued Comment on above: Take 0.1 mg by mouth twice daily. Prn systolic >160 1 ml denosumab 60 mg/ml prefilled syringe (20 sources) RANK Ligand Inhibitor Start: 12-20-2023 End: 12-20-2023 denosumab 60 mg injection (PROLIA) Start: 11-19-2020 End: 11-04-2023 denosumab (PROLIA) injection 60 mg Start: 09-14-2018 Prolia 60 mg/m L subcutaneous solution 60 mg, SubCutaneous, q6mo, Refills(s) 0 Start Date: 04/23/24 Status: Ordered inject 60 mg by subc utaneous injection once denosumab (PROLIA) 60 mg/mL Inject 60 mg subcutaneously one time only. Active Comment on above: Inject 60 mg subcuta neously one time only. docusate sodium 100 mg oral capsule (20 sources) Start: take 1 capsule by mouth once daily as needed for constipation Colace 100 mg Cap 100 mg = 1 cap(s), Oral, Daily, PRN for constipation, Refills(s) 0 Start Date: 04/23/24 Status: Ordered Start: 09-14-2018 take 1 capsule by [facility] twice daily Docusate Sodium (Colace) 100 mg Capsule Active 100 MG PO Twice daily September 13, 2018 11:00pm Docusate Sodium 100 mg tab Take 2 tablets by mouth. Active DOCUSATE CALCIUM (STOOL SOFTENER ORAL) Take 1 capsule by mouth as needed. 0 Active Docusate Sodium 100 MG TABS TAKE 1 TABLET DAILY DIRECTED AT BEDTIME Quantity: 0 Refills: 0 Ordered: 01-Sep-2022 DO Active Comment on above: Take 2 tablets by [facility]. doxazosin 2 mg oral tablet (20 sources) alpha-Adrenergic Gabi Start: 06-07-2023 take 3 tablets by mouth once doxazosin (CARDURA) 2 mg tablet Take 3 tablets by mouth every afternoon. 06/07/2023 Active Start: 09-14-2018 [facility] Doxazosin (Cardura) 2 mg Tablet Active 2 MG PO Daily September 13, 2018 11:00pm End: 05-17-2023 doxazosin mesylate (CARDURA ORAL) Take 6 mg by mouth. 05/17/2023 Discontinued (Course of therapy completed) doxazosin mesyla te (CARDURA ORAL) Take 6 mg by mouth. 0 Active doxazosin mesyla te (CARDURA ORAL) Take 0.5 mg by mouth. 0 Active Comment on above: Take 0.5 mg by mouth . Take 6 mg by mouth. Take 3 tablets by mo ut every afternoon. fluticasone / vilanterol (20 sources) Corticosteroid, beta2-Adrenergic Agonist Start: take 1 puff(s) by inhalation once daily Breo Ellipta 100 mcg-25 mcg inhalation powder 1 puff(s), Inhalation, Daily, 30 dose unit Start Date: 04/23/24 Status: Ordered Start: 09-14-2018 Fluticasone Fu roate-Vilanterol (Breo Ellipta) 100-25 mcg/dose Blister With Device Active 1 INH INHALATION Daily September 13, 2018 11:00pm Start: 08-07-2017 take 1 puff(s) by in halation once daily BREO ELLIPTA 100-25 mcg/dose blister with device Inhale 1 puff once daily. 0 08/07/2017 Active Comment on above: Inhale 1 Inhalation as instructed once daily. hydroCHLOROthiazide 25 mg oral tablet (20 sources) Thiazide Diuretic Start: 2023 take 1 tablet by mouth once daily hydrochlorothiazide 25 mg Tab 25 mg = 1 tab(s), Oral, Daily, Refills(s) 0 Start Date: 04/23/24 Status: Ordered Start: 09-14-2018 End: 11-14-2023 take 1 tablet by mouth once daily Hydrochlorothiazide 25 mg Tablet Discontinued 25 MG PO Daily September 13, 2018 11:00pm November 14, 2023 1:15pm HYDROCHLOROTHIAZ MARY ORAL Take by mouth. Active Comment on above: Take 25 mg by mouth once daily. irbesartan 75 mg oral tablet (20 sources) Angiotensin 2 Receptor Gabi Start: 04-23-2024 take 1 tablet by mouth twice daily irbesartan 75 mg Tab 75 mg = 1 tab(s), Oral, BID, Refills(s) 0 Start Date: 04/23/24 Status: Ordered Start: 11-14-2023 Irbesartan 75 mg tablet Active 75 MG PO November 13, 2023 11:00pm Start: 08-01-2022 End: 11-24-2022 take 1 tablet by mouth once daily irbesartan (AVAPRO) 300 mg tablet Take 300 mg by mouth once daily. 0 08/01/2022 11/24/2022 Discontinued Comment on above: Take 300 mg by mouth once daily. Take 75 mg by mouth daily at bedtime. 1.5 ml leuprolide acetate 30 mg/ml prefilled syringe (20 sources) Gonadotropin Releasing Hormone Receptor Agonist Start: 04-23-2024 Lupron Depot 45 mg/6 months intramuscular injection, extended release 45 mg, IntraMuscular, q6mo, Refills(s) 0 Start Date: 04/23/24 Status: Ordered Start: 09-14-2018 End: 12-20-2023 Leuprolide Acetate (6 Month) (Lupron Depot (6 Month)) 45 mg Syringe Kit Active 45 MG IM EVERY 6 MONTHS September 13, 2018 11:00pm inject 45 mg by intr amuscular injection once leuprolide, 6 month, (LUPRON DEPOT, 6 MONTH,) sykt IM syringe kit Inject 45 mg intramuscularly one time only. Active Lupron SOLN 1 in jection every 6 months Quantity: 0 Refills: 0 Ordered: 01-Sep-2022 DO Active Comment on above: Inject 45 mg intramu scularly one time only. 24 hr metoprolol succinate 25 mg extended release oral tablet (20 sources) beta-Adrenergic Gabi Start: take 2 tablets by mouth once daily metoprolol succinate 25 mg ER Tab 50 mg = 2 tab(s), Oral, Daily, Refills(s) 0 Start Date: 04/23/24 Status: Ordered Start: 11-14-2023 take 1 tablet by shon th every twenty-four hours Metoprolol Succinate 25 mg tablet extended release 24 hr Active 25 MG PO November 13, 2023 11:00pm Start: 11-14-2023 End: 09-23-2022 Metoprolol Succinate Active 25 MG PO November 14, 2023 12:00am take 1 tablet by mouth once lenard y metoprolol succinate ER (TOPROL XL) 25 mg 24 hr tablet Take 25 mg by mouth once daily. Active take 1 tablet by mouth once lenard y metoprolol succinate XL (Toprol-XL) 25 MG 24 hr tablet Take 50 mg by mouth Daily Active End: 08-17-2023 metoprolol tartrate, short a [...] and 500 mg before bedtime. 10/20/2023 Active Multi Vitamins oral tablet (1 source) Start: 04-23-20 take 1 tablet by mouth once daily Multi Vitamins oral tablet 1 tab(s), Oral, Daily, Refill(s) 0 Start Date: 04/23/24 Status: Ordered MULTI-VITAMIN ORAL (20 sources) MULTI-VITAMIN OR AL Take by mouth. Active MULTI-VITAMIN OR AL Take by mouth. 0 Active Comment on above: Take by mouth. Multiple Vitamin (Multi-Vitamin) tablet (2 sources) take 1 tablet by mouth in the morning Multiple Vitamin (Multi-Vitamin) tablet Take 1 tablet by mouth in the morning. Active Multivitamin (Multiple Vitamins) Tablet (3 sources) Start: 09-14-2018 take 1 tablet by mouth once daily Multivitamin (Multiple Vitamins) Tablet Active 1 TAB PO Daily September 13, 2018 11:00pm Start: 09-14-2018 take 1 tablet by shon th once daily Multivitamin (Multiple Vitamins) Tablet Active 1 TAB PO Daily September 14, 2018 12:00am Multivitamin preparation (1 source) take 1 tablet by shon th once daily MULTIVITAMIN (MULTIPLE VITAMINS ORAL) Take 1 tablet by mouth daily. 0 Active multivitamin tablet (16 sources) take 1 tablet by shon th once daily multivitamin tablet Take 1 tablet by mouth once daily. Active take 1 tablet by mouth once lenard y multivitamin tablet Take 1 tablet by mouth once daily. 0 Active Comment on above: Take 1 tablet by shon th once daily. mupirocin 0.02 mg/mg topical ointment (18 sources) RNA Synthetase Inhibitor Antibacterial Start: 04-09-2023 mupirocin (BACTROBAN) 2 % ointment Apply to affected area two times a day. APPLY TO AFFECTED AREA 04/09/2023 Active Comment on above: Apply to affected ar ea two times a day. APPLY TO AFFECTED AREA naproxen sodium 220 mg oral tablet (20 sources) Nonsteroidal Anti-inflammatory Drug naproxen sodium (Aleve) 220 MG tablet Take 220 mg by mouth every 12 (twelve) hours if needed Active End: 09-23-2022 take 1 tablet by mouth twice daily at mealtime naproxen sodium (ANAPROX) 220 mg tablet Take 220 mg by mouth twice daily with meals. 09/23/2022 Discontinued [facility] hours as needed for pain naproxen sodium (ALEVE) 220 mg tablet Take 1 tablet (220 mg total) by mouth every 12 (twelve) hours as needed for pain. 0 Active Comment on above: Take 220 mg by mouth twice daily with meals. potassium chloride 10 meq extended release oral capsule (11 sources) Start: 06-28-2023 End: 12-20-2023 Potassium Chloride 10 mEq capsule, extended release Active 10 MEQ PO November 13, 2023 11:00pm Comment on above: TAKE 1 CAPSULE BY [facility] TWICE A DAY WITH FOOD FOR 30 DAYS simethicone 125 mg oral tablet (20 sources) Start: 09-14-2018 take 1 tablet by mouth once daily Simethicone 125 mg Tablet Active 125 MG PO Daily September 13, 2018 11:00pm Simethicone 125 mg cap Take by mouth. Active Comment on above: Take by mouth. simvastatin 10 mg oral tablet (20 sources) HMG-CoA Reductase Inhibitor Start: 4 take 1 tablet by mouth once daily in the evening simvastatin 10 mg Tab 10 mg = 1 tab(s), Oral, qPM, Refills(s) 0 Start Date: 04/23/24 Status: Ordered Comment on above: Take 10 mg by mouth daily at bedtime. tamsulosin hydrochloride 0.4 mg oral capsule (20 sources) alpha-Adrenergic Gabi Start: 4 take 2 capsules by mouth once daily tamsulosin 0.4 mg Cap 0.8 mg = 2 cap(s), Oral, Daily, Refills(s) 0 Start Date: 04/23/24 Status: Ordered Start: 03-21-2023 take 2 capsules by m out once daily tamsulosin (FLOMAX) 0.4 mg capsule TAKE 2 CAPSULES BY MOUTH EVERY DAY 180 capsule 3 03/21/2023 Active Start: 09-14-2018 take 1 capsule by mo [facility] once daily Tamsulosin (Flomax) 0.4 mg Capsule Active 0.4 MG PO Daily September 13, 2018 11:00pm take 1 capsule by mo uth every twenty-four hours in the morning tamsulosin (Flomax) 0.4 MG 24 hr capsule Take 0.4 mg by mouth in the morning. Active take 2 capsules by m outh once daily at bedtime Tamsulosin HCl - 0.4 MG Oral Capsule TAKE 2 CAPSULE Daily At Bedtime Quantity: 180 Refills: 0 Ordered: 01-Sep-2022 DO Active Comment on above: Take 0.4 mg by mouth once daily. 2 daily tiZANidine 4 mg oral tablet (19 sources) Central alpha-2 Adrenergic Agonist Start: 3 take 1 tablet by mouth every eight hours as needed tiZANidine (ZANAFLEX) 4 mg tablet Take 4 mg by mouth three times a day as needed. 04/20/2023 Active Comment on above: Take 4 mg by mouth t hree times a day as needed. traZODone hydrochloride 50 mg oral tablet (20 sources) Serotonin Reuptake Inhibitor Start: 4 traZODONE 50 mg Tab 75 mg = 1.5 tab(s), Oral, Once a day (at bedtime), Refills(s) 0 Start Date: 04/23/24 Status: Ordered Start: 07-25-2016 End: 04-10-2023 traZODone (DESYREL) 50 mg ta blet Daily 07/25/2016 Active Comment on above: Take 50 mg by mouth daily at bedtime. Daily vitamin e 180 mg oral tablet (20 sources) Start: 09-14-2018 vitamin E acid succinate (VITAMIN E SUCCINATE) 268 mg (400 unit) tab Vitamin E Active 200 UNIT PO Daily September 14, 2018 12:00am 09/14/2018 Active Start: 09-14-2018 take 1 capsule by mouth once d aily Vitamin E 200 unit Capsule Active 200 UNIT PO Daily September 13, 2018 11:00pm take 1 capsule by mouth once kandy ly Vitamin E, dl, acetate, (VITAMIN E) 400 unit capsule Take 400 Units by mouth once daily. Active Vitamin E (Vitam in E/D-Alpha Natural) 268 MG (400 UNIT) capsule Take 400 Units by mouth in the morning. Active take 1 capsule by mouth once kandy ly Vitamin E, dl, acetate, (VITAMIN E) 400 unit capsule Take 400 Units by mouth once daily. 0 Active Comment on above: Take 400 Units by mo [facility] once daily. Vitamin E Active 200 UNIT [...] 1 tablet by mouth once daily Dulcolax [place] Laxative 5 MG Oral Tablet Delayed Release [...] Active Comment on above: Take by mouth. enzalutamide 40 mg oral tablet (17 sources) Androgen Receptor Inhibitor Start: 3 take 4 tablets by mouth once daily [...] sources) Serotonin Reuptake Inhibitor Start: 9 End: take 10 mg by mouth once daily Escitalopram Oxalate (Lexapro) 20 mg Tablet Discontinued 10 MG PO Daily September 13, 2018 11:00pm November 14, 2023 1:15pm End: 05-17-2023 take 1 tablet by mouth once daily escitalopram (Lexapro) 20 MG tablet Take 20 mg by mouth Daily Active Comment on above: Take 20 mg by mouth once daily. iv contrast [...] tablet (20 sources) Cholinergic Muscarinic Antagonist End: 4 take 1 tablet by mouth twice daily [...] (20 sources) Proton Pump Inhibitor Start: 2 End: 4 take 1 tablet by mouth once daily pantoprazole DR (PROTONIX) 40 mg tablet Take 40 mg by mouth once daily. 04/30/2022 05/17/2023 Discontinued Comment on above: Take 40 mg by mouth once daily. 24 hr tolterodine tartrate 4 mg extended release oral capsule (10 sources) Cholinergic Muscarinic Antagonist Start: 9 tolterodine ER (DETROL LA) 4 mg 24 hr capsule 4 mg. 0 09/14/2018 Active Start: 09-14-2018 End: 11-14-2023 take 1 capsule by mouth once daily Tolterodine (Detrol La) 4 mg Capsule,Extended Release 24hr Discontinued 4 MG PO Daily September 13, 2018 11:00pm November 14, 2023 1:15pm Comment on above: 4 mg. Daily traMADol hydrochloride 50 mg oral tablet (3 sources) Opioid Agonist Start: 10-02-2018 End: 11-14-2023 Tramadol 50 mg tablet Discontinued 50 MG PO every 6 to 8 hours as needed for pain 01 12October 01, 2018 11:00pm November 14, 2023 1:15pm Problems Active Problems Problem Classification Problem Date Documented Da te Episodic/Chronic Aortic; peripheral; and visceral artery aneurysms (6 sources) Abdominal aortic aneurysm; Translations: [Abdominal aortic aneurysm (AAA)] Onset: 4 11-14-2023 Chronic Blindness and vision defects (6 sources) Diplopia; Translations: [Diplopia] Onset: 3 Episodic Cancer of bladder (3 sources) Malignant tumor of urinary bladder; Translations: [Malignant neoplasm of bladder, unspecified] Onset: 7 07-04-2023 Chronic Cancer of bladder (1 source) Personal history of malignant neoplasm of bladder; Translations: [PERSONAL HX MALIG NEOPLASM BLADDER] Onset: 3 Episodic Cancer of prostate (20 sources) Malignant tumor of prostate; Translations: [Malignant neoplasm of prostate] Onset: 2 Resolved: 1 06-02-2011 Chronic Cardiac dysrhythmias (1 source) Bradycardia, unspecified; Translations: [BRADYCARDIA UNSPECIFIED] Onset: 3 Episodic Cataract (3 sources) Bilateral pseudophakia; Translations: [Presence of intraocular lens] Chronic Chronic obstructive pulmonary disease and bronchiectasis (20 sources) Chronic obstructive lung disease; Translations: [Chronic obstructive pulmonary disease, unspecified] Onset: 8 06-23-2021 Chronic Conduction disorders (7 sources) First degree atrioventricular block; Translations: [Atrioventricular block, first degree] Onset: 4 08-02-2021 Chronic Disorders of lipid metabolism (20 sources) Mixed hyperlipidemia; Translations: [Mixed hyperlipidemia] Onset: 7 06-23-2021 Chronic Essential hypertension (20 sources) Hypertensive disorder; Translations: [Essential (primary) hypertension] Onset: 7 06-23-2021 Chronic Headache; including migraine (1 source) Chronic tension-type headache 04-22-2024 Chronic Headache; including migraine (3 sources) Headache; including migraine; Translations: [HEADACHE UNSPECIFIED] Onset: 3 Hypertension with complications and secondary hypertension (1 source) Hypertensive urgency; Translations: [HYPERTENSIVE URGENCY] Onset: 3 Chronic Influenza (1 source) Influenza due to unidentified influenza virus with other respiratory manifestations; Translations: [Influenza due to unidentified influenza virus with other respiratory manifestations] Onset: 5 Episodic Mood disorders (1 source) Depressive disorder 04-22-2024 Chronic Mood disorders (1 source) Mood disorders; Translations: [DEPRESSION UNSPECIFIED] Onset: 3 Mycoses (2 sources) Onychomycosis; Translations: [Tinea unguium] 05-01-2024 Episodic Nutritional deficiencies (1 source) Vitamin D deficiency, unspecified; Translations: [VITAMIN D DEFICIENCY UNSPECIFIED] Onset: 2 Chronic Occlusion or stenosis of precerebral arteries (7 sources) Bilateral stenosis of carotid arteries; Translations: [Occlusion and stenosis of bilateral carotid arteries] Onset: 4 11-14-2023 Chronic Osteoarthritis (3 sources) Arthritis; Translations: [Unspecified osteoarthritis, unspecified site] Onset: 7 09-20-2016 Chronic Other aftercare (1 source) terminal gauger (current) use of aspirin; Translations: [INFORMATION TECH CURRENT USE OF ASPIRIN] Onset: 3 Episodic Other aftercare (1 source) Other half-way (current) drug therapy; Translations: [OTH CORRECTION CURRENT DRUG THERAPY] Onset: 3 Episodic Other bone disease and musculoskeletal deformities (5 sources) Other specified disorders of bone density and structure, unspecified site; Translations: [OTH D/O BONE DEN STRUCT UNS SITE] Onset: 3 Episodic Other circulatory disease (1 source) Orthostatic hypotension; Translations: [Orthostatic hypotension] Onset: 3 Episodic Other circulatory disease (3 sources) Orthostatic hypotension; Translations: [Orthostatic hypotension] 03-27-2023 Episodic Other ear and sense organ disorders (3 sources) Hearing loss; Translations: [Unspecified hearing loss, unspecified ear] Onset: 7 08-01-2022 Chronic Other eye disorders (2 sources) Bilateral posterior vitreous detachment; Translations: [Vitreous degeneration, bilateral] Chronic Other eye disorders (1 source) Tear film insufficiency; Translations: [Dry eye syndrome of bilateral lacrimal glands] Episodic Other gastrointestinal disorders (1 source) Chronic constipation 04-22-2024 Episodic Other non-traumatic joint disorders (1 source) Pain in right hip joint; Translations: [Pain in right hip] 12-20-2023 Episodic Other non-traumatic joint disorders (1 source) Pain in right hip; Translations: [Pain in right hip] Onset: 4 Episodic Other nutritional; endocrine; and metabolic disorders (1 source) Hypercalcemia; Translations: [Hypercalcemia] 12-20-2023 Chronic Other nutritional; endocrine; and metabolic disorders (1 source) Overweight 04-22-2024 Episodic Other screening for suspected conditions (not mental disorders or infectious disease) (4 sources) Computed tomography result abnormal; Translations: [Abnormal findings on diagnostic imaging of other specified body structures] Onset: 7 Resolved: 7 08-01-2022 Chronic Other skin disorders (2 sources) Callosity; Translations: [Corns and callosities] 05-01-2024 Episodic Other upper respiratory disease (1 source) Nasal congestion; Translations: [NASAL CONGESTION] Onset: 3 Episodic Peripheral and visceral atherosclerosis (4 sources) Peripheral vascular disease, unspecified; Translations: [Peripheral vascular disease, unspecified] Onset: 4 05-01-2024 Chronic Residual codes; unclassified (9 sources) Body mass index 20-24 - normal; Translations: [Body Mass Index between 19-24, adult] Episodic Residual codes; unclassified (1 source) Tobacco user 05-22-2024 Episodic Substance-related disorders (18 sources) Nicotine dependence, cigarettes, uncomplicated; Translations: [Smokes tobacco daily] Onset: 7 08-01-2022 Chronic Comment on above: 1 PPD; Thyroid disorders (1 source) Hypothyroidism 04-22-2024 Chronic Transient cerebral ischemia (1 source) Transient cerebral ischemic attack, unspecified; Translations: [TRANS CERBRAL ISCHEMIC ATTACK UNS] Onset: 3 Chronic Unclassified (4 sources) CONTACT W/AND (SUSP) EXPOS COVID-19; Translations: [CONTACT W/AND (SUSP) EXPOS COVID-19] Onset: 3 Unclassified (4 sources) COUGH, UNSPECIFIED; Translations: [COUGH, UNSPECIFIED] Onset: 2 Unclassified (1 source) Malignant neoplasm of urinary bladder, unspecified site ([facility]) [C67.9] Onset: 4 Varicose veins of lower extremity (2 sources) [...] Onset: 06-02-2011 06-02-2011 Episodic Hyperplasia of prostate (13 sources) Benign prostatic hyperplasia; Translations: [Benign prostatic [...] Episodic Other diseases of bladder and urethra (2 sources) Urethral stricture; Translations: [Unspecified urethral stricture, male, unspecified site] Onset: 05-17-2016 08-01-2022 Episodic Other diseases of kidney and ureters (2 sources) Cyst of kidney; Translations: [Cyst of kidney, [...] Test Name Value Interpretation Reference Range Facility [facility] 06-06-2024 CNPN Telephone (LABSAN) JM BARROW ([id number]) 1945 M Date Time Provider Department 06/06/24 CHRISTIANO CARDENAS During your visit today, we recorded the following information about you: Agustin Acevedo 06/06/2024 8:05 AM Signed Patient is coming in 06/13/24 for lab prior to RV with no orders. Please review and place needed labs. Best regards, Vicky Acevedo MLT Allergies As of Date: 06/06/2024 Noted Allergy Reaction CHLORHEXIDINE 05/21/2013 2 - Rash hibaclens [Other] 06/02/2011 2 - Rash Date Reviewed: 04/09/2024 Reviewed by: Christiano Cardenas APRN.FEED ADVISER - Fully Assessed Reason for Visit: Lab Orders [1688] Primary Visit Diagnosis:Malignant neoplasm of prostate (HCC) [C61] Order(s):COMPLETE BLOOD COUNT AND DIFFERENTIAL [SQCBCDIF] Order #: [id number] FUTURE COMPREHENSIVE METABOLIC PANEL [SQCMP] Order #: [id number] FUTURE PROSTATE-SPECIFIC ANTIGEN DIAGNOSTIC [SQPSA] Order #: [id number] FUTURE Prescriptions as of 06/06/2024 - bicalutamide (CASODEX) 50 mg tablet TAKE 1 TABLET BY MOUTH EVERY DAY - HYDROCHLOROTHIAZIDE ORAL Take by mouth. 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 Additional history per EMR review. * Prostate Cancer Grade: Grade Group 4 ([place] score 4 + 4) * PSA: 0.97 ng/mL (01/2024) * Previous Therapy: Radiation and ADT EXAM CATEGORY: Subsequent treatment strategy. TECHNIQUE: Radiopharmaceutical was administered intravenously followed later on by PET imaging from the skull vertex to thighs. Free breathing, low dose CT of the same body region was acquired without IV contrast for attenuation correction and anatomic localization. Unenhanced imaging is limited for the evaluation of some pathology and the acquired CT was not designed to produce diagnostic CT scan quality. Physiologic/non-pathologic uptake in some body regions could confound or obscure some pathology. * CT Dose-Length Product (DLP): 235 mGy*cm * CT Dose Reduction Employed: Yes * Injection site: Left Forearm-Antecubital * Injected activity: 8.9 mCi * Uptake Time: 58 minutes * Radiopharmaceutical: F-18 PSMA (Posluma) COMPARISON: F-18 PSMA PET/CT 05/12/2023, 06/02/2022 CORRELATION: MRI 08/15/2022; CT 01/29/2020, 09/11/2015 RESULT: REFERENCES: Uptake by the injected radiopharmaceutical serves as a surrogate marker for prostate-specific membrane antigen (PSMA) expression. All reported standardized uptake values represent maximum SUV (SUVmax) per body weight, unless otherwise specified. SUV Reference Values: * Background Salivary Gland: SUVmax 22.0 * Blood Pool (Descending Aorta): SUVmax 1.6 * Background Liver: SUVmax 8.9 Localizer Images: No additional findings. HEAD AND NECK: Head: No radiotracer avid lesion or mass effect in the intracranial compartment. Aerodigestive Tract: No radiotracer avid lesion. Similar mucosal retentions cysts in the right maxillary sinus. Lymph Nodes: No radiotracer avid lymphadenopathy. Neck Soft Tissues: No radiotracer avid thyroid nodule. Surgical clips in the right neck. CHEST: Lungs and Pleura: No radiotracer avid mass, nodule, or consolidation. No pleural effusion. Emphysema. Few similar subcentimeter pulmonary nodules without increased uptake, for example: 0.5 cm left upper lobe (CT image 124). Note, PET is often not sensitive for lung nodules smaller than 8 mm. Lymph Nodes: No radiotracer avid lymphadenopathy. Mediastinum: No radiotracer avid mass. Small hiatal hernia. Cardiovascular: Blood pool activity. No pericardial effusion. Thoracic aortic and coronary artery calcifications. 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 Chest Wall: No radiotracer avid soft tissue lesion. ABDOMEN AND PELVIS: Hepatobiliary: Mildly heterogeneous background parenchymal activity without a focal radiotracer avid lesion. Stable being appearing subcentimeter right lobe lesion without increased radiotracer uptake (CT image 214). Cholelithiasis. Spleen: No radiotracer avid lesion. No splenomegaly. Pancreas: No radiotracer avid lesion. Adrenals: No radiotracer avid nodule. Urinary Tract: Physiologic radiotracer excretion in the urinary tract. No hydronephrosis. Photopenic presumed renal cyst(s). GI Tract: No radiotracer avid lesion. No bowel dilation. Colonic diverticulosis. Peritoneum: No radiotracer avid lesion. No ascites. Lymph Nodes: * Abdomen (including common iliac): No radiotracer avid lymphadenopathy. * Pelvis (below common iliac): No radiotracer avid intrapelvic lymphadenopathy. Stable fairly symmetric bilateral inguinal lymph nodes with similar low radiotracer uptake. For example: 1.0 cm right inguinal node (CT image 243; SUVmax 3.2); 1.0 cm left inguinal node (CT image 340; SUVmax 3.4). Vasculature: Blood pool activity. Vascular calcifications. 3.6 cm infrarenal abdominal aortic aneurysm. Prostate and Seminal Vesicles: Persistent radiotracer avid lesion centered in the right prostate spanning apex to base with extension across midline anteriorly (CT image 314; SUVmax 14.6). Lesion abuts the bladder neck. Pelvis Soft Tissues: No radiotracer avid lesion. MUSCULOSKELETAL: Bones: No radiotracer avid or destructive osseous lesion. Degenerative changes. Osteopenia. Soft Tissues: No radiotracer avid lesion. IMPRESSION: PROSTATE: * Similar PSMA expressing prostate lesion, likely local recurrence. LAM DISEASE: * No PSMA expressing intra-pelvic lymphadenopathy. * Stable bilateral inguinal lymph nodes with low PSMA expression that are favored to be reactive. METASTATIC DISEASE: * No PSMA expressing distant metastases. ADDITIONAL FINDINGS: * Stable small (less than 6 mm) pulmonary nodules that may be below resolution of PET. * Addition (more content not included)... Normal [facility] PET+CT Guidance for localiza tion of tumor of Whole body-- W [id number] Marisol 06-04-2024 IMPRESSION: PROSTATE: * Similar PSMA expressing prostate lesion, likely local recurrence. LAM DISEASE: * No PSMA expressing intra-pelvic lymphadenopathy. * Stable bilateral inguinal lymph nodes with low PSMA expression that are favored to be reactive. METASTATIC DISEASE: * No PSMA expressing distant metastases. ADDITIONAL FINDINGS: * Stable small (less than 6 mm) pulmonary nodules that may be below resolution of PET. * Additional stable chronic and non-urgent findings, as discussed. Transcribe Date/Time: Jun 04 2024 3:30P Dictated by: JOANIE DARDEN, DO This examination was interpreted and the report reviewed and electronically signed by: JOANIE DARDEN DO on Jun 04 2024 4:03PM EST Thank you for allowing us to participate in the care of your patient. Should there be any questions regarding this interpretation, please call [phone]. If you are unable to reach us at the number above, please feel free to contact [facility] at [phone]. DIVISION OF RADIOLOGY * * *Final Report* * * DATE OF EXAM: Jun 04 2024 1:14PM NRN [id number] - NM PET/CT PROSTATE WB / PROCEDURE REASON: Malignant neoplasm of prostate (HCC) * * * * Physician Interpretation * * * * RESULT: EXAMINATION: PROSTATE-SPECIFIC MEMBRANE ANTIGEN PET-CT CLINICAL HISTORY: History of prostate cancer with rising PSA being evaluated for recurrence. Additional history per EMR review. * Prostate Cancer Grade: Grade Group 4 (Kita score 4 + 4) * PSA: 0.97 ng/mL (01/2024) * Previous Therapy: Radiation and ADT EXAM CATEGORY: Subsequent treatment strategy. TECHNIQUE: Radiopharmaceutical was administered intravenously followed later on by PET imaging from the skull vertex to thighs. Free breathing, low dose CT of the same body region was acquired without IV contrast for attenuation correction and anatomic localization. Unenhanced imaging is limited for the evaluation of some pathology and the acquired CT was not designed to produce diagnostic CT scan quality. Physiologic/non-pathologic uptake in some body regions could confound or obscure some pathology. * CT Dose-Length Product (DLP): 235 mGy*cm * CT Dose Reduction Employed: Yes * Injection site: Left Forearm-Antecubital * Injected activity: 8.9 mCi * Uptake Time: 58 minutes * Radiopharmaceutical: F-18 PSMA (Posluma) COMPARISON: F-18 PSMA PET/CT 05/12/2023, 06/02/2022 CORRELATION: MRI 08/15/2022; CT 01/29/2020, 09/11/2015 RESULT: REFERENCES: Uptake by the injected radiopharmaceutical serves as a surrogate marker for prostate-specific membrane antigen (PSMA) expression. All reported standardized uptake values represent maximum SUV (SUVmax) per body weight, unless otherwise specified. SUV Reference Values: * Background Salivary Gland: SUVmax 22.0 * Blood Pool (Descending Aorta): SUVmax 1.6 * Background Liver: SUVmax 8.9 Localizer Images: No additional findings. HEAD AND NECK: Head: No radiotracer avid lesion or mass effect in the intracranial compartment. Aerodigestive Tract: No radiotracer avid lesion. Similar mucosal retentions cysts in the right maxillary sinus. Lymph Nodes: No radiotracer avid lymphadenopathy. Neck Soft Tissues: No radiotracer avid thyroid nodule. Surgical clips in the right neck. CHEST: Lungs & Pleura: No radiotracer avid mass, nodule, or consolidation. No pleural effusion. Emphysema. Few similar subcentimeter pulmonary nodules without increased uptake, for example: 0.5 cm left upper lobe (CT image 124). Note, PET is often not sensitive for lung nodules smaller than 8 mm. Lymph Nodes: No radiotracer avid lymphadenopathy. Mediastinum: No radiotracer avid mass. Small hiatal hernia. Cardiovascular: Blood pool activity. No pericardial effusion. Thoracic aortic and coronary artery calcifications. 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 Chest Wall: No radiotracer avid soft tissue lesion. ABDOMEN AND PELVIS: Hepatobiliary: Mildly heterogeneous background parenchymal activity without a focal radiotracer avid lesion. Stable being appearing subcentimeter right lobe lesion without increased radiotracer uptake (CT image 214). Cholelithiasis. Spleen: No radiotracer avid lesion. No splenomegaly. Pancreas: No radiotracer avid lesion. Adrenals: No radiotracer avid nodule. Urinary Tract: Physiologic radiotracer excretion in the urinary tract. No hydronephrosis. Photopenic presumed renal cyst(s). GI Tract: No radiotracer avid lesion. No bowel dilation. Colonic diverticulosis. Peritoneum: No radiotracer avid lesion. No ascites. Lymph Nodes: * Abdomen (including common iliac): No radiotracer avid lymphadenopathy. * Pelvis (below common iliac): No radiotracer avid intrapelvic lymphadenopathy. Stable fairly symmetric bilateral inguinal lymph nodes with similar low radiotracer uptake. For example: 1.0 cm right inguinal node (CT image 243; SUVmax 3.2); 1.0 cm left inguinal node (CT image 340; SUVmax 3.4). Vasculature: Blood pool activity. Vascular calcifications. 3.6 cm infrarenal abdominal aortic aneurysm. Prostate & Seminal Vesicles: Persistent radiotracer avid lesion centered in the right prostate spanning apex to base with extension across midline anteriorly (CT image 314; SUVmax 14.6). Lesion abuts the bladder neck. Pelvis Soft Tissues: No radiotracer avid lesion. MUSCULOSKELETAL: Bones: No radiotracer avid or destructive osseous lesion. Degenerative changes. Osteopenia. Soft Tissues: No radiotracer avid lesion. DIVISION OF RADIOLOGY Provider, [facility] - 06/04/2024 * * *Final Report* * * DATE OF EXAM: Jun 04 2024 1:14PM NRN 0093 - NM PET/CT PROSTATE WB / PROCEDURE REASON: Malignant neoplasm of prostate (HCC) * * * * Physician Interpretation * * * * RESULT: EXAMINATION: PROSTATE-SPECIFIC MEMBRANE ANTIGEN PET-CT CLINICAL HISTORY: History of prostate cancer with rising PSA being evaluated for recurrence. Additional history per EMR review. * Prostate Cancer Grade: Grade Group 4 (Kita score 4 + 4) * PSA: 0.97 ng/mL (01/2024) * Previous Therapy: Radiation and ADT EXAM CATEGORY: Subsequent treatment strategy. TECHNIQUE: Radiopharmaceutical was administered intravenously followed later on by PET imaging from the skull vertex to thighs. Free breathing, low dose CT of the same body region was acquired without IV contrast for attenuation correction and anatomic localization. Unenhanced imaging is limited for the evaluation of some pathology and the acquired CT was not designed to produce diagnostic CT scan quality. Physiologic/non-pathologic uptake in some body regions could confound or obscure some pathology. * CT Dose-Length Product (DLP): 235 mGy*cm * CT Dose Reduction Employed: Yes * Injection site: Left Forearm-Antecubital * Injected activity: 8.9 mCi * Uptake Time: 58 minutes * Radiopharmaceutical: F-18 PSMA (Posluma) COMPARISON: F-18 PSMA PET/CT 05/12/2023, 06/02/2022 CORRELATION: MRI 08/15/2022; CT 01/29/2020, 09/11/2015 RESULT: REFERENCES: Uptake by the injected radiopharmaceutical serves as a surrogate marker for prostate-specific membrane antigen (PSMA) expression. All reported standardized uptake values represent maximum SUV (SUVmax) per body weight, unless otherwise specified. SUV Reference Values: * Background Salivary Gland: SUVmax 22.0 * Blood Pool (Descending Aorta): SUVmax 1.6 * Background Liver: SUVmax 8.9 Localizer Images: No additional findings. HEAD AND NECK: Head: No radiotracer avid lesion or mass effect in the intracranial compartment. Aerodigestive Tract: No radiotracer avid lesion. Similar mucosal retentions cysts in the right maxillary sinus. Lymph Nodes: No radiotracer avid lymphadenopathy. Neck Soft Tissues: No radiotracer avid thyroid nodule. Surgical clips in the right neck. CHEST: Lungs & Pleura: No radiotracer avid mass, nodule, or consolidation. No pleural effusion. Emphysema. Few similar subcentimeter pulmonary nodules without increased uptake, for example: 0.5 cm left upper lobe (CT image 124). Note, PET is often not sensitive for lung nodules smaller than 8 mm. Lymph Nodes: No radiotracer avid lymphadenopathy. Mediastinum: No radiotracer avid mass. Small hiatal hernia. Cardiovascular: Blood pool activity. No pericardial effusion. Thoracic aortic and coronary artery calcifications. 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 Chest Wall: No radiotracer avid soft tissue lesion. ABDOMEN AND PELVIS: Hepatobiliary: Mildly heterogeneous background parenchymal activity without a focal radiotracer avid lesion. Stable being appearing subcentimeter right lobe lesion without increased radiotracer uptake (CT image 214). Cholelithiasis. Spleen: No radiotracer avid lesion. No splenomegaly. Pancreas: No radiotracer avid lesion. Adrenals: No radiotracer avid nodule. Urinary Tract: Physiologic radiotracer excretion in the urinary tract. No hydronephrosis. Photopenic presumed renal cyst(s). GI Tract: No radiotracer avid lesion. No bowel dilation. Colonic diverticulosis. Peritoneum: No radiotracer avid lesion. No ascites. Lymph Nodes: * Abdomen (including common iliac): No radiotracer avid lymphadenopathy. * Pelvis (below common iliac): No radiotracer avid intrapelvic lymphadenopathy. Stable fairly symmetric bilateral inguinal lymph nodes with similar low radiotracer uptake. For example: 1.0 cm right inguinal node (CT image 243; SUVmax 3.2); 1.0 cm left inguinal node (CT image 340; SUVmax 3.4). Vasculature: Blood pool activity. Vascular calcifications. 3.6 cm infrarenal abdominal aortic aneurysm. Prostate & Seminal Vesicles: Persistent radiotracer avid lesion centered in the right prostate spanning apex to base with extension across midline anteriorly (CT image 314; SUVmax 14.6). Lesion abuts the bladder neck. Pelvis Soft Tissues: No radiotracer avid lesion. MUSCULOSKELETAL: Bones: No radiotracer avid or destructive osseous lesion. Degenerative changes. Osteopenia. Soft Tissues: No radiotracer avid lesion. IMPRESSION IMPRESSION: PROSTATE: * Similar PSMA expressing prostate lesion, likely local recurrence. LAM DISEASE: * No PSMA expressing intra-pelvic lymphadenopathy. * Stable bilateral inguinal lymph nodes with low PSMA expression that are favored to be reactive. METASTATIC DISEASE: * (more content not included)... [facility] Radiology Study observation (narrative) [facility] PET+CT Guidance for localiza tion of tumor of Whole body-- W [id number] IVOrdered By: [facility] Provider on 06-04-2024 [facility] Ambulatory Visit Summaryon 0 05-22-2024 Ambulatory Visit Summary Ambulatory Visit Summary JM BARROW :1945 Visit Date:05/22/2024 Ambulatory Visit Instructions Your Care Team Attending Physician - Willard MONDRAGON MD Primary Care Physician - Arline Orosco MD Referring Physician - Arline Orosco MD This Is Your Medications List Contact prescribing physician if questions or concerns aspirin (aspirin 81 mg Chew Tab) bicalutamide (Casodex 50 mg Tab) cetirizine (cetirizine 10 mg Tab) denosumab (Prolia 60 mg/mL subcutaneous solution) docusate (Colace 100 mg Cap) fluticasone-vilanterol (Breo Ellipta 100 mcg-25 mcg inhalation powder) hydrochlorothiazide (hydrochlorothiazide 25 mg Tab) irbesartan (irbesartan 75 mg Tab) leuprolide (Lupron Depot 45 mg/6 months intramuscular injection, extended release) metoprolol (metoprolol succinate 25 mg ER Tab) multivitamin (Multi Vitamins oral tablet) simvastatin (simvastatin 10 mg Tab) tamsulosin (tamsulosin 0.4 mg Cap) tizanidine (tiZANidine 4 mg Tab) trazodone (traZODONE 50 mg Tab) Procedures Performed Colonoscopy (08/09/2017), Appendectomy, Biopsy of bladder, Biopsy of prostate, Cataract extraction, Colonoscopy, Cystoscopy, Cystoscopy, Cystoscopy and lithotripsy of calculus of bladder using laser, Excisional biopsy, History of hernia repair, Repair of left inguinal hernia, Tonsillectomy. Discharge Vitals Heart Rate (Peripheral) 62 Respiratory Rate 16 Blood Pressure 97/57 Height 177.8 cm Height 70 in Weight 77.7 kg Weight 171.299 lb BMI 24.58 Medications What How Much When Instructions Unchanged aspirin (aspirin 81 mg Chew Tab) 1 Tablets Chewed Every day Contact prescribing physician if questions or concerns Unchanged bicalutamide (Casodex 50 mg Tab) 1 Tablets By Mouth Every 24 hours Contact prescribing physician if questions or concerns Unchanged cetirizine (cetirizine 10 mg Tab) 1 Tablets By Mouth Every day Contact prescribing physician if questions or concerns Unchanged denosumab (Prolia 60 mg/ mL subcutaneous solution) 60 Milligram Subcutaneous Every 6 months Contact prescribing physician if questions or concerns Unchanged docusate (Colace 100 mg Cap) 1 Capsules By Mouth Every day as needed for for constipation Contact prescribing physician if questions or concerns Unchanged fluticasone-vilanterol (Breo Ellipta 100 mcg-25 mcg inhalation powder) 1 Puffs Inhalation Every day 30 dose unit Contact prescribing physician if questions or concerns Unchanged hydrochlorothiazide (hydrochlorothiazide 25 mg Tab) 1 Tablets By Mouth Every day Contact prescribing physician if questions or concerns Unchanged irbesartan (irbesartan 75 mg Tab) 1 Tablets By Mouth 2 times a day Contact prescribing physician if questions or concerns Unchanged leuprolide (Lupron Depot 45 mg/ 6 months intramuscular injection, extended release) 45 Milligram Intramuscular Every 6 months Contact prescribing physician if questions or concerns Unchanged metoprolol (metoprolol succinate 25 mg ER Tab) 2 Tablets By Mouth Every day Contact prescribing physician if questions or concerns Unchanged multivitamin (Multi Vitamins oral tablet) 1 Tablets By Mouth Every day Contact prescribing physician if questions or concerns Unchanged simvastatin (simvastatin 10 mg Tab) 1 Tablets By Mouth Once a day (in the evening) Contact prescribing physician if questions or concerns Unchanged tamsulosin (tamsulosin 0.4 mg Cap) 2 Capsules By Mouth Every day Contact prescribing physician if questions or concerns Unchanged tizanidine (tiZANidine 4 mg Tab) 1 Tablets By Mouth 3 times a day as needed for muscle spasm Contact prescribing physician if questions or concerns Unchanged trazodone (traZODONE 50 mg Tab) 1.5 Tablets By Mouth Once a day (at bedtime) Contact prescribing physician if questions or concerns Allergies chlorhexidine topical (Rash) Problems Ongoing - Any problem that you are currently receiving treatment for. AAA (abdominal aortic aneurysm), not a candidate for repair Bilateral carotid artery stenosis Chronic constipation Chronic obstructive pulmonary disease Chronic tension headaches Cyst of kidney Depression First degree atrioventricular block Hypercholesterolemia Hypertension Hypothyroidism Malignant neoplasm of urinary bladder Malignant tumor of prostate Mixed hyperlipidemia Osteopenia Overweight RBBB (right bundle branch block) Urethral stricture Patient Survey You may receive a survey via text or e-mail asking about your office visit. Please share your experience with us by completing your survey. We appreciate your feedback and thank you for choosing us for your care. [facility] Normal [facility] Comment on above: Order Comment: SEND OUT [facility] [place] Test Name: O P -PINK TOP - TEST CODE [id number] Result Comment: See report. Scanned copy available in EMR. PERFORMED BY: [place] [address] PATHOLOGIST SHOE REPAIRER HELPER ROSALIA NEELY M.D. Performed By: #### E NT BACT PANEL, [facility] #### [address] Stool Bacterial Panelon Campylobacter Negative Normal Negative [facility] Comment on above: Order Comment: JESSIE FU Result Comment: Camp ylobacter test includes C. jejuni and C. coli. Performed By: #### E NT BACT PANEL, [facility] #### [address] Salmonella Species Negative Normal Negative [facility] Comment on above: Order Comment: JESSIE FU Result Comment: Test ing performed by RT-PCR PERFORMED BY: [place] [address] PATHOLOGIST SHOE REPAIRER HELPER ROSALIA NEELY M.D. Performed By: #### E NT BACT PANEL, [facility] #### [address] Shiga Toxin (E coli O157+oth) Negative Normal Negative [facility] Comment on above: Order Comment: JESSIE FU Performed By: #### E NT BACT PANEL, [facility] #### [place] [id number] [facility] Shigella Species Negative Normal Negative [facility] Comment on above: Order Comment: JESSIE FU Result Comment: Shig joel sp. test includes Shigella species and Enteroinvasive E. coli (EIEC). Performed By: #### E NT BACT PANEL, [facility] #### [facility] [address] [place] [address] [facility] CNOVon 02-15-2024 CNOV Office Visit (RADTSA ) JM BARROW ([id number]) 1945 M Date Time Provider Department 02/15/24 2:00 PM Liv GUZMAN During your visit today, we recorded the following information about you: Temperature Pulse Respiration Blood pressure 97.8 degrees 51/minute 16/minute 131/77 Weight 78.4 kg Liv Guzman MD 02/22/2024 1:19 PM Signed Radiation [...] mg subcutan (more content not included)... Normal [facility] CNOVSPon 02-15-2024 OVSP Visit (SP) Office (H EMASA) JM BARROW ([id number]) 1945 M Date Time Provider Department 02/15/24 [...] Guzman, Dr. Leroy Shaw, Dr. Guzman, Dr. Gifofrd, Dr. James House Portions of this encounter note have been [...] use, ep (more content not included)... Normal [facility] ([id number]) 1945 M Date Time Provider Department 02/15/24 Liv GUZMAN During your visit today, we recorded the following information about you: Lam Mills 02/15/2024 2:46 PM Signed This form is used for MAIN CAMPUS APPOINTMENTS ONLY. Is this request for a [place] PET scan appointment? Yes: Transformation Manager: Lam Mills Requesting Person (Last Name, First Name): Fox Guzman Area Code + Phone/Pager: [phone] Who do we call to schedule this appointment? Other Contact: [facility] PET to be done in [place]. Route to [place] for scheduling Requesting Staff Fox Guzman Area Code + Phone/Pager: [phone] PET Orders (A delay in scheduling will [...] Send requests to P [facility]ORD [facility] Lam Mills 02/15/2024 2:48 PM Signed Please disregard this [...] Status:Closed by LAM MILLS on 02/15/24 Normal [facility] CBC W Auto Differential pane l (Bld)on 02-12-2024 Basophils (Bld) [#/Vol] 10*3/uL Normal <0.11 [facility] Comment on above: Order Comment: Speci men Type: BLOOD SPECIMENOrdering Facility: [facility] Address: [address] [place] [address] Performed By: #### 5 7021-8 ####[facility] LABCLIA [id number] [place] [address] Basophils/100 WBC (Bld) 0.3 % Normal [facility] Comment on above: Order Comment: Speci men Type: BLOOD SPECIMENOrdering Facility: [facility] Address: [address] [place] [address] Performed By: #### 5 7021-8 ####[facility] LABCLIA [id number] [place] [address] Differential cell count method Nom (Bld) Auto Normal [facility] Comment on above: Order Comment: Speci men Type: BLOOD SPECIMENOrdering Facility: [facility] Address: [address] [place] [address] Performed By: #### 5 7021-8 ####[facility] LABCLIA [id number] [place] [address] Eosinophils (Bld) [#/Vol] 0.41 10*3/uL Normal <0.46 [facility] Comment on above: Order Comment: Speci men Type: BLOOD SPECIMENOrdering Facility: [facility] Address: [address] [place] [address] Performed By: #### 5 7021-8 ####[facility] LABCLIA [id number] [place] [address] Eosinophils/100 WBC (Bld) 6.5 % Normal [facility] Comment on above: Order Comment: Speci men Type: BLOOD SPECIMENOrdering Facility: [facility] Address: [address] [place] [address] Performed By: #### 5 7021-8 ####[facility] LABCLIA [id number] [place] [address] Erythrocyte distribution width (RBC) [Ratio] 12.2 % Normal 11.5-15.0 [facility] Comment on above: Order Comment: Speci men Type: BLOOD SPECIMENOrdering Facility: [facility] Address: [address] [place] [address] Performed By: #### 5 7021-8 ####[facility] LABCLIA [id number] [place] [address] Hematocrit (Bld) [Volume fraction] 40.1 % Normal 39.0-51.0 [facility] Comment on above: Order Comment: Speci men Type: BLOOD SPECIMENOrdering Facility: [facility] Address: [address] [place] [address] Performed By: #### 5 7021-8 ####[facility] LABCLIA [id number] [place] [address] Hemoglobin (Bld) [Mass/Vol] 13.9 g/dL Normal 13.0-17.0 [facility] Comment on above: Order Comment: Speci men Type: BLOOD SPECIMENOrdering Facility: [facility] Address: [address] [place] [address] Performed By: #### 5 7021-8 ####[facility] LABCLIA [id number] [place] [address] Immature granulocytes (Bld) [#/Vol] 10*3/uL Normal <0.10 [facility] Comment on above: Order Comment: Speci men Type: BLOOD SPECIMENOrdering Facility: [facility] Address: [address] [place] [address] Performed By: #### 5 7021-8 ####[facility] LABCLIA [id number] [place] [address] Immature granulocytes/100 WBC (Bld) 0.3 % Normal [facility] Comment on above: Order Comment: Speci men Type: BLOOD SPECIMENOrdering Facility: [facility] Address: [address] [place] [address] Performed By: #### 5 7021-8 ####[facility] LABCLIA [id number] [place] [address] Lymphocytes (Bld) [#/Vol] 1.68 10*3/uL Normal 1.00-4.00 [facility] Comment on above: Order Comment: Speci men Type: BLOOD SPECIMENOrdering Facility: [facility] Address: [address] [place] [address] Performed By: #### 5 7021-8 ####[facility] LABCLIA [id number] [place] [address] Lymphocytes/100 WBC (Bld) 26.8 % Normal [facility] Comment on above: Order Comment: Speci men Type: BLOOD SPECIMENOrdering Facility: [facility] Address: [address] [place] [address] Performed By: #### 5 7021-8 ####[facility] LABCLIA [id number] [place] [address] MCH (RBC) [Entitic mass] 31.7 pg Normal 26.0-34.0 [facility] Comment on above: Order Comment: Speci men Type: BLOOD SPECIMENOrdering Facility: [facility] Address: [address] [place] [address] Performed By: #### 5 7021-8 ####[facility] LABCLIA [id number] [place] [address] MCHC (RBC) [Mass/Vol] 34.7 g/dL Normal 30.5-36.0 [facility] Comment on above: Order Comment: Speci men Type: BLOOD SPECIMENOrdering Facility: [facility] Address: [address] [place] [address] Performed By: #### 5 7021-8 ####[facility] LABCLIA [id number] [place] [address] MCV (RBC) [Entitic vol] 91.6 fL Normal 80.0-100.0 [facility] Comment on above: Order Comment: Speci men Type: BLOOD SPECIMENOrdering Facility: [facility] Address: [address] [place] [address] Performed By: #### 5 7021-8 ####[facility] LABCLIA [id number] [place] [address] Monocytes (Bld) [#/Vol] 0.62 10*3/uL Normal <0.87 [facility] Comment on above: Order Comment: Speci men Type: BLOOD SPECIMENOrdering Facility: [facility] Address: [address] [place] [address] Performed By: #### 5 7021-8 ####[facility] LABCLIA [id number] [place] [address] Monocytes/100 WBC (Bld) 9.9 % Normal [facility] Comment on above: Order Comment: Speci men Type: BLOOD SPECIMENOrdering Facility: [facility] Address: [address] [place] [address] Performed By: #### 5 7021-8 ####[facility] LABCLIA [id number] [place] [address] Neutrophils (Bld) [#/Vol] 3.51 10*3/uL Normal 1.45-7.50 [facility] Comment on above: Order Comment: Speci men Type: BLOOD SPECIMENOrdering Facility: [facility] Address: [address] [place] [address] Performed By: #### 5 7021-8 ####[facility] LABCLIA [id number] [place] [address] Neutrophils/100 WBC (Bld) 56.2 % Normal [facility] Comment on above: Order Comment: Speci men Type: BLOOD SPECIMENOrdering Facility: [facility] Address: [address] [place] [address] Performed By: #### 5 7021-8 ####[facility] LABCLIA [id number] [place] [address] Nucleated RBC (Bld) [#/Vol] 10*3/uL Normal <0.01 [facility] Comment on above: Order Comment: Speci men Type: BLOOD SPECIMENOrdering Facility: [facility] Address: [address] [place] [address] Performed By: #### 5 7021-8 ####[facility] LABCLIA [id number] [place] [address] Nucleated RBC/100 WBC (Bld) [Ratio] 0.0 /100 WBC Normal [facility] Comment on above: Order Comment: Speci men Type: BLOOD SPECIMENOrdering Facility: [facility] Address: [address] [place] [address] Performed By: #### 5 7021-8 ####[facility] LABCLIA [id number] [place] [address] Platelet mean volume (Bld) [Entitic vol] 9.2 fL Normal 9.0-12.7 [facility] Comment on above: Order Comment: Speci men Type: BLOOD SPECIMENOrdering Facility: [facility] Address: [address] [place] [address] Performed By: #### 5 7021-8 ####[facility] LABCLIA [id number] [place] [address] Platelets (Bld) [#/Vol] 185 10*3/uL Normal 150-400 [facility] Comment on above: Order Comment: Speci men Type: BLOOD SPECIMENOrdering Facility: [facility] Address: [address] [place] [address] Performed By: #### 5 7021-8 ####[facility] LABCLIA [id number] [place] [address] RBC (Bld) [#/Vol] 4.38 10*6/uL Normal 4.20-6.00 [facility] Comment on above: Order Comment: Speci men Type: BLOOD SPECIMENOrdering Facility: [facility] Address: [address] [place] [address] Performed By: #### 5 7021-8 ####[facility] LABCLIA [id number] [place] [address] WBC (Bld) [#/Vol] 6.26 10*3/uL Normal 3.70-11.00 [facility] Comment on above: Order Comment: Speci men Type: BLOOD SPECIMENOrdering Facility: [facility] Address: [address] [place] [address] Performed By: #### 5 7021-8 ####[facility] LABCLIA [id number] [place] [address] Comprehensive metabolic 2000 panelon 02-12-2024 Albumin [Mass/Vol] 4.4 g/dL Normal 3.9-4.9 [facility] Comment on above: Order Comment: Speci men Type: BLOOD SPECIMEN [facility] Address: [address] [place] [address] Performed By: #### 2 857-1 #### [facility] CLIA [id number] [address] [place], [place] [address] [address] [place] ALP [Catalytic activity/Vol] 52 U/L Normal 38-113 [facility] Comment on above: Order Comment: Speci men Type: BLOOD SPECIMEN [facility] Address: [address] [place] [address] Performed By: #### 2 857-1 #### [facility] CLIA [id number] [address] [place] [address] [place] ALT [Catalytic activity/Vol] 9 U/L Low 10-54 [facility] Comment on above: Order Comment: Speci men Type: BLOOD SPECIMEN [facility] Address: [address] [place] [address] Performed By: #### 2 857-1 #### [facility] CLIA [id number] [address] [place] [address] [place] Anion gap [Moles/Vol] 10 mmol/L Normal 8-15 [facility] Comment on above: Order Comment: Speci men Type: BLOOD SPECIMEN [facility] Address: [address] [place] [address] Performed By: #### 2 857-1 #### [facility] CLIA [id number] [address] [place] [address] [place] AST [Catalytic activity/Vol] 15 U/L Normal 14-40 [facility] Comment on above: Order Comment: Speci men Type: BLOOD SPECIMEN [facility] Address: [address] [place] [address] Performed By: #### 2 857-1 #### [facility] CLIA [id number] [address] [place] [address] [place] Bilirubin [Mass/Vol] 0.8 mg/dL Normal 0.2-1.3 [facility] Comment on above: Order Comment: Speci men Type: BLOOD SPECIMEN [facility] Address: [address] [place] [address] Performed By: #### 2 857-1 #### [facility] CLIA [id number] [address] [place] [address] [place] Calcium [Mass/Vol] 10.4 mg/dL High 8.5-10.2 [facility] Comment on above: Order Comment: Speci men Type: BLOOD SPECIMEN [facility] Address: [address] [place] [address] Performed By: #### 2 857-1 #### [facility] CLIA [id number] [address] [place] [address] [place] Chloride [Moles/Vol] 106 mmol/L Normal 98-107 [facility] Comment on above: Order Comment: Speci men Type: BLOOD SPECIMEN [facility] Address: [address] [place] [address] Performed By: #### 2 857-1 #### [facility] CLIA [id number] [address] [place] [address] [place] CO2 [Moles/Vol] 28 mmol/L Normal 22-30 [facility] Comment on above: Order Comment: Speci men Type: BLOOD SPECIMEN [facility] Address: [address] [place] [address] Performed By: #### 2 857-1 #### [facility] CLIA [id number] [address] [place] [address] [place] Creatinine [Mass/Vol] 1.04 mg/dL Normal 0.73-1.22 [facility] Comment on above: Order Comment: Speci men Type: BLOOD SPECIMEN [facility] Address: [address] [place] [address] Performed By: #### 2 857-1 #### [facility] CLIA [id number] [address] [place] [address] [place] Creatinine and Glomerular filtration rate.predicted panel (S/P/Bld) 74 mL/min/1.73m??? Normal >=60 [facility] Comment on above: Order Comment: Speci men Type: BLOOD SPECIMEN [facility] Address: [address] [place] [address] Result Comment: Jessica mated Glomerular Filtration Rate [...] reflect actual GFR. Performed By: #### 2 857-1 #### [facility] CLIA [id number] [address] [place] [address] [place] Glucose [Mass/Vol] 102 mg/dL High 74-99 [facility] Comment on above: Order Comment: Aroldo rahman Type: BLOOD SPECIMEN [facility] Address: [address] [place] [address] Result Comment: The [place] [employer] (ADA) provides guidance for cutoff [...] Standards of Medical Care in Diabetes 2016, [place] [employer]. Diabetes Care. 2016.39(Suppl 1). Performed By: #### 2 857-1 #### [facility] CLIA [id number] [address] [place] [address] [place] Potassium [Moles/Vol] 4.3 mmol/L Normal 3.7-5.1 [facility] Comment on above: Order Comment: Aroldo rahman Type: BLOOD SPECIMEN [facility] Address: [address] [place] [address] Performed By: #### 2 857-1 #### [facility] CLIA [id number] [address] [place] [address] [place] Protein [Mass/Vol] 7.3 g/dL Normal 6.3-8.0 [facility] Comment on above: Order Comment: Speci men Type: BLOOD SPECIMEN [facility] Address: [address] [place] [address] Performed By: #### 2 857-1 #### [facility] CLIA [id number] [address] [place] [address] [place] Sodium [Moles/Vol] 144 mmol/L Normal 136-144 [facility] Comment on above: Order Comment: Speci men Type: BLOOD SPECIMEN [facility] Address: [address] [place] [address] Performed By: #### 2 857-1 #### [facility] CLIA [id number] [address] [place] [address] [place] Urea nitrogen [Mass/Vol] 19 mg/dL Normal 9-24 [facility] Comment on above: Order Comment: Speci men Type: BLOOD SPECIMEN [facility] Address: [address] [place] [address] Performed By: #### 2 857-1 #### [facility] CLIA [id number] [address] [place] [address] [place] PSA SerPl-mCncon 02-12-2024 Prostate specific Ag [Mass/Vol] 0.97 ng/mL Normal <2.60 [facility] Comment on above: Order Comment: Speci men Type: BLOOD SPECIMEN [facility] Address: [address] [place] [address] Result Comment: Tota l PSA test methodology used is the Electrochemiluminescence Immunoassay by [employer]. Total PSA values by differing methodologies cannot be interchanged. Performed By: #### 2 857-1 #### [facility] CLIA [id number] [address] [place] [address] [place] PTH RELATED PEPTIDEon 2023 PTH RELATED PEPTIDE 2.9 pmol/L High 0.0-2.3 [facility] Comment on above: Order Comment: Aroldo josiah Type: BLOOD SPECIMEN [facility] Address: [address] [place] [address] Result Comment: INTE RPRETIVE INFORMATION: Parathyroid Hormone-Related Peptide This test was developed and its performance characteristics determined by [facility]. It has not been cleared or approved by the [place] Food and Drug Administration. This test was performed in a CLIA certified laboratory and is intended for clinical purposes. Performed By: [facility] [address] [place] [address] [employer] Engineer: Adi Neal MD, PhD CLIA Number: [id number] Performed By: #### 2 857-1 #### [facility] CLIA [id number] [address] [place] [address] [place] [facility] Parathyrin.intact [Mass/Vol] 51 pg/mL Normal 15-65 [facility] Comment on above: Order Comment: Speci josiah Type: BLOOD SPECIMENOrdering Facility: [facility] Address: [address] [place] [address] Performed By: #### 2 731-8 ####[facility] LABCLIA [id number] [place] [address] [place] DEXA SCAN CENTRAL SKELETALon 01-10-2024 DEXA SCAN [...] Bernardo MD on 01/10/2024 9:25 PM Normal [facility] CNOVSPon 12-20-2023 CNOVSP Visit (SP) Office (H EMASA) JM BARROW ([id number]) 1945 M Date Time Provider Department 12/20/23 2:00 PM ISADORA CARTY During your visit today, we recorded the following information about you: Temperature Pulse Respiration Blood pressure 97.2 degrees 69/minute 16/minute 135/74 Weight 80.2 kg Isadora Carty PA-C 12/20/2023 2:30 PM Signed PATIENT NAME: Jm Barrow DATE: 12/20/2023 PRIMARY CARE PHYSICIAN: Arline Orosco MD OTHER PHYSICIANS: Dr. Guzman, Dr. Leroy Shaw, Dr. Guzman, Dr. Gifford, Dr. James House Portions of this encounter note have been [...] INSERT LENS,EX; Bilateral Comment: Dr. Grimm - [place], [place] No date: TONSILLECTOMY HX FAMILY HISTORY: FAMILY [...] No Dr (more content not included)... Normal [facility] Cytologyon 12-19-2023 Cytology Normal [facility] Comment on above: Result Comment: [facility] [address] [place] [address] Cytology Consultation Patient Name:JM BARROW JR.:1945 (Age: 77)Gender:MTaken:12/19/2023eported:12/20/2023 13:07Physician(s):Leroy Shaw M.D. ([phone])Copy To: Rec. #:[id number]: #[id number] Final Cytologic Diagnosis Voided urine: Atypical urothelial cells present. [facility]/12/20/2023 Interpretation performed at [facility], [address] [place] [address], License number: [id number].Electronically Signed Out By Deandre Willett MD Clinical History History of urothelial cell carcinoma. Gross Description Received was 60 mL of yellow fluid labeled as [place], 49, the order states that this is a urine specimen .Preservative added. 30 mL used for Cytology. See UroVysion report. Source of Specimen Voided urine Non [employer] Fee Code(s): 1; 82446 Reference Lab Test IDon 08-0 UROVYSION FOR BLADDER CANCER SEE COMMENTS 12/26/2023 10:28 AM Normal [facility] Comment on above: Result Comment: NOTE [...] specific probe for 9p21 ([employer] [place], [place]). This test has been modified from the simulation software engineer's instructions. Its performance characteristics were determined by [facility] in a manner consistent with CLIA requirements. This test has not been cleared or approved by the U.S. Food and Drug Administration. Reason for Referral Evaluate for urothelial carcinoma. Specimen Varies Source Urine, NOS Released By Chong Booth M.D., Ph.D. Test Performed by: [place] [address] Web Site Administrator: Mely Amezquita Ph.D.; CLIA# [id number] Performed By: #### 3 0896-5 #### [facility] ([id number]) [address] [place] [address] Basic metabolic 2000 panelOr dered By: Agustin Acevedo on 12-14-2023 Anion gap [Moles/Vol] 10 mmol/L 8 - 15 mmol/L [facility] Calcium [Mass/Vol] 11.3 mg/dL High 8.5 - 10. 2 mg/dL [facility] Chloride [Moles/Vol] 104 mmol/L 98 - 107 mmol/L [facility] CO2 [Moles/Vol] 29 mmol/L 22 - 30 mmol/L [facility] Creatinine [Mass/Vol] 1.13 mg/dL 0.73 - 1.22 mg/dL [facility] GFR/1.73 sq M.predicted among non-blacks MDRD (S/P/Bld) [Vol rate/Area] 68 mL/min/{1.73_m2} - PINF [facility] Comment on above: Estimated Glomerular Filtration Rate [...] 144 mg/dL High 74 - 99 mg/dL [facility] Comment on above: The [place] Diab[employer] s Association (ADA) provides guidance for [...] Standards of Medical Care in Diabetes 2016, [place] [employer] Association. Diabetes Care. 2016.39(Suppl 1). Interpretation and review of laboratory results Abnormal [facility] Potassium [Moles/Vol] 3.9 mmol/L 3.7 - 5.1 mmol/L [facility] Sodium [Moles/Vol] 143 mmol/L 136 - 144 mmol/L [facility] Urea nitrogen [Mass/Vol] 27 mg/dL High 9 - 24 mg/dL [facility] Basic metabolic 2000 panelon 12-14-2023 Anion gap [Moles/Vol] 10 mmol/L Normal 8-15 [facility] Comment on above: Order Comment: Isabeli josiah Type: BLOOD SPECIMENOrdering Facility: [facility] Address: [address] [place] [address] Performed By: #### 2 4321-2 ####[facility] LABCLIA [id number] [place] [address] Calcium [Mass/Vol] 11.3 mg/dL High 8.5-10.2 [facility] Comment on above: Order Comment: Isabeli men Type: BLOOD SPECIMENOrdering Facility: [facility] Address: [address] [place] [address] Performed By: #### 2 4321-2 ####[facility] LABCLIA [id number] [place] [address] Chloride [Moles/Vol] 104 mmol/L Normal 98-107 [facility] Comment on above: Order Comment: Speci men Type: BLOOD SPECIMENOrdering Facility: [facility] Address: [address] [place] [address] Performed By: #### 2 4321-2 ####[facility] LABCLIA [id number] [place] [address] CO2 [Moles/Vol] 29 mmol/L Normal 22-30 [facility] Comment on above: Order Comment: Speci men Type: BLOOD SPECIMENOrdering Facility: [facility] Address: [address] [place] [address] Performed By: #### 2 4321-2 ####[facility] LABCLIA [id number] [place] [address] Creatinine [Mass/Vol] 1.13 mg/dL Normal 0.73-1.22 [facility] Comment on above: Order Comment: Speci men Type: BLOOD SPECIMENOrdering Facility: [facility] Address: [address] [place] [address] Performed By: #### 2 4321-2 ####[facility] LABCLIA [id number] [place] [address] Creatinine and Glomerular filtration rate.predicted panel (S/P/Bld) 68 mL/min/1.73m??? Normal >=60 [facility] Comment on above: Order Comment: Speci men Type: BLOOD SPECIMENOrdering Facility: [facility] Address: [address] [place] [address] Result Comment: Jessica mated Glomerular Filtration Rate [...] actual GFR. Performed By: #### 2 4321-2 ####[facility] LABCLIA [id number] [place] [address] Glucose [Mass/Vol] 144 mg/dL High 74-99 [facility] Comment on above: Order Comment: Aroldo rahman Type: BLOOD SPECIMENOrdering Facility: [facility] Address: [address] [id number] Result Comment: The [place] Diabetes Association (ADA) provides guidance for cutoff [...] Standards of Medical Care in Diabetes 2016, [place] Diabetes Association. Diabetes Care. 2016.39(Suppl 1). Performed By: #### 2 4321-2 ####[facility] LABCLIA [id number] [place] [address] Potassium [Moles/Vol] 3.9 mmol/L Normal 3.7-5.1 [facility] Comment on above: Order Comment: Aroldo rahman Type: BLOOD SPECIMENOrdering Facility: [facility] Address: [address] [place] [address] Performed By: #### 2 4321-2 ####[facility] LABCLIA [id number] [place] [address] Sodium [Moles/Vol] 143 mmol/L Normal 136-144 [facility] Comment on above: Order Comment: Isabeli men Type: BLOOD SPECIMENOrdering Facility: [facility] Address: [address] [place] [address] Performed By: #### 2 4321-2 ####[facility] LABCLIA [id number] [place] [address] Urea nitrogen [Mass/Vol] 27 mg/dL High 9-24 [facility] Comment on above: Order Comment: Speci men Type: BLOOD SPECIMENOrdering Facility: [facility] Address: [place] [address] Performed By: #### 2 4321-2 ####[facility] LABCLIA [id number] [place] [address] CBC W Auto Differential pane l (Bld)on 12-14-2023 Basophils (Bld) [#/Vol] 0.04 10*3/uL [facility] Basophils/100 WBC (Bld) 0.6 % [facility] Differential cell count method Nom (Bld) Auto [facility] Eosinophils (Bld) [#/Vol] 0.45 10*3/uL [facility] Eosinophils/100 WBC (Bld) 7.1 % [facility] Erythrocyte distribution width (RBC) [Ratio] 12.0 % 11.5 - 15.0 % [facility] Hematocrit (Bld) [Volume fraction] 39.6 % 39.0 - 51.0 % [facility] Hemoglobin (Bld) [Mass/Vol] 14.0 g/dL 13.0 - 17.0 g/dL [facility] Immature granulocytes (Bld) [#/Vol] [facility] Immature granulocytes/100 WBC (Bld) 0.3 % [facility] Lymphocytes (Bld) [#/Vol] 1.87 10*3/uL [facility] Lymphocytes/100 WBC (Bld) 29.5 % [facility] MCH (RBC) [Entitic mass] 32.7 pg 26.0 - 34.0 pg [facility] MCHC (RBC) [Mass/Vol] 35.4 g/dL 30.5 - 36.0 g/dL [facility] MCV (RBC) [Entitic vol] 92.5 fL 80.0 - 100.0 fL [facility] Monocytes (Bld) [#/Vol] 0.66 10*3/uL [facility] Monocytes/100 WBC (Bld) 10.4 % [facility] Neutrophils (Bld) [#/Vol] 3.30 10*3/uL [facility] Neutrophils/100 WBC (Bld) 52.1 % [facility] Nucleated RBC (Bld) [#/Vol] NINF [facility] Nucleated RBC/100 WBC (Bld) [Ratio] 0.0 % /100 WBC [facility] Platelet mean volume (Bld) [Entitic vol] 9.1 fL 9.0 - 12.7 fL [facility] Platelets (Bld) [#/Vol] 195 10*3/uL [facility] RBC (Bld) [#/Vol] 4.28 10*6/uL 4.20 - 6.0 0 m/uL [facility] WBC (Bld) [#/Vol] 6.34 10*3/uL [facility] Basophils (Bld) [#/Vol] 0.04 10*3/uL Normal <0.11 [facility] Comment on above: Order Comment: Speci men Type: BLOOD SPECIMEN [facility] Address: [address] [place] [address] Performed By: #### 2 857-1 #### [facility] CLIA [id number] [address] [place] [address] [place] Basophils/100 WBC (Bld) 0.6 % Normal [facility] Comment on above: Order Comment: Speci men Type: BLOOD SPECIMEN [facility] Address: [address] [place] [address] Performed By: #### 2 857-1 #### [facility] CLIA [id number] [address] [place] [address] [place] Differential cell count method Nom (Bld) Auto Normal [facility] Comment on above: Order Comment: Speci men Type: BLOOD SPECIMEN [facility] Address: [address] [place] [address] Performed By: #### 2 857-1 #### [facility] CLIA [id number] [address] [place] [address] [place] Eosinophils (Bld) [#/Vol] 0.45 10*3/uL Normal <0.46 [facility] Comment on above: Order Comment: Speci men Type: BLOOD SPECIMEN [facility] Address: [address] [place] [address] Performed By: #### 2 857-1 #### [facility] CLIA [id number] [address] [place] [address] [place] Eosinophils/100 WBC (Bld) 7.1 % Normal [facility] Comment on above: Order Comment: Speci men Type: BLOOD SPECIMEN [facility] Address: [address] [place] [address] Performed By: #### 2 857-1 #### [facility] CLIA [id number] [address] [place] [address] [place] Erythrocyte distribution width (RBC) [Ratio] 12.0 % Normal 11.5-15.0 [facility] Comment on above: Order Comment: Speci men Type: BLOOD SPECIMEN [facility] Address: [address] [place] [address] Performed By: #### 2 857-1 #### [facility] CLIA [id number] [address] [place] [address] [place] Hematocrit (Bld) [Volume fraction] 39.6 % Normal 39.0-51.0 [facility] Comment on above: Order Comment: Speci men Type: BLOOD SPECIMEN [facility] Address: [address] [place] [address] Performed By: #### 2 857-1 #### [facility] CLIA [id number] [address] [place] [address] [place] Hemoglobin (Bld) [Mass/Vol] 14.0 g/dL Normal 13.0-17.0 [facility] Comment on above: Order Comment: Speci men Type: BLOOD SPECIMEN [facility] Address: [address] [place] [address] Performed By: #### 2 857-1 #### [facility] CLIA [id number] [address] [place] [address] [place] Immature granulocytes (Bld) [#/Vol] 10*3/uL Normal <0.10 [facility] Comment on above: Order Comment: Speci men Type: BLOOD SPECIMEN [facility] Address: [address] [place] [address] Performed By: #### 2 857-1 #### [facility] CLIA [id number] [address] [place] [address] [place] Immature granulocytes/100 WBC (Bld) 0.3 % Normal [facility] Comment on above: Order Comment: Speci men Type: BLOOD SPECIMEN [facility] Address: [address] [place] [address] Performed By: #### 2 857-1 #### [facility] CLIA [id number] [address] [place] [address] [place] Lymphocytes (Bld) [#/Vol] 1.87 10*3/uL Normal 1.00-4.00 [facility] Comment on above: Order Comment: Speci men Type: BLOOD SPECIMEN [facility] Address: [address] [place] [address] Performed By: #### 2 857-1 #### [facility] CLIA [id number] [address] [place] [address] [place] Lymphocytes/100 WBC (Bld) 29.5 % Normal [facility] Comment on above: Order Comment: Speci men Type: BLOOD SPECIMEN [facility] Address: [address] [place] [address] Performed By: #### 2 857-1 #### [facility] CLIA [id number] [address] [place] [address] [place] MCH (RBC) [Entitic mass] 32.7 pg Normal 26.0-34.0 [facility] Comment on above: Order Comment: Speci men Type: BLOOD SPECIMEN [facility] Address: [address] [place] [address] Performed By: #### 2 857-1 #### [facility] CLIA [id number] [address] [place] [address] [place] MCHC (RBC) [Mass/Vol] 35.4 g/dL Normal 30.5-36.0 [facility] Comment on above: Order Comment: Speci men Type: BLOOD SPECIMEN [facility] Address: [address] [place] [address] Performed By: #### 2 857-1 #### [facility] CLIA [id number] [address] [place] [address] [place] MCV (RBC) [Entitic vol] 92.5 fL Normal 80.0-100.0 [facility] Comment on above: Order Comment: Speci men Type: BLOOD SPECIMEN [facility] Address: [address] [place] [address] Performed By: #### 2 857-1 #### [facility] CLIA [id number] [address] [place] [address] [place] Monocytes (Bld) [#/Vol] 0.66 10*3/uL Normal <0.87 [facility] Comment on above: Order Comment: Speci men Type: BLOOD SPECIMEN [facility] Address: [address] [place] [address] Performed By: #### 2 857-1 #### [facility] CLIA [id number] [address] [place] [address] [place] Monocytes/100 WBC (Bld) 10.4 % Normal [facility] Comment on above: Order Comment: Speci men Type: BLOOD SPECIMEN [facility] Address: [address] [place] [address] Performed By: #### 2 857-1 #### [facility] CLIA [id number] [address] [place] [address] [place] Neutrophils (Bld) [#/Vol] 3.30 10*3/uL Normal 1.45-7.50 [facility] Comment on above: Order Comment: Speci men Type: BLOOD SPECIMEN [facility] Address: [address] [place] [address] Performed By: #### 2 857-1 #### [facility] CLIA [id number] [address] [place] [address] [place] Neutrophils/100 WBC (Bld) 52.1 % Normal [facility] Comment on above: Order Comment: Speci men Type: BLOOD SPECIMEN [facility] Address: [address] [place] [address] Performed By: #### 2 857-1 #### [facility] CLIA [id number] [address] [place] [address] [place] Nucleated RBC (Bld) [#/Vol] 10*3/uL Normal <0.01 [facility] Comment on above: Order Comment: Speci men Type: BLOOD SPECIMEN [facility] Address: [address] [place] [address] Performed By: #### 2 857-1 #### [facility] CLIA [id number] [address] [place] [address] [place] Nucleated RBC/100 WBC (Bld) [Ratio] 0.0 /100 WBC Normal [facility] Comment on above: Order Comment: Speci men Type: BLOOD SPECIMEN [facility] Address: [address] [place] [address] Performed By: #### 2 857-1 #### [facility] CLIA [id number] [address] [place], [place] [address] [place] Platelet mean volume (Bld) [Entitic vol] 9.1 fL Normal 9.0-12.7 [facility] Comment on above: Order Comment: Speci men Type: BLOOD SPECIMEN [facility] Address: [address] [place] [address] Performed By: #### 2 857-1 #### [facility] CLIA [id number] [address] [place] [address] [place] Platelets (Bld) [#/Vol] 195 10*3/uL Normal 150-400 [facility] Comment on above: Order Comment: Speci men Type: BLOOD SPECIMEN [facility] Address: [address] [place] [address] Performed By: #### 2 857-1 #### [facility] CLIA [id number] [address] [place] [address] [place] RBC (Bld) [#/Vol] 4.28 10*6/uL Normal 4.20-6.00 [facility] Comment on above: Order Comment: Speci men Type: BLOOD SPECIMEN [facility] Address: [address] [place] [address] Performed By: #### 2 857-1 #### [facility] CLIA [id number] [address] [place] [address] [place] WBC (Bld) [#/Vol] 6.34 10*3/uL Normal 3.70-11.00 [facility] Comment on above: Order Comment: Speci men Type: BLOOD SPECIMEN [facility] Address: [address] [place] [address] Performed By: #### 2 857-1 #### [facility] CLIA [id number] [address] [place] [address] [place] PSA SerPl-mCncon 12-14-2023 Prostate specific Ag [Mass/Vol] 0.92 ng/mL Normal <2.60 [facility] Comment on above: Order Comment: Speci men Type: BLOOD SPECIMENOrdering Facility: [facility] Address: [address] [place] [address] Result Comment: Tota l PSA test methodology used is the Electrochemiluminescence Immunoassay by [employer]. Total PSA values by differing methodologies cannot be interchanged. Performed By: #### 2 857-1 ####[facility] LAB[facility]IA [id number] [facility] [id number] CNPNuha 12-13-2023 CNPN Telephone (HEMASA) JM BARROW ([id number]) 1945 M Date Time Provider Department 12/13/23 UMER DALE During your visit today, we recorded the following information about you: Umer Dale RN 12/13/2023 1:41 PM Signed Pt seevivi Muir next week for follow up. Would like to have his labs drawn before next week's appointment. Orders pended. Umer Dale RN Allergies As of Date: 12/13/2023 Noted Allergy Reaction CHLORHEXIDINE 05/21/2013 2 - Rash hibaclens [Other] 06/02/2011 2 - Rash Date Reviewed: 12/13/2023 Reviewed by: Isadora Carty PA-C - Fully Assessed Reason for Visit: Care Coordination [6021] Cmt: Labs Primary Visit Diagnosis:Prostate cancer (HCC) [C61] Order(s):COMPLETE BLOOD COUNT AND DIFFERENTIAL [SQCBCDIF] Order #: [id number] FUTURE BASIC METABOLIC PANEL [SQBMP] Order #: [id number] FUTURE PROSTATE-SPECIFIC ANTIGEN DIAGNOSTIC [SQPSA] Order #: [id number] FUTURE Prescriptions as of 12/15/2023 - bicalutamide [...] Status:Closed by UMER DALE on 12/15/23 Normal [facility] US carotid doppler BIon 07-0 US carotid doppler [facility] [address] [place] [address] Ultrasound Report Signed Patient: Jm Barrow JR MR#: [id number] : 1945 Acct:[id number] Age/Sex: 77 / M ADM Date: 11/14/23 Loc: [facility] Room: Type: [facility] CLI Attending Dr: Clarence Gregory MD Ordering Provider: [...] Clarence Gregory M.D.11/14/2023 3:23 PM Dictation Location: [place] [address] Tech: Florence Prince Transcribed By: KELLY 11/14/23 152 Dictated By: Clarence Gregoyr MD 11/14/23 152 Signed By: 11/14/23 152 Normal [facility] Crys 10-17-2023 CNPN Telephone (HEMASA) JM BARROW ([id number]) 1945 M Date Time Provider Department 10/17/23 [...] Status:Closed by DANIEL BENÍTEZ on 10/17/23 Normal [facility] Basic metabolic 2000 panelon 10-16-2023 Anion gap [Moles/Vol] 12 mmol/L Normal 9-18 [facility] Comment on above: Order Comment: Speci men Type: BLOOD SPECIMEN [facility] Address: [address] [place] [address] Performed By: #### 2 857-1 #### [facility] CLIA [id number] [address] [place] [address] [place] [address] [place] Calcium [Mass/Vol] 11.3 mg/dL High 8.5-10.2 [facility] Comment on above: Order Comment: Speci men Type: BLOOD SPECIMEN [facility] Address: [address] [place] [address] Performed By: #### 2 857-1 #### [facility] CLIA [id number] [address] [place] [address] [place] Chloride [Moles/Vol] 104 mmol/L Normal 97-105 [facility] Comment on above: Order Comment: Speci men Type: BLOOD SPECIMEN [facility] Address: [address] [place] [address] Performed By: #### 2 857-1 #### [facility] CLIA [id number] [address] [place] [address] [place] CO2 [Moles/Vol] 30 mmol/L Normal 22-30 [facility] Comment on above: Order Comment: Speci men Type: BLOOD SPECIMEN [facility] Address: [address] [place] [address] Performed By: #### 2 857-1 #### [facility] CLIA [id number] [address] [place] [address] [place] Creatinine [Mass/Vol] 1.12 mg/dL Normal 0.73-1.22 [facility] Comment on above: Order Comment: Speci men Type: BLOOD SPECIMEN [facility] Address: [address] [place] [address] Performed By: #### 2 857-1 #### [facility] CLIA [id number] [address] [place] [address] [place] Creatinine and Glomerular filtration rate.predicted panel (S/P/Bld) 69 mL/min/1.73m??? Normal >=60 [facility] Comment on above: Order Comment: Speci men Type: BLOOD SPECIMEN Ordering Facility: [facility] Address: [address] [place] [address] Result Comment: Jessica mated Glomerular Filtration Rate [...] reflect actual GFR. Performed By: #### 2 857-1 #### [facility] CLIA [id number] [address] [place] [address] [place] Glucose [Mass/Vol] 127 mg/dL High 74-99 [facility] Comment on above: Order Comment: Aroldo rahman Type: BLOOD SPECIMEN Ordering Facility: [facility] Address: [address] [place] [address] Result Comment: The [place] [employer] (ADA) provides guidance for cutoff [...] Standards of Medical Care in Diabetes 2016, [place] [employer]. Diabetes Care. 2016.39(Suppl 1). Performed By: #### 2 857-1 #### [facility] CLIA [id number] [address] [place] [address] [place] Potassium [Moles/Vol] 3.4 mmol/L Low 3.7-5.1 [facility] Comment on above: Order Comment: Aroldo rahman Type: BLOOD SPECIMEN Ordering Facility: [facility] Address: [address] [place] [address] Performed By: #### 2 857-1 #### [facility] CLIA [id number] [address] [place] [address] [place] Sodium [Moles/Vol] 146 mmol/L High 136-144 [facility] Comment on above: Order Comment: Speci men Type: BLOOD SPECIMEN Ordering Facility: [facility] Address: [address] [place] [address] Performed By: #### 2 857-1 #### [facility] CLIA [id number] [address] [place] [address] [place] Urea nitrogen [Mass/Vol] 33 mg/dL High 9-24 [facility] Comment on above: Order Comment: Speci men Type: BLOOD SPECIMEN Ordering Facility: [facility] Address: [address] [place] [address] Performed By: #### 2 857-1 #### [facility] CLIA [id number] [address] [place] [address] [place] CBC W Auto Differential pane l (Bld)on 10-16-2023 Basophils (Bld) [#/Vol] 10*3/uL Normal <0.11 [facility] Comment on above: Order Comment: Speci men Type: BLOOD SPECIMEN Ordering Facility: [facility] Address: [address] [place] [address] Performed By: #### 2 857-1 #### [facility] CLIA [id number] [address] [place] [address] [place] Basophils/100 WBC (Bld) 0.1 % Normal [facility] Comment on above: Order Comment: Speci men Type: BLOOD SPECIMEN Ordering Facility: [facility] Address: [address] [place] [address] Performed By: #### 2 857-1 #### [facility] CLIA [id number] [address] [place] [address] [place] Differential cell count method Nom (Bld) Auto Normal [facility] Comment on above: Order Comment: Speci men Type: BLOOD SPECIMEN Ordering Facility: [facility] Address: [address] [place] [address] Performed By: #### 2 857-1 #### [facility] CLIA [id number] [address] [place] [address] [place] Eosinophils (Bld) [#/Vol] 0.04 10*3/uL Normal <0.46 [facility] Comment on above: Order Comment: Speci men Type: BLOOD SPECIMEN Ordering Facility: [facility] Address: [address] [place] [address] Performed By: #### 2 857-1 #### [facility] CLIA [id number] [address] [place] [address] [place] Eosinophils/100 WBC (Bld) 0.4 % Normal [facility] Comment on above: Order Comment: Speci men Type: BLOOD SPECIMEN Ordering Facility: [facility] Address: [address] [place] [address] Performed By: #### 2 857-1 #### [facility] CLIA [id number] [address] [place] [address] [place] Erythrocyte distribution width (RBC) [Ratio] 12.4 % Normal 11.5-15.0 [facility] Comment on above: Order Comment: Speci men Type: BLOOD SPECIMEN Ordering Facility: [facility] Address: [address] [place] [address] Performed By: #### 2 857-1 #### [facility] CLIA [id number] [address] [place] [address] [place] Hematocrit (Bld) [Volume fraction] 43.2 % Normal 39.0-51.0 [facility] Comment on above: Order Comment: Speci men Type: BLOOD SPECIMEN Ordering Facility: [facility] Address: [address] [place] [address] Performed By: #### 2 857-1 #### [facility] CLIA [id number] [address] [place] [address] [place] Hemoglobin (Bld) [Mass/Vol] 15.0 g/dL Normal 13.0-17.0 [facility] Comment on above: Order Comment: Speci men Type: BLOOD SPECIMEN Ordering Facility: [facility] Address: [address] [place] [address] Performed By: #### 2 857-1 #### [facility] CLIA [id number] [address] [place] [address] [place] Immature granulocytes (Bld) [#/Vol] 0.06 10*3/uL Normal <0.10 [facility] Comment on above: Order Comment: Speci men Type: BLOOD SPECIMEN Ordering Facility: [facility] Address: [address] [place] [address] Performed By: #### 2 857-1 #### [facility] CLIA [id number] [address] [place] [address] [place] Immature granulocytes/100 WBC (Bld) 0.6 % Normal [facility] Comment on above: Order Comment: Speci men Type: BLOOD SPECIMEN Ordering Facility: [facility] Address: [address] [place] [address] Performed By: #### 2 857-1 #### [facility] CLIA [id number] [address] [place] [address] [place] Lymphocytes (Bld) [#/Vol] 2.48 10*3/uL Normal 1.00-4.00 [facility] Comment on above: Order Comment: Speci men Type: BLOOD SPECIMEN Ordering Facility: [facility] Address: [address] [place] [address] Performed By: #### 2 857-1 #### [facility] CLIA [id number] [address] [place] [address] [place] Lymphocytes/100 WBC (Bld) 25.3 % Normal [facility] Comment on above: Order Comment: Speci men Type: BLOOD SPECIMEN Ordering Facility: [facility] Address: [address] [place] [address] Performed By: #### 2 857-1 #### [facility] CLIA [id number] [address] [place] [address] [place] MCH (RBC) [Entitic mass] 31.6 pg Normal 26.0-34.0 [facility] Comment on above: Order Comment: Speci men Type: BLOOD SPECIMEN Ordering Facility: [facility] Address: [address] [place] [address] Performed By: #### 2 857-1 #### [facility] CLIA [id number] [address] [place] [address] [place] MCHC (RBC) [Mass/Vol] 34.7 g/dL Normal 30.5-36.0 [facility] Comment on above: Order Comment: Speci men Type: BLOOD SPECIMEN Ordering Facility: [facility] Address: [address] [place] [address] Performed By: #### 2 857-1 #### [facility] CLIA [id number] [address] [place] [address] [place] MCV (RBC) [Entitic vol] 90.9 fL Normal 80.0-100.0 [facility] Comment on above: Order Comment: Speci men Type: BLOOD SPECIMEN Ordering Facility: [facility] Address: [address] [place] [address] Performed By: #### 2 857-1 #### [facility] CLIA [id number] [address] [place] [address] [place] Monocytes (Bld) [#/Vol] 0.70 10*3/uL Normal <0.87 [facility] Comment on above: Order Comment: Speci men Type: BLOOD SPECIMEN Ordering Facility: [facility] Address: [address] [place] [address] Performed By: #### 2 857-1 #### [facility] CLIA [id number] [address] [place] [address] [place] Monocytes/100 WBC (Bld) 7.1 % Normal [facility] Comment on above: Order Comment: Speci men Type: BLOOD SPECIMEN Ordering Facility: [facility] Address: [address] [place] [address] Performed By: #### 2 857-1 #### [facility] CLIA [id number] [address] [place] [address] [place] Neutrophils (Bld) [#/Vol] 6.53 10*3/uL Normal 1.45-7.50 [facility] Comment on above: Order Comment: Speci men Type: BLOOD SPECIMEN Ordering Facility: [facility] Address: [address] [place] [address] Performed By: #### 2 857-1 #### [facility] CLIA [id number] [address] [place] [address] [place] Neutrophils/100 WBC (Bld) 66.5 % Normal [facility] Comment on above: Order Comment: Speci men Type: BLOOD SPECIMEN Ordering Facility: [facility] Address: [address] [place] [address] Performed By: #### 2 857-1 #### [facility] CLIA [id number] [address] [place] [address] [place] Nucleated RBC (Bld) [#/Vol] 10*3/uL Normal <0.01 [facility] Comment on above: Order Comment: Speci men Type: BLOOD SPECIMEN Ordering Facility: [facility] Address: [address] [place] [address] Performed By: #### 2 857-1 #### [facility] CLIA [id number] [address] [place] [address] [place] Nucleated RBC/100 WBC (Bld) [Ratio] 0.0 /100 WBC Normal [facility] Comment on above: Order Comment: Speci men Type: BLOOD SPECIMEN Ordering Facility: [facility] Address: [address] [place] [address] Performed By: #### 2 857-1 #### [facility] CLIA [id number] [address] [place] [address] [place] Platelet mean volume (Bld) [Entitic vol] 9.3 fL Normal 9.0-12.7 [facility] Comment on above: Order Comment: Speci men Type: BLOOD SPECIMEN Ordering Facility: [facility] Address: [address] [place] [address] Performed By: #### 2 857-1 #### [facility] CLIA [id number] [address] [place] [address] [place] Platelets (Bld) [#/Vol] 197 10*3/uL Normal 150-400 [facility] Comment on above: Order Comment: Speci men Type: BLOOD SPECIMEN Ordering Facility: [facility] Address: [address] [place] [address] Performed By: #### 2 857-1 #### [facility] CLIA [id number] [address] [place] [address] [place] RBC (Bld) [#/Vol] 4.75 10*6/uL Normal 4.20-6.00 [facility] Comment on above: Order Comment: Speci men Type: BLOOD SPECIMEN Ordering Facility: [facility] Address: [address] [place] [address] Performed By: #### 2 857-1 #### [facility] CLIA [id number] [address] [place] [address] [place] WBC (Bld) [#/Vol] 9.82 10*3/uL Normal 3.70-11.00 [facility] Comment on above: Order Comment: Speci men Type: BLOOD SPECIMEN Ordering Facility: [facility] Address: [address] [place] [address] Performed By: #### 2 857-1 #### [facility] CLIA [id number] [address] [place] [address] [place] PSA SerPl-mCncon 10-16-2023 Prostate specific Ag [Mass/Vol] 0.94 ng/mL Normal <2.60 [facility] Comment on above: Order Comment: Speci men Type: BLOOD SPECIMEN Ordering Facility: [facility] Address: [address] [place] [address] Result Comment: Tota l PSA test methodology used is the Electrochemiluminescence Immunoassay by [employer]. Total PSA values by differing methodologies cannot be interchanged. Performed By: #### 2 857-1 #### [facility] CLIA [id number] [address] [place] [address] [place] CNOVon 08-17-2023 CNOV Office Visit (RADTSA ) JM BARROW ([id number]) 1945 M Date Time Provider Department 08/17/23 11:30 AM Liv GUZMAN During your visit today, we recorded [...] enteric coated (more content not included)... Normal [facility] CNOVSPon 08-17-2023 OVS Visit (SP) Office (H EMASA) JM BARROW ([id number]) 1945 M Date Time Provider Department 08/17/23 [...] Shaw, Dr. Guzman, Dr. Gifford, Dr. James House Portions of this encounter note have been [...] CATARACT, INSERT LENS,EX Bilateral 06/2019 Dr. Grimm [facility] [place] TONSILLECTOMY HX FAMILY HISTORY: FAMILY HISTORY Problem Relation Age of Onset Colon Cancer Mother GI Mother Diabetes Mother Cancer Father Pancreatic or Liver Diabetes Father SOCIAL HISTORY: Social History Tobacco Use Smoking status: Every Day Packs/day: 1.00 Years: 40.00 Additional pack years: 0.00 Total pack years: 40.00 Types: Cigarettes Passive exposur (more content not included)... Normal [facility] Basic metabolic 2000 panelon 08-15-2023 Anion gap [Moles/Vol] 11 mmol/L Normal 9-18 [facility] Comment on above: Order Comment: Speci men Type: BLOOD SPECIMEN Ordering Facility: [facility] Address: [address] [place] [address] Performed By: #### 2 857-1 #### [facility] CLIA [id number] [address] [place] [address] [id number] [address] [place] Calcium [Mass/Vol] 11.3 mg/dL High 8.5-10.2 [facility] Comment on above: Order Comment: Speci men Type: BLOOD SPECIMEN Ordering Facility: [facility] Address: [address] [place] [address] Performed By: #### 2 857-1 #### [facility] CLIA [id number] [address] [place] [address] [place] Chloride [Moles/Vol] 105 mmol/L Normal 97-105 [facility] Comment on above: Order Comment: Speci men Type: BLOOD SPECIMEN Ordering Facility: [facility] Address: [address] [place] [address] Performed By: #### 2 857-1 #### [facility] CLIA [id number] [address] [place] [address] [place] CO2 [Moles/Vol] 30 mmol/L Normal 22-30 [facility] Comment on above: Order Comment: Speci men Type: BLOOD SPECIMEN Ordering Facility: [facility] Address: [address] [place] [address] Performed By: #### 2 857-1 #### [facility] CLIA [id number] [address] [place] [address] [place] Creatinine [Mass/Vol] 1.02 mg/dL Normal 0.73-1.22 [facility] Comment on above: Order Comment: Speci men Type: BLOOD SPECIMEN Ordering Facility: [facility] Address: [address] [place] [address] Performed By: #### 2 857-1 #### [facility] CLIA [id number] [address] [place] [address] [place] Creatinine and Glomerular filtration rate.predicted panel (S/P/Bld) 77 mL/min/1.73m??? Normal >=60 [facility] Comment on above: Order Comment: Speci men Type: BLOOD SPECIMEN Ordering Facility: [facility] Address: [address] [place] [address] Result Comment: Jessica mated Glomerular Filtration Rate [...] reflect actual GFR. Performed By: #### 2 857-1 #### [facility] CLIA [id number] [address] [place] [address] [place] Glucose [Mass/Vol] 103 mg/dL High 74-99 [facility] Comment on above: Order Comment: Aroldo men Type: BLOOD SPECIMEN Ordering Facility: [facility] Address: [address] [place] [address] Result Comment: The [place] [employer] (ADA) provides guidance for cutoff [...] Standards of Medical Care in Diabetes 2016, [place] [employer]. Diabetes Care. 2016.39(Suppl 1). Performed By: #### 2 857-1 #### [facility] CLIA [id number] [address] [place] [address] [place] Potassium [Moles/Vol] 4.5 mmol/L Normal 3.7-5.1 [facility] Comment on above: Order Comment: Aroldo rahman Type: BLOOD SPECIMEN Ordering Facility: [facility] Address: [address] [place] [address] Performed By: #### 2 857-1 #### [facility] CLIA [id number] [address] [place] [address] [place] Sodium [Moles/Vol] 146 mmol/L High 136-144 [facility] Comment on above: Order Comment: Speci men Type: BLOOD SPECIMEN Ordering Facility: [facility] Address: [address] [place] [address] Performed By: #### 2 857-1 #### [facility] CLIA [id number] [address] [place] [address] [place] Urea nitrogen [Mass/Vol] 25 mg/dL High 9-24 [facility] Comment on above: Order Comment: Speci men Type: BLOOD SPECIMEN Ordering Facility: [facility] Address: [address] [place] [address] Performed By: #### 2 857-1 #### [facility] CLIA [id number] [address] [place] [address] [place] CBC W Auto Differential pane l (Bld)on 08-15-2023 Basophils (Bld) [#/Vol] 0.05 10*3/uL Normal <0.11 [facility] Comment on above: Order Comment: Speci men Type: BLOOD SPECIMEN Ordering Facility: [facility] Address: [address] [place] [address] Performed By: #### 2 857-1 #### [facility] CLIA [id number] [address] [place] [address] [place] Basophils/100 WBC (Bld) 0.5 % Normal [facility] Comment on above: Order Comment: Speci men Type: BLOOD SPECIMEN Ordering Facility: [facility] Address: [address] [place] [address] Performed By: #### 2 857-1 #### [facility] CLIA [id number] [address] [place] [address] [place] Differential cell count method Nom (Bld) Auto Normal [facility] Comment on above: Order Comment: Speci men Type: BLOOD SPECIMEN Ordering Facility: [facility] Address: [address] [place] [address] Performed By: #### 2 857-1 #### [facility] CLIA [id number] [address] [place] [address] [place] Eosinophils (Bld) [#/Vol] 0.59 10*3/uL High <0.46 [facility] Comment on above: Order Comment: Speci men Type: BLOOD SPECIMEN Ordering Facility: [facility] Address: [address] [place] [address] Performed By: #### 2 857-1 #### [facility] CLIA [id number] [address] [place] [address] [place] Eosinophils/100 WBC (Bld) 6.3 % Normal [facility] Comment on above: Order Comment: Speci men Type: BLOOD SPECIMEN Ordering Facility: [facility] Address: [address] [place] [address] Performed By: #### 2 857-1 #### [facility] CLIA [id number] [address] [place] [address] [place] Erythrocyte distribution width (RBC) [Ratio] 12.6 % Normal 11.5-15.0 [facility] Comment on above: Order Comment: Speci men Type: BLOOD SPECIMEN Ordering Facility: [facility] Address: [address] [place] [address] Performed By: #### 2 857-1 #### [facility] CLIA [id number] [address] [place] [address] [place] Hematocrit (Bld) [Volume fraction] 43.1 % Normal 39.0-51.0 [facility] Comment on above: Order Comment: Speci men Type: BLOOD SPECIMEN Ordering Facility: [facility] Address: [address] [place] [address] Performed By: #### 2 857-1 #### [facility] CLIA [id number] [address] [place] [address] [place] Hemoglobin (Bld) [Mass/Vol] 14.8 g/dL Normal 13.0-17.0 [facility] Comment on above: Order Comment: Speci men Type: BLOOD SPECIMEN Ordering Facility: [facility] Address: [address] [place] [address] Performed By: #### 2 857-1 #### [facility] CLIA [id number] [address] [place] [address] [place] Immature granulocytes (Bld) [#/Vol] 0.03 10*3/uL Normal <0.10 [facility] Comment on above: Order Comment: Speci men Type: BLOOD SPECIMEN Ordering Facility: [facility] Address: [address] [place] [address] Performed By: #### 2 857-1 #### [facility] CLIA [id number] [address] [place] [address] [place] Immature granulocytes/100 WBC (Bld) 0.3 % Normal [facility] Comment on above: Order Comment: Speci men Type: BLOOD SPECIMEN Ordering Facility: [facility] Address: [address] [place] [address] Performed By: #### 2 857-1 #### [facility] CLIA [id number] [address] [place] [address] [place] Lymphocytes (Bld) [#/Vol] 2.33 10*3/uL Normal 1.00-4.00 [facility] Comment on above: Order Comment: Speci men Type: BLOOD SPECIMEN Ordering Facility: [facility] Address: [address] [place] [address] Performed By: #### 2 857-1 #### [facility] CLIA [id number] [address] [place] [address] [place] Lymphocytes/100 WBC (Bld) 24.9 % Normal [facility] Comment on above: Order Comment: Speci men Type: BLOOD SPECIMEN Ordering Facility: [facility] Address: [address] [place] [address] Performed By: #### 2 857-1 #### [facility] CLIA [id number] [address] [place] [address] [place] MCH (RBC) [Entitic mass] 31.4 pg Normal 26.0-34.0 [facility] Comment on above: Order Comment: Speci men Type: BLOOD SPECIMEN Ordering Facility: [facility] Address: [address] [place] [address] Performed By: #### 2 857-1 #### [facility] CLIA [id number] [address] [place] [address] [place] MCHC (RBC) [Mass/Vol] 34.3 g/dL Normal 30.5-36.0 [facility] Comment on above: Order Comment: Speci men Type: BLOOD SPECIMEN Ordering Facility: [facility] Address: [address] [place] [address] Performed By: #### 2 857-1 #### [facility] CLIA [id number] [address] [place] [address] [place] MCV (RBC) [Entitic vol] 91.5 fL Normal 80.0-100.0 [facility] Comment on above: Order Comment: Speci men Type: BLOOD SPECIMEN Ordering Facility: [facility] Address: [address] [place] [address] Performed By: #### 2 857-1 #### [facility] CLIA [id number] [address] [place] [address] [place] Monocytes (Bld) [#/Vol] 0.90 10*3/uL High <0.87 [facility] Comment on above: Order Comment: Speci men Type: BLOOD SPECIMEN Ordering Facility: [facility] Address: [address] [place] [address] Performed By: #### 2 857-1 #### [facility] CLIA [id number] [address] [place] [address] [place] Monocytes/100 WBC (Bld) 9.6 % Normal [facility] Comment on above: Order Comment: Speci men Type: BLOOD SPECIMEN Ordering Facility: [facility] Address: [address] [place] [address] Performed By: #### 2 857-1 #### [facility] CLIA [id number] [address] [place] [address] [place] [place] Neutrophils (Bld) [#/Vol] 5.45 10*3/uL Normal 1.45-7.50 [facility] Comment on above: Order Comment: Speci men Type: BLOOD SPECIMEN Ordering Facility: [facility] Address: [address] [place] [address] Performed By: #### 2 857-1 #### [facility] CLIA [id number] [address] [place] [address] [place] Neutrophils/100 WBC (Bld) 58.4 % Normal [facility] Comment on above: Order Comment: Speci men Type: BLOOD SPECIMEN Ordering Facility: [facility] Address: [address] [place] [address] Performed By: #### 2 857-1 #### [facility] CLIA [id number] [address] [place] [address] [place] Nucleated RBC (Bld) [#/Vol] 10*3/uL Normal <0.01 [facility] Comment on above: Order Comment: Speci men Type: BLOOD SPECIMEN Ordering Facility: [facility] Address: [address] [place] [address] Performed By: #### 2 857-1 #### [facility] CLIA [id number] [address] [place] [address] [place] Nucleated RBC/100 WBC (Bld) [Ratio] 0.0 /100 WBC Normal [facility] Comment on above: Order Comment: Speci men Type: BLOOD SPECIMEN Ordering Facility: [facility] Address: [address] [place] [address] Performed By: #### 2 857-1 #### [facility] CLIA [id number] [address] [place] [address] [place] Platelet mean volume (Bld) [Entitic vol] 9.2 fL Normal 9.0-12.7 [facility] Comment on above: Order Comment: Speci men Type: BLOOD SPECIMEN Ordering Facility: [facility] Address: [address] [place] [address] Performed By: #### 2 857-1 #### [facility] CLIA [id number] [address] [place] [address] [place] Platelets (Bld) [#/Vol] 204 10*3/uL Normal 150-400 [facility] Comment on above: Order Comment: Speci men Type: BLOOD SPECIMEN Ordering Facility: [facility] Address: [address] [place] [address] Performed By: #### 2 857-1 #### [facility] CLIA [id number] [address] [place] [address] [place] RBC (Bld) [#/Vol] 4.71 10*6/uL Normal 4.20-6.00 [facility] Comment on above: Order Comment: Speci men Type: BLOOD SPECIMEN Ordering Facility: [facility] Address: [address] [place] [address] Performed By: #### 2 857-1 #### [facility] CLIA [id number] [address] [place] [address] [place] WBC (Bld) [#/Vol] 9.35 10*3/uL Normal 3.70-11.00 [facility] Comment on above: Order Comment: Speci men Type: BLOOD SPECIMEN Ordering Facility: [facility] Address: [address] [place] [address] Performed By: #### 2 857-1 #### [facility] CLIA [id number] [address] [place] [address] [place] PSA SerPl-mCncon 08-15-2023 Prostate specific Ag [Mass/Vol] 0.72 ng/mL Normal <2.60 [facility] Comment on above: Order Comment: Speci men Type: BLOOD SPECIMEN Ordering Facility: [facility] Address: [address] [place] [address] Result Comment: Tota l PSA test methodology used is the Electrochemiluminescence Immunoassay by [employer]. Total PSA values by differing methodologies cannot be interchanged. Performed By: #### 2 857-1 #### [facility] CLIA [id number] [address] [place] [address] [place] Crys 08-07-2023 ELSAN Telephone (HEMASA) JM BARROW ([id number]) 1945 Date Time Provider Department 08/07/23 JOSE FRANCISCO [...] Rash Date Reviewed: 07/21/2023 Reviewed by: Sarika Dixon OA - Fully Assessed Reason for Visit: Lab Orders [0948] Primary Visit Diagnosis:Prostate cancer (HCC) [C61] Order(s):CBC + DIFF [SQCBCDIF] Order #: [id number] FUTURE BASIC METABOLIC PNL [SQBMP] Order #: [id number] FUTURE PSA/PROSTSPECAG DIAG [SQPSA] Order #: [id number] FUTURE Prescriptions as of 08/07/2023 - acyclovir [...] Status:Closed by JOSE FRANCISCO BROUSSARD on 08/07/23 [facility]23 Cytology Normal [facility] Comment on above: Result Comment: [facility] [address] [place] [address] Cytology Consultation Patient Name:JM BARROW JR.:1945 (Age: 77)Gender:MTaken:07/04/2023eported:07/05/2023 16:40Physician(s):Leroy Shaw M.D. ([phone])Copy To: Rec. #:[id number]: #[id number] Final Cytologic Diagnosis Voided urine: Negative for high-grade urothelial cell carcinoma. ao/07/05/2023 Interpretation performed at [facility], [address] [place] [address], License number: [id number].Electronically Signed Out By Tony Sanchez MD Clinical History Malignant neoplasm of urinary bladder ([facility]) C67.9. Cancer Gross Description Received was 30mL of cloudy yellow fluid unfixed labeled as [place], Voided urine . 15mL used for Cytology. See UroVysion report. Source of Specimen Voided urine Non [employer] Fee Code(s): 1; 14421 Reference Lab Test IDon 06-16 UROVYSION FOR BLADDER CANCER SEE COMMENTS 07/12/2023 01:08 PM Normal [facility] Comment on above: Result Comment: NOTE [...] a locus specific probe for 9p21 ([employer] [place], [place]). This test has been modified from the simulation software engineer's instructions. Its performance characteristics were determined by [facility] in a manner consistent with CLIA requirements. This test has not been cleared or approved by the U.S. Food and Drug Administration. Reason for Referral Evaluate for urothelial carcinoma. Specimen Varies Source Urine, NOS Released By Willard Evans M.D. Test Performed by: [place] [address] Web Site Administrator: Baldo Hawkins M.D. Ph.D.; CLIA# [id number] Performed By: #### 3 0896-5 #### [facility] ([id number]) [address] [place] [address], FIRST [address]OVSPon 06-26-2023 OVS Visit (SP) Office (H EMA) JM BARROW ([id number]) 1945 M Date Time Provider Department 06/26/23 [...] Shaw, Dr. Guzman, Dr. Gifford, Dr. James House Portions of this encounter note have been [...] CATARACT, INSERT LENS,EX Bilateral 06/2019 Dr. Grimm [facility] [place] TONSILLECTOMY HX FAMILY HISTORY: FAMILY HISTORY [...] intolerance, urinary (more content not included)... Normal [facility] CBC W Auto Differential pane l (Bld)on 06-23-2023 Basophils (Bld) [#/Vol] 0.06 10*3/uL Normal <0.11 [facility] Comment on above: Order Comment: Speci men Type: BLOOD SPECIMENOrdering Facility: [facility] Address: [address] [place] [address] Performed By: #### 5 7021-8 ####[facility] [id number] [place] [address] Basophils/100 WBC (Bld) 0.9 % Normal [facility] Comment on above: Order Comment: Speci men Type: BLOOD SPECIMENOrdering Facility: [facility] Address: [address] [place] [address] Performed By: #### 5 7021-8 ####[facility] [id number] [place] [address] Differential cell count method Nom (Bld) Auto Normal [facility] Comment on above: Order Comment: Speci men Type: BLOOD SPECIMENOrdering Facility: [facility] Address: [address] [place] [address] Performed By: #### 5 7021-8 ####[facility] [id number] [place] [address] Eosinophils (Bld) [#/Vol] 0.54 10*3/uL High <0.46 [facility] Comment on above: Order Comment: Speci men Type: BLOOD SPECIMENOrdering Facility: [facility] Address: [address] [place] [address] Performed By: #### 5 7021-8 ####[facility] [id number] [place] [address] Eosinophils/100 WBC (Bld) 8.2 % Normal [facility] Comment on above: Order Comment: Speci men Type: BLOOD SPECIMENOrdering Facility: [facility] Address: [address] [place] [address] Performed By: #### 5 7021-8 ####[facility] [id number] [place] [address] Erythrocyte distribution width (RBC) [Ratio] 12.6 % Normal 11.5-15.0 [facility] Comment on above: Order Comment: Speci men Type: BLOOD SPECIMENOrdering Facility: [facility] Address: [address] [place] [address] Performed By: #### 5 7021-8 ####[facility] [id number] [place] [address] Hematocrit (Bld) [Volume fraction] 44.4 % Normal 39.0-51.0 [facility] Comment on above: Order Comment: Speci men Type: BLOOD SPECIMENOrdering Facility: [facility] Address: [address] [place] [address] Performed By: #### 5 7021-8 ####[facility] [id number] [place] [address] Hemoglobin (Bld) [Mass/Vol] 14.9 g/dL Normal 13.0-17.0 [facility] Comment on above: Order Comment: Speci men Type: BLOOD SPECIMENOrdering Facility: [facility] Address: [address] [place] [address] Performed By: #### 5 7021-8 ####[facility] [id number] [place] [address] Immature granulocytes (Bld) [#/Vol] 10*3/uL Normal <0.10 [facility] Comment on above: Order Comment: Speci men Type: BLOOD SPECIMENOrdering Facility: [facility] Address: [address] [place] [address] Performed By: #### 5 7021-8 ####[facility] [id number] [place] [address] Immature granulocytes/100 WBC (Bld) 0.2 % Normal [facility] Comment on above: Order Comment: Speci men Type: BLOOD SPECIMENOrdering Facility: [facility] Address: [address] [place] [address] Performed By: #### 5 7021-8 ####[facility] [id number] [place] [address] Lymphocytes (Bld) [#/Vol] 1.81 10*3/uL Normal 1.00-4.00 [facility] Comment on above: Order Comment: Speci men Type: BLOOD SPECIMENOrdering Facility: [facility] Address: [address] [place] [address] Performed By: #### 5 7021-8 ####[facility] [id number] [place] [address] Lymphocytes/100 WBC (Bld) 27.5 % Normal [facility] Comment on above: Order Comment: Speci men Type: BLOOD SPECIMENOrdering Facility: [facility] Address: [address] [place] [address] Performed By: #### 5 7021-8 ####[facility] [id number] [place] [address] MCH (RBC) [Entitic mass] 30.8 pg Normal 26.0-34.0 [facility] Comment on above: Order Comment: Speci men Type: BLOOD SPECIMENOrdering Facility: [facility] Address: [address] [place] [address] Performed By: #### 5 7021-8 ####[facility] [id number] [place] [address] MCHC (RBC) [Mass/Vol] 33.6 g/dL Normal 30.5-36.0 [facility] Comment on above: Order Comment: Speci men Type: BLOOD SPECIMENOrdering Facility: [facility] Address: [address] [place] [address] Performed By: #### 5 7021-8 ####[facility] [id number] [place] [address] MCV (RBC) [Entitic vol] 91.9 fL Normal 80.0-100.0 [facility] Comment on above: Order Comment: Speci men Type: BLOOD SPECIMENOrdering Facility: [facility] Address: [address] [place] [address] Performed By: #### 5 7021-8 ####[facility] [id number] [place] [address] Monocytes (Bld) [#/Vol] 0.50 10*3/uL Normal <0.87 [facility] Comment on above: Order Comment: Speci men Type: BLOOD SPECIMENOrdering Facility: [facility] Address: [address] [place] [address] Performed By: #### 5 7021-8 ####[facility] [id number] [place] [address] Monocytes/100 WBC (Bld) 7.6 % Normal [facility] Comment on above: Order Comment: Speci men Type: BLOOD SPECIMENOrdering Facility: [facility] Address: [address] [place] [address] Performed By: #### 5 7021-8 ####[facility] [id number] [place] [address] Neutrophils (Bld) [#/Vol] 3.66 10*3/uL Normal 1.45-7.50 [facility] Comment on above: Order Comment: Speci men Type: BLOOD SPECIMENOrdering Facility: [facility] Address: [address] [place] [address] Performed By: #### 5 7021-8 ####[facility] [id number] [place] [address] Neutrophils/100 WBC (Bld) 55.6 % Normal [facility] Comment on above: Order Comment: Speci men Type: BLOOD SPECIMENOrdering Facility: [facility] Address: [address] [place] [address] Performed By: #### 5 7021-8 ####[facility] [id number] [place] [address] Nucleated RBC (Bld) [#/Vol] 10*3/uL Normal <0.01 [facility] Comment on above: Order Comment: Speci men Type: BLOOD SPECIMENOrdering Facility: [facility] Address: [address] [place] [address] Performed By: #### 5 7021-8 ####[facility] [id number] [place] [address] Nucleated RBC/100 WBC (Bld) [Ratio] 0.0 /100 WBC Normal [facility] Comment on above: Order Comment: Speci men Type: BLOOD SPECIMENOrdering Facility: [facility] Address: [address] [place] [address] Performed By: #### 5 7021-8 ####[facility] [id number] [place] [address] Platelet mean volume (Bld) [Entitic vol] 9.5 fL Normal 9.0-12.7 [facility] Comment on above: Order Comment: Speci men Type: BLOOD SPECIMENOrdering Facility: [facility] Address: [address] [place] [address] Performed By: #### 5 7021-8 ####[facility] [id number] [place] [address] Platelets (Bld) [#/Vol] 222 10*3/uL Normal 150-400 [facility] Comment on above: Order Comment: Speci men Type: BLOOD SPECIMENOrdering Facility: [facility] Address: [address] [place] [address] Performed By: #### 5 7021-8 ####[facility] [id number] [place] [address] RBC (Bld) [#/Vol] 4.83 10*6/uL Normal 4.20-6.00 [facility] Comment on above: Order Comment: Speci men Type: BLOOD SPECIMENOrdering Facility: [facility] Address: [address] [place] [address] Performed By: #### 5 7021-8 ####[facility] [id number] [place] [address] WBC (Bld) [#/Vol] 6.58 10*3/uL Normal 3.70-11.00 [facility] Comment on above: Order Comment: Speci men Type: BLOOD SPECIMENOrdering Facility: [facility] Address: [address] [place] [address] Performed By: #### 5 7021-8 ####[facility]IA [id number] [place] [address] Comprehensive metabolic 2000 panelon 06-23-2023 Albumin [Mass/Vol] 4.2 g/dL Normal 3.9-4.9 [facility] Comment on above: Order Comment: Speci men Type: BLOOD SPECIMENOrdering Facility: [facility] Address: [address] [place] [address] Performed By: #### 2 4323-8 ####[facility] [id number] [place] [address] ALP [Catalytic activity/Vol] 58 U/L Normal 38-113 [facility] Comment on above: Order Comment: Speci men Type: BLOOD SPECIMENOrdering Facility: [facility] Address: [address] [place] [address] Performed By: #### 2 4323-8 ####[facility] [id number] [place] [address] ALT [Catalytic activity/Vol] 10 U/L Normal 10-54 [facility] Comment on above: Order Comment: Speci men Type: BLOOD SPECIMENOrdering Facility: [facility] Address: [address] [place] [address] Performed By: #### 2 4323-8 ####[facility] [id number] [place] [address] Anion gap [Moles/Vol] 11 mmol/L Normal 9-18 [facility] Comment on above: Order Comment: Speci men Type: BLOOD SPECIMENOrdering Facility: [facility] Address: [address] [place] [address] Performed By: #### 2 4323-8 ####[facility] [id number] [place] [address] AST [Catalytic activity/Vol] 17 U/L Normal 14-40 [facility] Comment on above: Order Comment: Speci men Type: BLOOD SPECIMENOrdering Facility: [facility] Address: [address] [place] [address] Performed By: #### 2 4323-8 ####[facility] [id number] [place] [address] Bilirubin [Mass/Vol] 0.7 mg/dL Normal 0.2-1.3 [facility] Comment on above: Order Comment: Speci men Type: BLOOD SPECIMENOrdering Facility: [facility] Address: [address] [place] [address] Performed By: #### 2 4323-8 ####[facility] [id number] [place] [address] Calcium [Mass/Vol] 11.2 mg/dL High 8.5-10.2 [facility] Comment on above: Order Comment: Speci men Type: BLOOD SPECIMENOrdering Facility: [facility] Address: [address] [place] [address] Performed By: #### 2 4323-8 ####[facility] [id number] [place] [address] Chloride [Moles/Vol] 101 mmol/L Normal 97-105 [facility] Comment on above: Order Comment: Speci men Type: BLOOD SPECIMENOrdering Facility: [facility] Address: [address] [place] [address] Performed By: #### 2 4323-8 ####[facility] [id number] [place] [address] CO2 [Moles/Vol] 31 mmol/L High 22-30 [facility] Comment on above: Order Comment: Speci men Type: BLOOD SPECIMENOrdering Facility: [facility] Address: [address] [place] [address] Performed By: #### 2 4323-8 ####[facility] [id number] [place] [address] Creatinine [Mass/Vol] 1.06 mg/dL Normal 0.73-1.22 [facility] Comment on above: Order Comment: Speci men Type: BLOOD SPECIMENOrdering Facility: [facility] Address: [address] [place] [address] Performed By: #### 2 4323-8 ####[facility] [id number] [place] [address] Creatinine and Glomerular filtration rate.predicted panel (S/P/Bld) 73 mL/min/1.73m??? Normal >=60 [facility] Comment on above: Order Comment: Speci men Type: BLOOD SPECIMENOrdering Facility: [facility] Address: [address] [place] [address] Result Comment: Jessica mated Glomerular Filtration Rate [...] actual GFR. Performed By: #### 2 4323-8 ####[facility] [id number] [place] [address] Glucose [Mass/Vol] 99 mg/dL Normal 74-99 [facility] Comment on above: Order Comment: Speci men Type: BLOOD SPECIMENOrdering Facility: [facility] Address: [address] [place] [address] Result Comment: The [place] [employer] Association (ADA) provides guidance for cutoff [...] Standards of Medical Care in Diabetes 2016, [place] [employer]. Diabetes Care. 2016.39(Suppl 1). Performed By: #### 2 4323-8 ####[facility] [id number] [place] [address] Potassium [Moles/Vol] 3.5 mmol/L Low 3.7-5.1 [facility] Comment on above: Order Comment: Speci men Type: BLOOD SPECIMENOrdering Facility: [facility] Address: [address] [place] [address] Performed By: #### 2 4323-8 ####[facility]IA [id number] [place] [address] Protein [Mass/Vol] 7.2 g/dL Normal 6.3-8.0 [facility] Comment on above: Order Comment: Speci men Type: BLOOD SPECIMENOrdering Facility: [facility] Address: [address] [place] [address] Performed By: #### 2 4323-8 ####[facility]IA [id number] [place] [address] Sodium [Moles/Vol] 143 mmol/L Normal 136-144 [facility] Comment on above: Order Comment: Speci men Type: BLOOD SPECIMENOrdering Facility: [facility] Address: [address] [place] [address] Performed By: #### 2 4323-8 ####[facility]IA [id number] [place] [address] Urea nitrogen [Mass/Vol] 26 mg/dL High 9-24 [facility] Comment on above: Order Comment: Speci men Type: BLOOD SPECIMENOrdering Facility: [facility] Address: [address] [place] [address] Performed By: #### 2 4323-8 ####[facility]IA [id number] [place] [address] PSA SerPl-ncon 06-23-2023 Prostate specific Ag [Mass/Vol] 0.84 ng/mL Normal <2.60 [facility] Comment on above: Order Comment: Speci men Type: BLOOD SPECIMENOrdering Facility: [facility] Address: [address] [place] [address] Result Comment: Tota l PSA test methodology used is the Electrochemiluminescence Immunoassay by [employer]. Total PSA values by differing methodologies cannot be interchanged. Performed By: #### 2 857-1 ####[facility]IA [id number] [place] [id number] [place] PET+CT Guidance for localiza tion of tumor [...] May 13 2023 9:24P Dictated by: PIPO REGALADO, DO This examination was interpreted and the report reviewed and electronically signed by: PIPO REGALADO DO on May 13 2023 10:13PM EST Thank you for allowing us to participate in the care of your patient. Should there be any questions regarding this interpretation, please call [phone]. If you are unable to reach us at the number above, please feel free to contact [facility] at [phone]. DIVISION OF RADIOLOGY * * *Final Report* [...] and pelvis 07/09/2013 TECHNIQUE: 10.8 mCi of 06S-[id number]. The PET imaging was obtained between skull [...] in the spine. DIVISION OF RADIOLOGY Provider, [facility] - 05/13/2023 * * *Final Report* * [...] and pelvis 07/09/2013 TECHNIQUE: 10.8 mCi of 10N-[id number]-[id number]. The PET imaging was obtained between skull [...] any questions regarding this interpretation, please call [phone]. If you are unable to reach us at the number above, please feel free to contact [facility]iology at [phone]. [facility] PET+CT Guidance for localiza tion of tumor of Whole body-- W 18F-FDG IVOrdered By: [facility] Provider on 05-13-2023 [facility] PET+CT Guidance for localiza tion of tumor of Whole body-- W 18F-FDG Marisol 05-12-2023 Radiology Study observation (narrative) [facility] 25(OH)D3 SerPl-mCncon 2022 25-hydroxyvitamin D3 [Mass/Vol] 63.9 ng/mL Normal 31.0-80.0 [facility] Comment on above: Order Comment: Aroldo rahman Type: BLOOD SPECIMEN [facility] Address: [address] [place] [address] Result Comment: Clas sification of 25 [place] Vitamin D status: Deficiency/Insufficiency: < or = 30 ng/ml. Sufficiency/Optimal Levels: 31-80 ng/mL Toxicity: > 100 ng/mL. Test performed by chemiluminescent immunoassay. Performed By: #### 1 989-3 #### [facility] CLIA [id number] [address] [place] [address] [address] [place] HbA1c (Bld)on 02-15-2023 Average glucose Estimated from glycated hemoglobin (Bld) [Mass/Vol] 105 mg/dL Normal [facility] Comment on above: Order Comment: Aroldo rahman Type: BLOOD SPECIMEN [facility] Address: [address] [place] [address] Result Comment: eAG: (Estimated average glucose) is a calculated value from HgbA1c and is distribution sales representative of the average blood glucose level in the last 2-3 month period. Performed By: #### 5 5454-3 #### [facility] CLIA [id number] [address] [place] [address] [place] HbA1c (Bld) [Mass fraction] 5.3 % Normal 4.3-5.6 [facility] Comment on above: Order Comment: Speci men Type: BLOOD SPECIMEN Ordering Facility: [facility] Address: [address] [place] [address] Result Comment: Amer [place] Diabetes Association guidelines indicate that patients with HgbA1c in the range 5.7-6.4% are at increased risk for development of diabetes, and intervention by lifestyle modification may be beneficial. HgbA1c greater or equal to 6.5% is considered diagnostic of diabetes. Performed By: #### 5 5454-3 #### [facility] CLIA [id number] [address] [place] [address] IMMUNOFIXATION SCREEN, SERUM on 02-15-2023 MPA RESULT No M protein is identified. Normal No M protein is identified. [facility] Comment on above: Order Comment: Speci men Type: BLOOD SPECIMEN Ordering Facility: [facility] Address: [address] [place] [address] Performed By: #### I FESC #### [facility] CLIA [id number] [address] [place] [address] OF [place] STAFF REVIEW (MPA) Reviewed by Martin charles MD, Ph.D ([id number]) Normal [facility] Comment on above: Order Comment: Speci men Type: BLOOD SPECIMEN Ordering Facility: [facility] Address: [address] [place] [address] Performed By: #### I FESC #### [facility] CLIA [id number] [address] [place] [address] [place] IMMUNOGLOBULINS GAMon 2022 IgA [Mass/Vol] 281 mg/dL Normal 70-400 [facility] Comment on above: Order Comment: Speci men Type: BLOOD SPECIMEN Ordering Facility: [facility] Address: [address] [place] [address] Performed By: #### S ERIMM #### [facility] CLIA [id number] [address] [place] [address] [place] IgG [Mass/Vol] 955 mg/dL Normal 700-1600 [facility] Comment on above: Order Comment: Speci men Type: BLOOD SPECIMEN Ordering Facility: [facility] Address: [address] [place] [address] Performed By: #### S ERIMM #### [facility] CLIA [id number] [address] [place] [address] [place] IgM [Mass/Vol] 90 mg/dL Normal 40-230 [facility] Comment on above: Order Comment: Speci men Type: BLOOD SPECIMEN Ordering Facility: [facility] Address: [address] [place] [address] Performed By: #### S ERIMM #### [facility] CLIA [id number] [address] [place] [address] [place] KAPPA/AREVALO,FREE,SERon 2022 Immunoglobulin light chains.kappa.free (S) [Mass/Vol] 41.1 mg/L High 3.3-19.4 [facility] Comment on above: Order Comment: Speci men Type: BLOOD SPECIMEN Ordering Facility: [facility] Address: [address] [place] [address] Result Comment: Rare ly, increased serum free light chains levels may not be detected or accurately quantified due to prozone phenomenon or in high viscosity samples using this immunoturbidimetric assay. Correlation with other laboratory results and clinical findings is recommended. The [place] Free Light Chain was performed using the Binding Site Optilite immunoturbidimetric method. Result obtained with different assay methods or kits cannot be used interchangeably. Performed By: #### K LFRS #### [facility] CLIA [id number] [address] [place] [address] [place] Immunoglobulin light chains.kappa/Immun oglobulin light chains.lambda (S) [Mass ratio] 2.00 High 0.26-1.65 [facility] Comment on above: Order Comment: Speci men Type: BLOOD SPECIMEN Ordering Facility: [facility] Address: [address] [place] [address] Performed By: #### K LFRS #### [facility] CLIA [id number] [address] [place] [address] [place] Immunoglobulin light chains.lambda.free [Mass/Vol] 20.6 mg/L Normal 5.7-26.3 [facility] Comment on above: Order Comment: Speci men Type: BLOOD SPECIMEN Ordering Facility: [facility] Address: [address] [place] [address] Result Comment: Rare ly, increased serum free [...] interchangeably. Performed By: #### K LFRS #### [facility] CLIA [id number] [facility] [place] [address] [place] MONOCLONAL PROT UR W/INTERPo n 02-15-2023 STAFF REVIEW ([facility]) Reviewed by Martin Rojo MD, Ph.D ([id number]) Normal [facility] Comment on above: Order Comment: Speci men Type: URINE SPECIMEN Ordering Facility: [facility] Address: [address] [place] [address] Performed By: #### U RMPA #### [facility] CLIA [id number] [address] [place] [address] [place] UMPA RESULT No M protein is identified. Normal No M protein is identified. [facility] Comment on above: Order Comment: Speci men Type: URINE SPECIMEN Ordering Facility: [facility] Address: [address] [place] [address] Performed By: #### U RMPA #### [facility] CLIA [id number] [address] [place] [address] [place] Methylmalonate SerPl-sCncon 02-15-2023 Methylmalonate [Moles/Vol] 0.14 umol/L Normal <=0.40 [facility] Comment on above: Order Comment: Speci men Type: BLOOD SPECIMEN Ordering Facility: [facility] Address: [address] [place] [address] Result Comment: This test was developed and its performance characteristics determined by [facility] ([facility]). It has not been cleared or approved by the FDA. [facility] is regulated under CLIA as qualified to perform high-complexity testing. This test is used for clinical purposes. It should not be regarded as investigational or for research. Performed By: #### 1 3964-2 #### [facility] CLIA [id number] [address] [place] [address] [place] Vit B12 SerPl-mCncon 023 Cobalamin (Vitamin B12) [Mass/Vol] 1889 pg/mL High 232-1245 [facility] Comment on above: Order Comment: Speci men Type: BLOOD SPECIMEN Ordering Facility: [facility] Address: [address] [place], [place] [id number] Performed By: #### 2 132-9 #### [facility] CLIA [id number] [address] [address] [place] URINALYSIS, REFLEX MICROSCOP ICon 12-07-2022 Bacteria LM.HPF (Urine sed) [#/Area] Few Abnormal None Seen /HPF [facility] Bilirubin Ql (U) Negative Negative [facility] Clarity (Unsp spec) Cloudy Abnormal Clear [facility] Color (U) Yellow Yellow [facility] Epithelial cells LM.HPF (Urine sed) [#/Area] Few [facility] Glucose Test strip (U) [Mass/Vol] Negative Trace, Negative [facility] Hemoglobin Ql (U) Negative Negative, Trace [facility] Hyaline casts (Urine sed) [#/Area] 1-3 /LPF Abnormal 0 /LPF [facility] Ketones Ql (U) Negative Negative, Trace [facility] Leukocyte esterase Test strip Ql (U) 500 Akil/uL Abnormal Negative, 25 Akil/uL [facility] Nitrite Ql (U) Negative Negative [facility] pH (U) 6.0 [pH] 5.0 - 8.0 [facility] Protein (U) [Mass/Vol] Trace Trace, Negative [facility] RBC LM.HPF (Urine sed) [#/Area] 3-5 /HPF Abnormal 0-3 /HPF [facility] Specific gravity (U) [Rel density] 1.024 1.005 - 1.030 [facility] Urobilinogen Ql (U) Negative Negative [facility] WBC LM.HPF (Urine sed) [#/Area] /[HPF] Abnormal 0-5 /HPF [facility] Office Visit (Cardiology)on 10-18-2022 Follow-up visit Diagnoses/Problems [...] of your visit. Follow up in 2-3 [facility] Chief Complaint JM BARROW is being seen [...] 1 TABLET DAILY DIRECTED AT BEDTIME Dulcolax [place] Laxative 5 MG Oral Tablet Delayed ReleaseTAKE [...] TABLET AT BEDTIME. Vitamin D3 50 MCG (1999 [place]) Oral TabletTake 1 tablet daily Vitamin [...] Signs Recorded: 18Oct2022 10:13AMRecorded: 18Oct2022 09:54AM Systolic Zlnopdn56, RUE, Sitting Diastolic Fdednnp27, RUE, Sitting Systolic Nqfjqwma01, RUE, Standing Diastolic Wyzejrqx04, RUE, Standing Heart Rate Lyuunhq76, R Radial Heart Rate Uthhjeyc54, R Radial Heart Rate58, R Radial Puhyryal26, LUE, Sitting Qwlbphstl80, LUE, Sitting Height6 ft Qszhsq416 lb BMI Hqyjjxoxof47.82 kg/m2 BSA Calculated2.05 Tobacco Usea) Yes Patient encouraged to stop using tobacco productsYes Falls Screening (more content not included)... Normal [facility] Tobacco Screening.on 023 Fall risk assessment a) No falls within the last year [facility] k [address] DO Work Phone: Tobacco use status [facility] a) Yes [facility] k 600 DO Work Phone: [facility] Screening. Yes [facility] Work Phone: No Panel Informationon 09-13 Normal [facility] [place] [facility] [place] Work Phone: 7.9\S\7.9 Normal [facility] [place] [address] DO Work Phone: Comment on above: Reference range: AM 6 - 24 ug/dl PM <10 ug/dlPERFORMED BY:[facility] [place], [place] [phone] MEDICAL DIRECTORGEORGINA XIAO M.D. Office Visit (Cardiology)on [...] Cortisol-Free, Serum; Status:Active - Retrospective Authorization; Requested for:[id number]; CT Angio Abdomen; Status:Hold For - Scheduling,Retrospective Authorization; Requested for:[id number]; Patient taking Metformin or Derivatives? : No Radiologist to Determine Optimal Study : Y What are the patient's signs and symptoms? : htn CT Angio Pelvis; Status:Hold For - Scheduling,Retrospective Authorization; Requested for:[id number]; Patient taking Metformin or Derivatives? : No [...] we can help. You may also call [phone]-UIOVNOW for free resources and assistance.; Status:Complete - Retrospective Authorization; Done: 01Sep2022 Tobacco Use Screening; Status:Complete; Done: [id number] Unlinked Stop: hydroCHLOROthiazide 25 MG Oral Tablet [...] I will today evaluate his possibility of [place]'s disease. In the future we may consider [...] TABLET TWICE (more content not included)... Normal [facility] Tobacco Screening.on 023 Adult depression screening assessment No [facility] [place] [address] DO Work Phone: Fall risk assessment a) No falls within the last year [facility] [place] [address] DO Work Phone: Tobacco use status [facility] a) Yes [facility] [place] [address] DO Work Phone: Tobacco Screening. Yes [facility] [address] DO Work Phone: [facility]IED HEALTHon 08-15-2022 [facility] HNO ID: [id number] Author: RT Alyssia(R) Service: Radiology Author Type: [...] RT Alyssia(R) August 15, 2022 1:43 PM [facility] MRI PROSTATE WO/W IVCONon MRI PROSTATE WO/W IVCON * * *Final Report* * * DATE OF EXAM: Aug 15 2022 1:44PM [facility] 0751 - MRI PROSTATE WO/W IVCON / PROCEDURE REASON: Cancer of prostate w/med recur risk (T2b-c or [place] 7 or PSA 10-20) (HCC) * * [...] volume were obtained using a semi-automated software (WordWatch). CONTRAST: IV: 16 cc of Dotarem. COMPARISON: [...] of suspicion for clinically significant prostate cancer ([place] score 3 + 4 or higher). PI-RADS v2.1 Assessment Categories: PI-RADS 1: Clinically significant cancer is highly unlikely PI-RADS 2: Clinically significant cancer is unlikely PI-RADS 3: Clinically significant cancer is equivocal PI-RADS 4: Clinically significant cancer is likely PI-RADS 5: Clinically significant cancer is highly likely Business Integration Manager: IVA Transcribe Date/Time: Aug 15 2022 2:35P Dictated by : SARAI AYERS, DO This examination was interpreted and the report reviewed and electronically signed by: CINTIA SOLORZANO MD on Aug 15 2022 5:43PM EST [id number] [facility] NURSING PROGon 08-15-2022 NURSING PROG HNO ID: [id number] Author: Keila Hsu RN Service: PICC Team [...] DATE: August 15, 2022 TIME: 12:43 PM [facility] CBC AUTO DIFFon 08-01-2022 BASO # 0.1 103/ul Normal 0.0-0.1 [facility] Comment on above: Performed By: #### C JEMIMA, CMADM #### [facility] [address] [address] [address] Samantha Samuels Basophils/100 WBC (Bld) 1.0 % Normal 0.2-2.0 [facility] Comment on above: Performed By: #### C MP, CMADM #### [facility] [address] [address] [address] Samantha Samuels EO # 0.5 103/ul Normal 0.0-0.7 [facility] Comment on above: Performed By: #### C MP, CMADM #### [facility] [address] [address] [address] Samantha Samuels Eosinophils/100 WBC (Bld) 7.9 % Critically high 0.9-7.0 [facility] Comment on above: Performed By: #### C MP, CMADM #### [facility] [address] [place] [address] Dr. Samantha Samuels Erythrocyte distribution width (RBC) [Ratio] 12.8 % Normal 11.0-15.0 [facility] Comment on above: Performed By: #### C JEMIMA, CMADM #### [facility] [address] [address] [address] Samantha Samuels Hematocrit (Bld) [Volume fraction] 40.1 % Critically low 42.0-54.0 [facility] Comment on above: Performed By: #### C MP, CMADM #### [facility] [address] [address] [address] Samantha Samuels Hemoglobin (Bld) [Mass/Vol] 13.9 g/dL Critically low 14.0-18.0 [facility] Comment on above: Performed By: #### C MP, CMADM #### [facility] [address] [address] [address] Samantha Samuels IG # 0.01 10e3/ul Normal 0.00-0.03 [facility] Comment on above: Performed By: #### C MP, CMADM #### [facility] [address] [address] [address] Samantha Samuels IG % 0.2 % Normal 0.0-0.5 [facility] Comment on above: Performed By: #### C MP, CMADM #### [facility] [address] [address] [address] Samantha Samuels LYMPH # 1.8 103/ul Normal 1.2-3.8 [facility] Comment on above: Performed By: #### C MP, CMADM #### [facility] [address] [address] [address] Samantha Samuels Lymphocytes/100 WBC (Bld) 28.8 % Normal 20.5-60.0 [facility] Comment on above: Performed By: #### C MP, CMADM #### [facility] [address] [place] [address] Dr. Samantha Samuels MANUAL DIFF REQ NO Normal [facility] Comment on above: Performed By: #### C MP, CMADM #### [facility] [address] [place] [address] Dr. Samantha Samuels MCH (RBC) [Entitic mass] 32.3 pg Normal 25.9-34.0 [facility] Comment on above: Performed By: #### C MP, CMADM #### [facility] [address] [place] [address] Dr. Samantha Samuels MCHC (RBC) [Mass/Vol] 34.7 g/dL Normal 29.9-35.2 [facility] Comment on above: Performed By: #### C MP, CMADM #### [facility] [address] [place] [address] Dr. Samantha Samuels MCV (RBC) [Entitic vol] 93.0 fL Normal 80.0-94.0 [facility] Comment on above: Performed By: #### C MP, CMADM #### [facility] [address] [place] [address] Dr. Samantha Samuels MONO # 0.6 103/ul Normal 0.3-0.8 [facility] Comment on above: Performed By: #### C MP, CMADM #### [facility] [address] [place] [address] Dr. Samantha Samuels Monocytes/100 WBC (Bld) 9.7 % Normal 1.7-12.0 [facility] Comment on above: Performed By: #### C JEMIMA, CMADM #### [facility] [address] [place] [address] Dr. Samantha Samuels NEUT # 3.3 103/ul Normal 1.4-6.5 [facility] Comment on above: Performed By: #### C JEMIMA, PHYLLISDM #### [facility] [address] [place] [address] Dr. Samantha Samuels Neutrophils/100 WBC (Bld) 52.4 % Normal 43.0-75.0 [facility] Comment on above: Performed By: #### C JEMIMA, PHYLLISDM #### [facility] [address] [place] [address] Dr. Samantha Samuels Platelet mean volume (Bld) [Entitic vol] 9.4 fL Critically low 9.5-13.5 [facility] Comment on above: Performed By: #### C PHYLLIS ONOFREDM #### [facility] [address] [place] [address] Dr. Samantha Samuels PLT 227 103/ul Normal 150-450 [facility] Comment on above: Performed By: #### C PHYLLIS ONOFREDM #### [facility] [address] [place] [address] Dr. Samantha Samuels RBC 4.31 106/ul Critically low 4.70-6.[address] [facility] Comment on above: Performed By: #### C JEMIMA, PHYLLISDM #### [facility] [address] [place] [address] Dr. Samantha Samuels WBC 6.3 103/ul Normal 4.0-11.0 [facility] Comment on above: Performed By: #### C JEMIMA, PHYLLISDM #### [facility] [address] [place] [address] Dr. Samantha Samuels Covid-19 PCR ([facility])on 07-14 SARS-CoV-2 (COVID-19) RNA DELIA+probe Ql (Unsp spec) Not detected Normal NOT DETECTED [facility] Comment on above: Result Comment: When [...] for this test is supported by the [place] of Health and Human Service's declaration that [...] longer be used). Performed By: #### [facility] #### [facility] [address] [place] [address] Dr. Samantha Samuels PROF 14(COMP METB)on 023 Albumin [Mass/Vol] 3.8 g/dL Normal 3.4-5.0 [facility] Comment on above: Performed By: #### C PHYLLIS ONOFREDM #### [facility] [address] [place] [address] Dr. Samantha Samuels Albumin/Globulin [Mass ratio] 1.2 {ratio} Normal [facility] Comment on above: Performed By: #### C JEMIMA, CMADM #### [facility] [address] [place] [address] Dr. Samantha Samuels ALP [Catalytic activity/Vol] 73 U/L Normal 46-116 [facility] Comment on above: Performed By: #### C JEMIMA, CMADM #### [facility] [address] [place] [address] Dr. Samantha Samuels ALT [Catalytic activity/Vol] 16 U/L Normal 16-63 [facility] Comment on above: Performed By: #### C JEMIMA, CMADM #### [facility] [address] [place] [address] Dr. Samantha Samuels Anion gap [Moles/Vol] 9.0 mmol/L Normal [facility] Comment on above: Performed By: #### C MP, CMADM #### [facility] [address] [address] [address] Samantha Samuels AST [Catalytic activity/Vol] 18 U/L Normal 15-37 [facility] Comment on above: Performed By: #### C MP, CMADM #### [facility] [address] [address] [address] Samantha Samuels Bilirubin [Mass/Vol] 0.4 mg/dL Normal 0.2-1.0 [facility] Comment on above: Performed By: #### C JEMIMA, CMADM #### [facility] [address] [address] [address] Samantha Samuels Calcium [Mass/Vol] 9.5 mg/dL Normal 8.5-10.1 [facility] Comment on above: Performed By: #### C JEMIMA, CMADM #### [facility] [address] [place] [address] Dr. Samantha Samuels Chloride [Moles/Vol] 106 mmol/L Normal 98-107 [facility] Comment on above: Performed By: #### C JEIMMA, CMADM #### [facility] [address] [place] [address] Dr. Samantha Samuels CO2 [Moles/Vol] 31.1 mmol/L Normal 21.0-32.0 [facility] Comment on above: Performed By: #### C JEMIMA, CMADM #### [facility] [address] [place] [address] Dr. Samantha Samuels Creatinine [Mass/Vol] 0.83 mg/dL Normal 0.70-1.30 [facility] Comment on above: Performed By: #### C JEMIMA, CMADM #### [facility] [address] [place] [address] Dr. Samantha Samuels EGFR-AF BENINESE >60 Normal >=60 [facility] Comment on above: Performed By: #### C MP, CMADM #### [facility] [address] [place] [address] Dr. Samantha Samuels EGFR-NON AF BENINESE >60 Normal >=60 [facility] Comment on above: Performed By: #### C MP, CMADM #### [facility] [address] [address] [address] Samantha Samuels Globulin (S) [Mass/Vol] 3.2 g/dL Normal [facility] Comment on above: Performed By: #### C MP, CMADM #### [facility] [address] [address] [address] Samantha Samuels Glucose [Mass/Vol] 100 mg/dL Normal 74-106 [facility] Comment on above: Performed By: #### C JEMIMA, CMADM #### [facility] [address] [address] [address] Samantha Samuels Potassium [Moles/Vol] 4.1 mmol/L Normal 3.5-5.1 [facility] Comment on above: Performed By: #### C JEMIMA, CMADM #### [facility] [address] [place] [address] Dr. Samantha Samuels Protein [Mass/Vol] 7.0 g/dL Normal 6.4-8.2 [facility] Comment on above: Performed By: #### C JEMIMA, CMADM #### [facility] [address] [place] [address] Dr. Samantha Samuels Sodium [Moles/Vol] 142 mmol/L Normal 136-145 [facility] Comment on above: Performed By: #### C JEMIMA, CMADM #### [facility] [address] [address] [address] Samantha Samuels Urea nitrogen [Mass/Vol] 21.0 mg/dL Critically high 7.0-18.0 [facility] Comment on above: Performed By: #### C JEMIMA, CMADM #### [facility] [address] [place] [address] Dr. Samantha Samuels Urea nitrogen/Creatinin e [Mass ratio] 25.3 mg/mg Normal [facility] Comment on above: Performed By: #### C JEMIMA, CMADM #### [facility] [address] [place] [address] Dr. Samantha Samuels CARDIAC DAWNA ADMITon 023 CK [Catalytic activity/Vol] 101 U/L Normal 39-308 [facility] Comment on above: Performed By: #### C SORAIDA ONOFRE #### [facility] [address] [place] [address] Dr. Samantha Samuels CK.MB [Mass/Vol] 2.00 ng/mL Normal <=3.60 [facility] Comment on above: Performed By: #### C SORAIDA ONOFRE #### [facility] [address] [place] [address] Dr. Samantha Samuels HSTROP 5.3 pg/mL Normal 4.0-76.1 [facility] Comment on above: Result Comment: CUT- OFF POINTS HAVE BEEN ESTABLISHED BASED ON THE FOURTH UNIVERSAL DEFINITIONS OF MYOCARDIAL INFARCTION. THE UPPER REFERENCE LIMIT (URL) OF TROPONIN, DEFINED THE 99TH PERCENTILE OF cTnI DISTRIBUTION IN A REFERENCE POPULATION, HAS BEEN CONFIRMED THE DECISION THRESHOLD FOR [place] DIAGNOSIS. Performed By: #### C SORAIDA ONOFRE #### [facility] [address] [place] [address] Dr. Samantha Samuels JOSE 54 ng/mL Normal 16-96 [facility] Comment on above: Performed By: #### C SORAIDA ONOFRE #### [facility] [address] [place] [address] Dr. Samantha Samuels CBC AUTO DIFFon 07-31-2022 BASO # 0.1 103/ul Normal 0.0-0.1 [facility] Comment on above: Performed By: #### C SORAIDA ONOFRE #### [facility] [address] [place] [address] Dr. Samantha Samuels Basophils/100 WBC (Bld) 1.0 % Normal 0.2-2.0 [facility] Comment on above: Performed By: #### C SORAIDA ONOFRE #### [facility] [address] [place] [address] Dr. Samantha Samuels EO # 0.6 103/ul Normal 0.0-0.7 [facility] Comment on above: Performed By: #### C SORAIDA ONOFRE #### [facility] [address] [place] [address] Dr. Samantha Samuels Eosinophils/100 WBC (Bld) 9.4 % Critically high 0.9-7.0 [facility] Comment on above: Performed By: #### C JEMIMA, PHYLLISDM #### [facility] [address] [place] [address] Dr. Samantha Samuels Erythrocyte distribution width (RBC) [Ratio] 12.7 % Normal 11.0-15.0 [facility] Comment on above: Performed By: #### C JEMIMA, PHYLLISDM #### [facility] [address] [place] [address] Dr. Samantha Samuels Hematocrit (Bld) [Volume fraction] 39.7 % Critically low 42.0-54.0 [facility] Comment on above: Performed By: #### C JEMIMA, PHYLLISDM #### [facility] [address] [place] [address] Dr. Samantha Samuels Hemoglobin (Bld) [Mass/Vol] 13.7 g/dL Critically low 14.0-18.0 [facility] Comment on above: Performed By: #### C JEMIMA, PHYLLISDM #### [facility] [address] [place] [address] Dr. Samantha Samuels IG # 0.01 10e3/ul Normal 0.00-0.03 [facility] Comment on above: Performed By: #### C JEMIMA, PHYLLISDM #### [facility] [address] [place] [address] Dr. Samantha Samuels IG % 0.2 % Normal 0.0-0.5 [facility] Comment on above: Performed By: #### C JEMIMA, CMADM #### [facility] [address] [place] [address] Dr. Samantha Samuels LYMPH # 2.2 103/ul Normal 1.2-3.8 [facility] Comment on above: Performed By: #### C JEMIMA, CMADM #### [facility] [address] [place] [address] Dr. Samantha Samuels Lymphocytes/100 WBC (Bld) 36.8 % Normal 20.5-60.0 [facility] Comment on above: Performed By: #### C JEMIMA, PHYLLISDM #### [facility] [address] [address] [address] Samantha Samuels MANUAL DIFF REQ NO Normal [facility] Comment on above: Performed By: #### C MP, CMADM #### [facility] [address] [address] [address] Samantha Samuels MCH (RBC) [Entitic mass] 32.2 pg Normal 25.9-34.0 [facility] Comment on above: Performed By: #### C MP, CMADM #### [facility] [address] [place] [address] Dr. Samantha Samuels MCHC (RBC) [Mass/Vol] 34.5 g/dL Normal 29.9-35.2 [facility] Comment on above: Performed By: #### C MP, CMADM #### [facility] [address] [place] [address] Dr. Samantha Samuels MCV (RBC) [Entitic vol] 93.2 fL Normal 80.0-94.0 [facility] Comment on above: Performed By: #### C JEMIMA, CMADM #### [facility] [address] [address] [address] Samantha Samuels MONO # 0.6 103/ul Normal 0.3-0.8 [facility] Comment on above: Performed By: #### C MP, CMADM #### [facility] [address] [place] [address] Dr. Samantha Samuels Monocytes/100 WBC (Bld) 10.9 % Normal 1.7-12.0 [facility] Comment on above: Performed By: #### C MP, CMADM #### [facility] [address] [place] [address] Dr. Samantha Samuels NEUT # 2.5 103/ul Normal 1.4-6.5 [facility] Comment on above: Performed By: #### C MP, CMADM #### [facility] [address] [place] [address] Dr. Samantha Samuels Neutrophils/100 WBC (Bld) 41.7 % Critically low 43.0-75.0 [facility] Comment on above: Performed By: #### C MP, CMADM #### [facility] [address] [address] [address] Samantha Samuels Platelet mean volume (Bld) [Entitic vol] 9.3 fL Critically low 9.5-13.5 [facility] Comment on above: Performed By: #### C MP, CMADM #### [facility] [address] [address] [address] Samantha Samuels PLT 225 103/ul Normal 150-450 [facility] Comment on above: Performed By: #### C MP, CMADM #### [facility] [address] [address] [address] Samantha Samuels RBC 4.26 106/ul Critically low 4.70-6.10 [facility] Comment on above: Performed By: #### C JEMIMA, CMADM #### [facility] [address] [address] [address] Samantha Samuels WBC 5.9 103/ul Normal 4.0-11.0 [facility] Comment on above: Performed By: #### C JEMIMA, CMADM #### [facility] [address] [address] [address] HEAD WO CONon [...] No acute intracranial abnormality. Electronically authenticated by: RODNA JOSE RAMON Date: 2022-07-31 20:08 Normal [facility] PROF 14(COMP METB)on 023 Albumin [Mass/Vol] 3.8 g/dL Normal 3.4-5.0 [facility] Comment on above: Performed By: #### C PHYLLIS ONOFREDM #### [facility] [address] [address] [address] Samantha Samuels Albumin/Globulin [Mass ratio] 1.2 {ratio} Normal [facility] Comment on above: Performed By: #### C PHYLLIS ONOFREDM #### [facility] [address] [address] [address] Samantha Samuels ALP [Catalytic activity/Vol] 61 U/L Normal 46-116 [facility] Comment on above: Performed By: #### C PHYLLIS ONOFREDM #### [facility] [address] [address] [address] Samantha Samuels ALT [Catalytic activity/Vol] 18 U/L Normal 16-63 [facility] Comment on above: Performed By: #### C PHYLLIS ONOFREDM #### [facility] [address] [address] [address] Samantha Samuels Anion gap [Moles/Vol] 8.0 mmol/L Normal [facility] Comment on above: Performed By: #### C PHYLLIS ONOFREDM #### [facility] [address] [address] [address] Samantha Samuels AST [Catalytic activity/Vol] 18 U/L Normal 15-37 [facility] Comment on above: Performed By: #### C JEMIMA, PHYLLISDM #### [facility] [address] [place] [address] Dr. Samantha Samuels Bilirubin [Mass/Vol] 0.4 mg/dL Normal 0.2-1.0 [facility] Comment on above: Performed By: #### C JEMIMA, SORAIDA #### [facility] [address] [address] [address] Samantha Samuels Calcium [Mass/Vol] 9.3 mg/dL Normal 8.5-10.1 [facility] Comment on above: Performed By: #### C JEMIMA, PHYLLISDM #### [facility] [address] [place] [address] Dr. Samantha Samuels Chloride [Moles/Vol] 105 mmol/L Normal 98-107 [facility] Comment on above: Performed By: #### C JEMIMA, CMADM #### [facility] [address] [address] [address] Samantha Samuels CO2 [Moles/Vol] 33.2 mmol/L Critically high 21.0-32.0 [facility] Comment on above: Performed By: #### C JEMIMA, PHYLLISDM #### [facility] [address] [place] [address] Dr. Samantha Samuels Creatinine [Mass/Vol] 0.74 mg/dL Normal 0.70-1.30 [facility] Comment on above: Performed By: #### C JEMIMA, PHYLLISDM #### [facility] [address] [place] [address] Dr. Samantha Samuels EGFR-AF BENINESE >60 Normal >=60 [facility] Comment on above: Performed By: #### C JEMIMA, PHYLLISDM #### [facility] [address] [place] [address] Dr. Samantha Samuels EGFR-NON AF BENINESE >60 Normal >=60 [facility] Comment on above: Performed By: #### C PHYLLIS ONOFREDM #### [facility] [address] [place] [address] Dr. Samantha Samuels Globulin (S) [Mass/Vol] 3.2 g/dL Normal [facility] Comment on above: Performed By: #### C JEMIMA, PHYLLISDM #### [facility] [address] [place] [address] Dr. Samantha Samuels Glucose [Mass/Vol] 90 mg/dL Normal 74-106 [facility] Comment on above: Performed By: #### C JEMIMA, PHYLLISDM #### [facility] [address] [place] [address] Dr. Samantha Samuels Potassium [Moles/Vol] 4.2 mmol/L Normal 3.5-5.1 [facility] Comment on above: Performed By: #### C JEMIMA, CMADM #### [facility] [address] [place] [address] Dr. Samantha Samuels Protein [Mass/Vol] 7.0 g/dL Normal 6.4-8.2 [facility] Comment on above: Performed By: #### C JEMIMA, CMADM #### [facility] [address] [place] [address] Dr. Samantha Samuels Sodium [Moles/Vol] 142 mmol/L Normal 136-145 [facility] Comment on above: Performed By: #### C JEMIMA, CMADM #### [facility] [address] [place] [address] Dr. Samantha Samuels Urea nitrogen [Mass/Vol] 18.0 mg/dL Normal 7.0-18.0 [facility] Comment on above: Performed By: #### C JEMIMA, CMADM #### [facility] [address] [place] [address] Dr. Samantha Samuels Urea nitrogen/Creatinin e [Mass ratio] 24.3 mg/mg Normal [facility] Comment on above: Performed By: #### C JEMIMA, CMADM #### [facility] [address] [place] [address] Dr. Samantha Samuels PET+CT Guidance for localiza [...] any questions regarding this interpretation, please call [phone]. If you are unable to reach us at the number above, please feel free to contact [facility] at [phone]. DIVISION OF RADIOLOGY * * *Final Report* * * DATE OF EXAM: Jun 02 2022 3:09PM NRN 0093 - NM PET/CT PROSTATE WB / PROCEDURE REASON: multiple diagnoses * * * * Physician Interpretation * * * * RESULT: [id number] WHOLE BODY PET/CT SCAN HISTORY: 76-year-old man prostate cancer, rising PSA COMPARISON: CT 09/11/2015 TECHNIQUE: 10.8 mCi of [id number]. The PET imaging was obtained between SKULL [...] to degenerative changes. DIVISION OF RADIOLOGY Provider, [facility] - 06/03/2022 * * *Final Report* * * DATE OF EXAM: Jun 02 2022 3:09PM NRN 0093 - NM PET/CT PROSTATE WB / PROCEDURE REASON: multiple diagnoses * * * * Physician Interpretation * * * * RESULT: [id number] WHOLE BODY PET/CT SCAN HISTORY: 76-year-old man prostate cancer, rising PSA COMPARISON: CT 09/11/2015 TECHNIQUE: 10.8 mCi of [id number]. The PET imaging was obtained between SKULL [...] any questions regarding this interpretation, please call [phone]. If you are unable to reach us at the number above, please feel free to contact [facility] at [phone]. [facility] PET+CT Guidance for localiza tion of tumor of Whole body-- W [id number] IVOrdered By: [facility] Provider on 06-03-2022 [facility] PSA/PROSTSPECAG DIAGon 06-03 Prostate specific Ag [Mass/Vol] 0.50 ng/mL NINF - 2.60 ng/mL [facility] Comment on above: Total PSA test metho dology used is the Electrochemiluminescence Immunoassay by [employer]. Total PSA values by differing methodologies cannot be interchanged. Prostate specific Ag [Mass/V ol]on 06-03-2022 Interpretation and review of laboratory results Normal [facility] TESTOSTERONE TOTALon 023 Testosterone [Mass/Vol] ng/dL Low 193 - 824 ng/dL [facility] Comment on above: A testosterone level in the 193-320 ng/dL range with associated clinical symptoms is considered low and may indicate hypogonadism (from NEJM 2010 363:123-135). Results >320 ng/dL are considered normal. Result rechecked. Testosterone [Mass/Vol]on Interpretation and review of laboratory results Abnormal [facility] PET+CT Guidance for localiza tion of tumor of Whole body-- W 18F-FDG Mariosl 06-02-2022 Radiology Study observation (narrative) [facility] CALCIUMon 05-17-2022 Calcium [Mass/Vol] 9.4 mg/dL Normal 8.5-10.1 [facility] Comment on above: Performed By: #### C MP, CMADM #### [facility] [address] [place] [address] Dr. Samantha Samuels [facility]on SARS-CoV-2 (COVID-19) RNA DELIA+probe Ql (Unsp spec) Not detected Normal NOT DETECTED [facility] Comment on above: Result Comment: This test is not yet approved or cleared by the [place] FDA. When there are no FDA-approved or cleared tests available, and other criteria are met, FDA can make tests available under an emergency access mechanism called an Emergency Use Authorization (EUA). The EUA for this test is supported by the Spacer Type Bar And Segment of Health and Human Service's (HHS's) declaration [...] #### C MP, CMADM #### [facility] [address] [place] [address] Dr. Samantha Samuels INFLUENZA A AND B AGon 05-17 INFLUANE SEE BELOW Normal [facility] Comment on above: Result Comment: Nega tive for Flu A protein angiten. Infection due to Flu A cannot be ruled out. Flu A angiten in the sample may be below the detection limit of the test. Performed By: #### C MP, CMADM #### [facility] [address] [address] [address] Samantha Samuels INFLUBNEG SEE BELOW Normal [facility] Comment on above: Result Comment: Nega tive for Flu B protein antigen. Infection due to Flu B cannot be ruled out. Flu B antigen in the sample may be below the detection limit of the test. Performed By: #### C JEMIMA, CMADM #### [facility] [address] [place] [address] Dr. Samantha Samuels INFLUENZA A AG Negative Normal NEGATIVE SEE COMMENT [facility] Comment on above: Performed By: #### C JEMIMA, CMADM #### [facility] [address] [place] [address] Dr. Samantha Samuels INFLUENZA B AG Negative Normal NEGATIVE SEE COMMENT [facility] Comment on above: Performed By: #### C JEMIMA, CMADM #### [facility] [address] [place] [address] Dr. Samantha Samuels NM STRESS/REST MULTIon 03-24 MT STRESS/REST MULTI Patient: JM BARROW Exam Date: 03/24/2022 : 1945 Gender:M Ordering : DR ARLINE OROSCO . Admission #: [id number] Family : Order #: [id number] CLICK HERE TO VIEW EXAM RADIOLOGY REPORT [...] LOCATION: Basal inferoseptal. Mid-anterior. Mid-inferoseptal. Apical anterior. [place]. SIZE: Large (5 or more segments). SEVERITY: [...] Villar MD on 03/24/2022 at 13:00 [address] [facility] CT LUNG CANCER SCREENINGon 1 05-21-2021 [...] SKINNY VILLAR Date: 2022-03-21 07:45 Normal [facility] INSULINon 03-19-2022 Insulin 5.9 uIU/mL Normal 2.6-24.9 [facility] Comment on above: Performed By: #### C MP, CMADM #### [facility] [address] [place] [address] Dr. Samantha Samuels CBC AUTO DIFFon 03-18-2022 BASO # 0.1 103/ul Normal 0.0-0.1 [facility] Comment on above: Performed By: #### C JEMIMA, CMADM #### [facility] [address] [place] [address] Dr. Samantha Samuels Basophils/100 WBC (Bld) 1.0 % Normal 0.2-2.0 [facility] Comment on above: Performed By: #### C JEMIMA, CMADM #### [facility] [address] [address] [address] Samantha Samuels EO # 0.7 103/ul Normal 0.0-0.7 [facility] Comment on above: Performed By: #### C JEMIMA, CMADM #### [facility] [address] [place] [address] Dr. Samantha Samuels Eosinophils/100 WBC (Bld) 9.8 % Critically high 0.9-7.0 [facility] Comment on above: Performed By: #### C JEMIMA, CMADM #### [facility] [address] [address] [address] Samantha Samuels Erythrocyte distribution width (RBC) [Ratio] 12.7 % Normal 11.0-15.0 [facility] Comment on above: Performed By: #### C JEMIMA, CMADM #### [facility] [address] [place] [address] Dr. Samantha Samuels Hematocrit (Bld) [Volume fraction] 41.7 % Critically low 42.0-54.0 [facility] Comment on above: Performed By: #### C JEMIMA, CMADM #### [facility] [address] [place] [address] Dr. Samantha Samuels Hemoglobin (Bld) [Mass/Vol] 14.2 g/dL Normal 14.0-18.0 [facility] Comment on above: Performed By: #### C JEMIMA, CMADM #### [facility] [address] [place] [address] Dr. Samantha Samuels IG # 0.01 10e3/ul Normal 0.00-0.03 [facility] Comment on above: Performed By: #### C JEMIMA, PHYLLISDM #### [facility] [address] [place] [address] Dr. Samantha Samuels IG % 0.1 % Normal 0.0-0.5 [facility] Comment on above: Performed By: #### C JEMIMA, CMADM #### [facility] [address] [place] [address] Dr. Samantha Samuels LYMPH # 1.7 103/ul Normal 1.2-3.8 [facility] Comment on above: Performed By: #### C JEMIMA, PHYLLISDM #### [facility] [address] [place] [address] Dr. Samantha Samuels Lymphocytes/100 WBC (Bld) 24.7 % Normal 20.5-60.0 [facility] Comment on above: Performed By: #### C JEMIMA, CMADM #### [facility] [address] [place] [address] Dr. Samantha Samuels MANUAL DIFF REQ NO Normal [facility] Comment on above: Performed By: #### C JEMIMA, CMADM #### [facility] [address] [place] [address] Dr. Samantha Samuels MCH (RBC) [Entitic mass] 31.7 pg Normal 25.9-34.0 [facility] Comment on above: Performed By: #### C JEMIMA, CMADM #### [facility] [address] [place] [address] Dr. Samantha Samuels MCHC (RBC) [Mass/Vol] 34.1 g/dL Normal 29.9-35.2 [facility] Comment on above: Performed By: #### C JEMIMA, CMADM #### [facility] [address] [address] [address] Samantha Samuels MCV (RBC) [Entitic vol] 93.1 fL Normal 80.0-94.0 [facility] Comment on above: Performed By: #### C JEMIMA, CMADM #### [facility] [address] [place] [address] Dr. Samantha Samuels MONO # 0.6 103/ul Normal 0.3-0.8 [facility] Comment on above: Performed By: #### C JEMIMA, CMADM #### [facility] [address] [place] [address] Dr. Samantha Samuels Monocytes/100 WBC (Bld) 8.6 % Normal 1.7-12.0 [facility] Comment on above: Performed By: #### C JEMIMA, CMADM #### [facility] [address] [place] [address] Dr. Samantha Samuels NEUT # 3.7 103/ul Normal 1.4-6.5 [facility] Comment on above: Performed By: #### C JEMIMA, CMADM #### [facility] [address] [place] [address] Dr. Samantha Samuels Neutrophils/100 WBC (Bld) 55.8 % Normal 43.0-75.0 [facility] Comment on above: Performed By: #### C JEMIMA, CMADM #### [facility] [address] [place] [address] Dr. Samantha Samuels Platelet mean volume (Bld) [Entitic vol] 8.8 fL Critically low 9.5-13.5 [facility] Comment on above: Performed By: #### C JEMIMA, CMADM #### [facility] [address] [place] [address] Dr. Samantha Samuels PLT 228 103/ul Normal 150-450 [facility] Comment on above: Performed By: #### C JEMIMA, CMADM #### [facility] [address] [address] [address] Samantha Samuels RBC 4.48 106/ul Critically low 4.70-6.10 [facility] Comment on above: Performed By: #### C JEMIMA, PHYLLISDM #### [facility] [address] [address] [address] Samantha Samuels WBC 6.7 103/ul Normal 4.0-11.0 [facility] Comment on above: Performed By: #### C SORAIDA ONOFRE #### [facility] [address] [address] [address] Samantha Samuels GLYCOHEMOGLOBIN A1Con 2021 ADA RECOMMENDATION SEE BELOW Normal [facility] Comment on above: Result Comment: ADA RECOMMENDED LIMIT 4.0 - 6.0 ADA THERAPEUTIC TARGET < 7.0 ACTION SUGGESTED > 7.0 Performed By: #### A 1C #### [facility] [address] [place] [address] Dr. Samantha Samuels Glucose [Mass/Vol] 103 mg/dL Normal [facility] Comment on above: Performed By: #### A 1C #### [facility] [address] [address] [address] Samantha Samuels HbA1c (Bld) [Mass fraction] 5.2 % Normal 4.5-6.2 [facility] Comment on above: Performed By: #### A 1C #### [facility] [address] [place] [address] Dr. Samantha Samuels LIPID PROFILEon 03-18-2022 CHOL-HDL RATIO NORM SEE BELOW Normal [facility] Comment on above: Result Comment: 3.3 - 4.4 LOW RISK 4.4 - 7.1 AVERAGE RISK 7.1 - 11.0 MODERATE RISK >11.0 HIGH RISK Performed By: #### L IPID, URIC, CMP #### [facility] [address] [address] [address] Samantha Samuels Cholesterol [Mass/Vol] 189 mg/dL Normal <=200 [facility] Comment on above: Performed By: #### L IPID, URIC, CMP #### [facility] [address] [address] [address] Samantha Samuels Cholesterol in HDL [Mass/Vol] 54 mg/dL Normal 40-60 [facility] Comment on above: Performed By: #### L IPID, URIC, CMP #### [facility] [address] [place] [address] Dr. Samantha Samuels Cholesterol in LDL [Mass/Vol] 121.2 mg/dL Normal [facility] Comment on above: Performed By: #### L IPID, URIC, CMP #### [facility] [address] [place] [address] Dr. Samantha Samuels Cholesterol.total/ Cholesterol in HDL [Mass ratio] 3.5 {ratio} Normal [facility] Comment on above: Performed By: #### L IPID, URIC, CMP #### [facility] [address] [place] [address] Dr. Samantha Samuels HDL NORMAL > or = 60 mg/dl - LO W CARDIOVASCULAR RISK <40 mg/dl - HIGH CARDIOVASCULAR RISK Normal [facility] Comment on above: Performed By: #### L IPID, URIC, CMP #### [facility] [address] [place] [address] Dr. Samantha Samuels LDL CALC NORMAL SEE BELOW Normal [facility] Comment on above: Result Comment: <100 mg/dl OPTIMAL 100 - 129 mg/dl NEAR OR ABOVE OPTIMAL 130 - 159 mg/dl BORDERLINE HIGH 160 - 189 mg/dl HIGH >190 mg/dl VERY HIGH Performed By: #### L IPID, URIC, CMP #### [facility] [address] [place] [address] Dr. Samantha Samuels Triglyceride [Mass/Vol] 69 mg/dL Normal <=150 [facility] Comment on above: Performed By: #### L IPID, URIC, CMP #### [facility] [address] [place] [address] Dr. Samantha Samuels VLDL CALC 13.8 mg/dL Normal [facility] Comment on above: Performed By: #### L IPID, URIC, CMP #### [facility] [address] [place] [address] Dr. Samantha Samuels PROF 14(COMP METB)on 022 Albumin [Mass/Vol] 3.9 g/dL Normal 3.4-5.0 [facility] Comment on above: Performed By: #### L IPID, URIC, CMP #### [facility] [address] [address] [address] Samantha Samuels Albumin/Globulin [Mass ratio] 1.0 {ratio} Normal [facility] Comment on above: Performed By: #### L IPID, URIC, CMP #### [facility] [address] [address] [address] Samantha Samuels ALP [Catalytic activity/Vol] 45 U/L Critically low 46-116 [facility] Comment on above: Performed By: #### L IPID, URIC, CMP #### [facility] [address] [place] [address] Dr. Samantha Samuels ALT [Catalytic activity/Vol] 16 U/L Normal 16-63 [facility] Comment on above: Performed By: #### L IPID, URIC, CMP #### [facility] [address] [place] [address] Dr. Samantha Samuels Anion gap [Moles/Vol] 6.2 mmol/L Normal [facility] Comment on above: Performed By: #### L IPID, URIC, CMP #### [facility] [address] [place] [address] Dr. Samantha Samuels AST [Catalytic activity/Vol] 16 U/L Normal 15-37 [facility] Comment on above: Performed By: #### L IPID, URIC, CMP #### [facility] [address] [place] [address] Dr. Samantha Samuels Bilirubin [Mass/Vol] 0.5 mg/dL Normal 0.2-1.0 [facility] Comment on above: Performed By: #### L IPID, URIC, CMP #### [facility] [address] [place] [address] Dr. Samantha Samuels Calcium [Mass/Vol] 9.4 mg/dL Normal 8.5-10.1 [facility] Comment on above: Performed By: #### L IPID, URIC, CMP #### [facility] [address] [address] [address] Samantha Samuels Chloride [Moles/Vol] 106 mmol/L Normal 98-107 [facility] Comment on above: Performed By: #### L IPID, URIC, CMP #### [facility] [address] [address] [address] Samantha Samuels CO2 [Moles/Vol] 32.2 mmol/L Critically high 21.0-32.0 [facility] Comment on above: Performed By: #### L IPID, URIC, CMP #### [facility] [address] [address] [address] Samantha Samuels Creatinine [Mass/Vol] 0.82 mg/dL Normal 0.70-1.30 [facility] Comment on above: Performed By: #### L IPID, URIC, CMP #### [facility] [address] [place] [address] Dr. Samantha Samuels EGFR-AF BENINESE >60 Normal >=60 [facility] Comment on above: Result Comment: Prev iously reported as: (blank) On 03/18/2022 10:54 By KD3 Performed By: #### L IPID, URIC, CMP #### [facility] [address] [place] [address] Dr. Samantha Samuels EGFR-NON AF BENINESE >60 Normal >=60 [facility] Comment on above: Result Comment: Prev iously reported as: (blank) On 03/18/2022 10:54 By KD3 Performed By: #### L IPID, URIC, CMP #### [facility] [address] [address] [address] Samantha Samuels Globulin (S) [Mass/Vol] 3.8 g/dL Normal [facility] Comment on above: Performed By: #### L IPID, URIC, CMP #### [facility] [address] [place] [address] Dr. Samantha Samuels Glucose [Mass/Vol] 101 mg/dL Normal 74-106 [facility] Comment on above: Performed By: #### L IPID, URIC, CMP #### [facility] [address] [place] [address] Dr. Samantha Samuels Potassium [Moles/Vol] 4.4 mmol/L Normal 3.5-5.1 [facility] Comment on above: Performed By: #### L IPID, URIC, CMP #### [facility] [address] [place] [address] Dr. Samantha Samuels Protein [Mass/Vol] 7.7 g/dL Normal 6.4-8.2 [facility] Comment on above: Performed By: #### L IPID, URIC, CMP #### [facility] [address] [place] [address] Dr. Samantha Samuels Sodium [Moles/Vol] 140 mmol/L Normal 136-145 [facility] Comment on above: Performed By: #### L IPID, URIC, CMP #### [facility] [address] [place] [address] Dr. Samantha Samuels Urea nitrogen [Mass/Vol] 17.0 mg/dL Normal 7.0-18.0 [facility] Comment on above: Performed By: #### L IPID, URIC, CMP #### [facility] [address] [place] [address] Dr. Samantha Samuels Urea nitrogen/Creatinin e [Mass ratio] 20.7 mg/mg Normal [facility] Comment on above: Performed By: #### L IPID, URIC, CMP #### [facility] [address] [place] [address] Dr. Samantha Samuels URIC ACID SERUMon 03-18-2022 Urate [Mass/Vol] 4.5 mg/dL Normal 3.5-7.2 [facility] Comment on above: Performed By: #### L IPID, URIC, CMP #### [facility] [address] [place] [address] Dr. Samantha Samuels VITAMIN D 25 OHon 03-18-2022 VIT D 25-OH 73.5 ng/mL Normal [facility] Comment on above: Performed By: #### C MP, CMADM #### [facility] [address] [place] [address] Dr. Samantha Samuels VIT D RANGES SEE BELOW Normal [facility] Comment on above: Result Comment: <20 ng/mL Vit D deficient 20 - <30 ng/mL Vit D insufficient 30 - 100 ng/mL Vit D sufficient >100 ng/mL Potential Toxicity Performed By: #### C MP, CMADM #### [facility] [address] [address] [address] Samantha Samuels CALCIUMon 11-18-2021 Calcium [Mass/Vol] 10.3 mg/dL Critically high 8.5-10.1 [facility] Comment on above: Performed By: #### C A #### [facility] [address] [address] [address] Samantha Samuels [facility] SARS-CoV-2 (COVID-19) RNA DELIA+probe Ql (Unsp spec) Not detected Normal NOT DETECTED [facility] Comment on above: Result Comment: This test is not yet approved or cleared by the [place] FDA. When there are no FDA-approved or cleared tests available, and other criteria are met, FDA can make tests available under an emergency access mechanism called an Emergency Use Authorization (EUA). The EUA for this test is supported by the [employer] of Health and Human Service's (HHS's) declaration [...] SARS-CoV-2. Performed By: #### C VDTBH #### [facility] [address] [place] [address] Dr. Samantha Samuels SYMPTOMATIC COVID-19 ANTIGEN on 11-17-2021 EUA Statement SEE BELOW Normal [facility] Comment on above: Result Comment: This test [...] By: #### C VDAGS #### [facility] [address] [place] [address] Dr. Samantha Samuels SARS-CoV-2 (COVID-19) RNA DELIA+probe Ql (Unsp spec) Negative Normal NEGATIVE [facility] Comment on above: Performed By: #### C VDAGS #### [facility] [address] [place] [address] Dr. Samantha Samuels [facility] SARS-CoV-2 (COVID-19) RNA DELIA+probe Ql (Unsp spec) Not detected Normal NOT DETECTED [facility] Comment on above: Result Comment: This test is not yet approved or cleared by the [place] FDA. When there are no FDA-approved or cleared tests available, and other criteria are met, FDA can make tests available under an emergency access mechanism called an Emergency Use Authorization (EUA). The EUA for this test is supported by the [place] of Health and Human Service's (HHS's) declaration [...] #### C JEMIMA, CMADM #### [facility] [address] [place] [address] Dr. Samantha Samuels INFLUENZA A AND B AGon 09-07 [facility] SEE BELOW Normal [facility] Comment on above: Result Comment: Nega tive for Flu A protein angiten. Infection due to Flu A cannot be ruled out. Flu A angiten in the sample may be below the detection limit of the test. Performed By: #### C JEMIMA, CMADM #### [facility] [address] [place] [address] Dr. Samantha Samuels INFLUBNEG SEE BELOW Normal [facility] Comment on above: Result Comment: Nega tive for Flu B protein antigen. Infection due to Flu B cannot be ruled out. Flu B antigen in the sample may be below the detection limit of the test. Performed By: #### C JEMIMA, CMADM #### [facility] [address] [place] [address] Dr. Samantha Samuels INFLUENZA A AG Negative Normal NEGATIVE SEE COMMENT [facility] Comment on above: Performed By: #### C JEMIMA, CMADM #### [facility] [address] [place] [address] Dr. Samantha Samuels INFLUENZA B AG Negative Normal NEGATIVE SEE COMMENT [facility] Comment on above: Performed By: #### C JEMIMA, CMADM #### [facility] [address] [place] [address] Dr. Samantha Samuels INTERNAL CONTROLS Within Normal Limits Normal Wi thin Normal Limits [facility] Comment on above: Performed By: #### C JEMIMA, CMADM #### [facility] [address] [place] [address] Dr. Samantha Samuels Vital Signs Date Time Vital Sign Value Performing Clinician Facility 05-22-2024 13:16-0500 Blood Pressure Location Willard MONDRAGON [facility] [place] 05-22-2024 13:16-0500 Diastolic blood pressure 57 mm[Hg] Willard MONDRAGON [facility] [place] 05-22-2024 13:16-0500 Heart rate 62 /min Willard NILL [facility] [place] 05-22-2024 13:16-0500 Respiratory rate 16 /min Willard NILL [facility] [place] 05-22-2024 13:16-0500 Systolic blood pressure 97 mm[Hg] Willard NILL [facility] [place] 02-15-2024 14:30-0400 Body height 177.8 cm Jose Francisco Broussard MD Work Phone: [facility] 02-15-2024 14:30-0400 Body mass index (BMI) [Ratio] 24.8 kg/m2 Jose Francisco Broussard MD Work Phone: [facility] 02-15-2024 14:30-0400 Body temperature 97.81 [degF] Jose Francisco Broussard MD Work Phone: [facility] 02-15-2024 14:30-0400 Body weight 78.4 kg Jose Francisco Broussard MD Work Phone: [facility] 02-15-2024 14:30-0400 Diastolic blood pressure 77 mm[Hg] Jose Francisco Broussard MD Work Phone: [facility] 02-15-2024 14:30-0400 Heart rate 51 /min Jose Francisco Broussard MD Work Phone: [facility] 02-15-2024 14:30-0400 Respiratory rate 16 /min Jose Francisco Broussard MD Work Phone: [facility] 02-15-2024 14:30-0400 SaO2% (BldA) [Mass fraction] 98 % Jose Francisco Broussard MD Work Phone: [facility] 02-15-2024 14:30-0400 Systolic blood pressure 131 mm[Hg] Jose Francisco Broussard MD Work Phone: [facility] 02-15-2024 14:06-0400 Body mass index (BMI) [Ratio] 24.8 kg/m2 CALVIN Guzman MD Work Phone: [facility] 02-15-2024 14:06-0400 Body temperature 97.81 [degF] CALVIN Guzman MD Work Phone: [facility] 02-15-2024 14:06-0400 Body weight 78.4 kg CALVIN Guzman MD Work Phone: [facility] 02-15-2024 14:06-0400 Diastolic blood pressure 77 mm[Hg] CALVIN Guzman MD Work Phone: [facility] 02-15-2024 14:06-0400 Heart rate 51 /min CALVIN Guzman MD Work Phone: [facility] 02-15-2024 14:06-0400 Respiratory rate 16 /min CALVIN Guzman MD Work Phone: [facility] 02-15-2024 14:06-0400 SaO2% (BldA) [Mass fraction] 98 % CALVIN Guzman MD Work Phone: [facility] 02-15-2024 14:06-0400 Systolic blood pressure 131 mm[Hg] CALVIN Guzman MD Work Phone: [facility] 12-20-2023 13:48-0400 Body mass index (BMI) [Ratio] 25.37 kg/m2 Isadora Praterer PA-C Work Phone: [facility] 12-20-2023 13:48-0400 Body temperature 97.2 [degF] Isadora Elisabet PA-C Work Phone: [facility] 12-20-2023 13:48-0400 Body weight 80.2 kg Isadora Elisabet PA-C Work Phone: [facility] 12-20-2023 13:48-0400 Diastolic blood pressure 74 mm[Hg] Isadora Elisabet PA-C Work Phone: [facility] 12-20-2023 13:48-0400 Heart rate 69 /min Isadora Praterer PA-C Work Phone: [facility] 12-20-2023 13:48-0400 Respiratory rate 16 /min Isadora Elisabet PA-C Work Phone: [facility] 12-20-2023 13:48-0400 SaO2% (BldA) [Mass fraction] 96 % Isadora Elisabet PA-C Work Phone: [facility] 12-20-2023 13:48-0400 Systolic blood pressure 135 mm[Hg] Isadora Elisabet PA-C Work Phone: [facility] 11-14-2023 14:20-0400 Body height 182.88 cm MD Arline Orosco Work Phone: [facility] 11-14-2023 14:20-0400 Body mass index (BMI) [Ratio] 24.4 kg/m2 MD Arline Orosco Work Phone: [facility] 11-14-2023 14:20-0400 Body temperature 97.6 [degF] MD Arline Orosco Work Phone: [facility] 11-14-2023 14:20-0400 Body weight 81.64 kg MD Arline Orosco Work Phone: [facility] 11-14-2023 14:20-0400 Diastolic blood pressure 62 mm[Hg] MD Arline Orosco Work Phone: [facility] 11-14-2023 14:20-0400 Heart rate 74 /min MD Arline Orosco Work Phone: [facility] 11-14-2023 14:20-0400 Respiratory rate 16 /min MD Arline Orosco Work Phone: [facility] 11-14-2023 14:20-0400 SaO2% (BldA) [Mass fraction] 98 % MD Arline Orosco Work Phone: [facility] 11-14-2023 14:20-0400 Systolic blood pressure 106 mm[Hg] MD Arline Orosco Work Phone: [facility] 08-17-2023 10:20-0400 Body height 177.8 cm Jose Francisco Broussard MD Work Phone: [facility] 08-17-2023 10:20-0400 Body temperature 97.9 [degF] Jose Francisco Broussard MD Work Phone: [facility] 08-17-2023 10:20-0400 Body weight 83.6 kg Jose Francisco Broussard MD Work Phone: [facility] 08-17-2023 10:20-0400 Diastolic blood pressure 66 mm[Hg] Jose Francisco Broussard MD Work Phone: [facility] 08-17-2023 10:20-0400 Heart rate 71 /min Jose Francisco Broussard MD Work Phone: [facility] 08-17-2023 10:20-0400 Respiratory rate 16 /min Jose Francisco Broussard MD Work Phone: [facility] 08-17-2023 10:20-0400 SaO2% (BldA) [Mass fraction] 97 % Jose Francisco Broussard MD Work Phone: [facility] 08-17-2023 10:20-0400 Systolic blood pressure 118 mm[Hg] Jose Francisco Broussard MD Work Phone: [facility] 06-26-2023 10:16-0500 Body height 177.8 cm Jose Francisco Broussard MD Work Phone: [facility] 06-26-2023 10:16-0500 Body temperature 97.5 [degF] Jose Francisco Broussard MD Work Phone: [facility] 06-26-2023 10:16-0500 Body weight 81.1 kg Jose Francisco Broussard MD Work Phone: [facility] 06-26-2023 10:16-0500 Diastolic blood pressure 54 mm[Hg] Jose Francisco Broussard MD Work Phone: [facility] 06-26-2023 10:16-0500 Heart rate 85 /min Jose Francisco Broussard MD Work Phone: [facility] 06-26-2023 10:16-0500 Respiratory rate 18 /min Jose Francisco Broussard MD Work Phone: [facility] 06-26-2023 10:16-0500 SaO2% (BldA) [Mass fraction] 97 % Jose Francisco Broussard MD Work Phone: [facility] 06-26-2023 10:16-0500 Systolic blood pressure 99 mm[Hg] Jose Francisco Broussard MD Work Phone: [facility] 02-23-2023 13:23-0400 Body temperature 97.39 [degF] CALVIN Guzman MD Work Phone: [facility] 02-23-2023 13:23-0400 Body weight 83.46 kg CALVIN Guzman MD Work Phone: [facility] 02-23-2023 13:23-0400 Diastolic blood pressure 68 mm[Hg] CALVIN Guzman MD Work Phone: [facility] 02-23-2023 13:23-0400 Heart rate 64 /min CALVIN Guzman MD Work Phone: [facility] 02-23-2023 13:23-0400 Respiratory rate 16 /min CALVIN Guzman MD Work Phone: [facility] 02-23-2023 13:23-0400 SaO2% (BldA) [Mass fraction] 95 % CALVIN Guzman MD Work Phone: [facility] 02-23-2023 13:23-0400 Systolic blood pressure 109 mm[Hg] CALVIN Guzman MD Work Phone: [facility] 12-07-2022 14:01-0400 Body height 182.9 cm Manny Meza MD Work Phone: [facility] 12-07-2022 14:010400 Body weight 79.83 kg Manny Meza MD Work Phone: [facility] 12-07-2022 14:01-0400 Diastolic blood pressure 63 mm[Hg] Manny Meza MD Work Phone: [facility] 12-07-2022 14:01-0400 Heart rate 76 /min Manny Meza MD Work Phone: [facility] 12-07-2022 14:01-0400 Systolic blood pressure 108 mm[Hg] Manny Meza MD Work Phone: [facility] 11-24-2022 13:39-0400 Diastolic blood pressure 70 mm[Hg] CALVIN Guzman MD Work Phone: [facility] 11-24-2022 13:39-0400 Heart rate 63 /min CALVIN Guzman MD Work Phone: [facility] 11-24-2022 13:39-0400 Systolic blood pressure 111 mm[Hg] CALVIN Guzman MD Work Phone: [facility] 11-24-2022 13:38-0400 Body temperature 97 [degF] CALVIN Guzman MD Work Phone: [facility] 11-24-2022 13:38-0400 Body weight 80.2 kg CALVIN Guzman MD Work Phone: [facility] 11-24-2022 13:38-0400 Respiratory rate 18 /min CALVIN Guzman MD Work Phone: [facility] 11-24-2022 13:38-0400 SaO2% (BldA) [Mass fraction] 97 % CALVIN Guzman MD Work Phone: [facility] 10-18-2022 10:13-0400 Diastolic blood pressure 50 mm[Hg] Arline Garciay [facility] [employer] [address] [facility] Work Phone: 10-18-2022 10:13-0400 Diastolic blood pressure 48 mm[Hg] Arline M Hoy Work Phone: [facility] [employer] [address] DO Work Phone: 10-18-2022 10:13-0400 Systolic blood pressure 82 mm[Hg] Arline M Hoy Work Phone: [facility] [address] DO Work Phone: 10-18-2022 10:13-0400 Systolic blood pressure 72 mm[Hg] Arline M Hoy Work Phone: [facility] [address] DO Work Phone: 10-18-2022 10:130400 58 1 Arline M Hoy Work Phone: [facility] [address] DO Work Phone: Comment on above: [employer] 10-18-2022 10:130400 56 1 Arline M Hoy Work Phone: [facility] [address] DO Work Phone: Comment on above: [employer] 10-18-2022 09:54-0400 Body height 182.88 cm Arline M Hoy Work Phone: [facility] [address] DO Work Phone: 10-18-2022 09:54-0400 Body mass index (BMI) [Ratio] 24.82 kg/m2 Arline M Hoy Work Phone: [facility] [address] DO Work Phone: 10-18-2022 09:54-0400 Body surface area Derived from formula 2.05 m2 Arline M Hoy Work Phone: [facility] [address] DO Work Phone: 10-18-2022 09:54-0400 Body weight 83.01 kg Arline M Hoy Work Phone: [facility] [address] DO Work Phone: 10-18-2022 09:54-0400 Diastolic blood pressure 60 mm[Hg] Arline M Hoy Work Phone: [facility] [address] DO Work Phone: 10-18-2022 09:54-0400 Heart rate 58 /min Arline Clem Hoy Work Phone: [facility] [address] DO Work Phone: 10-18-2022 09:54-0400 Systolic blood pressure 90 mm[Hg] Arline Clem Hoy Work Phone: [facility] [address] DO Work Phone: 09-22-2022 12:52-0400 Body height 182.9 cm Jose Francisco Broussard MD Work Phone: [facility] 09-22-2022 12:52-0400 Body temperature 97.39 [degF] Jose Francisco Broussard MD Work Phone: [facility] 09-22-2022 12:52-0400 Body weight 79.02 kg Jose Francisco Broussard MD Work Phone: [facility] 09-22-2022 12:52-0400 Diastolic blood pressure 49 mm[Hg] Jose Francisco Broussard MD Work Phone: [facility] 09-22-2022 12:52-0400 Heart rate 79 /min Jose Francisco Broussard MD Work Phone: [facility] 09-22-2022 12:52-0400 Respiratory rate 16 /min Jose Francisco Broussard MD Work Phone: [facility] 09-22-2022 12:52-0400 SaO2% (BldA) [Mass fraction] 94 % Jose Francisco Brousasrd MD Work Phone: [facility] 09-22-2022 12:52-0400 Systolic blood pressure 92 mm[Hg] Jose Francisco Broussard MD Work Phone: [facility] 09-01-2022 12:55-0400 Body height 182.88 cm Arline Nj Hoy Work Phone: [facility] 250 DO Work Phone: 09-01-2022 12:55-0400 Body mass index (BMI) [Ratio] 24.82 kg/m2 Arline Clem Hoy Work Phone: [facility] 250 DO Work Phone: 09-01-2022 12:55-0400 Body surface area Derived from formula 2.05 m2 Arline Clem Hoy Work Phone: [facility] [address] DO Work Phone: 09-01-2022 12:55-0400 Body weight 83.01 kg Arline Clem Hoy Work Phone: [facility] [address] DO Work Phone: 09-01-2022 12:55-0400 Diastolic blood pressure 62 mm[Hg] Arline Clem Hoy Work Phone: [facility] [address] DO Work Phone: 09-01-2022 12:55-0400 Heart rate 42 /min Arline Clem Hoy Work Phone: [facility] [address] DO Work Phone: 09-01-2022 12:55-0400 Systolic blood pressure 108 mm[Hg] Arline Clem Hoy Work Phone: [facility] [address] DO Work Phone: 06-20-2022 16:04-0500 Body temperature 97 [degF] Jose Francisco Broussard MD Work Phone: [facility] 06-20-2022 16:04-0500 Body weight 80.92 kg Jose Francisco Broussard MD Work Phone: [facility] 06-20-2022 16:04-0500 Diastolic blood pressure 88 mm[Hg] Jose Francisco Broussard MD Work Phone: [facility] 06-20-2022 16:04-0500 Heart rate 70 /min Jose Francisco Broussard MD Work Phone: [facility] 06-20-2022 16:04-0500 Respiratory rate 16 /min Jose Francisco Broussard MD Work Phone: [facility] 06-20-2022 16:04-0500 SaO2% (BldA) [Mass fraction] 98 % Jose Francisco Broussard MD Work Phone: [facility] 06-20-2022 16:04-0500 Systolic blood pressure 143 mm[Hg] Jose Francisco Broussard MD Work Phone: [facility] 06-07-2022 13:21-0500 Body temperature 97.59 [degF] CALVIN Guzman MD Work Phone: [facility] 06-07-2022 13:21-0500 Body weight 82.1 kg CALVIN Guzman MD Work Phone: [facility] 06-07-2022 13:21-0500 Diastolic blood pressure 89 mm[Hg] CALVIN Guzman MD Work Phone: [facility] 06-07-2022 13:21-0500 Heart rate 57 /min CALVIN Guzman MD Work Phone: [facility] 06-07-2022 13:21-0500 Respiratory rate 18 /min CALVIN Guzman MD Work Phone: [facility] 06-07-2022 13:21-0500 SaO2% (BldA) [Mass fraction] 99 % CALVIN Guzman MD Work Phone: [facility] 06-07-2022 13:21-0500 Systolic blood pressure 169 mm[Hg] CALVIN Guzman MD Work Phone: [facility] 03-22-2022 13:09-0500 Body temperature 97.39 [degF] CALVIN Guzman MD Work Phone: [facility] 03-22-2022 13:09-0500 Body weight 81.65 kg CALVIN Guzman MD Work Phone: [facility] 03-22-2022 13:09-0500 Diastolic blood pressure 64 mm[Hg] CALVIN Guzman MD Work Phone: [facility] 03-22-2022 13:09-0500 Heart rate 56 /min CALVIN Guzman MD Work Phone: [facility] 03-22-2022 13:09-0500 Respiratory rate 18 /min CALVIN Guzman MD Work Phone: [facility] 03-22-2022 13:09-0500 SaO2% (BldA) [Mass fraction] 97 % CALVIN Guzman MD Work Phone: [facility] 03-22-2022 13:09-0500 Systolic blood pressure 125 mm[Hg] CALVIN Guzman MD Work Phone: [facility] Encounters Encounter Date Encounter Type Care Provider Facility Start: 06-06-2024 End: 06-06-2024 Telephone encounter Christiano Cardenas APRN.CNP Work Phone: [facility] Comment on above: Lab Orders Start: 06-04-2024 End: 06-04-2024 ambulatory ARLINE Clem KWESI Facility:[facility] Start: 06-04-2024 End: 06-04-2024 Subsequent hospital visit by physician Arrival Time Radiology Work Phone: Radiology Pet CT Comment on above: Malignant neoplasm o f prostate (HCC) [C61] Start: 05-22-2024 End: 05-22-2024 ambulatory Willard MONDRAGON Facility:[facility] Start: 05-22-2024 End: 05-22-2024 Patient encounter procedure Willard MONDRAGON [facility] General Surgery [place] Start: 05-15-2024 End: 05-15-2024 Patient encounter procedure Arline Orosco MD Work Phone: [facility] Path [facility] [place] [facility] Start: 05-15-2024 End: 05-15-2024 ambulatory Arline Clem Kwesi Facility:[facility] Start: 04-26-2024 End: 04-26-2024 Bamboo flowsheet Oneil Castro DPM Work Phone: [facility] Start: 04-26-2024 End: 04-26-2024 Bamboo flowsheet Oneil Castro DPM Work Phone: [facility] Start: 04-26-2024 End: 04-26-2024 Office outpatient visit 15 minutes Oneil Castro DPM Work Phone: [facility] Comment on above: Onychomycosis (Prima ry Dx); Peripheral arterial disease (CMS/HCC); Corns and callosities; 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 Start: 04-26-2024 End: 04-26-2024 ambulatory ONEIL CASTRO Not Available Start: 04-19-2024 ambulatory Willard AMESCorky Facility:[facility] Start: 04-09-2024 End: 04-09-2024 Refill Jose Francisco [...] Dx) Start: 02-15-2024 End: 02-15-2024 Telephone encounter Liv Guzman MD Work Phone: [facility] Start: 02-12-2024 End: 02-12-2024 ambulatory ARLINE OROSCO Facility:[facility] Start: 01-10-2024 End: 01-10-2024 [facility] Start: 12-20-2023 End: 12-20-2023 ambulatory Lab/[place] [...] End: 12-19-2023 Evaluation and management of inpatient [facility] Start: 12-18-2023 End: 12-18-2023 ambulatory [facility] Start: 12-14-2023 End: 12-14-2023 ambulatory [facility] Facility:[facility] Start: 12-13-2023 Telephone encounter Umer gentile RN Work Phone: Hematology/Oncology Comment on above: Care Coordination (L abs) Start: 12-05-2023 End: 12-05-2023 ambulatory [facility] Start: 11-14-2023 End: 11-14-2023 ambulatory MD Arline Orosco Work Phone: [facility] Work Phone: Start: 11-14-2023 End: 11-14-2023 Patient encounter procedure MD Arline Orosco Work Phone: [facility] Vascular Surgery Work Phone: Start: 10-17-2023 Telephone encounter Daniel Alonzo Hematology/Oncology Comment on above: Results Start: 10-16-2023 End: 10-16-2023 ambulatory [facility] Facility:[facility] Start: 08-30-2023 Refill Jose Francisco Broussard MD Work Phone: Hematology/Oncology Comment on above: Refill Request Start: 08-17-2023 End: 08-17-2023 ambulatory Jose Francisco Broussard MD Work Phone: Hematology/Oncology Comment on above: Prostate cancer (HCC ) (Primary Dx); Osteopenia of multiple sites Start: 08-17-2023 End: 08-17-2023 Patient encounter procedure Jose Francisco Broussard MD Work Phone: [facility] Comment on above: Prostate cancer (HCC ) (Primary Dx) Start: 08-15-2023 End: 08-15-2023 ambulatory [facility] Facility:[facility] Start: 08-07-2023 Telephone encounter Jose Francisco au MD Work Phone: Hematology/Oncology Comment on above: Lab Orders Start: 07-21-2023 End: 07-21-2023 ambulatory [facility] Facility:[facility] Start: 07-21-2023 End: 07-21-2023 Patient encounter procedure Lola S Tiffany OD Work Phone: Ophthalmology Comment on above: Hypertropia of right eye (Primary Dx); Pseudophakia of both eyes; PVD (posterior vitreous detachment), both eyes Start: 07-04-2023 End: 07-04-2023 Evaluation and management of inpatient LEROY SHAW [facility] Start: 07-03-2023 End: 07-03-2023 ambulatory [facility] Pat Phone Call Provider 1 [facility] - Pre Admit Start: 07-03-2023 End: 07-03-2023 ambulatory [facility] Start: 06-28-2023 End: 06-28-2023 ambulatory [facility] Ambulatory Start: 06-26-2023 End: 06-26-2023 ambulatory Lab/[facility] [place] Ernesto Work Phone: Hematology/Oncology Comment on above: Prostate cancer (HCC ) (Primary Dx); Osteopenia of multiple sites Start: 06-26-2023 End: 06-26-2023 Patient encounter procedure Jose Francisco Broussard MD Work Phone: [facility] Start: 06-23-2023 End: 06-23-2023 ambulatory [facility] Facility:[facility] Start: 05-12-2023 End: 05-12-2023 Subsequent hospital visit by physician Arrival Time Radiology Work Phone: Radiology Pet CT Comment on above: Malignant neoplasm o f prostate (HCC) [C61] Start: 04-10-2023 Telephone encounter Liv Guzman MD Work Phone: Cancer [facility]ts Comment on above: Nm Pet Request Start: 03-27-2023 End: 03-27-2023 ambulatory Skin Biopsy Work Phone: Neurology Start: 03-27-2023 End: 03-27-2023 Patient encounter procedure Skin Biopsy Work Phone: [facility] Start: 03-27-2023 End: 03-27-2023 ambulatory Autonomic Main Work Phone: Neurology Start: 03-27-2023 End: 03-27-2023 Patient encounter procedure Autonomic 1 Neur Main Work Phone: [facility] Start: 02-23-2023 End: 02-24-2023 Patient encounter procedure Liv Guzman MD Work Phone: Radiation Oncology Comment on above: History of prostate cancer (Primary Dx); Prostate cancer (HCC) Start: 02-15-2023 End: 02-16-2023 ambulatory BARB KIRAN Facility:[facility] Start: 12-28-2022 Telephone encounter Umer gentile RN Work Phone: Hematology/Oncology Comment on above: Care Coordination (R adiation Appointment) Start: 12-26-2022 End: 12-27-2022 ambulatory Lab/Port Christiano Reeder Work Phone: Hematology/Oncology Comment on above: Osteopenia of multip le sites (Primary Dx); Prostate cancer (HCC) Start: 12-07-2022 End: 12-07-2022 Patient encounter procedure Manny Meza MD Work Phone: Urology Comment on above: Malignant neoplasm o f prostate (HCC) Start: 12-07-2022 ambulatory Manny Meza MD Work Phone: Urology Start: 11-24-2022 End: 11-24-2022 Patient encounter procedure G Fox Guzman MD Work Phone: Radiation Oncology Comment on above: Malignant neoplasm o f prostate (HCC) (Primary Dx) Start: 10-18-2022 Office outpatient vi sit 25 minutes Arline Orosco Work Phone: [facility] 600 DO Work Phone: Start: 10-18-2022 ambulatory Baldo Gifford Facilit y: Start: 10-11-2022 AUDIT Arline Orosco Work Phone: [facility] 250 DO Work Phone: Start: 09-22-2022 End: 09-22-2022 ambulatory Jose Francisco Broussard MD Work Phone: Hematology/Oncology Comment on above: Prostate cancer (HCC ) (Primary Dx); Osteopenia of multiple sites; Primary hypertension Start: 09-22-2022 End: 09-22-2022 Patient encounter procedure Jose Francisco Broussard MD Work Phone: [facility] Start: 09-19-2022 Chart Update Arline Orosco Work Phone: [facility] 250 DO Work Phone: Start: 09-02-2022 End: 09-02-2022 ambulatory MD Arline Orosco Work Phone: [facility] Work Phone: Start: 09-02-2022 End: 09-02-2022 Patient encounter procedure MD Arline Orosco Work Phone: [facility]-Ultrasound Main [place] Work Phone: Start: 09-01-2022 Office consultation new/estab patient 80 min Arline Orosco Work Phone: [facility] 250 DO Work Phone: Start: 09-01-2022 ambulatory Baldo Doss y: Start: 08-15-2022 ambulatory ARLINE OROSCO Facility: [facility] Start: 08-15-2022 End: 08-15-2022 Subsequent hospital visit by physician [facility] 2 (I-Stat/3t) Work Phone: Radiology Comment on above: Cancer of prostate w /med recur risk (T2b-c or [place] 7 or PSA 10-20) (HCC) [C61] Start: 08-02-2022 End: 08-02-[address] ARLINE OROSCO . Facility:[facility] Start: 07-31-2022 End: 08-01-2022 ambulatory RYLEE JOHN Facility:[facility] Start: 07-25-2022 Telephone encounter Teresa Angelo [...] bilateral Start: 07-13-2022 Telephone encounter Darlene Waterman [facility] Comment on above: Medication Problem Start: 07-07-2022 End: 07-07-2022 ambulatory Lab/Port Christiano Orozco Work Phone: Hematology/Oncology Comment on above: Prostate cancer (HCC ) (Primary Dx) Start: 06-27-2022 Telephone encounter Hien rBunner [facility] Work Phone: Hematology/Oncology Comment on above: Medication Update (F LAO patient deciding to move forward with Xtandi beyond 14 day free trial.) Start: 06-22-2022 Telephone encounter Hien Brunner [facility] Work Phone: [facility] Comment on above: Medication Update (X tandi) Start: 06-21-2022 Telephone encounter Nadira chapa [facility] Work Phone: [facility] Comment on above: Medication Authoriza tion (Xtandi) Start: 06-20-2022 End: 06-20-2022 ambulatory Jose Francisco Broussard MD Work Phone: Hematology/Oncology Comment on above: Prostate cancer (HCC ) (Primary Dx) Start: 06-20-2022 End: 06-20-2022 Patient encounter procedure Jose Francisco Broussard MD Work Phone: [facility] Start: 06-16-2022 Chart abstracting Jose Francisco lynne MD Work Phone: Hematology/Oncology Start: 06-07-2022 End: 06-07-2022 Patient encounter procedure Liv Guzman MD Work Phone: Radiation Oncology Comment [...] OROSCO . Facility:[facility] Start: 04-19-2022 Telephone encounter Liv Guzman MD Work Phone: Cancer [facility] Comment on above: Nm Pet Request Start: 03-24-2022 End: 03-25-[address] ARLINE OROSCO . Facility:[facility] Start: 03-22-2022 End: 03-22-2022 Patient encounter procedure Liv Guzman MD Work Phone: Radiation Oncology Comment on above: History of prostate cancer (Primary Dx); Cancer of prostate w/med recur risk (T2b-c or [place] 7 or PSA 10-20) (HCC) Start: 03-18-2022 End: 03-19-[address] ARLINE OROSCO . Facility:[facility] Start: 03-14-2022 End: 03-15-[address] ARLINE OROSCO . Facility:[facility] Start: 11-18-2021 End: 11-19-2021 ambulatory LEROY SHAW Facility:[facility] Start: 11-17-2021 End: 11-17-[address] ARLINE OROSCO . Facility:[facility] Start: 09-07-2021 End: 09-07-[address] ARLINE OROSCO . Facility: Start: 08-23-2021 End: 08-23-2021 Patient encounter procedure Lola Allen OD Work Phone: Ophthalmology Comment on above: Hypertropia of right eye (Primary Dx); Diplopia; Pseudophakia of both eyes; Monocular diplopia of right eye Start: 06-23-2021 Preprocedural examination done Lola Kochedwige OD Work Phone: [facility] Work Phone: Start: 02-28-2017 End: 03-01-2017 Ambulatory DEFAULT PHYSICIAN Facility:[facility] Procedures Date Procedure Procedure Detail Performing Clinician Start: 06-04-[address] atten uation skull base mid-thigh Liv Guzman MD Work Phone: Start: 12-05-2023 Follow-up visit Follow-up LEROY SHAW Start: 11-14-2023 Doppler ultrasonogra phy of bilateral carotid arteries MD Arline Orosco Work Phone: Start: 05-12-[address] atten uation skull base mid-thigh James House MD Work Phone: Start: 12-07-2022 Urnls dip stick/tabl et reagent auto microscopy Bulk Order Provider Start: 08-15-2022 Mri pelvis w/o & w/c ontrast material Liv Guzman MD Work Phone: Start: 06-02-[address] atten uation skull base mid-thigh Lvi Guzman MD Work Phone: Start: 06-02-2022 Assay of prostate sp ecific antigen total Liv Guzman MD Work Phone: Start: 03-14-2022 PSA screening LEROY CORRIGAN Comment on above: Performed By: #### C MP, CMADM #### [facility] [address] [address] [address] Samantha Samuels Start: 11-18-2021 PSA screening LEROY CORRIGAN Comment on above: Performed By: #### C MP, CMADM #### [facility] [address] [address] [address] Samantha Samuels Start: 03-15-2021 Adult depression scr eening assessment Lola Paddychidi OD Work Phone: Start: 11-18-2019 Colonoscopy Lola Tamia kiranedwige OD Work Phone: Start: 08-27-2018 Lipid 1996 panel - S beverly or Plasma NA Megan GUTIERREZ Work Phone: Start: 08-09-2017 Colonoscopy Willard NI LL Appendectomy Arline M Hoy Work Phone: Appendectomy Willard NILL Biopsy of bladder Willard NI LL Biopsy of prostate Willard N ILL Colonoscopy Willard NILL Cystoscopy Willard NILL Cystoscopy Willard NILL Cystoscopy and litho tripsy of calculus of bladder using laser Willard NILL Excisional biopsy Willard NI LL Extraction of cataract Hernan lester NILL Hernia repair Arline M Hoy Work Phone: History of hernia repair Emery hael NILL Procedure on prostate Alejandro s Clem Hoy Work Phone: Repair of left ingui nal hernia Willard NILL Scrotum and testicle operation Arline M Hoy Work Phone: Tonsillectomy Willard MONDRAGON Total colonoscopy Arline Orosco Work Phone: Plan of Treatment Date Care Activity Detail Author Start: 02-11-2027 Diabetes Screening Diabetes Screendc g [facility] Start: 12-13-2026 Diabetes Screening Diabetes Screenin g [facility] Start: 10-15-2026 [facility] Start: 08-14-2026 Diabetes Screening Diabetes Screendc g [facility] Start: 06-23-2026 Diabetes Screening Diabetes Screendc g [facility] Start: 02-15-2026 Diabetes Screening Diabetes Screendc liv [facility] Start: 02-06-2026 DTaP,Tdap and Td Vaccines (2 - Td or Tdap) DTaP,Tdap and Td Vaccines (2 - Td or Tdap) [facility] Start: 02-06-2026 Urine microalbumin profile [facility] Start: 09-20-2025 DIABETES SCREEN DIABETES SCREEN [facility] Start: 07-07-2025 DIABETES SCREEN DIABETES SCREEN [facility] Start: 08-16-2024 BP Controlled (<130/80) BP Con trolled (<130/80) [facility] Start: 07-25-2024 End: 07-25-2024 Patient encounter procedure 07/25/2024 11:00 AM EDT Office Visit [facility] [address] [place] [id number] Oneil Castro DPM [address] [place] [address] [facility] Start: 07-22-2024 End: 07-22-2024 Patient encounter procedure 07/22/2024 1:00 PM EDT Office Visit [facility] [address] [place] [address] Lola Allen, [address] [place] [address] Annual Full Eye Exam Ophthalmology Comment on above: Annual Full Eye Exam Start: 07-04-2024 Tobacco Screening Tobacco Screening [facility] Start: 06-26-2024 BP Controlled (<130/80) BP Con trolled (<130/80) [facility] Start: 06-23-2024 DIABETES SCREEN DIABETES SCREEN [facility] Start: 06-20-2024 End: 06-20-2024 ambulatory Hematology/Oncology Comment on above: 4mth f/u lupron and prolia Start: 06-13-2024 End: 06-13-2024 Patient encounter procedure 06/13/2024 11:00 AM EST Office Visit [facility] [address] [place] [address] [place] [address] 4mth f/u [facility] Comment on above: 4mth f/u Start: 06-06-2024 End: 09-05-2024 CBC W Auto Differential panel - Blood COMPLETE BLOOD COUNT AND DIFFERENTIAL Lab Routine Malignant neoplasm of prostate (HCC) Expected: 06/06/2024, Expires: 09/05/2024 [facility] Work Phone: Comment on above: Expected: 06/06/2024 , Expires: 09/05/2024 Start: 06-06-2024 End: 09-05-2024 Comprehensive metabolic 2000 panel - Serum or Plasma COMPREHENSIVE METABOLIC PANEL Lab Routine Malignant neoplasm of prostate (HCC) Expected: 06/06/2024, Expires: 09/05/2024 [facility] Comment on above: Expected: 06/06/2024 , Expires: 09/05/2024 Start: 06-06-2024 End: 09-05-2024 Prostate specific Ag [Mass/volume] in Serum or Plasma PROSTATE-SPECIFIC ANTIGEN DIAGNOSTIC Lab Routine Malignant neoplasm of prostate (HCC) Expected: 06/06/2024, Expires: 09/05/2024 [facility] Comment on above: Expected: 06/06/2024 , Expires: 09/05/2024 Start: 05-17-2024 End: 03-16-2025 PET+CT Guidance for localization of tumor of Whole body-- W [id number] IV NM PET/CT PROSTATE WHOLE BODY IMAGING Radiology Routine Malignant neoplasm of prostate (HCC) Expected: 05/17/2024, Expires: 03/16/2025 [facility] Work Phone: Comment on above: Expected: 05/17/2024 , Expires: 03/16/2025 Start: 05-15-2024 [facility] Start: 05-15-2024 Advance Directive Discussion Advance Directive Discussion [facility] Start: 04-26-2024 End: 04-26-2024 Patient encounter procedure 04/26/2024 10:30 AM EST Office Visit [facility] [address] [place] [phone] Oneil Castro DPM [address] [place] [address] Arrived [facility] Comment on above: Arrived Start: 04-10-2024 BP Controlled (<130/80) BP Con trolled (<130/80) [facility] Start: 02-24-2024 BP Controlled (<130/80) BP Con trolled (<130/80) [facility] Start: 02-15-2024 End: 02-15-2024 Follow-up encounter 02/15/2024 2:15 PM EDT Visit (SP) Office Hematology/Oncology [address] [place] [address] Jose Francisco Broussard MD [address] [facility] [address] 8 week follow up Hematology/Oncology Comment on above: 8 week follow up Start: 02-15-2024 End: 02-15-2024 Patient encounter procedure Radiation Oncology Comment on above: 6 month rv Start: 02-12-2024 End: 02-12-2024 Patient encounter procedure 02/12/2024 10:30 AM EDT Office Visit [facility] [address] [place] [address] labs a couple of days prior to follow up [facility] Comment on above: labs a couple of day s prior to follow up Start: 01-18-2024 Adult BMI Screening Adult BMI Screen [facility] Start: 01-14-2024 Covid-19 Vaccine ( season) Covid-19 Vaccine ( season) [facility] Start: 01-14-2024 Covid-19 Vaccine ( season) Covid-19 Vaccine () [facility] Start: 01-14-2024 Influenza vaccination [facility] Start: 12-27-2023 BP CONTROLLED (<130/80) BP CON TROLLED (<130/80) [facility] Start: 12-20-2023 End: 03-20-2024 CBC W Auto Differential panel - Blood COMPLETE BLOOD COUNT AND DIFFERENTIAL Lab Routine Prostate cancer (HCC) Expected: 12/20/2023, Expires: 03/20/2024 [facility] Comment on above: Expected: 12/20/2023 , Expires: 03/20/2024 Start: 12-20-2023 End: 03-20-2024 Comprehensive metabolic 2000 panel - Serum or Plasma COMPREHENSIVE METABOLIC PANEL Lab Routine Prostate cancer (HCC) Expected: 12/20/2023, Expires: 03/20/2024 [facility] Work Phone: Comment on above: Expected: 12/20/2023 , Expires: 03/20/2024 Start: 12-20-2023 End: 12-20-2023 Follow-up encounter Hematology/Oncology Comment on above: 4 month follow up la b Lupron + Xgeva Start: 12-20-2023 End: 03-20-2024 Parathyrin related protein [Moles/volume] in Serum or Plasma PTH RELATED PEPTIDE Lab Routine Prostate cancer (HCC) Pain of right hip Osteopenia of multiple sites Encounter for screening for osteoporosis Hypercalcemia Expected: 12/20/2023, Expires: 03/20/2024 [facility] Comment on above: Expected: 12/20/2023 , Expires: 03/20/2024 Start: 12-20-2023 End: 03-20-2024 Parathyrin.intact [Mass/volume] in Serum or Plasma PTH INTACT Lab Routine Prostate cancer (HCC) Pain of right hip Osteopenia of multiple sites Encounter for screening for osteoporosis Hypercalcemia Expected: 12/20/2023, Expires: 03/20/2024 [facility] Comment on above: Expected: 12/20/2023 , Expires: 03/20/2024 Start: 12-20-2023 End: 03-20-2024 Prostate specific Ag [Mass/volume] in Serum or Plasma PROSTATE-SPECIFIC ANTIGEN DIAGNOSTIC Lab Routine Prostate cancer (HCC) Expected: 12/20/2023, Expires: 03/20/2024 [facility] Comment on above: Expected: 12/20/2023 , Expires: 03/20/2024 Start: 12-14-2023 End: 12-14-2023 Follow-up encounter Hematology/Oncology Comment on above: 4 month follow up la b Lupron + Xgeva Start: 12-14-2023 End: 12-14-2023 Patient encounter procedure 12/14/2023 10:15 AM EDT Office Visit [facility] [address] [place] [address] [place] [address] 4 month follow up lab Lupron + Xgeva [facility] Comment on above: 4 month follow up la b Lupron + Xgeva Start: 12-13-2023 End: 03-13-2024 Prostate specific Ag [Mass/volume] in Serum or Plasma PROSTATE-SPECIFIC ANTIGEN DIAGNOSTIC Lab Routine Prostate cancer (HCC) Expected: 12/13/2023, Expires: 03/13/2024 [facility] Work Phone: Comment on above: Expected: 12/13/2023 , Expires: 03/13/2024 Start: 12-08-2023 BP CONTROLLED (<130/80) BP CON TROLLED (<130/80) [facility] Start: 11-25-2023 BP CONTROLLED (<130/80) BP CON TROLLED (<130/80) [facility] Start: 10-18-2023 End: 01-17-2024 Basic metabolic 2000 panel - Serum or Plasma BASIC METABOLIC PNL Lab Routine Prostate cancer (HCC) Expected: 10/18/2023 (Approximate), Expires: 01/17/2024 [facility] Work Phone: Comment on above: Expected: 10/18/2023 (Approximate), Expires: 01/17/2024 Start: 10-18-2023 End: 01-17-2024 CBC W Auto Differential panel - Blood CBC + DIFF Lab Routine Prostate cancer (HCC) Expected: 10/18/2023 (Approximate), Expires: 01/17/2024 [facility] Work Phone: Comment on above: Expected: 10/18/2023 (Approximate), Expires: 01/17/2024 Start: 10-18-2023 End: 01-17-2024 Prostate specific Ag [Mass/volume] in Serum or Plasma PSA/PROSTSPECAG DIAG Lab Routine Prostate cancer (HCC) Expected: 10/18/2023 (Approximate), Expires: 01/17/2024 [facility] Work Phone: Comment on above: Expected: 10/18/2023 (Approximate), Expires: 01/17/2024 Start: 09-23-2023 BP CONTROLLED (<130/80) BP CON TROLLED (<130/80) [facility] Start: 08-28-2023 Lipid 1996 panel - S beverly or Plasma Lipid Screening [facility] Start: 08-28-2023 Lipid panel Lipid Screening [facility] Start: 08-28-2023 LIPID SCREEN LIPID SCREEN [facility] Start: 08-15-2023 End: 11-14-2023 Basic metabolic 2000 panel - Serum or Plasma BASIC METABOLIC PNL Lab Routine Prostate cancer (HCC) Expected: 08/15/2023, Expires: 11/14/2023 [facility] Work Phone: Comment on above: Expected: 08/15/2023 , Expires: 11/14/2023 Start: 08-15-2023 End: 11-14-2023 CBC W Auto Differential panel - Blood CBC + DIFF Lab Routine Prostate cancer (HCC) Expected: 08/15/2023, Expires: 11/14/2023 [facility] Work Phone: Comment on above: Expected: 08/15/2023 , Expires: 11/14/2023 Start: 08-15-2023 End: 11-14-2023 Prostate specific Ag [Mass/volume] in Serum or Plasma PSA/PROSTSPECAG DIAG Lab Routine Prostate cancer (HCC) Expected: 08/15/2023, Expires: 11/14/2023 [facility] Work Phone: Comment on above: Expected: 08/15/2023 , Expires: 11/14/2023 Start: 07-07-2023 BP CONTROLLED (<130/80) BP CON TROLLED (<130/80) [facility] Start: 05-26-2023 End: 03-24-2024 NM PET/CT PROSTATE WHOLE BODY IMAGING NM PET/CT PROSTATE WHOLE BODY IMAGING Radiology Routine Prostate cancer (HCC) Expected: 05/26/2023, Expires: 03/24/2024 [facility] Work Phone: Comment on above: Expected: 05/26/2023 , Expires: 03/24/2024 Start: 05-15-2023 Advance Directive Discussion Advance Directive Discussion [facility] Start: 05-15-2023 Behavioral Health Screening Behavioral Health Screening [facility] Start: 05-15-2023 Depression Assessment Depression Ass essment [facility] Start: 03-22-2023 BP CONTROLLED (<130/80) BP CON TROLLED (<130/80) [facility] Start: 03-22-2023 End: 05-22-2023 Prostate specific Ag [Mass/volume] in Serum or Plasma PSA/PROSTSPECAG DIAG Lab Routine History of prostate cancer Expected: 03/22/2023, Expires: 05/22/2023 [facility] Work Phone: Comment on above: Expected: 03/22/2023 , Expires: 05/22/2023 Start: 02-08-2023 FUV, Provider: Baldo Gifford, Status: Pen, Time: 9:30 AM FUV, Provider: Baldo Gifford, Status: Pen, Time: 9:30 AM [facility] 600 DO Work Phone: Start: 01-13-2023 Covid-19 Vaccine ( season) Covid-19 Vaccine ( season) [facility] Start: 01-13-2023 Influenza vaccination [facility] Start: 12-29-2022 RSV Vaccine (1 - 1-d ose 75+ series) RSV Vaccine (1 - 1-dose 75+ series) [facility] Start: 12-28-2022 End: 02-27-2023 CBC W Auto Differential panel - Blood CBC + DIFF Lab Routine Osteopenia of multiple sites Prostate cancer (HCC) Expected: 12/28/2022 (Approximate), Expires: 02/27/2023 [facility] Work Phone: Comment on above: Expected: 12/28/2022 (Approximate), Expires: 02/27/2023 Start: 12-28-2022 End: 02-27-2023 Comprehensive metabolic 2000 panel - Serum or Plasma COMP METABOLIC PANEL Lab Routine Osteopenia of multiple sites Prostate cancer (HCC) Expected: 12/28/2022 (Approximate), Expires: 02/27/2023 [facility] Work Phone: Comment on above: Expected: 12/28/2022 (Approximate), Expires: 02/27/2023 Start: 12-28-2022 End: 02-27-2023 Prostate specific Ag [Mass/volume] in Serum or Plasma PSA/PROSTSPECAG DIAG Lab Routine Osteopenia of multiple sites Prostate cancer (HCC) Expected: 12/28/2022 (Approximate), Expires: 02/27/2023 [facility] Work Phone: Comment on above: Expected: 12/28/2022 (Approximate), Expires: 02/27/2023 Start: 10-18-2022 FUV, Provider: Baldo Gifford, Status: Terry, Time: 9:20 AM FUV, Provider: Baldo Gifford, Status: Pen, Time: 9:20 AM [facility] 250 DO Work Phone: Start: 10-06-2022 FUV, Provider: Baldo Gifford, Status: Terry, Time: 3:10 PM FUV, Provider: Baldo Gifford, Status: Trery, Time: 3:10 PM [facility] 250 DO Work Phone: Start: 09-02-2022 Doppler ultrasonogra phy of bilateral carotid arteries US carotid doppler [facility] Start: 09-02-2022 US.doppler Carotid arteries - bilateral [facility] Start: 06-23-2022 BP CONTROLLED (<130/80) BP CON TROLLED (<130/80) [facility] Start: 05-22-2022 End: 04-21-2023 NM PET/CT PROSTATE WHOLE BODY IMAGING NM PET/CT PROSTATE WHOLE BODY IMAGING Radiology Routine History of prostate cancer Cancer of prostate w/med recur risk (T2b-c or Kita 7 or PSA 10-20) ([facility]) Expected: 05/22/2022, Expires: 04/21/2023 [facility] Work Phone: Comment on above: Expected: 05/22/2022 , Expires: 04/21/2023 Start: 05-22-2022 End: 07-22-2022 Prostate specific Ag [Mass/volume] in Serum or Plasma PSA/PROSTSPECAG DIAG Lab Routine Cancer of prostate w/med recur risk (T2b-c or Kita 7 or PSA 10-20) ([facility]) Expected: 05/22/2022, Expires: 07/22/2022 [facility] Work Phone: Comment on above: Expected: 05/22/2022 , Expires: 07/22/2022 Start: 05-22-2022 End: 07-22-2022 Testosterone [Mass/volume] in Serum or Plasma TESTOSTERONE TOTAL Lab Routine Cancer of prostate w/med recur risk (T2b-c or [place] 7 or PSA 10-20) ([facility]) Expected: 05/22/2022, Expires: 07/22/2022 [facility] Work Phone: Comment on above: Expected: 05/22/2022 , Expires: 07/22/2022 Start: 05-15-2022 ADVANCE DIRECTIVE DISCUSSION ADVANCE DIRECTIVE DISCUSSION [facility] Start: 05-15-2022 DEPRESSION ASSESSMENT DEPRESSION ASS ESSMENT [facility] Start: 03-15-2022 Adult depression screening assessment DEPRESSION SCREENING [facility] Start: 05-15-2021 ADVANCE DIRECTIVE DISCUSSION ADVANCE DIRECTIVE DISCUSSION [facility] Start: 05-15-2021 DEPRESSION ASSESSMENT DEPRESSION ASS ESSMENT [facility] Start: 11-17-2020 Colonoscopy COLONOSCOPY [facility] Start: 11-17-2020 COLORECTAL CANCER SCREENING COLORECTAL CANCER SCREENING [facility] Start: 11-17-2020 Screening for malign ant neoplasm of colon [facility] Start: 12-29-2012 Fall Risk Screening Fall Risk Screen [facility] Start: 2007 RSV Vaccine (1 - 1-d ose 60+ series) RSV Vaccine (1 - 1-dose 60+ series) [facility] Start: 12-29-2002 Influenza vaccination LUNG CANCER [facility] Start: 12-29-1997 Influenza vaccination LUNG CANCER [facility] Start: 12-29-1997 Screening for malign ant neoplasm of lung Lung Cancer Screening [facility] Start: 12-29-1992 COLOGUARD (FIT-DNA) COLOGUARD (FIT-D NA) [facility] Start: 12-29-[address] COLONOGRAPHY [facility] Start: 12-29-1992 FECAL OCCULT BLOOD FECAL OCCULT BLOO D [facility] Start: 12-29-1992 Screening for malign ant neoplasm of colon [facility] Start: 12-29-1992 [facility] Start: 12-29-1977 Zoledronic acid therapy ALPHA- 1 ANTITRYPSIN DEFICIENCY SCREENING [facility] Start: 12-29-1965 ANNUAL PCP TEAM MANAGER GRAPHIC AZAR DISEASE VISIT ANNUAL PCP TEAM CHRONIC DISEASE VISIT [facility] Start: 12-29-1965 Anxiety Screening Anxiety Screening [facility] Start: 12-29-1965 BP CONTROLLED (<130/80) BP CON TROLLED (<130/80) [facility] Start: 12-29-1965 Depression Screening Depression Scre ing [facility] Start: 12-29-1965 HEPATITIS C SCREENING HEPATITIS C [facility] Start: 12-29-1965 Hepatitis C screening Hepatitis C [facility] Start: 12-29-1965 SPIROMETRY SPIROMETRY [facility] Start: 1959 Depression Screening Depression Scre ening [facility] Start: 12-29-1952 COVID-19 VACCINE (1) COVID-19 VACCIN E (1) [facility] Start: 07-01-1948 COVID-19 VACCINE (#1) COVID-19 VACCI NE (#1) [facility] Start: 1945 ABDOMINAL AORTIC ANEURYSM SCREENING ABDOMINAL AORTIC ANEURYSM SCREENING [facility] Start: 1945 Medicare Annual Well ness Visit Medicare Annual Wellness Visit [facility] Start: 1945 Tobacco Counseling Tobacco Counselin g [facility] End: 01-18-2025 DXA Skeletal system.axial Views for bone density DXA-AXIAL SKELETON Radiology Routine Prostate cancer (HCC) Pain of right hip Osteopenia of multiple sites 1 Occurrences starting 12/20/2023 until 01/18/2025 [facility] Comment on above: 1 Occurrences starti ng 12/20/2023 until 01/18/2025 End: 07-07-2023 Mri pelvis w/o & w/contrast material MRI PROSTATE WO/W IVCON Radiology Routine Cancer of prostate w/med recur risk (T2b-c or Kita 7 or PSA 10-20) ([facility]) 1 Occurrences starting 06/07/2022 until 07/07/2023 [facility] [employer] Work Phone: Comment on above: 1 Occurrences starti ng 06/07/2022 until 07/07/2023 Prostate specific Ag [Mass/volume] in Serum or Plasma PROSTATE-SPECIFIC ANTIGEN DIAGNOSTIC Lab Routine Prostate cancer (HCC) 12/14/2023 12:57 PM EDT [facility] End: 01-18-2025 XR Hip - right AP and Lateral XR HIP 2V AP/LAT RIGHT (AK,FL,ME,UN) Radiology Routine Prostate cancer (HCC) Pain of right hip 1 Occurrences starting 12/20/2023 until 01/18/2025 [facility] Comment on above: 1 Occurrences starti ng 12/20/2023 until 01/18/2025 End: 01-18-2025 XR Pelvis Inlet and Outlet XR PELVIS 2V INLET/OUTLET Radiology Routine Prostate cancer (HCC) Pain of right hip 1 Occurrences starting 12/20/2023 until 01/18/2025 [facility] Comment on above: 1 Occurrences starti ng 12/20/2023 until 01/18/[facility] Immunizations Immunization Date Immunization Notes Care Provider [facility] 02-12-2022 influenza nasal, unspecified formulation CALVIN Guzman MD Work Phone: [facility] 02-12-2022 influenza virus vaccine, unspecified formulation Arline Orosco Work Phone: [facility] 250 DO Work Phone: 02-18-2021 Fluzone High-Dose Quadrivalent 0.7 ML Intramuscular Suspension Prefilled Syringe Arline Orosco Work Phone: [facility] 02-12-2021 seasonal influenza, intradermal, preservative free CALVIN Guzman MD Work Phone: [facility] 02-04-2020 influenza nasal, unspecified formulation CALVIN Guzman MD Work Phone: [facility] 02-04-2020 influenza virus vaccine, unspecified formulation Arline Orosco Work Phone: [facility] 250 DO Work Phone: 01-26-2020 influenza, high-dose , quadrivalent vaccine (FLUZONE HIGH DOSE QUADRIVALENT) Lola Loudenslager OD Work Phone: [facility] 01-14-2020 influenza, high dose seasonal, preservative-free Arline Orosco Work Phone: [facility] 02-01-2019 AS03 adjuvant CALVIN Guzman MD Work Phone: [facility] 02-01-2019 Seasonal trivalent influenza vaccine, adjuvanted, preservative free Lola Loudenslager OD Work Phone: [facility] 01-10-2019 zoster vaccine recombinant Lola Loudenslager OD Work Phone: [facility] 10-14-2018 zoster vaccine recombinant Lola Loudenslager OD Work Phone: [facility] 01-29-2018 AS03 adjuvant CALVIN Guzman MD Work Phone: [facility] 01-29-2018 Seasonal trivalent influenza vaccine, adjuvanted, preservative free Lola Loudenslager OD Work Phone: [facility] 02-10-2017 influenza, high dose seasonal, preservative-free Lola Loudenslager OD Work Phone: [facility] 02-10-2017 pneumococcal conjuga te vaccine, 13 valent Lola Loudenslager OD Work Phone: [facility] 03-04-2016 influenza, seasonal, injectable, preservative free CALVIN Guzman MD Work Phone: [facility] 03-04-2016 seasonal influenza, intradermal, preservative free Lola Loudenslager OD Work Phone: [facility] 02-07-2016 influenza, high dose seasonal, preservative-free Lola Loudenslager OD Work Phone: [facility] 02-07-2016 tetanus toxoid, redu mara diphtheria toxoid, and acellular pertussis vaccine, adsorbed Lola Loudenslager OD Work Phone: [facility] 04-16-2014 influenza, high dose seasonal, preservative-free Lola Loudenslager OD Work Phone: [facility] 04-16-2014 pneumococcal polysaccharide vaccine, 23 valent Lola Loudenslager OD Work Phone: [facility] 03-07-2014 pneumococcal polysaccharide vaccine, 23 valent Lola Loudenslager OD Work Phone: [facility] 02-27-2014 influenza, seasonal, injectable, preservative free CALVIN Guzman MD Work Phone: [facility] 02-27-2014 seasonal influenza, intradermal, preservative free Lola Loudenslager OD Work Phone: [facility] 02-20-2013 pneumococcal polysaccharide vaccine, 23 valent Lola Loudenslager OD Work Phone: [facility] Payers Date Payer Category Payer Unknown [id number] 2023 Self-pay [id number] 2021 Medicare (Managed Care) [employer] [employer] [id number] 2018 Unknown 2018 Unknown [employer] MED[employer] HMO [id number] 2018-Present [phone] [id number] [id number] 2016 Medicare [id number] 1959 Unknown [id number] 1947 Unknown [id number] 2.16.840.1.023805.3.579. 2.593 1947 Unknown [id number] 2.16840.1.781776.3.579. 2.593 1947 Unknown [id number] 2.16.840.1.294375.3.579. 2.593 1947 Unknown [id number] 2.16.840.1.283559.3.579. 2.593 1947 Unknown [id number] 2.16.840.1.796042.3.579. 2.593 1947 Unknown [id number] 2.16.840.1.912354.3.579. 2.593 1947 Unknown [id number] 2.16.840.1.123157.3.579. 2.593 1947 Unknown [id number] 2.16.840.1.801431.3.579. 2.593 1947 Unknown [id number] 2.16.840.1.790389.3.579. 2.593 1947 Unknown [id number] 2.16.840.1.335345.3.579. 2.593 1947 Unknown [id number] 2..840.1.182592.3.579. 2.593 1947 Unknown [id number] 2.840.1.957202.3.579. 2.356 1947 Unknown [id number] 2..840.1.080169.3.579. 2.356 1947 Unknown [id number] 2..840.1.729605.3.579. 2.1244 1947 Unknown [id number] 2.840.1.487058.3.579. 2.1286 1947 Unknown [id number] 2.840.1.032289.3.579. 2.128 1947 Unknown [id number] 2..840.1.839576.3.579. 2.1286 1947 Unknown [id number] 2.16.840.1.813623.3.579. 2.128 1947 Unknown [id number] 2.16.840.1.864889.3.579. 2.1286 1947 Unknown [id number] 2.16.840.1.712341.3.579. 2.1286 1947 Unknown [id number] 2.16.840.1.650192.3.579. 2.1259 1947 Unknown [id number] 2.16.840.1.507082.3.579. 2.727 Medicare Medicare [id number] Unknown [employer] BC/BS [id number] Unknown [id number] Unknown [id number] 2.16.840.1.614783.3.579. 2.531 Unknown [id number] 2.16.840.1.492001.3.579. 2.531 Social History Date Type Detail Facility Start: 04-03-2012 End: 02-15-2024 Tobacco smoking status GAIS Smokes tobacco daily [facility] History of tobacco use Cigarette Smoker [facility] Start: 04-03-2012 End: 09-22-2022 Cigarettes smoked current (pack per day) - Reported 1 [facility] Comment on above: 1 PPD; Start: 04-03-2012 End: 02-15-2024 Tobacco use and exposure Smokeless tobacco non-user [facility] Start: 08-23-2021 End: 02-15-2024 Alcohol intake Current non-drinker of alcohol (finding) [facility] Start: 1945 Sex Assigned At Male [facility] Start: 03-12-2022 End: 03-22-2022 Exposure to SARS-CoV-2 (event) Not sure [facility] History of tobacco use Passive smoker [facility] Start: 10-01-2018 End: 10-01-2018 Tobacco smoking status NHIS Smoker (finding) [facility] Start: 09-22-2022 End: 11-24-2022 Tobacco use panel [facility] Adult Depression Screening Assessment 1 [facility] Start: 07-31-2018 Gender identity Identifies as male gender (finding) [facility] Start: 07-31-2018 Sexual orientation Heterosexual (fin ding) [facility] Start: 06-28-2022 Tobacco Comment 1 ppd for 42 y rs not interested [facility] smoking stat us GAIS Tobacco smoking consumption unknown [facility] Start: 1945 Sex assigned at Not on file [facility] Start: 04-26-2024 Alcoholic beverage intake Lifetime non-drinker (finding) [facility] Start: 05-16-2024 Sex Patient sex un known (finding) [facility] Start: 05-22-2024 Tobacco smoking status Heavy t obacco smoker (finding) [facility] Procedure Code Equipment Code Equipment Origin al Text Equipment Identifier Dates Lens Iol Ultrase rt 16.0d - [id number] - [id number] Start: 06-13-2019 Lens Iol Ultrase rt 17.0d - [id number] - [id number] Start: 07-09-2019 Functional Status Date Assessment Result Facility 05-22-2024 Functional Status N/A [facility] Clinical Notes 06-23-2021 to 06-06-2024 Telephone Encounter - Agustin Acevedo - 06/06/2024 7:58 AM ESTTelephone Encounter - Agustin Acevedo - 06/06/2024 7:58 AM Lorraine Kaufman RN - 06/04/2024 11:30 AM ESTPatient Instructions Note Date & Type Note Facility 06-06-2024 Telephone encounter Note Patient is coming in 06/13/24 for lab prior to RV with no orders. Please review and place needed labs. Best regards, Vicky Acevedo MLT [facility] 06-06-2024 Miscellaneous Notes Patient is coming in 06/13/24 for lab prior to RV with no orders. Please review and place needed labs. Vicky Hay MLT documented in this encounter [facility] 06-04-2024 History of Present illness Narrative Radiology Service Progress Note DATE OF SERVICE: June 04, 2024 TIME: 11:28 AM PATIENT WEIGHT: 176LBS PATIENT IDENTITY VERIFICATION COMPLETED USING TWO (2) STANDARD IDENTIFIERS: Name and Date of confirmed by patient verbally. FALL SCREENING: Has the patient had 2 falls in the last year or 1 fall with injury or currently using an Ambulatory Assistive Device (Walker, Cane, Wheelchair, Crutches, etc.)? No PATIENT GENDER DATA: Assigned male at ALLERGIES: Reviewed and unchanged CONTRAST ALLERGY: No EXAM: CT -CONTRAST INDUCED NEPHROPATHY RISK FACTORS: Not applicable CREATININE: Creatinine Date Value Ref Range Status 02/12/2024 1.04 0.73 - 1.22 mg/dL Final 12/14/2023 1.13 0.73 - 1.22 mg/dL Final 10/16/2023 1.12 0.73 - 1.22 mg/dL Final Estimated Glomerular Filtration Rate Date Value Ref Range Status 02/12/2024 74 >=60 mL/min/1.73m Final Comment: Estimated Glomerular Filtration [...] Range Status 06/23/2021 >60 Final P.O.C.T. RESULTS: POC done: Yes, See Lab Tab June 04, 2024 TREATMENT: N/A IV SITE: Ambulatory: A peripheral IV was started in the Left antecubital site with a Angio cath: 22 gauge. IV SITE APPEARANCE: Clean,Dry and Intact SIGNATURE: Lorraine Martinez RN PATIENT NAME: Jm Barrow DATE: June 04, 2024 TIME: 11:28 AM RADIOLOGY SERVICE PROGRESS NOTE SERVICE DATE: 06/04/2024 SERVICE TIME: 11:57 AM PATIENT IDENTITY VERIFICATION COMPLETED USING TWO (2) STANDARD IDENTIFIERS: Name and Date of confirmed by patient verbally POST EXAM PIV STATUS: Discontinued PROCEDURE TYPE: NM INJECT: PET/CT BODY SCAN. 8.9 mCi [id number]. No other medications given.. ADMINISTRATION TIME: 1141 PATIENT DISCHARGED TO: Ambulatory patient, left [place] department area. Is this a therapy: No A Diagnostic radioactive procedure has taken place, with no further precautions necessary other than routine body substance precautions. More information regarding radiation safety can be found using this link: [email or web address]%[email or web address] uclear%[email or web address] df SIGNATURE: RT Radha(Jose) PATIENT NAME: Jm Barrow DATE: June 04, 2024 TIME: 11:57 AM PAGER/CONTACT #: documented in this encounter [facility] 06-04-2024 Note HNO ID: [id number] Author: LORRAINE MARTINEZ RN Service: ? Author Type: Registered Nurse Type: Progress Notes Filed: 06/04/2024 11:29 Note Text: Radiology Service Progress Note DATE OF SERVICE: June 04, 2024 TIME: 11:28 AM PATIENT WEIGHT: 176LBS PATIENT IDENTITY VERIFICATION COMPLETED USING TWO (2) STANDARD IDENTIFIERS: Name and Date of confirmed by patient verbally. FALL SCREENING: Has the patient had 2 falls in the last year or 1 fall with injury or currently using an Ambulatory Assistive Device (Walker, Cane, Wheelchair, Crutches, etc.)? No PATIENT GENDER DATA: Assigned male at ALLERGIES: Reviewed and unchanged CONTRAST ALLERGY: No EXAM: CT -CONTRAST INDUCED NEPHROPATHY RISK FACTORS: Not applicable CREATININE: Creatinine Date Value Ref Range Status 02/12/2024 1.04 0.73 - 1.22 mg/dL Final 12/14/2023 1.13 0.73 - 1.22 mg/dL Final 10/16/2023 1.12 0.73 - 1.22 mg/dL Final Estimated Glomerular Filtration Rate Date Value Ref Range Status 02/12/2024 74 >=60 mL/min/1.73m? Final Comment: Estimated Glomerular Filtration [...] Range Status 06/23/2021 >60 Final P.O.C.T. RESULTS: POC done: Yes, See Lab Tab June 04, 2024 TREATMENT: N/A IV SITE: Ambulatory: A peripheral IV was started in the Left antecubital site with a Angio cath: 22 gauge. IV SITE APPEARANCE: Clean,Dry and Intact SIGNATURE: Lorraine Martinez RN PATIENT NAME: Jm Barrow DATE: June 04, 2024 TIME: 11:28 AM [facility] 06-04-2024 Note HNO ID: [id number] Author: UMER BROWNE RT(R) Service: ? Author Type: Technologist Type: Progress Notes Filed: 06/04/2024 11:57 Note Text: RADIOLOGY SERVICE PROGRESS NOTE SERVICE DATE: 06/04/2024 SERVICE TIME: 11:57 AM PATIENT IDENTITY VERIFICATION COMPLETED USING TWO (2) STANDARD IDENTIFIERS: Name and Date of confirmed by patient verbally POST EXAM PIV STATUS: Discontinued PROCEDURE TYPE: NM INJECT: PET/CT BODY SCAN. 8.9 mCi [id number]. No other medications given.. ADMINISTRATION TIME: 1141 PATIENT DISCHARGED TO: Ambulatory patient, left [place] department area. Is this a therapy: No A Diagnostic radioactive procedure has taken place, with no further precautions necessary other than routine body substance precautions. More information regarding radiation safety can be found using this link: [email or web address]-% 20Diagnostic%20Nuclear%20Medicin e%[email or web address] SIGNATURE: RT Radha(R) PATIENT NAME: Jm Barrow DATE: June 04, 2024 TIME: 11:57 AM PAGER/CONTACT #: [facility] 05-23-2024 Note General Surgery Offi ce/Clinic Note Chief Complaint consultation for constipation HPI Staff 78 year old male presents on consultation from Dr. Orosco for constipation. Reports approximately 6 week history of intermittent constipation and alternating diarrhea. Verbalized intermittent use of Dulcolax, MiraLAX and enema's. PCP prescribed Lactulose on 04/18, he stopped this due to diarrhea. Reports occasional abdominal pain and bloating when constipation is severe. Denies rectal pain or bleeding. Denies nausea, vomiting or weight loss. Last colonoscopy completed 07/2017- normal. History of Present Illness 78 yo male with h/o htn, hypercholesterolemia, COPD, hypothyroidism, AAA, bilateral carotid stenosis, bladder and prostate cancer, referred for bowel changes; several month h/o constipation and intermittent loose stools, no blood; no improvement with various laxatives/MiraLAX; some bloating and intermittent lower abd ache, no N/V; no wt loss; no imaging; no new medications; last colonoscopy 2017, with mild diverticulosis; on baby asa daily, no NSAID use; smokes daily; fmhx of colon cancer in patient's mother, no fmhx of IBD. Review of Systems PHQ Score Initial Depression Screen Score: 0 SCORE ROS - Provider Constitutional: no fever, no sweats, no weight loss. Eyes: no glasses, no blurred vision, no visual loss. ENMT: no dentures, no hoarseness, no swallowing difficulties, no hearing loss, no ear infection(s), no nose bleeds. Cardiovascular: normal blood pressure, no chest pain, regular heartbeat, no heart murmur. Respiratory: no shortness of breath, no cough, no asthma, no wheezing. Gastrointestinal: no nausea, no vomiting, no diarrhea, no constipation, no blood in stool, no change in bowel habits, no abdominal pain, no hepatitis. Genitourinary: no kidney stones, no urine infection, no dysuria. Musculoskeletal: no pain, no weakness. Skin: no changing moles, no rash, no skin lumps. Neurologic: no seizures, no epilepsy, no headache. Psychiatric: no emotional or psychiatric problem. Heme/Lymph: no bleeding problems, no anemia, no blood clots, no transfusions. Allergy/Immunologic: no swollen lymph nodes/glands, no IV drug abuse. Other: Additional ROS info: Except as noted in the above Review of Systems and in the History of Present Illness, all other systems have been reviewed and are negative or noncontributory. Physical Exam Vitals & Measurements HR: 62(Peripheral) RR: 16 BP: 97/57 HT: 70 in HT: 177.8 cm WT: 77.7 kg WT: 171.299 lb BMI: 24.58 HEENT: normal conjunctiva, sclera clear, no scleral icterus, EOM intact, PERRLA, oral mucosa moist without lesions. Neck: trachea midline, no mass, symmetric, no thyromegaly or nodules, no adenopathy Respiratory: lungs CTA, respirations non labored. Cardiovascular: regular rate and rhythm, no murmur, no pedal edema or varicosities. Gastrointestinal: soft, non distended, no tenderness, no masses, no palpable hernias, diastasis recti no, no hepatosplenomegaly; normal bs Lymphatic: no cervical adenopathy, no supraclavicular adenopathy. Musculoskeletal: normal gait, digits and nails without infection, nodes, cyanosis, clubbing. Skin: no rashes, no lesions, no ulcers, no subcutaneous nodules, induration. Psychiatric/Neuro: oriented to time, place, person, judgement normal, affect appropriate for age, insight intact, no focal deficits. Tests:, review of old records completed , Discussed surgical options, risks, and possible complications with patient. Assessment/Plan 1. Change in bowel habits (R19.4: Change in bowel habit) plan colonoscopy under anesthesia for further evaluation, informed consent obtained. 2. Frequent loose stools (R19.7: Diarrhea, unspecified) see # 1 3. Chronic constipation (K59.09: Other constipation) see # 1 4. Tobacco use (Z72.0: Tobacco use) We strongly recommend to quit tobacco use. Cigarette smoking harms nearly every organ of the body, causes many diseases, and reduces the health of smokers in general. Quitting smoking lowers your risk for smoking-related diseases and can add years to your life. We encourage you to visit www.smokefree.gov access to helpful resources including free telephone support. If you decide on prescription treatment to help you quit, your family doctor would be happy to provide these. Follow-up No qualifying data available Problem List/Past Medical History Ongoing AAA (abdominal aortic aneurysm), not a candidate for repair Bilateral carotid artery stenosis Change in bowel habits Chronic constipation Chronic obstructive pulmonary disease Chronic tension headaches Cyst of kidney Depression First degree atrioventricular block Frequent loose stools Hypercholesterolemia Hypertension Hypothyroidism Malignant neoplasm of urinary bladder Malignant tumor of prostate Mixed hyperlipidemia Osteopenia Overweight RBBB (right bundle branch block) Urethral stricture Historical No qualifying data Procedu (more content not included)... [facility] Comment on above: Result Comment: Elec tronically Signed By: GIANCARLO GUTIERREZ, Willard Varma\Date and Time Signed: 05/23/24 11:16 EST 04-26-2024 History of Present illness Narrative Reason [...] have insurance coverage for nail reduction by radiotelegraphist. 3. Patient should wash and dry bilateral [...] Reappoint 10-12 weeks. documented in this encounter [facility] 04-09-2024 Telephone encounter Note The following approved medication requests have been transmitted electronically. Requested Prescriptions Signed Prescriptions Disp Refills bicalutamide (CASODEX) 50 mg tablet 90 tablet 1 Sig: TAKE 1 TABLET BY MOUTH EVERY DAY Authorizing Provider: CHRISTIANO CARDENAS APRN.FEED ADVISER [facility] 04-09-2024 Miscellaneous Notes The following approved medication requests have been transmitted electronically. Requested Prescriptions Signed Prescriptions Disp Refills bicalutamide (CASODEX) 50 mg tablet 90 tablet 1 Sig: TAKE 1 TABLET BY MOUTH EVERY DAY Authorizing Provider: CHRISTIANO CARDENAS APRN.FEED ADVISER documented in this encounter [facility] 02-15-2024 Telephone encounter Note Please disregard this encounter. Patient does not need scan until May. Will resend closer to date requested. [facility] 02-15-2024 Miscellaneous Notes Please disregard this encounter. Patient does not need scan until May. Will resend closer to date requested. This form is used for MAIN CAMPUS APPOINTMENTS ONLY. Is this request for a [place] PET scan appointment? Yes: Transformation Manager: Lam Mills Requesting Person (Last Name, First Name): Foxwilli Guzman Area Code + Phone/Pager: [phone] Who do we call to schedule this appointment? Other Contact: [facility] PET to be done in [place]. Route to [facility] for scheduling Requesting Staff Fox Guzman Area Code + Phone/Pager: [phone] PET Orders (A delay in scheduling will [...] COORD REVIEW [facility] documented in this encounter [facility] 02-15-2024 Telephone encounter Note This form is used for MAIN CAMPUS APPOINTMENTS ONLY. Is this request for a [place] PET scan appointment? Yes: Transformation Manager: Lam Mills Requesting Person (Last Name, First Name): Fox Guzman Area Code + Phone/Pager: [phone] Who do we call to schedule this appointment? Other Contact: [facility] PET to be done in [place]. Route to [facility] for scheduling Requesting Staff Fox Guzman Area Code + Phone/Pager: [phone] PET Orders (A delay in scheduling will [...] Send requests to P COORD REVIEW [facility] 02-15-2024 Nurse Note AUA=19 [facility] 02-15-2024 Nurse Note AUA=19 documented in this encounter [facility] 02-15-2024 History of Present illness Narrative Images [...] Broussard/medical oncology regarding hormonal treatment. Signed by: Liv Guzman MD cc: Arline Orosco MD [address] [place] [phone] [address] Broussard. Portions of the above note extracted and edited from previous visit as well as active information included in the EMR. documented in this encounter [facility] 02-15-2024 Note HNO ID: [id number] Author: Liv GUZMAN MD Service: ? Author Type: Physician [...] Bowel movement f (more content not included)... [facility] 02-14-2024 Note HNO ID: [id number] Author: JOSE FRANCISCO BROUSSARD MD Service: ? Author Type: Physician Type: Progress Notes Filed: 02/16/2024 05:43 Note Text: PATIENT NAME: Jm Barrow DATE: 02/15/2024 PRIMARY CARE PHYSICIAN: Arline Orosco MD OTHER PHYSICIANS: Dr. Guzman, Dr. Leroy Shaw, Dr. Guzman, Dr. Gifford, Dr. James House Portions of this encounter note have been [...] CATARACT, INSERT LENS,EX Bilateral 06/2019 Dr. Grimm [facility], [place] TONSILLECTOMY HX FAMILY HISTORY: FAMILY HISTORY [...] dysphasia, diarrhea, bl (more content not included)... [facility] 02-14-2024 History of Present illness Narrative PATIENT NAME: Jm Barrow DATE: 02/15/2024 PRIMARY CARE PHYSICIAN: Arline Orosco MD OTHER PHYSICIANS: Dr. Guzman, Dr. Leroy Shaw, Dr. Guzman, Dr. Gifford, Dr. James House Portions of this encounter note have been [...] pelvis/hip PATHOLOGY: 02/14/2000 Pelvic lymph node biopsy ([facility], Dr. Doug Regalado) Metastatic prostate adenocarcinoma involving 1 of 3 lymph nodes (right obturator LN) 01/20/2000 TRUS prostate biopsy ([facility]) Prostate adenocarcinoma, [place] composite [...] 0.97 RADIOLOGY/OTHER STUDIES: 01/10/2024 Bone density DEXA ([facility]) Osteopenia. Max T-score -1.5 right femoral neck. [...] expressing neoplastic process 01/15/2022 Bone density DEXA ([facility]) Osteopenia in bilateral femoral necks ASSESSMENT/PLAN: 1. [...] at [facility] [place] by Dr. 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 He was seen by Dr. House to discuss brachytherapy, but the patient declined. [...] 6 months since 2019, [facility]. Since December 2022 he has been receiving [...] Francisco Broussard MD documented in this encounter [facility] 12-20-2023 Instructions Isadora Carty PA-C - 12/20/2023 [...] usual activities immediately. documented in this encounter [facility] 12-20-2023 History of Present illness Narrative PATIENT NAME: Jm Barrow DATE: 12/20/2023 PRIMARY CARE PHYSICIAN: Arline Orosco MD OTHER PHYSICIANS: Dr. Guzman, Dr. Leroy Shaw, Dr. Guzman, Dr. Gifford, Dr. James House Portions of this encounter note have been [...] CATARACT, INSERT LENS,EX; Bilateral Comment: Dr. Grimm [facility], [place] No date: TONSILLECTOMY HX FAMILY HISTORY: FAMILY [...] pelvis/hip PATHOLOGY: 02/14/2000 Pelvic lymph node biopsy ([facility], Dr. Doug Regalado) Metastatic prostate adenocarcinoma involving 1 of 3 lymph nodes (right obturator LN) 01/20/2000 TRUS prostate biopsy ([facility]) Prostate adenocarcinoma, Kita composite [...] expressing neoplastic process 01/15/2022 Bone density DEXA ([facility]) Osteopenia in bilateral femoral necks ASSESSMENT/PLAN: 1. [...] at [facility] [place] by Dr. 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 He was seen by Dr. House to discuss brachytherapy, but the patient is [...] 6 months since 2019, previously given at [facility]. Since December 2022 he has [...] Isadora Carty PA-C CC: Dr. Leroy Shaw, [facility] I spent a total of 30 minutes on the date of the service which included preparing to see the patient, [id number] patient care, completing clinical documentation, performing a medically appropriate examination, counseling and educating the patient/family/caregiver, ordering medications, tests, or procedures, independently interpreting results (not separately reported), communicating results to the patient/family/caregiver, and care coordination (not separately reported). documented in this encounter [facility] 12-20-2023 Note HNO ID: [id number] Author: ISADORA CARTY PA-C Service: ? Author Type: Physician Distribution Sales Representative Type: Progress Notes Filed: 12/20/2023 14:30 Note Text: PATIENT NAME: Jm Barrow DATE: 12/20/2023 PRIMARY CARE PHYSICIAN: Arline Orosco MD OTHER PHYSICIANS: Dr. Guzman, Dr. Leroy Shaw, Dr. Guzman, Dr. Gifford, Dr. James House Portions of this encounter note have been [...] REMOVE CATARACT, INSERT LENS,EX; Bilateral Comment: Dr. Alfa Lee [place], [place] No date: TONSILLECTOMY HX FAMILY HISTORY: FAMILY [...] or hearing loss. (more content not included)... [facility] 12-13-2023 Telephone encounter Note Pt sees Isadora next week for follow up. Would like to have his labs drawn before next week's appointment. Orders pended. Umer Dale RN [facility] 12-13-2023 Miscellaneous Notes Pt sees Isadora next week for follow up. Would like to have his labs drawn before next week's appointment. Orders pended. Umer Dale RN documented in this encounter [facility] 10-17-2023 Telephone encounter Note Pt informed of BRM message and agreeable to continue with current treatment/plans of care. Pt denies any questions, needs or concerns at this time. Appointment verified. Daniel Benítez RN [facility] 10-17-2023 Telephone encounter Note ----- Message from [...] him back as scheduled with repeat labs. [facility] 10-17-2023 Miscellaneous Notes Pt informed of BR [...] with repeat labs. documented in this encounter [facility] 08-17-2023 History of Present illness Narrative Images [...] follow-up with Dr. Shaw. 2 Prostate cancer [place] 8, node positive with prior treatment including [...] patient back in 6 months. Signed by: Liv Guzman MD cc: Arline Orosco MD [address] [place] [phone] [address] Broussard. Portions of the above note extracted and edited from previous visit as well as active information included in the EMR. documented in this encounter [facility] 08-17-2023 Note HNO ID: [id number] Author: Liv GUZMAN MD Service: ? Author Type: Physician [...] 6 month, (LUP (more content not included)... [facility] 08-17-2023 Nurse Note AUA 12 Brenda Aguirre RN documented in this encounter [facility] 08-17-2023 Note HNO ID: [id number] Author: JOSE FRANCISCO BROUSSARD MD Service: ? Author Type: Physician Type: Progress Notes Filed: 08/18/2023 07:07 Note Text: PATIENT NAME: Jm Barrow DATE: 08/17/2023 PRIMARY CARE PHYSICIAN: Arline Orosco MD OTHER PHYSICIANS: Dr. Guzman, Dr. Leroy Shaw, Dr. Guzman, Dr. Gifford, Dr. James House Portions of this encounter note have been [...] INSERT LENS,EX Bilateral 06/2019 Dr. Grimm [place], [place] TONSILLECTOMY HX FAMILY HISTORY: FAMILY HISTORY [...] antibiotics use, epistaxi (more content not included)... [facility] 08-17-2023 History of Present illness Narrative PATIENT NAME: Jm Barrow DATE: 08/17/2023 PRIMARY CARE PHYSICIAN: Arline Orosco MD OTHER PHYSICIANS: Dr. Guzman, Dr. Leroy Shaw, Dr. Guzman, Dr. Gifford, Dr. James House Portions of this encounter note have been [...] CATARACT, INSERT LENS,EX Bilateral 06/2019 Dr. Grimm [place], [place] TONSILLECTOMY HX FAMILY HISTORY: FAMILY HISTORY [...] PATHOLOGY: 02/14/2000 Pelvic lymph node biopsy ([facility], Dr. Doug Regalado) Metastatic prostate adenocarcinoma involving 1 of 3 lymph nodes (right obturator LN) 01/20/2000 TRUS prostate biopsy ([facility]) Prostate adenocarcinoma, Kita composite [...] expressing neoplastic process 01/15/2022 Bone density DEXA ([place] [facility]) Osteopenia in bilateral femoral necks ASSESSMENT/PLAN: 1. Prostate cancer (HCC) - ICD9: 185, ICD10: C61 Prostate cancer diagnosed January 2000 (prostate biopsy 01/20/2000). Initial staging revealed evidence of lymph node involvement (pelvic lymph node biopsy 02/14/2000). Initial stage T3b, N1, M0; [place] 8. The patient received primary treatment with [...] were considered. The patient was seen at [facility] by Dr. 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 He was seen by Dr. House to discuss brachytherapy, but the patient is [...] 6 months since 2019, previously given at [facility]. Since December 2022 he has been receiving [...] [facility] documented in this encounter [facility] 08-07-2023 Miscellaneous Notes Patient has an appointment on 08/15/23 for labs then follow up on 08/17/23, please place lab orders. Deyanira Haskins MA documented in this encounter [facility] 07-21-2023 Note HNO ID: [id number] Author: LOLA ALLEN OD Service: ? Author Type: BRICK SHADER Type: Progress Notes Filed: 07/21/2023 14:42 Note [...] retinal breaks July 21, 2023 2:38 PM [facility] 07-21-2023 History of Present illness Narrative [...] 2023 2:38 PM documented in this encounter [facility] 07-03-2023 Miscellaneous Notes Preoperative Education Checklist- General Surgery date: 07/04/23 Surgery time: 08 Arrival time: 07 1. Bring a photo ID and your insurance card with you the day of surgery. You will check in at the main lobby at the registration desk near the [facility]. 2. If you have a Living Will/Durable Power of Contract Mail Carrier for Health Care that is not on file here, please bring a copy the day of surgery. 3. Please shower/tub bath the night before surgery or morning of. 4. NO powder, lotion, perfume/cologne, aftershave, make-up, nail french, deodorant, or hair products after you have [...] doctor for instructions [email or web address] Nurse Note Preoperative Education Checklist- General Surgery date: 07/04/23 Surgery time: 0800 Arrival time: 0700 1. Bring a photo ID and your insurance card with you the day of surgery. You will check in at the main lobby at the registration desk near the [facility]. 2. If you have a Living Will/Durable Power of Contract Mail Carrier for Health Care that is not on file here, please bring a copy the day of surgery. 3. Please shower/tub bath the night before surgery or morning of. 4. NO powder, lotion, perfume/cologne, aftershave, make-up, nail french, deodorant, or hair products after you have [...] tablet Check with prescribing doctor for instructions [facility] 06-26-2023 Note HNO ID: [id number] Author: JOSE FRANCISCO BROUSSARD MD Service: ? Author Type: Physician Type: Progress Notes Filed: 06/26/2023 20:10 Note Text: PATIENT NAME: Jm Barrow DATE: 06/26/2023 PRIMARY CARE PHYSICIAN: Arline Orosco MD OTHER PHYSICIANS: Dr. Guzman, Dr. Leroy Shaw, Dr. Guzman, Dr. Gifford, Dr. James House Portions of this encounter note have been [...] INSERT LENS,EX Bilateral 06/2019 Dr. Grimm [place], [place] TONSILLECTOMY HX FAMILY HISTORY: FAMILY HISTORY [...] Well developed/well nour (more content not included)... [facility] 06-26-2023 History of Present illness Narrative PATIENT NAME: Jm Barrow DATE: 06/26/2023 PRIMARY CARE PHYSICIAN: Arline Orosco MD OTHER PHYSICIANS: Dr. Guzman, Dr. Leroy Shaw, Dr. Guzman, Dr. Gifford, Dr. James House Portions of this encounter note have been [...] CATARACT, INSERT LENS,EX Bilateral 06/2019 Dr. Grimm [facility], [place] TONSILLECTOMY HX FAMILY HISTORY: FAMILY HISTORY [...] PATHOLOGY: 02/14/2000 Pelvic lymph node biopsy ([facility], Dr. Doug Regalado) Metastatic prostate adenocarcinoma involving 1 of 3 lymph nodes (right obturator LN) 01/20/2000 TRUS prostate biopsy ([facility]) Prostate adenocarcinoma, [place] composite score 8 LABS: Hemoglobin (g/dL) Date [...] expressing neoplastic process 01/15/2022 Bone density DEXA ([facility]) Osteopenia in bilateral femoral necks ASSESSMENT/PLAN: 1. [...] were considered. The patient was seen at [facility] by Dr. 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 He was seen by Dr. House to discuss brachytherapy, but the patient is [...] 6 months since 2019, previously given at [facility]. Since December 2022 he has been receiving at our facility. He will receive an injection today. Will monitor bone density DEXA every 2 to 3 years. Jose Francisco Broussard MD CC: Dr. Leroy Shaw, [facility] documented in this encounter [facility] 05-12-2023 History of Present illness Narrative Radiology [...] SITE APPEARANCE: Clean,Dry and Intact SIGNATURE: Tiffany Mondragon RN PATIENT NAME: Jm Barrow DATE: May 12, 2023 TIME: 1:21 PM RADIOLOGY SERVICE PROGRESS NOTE SERVICE DATE: 05/12/2023 SERVICE TIME: 2:47 PM PATIENT IDENTITY VERIFICATION COMPLETED USING TWO (2) STANDARD IDENTIFIERS: Name and Date of confirmed by patient verbally POST EXAM PIV STATUS: Discontinued PROCEDURE TYPE: NM INJECT: PET/CT BODY SCAN. 10.8 mCi [id number]. No other medications given.. ADMINISTRATION TIME: 1321 PATIENT DISCHARGED TO: Ambulatory patient, left [place] department area. A Diagnostic radioactive procedure has taken place, with no further precautions necessary other than routine body substance precautions. More information regarding radiation safety can be found using this link: [email or web address] SIGNATURE: RT Radha(R) PATIENT NAME: Jm Barrow DATE: May 12, 2023 TIME: 2:47 PM PAGER/CONTACT #: documented in this encounter [facility] 04-11-2023 Miscellaneous Notes Auth#:[id number] Date Range: 04-11-23 to 07-09-2023 14041/PSMA- piflufolastat (Sheela) F-18 Liv Montoya INS Contact Number: Intake: online Case/Ref#: [id number] Notes: 04/11/2023 Authorized online via Sherie/Abdi routed to Stephany for scheduling in [place] per patient's request Authorization number: PSMA Authorization date range: PSMA Primary Insurance: [employer] AND [employer] Local HMO Diagnosis: Prostate cancer (HCC) [C61] DX Imaging: PET Scan: 06/02/2022 PET Pathology: 02/14/2000 Pelvic lymph node biopsy ([facility], Dr. Duog Regalado) Metastatic prostate adenocarcinoma involving 1 of 3 lymph nodes (right obturator LN) PROSTATE GLAND, LEFT, LEVELS 1-4 , NEEDLE BIOPSIES ([id number], A-D) - PROSTATIC ADENOCARCINOMA, KITA SCORE 7 (4+3). Comment: Adenocarcinoma involves 60% of the needle biopsy specimens. Perineural invasion is present. 2. PROSTATE GLAND, RIGHT, LEVELS 1-4, NEEDLE BIOPSIES ([id number]; E-H) - PROSTATIC ADENOCARCINOMA, KITA SCORE 7 (4+3) 01/20/2000 TRUS prostate biopsy ([facility]) Prostate adenocarcinoma, [place] composite score 8 Labs: PSA 06/02/2022 PSA [...] No - Schedule as requested Comments for Food Broker: EL: As soon as insurance will allow ROUTE TO SCHEDULERS POOL P PET VICE PRESIDENT OF COMPLIANCE or P [place] SPECIAL STUDIES [facility] This form is used for MAIN CAMPUS APPOINTMENTS ONLY. Is this request for a [place] PET scan appointment? Yes: Transformation Manager: Teresa Trejo Sec Requesting Person Dr guzman: Area Code + Phone/Pager: [phone] Who do we call to schedule this appointment? Other Contact: PSMA pet please message anne browne in [place] Requesting Staff Dr guzman Area Code + Phone/Pager: [phone] PET Orders (A delay in scheduling will [...] need anesthesia? NO Send requests to P [facility] REVIEW [facility] documented in this encounter [facility] 03-27-2023 History of Present illness Narrative Skin Biopsy Procedure Note Skin Biopsy Accession Number: [id number] Biopsy Date: 03/27/2023 Referring physician: Barb Kiran [...] Procedure Note Procedure confirmed with provider and network support. Yes, left leg 2 skin biopsies. [...] out is complete. documented in this encounter [facility] 03-27-2023 History of Present illness Narrative UNIVERSAL [...] applicable. Martha White documented in this encounter [facility] 03-27-2023 History of Present illness Narrative UNIVERSAL [...] applicable. Martha White documented in this encounter [facility] 02-23-2023 History of Present illness Narrative Images [...] follow-up with Dr. Shaw. 2 Prostate cancer [place] 8, node positive with prior treatment including [...] PET scan for further discussion. Signed by: Liv Guzman MD cc: Arline Orosco MD [address] [place] [phone] [address] Broussard. Portions of the above note extracted and edited from previous visit as well as active information included in the EMR. documented in this encounter [facility] 02-23-2023 Nurse Note AUA= 12 documented in this encounter [facility] 12-28-[address] Broussard spoke w/ Dr Guzman regarding radiation seed implant for pt. Dr Guzman recommends pt see Dr House as scheduled. Pt notified and verbalizes understanding. Umer Dale, RN documented in this encounter [facility] 12-07-2022 History of Present illness Narrative PATIENT: Jm Barrow [id number] REFERRING MD: Liv Guzman NEW PATIENT VISIT 12/06/2022 Chief Complaint [...] PET. 11/17/2022 PSA 0.49 11/24/2022 Met with [facility] Dr. 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 Grimm - [place], [place] TONSILLECTOMY HX Medications Current Outpatient Medications [...] Urologic Staff Center [facility] Manny Meza MD Urologic Staff [facility] Medical Decision Making: Problems: Moderate: New problem with uncertain prognosis Data: Unique test result(s) reviewed: 1 Unique test(s) ordered: 1 Risk: Moderate: Moderate risk from testing/treatment Medical Decision Making Level: 4 - Moderate documented in this encounter [facility] 12-07-2022 Nurse Note Summary: BLADDER S CAN PATIENT PVR READING 0mL documented in this encounter [facility] 11-24-2022 History of Present illness Narrative Images [...] follow-up with Dr. Shaw. 2 Prostate cancer [place] 8, node positive with prior treatment including [...] would be candidate for brachytherapy. Signed by: Liv Guzman MD cc: Arline Orosco MD [address] [place] [phone] [address] Broussard. Portions of the above note extracted and edited from previous visit as well as active information included in the EMR. documented in this encounter [facility] 09-22-2022 History of Present illness Narrative PATIENT [...] PATHOLOGY: 02/14/2000 Pelvic lymph node biopsy ([facility], Dr. Doug Regalado) Metastatic prostate adenocarcinoma involving 1 of 3 lymph nodes (right obturator LN) 01/20/2000 TRUS prostate biopsy ([facility]) Prostate adenocarcinoma, Kita composite [...] expressing neoplastic process 01/15/2022 Bone density DEXA ([facility]) Osteopenia in bilateral femoral necks ASSESSMENT/PLAN: 1. Prostate cancer (HCC) - ICD9: 185, ICD10: C61 Prostate cancer diagnosed January 2000 (prostate biopsy 01/20/2000). Initial staging revealed evidence of lymph node involvement (pelvic lymph node biopsy 02/14/2000). Initial stage T3b, N1, M0; [place] 8. The patient received primary treatment with [...] [facility] documented in this encounter [facility] 08-25-2022 Nurse Note AUA=21 documented in this encounter [facility] 08-15-2022 Miscellaneous [...] 2022 1:43 PM documented in this encounter [facility] 08-15-2022 Nurse Note Radiology [...] TIME: 12:43 PM documented in this encounter [facility] 07-25-2022 Miscellaneous Notes I [...] has been elevated and he went to [place] [facility] this past week for that. Pt states he was started on metoprolol and on other med that he can't remember the name of. . Barbara: please get records BRM: please advise Teresa Angelo RN documented in this encounter [facility] 07-18-2022 History of Present illness Narrative ASSESSMENT/PLAN: [...] 2022 1:49 PM documented in this encounter [facility] 07-13-2022 Miscellaneous Notes Pt notified and verbalizes understanding. Will call us back if his symptoms persist despite reduced dose. Umer Dale RN Thanks for the update. If you have a chance to get back to him I definitely would recommend he cut the dose in half to see how the side effects are before he stops altogether. GARRETT Meehan I spoke with Jm today with the [...] to Dr. Broussard. documented in this encounter [facility] 06-27-2022 Miscellaneous Notes Zoran. GARRETT Jm has decided to move forward with the Xtandi, he received his 14 day free trial on 06/24/22. I was able to secure a ronda that will cover next month and we will pursue free drug following that. He will complete the application when he comes in for his 07/07/22 appt. Matthias Pa rPh documented in this encounter [facility] 06-22-2022 Miscellaneous Notes Thanks, order signed. 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 Clerical: Please call and offer pt an education appointment. Can be in person or over the phone. Umer Sessler, RN Call placed to Jm to let [...] Matthias Pa rPh documented in this encounter [facility] 06-21-2022 Miscellaneous Notes Ambulatory Pharmacy Prior Authorization Note Provider Intervention Required?: No- Pharmacy completed on your behalf. Rx Plan: Other: [facility]: Xtandi Cover My Meds Torres: [id number] Determination: Approved Prior Authorization/Case #: [id number] Prior Authorization Expiration: 06/21/2023 Time to PA Submission in CMM: 15 min Time to PA Determination in CMM: Same day Additional Information: $3,107.12 - will need to reach out to patient For questions relating to this submission, please contact [facility] at [phone] documented in this encounter [facility] 06-20-2022 History of Present illness Narrative PATIENT [...] PATHOLOGY: 02/14/2000 Pelvic lymph node biopsy ([facility], Dr. Doug Regalado) Metastatic prostate adenocarcinoma involving 1 of 3 lymph nodes (right obturator LN) 01/20/2000 TRUS prostate biopsy ([facility]) Prostate adenocarcinoma, Kita composite [...] expressing neoplastic process 01/15/2022 Bone density DEXA ([facility]) Osteopenia in bilateral femoral necks ASSESSMENT/PLAN: 1. [...] 6 months (last given October 2021 at [facility]). Due to an increasing PSA the patient [...] Jose Francisco Broussard MD CC: Dr. Leroy Valeria documented in this encounter [facility] 06-10-2022 Evaluation note Diagnosis Cancer of prostate w/med recur risk (T2b-c or Kita 7 or PSA 10-20) (HCC)- Primary Malignant neoplasm of prostate documented in this encounter [facility]01-24-2023 History of Present illness [...] follow-up with his urologist. 2 Prostate cancer [place] 8, node positive with prior treatment including [...] despite Lupron. See after MRI. Signed by: Liv Guzman MD cc: Arline Orosco MD [address] [place] [phone] Portions of the above note extracted and edited from previous visit as well as active information included in the EMR. [facility] History of Present illness Narrative* Umer Browne [...] 1327 PATIENT DISCHARGED TO: Ambulatory patient, left [place] department area. A Diagnostic radioactive procedure has taken place, with no further precautions necessary other than routine body substance precautions. More information regarding radiation safety can be found usingthis link: [email or web address] SIGNATURE: RT Radha(R) PATIENT NAME: Jm Barrow [...] 2022 TIME: 1:40 PM [facility] Miscellaneous Notes* Telephone Encounter - Lena Dowd RN - 04/20/2022 8:11 AM EST Will submit for [facility] approval closer to May 2022. submitted 05-06-22 * Telephone Encounter - Lena Dowd RN - 04/19/2022 12:48 PM EST Auth#: [id number] Date Range: 05/06/2022 to 08/03/2022 10901/PSMA- piflufolastat F [id number] NPI: Donte Montes [id number] Member ID : Abdi Aragon [id number] INS Contact Number: AIM [phone] Intake: Sophia started case Case/Ref#: [id number] Notes: faxed 11 pages clinical to Clinical Review Nurse at [phone]. Sophia stated case not meeting criteria and needed Peer to Peer. Email to [facility]/ Dr Simon Barrow [phone] PET/CT Prostate scan needs Peer to Peer at [phone] case [id number] email to Dr Megan Aguirre RN, Jm Barrow [phone] PET/CT Prostate scan needs Peer to Peer at [phone] case [id number]. Did you get approval? On epic referral [facility] documented approval: Authorization #: [id number] Valid From: 05/06/2022 to 08/03/2022 * Telephone Encounter - Lena Dowd RN - 04/19/2022 12:42 PM EST Authorization number: [id number] [id number] Authorization date range: PSMA 05/06/2022 to 08/03/2022 1-dos Primary Insurance: [employer] [id number] Diagnosis: History of prostate cancer [Z85.46] Cancer [...] No - Schedule as requested Comments for Food Broker: May 2022 ROUTE TO SCHEDULERS POOL P PET VICE PRESIDENT OF COMPLIANCE or P NM SPECIAL STUDIES [facility] * Telephone Encounter - Maral Dominique - 04/19/2022 11:49 AM EST This form is used for MAIN CAMPUS APPOINTMENTS ONLY. Is this request for a [place] PET scan appointment? Yes: Transformation Manager: Maral Dominique Requesting Person (Last Name, First Name): Rasta Dominique Area Code + Phone/Pager: [phone] Who do we call to schedule this appointment? Other Contact: [facility] PET in [place] ([place] May), route to Anne Browne to schedule. Requesting Staff Jud Guzman Area Code + Phone/Pager: [phone] PET Orders (A delay in scheduling will [...] to P COORD REVIEW [facility] Evaluation note* Diagnosis History of prostate cancer- Primary Personal history of malignant neoplasm of prostate Cancer of prostate w/med recur risk (T2b-c or [place] 7 or PSA 10-20) (HCC) Malignant neoplasm of prostate documented in this encounter [facility]11-08-2022 Nurse Note* Mali Mora LPN - 03/22/2022 1:12 PM EST AUA= 11 documented in this encounter[facility] History of Present illness Narrative* Liv Guzman MD - 03/22/2022 1:07 PM EST [...] follow-up with his urologist. 2 Prostate cancer [place] 8, node positive with prior treatment including [...] patient back after PET scan. Signed by: Liv Guzman MD cc: Arline Orosco MD [address] [place] [phone] Portions of the above note extracted and edited from previous visit as well as active information included in the EMR. documented in this encounter[facility] History of Present illness Narrative* Lola Faulkner Tiffany, OD - 08/23/2021 3:06 PM EDT [...] of its relevant components. Lola Allen, OD August 23, 2021 3:06 PM documented in [facility] History of Past illness Narrative* Problem Noted Date Resolved Date BPH (benign prostatic hyperplasia) 06/23/2021 documented as of this encounter (statuses as of 08/23/2021) [address]09-2022 History of Past illness Narrative* Problem Noted Date Resolved Date BPH (benign prostatic hyperplasia) 06/23/2021 documented as of this encounter (statuses as of 03/28/2022) [address]09-2022 History of Past illness Narrative* Problem Noted Date Resolved Date BPH (benign prostatic hyperplasia) 06/23/2021 documented as of this encounter (statuses as of 05/31/2022) [address]09-2022 History of Past illness Narrative* Problem Noted Date Resolved Date BPH (benign prostatic hyperplasia) 06/23/2021 documented as of this encounter (statuses as of 06/10/2022) [address]09-2022 History of Past illness Narrative* Problem Noted Date Resolved Date BPH (benign prostatic hyperplasia) 06/23/2021 documented as of this encounter (statuses as of 06/16/2022) [address]09-2022 History of Past illness Narrative* Problem Noted Date Resolved Date BPH (benign prostatic hyperplasia) 06/23/2021 documented as of this encounter (statuses as of 06/22/2022) [address]09-2022 History of Past illness Narrative* Problem Noted Date Resolved Date BPH (benign prostatic hyperplasia) 06/23/2021 documented as of this encounter (statuses as of 06/22/2022) [address]09-2022 History of Past illness Narrative* Problem Noted Date Resolved Date BPH (benign prostatic hyperplasia) 06/23/2021 documented as of this encounter (statuses as of 06/23/2022) [address]09-2022 History of Past illness Narrative* Problem Noted Date Resolved Date BPH (benign prostatic hyperplasia) 06/23/2021 documented as of this encounter (statuses as of 06/27/2022) [address]09-2022 History of Past illness Narrative* Problem Noted Date Resolved Date BPH (benign prostatic hyperplasia) 06/23/2021 documented as of this encounter (statuses as of 07/07/2022) [address]09-2022 History of Past illness Narrative* Problem Noted Date Resolved Date BPH (benign prostatic hyperplasia) 06/23/2021 documented as of this encounter (statuses as of 07/13/2022) [address]09-2022 History of Past illness Narrative* Problem Noted Date Resolved Date BPH (benign prostatic hyperplasia) 06/23/2021 documented as of this encounter (statuses as of 07/18/2022) [address]09-2022 History of Past illness Narrative* Problem Noted Date Resolved Date BPH (benign prostatic hyperplasia) 06/23/2021 documented as of this encounter (statuses as of 07/26/2022) [address]09-2022 History of Past illness Narrative* Problem Noted Date Resolved Date BPH (benign prostatic hyperplasia) 06/23/2021 documented as of this encounter (statuses as of 08/16/2022) [address]09-2022 History of Past illness Narrative* Problem Noted Date Resolved Date BPH (benign prostatic hyperplasia) 06/23/2021 documented as of this encounter (statuses as of 09/23/2022) [address]09-2022 History of Past illness Narrative* Problem Noted Date Diagnosed Date Resolved Date BPH (benign prostatic hyperplasia) 06/23/2021 documented as of this encounter (statuses as of 11/25/2022) [address]09-2022 History of Past illness Narrative* Problem Noted Date Diagnosed Date Resolved Date BPH (benign prostatic hyperplasia) 06/23/2021 documented as of this encounter (statuses as of 12/08/2022) [address]09-2022 History of Past illness Narrative* Problem Noted Date Diagnosed Date Resolved Date BPH (benign prostatic hyperplasia) 06/23/2021 documented as of this encounter (statuses as of 12/12/2022) [address]09-2022 History of Past illness Narrative* Problem Noted Date Diagnosed Date Resolved Date BPH (benign prostatic hyperplasia) 06/23/2021 documented as of this encounter (statuses as of 12/27/2022) [address]09-2022 History of Past illness Narrative* Problem Noted Date Diagnosed Date Resolved Date BPH (benign prostatic hyperplasia) 06/23/2021 documented as of this encounter (statuses as of 12/29/2022) [address]09-2022 History of Past illness Narrative* Problem Noted Date Diagnosed Date Resolved Date BPH (benign prostatic hyperplasia) 06/23/2021 documented as of this encounter (statuses as of 03/01/2023) [address]09-2022 History of Past illness Narrative* Problem Noted Date Diagnosed Date Resolved Date BPH (benign prostatic hyperplasia) 06/23/2021 documented as of this encounter (statuses as of 03/28/2023) [address]09-2022 History of Past illness Narrative* Problem Noted Date Diagnosed Date Resolved Date BPH (benign prostatic hyperplasia) 06/23/2021 documented as of this encounter (statuses as of 03/28/2023) [address]09-2022 History of Past illness Narrative* Problem Noted Date Diagnosed Date Resolved Date BPH (benign prostatic hyperplasia) 06/23/2021 documented as of this encounter (statuses as of 04/12/2023) [address]09-2022 History of Past illness Narrative* Problem Noted Date Diagnosed Date Resolved Date BPH (benign prostatic hyperplasia) 06/23/2021 documented as of this encounter (statuses as of 06/26/2023) [address]09-2022 History of Past illness Narrative* Problem Noted Date Diagnosed Date Resolved Date BPH (benign prostatic hyperplasia) 06/23/2021 documented as of this encounter (statuses as of 06/27/2023) [address]09-2022 History of Past illness Narrative* Problem Noted Date Diagnosed Date Resolved Date BPH (benign prostatic hyperplasia) 06/23/2021 documented as of this encounter (statuses as of 07/21/2023) [place] [address]09-2022 History of Past illness Narrative* Problem Noted Date Diagnosed Date Resolved Date BPH (benign prostatic hyperplasia) 06/23/2021 documented as of this encounter (statuses as of 08/08/2023) [facility] of [facility] illness Narrative* Problem Noted Date Diagnosed Date Resolved Date BPH (benign prostatic hyperplasia) 06/23/2021 documented as of this encounter (statuses as of 08/18/2023) [facility] History of Past illness Narrative* Problem Noted Date Diagnosed Date Resolved Date BPH (benign prostatic hyperplasia) 06/23/2021 documented as of this encounter (statuses as of 08/24/2023) [facility] History of Past illness Narrative* Problem Noted Date Diagnosed Date Resolved Date BPH (benign prostatic hyperplasia) 06/23/2021 documented as of this encounter (statuses as of 08/31/2023) [facility] + Plan note No data available for this section [facility] General [facility] [place] Evaluation note* Diagnosis 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 Lens replaced by other means Monocular diplopia of right eye [facility]* Diagnosis Prostate cancer (HCC)- Primary Malignant neoplasm of prostate documented [facility]* Diagnosis Prostate cancer (HCC)- Primary Malignant neoplasm of prostate [facility]* Diagnosis 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 Lens replaced by other means Myopia with astigmatism and presbyopia, bilateral PVD (posterior vitreous detachment), both eyes Vitreous degeneration Dry eye syndrome, bilateral documented [facility]* Diagnosis Cancer of prostate w/med recur risk (T2b-c or Kita 7 or PSA 10-20) (HCC) Malignant neoplasm of prostate documented in this encounter [facility] noteNo assessment information availableBrec[facility] Work Phone: Evaluation note* Diagnosis Prostate cancer (HCC)- Primary Malignant neoplasm of prostate Osteopenia of multiple sites Primary hypertension Unspecified essential hypertension documented in this encounter [facility] note* Diagnosis Malignant neoplasm of prostate (HCC)- Primary Malignant neoplasm of prostate [facility]* Diagnosis Malignant neoplasm of prostate (HCC) Malignant neoplasm of prostate [facility]* Diagnosis Screening for genitourinary condition Screening for other and unspecified genitourinary condition documented [facility]* Diagnosis Osteopenia of multiple sites- Primary Prostate cancer (HCC) Malignant neoplasm of prostate [facility]* Diagnosis History of prostate cancer- Primary Personal history of malignant neoplasm of prostate Prostate cancer (HCC) Malignant neoplasm of prostate [facility]* Diagnosis Orthostatic hypotension- Primary [facility]* Diagnosis Orthostatic hypotension- Primary [facility]* Diagnosis Prostate cancer (HCC)- Primary Malignant neoplasm of prostate Osteopenia of multiple sites [facility]* Diagnosis Prostate cancer (HCC)- Primary Malignant neoplasm of prostate Osteopenia of multiple sites [facility]* Diagnosis 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 Lens replaced by other means PVD (posterior vitreous detachment), both eyes Vitreous degeneration documented [facility]* Diagnosis Prostate cancer (HCC)- Primary Malignant neoplasm of prostate documented [facility]* Diagnosis Prostate cancer (HCC)- Primary Malignant neoplasm of prostate Osteopenia of multiple sites [facility]* Diagnosis Onset Date Resolution Status AAA (abdominal aortic aneurysm) acute Carotid stenosis, bilateral acute Current smoker acute [facility] Work Phone: Evaluation note* Diagnosis Prostate cancer (HCC)- Primary Malignant neoplasm of prostate [facility]* Diagnosis Prostate cancer (HCC)- Primary Malignant neoplasm of prostate Osteopenia of multiple sites [facility]* Diagnosis Prostate cancer (HCC)- Primary Malignant neoplasm of prostate Pain of right hip Osteopenia of multiple sites Encounter for screening for osteoporosis Special screening for osteoporosis Hypercalcemia [facility]* Diagnosis Malignant neoplasm of prostate (HCC) Malignant neoplasm of prostate [facility] History of prostate cancer Personal history of malignant neoplasm of prostate Cancer of prostate w/med recur risk (T2b-c or Kita 7 or PSA 10-20) (HCC) Malignant neoplasm of prostate [facility] Prostate cancer (HCC)- Primary Malignant neoplasm of prostate Osteopenia of multiple sites [facility] Diagnosis Malignant neoplasm of prostate (HCC)- Primary Malignant neoplasm of prostate [facility] Diagnosis Onychomycosis- Primary Dermatophytosis of nail Peripheral arterial disease (CMS/HCC) Unspecified peripheral vascular disease Corns and callosities 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 [facility] Malignant neoplasm of prostate (HCC) Malignant neoplasm of prostate [facility] Diagnosis Malignant neoplasm of prostate (HCC)- Primary Malignant neoplasm of prostate [facility] N[facility]* Patient returns in [...] plan to see him in several months. -[facility] [address] DO Work Phone: Hospital Discharge instructions No data available for this section [facility] [place] InstructionsNot on filedocumented in this encounter [facility] No data available for this section [facility] General Surgery Jitendra Reason for referral (narrative)* Diagnostic Procedure Only (Routine) - Pending Review Specialty Diagnoses / Procedures Referred By Contac t Referred To Contact MOLECULAR & FUNCTIONAL IMAGING Diagnoses History of prostate cancer Cancer of prostate w/med recur risk (T2b-c or Kita 7 or PSA 10-20) (HCC) Procedures NM PET/CT PROSTATE WHOLE BODY IMAGING PET IMAGING CT ATTENUATION SKULL BASE [place] Liv Guzman MD [address] [place] [address] [place] [address] Molecular & Functional Imaging [address] [place] [address] Referral ID Status Reason Start Date Expiration Date Visits Requested Visits Authorized [id number] Pending Review Auto-Generat ed Referral 05/22/2022 04/21/2023 [facility] (narrative)* Diagnostic Procedure Only (Routine) - Authorized Specialty Diagnoses / Procedures Referred By Contac t Referred To Contact MOLECULAR & FUNCTIONAL IMAGING Diagnoses Prostate cancer (HCC) Procedures NM PET/CT PROSTATE WHOLE BODY IMAGING PET IMAGING CT ATTENUATION SK[employer] BASE [employer]IGH Liv Guzman MD [address] [place] [address] [place] [address] Molecular & Functional Imaging [address] [place] [address] Referral ID Status Reason Start Date Expiration Date Visits Requested Visits Authorized [id number] Authorized Auto-Generat ed Referral 05/26/2023 03/24/2024 1 1 [facility] for referral (narrative)* Diagnostic Procedure Only (Routine) - New Request Specialty Diagnoses / Procedures Referred By Contac t Referred To Contact XR IMAGING Diagnoses Prostate cancer (HCC) Pain of right hip Osteopenia of multiple sites Procedures DXA-AXIAL SKELETON Isadora Carty PA-C [address] [place] [address] [place] [address] Referral ID Status Reason Start Date Expiration Date Visits Requested Visits Authorized [id number] New Request Auto-Generat ed Referral 12/20/2023 01/18/2025 1 1 * Diagnostic Procedure Only (Routine) - New Request Specialty Diagnoses / Procedures Referred By Contac t Referred To Contact XR IMAGING Diagnoses Prostate cancer (HCC) Pain of right hip Procedures XR PELVIS 2V INLET/OUTLET RADIOLOGIC EXAMINATION PELVIS 1/2 VIEWS Isadora Carty PA-C [address] [place] [address] [place] [address] [place] [address] Referral ID Status Reason Start Date Expiration Date Visits Requested Visits Authorized [id number] New Request Auto-Generat ed Referral 12/20/2023 01/18/2025 1 1 * Diagnostic Procedure Only (Routine) - New Request Specialty Diagnoses / Procedures Referred By Contac t Referred To Contact XR IMAGING Diagnoses Prostate cancer (HCC) Pain of right hip Procedures XR HIP 2V AP/LAT RIGHT (AK,FL,ME,UN) RADEX HIP UNILATERAL WITH PELVIS 2-3 VIEWS Isadora Carty PA-C [address] [place] [address] [place] [address] [place] [address] Referral ID Status Reason Start Date Expiration Date Visits Requested Visits Authorized [id number] New Request Auto-Generat ed Referral 12/20/2023 01/18/2025 1 1 [facility] for referral (narrative)* Diagnostic Procedure Only (Routine) - Closed Specialty Diagnoses / Procedures Referred By Contac t Referred To Contact MOLECULAR & FUNCTIONAL IMAGING Diagnoses Malignant neoplasm of prostate (HCC) Procedures NM PET/CT PROSTATE WHOLE BODY IMAGING PET IMAGING CT ATTENUATION SKULL [employer]ASE [employer]-THIGH James House MD [address] [id number] Molecular & Functional Imaging [address] [place] [address] Referral ID Status Reason Start Date Expiration Date V isits Requested Visits Authorized [id number] Closed Auto-Generate d Referral 01/04/2023 02/03/2024 1 1 [facility] for referral (narrative)* Diagnostic Procedure Only (Routine) - Closed Specialty Diagnoses / Procedures Referred By Contac t Referred To Contact MOLECULAR & FUNCTIONAL IMAGING Diagnoses History of prostate cancer Cancer of prostate w/med recur risk (T2b-c or Kita 7 or PSA 10-20) (HCC) Procedures NM PET/CT PROSTATE WHOLE BODY IMAGING PET IMAGING CT ATTENUATION SKULL BASE MID-THIGH F-18 PSMA Liv De Leon MD [address] [facility] [place] [address] Molecular & Functional Imaging [address] [place] [address] Referral ID Status Reason Start Date Expiration Date V isits Requested Visits Authorized [id number] Closed Auto-Generate d Referral 05/06/2022 08/03/2022 1 1 [facility] for referral (narrative)* Diagnostic Procedure Only (Routine) - New Request Specialty Diagnoses / Procedures Referred By Contac t Referred To Contact MOLECULAR & FUNCTIONAL IMAGING Diagnoses Malignant neoplasm of prostate (HCC) Procedures NM PET/CT PROSTATE WHOLE BODY IMAGING PET IMAGING CT ATTENUATION SKULL BASE [employer]-THIGH Liv Guzman MD [address] [place] [address] Molecular & Functional Imaging [address] [place] [address] Referral ID Status Reason Start Date Expiration Date Visits Requested Visits Authorized [id number] New Request Auto-Generat ed Referral 05/17/2024 03/16/2025 1 1 [facility] for referral (narrative)* Diagnostic Procedure Only (Routine) - Closed Specialty Diagnoses / Procedures Referred By Contjudie t Referred To Contact MOLECULAR & FUNCTIONAL IMAGING Diagnoses Malignant neoplasm of prostate (HCC) Procedures NM PET/CT PROSTATE WHOLE BODY IMAGING PET IMAGING CT ATTENUATION SKULL BASE [employer]THIGH Liv Guzman MD [address] [place] [address] [place] [address] Molecular & Functional Imaging [address] [place] [address] Referral ID Status Reason Start Date Expiration Date V isits Requested Visits Authorized [id number] Closed Auto-Generate d Referral 05/24/2024 08/21/2024 1 1 [facility] Summary Purpose Family History [...] disease Unknown Malignant neoplasm Unknown Advance Directives No Advanced Directives Records FoundDocuments on File 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 Date 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 Advance Directive(s) 06/24/2021 8:42 AM Advance Directive(s) 11/08/2019 9:14 AM Advance Directive Response Recorded Date/ Time Advance Directives No September 12, 2018 6:07pm Advance Directive Response Recorded Date/ Time Advance Directives No September 12, 2018 5:07pm Reason for Referral Specialty Diagnoses / Procedures Referred By Tori millan Referred To Contact Oncology Diagnoses Cancer of prostate w/med recur risk (T2b-c or Kita 7 or PSA 10-20) (HCC) Procedures CONSULT TO ONCOLOGY OFFICE/OUTPATIENT NEW HIGH MDM 60-74 MINUTES Liv Guzman MD [address] [place] [address] [place] [address] Referral ID Status Reason Start Date Expiration Date Visits Requested Visits Authorized [id number] Pending Review PCP Requested Referral 06/07/2022 06/07/2023 1 1 Specialty Diagnoses / Procedures Referred By Contac t Referred To Contact MR IMAGING Diagnoses Cancer of prostate w/med recur risk (T2b-c or Kita 7 or PSA 10-20) (HCC) Procedures MRI PROSTATE WO/W IVCON MRI PELVIS W/O & W/CONTRAST MATERIAL Liv Guzman MD [address] [place] [address] [place] [address] Mr Imaging Referral ID Status Reason Start Date Expiration Date Visits Requested Visits Authorized [id number] Authorized Auto-Generat ed Referral 06/07/2022 07/07/2023 1 1 Referral ID Status Reason Start Date Expiration Date V isits Requested Visits Authorized [id number] Closed Auto-Generate d Referral 06/07/2022 07/07/2023 1 1 Specialty Diagnoses / Procedures Referred By Contac t Referred To Contact Urology Diagnoses Malignant neoplasm of prostate (HCC) Procedures CONSULT TO UROLOGY OFFICE/OUTPATIENT [facility] 60-74 MINUTES Liv Guzman MD [address] [place] [address] [place] [address] Referral ID Status Reason Start Date Expiration Date Visits Requested Visits Authorized [id number] Pending Review PCP Requested Referral 11/24/2022 11/24/2023 1 1 Specialty Diagnoses / Procedures Referred By Contac t Referred To Contact Radiation Oncology Diagnoses Malignant neoplasm of prostate (HCC) Procedures RAD/ONC CONSULT OFFICE/OUTPATIENT [facility] 60-74 MINUTES Manny Meza MD [address] [facility] [address] [place] [address] Referral ID Status Reason Start Date Expiration Date Visits Requested Visits Authorized [id number] Pending Review PCP Requested Referral 12/07/2022 12/07/2023 [...] stenosis, bilateral Current smoker Chief Complaint JM BARROW is being seen [...] section and content) DATE CREATED AUTHOR 11/07/2017 [facility] DATE CREATED AUTHOR AUTHOR'S ORGANIZ ATION [facility]04[facility]2022 [facility] DATE CREATED AUTHOR AUTHOR'S ORGANIZ ATION 08/18/2022 [facility] DATE CREATED AUTHOR AUTHOR'S ORGANIZ ATION 10/25/2022 [employer] DATE CREATED AUTHOR AUTHOR'S ORGANIZ ATION 10/25/2022 [facility] DATE CREATED AUTHOR AUTHOR'S ORGANIZ ATION 02/19/2023 [facility] DATE CREATED AUTHOR AUTHOR'S ORGANIZ ATION 10/18/2023 [facility] DATE CREATED AUTHOR AUTHOR'S ORGANIZ ATION 12/08/2023 [facility] DATE CREATED AUTHOR AUTHOR'S ORGANIZ ATION 01/12/2024 [facility] DATE CREATED AUTHOR AUTHOR'S ORGANIZ ATION 04/28/2024 [facility] DATE CREATED AUTHOR AUTHOR'S ORGANIZ ATION 05/24/2024 [facility] DATE CREATED AUTHOR AUTHOR'S ORGANIZ ATION 05/24/2024 [facility] DATE CREATED AUTHOR AUTHOR'S ORGANIZ ATION 06/08/2024 [facility] Source Comments (unrecognize d section and content) In the event this informatio n is protected by the Federal Confidentiality of Alcohol and Drug Abuse Patient Records regulations: The Federal rules restrict any use of the information to criminally investigate or prosecute any alcohol or drug abuse patient.[facility] the event this information is protected by the Federal Confidentiality of Alcohol and Drug Abuse Patient Records regulations: The Federal rules restrict any use of the information to criminally investigate or prosecute any alcohol or drug abuse patient.[facility] CenterIn the event this information is protected by the Federal Confidentiality of Alcohol and Drug Abuse Patient Records regulations: The Federal rules restrict any use of the information to criminally investigate or prosecute any alcohol or drug abuse patient.[facility] CenterIn the event this information is protected by the Federal Confidentiality of Alcohol and Drug Abuse Patient Records regulations: The Federal rules restrict any use of the information to criminally investigate or prosecute any alcohol or drug abuse patient.[facility] CenterIn the event this information is protected by the Federal Confidentiality of Alcohol and Drug Abuse Patient Records regulations: The Federal rules restrict any use of the information to criminally investigate or prosecute any alcohol or drug abuse patient.[facility] CenterIn the event this information is protected by the Federal Confidentiality of Alcohol and Drug Abuse Patient Records regulations: The Federal rules restrict any use of the information to criminally investigate or prosecute any alcohol or drug abuse patient.[facility] CenterIn the event this information is protected by the Federal Confidentiality of Alcohol and Drug Abuse Patient Records regulations: The Federal rules restrict any use of the information to criminally investigate or prosecute any alcohol or drug abuse patient.[facility] CenterIn the event this information is protected by the Federal Confidentiality of Alcohol and Drug Abuse Patient Records regulations: The Federal rules restrict any use of the information to criminally investigate or prosecute any alcohol or drug abuse patient.[facility] CenterIn the event this information is protected by the Federal Confidentiality of Alcohol and Drug Abuse Patient Records regulations: The Federal rules restrict any use of the information to criminally investigate or prosecute any alcohol or drug abuse patient.[facility] CenterIn the event this information is protected by the Federal Confidentiality of Alcohol and Drug Abuse Patient Records regulations: The Federal rules restrict any use of the information to criminally investigate or prosecute any alcohol or drug abuse patient.[facility] CenterIn the event this information is protected by the Federal Confidentiality of Alcohol and Drug Abuse Patient Records regulations: The Federal rules restrict any use of the information to criminally investigate or prosecute any alcohol or drug abuse patient.[facility] CenterIn the event this information is protected by the Federal Confidentiality of Alcohol and Drug Abuse Patient Records regulations: The Federal rules restrict any use of the information to criminally investigate or prosecute any alcohol or drug abuse patient.[facility] CenterIn the event this information is protected by the Federal Confidentiality of Alcohol and Drug Abuse Patient Records regulations: The Federal rules restrict any use of the information to criminally investigate or prosecute any alcohol or drug abuse patient.[facility] CenterIn the event this information is protected by the Federal Confidentiality of Alcohol and Drug Abuse Patient Records regulations: The Federal rules restrict any use of the information to criminally investigate or prosecute any alcohol or drug abuse patient.[facility] CenterIn the event this information is protected by the Federal Confidentiality of Alcohol and Drug Abuse Patient Records regulations: The Federal rules restrict any use of the information to criminally investigate or prosecute any alcohol or drug abuse patient.[facility] CenterIn the event this information is protected by the Federal Confidentiality of Alcohol and Drug Abuse Patient Records regulations: The Federal rules restrict any use of the information to criminally investigate or prosecute any alcohol or drug abuse patient.[facility] CenterIn the event this information is protected by the Federal Confidentiality of Alcohol and Drug Abuse Patient Records regulations: The Federal rules restrict any use of the information to criminally investigate or prosecute any alcohol or drug abuse patient.[facility] CenterIn the event this information is protected by the Federal Confidentiality of Alcohol and Drug Abuse Patient Records regulations: The Federal rules restrict any use of the information to criminally investigate or prosecute any alcohol or drug abuse patient.[facility] CenterIn the event this information is protected by the Federal Confidentiality of Alcohol and Drug Abuse Patient Records regulations: The Federal rules restrict any use of the information to criminally investigate or prosecute any alcohol or drug abuse patient.[facility] CenterIn the event this information is protected by the Federal Confidentiality of Alcohol and Drug Abuse Patient Records regulations: The Federal rules restrict any use of the information to criminally investigate or prosecute any alcohol or drug abuse patient.[facility] CenterIn the event this information is protected by the Federal Confidentiality of Alcohol and Drug Abuse Patient Records regulations: The Federal rules restrict any use of the information to criminally investigate or prosecute any alcohol or drug abuse patient.[facility] CenterIn the event this information is protected by the Federal Confidentiality of Alcohol and Drug Abuse Patient Records regulations: The Federal rules restrict any use of the information to criminally investigate or prosecute any alcohol or drug abuse patient.[facility] CenterIn the event this information is protected by the Federal Confidentiality of Alcohol and Drug Abuse Patient Records regulations: The Federal rules restrict any use of the information to criminally investigate or prosecute any alcohol or drug abuse patient.[facility] CenterIn the event this information is protected by the Federal Confidentiality of Alcohol and Drug Abuse Patient Records regulations: The Federal rules restrict any use of the information to criminally investigate or prosecute any alcohol or drug abuse patient.[facility] CenterIn the event this information is protected by the Federal Confidentiality of Alcohol and Drug Abuse Patient Records regulations: The Federal rules restrict any use of the information to criminally investigate or prosecute any alcohol or drug abuse patient.[facility] CenterIn the event this information is protected by the Federal Confidentiality of Alcohol and Drug Abuse Patient Records regulations: The Federal rules restrict any use of the information to criminally investigate or prosecute any alcohol or drug abuse patient.[facility] CenterIn the event this information is protected by the Federal Confidentiality of Alcohol and Drug Abuse Patient Records regulations: The Federal rules restrict any use of the information to criminally investigate or prosecute any alcohol or drug abuse patient.[facility] CenterIn the event this information is protected by the Federal Confidentiality of Alcohol and Drug Abuse Patient Records regulations: The Federal rules restrict any use of the information to criminally investigate or prosecute any alcohol or drug abuse patient.[facility] CenterIn the event this information is protected by the Federal Confidentiality of Alcohol and Drug Abuse Patient Records regulations: The Federal rules restrict any use of the information to criminally investigate or prosecute any alcohol or drug abuse patient.[facility] CenterIn the event this information is protected by the Federal Confidentiality of Alcohol and Drug Abuse Patient Records regulations: The Federal rules restrict any use of the information to criminally investigate or prosecute any alcohol or drug abuse patient.[facility] CenterIn the event this information is protected by the Federal Confidentiality of Alcohol and Drug Abuse Patient Records regulations: The Federal rules restrict any use of the information to criminally investigate or prosecute any alcohol or drug abuse patient.[facility] CenterIn the event this information is protected by the Federal Confidentiality of Alcohol and Drug Abuse Patient Records regulations: The Federal rules restrict any use of the information to criminally investigate or prosecute any alcohol or drug abuse patient.[facility] CenterIn the event this information is protected by the Federal Confidentiality of Alcohol and Drug Abuse Patient Records regulations: The Federal rules restrict any use of the information to criminally investigate or prosecute any alcohol or drug abuse patient.[facility] CenterIn the event this information is protected by the Federal Confidentiality of Alcohol and Drug Abuse Patient Records regulations: The Federal rules restrict any use of the information to criminally investigate or prosecute any alcohol or drug abuse patient.[facility] CenterIn the event this information is protected by the Federal Confidentiality of Alcohol and Drug Abuse Patient Records regulations: The Federal rules restrict any use of the information to criminally investigate or prosecute any alcohol or drug abuse patient.[facility] CenterIn the event this information is protected by the Federal Confidentiality of Alcohol and Drug Abuse Patient Records regulations: The Federal rules restrict any use of the information to criminally investigate or prosecute any alcohol or drug abuse patient.[facility] CenterIn the event this information is protected by the Federal Confidentiality of Alcohol and Drug Abuse Patient Records regulations: The Federal rules restrict any use of the information to criminally investigate or prosecute any alcohol or drug abuse patient.[facility] CenterIn the event this information is protected by the Federal Confidentiality of Alcohol and Drug Abuse Patient Records regulations: The Federal rules restrict any use of the information to criminally investigate or prosecute any alcohol or drug abuse patient.[facility] CenterIn the event this information is protected by the Federal Confidentiality of Alcohol and Drug Abuse Patient Records regulations: The Federal rules restrict any use of the information to criminally investigate or prosecute any alcohol or drug abuse patient.[facility] CenterIn the event this information is protected by the Federal Confidentiality of Alcohol and Drug Abuse Patient Records regulations: The Federal rules restrict any use of the information to criminally investigate or prosecute any alcohol or drug abuse patient.[facility] CenterIn the event this information is protected by the Federal Confidentiality of Alcohol and Drug Abuse Patient Records regulations: The Federal rules restrict any use of the information to criminally investigate or prosecute any alcohol or drug abuse patient.[facility] CenterIn the event this information is protected by the Federal Confidentiality of Alcohol and Drug Abuse Patient Records regulations: The Federal rules restrict any use of the information to criminally investigate or prosecute any alcohol or drug abuse patient.[facility] CenterIn the event this information is protected by the Federal Confidentiality of Alcohol and Drug Abuse Patient Records regulations: The Federal rules restrict any use of the information to criminally investigate or prosecute any alcohol or drug abuse patient.[facility] CenterIn the event this information is protected by the Federal Confidentiality of Alcohol and Drug Abuse Patient Records regulations: The Federal rules restrict any use of the information to criminally investigate or prosecute any alcohol or drug abuse patient.[facility] CenterIn the event this information is protected by the Federal Confidentiality of Alcohol and Drug Abuse Patient Records regulations: The Federal rules restrict any use of the information to criminally investigate or prosecute any alcohol or drug abuse patient.[facility] Reason for Visit (unrecogniz ed section and content) Reason Comments Refraction Reason Comments Prostate Cancer Reason Comments Nm Pet Request Reason Comments Consult Prostate Cancer Specialty Diagnoses / Procedures Referred By [facility] Referred To Contact Oncology Diagnoses Cancer of prostate w/med recur risk (T2b-c or Kita 7 or PSA 10-20) (HCC) Procedures CONSULT TO ONCOLOGY OFFICE/OUTPATIENT NEW HIGH MDM 60-74 MINUTES Liv Guzman MD [address] [place] [address] [place] [address] Referral ID Status Reason Start Date Expiration Date Visits Requested Visits Authorized [id number] Pending Review PCP Requested Referral 06/07/2022 06/07/2023 1 1 Reason Comments Medication Update Xtandi Reason Comments Medication Authorization Xtandi Reason Comments Medication Update FYI patient deciding to move forward with Xtandi beyond 14 day free trial. Specialty Diagnoses / Procedures Referred By [facility] Referred To Contact Diagnoses Prostate cancer (HCC) Procedures LEUPROLIDE ACETATE SUSPNSION Jose Francisco Broussard MD [address] [place] [address] [place] [address] [facility] [address] [place] [address] Referral ID Status Reason Start Date Expiration Date V isits Requested Visits Authorized [id number] Authorized 07/07/2022 07/07/2023 4 4 Reason Comments Medication Problem Reason Comments Yearly Exam Reason Comments Care Coordination Medication update Specialty Diagnoses / Procedures Referred By [facility] Referred To Contact MR IMAGING Diagnoses Cancer of prostate w/med recur risk (T2b-c or Kita 7 or PSA 10-20) (HCC) Procedures MRI PROSTATE WO/W IVCON MRI PELVIS W/O & W/CONTRAST MATERIAL Liv Guzman MD [address] [place] [address] [place] [address] Mr Imaging Referral ID Status Reason Start Date Expiration Date V isits Requested Visits Authorized [id number] Closed Auto-Generate d Referral 06/07/2022 07/07/2023 1 1 Reason Comments Prostate Cancer 2 month follow up Reason Comments Prostate Cancer Follow up Reason Comments Consult Specialty Diagnoses / Procedures Referred By Contac t Referred To Contact Urology Diagnoses Malignant neoplasm of prostate (HCC) Procedures CONSULT TO UROLOGY OFFICE/OUTPATIENT NEW HIGH MDM 60-74 MINUTES Liv Guzman MD [address] [place] [address] [place] [address] Referral ID Status Reason Start Date Expiration Date Visits Requested Visits Authorized [id number] Pending Review PCP Requested Referral 11/24/2022 11/24/2023 1 1 Reason Comments Care Coordination Radiation Appointmen t Referral ID Status Reason Start Date Expiration Date V isits Requested Visits Authorized [id number] Authorized 07/07/2022 07/07/2024 6 9 Reason Comments Prostate Cancer Specialty Diagnoses / Procedures Referred By Contac t Referred To Contact Diagnoses Prostate cancer (HCC) Procedures LEUPROLIDE ACETATE SUSPNSION Jose Francisco Broussard MD [address] [place] [address] [place] [address] Christiano Treat [address] [place] [address] Reason Comments Pseudophakia Reason Comments Lab Orders Reason Comments Refill Request Reason Comments Results Reason Comments Care Coordination Labs Specialty Diagnoses / Procedures Referred By Contac t Referred To Contact Diagnoses Prostate cancer (HCC) Osteopenia of multiple sites Procedures DENOSUMAB INJECTION Jose Francisco Broussard MD [address] [place] [address] [place] [address] Christiano Treat [address] [place] [address] Referral ID Status Reason Start Date Expiration Date V isits Requested Visits Authorized [id number] New Request 09/22/2022 12/16/2024 4 4 Reason Comments Prostate Cancer Reason Comments Radiology NM Specialty Diagnoses / Procedures Referred By Contac t Referred To Contact MOLECULAR & FUNCTIONAL IMAGING Diagnoses Malignant neoplasm of prostate (HCC) Procedures NM PET/CT PROSTATE WHOLE BODY IMAGING PET IMAGING CT ATTENUATION SKULL BASE MID-THIGH James House MD [address] [id number] Molecular & Functional Imaging [address] [place] [address] Referral ID Status Reason Start Date Expiration Date V isits Requested Visits Authorized [id number] Closed Auto-Generate d Referral 01/04/2023 02/03/2024 1 1 Specialty Diagnoses / Procedures Referred By Contac t Referred To Contact MOLECULAR & FUNCTIONAL IMAGING Diagnoses History of prostate cancer Cancer of prostate w/med recur risk (T2b-c or Kita 7 or PSA 10-20) (HCC) Procedures NM PET/CT PROSTATE WHOLE BODY IMAGING PET IMAGING CT ATTENUATION SKULL BASE MID-THIGH F-18 PSMA Liv De Leon MD [address] [facility] [place] [address] Molecular & Functional Imaging [address] [place] [address] Referral ID Status Reason Start Date Expiration Date V isits Requested Visits Authorized [id number] Closed Auto-Generate d Referral 05/06/2022 08/03/2022 1 1 Reason Comments Prostate Cancer 8 week follow up Specialty Diagnoses / Procedures Referred By Contac t Referred To Contact MOLECULAR & FUNCTIONAL IMAGING Diagnoses Malignant neoplasm of prostate (HCC) Procedures NM PET/CT PROSTATE WHOLE BODY IMAGING PET IMAGING CT ATTENUATION SKULL BASE MID-THIGH Liv Guzman MD [address] [place] [address] [place] [address] Molecular & Functional Imaging [address] [place] [address] Referral ID Status Reason Start Date Expiration Date V isits Requested Visits Authorized [id number] Closed Auto-Generate d Referral 05/24/2024 08/21/2024 1 1 Reason Onset Date Comments Lab Orders 06/06/2024 Care Teams (unrecognized sec tion and content) [employer] Relationship Specialty Start Date End Date Arline Orosco MD PCP - General Family Practice 06/02/11 Dawna Patrick Urology 02/10/14 [employer] Relationship Specialty Start Date End Date Arline Orosco MD PCP - General Family Medicine 06/02/11 Dawna Patrick Urology 02/10/14 [employer] Relationship Specialty Start Date End Date Arline Orosco MD PCP - General Family Medicine 06/02/11 Dawan Patrick Urology 02/10/14 [employer] Relationship Specialty Start Date End Date Arline Orosco MD PCP - General Family Medicine 06/02/11 Dawna Patrick Urology 02/10/14 [employer] Relationship Specialty Start Date End Date Arline Orosco MD PCP - General Family Medicine 06/02/11 Dawna Patrick Urology 02/10/14 [employer] Relationship Specialty Start Date End Date Arline Orosco MD PCP - General Family Medicine 06/02/11 Dawna Patrick Urology 02/10/14 [employer] Relationship Specialty Start Date End Date Arline Orosco MD PCP - General Family Medicine 06/02/11 Dawna Patrick Urology 02/10/14 [employer] Relationship Specialty Start Date End Date Arline Orosco MD PCP - General Family Medicine 06/02/11 Dawna Patrick Urology 02/10/14 Jose Francisco Broussard MD [address] [facility] [place] [address] Physician Hematology/Oncology 06/27/22 Christiano Cardenas, FUEL DISTRIBUTION SYSTEM OPERATOR.[facility] [address] [place] [address] Nurse Practitioner Hematology/Oncology 06/27/22 Umer Dale, RN [address] [facility] [place] [address] Specialty Waiter/Waitress Hematology/Oncology 06/27/22 [employer] Relationship Specialty Start Date End Date Arline Orosco MD PCP - General Family Medicine 06/02/11 Dawna Patrick Urology 02/10/14 Jose Francisco Broussard MD [address] [facility] [place] [address] Physician Hematology/Oncology 06/27/22 Christiano Cardenas, FUEL DISTRIBUTION SYSTEM OPERATOR.[facility] [address] [place] [address] Nurse Practitioner Hematology/Oncology 06/27/22 Umer Dale, RN [address] [facility] [place] [address] Specialty Waiter/Waitress Hematology/Oncology 06/27/22 [employer] Relationship Specialty Start Date End Date Arline Orosco MD PCP - General Family Medicine 06/02/11 Dawna Patrick Urology 02/10/14 Jose Francisco Broussard MD [address] [facility] [place] [address] Physician Hematology/Oncology 06/27/22 Christiano Cardenas, FUEL DISTRIBUTION SYSTEM OPERATOR.[facility] [address] [place] [address] Nurse Practitioner Hematology/Oncology 06/27/22 Umer Dale, HITESH [address] [place] [address] Specialty Waiter/Waitress Hematology/Oncology 06/27/22 [employer] Relationship Specialty Start Date End Date Arline Orosco MD PCP - General Family Medicine 06/02/11 Dawna Patrick Urology 02/10/14 Jose Francisco Broussard MD [address] [facility] [place] [address] Physician Hematology/Oncology 06/27/22 Christiano Cardenas, FUEL DISTRIBUTION SYSTEM OPERATOR.[facility] [address] [place] [address] Nurse Practitioner Hematology/Oncology 06/27/22 Umer Dale, RN [address] [facility] [facility] [address] [place], [place] [address] Specialty Waiter/Waitress Hematology/Oncology 06/27/22 [employer] Relationship Specialty Start Date End Date Arline Orosco MD PCP - General Family Medicine 06/02/11 Dawna Patrick Urology 02/10/14 Jose Francisco Broussard MD [address] [place] [address] Physician Hematology/Oncology 06/27/22 Christiano Cardenas, FUEL DISTRIBUTION SYSTEM OPERATOR.[facility] [address] [place] [address] Nurse Practitioner Hematology/Oncology 06/27/22 Umer Dale, HITESH [address] [place] [address] Specialty Waiter/Waitress Hematology/Oncology 06/27/22 Team Status: Active Member Role Status Dates Arline Orosco MD Primary Care Provider Active Team Status: Inactive Member Role Status Dates Arline Orosco MD Primary Care Provider Active Clarence Gregory MD Attending Provider Active [employer] Relationship Specialty Start Date End Date Arline Orosco MD PCP - General Family Medicine 06/02/11 Dawna Patrick Urology 02/10/14 Jose Francisco Broussard MD [address] [place] [address] Physician Hematology/Oncology 06/27/22 Christiano Cardenas, FUEL DISTRIBUTION SYSTEM OPERATOR.[facility] [address] [place] [address] Nurse Practitioner Hematology/Oncology 06/27/22 Umer Dale, HITESH [address] [place] [address] Specialty Waiter/Waitress Hematology/Oncology 06/27/22 [employer] Relationship Specialty Start Date End Date Arline Orosco MD PCP - General Family Medicine 06/02/11 Dawna Patrick Urology 02/10/14 Jose Francisco Broussard MD [address] [place] [address] Physician Hematology/Oncology 06/27/22 Christiano Cardenas, FUEL DISTRIBUTION SYSTEM OPERATOR.FEED ADVISER [address] [place] [address] Nurse Practitioner Hematology/Oncology 06/27/22 Umer Dale, HITESH [address] [place] [address] Specialty Waiter/Waitress Hematology/Oncology 06/27/22 [employer] Relationship Specialty Start Date End Date Arline Orosco MD PCP - General Family Medicine 06/02/11 Dawna Patrick Urology 02/10/14 Jose Francisco Broussard MD [address] [place] [address] [place] [address] Physician Hematology/Oncology 06/27/22 Christiano Cardenas, FUEL DISTRIBUTION SYSTEM OPERATOR.FEED ADVISER [address] [place] [address] Nurse Practitioner Hematology/Oncology 06/27/22 Umer Dale, HITESH [address] [facility] [place] [address] Specialty Waiter/Waitress Hematology/Oncology 06/27/22 [employer] Relationship Specialty Start Date End Date Arline Orosco MD PCP - General Family Medicine 06/02/11 Dawna Patrick Urology 02/10/14 Jose Francisco Broussard MD [address] [place] [address] [place] [address] Physician Hematology/Oncology 06/27/22 Christiano Cardenas, FUEL DISTRIBUTION SYSTEM OPERATOR.FEED ADVISER [address] [place] [address] [place] [address] Nurse Practitioner Hematology/Oncology 06/27/22 Umer Dale, HITESH [address] [facility] [place] [address] Specialty Waiter/Waitress Hematology/Oncology 06/27/22 [employer] Relationship Specialty Start Date End Date Arline Orosco MD PCP - General Family Medicine 06/02/11 Dawna Patrick Urology 02/10/14 Jose Francisco Broussard MD [address] [place] [address] [place] [address] Physician Hematology/Oncology 06/27/22 Christiano Cardenas, FUEL DISTRIBUTION SYSTEM OPERATOR.FEED ADVISER [address] [place] [address] [place] [address] Nurse Practitioner Hematology/Oncology 06/27/22 Umer Dale, HITEHS [address] [place] [address] Specialty Waiter/Waitress Hematology/Oncology 06/27/22 [employer] Relationship Specialty Start Date End Date Arline Orosco MD PCP - General Family Medicine 06/02/11 Dawna Patrick Urology 02/10/14 Jose Francisco Broussard MD [address] [facility] [place] [address] Physician Hematology/Oncology 06/27/22 Christiano Cardenas, FUEL DISTRIBUTION SYSTEM OPERATOR.FEED ADVISER [address] [facility] [place] [address] Nurse Practitioner Hematology/Oncology 06/27/22 Umer Dale, HITESH [address] [facility] [place] [address] Specialty Waiter/Waitress Hematology/Oncology 06/27/22 [employer] Relationship Specialty Start Date End Date Arline Orosco MD PCP - General Family Medicine 06/02/11 Dawna Patrick Urology 02/10/14 Jose Francisco Broussard MD [address] [place] [address] [place] [address] Physician Hematology/Oncology 06/27/22 Christiano Cardenas, FUEL DISTRIBUTION SYSTEM OPERATOR.FEED ADVISER [address] [facility] [place] [address] Nurse Practitioner Hematology/Oncology 06/27/22 Umer Dale, HITESH [address] [facility] [place] [address] Specialty Waiter/Waitress Hematology/Oncology 06/27/22 [employer] Relationship Specialty Start Date End Date Arline Orosco MD PCP - General Family Medicine 06/02/11 Dawna Patrick Urology 02/10/14 Jose Francisco Broussard MD [address] [facility] [place] [address] Physician Hematology/Oncology 06/27/22 Christiano Cardenas APRN.FEED ADVISER [address] [facility] [place] [address] Nurse Practitioner Hematology/Oncology 06/27/22 Umer Dale, HITESH [address] [facility] [place] [address] Specialty Waiter/Waitress Hematology/Oncology 06/27/22 [employer] Relationship Specialty Start Date End Date Arline Orosco MD PCP - General Family Medicine 06/02/11 Dawna Patrick Urology 02/10/14 Jose Francisco Broussard MD [address] [facility] [place] [address] Physician Hematology/Oncology 06/27/22 Christiano Cardenas, CAMILLE.FEED ADVISER [address] [facility] [place] [address] Nurse Practitioner Hematology/Oncology 06/27/22 Umer Dale, HITESH [address] [facility] [place] [address] Specialty Waiter/Waitress Hematology/Oncology 06/27/22 [employer] Relationship Specialty Start Date End Date Arline Orosco MD PCP - General Family Medicine 06/02/11 Dawna Patrick Urology 02/10/14 Jose Francisco Broussard MD [address] [facility] [place] [address] Physician Hematology/Oncology 06/27/22 Christiano Cardenas APRN.FEED ADVISER [address] [facility] [place] [address] Nurse Practitioner Hematology/Oncology 06/27/22 Umer Dale, RN [address] [facility] [place] [address] Specialty Waiter/Waitress Hematology/Oncology 06/27/22 Inspector [employer] Relationship Specialty Start Date End Date Arline Orosco MD [address] [place] [address] PCP - General 06/05/13 [employer] Relationship Specialty Start Date End Date Arline Orosco MD PCP - General Family Medicine 06/02/11 Dawna Patrick Urology 02/10/14 Jose Francisco Broussard MD [address] [facility] [place] [address] Physician Hematology/Oncology 06/27/22 Christiano Cardenas APRN.FEED ADVISER [address] [facility] [place] [address] Nurse Practitioner Hematology/Oncology 06/27/22 Umer Dale, HITESH [address] [facility] [place] [address] Specialty Waiter/Waitress Hematology/Oncology 06/27/22 [employer] Relationship Specialty Start Date End Date Arline Orosco MD PCP - General Family Medicine 06/02/11 Dawna Patrick Urology 02/10/14 Jose Francisco Broussard MD [address] [facility] [place] [address] Physician Hematology/Oncology 06/27/22 Christiano Cardenas APRN.FEED ADVISER [address] [facility] [place] [address] Nurse Practitioner Hematology/Oncology 06/27/22 Umer Dale, HITESH [address] [facility] [place] [address] Specialty Waiter/Waitress Hematology/Oncology 06/27/22 [employer] Relationship Specialty Start Date End Date Arline Orosco MD PCP - General Family Medicine 06/02/11 Dawna Patrick Urology 02/10/14 Jose Francisco Broussard MD [address] [facility] [place] [address] Physician Hematology/Oncology 06/27/22 Christiano Cardenas APRN.FEED ADVISER [address] [facility] [place] [address] Nurse Practitioner Hematology/Oncology 06/27/22 Umer Dale, RN [address] [facility] [place] [address] Specialty Waiter/Waitress Hematology/Oncology 06/27/22 [employer] Relationship Specialty Start Date End Date Arline Orosco MD PCP - General Family Medicine 06/02/11 Dawna Patrick Urology 02/10/14 Jose Francisco Broussard MD [address] [facility] [place] [address] Physician Hematology/Oncology 06/27/22 Christiano Cardenas, FUEL DISTRIBUTION SYSTEM OPERATOR.FEED ADVISER [address] [facility] [place] [address] Nurse Practitioner Hematology/Oncology 06/27/22 Umer Dale, RN [address] [facility] [place] [address] Specialty Waiter/Waitress Hematology/Oncology 06/27/22 [employer] Relationship Specialty Start Date End Date Arline Orosco MD PCP - General Family Medicine 06/02/11 Dawna Patrick Urology 02/10/14 Jose Francisco Broussard MD [address] [facility] [place] [address] Physician Hematology/Oncology 06/27/22 Christiano Cardenas, FUEL DISTRIBUTION SYSTEM OPERATOR.FEED ADVISER [address] [facility] [place] [address] Nurse Practitioner Hematology/Oncology 06/27/22 Umer Dale, RN [address] [facility] [place] [address] Specialty Waiter/Waitress Hematology/Oncology 06/27/22 Team Status: Inactive Member Role Status Dates Arline Orosco MD Primary Care Provider Active Start: November 14, 2023 End: November 14, 2023 Clarence Gregory MD Attending Provider Active S tart: November 14, 2023 End: November 14, 2023 [employer] Relationship Specialty Start Date End Date Arline Orosco MD PCP - General Family Medicine 06/02/11 Dawna Patrick Urology 02/10/14 Jose Francisco Broussard MD [address] [facility] [place] [address] Physician Hematology/Oncology 06/27/22 Christiano Cardenas, FUEL DISTRIBUTION SYSTEM OPERATOR.FEED ADVISER [address] [facility] [place] [address] Nurse Practitioner Hematology/Oncology 06/27/22 Umer Dale, HITESH [address] [facility] [place] [address] Specialty Waiter/Waitress Hematology/Oncology 06/27/22 [employer] Relationship Specialty Start Date End Date Arline Orosco MD PCP - General Family Medicine 06/02/11 Dawna Patrick Urology 02/10/14 Jose Francisco Broussard MD [address] [facility] [place] [address] Physician Hematology/Oncology 06/27/22 Christiano Cardenas, CAMILLE.FEED ADVISER [address] [facility] [place] [address] Nurse Practitioner Hematology/Oncology 06/27/22 Umer Dale, HITESH [address] [facility] [place] [address] Specialty Waiter/Waitress Hematology/Oncology 06/27/22 [employer] Relationship Specialty Start Date End Date Arline Orosco MD PCP - General Family Medicine 06/02/11 Dawna Patrick Urology 02/10/14 [employer] Relationship Specialty Start Date End Date Arline Orosco MD PCP - General Family Medicine 06/02/11 Dawna Patrick Urology 02/10/14 Jose Francisco Broussard MD [address] [facility] [place] [address] Physician Hematology/Oncology 06/27/22 Christiano Cardenas, FUEL DISTRIBUTION SYSTEM OPERATOR.FEED ADVISER [address] [facility] [place] [address] Nurse Practitioner Hematology/Oncology 06/27/22 Umer Dale, HITESH [address] [facility] [place] [address] Specialty Waiter/Waitress Hematology/Oncology 06/27/22 Inspector [employer] Relationship Specialty Start Date End Date Arline Orosco MD PCP - General Family Medicine 06/02/11 Dawna Patrick Urology 02/10/14 Jose Francisco Broussard MD [address] [facility] [place] [address] Physician Hematology/Oncology 06/27/22 Christiano Cardenas, CAMILLE.FEED ADVISER [address] [facility] [place] [address] Nurse Practitioner Hematology/Oncology 06/27/22 Umer Dale, HITESH [address] [facility] [place] [address] Specialty Waiter/Waitress Hematology/Oncology 06/27/22 Inspector [employer] Relationship Specialty Start Date End Date Arline Orosco MD PCP - General Family Medicine 06/02/11 Dawna Patrick Urology 02/10/14 Jose Francisco Broussard MD [address] [facility] [place] [address] Physician Hematology/Oncology 06/27/22 Christiano Cardenas, CAMILLE.FEED ADVISER [address] [facility] [place] [address] Nurse Practitioner Hematology/Oncology 06/27/22 Umer Dale, HITESH [address] [facility] [place] [address] Specialty Waiter/Waitress Hematology/Oncology 06/27/22 Inspector [employer] Relationship Specialty Start Date End Date Arline Orosco MD PCP - General Family Medicine 06/02/11 Dawna Patrick Urology 02/10/14 Jose Francisco Broussard MD [address] [place] [address] [place] [address] Physician Hematology/Oncology 06/27/22 Christiano Cardenas APRN.FEED ADVISER [address] [place] [address] [place] [address] Nurse Practitioner Hematology/Oncology 06/27/22 Umer Dale, RN [address] [facility] [place] [address] Specialty Waiter/Waitress Hematology/Oncology 06/27/22 [employer] Relationship Specialty Start Date End Date Arline Orosco MD [address] [place] [address] PCP - General Family Medicine 04/26/24 [employer] Relationship Specialty Start Date End Date Arline Orosco MD [address] [place] [address] PCP - General Family Medicine 04/26/24 Team Status: Inactive Member Role Status Dates Arline Orosco MD Primary Care Provider Active Start: May 15, 2024 End: May 15, 2024 Daniel Mina PA-C Attending Provider Active Start: May 15, 2024 End: May 15, 2024 Inspector [employer] Relationship Specialty Start Date End Date Arline Orosco MD PCP - General Family Medicine 06/02/11 Dawna Patrick Urology 02/10/14 Jose Francisco Broussard MD [address] [facility] [place] [address] Physician Hematology/Oncology 06/27/22 Christiano Cardenas APRN.FEED ADVISER [address] [facility] [place] [address] Nurse Practitioner Hematology/Oncology 06/27/22 Umer Dale, HITESH [address] [facility] [place] [address] Specialty Waiter/Waitress Hematology/Oncology 06/27/22 Inspector [employer] Relationship Specialty Start Date End Date Arline [place]rosco MD PCP - General Family Medicine 06/02/11 Dawna Patrick Urology 02/10/14 Jose Francisco Broussard MD [address] [facility] [place] [address] Physician Hematology/Oncology 06/27/22 Christiano Cardenas APRN.FEED ADVISER [address] [facility] [place] [address] Nurse Practitioner Hematology/Oncology 06/27/22 Umer Dale, RN [address] [facility] [place] [address] Specialty Waiter/Waitress Hematology/Oncology 06/27/22 Goals (unrecognized section and content) Goals may be documented in a n alternate sectionNot on filedocumented as of this encounterGoals may be documented in an alternate sectionGoals may be documented in an alternate section No data available for this section Inactive Administered Medications - up to [...] BE BASED ON THE PRIMARY CLINICAL RECORDS. [employer] provides no warranty or guarantee of the accuracy or completeness of information in this document.
[2024-06-12 07:24] VITALS: BP 136/74; PULSE 67; TEMP 36.4; O2SAT 97; BMI 23.6
[2024-06-12] MEDS: 0.9 % SODIUM CHLORIDE 500 ML 50 ML IV (07:39)
[2024-06-12 08:55] VITALS: BP 92/54; PULSE 55; O2SAT 98
[2024-06-12 09:10] VITALS: BP 91/58; PULSE 62; O2SAT 97
[2024-06-12 09:31] VITALS: BP 110/64
== END 2024-06-12 09:43 | disposition home or self-care (01) ==
PROVIDERS: PCP Family Medicine; Visit Provider Surgery
PROC: (CPT 45378; principal; 2024-06-12 08:30)
DX: K59.00 Constipation, unspecified (principal); K57.30 Diverticulosis of large intestine without perforation or abscess without bleeding; I10 Essential (primary) hypertension; E78.00 Pure hypercholesterolemia, unspecified; J44.9 Chronic obstructive pulmonary disease, unspecified; E03.9 Hypothyroidism, unspecified; I71.40 Abdominal aortic aneurysm, without rupture, unspecified; I65.23 Occlusion and stenosis of bilateral carotid arteries; C61 Malignant neoplasm of prostate; C67.9 Malignant neoplasm of bladder, unspecified; Z79.82 Long term (current) use of aspirin; Z80.0 Family history of malignant neoplasm of digestive organs; Z87.891 Personal history of nicotine dependence
CPT/HCPCS: 45378; J2371; J2704

== ENCOUNTER 2024-11-20 10:56 | Outpatient (RCR) | payer MEDICARE, OTHER, SELFPAY | END 2025-01-17 07:44 | disposition home or self-care (01) | LOC: PT 10:56 | PROVIDERS: PCP Family Medicine; Visit Provider Family Medicine | DX: M62.81 Muscle weakness (generalized) (principal) | CPT/HCPCS: 97110; 97112; 97163; 97530 ==

== ENCOUNTER 2024-12-11 12:46 | Outpatient (OUT) | payer MEDICARE, OTHER, SELFPAY ==
--- NOTE | 2024-12-11 12:53 | MR_ITS ---
The [address] [address] Patient Name: JM BARROW MRN: [id number] date: 1945 Sex: M Assigned Patient Location: MRI Current Patient Location: MRI Accession/Order Number: [id number] Exam Date: 12/11/2024 13:56 Report Date: 12/11/2024 14:02 At the request of: ARLINE OROS[place] MD Procedure: MR head/brain wo con EXAMINATION: MRI OF THE BRAIN WITHOUT CONTRAST CLINICAL HISTORY: Chronic headaches for 3 months. COMPARISON: None TECHNIQUE: Multiecho, multiplanar imaging of the brain was performed without enhancement. FINDINGS: No evidence of restricted diffusion is an diffusion-weighted imaging. No evidence of blood products are seen on T2 Star imaging. Cortical atrophy with moderately severe chronic microvascular ischemic changes which extend into the yohana and cerebellum. Medulla appears unremarkable. Midbrain appears unremarkable. Intraorbital contents appear grossly unremarkable. Small polyp versus mucous retention cysts involving the maxillary sinuses. MR/MR head/brain wo con IMPRESSION: NO ACUTE PROCESS. CORTICAL ATROPHY WITH MODERATELY SEVERE CHRONIC MICROVASCULAR ISCHEMIC CHANGES. Impression dictated by: Yoel Hagan Jr., D.O. 12/11/2024 2:02 PM Dictation Location: [place] [address] Electronically authenticated by: [id number] Y Date: 12/11/2024 14:02
== END 2024-12-11 12:47 | disposition home or self-care (01) ==
LOC: MRI 12:47
PROVIDERS: PCP Family Medicine; Visit Provider Family Medicine
DX: R51.9 Headache, unspecified (principal); G31.89 Other specified degenerative diseases of nervous system
CPT/HCPCS: 70551